=== PATIENT | male | born 1960 | race Caucasian/White ===

== ENCOUNTER → 2016-10-18 | Outpatient (CLI) | payer MEDICARE ==
--- NOTE | 2016-10-18 16:59 | PN ---
DATE OF SERVICE: 10/18/2016 This patient is a 56-year-old gentleman who has been followed in the sleep center for treatment of severe obstructive sleep apnea/hypopnea syndrome. The last time I saw the patient was about 3 years ago. Patient lost weight; his weight is down from 291 pounds to 264 pounds. He continues to use his BiPAP equipment every night for the whole night. I reviewed his previous results of titration and recommendation. I recommended BiPAP 22/18, which is in quite a high range, but the patient feels comfortable with the machine, and according to his there is no snoring with the machine. Walford Sleepiness Scale today is 8, which is within acceptable range. MEDICATIONS: 1. Glucophage. 2. Lopressor. 3. Venlafaxine. 4. Pepcid. 5. Xarelto. 6. Catapres. 7. Vasotec. 8. Reglan. 9. Glucotrol. 10. Lipitor. 11. Januvia. 12. Claritin ( ) PHYSICAL EXAMINATION: Patient in no distress. VITAL SIGNS: BP 141/72, HR 94, RR 16. Height 5 feet 8 inches. Weight 264. BMI 40.0. Neck 18-3/4 inches in circumference. Temperature 98.8. Oxygen saturation at room air 90%. HEENT: PERRLA, EOMI. LUNGS: Clear. HEART: S1, S2 regular. ABDOMEN: Obese, soft, nontender. EXTREMITIES: No edema. Patient walks with a cane. IMPRESSION: 1. Severe obstructive sleep apnea/hypopnea syndrome, clinically controlled with BiPAP at the pressure 22/18 cm of water. 2. Obesity. Patient has lost weight of about 27 pounds, but continues to use his BiPAP equipment without problems. 3. Diabetes mellitus. 4. Status post stroke. 5. Hypertension. 6. Hyperlipidemia. 7. Allergies. 8. History of smoking for about 40 pack-years. 9. Occasional cough, but rarely. PLAN: 1. Continue treatment with BiPAP every night for the whole night. 2. Continue losing weight. 3. Sleep hygiene with regular time in bed for at least 8 hours. 4. No driving if feeling any sleepiness. 5. Prescription for all necessary BiPAP supplies, including mask, tube, filters. Thank you very much for allowing me to participate in the management of your patient. Sincerely, Robb Frederick MD, PhD, FAASM. Diplomat of [place] [employer], Sleep Medicine Board by [employer], [place] [employer]
== END | disposition home or self-care (01) ==

== ENCOUNTER → 2017-11-14 | Outpatient (CLI) | payer MEDICARE ==
--- NOTE | 2017-11-14 15:18 | PN ---
PROGRESS NOTE DATE OF SERVICE: 11/14/2017 57-year-old gentleman has been followed in Sleep Center for treatment of obstructive sleep apnea-hypopnea syndrome. The patient continued to use his BiPAP equipment , but recently started to complain that the pressure is too high. Before pressure was 22/18, but then it was changed to 19/15. Counselor Sleepiness Scale today is 17. I checked the patient's BiPAP unit. The patient basically did not use it for the last month. BiPAP pressure in the machine 19/15 cm of water. Apnea-hypopnea index reading 11.6. The patient changed his weight from 264 pounds down to 249 pounds, which is 15 pounds less than before. MEDICATIONS: Glucophage, Lopressor, venlafaxine, Pepcid, Xarelto, Catapres, Vasotec, Reglan, Glucotrol, Lipitor, Januvia, Claritin. PHYSICAL EXAM: GENERAL Patient in no distress VITAL SIGNS BP 142/72, HR 84, RR 16, height 5 feet 8 inches, weight 249, body mass index 37.8, temperature 97.9, oxygen saturation at room air 94%. HELYNETTE PERYANY, EOMI, evaluation of oropharynx showed low position of soft palate. NECK Supple, no JVD. Thyroid is not palpable. LUNGS Clear to percussion and to auscultation. Good air exchange. No wheezing or rhonchi. HEART S1, S2 regular. No murmurs, gallops, or rubs. ABDOMEN Obese. Soft and nontender. Bowel sounds are present. No organomegaly appreciated. EXTREMITIES No clubbing or cyanosis. RAZOR SHARPENER Awake, alert, and oriented X3. Cranial nerves 2 to 7 intact. There is no fasciculation or atrophy. noted. No focal deficits observed. IMPRESSION: 1. Obstructive sleep apnea-hypopnea syndrome. Recently patient had some problem with BiPAP secondary to difficulties to use equipment because of the pressure. He feels that the pressure is too high and he lost about 15 pounds of weight. With losing weight pressure may need to be decreased. At the same time with the present pressure 19/15, apnea-hypopnea index is 11.6. 3. Obesity. 4. Diabetes mellitus. 5. Status post stroke. 6. Hypertension. 7. Hyperlipidemia. 8. Allergy. 9. History of smoking for more than 40 pack years. PLAN: 1. I changed regimen over the machine to auto regimen with the inspiratory maximal pressure of 20 and end-expiratory minimal pressure 9. 2. Patient will continue to use his BiPAP equipment every night. 3. Losing weight. 4. Sleep hygiene with regular time in bed for at least 8 hours. 5. Patient does not drive since stroke. 6. Followup visit in 3 months. If patient still has problems, we may consider to repeat BiPAP titration. Thank you very much for allowing me to participate in management of your patient. Sincerely, Robb Frederick MD, PhD, FAASM Diplomat of [place] [employer] [place] [employer] Tax Examiner of [facility] [place] MMODL / PIERREN: [id number] / [email or web address]
== END | disposition home or self-care (01) ==
LOC: SLEEP 13:41
PROVIDERS: ATTEND Internal Medicine
DX: G47.33 Obstructive sleep apnea (adult) (pediatric) (principal); E66.9 Obesity, unspecified; I10 Essential (primary) hypertension; E78.5 Hyperlipidemia, unspecified; E11.9 Type 2 diabetes mellitus without complications; T78.40XA Allergy, unspecified, initial encounter; Z99.89 Dependence on other enabling machines and devices; Z86.73 Personal history of transient ischemic attack (TIA), and cerebral infarction without residual deficits; Z87.891 Personal history of nicotine dependence; Z79.84 Long term (current) use of oral hypoglycemic drugs; Z79.899 Other long term (current) drug therapy; Z79.01 Long term (current) use of anticoagulants

== ENCOUNTER → 2020-05-02 | Outpatient (CLI) | payer MEDICARE ==
--- NOTE | 2020-05-02 13:37 | US ---
EXAMINATION TYPE: US kidneys/renal and bladder DATE OF EXAM: 05/02/2020 COMPARISON: NONE CLINICAL HISTORY: N18.3 CKD. EXAM MEASUREMENTS: Right Kidney: 11.1 x 4.9 x 5.1 cm Left Kidney: 11.0 x 6.2 x 6.5 cm Right Kidney: No hydronephrosis or masses seen Left Kidney: Severe hydronephrosis visualized Bladder: Not fully distended, wnl as visualized Bilateral Jets seen: Right jet visualized There is hydronephrosis in the left kidney. No nephrolithiasis is seen. No masses are identified. The urinary bladder is anechoic. Right ureteral jet seen. IMPRESSION: 1. Marked left hydronephrosis.
== END | disposition home or self-care (01) ==
LOC: RADUSWWP 12:28
PROVIDERS: ATTEND Family Medicine
DX: N13.30 Unspecified hydronephrosis (principal); N18.3 Chronic kidney disease, stage 3 (moderate)
CPT/HCPCS: 76770

== ENCOUNTER → 2020-05-12 | Outpatient (CLI) | payer MEDICARE, OTHER ==
--- NOTE | 2020-05-12 13:35 | CT ---
EXAMINATION TYPE: CT abdomen pelvis wo con DATE OF EXAM: 05/12/2020 COMPARISON: Ultrasound kidneys 05/02/2020. CT abdomen pelvis 10/29/2012. HISTORY: Hydronephrosis TECHNIQUE: Helical acquisition of images was performed from the lung bases through the pelvis. FINDINGS: LUNG BASES: No focal consolidation or pleural effusion. Cardiac size normal. Calcified coronary arter y disease. No pericardial effusion. LIVER: Mildly fatty liver. Hepatomegaly measuring 21 cm in cranial caudal dimension. BILIARY SYSTEM: Cholelithiasis. No intrahepatic or extrahepatic biliary ductal dilatation. PANCREAS: No peripancreatic stranding. SPLEEN: Motion artifact. Not enlarged. ADRENALS: Normal. KIDNEYS: Severe left hydronephrosis and proximal hydroureter. Mild perinephric inflammatory stranding on the left. There is an obstructing 12 mm calculus within the left proximal ureter. No right hydron ephrosis. BOWEL: No evidence of bowel obstruction. PERITONEUM: No free air is visualized. No free fluid. Fat-containing supraumbilical midline ventral hernia. Herniorrhaphy changes of the left abdominal wall. ADENOPATHY: No lymphadenopathy. PELVIS: Urinary bladder incompletely distended. No calculi within the bladder. VASCULATURE: No abdominal aortic aneurysm. Marked calcified atherosclerotic disease. MUSCULOSKELETAL: Intramuscular lipoma of the right buttocks redemonstrated. Degenerative changes of the spine. Osteopenia. IMPRESSION: 1. Obstructing 12 mm left proximal ureteral calculus. Severe left hydronephrosis redemonstrated from 05/02/2020 ultrasound comparison. 2. Cholelithiasis. 3. Mild fatty liver and hepatomegaly. Dr. Vandana Scott discussed findings with Brianne Mazariegos MA at Dr. Zakia Gonzalez's office via the ph one on 05/12/2020 at 1:30 PM, and results were acknowledged.
== END | disposition home or self-care (01) ==
LOC: RADCTMAIN 12:35
PROVIDERS: ATTEND Urology
DX: N13.2 Hydronephrosis with renal and ureteral calculous obstruction (principal); K80.20 Calculus of gallbladder without cholecystitis without obstruction; K76.0 Fatty (change of) liver, not elsewhere classified; R16.0 Hepatomegaly, not elsewhere classified
CPT/HCPCS: 74176

== ENCOUNTER → 2020-05-26 | Outpatient (CLI) | payer MEDICARE ==
[2020-05-26 13:58] LABS: Anisocytosis Slight; Basophils % (A) 0 %; Eosinophils # (A) 0.2 k/uL (0-0.7); Eosinophils % (A) 2 %; HCT 37.7 % (39.0-53.0); HGB 11.7 gm/dL (13.0-17.5); Hypochromasia Slight; Lymphocytes # (A) 1.7 k/uL (1.0-4.8); Lymphocytes % (A) 20 %; MCH 32.1 pg (25.0-35.0); MCHC 31.1 g/dL (31.0-37.0); MCV 103.4 fL (80.0-100.0); Macrocytosis Moderate; Mean Platelet Volume 7.1; Monocytes # (A) 0.4 k/uL (0-1.0); Monocytes % (A) 5 %; Neutrophils # (A) 6.1 k/uL (1.3-7.7); Neutrophils % (A) 70 %; Platelet Count 351 k/uL (150-450); RBC 3.65 m/uL (4.30-5.90); WBC 8.6 k/uL (3.8-10.6)
[2020-05-26 14:02] LABS: Appearance,Urine Clear (Clear); Bilirubin,Urine Negative (Negative); Blood,Urine Trace (Negative); Color,Urine Light Yellow; Glucose,Urine (UA) Negative (Negative); Ketones,Urine Negative (Negative); Leukocyte Esterase,Urine Negative (Negative); Nitrite,Urine Negative (Negative); PH, Urine 6.5 (5.0-8.0); Protein,Urine Negative (Negative); RBC,Urine 2 /hpf (0-5); Urobilinogen,Urine <2.0 mg/dL (<2.0); WBC,Urine <1 /hpf (0-5)
[2020-05-26 14:14] LABS: Calcium 8.5 mg/dL (8.4-10.2)
[2020-05-26 14:44] LABS: Potassium 6.4 mmol/L (3.5-5.1)
== END | disposition home or self-care (01) ==
LOC: LABPAT 11:52
PROVIDERS: ATTEND Urology
DX: Z01.818 Encounter for other preprocedural examination (principal); N20.1 Calculus of ureter; E11.9 Type 2 diabetes mellitus without complications; R58 Hemorrhage, not elsewhere classified; R31.29 Other microscopic hematuria
CPT/HCPCS: 36415; 80048; 81001; 85025; 87086

== ENCOUNTER 2020-06-02 10:09 | Day surgery (SDC) | payer MEDICARE ==
[2020-05-26 15:29] VITALS: BMI 35.9
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
[~2020-06-02 10:09] MED LIST: DEXAMETHASONE SOD PHOSPHATE 10 MG/ML 1 ML VIAL IV ONE; HYDROmorphone 0.5 MG/0.5 ML SYRINGE IVP PRN; LACTATED RINGERS 1,000 ML IV SCH; ONDANSETRON 4 MG/2 ML VIAL IVP ONE
[2020-06-02] MEDS ORDERED: ONDANSETRON 4 MG/2 ML VIAL ONE (11:06)
--- NOTE | 2020-06-02 11:19 | XR ---
EXAMINATION TYPE: XR KUB DATE OF EXAM: 06/02/2020 11:05 AM CLINICAL HISTORY: Kidney stones. Prelithotripsy. TECHNIQUE: Single supine KUB image of the abdomen is obtained. COMPARISON: Most recent CT May 12, 2020. FINDINGS: Stable position of obstructing 16 mm calculus left L3-L4 level in the proximal left ureter. Redemonstration of calcified gallstones right upper quadrant. Overall nonobstructive bowel gas pattern. Some vascular calcification throughout the pelvis is redemo nstrated. IMPRESSION: As above.
[2020-06-02 11:27] LABS: Glucose,Whole Blood 133 mg/dL (75-99)
[2020-06-02] MEDS ORDERED: LIDOCAINE 1% (10MG/ML) FOR IV START INTRADERMA ONE (11:30)
[2020-06-02] MEDS ORDERED: INSULIN REGULAR 100 UNIT/ML VIAL IV ONE (12:10)
[2020-06-02] MEDS ORDERED: DEXTROSE 50% SYRINGE 50 ML IVP ONE (12:10)
[2020-06-02] MEDS ORDERED: ALBUTEROL NEB (CONC) 2.5 MG/0.5 ML INHALATION ONE (12:10)
[2020-06-02 12:23] LABS: Prothrombin Time 10.3 sec (9.0-12.0)
[2020-06-02] MEDS ORDERED: CALCIUM GLUCONATE 1 GM in SODIUM CHLORIDE 0.9% 100 ML IVPB ONE (12:30)
[2020-06-02 12:51] LABS: Glucose,Whole Blood 245 mg/dL (75-99)
[2020-06-02 16:23] LABS: Glucose,Whole Blood 177 mg/dL (75-99)
[2020-06-02] MEDS ORDERED: LABETALOL 5 MG/ML VIAL MDV ONE (17:47)
[2020-06-02] MEDS ORDERED: LIDOCAINE 1% INJ 10MG/ML (20 ML MDV) ONE (17:47)
[2020-06-02] MEDS ORDERED: ROCURONIUM BROMIDE 10 MG/ML 5 ML VIAL IV ONE (17:47)
[2020-06-02] MEDS ORDERED: PROPOFOL 10 MG/ML 20 ML VIAL IV ONE (17:47)
[2020-06-02] MEDS ORDERED: HYDROmorphone (PF) 1 MG/ML ONE (17:47)
[2020-06-02] MEDS ORDERED: SUCCINYLCHOLINE CHLORIDE VIAL 200 MG/10 ML VIAL IV ONE (17:47)
[2020-06-02] MEDS ORDERED: fentaNYL (PF) 50 MCG/ML 2 ML AMP ONE (17:47)
[2020-06-02] MEDS ORDERED: MIDAZOLAM 2 MG/2 ML VIAL ONE (17:47)
[2020-06-02] MEDS ORDERED: IOPAMIDOL-300 50ML BTL MISCELLANE ONE ×2 (18:09)
[2020-06-02 19:00] LABS: Glucose,Whole Blood 204 mg/dL (75-99)
--- NOTE | 2020-06-02 19:16 | P.OP ---
Date of Procedure: 06/02/20 Preoperative Diagnosis: Left ureteral calculi Postoperative Diagnosis: Same Procedure(s) Performed: Cystoscopy, left ureteroscopy, retrograde pyelogram, stent placement Implants: 6-Algerian by 26 cm stent Anesthesia: ANA Surgeon: Armando Benítez Estimated Blood Loss (ml): 5 Pathology: none sent Condition: stable Disposition: PACU Indications for Procedure: Mr Juárez is 60 yo male with hx of 1.2 cm left sided ureteral stone, I disussed with him surgical option including ureteroscopy, ESWL and PCNL. He agreed to proceed with left sided ureteroscopy. . risk and benefit of the surgery were discussed with her. I discussed the risk of bleeding, infection and injury to the ureter. I also discussed risk from anesthesia. He understood all risks and agreed to proceed Operative Findings: Stone and the mid ureter completely impacted, very little contrast seen past the stone, pinpoint ureteral opening at the site of stone impaction Description of Procedure: Patient was brought to the operating room, general anesthesia was induced. He was prepped and draped in sterile fashion a placemed in dorsal lithotomy position. Cystoscopy fitted with 21 sheath was inserted per urethra, cystoscopy was performed showed no abnormality within the bladder. Attention was then carried to the left ureteral orifice which was intubated with a open- ended catheter, retrograde pyelogram was performed which showed a filling defect at the level of the stone and no contrast was seen past the stone. At this time the catheter was removed and a semirigid ureteroscope was inserted, and was advanced up the left ureteral orifice, and into the site of stone impaction. Of note that area was only a pinpoint ureteral opening. I attempted to pass a sensor wire but resistance was met at the stone. Reterograde pyelogram was performed through the scope and some contrast was seen past the stone. At this time I switched to a glide wire and I was able to advance the glide wire past the stone and into the renal pelvis. The ureteroscope was withdrawn with the wire in place. The 6-Algerian open-ended catheter was advanced over the wire and passed the stone. Next the sensor wire was exchanged for the Glidewire. At t his time a 6-Algerian by 26 cm stent which was passed over the wire, the proximal curl was visualized on fluoroscopy and distal curl was visualized using the cystoscope. there was return of cloudy urine that was noticed from the stent. a this time the patient was awakened from anesthesia and taken recovery in stable condition
[2020-06-02] MEDS ORDERED: HYDROcodone/APAP 5-325MG 1 EACH TAB PO PRN (19:45)
[2020-06-02 20:45] VITALS: RESP 18
[2020-06-02 21:09] LABS: Glucose,Whole Blood 237 mg/dL (75-99)
[2020-06-02 22:32] VITALS: BP 145/74; PULSE 76; TEMP 97.8
--- NOTE | 2020-06-03 08:44 | FL ---
Fluoroscopy INDICATION: Pain FINDINGS: Fluoroscopy time: 1 minute 22 seconds. Images obtained: 1. IMPRESSIONS: 1. Documentation of fluoroscopy.
== END 2020-06-02 22:20 | disposition home or self-care (01) ==
LOC: OR 10:09 → 1SOBS 18:53 → OR 22:20
PROVIDERS: ATTEND Urology
DX: N20.1 Calculus of ureter (principal); I48.91 Unspecified atrial fibrillation; J44.9 Chronic obstructive pulmonary disease, unspecified; E11.9 Type 2 diabetes mellitus without complications; K21.9 Gastro-esophageal reflux disease without esophagitis; E78.5 Hyperlipidemia, unspecified; I10 Essential (primary) hypertension; R41.3 Other amnesia; G47.30 Sleep apnea, unspecified; Z99.89 Dependence on other enabling machines and devices; I69.398 Other sequelae of cerebral infarction; H54.61 Unqualified visual loss, right eye, normal vision left eye; R26.81 Unsteadiness on feet; K44.9 Diaphragmatic hernia without obstruction or gangrene; Z87.442 Personal history of urinary calculi; N28.9 Disorder of kidney and ureter, unspecified; Z86.14 Personal history of Methicillin resistant Staphylococcus aureus infection; Z98.42 Cataract extraction status, left eye; Z98.41 Cataract extraction status, right eye; F17.200 Nicotine dependence, unspecified, uncomplicated; Z79.84 Long term (current) use of oral hypoglycemic drugs; Z79.02 Long term (current) use of antithrombotics/antiplatelets; Z79.899 Other long term (current) drug therapy; E78.49 Other hyperlipidemia; Z98.890 Other specified postprocedural states
CPT/HCPCS: 52332; 94640; 84132; 85610; 74420; 74018; C2625; C1758; C1769; J2250; J0330; J1100; J0690; J2405; J2001; J3010; J1170; J0610; J2704; Q9967; 93005

== ENCOUNTER 2020-06-30 12:25 | Observation (INO) | payer MEDICARE ==
[2020-06-29 11:42] VITALS: BMI 35.9
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
[~2020-06-30 12:25] MED LIST changes: -LACTATED RINGERS 1,000 ML IV SCH; +LIDOCAINE 1% (10MG/ML) FOR IV START INTRADERMA PRN; -ONDANSETRON 4 MG/2 ML VIAL IVP ONE; +ONDANSETRON 4 MG/2 ML VIAL IVP PRN
--- NOTE | 2020-06-30 13:02 | XR ---
EXAMINATION TYPE: XR KUB DATE OF EXAM: 06/30/2020 12:41 PM CLINICAL HISTORY: Hydronephrosis and left ureter stent. TECHNIQUE: Two supine KUB images of the abdomen are obtained. COMPARISON: Abdominal x-ray June 02, 2020. CT abdomen and pelvis May 12, 2020. FINDINGS: New double-J left ureter stent. There is persistent 17 mm calculus proximal left ureter pro jecting near superior L4 margin perhaps slight inferior migration from prior studies. No new renal ca lculi. Stable large gallbladder calculi. Vascular calcification left pelvis. Overall nonobstructive bowel gas pattern. Visualized lung bases a re clear. IMPRESSION: As above..
[2020-06-30 13:46] LABS: Glucose,Whole Blood 115 mg/dL (75-99)
[2020-06-30] MEDS: LACTATED RINGERS 1,000 ML IV SCH (13:48)
[2020-06-30] MEDS ORDERED: DEXTROSE 50% SYRINGE 50 ML IVP ONE (14:50)
[2020-06-30] MEDS ORDERED: INSULIN REGULAR 100 UNIT/ML VIAL IV ONE (15:02)
[2020-06-30 15:23] LABS: Glucose,Whole Blood 190 mg/dL (75-99)
[2020-06-30] MEDS ORDERED: SODIUM CHLORIDE 0.9% 1,000 ML IV ONE ×2 (16:13)
[2020-06-30] MEDS ORDERED: NEOSTIGMINE 1 MG/ML 10 ML VIAL ONE (16:17)
[2020-06-30] MEDS ORDERED: MIDAZOLAM 2 MG/2 ML VIAL ONE (16:17)
[2020-06-30] MEDS ORDERED: GLYCOPYRROLATE 0.2 MG/ML 2 ML VIAL ONE (16:17)
[2020-06-30] MEDS ORDERED: LABETALOL 5 MG/ML VIAL MDV ONE (16:17)
[2020-06-30] MEDS ORDERED: LIDOCAINE 1% INJ 10MG/ML (20 ML MDV) ONE (16:17)
[2020-06-30] MEDS ORDERED: PROPOFOL 10 MG/ML 20 ML VIAL IV ONE (16:17)
[2020-06-30] MEDS ORDERED: ROCURONIUM 10 MG/ML (5 ML VIAL) IV ONE (16:17)
[2020-06-30] MEDS ORDERED: fentaNYL (PF) 50 MCG/ML 2 ML AMP ONE (16:17)
[2020-06-30] MEDS ORDERED: IOPAMIDOL-370 50ML BTL MISCELLANE ONE ×2 (17:19)
[2020-06-30] MEDS ORDERED: HYDROcodone/APAP 5-325MG 1 EACH TAB PO PRN (18:34)
--- NOTE | 2020-06-30 18:34 | P.OP ---
Date of Procedure: 06/30/20 Preoperative Diagnosis: Left ureteral calculi Postoperative Diagnosis: Left ureteral calculi/Left ureteral stricture Procedure(s) Performed: Cystoscopy, left ureteroscopy, holmium laser lithotripsy , stent exchange Implants: 6-Polish by 26 cm stent Anesthesia: ANA Surgeon: Armando Benítez Estimated Blood Loss (ml): 5 Pathology: none sent Condition: stable Disposition: PACU Indications for Procedure: Mr Juárez is 60 yo male with hx of 1.6 cm left sided proximal ureteral stone, He is S/P sent placement secondary to impacted stone. He presents today with left sided ureteroscopy. Discussed risk of bleeding, infection, injury to the ureter. Also discussed risk from anesthesia. She understood all risks and agreed to proceed with left sided ureteroscopy with holmium laser, stone basketting and stent placement Operative Findings: Large left-sided proximal stone, impacted within the ureter, significant tissues edema and scarring surrounding the stone Description of Procedure: Patient was brought to the operating room, general anesthesia was induced. He was prepped and draped in sterile fashion and placed in dorsal lithotomy position. Cystoscope fitted with a 21 sheath was inserted per urethra. Cystoscopy was performed showed no abnormality. Attention was then carried to the left ureteral orifice, the stent was grasped using the stent grasper and pulled to the meatus. Next a sensor wire was advanced through the stent the stent was removed with the wire in place. Next a semirigid ureteroscope was inserted per urethra and advanced up the left ureteral orifice, significant scar ring and edema was noticed multiple attempts were used to try to advance the ureteroscope but was unable to secondary to the impacted stone. At this time a second sensor wire was advanced through the ureteroscope, I attempted to pass a second wire up into the renal pelvis but resistance was met at the impaction site. At this time the wire was advanced to the stone impaction site and the ureteroscope was withdrawn with the wire in place. Next the 11-13 Fr access sheath was passed over the wire and distally to the stone under fluoroscopy. Next a flexible ureteroscope was inserted through the access sheath. Ureteroscopy was performed which showed similar findings which was significant ureteral edema and thick scar in the ureter. At this time using the holmium laser I attempted to gently laser some of the edematous tissue to see if the stone could be identified, the stone could be felt with the laser fiber but there was significant edema which made visualization limited, additionally the lumen could not be clearly defined given the impaction and the edema. Given this finding decision was made to abort the case and proceed with stent placement. Retrograde pyelogram was performed which showed some contrast going past the stone and into the renal pelvis, which confirm that the wire was indeed in the kidney. There was evidence of contrast extravasation at the site of impaction. A pullback ureteroscopy was performed which showed no injury to the ureter or any ureteral stones. Next a 6-Polish by 26 cm stent was passed over the wire, the proximal curl was visualized on fluoroscopy and distal curl was visualized using the cystoscope. The patient tolerated the procedure well and was taken to PACU in stable condition . Given the impacted stone, he will need a PCNL to address his stone
[2020-06-30] MEDS ORDERED: SODIUM CHLORIDE 0.9% 1,000 ML IV SCH (18:45)
[2020-06-30] MEDS ORDERED: LEVOFLOXACIN 500MG-D5W PMX 500 MG in DEXTROSE/WATER 1 100ML.BAG IVPB ONE (19:00)
[2020-06-30 20:04] LABS: Glucose,Whole Blood 250 mg/dL (75-99)
[2020-06-30] MEDS: cloNIDine HCL 0.1 MG TAB PO SCH (20:27)
[2020-06-30] MEDS: FAMOTIDINE 20 MG TAB PO SCH (20:27)
[2020-06-30] MEDS: METOPROLOL TARTRATE 12.5 MG TAB PO SCH (20:27)
[2020-06-30] MEDS: cilostazoL 100 MG TAB PO SCH (20:28)
[2020-06-30] MEDS: VENLAFAXINE HCL 75 MG TAB PO SCH (20:28)
[2020-06-30 20:43] LABS: Calcium 8.1 mg/dL (8.4-10.2)
[2020-06-30 20:58] LABS: Potassium 6.3 mmol/L (3.5-5.1)
[2020-06-30] MEDS ORDERED: glipiZIDE 10 MG TAB PO SCH (21:00)
[2020-06-30] MEDS ORDERED: ATORVASTATIN 80 MG TAB PO SCH (21:00)
[2020-06-30] MEDS ORDERED: SODIUM POLYSTYRENE SULFONATE 15 GM/60 ML BOTTLE PO STA (21:54)
[2020-06-30] MEDS ORDERED: CALCIUM GLUCONATE 1 GM in SODIUM CHLORIDE 0.9% 100 ML IVPB ONE (21:54)
[2020-07-01] MEDS ORDERED: INSULIN DETEMIR (LEVEMIR) 100 UNIT/ML SYR SQ SCH (00:29)
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
[2020-07-01 01:26] LABS: Glucose,Whole Blood 195 mg/dL (75-99)
[2020-07-01 03:22] LABS: Calcium 8.2 mg/dL (8.4-10.2)
[2020-07-01 03:24] LABS: Potassium 6.1 mmol/L (3.5-5.1)
[2020-07-01] MEDS: LACTATED RINGERS 1,000 ML IV SCH (05:22)
[2020-07-01 06:35] LABS: Glucose,Whole Blood 137 mg/dL (75-99)
[2020-07-01] MEDS ORDERED: INSULIN ASPART (NovoLOG) 100 UNIT/ML VIAL SQ SCH (07:30)
[2020-07-01 08:18] VITALS: BP 156/88; PULSE 87; RESP 20; TEMP 98.9
--- NOTE | 2020-07-01 08:26 | FL ---
Fluoroscopy HISTORY: Left renal stone 2 minute 16 seconds fluoroscopy time supplied to the referring clinician. 2 intraoperative C-arm coby ges document the procedure. See dictated report from urology.
[2020-07-01] MEDS ORDERED: lisinopriL 10 MG TAB PO SCH (09:00)
[2020-07-01] MEDS ORDERED: TAMSULOSIN 0.4 MG CAP.ER.24H PO SCH (09:00)
[2020-07-01] MEDS: cilostazoL 100 MG TAB PO SCH (09:00)
[2020-07-01] MEDS: cloNIDine HCL 0.1 MG TAB PO SCH (09:01)
[2020-07-01] MEDS: FAMOTIDINE 20 MG TAB PO SCH (09:02)
[2020-07-01] MEDS: METOPROLOL TARTRATE 12.5 MG TAB PO SCH (09:02)
[2020-07-01] MEDS: VENLAFAXINE HCL 75 MG TAB PO SCH (09:04)
[2020-07-01 09:18] LABS: Calcium 8.3 mg/dL (8.4-10.2); Potassium 5.3 mmol/L (3.5-5.1)
--- NOTE | 2020-07-01 09:48 | P.PN ---
Subjective Progress Note Date: 07/01/20 Patient is doing well this morning. No acute events noted by nursing staff overnight. Objective - Vital Signs Vital signs: Vital Signs Temp 98.9 F 07/01/20 08:17 Pulse 87 07/01/20 08:17 Resp 20 07/01/20 08:17 BP 156/88 07/01/20 08:17 Pulse Ox 92 L 07/01/20 08:17 Intake & Output 06/30/20 07/01/20 07/01/20 18:59 06:59 18:59 Intake Total 1750 1210 Output Total 10 900 200 Balance 1740 310 -200 Weight 112.7 kg Intake: IV 950 150 Intake, IV Titration 800 800 Amount Sodium Chloride 0.9% 1, 800 800 000 ml @ 50 mls/hr IV . Q20H [facility] Rx#:[id number] Oral 260 Output: Urine 900 200 Estimated Blood Loss 10 Other: Voiding Method Urinal Urinal # Voids 175 2 - Exam General: The patient is awake and alert, in no distress Eye: there is normal conjunctiva bilaterally. Neck: The neck is supple, there is no JVD. Cardiovascular: Normal S1-S2, no S3-S4, no murmurs. Respiratory: Lungs clear to auscultation bilaterally Gastrointestinal: Abdomen is soft, nontender Musculoskeletal: There is no pedal edema. Neurological:. Speech is normal. Skin: Skin is warm and dry - Labs CBC & Chem 7: 07/01/20 08:46 Labs: Abnormal Lab Results - Last 24 Hours (Table) 06/30/20 06/30/20 06/30/20 Range/Units 13:45 13:47 15:21 Sodium (137-145) mmol/L Potassium 5.9 H (3.5-5.1) mmol/L Creatinine (0.66-1.25) mg/dL Glucose (74-99) mg/dL POC Glucose (mg/dL) 115 H 190 H (75-99) mg/dL Calcium (8.4-10.2) mg/dL 06/30/20 06/30/20 06/30/20 Range/Units 15:28 20:03 20:12 Sodium 136 L (137-145) mmol/L Potassium 5.4 H 6.3 H* (3.5-5.1) mmol/L Creatinine 2.20 H (0.66-1.25) mg/dL Glucose 265 H (74-99) mg/dL POC Glucose (mg/dL) 250 H (75-99) mg/dL Calcium 8.1 L (8.4-10.2) mg/dL 07/01/20 07/01/20 07/01/20 Range/Units 01:23 02:38 06:34 Sodium 133 L (137-145) mmol/L Potassium 6.1 H* (3.5-5.1) mmol/L Creatinine 2.13 H (0.66-1.25) mg/dL Glucose 193 H (74-99) mg/dL POC Glucose (mg/dL) 195 H 137 H (75-99) mg/dL Calcium 8.2 L (8.4-10.2) mg/dL 07/01/20 Range/Units 08:46 Sodium 135 L (137-145) mmol/L Potassium 5.3 H (3.5-5.1) mmol/L Creatinine 2.04 H (0.66-1.25) mg/dL Glucose (74-99) mg/dL POC Glucose (mg/dL) (75-99) mg/dL Calcium 8.3 L (8.4-10.2) mg/dL Assessment and Plan Assessment: The patient is a 60-year-old male with a PMH of chronic kidney disease, type II DM, hypertension, hyperlipidemia, COPD, mild cognitive impairment, and history of CVA (on Coumadin) who was admitted for scheduled left sided ureteroscopy. The patient has a history of left-sided ureteral calculus and stricture with stent placement who underwent a stent exchange and a laser lithotripsy. Assessment and Plan Plan: Hyperkalemia, chronic, likely secondary to chronic kidney disease -Discontinue ANTONIO inhibitor -Administered Kayexalate -Repeat potassium level 5.3 Type II DM -Resume home medications and follow-up with PCP as directed HTN -C/w Clonidine home dose -Add Norvasc 5 mg daily to his regimen. Patient has enalapril and lisinopril listed on his home medication and both were discontinued secondary to severe hyperkalemia HLD -C/w home lipitor History of stroke on anticoagulation with Coumadin Chronic kidney disease, at baseline -Advised to follow up with nephrology Ureteral stone status post stenting and lithotripsy -As per urology service Patient is medically cleared for discharge home. Discharge planning per primary team
[2020-07-01 11:38] LABS: Glucose,Whole Blood 68 mg/dL (75-99)
[2020-07-01 11:53] LABS: Glucose,Whole Blood 73 mg/dL (75-99)
--- NOTE | 2020-07-01 12:33 | P.DS ---
Providers Attending physician: Armando Benítez MD Consults: 06/30/20 21:16 Consult Physician Stat Consulting Provider: Ketty Colindres Consult Reason/Comments: Hyperkalemia Do you want consulting provider notified?: Yes Primary care physician: Giovanna [facility] Course: Mr Juárez is 60 yo male with hx of right sided ureteral stone, he underwent right sided ureteroscopy, please see op note dated 06/30/20 for surgery details. He was admitted to the hospital post operatively due to hyperkalemia and pain control. Medicine was consulted for hyperkalemia. His repeat K was WNL, he was cleared for discharge. He was discharged home on POD #1. At time of discharge he was tolerating a diet, and pain was controlled Plan - Discharge Summary Discharge Rx Participant: No New Discharge Prescriptions: New amLODIPine [Norvasc] 5 mg PO DAILY #30 tab Cephalexin [Keflex] 500 mg PO Q8HR #15 cap Continue RX: glipiZIDE [Glucotrol] 10 mg PO BID RX: cloNIDine HCL [Catapres] 0.1 mg PO BID RX: Venlafaxine HCl [Effexor] 150 mg PO BID RX: Metoprolol Tartrate [Lopressor] 37.5 mg PO BID RX: Famotidine [Pepcid] 40 mg PO BID RX: Atorvastatin [Lipitor] 80 mg PO HS RX: Furosemide [Lasix] 20 mg PO Q48H RX: Warfarin [Coumadin] 5 mg PO SUMOWETHFRSA RX: cilostazoL [Pletal] 50 mg PO BID RX: Cholecalciferol [Vitamin D3 (25 Mcg = 1000 Iu)] 2,000 unit PO DAILY RX: Magnesium 500 mg PO QAM RX: Tamsulosin [Flomax] 0.4 mg PO DAILY #7 cap Discontinued Enalapril [Vasotec] 5 mg PO QAM lisinopriL [Zestril] 2.5 mg PO DAILY Discharge Medication List RX: Atorvastatin [Lipitor] 80 mg PO HS 04/06/14 [History] RX: Famotidine [Pepcid] 40 mg PO BID 04/06/14 [History] RX: Metoprolol Tartrate [Lopressor] 37.5 mg PO BID 04/06/14 [History] RX: Venlafaxine HCl [Effexor] 150 mg PO BID 04/06/14 [History] RX: cloNIDine HCL [Catapres] 0.1 mg PO BID 04/06/14 [History] RX: glipiZIDE [Glucotrol] 10 mg PO BID 04/06/14 [History] RX: Cholecalciferol [Vitamin D3 (25 Mcg = 1000 Iu)] 2,000 unit PO DAILY 05/27/20 [History] RX: Furosemide [Lasix] 20 mg PO Q48H 05/27/20 [History] RX: Magnesium 500 mg PO QAM 05/27/20 [History] RX: Warfarin [Coumadin] 5 mg PO SUMOWETHFRSA 05/27/20 [History] RX: cilostazoL [Pletal] 50 mg PO BID 05/27/20 [History] RX: Tamsulosin [Flomax] 0.4 mg PO DAILY #7 cap 06/02/20 [Rx] Cephalexin [Keflex] 500 mg PO Q8HR #15 cap 07/01/20 [Rx] amLODIPine [Norvasc] 5 mg PO DAILY #30 tab 07/01/20 [Rx]
[2020-07-01 14:08] LABS: Hemoglobin A1C 9.3 % (4.0-6.0)
== END 2020-07-01 12:55 | disposition home or self-care (01) ==
LOC: OR 12:25 → 1SOBS 17:43 → OR 07-01 09:31 → INTOOBSV 07-01 09:31 → OBSVTOIN 07-01 09:31 → 1SOBS 07-01 10:50 → OR 07-01 10:50 → 1SOBS 07-01 12:55 → UNDODISOB 07-01 12:55 → UNDODISIN 07-01 12:55 → 1SOBS 07-05 00:25 → OR 07-05 00:25
PROVIDERS: ADMIT Urology; ATTEND Urology
DX: N20.1 Calculus of ureter (principal); E11.22 Type 2 diabetes mellitus with diabetic chronic kidney disease; E78.5 Hyperlipidemia, unspecified; E87.5 Hyperkalemia; F17.210 Nicotine dependence, cigarettes, uncomplicated; I69.312 Visuospatial deficit and spatial neglect following cerebral infarction; I12.9 Hypertensive chronic kidney disease with stage 1 through stage 4 chronic kidney disease, or unspecified chronic kidney disease; J44.9 Chronic obstructive pulmonary disease, unspecified; N18.2 Chronic kidney disease, stage 2 (mild); G47.30 Sleep apnea, unspecified; Z99.89 Dependence on other enabling machines and devices; K44.9 Diaphragmatic hernia without obstruction or gangrene; Z79.01 Long term (current) use of anticoagulants; Z79.02 Long term (current) use of antithrombotics/antiplatelets; Z86.14 Personal history of Methicillin resistant Staphylococcus aureus infection
CPT/HCPCS: 80048 ×2; 84132; 83036; 74420; 74018; G0378 ×3; C2625; C1769; J2250; J1100; J2710; J0690; J2405; J1956; J2001; J3010; J0610; J2704; Q9967

== ENCOUNTER → 2020-08-15 | Outpatient (CLI) | payer MEDICARE ==
[2020-08-15 19:12] LABS: INR 1.98 (0.90-1.11); Prothrombin Time 20.7 sec (9.9-11.9)
[2020-08-15 20:04] LABS: African American GFR (CKD) 38.5 (60.0-200.0); Albumin/Globulin Ratio 1.48 (1.60-3.17); Anion Gap 6.8 mmol/L (4.00-12.00); BUN/Creat Ratio 8.1 Ratio (12.00-20.00); Calcium 8.8 mg/dL (8.7-10.3); Carbon Dioxide 27.2 mmol/L (21.6-31.8); Chol/HDL Ratio 5.2; Globulin 2.7 g/dL (1.6-3.3); LDL Cholesterol,Calculated 66.6 mg/dL (0.0-131.0); Non-African American GFR(CKD) 33.2 (60.0-200.0); Potassium 5.6 mmol/L (3.5-5.5); Total Bilirubin 0.2 mg/dL (0.2-1.2); Total Protein 6.7 g/dL (6.2-8.2); VLDL Calculation 38.4 mg/dL (5.00-40.00)
[2020-08-15 21:07] LABS: Hemoglobin A1C 9.4 % (4.0-6.0)
== END | disposition home or self-care (01) ==
LOC: LABWHC1 10:10
PROVIDERS: ATTEND Family Medicine
DX: E78.00 Pure hypercholesterolemia, unspecified (principal); E78.5 Hyperlipidemia, unspecified; E11.42 Type 2 diabetes mellitus with diabetic polyneuropathy; N20.1 Calculus of ureter; I48.91 Unspecified atrial fibrillation; E16.2 Hypoglycemia, unspecified; R58 Hemorrhage, not elsewhere classified
CPT/HCPCS: 36415; 80053; 80061; 83036; 84443; 85610

== ENCOUNTER → 2020-08-15 | Outpatient (CLI) | payer MEDICARE ==
[2020-08-15 13:15] LABS: Anisocytosis Slight; Basophils # (A) 0.1 k/uL (0-0.2); Basophils % (A) 1 %; Eosinophils # (A) 0.2 k/uL (0-0.7); Eosinophils % (A) 2 %; HCT 41.1 % (39.0-53.0); HGB 13.1 gm/dL (13.0-17.5); Lymphocytes # (A) 2.1 k/uL (1.0-4.8); Lymphocytes % (A) 21 %; MCH 33.7 pg (25.0-35.0); MCHC 31.9 g/dL (31.0-37.0); MCV 105.5 fL (80.0-100.0); Macrocytosis Moderate; Monocytes # (A) 0.6 k/uL (0-1.0); Monocytes % (A) 6 %; Neutrophils # (A) 6.7 k/uL (1.3-7.7); Neutrophils % (A) 68 %; Platelet Count 399 k/uL (150-450); RDW 16.8 % (11.5-15.5); WBC 9.9 k/uL (3.8-10.6)
== END | disposition home or self-care (01) ==
LOC: LABPAT 10:07
PROVIDERS: ATTEND Urology
DX: Z01.818 Encounter for other preprocedural examination (principal); N20.1 Calculus of ureter; R58 Hemorrhage, not elsewhere classified
CPT/HCPCS: 85025

== ENCOUNTER 2020-08-22 10:12 | Inpatient (IN) | payer MEDICARE ==
[2020-08-18 12:43] VITALS: BMI 35.6
--- NOTE | 2020-08-21 23:45 | P.HPIHPCON ---
History of Present Illness H&P Date: 08/22/20 Chief Complaint: left ureteral calculi Mr Juárez is 60 yo male with hx of 1.6 cm left sided proximal ureteral stone, He is S/P sent placement secondary to impacted stone. He underwent left sided ureteroscopy in 06/2020, at that time the stone was still impacted with ureteral tissue growing around the stone. Attempted holmium laser lithotripsy were unsuccessful secondary to that. Given this finding decision was made to proceed with left Sided PCNL. Discussed risk of bleeding, infection, injury to the ureter, injury to nearby organs which includes but not limited to lung, spleen, bowel and kidney. Also discussed risk from anesthesia. He understood all risks and agreed to proceed with left sided PCNL Consent for Procedure: I have explained the operation/procedure to the patient, including the risks, benefits, side effects, alternative therapies (including not receiving the proposed treatment or service), the likelihood of the patient achieving his/her goals, and potential recuperation problems for the procedure/sedation/analgesia, as well as any blood products, if indicated. I also explained to the patient the risks, benefits and side effects of the alternatives, as well as the risks related to not receiving the proposed procedure, care, treatment, or services. 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 Uses cpap. Poor circulation BLE, neuropathy History of Any Multi-Drug Resistant Organisms: MRSA Date of last positivie culture/infection: 2013 MDRO Source:: abd Past Surgical History: Orthopedic Surgery Additional Past Surgical History / Comment(s): ORIF lt upper arm. Feeding tube, stomach surgery w/ exc 1/2 stomach, Bilat cataracts. Cysto, Lt ureteroscopy, lithotripsy, stent exchange 06/30/20 Past Anesthesia/Blood Transfusion Reactions: No Reported Reaction Smoking Status: Current every day smoker - Past Family History Mother Family Medical History: No Reported History Medications and Allergies Home Medications Medication Instructions Recorded Confirmed Type Atorvastatin [Lipitor] 80 mg PO HS 04/06/14 08/18/20 History Famotidine [Pepcid] 40 mg PO BID 04/06/14 08/18/20 History Metoprolol Tartrate [Lopressor] 37.5 mg PO BID 04/06/14 08/18/20 History Venlafaxine HCl [Effexor] 150 mg PO BID 04/06/14 08/18/20 History cloNIDine HCL [Catapres] 0.1 mg PO BID 04/06/14 08/18/20 History glipiZIDE [Glucotrol] 10 mg PO BID 04/06/14 08/18/20 History Cholecalciferol [Vitamin D3 (25 2,000 unit PO DAILY 05/27/20 08/18/20 History Mcg = 1000 Iu)] Magnesium 500 mg PO QAM 05/27/20 08/18/20 History Warfarin [Coumadin] 5 mg PO SUMOWETHFRSA 05/27/20 08/18/20 History cilostazoL [Pletal] 50 mg PO BID 05/27/20 08/18/20 History amLODIPine [Norvasc] 5 mg PO DAILY #30 tab 07/01/20 08/18/20 Rx Allergies Allergy/AdvReac Type Severity Reaction Status Date / Time No Known Allergies Allergy Verified 08/18/20 12:19 Surgical - Exam - General well developed, well nourished, no distress, no pain - Eyes PERRL, normal ocular movement - Respiratory normal expansion, normal respiratory effort - Abdomen Abdomen: soft, non tender - Psychiatric oriented to time, oriented to person, oriented to place Assessment and Plan Assessment: 60 yo male with hx of left sided ureteral stone -OR for Left PCNL
[~2020-08-22 10:12] MED LIST changes: -DEXAMETHASONE SOD PHOSPHATE 10 MG/ML 1 ML VIAL IV ONE; +DEXAMETHASONE SOD PHOSPHATE 4 MG/ML 1 ML VIAL IV ONE; +MIDAZOLAM 2 MG/2 ML VIAL IV PRN; +ONDANSETRON 4 MG/2 ML VIAL IVP ONE; -ONDANSETRON 4 MG/2 ML VIAL IVP PRN
[2020-08-22] MEDS: LACTATED RINGERS 1,000 ML IV SCH (10:52)
[2020-08-22 10:55] LABS: Glucose,Whole Blood 168 mg/dL (75-99)
--- NOTE | 2020-08-22 11:04 | XR ---
KUB HISTORY: Left ureteral calculus Frontal KUB and 2 images correlated prior exam 06/30/2020 Left double-J stent is in place. There is an oval calcification superimposed over the proximal to mid left ureter measuring approximately 15 mm. Multiple probable vascular calcifications are present wit hin the pelvis. Calcifications in the right upper quadrant may be due to cholelithiasis. impression: Stable findings. Left ureteral calculus is present. Cholelithiasis.
[2020-08-22 11:10] LABS: Prothrombin Time 10.4 sec (9.0-12.0)
[2020-08-22] MEDS ORDERED: LIDOCAINE 1% INJ 10MG/ML (20 ML MDV) ONE (11:39)
[2020-08-22] MEDS ORDERED: MIDAZOLAM 2 MG/2 ML VIAL ONE (11:39)
[2020-08-22] MEDS ORDERED: fentaNYL (PF) 50 MCG/ML 2 ML AMP ONE (11:39)
[2020-08-22] MEDS ORDERED: PROPOFOL 10 MG/ML 20 ML VIAL IV ONE (11:39)
[2020-08-22] MEDS ORDERED: ROCURONIUM 10 MG/ML (10 ML VIAL) IV ONE (11:39)
[2020-08-22] MEDS ORDERED: GLYCOPYRROLATE 0.2 MG/ML 2 ML VIAL ONE (11:39)
[2020-08-22] MEDS ORDERED: NEOSTIGMINE 1 MG/ML 10 ML VIAL ONE (11:39)
[2020-08-22] MEDS ORDERED: HYDROmorphone (PF) 1 MG/ML ONE (11:39)
[2020-08-22] MEDS ORDERED: METOPROLOL TARTRATE 5 MG/5 ML VIAL IVP ONE (11:39)
[2020-08-22] MEDS ORDERED: IOPAMIDOL-370 50ML BTL IRRIGATION ONE (12:07)
[2020-08-22] MEDS ORDERED: LACTATED RINGERS 1,000 ML IV ONE ×2 (12:55→16:50)
[2020-08-22] MEDS ORDERED: BUPIVACAINE (PF) 0.5% 30 ML VIAL SQ ONE ×2 (16:38→16:42)
--- NOTE | 2020-08-22 17:03 | P.OP ---
Date of Procedure: 08/22/20 Preoperative Diagnosis: Left ureteral calculi Postoperative Diagnosis: same Procedure(s) Performed: Cystoscopy, left ureteral catheterization, percutaneous nephrolithotomy, antegrade stent placement, and nephrostomy tube placement Implants: 6-Bahamian by 26 cm stent Anesthesia: ANA Surgeon: Armando Benítez Estimated Blood Loss (ml): 5 Pathology: other (Left ureteral calculi) Condition: stable Disposition: PACU Indications for Procedure: Mr Juárez is 60 yo male with hx of 1.6 cm left sided proximal ureteral stone, He is S/P sent placement secondary to impacted stone. He underwent left sided ureteroscopy in 06/2020, at that time the stone was still impacted with ureteral tissue growing around the stone. Attempted holmium laser lithotripsy were unsuccessful secondary to that. Given this finding decision was made to proceed with left Sided PCNL. Discussed risk of bleeding, infection, injury to the ureter, injury to nearby organs which includes but not limited to lung, spleen, bowel and kidney. Also discussed risk from anesthesia. He understood all risks and agreed to proceed with left sided PCNL Operative Findings: Impacted stone in the proximal ureter, with significant ureteral edema and a very friable ureter at that site of impaction, ureteral tissue was overgrowing the kidney stone Description of Procedure: The patient was brought to the operating room, general anesthesia was induced. He was initially placed in a dorsal lithotomy position. Cystoscopy fitted with 21 sheath was inserted per urethra. The ureteral stent was grasped and pulled to the meatus. Next a sensor wire was advanced into the renal pelvis. Next the balloon occluding catheter was advanced over the wire and into the renal pelvis, position was confirmed on fluoroscopy. He was then placed in a prone position and was prepped and draped in sterile fashion. 16-Bahamian Lara catheter was placed. All pressure points were padded. Left percutaneous access was obtained by interventional radiology. Please see Dr. Hannon dictation, for that part of the operation. After access was obtained and a wire was passed up to the bladder. Next a 10-Bahamian dilators were used. A second 0.035 Amplatz stiff wire was passed into the midureter. Next the balloon dilator was passed over the wire and nephrostomy next sheath was passed over the balloon dilator. Next a flexible cystoscope was inserted through the access sheath renoscopy was performed which showed no stones or abnormality within the kidney.. Next the flexibile ureteroscope was advanced to the mid ureter. It it appeared that there was an impacted stone at that site, of note urothelium was covering that stone and pinpoint lumen could be identified. The tissue surrounding the stone impaction was extremely friable. . Next the holmium laser was used to fragment the stone into smaller pieces. caution was taken not to fragment the lumen. Of note the stone was completely impacted and there was urothelium covering the stone and lumen could not be clearly visualized past the stone. After fragmenting the majority of the stone, The stone basket was used to retrieve some of the fragments, which were sent for analysis. After stone was fragmented, clear lumen could not be identified, I was able to advance the ureteroscope past site of an impaction into the distal ureter. There is no additional stones or abnormality within there. Pullback ureteroscopy demonstrated extremely friable tissue at the site of impaction, there was a small false passage close to the site of impaction. Next a second wire was advanced through the area of impaction into the bladder. Next a 6 Fr x 26 cm stent was passed over the wire and into the bladder, the stent curled in the bladder, and proximal curl was seen in the renal pelvis. . Next 16 Bahamian nephrostomy tube was passed over the wire into the renal pelvis. The nephrostomy tube was secured to the skin using 2-0 silk. The Patient tolerated the procedure well, was extubated and taken to PACU in stable condition
[2020-08-22] MEDS ORDERED: ACETAMINOPHEN TAB 325 MG TAB PO PRN (17:11)
[2020-08-22] MEDS ORDERED: ONDANSETRON 4 MG/2 ML VIAL IVP PRN (17:11)
[2020-08-22] MEDS ORDERED: MAG HYDROX/AL HYDROX/SIMETH 30 ML CUP PO PRN (17:11)
[2020-08-22] MEDS ORDERED: HYDROmorphone 0.5 MG/0.5 ML SYRINGE IVP PRN (17:13)
[2020-08-22] MEDS ORDERED: HYDROcodone/APAP 5-325MG 1 EACH TAB PO PRN (17:13)
[2020-08-22 17:31] LABS: Glucose,Whole Blood 208 mg/dL (75-99)
[2020-08-22] MEDS ORDERED: INSULIN ASPART (NovoLOG) 100 UNIT/ML VIAL SQ ONE (17:50)
[2020-08-22 20:46] LABS: Glucose,Whole Blood 215 mg/dL (75-99)
[2020-08-22] MEDS: cloNIDine HCL 0.1 MG TAB PO SCH (20:57)
[2020-08-22] MEDS: glipiZIDE 10 MG TAB PO SCH (20:57)
[2020-08-22] MEDS: FAMOTIDINE 20 MG TAB PO SCH (20:57)
[2020-08-22] MEDS: ATORVASTATIN 80 MG TAB PO SCH (20:57)
[2020-08-22] MEDS: METOPROLOL TARTRATE 12.5 MG TAB PO SCH (20:59)
[2020-08-23] MEDS ORDERED: ceFAZolin 1 GM in SODIUM CHLORIDE 0.9% 100 ML IVPB SCH ×2
[2020-08-23] MEDS: HEPARIN SODIUM,PORCINE 5,000 UNIT/ML 1 ML VIAL SQ SCH ×4 (00:13→23:18)
[2020-08-23] MEDS: LACTATED RINGERS 1,000 ML IV SCH (05:39)
[2020-08-23 07:10] LABS: Glucose,Whole Blood 109 mg/dL (75-99)
[2020-08-23 08:16] LABS: Anisocytosis Slight; HCT 38.2 % (39.0-53.0); HGB 12.5 gm/dL (13.0-17.5); MCH 34.5 pg (25.0-35.0); MCHC 32.6 g/dL (31.0-37.0); MCV 105.9 fL (80.0-100.0); Macrocytosis Moderate; Mean Platelet Volume 6.7; Platelet Count 320 k/uL (150-450); RBC 3.61 m/uL (4.30-5.90); RDW 16.5 % (11.5-15.5); WBC 15.3 k/uL (3.8-10.6)
[2020-08-23] MEDS: METOPROLOL TARTRATE 12.5 MG TAB PO SCH ×2 (08:27→20:28)
[2020-08-23] MEDS: cloNIDine HCL 0.1 MG TAB PO SCH ×2 (08:27→20:28)
[2020-08-23] MEDS: glipiZIDE 10 MG TAB PO SCH ×2 (08:27→20:28)
[2020-08-23] MEDS: FAMOTIDINE 20 MG TAB PO SCH ×2 (08:27→20:28)
[2020-08-23] MEDS: amLODIPine 5 MG TAB PO SCH (08:27)
--- NOTE | 2020-08-23 08:47 | FL ---
EXAMINATION TYPE: FL Perc Nephrostomy New Access DATE OF EXAM: 08/22/2020 COMPARISON: NONE HISTORY: Left ureteral calculus. PROCEDURE: Maximal barrier technique was utilized, hand hygiene obtained with soap and water and alcohol-based h and rub. The skin overlying the left kidney was localized using fluoroscopy and the overlying skin p repped and draped. Skin denia was made with a scalpel. Access was gained under fluoroscopy, following placement of a ureteral occlusion balloon by the referring clinician and instillation of air in the renal collecting system with a 21-gauge needle to left kidney. A suitable posterior calyx was chosen . A 0.018 inch wire was advanced. The access site was dilated, the ureter was selected with a 5 Fr ench Kumpe catheter and 0.035 inch angled Glidewire, access site was upsized, safety wire deployed an d subsequently a sheath was advanced into the renal pelvis following dilation with balloon along the tract. The patient underwent nephrolithotomy by the referring clinician. The patient remained in st able condition without complication. The patient was discharged to observation in the care of anesth esia. 11 minutes 26 seconds fluoroscopy time, 2 intraoperative images document the procedure area IMPRESSION: STATUS POST NEPHROSTOMY PLACEMENT FOR NEPHROLITHOTOMY WITH FLUOROSCOPIC GUIDANCE. THIS PROCEDURE PER FORMED BY THE UNDERSIGNED.
[2020-08-23 11:24] LABS: Glucose,Whole Blood 76 mg/dL (75-99)
[2020-08-23 11:34] LABS: African American GFR (CKD) 46.4 (60.0-200.0); Anion Gap 7.2 mmol/L (4.00-12.00); BUN/Creat Ratio 8.33 Ratio (12.00-20.00); Calcium 8.1 mg/dL (8.7-10.3); Carbon Dioxide 28.8 mmol/L (21.6-31.8); Potassium 4.7 mmol/L (3.5-5.5)
[2020-08-23 18:42] LABS: Glucose,Whole Blood 121 mg/dL (75-99)
[2020-08-23] MEDS: ATORVASTATIN 80 MG TAB PO SCH (20:28)
[2020-08-23] MEDS: VENLAFAXINE HCL 75 MG TAB PO SCH (20:29)
[2020-08-23 20:49] LABS: Glucose,Whole Blood 127 mg/dL (75-99)
--- NOTE | 2020-08-23 21:17 | P.PN ---
Subjective Progress Note Date: 08/23/20 No acute overnight, pain controlled. Tolerating a diet. still requiring oxygen this am Objective - Vital Signs Vital signs: Vital Signs Temp 98.5 F 08/23/20 18:40 Pulse 77 08/23/20 18:40 Resp 19 08/23/20 18:40 BP 175/89 08/23/20 18:40 Pulse Ox 91 L 08/23/20 18:40 Intake & Output 08/23/20 08/23/20 08/24/20 06:59 18:59 06:59 Intake Total 200 Output Total 1550 750 650 Balance -1550 -550 -650 Intake: Oral 200 Output: Drainage 100 100 150 Left Back 100 100 150 Urine 1450 650 250 Uretheral (Espinosa) 500 Other 250 Other: Voiding Method Indwelling Catheter Indwelling Catheter # Voids 3 - Constitutional General appearance: Present: no acute distress - Genitourinary Genitourinary Comment(s): PCN draining blood tinged urine espinosa draining clear yellow urine - Psychiatric Psychiatric: Present: A&O x's 3 - Labs CBC & Chem 7: 08/23/20 07:13 08/23/20 07:13 Labs: Abnormal Lab Results - Last 24 Hours (Table) 08/23/20 08/23/20 08/23/20 Range/Units 07:09 07:13 07:13 WBC 15.3 H (3.8-10.6) k/uL RBC 3.61 L (4.30-5.90) m/uL Hgb 12.5 L (13.0-17.5) gm/dL Hct 38.2 L (39.0-53.0) % MCV 105.9 H (80.0-100.0) fL RDW 16.5 H (11.5-15.5) % Creatinine 1.8 H (0.6-1.5) mg/dL Est GFR (CKD-EPI)AfAm 46.4 L (60.0-200.0) Est GFR (CKD-EPI)NonAf 40.0 L (60.0-200.0) BUN/Creatinine Ratio 8.33 L (12.00-20.00) Ratio POC Glucose (mg/dL) 109 H (75-99) mg/dL Calcium 8.1 L (8.7-10.3) mg/dL 08/23/20 08/23/20 Range/Units 18:40 20:47 WBC (3.8-10.6) k/uL RBC (4.30-5.90) m/uL Hgb (13.0-17.5) gm/dL Hct (39.0-53.0) % MCV (80.0-100.0) fL RDW (11.5-15.5) % Creatinine (0.6-1.5) mg/dL Est GFR (CKD-EPI)AfAm (60.0-200.0) Est GFR (CKD-EPI)NonAf (60.0-200.0) BUN/Creatinine Ratio (12.00-20.00) Ratio POC Glucose (mg/dL) 121 H 127 H (75-99) mg/dL Calcium (8.7-10.3) mg/dL Assessment and Plan Assessment: S/P Left PCNL -D/C espinosa -Wean off oxygen -Plan on discharge home tomorrow
[2020-08-23] MEDS: lisinopriL 10 MG TAB PO SCH (22:07)
[2020-08-24] MEDS: LACTATED RINGERS 1,000 ML IV SCH (04:58)
[2020-08-24 07:01] LABS: Glucose,Whole Blood 73 mg/dL (75-99)
[2020-08-24] MEDS: HEPARIN SODIUM,PORCINE 5,000 UNIT/ML 1 ML VIAL SQ SCH ×3 (07:50→23:27)
[2020-08-24 09:07] LABS: Glucose,Whole Blood 123 mg/dL (75-99)
[2020-08-24] MEDS: FAMOTIDINE 20 MG TAB PO SCH ×2 (09:23→20:38)
[2020-08-24] MEDS: lisinopriL 10 MG TAB PO SCH (09:23)
[2020-08-24] MEDS: METOPROLOL TARTRATE 12.5 MG TAB PO SCH ×2 (09:23→20:38)
[2020-08-24] MEDS: cloNIDine HCL 0.1 MG TAB PO SCH ×2 (09:24→20:38)
[2020-08-24] MEDS: CHOLECALCIFEROL 1,000 UNIT TAB PO SCH (09:25)
[2020-08-24] MEDS: amLODIPine 5 MG TAB PO SCH (09:25)
[2020-08-24] MEDS: glipiZIDE 10 MG TAB PO SCH ×2 (09:25→20:38)
[2020-08-24] MEDS: VENLAFAXINE HCL 75 MG TAB PO SCH ×2 (09:26→20:39)
[2020-08-24 11:34] LABS: Glucose,Whole Blood 102 mg/dL (75-99)
[2020-08-24 14:13] LABS: Anisocytosis Slight; Basophils % (A) 0 %; Eosinophils # (A) 0.1 k/uL (0-0.7); Eosinophils % (A) 1 %; HCT 40.5 % (39.0-53.0); HGB 13.3 gm/dL (13.0-17.5); Lymphocytes # (A) 1.3 k/uL (1.0-4.8); Lymphocytes % (A) 12 %; MCHC 32.8 g/dL (31.0-37.0); MCV 103.7 fL (80.0-100.0); Macrocytosis Moderate; Mean Platelet Volume 6.7; Monocytes # (A) 0.5 k/uL (0-1.0); Monocytes % (A) 5 %; Neutrophils # (A) 8.7 k/uL (1.3-7.7); Neutrophils % (A) 81 %; Platelet Count 330 k/uL (150-450); RDW 16.5 % (11.5-15.5); WBC 10.8 k/uL (3.8-10.6)
[2020-08-24 14:34] LABS: Appearance,Urine Clear (Clear); Bacteria,Urine Rare /hpf; Bilirubin,Urine Negative (Negative); Blood,Urine Moderate (Negative); Color,Urine Yellow; Glucose,Urine (UA) Negative (Negative); Ketones,Urine Negative (Negative); Leukocyte Esterase,Urine Small (Negative); Mucus,Urine Rare /hpf; Nitrite,Urine Negative (Negative); Protein,Urine 1+ (Negative); RBC,Urine 31 /hpf (0-5); Specific Gravity,Urine 1.015 (1.001-1.035); Urobilinogen,Urine <2.0 mg/dL (<2.0); WBC,Urine 7 /hpf (0-5)
[2020-08-24 14:35] LABS: ALT 12 U/L (4-49); AST 22 U/L (17-59); African American GFR (CKD) 54 (>60 ml/min/1.73 sqM); Albumin 3.6 g/dL (3.5-5.0); Albumin/Globulin Ratio 1.1; Alkaline Phosphatase 97 U/L (38-126); Anion Gap 9 mmol/L; Blood Urea Nitrogen 17 mg/dL (9-20); Calcium 8.5 mg/dL (8.4-10.2); Carbon Dioxide 26 mmol/L (22-30); Chloride 98 mmol/L (98-107); Globulin 3.3 g/dL; Glucose 115 mg/dL (74-99); Non-African American GFR(CKD) 46 (>60 ml/min/1.73 sqM); Potassium 3.9 mmol/L (3.5-5.1); Sodium 133 mmol/L (137-145); Total Bilirubin 0.6 mg/dL (0.2-1.3); Total Protein 6.9 g/dL (6.3-8.2)
[2020-08-24 16:39] LABS: Glucose,Whole Blood 94 mg/dL (75-99)
[2020-08-24 20:20] LABS: Glucose,Whole Blood 119 mg/dL (75-99)
[2020-08-24] MEDS: ATORVASTATIN 80 MG TAB PO SCH (20:38)
[2020-08-25] MEDS: LACTATED RINGERS 1,000 ML IV SCH (05:15)
[2020-08-25 06:56] LABS: Glucose,Whole Blood 134 mg/dL (75-99)
[2020-08-25 07:04] VITALS: BP 135/79; PULSE 68; RESP 16; TEMP 98.1
[2020-08-25] MEDS: HEPARIN SODIUM,PORCINE 5,000 UNIT/ML 1 ML VIAL SQ SCH (08:07)
[2020-08-25] MEDS: CHOLECALCIFEROL 1,000 UNIT TAB PO SCH (08:08)
[2020-08-25] MEDS: cloNIDine HCL 0.1 MG TAB PO SCH (08:08)
[2020-08-25] MEDS: METOPROLOL TARTRATE 12.5 MG TAB PO SCH (08:08)
[2020-08-25] MEDS: lisinopriL 10 MG TAB PO SCH (08:08)
[2020-08-25] MEDS: glipiZIDE 10 MG TAB PO SCH (08:08)
[2020-08-25] MEDS: VENLAFAXINE HCL 75 MG TAB PO SCH (08:09)
[2020-08-25] MEDS: amLODIPine 5 MG TAB PO SCH (08:09)
[2020-08-25] MEDS: FAMOTIDINE 20 MG TAB PO SCH (08:09)
--- NOTE | 2020-08-25 09:46 | P.DS ---
Providers Date of admission: 08/24/20 12:02 Attending physician: Armando Benítez MD Consults: 08/23/20 15:49 Consult Physician Routine Consulting Provider: Artur Schilling Consult Reason/Comments: medical management Do you want consulting provider notified?: Yes Primary care physician: Giovanna Jama [facility] Course: Mr Juárez is 60 yo male with hx of left ureteral stone, He underwent left sided PCNL on 08/22, please see op note dated 08/22 for surgery details. Patient admitted to the floor post operatively. His espinosa was removed on POD #1. Patient required oxygen post operatively, he was weaned off of the oxygen on POD #3. He was discharged home with PCN on POD #3. At time of discharge he was tolerating a diet, ambulating and pain was well controlled. He urine was clear from the PCN. He will f/u in one week for PCN removal Plan - Discharge Summary Discharge Rx Participant: No New Discharge Prescriptions: No Action glipiZIDE [Glucotrol] 10 mg PO BID cloNIDine HCL [Catapres] 0.1 mg PO BID Venlafaxine HCl [Effexor] 150 mg PO BID Metoprolol Tartrate [Lopressor] 37.5 mg PO BID Famotidine [Pepcid] 40 mg PO BID Atorvastatin [Lipitor] 80 mg PO HS Warfarin [Coumadin] 5 mg PO SUMOWETHFRSA cilostazoL [Pletal] 50 mg PO BID Cholecalciferol [Vitamin D3 (25 Mcg = 1000 Iu)] 2,000 unit PO DAILY Magnesium 500 mg PO QAM amLODIPine [Norvasc] 5 mg PO DAILY #30 tab Discharge Medication List Atorvastatin [Lipitor] 80 mg PO HS 04/06/14 [History] Famotidine [Pepcid] 40 mg PO BID 04/06/14 [History] Metoprolol Tartrate [Lopressor] 37.5 mg PO BID 04/06/14 [History] Venlafaxine HCl [Effexor] 150 mg PO BID 04/06/14 [History] cloNIDine HCL [Catapres] 0.1 mg PO BID 04/06/14 [History] glipiZIDE [Glucotrol] 10 mg PO BID 04/06/14 [History] Cholecalciferol [Vitamin D3 (25 Mcg = 1000 Iu)] 2,000 unit PO DAILY 05/27/20 [History] Magnesium 500 mg PO QAM 05/27/20 [History] Warfarin [Coumadin] 5 mg PO SUMOWETHFRSA 05/27/20 [History] cilostazoL [Pletal] 50 mg PO BID 05/27/20 [History] amLODIPine [Norvasc] 5 mg PO DAILY #30 tab 07/01/20 [Rx]
--- NOTE | 2020-08-25 09:47 | P.PN ---
Progress Note - Text Progress Note Date: 08/24/20 POD #2 S/P L PCNL, doing well since surgery, pain controlled, urine clear from PCN Still requiring oxygen this am A/P S/P L PCNL -Wean off oxygen -Ambulate
[2020-08-25 11:26] LABS: Glucose,Whole Blood 125 mg/dL (75-99)
--- NOTE | 2020-08-25 13:43 | P.CONS ---
History of Present Illness - Reason for Consult Consult date: 08/24/20 - History of Present Illness Everett Juárez, is a 60-year-old male, patient of Dr Jama, who was admitted to [facility] by Dr Jeyson Koehler, for intervention for impacted stone in the proximal left ureter, patient underwent cystoscopy, left ureteral catheterization, percutaneous nephrolithotomy, antegrade stent placement, and nephrostomy tube placement, he was admitted to the medical floor postprocedure consultation was requested for management while hospitalized. On review of system patient is feeling well he denies any symptoms there is no fever or chills no headache or dizziness no chest pain no shortness of breath no cough no nausea or vomiting no abdominal pain no diarrhea and no urinary sy mptoms. His past medical history is significant for hypertension, hyperlipidemia, etk-[id number]-[id number] diabetes mellitus, and depression. 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 Uses cpap. Poor circulation BLE, neuropathy History of Any Multi-Drug Resistant Organisms: MRSA Year Discovered:: 2013 MDRO Source:: abd Past Surgical History: Orthopedic Surgery Additional Past Surgical History / Comment(s): ORIF lt upper arm. Feeding tube, stomach surgery w/ exc 1/2 stomach, Bilat cataracts. Cysto, Lt ureteroscopy, lithotripsy, stent exchange 06/30/20 Past Anesthesia/Blood Transfusion Reactions: No Reported Reaction Past Psychological History: Depression Additional Psychological History / Comment(s): loss of memory from stroke Smoking Status: Current every day smoker Past Alcohol Use History: None Reported Additional Past Alcohol Use History / Comment(s): has smoked for 30+ yrs, < 1 PPD Past Drug Use History: None Reported Additional Drug Use History / Comment(s): occ use - Past Family History Mother Family Medical History: No Reported History Medications and Allergies Home Medications Medication Instructions Recorded Confirmed Type Atorvastatin [Lipitor] 80 mg PO HS 04/06/14 08/22/20 History Famotidine [Pepcid] 40 mg PO BID 04/06/14 08/22/20 History Metoprolol Tartrate [Lopressor] 37.5 mg PO BID 04/06/14 08/22/20 History Venlafaxine HCl [Effexor] 150 mg PO BID 04/06/14 08/22/20 History cloNIDine HCL [Catapres] 0.1 mg PO BID 04/06/14 08/22/20 History glipiZIDE [Glucotrol] 10 mg PO BID 04/06/14 08/22/20 History Cholecalciferol [Vitamin D3 (25 2,000 unit PO DAILY 05/27/20 08/22/20 History Mcg = 1000 Iu)] Magnesium 500 mg PO QAM 05/27/20 08/22/20 History Warfarin [Coumadin] 5 mg PO SUMOWETHFRSA 05/27/20 08/22/20 History cilostazoL [Pletal] 50 mg PO BID 05/27/20 08/22/20 History amLODIPine [Norvasc] 5 mg PO DAILY #30 tab 07/01/20 08/22/20 Rx Cephalexin [Keflex] 500 mg PO Q8HR #15 cap 08/25/20 Rx traMADol HCL [Ultram] 50 mg PO Q6HR PRN 3 Days #8 tab 08/25/20 Rx Allergies Allergy/AdvReac Type Severity Reaction Status Date / Time No Known Allergies Allergy Verified 08/22/20 11:08 Physical Exam Vitals: Vital Signs Temp Pulse Resp BP Pulse Ox 08/24/20 13:28 93 L 08/24/20 07:56 97.9 F 64 14 166/92 08/24/20 02:55 98.0 F 64 17 155/91 92 L 08/23/20 21:55 81 172/82 94 L 08/23/20 18:40 98.5 F 77 19 175/89 91 L 08/23/20 15:00 98.7 F 95 16 145/77 95 08/23/20 13:54 92 L Intake and Output 08/23/20 08/24/20 08/24/20 22:59 06:59 14:59 Output Total 650 2100 380 Balance -650 -2100 -380 Output: Drainage 150 650 180 Left Back 150 650 180 Urine 250 1250 200 Other 250 200 Other: Voiding Method Urinal Urinal Urinal # Voids 2 In general patient is alert and oriented 3 in no distress HEENT head normocephalic and atraumatic Neck is supple no JVD no goiter no lymphadenopathy Chest exam reveals a few scattered crackles no wheezing Cardiac exam reveals regular heart sounds S1 and S2 no gallops no murmurs Abdomen is soft nontender no organomegaly with normal bowel sounds Extremity exam reveals no edema no cyanosis or clubbing Neurological examination reveals no gross focal deficit Results CBC & Chem 7: 08/24/20 13:59 08/24/20 13:59 Labs: Abnormal Lab Results - Last 24 Hours (Table) 08/23/20 08/23/20 08/24/20 Range/Units 18:40 20:47 06:59 POC Glucose (mg/dL) 121 H 127 H 73 L (75-99) mg/dL 08/24/20 08/24/20 Range/Units 09:06 11:33 POC Glucose (mg/dL) 123 H 102 H (75-99) mg/dL Assessment and Plan Plan: 1. Left ureteral stone status post intervention as above 2. Underlying history of diabetes Thang to his home medication resume monitor glucose level and cover with insulin sliding scale if needed 3. Underlying history of hypertension 4. Underlying history of hyperlipidemia 5. Leukocytosis white blood count 15.4 yesterday will recheck labs today continue with cefazolin 1 g IV every 8 hours 6. Underlying history of depression maintained on Effexor continue Medication and labs reviewed and reordered continue current management will follow during this hospitalization
== END 2020-08-25 13:55 | disposition home or self-care (01) | DRG 661 ==
LOC: OR 10:12 → 4SSUR 15:24 → OR 08-24 12:02 → 4SSUR 08-24 12:02
PROVIDERS: ADMIT Urology; ATTEND Urology
PROC: 0T9430Z Drainage of Left Kidney Pelvis with Drainage Device, Percutaneous Approach (ICD-10-PCS; 2020-08-22)
PROC: 0T778DZ Dilation of Left Ureter with Intraluminal Device, Via Natural or Artificial Opening Endoscopic (ICD-10-PCS; principal; 2020-08-22 12:00)
PROC: 0TC78ZZ Extirpation of Matter from Left Ureter, Via Natural or Artificial Opening Endoscopic (ICD-10-PCS; 2020-08-22 12:00)
DX: N20.1 Calculus of ureter (principal); I48.91 Unspecified atrial fibrillation; E11.42 Type 2 diabetes mellitus with diabetic polyneuropathy; J44.9 Chronic obstructive pulmonary disease, unspecified; I69.311 Memory deficit following cerebral infarction; I10 Essential (primary) hypertension; E78.5 Hyperlipidemia, unspecified; F32.9 Major depressive disorder, single episode, unspecified; D72.829 Elevated white blood cell count, unspecified; K21.9 Gastro-esophageal reflux disease without esophagitis; M19.90 Unspecified osteoarthritis, unspecified site; G47.30 Sleep apnea, unspecified; H54.61 Unqualified visual loss, right eye, normal vision left eye; K44.9 Diaphragmatic hernia without obstruction or gangrene; F17.210 Nicotine dependence, cigarettes, uncomplicated; Z79.01 Long term (current) use of anticoagulants; Z79.84 Long term (current) use of oral hypoglycemic drugs; Z79.899 Other long term (current) drug therapy; Z79.02 Long term (current) use of antithrombotics/antiplatelets; Z87.442 Personal history of urinary calculi; Z86.14 Personal history of Methicillin resistant Staphylococcus aureus infection; Z98.890 Other specified postprocedural states; Z98.42 Cataract extraction status, left eye; Z98.41 Cataract extraction status, right eye; Z90.3 Acquired absence of stomach [part of]
CPT/HCPCS: 50432; 74018; 80048; 80053; 81001; 82365; 84132; 85025; 85027; 85610; 86850; 86900; 86901

== ENCOUNTER → 2020-10-12 | Outpatient (CLI) | payer MEDICARE ==
--- NOTE | 2020-10-12 10:02 | US ---
EXAMINATION TYPE: US kidneys/renal and bladder DATE OF EXAM: 10/12/2020 COMPARISON: US & CT May 12, 2020 CLINICAL HISTORY: N20.1 Calculus of ureter. EXAM MEASUREMENTS: Right Kidney: 11.6 x 4.8 x 6.0 cm Left Kidney: 10.6 x 5.1 x 6.8 cm Right Kidney: No hydronephrosis or masses seen Left Kidney: moderate to severe hydronephrosis noted Bladder: wnl Bilateral Jets seen: only right jet seen There is no evidence for hydronephrosis at this point in time. No nephrolithiasis is seen. No fernando s are identified on images saved. The urinary bladder is greatly distended. Bilateral ureteral jets are not seen. IMPRESSION: Persistent moderate to severe left-sided hydronephrosis, correlate clinically for retaine d ureter stone or stone fragments.
== END | disposition home or self-care (01) ==
LOC: RADUSWWP 09:21
PROVIDERS: ATTEND Urology
DX: N13.30 Unspecified hydronephrosis (principal)
CPT/HCPCS: 76770

== ENCOUNTER → 2020-11-14 | Outpatient (CLI) | payer MEDICARE ==
--- NOTE | 2020-11-14 13:02 | CT ---
EXAMINATION TYPE: CT abdomen pelvis wo con DATE OF EXAM: 11/14/2020 COMPARISON: May 12, 2020 HISTORY: Left sided pain post renal stone removal CT DLP: 1126 mGycm Examination of the solid and hollow viscera is limited given the lack of contrast. FINDINGS: LUNG BASES: No evidence for nodule. No evidence for infiltrate. LIVER/GB: There is evidence of cholelithiasis. No space-occupying hepatic lesion. PANCREAS: No pancreatic mass identified. No inflammatory process seen. SPLEEN: No evidence for splenomegaly. No intrasplenic lesions seen. ADRENALS: No adrenal nodules identified. No evidence for thickening. KIDNEYS: Persistent severe left-sided hydronephrosis with residual calculi proximal left ureter urete r entering 4 mm and 2 mm. No additional calculi identified. No evidence for right-sided hydronephrosi s or nephrolithiasis. BOWEL: Appendix has a normal appearance. No evidence of bowel obstruction. No inflammatory process. Lymph nodes: No evidence for adenopathy greater than 1 cm. Abdominal aorta: Atheromatous changes seen. No evidence for aneurysm. Genital organs: No significant abnormality. Other: No significant abnormality. IMPRESSION: Persistent severe left-sided hydronephrosis with residual calculi proximal left ureter ureter enterin g 4 mm and 2 mm.
== END | disposition home or self-care (01) ==
LOC: RADCTMAIN 12:31
PROVIDERS: ATTEND Urology
DX: N13.2 Hydronephrosis with renal and ureteral calculous obstruction (principal)
CPT/HCPCS: 74176

== ENCOUNTER → 2020-12-02 | Outpatient (CLI) | payer MEDICARE ==
[2020-12-02 12:30] LABS: Calcium 8.8 mg/dL (8.4-10.2)
[2020-12-02 12:37] LABS: Anisocytosis Slight; Basophils % (A) 0 %; Eosinophils # (A) 0.2 k/uL (0-0.7); Eosinophils % (A) 2 %; HGB 12.6 gm/dL (13.0-17.5); Lymphocytes # (A) 1.8 k/uL (1.0-4.8); Lymphocytes % (A) 21 %; MCH 33.9 pg (25.0-35.0); MCHC 31.4 g/dL (31.0-37.0); MCV 107.9 fL (80.0-100.0); Macrocytosis Marked; Mean Platelet Volume 6.6; Monocytes # (A) 0.5 k/uL (0-1.0); Monocytes % (A) 6 %; Neutrophils % (A) 69 %; Platelet Count 411 k/uL (150-450); RBC 3.71 m/uL (4.30-5.90); RDW 16.7 % (11.5-15.5); WBC 8.7 k/uL (3.8-10.6)
[2020-12-02 12:39] LABS: Potassium 6.2 mmol/L (3.5-5.1)
[2020-12-02 12:59] LABS: Poikilocytosis (M) Present
== END | disposition home or self-care (01) ==
LOC: LABPAT 11:19
PROVIDERS: ATTEND Urology
DX: Z01.818 Encounter for other preprocedural examination (principal); N13.30 Unspecified hydronephrosis; N20.1 Calculus of ureter; E11.9 Type 2 diabetes mellitus without complications; R31.21 Asymptomatic microscopic hematuria
CPT/HCPCS: 36415; 80048; 85025

== ENCOUNTER 2020-12-09 12:40 | Day surgery (SDC) | payer MEDICARE ==
[2020-12-05 11:13] VITALS: BMI 35.9
[~2020-12-09 12:40] MED LIST changes: +LACTATED RINGERS 1,000 ML IV SCH; -LIDOCAINE 1% (10MG/ML) FOR IV START INTRADERMA PRN; +SCOPOLAMINE 1.5MG/72HR PATCH TRANSDERM ONE
--- NOTE | 2020-12-09 13:03 | XR ---
KUB HISTORY: Kidney stones Correlation to CT scan 11/14/2020 2 images submitted for the frontal KUB Calcified gallstones are noted in the right upper quadrant. There is some punctate calcifications ove rlying the left kidney. The previously identified left ureteral calcification shows a somewhat linear form on CT and corresponding density may be present at the level of the distal left ureter however t here are some scattered calcifications present within the pelvis which are likely vascular. Retained fecal debris is present throughout the distribution of the colon. Degenerative disc changes are prese nt in the visualized spine. IMPRESSION: Left-sided nephrolithiasis, cholelithiasis. Indeterminate pelvic calcifications.
[2020-12-09 13:08] VITALS: RESP 16
--- NOTE | 2020-12-09 13:22 | P.HPIHPCON ---
History of Present Illness H&P Date: 12/09/20 Chief Complaint: left ureteral stone 60-year-old male with history of 1.6 cm left-sided proximal stone. Status post PCNL on August 2020. Of note the stone was completely impacted at that time and there was significant scarring of the ureter. He had a postoperative CT s can that demonstrated persistent hydronephrosis, with possible multiple small stones fragment at the site of previous stone impaction versus stones outside the ureter. Discussed with him given the finding of hydronephrosis I recommend we proceed with ureteroscopy, and if the stone is present, we will proceed with holmium laser lithotripsy. I discussed with him if the stricture has recurred then we can proceed with ureteral incision of the ureteral stricture. Discussed with him the risk which includes bleeding, infection, injury to the ureter, potential recurrence. He understood all the risk and agreed to proceed with cystoscopy, left ureteroscopy, holmium laser lithotripsy, possible laser incision of ureteral stricture, and stent placement Consent for Procedure: I have explained the operation/procedure to the patient, including the risks, benefits, side effects, alternative therapies (including not receiving the proposed treatment or service), the likelihood of the patient achieving his/her goals, and potential recuperation problems for the procedure/sedation/analgesia, as well as any blood products, if indicated. I also explained to the patient the risks, benefits and side effects of the alternatives, as well as the risks related to not receiving the proposed procedure, care, treatment, or services. Past Medical History Past Medical History: CVA/TIA, Diabetes Mellitus, GERD/Reflux, Hyperlipidemia, Hypertension Additional Past Medical History / Comment(s): stroke 7 yrs ago-vision loss rt eye and unstable gait-uses walker or cane, hiatal hernia, kidney stones, "swelling of left kdiney" History of Any Multi-Drug Resistant Organisms: MRSA Date of last positivie culture/infection: 2013 MDRO Source:: abd Past Surgical History: Orthopedic Surgery Additional Past Surgical History / Comment(s): defibrillator Past Anesthesia/Blood Transfusion Reactions: No Reported Reaction Additional Drug Use History / Comment(s): occ use - Past Family History Mother Family Medical History: No Reported History Medications and Allergies Home Medications Medication Instructions Recorded Confirmed Type Atorvastatin [Lipitor] 80 mg PO HS 04/06/14 12/05/20 History Famotidine [Pepcid] 40 mg PO BID 04/06/14 12/05/20 History Metoprolol Tartrate [Lopressor] 37.5 mg PO BID 04/06/14 12/05/20 History Venlafaxine HCl [Effexor] 150 mg PO BID 04/06/14 12/05/20 History glipiZIDE [Glucotrol] 10 mg PO BID 04/06/14 12/05/20 History Cholecalciferol [Vitamin D3 (25 2,000 unit PO DAILY 05/27/20 12/05/20 History Mcg = 1000 Iu)] Magnesium 500 mg PO QAM 05/27/20 12/05/20 History Warfarin [Coumadin] 5 mg PO SUWEFRSA 05/27/20 12/05/20 History cilostazoL [Pletal] 50 mg PO BID 05/27/20 12/05/20 History Enalapril [Vasotec] 10 mg PO BID 12/05/20 12/05/20 History Sodium Polystyrene Sulfonate 60 gm PO DIRECTED 12/05/20 12/05/20 History [Kayexalate] Warfarin [Coumadin] 2.5 mg PO MOTH 12/05/20 12/05/20 History cloNIDine HCL [Catapres] 0.2 mg PO BID 12/05/20 12/05/20 History Allergies Allergy/AdvReac Type Severity Reaction Status Date / Time No Known Allergies Allergy Verified 12/05/20 10:55 Surgical - Exam Vital Signs Temp Pulse Resp BP Pulse Ox 97.5 F L 65 16 149/75 94 L 12/09/20 13:05 12/09/20 13:05 12/09/20 13:05 12/09/20 13:05 12/09/20 13:05 - General well developed, well nourished, no distress, no pain - ENT normal nares, normal mucosa - Respiratory normal expansion, normal respiratory effort - Abdomen Abdomen: soft, non tender - Psychiatric oriented to time, oriented to person, oriented to place Assessment and Plan Assessment: OR for cystoscopy, left ureteroscopy, holmium laser lithotripsy, possible laser incision of ureteral stricture, and stent placement
[2020-12-09] MEDS ORDERED: LACTATED RINGERS 1,000 ML IV ONE (13:23)
[2020-12-09] MEDS ORDERED: SODIUM CHLORIDE 0.9% 1,000 ML IV ONE (13:23)
[2020-12-09 13:24] LABS: Glucose,Whole Blood 121 mg/dL (75-99)
[2020-12-09] MEDS ORDERED: ONDANSETRON 4 MG/2 ML VIAL IVP ONE (13:35)
[2020-12-09] MEDS ORDERED: LIDOCAINE 1% (10MG/ML) FOR IV START INTRADERMA ONE (13:35)
[2020-12-09 14:27] LABS: INR 0.9 (<1.2)
[2020-12-09] MEDS ORDERED: SUCCINYLCHOLINE CHLORIDE 100 MG/5 ML SYR IV ONE (15:20)
[2020-12-09] MEDS ORDERED: HYDROmorphone (PF) 1 MG/ML ONE (15:20)
[2020-12-09] MEDS ORDERED: ESMOLOL 100 MG/10 ML VIAL ONE (15:20)
[2020-12-09] MEDS ORDERED: PROPOFOL 10 MG/ML 20 ML VIAL IV ONE (15:20)
[2020-12-09] MEDS ORDERED: LIDOCAINE 1% INJ 10MG/ML (20 ML MDV) ONE (15:20)
[2020-12-09] MEDS ORDERED: MIDAZOLAM 2 MG/2 ML VIAL ONE (15:20)
[2020-12-09] MEDS ORDERED: NEOSTIGMINE 1 MG/ML 10 ML VIAL ONE (15:20)
[2020-12-09] MEDS ORDERED: GLYCOPYRROLATE 0.2 MG/ML 2 ML VIAL ONE (15:20)
[2020-12-09] MEDS ORDERED: fentaNYL (PF) 50 MCG/ML 2 ML AMP ONE (15:20)
[2020-12-09] MEDS ORDERED: ROCURONIUM 10 MG/ML (5 ML VIAL) IV ONE (15:20)
[2020-12-09] MEDS ORDERED: IOPAMIDOL-370 50ML BTL MISCELLANE ONE ×2 (15:51)
--- NOTE | 2020-12-09 16:30 | P.OP ---
Date of Procedure: 12/09/20 Preoperative Diagnosis: Left ureteral stone/Left hydronephrosis Postoperative Diagnosis: Left hydronephrosis Procedure(s) Performed: Cystoscopy, left retrograde pyelogram, ureteroscopy Implants: None Anesthesia: RAFAELA Surgeon: Armando Benítez Estimated Blood Loss (ml): 5 Pathology: none sent Condition: stable Disposition: PACU Indications for Procedure: 60-year-old male with history of 1.6 cm left-sided impacted proximal stone, unable to remove stone through urteteroscopy secondary to impaction. He is Status post PCNL on August 2020. Of note the stone was completely impacted at that time and there was significant scarring of the ureter. He had a postoperative CT scan that demonstrated persistent hydronephrosis, with possible multiple small stones fragment at the site of previous stone impaction versus stones outside the ureter. Discussed with him given the finding of hydronephrosis I recommend we proceed with ureteroscopy, and if the stone is present, we will proceed with holmium laser lithotripsy. I discussed with him if the stricture has recurred then we can proceed with ureteral incision of the ureteral stricture. Discussed with him the risk which includes bleeding, infection, injury to the ureter, potential recurrence. He understood all the risk and agreed to proceed with cystoscopy, left ureteroscopy, holmium laser lithotripsy, possible laser incision of ureteral stricture, and stent placement Operative Findings: Complete obstruction of the proximal ureter at the previous site of stone impaction, no contrast seen going up to the kidney Description of Procedure: Patient was brought to the operating room, general anesthesia was induced. She was prepped and draped in sterile fashion a placement dorsal lithotomy position. Cystoscopy fitted with a 21-Upper Sorbian sheath was inserted per urethra, cystoscopy was performed which showed no abnormality within the bladder. Attention was then carried to the left ureteral orifice which was intubated with a 5-Upper Sorbian open-ended catheter. Retrograde pyelogram was performed which showed no filling defect along the course of the distal and mid ureter, but there was complete obstruction of the proximal ureter, no contrast was seen going up into the collecting system. At this time the catheter was removed and a semirigid ureteroscope was inserted per urethra and advanced up the left ureteral orifice, the ureteroscope was advanced to the proximal ureter near the area of impaction, there was a pinpoint opening in the ureter. I then injected contrast through the ureteroscope and again no contrast was seen going up. I then attempted to pass the wire through the ureteral opening but the wire appeared to be outside the ureter and in the retroperitoneum. repeat retrograde pyelogram was performed showed some contrast extravasation and no contrast seen up into the collecting system. At this time the case was terminated . The bladder was emptied and the case. Patient tolerated procedure well was taken to PACU in stable condition
[2020-12-09 16:34] VITALS: TEMP 96.8
[2020-12-09 16:39] LABS: Glucose,Whole Blood 112 mg/dL (75-99)
[2020-12-09 17:27] VITALS: BP 147/83; PULSE 82
--- NOTE | 2020-12-09 21:00 | FL ---
Fluoroscopy HISTORY: Pain 61 seconds fluoroscopy time supplied to the referring clinician. 1 intraoperative C-arm images docum ent the procedure. See dictated report from urology.
== END 2020-12-09 18:06 | disposition home or self-care (01) ==
LOC: OR 12:40
PROVIDERS: ATTEND Urology
DX: N13.2 Hydronephrosis with renal and ureteral calculous obstruction (principal); E11.9 Type 2 diabetes mellitus without complications; K21.9 Gastro-esophageal reflux disease without esophagitis; E78.5 Hyperlipidemia, unspecified; I10 Essential (primary) hypertension; I69.312 Visuospatial deficit and spatial neglect following cerebral infarction; I69.398 Other sequelae of cerebral infarction; Z87.442 Personal history of urinary calculi; K44.9 Diaphragmatic hernia without obstruction or gangrene; Z86.14 Personal history of Methicillin resistant Staphylococcus aureus infection; Z98.890 Other specified postprocedural states; Z79.01 Long term (current) use of anticoagulants; Z79.84 Long term (current) use of oral hypoglycemic drugs; Z79.02 Long term (current) use of antithrombotics/antiplatelets; Z79.899 Other long term (current) drug therapy
CPT/HCPCS: 84132; 85610; 74420; 74018; 52351; C1769 ×2; C1758; J2250; J1100; J2710; J0690; J2405; J2001; J3010; J1170; J0330; J2704; Q9967

== ENCOUNTER 2020-12-13 10:49 | Day surgery (SDC) | payer MEDICARE ==
[2020-12-12 12:54] VITALS: BMI 34.7
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
[~2020-12-13 10:49] MED LIST changes: -DEXAMETHASONE SOD PHOSPHATE 4 MG/ML 1 ML VIAL IV ONE; -HYDROmorphone 0.5 MG/0.5 ML SYRINGE IVP PRN; -LACTATED RINGERS 1,000 ML IV SCH; -MIDAZOLAM 2 MG/2 ML VIAL IV PRN; -ONDANSETRON 4 MG/2 ML VIAL IVP ONE; -SCOPOLAMINE 1.5MG/72HR PATCH TRANSDERM ONE; +SODIUM CHLORIDE 0.9% 500 ML 500 ML IV SCH; +ceFAZolin 2 GM in SODIUM CHLORIDE 0.9% 100 ML IVPB ONE
[2020-12-13] MEDS ORDERED: SODIUM CHLORIDE 0.9% 500 ML 500 ML IV ONE (10:59)
[2020-12-13 11:23] LABS: Glucose,Whole Blood 129 mg/dL (75-99)
[2020-12-13 11:26] VITALS: TEMP 98
[2020-12-13 11:41] LABS: Prothrombin Time 10.7 sec (9.0-12.0)
[2020-12-13] MEDS ORDERED: fentaNYL (PF) 50 MCG/ML 2 ML AMP IV ONE (11:55)
[2020-12-13] MEDS ORDERED: IOPAMIDOL-370 50ML BTL INJ ONE ×2 (12:08)
[2020-12-13] MEDS ORDERED: LIDOCAINE 1% INJ 10MG/ML (20 ML MDV) SQ ONE (12:11)
--- NOTE | 2020-12-13 13:22 | CT ---
EXAMINATION TYPE: CT Guided Neph New Access DATE OF EXAM: 12/13/2020 COMPARISON: NONE HISTORY: Left hydronephrosis Procedure had been discussed with the patient risks, benefits, alternatives, were discussed and any q uestions were answered. Informed consent was obtained. The patient was in a semiprone position prep ped and draped on the table in the usual sterile fashion. Utilizing a 15 cm length Chiba needle a si ngle pass was made into a lower pole posterior calyx under fluoroscopic guidance. An 0.018 guidewire is passed through the needle and repeat imaging demonstrated the wire to be within the proximal uret er. The needle was removed. Remaining portion of the exam was performed CVL lab. IMPRESSION: 1. Successful CT guided wire placement nephrostomy tube insertion.
--- NOTE | 2020-12-13 13:25 | IR ---
EXAMINATION TYPE: IR nephrostomy DATE OF EXAM: 12/13/2020 COMPARISON: NONE HISTORY: Left hydronephrosis Procedure had been discussed with the patient risks, benefits, alternatives, were discussed and any q uestions were answered. Informed consent was obtained. The patient was in a semiprone position prep ped and draped on the OR table in the usual sterile fashion. There was placement of a 6-Yemeni cathet er sheath system over the pre-existing guidewire. There is free spillage of urine. Small amount contr ast was injected in the collecting system. There was conversion to a 0.035 system and placement of a 8 Yemeni nephrostomy tube. Approximately 1.3 minutes of fluoroscopy was provided. IMPRESSION: 1. Successful left nephrostomy tube insertion.. 2. Antegrade nephrostogram demonstrated marked irregularity of the proximal right ureter with a filli ng defect which likely corresponds to the proximal right ureteral calculus. Small amount contrast was seen to extend distally to this level.
[2020-12-13 15:15] VITALS: RESP 16
[2020-12-13 16:25] VITALS: BP 159/67; PULSE 49
== END 2020-12-13 14:20 | disposition home or self-care (01) ==
LOC: OR 10:49
PROVIDERS: ATTEND Radiology Diagnostic Radiology
DX: N13.30 Unspecified hydronephrosis (principal); E11.9 Type 2 diabetes mellitus without complications; K21.9 Gastro-esophageal reflux disease without esophagitis; E78.5 Hyperlipidemia, unspecified; I10 Essential (primary) hypertension; I69.398 Other sequelae of cerebral infarction; R26.81 Unsteadiness on feet; K44.9 Diaphragmatic hernia without obstruction or gangrene; Z87.442 Personal history of urinary calculi; Z86.14 Personal history of Methicillin resistant Staphylococcus aureus infection; Z79.01 Long term (current) use of anticoagulants; Z79.84 Long term (current) use of oral hypoglycemic drugs; Z79.02 Long term (current) use of antithrombotics/antiplatelets; Z79.899 Other long term (current) drug therapy
CPT/HCPCS: 50432 ×2; 85610; C1729; C1769 ×2; J0690; J2001; J3010; Q9967

== ENCOUNTER → 2021-01-04 | Day surgery (SDC) | payer MEDICARE ==
[2021-01-02 11:47] VITALS: BMI 35.9
[~2021-01-04] MED LIST changes: +IOPAMIDOL-250 50ML BTL IV ONE; +SODIUM CHLORIDE 0.9% 500 ML 500 ML IV ONE; -ceFAZolin 2 GM in SODIUM CHLORIDE 0.9% 100 ML IVPB ONE
[2021-01-04 11:32] LABS: Glucose,Whole Blood 126 mg/dL (75-99)
[2021-01-04 11:35] LABS: Anisocytosis Slight; Basophils # (A) 0.1 k/uL (0-0.2); Basophils % (A) 1 %; Eosinophils # (A) 0.3 k/uL (0-0.7); Eosinophils % (A) 3 %; HCT 40.8 % (39.0-53.0); HGB 13.1 gm/dL (13.0-17.5); Lymphocytes % (A) 17 %; MCH 34.7 pg (25.0-35.0); MCHC 32.1 g/dL (31.0-37.0); Macrocytosis Marked; Mean Platelet Volume 6.6; Monocytes # (A) 0.7 k/uL (0-1.0); Monocytes % (A) 6 %; Neutrophils # (A) 8.3 k/uL (1.3-7.7); Neutrophils % (A) 72 %; Platelet Count 395 k/uL (150-450); RBC 3.78 m/uL (4.30-5.90); RDW 16.7 % (11.5-15.5); WBC 11.6 k/uL (3.8-10.6)
[2021-01-04 11:42] VITALS: RESP 16; TEMP 96.3
[2021-01-04 11:44] LABS: INR 1.9 (<1.2); Prothrombin Time 18.6 sec (9.0-12.0)
[2021-01-04 12:13] LABS: Poikilocytosis (M) Present
[2021-01-04 12:18] LABS: Calcium 8.5 mg/dL (8.4-10.2); Potassium 5.3 mmol/L (3.5-5.1)
[2021-01-04 12:48] VITALS: BP 140/71; PULSE 77
--- NOTE | 2021-01-16 08:29 | IR ---
EXAMINATION TYPE: IR nephrostogram DATE OF EXAM: 01/11/2021 COMPARISON: CT 11/14/2020 HISTORY: Hydronephrosis, ureteral obstruction PROCEDURE: 0.2 minutes fluoroscopy time, 265 images document the procedure Under real-time fluoroscopy the patient's indwelling left nephrostomy tube was injected. Ureteral obs truction noted to the level of the mid left ureter. Prominence of the left collecting system is noted . IMPRESSION: Left hydronephrosis, ureteral obstruction.
== END ==
LOC: CATHCVL 10:41
PROVIDERS: ATTEND Radiology Diagnostic Radiology
DX: N13.1 Hydronephrosis with ureteral stricture, not elsewhere classified (principal); E11.9 Type 2 diabetes mellitus without complications; K21.9 Gastro-esophageal reflux disease without esophagitis; E78.5 Hyperlipidemia, unspecified; I10 Essential (primary) hypertension; I69.398 Other sequelae of cerebral infarction; H54.61 Unqualified visual loss, right eye, normal vision left eye; R26.89 Other abnormalities of gait and mobility; K44.9 Diaphragmatic hernia without obstruction or gangrene; Z98.890 Other specified postprocedural states; Z87.442 Personal history of urinary calculi; Z87.448 Personal history of other diseases of urinary system; Z86.14 Personal history of Methicillin resistant Staphylococcus aureus infection; Z95.810 Presence of automatic (implantable) cardiac defibrillator; Z79.899 Other long term (current) drug therapy; Z79.84 Long term (current) use of oral hypoglycemic drugs; Z79.01 Long term (current) use of anticoagulants
CPT/HCPCS: 50431; 80048; 85025; 85610; C1769 ×2; Q9966; 74425

== ENCOUNTER → 2021-01-12 | Outpatient (CLI) | payer MEDICARE ==
[~2021-01-12] MED LIST changes: +FUROSEMIDE 10 MG/ML 2 ML VIAL IV ONE; -IOPAMIDOL-250 50ML BTL IV ONE; -SODIUM CHLORIDE 0.9% 500 ML 500 ML IV ONE; -SODIUM CHLORIDE 0.9% 500 ML 500 ML IV SCH
--- NOTE | 2021-01-12 14:54 | NM ---
EXAMINATION TYPE: NM Lasix renogram DATE OF EXAM: 01/12/2021 COMPARISON: CT 11/14/2020 HISTORY: 60-year-old male N13.30, unspecified hydronephrosis. TECHNIQUE: Following administration of 9.9 mCi Tc 99m MAG3 with 20mg Lasix. Immediate images post inj ection. Subsequent imaging carried out to 30 minutes. FINDINGS: Left: 14.6 %. Right: 85.4 %. Max renal flow left: 1 minutes. Max renal flow right: 85.4 minutes. Satisfactory accumulation of radiotracer within the right renal collecting system. After the administ ration of Lasix, there is prompt excretion from the right renal collecting system. Delayed accumulati on of tracer in the left kidney. T 1/2 left: Too prolonged to calculate. T 1/2 right: 16 minutes. IMPRESSION: Significantly decreased split function of the left kidney (15%). Significantly increased time to max renal flow for the left kidney (85 minutes). T 1/2 on the left is too prolonged to calculate. Finding s compatible with high-grade left-sided obstruction.
== END | disposition home or self-care (01) ==
LOC: RADNMMAIN 12:14
PROVIDERS: ATTEND Urology
DX: R94.4 Abnormal results of kidney function studies (principal); N13.30 Unspecified hydronephrosis
CPT/HCPCS: 78708; A9562

== ENCOUNTER 2021-02-27 09:32 | Day surgery (SDC) | payer MEDICARE ==
[2021-02-23 11:11] VITALS: BMI 34.0
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
[~2021-02-27 09:32] MED LIST changes: -FUROSEMIDE 10 MG/ML 2 ML VIAL IV ONE; +GENTAMICIN 440 MG in SODIUM CHLORIDE 0.9% 100 ML IVPB PRN
[2021-02-27 10:06] LABS: Glucose,Whole Blood 81 mg/dL (75-99)
[2021-02-27] MEDS ORDERED: SODIUM CHLORIDE 0.9% 500 ML 500 ML IV ONE (10:09)
[2021-02-27 10:23] LABS: Prothrombin Time 10.9 sec (9.0-12.0)
[2021-02-27] MEDS ORDERED: LIDOCAINE 1% INJ 10MG/ML (20 ML MDV) ONE (10:29)
[2021-02-27] MEDS ORDERED: fentaNYL (PF) 50 MCG/ML 2 ML AMP ONE (10:53)
[2021-02-27 13:44] LABS: Appearance,Urine Turbid (Clear); Bacteria,Urine Rare /hpf; Bilirubin,Urine Negative (Negative); Blood,Urine Moderate (Negative); Color,Urine Dark Red; Glucose,Urine (UA) Negative (Negative); Ketones,Urine Negative (Negative); Leukocyte Esterase,Urine Large (Negative); Nitrite,Urine Negative (Negative); PH, Urine 6.5 (5.0-8.0); Protein,Urine 2+ (Negative); RBC,Urine >182 /hpf (0-5); Urobilinogen,Urine <2.0 mg/dL (<2.0); WBC,Urine >182 /hpf (0-5)
[2021-02-27 16:16] LABS: Glucose,Whole Blood 78 mg/dL (75-99)
--- NOTE | 2021-02-27 16:33 | IR ---
Nephrostogram, nephrostomy tube change HISTORY: Nonfunctioning nephrostomy tube, urinary tract infection After informed consent the skin around the indwelling left nephrostomy tube and tube which is indwell ing prepped and draped. Gentle hand-injection of contrast not be performed due to occlusion. Under fl uoroscopy the catheter is noted to be kinked and pulled back. The catheter was subsequently cut and cannulated with a 0.035 inch angled Glidewire. The wire was use d to exchange the catheter and a 5 Welsh hockey-stick catheter was advanced over the wire, gentle ma nipulation was performed during the injection of contrast and subsequently the wire was advanced and the nephrostomy tract was recovered. A 8.5 Welsh nephrostomy tube was advanced over the wire and fix ed in place. Catheter was fixed to the skin with 2-0 silk suture. Hemostasis achieved. No immediate c omplication. Purulent material returned in the hub of the needle was sent for laboratory analysis. St erile dressing was placed. Patient remained stable. 108 intraoperative C-arm images document the procedure, 8.1 minutes fluoroscopy time. IMPRESSION: Status post nephrostomy tube exchange as described, this procedure performed by the under signed. Referring clinician was informed of the findings of the purulent drainage.
[2021-02-28 07:34] VITALS: BP 154/81; PULSE 92; RESP 18; TEMP 97.9
--- NOTE | 2021-02-28 07:39 | P.PN ---
Subjective Progress Note Date: 02/28/21 The patient has an obstructed proximal ureter left due to scar from a stone. He had his left N tube changed yesterday. His urine was purlent so he was kept in the hospital overnite. His urine has cleared appropriately. He can go hoe from a urological standpoint. He will fu with Dr Benítez. Objective - Vital Signs Vital signs: Vital Signs Temp 97.9 F 02/28/21 07:00 Pulse 92 02/28/21 07:00 Resp 18 02/28/21 07:00 BP 154/81 02/28/21 07:00 Pulse Ox 92 L 02/28/21 07:00 Intake & Output 02/27/21 02/28/21 02/28/21 18:59 06:59 18:59 Intake Total 90 Output Total 60 200 Balance 30 -200 Weight 107.501 kg Intake: IV 90 Output: Drainage 60 200 Left Lower Back 60 200 Other: # Voids 1 - Labs Labs: Abnormal Lab Results - Last 24 Hours (Table) 02/27/21 Range/Units 13:04 Urine Protein 2+ H (Negative) Urine Blood Moderate H (Negative) Ur Leukocyte Esterase Large H (Negative) Urine RBC >182 H (0-5) /hpf Urine WBC >182 H (0-5) /hpf Urine WBC Clumps Many H (None) /hpf Urine Bacteria Rare H (None) /hpf Microbiology - Last 24 Hours (Table) 02/27/21 11:31 Urine Culture - Preliminary Urine,Ureter
[2021-02-28] MEDS ORDERED: lisinopriL 10 MG TAB PO SCH (09:00)
[2021-02-28] MEDS ORDERED: glipiZIDE 10 MG TAB PO SCH (09:00)
[2021-02-28] MEDS ORDERED: METOPROLOL TARTRATE 25 MG TAB PO SCH (09:00)
[2021-02-28] MEDS ORDERED: VENLAFAXINE HCL 75 MG TAB PO SCH (09:00)
[2021-02-28] MEDS ORDERED: cloNIDine HCL 0.2 MG TAB PO SCH (09:00)
[2021-02-28] MEDS ORDERED: ATORVASTATIN 80 MG TAB PO SCH (21:00)
== END 2021-02-28 09:55 | disposition home or self-care (01) ==
LOC: OR 09:32 → 6NMEDSUR 11:20 → OR 02-28 09:55
PROVIDERS: ATTEND Radiology Diagnostic Radiology
DX: N13.1 Hydronephrosis with ureteral stricture, not elsewhere classified (principal); Z20.822 Contact with and (suspected) exposure to COVID-19
CPT/HCPCS: 50435; 75984; 85610; 81001; 87086; 87635; C1729; C1769 ×2; J0696 ×2; J1580

== ENCOUNTER 2021-03-22 | Inpatient (IN) | payer MEDICARE | END 2021-03-25 14:00 | disposition home or self-care (01) | DRG 637 | PROVIDERS: ADMIT Internal Medicine | DX: E11.649 Type 2 diabetes mellitus with hypoglycemia without coma (principal); J18.9 Pneumonia, unspecified organism; J96.01 Acute respiratory failure with hypoxia; G93.41 Metabolic encephalopathy; I69.351 Hemiplegia and hemiparesis following cerebral infarction affecting right dominant side; Z16.24 Resistance to multiple antibiotics; J44.0 Chronic obstructive pulmonary disease with (acute) lower respiratory infection; J44.1 Chronic obstructive pulmonary disease with (acute) exacerbation; N13.30 Unspecified hydronephrosis; E87.1 Hypo-osmolality and hyponatremia; Z20.822 Contact with and (suspected) exposure to COVID-19; E78.5 Hyperlipidemia, unspecified; I10 Essential (primary) hypertension; H54.61 Unqualified visual loss, right eye, normal vision left eye; R26.89 Other abnormalities of gait and mobility; R13.10 Dysphagia, unspecified; F32.9 Major depressive disorder, single episode, unspecified; E87.5 Hyperkalemia; K44.9 Diaphragmatic hernia without obstruction or gangrene; F17.200 Nicotine dependence, unspecified, uncomplicated; I48.0 Paroxysmal atrial fibrillation; Z93.1 Gastrostomy status; Z90.5 Acquired absence of kidney; Z87.442 Personal history of urinary calculi; Z86.73 Personal history of transient ischemic attack (TIA), and cerebral infarction without residual deficits; I69.398 Other sequelae of cerebral infarction; I69.391 Dysphagia following cerebral infarction; Z79.899 Other long term (current) drug therapy; Z79.84 Long term (current) use of oral hypoglycemic drugs; Z79.02 Long term (current) use of antithrombotics/antiplatelets; Z79.01 Long term (current) use of anticoagulants; Z93.6 Other artificial openings of urinary tract status | CPT/HCPCS: 36415; 71045; 71046; 80053; 81001; 83036; 83605; 84145; 85025; 85610; 87040; 87070; 87205; 87635; 94640; 94760; 99285 ==

== ENCOUNTER 2021-06-15 00:48 | Inpatient (IN) | payer MEDICARE ==
[2021-06-15] MEDS ORDERED: SODIUM CHLORIDE 0.9% 500 ML 500 ML IV STA (01:03)
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
[2021-06-15 01:46] LABS: Anisocytosis Slight; Basophils % (A) 0 %; Eosinophils # (A) 0.1 k/uL (0-0.7); Eosinophils % (A) 1 %; HCT 36.9 % (39.0-53.0); Lymphocytes # (A) 0.9 k/uL (1.0-4.8); Lymphocytes % (A) 11 %; MCH 37.3 pg (25.0-35.0); MCHC 32.5 g/dL (31.0-37.0); MCV 114.8 fL (80.0-100.0); Macrocytosis Marked; Mean Platelet Volume 6.9; Monocytes # (A) 0.4 k/uL (0-1.0); Monocytes % (A) 5 %; Neutrophils # (A) 6.9 k/uL (1.3-7.7); Neutrophils % (A) 80 %; Platelet Count 338 k/uL (150-450); RBC 3.22 m/uL (4.30-5.90); RDW 16.1 % (11.5-15.5); WBC 8.6 k/uL (3.8-10.6)
--- NOTE | 2021-06-15 01:46 | CT ---
EXAMINATION TYPE: CT brain guilherme daniel DATE OF EXAM: 06/15/2021 COMPARISON: None HISTORY: fall/injury. history of previous CVA CT DLP: 1481.8 mGycm Automated exposure control for dose reduction was used. There is cerebral cortical atrophy. There is large area of hypodensity involving the right cerebellar hemisphere. There is no mass effect nor midline shift. There is no sign of intracranial hemorrhage. There is minimal hypodensity in the periventricular white matter. Calvarium is intact. Skull base is intact. There is normal aeration of the mastoid sinuses. Cervical vertebra have normal alignment. Posterior elements are intact there is narrowing at C5-6 and C6-7 disc spaces with spur formation. Facet joints are intact. There is minor hypertrophic facet art hropathy. Prevertebral soft tissues are intact IMPRESSION: Old large right cerebellar hemisphere infarct. Cerebral atrophy. No acute intracranial abnormality. Mild spondylotic changes in the lower cervical spine. No fracture seen.
--- NOTE | 2021-06-15 01:48 | XR ---
EXAMINATION TYPE: XR chest 1V portable DATE OF EXAM: 06/15/2021 COMPARISON: 03/24/2021 HISTORY: Fall. Injury. TECHNIQUE: Single view FINDINGS: There is no heart failure nor confluent pneumonic infiltrate. Costophrenic angles are clear . Pulmonary leon are somewhat bulky.. There are chest leads. IMPRESSION: No acute lung disease. Prominent pulmonary leon also present on old exam and could relate to some mild adenopathy or sarcoidosis. There is clearing of the infiltrate right lung base compared to old exam..
[2021-06-15 01:54] LABS: INR 1.2 (<1.2); Partial Thromboplastin Time 26.1 sec (22.0-30.0); Prothrombin Time 12.4 sec (9.0-12.0)
[2021-06-15 01:58] LABS: Albumin 3.5 g/dL (3.5-5.0); Calcium 9.1 mg/dL (8.4-10.2); Magnesium 1.8 mg/dL (1.6-2.3); Total Bilirubin 0.3 mg/dL (0.2-1.3); Total Protein 6.7 g/dL (6.3-8.2)
[2021-06-15 06:16] LABS: Amorphous Sediment,Urine Few /hpf; Appearance,Urine Cloudy (Clear); Bilirubin,Urine Negative (Negative); Blood,Urine Negative (Negative); Color,Urine Yellow; Glucose,Urine (UA) Negative (Negative); Hyaline Casts,Urine 3 /lpf (0-2); Ketones,Urine Negative (Negative); Leukocyte Esterase,Urine Negative (Negative); Nitrite,Urine Negative (Negative); PH, Urine 5.5 (5.0-8.0); Protein,Urine Trace (Negative); RBC,Urine <1 /hpf (0-5); Specific Gravity,Urine 1.021 (1.001-1.035); Squamous Epithelial Cell,Urine <1 /hpf (0-4); WBC,Urine 1 /hpf (0-5)
[2021-06-15] MEDS ORDERED: NALOXONE 0.4 MG/ML 1 ML VIAL IV PRN (06:28)
[2021-06-15] MEDS: SODIUM CHLORIDE 0.9% 1,000 ML IV SCH ×2 (07:02→22:44)
[2021-06-15 08:48] LABS: ALT 20 U/L (4-49); AST 26 U/L (17-59); African American GFR (CKD) 40 (>60 ml/min/1.73 sqM); Albumin 3.3 g/dL (3.5-5.0); Albumin/Globulin Ratio 1.1; Alkaline Phosphatase 99 U/L (38-126); Anion Gap 7 mmol/L; Blood Urea Nitrogen 17 mg/dL (9-20); Calcium 8.8 mg/dL (8.4-10.2); Carbon Dioxide 22 mmol/L (22-30); Chloride 99 mmol/L (98-107); Globulin 3.1 g/dL; Glucose 131 mg/dL (74-99); Non-African American GFR(CKD) 35 (>60 ml/min/1.73 sqM); Sodium 128 mmol/L (137-145); Total Bilirubin 0.4 mg/dL (0.2-1.3); Total Protein 6.4 g/dL (6.3-8.2)
[2021-06-15 09:02] LABS: Potassium 6.2 mmol/L (3.5-5.1)
[2021-06-15] MEDS ORDERED: SODIUM POLYSTYRENE SULFONATE 15 GM/60 ML BOTTLE PO STA (09:43)
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
--- NOTE | 2021-06-15 16:18 | US ---
EXAMINATION TYPE: US carotid duplex BILAT DATE OF EXAM: 06/15/2021 COMPARISON: NONE CLINICAL HISTORY: fall, dizziness. Dizziness EXAM MEASUREMENTS: RIGHT: Peak Systolic Velocity (PSV) cm/sec ----- Right CCA: 63.0 ----- Right ICA: 58.0 ----- Right ECA: 149 ICA/CCA ratio: 0.9 RIGHT: End Diastole cm/sec ----- Right CCA: 14.3 ----- Right ICA: 17.8 ----- Right ECA: 14.5 LEFT: Peak Systolic Velocity (PSV) cm/sec ----- Left CCA: 66.6 ----- Left ICA: 125 ----- Left ECA: 289 ICA/CCA ratio: 1.9 LEFT: End Diastole cm/sec ----- Left CCA: 12.1 ----- Left ICA: 24.7 ----- Left ECA: 24.6 VERTEBRALS (direction of flow): Right Vertebral: Unable to visualize Left Vertebral: Antegrade Rhythm: Normal Mild to moderate peripheral plaque centered at carotid bulb level bilaterally. Increased peak systo lic velocity in the left internal/external carotid arteries but no increased end diastolic velocity o n the left or abnormal ratio. Nonvisualized right vertebral artery noted. IMPRESSION: Mild to moderate atherosclerotic change bilaterally, no hemodynamic significant stenosi s is identified in either internal carotid artery. NASCET criteria was used in interpretation of this exam? Criteria for Assigning % of Stenosis / Diameter reduction (Estimation based on the indirect measurements of the internal carotid artery velocities (ICA PSV). 1. Normal (no stenosis)=ICA PSV < 125 cm/s: ratio < 2.0: ICA EDV<40 cm/s. 2. Less than 50% stenosis=ICA PSV < 125 cm/s: ratio < 2.0: ICA EDV<40 cm/s. 3. 50 to 69% stenosis=ICA PSV of 125 to 230 cm/s: ration 2.0 ? 4.0: ICA EDV 40-100 cm/s. 4. Greater than 70% stenosis to near occlusion= ICA PSV > 230 cm/s: ratio > 4.0: ICA EDV > 100 cm/s. 5. Near occlusion= ICA PSV velocities may be low or undetectable: variable ratio and ICA EDV. 6. Total occlusion=unable to detect flow.
[2021-06-15] MEDS: METOPROLOL TARTRATE 25 MG TAB PO SCH ×2 (18:00→22:43)
[2021-06-15] MEDS ORDERED: WARFARIN 7.5 MG TAB PO ONE (18:00)
[2021-06-15] MEDS ORDERED: FAMOTIDINE 20 MG TAB PO SCH (21:00)
[2021-06-15] MEDS: cloNIDine HCL 0.2 MG TAB PO SCH (22:43)
[2021-06-15] MEDS: cilostazoL 100 MG TAB PO SCH (22:43)
[2021-06-15] MEDS: VENLAFAXINE HCL 75 MG TAB PO SCH (22:44)
[2021-06-16] MEDS: IPRATROPIUM-ALBUTEROL 3 ML NEB INHALATION SCH ×5 (01:21→20:23)
[2021-06-16] MEDS: SYMBICORT 160-4.5 MCG INHALER INHALATION SCH ×3 (01:22→20:23)
[2021-06-16 06:03] LABS: Basophils % (A) 0 %; Eosinophils % (A) 0 %; HCT 34.3 % (39.0-53.0); HGB 11.8 gm/dL (13.0-17.5); Lymphocytes # (A) 0.4 k/uL (1.0-4.8); Lymphocytes % (A) 5 %; MCHC 34.5 g/dL (31.0-37.0); Macrocytosis Marked; Mean Platelet Volume 6.9; Monocytes # (A) 0.4 k/uL (0-1.0); Monocytes % (A) 5 %; Neutrophils # (A) 7.1 k/uL (1.3-7.7); Neutrophils % (A) 86 %; Platelet Count 271 k/uL (150-450); RBC 3.11 m/uL (4.30-5.90); RDW 14.7 % (11.5-15.5); WBC 8.2 k/uL (3.8-10.6)
[2021-06-16 06:38] LABS: INR 1.9 (<1.2)
[2021-06-16] MEDS: cloNIDine HCL 0.2 MG TAB PO SCH ×2 (09:15→22:07)
[2021-06-16] MEDS: FAMOTIDINE 20 MG TAB PO SCH (09:16)
[2021-06-16] MEDS: METOPROLOL TARTRATE 25 MG TAB PO SCH ×3 (09:16→22:07)
[2021-06-16] MEDS: TAMSULOSIN 0.4 MG CAP.ER.24H PO SCH (09:16)
[2021-06-16] MEDS: cilostazoL 100 MG TAB PO SCH ×2 (09:17→22:06)
[2021-06-16] MEDS: PIOGLITAZONE 30 MG TAB PO SCH (09:17)
[2021-06-16] MEDS: VENLAFAXINE HCL 75 MG TAB PO SCH ×2 (09:17→22:07)
[2021-06-16 10:31] LABS: African American GFR (CKD) 49.3 (60.0-200.0); Albumin 3.4 g/dL (3.80-4.90); Albumin/Globulin Ratio 1.42 (1.60-3.17); Anion Gap 5.4 mmol/L (4.00-12.00); BUN/Creat Ratio 9.41 Ratio (12.00-20.00); Carbon Dioxide 22.6 mmol/L (21.6-31.8); Globulin 2.4 g/dL (1.6-3.3); Non-African American GFR(CKD) 42.6 (60.0-200.0); Total Bilirubin 0.6 mg/dL (0.2-1.2); Total Protein 5.8 g/dL (6.2-8.2)
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
--- NOTE | 2021-06-16 11:01 | ECHOF ---
Referral Reason:chest pain MEASUREMENTS -------- HEIGHT: 180.3 cm WEIGHT: 106.6 kg BP: 128/87 RVIDd: 3.4 cm (< 3.3) IVSd: 1.3 cm (0.6 - 1.1) LVIDd: 4.3 cm (3.9 - 5.3) LVPWd: 1.2 cm (0.6 - 1.1) IVSs: 2.0 cm LVIDs: 3.3 cm LVPWs: 1.9 cm LA Diam: 3.6 cm (2.7 - 3.8) Ao Diam: 3.5 cm (2.0 - 3.7) AV Cusp: 2.2 cm (1.5 - 2.6) MV EXCURSION: 12.104 mm (> 18.000) MV EF SLOPE: 45 mm/s (70 - 150) EPSS: 0.7 cm MV E Collin: 0.64 m/s MV DecT: 303 ms MV A Collin: 1.17 m/s MV E/A Ratio: 0.55 RAP: 5.00 mmHg RVSP: 63.10 mmHg FINDINGS -------- Resting tachycardia (HR>100bpm). This was a technically difficult study with suboptimal views. The left ventricular size is normal. There is mild concentric left ventricular hypertrophy. Overa ll left ventricular systolic function is normal with, an EF between 55 - 60 %. The right ventricle is mildly enlarged. The left atrium is normal in size. The right atrium was not well visualized. 5 ml Lumason used The aortic valve is trileaflet, and appears structurally normal. No aortic stenosis or regurgitation. The mitral valve is normal. Mild tricuspid regurgitation present. There is severe pulmonary hypertension. The right ventricul ar systolic pressure, as measured by Doppler, is 63.10mmHg. The pulmonic valve was not well visualized. The aortic root size is normal. IVC Not well visulized. There is no pericardial effusion. CONCLUSIONS -------- 1. The left ventricular size is normal. 2. There is mild concentric left ventricular hypertrophy. 3. Overall left ventricular systolic function is normal with, an EF between 55 - 60 %. 4. The right ventricle is mildly enlarged. 5. 5 ml Lumason used 6. The aortic valve is trileaflet, and appears structurally normal. No aortic stenosis or regurgitati on. 7. Mild tricuspid regurgitation present. 8. There is severe pulmonary hypertension. 9. The right ventricular systolic pressure, as measured by Doppler, is 63.10mmHg. 10. There is no pericardial effusion. RESIDENT CARE PROVIDER: Carissa Kumari RDCS
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
[2021-06-16] MEDS: SODIUM CHLORIDE 0.9% 1,000 ML IV SCH (13:21)
--- NOTE | 2021-06-16 15:21 | P.PN ---
Subjective Progress Note Date: 06/16/21 Everett Juárez, is a 61-year-old male patient of Dr. Jama, who presented to [facility] emergency room after sustaining a fall, and complaining of generalized weakness and dizziness, patient is not clear whether he passed out or had any loss of consciousness. Patient was also complaining of chest pain in the EMS, EKG was within normal limits and troponin level was less than 0.01 He was evaluated in the emergency room vital examination on presentation revealed a temperature of 97.4 pulse 71 respirations 16 blood pressure 87/50 pulse ox 94% on room air Laboratory data revealed a white blood count of 8.6 hemoglobin 12.0 platelet count 338 INR 1.2 sodium 128 potassium 6.2 chloride 99 CO2 22 BUN 17 creatinine 2.01 lactic acid on presentation 2.1 urine analysis did not reveal evidence of significant infection. Testing in the emergency room revealed EKG revealed normal sinus rhythm normal EKG chest x-ray done in the emergency room revealed no acute lung disease there was prominent pulmonary leon that could be related to adenopathy. 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 Patient was admitted to medical floor for further evaluation and treatment. Past medical history is significant for history of hypertension, history of hyperlipidemia, history of chronic kidney disease, history of ale-yfkscae-memvksuxa diabetes mellitus, history of previous stroke, history of paroxysmal atrial fibrillation maintained on Coumadin, history of COPD, patient still smoke a few cigarettes per day, he denies alcohol use. On review of systems Patient is alert and responsive in no distress, he denies any complaints there is no fever or chills no headache or dizziness no chest pain no shortness of breath no palpitation no cough no nausea or vomiting no abdominal pain no diarrhea no blood in the stools no burning with urination no frequency or urgency and no hematuria, there is no weakness or numbness in any of the extremities no change in vision speech, gait was not tested. On 06/16/2021 patient was seen and examined on the medical floor he is alert and oriented 3 in no apparent distress he is complaining of generalized weakness otherwise he denies any complaints there is no fever or chills no headache or dizziness no chest pain no shortness of breath no cough no nausea or vomiting no abdominal pain no diarrhea no blood in the stools no burning with urination no frequency or urgency and no hematuria is no weakness or numbness in any of the extremities there is no change in his vision or speech and gait was not tested Objective - Vital Signs Vital signs: Vital Signs Temp 98.1 F 06/16/21 14:00 Pulse 106 H 06/16/21 14:00 Resp 18 06/16/21 14:00 BP 138/88 06/16/21 14:00 Pulse Ox 93 L 06/16/21 14:00 Intake & Output 06/15/21 06/16/21 06/16/21 18:59 06:59 18:59 Intake Total 240 Output Total 500 Balance -260 Weight 106.594 kg Intake: Oral 240 Output: Urine 500 Other: Voiding Method Urinal - Exam In general patient is alert and responsive in no distress HEENT head normocephalic and atraumatic Neck is supple no JVD no goiter no lymphadenopathy no carotid bruit Chest examination is clear to auscultation no crackles no wheezing Cardiac exam reveals regular heart sounds S1 and S2 no gallops no murmurs Abdomen is soft nontender no organomegaly with normal bowel sounds Extremity exam reveals no edema no cyanosis or clubbing Neurological examination reveals no gross focal deficits - Labs CBC & Chem 7: 06/16/21 05:39 06/16/21 05:39 Labs: Abnormal Lab Results - Last 24 Hours (Table) 06/15/21 06/16/21 06/16/21 Range/Units 07:58 05:39 05:39 RBC 3.11 L (4.30-5.90) m/uL Hgb 11.8 L (13.0-17.5) gm/dL Hct 34.3 L (39.0-53.0) % MCV 110.0 H (80.0-100.0) fL MCH 38.0 H (25.0-35.0) pg Lymphocytes # 0.4 L (1.0-4.8) k/uL Macrocytosis Marked A PT 19.0 H (9.0-12.0) sec INR 1.9 H (<1.2) Sodium (135-145) mmol/L Creatinine (0.6-1.5) mg/dL Est GFR (CKD-EPI)AfAm (60.0-200.0) Est GFR (CKD-EPI)NonAf (60.0-200.0) BUN/Creatinine Ratio (12.00-20.00) Ratio Hemoglobin A1c 6.4 H (4.0-6.0) % Calcium (8.7-10.3) mg/dL Total Protein (6.2-8.2) g/dL Albumin (3.80-4.90) g/dL Albumin/Globulin Ratio (1.60-3.17) g/dL 06/16/21 Range/Units 05:39 RBC (4.30-5.90) m/uL Hgb (13.0-17.5) gm/dL Hct (39.0-53.0) % MCV (80.0-100.0) fL MCH (25.0-35.0) pg Lymphocytes # (1.0-4.8) k/uL Macrocytosis PT (9.0-12.0) sec INR (<1.2) Sodium 129 L (135-145) mmol/L Creatinine 1.7 H (0.6-1.5) mg/dL Est GFR (CKD-EPI)AfAm 49.3 L (60.0-200.0) Est GFR (CKD-EPI)NonAf 42.6 L (60.0-200.0) BUN/Creatinine Ratio 9.41 L (12.00-20.00) Ratio Hemoglobin A1c (4.0-6.0) % Calcium 8.0 L (8.7-10.3) mg/dL Total Protein 5.8 L (6.2-8.2) g/dL Albumin 3.40 L (3.80-4.90) g/dL Albumin/Globulin Ratio 1.42 L (1.60-3.17) g/dL Microbiology - Last 24 Hours (Table) 06/15/21 01:22 Blood Culture - Preliminary Blood No Growth after 24 hours Assessment and Plan Plan: Fall at home with unclear history whether patient had a syncopal episode or loss of consciousness Episode of chest pain while in the ambulance Underlying history of paroxysmal atrial fibrillation, maintained on Coumadin however her INR was subtherapeutic at 1.2 on presentation Evidence of dehydration with electrolyte imbalance with hyponatremia and hyperkalemia Underlying history of chronic kidney disease Underlying history of jxj-vbghavn-vrmwfukgi diabetes mellitus, no evidence of h ypoglycemia Underlying history of hypertension Previous history of cerebellar stroke At this time patient is admitted to telemetry floor Will check echocardiogram and carotid Doppler Corrected electrolytes was normal saline and Kayexalate Recheck labs in a.m. Consult cardiology regarding episode of chest pain, dizziness with fall, questionable loss of consciousness Also for review of Coumadin, patient is subtherapeutic, and assess if he qualifies for a different anticoagulation agent Consult neurology regarding dizziness fall and history of cerebellar stroke Consult nephrology in regard to chronic kidney disease and electrolyte imbalance Will recheck labs and follow closely
--- NOTE | 2021-06-16 16:09 | US ---
EXAMINATION TYPE: US kidneys/renal and bladder DATE OF EXAM: 06/16/2021 COMPARISON: 10/12/2020 CLINICAL HISTORY: 61-year-old male renal failure, left hyro s/p Perc Neph removed rec. TECHNIQUE: Multiple sonographic images of the kidneys and bladder are obtained. FINDINGS: EXAM MEASUREMENTS: Right Kidney: 10.9 x 5.2 x 6.4 cm Left Kidney: Surgically absent Right Kidney: No hydronephrosis. Left Kidney: Surgically absent Bladder: wnl Bilateral Jets seen: right jet seen IMPRESSION: 1. Left kidney surgically absent. 2. No hydronephrosis on the right.
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
[2021-06-16] MEDS ORDERED: WARFARIN 5 MG TAB PO ONE (18:00)
[2021-06-16] MEDS: ATORVASTATIN 80 MG TAB PO SCH (22:07)
[2021-06-16 22:22] LABS: Glucose,Whole Blood 124 mg/dL (75-99)
[2021-06-17] MEDS: SODIUM CHLORIDE 0.9% 1,000 ML IV SCH (00:12)
[2021-06-17 06:15] LABS: INR 3.8 (<1.2); Prothrombin Time 36.3 sec (9.0-12.0)
[2021-06-17 06:37] LABS: African American GFR (CKD) 54 (>60 ml/min/1.73 sqM); Anion Gap 6 mmol/L; Blood Urea Nitrogen 20 mg/dL (9-20); Calcium 8.3 mg/dL (8.4-10.2); Carbon Dioxide 22 mmol/L (22-30); Chloride 99 mmol/L (98-107); Glucose 69 mg/dL (74-99); Magnesium 1.4 mg/dL (1.6-2.3); Non-African American GFR(CKD) 46 (>60 ml/min/1.73 sqM); Sodium 127 mmol/L (137-145)
[2021-06-17] MEDS: SYMBICORT 160-4.5 MCG INHALER INHALATION SCH ×2 (07:09→18:39)
[2021-06-17] MEDS: IPRATROPIUM-ALBUTEROL 3 ML NEB INHALATION SCH ×4 (07:09→18:38)
[2021-06-17 07:33] LABS: Folate, Serum 2.8 ng/mL
--- NOTE | 2021-06-17 08:25 | P.PN ---
Subjective Patient is seen in follow-up for acute kidney injury on chronic kidney disease. Renal function improving. Potassium level normal. No chest pain or shortness of breath. Has been voiding. No hematuria. No vomiting or diarrhea. Vital signs are stable. General: The patient appeared well nourished and normally developed. HEENT: Head exam is unremarkable. LUNGS: Breath sounds decreased. HEART: Rate and Rhythm are regular. ABDOMEN: No distention. EXTREMITITES: No edema. Objective - Vital Signs Vital signs: Vital Signs Temp 98.5 F 06/17/21 05:00 Pulse 94 06/17/21 07:18 Resp 20 06/17/21 05:00 BP 102/63 06/17/21 05:00 Pulse Ox 93 L 06/17/21 05:00 Intake & Output 06/16/21 06/17/21 06/17/21 18:59 06:59 18:59 Intake Total 900 Output Total 200 Balance -200 900 Weight 106.594 kg Intake: Intake, IV Titration 900 Amount Sodium Chloride 0.9% 1, 900 000 ml @ 75 mls/hr IV . [id number] [facility] Rx#:[id number] Output: Urine 200 Other: Voiding Method Urinal Urinal - Labs CBC & Chem 7: 06/16/21 05:39 06/17/21 04:58 Labs: Abnormal Lab Results - Last 24 Hours (Table) 06/16/21 06/16/21 06/17/21 Range/Units 05:39 22:15 04:58 PT 36.3 H (9.0-12.0) sec INR 3.8 H (<1.2) Sodium 129 L (135-145) mmol/L Creatinine 1.7 H (0.6-1.5) mg/dL Est GFR (CKD-EPI)AfAm 49.3 L (60.0-200.0) Est GFR (CKD-EPI)NonAf 42.6 L (60.0-200.0) BUN/Creatinine Ratio 9.41 L (12.00-20.00) Ratio Glucose (74-99) mg/dL POC Glucose (mg/dL) 124 H (75-99) mg/dL Calcium 8.0 L (8.7-10.3) mg/dL Magnesium (1.6-2.3) mg/dL Total Protein 5.8 L (6.2-8.2) g/dL Albumin 3.40 L (3.80-4.90) g/dL Albumin/Globulin Ratio 1.42 L (1.60-3.17) g/dL 06/17/21 Range/Units 04:58 PT (9.0-12.0) sec INR (<1.2) Sodium 127 L (135-145) mmol/L Creatinine 1.59 H (0.6-1.5) mg/dL Est GFR (CKD-EPI)AfAm (60.0-200.0) Est GFR (CKD-EPI)NonAf (60.0-200.0) BUN/Creatinine Ratio (12.00-20.00) Ratio Glucose 69 L (74-99) mg/dL POC Glucose (mg/dL) (75-99) mg/dL Calcium 8.3 L (8.7-10.3) mg/dL Magnesium 1.4 L (1.6-2.3) mg/dL Total Protein (6.2-8.2) g/dL Albumin (3.80-4.90) g/dL Albumin/Globulin Ratio (1.60-3.17) g/dL Microbiology - Last 24 Hours (Table) 06/15/21 01:22 Blood Culture - Preliminary Blood No Growth after 48 hours Assessment and Plan Plan: Assessment: 1. Acute kidney injury mostly prerenal improving with IV hydration. Creatinine was 2.2 on admission and is down to 1.59 today. No hydronephrosis noted on kidney ultrasound. UA fairly benign. 2. Chronic kidney disease 3a with baseline creatinine near 1.6-2 secondary to solitary right kidney and obstructive uropathy. 3. Status post left nephrectomy. 4. Status post removal of left nephrostomy tube on 06/11/2021. 5. Hyperkalemia secondary to acute kidney injury and enalapril. Resolved. 6. Diabetes mellitus. 7. Hyponatremia from acute kidney injury and poor solute intake. 8. Hypomagnesemia from poor intake. Plan: Hep-Lock IV fluids. 1500 mL fluid restriction. Encouraged oral intake. Replace magnesium. Avoid nephrotoxins. Hold clonidine for systolic blood pressure less than 120.
[2021-06-17] MEDS: cloNIDine HCL 0.2 MG TAB PO SCH (08:48)
[2021-06-17] MEDS: FAMOTIDINE 20 MG TAB PO SCH (08:50)
[2021-06-17] MEDS: cilostazoL 100 MG TAB PO SCH ×2 (08:50→21:31)
[2021-06-17] MEDS: VENLAFAXINE HCL 75 MG TAB PO SCH ×2 (08:50→21:32)
[2021-06-17] MEDS: TAMSULOSIN 0.4 MG CAP.ER.24H PO SCH (08:50)
[2021-06-17] MEDS: METOPROLOL TARTRATE 25 MG TAB PO SCH ×3 (08:51→21:32)
[2021-06-17] MEDS: PIOGLITAZONE 30 MG TAB PO SCH (08:51)
[2021-06-17] MEDS: MAGNESIUM SULFATE-D5W PMX 1 GM in DEXTROSE/WATER 1 100ML.BAG IVPB SCH ×2 (08:52→11:10)
--- NOTE | 2021-06-17 16:23 | P.PN ---
Subjective Progress Note Date: 06/17/21 Everett Juárez, is a 61-year-old male patient of Dr. Jama, who presented to [facility] emergency room after sustaining a fall, and complaining of generalized weakness and dizziness, patient is not clear whether he passed out or had any loss of consciousness. Patient was also complaining of chest pain in the EMS, EKG was within normal limits and troponin level was less than 0.01 He was evaluated in the emergency room vital examination on presentation revealed a temperature of 97.4 pulse 71 respirations 16 blood pressure 87/50 pulse ox 94% on room air Laboratory data revealed a white blood count of 8.6 hemoglobin 12.0 platelet count 338 INR 1.2 sodium 128 potassium 6.2 chloride 99 CO2 22 BUN 17 creatinine 2.01 lactic acid on presentation 2.1 urine analysis did not reveal evidence of significant infection. Testing in the emergency room revealed EKG revealed normal sinus rhythm normal EKG chest x-ray done in the emergency room revealed no acute lung disease there was prominent pulmonary leon that could be related to adenopathy. 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 Patient was admitted to medical floor for further evaluation and treatment. Past medical history is significant for history of hypertension, history of hyperlipidemia, history of chronic kidney disease, history of gav-wvabeei-vngiucvgv diabetes mellitus, history of previous stroke, history of paroxysmal atrial fibrillation maintained on Coumadin, history of COPD, patient still smoke a few cigarettes per day, he denies alcohol use. On review of systems Patient is alert and responsive in no distress, he denies any complaints there is no fever or chills no headache or dizziness no chest pain no shortness of breath no palpitation no cough no nausea or vomiting no abdominal pain no diarrhea no blood in the stools no burning with urination no frequency or urgency and no hematuria, there is no weakness or numbness in any of the extremities no change in vision speech, gait was not tested. On 06/16/2021 patient was seen and examined on the medical floor he is alert and oriented 3 in no apparent distress he is complaining of generalized weakness otherwise he denies any complaints there is no fever or chills no headache or dizziness no chest pain no shortness of breath no cough no nausea or vomiting no abdominal pain no diarrhea no blood in the stools no burning with urination no frequency or urgency and no hematuria is no weakness or numbness in any of the extremities there is no change in his vision or speech and gait was not tested On 06/17/2021 Patient was seen and examined on the medical floor, he is alert and oriented x 3 in no distress, he denies any complaints there is no fever or chills no headache or dizziness no chest pain no shortness of breath no palpitation no cough no nausea or vomiting no abdominal pain no diarrhea no blood in the stools no burning with urination no frequency or urgency and no hematuria, there is no weakness or numbness in any of the extremities no change in vision or speech, gait was not tested at this time, patient had significant orthostatic hypotension, this was discussed with cardiology, and dose of Catapres was adjusted down to 0.1 mg by mouth twice a day, patient will be reevaluated by cardiology in a.m. Objective - Vital Signs Vital signs: Vital Signs Temp 98.5 F 06/17/21 05:00 Pulse 94 06/17/21 07:18 Resp 20 06/17/21 05:00 BP 102/63 06/17/21 05:00 Pulse Ox 93 L 06/17/21 05:00 Intake & Output 06/16/21 06/17/21 06/17/21 18:59 06:59 18:59 Intake Total 900 200 Output Total 200 Balance -200 900 200 Weight 106.594 kg Intake: Intake, IV Titration 900 Amount Sodium Chloride 0.9% 1, 900 000 ml @ 75 mls/hr IV . [id number] [facility] Rx#:[id number] Oral 200 Output: Urine 200 Other: Voiding Method Urinal Urinal - Exam In general patient is alert and responsive in no distress HEENT head normocephalic and atraumatic Neck is supple no JVD no goiter no lymphadenopathy no carotid bruit Chest examination is clear to auscultation no crackles no wheezing Cardiac exam reveals regular heart sounds S1 and S2 no gallops no murmurs Abdomen is soft nontender no organomegaly with normal bowel sounds Extremity exam reveals no edema no cyanosis or clubbing Neurological examination reveals no gross focal deficits - Labs CBC & Chem 7: 06/16/21 05:39 06/17/21 04:58 Labs: Abnormal Lab Results - Last 24 Hours (Table) 06/16/21 06/16/21 06/17/21 Range/Units 05:39 22:15 04:58 PT 36.3 H (9.0-12.0) sec INR 3.8 H (<1.2) Sodium 129 L (135-145) mmol/L Creatinine 1.7 H (0.6-1.5) mg/dL Est GFR (CKD-EPI)AfAm 49.3 L (60.0-200.0) Est GFR (CKD-EPI)NonAf 42.6 L (60.0-200.0) BUN/Creatinine Ratio 9.41 L (12.00-20.00) Ratio Glucose (74-99) mg/dL POC Glucose (mg/dL) 124 H (75-99) mg/dL Calcium 8.0 L (8.7-10.3) mg/dL Magnesium (1.6-2.3) mg/dL Total Protein 5.8 L (6.2-8.2) g/dL Albumin 3.40 L (3.80-4.90) g/dL Albumin/Globulin Ratio 1.42 L (1.60-3.17) g/dL 06/17/21 Range/Units 04:58 PT (9.0-12.0) sec INR (<1.2) Sodium 127 L (135-145) mmol/L Creatinine 1.59 H (0.6-1.5) mg/dL Est GFR (CKD-EPI)AfAm (60.0-200.0) Est GFR (CKD-EPI)NonAf (60.0-200.0) BUN/Creatinine Ratio (12.00-20.00) Ratio Glucose 69 L (74-99) mg/dL POC Glucose (mg/dL) (75-99) mg/dL Calcium 8.3 L (8.7-10.3) mg/dL Magnesium 1.4 L (1.6-2.3) mg/dL Total Protein (6.2-8.2) g/dL Albumin (3.80-4.90) g/dL Albumin/Globulin Ratio (1.60-3.17) g/dL Microbiology - Last 24 Hours (Table) 06/15/21 01:22 Blood Culture - Preliminary Blood No Growth after 48 hours Assessment and Plan Plan: Fall at home with unclear history whether patient had a syncopal episode or loss of consciousness Episode of chest pain while in the ambulance Underlying history of paroxysmal atrial fibrillation, maintained on Coumadin however her INR was subtherapeutic at 1.2 on presentation Evidence of dehydration with electrolyte imbalance with hyponatremia and hyperkalemia Underlying history of chronic kidney disease Underlying history of vkh-tpukfzn-ppyrapyiy diabetes mellitus, no evidence of hypoglycemia Underlying history of hypertension Previous history of cerebellar stroke At this time patient is admitted to telemetry floor Will check echocardiogram and carotid Doppler Corrected electrolytes was normal saline and Kayexalate Recheck labs in a.m. Consult cardiology regarding episode of chest pain, dizziness with fall, questionable loss of consciousness Also for review of Coumadin, patient is subtherapeutic, and assess if he qualifies for a different anticoagulation agent Consult neurology regarding dizziness fall and history of cerebellar stroke Consult nephrology in regard to chronic kidney disease and electrolyte imbalance Will recheck labs and follow closely
[2021-06-17] MEDS ORDERED: WARFARIN 0.5 MG TAB PO ONE (18:00)
[2021-06-17] MEDS: ATORVASTATIN 80 MG TAB PO SCH (21:31)
[2021-06-17] MEDS: cloNIDine HCL 0.1 MG TAB PO SCH (21:31)
[2021-06-18 06:38] LABS: Basophils % (A) 0 %; Eosinophils % (A) 1 %; HCT 28.8 % (39.0-53.0); Lymphocytes # (A) 0.4 k/uL (1.0-4.8); Lymphocytes % (A) 9 %; MCH 38.4 pg (25.0-35.0); MCHC 34.7 g/dL (31.0-37.0); MCV 110.5 fL (80.0-100.0); Macrocytosis Marked; Mean Platelet Volume 7.1; Monocytes # (A) 0.2 k/uL (0-1.0); Monocytes % (A) 4 %; Neutrophils # (A) 4.1 k/uL (1.3-7.7); Neutrophils % (A) 85 %; Platelet Count 220 k/uL (150-450); RBC 2.61 m/uL (4.30-5.90); WBC 4.9 k/uL (3.8-10.6)
[2021-06-18 06:57] LABS: Prothrombin Time 38.5 sec (9.0-12.0)
[2021-06-18] MEDS: SYMBICORT 160-4.5 MCG INHALER INHALATION SCH ×2 (08:07→19:59)
[2021-06-18] MEDS: IPRATROPIUM-ALBUTEROL 3 ML NEB INHALATION SCH ×4 (08:07→19:58)
[2021-06-18] MEDS: FAMOTIDINE 20 MG TAB PO SCH (08:36)
[2021-06-18] MEDS: PIOGLITAZONE 30 MG TAB PO SCH (08:36)
[2021-06-18] MEDS: VENLAFAXINE HCL 75 MG TAB PO SCH ×2 (08:36→21:14)
[2021-06-18] MEDS: METOPROLOL TARTRATE 25 MG TAB PO SCH ×3 (08:36→21:14)
[2021-06-18] MEDS: cilostazoL 100 MG TAB PO SCH ×2 (08:36→21:14)
[2021-06-18] MEDS: TAMSULOSIN 0.4 MG CAP.ER.24H PO SCH (08:37)
[2021-06-18] MEDS: cloNIDine HCL 0.1 MG TAB PO SCH ×2 (08:37→21:14)
--- NOTE | 2021-06-18 09:12 | P.PN ---
Subjective Patient is seen in follow-up for acute kidney injury on chronic kidney disease. Renal function improving. Potassium level normal. No chest pain or shortness of breath. Has been voiding. No hematuria. No vomiting or diarrhea. No changes overnight. Vital signs are stable. General: The patient appeared well nourished and normally developed. HEENT: Head exam is unremarkable. LUNGS: Breath sounds decreased. HEART: Rate and Rhythm are regular. ABDOMEN: No distention. EXTREMITITES: No edema. Objective - Vital Signs Vital signs: Vital Signs Temp 98.8 F 06/18/21 04:44 Pulse 97 06/18/21 04:44 Resp 20 06/18/21 04:44 BP 161/66 06/18/21 04:44 Pulse Ox 90 L 06/18/21 04:44 Intake & Output 06/17/21 06/18/21 06/18/21 18:59 06:59 18:59 Intake Total 1270 1000 Balance 1270 1000 Weight 106.594 kg Intake: Intake, IV Titration 650 1000 Amount Magnesium Sulfate-D5w Pmx 100 1 gm In Dextrose/Water 1 100ml.bag @ 100 mls/hr IVPB Q1H [facility] Rx#: [id number] Sodium Chloride 0.9% 1, 650 900 000 ml @ 75 mls/hr IV . [id number] [facility] Rx#:[id number] Oral 620 0 Other: Voiding Method Urinal # Voids 2 - Labs CBC & Chem 7: 06/18/21 06:12 06/17/21 04:58 Labs: Abnormal Lab Results - Last 24 Hours (Table) 06/18/21 06/18/21 Range/Units 06:12 06:12 RBC 2.61 L (4.30-5.90) m/uL Hgb 10.0 L D (13.0-17.5) gm/dL Hct 28.8 L (39.0-53.0) % MCV 110.5 H (80.0-100.0) fL MCH 38.4 H (25.0-35.0) pg Lymphocytes # 0.4 L (1.0-4.8) k/uL Macrocytosis Marked A PT 38.5 H (9.0-12.0) sec INR 4.0 H (<1.2) Microbiology - Last 24 Hours (Table) 09/09/21 01:22 Blood Culture - Preliminary Blood No Growth after 72 hours Assessment and Plan Plan: Assessment: 1. Acute kidney injury mostly prerenal improving with IV hydration. Creatinine was 2.2 on admission and is down to 1.59 yesterday. No hydronephrosis noted on kidney ultrasound. UA fairly benign. 2. Chronic kidney disease 3a with baseline creatinine near 1.6-2 secondary to solitary right kidney and obstructive uropathy. 3. Status post left nephrectomy. 4. Status post removal of left nephrostomy tube on 06/11/2021. 5. Hyperkalemia secondary to acute kidney injury and enalapril. Resolved. 6. Diabetes mellitus. 7. Hyponatremia from acute kidney injury and poor solute intake. 8. Hypomagnesemia from poor intake. Replaced. Plan: 1500 mL fluid restriction. Encouraged oral intake. Avoid nephrotoxins. Hold clonidine for systolic blood pressure less than 120. Morning labs pending.
[2021-06-18 10:26] LABS: African American GFR (CKD) 53.1 (60.0-200.0); Albumin/Globulin Ratio 1.36 (1.60-3.17); Anion Gap 6.5 mmol/L (4.00-12.00); Calcium 7.8 mg/dL (8.7-10.3); Carbon Dioxide 22.5 mmol/L (21.6-31.8); Globulin 2.2 g/dL (1.6-3.3); Magnesium 1.5 mg/dL (1.5-2.4); Non-African American GFR(CKD) 45.8 (60.0-200.0); Total Bilirubin 0.6 mg/dL (0.2-1.2); Total Protein 5.2 g/dL (6.2-8.2)
--- NOTE | 2021-06-18 13:10 | P.PN ---
Subjective Progress Note Date: 06/18/21 Everett Juárez, is a 61-year-old male patient of Dr. Jama, who presented to [facility] emergency room after sustaining a fall, and complaining of generalized weakness and dizziness, patient is not clear whether he passed out or had any loss of consciousness. Patient was also complaining of chest pain in the EMS, EKG was within normal limits and troponin level was less than 0.01 He was evaluated in the emergency room vital examination on presentation revealed a temperature of 97.4 pulse 71 respirations 16 blood pressure 87/50 pulse ox 94% on room air Laboratory data revealed a white blood count of 8.6 hemoglobin 12.0 platelet count 338 INR 1.2 sodium 128 potassium 6.2 chloride 99 CO2 22 BUN 17 creatinine 2.01 lactic acid on presentation 2.1 urine analysis did not reveal evidence of significant infection. Testing in the emergency room revealed EKG revealed normal sinus rhythm normal EKG chest x-ray done in the emergency room revealed no acute lung disease there was prominent pulmonary leon that could be related to adenopathy. 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 Patient was admitted to medical floor for further evaluation and treatment. Past medical history is significant for history of hypertension, history of hyperlipidemia, history of chronic kidney disease, history of bik-mbjdixl-taoyjdmcw diabetes mellitus, history of previous stroke, history of paroxysmal atrial fibrillation maintained on Coumadin, history of COPD, patient still smoke a few cigarettes per day, he denies alcohol use. On review of systems Patient is alert and responsive in no distress, he denies any complaints there is no fever or chills no headache or dizziness no chest pain no shortness of breath no palpitation no cough no nausea or vomiting no abdominal pain no diarrhea no blood in the stools no burning with urination no frequency or urgency and no hematuria, there is no weakness or numbness in any of the extremities no change in vision speech, gait was not tested. On 06/16/2021 patient was seen and examined on the medical floor he is alert and oriented 3 in no apparent distress he is complaining of generalized weakness otherwise he denies any complaints there is no fever or chills no headache or dizziness no chest pain no shortness of breath no cough no nausea or vomiting no abdominal pain no diarrhea no blood in the stools no burning with urination no frequency or urgency and no hematuria is no weakness or numbness in any of the extremities there is no change in his vision or speech and gait was not tested On 06/17/2021 Patient was seen and examined on the medical floor, he is alert and oriented x 3 in no distress, he denies any complaints there is no fever or chills no headache or dizziness no chest pain no shortness of breath no palpitation no cough no nausea or vomiting no abdominal pain no diarrhea no blood in the stools no burning with urination no frequency or urgency and no hematuria, there is no weakness or numbness in any of the extremities no change in vision or speech, gait was not tested at this time, patient had significant orthostatic hypotension, this was discussed with cardiology, and dose of Catapres was adjusted down to 0.1 mg by mouth twice a day, patient will be reevaluated by cardiology in a.m. On 06/18/2021 patient was seen and examined on the medical floor, he is alert and oriented 3 in no distress, he is complaining of weakness otherwise he denies any specific complaints, there is no fever or chills no headache or dizziness no chest pain no shortness of breath no cough no nausea or vomiting no abdominal pain no diarrhea no blood in the stools no burning with urination no frequency or urgency no hematuria, there is no weakness or numbness in any of the extremities there is no change in vision speech or gait. Repeat orthostatic hypotension reveals significant drop while standing, cardiology are following, yesterday dose of Catapres was decreased to 0.1 by mouth twice daily, awaiting further recommendation from cardiology Objective - Vital Signs Vital signs: Vital Signs Temp 98.8 F 06/18/21 04:44 Pulse 100 06/18/21 11:09 Resp 20 06/18/21 04:44 BP 161/66 06/18/21 04:44 Pulse Ox 90 L 06/18/21 04:44 Intake & Output 06/17/21 06/18/21 06/18/21 18:59 06:59 18:59 Intake Total 1270 1000 Balance 1270 1000 Weight 106.594 kg Intake: Intake, IV Titration 650 1000 Amount Magnesium Sulfate-D5w Pmx 100 1 gm In Dextrose/Water 1 100ml.bag @ 100 mls/hr IVPB Q1H [facility] Rx#: [id number] Sodium Chloride 0.9% 1, 650 900 000 ml @ 75 mls/hr IV . [id number] [facility] Rx#:[id number] Oral 620 0 Other: Voiding Method Urinal # Voids 2 - Exam In general patient is alert and responsive in no distress HEENT head normocephalic and atraumatic Neck is supple no JVD no goiter no lymphadenopathy no carotid bruit Chest examination is clear to auscultation no crackles no wheezing Cardiac exam reveals regular heart sounds S1 and S2 no gallops no murmurs Abdomen is soft nontender no organomegaly with normal bowel sounds Extremity exam reveals no edema no cyanosis or clubbing Neurological examination reveals no gross focal deficits - Labs CBC & Chem 7: 06/18/21 06:12 06/18/21 06:12 Labs: Abnormal Lab Results - Last 24 Hours (Table) 06/18/21 06/18/21 06/18/21 Range/Units 06:12 06:12 06:12 RBC 2.61 L (4.30-5.90) m/uL Hgb 10.0 L D (13.0-17.5) gm/dL Hct 28.8 L (39.0-53.0) % MCV 110.5 H (80.0-100.0) fL MCH 38.4 H (25.0-35.0) pg Lymphocytes # 0.4 L (1.0-4.8) k/uL Macrocytosis Marked A PT 38.5 H (9.0-12.0) sec INR 4.0 H (<1.2) Sodium 128 L (135-145) mmol/L Creatinine 1.6 H (0.6-1.5) mg/dL Est GFR (CKD-EPI)AfAm 53.1 L (60.0-200.0) Est GFR (CKD-EPI)NonAf 45.8 L (60.0-200.0) Glucose 61 L (70-110) mg/dL Calcium 7.8 L (8.7-10.3) mg/dL Total Protein 5.2 L (6.2-8.2) g/dL Albumin 3.00 L (3.80-4.90) g/dL Albumin/Globulin Ratio 1.36 L (1.60-3.17) g/dL Microbiology - Last 24 Hours (Table) 06/15/21 01:22 Blood Culture - Preliminary Blood No Growth after 72 hours Assessment and Plan Plan: Fall at home with unclear history whether patient had a syncopal episode or loss of consciousness Episode of chest pain while in the ambulance Underlying history of paroxysmal atrial fibrillation, maintained on Coumadin how ever her INR was subtherapeutic at 1.2 on presentation Evidence of dehydration with electrolyte imbalance with hyponatremia and hyperkalemia Underlying history of chronic kidney disease Underlying history of ptk-zpuurax-rflbuhzrc diabetes mellitus, no evidence of hypoglycemia Underlying history of hypertension Previous history of cerebellar stroke At this time patient is admitted to telemetry floor Will check echocardiogram and carotid Doppler Corrected electrolytes was normal saline and Kayexalate Recheck labs in a.m. Consult cardiology regarding episode of chest pain, dizziness with fall, questionable loss of consciousness Also for review of Coumadin, patient is subtherapeutic, and assess if he qualifies for a different anticoagulation agent Consult neurology regarding dizziness fall and history of cerebellar stroke Consult nephrology in regard to chronic kidney disease and electrolyte imbalance Will recheck labs and follow closely
--- NOTE | 2021-06-18 14:05 | P.PN ---
Subjective Progress Note Date: 06/18/21 This is a 61-year-old male with a past medical history significant for diabetes, hypertension, hyperlipidemia, paroxysmal atrial fibrillation, and peripheral arterial disease. Patient follows in the office with Dr. Gonzalez. We were asked to see the patient in consultation for possible syncope, atrial fibrillation. Patient is A poor historian. Patient is admitted to the hospital secondary to a fall. The patient is unsure if he lost consciousness. He had significant orthostatic blood pressure changes. Medications were adjusted. The patient otherwise is having symptoms of dizziness upon standing at times but not always. There are no recent orthostatic blood pressures documented on the patient. Objective - Vital Signs Vital signs: Vital Signs Temp 97.3 F L 06/18/21 12:02 Pulse 95 06/18/21 12:02 Resp 20 06/18/21 12:02 BP 116/64 06/18/21 12:02 Pulse Ox 96 06/18/21 12:02 Intake & Output 06/17/21 06/18/21 06/18/21 18:59 06:59 18:59 Intake Total 1270 1000 Balance 1270 1000 Weight 106.594 kg Intake: Intake, IV Titration 650 1000 Amount Magnesium Sulfate-D5w Pmx 100 1 gm In Dextrose/Water 1 100ml.bag @ 100 mls/hr IVPB Q1H [facility] Rx#: [id number] Sodium Chloride 0.9% 1, 650 900 000 ml @ 75 mls/hr IV . [id number] [facility] Rx#:[id number] Oral 620 0 Other: Voiding Method Urinal # Voids 2 - Exam PHYSICAL EXAMINATION: HEENT: Head is atraumatic, normocephalic. Pupils equal, round. Neck is supple. There is no elevated jugular venous pressure. HEART EXAMINATION: Heart sounds regular, S1 and S2 normal. No murmur or gallop heard. CHEST EXAMINATION: Lungs reveal coarse wheezing throughout with scattered rhonchi. Patient has productive cough with greenish addison and colored sputum No chest wall tenderness is noted on palpation or with deep breathing. ABDOMEN: Soft, nontender. Bowel sounds are heard. No organomegaly noted. EXTREMITIES: 2+ peripheral pulses with no evidence of peripheral edema and no calf tenderness noted. NEUROLOGIC patient is drowsy, oriented to person and place. . - Labs CBC & Chem 7: 06/18/21 06:12 06/18/21 06:12 Labs: Abnormal Lab Results - Last 24 Hours (Table) 06/18/21 06/18/21 06/18/21 Range/Units 06:12 06:12 06:12 RBC 2.61 L (4.30-5.90) m/uL Hgb 10.0 L D (13.0-17.5) gm/dL Hct 28.8 L (39.0-53.0) % MCV 110.5 H (80.0-100.0) fL MCH 38.4 H (25.0-35.0) pg Lymphocytes # 0.4 L (1.0-4.8) k/uL Macrocytosis Marked A PT 38.5 H (9.0-12.0) sec INR 4.0 H (<1.2) Sodium 128 L (135-145) mmol/L Creatinine 1.6 H (0.6-1.5) mg/dL Est GFR (CKD-EPI)AfAm 53.1 L (60.0-200.0) Est GFR (CKD-EPI)NonAf 45.8 L (60.0-200.0) Glucose 61 L (70-110) mg/dL Calcium 7.8 L (8.7-10.3) mg/dL Total Protein 5.2 L (6.2-8.2) g/dL Albumin 3.00 L (3.80-4.90) g/dL Albumin/Globulin Ratio 1.36 L (1.60-3.17) g/dL Microbiology - Last 24 Hours (Table) 06/15/21 01:22 Blood Culture - Preliminary Blood No Growth after 72 hours Assessment and Plan Assessment: Status post fall likely secondary to orthostatic drop in blood pressure Hyperkalemia Paroxysmal atrial fibrillation on anticoagulation with Coumadin Obstructive sleep apnea History of CVA Peripheral arterial disease Hypertension Hyperlipidemia Diabetes mellitus Plan: From smasher perspective we will have orthostatic vital signs checked again on this patient. Depending on the findings further recommendations will be made in regards to her pressure medications. We will continue to follow the patient and provide further recommendations accordingly. AGENCY TRAINER note has been reviewed, I agree with a documented findings and plan of care. Patient was seen and examined.
[2021-06-18] MEDS ORDERED: WARFARIN 0.5 MG TAB PO ONE (18:00)
[2021-06-18] MEDS: ATORVASTATIN 80 MG TAB PO SCH (21:14)
[2021-06-19 07:17] LABS: Basophils % (A) 0 %; Eosinophils # (A) 0.1 k/uL (0-0.7); Eosinophils % (A) 1 %; HCT 29.5 % (39.0-53.0); HGB 10.1 gm/dL (13.0-17.5); Lymphocytes # (A) 0.5 k/uL (1.0-4.8); Lymphocytes % (A) 15 %; MCHC 34.4 g/dL (31.0-37.0); MCV 110.6 fL (80.0-100.0); Macrocytosis Marked; Mean Platelet Volume 7.1; Monocytes # (A) 0.2 k/uL (0-1.0); Monocytes % (A) 6 %; Neutrophils # (A) 2.6 k/uL (1.3-7.7); Neutrophils % (A) 75 %; Platelet Count 248 k/uL (150-450); RBC 2.67 m/uL (4.30-5.90); RDW 14.9 % (11.5-15.5); WBC 3.4 k/uL (3.8-10.6)
[2021-06-19 07:24] LABS: INR 3.7 (<1.2)
[2021-06-19] MEDS: IPRATROPIUM-ALBUTEROL 3 ML NEB INHALATION SCH ×4 (07:28→21:06)
[2021-06-19] MEDS: SYMBICORT 160-4.5 MCG INHALER INHALATION SCH ×2 (07:28→21:06)
[2021-06-19] MEDS: TAMSULOSIN 0.4 MG CAP.ER.24H PO SCH (08:12)
[2021-06-19] MEDS: PIOGLITAZONE 30 MG TAB PO SCH (08:12)
[2021-06-19] MEDS: METOPROLOL TARTRATE 25 MG TAB PO SCH ×3 (08:12→21:15)
[2021-06-19] MEDS: cilostazoL 100 MG TAB PO SCH ×2 (08:12→21:15)
[2021-06-19] MEDS: FAMOTIDINE 20 MG TAB PO SCH (08:12)
[2021-06-19] MEDS: FOLIC ACID 1 MG TAB PO SCH (08:12)
[2021-06-19] MEDS: VENLAFAXINE HCL 75 MG TAB PO SCH ×2 (08:13→21:15)
[2021-06-19] MEDS ORDERED: cloNIDine HCL 0.1 MG TAB PO SCH (09:00)
[2021-06-19 09:09] LABS: Poikilocytosis (M) Present
--- NOTE | 2021-06-19 09:57 | P.PN ---
Subjective Patient is seen in follow-up for acute kidney injury on chronic kidney disease. Renal function improved from admission. Potassium level normal. No chest pain or shortness of breath. Has been voiding. No hematuria. No vomiting or diarrhea. No changes overnight. Noted to have orthostatic hypotension. Vital signs are stable. General: The patient appeared well nourished and normally developed. HEENT: Head exam is unremarkable. LUNGS: Breath sounds decreased. HEART: Rate and Rhythm are regular. ABDOMEN: No distention. EXTREMITITES: No edema. Objective - Vital Signs Vital signs: Vital Signs Temp 97.6 F 06/19/21 08:54 Pulse 100 06/19/21 07:39 Resp 18 06/19/21 08:54 BP 117/62 06/19/21 08:54 Pulse Ox 95 06/19/21 08:54 Intake & Output 06/18/21 06/19/21 06/19/21 18:59 06:59 18:59 Intake Total 1180 Output Total 350 400 Balance 830 -400 Intake: Oral 1180 Output: Urine 350 400 Other: Voiding Method Urinal - Labs CBC & Chem 7: 06/19/21 06:46 06/18/21 06:12 Labs: Abnormal Lab Results - Last 24 Hours (Table) 06/18/21 06/19/21 06/19/21 Range/Units 06:12 06:46 06:46 WBC 3.4 L (3.8-10.6) k/uL RBC 2.67 L (4.30-5.90) m/uL Hgb 10.1 L (13.0-17.5) gm/dL Hct 29.5 L (39.0-53.0) % MCV 110.6 H (80.0-100.0) fL MCH 38.0 H (25.0-35.0) pg Lymphocytes # 0.5 L (1.0-4.8) k/uL Macrocytosis Marked A PT 36.0 H (9.0-12.0) sec INR 3.7 H (<1.2) Sodium 128 L (135-145) mmol/L Creatinine 1.6 H (0.6-1.5) mg/dL Est GFR (CKD-EPI)AfAm 53.1 L (60.0-200.0) Est GFR (CKD-EPI)NonAf 45.8 L (60.0-200.0) Glucose 61 L (70-110) mg/dL Calcium 7.8 L (8.7-10.3) mg/dL Total Protein 5.2 L (6.2-8.2) g/dL Albumin 3.00 L (3.80-4.90) g/dL Albumin/Globulin Ratio 1.36 L (1.60-3.17) g/dL Microbiology - Last 24 Hours (Table) 06/15/21 01:22 Blood Culture - Preliminary Blood No Growth after 96 hours Assessment and Plan Plan: Assessment: 1. Acute kidney injury mostly prerenal improving with IV hydration. Creatinine was 2.2 on admission and is down to 1.6 yesterday. No hydronephrosis noted on kidney ultrasound. UA fairly benign. 2. Chronic kidney disease 3a with baseline creatinine near 1.6-2 secondary to solitary right kidney and obstructive uropathy. 3. Status post left nephrectomy. 4. Status post removal of left nephrostomy tube on 06/11/2021. 5. Hyperkalemia secondary to acute kidney injury and enalapril. Resolved. 6. Diabetes mellitus. 7. Hyponatremia from acute kidney injury and poor solute intake. 8. Hypomagnesemia from poor intake. Replaced. 9. Orthostatic hypotension. Cardiology following. Plan: 1500 mL fluid restriction. Encouraged oral intake. Avoid nephrotoxins. Morning labs pending. ANTONIO inhibitor and clonidine stopped. Check a.m. cortisol level. Add midodrine.
[2021-06-19] MEDS: MIDODRINE 5 MG TAB PO SCH ×2 (10:22→17:19)
--- NOTE | 2021-06-19 11:40 | P.PN ---
Subjective Progress Note Date: 06/19/21 HISTORY OF PRESENT ILLNESS: This is a 61-year-old male with a past medical history significant for diabetes, hypertension, hyperlipidemia, paroxysmal atrial fibrillation, and peripheral arterial disease. Patient follows in the office with Dr. Gonzalez. We have been asked to see the patient in consultation for possible syncope, atrial fibrillation. Patient examined at the bedside in the emergency room. A poor historian. Patient is admitted to the hospital secondary to a fall. The patient is unsure if he lost consciousness. He currently denies chest pain or pressure. He denies shortness of breath. EKG on arrival reveals sinus mechanism. Chest xray no acute lung disease. Laboratory data: WBC 8.2. Hemoglobin 11.8. Platelet count 271. Sodium 129. Potassium 6.2. Repeat 5.0. BUN 16. Creatinine 1.7. Troponin negative 3. TSH 2.570. Current home cardiac medications include warfarin 5 mg daily, Catapres 0.2 mg twice a day, Pletal 50 mg twice a day, metoprolol tartrate 25 mg 3 times a day, Vasotec 10 mg twice a day, Lipitor 80 mg daily Patient underwent dobutamine stress echo in December 2019 revealing no evidence for reversible ischemia Echocardiogram completed in December 2019 revealed normal ejection fraction, mild MR and mild TR 06/19/2021 Patient was found to have orthostatic blood pressures over the weekend. His Vasotec was discontinued and his Catapres was decreased. Patient denies dizziness or lightheadedness. He states he has been walking around in his room. He denies shortness of breath or chest pain. Patient's orthostatic blood pressures this morning remained positive. Supine blood pressure 117/62. Sitting blood pressure 91/53. Standing blood pressure 70/53. PHYSICAL EXAM: VITAL SIGNS: Reviewed. GENERAL: Well-developed in no acute distress. HEENT: Head is normocephalic. Pupils are equal, round. Sclerae anicteric. Mucous membranes of the mouth are moist. Neck supple. No JVD or thyromegaly LUNGS: Respirations even and unlabored. Lungs diminished to auscultation bilaterally. HEART: Regular rate and rhythm. S1 and S2 heard. ABDOMEN: Soft. Nondistended. Nontender. EXTREMITIES: Normal range of motion. No clubbing or cyanosis. Peripheral pulses intact. No lower extremity edema NEUROLOGIC: Awake and alert. Oriented x 3. ASSESSMENT: Status post fall likely secondary to orthostatic hypotension Hyperkalemia Paroxysmal atrial fibrillation on anticoagulation with Coumadin Obstructive sleep apnea History of CVA Peripheral arterial disease Hypertension Hyperlipidemia Diabetes mellitus PLAN: Continue to hold Vasotec Discontinue Catapres Continue metoprolol secondary to history of atrial fibrillation Midodrine added per nephrology Recheck orthostatic blood pressures in the morning Further recommendations pending patient course Nurse practitioner note has been reviewed by physician. Signing provider agrees with the documented findings, assessment, and plan of care. Objective - Vital Signs Vital signs: Vital Signs Temp 97.6 F 06/19/21 08:54 Pulse 92 06/19/21 11:01 Resp 18 06/19/21 08:54 BP 117/62 06/19/21 08:54 Pulse Ox 95 06/19/21 08:54 Intake & Output 06/18/21 06/19/21 06/19/21 18:59 06:59 18:59 Intake Total 1180 Output Total 350 400 Balance 830 -400 Intake: Oral 1180 Output: Urine 350 400 Other: Voiding Method Urinal - Labs CBC & Chem 7: 06/19/21 06:46 06/18/21 06:12 Labs: Abnormal Lab Results - Last 24 Hours (Table) 06/19/21 06/19/21 Range/Units 06:46 06:46 WBC 3.4 L (3.8-10.6) k/uL RBC 2.67 L (4.30-5.90) m/uL Hgb 10.1 L (13.0-17.5) gm/dL Hct 29.5 L (39.0-53.0) % MCV 110.6 H (80.0-100.0) fL MCH 38.0 H (25.0-35.0) pg Lymphocytes # 0.5 L (1.0-4.8) k/uL Macrocytosis Marked A PT 36.0 H (9.0-12.0) sec INR 3.7 H (<1.2) Microbiology - Last 24 Hours (Table) 06/15/21 01:22 Blood Culture - Preliminary Blood No Growth after 96 hours
[2021-06-19 12:57] LABS: African American GFR (CKD) 53.1 (60.0-200.0); Albumin/Globulin Ratio 1.36 (1.60-3.17); Anion Gap 1.8 mmol/L (4.00-12.00); Calcium 7.8 mg/dL (8.7-10.3); Carbon Dioxide 28.2 mmol/L (21.6-31.8); Globulin 2.2 g/dL (1.6-3.3); Magnesium 1.5 mg/dL (1.5-2.4); Non-African American GFR(CKD) 45.8 (60.0-200.0); Potassium 3.9 mmol/L (3.5-5.5); Total Bilirubin 0.7 mg/dL (0.2-1.2); Total Protein 5.2 g/dL (6.2-8.2)
--- NOTE | 2021-06-19 15:43 | P.PN ---
Subjective Progress Note Date: 06/19/21 Everett Juárez, is a 61-year-old male patient of Dr. Jama, who presented to [facility] emergency room after sustaining a fall, and complaining of generalized weakness and dizziness, patient is not clear whether he passed out or had any loss of consciousness. Patient was also complaining of chest pain in the EMS, EKG was within normal limits and troponin level was less than 0.01 He was evaluated in the emergency room vital examination on presentation revealed a temperature of 97.4 pulse 71 respirations 16 blood pressure 87/50 pulse ox 94% on room air Laboratory data revealed a white blood count of 8.6 hemoglobin 12.0 platelet count 338 INR 1.2 sodium 128 potassium 6.2 chloride 99 CO2 22 BUN 17 creatinine 2.01 lactic acid on presentation 2.1 urine analysis did not reveal evidence of significant infection. Testing in the emergency room revealed EKG revealed normal sinus rhythm normal EKG chest x-ray done in the emergency room revealed no acute lung disease there was prominent pulmonary leon that could be related to adenopathy. 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 Patient was admitted to medical floor for further evaluation and treatment. Past medical history is significant for history of hypertension, history of hyperlipidemia, history of chronic kidney disease, history of ust-cnhqgsu-atyddfvyy diabetes mellitus, history of previous stroke, history of paroxysmal atrial fibrillation maintained on Coumadin, history of COPD, patient still smoke a few cigarettes per day, he denies alcohol use. On review of systems Patient is alert and responsive in no distress, he denies any complaints there is no fever or chills no headache or dizziness no chest pain no shortness of breath no palpitation no cough no nausea or vomiting no abdominal pain no diarrhea no blood in the stools no burning with urination no frequency or urgency and no hematuria, there is no weakness or numbness in any of the extremities no change in vision speech, gait was not tested. On 06/16/2021 patient was seen and examined on the medical floor he is alert and oriented 3 in no apparent distress he is complaining of generalized weakness otherwise he denies any complaints there is no fever or chills no headache or dizziness no chest pain no shortness of breath no cough no nausea or vomiting no abdominal pain no diarrhea no blood in the stools no burning with urination no frequency or urgency and no hematuria is no weakness or numbness in any of the extremities there is no change in his vision or speech and gait was not tested On 06/17/2021 Patient was seen and examined on the medical floor, he is alert and oriented x 3 in no distress, he denies any complaints there is no fever or chills no headache or dizziness no chest pain no shortness of breath no palpitation no cough no nausea or vomiting no abdominal pain no diarrhea no blood in the stools no burning with urination no frequency or urgency and no hematuria, there is no weakness or numbness in any of the extremities no change in vision or speech, gait was not tested at this time, patient had significant orthostatic hypotension, this was discussed with cardiology, and dose of Catapres was adjusted down to 0.1 mg by mouth twice a day, patient will be reevaluated by cardiology in a.m. On 06/18/2021 patient was seen and examined on the medical floor, he is alert and oriented 3 in no distress, he is complaining of weakness otherwise he denies any specific complaints, there is no fever or chills no headache or dizziness no chest pain no shortness of breath no cough no nausea or vomiting no abdominal pain no diarrhea no blood in the stools no burning with urination no frequency or urgency no hematuria, there is no weakness or numbness in any of the extremities there is no change in vision speech or gait. Repeat orthostatic hypotension reveals significant drop while standing, cardiology are following, yesterday dose of Catapres was decreased to 0.1 by mouth twice daily, awaiting further recommendation from cardiology On 06/19/2021 patient was seen and examined on the medical floor, he is alert and oriented 3 in no distress, he is complaining of weakness otherwise he denies any specific complaints, he is still having significant orthostatic hypotension was significant drop in blood pressure when patient stands up. there is no fever or chills no headache or dizziness no chest pain no shortness of breath no cough no nausea or vomiting no abdominal pain no diarrhea no blood in the stools no burning with urination no frequency or urgency no hematuria, there is no weakness or numbness in any of the extremities there is no change in vision speech or gait. Cardiology are following at this time Catapres is being discontinued and midodrine was added to medication regimen will continue to monitor closely Objective - Vital Signs Vital signs: Vital Signs Temp 98.6 F 06/19/21 11:15 Pulse 106 H 06/19/21 11:15 Resp 20 06/19/21 11:15 BP 112/67 06/19/21 11:15 Pulse Ox 95 06/19/21 08:54 Intake & Output 06/18/21 06/19/21 06/19/21 18:59 06:59 18:59 Intake Total 1180 240 Output Total 350 400 Balance 830 -400 240 Intake: Oral 1180 240 Output: Urine 350 400 Other: Voiding Method Urinal - Exam In general patient is alert and responsive in no distress HEENT head normocephalic and atraumatic Neck is supple no JVD no goiter no lymphadenopathy no carotid bruit Chest examination is clear to auscultation no crackles no wheezing Cardiac exam reveals regular heart sounds S1 and S2 no gallops no murmurs Abdomen is soft nontender no organomegaly with normal bowel sounds Extremity exam reveals no edema no cyanosis or clubbing Neurological examination reveals no gross focal deficits - Labs CBC & Chem 7: 06/19/21 06:46 06/19/21 06:46 Labs: Abnormal Lab Results - Last 24 Hours (Table) 06/19/21 06/19/21 06/19/21 Range/Units 06:46 06:46 06:46 WBC 3.4 L (3.8-10.6) k/uL RBC 2.67 L (4.30-5.90) m/uL Hgb 10.1 L (13.0-17.5) gm/dL Hct 29.5 L (39.0-53.0) % MCV 110.6 H (80.0-100.0) fL MCH 38.0 H (25.0-35.0) pg Lymphocytes # 0.5 L (1.0-4.8) k/uL Macrocytosis Marked A PT 36.0 H (9.0-12.0) sec INR 3.7 H (<1.2) Sodium 129 L (135-145) mmol/L Anion Gap 1.80 L (4.00-12.00) mmol/L Creatinine 1.6 H (0.6-1.5) mg/dL Est GFR (CKD-EPI)AfAm 53.1 L (60.0-200.0) Est GFR (CKD-EPI)NonAf 45.8 L (60.0-200.0) Glucose 68 L (70-110) mg/dL Calcium 7.8 L (8.7-10.3) mg/dL Total Protein 5.2 L (6.2-8.2) g/dL Albumin 3.00 L (3.80-4.90) g/dL Albumin/Globulin Ratio 1.36 L (1.60-3.17) g/dL Microbiology - Last 24 Hours (Table) 06/15/21 01:22 Blood Culture - Preliminary Blood No Growth after 96 hours Assessment and Plan Plan: Fall at home with unclear history whether patient had a syncopal episode or loss of consciousness Episode of chest pain while in the ambulance Underlying history of paroxysmal atrial fibrillation, maintained on Coumadin however her INR was subtherapeutic at 1.2 on presentation Evidence of dehydration with electrolyte imbalance with hyponatremia and hyperkalemia Underlying history of chronic kidney disease Underlying history of lal-ysrytnw-eijbpuews diabetes mellitus, no evidence of hypoglycemia Underlying history of hypertension Previous history of cerebellar stroke At this time patient is admitted to telemetry floor Will check echocardiogram and carotid Doppler Corrected electrolytes was normal saline and Kayexalate Recheck labs in a.m. Consult cardiology regarding episode of chest pain, dizziness with fall, questionable loss of consciousness Also for review of Coumadin, patient is subtherapeutic, and assess if he qualifies for a different anticoagulation agent Consult neurology regarding dizziness fall and history of cerebellar stroke Consult nephrology in regard to chronic kidney disease and electrolyte imbalance Will recheck labs and follow closely
--- NOTE | 2021-06-19 15:45 | P.PN ---
Subjective Progress Note Date: 06/16/21 Everett Juárez, is a 61-year-old male patient of Dr. Jama, who presented to [facility] emergency room after sustaining a fall, and complaining of generalized weakness and dizziness, patient is not clear whether he passed out or had any loss of consciousness. Patient was also complaining of chest pain in the EMS, EKG was within normal limits and troponin level was less than 0.01 He was evaluated in the emergency room vital examination on presentation revealed a temperature of 97.4 pulse 71 respirations 16 blood pressure 87/50 pulse ox 94% on room air Laboratory data revealed a white blood count of 8.6 hemoglobin 12.0 platelet count 338 INR 1.2 sodium 128 potassium 6.2 chloride 99 CO2 22 BUN 17 creatinine 2.01 lactic acid on presentation 2.1 urine analysis did not reveal evidence of significant infection. Testing in the emergency room revealed EKG revealed normal sinus rhythm normal EKG chest x-ray done in the emergency room revealed no acute lung disease there was prominent pulmonary leon that could be related to adenopathy. 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 Patient was admitted to medical floor for further evaluation and treatment. Past medical history is significant for history of hypertension, history of hyperlipidemia, history of chronic kidney disease, history of cor-fudcctc-faetrkyas diabetes mellitus, history of previous stroke, history of paroxysmal atrial fibrillation maintained on Coumadin, history of COPD, patient still smoke a few cigarettes per day, he denies alcohol use. On review of systems Patient is alert and responsive in no distress, he denies any complaints there is no fever or chills no headache or dizziness no chest pain no shortness of breath no palpitation no cough no nausea or vomiting no abdominal pain no diarrhea no blood in the stools no burning with urination no frequency or urgency and no hematuria, there is no weakness or numbness in any of the extremities no change in vision speech, gait was not tested. On 06/16/2021 patient was seen and examined on the telemetry floor he is alert and oriented 3 in no apparent distress he is still complaining of dizziness and weakness otherwise he denies any complaints there is no fever or chills no headache no chest pain no shortness of breath no cough no palpitation no nausea or vomiting no abdominal pain no diarrhea no blood in the stools no burning with urination no frequency or urgency and no hematuria there is no weakness or numbness in any of the extremities no change in vision or in speech Objective - Vital Signs Vital signs: Vital Signs Temp 98.9 F 06/15/21 19:59 Pulse 96 06/16/21 07:39 Resp 20 06/16/21 07:39 BP 131/74 06/16/21 07:39 Pulse Ox 93 L 06/16/21 07:39 Intake & Output 06/15/21 06/16/21 06/16/21 18:59 06:59 18:59 Intake Total 240 Output Total 500 Balance -260 Intake: Oral 240 Output: Urine 500 Other: Voiding Method Urinal - Exam In general patient is alert and responsive in no distress HEENT head normocephalic and atraumatic Neck is supple no JVD no goiter no lymphadenopathy no carotid bruit Chest examination is clear to auscultation no crackles no wheezing Cardiac exam reveals regular heart sounds S1 and S2 no gallops no murmurs Abdomen is soft nontender no organomegaly with normal bowel sounds Extremity exam reveals no edema no cyanosis or clubbing Neurological examination reveals no gross focal deficits - Labs CBC & Chem 7: 06/19/21 06:46 06/19/21 06:46 Labs: Abnormal Lab Results - Last 24 Hours (Table) 06/15/21 06/16/21 06/16/21 Range/Units 07:58 05:39 05:39 RBC 3.11 L (4.30-5.90) m/uL Hgb 11.8 L (13.0-17.5) gm/dL Hct 34.3 L (39.0-53.0) % MCV 110.0 H (80.0-100.0) fL MCH 38.0 H (25.0-35.0) pg Lymphocytes # 0.4 L (1.0-4.8) k/uL Macrocytosis Marked A PT 19.0 H (9.0-12.0) sec INR 1.9 H (<1.2) Hemoglobin A1c 6.4 H (4.0-6.0) % Microbiology - Last 24 Hours (Table) 06/15/21 01:22 Blood Culture - Preliminary Blood No Growth after 24 hours Assessment and Plan Plan: Fall at home with unclear history whether patient had a syncopal episode or loss of consciousness Episode of chest pain while in the ambulance Underlying history of paroxysmal atrial fibrillation, maintained on Coumadin however her INR was subtherapeutic at 1.2 on presentation Evidence of dehydration with electrolyte imbalance with hyponatremia and hyperk alemia Underlying history of chronic kidney disease Underlying history of wzr-xrdskqh-oyzcxgrux diabetes mellitus, no evidence of hypoglycemia Underlying history of hypertension Previous history of cerebellar stroke At this time patient is admitted to telemetry floor Will check echocardiogram and carotid Doppler Corrected electrolytes was normal saline and Kayexalate Recheck labs in a.m. Consult cardiology regarding episode of chest pain, dizziness with fall, questionable loss of consciousness Also for review of Coumadin, patient is subtherapeutic, and assess if he qualifies for a different anticoagulation agent Consult neurology regarding dizziness fall and history of cerebellar stroke Consult nephrology in regard to chronic kidney disease and electrolyte imbalance Will recheck labs and follow closely
[2021-06-19] MEDS ORDERED: WARFARIN 0.5 MG TAB PO ONE (18:00)
[2021-06-19] MEDS: CYANOCOBALAMIN 500 MCG TAB PO SCH (21:15)
[2021-06-19] MEDS: ATORVASTATIN 80 MG TAB PO SCH (21:15)
[2021-06-20] MEDS: IPRATROPIUM-ALBUTEROL 3 ML NEB INHALATION SCH ×4 (06:53→19:52)
[2021-06-20] MEDS: SYMBICORT 160-4.5 MCG INHALER INHALATION SCH ×2 (06:54→19:52)
[2021-06-20 06:58] LABS: Basophils % (A) 0 %; Eosinophils % (A) 1 %; HCT 31.3 % (39.0-53.0); HGB 10.7 gm/dL (13.0-17.5); Lymphocytes # (A) 0.4 k/uL (1.0-4.8); Lymphocytes % (A) 11 %; MCH 38.3 pg (25.0-35.0); MCHC 34.4 g/dL (31.0-37.0); MCV 111.4 fL (80.0-100.0); Macrocytosis Marked; Mean Platelet Volume 7.2; Monocytes # (A) 0.2 k/uL (0-1.0); Monocytes % (A) 6 %; Neutrophils # (A) 2.5 k/uL (1.3-7.7); Neutrophils % (A) 78 %; Platelet Count 270 k/uL (150-450); RBC 2.81 m/uL (4.30-5.90); RDW 14.9 % (11.5-15.5); WBC 3.1 k/uL (3.8-10.6)
[2021-06-20 07:08] LABS: Prothrombin Time 28.8 sec (9.0-12.0)
[2021-06-20] MEDS ORDERED: FUROSEMIDE 10 MG/ML 2 ML VIAL IV STA (07:10)
[2021-06-20] MEDS: METOPROLOL TARTRATE 25 MG TAB PO SCH ×3 (07:29→22:29)
[2021-06-20] MEDS: MIDODRINE 5 MG TAB PO SCH ×2 (07:30→17:55)
[2021-06-20 07:31] LABS: Anion Gap 11 mmol/L; Blood Urea Nitrogen 24 mg/dL (9-20); Carbon Dioxide 20 mmol/L (22-30); Chloride 98 mmol/L (98-107); Glucose 100 mg/dL (74-99); Sodium 129 mmol/L (137-145)
[2021-06-20 07:32] LABS: ALT 25 U/L (4-49); AST 48 U/L (17-59); African American GFR (CKD) 54 (>60 ml/min/1.73 sqM); Albumin 2.6 g/dL (3.5-5.0); Alkaline Phosphatase 97 U/L (38-126); Calcium 8.3 mg/dL (8.4-10.2); Globulin 2.7 g/dL; Magnesium 1.7 mg/dL (1.6-2.3); Non-African American GFR(CKD) 46 (>60 ml/min/1.73 sqM); Total Bilirubin 1.1 mg/dL (0.2-1.3); Total Protein 5.3 g/dL (6.3-8.2)
[2021-06-20] MEDS: VENLAFAXINE HCL 75 MG TAB PO SCH ×2 (07:39→22:02)
[2021-06-20] MEDS: cilostazoL 100 MG TAB PO SCH ×2 (07:40→22:01)
[2021-06-20 07:48] LABS: Glucose,Whole Blood 106 mg/dL (75-99)
[2021-06-20] MEDS: PIOGLITAZONE 30 MG TAB PO SCH (07:48)
[2021-06-20] MEDS: CYANOCOBALAMIN 500 MCG TAB PO SCH (07:48)
[2021-06-20] MEDS: TAMSULOSIN 0.4 MG CAP.ER.24H PO SCH (07:48)
[2021-06-20] MEDS: FAMOTIDINE 20 MG TAB PO SCH (07:48)
[2021-06-20] MEDS: FOLIC ACID 1 MG TAB PO SCH (07:48)
--- NOTE | 2021-06-20 08:06 | XR ---
EXAMINATION TYPE: XR chest 1V portable DATE OF EXAM: 06/20/2021 COMPARISON: Chest x-ray 06/15/2021 HISTORY: Congestion TECHNIQUE: Single frontal view of the chest is obtained. FINDINGS: Airspace disease is present within the right lung, there is associated volume loss, elevat ion of right hemidiaphragm. Patient is rotated and the overlying artifacts. There is no evident pneum othorax or pleural effusion. Prominence of the pulmonary arteries persists. Heart size is likely stab le accounting for differences in technique. IMPRESSION: Correlate for right-sided pneumonia, possibly associated atelectasis. Possible underlyin g pulmonary artery hypertension. Follow-up is recommended.
[2021-06-20] MEDS ORDERED: DEXTROSE 5% IN WATER 100 ML with AMIODARONE 150 MG IV ONE ×2 (08:50→13:00)
[2021-06-20] MEDS ORDERED: AMIODARONE 360 MG in DEXTROSE 5% IN WATER 200 ML IV ONE ×4 (09:00→13:10)
--- NOTE | 2021-06-20 10:15 | P.PN ---
Subjective Patient is seen in follow-up for acute kidney injury on chronic kidney disease. Renal function improved from admission. Potassium level normal. No chest pain or shortness of breath. No vomiting or diarrhea. Noted to be in SVT and A. fib this morning and is being started on amiodarone drip. He also received dose of IV Lasix with no urine output. Bladder scan revealed evidence of urinary retention. Lara catheter will be placed. Vital signs are stable. General: The patient appeared well nourished and normally developed. HEENT: Head exam is unremarkable. LUNGS: Breath sounds decreased. HEART: Tachycardic. ABDOMEN: No distention. EXTREMITITES: No edema. Objective - Vital Signs Vital signs: Vital Signs Temp 98.6 F 06/20/21 06:46 Pulse 122 H 06/20/21 09:28 Resp 19 06/20/21 06:46 BP 119/72 06/20/21 09:28 Pulse Ox 94 L 06/20/21 09:28 Intake & Output 06/19/21 06/20/21 06/20/21 18:59 06:59 18:59 Intake Total 480 Output Total 200 Balance 480 -200 Intake: Oral 480 Output: Urine 200 Other: Voiding Method Urinal # Voids 2 - Labs CBC & Chem 7: 06/20/21 06:34 06/20/21 06:34 Labs: Abnormal Lab Results - Last 24 Hours (Table) 06/19/21 06/19/21 06/20/21 Range/Units 06:46 06:46 06:34 WBC (3.8-10.6) k/uL RBC (4.30-5.90) m/uL Hgb (13.0-17.5) gm/dL Hct (39.0-53.0) % MCV (80.0-100.0) fL MCH (25.0-35.0) pg Lymphocytes # (1.0-4.8) k/uL Macrocytosis PT 28.8 H (9.0-12.0) sec INR 3.0 H (<1.2) Sodium 129 L (135-145) mmol/L Carbon Dioxide (22-30) mmol/L Anion Gap 1.80 L (4.00-12.00) mmol/L BUN (9-20) mg/dL Creatinine 1.6 H (0.6-1.5) mg/dL Est GFR (CKD-EPI)AfAm 53.1 L (60.0-200.0) Est GFR (CKD-EPI)NonAf 45.8 L (60.0-200.0) Glucose 68 L (70-110) mg/dL POC Glucose (mg/dL) (75-99) mg/dL Calcium 7.8 L (8.7-10.3) mg/dL Iron 38 L (65-175) ug/dL TIBC 190 L (228-460) ug/dL Total Protein 5.2 L (6.2-8.2) g/dL Albumin 3.00 L (3.80-4.90) g/dL Albumin/Globulin Ratio 1.36 L (1.60-3.17) g/dL 06/20/21 06/20/21 06/20/21 Range/Units 06:34 06:34 07:43 WBC 3.1 L (3.8-10.6) k/uL RBC 2.81 L (4.30-5.90) m/uL Hgb 10.7 L (13.0-17.5) gm/dL Hct 31.3 L (39.0-53.0) % MCV 111.4 H (80.0-100.0) fL MCH 38.3 H (25.0-35.0) pg Lymphocytes # 0.4 L (1.0-4.8) k/uL Macrocytosis Marked A PT (9.0-12.0) sec INR (<1.2) Sodium 129 L (135-145) mmol/L Carbon Dioxide 20 L (22-30) mmol/L Anion Gap (4.00-12.00) mmol/L BUN 24 H (9-20) mg/dL Creatinine 1.59 H (0.6-1.5) mg/dL Est GFR (CKD-EPI)AfAm (60.0-200.0) Est GFR (CKD-EPI)NonAf (60.0-200.0) Glucose 100 H (70-110) mg/dL POC Glucose (mg/dL) 106 H (75-99) mg/dL Calcium 8.3 L (8.7-10.3) mg/dL Iron (65-175) ug/dL TIBC (228-460) ug/dL Total Protein 5.3 L (6.2-8.2) g/dL Albumin 2.6 L (3.80-4.90) g/dL Albumin/Globulin Ratio (1.60-3.17) g/dL Microbiology - Last 24 Hours (Table) 06/15/21 01:22 Blood Culture - Preliminary Blood No Growth after 120 hours Assessment and Plan Plan: Assessment: 1. Acute kidney injury mostly prerenal improving with IV hydration. Creatinine was 2.2 on admission and is down to 1.59 today. No hydronephrosis noted on kidney ultrasound. UA fairly benign. 2. Chronic kidney disease 3a with baseline creatinine near 1.6-2 secondary to solitary right kidney and obstructive uropathy. 3. Status post left nephrectomy. 4. Status post removal of left nephrostomy tube on 06/11/2021. 5. Hyperkalemia secondary to acute kidney injury and enalapril. Resolved. 6. Diabetes mellitus. 7. Hyponatremia from acute kidney injury and poor solute intake. 8. Hypomagnesemia from poor intake. Replaced. 9. Orthostatic hypotension. Cardiology following. On midodrine. 10. Urinary retention. Lara catheter to be placed. 11. A. fib with RVR on amiodarone drip. Plan: Encouraged oral intake. Avoid nephrotoxins. ANTONIO inhibitor and clonidine stopped. Follow-up a.m. cortisol level. Maintain midodrine. He will be transferred to a cardiac floor.
--- NOTE | 2021-06-20 13:35 | P.PN ---
Subjective Progress Note Date: 06/20/21 HISTORY OF PRESENT ILLNESS: This is a 61-year-old male with a past medical history significant for diabetes, hypertension, hyperlipidemia, paroxysmal atrial fibrillation, and peripheral arterial disease. Patient follows in the office with Dr. Gonzalez. We have been asked to see the patient in consultation for possible syncope, atrial fibrillation. Patient examined at the bedside in the emergency room. A poor historian. Patient is admitted to the hospital secondary to a fall. The patient is unsure if he lost consciousness. He currently denies chest pain or pressure. He denies shortness of breath. EKG on arrival reveals sinus mechanism. Chest xray no acute lung disease. Laboratory data: WBC 8.2. Hemoglobin 11.8. Platelet count 271. Sodium 129. Potassium 6.2. Repeat 5.0. BUN 16. Creatinine 1.7. Troponin negative 3. TSH 2.570. Current home cardiac medications include warfarin 5 mg daily, Catapres 0.2 mg twice a day, Pletal 50 mg twice a day, metoprolol tartrate 25 mg 3 times a day, Vasotec 10 mg twice a day, Lipitor 80 mg daily Patient underwent dobutamine stress echo in December 2019 revealing no evidence for reversible ischemia Echocardiogram completed in December 2019 revealed normal ejection fraction, mild MR and mild TR 06/19/2021 Patient was found to have orthostatic blood pressures over the weekend. His Vasotec was discontinued and his Catapres was decreased. Patient denies dizziness or lightheadedness. He states he has been walking around in his room. He denies shortness of breath or chest pain. Patient's orthostatic blood pressures this morning remained positive. Supine blood pressure 117/62. Sitting blood pressure 91/53. Standing blood pressure 70/53. 06/20/2021 Patient was found to be tachycardic this morning with a heart rate in the 180s. EKG completed reveals SVT versus atrial fibrillation with RVR. Patient denied chest pain or pressure. Denies palpitations. He did report shortness of breath and IVP x 1 dose was ordered by internal medicine. Patient received his morning metoprolol with improvement of his heart rate into the 130-140s. Repeat EKG performed and reviewed with Dr. Gonzalez revealing sinus tachycardia versus multifocal atrial tachycardia. PHYSICAL EXAM: VITAL SIGNS: Reviewed. GENERAL: Well-developed in no acute distress. HEENT: Head is normocephalic. Pupils are equal, round. Sclerae anicteric. Mucous membranes of the mouth are moist. Neck supple. No JVD or thyromegaly LUNGS: Respirations even and unlabored. Lungs diminished with rhonchi noted bilaterally. HEART: Tachycardic. Regular rate and rhythm. S1 and S2 heard. ABDOMEN: Soft. Nondistended. Nontender. EXTREMITIES: Normal range of motion. No clubbing or cyanosis. Peripheral pulses intact. No lower extremity edema NEUROLOGIC: Awake and alert. Oriented x 3. ASSESSMENT: Status post fall likely secondary to orthostatic hypotension Hyperkalemia Paroxysmal atrial fibrillation on anticoagulation with Coumadin Obstructive sleep apnea History of CVA Peripheral arterial disease Hypertension Hyperlipidemia Diabetes mellitus PLAN: Continue to hold antihypertensive medications Continue metoprolol secondary to history of atrial fibrillation Continue Midodrine per nephrology Begin amiodarone bolus and IV infusion per protocol Patient to be transferred to Further recommendations pending patient course Nurse practitioner note has been reviewed by physician. Signing provider agrees with the documented findings, assessment, and plan of care. Objective - Vital Signs Vital signs: Vital Signs Temp 97.8 F 06/20/21 12:22 Pulse 124 H 06/20/21 12:22 Resp 25 H 06/20/21 10:26 BP 78/52 06/20/21 12:22 Pulse Ox 94 L 06/20/21 10:45 Intake & Output 06/19/21 06/20/21 06/20/21 18:59 06:59 18:59 Intake Total 480 Output Total 200 900 Balance 480 -200 -900 Intake: Oral 480 Output: Urine 200 900 Coude 900 Other: Voiding Method Urinal Indwelling Catheter # Voids 2 - Labs CBC & Chem 7: 06/20/21 06:34 06/20/21 06:34 Labs: Abnormal Lab Results - Last 24 Hours (Table) 06/19/21 06/19/21 06/20/21 Range/Units 06:46 06:46 06:34 WBC (3.8-10.6) k/uL RBC (4.30-5.90) m/uL Hgb (13.0-17.5) gm/dL Hct (39.0-53.0) % MCV (80.0-100.0) fL MCH (25.0-35.0) pg Lymphocytes # (1.0-4.8) k/uL Macrocytosis PT 28.8 H (9.0-12.0) sec INR 3.0 H (<1.2) Sodium 129 L (135-145) mmol/L Carbon Dioxide (22-30) mmol/L Anion Gap 1.80 L (4.00-12.00) mmol/L BUN (9-20) mg/dL Creatinine 1.6 H (0.6-1.5) mg/dL Est GFR (CKD-EPI)AfAm 53.1 L (60.0-200.0) Est GFR (CKD-EPI)NonAf 45.8 L (60.0-200.0) Glucose 68 L (70-110) mg/dL POC Glucose (mg/dL) (75-99) mg/dL Calcium 7.8 L (8.7-10.3) mg/dL Iron 38 L (65-175) ug/dL TIBC 190 L (228-460) ug/dL Total Protein 5.2 L (6.2-8.2) g/dL Albumin 3.00 L (3.80-4.90) g/dL Albumin/Globulin Ratio 1.36 L (1.60-3.17) g/dL 06/20/21 06/20/21 06/20/21 Range/Units 06:34 06:34 07:43 WBC 3.1 L (3.8-10.6) k/uL RBC 2.81 L (4.30-5.90) m/uL Hgb 10.7 L (13.0-17.5) gm/dL Hct 31.3 L (39.0-53.0) % MCV 111.4 H (80.0-100.0) fL MCH 38.3 H (25.0-35.0) pg Lymphocytes # 0.4 L (1.0-4.8) k/uL Macrocytosis Marked A PT (9.0-12.0) sec INR (<1.2) Sodium 129 L (135-145) mmol/L Carbon Dioxide 20 L (22-30) mmol/L Anion Gap (4.00-12.00) mmol/L BUN 24 H (9-20) mg/dL Creatinine 1.59 H (0.6-1.5) mg/dL Est GFR (CKD-EPI)AfAm (60.0-200.0) Est GFR (CKD-EPI)NonAf (60.0-200.0) Glucose 100 H (70-110) mg/dL POC Glucose (mg/dL) 106 H (75-99) mg/dL Calcium 8.3 L (8.7-10.3) mg/dL Iron (65-175) ug/dL TIBC (228-460) ug/dL Total Protein 5.3 L (6.2-8.2) g/dL Albumin 2.6 L (3.80-4.90) g/dL Albumin/Globulin Ratio (1.60-3.17) g/dL Microbiology - Last 24 Hours (Table) 06/15/21 01:22 Blood Culture - Preliminary Blood No Growth after 120 hours
[2021-06-20] MEDS ORDERED: AMIODARONE 450 MG in DEXTROSE 5% IN WATER 250 ML IV SCH ×2 (15:00)
[2021-06-20 16:42] LABS: Glucose,Whole Blood 140 mg/dL (75-99)
--- NOTE | 2021-06-20 17:48 | P.PN ---
Subjective Progress Note Date: 06/20/21 Everett Juárez, is a 61-year-old male patient of Dr. Jama, who presented to [facility] emergency room after sustaining a fall, and complaining of generalized weakness and dizziness, patient is not clear whether he passed out or had any loss of consciousness. Patient was also complaining of chest pain in the EMS, EKG was within normal limits and troponin level was less than 0.01 He was evaluated in the emergency room vital examination on presentation revealed a temperature of 97.4 pulse 71 respirations 16 blood pressure 87/50 pulse ox 94% on room air Laboratory data revealed a white blood count of 8.6 hemoglobin 12.0 platelet count 338 INR 1.2 sodium 128 potassium 6.2 chloride 99 CO2 22 BUN 17 creatinine 2.01 lactic acid on presentation 2.1 urine analysis did not reveal evidence of significant infection. Testing in the emergency room revealed EKG revealed normal sinus rhythm normal EKG chest x-ray done in the emergency room revealed no acute lung disease there was prominent pulmonary leon that could be related to adenopathy. 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 Patient was admitted to medical floor for further evaluation and treatment. Past medical history is significant for history of hypertension, history of hyperlipidemia, history of chronic kidney disease, history of [id number] diabetes mellitus, history of previous stroke, history of paroxysmal atrial fibrillation maintained on Coumadin, history of COPD, patient still smoke a few cigarettes per day, he denies alcohol use. On review of systems Patient is alert and responsive in no distress, he denies any complaints there is no fever or chills no headache or dizziness no chest pain no shortness of breath no palpitation no cough no nausea or vomiting no abdominal pain no diarrhea no blood in the stools no burning with urination no frequency or urgency and no hematuria, there is no weakness or numbness in any of the extremities no change in vision speech, gait was not tested. On 06/16/2021 patient was seen and examined on the telemetry floor he is alert and oriented 3 in no apparent distress he is still complaining of dizziness and weakness otherwise he denies any complaints there is no fever or chills no headache no chest pain no shortness of breath no cough no palpitation no nausea or vomiting no abdominal pain no diarrhea no blood in the stools no burning with urination no frequency or urgency and no hematuria there is no weakness or numbness in any of the extremities no change in vision or in speech On 06/17/2021 Patient was seen and examined on the medical floor, he is alert and oriented x 3 in no distress, he denies any complaints there is no fever or chills no headache or dizziness no chest pain no shortness of breath no palpitation no cough no nausea or vomiting no abdominal pain no diarrhea no blood in the stools no burning with urination no frequency or urgency and no hematuria, there is no weakness or numbness in any of the extremities no change in vision or speech, gait was not tested at this time, patient had significant orthostatic hypotension, this was discussed with cardiology, and dose of Catapres was adjusted down to 0.1 mg by mouth twice a day, patient will be reevaluated by cardiology in a.m. On 06/18/2021 patient was seen and examined on the medical floor, he is alert and oriented 3 in no distress, he is complaining of weakness otherwise he denies any specific complaints, there is no fever or chills no headache or dizziness no chest pain no shortness of breath no cough no nausea or vomiting no abdominal pain no diarrhea no blood in the stools no burning with urination no frequency or urgency no hematuria, there is no weakness or numbness in any of the extremities there is no change in vision speech or gait. Repeat orthostatic hypotension reveals significant drop while standing, cardiology are following, yesterday dose of Catapres was decreased to 0.1 by mouth twice daily, awaiting further recommendation from cardiology On 06/19/2021 patient was seen and examined on the medical floor, he is alert and oriented 3 in no distress, he is complaining of weakness otherwise he denies any specific complaints, he is still having significant orthostatic hypotension was significant drop in blood pressure when patient stands up. the re is no fever or chills no headache or dizziness no chest pain no shortness of breath no cough no nausea or vomiting no abdominal pain no diarrhea no blood in the stools no burning with urination no frequency or urgency no hematuria, there is no weakness or numbness in any of the extremities there is no change in vision speech or gait. Cardiology are following at this time Catapres is being discontinued and midodrine was added to medication regimen will continue to monitor closely. On 06/20/2021 patient was seen and examined on the medical floor he is alert and oriented 3 in no apparent distress, this morning he had an episode of palpitation and severe shortness of breath, EKG revealed SVT versus A. fib with RVR with a heart rate of 186 patient was transferred to [facility]. he was seen by [facility] rdiology and was started on IV amiodarone, chest x-ray was done today and was suspicious for right sided infiltrate suggestive of pneumonia patient is stating that he is having some cough with yellow sputum production WBC is low, patient was started on IV antibiotic Zosyn, and pulmonary consultation was requested. Patient denies any fever or chills no headache or dizziness no chest pain no nausea or vomiting no abdominal pain no diarrhea and no urinary symptoms Objective - Vital Signs Vital signs: Vital Signs Temp 97.8 F 06/20/21 12:22 Pulse 124 H 06/20/21 12:22 Resp 25 H 06/20/21 10:26 BP 78/52 06/20/21 12:22 Pulse Ox 94 L 06/20/21 10:45 Intake & Output 06/19/21 06/20/21 06/20/21 18:59 06:59 18:59 Intake Total 480 Output Total 200 900 Balance 480 -200 -900 Intake: Oral 480 Output: Urine 200 900 Coude 900 Other: Voiding Method Urinal Indwelling Catheter # Voids 2 - Exam In general patient is alert and responsive in no distress HEENT head normocephalic and atraumatic Neck is supple no JVD no goiter no lymphadenopathy no carotid bruit Chest examination is clear to auscultation no crackles no wheezing Cardiac exam reveals regular heart sounds S1 and S2 no gallops no murmurs Abdomen is soft nontender no organomegaly with normal bowel sounds Extremity exam reveals no edema no cyanosis or clubbing Neurological examination reveals no gross focal deficits - Labs CBC & Chem 7: 06/20/21 06:34 06/20/21 06:34 Labs: Abnormal Lab Results - Last 24 Hours (Table) 06/19/21 06/20/21 06/20/21 Range/Units 06:46 06:34 06:34 WBC (3.8-10.6) k/uL RBC (4.30-5.90) m/uL Hgb (13.0-17.5) gm/dL Hct (39.0-53.0) % MCV (80.0-100.0) fL MCH (25.0-35.0) pg Lymphocytes # (1.0-4.8) k/uL Macrocytosis PT 28.8 H (9.0-12.0) sec INR 3.0 H (<1.2) Sodium 129 L (137-145) mmol/L Carbon Dioxide 20 L (22-30) mmol/L BUN 24 H (9-20) mg/dL Creatinine 1.59 H (0.66-1.25) mg/dL Glucose 100 H (74-99) mg/dL POC Glucose (mg/dL) (75-99) mg/dL Calcium 8.3 L (8.4-10.2) mg/dL Iron 38 L (65-175) ug/dL TIBC 190 L (228-460) ug/dL Total Protein 5.3 L (6.3-8.2) g/dL Albumin 2.6 L (3.5-5.0) g/dL 06/20/21 06/20/21 Range/Units 06:34 07:43 WBC 3.1 L (3.8-10.6) k/uL RBC 2.81 L (4.30-5.90) m/uL Hgb 10.7 L (13.0-17.5) gm/dL Hct 31.3 L (39.0-53.0) % MCV 111.4 H (80.0-100.0) fL MCH 38.3 H (25.0-35.0) pg Lymphocytes # 0.4 L (1.0-4.8) k/uL Macrocytosis Marked A PT (9.0-12.0) sec INR (<1.2) Sodium (137-145) mmol/L Carbon Dioxide (22-30) mmol/L BUN (9-20) mg/dL Creatinine (0.66-1.25) mg/dL Glucose (74-99) mg/dL POC Glucose (mg/dL) 106 H (75-99) mg/dL Calcium (8.4-10.2) mg/dL Iron (65-175) ug/dL TIBC (228-460) ug/dL Total Protein (6.3-8.2) g/dL Albumin (3.5-5.0) g/dL Microbiology - Last 24 Hours (Table) 06/15/21 01:22 Blood Culture - Preliminary Blood No Growth after 120 hours Assessment and Plan Plan: Fall at home with unclear history whether patient had a syncopal episode or loss of consciousness Episode of chest pain while in the ambulance Underlying history of paroxysmal atrial fibrillation, maintained on Coumadin however her INR was subtherapeutic at 1.2 on presentation Evidence of dehydration with electrolyte imbalance with hyponatremia and hyperkalemia Underlying history of chronic kidney disease Underlying history of [id number] diabetes mellitus, no evidence of hypoglycemia Underlying history of hypertension Previous history of cerebellar stroke At this time patient is admitted to telemetry floor Will check echocardiogram and carotid Doppler Corrected electrolytes was normal saline and Kayexalate Recheck labs in a.m. Consult cardiology regarding episode of chest pain, dizziness with fall, questionable loss of consciousness Also for review of Coumadin, patient is subtherapeutic, and assess if he qualifies for a different anticoagulation agent Consult neurology regarding dizziness fall and history of cerebellar stroke Consult nephrology in regard to chronic kidney disease and electrolyte imbalance Will recheck labs and follow closely
[2021-06-20] MEDS ORDERED: WARFARIN 2.5 MG TAB PO ONE (18:00)
[2021-06-20] MEDS: PIPERACILLIN-TAZOBACTAM 3.375 GM in SODIUM CHLORIDE 0.9% 100 ML IVPB SCH (19:25)
[2021-06-20 19:40] LABS: Glucose,Whole Blood 109 mg/dL (75-99)
[2021-06-20] MEDS: ATORVASTATIN 80 MG TAB PO SCH (22:02)
[2021-06-20] MEDS: AMIODARONE 450 MG in DEXTROSE 5% IN WATER 250 ML IV SCH ×2 (22:15)
[2021-06-21] MEDS: PIPERACILLIN-TAZOBACTAM 3.375 GM in SODIUM CHLORIDE 0.9% 100 ML IVPB SCH ×4 (02:10→23:23)
[2021-06-21 05:58] LABS: Glucose,Whole Blood 136 mg/dL (75-99)
[2021-06-21] MEDS: MIDODRINE 5 MG TAB PO SCH ×2 (06:12→17:41)
[2021-06-21] MEDS: IPRATROPIUM-ALBUTEROL 3 ML NEB INHALATION SCH ×4 (07:38→19:34)
[2021-06-21] MEDS: SYMBICORT 160-4.5 MCG INHALER INHALATION SCH ×2 (07:38→19:34)
[2021-06-21 07:55] LABS: INR 2.7 (<1.2)
[2021-06-21 08:02] LABS: Calcium 8.3 mg/dL (8.4-10.2); Magnesium 1.7 mg/dL (1.6-2.3); Potassium 3.9 mmol/L (3.5-5.1)
--- NOTE | 2021-06-21 08:26 | P.PN ---
Subjective Progress Note Date: 06/21/21 Everett Juárez, is a 61-year-old male patient of Dr. Jama, who presented to [facility] emergency room after sustaining a fall, and complaining of generalized weakness and dizziness, patient is not clear whether he passed out or had any loss of consciousness. Patient was also complaining of chest pain in the EMS, EKG was within normal limits and troponin level was less than 0.01 He was evaluated in the emergency room vital examination on presentation revealed a temperature of 97.4 pulse 71 respirations 16 blood pressure 87/50 pulse ox 94% on room air Laboratory data revealed a white blood count of 8.6 hemoglobin 12.0 platelet count 338 INR 1.2 sodium 128 potassium 6.2 chloride 99 CO2 22 BUN 17 creatinine 2.01 lactic acid on presentation 2.1 urine analysis did not reveal evidence of significant infection. Testing in the emergency room revealed EKG revealed normal sinus rhythm normal EKG chest x-ray done in the emergency room revealed no acute lung disease there was prominent pulmonary leon that could be related to adenopathy. 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 Patient was admitted to medical floor for further evaluation and treatment. Past medical history is significant for history of hypertension, history of hyperlipidemia, history of chronic kidney disease, history of [id number] diabetes mellitus, history of previous stroke, history of paroxysmal atrial fibrillation maintained on Coumadin, history of COPD, patient still smoke a few cigarettes per day, he denies alcohol use. On review of systems Patient is alert and responsive in no distress, he denies any complaints there is no fever or chills no headache or dizziness no chest pain no shortness of breath no palpitation no cough no nausea or vomiting no abdominal pain no diarrhea no blood in the stools no burning with urination no frequency or urgency and no hematuria, there is no weakness or numbness in any of the extremities no change in vision speech, gait was not tested. On 06/16/2021 patient was seen and examined on the telemetry floor he is alert and oriented 3 in no apparent distress he is still complaining of dizziness and weakness otherwise he denies any complaints there is no fever or chills no headache no chest pain no shortness of breath no cough no palpitation no nausea or vomiting no abdominal pain no diarrhea no blood in the stools no burning with urination no frequency or urgency and no hematuria there is no weakness or numbness in any of the extremities no change in vision or in speech On 06/17/2021 Patient was seen and examined on the medical floor, he is alert and oriented x 3 in no distress, he denies any complaints there is no fever or chills no headache or dizziness no chest pain no shortness of breath no palpitation no cough no nausea or vomiting no abdominal pain no diarrhea no blood in the stools no burning with urination no frequency or urgency and no hematuria, there is no weakness or numbness in any of the extremities no change in vision or speech, gait was not tested at this time, patient had significant orthostatic hypotension, this was discussed with cardiology, and dose of Catapres was adjusted down to 0.1 mg by mouth twice a day, patient will be reevaluated by cardiology in a.m. On 06/18/2021 patient was seen and examined on the medical floor, he is alert and oriented 3 in no distress, he is complaining of weakness otherwise he denies any specific complaints, there is no fever or chills no headache or dizziness no chest pain no shortness of breath no cough no nausea or vomiting no abdominal pain no diarrhea no blood in the stools no burning with urination no frequency or urgency no hematuria, there is no weakness or numbness in any of the extremities there is no change in vision speech or gait. Repeat orthostatic hypotension reveals significant drop while standing, cardiology are following, yesterday dose of Catapres was decreased to 0.1 by mouth twice daily, awaiting further recommendation from cardiology On 06/19/2021 patient was seen and examined on the medical floor, he is alert and oriented 3 in no distress, he is complaining of weakness otherwise he denies any specific complaints, he is still having significant orthostatic hypotension was significant drop in blood pressure when patient stands up. the re is no fever or chills no headache or dizziness no chest pain no shortness of breath no cough no nausea or vomiting no abdominal pain no diarrhea no blood in the stools no burning with urination no frequency or urgency no hematuria, there is no weakness or numbness in any of the extremities there is no change in vision speech or gait. Cardiology are following at this time Catapres is being discontinued and midodrine was added to medication regimen will continue to monitor closely. On 06/20/2021 patient was seen and examined on the medical floor he is alert and oriented 3 in no apparent distress, this morning he had an episode of palpitation and severe shortness of breath, EKG revealed SVT versus A. fib with RVR with a heart rate of 186 patient was transferred to [facility]. he was seen by [facility] rdiology and was started on IV amiodarone, chest x-ray was done today and was suspicious for right sided infiltrate suggestive of pneumonia patient is stating that he is having some cough with yellow sputum production WBC is low, patient was started on IV antibiotic Zosyn, and pulmonary consultation was requested. Patient denies any fever or chills no headache or dizziness no chest pain no nausea or vomiting no abdominal pain no diarrhea and no urinary symptoms. On 06/21/2021 patient was seen and examined on the medical floor he is complaining of cough otherwise he denies any complaints at this time there is no fever or chills no headache or dizziness no chest pain no shortness of breath no nausea or vomiting no abdominal pain no diarrhea no blood in the stools no burning with urination no frequency or urgency and no hematuria, yesterday patient had an episode of A. fib with RVR, he was started on IV amiodarone by cardiology and was transferred to telemetry floor, also chest x-ray revealed evidence of right basilar infiltrate, he was started on IV Zosyn pulmonary consultation was requested, sputum culture was ordered Objective - Vital Signs Vital signs: Vital Signs Temp 98.2 F 06/21/21 04:26 Pulse 99 06/21/21 07:52 Resp 18 06/21/21 04:26 BP 117/72 06/21/21 04:26 Pulse Ox 92 L 06/21/21 07:38 Intake & Output 06/20/21 06/21/21 06/21/21 18:59 06:59 18:59 Intake Total 0 300 Output Total 900 250 Balance -900 50 Weight 106.594 kg 68.5 kg Intake: Oral 0 300 Output: Urine 900 250 Coude 900 Other: Voiding Method Indwelling Catheter Indwelling Catheter # Voids 0 - Exam In general patient is alert and responsive in no distress HEENT head normocephalic and atraumatic Neck is supple no JVD no goiter no lymphadenopathy no carotid bruit Chest examination is clear to auscultation no crackles no wheezing Cardiac exam reveals regular heart sounds S1 and S2 no gallops no murmurs Abdomen is soft nontender no organomegaly with normal bowel sounds Extremity exam reveals no edema no cyanosis or clubbing Neurological examination reveals no gross focal deficits - Labs CBC & Chem 7: 06/20/21 06:34 06/21/21 07:18 Labs: Abnormal Lab Results - Last 24 Hours (Table) 06/20/21 06/20/21 06/21/21 Range/Units 16:41 19:38 05:55 PT (9.0-12.0) sec INR (<1.2) POC Glucose (mg/dL) 140 H 109 H 136 H (75-99) mg/dL 06/21/21 Range/Units 07:18 PT 26.0 H (9.0-12.0) sec INR 2.7 H (<1.2) POC Glucose (mg/dL) (75-99) mg/dL Microbiology - Last 24 Hours (Table) 06/15/21 01:22 Blood Culture - Final Blood No Growth after 144 hours 06/20/21 22:11 Sputum Culture - Preliminary Sputum Assessment and Plan Plan: Fall at home with unclear history whether patient had a syncopal episode or loss of consciousness Episode of chest pain while in the ambulance Underlying history of paroxysmal atrial fibrillation, maintained on Coumadin however her INR was subtherapeutic at 1.2 on presentation, today INR is th erapeutic at 2.7 Evidence of dehydration with electrolyte imbalance with hyponatremia and hyperkalemia Underlying history of chronic kidney disease Underlying history of oip-lcogxbw-orurzaqha diabetes mellitus, no evidence of hypoglycemia Underlying history of hypertension Previous history of cerebellar stroke. Right basilar infiltrate suggestive of pneumonia, patient started on IV Zosyn, pulmonary consultation requested At this time patient is admitted to telemetry floor Will check echocardiogram and carotid Doppler Corrected electrolytes was normal saline and Kayexalate Recheck labs in a.m. Consult cardiology regarding episode of chest pain, dizziness with fall, questionable loss of consciousness Also for review of Coumadin, patient is subtherapeutic, and assess if he qualifies for a different anticoagulation agent Consult neurology regarding dizziness fall and history of cerebellar stroke Consult nephrology in regard to chronic kidney disease and electrolyte imbalance Will recheck labs and follow closely
[2021-06-21] MEDS: cilostazoL 100 MG TAB PO SCH ×2 (09:33→10:05)
[2021-06-21] MEDS: CYANOCOBALAMIN 500 MCG TAB PO SCH (09:33)
[2021-06-21] MEDS: FAMOTIDINE 20 MG TAB PO SCH (09:34)
[2021-06-21] MEDS: METOPROLOL TARTRATE 25 MG TAB PO SCH ×3 (09:35→21:10)
[2021-06-21] MEDS: TAMSULOSIN 0.4 MG CAP.ER.24H PO SCH (09:35)
[2021-06-21] MEDS: VENLAFAXINE HCL 75 MG TAB PO SCH ×2 (09:35→21:10)
[2021-06-21] MEDS: FOLIC ACID 1 MG TAB PO SCH (09:35)
[2021-06-21] MEDS: PIOGLITAZONE 30 MG TAB PO SCH (09:35)
[2021-06-21 11:54] LABS: Glucose,Whole Blood 158 mg/dL (75-99)
--- NOTE | 2021-06-21 12:21 | P.PN ---
Subjective This is a pleasant 61 male past medical history significant for hypertension, dyslipidemia, diabetes mellitus, paroxysmal atrial fibrillation and peripheral arterial disease. He follows my office with Dr. Gonzalez. He is seen and examined resting comfortably lying flat in bed in no acute distress. He has converted to sinus rhythm. He continues to be on amiodarone infusion at this time. Blood pressure supine 126/78 and standing 78/49 heart rate 94 afebrile maintaining oxygen saturation on room air. He denies symptoms of shortness of breath, d izziness or palpitations. He continues to feel weak and he is somewhat confused. Laboratory data reviewed, INR 2.7, sodium 126, potassium 3.9, creatinine 1.57 and magnesium 1.7. GENERAL: Well-appearing, well-nourished and in no acute distress. NECK: Supple without JVD or thyromegaly. LUNGS: Breath sounds clear to auscultation bilaterally. Respiration equal and unlabored. No wheezes, rales or rhonchi. HEART: Regular rate and rhythm without murmurs, rubs or gallops. S1 and S2 heard. EXTREMITIES: Normal range of motion, no edema. No clubbing or cyanosis. Peripheral pulses intact. ASSESSMENT Paroxysmal atrial fibrillation with rapid ventricular rate Orthostatic hypotension Fall secondary to orthostatic hypotension History of CVA Hypertension Dyslipidemia Diabetes mellitus Peripheral vascular disease PLAN Transition to oral amiodarone 400 mg BID for 7 days; then 200 mg BID for 7 days; then 200 mg daily thereafter. Continue warfarin for thromboembolic protection. Discontinue pletal. Advised him to rise slowly from a seated position. Discharge planning ongoing for transfer to [facility] when medically stable. Follow up with Dr. Gonzalez upon discharge. Nurse Practitioner note has been reviewed, I agree with a documented findings and plan of care. Patient was seen and examined. Objective - Vital Signs Vital signs: Vital Signs Temp 98.5 F 06/21/21 11:52 Pulse 110 H 06/21/21 11:52 Resp 18 06/21/21 11:52 BP 154/89 06/21/21 11:52 Pulse Ox 90 L 06/21/21 11:52 Intake & Output 06/20/21 06/21/21 06/21/21 18:59 06:59 18:59 Intake Total 0 300 118 Output Total 900 250 Balance -900 50 118 Weight 106.594 kg 68.5 kg Intake: Oral 0 300 118 Output: Urine 900 250 Coude 900 Other: Voiding Method Indwelling Catheter Indwelling Catheter Indwelling Catheter # Voids 0 - Labs CBC & Chem 7: 06/20/21 06:34 06/21/21 07:18 Labs: Abnormal Lab Results - Last 24 Hours (Table) 06/20/21 06/20/21 06/21/21 Range/Units 16:41 19:38 05:55 PT (9.0-12.0) sec INR (<1.2) Sodium (137-145) mmol/L Chloride (98-107) mmol/L BUN (9-20) mg/dL Creatinine (0.66-1.25) mg/dL Glucose (74-99) mg/dL POC Glucose (mg/dL) 140 H 109 H 136 H (75-99) mg/dL Calcium (8.4-10.2) mg/dL 06/21/21 06/21/21 06/21/21 Range/Units 07:18 07:18 11:42 PT 26.0 H (9.0-12.0) sec INR 2.7 H (<1.2) Sodium 126 L (137-145) mmol/L Chloride 95 L (98-107) mmol/L BUN 27 H (9-20) mg/dL Creatinine 1.57 H (0.66-1.25) mg/dL Glucose 142 H (74-99) mg/dL POC Glucose (mg/dL) 158 H (75-99) mg/dL Calcium 8.3 L (8.4-10.2) mg/dL Microbiology - Last 24 Hours (Table) 06/20/21 22:11 Gram Stain - Preliminary Sputum Sputum Culture - Preliminary 06/15/21 01:22 Blood Culture - Final Blood No Growth after 144 hours
[2021-06-21] MEDS: AMIODARONE 450 MG in DEXTROSE 5% IN WATER 250 ML IV SCH ×2 (13:09)
[2021-06-21] MEDS ORDERED: SODIUM FERRIC GLUCONAT-SUCROSE 125 MG in SODIUM CHLORIDE 0.9% 100 ML IVPB ONE (13:17)
--- NOTE | 2021-06-21 13:19 | P.PN ---
Subjective Patient is seen in follow-up for acute kidney injury on chronic kidney disease. Renal function improved from admission - creatinine stable at 1.57 today. Potassium level normal. No chest pain or shortness of breath. No vomiting or diarrhea. Patient is on amiodarone drip and will be changed to oral amiodarone later today. Sodium level low at 126. Vital signs are stable. General: The patient appeared well nourished and normally developed. HEENT: Head exam is unremarkable. LUNGS: Breath sounds decreased. HEART: Irregular rate and rhythm. ABDOMEN: No distention. EXTREMITITES: No edema. Objective - Vital Signs Vital signs: Vital Signs Temp 98.5 F 06/21/21 11:52 Pulse 110 H 06/21/21 11:52 Resp 18 06/21/21 11:52 BP 154/89 06/21/21 11:52 Pulse Ox 90 L 06/21/21 11:52 Intake & Output 06/20/21 06/21/21 06/21/21 18:59 06:59 18:59 Intake Total 0 300 366.338 Output Total 900 250 Balance -900 50 366.338 Weight 106.594 kg 68.5 kg Intake: Intake, IV Titration 248.338 Amount Amiodarone 450 mg In 248.338 Dextrose 5% in Water 250 ml @ 0.5 MG/MIN 16.667 mls/hr IV .Q15H [facility] Rx#: [id number] Oral 0 300 118 Output: Urine 900 250 Coude 900 Other: Voiding Method Indwelling Catheter Indwelling Catheter Indwelling Catheter # Voids 0 - Labs CBC & Chem 7: 06/20/21 06:34 06/21/21 07:18 Labs: Abnormal Lab Results - Last 24 Hours (Table) 06/20/21 06/20/21 06/21/21 Range/Units 16:41 19:38 05:55 PT (9.0-12.0) sec INR (<1.2) Sodium (137-145) mmol/L Chloride (98-107) mmol/L BUN (9-20) mg/dL Creatinine (0.66-1.25) mg/dL Glucose (74-99) mg/dL POC Glucose (mg/dL) 140 H 109 H 136 H (75-99) mg/dL Calcium (8.4-10.2) mg/dL 0906/21/21 06/21/21 Range/Units 07:18 07:18 11:42 PT 26.0 H (9.0-12.0) sec INR 2.7 H (<1.2) Sodium 126 L (137-145) mmol/L Chloride 95 L (98-107) mmol/L BUN 27 H (9-20) mg/dL Creatinine 1.57 H (0.66-1.25) mg/dL Glucose 142 H (74-99) mg/dL POC Glucose (mg/dL) 158 H (75-99) mg/dL Calcium 8.3 L (8.4-10.2) mg/dL Microbiology - Last 24 Hours (Table) 06/20/21 22:11 Gram Stain - Preliminary Sputum Sputum Culture - Preliminary 06/15/21 01:22 Blood Culture - Final Blood No Growth after 144 hours Assessment and Plan Plan: Assessment: 1. Acute kidney injury mostly prerenal improving with IV hydration. Creatinine was 2.2 on admission and is stable at 1.57 today. No hydronephrosis noted on kidney ultrasound. UA fairly benign. 2. Chronic kidney disease 3a with baseline creatinine near 1.6-2 secondary to solitary right kidney and obstructive uropathy. 3. Status post left nephrectomy. 4. Status post removal of left nephrostomy tube on 06/11/2021. 5. Hyperkalemia secondary to acute kidney injury and enalapril. Resolved. 6. Diabetes mellitus. 7. Hyponatremia from acute kidney injury and poor solute intake. 8. Hypomagnesemia from poor intake. Replaced. Stable. 9. Orthostatic hypotension. Cardiology following. On midodrine. 10. Urinary retention. Lara catheter to be placed. 11. A. fib with RVR on amiodarone drip. On anticoagulation. Cardiology following. 12. Anemia of chronic kidney disease. Iron deficiency noted. 13. Chronic chronic diastolic CHF with severe pulmonary hypertension. Plan: Encouraged oral intake. Maintain fluid restriction. Avoid nephrotoxins. ANTONIO inhibitor and clonidine stopped. Cortisol level not low. Increase dose of midodrine. Continue to monitor orthostatic vitals. Repeat chest x-ray. Check urine sodium and urine osmolality. IV iron today. Patient received a dose of IV Lasix yesterday. Hold off on diuretics today.
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
[2021-06-21] MEDS: AMIODARONE 200 MG TAB PO SCH ×2 (15:57→21:09)
[2021-06-21 16:50] LABS: Glucose,Whole Blood 132 mg/dL (75-99)
[2021-06-21] MEDS ORDERED: WARFARIN 2 MG TAB PO ONE (18:00)
[2021-06-21 20:13] LABS: Glucose,Whole Blood 121 mg/dL (75-99)
[2021-06-21] MEDS: ATORVASTATIN 80 MG TAB PO SCH (21:09)
[2021-06-21] MEDS ORDERED: METOPROLOL TARTRATE 5 MG/5 ML VIAL IVP ONE (21:43)
[2021-06-22] MEDS ORDERED: DEXTROSE 5% IN WATER 100 ML with AMIODARONE 150 MG IV ONE ×2 (05:43→05:45)
[2021-06-22] MEDS ORDERED: AMIODARONE 360 MG in DEXTROSE 5% IN WATER 200 ML IV ONE ×2 (06:00)
[2021-06-22] MEDS: DEXTROSE 5% IN WATER 100 ML with AMIODARONE 150 MG IV ONE (06:06)
[2021-06-22 06:11] LABS: Glucose,Whole Blood 107 mg/dL (75-99)
[2021-06-22] MEDS: MIDODRINE 5 MG TAB PO SCH ×3 (06:14→16:26)
[2021-06-22 06:45] LABS: Basophils % (A) 0 %; Eosinophils # (A) 0.1 k/uL (0-0.7); Eosinophils % (A) 1 %; HCT 29.7 % (39.0-53.0); HGB 10.4 gm/dL (13.0-17.5); Lymphocytes # (A) 0.7 k/uL (1.0-4.8); Lymphocytes % (A) 18 %; MCH 38.2 pg (25.0-35.0); MCV 109.1 fL (80.0-100.0); Macrocytosis Marked; Mean Platelet Volume 7.3; Monocytes # (A) 0.2 k/uL (0-1.0); Monocytes % (A) 6 %; Neutrophils # (A) 2.8 k/uL (1.3-7.7); Neutrophils % (A) 70 %; Platelet Count 289 k/uL (150-450); RBC 2.72 m/uL (4.30-5.90); RDW 15.9 % (11.5-15.5)
[2021-06-22 06:46] LABS: INR 3.7 (<1.2); Prothrombin Time 35.6 sec (9.0-12.0)
[2021-06-22] MEDS: IPRATROPIUM-ALBUTEROL 3 ML NEB INHALATION SCH ×4 (07:41→19:43)
[2021-06-22] MEDS: SYMBICORT 160-4.5 MCG INHALER INHALATION SCH ×2 (07:41→19:53)
--- NOTE | 2021-06-22 07:48 | XR ---
EXAMINATION TYPE: XR chest 1V DATE OF EXAM: 06/22/2021 CLINICAL HISTORY: Difficulty breathing progress study. TECHNIQUE: Single AP portable upright view of the chest is obtained. COMPARISON: Chest x-ray from 2 days earlier and older studies. FINDINGS: Background chronic parenchymal changes with increased interstitial markings and persistent right basilar opacity. Cardiac silhouette size stable and upper limits of normal with atheroscleroti c change aortic knob. Osseous structures remain demineralized. Elevated right hemidiaphragm redemonst rated. Slight right-sided volume loss and tracheal shift again seen. IMPRESSION: Correlate for CHF exacerbation or fluid overload state as there is suspected mild interst itial edema on background chronic parenchymal changes. Stable right-sided volume loss with persistent right basilar acute infiltrate and/or atelectasis. No significant change from most recent x-ray.
[2021-06-22 08:18] LABS: Albumin 2.5 g/dL (3.5-5.0); Calcium 8.5 mg/dL (8.4-10.2); Magnesium 1.7 mg/dL (1.6-2.3); Potassium 3.6 mmol/L (3.5-5.1); Total Bilirubin 1.1 mg/dL (0.2-1.3); Total Protein 5.3 g/dL (6.3-8.2)
[2021-06-22] MEDS ORDERED: FUROSEMIDE 10 MG/ML 4 ML VIAL IV STA (08:35)
[2021-06-22] MEDS ORDERED: POTASSIUM CHLORIDE 20 MEQ in WATER FOR INJECTION 1 100ML.BAG IVPB STA (08:36)
--- NOTE | 2021-06-22 08:37 | P.PN ---
Subjective Patient is seen in follow-up for acute kidney injury on chronic kidney disease. Renal function improved from admission - creatinine stable at 1.54 today. No chest pain or shortness of breath. No vomiting or diarrhea. Patient is again on amiodarone drip for A. fib. He is now nothing by mouth due to concern for aspiration. Vital signs are stable. General: The patient appeared well nourished and normally developed. HEENT: Head exam is unremarkable. LUNGS: Breath sounds decreased. HEART: Irregular rate and rhythm. ABDOMEN: No distention. EXTREMITITES: No edema. Objective - Vital Signs Vital signs: Vital Signs Temp 97.6 F 06/22/21 04:00 Pulse 120 H 06/22/21 07:55 Resp 18 06/22/21 04:00 BP 101/61 06/22/21 06:23 Pulse Ox 90 L 06/22/21 04:00 Intake & Output 06/21/21 06/22/21 06/22/21 18:59 06:59 18:59 Intake Total 586.338 Output Total 450 500 Balance 136.338 -500 Weight 68.5 kg 71.5 kg Intake: Intake, IV Titration 248.338 Amount Amiodarone 450 mg In 248.338 Dextrose 5% in Water 250 ml @ 0.5 MG/MIN 16.667 mls/hr IV .Q15H [facility] Rx#: [id number] Oral 338 Output: Urine 450 500 Other: Voiding Method Indwelling Catheter Indwelling Catheter - Labs CBC & Chem 7: 06/22/21 06:01 06/22/21 06:01 Labs: Abnormal Lab Results - Last 24 Hours (Table) 06/21/21 06/21/21 06/21/21 Range/Units 11:42 16:39 20:10 RBC (4.30-5.90) m/uL Hgb (13.0-17.5) gm/dL Hct (39.0-53.0) % MCV (80.0-100.0) fL MCH (25.0-35.0) pg RDW (11.5-15.5) % Lymphocytes # (1.0-4.8) k/uL Macrocytosis PT (9.0-12.0) sec INR (<1.2) Sodium (137-145) mmol/L Chloride (98-107) mmol/L Carbon Dioxide (22-30) mmol/L BUN (9-20) mg/dL Creatinine (0.66-1.25) mg/dL Glucose (74-99) mg/dL POC Glucose (mg/dL) 158 H 132 H 121 H (75-99) mg/dL Total Protein (6.3-8.2) g/dL Albumin (3.5-5.0) g/dL 06/22/21 06/22/21 06/22/21 Range/Units 06:01 06:01 06:01 RBC 2.72 L (4.30-5.90) m/uL Hgb 10.4 L (13.0-17.5) gm/dL Hct 29.7 L (39.0-53.0) % MCV 109.1 H (80.0-100.0) fL MCH 38.2 H (25.0-35.0) pg RDW 15.9 H (11.5-15.5) % Lymphocytes # 0.7 L (1.0-4.8) k/uL Macrocytosis Marked A PT 35.6 H (9.0-12.0) sec INR 3.7 H (<1.2) Sodium 128 L (137-145) mmol/L Chloride 96 L (98-107) mmol/L Carbon Dioxide 21 L (22-30) mmol/L BUN 25 H (9-20) mg/dL Creatinine 1.54 H (0.66-1.25) mg/dL Glucose 101 H (74-99) mg/dL POC Glucose (mg/dL) (75-99) mg/dL Total Protein 5.3 L (6.3-8.2) g/dL Albumin 2.5 L (3.5-5.0) g/dL 06/22/21 Range/Units 06:10 RBC (4.30-5.90) m/uL Hgb (13.0-17.5) gm/dL Hct (39.0-53.0) % MCV (80.0-100.0) fL MCH (25.0-35.0) pg RDW (11.5-15.5) % Lymphocytes # (1.0-4.8) k/uL Macrocytosis PT (9.0-12.0) sec INR (<1.2) Sodium (137-145) mmol/L Chloride (98-107) mmol/L Carbon Dioxide (22-30) mmol/L BUN (9-20) mg/dL Creatinine (0.66-1.25) mg/dL Glucose (74-99) mg/dL POC Glucose (mg/dL) 107 H (75-99) mg/dL Total Protein (6.3-8.2) g/dL Albumin (3.5-5.0) g/dL Microbiology - Last 24 Hours (Table) 06/21/21 17:49 Sputum Culture - Preliminary Sputum 06/20/21 22:11 Gram Stain - Preliminary Sputum Sputum Culture - Preliminary Assessment and Plan Plan: Assessment: 1. Acute kidney injury mostly prerenal improving with IV hydration. Creatinine was 2.2 on admission and is stable at 1.54 today. No hydronephrosis noted on kidney ultrasound. UA fairly benign. 2. Chronic kidney disease 3a with baseline creatinine near 1.6-2 secondary to solitary right kidney and obstructive uropathy. 3. Status post left nephrectomy. 4. Status post removal of left nephrostomy tube on 06/11/2021. 5. Hyperkalemia secondary to acute kidney injury and enalapril. Resolved. Now slightly hypokalemic. 6. Diabetes mellitus. 7. Hyponatremia from acute kidney injury and poor solute intake. Urine sodium 55 and urine osmolality 620. 8. Hypomagnesemia from poor intake. Replaced. Stable. 9. Orthostatic hypotension. Cardiology following. On midodrine. 10. Urinary retention. Lara catheter placed. 11. A. fib with RVR on amiodarone drip. On anticoagulation. Cardiology following. 12. Anemia of chronic kidney disease. Iron deficiency noted - status post IV iron. 13. Chronic chronic diastolic CHF with severe pulmonary hypertension. 14. Concern for aspiration. Speech therapy to see today. Plan: Encouraged oral intake. Maintain fluid restriction. Avoid nephrotoxins. ANTONIO inhibitor and clonidine stopped. Cortisol level not low. Maintain midodrine. Continue to monitor orthostatic vitals. Lasix 40 mg IV once today. Replace potassium.
[2021-06-22] MEDS: PIPERACILLIN-TAZOBACTAM 3.375 GM in SODIUM CHLORIDE 0.9% 100 ML IVPB SCH ×3 (09:34→23:23)
[2021-06-22] MEDS: CYANOCOBALAMIN 500 MCG TAB PO SCH (10:43)
[2021-06-22] MEDS: METOPROLOL TARTRATE 25 MG TAB PO SCH ×3 (10:44→20:39)
[2021-06-22] MEDS: PIOGLITAZONE 30 MG TAB PO SCH (10:44)
[2021-06-22] MEDS: FAMOTIDINE 20 MG TAB PO SCH (10:44)
[2021-06-22] MEDS: FOLIC ACID 1 MG TAB PO SCH (10:44)
[2021-06-22] MEDS: VENLAFAXINE HCL 75 MG TAB PO SCH ×2 (10:44→20:39)
[2021-06-22] MEDS: TAMSULOSIN 0.4 MG CAP.ER.24H PO SCH (10:56)
[2021-06-22 11:40] LABS: Glucose,Whole Blood 151 mg/dL (75-99)
[2021-06-22] MEDS: AMIODARONE 450 MG in DEXTROSE 5% IN WATER 250 ML IV SCH ×2 (12:11)
--- NOTE | 2021-06-22 12:18 | P.PN ---
Subjective This is a pleasant 61 male past medical history significant for hypertension, dyslipidemia, diabetes mellitus, paroxysmal atrial fibrillation, CVA 2012 and peripheral arterial disease. He follows my office with Dr. Gonzalez. He is seen and examined resting comfortably lying flat in bed in no acute distress. He has converted to sinus rhythm. He continues to be on amiodarone infusion at this time. Blood pressure supine 126/78 and standing 78/49 heart rate 94 afebrile maintaining oxygen saturation on room air. He denies symptoms of shortness of breath, dizziness or palpitations. He continues to feel weak and he is somewhat confused. Laboratory data reviewed, INR 2.7, sodium 126, potassium 3.9, creatinine 1.57 and magnesium 1.7. 06/22/2021 Pt seen and examined laying flat resting comfortably in bed in no acute distress. He continues to feel weak. He has no complaints of chest pain or shortness of breath. He is coughing and bringing up some sputum. Last night he went back into afib with RVR and amiodaroine infusion was resumed. Currently he is back in SR. He is maintained on antibiotics for suspected aspiration pneumonia. Blood pressure supine 116/71, sitting 95/55 and standing 81/55 heart rate 107. He did feel like he was going to pass out when he went from sitting to standing and per nursing staff he briefly became unresponsive. Telemetry tracings at that time were unremarkable for an arrhythmia. He was ST at the time at 110-115. GENERAL: Well-appearing, well-nourished and in no acute distress. NECK: Supple without JVD or thyromegaly. LUNGS: Breath sounds clear to auscultation bilaterally. Respiration equal and unlabored. No wheezes, rales or rhonchi. HEART: Regular rate and rhythm without murmurs, rubs or gallops. S1 and S2 heard. EXTREMITIES: Normal range of motion, no edema. No clubbing or cyanosis. Peripheral pulses intact. ASSESSMENT Paroxysmal atrial fibrillation with rapid ventricular rate Orthostatic hypotension Fall secondary to orthostatic hypotension Pneumonia, likely aspiration History of CVA Hypertension Dyslipidemia Diabetes mellitus Peripheral vascular disease PLAN Continue to check for orthostatic changes. Continue midodrine when he is able to swallow. Check d-dimer and subsequent VQ scan if abnormal. His INR was sub-therapeutic on admission. Apply bilateral DEION hose. Advised pt and nursing staff to sit on the edge of the bed for a few minutes prior to attempting to stand with assistance. Hold IV lasix. Discontinue flomax, this could potentially exacerbate orthostatic hypotension. Continue amiodarone infusion due to NPO status. Further recommendations to follow based on clinical course. Nurse Practitioner note has been reviewed, I agree with a documented findings and plan of care. Patient was seen and examined. Objective - Vital Signs Vital signs: Vital Signs Temp 97.6 F 06/22/21 04:00 Pulse 120 H 06/22/21 07:55 Resp 18 06/22/21 04:00 BP 101/61 06/22/21 06:23 Pulse Ox 90 L 06/22/21 04:00 Intake & Output 06/21/21 06/22/21 06/22/21 18:59 06:59 18:59 Intake Total 586.338 Output Total 450 500 Balance 136.338 -500 Weight 68.5 kg 71.5 kg Intake: Intake, IV Titration 248.338 Amount Amiodarone 450 mg In 248.338 Dextrose 5% in Water 250 ml @ 0.5 MG/MIN 16.667 mls/hr IV .Q15H [facility] Rx#: [id number] Oral 338 Output: Urine 450 500 Other: Voiding Method Indwelling Catheter Indwelling Catheter - Labs CBC & Chem 7: 06/22/21 06:01 06/22/21 06:01 Labs: Abnormal Lab Results - Last 24 Hours (Table) 06/21/21 06/21/21 06/21/21 Range/Units 11:42 16:39 20:10 RBC (4.30-5.90) m/uL Hgb (13.0-17.5) gm/dL Hct (39.0-53.0) % MCV (80.0-100.0) fL MCH (25.0-35.0) pg RDW (11.5-15.5) % Lymphocytes # (1.0-4.8) k/uL Macrocytosis PT (9.0-12.0) sec INR (<1.2) Sodium (137-145) mmol/L Chloride (98-107) mmol/L Carbon Dioxide (22-30) mmol/L BUN (9-20) mg/dL Creatinine (0.66-1.25) mg/dL Glucose (74-99) mg/dL POC Glucose (mg/dL) 158 H 132 H 121 H (75-99) mg/dL Total Protein (6.3-8.2) g/dL Albumin (3.5-5.0) g/dL 06/22/21 06/22/21 06/22/21 Range/Units 06:01 06:01 06:01 RBC 2.72 L (4.30-5.90) m/uL Hgb 10.4 L (13.0-17.5) gm/dL Hct 29.7 L (39.0-53.0) % MCV 109.1 H (80.0-100.0) fL MCH 38.2 H (25.0-35.0) pg RDW 15.9 H (11.5-15.5) % Lymphocytes # 0.7 L (1.0-4.8) k/uL Macrocytosis Marked A PT 35.6 H (9.0-12.0) sec INR 3.7 H (<1.2) Sodium 128 L (137-145) mmol/L Chloride 96 L (98-107) mmol/L Carbon Dioxide 21 L (22-30) mmol/L BUN 25 H (9-20) mg/dL Creatinine 1.54 H (0.66-1.25) mg/dL Glucose 101 H (74-99) mg/dL POC Glucose (mg/dL) (75-99) mg/dL Total Protein 5.3 L (6.3-8.2) g/dL Albumin 2.5 L (3.5-5.0) g/dL 06/22/21 Range/Units 06:10 RBC (4.30-5.90) m/uL Hgb (13.0-17.5) gm/dL Hct (39.0-53.0) % MCV (80.0-100.0) fL MCH (25.0-35.0) pg RDW (11.5-15.5) % Lymphocytes # (1.0-4.8) k/uL Macrocytosis PT (9.0-12.0) sec INR (<1.2) Sodium (137-145) mmol/L Chloride (98-107) mmol/L Carbon Dioxide (22-30) mmol/L BUN (9-20) mg/dL Creatinine (0.66-1.25) mg/dL Glucose (74-99) mg/dL POC Glucose (mg/dL) 107 H (75-99) mg/dL Total Protein (6.3-8.2) g/dL Albumin (3.5-5.0) g/dL Microbiology - Last 24 Hours (Table) 06/21/21 17:49 Sputum Culture - Preliminary Sputum 06/20/21 22:11 Gram Stain - Preliminary Sputum Sputum Culture - Preliminary
--- NOTE | 2021-06-22 13:30 | P.PN ---
Subjective Progress Note Date: 06/22/21 Principal diagnosis: Syncope and orthostatic hypotension This is a 61-year-old white male with history of multiple medical problems including previous cerebellar CVA, type 2 diabetes, dyslipidemia, hypertension, right vision loss 7 years ago related to his CVA. History of chronic unsteady gait, and difficulty ambulating. Patient also had previous history of hydronephrosis and nephrolithiasis. History of nephrostomy tube placement. Patient presented to the ER back on 06/15/2021, mostly complaining of generalized weakness, and he may have sustained a fall. It is not clear whether the patient passed out or had just near syncopal episode. When EMS arrived, patient was co mplaining of chest pain, EKG was normal and troponin was normal. Workup in the ER showed that the patient had low sodium, elevated potassium, slightly elevated lactic acid, and initial chest x-ray on admission showed no evidence of active disease, prominent hilar area, CT of the brain done in the emergency room showed old large right cerebellar hemisphere infarct. And cerebral atrophy. Patient is also known to have history of paroxysmal atrial fibrillation maintained on anticoagulation therapy. This admission, the patient has been seen by many consultants including cardiology, nephrology, neurology, follow-up chest x-ray done on 06/20/2021, is suggestive of right lower lobe pneumonia associated with atelectasis. There is also evident aeration of the right hemidiaphragm. Considering the findings, this consult was initiated. Patient is already on proper antibiotics/Zosyn for presumptive aspiration pneumonia. Patient is receiving amiodarone for atrial fibrillation with RVR, and he is being followed by cardiology. It was felt that the patient may have had orthostatic hypotension associated with paroxysmal atrial fibrillation and RVR. Leading to fall and initial presentation. Nephrology saw the patient for acute on chronic kidney injury and for his low sodium. His initial sodium on presentation was 128, and has been ranging between 126 and 129. Patient did receive Lasix since admission but presently Lasix on hold. Patient is been pain on Coumadin for his atrial fibrillation, and presently on amiodarone drip. Patient is also on midodrine for his low blood pressure. Pulmonary-ceja, the patient is not a great historian, denies any cough, denies any wheezing, he does have chronic shortness of breath, no fever, no chills, no hemoptysis. Patient was reevaluated today on 06/22/2021, patient remains laying in bed, comfortable, asymptomatic, basically about the same as he was yesterday, he looks chronically ill, weak, continues to have intermittent episodes of paro xysmal atrial fibrillation with RVR. Patient denies any shortness of breath, no cough, no chest pain, he is coughing up some yellow sputum, last night had to be placed back on amiodarone infusion because of his atrial fibrillation and RVR. Remains on antibiotics for presumptive aspiration right lower lobe pneumonia. CBC is relatively unremarkable, d-dimer is 1.31. Sodium is 128 electrolytes ot herwise are normal BUN is 25 creatinine 1.54, relatively unchanged over the last few days, being closely monitored by nephrology. Objective - Vital Signs Vital signs: Vital Signs Temp 97.7 F 06/22/21 12:00 Pulse 107 H 06/22/21 12:00 Resp 20 06/22/21 12:00 BP 116/71 06/22/21 12:00 Pulse Ox 95 06/22/21 12:00 Intake & Output 06/21/21 06/22/21 06/22/21 18:59 06:59 18:59 Intake Total 586.338 Output Total 450 500 700 Balance 136.338 -500 -700 Weight 68.5 kg 71.5 kg Intake: Intake, IV Titration 248.338 Amount Amiodarone 450 mg In 248.338 Dextrose 5% in Water 250 ml @ 0.5 MG/MIN 16.667 mls/hr IV .Q15H [facility] Rx#: [id number] Oral 338 Output: Urine 450 500 700 Coude 700 Other: Voiding Method Indwelling Catheter Indwelling Catheter Indwelling Catheter - Exam GENERAL EXAM: Revealed a 61-year-old white male in no distress. HEAD: Normocephalic. EYES: Normal reaction of pupils, equal size. NOSE: Clear with pink turbinates. THROAT: No erythema or exudates. NECK: No masses, no JVD. CHEST: No chest wall deformity. LUNGS: Diminished breath sounds at the bases minimal crackles at the right base. CVS: S1 and S2 normal with no audible murmur, regular rhythm. ABDOMEN: No hepatosplenomegaly, normal bowel sounds, no guarding or rigidity. SKIN: No rashes CENTRAL NERVOUS SYSTEM: Generally weak, No focal deficits, tone is normal in all 4 extremities. Alert and oriented 3. EXTREMITIES: Negative clubbing edema or cyanosis - Labs CBC & Chem 7: 06/22/21 06:01 06/22/21 06:01 Labs: Abnormal Lab Results - Last 24 Hours (Table) 06/21/21 06/21/21 06/22/21 Range/Units 16:39 20:10 06:01 RBC (4.30-5.90) m/uL Hgb (13.0-17.5) gm/dL Hct (39.0-53.0) % MCV (80.0-100.0) fL MCH (25.0-35.0) pg RDW (11.5-15.5) % Lymphocytes # (1.0-4.8) k/uL Macrocytosis PT (9.0-12.0) sec INR (<1.2) D-Dimer (<0.60) mg/L FEU Sodium 128 L (137-145) mmol/L Chloride 96 L (98-107) mmol/L Carbon Dioxide 21 L (22-30) mmol/L BUN 25 H (9-20) mg/dL Creatinine 1.54 H (0.66-1.25) mg/dL Glucose 101 H (74-99) mg/dL POC Glucose (mg/dL) 132 H 121 H (75-99) mg/dL Total Protein 5.3 L (6.3-8.2) g/dL Albumin 2.5 L (3.5-5.0) g/dL 06/22/21 06/22/21 06/22/21 Range/Units 06:01 06:01 06:10 RBC 2.72 L (4.30-5.90) m/uL Hgb 10.4 L (13.0-17.5) gm/dL Hct 29.7 L (39.0-53.0) % MCV 109.1 H (80.0-100.0) fL MCH 38.2 H (25.0-35.0) pg RDW 15.9 H (11.5-15.5) % Lymphocytes # 0.7 L (1.0-4.8) k/uL Macrocytosis Marked A PT 35.6 H (9.0-12.0) sec INR 3.7 H (<1.2) D-Dimer (<0.60) mg/L FEU Sodium (137-145) mmol/L Chloride (98-107) mmol/L Carbon Dioxide (22-30) mmol/L BUN (9-20) mg/dL Creatinine (0.66-1.25) mg/dL Glucose (74-99) mg/dL POC Glucose (mg/dL) 107 H (75-99) mg/dL Total Protein (6.3-8.2) g/dL Albumin (3.5-5.0) g/dL 06/22/21 06/22/21 Range/Units 09:29 11:35 RBC (4.30-5.90) m/uL Hgb (13.0-17.5) gm/dL Hct (39.0-53.0) % MCV (80.0-100.0) fL MCH (25.0-35.0) pg RDW (11.5-15.5) % Lymphocytes # (1.0-4.8) k/uL Macrocytosis PT (9.0-12.0) sec INR (<1.2) D-Dimer 1.31 H (<0.60) mg/L FEU Sodium (137-145) mmol/L Chloride (98-107) mmol/L Carbon Dioxide (22-30) mmol/L BUN (9-20) mg/dL Creatinine (0.66-1.25) mg/dL Glucose (74-99) mg/dL POC Glucose (mg/dL) 151 H (75-99) mg/dL Total Protein (6.3-8.2) g/dL Albumin (3.5-5.0) g/dL Microbiology - Last 24 Hours (Table) 06/21/21 17:49 Gram Stain - Preliminary Sputum Sputum Culture - Preliminary Assessment and Plan Assessment: Impression: Status post fall at home could be related to orthostatic hypoten diana, possible syncope, could also be related to cardiac arrhythmia considering the patient is having intermittent episodes of atrial fibrillation with RVR. Acute right lower lobe pneumonia, suspect aspiration unless for otherwise. Tobacco dependence syndrome, [id number] smoking history. Paroxysmal atrial fibrillation. With RVR. Hypovolemic hyponatremia on presentation. However considering the patient had hyponatremia and hyperkalemia would consider ordering a baseline cortisol level. Acute on chronic kidney disease. Type 2 diabetes History of underlying hypertension History of cerebellar stroke Recommendation: Continue Zosyn Continue bronchodilators. Continue to monitor electrolytes including sodium and potassium as well as renal profile. Continue amiodarone as per cardiology. Continue Coumadin and adjust accordingly. Continue DuoNeb updrafts 4 times a day and when necessary. Continue Pepcid. Continue close monitoring of sugars. We will continue to follow. Consider switching Zosyn to Augmentin when the patient is cleared for discharge by other consultants. Time with Patient: Less than 30
--- NOTE | 2021-06-22 15:02 | FL ---
EXAMINATION TYPE: FL barium swallow w video DATE OF EXAM: 06/22/2021 CLINICAL HISTORY: 61-year-old male with history of cerebellar stroke, gurgling after eating/swallowin g. TECHNIQUE: Deglutition study is performed utilizing thin liquid barium, honey and nectar thick liqui d barium, barium thick applesauce, and barium coated cracker. Total fluoroscopy time: 2 minutes 19 seconds. Total images: None. Real-time fluoroscopy support was provided to speech pathology. COMPARISON: None. FINDINGS: Swallow initiation was mildly delayed with bolus free spilling to the level of the vallecula. There i s absent pharyngeal peristalsis along the posterior wall. There is large malik aspiration with thin liquids. Moderate aspiration is noted with honey thickened liquids. Pureed and solid consistency shows no penetration or aspiration. However, there are severe piriform sinus residuals noted. IMPRESSION: 1. Large amount of malik aspiration with thin liquids and moderate aspiration with honey thickened li quids. 2. While there is no penetration or aspiration seen with pureed or solid, there is severe piriform si nus residuals which places the patient at risk. Please refer to speech therapist notes for further details if necessary.
--- NOTE | 2021-06-22 16:08 | NM ---
EXAMINATION TYPE: NM pul vent and perfuse DATE OF EXAM: 06/22/2021 COMPARISON: Chest x-ray from earlier today. HISTORY: Shortness of breath, wheeze, and cough. Elevated d-dimer TECHNIQUE: Utilizing inhalation of 58.9 mCi Tc 99m DTPA aerosol and intravenous injection of 5.2 mCi of Tc 99m MAA, ventilation and perfusion images are acquired post injection in multiple projections. FINDINGS: Normal radiotracer distribution is noted in the lungs. Mild central clumping on the ventilation image s right hilar level. Some matching defect right lung base corresponds to the area of consolidation. T here is no evidence of mismatched defects. IMPRESSION: Low scintigraphic evidence for acute pulmonary embolism.
--- NOTE | 2021-06-22 16:23 | P.PN ---
Subjective Progress Note Date: 06/22/21 Everett Juárez, is a 61-year-old male patient of Dr. Jama, who presented to [facility] emergency room after sustaining a fall, and complaining of generalized weakness and dizziness, patient is not clear whether he passed out or had any loss of consciousness. Patient was also complaining of chest pain in the EMS, EKG was within normal limits and troponin level was less than 0.01 He was evaluated in the emergency room vital examination on presentation revealed a temperature of 97.4 pulse 71 respirations 16 blood pressure 87/50 pulse ox 94% on room air Laboratory data revealed a white blood count of 8.6 hemoglobin 12.0 platelet count 338 INR 1.2 sodium 128 potassium 6.2 chloride 99 CO2 22 BUN 17 creatinine 2.01 lactic acid on presentation 2.1 urine analysis did not reveal evidence of significant infection. Testing in the emergency room revealed EKG revealed normal sinus rhythm normal EKG chest x-ray done in the emergency room revealed no acute lung disease there was prominent pulmonary leon that could be related to adenopathy. 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 Patient was admitted to medical floor for further evaluation and treatment. Past medical history is significant for history of hypertension, history of hyperlipidemia, history of chronic kidney disease, history of [id number]-qaesvmryd diabetes mellitus, history of previous stroke, history of paroxysmal atrial fibrillation maintained on Coumadin, history of COPD, patient still smoke a few cigarettes per day, he denies alcohol use. On review of systems Patient is alert and responsive in no distress, he denies any complaints there is no fever or chills no headache or dizziness no chest pain no shortness of breath no palpitation no cough no nausea or vomiting no abdominal pain no diarrhea no blood in the stools no burning with urination no frequency or urgency and no hematuria, there is no weakness or numbness in any of the extremities no change in vision speech, gait was not tested. On 06/16/2021 patient was seen and examined on the telemetry floor he is alert and oriented 3 in no apparent distress he is still complaining of dizziness and weakness otherwise he denies any complaints there is no fever or chills no headache no chest pain no shortness of breath no cough no palpitation no nausea or vomiting no abdominal pain no diarrhea no blood in the stools no burning with urination no frequency or urgency and no hematuria there is no weakness or numbness in any of the extremities no change in vision or in speech On 06/17/2021 Patient was seen and examined on the medical floor, he is alert and oriented x 3 in no distress, he denies any complaints there is no fever or chills no headache or dizziness no chest pain no shortness of breath no palpitation no cough no nausea or vomiting no abdominal pain no diarrhea no blood in the stools no burning with urination no frequency or urgency and no hematuria, there is no weakness or numbness in any of the extremities no change in vision or speech, gait was not tested at this time, patient had significant orthostatic hypotension, this was discussed with cardiology, and dose of Catapres was adjusted down to 0.1 mg by mouth twice a day, patient will be reevaluated by cardiology in a.m. On 06/18/2021 patient was seen and examined on the medical floor, he is alert and oriented 3 in no distress, he is complaining of weakness otherwise he denies any specific complaints, there is no fever or chills no headache or dizziness no chest pain no shortness of breath no cough no nausea or vomiting no abdominal pain no diarrhea no blood in the stools no burning with urination no frequency or urgency no hematuria, there is no weakness or numbness in any of the extremities there is no change in vision speech or gait. Repeat orthostatic hypotension reveals significant drop while standing, cardiology are following, yesterday dose of Catapres was decreased to 0.1 by mouth twice daily, awaiting further recommendation from cardiology On 06/19/2021 patient was seen and examined on the medical floor, he is alert and oriented 3 in no distress, he is complaining of weakness otherwise he denies any specific complaints, he is still having significant orthostatic hypotension was significant drop in blood pressure when patient stands up. the re is no fever or chills no headache or dizziness no chest pain no shortness of breath no cough no nausea or vomiting no abdominal pain no diarrhea no blood in the stools no burning with urination no frequency or urgency no hematuria, there is no weakness or numbness in any of the extremities there is no change in vision speech or gait. Cardiology are following at this time Catapres is being discontinued and midodrine was added to medication regimen will continue to monitor closely. On 06/20/2021 patient was seen and examined on the medical floor he is alert and oriented 3 in no apparent distress, this morning he had an episode of palpitation and severe shortness of breath, EKG revealed SVT versus A. fib with RVR with a heart rate of 186 patient was transferred to [facility]. he was seen by ca rdiology and was started on IV amiodarone, chest x-ray was done today and was suspicious for right sided infiltrate suggestive of pneumonia patient is stating that he is having some cough with yellow sputum production WBC is low, patient was started on IV antibiotic Zosyn, and pulmonary consultation was requested. Patient denies any fever or chills no headache or dizziness no chest pain no nausea or vomiting no abdominal pain no diarrhea and no urinary symptoms. On 06/21/2021 patient was seen and examined on the medical floor he is complaining of cough otherwise he denies any complaints at this time there is no fever or chills no headache or dizziness no chest pain no shortness of breath no nausea or vomiting no abdominal pain no diarrhea no blood in the stools no burning with urination no frequency or urgency and no hematuria, yesterday patient had an episode of A. fib with RVR, he was started on IV amiodarone by cardiology and was transferred to telemetry floor, also chest x-ray revealed evidence of right basilar infiltrate, he was started on IV Zosyn pulmonary consultation was requested, sputum culture was ordered On 06/22/2021 Patient was seen and examined on the medical floor, he is alert and oriented x 3 in no distress, he is complaining of cough otherwise he denies any complaints there is no fever or chills no headache or dizziness no chest pain no shortness of breath no palpitation no cough no nausea or vomiting no abdominal pain no diarrhea no blood in the stools no burning with urination no frequency or urgency and no hematuria, there is no weakness or numbness in any of the extremities no change in vision speech or gait. Patient failed swallow evaluation with all food consistency today, he is kept nothing by mouth consultation for Dr. Zacarias for PEG tube placement was initiated Objective - Vital Signs Vital signs: Vital Signs Temp 97.7 F 06/22/21 08:00 Pulse 126 H 06/22/21 08:00 Resp 20 06/22/21 08:00 BP 121/74 06/22/21 08:00 Pulse Ox 92 L 06/22/21 08:00 Intake & Output 06/21/21 06/22/21 06/22/21 18:59 06:59 18:59 Intake Total 586.338 Output Total 450 500 700 Balance 136.338 -500 -700 Weight 68.5 kg 71.5 kg Intake: Intake, IV Titration 248.338 Amount Amiodarone 450 mg In 248.338 Dextrose 5% in Water 250 ml @ 0.5 MG/MIN 16.667 mls/hr IV .Q15H [facility] Rx#: [id number] Oral 338 Output: Urine 450 500 700 Coude 700 Other: Voiding Method Indwelling Catheter Indwelling Catheter Indwelling Catheter - Exam In general patient is alert and responsive in no distress HEENT head normocephalic and atraumatic Neck is supple no JVD no goiter no lymphadenopathy no carotid bruit Chest examination is clear to auscultation no crackles no wheezing Cardiac exam reveals regular heart sounds S1 and S2 no gallops no murmurs Abdomen is soft nontender no organomegaly with normal bowel sounds Extremity exam reveals no edema no cyanosis or clubbing Neurological examination reveals no gross focal deficits - Labs CBC & Chem 7: 06/22/21 06:01 06/22/21 06:01 Labs: Abnormal Lab Results - Last 24 Hours (Table) 06/21/21 06/21/21 06/21/21 Range/Units 11:42 16:39 20:10 RBC (4.30-5.90) m/uL Hgb (13.0-17.5) gm/dL Hct (39.0-53.0) % MCV (80.0-100.0) fL MCH (25.0-35.0) pg RDW (11.5-15.5) % Lymphocytes # (1.0-4.8) k/uL Macrocytosis PT (9.0-12.0) sec INR (<1.2) D-Dimer (<0.60) mg/L FEU Sodium (137-145) mmol/L Chloride (98-107) mmol/L Carbon Dioxide (22-30) mmol/L BUN (9-20) mg/dL Creatinine (0.66-1.25) mg/dL Glucose (74-99) mg/dL POC Glucose (mg/dL) 158 H 132 H 121 H (75-99) mg/dL Total Protein (6.3-8.2) g/dL Albumin (3.5-5.0) g/dL 06/22/21 06/22/21 06/22/21 Range/Units 06:01 06:01 06:01 RBC 2.72 L (4.30-5.90) m/uL Hgb 10.4 L (13.0-17.5) gm/dL Hct 29.7 L (39.0-53.0) % MCV 109.1 H (80.0-100.0) fL MCH 38.2 H (25.0-35.0) pg RDW 15.9 H (11.5-15.5) % Lymphocytes # 0.7 L (1.0-4.8) k/uL Macrocytosis Marked A PT 35.6 H (9.0-12.0) sec INR 3.7 H (<1.2) D-Dimer (<0.60) mg/L FEU Sodium 128 L (137-145) mmol/L Chloride 96 L (98-107) mmol/L Carbon Dioxide 21 L (22-30) mmol/L BUN 25 H (9-20) mg/dL Creatinine 1.54 H (0.66-1.25) mg/dL Glucose 101 H (74-99) mg/dL POC Glucose (mg/dL) (75-99) mg/dL Total Protein 5.3 L (6.3-8.2) g/dL Albumin 2.5 L (3.5-5.0) g/dL 06/22/21 06/22/21 Range/Units 06:10 09:29 RBC (4.30-5.90) m/uL Hgb (13.0-17.5) gm/dL Hct (39.0-53.0) % MCV (80.0-100.0) fL MCH (25.0-35.0) pg RDW (11.5-15.5) % Lymphocytes # (1.0-4.8) k/uL Macrocytosis PT (9.0-12.0) sec INR (<1.2) D-Dimer 1.31 H (<0.60) mg/L FEU Sodium (137-145) mmol/L Chloride (98-107) mmol/L Carbon Dioxide (22-30) mmol/L BUN (9-20) mg/dL Creatinine (0.66-1.25) mg/dL Glucose (74-99) mg/dL POC Glucose (mg/dL) 107 H (75-99) mg/dL Total Protein (6.3-8.2) g/dL Albumin (3.5-5.0) g/dL Microbiology - Last 24 Hours (Table) 06/21/21 17:49 Sputum Culture - Preliminary Sputum 06/20/21 22:11 Gram Stain - Preliminary Sputum Sputum Culture - Preliminary Assessment and Plan Plan: Fall at home with unclear history whether patient had a syncopal episode or loss of consciousness Episode of chest pain while in the ambulance Underlying history of paroxysmal atrial fibrillation, maintained on Coumadin however her INR was subtherapeutic at 1.2 on presentation, today INR is therapeutic at 2.7 Evidence of dehydration with electrolyte imbalance with hyponatremia and hyperkalemia Underlying history of chronic kidney disease Underlying history of zoo-uymvqzf-quibzvdhd diabetes mellitus, no evidence of hypoglycemia Underlying history of hypertension Previous history of cerebellar stroke. Right basilar infiltrate suggestive of pneumonia, patient started on IV Zosyn, pulmonary consultation requested At this time patient is admitted to telemetry floor Will check echocardiogram and carotid Doppler Corrected electrolytes was normal saline and Kayexalate Recheck labs in a.m. Consult cardiology regarding episode of chest pain, dizziness with fall, questionable loss of consciousness Also for review of Coumadin, patient is subtherapeutic, and assess if he qualifies for a different anticoagulation agent Consult neurology regarding dizziness fall and history of cerebellar stroke Consult nephrology in regard to chronic kidney disease and electrolyte imbalance Will recheck labs and follow closely
[2021-06-22 16:37] LABS: Glucose,Whole Blood 182 mg/dL (75-99)
[2021-06-22] MEDS ORDERED: WARFARIN 0.5 MG TAB PO ONE (18:00)
[2021-06-22 20:18] LABS: Glucose,Whole Blood 130 mg/dL (75-99)
[2021-06-22] MEDS: ATORVASTATIN 80 MG TAB PO SCH (20:39)
[2021-06-23] MEDS: AMIODARONE 450 MG in DEXTROSE 5% IN WATER 250 ML IV SCH ×4 (03:15→10:21)
[2021-06-23 06:12] LABS: Glucose,Whole Blood 128 mg/dL (75-99)
[2021-06-23] MEDS: MIDODRINE 5 MG TAB PO SCH ×3 (06:14→10:22)
[2021-06-23] MEDS: CYANOCOBALAMIN 500 MCG TAB PO SCH (08:13)
[2021-06-23] MEDS: VENLAFAXINE HCL 75 MG TAB PO SCH ×2 (08:13→19:57)
[2021-06-23] MEDS: FAMOTIDINE 20 MG TAB PO SCH (08:13)
[2021-06-23] MEDS: PIOGLITAZONE 30 MG TAB PO SCH (08:13)
[2021-06-23] MEDS: METOPROLOL TARTRATE 25 MG TAB PO SCH ×3 (08:13→19:57)
[2021-06-23] MEDS: FOLIC ACID 1 MG TAB PO SCH (08:13)
[2021-06-23] MEDS: SYMBICORT 160-4.5 MCG INHALER INHALATION SCH ×2 (08:44→19:55)
[2021-06-23] MEDS: IPRATROPIUM-ALBUTEROL 3 ML NEB INHALATION SCH ×4 (08:44→19:55)
--- NOTE | 2021-06-23 09:11 | P.PN ---
Subjective Patient is seen in follow-up for acute kidney injury on chronic kidney disease. Renal function improved from admission - creatinine stable at 1.54 yesterday. Nonoliguric. No chest pain or shortness of breath. No vomiting or diarrhea. Patient is on amiodarone drip for A. fib. Vital signs are stable. General: The patient appeared well nourished and normally developed. HEENT: Head exam is unremarkable. LUNGS: Breath sounds decreased. HEART: Irregular rate and rhythm. ABDOMEN: No distention. EXTREMITITES: No edema. Objective - Vital Signs Vital signs: Vital Signs Temp 97.5 F L 06/23/21 07:41 Pulse 106 H 06/23/21 08:59 Resp 18 06/23/21 07:41 BP 135/76 06/23/21 07:41 Pulse Ox 98 06/23/21 08:47 Intake & Output 06/22/21 06/23/21 06/23/21 18:59 06:59 18:59 Intake Total 350 0 Output Total 1400 1080 Balance -1400 -730 0 Weight 80 kg Intake: Intake, IV Titration 350 Amount Amiodarone 450 mg In 250 Dextrose 5% in Water 250 ml @ 0.5 MG/MIN 16.667 mls/hr IV .Q15H [facility] Rx#: [id number] Piperacillin-Tazobactam 3 100 .375 gm In Sodium Chloride 0.9% 100 ml @ 25 mls/hr IVPB Q8HR [facility] Rx# :[id number] Oral 0 Output: Urine 1400 1080 Coude 700 Other: Voiding Method Indwelling Catheter Indwelling Catheter Indwelling Catheter # Voids 1 - Labs CBC & Chem 7: 06/22/21 06:01 06/22/21 06:01 Labs: Abnormal Lab Results - Last 24 Hours (Table) 06/22/21 06/22/21 06/22/21 Range/Units 09:29 09:29 11:35 D-Dimer 1.31 H (<0.60) mg/L FEU POC Glucose (mg/dL) 151 H (75-99) mg/dL Procalcitonin 0.74 H (0.02-0.09) ng/mL 06/22/21 06/22/21 06/23/21 Range/Units 16:35 20:17 06:11 D-Dimer (<0.60) mg/L FEU POC Glucose (mg/dL) 182 H 130 H 128 H (75-99) mg/dL Procalcitonin (0.02-0.09) ng/mL Microbiology - Last 24 Hours (Table) 06/21/21 17:49 Gram Stain - Preliminary Sputum Sputum Culture - Preliminary Assessment and Plan Plan: Assessment: 1. Acute kidney injury mostly prerenal improving with IV hydration. Creatinine was 2.2 on admission and stable at 1.54 yesterday. No hydronephrosis noted on kidney ultrasound. UA fairly benign. 2. Chronic kidney disease 3a with baseline creatinine near 1.6-2 secondary to solitary right kidney and obstructive uropathy. 3. Status post left nephrectomy. 4. Status post removal of left nephrostomy tube on 06/11/2021. 5. Hyperkalemia secondary to acute kidney injury and enalapril. Resolved. Now slightly hypokalemic. 6. Diabetes mellitus. 7. Hyponatremia from acute kidney injury and poor solute intake. Urine sodium 55 and urine osmolality 620. 8. Hypomagnesemia from poor intake. Replaced. Stable. 9. Orthostatic hypotension. Cardiology following. On midodrine. 10. Urinary retention. Lara catheter placed. 11. A. fib with RVR on amiodarone drip. On anticoagulation. Cardiology following. 12. Anemia of chronic kidney disease. Iron deficiency noted - status post IV iron. 13. Chronic chronic diastolic CHF with severe pulmonary hypertension. Plan: Encouraged oral intake. Maintain fluid restriction. Avoid nephrotoxins. ANTONIO inhibitor and clonidine stopped. Cortisol level not low. Maintain midodrine. Continue to monitor orthostatic vitals. Lasix 40 mg IV given 06/22/21. AM labs pending. Follow-up TSH as well.
[2021-06-23 09:41] LABS: Basophils % (A) 0 %; Eosinophils # (A) 0.1 k/uL (0-0.7); Eosinophils % (A) 1 %; HCT 30.3 % (39.0-53.0); Lymphocytes # (A) 0.7 k/uL (1.0-4.8); Lymphocytes % (A) 11 %; MCH 37.4 pg (25.0-35.0); MCHC 33.1 g/dL (31.0-37.0); MCV 112.9 fL (80.0-100.0); Macrocytosis Marked; Mean Platelet Volume 7.5; Monocytes # (A) 0.4 k/uL (0-1.0); Monocytes % (A) 7 %; Neutrophils # (A) 4.8 k/uL (1.3-7.7); Neutrophils % (A) 78 %; Platelet Count 322 k/uL (150-450); RBC 2.68 m/uL (4.30-5.90); RDW 15.4 % (11.5-15.5); WBC 6.1 k/uL (3.8-10.6)
[2021-06-23 10:02] LABS: INR 4.3 (<1.2); Prothrombin Time 41.1 sec (9.0-12.0)
[2021-06-23 10:07] LABS: Albumin 2.7 g/dL (3.5-5.0); Calcium 8.6 mg/dL (8.4-10.2); Magnesium 1.8 mg/dL (1.6-2.3); Potassium 3.8 mmol/L (3.5-5.1); Total Bilirubin 0.9 mg/dL (0.2-1.3); Total Protein 5.5 g/dL (6.3-8.2)
--- NOTE | 2021-06-23 10:09 | P.PN ---
Subjective Progress Note Date: 06/23/21 Everett Juárez, is a 61-year-old male patient of Dr. Jama, who presented to [facility] emergency room after sustaining a fall, and complaining of generalized weakness and dizziness, patient is not clear whether he passed out or had any loss of consciousness. Patient was also complaining of chest pain in the EMS, EKG was within normal limits and troponin level was less than 0.01 He was evaluated in the emergency room vital examination on presentation revealed a temperature of 97.4 pulse 71 respirations 16 blood pressure 87/50 pulse ox 94% on room air Laboratory data revealed a white blood count of 8.6 hemoglobin 12.0 platelet count 338 INR 1.2 sodium 128 potassium 6.2 chloride 99 CO2 22 BUN 17 creatinine 2.01 lactic acid on presentation 2.1 urine analysis did not reveal evidence of significant infection. Testing in the emergency room revealed EKG revealed normal sinus rhythm normal EKG chest x-ray done in the emergency room revealed no acute lung disease there was prominent pulmonary leon that could be related to adenopathy. 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 Patient was admitted to medical floor for further evaluation and treatment. Past medical history is significant for history of hypertension, history of hyperlipidemia, history of chronic kidney disease, history of [id number]-hvnredihv diabetes mellitus, history of previous stroke, history of paroxysmal atrial fibrillation maintained on Coumadin, history of COPD, patient still smoke a few cigarettes per day, he denies alcohol use. On review of systems Patient is alert and responsive in no distress, he denies any complaints there is no fever or chills no headache or dizziness no chest pain no shortness of breath no palpitation no cough no nausea or vomiting no abdominal pain no diarrhea no blood in the stools no burning with urination no frequency or urgency and no hematuria, there is no weakness or numbness in any of the extremities no change in vision speech, gait was not tested. On 06/16/2021 patient was seen and examined on the telemetry floor he is alert and oriented 3 in no apparent distress he is still complaining of dizziness and weakness otherwise he denies any complaints there is no fever or chills no headache no chest pain no shortness of breath no cough no palpitation no nausea or vomiting no abdominal pain no diarrhea no blood in the stools no burning with urination no frequency or urgency and no hematuria there is no weakness or numbness in any of the extremities no change in vision or in speech On 06/17/2021 Patient was seen and examined on the medical floor, he is alert and oriented x 3 in no distress, he denies any complaints there is no fever or chills no headache or dizziness no chest pain no shortness of breath no palpitation no cough no nausea or vomiting no abdominal pain no diarrhea no blood in the stools no burning with urination no frequency or urgency and no hematuria, there is no weakness or numbness in any of the extremities no change in vision or speech, gait was not tested at this time, patient had significant orthostatic hypotension, this was discussed with cardiology, and dose of Catapres was adjusted down to 0.1 mg by mouth twice a day, patient will be reevaluated by cardiology in a.m. On 06/18/2021 patient was seen and examined on the medical floor, he is alert and oriented 3 in no distress, he is complaining of weakness otherwise he denies any specific complaints, there is no fever or chills no headache or dizziness no chest pain no shortness of breath no cough no nausea or vomiting no abdominal pain no diarrhea no blood in the stools no burning with urination no frequency or urgency no hematuria, there is no weakness or numbness in any of the extremities there is no change in vision speech or gait. Repeat orthostatic hypotension reveals significant drop while standing, cardiology are following, yesterday dose of Catapres was decreased to 0.1 by mouth twice daily, awaiting further recommendation from cardiology On 06/19/2021 patient was seen and examined on the medical floor, he is alert and oriented 3 in no distress, he is complaining of weakness otherwise he denies any specific complaints, he is still having significant orthostatic hypotension was significant drop in blood pressure when patient stands up. the re is no fever or chills no headache or dizziness no chest pain no shortness of breath no cough no nausea or vomiting no abdominal pain no diarrhea no blood in the stools no burning with urination no frequency or urgency no hematuria, there is no weakness or numbness in any of the extremities there is no change in vision speech or gait. Cardiology are following at this time Catapres is being discontinued and midodrine was added to medication regimen will continue to monitor closely. On 06/20/2021 patient was seen and examined on the medical floor he is alert and oriented 3 in no apparent distress, this morning he had an episode of palpitation and severe shortness of breath, EKG revealed SVT versus A. fib with RVR with a heart rate of 186 patient was transferred to [facility]. he was seen by ca rdiology and was started on IV amiodarone, chest x-ray was done today and was suspicious for right sided infiltrate suggestive of pneumonia patient is stating that he is having some cough with yellow sputum production WBC is low, patient was started on IV antibiotic Zosyn, and pulmonary consultation was requested. Patient denies any fever or chills no headache or dizziness no chest pain no nausea or vomiting no abdominal pain no diarrhea and no urinary symptoms. On 06/21/2021 patient was seen and examined on the medical floor he is complaining of cough otherwise he denies any complaints at this time there is no fever or chills no headache or dizziness no chest pain no shortness of breath no nausea or vomiting no abdominal pain no diarrhea no blood in the stools no burning with urination no frequency or urgency and no hematuria, yesterday patient had an episode of A. fib with RVR, he was started on IV amiodarone by cardiology and was transferred to telemetry floor, also chest x-ray revealed evidence of right basilar infiltrate, he was started on IV Zosyn pulmonary consultation was requested, sputum culture was ordered On 06/22/2021 Patient was seen and examined on the medical floor, he is alert and oriented x 3 in no distress, he is complaining of cough otherwise he denies any complaints there is no fever or chills no headache or dizziness no chest pain no shortness of breath no palpitation no cough no nausea or vomiting no abdominal pain no diarrhea no blood in the stools no burning with urination no frequency or urgency and no hematuria, there is no weakness or numbness in any of the extremities no change in vision speech or gait. Patient failed swallow evaluation with all food consistency today, he is kept nothing by mouth consultation for Dr. Zacarias for PEG tube placement was initiated. On 06/23/2021 patient is alert and oriented 3. Patient is resting comfortably in bed. Patient currently maintained on amiodarone drip per cardiology. Patient also maintained on IV Zosyn for aspiration pneumonia. Surgical services have been consulted for PEG tube placement. At this time pulmonary, cardiology, nephrology and surgical services following. Repeat labs have been ordered. Patient is still complaining of chest congestion and cough. Patient denies chest pain. Patient denies nausea vomiting or diarrhea. Patient denies any urinary burning or frequency Objective - Vital Signs Vital signs: Vital Signs Temp 97.5 F L 06/23/21 07:41 Pulse 106 H 06/23/21 08:59 Resp 18 06/23/21 07:41 BP 135/76 06/23/21 07:41 Pulse Ox 98 06/23/21 08:47 Intake & Output 06/22/21 06/23/21 06/23/21 18:59 06:59 18:59 Intake Total 350 0 Output Total 1400 1080 Balance -1400 -730 0 Weight 80 kg Intake: Intake, IV Titration 350 Amount Amiodarone 450 mg In 250 Dextrose 5% in Water 250 ml @ 0.5 MG/MIN 16.667 mls/hr IV .Q15H MARY ANN Rx#: [id number] Piperacillin-Tazobactam 3 100 .375 gm In Sodium Chloride 0.9% 100 ml @ 25 mls/hr IVPB Q8HR MARY ANN Rx# :[id number] Oral 0 Output: Urine 1400 1080 Coude 700 Other: Voiding Method Indwelling Catheter Indwelling Catheter Indwelling Catheter # Voids 1 - Exam In general patient is alert and responsive in no distress HEENT head normocephalic and atraumatic Neck is supple no JVD no goiter no lymphadenopathy no carotid bruit Chest examination is clear to auscultation no crackles no wheezing Cardiac exam reveals regular heart sounds S1 and S2 no gallops no murmurs Abdomen is soft nontender no organomegaly with normal bowel sounds Extremity exam reveals no edema no cyanosis or clubbing Neurological examination reveals no gross focal deficits - Labs CBC & Chem 7: 06/23/21 09:04 06/22/21 06:01 Labs: Abnormal Lab Results - Last 24 Hours (Table) 06/22/21 06/22/21 06/22/21 Range/Units 09:29 11:35 16:35 RBC (4.30-5.90) m/uL Hgb (13.0-17.5) gm/dL Hct (39.0-53.0) % MCV (80.0-100.0) fL MCH (25.0-35.0) pg Lymphocytes # (1.0-4.8) k/uL Macrocytosis PT (9.0-12.0) sec INR (<1.2) POC Glucose (mg/dL) 151 H 182 H (75-99) mg/dL Procalcitonin 0.74 H (0.02-0.09) ng/mL 06/22/21 06/23/21 06/23/21 Range/Units 20:17 06:11 09:04 RBC 2.68 L (4.30-5.90) m/uL Hgb 10.0 L (13.0-17.5) gm/dL Hct 30.3 L (39.0-53.0) % MCV 112.9 H (80.0-100.0) fL MCH 37.4 H (25.0-35.0) pg Lymphocytes # 0.7 L (1.0-4.8) k/uL Macrocytosis Marked A PT (9.0-12.0) sec INR (<1.2) POC Glucose (mg/dL) 130 H 128 H (75-99) mg/dL Procalcitonin (0.02-0.09) ng/mL 06/23/21 Range/Units 09:04 RBC (4.30-5.90) m/uL Hgb (13.0-17.5) gm/dL Hct (39.0-53.0) % MCV (80.0-100.0) fL MCH (25.0-35.0) pg Lymphocytes # (1.0-4.8) k/uL Macrocytosis PT 41.1 H (9.0-12.0) sec INR 4.3 H (<1.2) POC Glucose (mg/dL) (75-99) mg/dL Procalcitonin (0.02-0.09) ng/mL Microbiology - Last 24 Hours (Table) 06/21/21 17:49 Gram Stain - Preliminary Sputum Sputum Culture - Preliminary Assessment and Plan Plan: Fall at home with unclear history whether patient had a syncopal episode or loss of consciousness Episode of chest pain while in the ambulance Atrial fibrillation with rapid ventricular response. Patient started on amiodarone drip per cardiology Underlying history of paroxysmal atrial fibrillation, maintained on Coumadin however her INR was subtherapeutic at 1.2 on presentation, today INR is therapeutic at 2.7 Evidence of dehydration with electrolyte imbalance with hyponatremia and hyperkalemia Underlying history of chronic kidney disease Underlying history of [id number]-[id number] diabetes mellitus, no evidence of hypoglycemia Underlying history of hypertension Previous history of cerebellar stroke. Right basilar infiltrate suggestive of pneumonia, patient started on IV Zosyn, pulmonary consultation requested Dysphagia. Patient was evaluated by speech pathology modified barium swallow completed surgical service is consulted for possible PEG tube placement DVT prophylaxis Coumadin. GI prophylaxis Pepcid Pulmonary, cardiology, nephrology and surgical services following Patient maintained on IV Zosyn Patient maintained on IV amiodarone Repeat labs ordered PT OT services consulted Social work consulted for possible ECF placement
[2021-06-23] MEDS: PIPERACILLIN-TAZOBACTAM 3.375 GM in SODIUM CHLORIDE 0.9% 100 ML IVPB SCH ×3 (10:31→23:17)
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
[2021-06-23] MEDS: HYDROmorphone 0.5 MG/0.5 ML SYRINGE IVP PRN (12:42)
[2021-06-23 12:54] LABS: Glucose,Whole Blood 149 mg/dL (75-99)
--- NOTE | 2021-06-23 14:39 | P.PN ---
Subjective Progress Note Date: 06/23/21 Principal diagnosis: Shortness of breath, aspiration pneumonia On 06/23/2021 patient seen in follow-up on selective care unit, he is awake and alert, in no acute distress, he is currently sitting up in the recliner, breathing comfortably, he is currently on 4 L of oxygen, with a pulse ox of 93- 98%, he sounds a little better although she still has a bit of a congested cough. Patient had malik aspiration during his modified barium swallow evaluation, and there was a large amount of malik aspiration with thin liquids and moderate aspiration with honey thickened liquids. While there was no penetration or aspiration seen with pured solids there was severe. Form sinus residuals which placed the patient at rest, and the recommendation at this time is for strict nothing by mouth, nor consultation has been placed to Gen. surgery for placement of PEG tube. Patient continues on amiodarone infusion at 0.5 mg. A bit tachycardic, but blood pressures were stable, afebrile. Sputum cultures have been negative. Blood cultures have been negative, today's labs have been reviewed, showing white blood cell, 6.1, hemoglobin of 10, INR is 4.3, sodium is 1:30, potassium is 3.8, chloride is 97, B1 is 22, creatinine is 1.44 Objective - Vital Signs Vital signs: Vital Signs Temp 98 F 06/23/21 13:38 Pulse 109 H 06/23/21 13:38 Resp 17 06/23/21 13:38 BP 134/76 06/23/21 13:38 Pulse Ox 98 06/23/21 13:38 Intake & Output 06/22/21 06/23/21 06/23/21 18:59 06:59 18:59 Intake Total 350 0 Output Total 1400 1080 Balance -1400 730 0 Weight 80 kg Intake: Intake, IV Titration 350 Amount Amiodarone 450 mg In 250 Dextrose 5% in Water 250 ml @ 0.5 MG/MIN 16.667 mls/hr IV .Q15H [facility] Rx#: [id number] Piperacillin-Tazobactam 3 100 .375 gm In Sodium Chloride 0.9% 100 ml @ 25 mls/hr IVPB Q8HR [facility] Rx# :[id number] Oral 0 Output: Urine 1400 1080 Coude 700 Other: Voiding Method Indwelling Catheter Indwelling Catheter Indwelling Catheter # Voids 1 - Exam GENERAL EXAM: Alert, pleasant, chronically ill looking 61-year-old male, sitting up in the recliner, on 4 L of oxygen, with pulse ox of 89% comfortable in no apparent distress. HEAD: Normocephalic/atraumatic. EYES: Normal reaction of pupils, equal size. Conjunctiva pink, sclera white. NOSE: Clear with pink turbinates. THROAT: No erythema or exudates. NECK: No masses, no JVD, no thyroid enlargement, no adenopathy. CHEST: No chest wall deformity. Symmetrical expansion. LUNGS: Equal air entry with diminished breath sounds and some crackles at the bases CVS: Regular rate and rhythm, normal S1 and S2, no gallops, no murmurs, no rubs ABDOMEN: Soft, nontender. No hepatosplenomegaly, normal bowel sounds, no guarding or rigidity. EXTREMITIES: No clubbing, no edema, no cyanosis, 2+ pulses and upper and lower extremities. MUSCULOSKELETAL: Muscle strength and tone normal. SPINE: No scoliosis or deformity SKIN: No rashes CENTRAL NERVOUS SYSTEM: Alert and oriented -3. No focal deficits, tone is normal in all 4 extremities. PSYCHIATRIC: Alert and oriented -3. Appropriate affect. Intact judgment and insight. - Labs CBC & Chem 7: 06/23/21 09:04 06/23/21 09:04 Labs: Abnormal Lab Results - Last 24 Hours (Table) 06/22/21 06/22/21 06/22/21 Range/Units 09:29 16:35 20:17 RBC (4.30-5.90) m/uL Hgb (13.0-17.5) gm/dL Hct (39.0-53.0) % MCV (80.0-100.0) fL MCH (25.0-35.0) pg Lymphocytes # (1.0-4.8) k/uL Macrocytosis PT (9.0-12.0) sec INR (<1.2) Sodium (137-145) mmol/L Chloride (98-107) mmol/L BUN (9-20) mg/dL Creatinine (0.66-1.25) mg/dL Glucose (74-99) mg/dL POC Glucose (mg/dL) 182 H 130 H (75-99) mg/dL Total Protein (6.3-8.2) g/dL Albumin (3.5-5.0) g/dL Procalcitonin 0.74 H (0.02-0.09) ng/mL 06/23/21 06/23/21 06/23/21 Range/Units 06:11 09:04 09:04 RBC 2.68 L (4.30-5.90) m/uL Hgb 10.0 L (13.0-17.5) gm/dL Hct 30.3 L (39.0-53.0) % MCV 112.9 H (80.0-100.0) fL MCH 37.4 H (25.0-35.0) pg Lymphocytes # 0.7 L (1.0-4.8) k/uL Macrocytosis Marked A PT (9.0-12.0) sec INR (<1.2) Sodium 130 L (137-145) mmol/L Chloride 97 L (98-107) mmol/L BUN 22 H (9-20) mg/dL Creatinine 1.44 H (0.66-1.25) mg/dL Glucose 129 H (74-99) mg/dL POC Glucose (mg/dL) 128 H (75-99) mg/dL Total Protein 5.5 L (6.3-8.2) g/dL Albumin 2.7 L (3.5-5.0) g/dL Procalcitonin (0.02-0.09) ng/mL 06/23/21 06/23/21 Range/Units 09:04 12:51 RBC (4.30-5.90) m/uL Hgb (13.0-17.5) gm/dL Hct (39.0-53.0) % MCV (80.0-100.0) fL MCH (25.0-35.0) pg Lymphocytes # (1.0-4.8) k/uL Macrocytosis PT 41.1 H (9.0-12.0) sec INR 4.3 H (<1.2) Sodium (137-145) mmol/L Chloride (98-107) mmol/L BUN (9-20) mg/dL Creatinine (0.66-1.25) mg/dL Glucose (74-99) mg/dL POC Glucose (mg/dL) 149 H (75-99) mg/dL Total Protein (6.3-8.2) g/dL Albumin (3.5-5.0) g/dL Procalcitonin (0.02-0.09) ng/mL Microbiology - Last 24 Hours (Table) 06/20/21 22:11 Gram Stain - Final Sputum Sputum Culture - Final 06/21/21 17:49 Gram Stain - Final Sputum Sputum Culture - Final Assessment and Plan Plan: Assessment: #1. Status post fall at home or could be related to orthostatic hypotension, possible syncope or possibility of cardiac arrhythmia, considering the patient is having intermittent episodes of A. fib with RVR #2. Acute right lower lobe pneumonia, suspect aspiration related #3. Dysphagia, patient had malik aspiration during modified barium swallow evaluation and at this time is complete nothing by mouth awaiting PEG tube placement #4. Paroxysmal atrial fibrillation, intermittent episodes of RVR, remains on amiodarone infusion at 0.5 mg per hour #5. Hypovolemic hyponatremia #6. Type 2 diabetes mellitus #7. History of hypertension #8. History of cerebellar stroke #9. History of [id number] smoking Plan: Continue with Zosyn Patient had malik aspiration during modified barium swallow, and at this time awaiting PEG tube placement Maintain aspiration precautions Continue [facility] Monitor blood sugars Once the patient is able to get the PEG tube his IV medications can be switched to oral became administered per the PEG tube The patient can be considered for discharge to the [facility], after he receives a PEG tube I performed a history & physical examination of the patient and discussed their management with my nurse practitioner, Shanti Pearson. I reviewed the nurse practitioner's note and agree with the documented findings and plan of care. Lung sounds are positive for diminished breath throughout the lung layton. The findings and the impression was discussed with the patient. I attest to the documentation by the nurse practitioner. Time with Patient: Less than 30
--- NOTE | 2021-06-23 14:50 | P.PN ---
Subjective This is a pleasant 61 male past medical history significant for hypertension, dyslipidemia, diabetes mellitus, paroxysmal atrial fibrillation (on coumadin), chronic kidney disease, CVA 2013 and peripheral arterial disease. He follows my office with Dr. Gonzalez. We've her on consult for positive orthostatic blood pressures, possible syncope and atrial fibrillation. Patient presents emergency department after sustaining a fall, complaining of generalized weakness and dizziness, it was unclear if patient did lose consciousness. On admission manny ent was found to be hyponatremic, hypokalemic, his INRs have been therapeutic, patient appeared to be dehydrated. Also suspect the patient had aspiration pneumonia currently being treated with IV zosyn. Patient was started on amiodarone infusion and converted to sinus mechanism. On admission, Patient's initial EKG revealed sinus rhythm, heart rate 77, no significant ST or T-wave abnormalities. Patient then converted to atrial fibrillation with RVR HR 180s. He had 3 negative troponins. Echocardiogram revealed an EF of 5560 percent, mild tricuspid regurgitation, severe pulmonary hypertension with an RVSP of 63 mmHg. 06/23/21 Patient's d-dimer was elevated 1.3. He underwent a VQ scan which was low probability for pulmonary embolism. He underwent a barium swallow yesterday which revealed large amount of malik aspiration with thin liquids a moderate aspiration with honey thick liquids, there is severe piriform sinus residuals which places the patient at risk. Pt seen and examined laying flat resting comfortably in bed in no acute distress. He continues to feel weak. He has no complaints of chest pain or shortness of breath. He is coughing and bringing up some sputum. He does complain of buttocks pain, requesting something for pain. He has had episodes of afib with RVR IV amiodarone was resumed and then converted back to sinus rhythm. He is currently maintaining sinus mechanism heart rate 90s-115. He is sometimes tachycardic, but maintaining sinus mechanims. He is maintained on antibiotics for suspected aspiration pneumonia. Blood pressure 134/76, heart rate 109, afebrile, maintaining oxygen saturations 98% on 4 L nasal cannula. He's currently maintained on IV amiodarone 0.5 mg/min, atorvastatin 80 mg nightly, Wellbutrin 10 mg 3 times a day, metoprolol titrate 25 mg 3 times a day. Laboratory data reviewed, WBC 6.1, hemoglobin 10, platelets 322, sodium 1:30, potassium 3.8, BUN 22, serum creatinine 1.4, magnesium 1.8, INR 4.3. Patient continues to be orthostatic. GENERAL: Well-appearing, well-nourished and in no acute distress. NECK: Supple without JVD or thyromegaly. LUNGS: Breath sounds clear to auscultation bilaterally. Respiration equal and unlabored. No wheezes, rales or rhonchi. HEART: Regular rate and rhythm without murmurs, rubs or gallops. S1 and S2 heard. EXTREMITIES: Normal range of motion, no edema. No clubbing or cyanosis. Peripheral pulses intact. ASSESSMENT Paroxysmal atrial fibrillation with rapid ventricular rate Orthostatic hypotension Fall secondary to orthostatic hypotension Pneumonia, likely aspiration History of CVA Hypertension Dyslipidemia Diabetes mellitus Peripheral vascular disease PLAN Surgery has been consulted for possible PEG tube placement. From a cardiology perspective patient is at moderate risk for surgery, however, at this time benefit outweighs the risks. Patient may proceed with surgery with no additional cardiac testing or procedures. Coumadin is currently being held for INR 4.3 Continue to check for orthostatic changes. Continue bilateral DEION hose. Continue to advise patient and nursing staff to sit on the edge of the bed for a few minutes prior to attempting to stand with assistance. Continue amiodarone infusion due to NPO status. Further recommendations to follow based on clinical course. Nurse Practitioner note has been reviewed, I agree with a documented findings and plan of care. Patient was seen and examined. Objective - Vital Signs Vital signs: Vital Signs Temp 98 F 06/23/21 13:38 Pulse 109 H 06/23/21 13:38 Resp 17 06/23/21 13:38 BP 134/76 06/23/21 13:38 Pulse Ox 98 06/23/21 13:38 Intake & Output 06/22/21 06/23/21 06/23/21 18:59 06:59 18:59 Intake Total 350 0 Output Total 1400 1080 Balance -1400 -730 0 Weight 80 kg Intake: Intake, IV Titration 350 Amount Amiodarone 450 mg In 250 Dextrose 5% in Water 250 ml @ 0.5 MG/MIN 16.667 mls/hr IV .Q15H [facility] Rx#: [id number] Piperacillin-Tazobactam 3 100 .375 gm In Sodium Chloride 0.9% 100 ml @ 25 mls/hr IVPB Q8HR [facility] Rx# :[id number] Oral 0 Output: Urine 1400 1080 Coude 700 Other: Voiding Method Indwelling Catheter Indwelling Catheter Indwelling Catheter # Voids 1 - Labs CBC & Chem 7: 06/23/21 09:04 06/23/21 09:04 Labs: Abnormal Lab Results - Last 24 Hours (Table) 06/22/21 06/22/21 06/22/21 Range/Units 09:29 16:35 20:17 RBC (4.30-5.90) m/uL Hgb (13.0-17.5) gm/dL Hct (39.0-53.0) % MCV (80.0-100.0) fL MCH (25.0-35.0) pg Lymphocytes # (1.0-4.8) k/uL Macrocytosis PT (9.0-12.0) sec INR (<1.2) Sodium (137-145) mmol/L Chloride (98-107) mmol/L BUN (9-20) mg/dL Creatinine (0.66-1.25) mg/dL Glucose (74-99) mg/dL POC Glucose (mg/dL) 182 H 130 H (75-99) mg/dL Total Protein (6.3-8.2) g/dL Albumin (3.5-5.0) g/dL Procalcitonin 0.74 H (0.02-0.09) ng/mL 06/23/21 06/23/21 06/23/21 Range/Units 06:11 09:04 09:04 RBC 2.68 L (4.30-5.90) m/uL Hgb 10.0 L (13.0-17.5) gm/dL Hct 30.3 L (39.0-53.0) % MCV 112.9 H (80.0-100.0) fL MCH 37.4 H (25.0-35.0) pg Lymphocytes # 0.7 L (1.0-4.8) k/uL Macrocytosis Marked A PT (9.0-12.0) sec INR (<1.2) Sodium 130 L (137-145) mmol/L Chloride 97 L (98-107) mmol/L BUN 22 H (9-20) mg/dL Creatinine 1.44 H (0.66-1.25) mg/dL Glucose 129 H (74-99) mg/dL POC Glucose (mg/dL) 128 H (75-99) mg/dL Total Protein 5.5 L (6.3-8.2) g/dL Albumin 2.7 L (3.5-5.0) g/dL Procalcitonin (0.02-0.09) ng/mL 06/23/21 06/23/21 Range/Units 09:04 12:51 RBC (4.30-5.90) m/uL Hgb (13.0-17.5) gm/dL Hct (39.0-53.0) % MCV (80.0-100.0) fL MCH (25.0-35.0) pg Lymphocytes # (1.0-4.8) k/uL Macrocytosis PT 41.1 H (9.0-12.0) sec INR 4.3 H (<1.2) Sodium (137-145) mmol/L Chloride (98-107) mmol/L BUN (9-20) mg/dL Creatinine (0.66-1.25) mg/dL Glucose (74-99) mg/dL POC Glucose (mg/dL) 149 H (75-99) mg/dL Total Protein (6.3-8.2) g/dL Albumin (3.5-5.0) g/dL Procalcitonin (0.02-0.09) ng/mL Microbiology - Last 24 Hours (Table) 06/20/21 22:11 Gram Stain - Final Sputum Sputum Culture - Final 06/21/21 17:49 Gram Stain - Final Sputum Sputum Culture - Final
[2021-06-23 16:56] LABS: Glucose,Whole Blood 128 mg/dL (75-99)
[2021-06-23] MEDS ORDERED: WARFARIN 0.5 MG TAB PO ONE (18:00)
[2021-06-23] MEDS: ATORVASTATIN 80 MG TAB PO SCH (19:57)
[2021-06-23 20:37] LABS: Glucose,Whole Blood 99 mg/dL (75-99)
[2021-06-24 06:22] LABS: Glucose,Whole Blood 130 mg/dL (75-99)
[2021-06-24] MEDS: MIDODRINE 5 MG TAB PO SCH ×3 (06:29→14:07)
[2021-06-24] MEDS: VENLAFAXINE HCL 75 MG TAB PO SCH ×2 (08:07→19:54)
[2021-06-24] MEDS: METOPROLOL TARTRATE 25 MG TAB PO SCH ×3 (08:07→19:54)
[2021-06-24] MEDS: PIOGLITAZONE 30 MG TAB PO SCH (08:07)
[2021-06-24] MEDS: FOLIC ACID 1 MG TAB PO SCH (08:07)
[2021-06-24] MEDS: CYANOCOBALAMIN 500 MCG TAB PO SCH (08:07)
[2021-06-24] MEDS: FAMOTIDINE 20 MG TAB PO SCH (08:07)
[2021-06-24] MEDS: IPRATROPIUM-ALBUTEROL 3 ML NEB INHALATION SCH ×4 (08:20→19:26)
[2021-06-24] MEDS: SYMBICORT 160-4.5 MCG INHALER INHALATION SCH ×2 (08:20→19:26)
[2021-06-24] MEDS: PIPERACILLIN-TAZOBACTAM 3.375 GM in SODIUM CHLORIDE 0.9% 100 ML IVPB SCH ×3 (08:25→23:51)
[2021-06-24] MEDS: AMIODARONE 450 MG in DEXTROSE 5% IN WATER 250 ML IV SCH ×6 (09:32→23:15)
--- NOTE | 2021-06-24 10:04 | PN ---
PROGRESS NOTE Patient is seen for followup for acute kidney injury. His renal function has improved, creatinine down to about 1.4 as of yesterday. The patient is currently a maintained on midodrine. He is not on any IV fluids or diuretics. PHYSICAL EXAMINATION: Blood pressure is 121/76, heart rate 109 per minute. Patient is afebrile. Examination of the heart S1, S2. Examination of the lungs, bilateral breath sounds are heard. Abdomen is soft, nontender. Examination of lower extremity no significant edema. [employer] exam grossly intact. LABS: From June 23 show sodium 130, potassium 3.8, chloride 97, BUN 22, creatinine 1.4, hemoglobin 10.0. ASSESSMENT: 1. Acute kidney injury, mostly prerenal status post IV fluids. Renal functions slowly improved as of yesterday. Labs are pending from today. 2. Chronic kidney disease stage 3A, with baseline creatinine 1.6-2 associated with solitary kidney, which is the right kidney and also history of obstructive uropathy. 3. Status post left nephrectomy. 4. Status post removal of left nephrostomy tube on 06/11/2021. 5. Hyperkalemia associated with acute kidney injury, use of ANTONIO inhibitors, now improved. 6. Hyponatremia associated with acute kidney injury, currently stable, maintained on fluid restriction. 7. Atrial fibrillation with RVR maintained on amiodarone. 8. Anemia of chronic disease with iron deficiency, currently status post IV iron. 9. Chronic diastolic congestive heart failure with severe pulmonary hypertension. PLAN: Continue off IV fluids. Maintain fluid restriction. Repeat labs today. Continue off ANTONIO inhibitors as well. Avoid nephrotoxic agents. MMODL / IJN: [id number] /
[2021-06-24 10:34] LABS: Calcium 8.7 mg/dL (8.4-10.2); Potassium 3.9 mmol/L (3.5-5.1)
[2021-06-24 10:37] LABS: Prothrombin Time 51.2 sec (9.0-12.0)
[2021-06-24 10:39] LABS: INR 5.3 (<1.2)
--- NOTE | 2021-06-24 11:32 | P.PN ---
Progress Note - Text Progress Note Date: 06/24/21 Patient remains stable. He will be scheduled for PEG tube placement on Saturday
[2021-06-24 12:16] LABS: Glucose,Whole Blood 143 mg/dL (75-99)
[2021-06-24] MEDS ORDERED: WARFARIN 0.5 MG TAB PO ONE ×2 (12:30→18:00)
--- NOTE | 2021-06-24 14:04 | P.PN ---
Subjective This is a pleasant 61 male past medical history significant for hypertension, dyslipidemia, diabetes mellitus, paroxysmal atrial fibrillation (on coumadin), chronic kidney disease, CVA 2013 and peripheral arterial disease. He follows my office with Dr. Gonzalez. We've her on consult for positive orthostatic blood pressures, possible syncope and atrial fibrillation. Patient presents emergency department after sustaining a fall, complaining of generalized weakness and dizziness, it was unclear if patient did lose consciousness. On admission pat ient was found to be hyponatremic, hypokalemic, his INRs have been therapeutic, patient appeared to be dehydrated. Also suspect the patient had aspiration pneumonia currently being treated with IV zosyn. Patient was started on amiodarone infusion and converted to sinus mechanism. On admission, Patient's initial EKG revealed sinus rhythm, heart rate 77, no significant ST or T-wave abnormalities. Patient then converted to atrial fibrillation with RVR HR 180s. He had 3 negative troponins. Echocardiogram revealed an EF of 5560 percent, mild tricuspid regurgitation, severe pulmonary hypertension with an RVSP of 63 mmHg. 06/23/21 Patient's d-dimer was elevated 1.3. He underwent a VQ scan which was low probability for pulmonary embolism. He underwent a barium swallow yesterday which revealed large amount of malik aspiration with thin liquids a moderate aspiration with honey thick liquids, there is severe piriform sinus residuals which places the patient at risk. Pt seen and examined laying flat resting comfortably in bed in no acute distress. He continues to feel weak. He has no complaints of chest pain or shortness of breath. He is coughing and bringing up some sputum. He does complain of buttocks pain, requesting something for pain. He has had episodes of afib with RVR IV amiodarone was resumed and then converted back to sinus rhythm. He is currently maintaining sinus mechanism heart rate 90s-115. He is sometimes tachycardic, but maintaining sinus mechanims. He is maintained on antibiotics for suspected aspiration pneumonia. Blood pressure 134/76, heart rate 109, afebrile, maintaining oxygen saturations 98% on 4 L nasal cannula. He's currently maintained on IV amiodarone 0.5 mg/min, atorvastatin 80 mg nightly, Wellbutrin 10 mg 3 times a day, metoprolol titrate 25 mg 3 times a day. Laboratory data reviewed, WBC 6.1, hemoglobin 10, platelets 322, sodium 1:30, potassium 3.8, BUN 22, serum creatinine 1.4, magnesium 1.8, INR 4.3. Patient continues to be orthostatic. 06/24 Patient seen and examined. Patient remains nothing by mouth. He denies any chest pain or pressure. No shortness breath. He admits to still feeling fatigued. He is scheduled for PEG tube placement on Saturday. Remains in sinus rhythm however sinus tachycardia with heart rates low 100s. GENERAL: Chronically ill, well-nourished and in no acute distress. NECK: Supple without JVD or thyromegaly. LUNGS: Breath sounds clear to auscultation bilaterally. Respiration equal and unlabored. No wheezes, rales or rhonchi. HEART: Regular rate and rhythm without murmurs, rubs or gallops. S1 and S2 heard. EXTREMITIES: Normal range of motion, no edema. No clubbing or cyanosis. Peripheral pulses intact. ASSESSMENT Paroxysmal atrial fibrillation with rapid ventricular rate Orthostatic hypotension Fall secondary to orthostatic hypotension Pneumonia, likely aspiration History of CVA Hypertension Dyslipidemia Diabetes mellitus Peripheral vascular disease PLAN From a cardiology perspective patient is at moderate risk for surgery, however, at this time benefit outweighs the risks. Patient may proceed with surgery with no additional cardiac testing or procedures. Coumadin is currently being held for INR 4.3 Continue amiodarone infusion due to NPO status. Sinus tachycardia likely reactive, we will give gentle IV fluids as he is nothing by mouth. Further recommendations to follow based on clinical course. Objective - Vital Signs Vital signs: Vital Signs Temp 98 F 06/24/21 10:03 Pulse 106 H 06/24/21 12:36 Resp 16 06/24/21 10:07 BP 129/71 06/24/21 10:03 Pulse Ox 93 L 06/24/21 10:03 Intake & Output 06/23/21 06/24/21 06/24/21 18:59 06:59 18:59 Intake Total 0 Output Total 400 350 Balance 0 -400 -350 Weight 68 kg Intake: Oral 0 Output: Urine 400 350 Other: Voiding Method Indwelling Catheter Indwelling Catheter Indwelling Catheter - Labs CBC & Chem 7: 06/23/21 09:04 06/24/21 09:32 Labs: Abnormal Lab Results - Last 24 Hours (Table) 06/23/21 06/24/21 06/24/21 Range/Units 16:55 06:21 09:32 PT 51.2 H (9.0-12.0) sec INR 5.3 H* (<1.2) Sodium (137-145) mmol/L BUN (9-20) mg/dL Creatinine (0.66-1.25) mg/dL Glucose (74-99) mg/dL POC Glucose (mg/dL) 128 H 130 H (75-99) mg/dL 06/24/21 06/24/21 Range/Units 09:32 12:05 PT (9.0-12.0) sec INR (<1.2) Sodium 133 L (137-145) mmol/L BUN 21 H (9-20) mg/dL Creatinine 1.58 H (0.66-1.25) mg/dL Glucose 139 H (74-99) mg/dL POC Glucose (mg/dL) 143 H (75-99) mg/dL Microbiology - Last 24 Hours (Table) 06/20/21 22:11 Gram Stain - Final Sputum Sputum Culture - Final 06/21/21 17:49 Gram Stain - Final Sputum Sputum Culture - Final
[2021-06-24] MEDS ORDERED: PHYTONADIONE ORAL 5 MG/5 ML ORAL.SYRG PO STA (15:09)
[2021-06-24] MEDS: SODIUM CHLORIDE 0.9% 1,000 ML IV SCH (15:22)
[2021-06-24] MEDS ORDERED: PHYTONADIONE 2.5 MG in SODIUM CHLORIDE 0.9% 50 ML IVPB ONE (15:30)
--- NOTE | 2021-06-24 15:38 | P.PN ---
Subjective Progress Note Date: 06/24/21 Everett Juárez, is a 61-year-old male patient of Dr. Jama, who presented to [facility] emergency room after sustaining a fall, and complaining of generalized weakness and dizziness, patient is not clear whether he passed out or had any loss of consciousness. Patient was also complaining of chest pain in the EMS, EKG was within normal limits and troponin level was less than 0.01 He was evaluated in the emergency room vital examination on presentation revealed a temperature of 97.4 pulse 71 respirations 16 blood pressure 87/50 pulse ox 94% on room air Laboratory data revealed a white blood count of 8.6 hemoglobin 12.0 platelet count 338 INR 1.2 sodium 128 potassium 6.2 chloride 99 CO2 22 BUN 17 creatinine 2.01 lactic acid on presentation 2.1 urine analysis did not reveal evidence of significant infection. Testing in the emergency room revealed EKG revealed normal sinus rhythm normal EKG chest x-ray done in the emergency room revealed no acute lung disease there was prominent pulmonary leon that could be related to adenopathy. 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 Patient was admitted to medical floor for further evaluation and treatment. Past medical history is significant for history of hypertension, history of hyperlipidemia, history of chronic kidney disease, history of [id number] diabetes mellitus, history of previous stroke, history of paroxysmal atrial fibrillation maintained on Coumadin, history of COPD, patient still smoke a few cigarettes per day, he denies alcohol use. On review of systems Patient is alert and responsive in no distress, he denies any complaints there is no fever or chills no headache or dizziness no chest pain no shortness of breath no palpitation no cough no nausea or vomiting no abdominal pain no diarrhea no blood in the stools no burning with urination no frequency or urgency and no hematuria, there is no weakness or numbness in any of the extremities no change in vision speech, gait was not tested. On 06/16/2021 patient was seen and examined on the telemetry floor he is alert and oriented 3 in no apparent distress he is still complaining of dizziness and weakness otherwise he denies any complaints there is no fever or chills no headache no chest pain no shortness of breath no cough no palpitation no nausea or vomiting no abdominal pain no diarrhea no blood in the stools no burning with urination no frequency or urgency and no hematuria there is no weakness or numbness in any of the extremities no change in vision or in speech On 06/17/2021 Patient was seen and examined on the medical floor, he is alert and oriented x 3 in no distress, he denies any complaints there is no fever or chills no headache or dizziness no chest pain no shortness of breath no palpitation no cough no nausea or vomiting no abdominal pain no diarrhea no blood in the stools no burning with urination no frequency or urgency and no hematuria, there is no weakness or numbness in any of the extremities no change in vision or speech, gait was not tested at this time, patient had significant orthostatic hypotension, this was discussed with cardiology, and dose of Catapres was adjusted down to 0.1 mg by mouth twice a day, patient will be reevaluated by cardiology in a.m. On 06/18/2021 patient was seen and examined on the medical floor, he is alert and oriented 3 in no distress, he is complaining of weakness otherwise he denies any specific complaints, there is no fever or chills no headache or dizziness no chest pain no shortness of breath no cough no nausea or vomiting no abdominal pain no diarrhea no blood in the stools no burning with urination no frequency or urgency no hematuria, there is no weakness or numbness in any of the extremities there is no change in vision speech or gait. Repeat orthostatic hypotension reveals significant drop while standing, cardiology are following, yesterday dose of Catapres was decreased to 0.1 by mouth twice daily, awaiting further recommendation from cardiology On 06/19/2021 patient was seen and examined on the medical floor, he is alert and oriented 3 in no distress, he is complaining of weakness otherwise he denies any specific complaints, he is still having significant orthostatic hypotension was significant drop in blood pressure when patient stands up. the re is no fever or chills no headache or dizziness no chest pain no shortness of breath no cough no nausea or vomiting no abdominal pain no diarrhea no blood in the stools no burning with urination no frequency or urgency no hematuria, there is no weakness or numbness in any of the extremities there is no change in vision speech or gait. Cardiology are following at this time Catapres is being discontinued and midodrine was added to medication regimen will continue to monitor closely. On 06/20/2021 patient was seen and examined on the medical floor he is alert and oriented 3 in no apparent distress, this morning he had an episode of palpitation and severe shortness of breath, EKG revealed SVT versus A. fib with RVR with a heart rate of 186 patient was transferred to [facility]. he was seen by [facility] rdiology and was started on IV amiodarone, chest x-ray was done today and was suspicious for right sided infiltrate suggestive of pneumonia patient is stating that he is having some cough with yellow sputum production WBC is low, patient was started on IV antibiotic Zosyn, and pulmonary consultation was requested. Patient denies any fever or chills no headache or dizziness no chest pain no nausea or vomiting no abdominal pain no diarrhea and no urinary symptoms. On 06/21/2021 patient was seen and examined on the medical floor he is complaining of cough otherwise he denies any complaints at this time there is no fever or chills no headache or dizziness no chest pain no shortness of breath no nausea or vomiting no abdominal pain no diarrhea no blood in the stools no burning with urination no frequency or urgency and no hematuria, yesterday patient had an episode of A. fib with RVR, he was started on IV amiodarone by cardiology and was transferred to telemetry floor, also chest x-ray revealed evidence of right basilar infiltrate, he was started on IV Zosyn pulmonary consultation was requested, sputum culture was ordered On 06/22/2021 Patient was seen and examined on the medical floor, he is alert and oriented x 3 in no distress, he is complaining of cough otherwise he denies any complaints there is no fever or chills no headache or dizziness no chest pain no shortness of breath no palpitation no cough no nausea or vomiting no abdominal pain no diarrhea no blood in the stools no burning with urination no frequency or urgency and no hematuria, there is no weakness or numbness in any of the extremities no change in vision speech or gait. Patient failed swallow evaluation with all food consistency today, he is kept nothing by mouth consultation for Dr. Zacarias for PEG tube placement was initiated. On 06/23/2021 patient is alert and oriented 3. Patient is resting comfortably in bed. Patient currently maintained on amiodarone drip per cardiology. Patient also maintained on IV Zosyn for aspiration pneumonia. Surgical services have been consulted for PEG tube placement. At this time pulmonary, cardiology, nephrology and surgical services following. Repeat labs have been ordered. Patient is still complaining of chest congestion and cough. Patient denies chest pain. Patient denies nausea vomiting or diarrhea. Patient denies any urinary burning or frequency. On 06/24/2021 Patient was seen and examined on the medical floor, he is alert and oriented x 3 in no distress, he denies any complaints there is no fever or chills no headache or dizziness no chest pain no shortness of breath no palpitation no cough no nausea or vomiting no abdominal pain no diarrhea no blood in the stools no burning with urination no frequency or urgency and no hematuria, there is no weakness or numbness in any of the extremities no change in vision speech, today INR is 5.3 Coumadin is on hold Will give 1 dose of vitamin K 2 mg IV patient is nothing by mouth , he is awaiting PEG tube placement Objective - Vital Signs Vital signs: Vital Signs Temp 98 F 06/24/21 10:03 Pulse 104 H 06/24/21 10:07 Resp 16 06/24/21 10:07 BP 129/71 06/24/21 10:03 Pulse Ox 93 L 06/24/21 10:03 Intake & Output 06/23/21 06/24/21 06/24/21 18:59 06:59 18:59 Intake Total 0 Output Total 400 Balance 0 -400 Weight 68 kg Intake: Oral 0 Output: Urine 400 Other: Voiding Method Indwelling Catheter Indwelling Catheter Indwelling Catheter - Exam In general patient is alert and responsive in no distress HEENT head normocephalic and atraumatic Neck is supple no JVD no goiter no lymphadenopathy no carotid bruit Chest examination is clear to auscultation no crackles no wheezing Cardiac exam reveals regular heart sounds S1 and S2 no gallops no murmurs Abdomen is soft nontender no organomegaly with normal bowel sounds Extremity exam reveals no edema no cyanosis or clubbing Neurological examination reveals no gross focal deficits - Labs CBC & Chem 7: 06/23/21 09:04 06/24/21 09:32 Labs: Abnormal Lab Results - Last 24 Hours (Table) 06/23/21 06/23/21 06/24/21 Range/Units 12:51 16:55 06:21 POC Glucose (mg/dL) 149 H 128 H 130 H (75-99) mg/dL Microbiology - Last 24 Hours (Table) 06/20/21 22:11 Gram Stain - Final Sputum Sputum Culture - Final 06/21/21 17:49 Gram Stain - Final Sputum Sputum Culture - Final Assessment and Plan Plan: Fall at home with unclear history whether patient had a syncopal episode or loss of consciousness Episode of chest pain while in the ambulance Atrial fibrillation with rapid ventricular response. Patient started on ami odarone drip per cardiology Underlying history of paroxysmal atrial fibrillation, maintained on Coumadin however her INR was subtherapeutic at 1.2 on presentation, today INR is therapeutic at 2.7 Evidence of dehydration with electrolyte imbalance with hyponatremia and hyperkalemia Underlying history of chronic kidney disease Underlying history of [id number] diabetes mellitus, no evidence of hypoglycemia Underlying history of hypertension Previous history of cerebellar stroke. Right basilar infiltrate suggestive of pneumonia, patient started on IV Zosyn, pulmonary consultation requested Dysphagia. Patient was evaluated by speech pathology modified barium swallow completed surgical service is consulted for possible PEG tube placement DVT prophylaxis Coumadin. GI prophylaxis Pepcid Pulmonary, cardiology, nephrology and surgical services following Patient maintained on IV Zosyn Patient maintained on IV amiodarone Repeat labs ordered PT OT services consulted Social work consulted for possible ECF placement
[2021-06-24] MEDS ORDERED: PHYTONADIONE 2 MG in SODIUM CHLORIDE 0.9% 50 ML IVPB ONE (16:00)
[2021-06-24 17:07] LABS: Glucose,Whole Blood 122 mg/dL (75-99)
[2021-06-24] MEDS: ATORVASTATIN 80 MG TAB PO SCH (19:54)
[2021-06-24 20:31] LABS: Glucose,Whole Blood 113 mg/dL (75-99)
[2021-06-25] MEDS ORDERED: DIGOXIN 250 MCG/ML 2 ML AMP IVP ONE ×2 (00:01→18:30)
[2021-06-25] MEDS ORDERED: SODIUM CHLORIDE 0.9% 500 ML 500 ML IV ONE (00:01)
[2021-06-25 06:09] LABS: Glucose,Whole Blood 144 mg/dL (75-99)
[2021-06-25] MEDS: MIDODRINE 5 MG TAB PO SCH ×3 (06:24→14:42)
[2021-06-25] MEDS: SODIUM CHLORIDE 0.9% 1,000 ML IV SCH ×3 (06:29→14:42)
[2021-06-25 06:31] LABS: Basophils % (A) 0 %; Eosinophils % (A) 0 %; HCT 32.5 % (39.0-53.0); HGB 10.1 gm/dL (13.0-17.5); Lymphocytes # (A) 0.8 k/uL (1.0-4.8); Lymphocytes % (A) 9 %; MCHC 31.2 g/dL (31.0-37.0); MCV 115.3 fL (80.0-100.0); Mean Platelet Volume 7.7; Monocytes # (A) 0.6 k/uL (0-1.0); Monocytes % (A) 7 %; Neutrophils # (A) 6.8 k/uL (1.3-7.7); Neutrophils % (A) 81 %; Platelet Count 360 k/uL (150-450); RBC 2.82 m/uL (4.30-5.90); RDW 15.6 % (11.5-15.5); WBC 8.4 k/uL (3.8-10.6)
[2021-06-25 06:58] LABS: Macrocytosis Marked
[2021-06-25 07:01] LABS: Albumin 2.7 g/dL (3.5-5.0); Calcium 8.9 mg/dL (8.4-10.2); Potassium 4.3 mmol/L (3.5-5.1); Total Bilirubin 1.1 mg/dL (0.2-1.3); Total Protein 5.7 g/dL (6.3-8.2)
[2021-06-25 07:13] LABS: INR 1.2 (<1.2); Prothrombin Time 12.8 sec (9.0-12.0)
[2021-06-25] MEDS: IPRATROPIUM-ALBUTEROL 3 ML NEB INHALATION SCH ×4 (07:41→19:32)
[2021-06-25] MEDS: SYMBICORT 160-4.5 MCG INHALER INHALATION SCH ×2 (07:42→19:32)
[2021-06-25] MEDS: CYANOCOBALAMIN 500 MCG TAB PO SCH (08:23)
[2021-06-25] MEDS: FOLIC ACID 1 MG TAB PO SCH (08:23)
[2021-06-25] MEDS: METOPROLOL TARTRATE 25 MG TAB PO SCH ×3 (08:23→19:47)
[2021-06-25] MEDS: FAMOTIDINE 20 MG TAB PO SCH (08:23)
[2021-06-25] MEDS: AMIODARONE 450 MG in DEXTROSE 5% IN WATER 250 ML IV SCH ×6 (08:24→18:33)
[2021-06-25] MEDS: VENLAFAXINE HCL 75 MG TAB PO SCH ×2 (08:24→19:46)
[2021-06-25] MEDS: PIPERACILLIN-TAZOBACTAM 3.375 GM in SODIUM CHLORIDE 0.9% 100 ML IVPB SCH ×2 (08:25→14:42)
--- NOTE | 2021-06-25 10:44 | PN ---
PROGRESS NOTE Patient is seen for followup for acute kidney injury on top of chronic kidney disease. Renal function has been at baseline and fairly stable. The patient is currently maintained on amiodarone drip. He is also maintained on midodrine for hypotension along with IV fluids with saline at 75 mL an hour. He has had good urine output. He has an indwelling Lara catheter, 24 hour output documented at about 950 mL. PHYSICAL EXAMINATION: Patient is comfortable, awake, alert, oriented x3, not in any acute distress. Blood pressure 128/76, heart rate elevated at 132 per minute, patient is afebrile. Examination of the heart S1, S2. Examination of the lungs, bilateral breath sounds are heard. Abdomen is soft, nontender. Examination of lower extremities shows no significant edema. 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 LAB: Show sodium 134, potassium 4.3, chloride 103, BUN 24, creatinine 1.54, hemoglobin 10.1 g/dL. ASSESSMENT: 1. Acute kidney injury, prerenal, status post IV fluids. Renal function currently stable, creatinine staying at 1.5. 2. Chronic kidney disease 3A with baseline creatinine 1.6-2 associated with solitary kidney, which is his right kidney and also a history of obstructive uropathy previously. 3. Status post left nephrectomy. 4. Status post removal of left nephrostomy tube on 06/11/2021. 5. Hyperkalemia associated with acute kidney injury, use of ANTONIO inhibitors, now improved. 6. Hyponatremia currently stable. Currently patient is maintained on saline which I will discontinue. 7. Atrial fibrillation with RVR maintained on amiodarone. 8. Anemia of chronic disease and iron deficiency status post IV iron. PLAN: If the patient good oral intake I will decrease the saline and repeat labs in a.m. Monitor serum sodium levels. MMODL / IJN: [id number] /
--- NOTE | 2021-06-25 10:55 | P.PN ---
Subjective Progress Note Date: 06/25/21 Everett Juárez, is a 61-year-old male patient of Dr. Jama, who presented to [facility] emergency room after sustaining a fall, and complaining of generalized weakness and dizziness, patient is not clear whether he passed out or had any loss of consciousness. Patient was also complaining of chest pain in the EMS, EKG was within normal limits and troponin level was less than 0.01 He was evaluated in the emergency room vital examination on presentation revealed a temperature of 97.4 pulse 71 respirations 16 blood pressure 87/50 pulse ox 94% on room air Laboratory data revealed a white blood count of 8.6 hemoglobin 12.0 platelet count 338 INR 1.2 sodium 128 potassium 6.2 chloride 99 CO2 22 BUN 17 creatinine 2.01 lactic acid on presentation 2.1 urine analysis did not reveal evidence of significant infection. Testing in the emergency room revealed EKG revealed normal sinus rhythm normal EKG chest x-ray done in the emergency room revealed no acute lung disease there was prominent pulmonary leon that could be related to adenopathy. 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 Patient was admitted to medical floor for further evaluation and treatment. Past medical history is significant for history of hypertension, history of hyperlipidemia, history of chronic kidney disease, history of ejh-ksllgir-qqepowszm diabetes mellitus, history of previous stroke, history of paroxysmal atrial fibrillation maintained on Coumadin, history of COPD, patient still smoke a few cigarettes per day, he denies alcohol use. On review of systems Patient is alert and responsive in no distress, he denies any complaints there is no fever or chills no headache or dizziness no chest pain no shortness of breath no palpitation no cough no nausea or vomiting no abdominal pain no diarrhea no blood in the stools no burning with urination no frequency or urgency and no hematuria, there is no weakness or numbness in any of the extremities no change in vision speech, gait was not tested. On 06/16/2021 patient was seen and examined on the telemetry floor he is alert and oriented 3 in no apparent distress he is still complaining of dizziness and weakness otherwise he denies any complaints there is no fever or chills no headache no chest pain no shortness of breath no cough no palpitation no nausea or vomiting no abdominal pain no diarrhea no blood in the stools no burning with urination no frequency or urgency and no hematuria there is no weakness or numbness in any of the extremities no change in vision or in speech On 06/17/2021 Patient was seen and examined on the medical floor, he is alert and oriented x 3 in no distress, he denies any complaints there is no fever or chills no headache or dizziness no chest pain no shortness of breath no palpitation no cough no nausea or vomiting no abdominal pain no diarrhea no blood in the stools no burning with urination no frequency or urgency and no hematuria, there is no weakness or numbness in any of the extremities no change in vision or speech, gait was not tested at this time, patient had significant orthostatic hypotension, this was discussed with cardiology, and dose of Catapres was adjusted down to 0.1 mg by mouth twice a day, patient will be reevaluated by cardiology in a.m. On 06/18/2021 patient was seen and examined on the medical floor, he is alert and oriented 3 in no distress, he is complaining of weakness otherwise he denies any specific complaints, there is no fever or chills no headache or dizziness no chest pain no shortness of breath no cough no nausea or vomiting no abdominal pain no diarrhea no blood in the stools no burning with urination no frequency or urgency no hematuria, there is no weakness or numbness in any of the extremities there is no change in vision speech or gait. Repeat orthostatic hypotension reveals significant drop while standing, cardiology are following, yesterday dose of Catapres was decreased to 0.1 by mouth twice daily, awaiting further recommendation from cardiology On 06/19/2021 patient was seen and examined on the medical floor, he is alert and oriented 3 in no distress, he is complaining of weakness otherwise he denies any specific complaints, he is still having significant orthostatic hypotension was significant drop in blood pressure when patient stands up. the re is no fever or chills no headache or dizziness no chest pain no shortness of breath no cough no nausea or vomiting no abdominal pain no diarrhea no blood in the stools no burning with urination no frequency or urgency no hematuria, there is no weakness or numbness in any of the extremities there is no change in vision speech or gait. Cardiology are following at this time Catapres is being discontinued and midodrine was added to medication regimen will continue to monitor closely. On 06/20/2021 patient was seen and examined on the medical floor he is alert and oriented 3 in no apparent distress, this morning he had an episode of palpitation and severe shortness of breath, EKG revealed SVT versus A. fib with RVR with a heart rate of 186 patient was transferred to [facility]. he was seen by ca rdiology and was started on IV amiodarone, chest x-ray was done today and was suspicious for right sided infiltrate suggestive of pneumonia patient is stating that he is having some cough with yellow sputum production WBC is low, patient was started on IV antibiotic Zosyn, and pulmonary consultation was requested. Patient denies any fever or chills no headache or dizziness no chest pain no nausea or vomiting no abdominal pain no diarrhea and no urinary symptoms. On 06/21/2021 patient was seen and examined on the medical floor he is complaining of cough otherwise he denies any complaints at this time there is no fever or chills no headache or dizziness no chest pain no shortness of breath no nausea or vomiting no abdominal pain no diarrhea no blood in the stools no burning with urination no frequency or urgency and no hematuria, yesterday patient had an episode of A. fib with RVR, he was started on IV amiodarone by cardiology and was transferred to telemetry floor, also chest x-ray revealed evidence of right basilar infiltrate, he was started on IV Zosyn pulmonary consultation was requested, sputum culture was ordered On 06/22/2021 Patient was seen and examined on the medical floor, he is alert and oriented x 3 in no distress, he is complaining of cough otherwise he denies any complaints there is no fever or chills no headache or dizziness no chest pain no shortness of breath no palpitation no cough no nausea or vomiting no abdominal pain no diarrhea no blood in the stools no burning with urination no frequency or urgency and no hematuria, there is no weakness or numbness in any of the extremities no change in vision speech or gait. Patient failed swallow evaluation with all food consistency today, he is kept nothing by mouth consultation for Dr. Zacarias for PEG tube placement was initiated. On 06/23/2021 patient is alert and oriented 3. Patient is resting comfortably in bed. Patient currently maintained on amiodarone drip per cardiology. Patient also maintained on IV Zosyn for aspiration pneumonia. Surgical services have been consulted for PEG tube placement. At this time pulmonary, cardiology, nephrology and surgical services following. Repeat labs have been ordered. Patient is still complaining of chest congestion and cough. Patient denies chest pain. Patient denies nausea vomiting or diarrhea. Patient denies any urinary burning or frequency. On 06/24/2021 Patient was seen and examined on the medical floor, he is alert and oriented x 3 in no distress, he denies any complaints there is no fever or chills no headache or dizziness no chest pain no shortness of breath no palpitation no cough no nausea or vomiting no abdominal pain no diarrhea no blood in the stools no burning with urination no frequency or urgency and no hematuria, there is no weakness or numbness in any of the extremities no change in vision speech, today INR is 5.3 Coumadin is on hold Will give 1 dose of vitamin K 2 mg IV patient is nothing by mouth , he is awaiting PEG tube placement On 06/24/2021 patient is alert and oriented 3 INR 1.2. Patient maintained on IV amiodarone. Tentative plans for PEG tube placement tomorrow per surgical services. . At this time patient remains with productive cough. Patient denies chest pain. Patient denies nausea vomiting or diarrhea. Patient denies any urinary burning or frequency Objective - Vital Signs Vital signs: Vital Signs Temp 98 F 06/25/21 07:41 Pulse 132 H 06/25/21 07:57 Resp 16 06/25/21 07:41 BP 128/76 06/25/21 07:41 Pulse Ox 95 06/25/21 07:45 Intake & Output 06/24/21 06/25/21 06/25/21 18:59 06:59 18:59 Output Total 350 600 Balance -350 -600 Weight 67 kg Output: Urine 350 600 Other: Voiding Method Indwelling Catheter Indwelling Catheter Indwelling Catheter - Exam In general patient is alert and responsive in no distress HEENT head normocephalic and atraumatic Neck is supple no JVD no goiter no lymphadenopathy no carotid bruit Chest examination is clear to auscultation no crackles no wheezing Cardiac exam reveals regular heart sounds S1 and S2 no gallops no murmurs Abdomen is soft nontender no organomegaly with normal bowel sounds Extremity exam reveals no edema no cyanosis or clubbing Neurological examination reveals no gross focal deficits - Labs CBC & Chem 7: 06/25/21 06:04 06/25/21 06:04 Labs: Abnormal Lab Results - Last 24 Hours (Table) 06/24/21 06/24/21 06/24/21 Range/Units 12:05 16:55 20:29 RBC (4.30-5.90) m/uL Hgb (13.0-17.5) gm/dL Hct (39.0-53.0) % MCV (80.0-100.0) fL MCH (25.0-35.0) pg RDW (11.5-15.5) % Lymphocytes # (1.0-4.8) k/uL Macrocytosis PT (9.0-12.0) sec INR (<1.2) Sodium (137-145) mmol/L BUN (9-20) mg/dL Creatinine (0.66-1.25) mg/dL Glucose (74-99) mg/dL POC Glucose (mg/dL) 143 H 122 H 113 H (75-99) mg/dL Total Protein (6.3-8.2) g/dL Albumin (3.5-5.0) g/dL 06/25/21 06/25/21 06/25/21 Range/Units 06:04 06:04 06:04 RBC 2.82 L (4.30-5.90) m/uL Hgb 10.1 L (13.0-17.5) gm/dL Hct 32.5 L (39.0-53.0) % MCV 115.3 H (80.0-100.0) fL MCH 36.0 H (25.0-35.0) pg RDW 15.6 H (11.5-15.5) % Lymphocytes # 0.8 L (1.0-4.8) k/uL Macrocytosis Marked A PT 12.8 H (9.0-12.0) sec INR 1.2 H (<1.2) Sodium 134 L (137-145) mmol/L BUN 24 H (9-20) mg/dL Creatinine 1.54 H (0.66-1.25) mg/dL Glucose 141 H (74-99) mg/dL POC Glucose (mg/dL) (75-99) mg/dL Total Protein 5.7 L (6.3-8.2) g/dL Albumin 2.7 L (3.5-5.0) g/dL 06/25/21 Range/Units 06:07 RBC (4.30-5.90) m/uL Hgb (13.0-17.5) gm/dL Hct (39.0-53.0) % MCV (80.0-100.0) fL MCH (25.0-35.0) pg RDW (11.5-15.5) % Lymphocytes # (1.0-4.8) k/uL Macrocytosis PT (9.0-12.0) sec INR (<1.2) Sodium (137-145) mmol/L BUN (9-20) mg/dL Creatinine (0.66-1.25) mg/dL Glucose (74-99) mg/dL POC Glucose (mg/dL) 144 H (75-99) mg/dL Total Protein (6.3-8.2) g/dL Albumin (3.5-5.0) g/dL Assessment and Plan Plan: Fall at home with unclear history whether patient had a syncopal episode or loss of consciousness Episode of chest pain while in the ambulance Atrial fibrillation with rapid ventricular response. Patient started on amiodarone drip per cardiology Underlying history of paroxysmal atrial fibrillation, maintained on Coumadin however her INR was subtherapeutic at 1.2 on presentation, today INR is therapeutic at 2.7 Evidence of dehydration with electrolyte imbalance with hyponatremia and hyperkalemia Underlying history of chronic kidney disease Underlying history of feh-[id number] diabetes mellitus, no evidence of hypoglycemia Underlying history of hypertension Previous history of cerebellar stroke. Right basilar infiltrate suggestive of pneumonia, patient started on IV Zosyn, pulmonary consultation requested Dysphagia. Patient was evaluated by speech pathology modified barium swallow completed surgical service is consulted for possible PEG tube placement Supatherapeutic INR. Vitamin K given repeat INR 1.2. Coumadin on hold for possible PEG tube placement DVT prophylaxis Coumadin. GI prophylaxis Pepcid Pulmonary, cardiology, nephrology and surgical services following Patient maintained on IV Zosyn Patient maintained on IV amiodarone Repeat labs ordered PT OT services consulted Social work consulted for possible ECF placement
[2021-06-25 11:52] LABS: Glucose,Whole Blood 141 mg/dL (75-99)
--- NOTE | 2021-06-25 11:52 | P.PN ---
Progress Note - Text Progress Note Date: 06/25/21 Patient been stable. Scheduled for PEG tube tomorrow.
[2021-06-25 13:18] LABS: Glucose,Whole Blood 167 mg/dL (75-99)
[2021-06-25] MEDS ORDERED: SODIUM CHLORIDE 0.9% 1,000 ML IV ONE (13:45)
[2021-06-25 17:07] LABS: Glucose,Whole Blood 154 mg/dL (75-99)
--- NOTE | 2021-06-25 18:14 | P.PN ---
Subjective This is a pleasant 61 male past medical history significant for hypertension, dyslipidemia, diabetes mellitus, paroxysmal atrial fibrillation (on coumadin), chronic kidney disease, CVA 2013 and peripheral arterial disease. He follows my office with Dr. Gonzalez. We've her on consult for positive orthostatic blood pressures, possible syncope and atrial fibrillation. Patient presents emergency department after sustaining a fall, complaining of generalized weakness and dizziness, it was unclear if patient did lose consciousness. On admission pat ient was found to be hyponatremic, hypokalemic, his INRs have been therapeutic, patient appeared to be dehydrated. Also suspect the patient had aspiration pneumonia currently being treated with IV zosyn. Patient was started on amiodarone infusion and converted to sinus mechanism. On admission, Patient's initial EKG revealed sinus rhythm, heart rate 77, no significant ST or T-wave abnormalities. Patient then converted to atrial fibrillation with RVR HR 180s. He had 3 negative troponins. Echocardiogram revealed an EF of 5560 percent, mild tricuspid regurgitation, severe pulmonary hypertension with an RVSP of 63 mmHg. 06/23/21 Patient's d-dimer was elevated 1.3. He underwent a VQ scan which was low probability for pulmonary embolism. He underwent a barium swallow yesterday which revealed large amount of malik aspiration with thin liquids a moderate aspiration with honey thick liquids, there is severe piriform sinus residuals which places the patient at risk. Pt seen and examined laying flat resting comfortably in bed in no acute distress. He continues to feel weak. He has no complaints of chest pain or shortness of breath. He is coughing and bringing up some sputum. He does complain of buttocks pain, requesting something for pain. He has had episodes of afib with RVR IV amiodarone was resumed and then converted back to sinus rhythm. He is currently maintaining sinus mechanism heart rate 90s-115. He is sometimes tachycardic, but maintaining sinus mechanims. He is maintained on antibiotics for suspected aspiration pneumonia. Blood pressure 134/76, heart rate 109, afebrile, maintaining oxygen saturations 98% on 4 L nasal cannula. He's currently maintained on IV amiodarone 0.5 mg/min, atorvastatin 80 mg nightly, Wellbutrin 10 mg 3 times a day, metoprolol titrate 25 mg 3 times a day. Laboratory data reviewed, WBC 6.1, hemoglobin 10, platelets 322, sodium 1:30, potassium 3.8, BUN 22, serum creatinine 1.4, magnesium 1.8, INR 4.3. Patient continues to be orthostatic. 06/24 Patient seen and examined. Patient remains nothing by mouth. He denies any chest pain or pressure. No shortness breath. He admits to still feeling fatigued. He is scheduled for PEG tube placement on Saturday. Remains in sinus rhythm however sinus tachycardia with heart rates low 100s. 06/25 Patient seen and examined. Patient denies any chest pain or pressure. Denies any shortness breath. He has been receiving IV fluids as he has been nothing by mouth. He was continued be tachycardic and therefore IV digoxin 250 mg was given yesterday 1. He was also given vitamin K with improvement in INR. She is scheduled for PEG tube placement tomorrow. GENERAL: Chronically ill, well-nourished and in no acute distress. NECK: Supple without JVD or thyromegaly. LUNGS: Breath sounds clear to auscultation bilaterally. Respiration equal and unlabored. No wheezes, rales or rhonchi. HEART: Regular rate and rhythm without murmurs, rubs or gallops. S1 and S2 heard. EXTREMITIES: Normal range of motion, no edema. No clubbing or cyanosis. Peripheral pulses intact. ASSESSMENT Paroxysmal atrial fibrillation with rapid ventricular rate Orthostatic hypotension Fall secondary to orthostatic hypotension Pneumonia, likely aspiration History of CVA Hypertension Dyslipidemia Diabetes mellitus Peripheral vascular disease PLAN From a cardiology perspective patient is at moderate risk for surgery, however, at this time benefit outweighs the risks. Patient may proceed with surgery with no additional cardiac testing or procedures. Status post vitamin K with a improvement in INR Continue amiodarone infusion due to NPO status. We will increase fluids somewhat as his urine appears dark and appears dry and exam. We will also add a second dose of digoxin as he is still nothing by sweetie th. Monitor digoxin given CKD. Objective - Vital Signs Vital signs: Vital Signs Temp 97.8 F 06/25/21 13:18 Pulse 110 H 06/25/21 15:31 Resp 15 06/25/21 13:18 BP 105/68 06/25/21 13:26 Pulse Ox 96 06/25/21 13:18 Intake & Output 06/24/21 06/25/21 06/25/21 18:59 06:59 18:59 Intake Total 0 Output Total 350 600 Balance -350 -600 0 Weight 67 kg Intake: Oral 0 Output: Urine 350 600 Other: Voiding Method Indwelling Catheter Indwelling Catheter Indwelling Catheter - Labs CBC & Chem 7: 06/25/21 06:04 06/25/21 06:04 Labs: Abnormal Lab Results - Last 24 Hours (Table) 06/24/21 06/25/21 06/25/21 Range/Units 20:29 06:04 06:04 RBC 2.82 L (4.30-5.90) m/uL Hgb 10.1 L (13.0-17.5) gm/dL Hct 32.5 L (39.0-53.0) % MCV 115.3 H (80.0-100.0) fL MCH 36.0 H (25.0-35.0) pg RDW 15.6 H (11.5-15.5) % Lymphocytes # 0.8 L (1.0-4.8) k/uL Macrocytosis Marked A PT 12.8 H (9.0-12.0) sec INR 1.2 H (<1.2) Sodium (137-145) mmol/L BUN (9-20) mg/dL Creatinine (0.66-1.25) mg/dL Glucose (74-99) mg/dL POC Glucose (mg/dL) 113 H (75-99) mg/dL Total Protein (6.3-8.2) g/dL Albumin (3.5-5.0) g/dL 06/25/21 06/25/21 06/25/21 Range/Units 06:04 06:07 11:48 RBC (4.30-5.90) m/uL Hgb (13.0-17.5) gm/dL Hct (39.0-53.0) % MCV (80.0-100.0) fL MCH (25.0-35.0) pg RDW (11.5-15.5) % Lymphocytes # (1.0-4.8) k/uL Macrocytosis PT (9.0-12.0) sec INR (<1.2) Sodium 134 L (137-145) mmol/L BUN 24 H (9-20) mg/dL Creatinine 1.54 H (0.66-1.25) mg/dL Glucose 141 H (74-99) mg/dL POC Glucose (mg/dL) 144 H 141 H (75-99) mg/dL Total Protein 5.7 L (6.3-8.2) g/dL Albumin 2.7 L (3.5-5.0) g/dL 06/25/21 06/25/21 Range/Units 13:00 16:50 RBC (4.30-5.90) m/uL Hgb (13.0-17.5) gm/dL Hct (39.0-53.0) % MCV (80.0-100.0) fL MCH (25.0-35.0) pg RDW (11.5-15.5) % Lymphocytes # (1.0-4.8) k/uL Macrocytosis PT (9.0-12.0) sec INR (<1.2) Sodium (137-145) mmol/L BUN (9-20) mg/dL Creatinine (0.66-1.25) mg/dL Glucose (74-99) mg/dL POC Glucose (mg/dL) 167 H 154 H (75-99) mg/dL Total Protein (6.3-8.2) g/dL Albumin (3.5-5.0) g/dL
[2021-06-25] MEDS: ATORVASTATIN 80 MG TAB PO SCH (19:46)
[2021-06-25 20:27] LABS: Glucose,Whole Blood 128 mg/dL (75-99)
[2021-06-25] MEDS: HYDROmorphone 0.5 MG/0.5 ML SYRINGE IVP PRN (21:58)
[2021-06-26] MEDS: MIDODRINE 5 MG TAB PO SCH ×3 (00:57→15:03)
[2021-06-26] MEDS: PIPERACILLIN-TAZOBACTAM 3.375 GM in SODIUM CHLORIDE 0.9% 100 ML IVPB SCH ×3 (01:17→15:11)
[2021-06-26 05:36] LABS: Glucose,Whole Blood 105 mg/dL (75-99)
[2021-06-26] MEDS: HYDROmorphone 0.5 MG/0.5 ML SYRINGE IVP PRN (06:24)
[2021-06-26] MEDS: VENLAFAXINE HCL 75 MG TAB PO SCH ×2 (07:28→22:33)
[2021-06-26] MEDS: METOPROLOL TARTRATE 25 MG TAB PO SCH ×3 (07:28→22:32)
[2021-06-26] MEDS: FOLIC ACID 1 MG TAB PO SCH (07:28)
[2021-06-26] MEDS: FAMOTIDINE 20 MG TAB PO SCH (07:28)
[2021-06-26] MEDS: CYANOCOBALAMIN 500 MCG TAB PO SCH (07:28)
[2021-06-26] MEDS: SODIUM CHLORIDE 0.9% 1,000 ML IV SCH ×3 (07:31→14:51)
[2021-06-26 08:16] LABS: Anisocytosis Slight; Basophils % (A) 0 %; Eosinophils # (A) 0.1 k/uL (0-0.7); Eosinophils % (A) 1 %; HCT 29.4 % (39.0-53.0); HGB 9.7 gm/dL (13.0-17.5); Lymphocytes # (A) 0.7 k/uL (1.0-4.8); Lymphocytes % (A) 8 %; MCH 37.4 pg (25.0-35.0); MCHC 33.1 g/dL (31.0-37.0); Macrocytosis Marked; Mean Platelet Volume 7.8; Monocytes # (A) 0.5 k/uL (0-1.0); Monocytes % (A) 5 %; Neutrophils # (A) 8.3 k/uL (1.3-7.7); Neutrophils % (A) 84 %; Platelet Count 368 k/uL (150-450); RDW 16.1 % (11.5-15.5); WBC 9.8 k/uL (3.8-10.6)
[2021-06-26 08:23] LABS: INR 1.1 (<1.2); Prothrombin Time 11.9 sec (9.0-12.0)
[2021-06-26 08:27] LABS: Albumin 2.7 g/dL (3.5-5.0); Calcium 8.4 mg/dL (8.4-10.2); Potassium 4.2 mmol/L (3.5-5.1); Total Bilirubin 0.8 mg/dL (0.2-1.3); Total Protein 5.5 g/dL (6.3-8.2)
[2021-06-26] MEDS: SYMBICORT 160-4.5 MCG INHALER INHALATION SCH ×2 (08:33→19:45)
[2021-06-26] MEDS: IPRATROPIUM-ALBUTEROL 3 ML NEB INHALATION SCH ×4 (08:33→19:45)
[2021-06-26] MEDS: AMIODARONE 450 MG in DEXTROSE 5% IN WATER 250 ML IV SCH ×4 (09:26→14:51)
--- NOTE | 2021-06-26 11:41 | P.PN ---
Subjective Progress Note Date: 06/26/21 Principal diagnosis: Cardiac follow-up This is a 61-year-old gentleman with a past medical history significant for hypertension and dyslipidemia and diabetes and paroxysmal atrial fibrillation as well as chronic kidney disease and history of CVA. The patient was seen this morning. He remains asymptomatic from a cardiovascular standpoint of view. He is currently on amiodarone IV because he is nothing by mouth because he is going to undergo a PEG tube placement later on today. He denies any symptoms of chest pain or chest discomfort. Objective - Vital Signs Vital signs: Vital Signs Temp 98.2 F 06/26/21 07:50 Pulse 110 H 06/26/21 08:51 Resp 18 06/26/21 07:50 BP 103/64 06/26/21 07:50 Pulse Ox 95 06/26/21 08:41 Intake & Output 06/25/21 06/26/21 06/26/21 18:59 06:59 18:59 Intake Total 250 0 Output Total 300 Balance 250 -300 0 Weight 68.3 kg Intake: Intake, IV Titration 250 Amount Amiodarone 450 mg In 250 Dextrose 5% in Water 250 ml @ 0.5 MG/MIN 16.667 mls/hr IV .Q15H [facility] Rx#: [id number] Oral 0 0 Output: Urine 300 Other: Voiding Method Indwelling Catheter Indwelling Catheter Indwelling Catheter - Constitutional General appearance: Present: no acute distress - Respiratory Respiratory: bilateral: diminished - Cardiovascular Heart sounds: normal: S1, S2 - Labs CBC & Chem 7: 06/26/21 07:41 06/26/21 07:41 Labs: Abnormal Lab Results - Last 24 Hours (Table) 06/25/21 06/25/21 06/25/21 Range/Units 11:48 13:00 16:50 RBC (4.30-5.90) m/uL Hgb (13.0-17.5) gm/dL Hct (39.0-53.0) % MCV (80.0-100.0) fL MCH (25.0-35.0) pg RDW (11.5-15.5) % Neutrophils # (1.3-7.7) k/uL Lymphocytes # (1.0-4.8) k/uL Macrocytosis Sodium (137-145) mmol/L Carbon Dioxide (22-30) mmol/L BUN (9-20) mg/dL Creatinine (0.66-1.25) mg/dL Glucose (74-99) mg/dL POC Glucose (mg/dL) 141 H 167 H 154 H (75-99) mg/dL Total Protein (6.3-8.2) g/dL Albumin (3.5-5.0) g/dL 06/25/21 06/26/21 06/26/21 Range/Units 20:26 05:35 07:41 RBC 2.60 L (4.30-5.90) m/uL Hgb 9.7 L (13.0-17.5) gm/dL Hct 29.4 L (39.0-53.0) % MCV 113.0 H (80.0-100.0) fL MCH 37.4 H (25.0-35.0) pg RDW 16.1 H (11.5-15.5) % Neutrophils # 8.3 H (1.3-7.7) k/uL Lymphocytes # 0.7 L (1.0-4.8) k/uL Macrocytosis Marked A Sodium (137-145) mmol/L Carbon Dioxide (22-30) mmol/L BUN (9-20) mg/dL Creatinine (0.66-1.25) mg/dL Glucose (74-99) mg/dL POC Glucose (mg/dL) 128 H 105 H (75-99) mg/dL Total Protein (6.3-8.2) g/dL Albumin (3.5-5.0) g/dL 06/26/21 Range/Units 07:41 RBC (4.30-5.90) m/uL Hgb (13.0-17.5) gm/dL Hct (39.0-53.0) % MCV (80.0-100.0) fL MCH (25.0-35.0) pg RDW (11.5-15.5) % Neutrophils # (1.3-7.7) k/uL Lymphocytes # (1.0-4.8) k/uL Macrocytosis Sodium 135 L (137-145) mmol/L Carbon Dioxide 21 L (22-30) mmol/L BUN 22 H (9-20) mg/dL Creatinine 1.50 H (0.66-1.25) mg/dL Glucose 114 H (74-99) mg/dL POC Glucose (mg/dL) (75-99) mg/dL Total Protein 5.5 L (6.3-8.2) g/dL Albumin 2.7 L (3.5-5.0) g/dL Assessment and Plan Assessment: Assessment #1 paroxysmal atrial fibrillation #2 orthostatic hypotension on presentation #3 history of CVA #4 planned PIC tube placement Plan #1 from the cardiac standpoint overview the patient is a stable #2 continue the current medical regimen #3 the patient can proceed with the surgery
[2021-06-26 12:00] LABS: Glucose,Whole Blood 113 mg/dL (75-99)
[2021-06-26] MEDS ORDERED: IV FLUID CONTINUATION 1,000 ML IV ONE (15:27)
[2021-06-26] MEDS ORDERED: PROPOFOL 10 MG/ML 20 ML VIAL IV ONE (15:40)
[2021-06-26] MEDS ORDERED: LIDOCAINE 1% INJ 10MG/ML (20 ML MDV) ONE (15:40)
--- NOTE | 2021-06-26 16:10 | P.PCN ---
Date of Procedure: 06/26/21 Procedure(s) Performed: PREOPERATIVE DIAGNOSIS: Malnutrition POSTOPERATIVE DIAGNOSIS: Same PROCEDURE: EGD with PEG tube placement SURGEON: Rell EBL: Minimal ANESTHESIA: Sedation COMPLICATIONS: None OPERATIVE PROCEDURE: The patient was placed in the supine position on the endoscopy table. The patient was sedated per anesthesia that time. The Olympus gastroscope was inserted into the oropharynx and passed under direct visualization to the region of the duodenum. No obstruction was seen. The pylorus was widely patent. The stomach was carefully inspected. The stomach was fully insufflated with air. The abdominal wall was inspected. The light was seen shining through the abdominal wall in the left upper quadrant. This appeared to be at the site of previous scarring from the previous open gastrostomy tube site This site was chosen for PEG tube placement. The area was prepped in the usual sterile fashion. This area was then localized with lidocaine. No air was evident when aspirating while advancing the localizing needle into the stomach until the stomach was reached. A small vertical incision was made using the scalpel. The Seldinger needle was advanced into the lumen of the stomach the wire was advanced. The wire was grasped with an endoscopic snare. The wire was pulled through the oropharynx. The catheter was then threaded over the guidewire and the guidewire and catheter were pulled anteriorly until the hub of the PEG tube catheter was seated against the anterior wall the stomach. The circular bolster was applied and tightened down. The endoscope was then readvanced into the stomach. There was no evidence of any bleeding and there was appropriate tightness on the bolster. The catheter was cut appropriately. The dual port feeding adapter was applied. DISPOSITION: Stable to recovery room
[2021-06-26 16:30] LABS: Glucose,Whole Blood 104 mg/dL (75-99)
--- NOTE | 2021-06-26 19:43 | P.PN ---
Subjective Progress Note Date: 06/26/21 Everett Juárez, is a 61-year-old male patient of Dr. Jama, who presented to [facility] emergency room after sustaining a fall, and complaining of generalized weakness and dizziness, patient is not clear whether he passed out or had any loss of consciousness. Patient was also complaining of chest pain in the EMS, EKG was within normal limits and troponin level was less than 0.01 He was evaluated in the emergency room vital examination on presentation revealed a temperature of 97.4 pulse 71 respirations 16 blood pressure 87/50 pulse ox 94% on room air Laboratory data revealed a white blood count of 8.6 hemoglobin 12.0 platelet count 338 INR 1.2 sodium 128 potassium 6.2 chloride 99 CO2 22 BUN 17 creatinine 2.01 lactic acid on presentation 2.1 urine analysis did not reveal evidence of significant infection. Testing in the emergency room revealed EKG revealed normal sinus rhythm normal EKG chest x-ray done in the emergency room revealed no acute lung disease there was prominent pulmonary leon that could be related to adenopathy. 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 Patient was admitted to medical floor for further evaluation and treatment. Past medical history is significant for history of hypertension, history of hyperlipidemia, history of chronic kidney disease, history of spl-jlvvhvd-wxstpraqx diabetes mellitus, history of previous stroke, history of paroxysmal atrial fibrillation maintained on Coumadin, history of COPD, patient still smoke a few cigarettes per day, he denies alcohol use. On review of systems Patient is alert and responsive in no distress, he denies any complaints there is no fever or chills no headache or dizziness no chest pain no shortness of breath no palpitation no cough no nausea or vomiting no abdominal pain no diarrhea no blood in the stools no burning with urination no frequency or urgency and no hematuria, there is no weakness or numbness in any of the extremities no change in vision speech, gait was not tested. On 06/16/2021 patient was seen and examined on the telemetry floor he is alert and oriented 3 in no apparent distress he is still complaining of dizziness and weakness otherwise he denies any complaints there is no fever or chills no headache no chest pain no shortness of breath no cough no palpitation no nausea or vomiting no abdominal pain no diarrhea no blood in the stools no burning with urination no frequency or urgency and no hematuria there is no weakness or numbness in any of the extremities no change in vision or in speech On 06/17/2021 Patient was seen and examined on the medical floor, he is alert and oriented x 3 in no distress, he denies any complaints there is no fever or chills no headache or dizziness no chest pain no shortness of breath no palpitation no cough no nausea or vomiting no abdominal pain no diarrhea no blood in the stools no burning with urination no frequency or urgency and no hematuria, there is no weakness or numbness in any of the extremities no change in vision or speech, gait was not tested at this time, patient had significant orthostatic hypotension, this was discussed with cardiology, and dose of Catapres was adjusted down to 0.1 mg by mouth twice a day, patient will be reevaluated by cardiology in a.m. On 06/18/2021 patient was seen and examined on the medical floor, he is alert and oriented 3 in no distress, he is complaining of weakness otherwise he denies any specific complaints, there is no fever or chills no headache or dizziness no chest pain no shortness of breath no cough no nausea or vomiting no abdominal pain no diarrhea no blood in the stools no burning with urination no frequency or urgency no hematuria, there is no weakness or numbness in any of the extremities there is no change in vision speech or gait. Repeat orthostatic hypotension reveals significant drop while standing, cardiology are following, yesterday dose of Catapres was decreased to 0.1 by mouth twice daily, awaiting further recommendation from cardiology On 06/19/2021 patient was seen and examined on the medical floor, he is alert and oriented 3 in no distress, he is complaining of weakness otherwise he denies any specific complaints, he is still having significant orthostatic hypotension was significant drop in blood pressure when patient stands up. the re is no fever or chills no headache or dizziness no chest pain no shortness of breath no cough no nausea or vomiting no abdominal pain no diarrhea no blood in the stools no burning with urination no frequency or urgency no hematuria, there is no weakness or numbness in any of the extremities there is no change in vision speech or gait. Cardiology are following at this time Catapres is being discontinued and midodrine was added to medication regimen will continue to monitor closely. On 06/20/2021 patient was seen and examined on the medical floor he is alert and oriented 3 in no apparent distress, this morning he had an episode of palpitation and severe shortness of breath, EKG revealed SVT versus A. fib with RVR with a heart rate of 186 patient was transferred to [facility]. he was seen by ca rdiology and was started on IV amiodarone, chest x-ray was done today and was suspicious for right sided infiltrate suggestive of pneumonia patient is stating that he is having some cough with yellow sputum production WBC is low, patient was started on IV antibiotic Zosyn, and pulmonary consultation was requested. Patient denies any fever or chills no headache or dizziness no chest pain no nausea or vomiting no abdominal pain no diarrhea and no urinary symptoms. On 06/21/2021 patient was seen and examined on the medical floor he is complaining of cough otherwise he denies any complaints at this time there is no fever or chills no headache or dizziness no chest pain no shortness of breath no nausea or vomiting no abdominal pain no diarrhea no blood in the stools no burning with urination no frequency or urgency and no hematuria, yesterday patient had an episode of A. fib with RVR, he was started on IV amiodarone by cardiology and was transferred to telemetry floor, also chest x-ray revealed evidence of right basilar infiltrate, he was started on IV Zosyn pulmonary consultation was requested, sputum culture was ordered On 06/22/2021 Patient was seen and examined on the medical floor, he is alert and oriented x 3 in no distress, he is complaining of cough otherwise he denies any complaints there is no fever or chills no headache or dizziness no chest pain no shortness of breath no palpitation no cough no nausea or vomiting no abdominal pain no diarrhea no blood in the stools no burning with urination no frequency or urgency and no hematuria, there is no weakness or numbness in any of the extremities no change in vision speech or gait. Patient failed swallow evaluation with all food consistency today, he is kept nothing by mouth consultation for Dr. Zacarias for PEG tube placement was initiated. On 06/23/2021 patient is alert and oriented 3. Patient is resting comfortably in bed. Patient currently maintained on amiodarone drip per cardiology. Patient also maintained on IV Zosyn for aspiration pneumonia. Surgical services have been consulted for PEG tube placement. At this time pulmonary, cardiology, nephrology and surgical services following. Repeat labs have been ordered. Patient is still complaining of chest congestion and cough. Patient denies chest pain. Patient denies nausea vomiting or diarrhea. Patient denies any urinary burning or frequency. On 06/24/2021 Patient was seen and examined on the medical floor, he is alert and oriented x 3 in no distress, he denies any complaints there is no fever or chills no headache or dizziness no chest pain no shortness of breath no palpitation no cough no nausea or vomiting no abdominal pain no diarrhea no blood in the stools no burning with urination no frequency or urgency and no hematuria, there is no weakness or numbness in any of the extremities no change in vision speech, today INR is 5.3 Coumadin is on hold Will give 1 dose of vitamin K 2 mg IV patient is nothing by mouth , he is awaiting PEG tube placement On 06/24/2021 patient is alert and oriented 3 INR 1.2. Patient maintained on IV amiodarone. Tentative plans for PEG tube placement tomorrow per surgical services. . At this time patient remains with productive cough. Patient denies chest pain. Patient denies nausea vomiting or diarrhea. Patient denies any urinary burning or frequency On 06/26/2021 Patient was seen and examined on the medical floor, he is alert and oriented x 3 in no distress, he denies any complaints there is no fever or chills no headache or dizziness no chest pain no shortness of breath no palp itation no cough no nausea or vomiting no abdominal pain no diarrhea no blood in the stools no burning with urination no frequency or urgency and no hematuria, there is no weakness or numbness in any of the extremities no change in vision speech, patient received vitamin K his INR is low we are awaiting PEG tube placement Objective - Vital Signs Vital signs: Vital Signs Temp 98.2 F 06/26/21 07:50 Pulse 110 H 06/26/21 08:51 Resp 18 06/26/21 07:50 BP 103/64 06/26/21 07:50 Pulse Ox 95 06/26/21 08:41 Intake & Output 06/25/21 06/26/21 06/26/21 18:59 06:59 18:59 Intake Total 250 0 Output Total 300 Balance 250 -300 0 Weight 68.3 kg Intake: Intake, IV Titration 250 Amount Amiodarone 450 mg In 250 Dextrose 5% in Water 250 ml @ 0.5 MG/MIN 16.667 mls/hr IV .Q15H [facility] Rx#: [id number] Oral 0 0 Output: Urine 300 Other: Voiding Method Indwelling Catheter Indwelling Catheter Indwelling Catheter - Exam In general patient is alert and responsive in no distress HEENT head normocephalic and atraumatic Neck is supple no JVD no goiter no lymphadenopathy no carotid bruit Chest examination is clear to auscultation no crackles no wheezing Cardiac exam reveals regular heart sounds S1 and S2 no gallops no murmurs Abdomen is soft nontender no organomegaly with normal bowel sounds Extremity exam reveals no edema no cyanosis or clubbing Neurological examination reveals no gross focal deficits - Labs CBC & Chem 7: 06/26/21 07:41 06/26/21 07:41 Labs: Abnormal Lab Results - Last 24 Hours (Table) 06/25/21 06/25/21 06/25/21 Range/Units 11:48 13:00 16:50 RBC (4.30-5.90) m/uL Hgb (13.0-17.5) gm/dL Hct (39.0-53.0) % MCV (80.0-100.0) fL MCH (25.0-35.0) pg RDW (11.5-15.5) % Neutrophils # (1.3-7.7) k/uL Lymphocytes # (1.0-4.8) k/uL Macrocytosis Sodium (137-145) mmol/L Carbon Dioxide (22-30) mmol/L BUN (9-20) mg/dL Creatinine (0.66-1.25) mg/dL Glucose (74-99) mg/dL POC Glucose (mg/dL) 141 H 167 H 154 H (75-99) mg/dL Total Protein (6.3-8.2) g/dL Albumin (3.5-5.0) g/dL 06/25/21 06/26/21 06/26/21 Range/Units 20:26 05:35 07:41 RBC 2.60 L (4.30-5.90) m/uL Hgb 9.7 L (13.0-17.5) gm/dL Hct 29.4 L (39.0-53.0) % MCV 113.0 H (80.0-100.0) fL MCH 37.4 H (25.0-35.0) pg RDW 16.1 H (11.5-15.5) % Neutrophils # 8.3 H (1.3-7.7) k/uL Lymphocytes # 0.7 L (1.0-4.8) k/uL Macrocytosis Marked A Sodium (137-145) mmol/L Carbon Dioxide (22-30) mmol/L BUN (9-20) mg/dL Creatinine (0.66-1.25) mg/dL Glucose (74-99) mg/dL POC Glucose (mg/dL) 128 H 105 H (75-99) mg/dL Total Protein (6.3-8.2) g/dL Albumin (3.5-5.0) g/dL 06/26/21 Range/Units 07:41 RBC (4.30-5.90) m/uL Hgb (13.0-17.5) gm/dL Hct (39.0-53.0) % MCV (80.0-100.0) fL MCH (25.0-35.0) pg RDW (11.5-15.5) % Neutrophils # (1.3-7.7) k/uL Lymphocytes # (1.0-4.8) k/uL Macrocytosis Sodium 135 L (137-145) mmol/L Carbon Dioxide 21 L (22-30) mmol/L BUN 22 H (9-20) mg/dL Creatinine 1.50 H (0.66-1.25) mg/dL Glucose 114 H (74-99) mg/dL POC Glucose (mg/dL) (75-99) mg/dL Total Protein 5.5 L (6.3-8.2) g/dL Albumin 2.7 L (3.5-5.0) g/dL Assessment and Plan Plan: Fall at home with unclear history whether patient had a syncopal episode or loss of consciousness Episode of chest pain while in the ambulance Atrial fibrillation with rapid ventricular response. Patient started on amiodarone drip per cardiology Underlying history of paroxysmal atrial fibrillation, maintained on Coumadin however her INR was subtherapeutic at 1.2 on presentation, today INR is therapeutic at 2.7 Evidence of dehydration with electrolyte imbalance with hyponatremia and hyperkalemia Underlying history of chronic kidney disease Underlying history of vvv-eptkenm-ebjzirjzn diabetes mellitus, no evidence of hypoglycemia Underlying history of hypertension Previous history of cerebellar stroke. Right basilar infiltrate suggestive of pneumonia, patient started on IV Zosyn, pulmonary consultation requested Dysphagia. Patient was evaluated by speech pathology modified barium swallow completed surgical service is consulted for possible PEG tube placement Supatherapeutic INR. Vitamin K given repeat INR 1.2. Coumadin on hold for possible PEG tube placement DVT prophylaxis Coumadin. GI prophylaxis Pepcid Pulmonary, cardiology, nephrology and surgical services following Patient maintained on IV Zosyn Patient maintained on IV amiodarone Repeat labs ordered PT OT services consulted Social work consulted for possible ECF placement
[2021-06-26 20:43] LABS: Glucose,Whole Blood 105 mg/dL (75-99)
[2021-06-26] MEDS: ATORVASTATIN 80 MG TAB PO SCH (22:32)
[2021-06-27] MEDS: AMIODARONE 450 MG in DEXTROSE 5% IN WATER 250 ML IV SCH ×4 (01:42→06:51)
[2021-06-27] MEDS: SODIUM CHLORIDE 0.9% 1,000 ML IV SCH ×3 (01:44→14:18)
[2021-06-27] MEDS: PIPERACILLIN-TAZOBACTAM 3.375 GM in SODIUM CHLORIDE 0.9% 100 ML IVPB SCH ×3 (01:44→17:01)
[2021-06-27 06:06] LABS: Glucose,Whole Blood 134 mg/dL (75-99)
[2021-06-27] MEDS: MIDODRINE 5 MG TAB PO SCH ×3 (07:04→17:01)
[2021-06-27] MEDS: SYMBICORT 160-4.5 MCG INHALER INHALATION SCH ×2 (08:34→20:04)
[2021-06-27] MEDS: IPRATROPIUM-ALBUTEROL 3 ML NEB INHALATION SCH ×4 (08:34→20:04)
--- NOTE | 2021-06-27 08:42 | XR ---
EXAMINATION TYPE: XR chest 1V DATE OF EXAM: 06/27/2021 CLINICAL HISTORY: Difficulty breathing possible aspiration. TECHNIQUE: Single AP portable upright view of the chest is obtained. COMPARISON: Chest x-ray from 5 days earlier and older studies. FINDINGS: Persistent but improving right greater than left bibasilar opacities on background chronic parenchymal changes. Cardiac silhouette size is upper limits of normal with atherosclerotic change a ortic knob. Osseous structures are intact. IMPRESSION: Improving but persistent right greater than left bibasilar acute infiltrate and/or atelec tasis.
[2021-06-27] MEDS: METOPROLOL TARTRATE 25 MG TAB PO SCH ×3 (09:00→20:54)
[2021-06-27] MEDS: AMIODARONE 200 MG TAB PO SCH ×2 (09:00→20:54)
[2021-06-27] MEDS: CYANOCOBALAMIN 500 MCG TAB PO SCH (09:00)
[2021-06-27] MEDS: FAMOTIDINE 20 MG TAB PO SCH (09:01)
[2021-06-27] MEDS: FOLIC ACID 1 MG TAB PO SCH (09:01)
[2021-06-27] MEDS: VENLAFAXINE HCL 75 MG TAB PO SCH ×2 (09:02→20:56)
--- NOTE | 2021-06-27 09:09 | P.PN ---
Subjective Progress Note Date: 06/27/21 Principal diagnosis: Cardiac follow-up This is a 61-year-old gentleman with a past medical history significant for hypertension and dyslipidemia and diabetes and paroxysmal atrial fibrillation as well as chronic kidney disease and history of CVA. The patient was seen this morning. He underwent a PEG tube placement yesterday. He has been maintaining normal sinus mechanism. He continues to be on amiodarone IV which we are going to stop and switching to amiodarone by mouth and also start giving his by mouth medications since he is not nothing by mouth any more. Beside that I would consider restart Bactrim oral anticoagulation if it's okay from the surgical standpoint overview. Objective - Vital Signs Vital signs: Vital Signs Temp 98.1 F 06/27/21 07:42 Pulse 96 06/27/21 08:45 Resp 20 06/27/21 07:42 BP 94/50 06/27/21 07:42 Pulse Ox 94 L 06/27/21 08:34 Intake & Output 06/26/21 06/27/21 06/27/21 18:59 06:59 18:59 Intake Total 200 250 121.947 Output Total 825 200 Balance -625 50 121.947 Weight 68.3 kg 94 kg Intake: IV 200 Intake, IV Titration 250 121.947 Amount Amiodarone 450 mg In 250 121.947 Dextrose 5% in Water 250 ml @ 0.5 MG/MIN 16.667 mls/hr IV .Q15H [facility] [place] Rx#: [id number] Oral 0 Output: Urine 825 200 Other: Voiding Method Indwelling Catheter Indwelling Catheter # Bowel Movements 1 - Constitutional General appearance: Present: no acute distress - Respiratory Respiratory: bilateral: diminished - Cardiovascular Heart sounds: normal: S1, S2 - Labs CBC & Chem 7: 06/26/21 07:41 06/26/21 07:41 Labs: Abnormal Lab Results - Last 24 Hours (Table) 06/26/21 06/26/21 06/26/21 Range/Units 11:56 16:28 20:36 POC Glucose (mg/dL) 113 H 104 H 105 H (75-99) mg/dL 06/27/21 Range/Units 06:03 POC Glucose (mg/dL) 134 H (75-99) mg/dL Assessment and Plan Assessment: Assessment #1 paroxysmal atrial fibrillation #2 orthostatic hypotension on presentation #3 history of CVA #4 planned PIC tube placement Plan #1 from the cardiac standpoint overview the patient is a stable #2 restart the patient on oral anticoagulation if it's okay from the surgical standpoint of view #3 restart the patient back on oral medication
[2021-06-27] MEDS: HYDROmorphone 0.5 MG/0.5 ML SYRINGE IVP PRN ×2 (09:55→20:54)
[2021-06-27 10:12] LABS: HCT 29.2 % (39.0-53.0); HGB 9.2 gm/dL (13.0-17.5); Hypochromasia Slight; MCH 36.7 pg (25.0-35.0); MCHC 31.6 g/dL (31.0-37.0); MCV 116.1 fL (80.0-100.0); Macrocytosis Marked; Mean Platelet Volume 7.6; Platelet Count 317 k/uL (150-450); RBC 2.51 m/uL (4.30-5.90); RDW 15.4 % (11.5-15.5); WBC 11.6 k/uL (3.8-10.6)
[2021-06-27 10:22] LABS: Calcium 8.4 mg/dL (8.4-10.2)
[2021-06-27 10:24] LABS: Potassium 4.1 mmol/L (3.5-5.1)
[2021-06-27 10:32] LABS: INR 1.4 (<1.2); Prothrombin Time 13.9 sec (9.0-12.0)
[2021-06-27 11:51] LABS: Glucose,Whole Blood 111 mg/dL (75-99)
--- NOTE | 2021-06-27 12:47 | PN ---
PROGRESS NOTE Patient is seen for followup for acute kidney injury. Renal function is staying stable with creatinine at 1.5 mg/dL. Patient is maintained on IV fluids. He is also maintained on midodrine. Blood pressure remains on the lower side, systolic ranging from 113 to 94 mmHg. The patient has an indwelling Lara catheter, urine output at about a liter for 24 hours. On examination today, patient is awake. Blood pressure was 94/50, heart rate 97 per minute. He is afebrile. EXAMINATION OF THE HEART: S1 and S2. EXAMINATION OF LUNGS: Bilateral breath sounds are heard. ABDOMEN: Soft, nontender. LOWER EXTREMITIES: Examination of lower extremities shows edema 1+ bilaterally. 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 Labs show sodium 133, potassium 4.1, chloride 106, CO2 is 19, BUN 23, creatinine 1.5, hemoglobin 9.2 g/dL. ASSESSMENT: 1. Acute kidney injury, status post IV fluids. Renal function staying stable. Patient will be started on tube feedings, and a PEG tube was placed for malnutrition. We will maintain him on free water as well through the tube feedings. No evidence of obstruction. Patient has an indwelling Lara catheter. 2. Chronic kidney disease, stage 3A, baseline creatinine 1.6 to 2 mg/dL with solitary kidney, which is his right kidney, and previous history of obstructive uropathy. 3. Status post left nephrectomy. 4. Hyperkalemia. 5. Hyponatremia, currently stable, status post normal saline. 6. Atrial fibrillation with rapid ventricular response, currently with improved ventricular response. The patient had been on amiodarone, now changed to p.o. PLAN: Decrease IV fluids. Once the patient's tube feedings are at goal, we can discontinue the saline. Renal function is at baseline. MMODL / IJN: [id number] /
--- NOTE | 2021-06-27 16:17 | P.PN ---
Subjective Progress Note Date: 06/27/21 Principal diagnosis: Malnutrition Patient doing well today. Mild discomfort at the PEG tube site. Tolerating tube feeds at 20 mL per hour. White blood cell count 11.6. Objective - Vital Signs Vital signs: Vital Signs Temp 98.2 F 06/27/21 15:45 Pulse 97 06/27/21 16:07 Resp 16 06/27/21 15:45 BP 104/58 06/27/21 15:45 Pulse Ox 98 06/27/21 16:09 Intake & Output 06/26/21 06/27/21 06/27/21 18:59 06:59 18:59 Intake Total 200 250 121.947 Output Total 825 200 200 Balance -625 50 -78.053 Weight 68.3 kg 94 kg Intake: IV 200 Intake, IV Titration 250 121.947 Amount Amiodarone 450 mg In 250 121.947 Dextrose 5% in Water 250 ml @ 0.5 MG/MIN 16.667 mls/hr IV .Q15H [facility] Rx#: [id number] Oral 0 Output: Urine 825 200 200 Other: Voiding Method Indwelling Catheter Indwelling Catheter Indwelling Catheter # Bowel Movements 1 - Exam Abdomen: Soft, nondistended, PEG tube site without evidence of infection, minimal tenderness - Labs CBC & Chem 7: 06/27/21 09:45 06/27/21 09:45 Labs: Abnormal Lab Results - Last 24 Hours (Table) 06/26/21 06/26/21 06/27/21 Range/Units 16:28 20:36 06:03 WBC (3.8-10.6) k/uL RBC (4.30-5.90) m/uL Hgb (13.0-17.5) gm/dL Hct (39.0-53.0) % MCV (80.0-100.0) fL MCH (25.0-35.0) pg Macrocytosis PT (9.0-12.0) sec INR (<1.2) Sodium (137-145) mmol/L Carbon Dioxide (22-30) mmol/L BUN (9-20) mg/dL Creatinine (0.66-1.25) mg/dL Glucose (74-99) mg/dL POC Glucose (mg/dL) 104 H 105 H 134 H (75-99) mg/dL 06/27/21 06/27/21 06/27/21 Range/Units 09:45 09:45 09:45 WBC 11.6 H (3.8-10.6) k/uL RBC 2.51 L (4.30-5.90) m/uL Hgb 9.2 L (13.0-17.5) gm/dL Hct 29.2 L (39.0-53.0) % MCV 116.1 H (80.0-100.0) fL MCH 36.7 H (25.0-35.0) pg Macrocytosis Marked A PT 13.9 H (9.0-12.0) sec INR 1.4 H (<1.2) Sodium 133 L (137-145) mmol/L Carbon Dioxide 19 L (22-30) mmol/L BUN 23 H (9-20) mg/dL Creatinine 1.54 H (0.66-1.25) mg/dL Glucose 123 H (74-99) mg/dL POC Glucose (mg/dL) (75-99) mg/dL 06/27/21 Range/Units 11:49 WBC (3.8-10.6) k/uL RBC (4.30-5.90) m/uL Hgb (13.0-17.5) gm/dL Hct (39.0-53.0) % MCV (80.0-100.0) fL MCH (25.0-35.0) pg Macrocytosis PT (9.0-12.0) sec INR (<1.2) Sodium (137-145) mmol/L Carbon Dioxide (22-30) mmol/L BUN (9-20) mg/dL Creatinine (0.66-1.25) mg/dL Glucose (74-99) mg/dL POC Glucose (mg/dL) 111 H (75-99) mg/dL Assessment and Plan (1) Malnutrition of moderate degree Narrative/Plan: Continue advancing tube feeds as tolerated. Will follow with you. Current Visit: Yes Status: Acute Code(s): E44.0 - MODERATE PROTEIN-CALORIE MALNUTRITION SNOMED Code(s): 711115274
[2021-06-27 17:55] LABS: Glucose,Whole Blood 109 mg/dL (75-99)
[2021-06-27] MEDS ORDERED: WARFARIN 2 MG TAB PO ONE (18:00)
--- NOTE | 2021-06-27 19:54 | P.PN ---
Subjective Progress Note Date: 06/27/21 Everett Juárez, is a 61-year-old male patient of Dr. Jama, who presented to [facility] emergency room after sustaining a fall, and complaining of generalized weakness and dizziness, patient is not clear whether he passed out or had any loss of consciousness. Patient was also complaining of chest pain in the EMS, EKG was within normal limits and troponin level was less than 0.01 He was evaluated in the emergency room vital examination on presentation revealed a temperature of 97.4 pulse 71 respirations 16 blood pressure 87/50 pulse ox 94% on room air Laboratory data revealed a white blood count of 8.6 hemoglobin 12.0 platelet count 338 INR 1.2 sodium 128 potassium 6.2 chloride 99 CO2 22 BUN 17 creatinine 2.01 lactic acid on presentation 2.1 urine analysis did not reveal evidence of significant infection. Testing in the emergency room revealed EKG revealed normal sinus rhythm normal EKG chest x-ray done in the emergency room revealed no acute lung disease there was prominent pulmonary leon that could be related to adenopathy. 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 Patient was admitted to medical floor for further evaluation and treatment. Past medical history is significant for history of hypertension, history of hyperlipidemia, history of chronic kidney disease, history of kwh-ghznmeb-voxpthnpt diabetes mellitus, history of previous stroke, history of paroxysmal atrial fibrillation maintained on Coumadin, history of COPD, patient still smoke a few cigarettes per day, he denies alcohol use. On review of systems Patient is alert and responsive in no distress, he denies any complaints there is no fever or chills no headache or dizziness no chest pain no shortness of breath no palpitation no cough no nausea or vomiting no abdominal pain no diarrhea no blood in the stools no burning with urination no frequency or urgency and no hematuria, there is no weakness or numbness in any of the extremities no change in vision speech, gait was not tested. On 06/16/2021 patient was seen and examined on the telemetry floor he is alert and oriented 3 in no apparent distress he is still complaining of dizziness and weakness otherwise he denies any complaints there is no fever or chills no headache no chest pain no shortness of breath no cough no palpitation no nausea or vomiting no abdominal pain no diarrhea no blood in the stools no burning with urination no frequency or urgency and no hematuria there is no weakness or numbness in any of the extremities no change in vision or in speech On 06/17/2021 Patient was seen and examined on the medical floor, he is alert and oriented x 3 in no distress, he denies any complaints there is no fever or chills no headache or dizziness no chest pain no shortness of breath no palpitation no cough no nausea or vomiting no abdominal pain no diarrhea no blood in the stools no burning with urination no frequency or urgency and no hematuria, there is no weakness or numbness in any of the extremities no change in vision or speech, gait was not tested at this time, patient had significant orthostatic hypotension, this was discussed with cardiology, and dose of Catapres was adjusted down to 0.1 mg by mouth twice a day, patient will be reevaluated by cardiology in a.m. On 06/18/2021 patient was seen and examined on the medical floor, he is alert and oriented 3 in no distress, he is complaining of weakness otherwise he denies any specific complaints, there is no fever or chills no headache or dizziness no chest pain no shortness of breath no cough no nausea or vomiting no abdominal pain no diarrhea no blood in the stools no burning with urination no frequency or urgency no hematuria, there is no weakness or numbness in any of the extremities there is no change in vision speech or gait. Repeat orthostatic hypotension reveals significant drop while standing, cardiology are following, yesterday dose of Catapres was decreased to 0.1 by mouth twice daily, awaiting further recommendation from cardiology On 06/19/2021 patient was seen and examined on the medical floor, he is alert and oriented 3 in no distress, he is complaining of weakness otherwise he denies any specific complaints, he is still having significant orthostatic hypotension was significant drop in blood pressure when patient stands up. the re is no fever or chills no headache or dizziness no chest pain no shortness of breath no cough no nausea or vomiting no abdominal pain no diarrhea no blood in the stools no burning with urination no frequency or urgency no hematuria, there is no weakness or numbness in any of the extremities there is no change in vision speech or gait. Cardiology are following at this time Catapres is being discontinued and midodrine was added to medication regimen will continue to monitor closely. On 06/20/2021 patient was seen and examined on the medical floor he is alert and oriented 3 in no apparent distress, this morning he had an episode of palpitation and severe shortness of breath, EKG revealed SVT versus A. fib with RVR with a heart rate of 186 patient was transferred to [facility]. he was seen by ca rdiology and was started on IV amiodarone, chest x-ray was done today and was suspicious for right sided infiltrate suggestive of pneumonia patient is stating that he is having some cough with yellow sputum production WBC is low, patient was started on IV antibiotic Zosyn, and pulmonary consultation was requested. Patient denies any fever or chills no headache or dizziness no chest pain no nausea or vomiting no abdominal pain no diarrhea and no urinary symptoms. On 06/21/2021 patient was seen and examined on the medical floor he is complaining of cough otherwise he denies any complaints at this time there is no fever or chills no headache or dizziness no chest pain no shortness of breath no nausea or vomiting no abdominal pain no diarrhea no blood in the stools no burning with urination no frequency or urgency and no hematuria, yesterday patient had an episode of A. fib with RVR, he was started on IV amiodarone by cardiology and was transferred to telemetry floor, also chest x-ray revealed evidence of right basilar infiltrate, he was started on IV Zosyn pulmonary consultation was requested, sputum culture was ordered On 06/22/2021 Patient was seen and examined on the medical floor, he is alert and oriented x 3 in no distress, he is complaining of cough otherwise he denies any complaints there is no fever or chills no headache or dizziness no chest pain no shortness of breath no palpitation no cough no nausea or vomiting no abdominal pain no diarrhea no blood in the stools no burning with urination no frequency or urgency and no hematuria, there is no weakness or numbness in any of the extremities no change in vision speech or gait. Patient failed swallow evaluation with all food consistency today, he is kept nothing by mouth consultation for Dr. Zacarias for PEG tube placement was initiated. On 06/23/2021 patient is alert and oriented 3. Patient is resting comfortably in bed. Patient currently maintained on amiodarone drip per cardiology. Patient also maintained on IV Zosyn for aspiration pneumonia. Surgical services have been consulted for PEG tube placement. At this time pulmonary, cardiology, nephrology and surgical services following. Repeat labs have been ordered. Patient is still complaining of chest congestion and cough. Patient denies chest pain. Patient denies nausea vomiting or diarrhea. Patient denies any urinary burning or frequency. On 06/24/2021 Patient was seen and examined on the medical floor, he is alert and oriented x 3 in no distress, he denies any complaints there is no fever or chills no headache or dizziness no chest pain no shortness of breath no palpitation no cough no nausea or vomiting no abdominal pain no diarrhea no blood in the stools no burning with urination no frequency or urgency and no hematuria, there is no weakness or numbness in any of the extremities no change in vision speech, today INR is 5.3 Coumadin is on hold Will give 1 dose of vitamin K 2 mg IV patient is nothing by mouth , he is awaiting PEG tube placement On 06/24/2021 patient is alert and oriented 3 INR 1.2. Patient maintained on IV amiodarone. Tentative plans for PEG tube placement tomorrow per surgical services. . At this time patient remains with productive cough. Patient denies chest pain. Patient denies nausea vomiting or diarrhea. Patient denies any urinary burning or frequency On 06/26/2021 Patient was seen and examined on the medical floor, he is alert and oriented x 3 in no distress, he denies any complaints there is no fever or chills no headache or dizziness no chest pain no shortness of breath no palp itation no cough no nausea or vomiting no abdominal pain no diarrhea no blood in the stools no burning with urination no frequency or urgency and no hematuria, there is no weakness or numbness in any of the extremities no change in vision speech, patient received vitamin K his INR is low we are awaiting PEG tube placement On 06/26/2021 Patient was seen and examined on the medical floor, he is alert and oriented x 3 in no distress, he denies any complaints there is no fever or chills no headache or dizziness no chest pain no shortness of breath no palpitation no cough no nausea or vomiting no abdominal pain no diarrhea no blood in the stools no burning with urination no frequency or urgency and no hematuria, there is no weakness or numbness in any of the extremities no change in vision speech, Patient underwent PEG tube placement and was started on PEG tube feeding, will continue to follow closely will recheck chest x-ray in a.m. Objective - Vital Signs Vital signs: Vital Signs Temp 98.1 F 06/27/21 07:42 Pulse 96 06/27/21 08:45 Resp 20 06/27/21 07:42 BP 94/50 06/27/21 07:42 Pulse Ox 94 L 06/27/21 08:34 Intake & Output 06/26/21 06/27/21 06/27/21 18:59 06:59 18:59 Intake Total 200 250 121.947 Output Total 825 200 Balance -625 50 121.947 Weight 68.3 kg 94 kg Intake: IV 200 Intake, IV Titration 250 121.947 Amount Amiodarone 450 mg In 250 121.947 Dextrose 5% in Water 250 ml @ 0.5 MG/MIN 16.667 mls/hr IV .Q15H [facility] Rx#: [id number] Oral 0 Output: Urine 825 200 Other: Voiding Method Indwelling Catheter Indwelling Catheter # Bowel Movements 1 - Exam In general patient is alert and responsive in no distress HEENT head normocephalic and atraumatic Neck is supple no JVD no goiter no lymphadenopathy no carotid bruit Chest examination is clear to auscultation no crackles no wheezing Cardiac exam reveals regular heart sounds S1 and S2 no gallops no murmurs Abdomen is soft nontender no organomegaly with normal bowel sounds Extremity exam reveals no edema no cyanosis or clubbing Neurological examination reveals no gross focal deficits - Labs CBC & Chem 7: 06/27/21 09:45 06/27/21 09:45 Labs: Abnormal Lab Results - Last 24 Hours (Table) 06/26/21 06/26/21 06/26/21 Range/Units 11:56 16:28 20:36 POC Glucose (mg/dL) 113 H 104 H 105 H (75-99) mg/dL 06/27/21 Range/Units 06:03 POC Glucose (mg/dL) 134 H (75-99) mg/dL Assessment and Plan Plan: Fall at home with unclear history whether patient had a syncopal episode or loss of consciousness Episode of chest pain while in the ambulance Atrial fibrillation with rapid ventricular response. Patient started on amiodarone drip per cardiology Underlying history of paroxysmal atrial fibrillation, maintained on Coumadin however her INR was subtherapeutic at 1.2 on presentation, today INR is therapeutic at 2.7 Evidence of dehydration with electrolyte imbalance with hyponatremia and hyperkalemia Underlying history of chronic kidney disease Underlying history of [id number] diabetes mellitus, no evidence of hypoglycemia Underlying history of hypertension Previous history of cerebellar stroke. Right basilar infiltrate suggestive of pneumonia, patient started on IV Zosyn, pulmonary consultation requested Dysphagia. Patient was evaluated by speech pathology modified barium swallow completed surgical service is consulted for possible PEG tube placement Supatherapeutic INR. Vitamin K given repeat INR 1.2. Coumadin on hold for possible PEG tube placement DVT prophylaxis Coumadin. GI prophylaxis Pepcid Pulmonary, cardiology, nephrology and surgical services following Patient maintained on IV Zosyn Patient maintained on IV amiodarone Repeat labs ordered PT OT services consulted Social work consulted for possible ECF placement
[2021-06-27] MEDS: ATORVASTATIN 80 MG TAB PO SCH (20:54)
--- NOTE | 2021-06-27 22:13 | XR ---
EXAMINATION TYPE: XR chest 2V DATE OF EXAM: 06/27/2021 COMPARISON: Same-day HISTORY: Shortness of breath. TECHNIQUE: Frontal and lateral views of the chest are obtained. FINDINGS: There is increased moderate interstitial edema with bibasilar opacities and small pleural effusions. No pneumothorax seen. The cardiac silhouette size is borderline enlarged. The osseous s tructures are intact. IMPRESSION: Worsening interstitial edema with superimposed infiltrates versus atelectasis. Small pleural effusions.
[2021-06-27 23:43] LABS: Glucose,Whole Blood 106 mg/dL (75-99)
[2021-06-28] MEDS: PIPERACILLIN-TAZOBACTAM 3.375 GM in SODIUM CHLORIDE 0.9% 100 ML IVPB SCH ×3 (01:15→16:59)
[2021-06-28 06:01] LABS: Glucose,Whole Blood 126 mg/dL (75-99)
[2021-06-28] MEDS: MIDODRINE 5 MG TAB PO SCH ×4 (06:18→17:06)
[2021-06-28] MEDS: HYDROmorphone 0.5 MG/0.5 ML SYRINGE IVP PRN (06:18)
[2021-06-28 07:26] LABS: Basophils # (A) 0.1 k/uL (0-0.2); Basophils % (A) 1 %; Eosinophils # (A) 0.1 k/uL (0-0.7); Eosinophils % (A) 1 %; HGB 9.2 gm/dL (13.0-17.5); Hypochromasia Slight; Lymphocytes # (A) 0.8 k/uL (1.0-4.8); Lymphocytes % (A) 10 %; MCH 37.2 pg (25.0-35.0); MCHC 31.8 g/dL (31.0-37.0); Macrocytosis Marked; Mean Platelet Volume 8.3; Monocytes # (A) 0.4 k/uL (0-1.0); Monocytes % (A) 5 %; Neutrophils # (A) 7.2 k/uL (1.3-7.7); Neutrophils % (A) 82 %; Platelet Count 301 k/uL (150-450); RBC 2.48 m/uL (4.30-5.90); RDW 15.3 % (11.5-15.5); WBC 8.8 k/uL (3.8-10.6)
[2021-06-28 07:33] LABS: Albumin 2.6 g/dL (3.5-5.0); Calcium 8.9 mg/dL (8.4-10.2); Potassium 4.4 mmol/L (3.5-5.1); Total Bilirubin 0.7 mg/dL (0.2-1.3); Total Protein 5.4 g/dL (6.3-8.2)
[2021-06-28 07:38] LABS: INR 1.6 (<1.2)
[2021-06-28 07:39] LABS: Prothrombin Time 15.6 sec (9.0-12.0)
[2021-06-28] MEDS: IPRATROPIUM-ALBUTEROL 3 ML NEB INHALATION SCH ×4 (07:56→19:09)
[2021-06-28] MEDS: SYMBICORT 160-4.5 MCG INHALER INHALATION SCH ×2 (08:05→19:09)
[2021-06-28] MEDS: AMIODARONE 200 MG TAB PO SCH ×2 (08:43→21:59)
[2021-06-28] MEDS: FAMOTIDINE 20 MG TAB PO SCH (08:43)
[2021-06-28] MEDS: VENLAFAXINE HCL 75 MG TAB PO SCH ×2 (08:44→21:59)
[2021-06-28] MEDS: FOLIC ACID 1 MG TAB PO SCH (08:44)
[2021-06-28] MEDS: CYANOCOBALAMIN 500 MCG TAB PO SCH (08:44)
[2021-06-28] MEDS: METOPROLOL TARTRATE 25 MG TAB PO SCH ×3 (08:44→21:59)
--- NOTE | 2021-06-28 10:03 | P.PN ---
Subjective Progress Note Date: 06/28/21 HISTORY OF PRESENT ILLNESS: This is a 61-year-old male with a past medical history significant for diabetes, hypertension, hyperlipidemia, paroxysmal atrial fibrillation, and peripheral arterial disease. Patient follows in the office with Dr. Gonzalez. We have been asked to see the patient in consultation for possible syncope, atrial fibrillation. Patient examined at the bedside in the emergency room. A poor historian. Patient is admitted to the hospital secondary to a fall. The patient is unsure if he lost consciousness. He currently denies chest pain or pressure. He denies shortness of breath. EKG on arrival reveals sinus mechanism. Chest xray no acute lung disease. Laboratory data: WBC 8.2. Hemoglobin 11.8. Platelet count 271. Sodium 129. Potassium 6.2. Repeat 5.0. BUN 16. Creatinine 1.7. Troponin negative 3. TSH 2.570. Current home cardiac medications include warfarin 5 mg daily, Catapres 0.2 mg twice a day, Pletal 50 mg twice a day, metoprolol tartrate 25 mg 3 times a day, Vasotec 10 mg twice a day, Lipitor 80 mg daily Patient underwent dobutamine stress echo in December 2019 revealing no evidence for reversible ischemia Echocardiogram completed in December 2019 revealed normal ejection fraction, mild MR and mild TR 06/19/2021 Patient was found to have orthostatic blood pressures over the weekend. His Vasotec was discontinued and his Catapres was decreased. Patient denies dizziness or lightheadedness. He states he has been walking around in his room. He denies shortness of breath or chest pain. Patient's orthostatic blood pressures this morning remained positive. Supine blood pressure 117/62. Sitting blood pressure 91/53. Standing blood pressure 70/53. 06/20/2021 Patient was found to be tachycardic this morning with a heart rate in the 180s. EKG completed reveals SVT versus atrial fibrillation with RVR. Patient denied chest pain or pressure. Denies palpitations. He did report shortness of breath and IVP x 1 dose was ordered by internal medicine. Patient received his morning metoprolol with improvement of his heart rate into the 130-140s. Repeat EKG performed and reviewed with Dr. Gonzalez revealing sinus tachycardia versus multifocal atrial tachycardia. 06/23/21 Patient's d-dimer was elevated 1.3. He underwent a VQ scan which was low probability for pulmonary embolism. He underwent a barium swallow yesterday which revealed large amount of malik aspiration with thin liquids a moderate as piration with honey thick liquids, there is severe piriform sinus residuals which places the patient at risk. Pt seen and examined laying flat resting comfortably in bed in no acute distress. He continues to feel weak. He has no complaints of chest pain or shortness of breath. He is coughing and bringing up some sputum. He does complain of buttocks pain, requesting something for pain. He has had episodes of afib with RVR IV amiodarone was resumed and then converted back to sinus rhythm. He is currently maintaining sinus mechanism heart rate 90s-115. He is sometimes tachycardic, but maintaining sinus mechanims. He is maintained on antibiotics for suspected aspiration pneumonia. Blood pressure 134/76, heart rate 109, afebrile, maintaining oxygen saturations 98% on 4 L nasal cannula. He 's currently maintained on IV amiodarone 0.5 mg/min, atorvastatin 80 mg nightly, Wellbutrin 10 mg 3 times a day, metoprolol titrate 25 mg 3 times a day. Laboratory data reviewed, WBC 6.1, hemoglobin 10, platelets 322, sodium 1:30, potassium 3.8, BUN 22, serum creatinine 1.4, magnesium 1.8, INR 4.3. Patient continues to be orthostatic. 06/24 Patient seen and examined. Patient remains nothing by mouth. He denies any chest pain or pressure. No shortness breath. He admits to still feeling fati gued. He is scheduled for PEG tube placement on Saturday. Remains in sinus rhythm however sinus tachycardia with heart rates low 100s. 06/25 Patient seen and examined. Patient denies any chest pain or pressure. Denies any shortness breath. He has been receiving IV fluids as he has been nothing by mouth. He was continued be tachycardic and therefore IV digoxin 250 mg was given yesterday 1. He was also given vitamin K with improvement in INR. She is scheduled for PEG tube placement tomorrow. 06/27/2021 The patient was seen this morning. He underwent a PEG tube placement yesterday. He has been maintaining normal sinus mechanism. He continues to be on amiodarone IV which we are going to stop and switching to amiodarone by mouth and also start giving his by mouth medications since he is not nothing by mouth any more. Beside that I would consider restart Bactrim oral anticoagulation if it's okay from the surgical standpoint overview. 06/28/2021 Patient examined this morning at the bedside. Patient denies chest pain or pressure. Denies shortness of breath. He reports lightheadedness this morning when he tried to stand up. Patient has PEG tube placed and has been started back on his Coumadin. INR 1.6 PHYSICAL EXAM: VITAL SIGNS: Reviewed. GENERAL: Well-developed in no acute distress. HEENT: Head is normocephalic. Pupils are equal, round. Sclerae anicteric. Mucous membranes of the mouth are moist. Neck supple. No JVD or thyromegaly LUNGS: Respirations even and unlabored. Lungs diminished with rhonchi noted bilaterally. HEART: Tachycardic. Regular rate and rhythm. S1 and S2 heard. ABDOMEN: Soft. Nondistended. Nontender. EXTREMITIES: Normal range of motion. No clubbing or cyanosis. Peripheral pulses intact. No lower extremity edema NEUROLOGIC: Awake and alert. Oriented x 3. ASSESSMENT: Status post fall likely secondary to orthostatic hypotension Hyperkalemia, resolved S/P PEG tube insertion Paroxysmal atrial fibrillation on anticoagulation with Coumadin Obstructive sleep apnea History of CVA Peripheral arterial disease Hypertension Hyperlipidemia Diabetes mellitus Chronic kidney disease PLAN: Continue current cardiac medications Continue Coumadin. Monitor INR. No further inpatient recommendations from a cardiac standpoint We will sign off. Please reconsult if needed. Nurse practitioner note has been reviewed by physician. Signing provider agrees with the documented findings, assessment, and plan of care. Objective - Vital Signs Vital signs: Vital Signs Temp 98.2 F 06/28/21 07:57 Pulse 86 06/28/21 08:06 Resp 19 06/28/21 07:57 BP 98/66 06/28/21 07:57 Pulse Ox 96 06/28/21 08:06 Intake & Output 06/27/21 06/28/21 06/28/21 18:59 06:59 18:59 Intake Total 121.947 Output Total 200 200 Balance -78.053 -200 Weight 77 kg Intake: Intake, IV Titration 121.947 Amount Amiodarone 450 mg In 121.947 Dextrose 5% in Water 250 ml @ 0.5 MG/MIN 16.667 mls/hr IV .Q15H [facility] Rx#: [id number] Output: Urine 200 200 Other: Voiding Method Indwelling Catheter Indwelling Catheter Indwelling Catheter # Bowel Movements 1 - Labs CBC & Chem 7: 06/28/21 06:57 06/28/21 06:57 Labs: Abnormal Lab Results - Last 24 Hours (Table) 06/27/21 06/27/21 06/27/21 Range/Units 09:45 09:45 09:45 WBC 11.6 H (3.8-10.6) k/uL RBC 2.51 L (4.30-5.90) m/uL Hgb 9.2 L (13.0-17.5) gm/dL Hct 29.2 L (39.0-53.0) % MCV 116.1 H (80.0-100.0) fL MCH 36.7 H (25.0-35.0) pg Lymphocytes # (1.0-4.8) k/uL Macrocytosis Marked A PT 13.9 H (9.0-12.0) sec INR 1.4 H (<1.2) Sodium 133 L (137-145) mmol/L Carbon Dioxide 19 L (22-30) mmol/L BUN 23 H (9-20) mg/dL Creatinine 1.54 H (0.66-1.25) mg/dL Glucose 123 H (74-99) mg/dL POC Glucose (mg/dL) (75-99) mg/dL Total Protein (6.3-8.2) g/dL Albumin (3.5-5.0) g/dL 06/27/21 06/27/21 06/27/21 Range/Units 11:49 17:54 23:40 WBC (3.8-10.6) k/uL RBC (4.30-5.90) m/uL Hgb (13.0-17.5) gm/dL Hct (39.0-53.0) % MCV (80.0-100.0) fL MCH (25.0-35.0) pg Lymphocytes # (1.0-4.8) k/uL Macrocytosis PT (9.0-12.0) sec INR (<1.2) Sodium (137-145) mmol/L Carbon Dioxide (22-30) mmol/L BUN (9-20) mg/dL Creatinine (0.66-1.25) mg/dL Glucose (74-99) mg/dL POC Glucose (mg/dL) 111 H 109 H 106 H (75-99) mg/dL Total Protein (6.3-8.2) g/dL Albumin (3.5-5.0) g/dL 06/28/21 06/28/21 06/28/21 Range/Units 05:53 06:57 06:57 WBC (3.8-10.6) k/uL RBC 2.48 L (4.30-5.90) m/uL Hgb 9.2 L (13.0-17.5) gm/dL Hct 29.0 L (39.0-53.0) % MCV 117.0 H (80.0-100.0) fL MCH 37.2 H (25.0-35.0) pg Lymphocytes # 0.8 L (1.0-4.8) k/uL Macrocytosis Marked A PT 15.6 H (9.0-12.0) sec INR 1.6 H (<1.2) Sodium (137-145) mmol/L Carbon Dioxide (22-30) mmol/L BUN (9-20) mg/dL Creatinine (0.66-1.25) mg/dL Glucose (74-99) mg/dL POC Glucose (mg/dL) 126 H (75-99) mg/dL Total Protein (6.3-8.2) g/dL Albumin (3.5-5.0) g/dL 06/28/21 Range/Units 06:57 WBC (3.8-10.6) k/uL RBC (4.30-5.90) m/uL Hgb (13.0-17.5) gm/dL Hct (39.0-53.0) % MCV (80.0-100.0) fL MCH (25.0-35.0) pg Lymphocytes # (1.0-4.8) k/uL Macrocytosis PT (9.0-12.0) sec INR (<1.2) Sodium 136 L (137-145) mmol/L Carbon Dioxide 21 L (22-30) mmol/L BUN 25 H (9-20) mg/dL Creatinine 1.73 H (0.66-1.25) mg/dL Glucose 117 H (74-99) mg/dL POC Glucose (mg/dL) (75-99) mg/dL Total Protein 5.4 L (6.3-8.2) g/dL Albumin 2.6 L (3.5-5.0) g/dL
[2021-06-28] MEDS: SODIUM CHLORIDE 0.9% 1,000 ML IV SCH (11:09)
--- NOTE | 2021-06-28 11:24 | P.PN ---
<Jewels Sanders - Last Filed: 06/28/21 11:22> Subjective Progress Note Date: 06/28/21 CHIEF COMPLAINT: Malnutrition HISTORY OF PRESENT ILLNESS: Patient is status post PEG tube placement. He denies any abdominal pain. Denies any nausea or vomiting. He is tolerating tube feedings. His rate is currently at 40 mL per hour with a goal of 60 mL per hour. There was minimal residual of 5 mL. Afebrile WBC is down from 11.6-4.4 PHYSICAL EXAM: VITAL SIGNS: Reviewed. GENERAL: Well-developed in no acute distress. HEENT: No sclera icterus. Extraocular movements grossly intact. Moist buccal mucosa. Head is atraumatic, normocephalic. ABDOMEN: Soft. Nondistended. Nontender. PEG tube site clean dry and intact NEUROLOGIC: Alert and oriented. Cranial nerves II through XII grossly intact. ASSESSMENT: 1. Moderate protein Malnutrition Status Post PEG Tube Placement PLAN: -Continue to titrate tube feedings -Continue supportive care Physician Ladle Builder note has been reviewed by physician. Signing provider agrees with the documented findings, assessment, and plan of care. Objective - Vital Signs Vital signs: Vital Signs Temp 98.6 F 06/28/21 11:19 Pulse 99 06/28/21 11:19 Resp 16 06/28/21 11:19 BP 109/74 06/28/21 11:19 Pulse Ox 96 06/28/21 11:19 Intake & Output 06/27/21 06/28/21 06/28/21 18:59 06:59 18:59 Intake Total 121.947 Output Total 200 200 Balance -78.053 -200 Weight 77 kg Intake: Intake, IV Titration 121.947 Amount Amiodarone 450 mg In 121.947 Dextrose 5% in Water 250 ml @ 0.5 MG/MIN 16.667 mls/hr IV .Q15H [facility] Rx#: [id number] Output: Urine 200 200 Other: Voiding Method Indwelling Catheter Indwelling Catheter Indwelling Catheter # Bowel Movements 1 - Labs CBC & Chem 7: 06/28/21 06:57 06/28/21 06:57 Labs: Abnormal Lab Results - Last 24 Hours (Table) 06/27/21 06/27/21 06/27/21 Range/Units 11:49 17:54 23:40 RBC (4.30-5.90) m/uL Hgb (13.0-17.5) gm/dL Hct (39.0-53.0) % MCV (80.0-100.0) fL MCH (25.0-35.0) pg Lymphocytes # (1.0-4.8) k/uL Macrocytosis PT (9.0-12.0) sec INR (<1.2) Sodium (137-145) mmol/L Carbon Dioxide (22-30) mmol/L BUN (9-20) mg/dL Creatinine (0.66-1.25) mg/dL Glucose (74-99) mg/dL POC Glucose (mg/dL) 111 H 109 H 106 H (75-99) mg/dL Total Protein (6.3-8.2) g/dL Albumin (3.5-5.0) g/dL 06/28/21 06/28/21 06/28/21 Range/Units 05:53 06:57 06:57 RBC 2.48 L (4.30-5.90) m/uL Hgb 9.2 L (13.0-17.5) gm/dL Hct 29.0 L (39.0-53.0) % MCV 117.0 H (80.0-100.0) fL MCH 37.2 H (25.0-35.0) pg Lymphocytes # 0.8 L (1.0-4.8) k/uL Macrocytosis Marked A PT 15.6 H (9.0-12.0) sec INR 1.6 H (<1.2) Sodium (137-145) mmol/L Carbon Dioxide (22-30) mmol/L BUN (9-20) mg/dL Creatinine (0.66-1.25) mg/dL Glucose (74-99) mg/dL POC Glucose (mg/dL) 126 H (75-99) mg/dL Total Protein (6.3-8.2) g/dL Albumin (3.5-5.0) g/dL 06/28/21 Range/Units 06:57 RBC (4.30-5.90) m/uL Hgb (13.0-17.5) gm/dL Hct (39.0-53.0) % MCV (80.0-100.0) fL MCH (25.0-35.0) pg Lymphocytes # (1.0-4.8) k/uL Macrocytosis PT (9.0-12.0) sec INR (<1.2) Sodium 136 L (137-145) mmol/L Carbon Dioxide 21 L (22-30) mmol/L BUN 25 H (9-20) mg/dL Creatinine 1.73 H (0.66-1.25) mg/dL Glucose 117 H (74-99) mg/dL POC Glucose (mg/dL) (75-99) mg/dL Total Protein 5.4 L (6.3-8.2) g/dL Albumin 2.6 L (3.5-5.0) g/dL <Yousuf Zacarias - Last Filed: 06/28/21 12:15> Subjective As above. Patient doing well today. Tolerating tube feeds. Bolster was loosened. We'll sign off. Please call if needed. Objective - Vital Signs Vital signs: Vital Signs Temp 98.6 F 06/28/21 11:19 Pulse 89 06/28/21 11:46 Resp 16 06/28/21 11:19 BP 109/74 06/28/21 11:19 Pulse Ox 96 06/28/21 11:19 Intake & Output 06/27/21 06/28/21 06/28/21 18:59 06:59 18:59 Intake Total 121.947 Output Total 200 200 Balance -78.053 -200 Weight 77 kg 77 kg Intake: Intake, IV Titration 121.947 Amount Amiodarone 450 mg In 121.947 Dextrose 5% in Water 250 ml @ 0.5 MG/MIN 16.667 mls/hr IV .Q15H [facility] Rx#: [id number] Output: Urine 200 200 Other: Voiding Method Indwelling Catheter Indwelling Catheter Indwelling Catheter # Bowel Movements 1 - Labs CBC & Chem 7: 06/28/21 06:57 06/28/21 06:57 Labs: Abnormal Lab Results - Last 24 Hours (Table) 06/27/21 06/27/21 06/28/21 Range/Units 17:54 23:40 05:53 RBC (4.30-5.90) m/uL Hgb (13.0-17.5) gm/dL Hct (39.0-53.0) % MCV (80.0-100.0) fL MCH (25.0-35.0) pg Lymphocytes # (1.0-4.8) k/uL Macrocytosis PT (9.0-12.0) sec INR (<1.2) Sodium (137-145) mmol/L Carbon Dioxide (22-30) mmol/L BUN (9-20) mg/dL Creatinine (0.66-1.25) mg/dL Glucose (74-99) mg/dL POC Glucose (mg/dL) 109 H 106 H 126 H (75-99) mg/dL Total Protein (6.3-8.2) g/dL Albumin (3.5-5.0) g/dL 06/28/21 06/28/21 06/28/21 Range/Units 06:57 06:57 06:57 RBC 2.48 L (4.30-5.90) m/uL Hgb 9.2 L (13.0-17.5) gm/dL Hct 29.0 L (39.0-53.0) % MCV 117.0 H (80.0-100.0) fL MCH 37.2 H (25.0-35.0) pg Lymphocytes # 0.8 L (1.0-4.8) k/uL Macrocytosis Marked A PT 15.6 H (9.0-12.0) sec INR 1.6 H (<1.2) Sodium 136 L (137-145) mmol/L Carbon Dioxide 21 L (22-30) mmol/L BUN 25 H (9-20) mg/dL Creatinine 1.73 H (0.66-1.25) mg/dL Glucose 117 H (74-99) mg/dL POC Glucose (mg/dL) (75-99) mg/dL Total Protein 5.4 L (6.3-8.2) g/dL Albumin 2.6 L (3.5-5.0) g/dL 06/28/21 Range/Units 12:01 RBC (4.30-5.90) m/uL Hgb (13.0-17.5) gm/dL Hct (39.0-53.0) % MCV (80.0-100.0) fL MCH (25.0-35.0) pg Lymphocytes # (1.0-4.8) k/uL Macrocytosis PT (9.0-12.0) sec INR (<1.2) Sodium (137-145) mmol/L Carbon Dioxide (22-30) mmol/L BUN (9-20) mg/dL Creatinine (0.66-1.25) mg/dL Glucose (74-99) mg/dL POC Glucose (mg/dL) 119 H (75-99) mg/dL Total Protein (6.3-8.2) g/dL Albumin (3.5-5.0) g/dL Assessment and Plan (1) Malnutrition of moderate degree Current Visit: Yes Status: Acute Code(s): E44.0 - MODERATE PROTEIN-CALORIE MALNUTRITION SNOMED Code(s): 733858811
[2021-06-28] MEDS ORDERED: METOPROLOL TARTRATE 25 MG TAB PO STA (11:35)
[2021-06-28 12:03] LABS: Glucose,Whole Blood 119 mg/dL (75-99)
--- NOTE | 2021-06-28 12:45 | P.PN ---
Subjective Progress Note Date: 06/28/21 Everett Juárez, is a 61-year-old male patient of Dr. Jama, who presented to [facility] emergency room after sustaining a fall, and complaining of generalized weakness and dizziness, patient is not clear whether he passed out or had any loss of consciousness. Patient was also complaining of chest pain in the EMS, EKG was within normal limits and troponin level was less than 0.01 He was evaluated in the emergency room vital examination on presentation revealed a temperature of 97.4 pulse 71 respirations 16 blood pressure 87/50 pulse ox 94% on room air Laboratory data revealed a white blood count of 8.6 hemoglobin 12.0 platelet count 338 INR 1.2 sodium 128 potassium 6.2 chloride 99 CO2 22 BUN 17 creatinine 2.01 lactic acid on presentation 2.1 urine analysis did not reveal evidence of significant infection. Testing in the emergency room revealed EKG revealed normal sinus rhythm normal EKG chest x-ray done in the emergency room revealed no acute lung disease there was prominent pulmonary leon that could be related to adenopathy. 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 Patient was admitted to medical floor for further evaluation and treatment. Past medical history is significant for history of hypertension, history of hyperlipidemia, history of chronic kidney disease, history of hsv-ywlijlb-zlmewtmhj diabetes mellitus, history of previous stroke, history of paroxysmal atrial fibrillation maintained on Coumadin, history of COPD, patient still smoke a few cigarettes per day, he denies alcohol use. On review of systems Patient is alert and responsive in no distress, he denies any complaints there is no fever or chills no headache or dizziness no chest pain no shortness of breath no palpitation no cough no nausea or vomiting no abdominal pain no diarrhea no blood in the stools no burning with urination no frequency or urgency and no hematuria, there is no weakness or numbness in any of the extremities no change in vision speech, gait was not tested. On 06/16/2021 patient was seen and examined on the telemetry floor he is alert and oriented 3 in no apparent distress he is still complaining of dizziness and weakness otherwise he denies any complaints there is no fever or chills no headache no chest pain no shortness of breath no cough no palpitation no nausea or vomiting no abdominal pain no diarrhea no blood in the stools no burning with urination no frequency or urgency and no hematuria there is no weakness or numbness in any of the extremities no change in vision or in speech On 06/17/2021 Patient was seen and examined on the medical floor, he is alert and oriented x 3 in no distress, he denies any complaints there is no fever or chills no headache or dizziness no chest pain no shortness of breath no palpitation no cough no nausea or vomiting no abdominal pain no diarrhea no blood in the stools no burning with urination no frequency or urgency and no hematuria, there is no weakness or numbness in any of the extremities no change in vision or speech, gait was not tested at this time, patient had significant orthostatic hypotension, this was discussed with cardiology, and dose of Catapres was adjusted down to 0.1 mg by mouth twice a day, patient will be reevaluated by cardiology in a.m. On 06/18/2021 patient was seen and examined on the medical floor, he is alert and oriented 3 in no distress, he is complaining of weakness otherwise he denies any specific complaints, there is no fever or chills no headache or dizziness no chest pain no shortness of breath no cough no nausea or vomiting no abdominal pain no diarrhea no blood in the stools no burning with urination no frequency or urgency no hematuria, there is no weakness or numbness in any of the extremities there is no change in vision speech or gait. Repeat orthostatic hypotension reveals significant drop while standing, cardiology are following, yesterday dose of Catapres was decreased to 0.1 by mouth twice daily, awaiting further recommendation from cardiology On 06/19/2021 patient was seen and examined on the medical floor, he is alert and oriented 3 in no distress, he is complaining of weakness otherwise he denies any specific complaints, he is still having significant orthostatic hypotension was significant drop in blood pressure when patient stands up. the re is no fever or chills no headache or dizziness no chest pain no shortness of breath no cough no nausea or vomiting no abdominal pain no diarrhea no blood in the stools no burning with urination no frequency or urgency no hematuria, there is no weakness or numbness in any of the extremities there is no change in vision speech or gait. Cardiology are following at this time Catapres is being discontinued and midodrine was added to medication regimen will continue to monitor closely. On 06/20/2021 patient was seen and examined on the medical floor he is alert and oriented 3 in no apparent distress, this morning he had an episode of palpitation and severe shortness of breath, EKG revealed SVT versus A. fib with RVR with a heart rate of 186 patient was transferred to [facility]. he was seen by [facility] rdiology and was started on IV amiodarone, chest x-ray was done today and was suspicious for right sided infiltrate suggestive of pneumonia patient is stating that he is having some cough with yellow sputum production WBC is low, patient was started on IV antibiotic Zosyn, and pulmonary consultation was requested. Patient denies any fever or chills no headache or dizziness no chest pain no nausea or vomiting no abdominal pain no diarrhea and no urinary symptoms. On 06/21/2021 patient was seen and examined on the medical floor he is complaining of cough otherwise he denies any complaints at this time there is no fever or chills no headache or dizziness no chest pain no shortness of breath no nausea or vomiting no abdominal pain no diarrhea no blood in the stools no burning with urination no frequency or urgency and no hematuria, yesterday patient had an episode of A. fib with RVR, he was started on IV amiodarone by cardiology and was transferred to telemetry floor, also chest x-ray revealed evidence of right basilar infiltrate, he was started on IV Zosyn pulmonary consultation was requested, sputum culture was ordered On 06/22/2021 Patient was seen and examined on the medical floor, he is alert and oriented x 3 in no distress, he is complaining of cough otherwise he denies any complaints there is no fever or chills no headache or dizziness no chest pain no shortness of breath no palpitation no cough no nausea or vomiting no abdominal pain no diarrhea no blood in the stools no burning with urination no frequency or urgency and no hematuria, there is no weakness or numbness in any of the extremities no change in vision speech or gait. Patient failed swallow evaluation with all food consistency today, he is kept nothing by mouth consultation for Dr. Zacarias for PEG tube placement was initiated. On 06/23/2021 patient is alert and oriented 3. Patient is resting comfortably in bed. Patient currently maintained on amiodarone drip per cardiology. Patient also maintained on IV Zosyn for aspiration pneumonia. Surgical services have been consulted for PEG tube placement. At this time pulmonary, cardiology, nephrology and surgical services following. Repeat labs have been ordered. Patient is still complaining of chest congestion and cough. Patient denies chest pain. Patient denies nausea vomiting or diarrhea. Patient denies any urinary burning or frequency. On 06/24/2021 Patient was seen and examined on the medical floor, he is alert and oriented x 3 in no distress, he denies any complaints there is no fever or chills no headache or dizziness no chest pain no shortness of breath no palpitation no cough no nausea or vomiting no abdominal pain no diarrhea no blood in the stools no burning with urination no frequency or urgency and no hematuria, there is no weakness or numbness in any of the extremities no change in vision speech, today INR is 5.3 Coumadin is on hold Will give 1 dose of vitamin K 2 mg IV patient is nothing by mouth , he is awaiting PEG tube placement On 06/24/2021 patient is alert and oriented 3 INR 1.2. Patient maintained on IV amiodarone. Tentative plans for PEG tube placement tomorrow per surgical services. . At this time patient remains with productive cough. Patient denies chest pain. Patient denies nausea vomiting or diarrhea. Patient denies any urinary burning or frequency On 06/26/2021 Patient was seen and examined on the medical floor, he is alert and oriented x 3 in no distress, he denies any complaints there is no fever or chills no headache or dizziness no chest pain no shortness of breath no palp itation no cough no nausea or vomiting no abdominal pain no diarrhea no blood in the stools no burning with urination no frequency or urgency and no hematuria, there is no weakness or numbness in any of the extremities no change in vision speech, patient received vitamin K his INR is low we are awaiting PEG tube placement On 06/26/2021 Patient was seen and examined on the medical floor, he is alert and oriented x 3 in no distress, he denies any complaints there is no fever or chills no headache or dizziness no chest pain no shortness of breath no palpitation no cough no nausea or vomiting no abdominal pain no diarrhea no blood in the stools no burning with urination no frequency or urgency and no hematuria, there is no weakness or numbness in any of the extremities no change in vision speech, Patient underwent PEG tube placement and was started on PEG tube feeding, will continue to follow closely will recheck chest x-ray in a.m. On 06/28/2021 patient alert and oriented 3. Repeat chest x-ray showing worsening interstitial edema with superimposed infiltrates versus atelectasis. Small pleural effusion. We'll reconsult pulmonary services. Patient remains on IV Zosyn. Patient does have PEG tube in place tube feeds running. At this time patient denies chest pain. Patient does report occasional cough with sputum production. Patient denies nausea vomiting or diarrhea. Patient denies any urinary burning or frequency Objective - Vital Signs Vital signs: Vital Signs Temp 98.6 F 06/28/21 11:19 Pulse 89 06/28/21 11:46 Resp 16 06/28/21 11:19 BP 109/74 06/28/21 11:19 Pulse Ox 96 06/28/21 11:19 Intake & Output 06/27/21 06/28/21 06/28/21 18:59 06:59 18:59 Intake Total 121.947 Output Total 200 200 Balance -78.053 -200 Weight 77 kg 77 kg Intake: Intake, IV Titration 121.947 Amount Amiodarone 450 mg In 121.947 Dextrose 5% in Water 250 ml @ 0.5 MG/MIN 16.667 mls/hr IV .Q15H [facility] Rx#: [id number] Output: Urine 200 200 Other: Voiding Method Indwelling Catheter Indwelling Catheter Indwelling Catheter # Bowel Movements 1 - Exam In general patient is alert and responsive in no distress HEENT head normocephalic and atraumatic Neck is supple no JVD no goiter no lymphadenopathy no carotid bruit Chest examination is clear to auscultation no crackles no wheezing Cardiac exam reveals regular heart sounds S1 and S2 no gallops no murmurs Abdomen is soft nontender no organomegaly with normal bowel sounds Extremity exam reveals no edema no cyanosis or clubbing Neurological examination reveals no gross focal deficits - Labs CBC & Chem 7: 06/28/21 06:57 06/28/21 06:57 Labs: Abnormal Lab Results - Last 24 Hours (Table) 06/27/21 06/27/21 06/28/21 Range/Units 17:54 23:40 05:53 RBC (4.30-5.90) m/uL Hgb (13.0-17.5) gm/dL Hct (39.0-53.0) % MCV (80.0-100.0) fL MCH (25.0-35.0) pg Lymphocytes # (1.0-4.8) k/uL Macrocytosis PT (9.0-12.0) sec INR (<1.2) Sodium (137-145) mmol/L Carbon Dioxide (22-30) mmol/L BUN (9-20) mg/dL Creatinine (0.66-1.25) mg/dL Glucose (74-99) mg/dL POC Glucose (mg/dL) 109 H 106 H 126 H (75-99) mg/dL Total Protein (6.3-8.2) g/dL Albumin (3.5-5.0) g/dL 06/28/21 06/28/21 06/28/21 Range/Units 06:57 06:57 06:57 RBC 2.48 L (4.30-5.90) m/uL Hgb 9.2 L (13.0-17.5) gm/dL Hct 29.0 L (39.0-53.0) % MCV 117.0 H (80.0-100.0) fL MCH 37.2 H (25.0-35.0) pg Lymphocytes # 0.8 L (1.0-4.8) k/uL Macrocytosis Marked A PT 15.6 H (9.0-12.0) sec INR 1.6 H (<1.2) Sodium 136 L (137-145) mmol/L Carbon Dioxide 21 L (22-30) mmol/L BUN 25 H (9-20) mg/dL Creatinine 1.73 H (0.66-1.25) mg/dL Glucose 117 H (74-99) mg/dL POC Glucose (mg/dL) (75-99) mg/dL Total Protein 5.4 L (6.3-8.2) g/dL Albumin 2.6 L (3.5-5.0) g/dL 06/28/21 Range/Units 12:01 RBC (4.30-5.90) m/uL Hgb (13.0-17.5) gm/dL Hct (39.0-53.0) % MCV (80.0-100.0) fL MCH (25.0-35.0) pg Lymphocytes # (1.0-4.8) k/uL Macrocytosis PT (9.0-12.0) sec INR (<1.2) Sodium (137-145) mmol/L Carbon Dioxide (22-30) mmol/L BUN (9-20) mg/dL Creatinine (0.66-1.25) mg/dL Glucose (74-99) mg/dL POC Glucose (mg/dL) 119 H (75-99) mg/dL Total Protein (6.3-8.2) g/dL Albumin (3.5-5.0) g/dL Assessment and Plan Plan: Fall at home with unclear history whether patient had a syncopal episode or loss of consciousness Episode of chest pain while in the ambulance Atrial fibrillation with rapid ventricular response. Patient started on amiodarone drip per cardiology Underlying history of paroxysmal atrial fibrillation, maintained on Coumadin h owever her INR was subtherapeutic at 1.2 on presentation, today INR is therapeutic at 2.7 Evidence of dehydration with electrolyte imbalance with hyponatremia and hyperkalemia Underlying history of chronic kidney disease Underlying history of [id number]-kqjzpnxzt diabetes mellitus, no evidence of hypoglycemia Underlying history of hypertension Previous history of cerebellar stroke. Right basilar infiltrate suggestive of pneumonia, patient started on IV Zosyn, pulmonary consultation requested Dysphagia. PEG tube placement per Dr. ordonez Supatherapeutic INR. Vitamin K given repeat INR 1.2. Coumadin on hold for possible PEG tube placement DVT prophylaxis Coumadin. GI prophylaxis Pepcid Pulmonary, cardiology, nephrology and surgical services following Patient maintained on IV Zosyn s/p peg tube placement Repeat labs ordered PT OT services consulted Social work consulted for possible ECF placement Pulmonary services reconsulted for worsening chest x-ray
[2021-06-28 17:53] LABS: Glucose,Whole Blood 146 mg/dL (75-99)
[2021-06-28] MEDS ORDERED: WARFARIN 1 MG TAB PO ONE (18:00)
--- NOTE | 2021-06-28 19:51 | PN ---
PROGRESS NOTE Patient is seen for followup for acute kidney injury. His renal function has been fairly stable. Serum creatinine this morning is slightly higher at 1.7, although his baseline creatinine about 1.5-1.6 mg/dL. Currently, patient is maintained on tube feedings. He denies any significant complaints. PHYSICAL EXAMINATION: Blood pressure this morning was about 109/74, heart rate of 90 per minute. He is afebrile. Examination of the heart S1, S2. Examination of the lungs, bilateral breath sounds are heard. Abdomen is soft, nontender. Examination lower extremities shows no significant edema. SHOP FIRER/FIREMAN exam shows patient is moving all 4 extremities. LAB: Show sodium 136, potassium 4.4, chloride 106, CO2 is 21, BUN 25, creatinine 1.73. ASSESSMENT: 1. Acute kidney injury on initial admission improved however serum creatinine today is slightly higher. Patient is maintained on tube feedings, which we will continue once the patient is receiving his goal tube feedings along with free water. His renal function should improve. He does not have any significant losses at this time. He has a Lara catheter with good urine output. 2. Chronic kidney disease stage 3. A baseline creatinine 1.5-1.8 mg/dL with solitary kidney, which is right kidney and previous history of obstructive uropathy. 3. Status post left nephrectomy. 4. Hyperkalemia. 5. Atrial fibrillation with RVR now with improved ventricular response. 6. Hyponatremia currently improved. PLAN: Continue with the tube feedings along with free water. Avoid hypotension. No nephrotoxic agents on board at this time. Repeat labs and continue with the midodrine. MMODL / IJN: [id number] /
[2021-06-28] MEDS: ATORVASTATIN 80 MG TAB PO SCH (21:59)
[2021-06-29] MEDS: PIPERACILLIN-TAZOBACTAM 3.375 GM in SODIUM CHLORIDE 0.9% 100 ML IVPB SCH ×4 (00:02→23:53)
[2021-06-29] MEDS: ACETAMINOPHEN TAB 325 MG TAB PO PRN ×3 (00:07→21:03)
[2021-06-29 00:34] LABS: Glucose,Whole Blood 114 mg/dL (75-99)
[2021-06-29 06:02] LABS: Glucose,Whole Blood 139 mg/dL (75-99)
[2021-06-29] MEDS: MIDODRINE 5 MG TAB PO SCH ×3 (06:32→16:34)
[2021-06-29] MEDS: SODIUM CHLORIDE 0.9% 1,000 ML IV SCH (06:34)
[2021-06-29] MEDS: SYMBICORT 160-4.5 MCG INHALER INHALATION SCH ×2 (07:26→19:02)
[2021-06-29] MEDS: IPRATROPIUM-ALBUTEROL 3 ML NEB INHALATION SCH ×4 (07:26→19:02)
[2021-06-29] MEDS: VENLAFAXINE HCL 75 MG TAB PO SCH ×2 (08:14→21:02)
[2021-06-29] MEDS: FOLIC ACID 1 MG TAB PO SCH (08:14)
[2021-06-29] MEDS: FAMOTIDINE 20 MG TAB PO SCH (08:15)
[2021-06-29] MEDS: AMIODARONE 200 MG TAB PO SCH ×2 (08:15→21:02)
[2021-06-29] MEDS: CYANOCOBALAMIN 500 MCG TAB PO SCH (08:15)
[2021-06-29] MEDS: METOPROLOL TARTRATE 25 MG TAB PO SCH ×3 (08:15→21:02)
[2021-06-29 09:29] LABS: INR 2.6 (<1.2); Prothrombin Time 24.7 sec (9.0-12.0)
[2021-06-29 09:50] LABS: Anisocytosis Slight; Basophils # (A) 0.1 k/uL (0-0.2); Basophils % (A) 1 %; Eosinophils % (A) 0 %; HCT 28.3 % (39.0-53.0); HGB 9.2 gm/dL (13.0-17.5); Lymphocytes # (A) 1.1 k/uL (1.0-4.8); Lymphocytes % (A) 11 %; MCH 36.8 pg (25.0-35.0); MCHC 32.5 g/dL (31.0-37.0); MCV 113.4 fL (80.0-100.0); Macrocytosis Marked; Mean Platelet Volume 8.6; Monocytes # (A) 0.4 k/uL (0-1.0); Monocytes % (A) 4 %; Neutrophils # (A) 8.1 k/uL (1.3-7.7); Neutrophils % (A) 82 %; Platelet Count 377 k/uL (150-450); RBC 2.49 m/uL (4.30-5.90); RDW 16.4 % (11.5-15.5); WBC 9.9 k/uL (3.8-10.6)
[2021-06-29] MEDS ORDERED: FUROSEMIDE 10 MG/ML 4 ML VIAL IV STA (10:05)
[2021-06-29 10:25] LABS: Albumin 2.6 g/dL (3.5-5.0); Calcium 9.2 mg/dL (8.4-10.2); Potassium 4.4 mmol/L (3.5-5.1); Total Protein 5.4 g/dL (6.3-8.2)
[2021-06-29 11:16] LABS: Glucose,Whole Blood 128 mg/dL (75-99)
--- NOTE | 2021-06-29 12:10 | PN ---
PROGRESS NOTE Patient is seen for followup for acute kidney injury. Currently maintained on PEG tube feeding. Patient was maintained on IV fluids. However, he has become more short of breath. Chest x-ray shows evidence of pulmonary vascular congestion and interstitial infiltrates. Serum creatinine has also been slowly increasing, and it is up to 2.2 today. The patient has an indwelling Lara catheter and 24-hour urine output documented only at about 400 mL. No complaints of chest pains PHYSICAL EXAMINATION: On examination today, blood pressure 119/67, heart rate 78 per minute. He is afebrile. EXAMINATION OF THE HEART: S1 and S2. EXAMINATION OF LUNGS: Bilateral breath sounds are heard with basal crackles. ABDOMEN: Soft, nontender. LOWER EXTREMITIES: Examination of lower extremities shows no significant edema. CATERING ASSISTANT EXAM: Grossly intact. LABS: Sodium 134, potassium 4.4, chloride 104, BUN 35, creatinine 2.25, hemoglobin 9.2 g/dL. ASSESSMENT: 1. Acute kidney injury with worsening renal function. Blood pressure remains borderline, although not significantly lower than before. Patient had initially been on IV fluids and then they were decreased and then restarted. I do not see any nephrotoxic medications at this time. I will have the nurse flush the Lara catheter, and if there is no obstruction in the catheter, this is most likely ongoing ATN. Currently patient is volume-overloaded. The fluids will be held and patient will be given a dose of Lasix. 2. Chronic kidney disease. Baseline creatinine about 1.5 to 1.8 mg/dL, NKF stage IIIB. 3. Hyponatremia, currently improved with saline. 4. Hypotension, maintained on midodrine. 5. Volume overload. Will decrease IV fluids and I will give the patient a dose of Lasix. We will also flush the Lara catheter. 6. Aspiration, status post PEG tube placement. 7. Atrial fibrillation with rapid ventricular response, now with controlled ventricular response. PLAN: Hold IV fluids. IV Lasix x1. Flush catheter. Repeat labs in a.m. MMODL / IJN: [id number] /
--- NOTE | 2021-06-29 13:48 | P.PN ---
Subjective Progress Note Date: 06/29/21 Everett Juárez, is a 61-year-old male patient of Dr. Jama, who presented to [facility] emergency room after sustaining a fall, and complaining of generalized weakness and dizziness, patient is not clear whether he passed out or had any loss of consciousness. Patient was also complaining of chest pain in the EMS, EKG was within normal limits and troponin level was less than 0.01 He was evaluated in the emergency room vital examination on presentation revealed a temperature of 97.4 pulse 71 respirations 16 blood pressure 87/50 pulse ox 94% on room air Laboratory data revealed a white blood count of 8.6 hemoglobin 12.0 platelet count 338 INR 1.2 sodium 128 potassium 6.2 chloride 99 CO2 22 BUN 17 creatinine 2.01 lactic acid on presentation 2.1 urine analysis did not reveal evidence of significant infection. Testing in the emergency room revealed EKG revealed normal sinus rhythm normal EKG chest x-ray done in the emergency room revealed no acute lung disease there was prominent pulmonary leon that could be related to adenopathy. 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 Patient was admitted to medical floor for further evaluation and treatment. Past medical history is significant for history of hypertension, history of hyperlipidemia, history of chronic kidney disease, history of tbz-nfzwaeo-rdnpesmnd diabetes mellitus, history of previous stroke, history of paroxysmal atrial fibrillation maintained on Coumadin, history of COPD, patient still smoke a few cigarettes per day, he denies alcohol use. On review of systems Patient is alert and responsive in no distress, he denies any complaints there is no fever or chills no headache or dizziness no chest pain no shortness of breath no palpitation no cough no nausea or vomiting no abdominal pain no diarrhea no blood in the stools no burning with urination no frequency or urgency and no hematuria, there is no weakness or numbness in any of the extremities no change in vision speech, gait was not tested. On 06/16/2021 patient was seen and examined on the telemetry floor he is alert and oriented 3 in no apparent distress he is still complaining of dizziness and weakness otherwise he denies any complaints there is no fever or chills no headache no chest pain no shortness of breath no cough no palpitation no nausea or vomiting no abdominal pain no diarrhea no blood in the stools no burning with urination no frequency or urgency and no hematuria there is no weakness or numbness in any of the extremities no change in vision or in speech On 06/17/2021 Patient was seen and examined on the medical floor, he is alert and oriented x 3 in no distress, he denies any complaints there is no fever or chills no headache or dizziness no chest pain no shortness of breath no palpitation no cough no nausea or vomiting no abdominal pain no diarrhea no blood in the stools no burning with urination no frequency or urgency and no hematuria, there is no weakness or numbness in any of the extremities no change in vision or speech, gait was not tested at this time, patient had significant orthostatic hypotension, this was discussed with cardiology, and dose of Catapres was adjusted down to 0.1 mg by mouth twice a day, patient will be reevaluated by cardiology in a.m. On 06/18/2021 patient was seen and examined on the medical floor, he is alert and oriented 3 in no distress, he is complaining of weakness otherwise he denies any specific complaints, there is no fever or chills no headache or dizziness no chest pain no shortness of breath no cough no nausea or vomiting no abdominal pain no diarrhea no blood in the stools no burning with urination no frequency or urgency no hematuria, there is no weakness or numbness in any of the extremities there is no change in vision speech or gait. Repeat orthostatic hypotension reveals significant drop while standing, cardiology are following, yesterday dose of Catapres was decreased to 0.1 by mouth twice daily, awaiting further recommendation from cardiology On 06/19/2021 patient was seen and examined on the medical floor, he is alert and oriented 3 in no distress, he is complaining of weakness otherwise he denies any specific complaints, he is still having significant orthostatic hypotension was significant drop in blood pressure when patient stands up. the re is no fever or chills no headache or dizziness no chest pain no shortness of breath no cough no nausea or vomiting no abdominal pain no diarrhea no blood in the stools no burning with urination no frequency or urgency no hematuria, there is no weakness or numbness in any of the extremities there is no change in vision speech or gait. Cardiology are following at this time Catapres is being discontinued and midodrine was added to medication regimen will continue to monitor closely. On 06/20/2021 patient was seen and examined on the medical floor he is alert and oriented 3 in no apparent distress, this morning he had an episode of palpitation and severe shortness of breath, EKG revealed SVT versus A. fib with RVR with a heart rate of 186 patient was transferred to [facility]. he was seen by [facility] rdiology and was started on IV amiodarone, chest x-ray was done today and was suspicious for right sided infiltrate suggestive of pneumonia patient is stating that he is having some cough with yellow sputum production WBC is low, patient was started on IV antibiotic Zosyn, and pulmonary consultation was requested. Patient denies any fever or chills no headache or dizziness no chest pain no nausea or vomiting no abdominal pain no diarrhea and no urinary symptoms. On 06/21/2021 patient was seen and examined on the medical floor he is complaining of cough otherwise he denies any complaints at this time there is no fever or chills no headache or dizziness no chest pain no shortness of breath no nausea or vomiting no abdominal pain no diarrhea no blood in the stools no burning with urination no frequency or urgency and no hematuria, yesterday patient had an episode of A. fib with RVR, he was started on IV amiodarone by cardiology and was transferred to telemetry floor, also chest x-ray revealed evidence of right basilar infiltrate, he was started on IV Zosyn pulmonary consultation was requested, sputum culture was ordered On 06/22/2021 Patient was seen and examined on the medical floor, he is alert and oriented x 3 in no distress, he is complaining of cough otherwise he denies any complaints there is no fever or chills no headache or dizziness no chest pain no shortness of breath no palpitation no cough no nausea or vomiting no abdominal pain no diarrhea no blood in the stools no burning with urination no frequency or urgency and no hematuria, there is no weakness or numbness in any of the extremities no change in vision speech or gait. Patient failed swallow evaluation with all food consistency today, he is kept nothing by mouth consultation for Dr. Zacarias for PEG tube placement was initiated. On 06/23/2021 patient is alert and oriented 3. Patient is resting comfortably in bed. Patient currently maintained on amiodarone drip per cardiology. Patient also maintained on IV Zosyn for aspiration pneumonia. Surgical services have been consulted for PEG tube placement. At this time pulmonary, cardiology, nephrology and surgical services following. Repeat labs have been ordered. Patient is still complaining of chest congestion and cough. Patient denies chest pain. Patient denies nausea vomiting or diarrhea. Patient denies any urinary burning or frequency. On 06/24/2021 Patient was seen and examined on the medical floor, he is alert and oriented x 3 in no distress, he denies any complaints there is no fever or chills no headache or dizziness no chest pain no shortness of breath no palpitation no cough no nausea or vomiting no abdominal pain no diarrhea no blood in the stools no burning with urination no frequency or urgency and no hematuria, there is no weakness or numbness in any of the extremities no change in vision speech, today INR is 5.3 Coumadin is on hold Will give 1 dose of vitamin K 2 mg IV patient is nothing by mouth , he is awaiting PEG tube placement On 06/24/2021 patient is alert and oriented 3 INR 1.2. Patient maintained on IV amiodarone. Tentative plans for PEG tube placement tomorrow per surgical services. . At this time patient remains with productive cough. Patient denies chest pain. Patient denies nausea vomiting or diarrhea. Patient denies any urinary burning or frequency On 06/26/2021 Patient was seen and examined on the medical floor, he is alert and oriented x 3 in no distress, he denies any complaints there is no fever or chills no headache or dizziness no chest pain no shortness of breath no palp itation no cough no nausea or vomiting no abdominal pain no diarrhea no blood in the stools no burning with urination no frequency or urgency and no hematuria, there is no weakness or numbness in any of the extremities no change in vision speech, patient received vitamin K his INR is low we are awaiting PEG tube placement On 06/27/2021 Patient was seen and examined on the medical floor, he is alert and oriented x 3 in no distress, he denies any complaints there is no fever or chills no headache or dizziness no chest pain no shortness of breath no palpitation no cough no nausea or vomiting no abdominal pain no diarrhea no blood in the stools no burning with urination no frequency or urgency and no hematuria, there is no weakness or numbness in any of the extremities no change in vision speech, Patient underwent PEG tube placement and was started on PEG tube feeding, will continue to follow closely will recheck chest x-ray in a.m. On 06/28/2021 patient alert and oriented 3. Repeat chest x-ray showing worsening interstitial edema with superimposed infiltrates versus atelectasis. Small pleural effusion. We'll reconsult pulmonary services. Patient remains on IV Zosyn. Patient does have PEG tube in place tube feeds running. At this time patient denies chest pain. Patient does report occasional cough with sputum production. Patient denies nausea vomiting or diarrhea. Patient denies any urinary burning or frequency. On 06/29/2021 patient was seen and examined on the telemetry floor, he is alert and oriented 3 in no distress, he is still complaining of shortness of breath and occasional cough, his chest x-ray done yesterday reveals worsening of the pulmonary infiltrate, he is still maintained on IV Zosyn, and is maintained on oxygen at 5 L via nasal cannula, pulmonary consultation was resubmitted yesterday for reevaluation and further advice regarding antibiotic treatment and further management of his pulmonary consultation, at this time patient is not ready yet for discharge to a rehab center, otherwise he denies any complaints there is no fever or chills no chest pain no nausea or vomiting no abdominal pain no diarrhea no blood in the stools and no urinary symptoms PEG tube site is clear Objective - Vital Signs Vital signs: Vital Signs Temp 97.7 F 06/29/21 10:26 Pulse 68 06/29/21 10:26 Resp 16 06/29/21 10:26 BP 119/67 06/29/21 10:26 Pulse Ox 92 L 06/29/21 10:26 Intake & Output 06/28/21 06/29/21 06/29/21 18:59 06:59 18:59 Intake Total 0 0 Output Total 475 Balance 0 -475 0 Weight 77 kg 76 kg Intake: Oral 0 0 Output: Urine 475 Other: Voiding Method Indwelling Catheter Indwelling Catheter Indwelling Catheter # Bowel Movements 1 - Exam In general patient is alert and responsive in no distress HEENT head normocephalic and atraumatic Neck is supple no JVD no goiter no lymphadenopathy no carotid bruit Chest examination is clear to auscultation no crackles no wheezing Cardiac exam reveals regular heart sounds S1 and S2 no gallops no murmurs Abdomen is soft nontender no organomegaly with normal bowel sounds Extremity exam reveals no edema no cyanosis or clubbing Neurological examination reveals no gross focal deficits - Labs CBC & Chem 7: 06/29/21 08:55 06/29/21 08:55 Labs: Abnormal Lab Results - Last 24 Hours (Table) 06/28/21 06/29/21 06/29/21 Range/Units 17:52 00:32 06:00 RBC (4.30-5.90) m/uL Hgb (13.0-17.5) gm/dL Hct (39.0-53.0) % MCV (80.0-100.0) fL MCH (25.0-35.0) pg RDW (11.5-15.5) % Neutrophils # (1.3-7.7) k/uL Macrocytosis PT (9.0-12.0) sec INR (<1.2) Sodium (137-145) mmol/L BUN (9-20) mg/dL Creatinine (0.66-1.25) mg/dL Glucose (74-99) mg/dL POC Glucose (mg/dL) 146 H 114 H 139 H (75-99) mg/dL AST (17-59) U/L ALT (4-49) U/L Total Protein (6.3-8.2) g/dL Albumin (3.5-5.0) g/dL 06/29/21 06/29/21 06/29/21 Range/Units 08:55 08:55 08:55 RBC 2.49 L (4.30-5.90) m/uL Hgb 9.2 L (13.0-17.5) gm/dL Hct 28.3 L (39.0-53.0) % MCV 113.4 H (80.0-100.0) fL MCH 36.8 H (25.0-35.0) pg RDW 16.4 H (11.5-15.5) % Neutrophils # 8.1 H (1.3-7.7) k/uL Macrocytosis Marked A PT 24.7 H (9.0-12.0) sec INR 2.6 H (<1.2) Sodium 134 L (137-145) mmol/L BUN 35 H (9-20) mg/dL Creatinine 2.25 H (0.66-1.25) mg/dL Glucose 136 H (74-99) mg/dL POC Glucose (mg/dL) (75-99) mg/dL AST 2627 H (17-59) U/L ALT 727 H (4-49) U/L Total Protein 5.4 L (6.3-8.2) g/dL Albumin 2.6 L (3.5-5.0) g/dL 06/29/21 Range/Units 11:15 RBC (4.30-5.90) m/uL Hgb (13.0-17.5) gm/dL Hct (39.0-53.0) % MCV (80.0-100.0) fL MCH (25.0-35.0) pg RDW (11.5-15.5) % Neutrophils # (1.3-7.7) k/uL Macrocytosis PT (9.0-12.0) sec INR (<1.2) Sodium (137-145) mmol/L BUN (9-20) mg/dL Creatinine (0.66-1.25) mg/dL Glucose (74-99) mg/dL POC Glucose (mg/dL) 128 H (75-99) mg/dL AST (17-59) U/L ALT (4-49) U/L Total Protein (6.3-8.2) g/dL Albumin (3.5-5.0) g/dL Assessment and Plan Plan: Fall at home with unclear history whether patient had a syncopal episode or loss of consciousness Episode of chest pain while in the ambulance Atrial fibrillation with rapid ventricular response. Patient started on amiodarone drip per cardiology Underlying history of paroxysmal atrial fibrillation, maintained on Coumadin h owever her INR was subtherapeutic at 1.2 on presentation, today INR is therapeutic at 2.7 Evidence of dehydration with electrolyte imbalance with hyponatremia and hyperkalemia Underlying history of chronic kidney disease Underlying history of vri-mzssxhb-dtirzsmxa diabetes mellitus, no evidence of hypoglycemia Underlying history of hypertension Previous history of cerebellar stroke. Right basilar infiltrate suggestive of pneumonia, patient started on IV Zosyn, pulmonary consultation requested Dysphagia. PEG tube placement per Dr. ordonez Supatherapeutic INR. Vitamin K given repeat INR 1.2. Coumadin on hold for possible PEG tube placement DVT prophylaxis Coumadin. GI prophylaxis Pepcid Pulmonary, cardiology, nephrology and surgical services following Patient maintained on IV Zosyn s/p peg tube placement Repeat labs ordered PT OT services consulted Social work consulted for possible ECF placement Pulmonary services reconsulted for worsening chest x-ray
[2021-06-29 17:54] LABS: Glucose,Whole Blood 136 mg/dL (75-99)
[2021-06-29] MEDS ORDERED: WARFARIN 0.5 MG TAB PO ONE (18:00)
[2021-06-29] MEDS: ATORVASTATIN 80 MG TAB PO SCH (21:03)
[2021-06-30 00:11] LABS: Glucose,Whole Blood 132 mg/dL (75-99)
[2021-06-30 06:15] LABS: Glucose,Whole Blood 133 mg/dL (75-99)
[2021-06-30] MEDS: MIDODRINE 5 MG TAB PO SCH ×3 (06:42→16:33)
[2021-06-30] MEDS: ACETAMINOPHEN TAB 325 MG TAB PO PRN (06:43)
[2021-06-30] MEDS: SYMBICORT 160-4.5 MCG INHALER INHALATION SCH ×2 (07:57→19:04)
[2021-06-30] MEDS: IPRATROPIUM-ALBUTEROL 3 ML NEB INHALATION SCH ×4 (07:57→19:04)
[2021-06-30 08:05] LABS: INR 2.2 (<1.2); Prothrombin Time 21.3 sec (9.0-12.0)
[2021-06-30] MEDS: PIPERACILLIN-TAZOBACTAM 3.375 GM in SODIUM CHLORIDE 0.9% 100 ML IVPB SCH ×3 (08:30→23:11)
[2021-06-30] MEDS: AMIODARONE 200 MG TAB PO SCH ×2 (08:30→21:04)
[2021-06-30] MEDS: METOPROLOL TARTRATE 25 MG TAB PO SCH ×3 (08:31→21:04)
[2021-06-30] MEDS: CYANOCOBALAMIN 500 MCG TAB PO SCH (08:31)
[2021-06-30] MEDS: FAMOTIDINE 20 MG TAB PO SCH (08:31)
[2021-06-30] MEDS: FOLIC ACID 1 MG TAB PO SCH (08:31)
[2021-06-30] MEDS: VENLAFAXINE HCL 75 MG TAB PO SCH ×2 (08:31→21:04)
[2021-06-30 08:38] LABS: Basophils # (A) 0.1 k/uL (0-0.2); Basophils % (A) 1 %; Eosinophils # (A) 0.1 k/uL (0-0.7); Eosinophils % (A) 2 %; HCT 30.3 % (39.0-53.0); HGB 9.5 gm/dL (13.0-17.5); Hypochromasia Slight; Lymphocytes % (A) 10 %; MCH 36.2 pg (25.0-35.0); MCHC 31.3 g/dL (31.0-37.0); MCV 115.6 fL (80.0-100.0); Macrocytosis Marked; Mean Platelet Volume 8.3; Monocytes # (A) 0.5 k/uL (0-1.0); Monocytes % (A) 5 %; Neutrophils % (A) 81 %; Platelet Count 353 k/uL (150-450); RBC 2.62 m/uL (4.30-5.90); RDW 15.6 % (11.5-15.5); WBC 9.9 k/uL (3.8-10.6)
[2021-06-30 08:42] LABS: Albumin 2.6 g/dL (3.5-5.0); Calcium 9.4 mg/dL (8.4-10.2); Potassium 4.2 mmol/L (3.5-5.1); Total Protein 5.5 g/dL (6.3-8.2)
--- NOTE | 2021-06-30 09:35 | P.PN ---
Subjective Progress Note Date: 06/30/21 Everett Juárez, is a 61-year-old male patient of Dr. Jama, who presented to [facility] emergency room after sustaining a fall, and complaining of generalized weakness and dizziness, patient is not clear whether he passed out or had any loss of consciousness. Patient was also complaining of chest pain in the EMS, EKG was within normal limits and troponin level was less than 0.01 He was evaluated in the emergency room vital examination on presentation revealed a temperature of 97.4 pulse 71 respirations 16 blood pressure 87/50 pulse ox 94% on room air Laboratory data revealed a white blood count of 8.6 hemoglobin 12.0 platelet count 338 INR 1.2 sodium 128 potassium 6.2 chloride 99 CO2 22 BUN 17 creatinine 2.01 lactic acid on presentation 2.1 urine analysis did not reveal evidence of significant infection. Testing in the emergency room revealed EKG revealed normal sinus rhythm normal EKG chest x-ray done in the emergency room revealed no acute lung disease there was prominent pulmonary leon that could be related to adenopathy. 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 Patient was admitted to medical floor for further evaluation and treatment. Past medical history is significant for history of hypertension, history of hyperlipidemia, history of chronic kidney disease, history of [id number] diabetes mellitus, history of previous stroke, history of paroxysmal atrial fibrillation maintained on Coumadin, history of COPD, patient still smoke a few cigarettes per day, he denies alcohol use. On review of systems Patient is alert and responsive in no distress, he denies any complaints there is no fever or chills no headache or dizziness no chest pain no shortness of breath no palpitation no cough no nausea or vomiting no abdominal pain no diarrhea no blood in the stools no burning with urination no frequency or urgency and no hematuria, there is no weakness or numbness in any of the extremities no change in vision speech, gait was not tested. On 06/16/2021 patient was seen and examined on the telemetry floor he is alert and oriented 3 in no apparent distress he is still complaining of dizziness and weakness otherwise he denies any complaints there is no fever or chills no headache no chest pain no shortness of breath no cough no palpitation no nausea or vomiting no abdominal pain no diarrhea no blood in the stools no burning with urination no frequency or urgency and no hematuria there is no weakness or numbness in any of the extremities no change in vision or in speech On 06/17/2021 Patient was seen and examined on the medical floor, he is alert and oriented x 3 in no distress, he denies any complaints there is no fever or chills no headache or dizziness no chest pain no shortness of breath no palpitation no cough no nausea or vomiting no abdominal pain no diarrhea no blood in the stools no burning with urination no frequency or urgency and no hematuria, there is no weakness or numbness in any of the extremities no change in vision or speech, gait was not tested at this time, patient had significant orthostatic hypotension, this was discussed with cardiology, and dose of Catapres was adjusted down to 0.1 mg by mouth twice a day, patient will be reevaluated by cardiology in a.m. On 06/18/2021 patient was seen and examined on the medical floor, he is alert and oriented 3 in no distress, he is complaining of weakness otherwise he denies any specific complaints, there is no fever or chills no headache or dizziness no chest pain no shortness of breath no cough no nausea or vomiting no abdominal pain no diarrhea no blood in the stools no burning with urination no frequency or urgency no hematuria, there is no weakness or numbness in any of the extremities there is no change in vision speech or gait. Repeat orthostatic hypotension reveals significant drop while standing, cardiology are following, yesterday dose of Catapres was decreased to 0.1 by mouth twice daily, awaiting further recommendation from cardiology On 06/19/2021 patient was seen and examined on the medical floor, he is alert and oriented 3 in no distress, he is complaining of weakness otherwise he denies any specific complaints, he is still having significant orthostatic hypotension was significant drop in blood pressure when patient stands up. the re is no fever or chills no headache or dizziness no chest pain no shortness of breath no cough no nausea or vomiting no abdominal pain no diarrhea no blood in the stools no burning with urination no frequency or urgency no hematuria, there is no weakness or numbness in any of the extremities there is no change in vision speech or gait. Cardiology are following at this time Catapres is being discontinued and midodrine was added to medication regimen will continue to monitor closely. On 06/20/2021 patient was seen and examined on the medical floor he is alert and oriented 3 in no apparent distress, this morning he had an episode of palpitation and severe shortness of breath, EKG revealed SVT versus A. fib with RVR with a heart rate of 186 patient was transferred to [facility]. he was seen by ca rdiology and was started on IV amiodarone, chest x-ray was done today and was suspicious for right sided infiltrate suggestive of pneumonia patient is stating that he is having some cough with yellow sputum production WBC is low, patient was started on IV antibiotic Zosyn, and pulmonary consultation was requested. Patient denies any fever or chills no headache or dizziness no chest pain no nausea or vomiting no abdominal pain no diarrhea and no urinary symptoms. On 06/21/2021 patient was seen and examined on the medical floor he is complaining of cough otherwise he denies any complaints at this time there is no fever or chills no headache or dizziness no chest pain no shortness of breath no nausea or vomiting no abdominal pain no diarrhea no blood in the stools no burning with urination no frequency or urgency and no hematuria, yesterday patient had an episode of A. fib with RVR, he was started on IV amiodarone by cardiology and was transferred to telemetry floor, also chest x-ray revealed evidence of right basilar infiltrate, he was started on IV Zosyn pulmonary consultation was requested, sputum culture was ordered On 06/22/2021 Patient was seen and examined on the medical floor, he is alert and oriented x 3 in no distress, he is complaining of cough otherwise he denies any complaints there is no fever or chills no headache or dizziness no chest pain no shortness of breath no palpitation no cough no nausea or vomiting no abdominal pain no diarrhea no blood in the stools no burning with urination no frequency or urgency and no hematuria, there is no weakness or numbness in any of the extremities no change in vision speech or gait. Patient failed swallow evaluation with all food consistency today, he is kept nothing by mouth consultation for Dr. Zacarias for PEG tube placement was initiated. On 06/23/2021 patient is alert and oriented 3. Patient is resting comfortably in bed. Patient currently maintained on amiodarone drip per cardiology. Patient also maintained on IV Zosyn for aspiration pneumonia. Surgical services have been consulted for PEG tube placement. At this time pulmonary, cardiology, nephrology and surgical services following. Repeat labs have been ordered. Patient is still complaining of chest congestion and cough. Patient denies chest pain. Patient denies nausea vomiting or diarrhea. Patient denies any urinary burning or frequency. On 06/24/2021 Patient was seen and examined on the medical floor, he is alert and oriented x 3 in no distress, he denies any complaints there is no fever or chills no headache or dizziness no chest pain no shortness of breath no palpitation no cough no nausea or vomiting no abdominal pain no diarrhea no blood in the stools no burning with urination no frequency or urgency and no hematuria, there is no weakness or numbness in any of the extremities no change in vision speech, today INR is 5.3 Coumadin is on hold Will give 1 dose of vitamin K 2 mg IV patient is nothing by mouth , he is awaiting PEG tube placement On 06/24/2021 patient is alert and oriented 3 INR 1.2. Patient maintained on IV amiodarone. Tentative plans for PEG tube placement tomorrow per surgical services. . At this time patient remains with productive cough. Patient denies chest pain. Patient denies nausea vomiting or diarrhea. Patient denies any urinary burning or frequency On 06/26/2021 Patient was seen and examined on the medical floor, he is alert and oriented x 3 in no distress, he denies any complaints there is no fever or chills no headache or dizziness no chest pain no shortness of breath no palp itation no cough no nausea or vomiting no abdominal pain no diarrhea no blood in the stools no burning with urination no frequency or urgency and no hematuria, there is no weakness or numbness in any of the extremities no change in vision speech, patient received vitamin K his INR is low we are awaiting PEG tube placement On 06/27/2021 Patient was seen and examined on the medical floor, he is alert and oriented x 3 in no distress, he denies any complaints there is no fever or chills no headache or dizziness no chest pain no shortness of breath no palpitation no cough no nausea or vomiting no abdominal pain no diarrhea no blood in the stools no burning with urination no frequency or urgency and no hematuria, there is no weakness or numbness in any of the extremities no change in vision speech, Patient underwent PEG tube placement and was started on PEG tube feeding, will continue to follow closely will recheck chest x-ray in a.m. On 06/28/2021 patient alert and oriented 3. Repeat chest x-ray showing worsening interstitial edema with superimposed infiltrates versus atelectasis. Small pleural effusion. We'll reconsult pulmonary services. Patient remains on IV Zosyn. Patient does have PEG tube in place tube feeds running. At this time patient denies chest pain. Patient does report occasional cough with sputum production. Patient denies nausea vomiting or diarrhea. Patient denies any urinary burning or frequency. On 06/29/2021 patient was seen and examined on the telemetry floor, he is alert and oriented 3 in no distress, he is still complaining of shortness of breath and occasional cough, his chest x-ray done yesterday reveals worsening of the pulmonary infiltrate, he is still maintained on IV Zosyn, and is maintained on oxygen at 5 L via nasal cannula, pulmonary consultation was resubmitted yesterday for reevaluation and further advice regarding antibiotic treatment and further management of his pulmonary consultation, at this time patient is not ready yet for discharge to a rehab center, otherwise he denies any complaints there is no fever or chills no chest pain no nausea or vomiting no abdominal pain no diarrhea no blood in the stools and no urinary symptoms PEG tube site is clear. 06/30/2021 patient alert and oriented 3. Patient still having significant sputum production. Will order repeat sputum sample consults infectious disease services. Patient's liver enzymes also significantly elevated. Malu HAYWOOD'christine. Liver ultrasound will be ordered. Patient denies chest pain. Patient denies nausea vomiting or diarrhea. Patient denies any urinary burning or frequency Objective - Vital Signs Vital signs: Vital Signs Temp 97.8 F 06/30/21 07:48 Pulse 88 06/30/21 08:09 Resp 18 06/30/21 07:48 BP 125/72 06/30/21 07:48 Pulse Ox 95 06/30/21 07:48 Intake & Output 06/29/21 06/30/21 06/30/21 18:59 06:59 18:59 Intake Total 0 Output Total 725 600 Balance -725 -600 Weight 78 kg Intake: Oral 0 Output: Urine 725 600 Other: Voiding Method Indwelling Catheter Indwelling Catheter Indwelling Catheter # Bowel Movements 1 1 - Exam In general patient is alert and responsive in no distress HEENT head normocephalic and atraumatic Neck is supple no JVD no goiter no lymphadenopathy no carotid bruit Chest examination is clear to auscultation no crackles no wheezing Cardiac exam reveals regular heart sounds S1 and S2 no gallops no murmurs Abdomen is soft nontender no organomegaly with normal bowel sounds Extremity exam reveals no edema no cyanosis or clubbing Neurological examination reveals no gross focal deficits - Labs CBC & Chem 7: 06/30/21 07:11 06/30/21 07:11 Labs: Abnormal Lab Results - Last 24 Hours (Table) 06/29/21 06/29/21 06/29/21 Range/Units 08:55 08:55 08:55 RBC 2.49 L (4.30-5.90) m/uL Hgb 9.2 L (13.0-17.5) gm/dL Hct 28.3 L (39.0-53.0) % MCV 113.4 H (80.0-100.0) fL MCH 36.8 H (25.0-35.0) pg RDW 16.4 H (11.5-15.5) % Neutrophils # 8.1 H (1.3-7.7) k/uL Macrocytosis Marked A PT 24.7 H (9.0-12.0) sec INR 2.6 H (<1.2) Sodium 134 L (137-145) mmol/L BUN 35 H (9-20) mg/dL Creatinine 2.25 H (0.66-1.25) mg/dL Glucose 136 H (74-99) mg/dL POC Glucose (mg/dL) (75-99) mg/dL AST 2627 H (17-59) U/L ALT 727 H (4-49) U/L Total Protein 5.4 L (6.3-8.2) g/dL Albumin 2.6 L (3.5-5.0) g/dL 06/29/21 06/29/21 06/30/21 Range/Units 11:15 17:52 00:10 RBC (4.30-5.90) m/uL Hgb (13.0-17.5) gm/dL Hct (39.0-53.0) % MCV (80.0-100.0) fL MCH (25.0-35.0) pg RDW (11.5-15.5) % Neutrophils # (1.3-7.7) k/uL Macrocytosis PT (9.0-12.0) sec INR (<1.2) Sodium (137-145) mmol/L BUN (9-20) mg/dL Creatinine (0.66-1.25) mg/dL Glucose (74-99) mg/dL POC Glucose (mg/dL) 128 H 136 H 132 H (75-99) mg/dL AST (17-59) U/L ALT (4-49) U/L Total Protein (6.3-8.2) g/dL Albumin (3.5-5.0) g/dL 06/30/21 06/30/21 06/30/21 Range/Units 06:14 07:11 07:11 RBC 2.62 L (4.30-5.90) m/uL Hgb 9.5 L (13.0-17.5) gm/dL Hct 30.3 L (39.0-53.0) % MCV 115.6 H (80.0-100.0) fL MCH 36.2 H (25.0-35.0) pg RDW 15.6 H (11.5-15.5) % Neutrophils # 8.0 H (1.3-7.7) k/uL Macrocytosis Marked A PT 21.3 H (9.0-12.0) sec INR 2.2 H (<1.2) Sodium (137-145) mmol/L BUN (9-20) mg/dL Creatinine (0.66-1.25) mg/dL Glucose (74-99) mg/dL POC Glucose (mg/dL) 133 H (75-99) mg/dL AST (17-59) U/L ALT (4-49) U/L Total Protein (6.3-8.2) g/dL Albumin (3.5-5.0) g/dL 06/30/21 Range/Units 07:11 RBC (4.30-5.90) m/uL Hgb (13.0-17.5) gm/dL Hct (39.0-53.0) % MCV (80.0-100.0) fL MCH (25.0-35.0) pg RDW (11.5-15.5) % Neutrophils # (1.3-7.7) k/uL Macrocytosis PT (9.0-12.0) sec INR (<1.2) Sodium 136 L (137-145) mmol/L BUN 39 H (9-20) mg/dL Creatinine 2.27 H (0.66-1.25) mg/dL Glucose 132 H (74-99) mg/dL POC Glucose (mg/dL) (75-99) mg/dL AST (17-59) U/L ALT 697 H (4-49) U/L Total Protein 5.5 L (6.3-8.2) g/dL Albumin 2.6 L (3.5-5.0) g/dL Assessment and Plan Plan: Fall at home with unclear history whether patient had a syncopal episode or loss of consciousness Episode of chest pain while in the ambulance Atrial fibrillation with rapid ventricular response. Patient started on amio darone drip per cardiology Underlying history of paroxysmal atrial fibrillation, maintained on Coumadin however her INR was subtherapeutic at 1.2 on presentation, today INR is therapeutic at 2.7 Evidence of dehydration with electrolyte imbalance with hyponatremia and hyperkalemia Underlying history of chronic kidney disease Underlying history of [id number] diabetes mellitus, no evidence of hypoglycemia Underlying history of hypertension Previous history of cerebellar stroke. Right basilar infiltrate suggestive of pneumonia, patient started on IV Zosyn, pulmonary consultation requested Dysphagia. PEG tube placement per Dr. ordonez Elevated liver enzymes. Lipitor DC'd. Liver ultrasound ordered DVT prophylaxis Coumadin. GI prophylaxis Pepcid Pulmonary, cardiology, nephrology and surgical services following Patient maintained on IV Zosyn s/p peg tube placement Repeat labs ordered PT OT services consulted Social work consulted for possible ECF placement Pulmonary services reconsulted for worsening chest x-ray Infectious disease consulted for worsening pneumonia
--- NOTE | 2021-06-30 10:54 | US ---
EXAMINATION TYPE: US liver DATE OF EXAM: 06/30/2021 COMPARISON: CT abdomen and pelvis November 14, 2020 CLINICAL HISTORY: elevate liver enzymes. Patient has feeding tube. Previous CT showed gallstones. EXAM MEASUREMENTS: Liver Length: 19.0 cm Gallbladder Wall: 0.2 cm CBD: 0.7 cm Right Kidney: 11.8 x 5.1 x 5.6 cm Pancreas: head and tail obscured by bowel gas Liver: Enlarged in size Gallbladder: Echogenic foci Evidence for sonographic Mariano's sign: neg CBD: wnl Right Kidney: No hydronephrosis or masses seen, inferior pole obscured by overlying bowel gas Visualized pancreas heterogeneous in appearance without ductal dilatation. Portions of head and tail are scattered by overlying bowel gas. Visualized liver is heterogeneously hyperechoic with prominent right hepatic lobe. No surrounding ascites. No new intrahepatic biliary dilatation. Evaluation for f ocal masses suboptimal due to the heterogeneity. Common bile duct minimally enlarged but more promine nt from November CT. Shadowing mobile gallstones noted. No surrounding fluid or wall thickening. No r ight-sided hydronephrosis. IMPRESSION: More prominent and new minimal extrahepatic biliary dilatation in patient with known gall stones, advise ERCP or MRCP to assess for possible CBD stone.
[2021-06-30 11:31] LABS: Glucose,Whole Blood 124 mg/dL (75-99)
--- NOTE | 2021-06-30 16:50 | PN ---
PROGRESS NOTE Patient is seen for followup for acute kidney injury and hyponatremia. The patient also has underlying chronic kidney disease. His baseline creatinine is about 1.5 to 1.7 mg/dL. Lately patient's serum creatinine had started to increase. This was mostly associated with low blood pressures. Patient is maintained on midodrine. He was maintained on IV fluids, but developed fluid overload, and the fluids were discontinued yesterday. He also received a dose of IV Lasix. The patient has an indwelling Lara catheter with 24-hour output documented at 1.3 L. Patient is status post PEG tube placement due to aspiration. PHYSICAL EXAMINATION: On examination today, blood pressure was 119/76, heart rate 88 per minute. The patient is afebrile. EXAMINATION OF THE HEART: S1 and S2. EXAMINATION OF LUNGS: Bilateral breath sounds are heard. ABDOMEN: Soft, nontender. LOWER EXTREMITIES: Examination of lower extremities shows no significant edema. 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 LABS: Sodium 136, potassium of 4.2, chloride 102, BUN 39, creatinine 2.27, hemoglobin 9.5 g/dL. ASSESSMENT: 1. Acute kidney injury, prerenal, initially improved with IV fluids. Serum creatinine started to increase again in the last couple of days when patient was not maintained on IV fluids and blood pressure had been low. Subsequently he developed volume overload and the IV fluids were discontinued. The patient received a dose of IV Lasix yesterday. He has an indwelling Lara catheter with good urine output. Renal function is stable, with creatinine staying at about 2.2 mg/dL. 2. Volume overload, currently improved. Continue off of IV fluids. 3. Chronic kidney disease, stage 3B, with baseline creatinine 1.5 to 1.8, secondary to nephrosclerosis. UA has been benign. Patient has a solitary kidney, which is his right kidney. He has had left nephrectomy with previous history of left hydronephrosis and nephrostomy tube. 4. Hyponatremia, hypovolemic, currently improved and now stable. 5. Atrial fibrillation with rapid ventricular response, currently with controlled ventricular response. 6. Possible pneumonia, started on IV antibiotics. PLAN: Continue off of IV fluids. Repeat labs in a.m. Continue with indwelling Lara catheter, as patient has had urine retention. Continue tube feedings with current free water. MMODL / IJN: [id number] /
[2021-06-30] MEDS ORDERED: WARFARIN 1.5 MG TAB PO ONE (18:00)
[2021-06-30 18:16] LABS: Glucose,Whole Blood 122 mg/dL (75-99)
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
[2021-07-01 00:37] LABS: Glucose,Whole Blood 141 mg/dL (75-99)
[2021-07-01 06:16] LABS: Glucose,Whole Blood 142 mg/dL (75-99)
[2021-07-01] MEDS: MIDODRINE 5 MG TAB PO SCH ×3 (06:30→17:22)
[2021-07-01] MEDS: INSULIN ASPART (NovoLOG) 100 UNIT/ML VIAL SQ SCH ×3 (06:31→17:30)
[2021-07-01] MEDS: IPRATROPIUM-ALBUTEROL 3 ML NEB INHALATION SCH ×4 (08:15→20:09)
[2021-07-01] MEDS: SYMBICORT 160-4.5 MCG INHALER INHALATION SCH ×2 (08:16→20:09)
[2021-07-01 09:01] LABS: Anisocytosis Slight; Basophils # (A) 0.1 k/uL (0-0.2); Basophils % (A) 1 %; Eosinophils # (A) 0.2 k/uL (0-0.7); Eosinophils % (A) 2 %; HCT 29.8 % (39.0-53.0); HGB 9.7 gm/dL (13.0-17.5); Lymphocytes % (A) 9 %; MCH 36.9 pg (25.0-35.0); MCHC 32.5 g/dL (31.0-37.0); MCV 113.2 fL (80.0-100.0); Macrocytosis Marked; Mean Platelet Volume 8.2; Monocytes # (A) 0.6 k/uL (0-1.0); Monocytes % (A) 5 %; Neutrophils # (A) 9.1 k/uL (1.3-7.7); Neutrophils % (A) 81 %; Platelet Count 428 k/uL (150-450); RBC 2.64 m/uL (4.30-5.90); RDW 16.4 % (11.5-15.5); WBC 11.2 k/uL (3.8-10.6)
[2021-07-01 09:12] LABS: INR 1.7 (<1.2); Prothrombin Time 16.7 sec (9.0-12.0)
[2021-07-01 09:29] LABS: Albumin 2.8 g/dL (3.5-5.0); Calcium 9.7 mg/dL (8.4-10.2); Potassium 4.7 mmol/L (3.5-5.1); Total Bilirubin 0.8 mg/dL (0.2-1.3); Total Protein 5.8 g/dL (6.3-8.2)
[2021-07-01] MEDS: PIPERACILLIN-TAZOBACTAM 3.375 GM in SODIUM CHLORIDE 0.9% 100 ML IVPB SCH ×3 (09:41→23:17)
[2021-07-01] MEDS: FOLIC ACID 1 MG TAB PO SCH (09:42)
[2021-07-01] MEDS: FAMOTIDINE 20 MG TAB PO SCH (09:42)
[2021-07-01] MEDS: CYANOCOBALAMIN 500 MCG TAB PO SCH (09:42)
[2021-07-01] MEDS: AMIODARONE 200 MG TAB PO SCH ×2 (09:42→21:06)
[2021-07-01] MEDS: VENLAFAXINE HCL 75 MG TAB PO SCH ×2 (09:43→21:06)
[2021-07-01] MEDS: METOPROLOL TARTRATE 25 MG TAB PO SCH ×3 (09:44→21:05)
--- NOTE | 2021-07-01 10:55 | P.PN ---
Subjective Progress Note Date: 07/01/21 Principal diagnosis: This is a 61-year-old male known with chronic kidney disease Baseline creatinine about 2. Came in because of chest pain and shortness of breath on 06/25/2021. He has been on IV fluids and Lasix on and off times to manage his volume status. Currently he is volume overloaded and Lasix. Also he had urinary retention and had an Lara catheter placed. Is slightly short of breath. He has a PEG tube feeding. No nausea vomiting diarrhea no abdominal pain. 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 Carlton infarct. Objective - Vital Signs Vital signs: Vital Signs Temp 97.6 F 07/01/21 03:58 Pulse 78 07/01/21 08:30 Resp 18 07/01/21 08:30 BP 117/69 07/01/21 03:58 Pulse Ox 99 07/01/21 08:16 Intake & Output 06/30/21 07/01/21 07/01/21 18:59 06:59 18:59 Intake Total 120 140 0 Output Total 520 Balance 120 -380 0 Weight 78 kg 94 kg Intake: IV 40 Invasive Line 6 20 Invasive Line 7 20 Intake, IV Titration 100 Amount Piperacillin-Tazobactam 3 100 .375 gm In Sodium Chloride 0.9% 100 ml @ 25 mls/hr IVPB Q8HR [facility] Rx# :[id number] Oral 120 0 Output: Urine 520 Other: Voiding Method Indwelling Catheter Indwelling Catheter # Voids 1 # Bowel Movements 1 1 Currently on examination is awake alert. HEENT exam no JVP neck is supple no facial asymmetry He is on nasal cannula oxygen Lungs are somewhat difficult to auscultate because of poor air entry. No wheezing or crackles were heard Heart sounds unremarkable for any murmur rub gallop Abdomen soft nontender PEG tube. Extremities exam was trace edema Neurologically awake alert oriented - Labs CBC & Chem 7: 07/01/21 08:04 07/01/21 08:04 Labs: Abnormal Lab Results - Last 24 Hours (Table) 06/30/21 06/30/21 07/01/21 Range/Units 11:30 18:15 00:35 WBC (3.8-10.6) k/uL RBC (4.30-5.90) m/uL Hgb (13.0-17.5) gm/dL Hct (39.0-53.0) % MCV (80.0-100.0) fL MCH (25.0-35.0) pg RDW (11.5-15.5) % Neutrophils # (1.3-7.7) k/uL Macrocytosis PT (9.0-12.0) sec INR (<1.2) Sodium (137-145) mmol/L BUN (9-20) mg/dL Creatinine (0.66-1.25) mg/dL Glucose (74-99) mg/dL POC Glucose (mg/dL) 124 H 122 H 141 H (75-99) mg/dL AST (17-59) U/L ALT (4-49) U/L C-Reactive Protein (<1.0) mg/dL Total Protein (6.3-8.2) g/dL Albumin (3.5-5.0) g/dL 07/01/21 07/01/21 07/01/21 Range/Units 06:14 08:04 08:04 WBC 11.2 H (3.8-10.6) k/uL RBC 2.64 L (4.30-5.90) m/uL Hgb 9.7 L (13.0-17.5) gm/dL Hct 29.8 L (39.0-53.0) % MCV 113.2 H (80.0-100.0) fL MCH 36.9 H (25.0-35.0) pg RDW 16.4 H (11.5-15.5) % Neutrophils # 9.1 H (1.3-7.7) k/uL Macrocytosis Marked A PT 16.7 H (9.0-12.0) sec INR 1.7 H (<1.2) Sodium (137-145) mmol/L BUN (9-20) mg/dL Creatinine (0.66-1.25) mg/dL Glucose (74-99) mg/dL POC Glucose (mg/dL) 142 H (75-99) mg/dL AST (17-59) U/L ALT (4-49) U/L C-Reactive Protein (<1.0) mg/dL Total Protein (6.3-8.2) g/dL Albumin (3.5-5.0) g/dL 07/01/21 Range/Units 08:04 WBC (3.8-10.6) k/uL RBC (4.30-5.90) m/uL Hgb (13.0-17.5) gm/dL Hct (39.0-53.0) % MCV (80.0-100.0) fL MCH (25.0-35.0) pg RDW (11.5-15.5) % Neutrophils # (1.3-7.7) k/uL Macrocytosis PT (9.0-12.0) sec INR (<1.2) Sodium 136 L (137-145) mmol/L BUN 40 H (9-20) mg/dL Creatinine 2.01 H (0.66-1.25) mg/dL Glucose 118 H (74-99) mg/dL POC Glucose (mg/dL) (75-99) mg/dL AST 1025 H (17-59) U/L ALT 667 H (4-49) U/L C-Reactive Protein 8.0 H (<1.0) mg/dL Total Protein 5.8 L (6.3-8.2) g/dL Albumin 2.8 L (3.5-5.0) g/dL Microbiology - Last 24 Hours (Table) 06/30/21 11:30 Gram Stain - Preliminary Sputum Sputum Culture - Preliminary Assessment and Plan Assessment: Impression 1. Chronic kidney disease secondary to nephrosclerosis. Additionally there was an element of obstructive nephropathy with a left hydronephrosis, ureteral obstruction. His cystoscopy on 12/09/2020 showed complete obstruction of the proximal ureter at the previous site of stone impaction, attempted insertion off a guidewire was unsuccessful and he had a per cutaneous nephrostomy.. This was changed on 01/11/2021 and 02/23/1941. Subsequently removed on 06/11/2021 are [facility]. Most recent ultrasound dated 06/30/2021 yesterday no hydronephrosis 2. Acute kidney injury from secondary to volume overload and on Lasix. Creati nine stable. 3. Acidosis resolved. Bicarb is 26 4. Computed tomography scan shows old large right cerebellar hemisphere infarct. 5. History of diabetes. 6. Nephrolithiasis with left ureteral obstruction, status post recent removal of percnephrostomy recently. 7. Occasionally has Low blood pressure. 8. Ultrasound shows new extrahepatic biliary dilatation and gallstones Recommendation 1. Monitor vital signs intake and output. 2. Start Lasix 20 mg by mouth daily and watch labs Thank you for this consultation and will continue to follow
--- NOTE | 2021-07-01 11:31 | P.PN ---
Subjective Progress Note Date: 07/01/21 Everett Juárez, is a 61-year-old male patient of Dr. Jama, who presented to [facility] emergency room after sustaining a fall, and complaining of generalized weakness and dizziness, patient is not clear whether he passed out or had any loss of consciousness. Patient was also complaining of chest pain in the EMS, EKG was within normal limits and troponin level was less than 0.01 He was evaluated in the emergency room vital examination on presentation revealed a temperature of 97.4 pulse 71 respirations 16 blood pressure 87/50 pulse ox 94% on room air Laboratory data revealed a white blood count of 8.6 hemoglobin 12.0 platelet count 338 INR 1.2 sodium 128 potassium 6.2 chloride 99 CO2 22 BUN 17 creatinine 2.01 lactic acid on presentation 2.1 urine analysis did not reveal evidence of significant infection. Testing in the emergency room revealed EKG revealed normal sinus rhythm normal EKG chest x-ray done in the emergency room revealed no acute lung disease there was prominent pulmonary leon that could be related to adenopathy. 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 Patient was admitted to medical floor for further evaluation and treatment. Past medical history is significant for history of hypertension, history of hyperlipidemia, history of chronic kidney disease, history of [id number] diabetes mellitus, history of previous stroke, history of paroxysmal atrial fibrillation maintained on Coumadin, history of COPD, patient still smoke a few cigarettes per day, he denies alcohol use. On review of systems Patient is alert and responsive in no distress, he denies any complaints there is no fever or chills no headache or dizziness no chest pain no shortness of breath no palpitation no cough no nausea or vomiting no abdominal pain no diarrhea no blood in the stools no burning with urination no frequency or urgency and no hematuria, there is no weakness or numbness in any of the extremities no change in vision speech, gait was not tested. On 06/16/2021 patient was seen and examined on the telemetry floor he is alert and oriented 3 in no apparent distress he is still complaining of dizziness and weakness otherwise he denies any complaints there is no fever or chills no headache no chest pain no shortness of breath no cough no palpitation no nausea or vomiting no abdominal pain no diarrhea no blood in the stools no burning with urination no frequency or urgency and no hematuria there is no weakness or numbness in any of the extremities no change in vision or in speech On 06/17/2021 Patient was seen and examined on the medical floor, he is alert and oriented x 3 in no distress, he denies any complaints there is no fever or chills no headache or dizziness no chest pain no shortness of breath no palpitation no cough no nausea or vomiting no abdominal pain no diarrhea no blood in the stools no burning with urination no frequency or urgency and no hematuria, there is no weakness or numbness in any of the extremities no change in vision or speech, gait was not tested at this time, patient had significant orthostatic hypotension, this was discussed with cardiology, and dose of Catapres was adjusted down to 0.1 mg by mouth twice a day, patient will be reevaluated by cardiology in a.m. On 06/18/2021 patient was seen and examined on the medical floor, he is alert and oriented 3 in no distress, he is complaining of weakness otherwise he denies any specific complaints, there is no fever or chills no headache or dizziness no chest pain no shortness of breath no cough no nausea or vomiting no abdominal pain no diarrhea no blood in the stools no burning with urination no frequency or urgency no hematuria, there is no weakness or numbness in any of the extremities there is no change in vision speech or gait. Repeat orthostatic hypotension reveals significant drop while standing, cardiology are following, yesterday dose of Catapres was decreased to 0.1 by mouth twice daily, awaiting further recommendation from cardiology On 06/19/2021 patient was seen and examined on the medical floor, he is alert and oriented 3 in no distress, he is complaining of weakness otherwise he denies any specific complaints, he is still having significant orthostatic hypotension was significant drop in blood pressure when patient stands up. the re is no fever or chills no headache or dizziness no chest pain no shortness of breath no cough no nausea or vomiting no abdominal pain no diarrhea no blood in the stools no burning with urination no frequency or urgency no hematuria, there is no weakness or numbness in any of the extremities there is no change in vision speech or gait. Cardiology are following at this time Catapres is being discontinued and midodrine was added to medication regimen will continue to monitor closely. On 06/20/2021 patient was seen and examined on the medical floor he is alert and oriented 3 in no apparent distress, this morning he had an episode of palpitation and severe shortness of breath, EKG revealed SVT versus A. fib with RVR with a heart rate of 186 [address] transferred to [facility]. he was seen by ca rdiology and was started on IV amiodarone, chest x-ray was done today and was suspicious for right sided infiltrate suggestive of pneumonia patient is stating that he is having some cough with yellow sputum production WBC is low, patient was started on IV antibiotic Zosyn, and pulmonary consultation was requested. Patient denies any fever or chills no headache or dizziness no chest pain no nausea or vomiting no abdominal pain no diarrhea and no urinary symptoms. On 06/21/2021 patient was seen and examined on the medical floor he is complaining of cough otherwise he denies any complaints at this time there is no fever or chills no headache or dizziness no chest pain no shortness of breath no nausea or vomiting no abdominal pain no diarrhea no blood in the stools no burning with urination no frequency or urgency and no hematuria, yesterday patient had an episode of A. fib with RVR, he was started on IV amiodarone by cardiology and was transferred to telemetry floor, also chest x-ray revealed evidence of right basilar infiltrate, he was started on IV Zosyn pulmonary consultation was requested, sputum culture was ordered On 06/22/2021 Patient was seen and examined on the medical floor, he is alert and oriented x 3 in no distress, he is complaining of cough otherwise he denies any complaints there is no fever or chills no headache or dizziness no chest pain no shortness of breath no palpitation no cough no nausea or vomiting no abdominal pain no diarrhea no blood in the stools no burning with urination no frequency or urgency and no hematuria, there is no weakness or numbness in any of the extremities no change in vision speech or gait. Patient failed swallow evaluation with all food consistency today, he is kept nothing by mouth consultation for Dr. Zacarias for PEG tube placement was initiated. On 06/23/2021 patient is alert and oriented 3. Patient is resting comfortably in bed. Patient currently maintained on amiodarone drip per cardiology. Patient also maintained on IV Zosyn for aspiration pneumonia. Surgical services have been consulted for PEG tube placement. At this time pulmonary, cardiology, nephrology and surgical services following. Repeat labs have been ordered. Patient is still complaining of chest congestion and cough. Patient denies chest pain. Patient denies nausea vomiting or diarrhea. Patient denies any urinary burning or frequency. On 06/24/2021 Patient was seen and examined on the medical floor, he is alert and oriented x 3 in no distress, he denies any complaints there is no fever or chills no headache or dizziness no chest pain no shortness of breath no palpitation no cough no nausea or vomiting no abdominal pain no diarrhea no blood in the stools no burning with urination no frequency or urgency and no hematuria, there is no weakness or numbness in any of the extremities no change in vision speech, today INR is 5.3 Coumadin is on hold Will give 1 dose of vitamin K 2 mg IV patient is nothing by mouth , he is awaiting PEG tube placement On 06/24/2021 patient is alert and oriented 3 INR 1.2. Patient maintained on IV amiodarone. Tentative plans for PEG tube placement tomorrow per surgical services. . At this time patient remains with productive cough. Patient denies chest pain. Patient denies nausea vomiting or diarrhea. Patient denies any urinary burning or frequency On 06/26/2021 Patient was seen and examined on the medical floor, he is alert and oriented x 3 in no distress, he denies any complaints there is no fever or chills no headache or dizziness no chest pain no shortness of breath no palp itation no cough no nausea or vomiting no abdominal pain no diarrhea no blood in the stools no burning with urination no frequency or urgency and no hematuria, there is no weakness or numbness in any of the extremities no change in vision speech, patient received vitamin K his INR is low we are awaiting PEG tube placement On 06/27/2021 Patient was seen and examined on the medical floor, he is alert and oriented x 3 in no distress, he denies any complaints there is no fever or chills no headache or dizziness no chest pain no shortness of breath no palpitation no cough no nausea or vomiting no abdominal pain no diarrhea no blood in the stools no burning with urination no frequency or urgency and no hematuria, there is no weakness or numbness in any of the extremities no change in vision speech, Patient underwent PEG tube placement and was started on PEG tube feeding, will continue to follow closely will recheck chest x-ray in a.m. On 06/28/2021 patient alert and oriented 3. Repeat chest x-ray showing worsening interstitial edema with superimposed infiltrates versus atelectasis. Small pleural effusion. We'll reconsult pulmonary services. Patient remains on IV Zosyn. Patient does have PEG tube in place tube feeds running. At this time patient denies chest pain. Patient does report occasional cough with sputum production. Patient denies nausea vomiting or diarrhea. Patient denies any urinary burning or frequency. On 06/29/2021 patient was seen and examined on the telemetry floor, he is alert and oriented 3 in no distress, he is still complaining of shortness of breath and occasional cough, his chest x-ray done yesterday reveals worsening of the pulmonary infiltrate, he is still maintained on IV Zosyn, and is maintained on oxygen at 5 L via nasal cannula, pulmonary consultation was resubmitted yesterday for reevaluation and further advice regarding antibiotic treatment and further management of his pulmonary consultation, at this time patient is not ready yet for discharge to a rehab center, otherwise he denies any complaints there is no fever or chills no chest pain no nausea or vomiting no abdominal pain no diarrhea no blood in the stools and no urinary symptoms PEG tube site is clear. 06/30/2021 patient alert and oriented 3. Patient still having significant sputum production. Will order repeat sputum sample consults infectious disease services. Patient's liver enzymes also significantly elevated. Malu HAYWOOD'christine. Liver ultrasound will be ordered. Patient denies chest pain. Patient denies nausea vomiting or diarrhea. Patient denies any urinary burning or frequency On 07/01/2021 patient alert and oriented 3. Liver ultrasound completed showing more prominent in view minimum extra hepatic biliary dilation patient with known gallstones and advised ERCP or MRCP to assess for possible CBD stone. GI services will be consulted. AST 1025, ALT 665 and up on phosphatase. Patient also started on Lasix per neurology services fluid on hold. Infectious disease services also following. Patient maintained on IV Zosyn. At this time patient denies chest pain or shortness breath. Patient denies nausea vomiting or diarrhea. Patient denies any urinary burning or frequency Objective - Vital Signs Vital signs: Vital Signs Temp 97.6 F 07/01/21 03:58 Pulse 78 07/01/21 08:30 Resp 18 07/01/21 08:30 BP 117/69 07/01/21 03:58 Pulse Ox 99 07/01/21 08:16 Intake & Output 06/30/21 07/01/21 07/01/21 18:59 06:59 18:59 Intake Total 120 140 0 Output Total 520 Balance 120 -380 0 Weight 78 kg 94 kg Intake: IV 40 Invasive Line 6 20 Invasive Line 7 20 Intake, IV Titration 100 Amount Piperacillin-Tazobactam 3 100 .375 gm In Sodium Chloride 0.9% 100 ml @ 25 mls/hr IVPB Q8HR [facility] Rx# :[id number] Oral 120 0 Output: Urine 520 Other: Voiding Method Indwelling Catheter Indwelling Catheter # Voids 1 # Bowel Movements 1 1 - Exam In general patient is alert and responsive in no distress HEENT head normocephalic and atraumatic Neck is supple no JVD no goiter no lymphadenopathy no carotid bruit Chest examination is clear to auscultation no crackles no wheezing Cardiac exam reveals regular heart sounds S1 and S2 no gallops no murmurs Abdomen is soft nontender no organomegaly with normal bowel sounds Extremity exam reveals no edema no cyanosis or clubbing Neurological examination reveals no gross focal deficits - Labs CBC & Chem 7: 07/01/21 08:04 07/01/21 08:04 Labs: Abnormal Lab Results - Last 24 Hours (Table) 06/30/21 06/30/21 07/01/21 Range/Units 11:30 18:15 00:35 WBC (3.8-10.6) k/uL RBC (4.30-5.90) m/uL Hgb (13.0-17.5) gm/dL Hct (39.0-53.0) % MCV (80.0-100.0) fL MCH (25.0-35.0) pg RDW (11.5-15.5) % Neutrophils # (1.3-7.7) k/uL Macrocytosis PT (9.0-12.0) sec INR (<1.2) Sodium (137-145) mmol/L BUN (9-20) mg/dL Creatinine (0.66-1.25) mg/dL Glucose (74-99) mg/dL POC Glucose (mg/dL) 124 H 122 H 141 H (75-99) mg/dL AST (17-59) U/L ALT (4-49) U/L C-Reactive Protein (<1.0) mg/dL Total Protein (6.3-8.2) g/dL Albumin (3.5-5.0) g/dL 07/01/21 07/01/21 07/01/21 Range/Units 06:14 08:04 08:04 WBC 11.2 H (3.8-10.6) k/uL RBC 2.64 L (4.30-5.90) m/uL Hgb 9.7 L (13.0-17.5) gm/dL Hct 29.8 L (39.0-53.0) % MCV 113.2 H (80.0-100.0) fL MCH 36.9 H (25.0-35.0) pg RDW 16.4 H (11.5-15.5) % Neutrophils # 9.1 H (1.3-7.7) k/uL Macrocytosis Marked A PT 16.7 H (9.0-12.0) sec INR 1.7 H (<1.2) Sodium (137-145) mmol/L BUN (9-20) mg/dL Creatinine (0.66-1.25) mg/dL Glucose (74-99) mg/dL POC Glucose (mg/dL) 142 H (75-99) mg/dL AST (17-59) U/L ALT (4-49) U/L C-Reactive Protein (<1.0) mg/dL Total Protein (6.3-8.2) g/dL Albumin (3.5-5.0) g/dL 07/01/21 Range/Units 08:04 WBC (3.8-10.6) k/uL RBC (4.30-5.90) m/uL Hgb (13.0-17.5) gm/dL Hct (39.0-53.0) % MCV (80.0-100.0) fL MCH (25.0-35.0) pg RDW (11.5-15.5) % Neutrophils # (1.3-7.7) k/uL Macrocytosis PT (9.0-12.0) sec INR (<1.2) Sodium 136 L (137-145) mmol/L BUN 40 H (9-20) mg/dL Creatinine 2.01 H (0.66-1.25) mg/dL Glucose 118 H (74-99) mg/dL POC Glucose (mg/dL) (75-99) mg/dL AST 1025 H (17-59) U/L ALT 667 H (4-49) U/L C-Reactive Protein 8.0 H (<1.0) mg/dL Total Protein 5.8 L (6.3-8.2) g/dL Albumin 2.8 L (3.5-5.0) g/dL Microbiology - Last 24 Hours (Table) 06/30/21 11:30 Gram Stain - Preliminary Sputum Sputum Culture - Preliminary Assessment and Plan Plan: Fall at home with unclear history whether patient had a syncopal episode or loss of consciousness Episode of chest pain while in the ambulance Atrial fibrillation with rapid ventricular response. Patient started on amiodarone drip per cardiology Underlying history of paroxysmal atrial fibrillation, maintained on Coumadin however her INR was subtherapeutic at 1.2 on presentation, today INR is therap eutic at 2.7 Evidence of dehydration with electrolyte imbalance with hyponatremia and hyperkalemia Underlying history of chronic kidney disease Underlying history of [id number]-emsbjsabk diabetes mellitus, no evidence of hypoglycemia Underlying history of hypertension Previous history of cerebellar stroke. Right basilar infiltrate suggestive of pneumonia, patient started on IV Zosyn, pulmonary consultation requested Dysphagia. PEG tube placement per Dr. ordonez Extrahepatic biliary dilation with elevated liver enzymes. GI service is consulted Lipitor CHASTITY'christine DVT prophylaxis Coumadin. GI prophylaxis Pepcid Pulmonary, cardiology, nephrology, infectious disease, GI services and surgical services following Patient maintained on IV Zosyn s/p peg tube placement Repeat labs ordered PT OT services consulted Social work consulted for possible ECF placement
[2021-07-01 11:58] LABS: Glucose,Whole Blood 142 mg/dL (75-99)
[2021-07-01] MEDS: FUROSEMIDE 20 MG TAB PO SCH (12:40)
[2021-07-01 17:29] LABS: Glucose,Whole Blood 131 mg/dL (75-99)
[2021-07-01] MEDS ORDERED: WARFARIN 2 MG TAB PO ONE (18:00)
--- NOTE | 2021-07-01 19:13 | PN ---
PROGRESS NOTE DATE OF SERVICE: 07/01/2021 REASON FOR FOLLOWUP: Possible pneumonia. INTERVAL HISTORY: The patient is afebrile. The patient is breathing comfortably. The patient denies having any chest pain or any worsening cough. No abdominal pain or diarrhea. PHYSICAL EXAMINATION: Blood pressure is 132/75, pulse of 95, temperature 98. He is 94% on 3 L nasal cannula. GENERAL DESCRIPTION: General description is a middle-aged male lying in bed in no distress. RESPIRATORY SYSTEM: Unlabored breathing. Decreased intensity of breath sounds. No wheeze. HEART: S1, S2. Regular rate and rhythm. ABDOMEN: Soft. No tenderness. LABS: Hemoglobin is 9.7, white count 11.2, BUN of 40, creatinine is 2.01. DIAGNOSTIC IMPRESSION AND PLAN: Patient with shortness of breath, abnormal x-rays, more likely fluid overload. Clinical suspicion of pneumonia not entirely excluded. more likely colonizer. Procalcitonin was not significantly elevated. On Zosyn. May finish therapy with a course of oral antibiotic on discharge. Continue supportive care. MMODL / IJN: [id number] /
[2021-07-01] MEDS: HYDROmorphone 0.5 MG/0.5 ML SYRINGE IVP PRN (19:20)
[2021-07-02 00:01] LABS: Glucose,Whole Blood 136 mg/dL (75-99)
[2021-07-02] MEDS: INSULIN ASPART (NovoLOG) 100 UNIT/ML VIAL SQ SCH ×4 (00:08→18:31)
[2021-07-02] MEDS: HYDROmorphone 0.5 MG/0.5 ML SYRINGE IVP PRN ×3 (03:10→23:50)
[2021-07-02 06:18] LABS: Glucose,Whole Blood 154 mg/dL (75-99)
[2021-07-02] MEDS: MIDODRINE 5 MG TAB PO SCH ×3 (06:21→17:11)
[2021-07-02] MEDS: IPRATROPIUM-ALBUTEROL 3 ML NEB INHALATION SCH ×4 (08:04→19:25)
[2021-07-02] MEDS: SYMBICORT 160-4.5 MCG INHALER INHALATION SCH ×2 (08:04→19:25)
[2021-07-02 08:59] LABS: INR 1.6 (<1.2); Prothrombin Time 15.8 sec (9.0-12.0)
[2021-07-02 09:07] LABS: Albumin 2.7 g/dL (3.5-5.0); Calcium 9.8 mg/dL (8.4-10.2); Potassium 4.6 mmol/L (3.5-5.1); Total Bilirubin 0.7 mg/dL (0.2-1.3); Total Protein 5.7 g/dL (6.3-8.2)
[2021-07-02 09:09] LABS: Anisocytosis Slight; Basophils # (A) 0.1 k/uL (0-0.2); Basophils % (A) 1 %; Eosinophils # (A) 0.2 k/uL (0-0.7); Eosinophils % (A) 2 %; HCT 29.4 % (39.0-53.0); HGB 9.3 gm/dL (13.0-17.5); Lymphocytes # (A) 0.9 k/uL (1.0-4.8); Lymphocytes % (A) 10 %; MCH 35.7 pg (25.0-35.0); MCHC 31.6 g/dL (31.0-37.0); MCV 112.8 fL (80.0-100.0); Macrocytosis Marked; Mean Platelet Volume 8.3; Monocytes # (A) 0.6 k/uL (0-1.0); Monocytes % (A) 6 %; Neutrophils # (A) 7.6 k/uL (1.3-7.7); Neutrophils % (A) 79 %; Platelet Count 400 k/uL (150-450); RBC 2.61 m/uL (4.30-5.90); RDW 16.9 % (11.5-15.5); WBC 9.6 k/uL (3.8-10.6)
[2021-07-02] MEDS: PIPERACILLIN-TAZOBACTAM 3.375 GM in SODIUM CHLORIDE 0.9% 100 ML IVPB SCH ×3 (09:26→23:09)
--- NOTE | 2021-07-02 09:26 | P.PN ---
Subjective Progress Note Date: 07/02/21 Principal diagnosis: This is a 61-year-old male known with chronic kidney disease Baseline creatinine about 2. Came in because of chest pain and shortness of breath on 06/25/2021. He has been on IV fluids and Lasix on and off times to manage his volume status. Currently he is volume overloaded and Lasix. Also he had urinary retention and had an Lara catheter placed. Is slightly short of breath. He has a PEG tube feeding. No nausea vomiting diarrhea no abdominal pain. This morning he seems to be worse with more short of breath. And exam also shows more lung findings Is also known with remote nephrolithiasis with left ureteral obstruction and has had percutaneous nephrostomy recently He has computed tomography scan evidence of old large right cerebellar Objective - Vital Signs Vital signs: Vital Signs Temp 97.9 F 07/02/21 03:05 Pulse 88 07/02/21 08:18 Resp 18 07/02/21 03:05 BP 126/75 07/02/21 06:24 Pulse Ox 95 07/02/21 03:05 Intake & Output 07/01/21 07/02/21 07/02/21 18:59 06:59 18:59 Intake Total 0 580 Output Total 1380 Balance 0 -800 Weight 93.5 kg Intake: Intake, IV Titration 100 Amount Piperacillin-Tazobactam 3 100 .375 gm In Sodium Chloride 0.9% 100 ml @ 25 mls/hr IVPB Q8HR [facility] Rx# :[id number] Oral 0 Tube Feeding 480 Output: Urine 1380 Other: Voiding Method Indwelling Catheter # Voids 1 # Bowel Movements 1 On examination is awake alert short of breath on nasal cannula oxygen. HEENT exam no JVP neck is supple no facial asymmetry Lungs are significant for bilateral coarse and fine crackles all over both sides. Heart sounds unremarkable for any murmur rub gallop Abdomen soft nontender Extremity exam was trace edema Neurologically awake alert oriented. Generalized weakness - Labs CBC & Chem 7: 07/01/21 08:04 07/02/21 07:52 Labs: Abnormal Lab Results - Last 24 Hours (Table) 07/01/21 07/01/21 07/01/21 Range/Units 08:04 08:04 11:56 PT (9.0-12.0) sec INR (<1.2) Sodium 136 L (137-145) mmol/L BUN 40 H (9-20) mg/dL Creatinine 2.01 H (0.66-1.25) mg/dL Glucose 118 H (74-99) mg/dL POC Glucose (mg/dL) 142 H (75-99) mg/dL AST 1025 H (17-59) U/L ALT 667 H (4-49) U/L C-Reactive Protein 8.0 H (<1.0) mg/dL Total Protein 5.8 L (6.3-8.2) g/dL Albumin 2.8 L (3.5-5.0) g/dL Procalcitonin 0.32 H (0.02-0.09) ng/mL 07/01/21 07/02/21 07/02/21 Range/Units 17:28 00:00 06:17 PT (9.0-12.0) sec INR (<1.2) Sodium (137-145) mmol/L BUN (9-20) mg/dL Creatinine (0.66-1.25) mg/dL Glucose (74-99) mg/dL POC Glucose (mg/dL) 131 H 136 H 154 H (75-99) mg/dL AST (17-59) U/L ALT (4-49) U/L C-Reactive Protein (<1.0) mg/dL Total Protein (6.3-8.2) g/dL Albumin (3.5-5.0) g/dL Procalcitonin (0.02-0.09) ng/mL 07/02/21 07/02/21 Range/Units 07:52 07:52 PT 15.8 H (9.0-12.0) sec INR 1.6 H (<1.2) Sodium (137-145) mmol/L BUN 37 H (9-20) mg/dL Creatinine 1.90 H (0.66-1.25) mg/dL Glucose 149 H (74-99) mg/dL POC Glucose (mg/dL) (75-99) mg/dL AST 600 H (17-59) U/L ALT 560 H (4-49) U/L C-Reactive Protein (<1.0) mg/dL Total Protein 5.7 L (6.3-8.2) g/dL Albumin 2.7 L (3.5-5.0) g/dL Procalcitonin (0.02-0.09) ng/mL Microbiology - Last 24 Hours (Table) 06/30/21 11:30 Gram Stain - Preliminary Sputum Sputum Culture - Preliminary Jenae albicans Assessment and Plan Assessment: Impression 1. Acute kidney injury, possibly cardiorenal syndrome. Worse today with more short of breath from congestive heart failure. Coughing up brownish sputum. Urine output is 13 80 mL. Last chest x-ray shows congestive heart failure dated 06/27/2021 2. Chronic kidney disease secondary to nephrosclerosis. Additionally there was an element of obstructive nephropathy with a left hydronephrosis, ureteral obstruction. His cystoscopy on 12/09/2020 showed complete obstruction of the proximal ureter at the previous site of stone impaction, attempted insertion off a guidewire was unsuccessful and he had a per cutaneous nephrostomy.. This was changed on 01/11/2021 and 02/23/1941. Subsequently removed on 06/11/2021 are [facility]. Most recent ultrasound dated 06/30/2021 yesterday no hydronephrosis 3. Acidosis resolved. Bicarb is 26 4. Computed tomography scan shows old large right cerebellar hemisphere infarct. 5. History of diabetes. 6. Nephrolithiasis with left ureteral obstruction, status post recent removal of percnephrostomy recently. 7. Occasionally has Low blood pressure. 8. Ultrasound shows new extrahepatic biliary dilatation and gallstones Recommendation 1. Will switch from by mouth Lasix to IV Lasix 20 every 12. 2. We'll obtain repeat chest x-ray
[2021-07-02] MEDS: METOPROLOL TARTRATE 25 MG TAB PO SCH ×3 (09:28→20:53)
[2021-07-02] MEDS: FAMOTIDINE 20 MG TAB PO SCH (09:28)
[2021-07-02] MEDS: AMIODARONE 200 MG TAB PO SCH ×2 (09:28→20:53)
[2021-07-02] MEDS: CYANOCOBALAMIN 500 MCG TAB PO SCH (09:28)
[2021-07-02] MEDS: FOLIC ACID 1 MG TAB PO SCH (09:28)
[2021-07-02] MEDS: VENLAFAXINE HCL 75 MG TAB PO SCH ×2 (09:28→20:53)
--- NOTE | 2021-07-02 09:47 | XR ---
EXAMINATION TYPE: XR chest 1V DATE OF EXAM: 07/02/2021 COMPARISON: 06/27/2021 HISTORY: CHF TECHNIQUE: Single frontal view of the chest is obtained. FINDINGS: There is diffuse fine interstitial opacity most likely reflecting pulmonary vascular conge stion and mild mild interstitial edema. There is a small right pleural effusion and the heart size is mildly prominent. There is no pneumothorax. There is no dense lung consolidation. The osseous structures are intact. IMPRESSION: Findings consistent with the provided history of CHF. The degree of pulmonary vascular c ongestion and interstitial edema and effusion appears less than that seen on the prior study dated
[2021-07-02] MEDS: FUROSEMIDE 10 MG/ML 2 ML VIAL IV SCH ×2 (09:48→20:53)
[2021-07-02 11:53] LABS: Glucose,Whole Blood 137 mg/dL (75-99)
--- NOTE | 2021-07-02 12:47 | P.PN ---
Subjective Progress Note Date: 07/01/21 Everett Juárez, is a 61-year-old male patient of Dr. Jama, who presented to [facility] emergency room after sustaining a fall, and complaining of generalized weakness and dizziness, patient is not clear whether he passed out or had any loss of consciousness. Patient was also complaining of chest pain in the EMS, EKG was within normal limits and troponin level was less than 0.01 He was evaluated in the emergency room vital examination on presentation revealed a temperature of 97.4 pulse 71 respirations 16 blood pressure 87/50 pulse ox 94% on room air Laboratory data revealed a white blood count of 8.6 hemoglobin 12.0 platelet count 338 INR 1.2 sodium 128 potassium 6.2 chloride 99 CO2 22 BUN 17 creatinine 2.01 lactic acid on presentation 2.1 urine analysis did not reveal evidence of significant infection. Testing in the emergency room revealed EKG revealed normal sinus rhythm normal EKG chest x-ray done in the emergency room revealed no acute lung disease there was prominent pulmonary leon that could be related to adenopathy. 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 Patient was admitted to medical floor for further evaluation and treatment. Past medical history is significant for history of hypertension, history of hyperlipidemia, history of chronic kidney disease, history of vea-vfunsto-oxlehsofx diabetes mellitus, history of previous stroke, history of paroxysmal atrial fibrillation maintained on Coumadin, history of COPD, patient still smoke a few cigarettes per day, he denies alcohol use. On review of systems Patient is alert and responsive in no distress, he denies any complaints there is no fever or chills no headache or dizziness no chest pain no shortness of breath no palpitation no cough no nausea or vomiting no abdominal pain no diarrhea no blood in the stools no burning with urination no frequency or urgency and no hematuria, there is no weakness or numbness in any of the extremities no change in vision speech, gait was not tested. On 06/16/2021 patient was seen and examined on the telemetry floor he is alert and oriented 3 in no apparent distress he is still complaining of dizziness and weakness otherwise he denies any complaints there is no fever or chills no headache no chest pain no shortness of breath no cough no palpitation no nausea or vomiting no abdominal pain no diarrhea no blood in the stools no burning with urination no frequency or urgency and no hematuria there is no weakness or numbness in any of the extremities no change in vision or in speech On 06/17/2021 Patient was seen and examined on the medical floor, he is alert and oriented x 3 in no distress, he denies any complaints there is no fever or chills no headache or dizziness no chest pain no shortness of breath no palpitation no cough no nausea or vomiting no abdominal pain no diarrhea no blood in the stools no burning with urination no frequency or urgency and no hematuria, there is no weakness or numbness in any of the extremities no change in vision or speech, gait was not tested at this time, patient had significant orthostatic hypotension, this was discussed with cardiology, and dose of Catapres was adjusted down to 0.1 mg by mouth twice a day, patient will be reevaluated by cardiology in a.m. On 06/18/2021 patient was seen and examined on the medical floor, he is alert and oriented 3 in no distress, he is complaining of weakness otherwise he denies any specific complaints, there is no fever or chills no headache or dizziness no chest pain no shortness of breath no cough no nausea or vomiting no abdominal pain no diarrhea no blood in the stools no burning with urination no frequency or urgency no hematuria, there is no weakness or numbness in any of the extremities there is no change in vision speech or gait. Repeat orthostatic hypotension reveals significant drop while standing, cardiology are following, yesterday dose of Catapres was decreased to 0.1 by mouth twice daily, awaiting further recommendation from cardiology On 06/19/2021 patient was seen and examined on the medical floor, he is alert and oriented 3 in no distress, he is complaining of weakness otherwise he denies any specific complaints, he is still having significant orthostatic hypotension was significant drop in blood pressure when patient stands up. the re is no fever or chills no headache or dizziness no chest pain no shortness of breath no cough no nausea or vomiting no abdominal pain no diarrhea no blood in the stools no burning with urination no frequency or urgency no hematuria, there is no weakness or numbness in any of the extremities there is no change in vision speech or gait. Cardiology are following at this time Catapres is being discontinued and midodrine was added to medication regimen will continue to monitor closely. On 06/20/2021 patient was seen and examined on the medical floor he is alert and oriented 3 in no apparent distress, this morning he had an episode of palpitation and severe shortness of breath, EKG revealed SVT versus A. fib with RVR with a heart rate of 186 patient was transferred to [facility]. he was seen by [facility] rdiology and was started on IV amiodarone, chest x-ray was done today and was suspicious for right sided infiltrate suggestive of pneumonia patient is stating that he is having some cough with yellow sputum production WBC is low, patient was started on IV antibiotic Zosyn, and pulmonary consultation was requested. Patient denies any fever or chills no headache or dizziness no chest pain no nausea or vomiting no abdominal pain no diarrhea and no urinary symptoms. On 06/21/2021 patient was seen and examined on the medical floor he is complaining of cough otherwise he denies any complaints at this time there is no fever or chills no headache or dizziness no chest pain no shortness of breath no nausea or vomiting no abdominal pain no diarrhea no blood in the stools no burning with urination no frequency or urgency and no hematuria, yesterday patient had an episode of A. fib with RVR, he was started on IV amiodarone by cardiology and was transferred to telemetry floor, also chest x-ray revealed evidence of right basilar infiltrate, he was started on IV Zosyn pulmonary consultation was requested, sputum culture was ordered On 06/22/2021 Patient was seen and examined on the medical floor, he is alert and oriented x 3 in no distress, he is complaining of cough otherwise he denies any complaints there is no fever or chills no headache or dizziness no chest pain no shortness of breath no palpitation no cough no nausea or vomiting no abdominal pain no diarrhea no blood in the stools no burning with urination no frequency or urgency and no hematuria, there is no weakness or numbness in any of the extremities no change in vision speech or gait. Patient failed swallow evaluation with all food consistency today, he is kept nothing by mouth consultation for Dr. Zacarias for PEG tube placement was initiated. On 06/23/2021 patient is alert and oriented 3. Patient is resting comfortably in bed. Patient currently maintained on amiodarone drip per cardiology. Patient also maintained on IV Zosyn for aspiration pneumonia. Surgical services have been consulted for PEG tube placement. At this time pulmonary, cardiology, nephrology and surgical services following. Repeat labs have been ordered. Patient is still complaining of chest congestion and cough. Patient denies chest pain. Patient denies nausea vomiting or diarrhea. Patient denies any urinary burning or frequency. On 06/24/2021 Patient was seen and examined on the medical floor, he is alert and oriented x 3 in no distress, he denies any complaints there is no fever or chills no headache or dizziness no chest pain no shortness of breath no palpitation no cough no nausea or vomiting no abdominal pain no diarrhea no blood in the stools no burning with urination no frequency or urgency and no hematuria, there is no weakness or numbness in any of the extremities no change in vision speech, today INR is 5.3 Coumadin is on hold Will give 1 dose of vitamin K 2 mg IV patient is nothing by mouth , he is awaiting PEG tube placement On 06/24/2021 patient is alert and oriented 3 INR 1.2. Patient maintained on IV amiodarone. Tentative plans for PEG tube placement tomorrow per surgical services. . At this time patient remains with productive cough. Patient denies chest pain. Patient denies nausea vomiting or diarrhea. Patient denies any urinary burning or frequency On 06/26/2021 Patient was seen and examined on the medical floor, he is alert and oriented x 3 in no distress, he denies any complaints there is no fever or chills no headache or dizziness no chest pain no shortness of breath no palp itation no cough no nausea or vomiting no abdominal pain no diarrhea no blood in the stools no burning with urination no frequency or urgency and no hematuria, there is no weakness or numbness in any of the extremities no change in vision speech, patient received vitamin K his INR is low we are awaiting PEG tube placement On 06/27/2021 Patient was seen and examined on the medical floor, he is alert and oriented x 3 in no distress, he denies any complaints there is no fever or chills no headache or dizziness no chest pain no shortness of breath no palpitation no cough no nausea or vomiting no abdominal pain no diarrhea no blood in the stools no burning with urination no frequency or urgency and no hematuria, there is no weakness or numbness in any of the extremities no change in vision speech, Patient underwent PEG tube placement and was started on PEG tube feeding, will continue to follow closely will recheck chest x-ray in a.m. On 06/28/2021 patient alert and oriented 3. Repeat chest x-ray showing worsening interstitial edema with superimposed infiltrates versus atelectasis. Small pleural effusion. We'll reconsult pulmonary services. Patient remains on IV Zosyn. Patient does have PEG tube in place tube feeds running. At this time patient denies chest pain. Patient does report occasional cough with sputum production. Patient denies nausea vomiting or diarrhea. Patient denies any urinary burning or frequency. On 06/29/2021 patient was seen and examined on the telemetry floor, he is alert and oriented 3 in no distress, he is still complaining of shortness of breath and occasional cough, his chest x-ray done yesterday reveals worsening of the pulmonary infiltrate, he is still maintained on IV Zosyn, and is maintained on oxygen at 5 L via nasal cannula, pulmonary consultation was resubmitted yesterday for reevaluation and further advice regarding antibiotic treatment and further management of his pulmonary consultation, at this time patient is not ready yet for discharge to a rehab center, otherwise he denies any complaints there is no fever or chills no chest pain no nausea or vomiting no abdominal pain no diarrhea no blood in the stools and no urinary symptoms PEG tube site is clear. 06/30/2021 patient alert and oriented 3. Patient still having significant sputum production. Will order repeat sputum sample consults infectious disease services. Patient's liver enzymes also significantly elevated. Lipitor DC'd. Liver ultrasound will be ordered. Patient denies chest pain. Patient denies nausea vomiting or diarrhea. Patient denies any urinary burning or frequency On 07/01/2021 Patient was seen and examined on the medical floor, he is alert and oriented x 3 in no distress, he denies any complaints there is no fever or chills no headache or dizziness no chest pain no shortness of breath no palpitation no cough no nausea or vomiting no abdominal pain no diarrhea no blood in the stools no burning with urination no frequency or urgency and no hematuria, there is no weakness or numbness in any of the extremities no change in vision speech. Liver enzymes are quite elevated but are improving gradually, Lipitor was discontinued and Tylenol was discontinued, will continue to monitor Objective - Vital Signs Vital signs: Vital Signs Temp 97.6 F 07/01/21 03:58 Pulse 78 07/01/21 08:30 Resp 18 07/01/21 08:30 BP 117/69 07/01/21 03:58 Pulse Ox 99 07/01/21 08:16 Intake & Output 06/30/21 07/01/21 07/01/21 18:59 06:59 18:59 Intake Total 120 140 0 Output Total 520 Balance 120 -380 0 Weight 78 kg 94 kg Intake: IV 40 Invasive Line 6 20 Invasive Line 7 20 Intake, IV Titration 100 Amount Piperacillin-Tazobactam 3 100 .375 gm In Sodium Chloride 0.9% 100 ml @ 25 mls/hr IVPB Q8HR [facility] Rx# :[id number] Oral 120 0 Output: Urine 520 Other: Voiding Method Indwelling Catheter Indwelling Catheter # Voids 1 # Bowel Movements 1 1 - Exam In general patient is alert and responsive in no distress HEENT head normocephalic and atraumatic Neck is supple no JVD no goiter no lymphadenopathy no carotid bruit Chest examination is clear to auscultation no crackles no wheezing Cardiac exam reveals regular heart sounds S1 and S2 no gallops no murmurs Abdomen is soft nontender no organomegaly with normal bowel sounds Extremity exam reveals no edema no cyanosis or clubbing Neurological examination reveals no gross focal deficits - Labs CBC & Chem 7: 07/02/21 07:52 07/02/21 07:52 Labs: Abnormal Lab Results - Last 24 Hours (Table) 06/30/21 06/30/21 06/30/21 Range/Units 07:11 11:30 18:15 POC Glucose (mg/dL) 124 H 122 H (75-99) mg/dL AST 1477 H (17-59) U/L 07/01/21 07/01/21 Range/Units 00:35 06:14 POC Glucose (mg/dL) 141 H 142 H (75-99) mg/dL AST (17-59) U/L Microbiology - Last 24 Hours (Table) 06/30/21 11:30 Gram Stain - Preliminary Sputum Sputum Culture - Preliminary Assessment and Plan Plan: Fall at home with unclear history whether patient had a syncopal episode or loss of consciousness Episode of chest pain while in the ambulance Atrial fibrillation with rapid ventricular response. Patient started on amiodarone drip per cardiology Underlying history of paroxysmal atrial fibrillation, maintained on Coumadin however her INR was subtherapeutic at 1.2 on presentation, today INR is therapeutic at 2.7 Evidence of dehydration with electrolyte imbalance with hyponatremia and hy perkalemia Underlying history of chronic kidney disease Underlying history of ips-qgqzqzh-inbueedph diabetes mellitus, no evidence of hypoglycemia Underlying history of hypertension Previous history of cerebellar stroke. Right basilar infiltrate suggestive of pneumonia, patient started on IV Zosyn, pulmonary consultation requested Dysphagia. PEG tube placement per Dr. ordonez Elevated liver enzymes. Lipitor DC'd. Liver ultrasound ordered DVT prophylaxis Coumadin. GI prophylaxis Pepcid Pulmonary, cardiology, nephrology and surgical services following Patient maintained on IV Zosyn s/p peg tube placement Repeat labs ordered PT OT services consulted Social work consulted for possible ECF placement Pulmonary services reconsulted for worsening chest x-ray Infectious disease consulted for worsening pneumonia
[2021-07-02 17:43] LABS: Glucose,Whole Blood 145 mg/dL (75-99)
[2021-07-02] MEDS ORDERED: WARFARIN 2 MG TAB PO ONE (18:00)
[2021-07-02] MEDS: FUROSEMIDE 20 MG TAB PO SCH (19:30)
--- NOTE | 2021-07-02 19:34 | PN ---
PROGRESS NOTE DATE OF SERVICE: 07/02/2021 REASON FOR FOLLOWUP: Pneumonia. INTERVAL HISTORY: The patient is afebrile. The patient is breathing comfortably. Denies having any chest pain or shortness of breath. No worsening cough. Does have occasional sputum production. No abdominal pain or diarrhea. PHYSICAL EXAMINATION: Blood pressure 130/77, pulse of 104, temperature 98. He is 96% on 3 L nasal cannula. GENERAL DESCRIPTION: General description is a middle-aged male lying in bed in no distress. RESPIRATORY SYSTEM: Unlabored breathing. Decreased breath sounds at the bases. No wheeze. HEART: S1, S2. Regular rate and rhythm. ABDOMEN: Soft. No tenderness. LABS: Hemoglobin is 9.3, white count 9.6, BUN of 27, creatinine 1.90. Sputum is showing Jenae albicans. Chest x-ray finding consistent with CHF. DIAGNOSTIC IMPRESSION AND PLAN: Patient with shortness of breath and cough, more likely related to congestive heart failure. Clinical suspicion for pneumonia is low. Sputum has shown Jenae albicans which is more likely colonizer. The patient is covered with Rocephin. May get a short course of oral antibiotic on discharge and continue supportive care. MMODL / IJN: [id number] /
[2021-07-03 00:30] LABS: Glucose,Whole Blood 126 mg/dL (75-99)
[2021-07-03] MEDS: INSULIN ASPART (NovoLOG) 100 UNIT/ML VIAL SQ SCH ×5 (00:31→21:55)
[2021-07-03 06:12] LABS: Glucose,Whole Blood 158 mg/dL (75-99)
[2021-07-03] MEDS: MIDODRINE 5 MG TAB PO SCH ×3 (06:21→17:29)
[2021-07-03 07:49] LABS: Anisocytosis Slight; Basophils # (A) 0.1 k/uL (0-0.2); Basophils % (A) 1 %; Eosinophils # (A) 0.2 k/uL (0-0.7); Eosinophils % (A) 2 %; HCT 28.8 % (39.0-53.0); HGB 9.5 gm/dL (13.0-17.5); Lymphocytes # (A) 0.9 k/uL (1.0-4.8); Lymphocytes % (A) 9 %; MCH 37.3 pg (25.0-35.0); MCHC 33.1 g/dL (31.0-37.0); MCV 112.8 fL (80.0-100.0); Macrocytosis Marked; Mean Platelet Volume 8.2; Monocytes # (A) 0.5 k/uL (0-1.0); Monocytes % (A) 5 %; Neutrophils # (A) 7.7 k/uL (1.3-7.7); Neutrophils % (A) 79 %; Platelet Count 366 k/uL (150-450); RBC 2.55 m/uL (4.30-5.90); WBC 9.7 k/uL (3.8-10.6)
[2021-07-03 08:03] LABS: INR 1.7 (<1.2); Prothrombin Time 16.7 sec (9.0-12.0)
[2021-07-03 08:05] LABS: Albumin 2.7 g/dL (3.5-5.0); Calcium 10.1 mg/dL (8.4-10.2); Potassium 4.6 mmol/L (3.5-5.1); Total Bilirubin 0.7 mg/dL (0.2-1.3); Total Protein 5.7 g/dL (6.3-8.2)
[2021-07-03] MEDS: IPRATROPIUM-ALBUTEROL 3 ML NEB INHALATION SCH ×4 (08:09→19:33)
[2021-07-03] MEDS: SYMBICORT 160-4.5 MCG INHALER INHALATION SCH ×2 (08:09→19:33)
--- NOTE | 2021-07-03 09:28 | P.PN ---
Subjective Patient is seen in follow-up for acute kidney injury on chronic kidney disease. Renal function stable. On IV Lasix. Nonoliguric. No chest pain or shortness of breath. Receiving tube feeds due to aspiration. Vital signs are stable. General: The patient appeared well nourished and normally developed. HEENT: Head exam is unremarkable. LUNGS: Breath sounds decreased. HEART: Regular rate and rhythm. ABDOMEN: No distention. PEG tube noted. EXTREMITITES: No edema. Objective - Vital Signs Vital signs: Vital Signs Temp 97.6 F 07/03/21 03:16 Pulse 92 07/03/21 08:22 Resp 18 07/03/21 03:16 BP 112/70 07/03/21 06:00 Pulse Ox 96 07/03/21 03:16 Intake & Output 07/02/21 07/03/21 07/03/21 18:59 06:59 18:59 Intake Total 0 920 Output Total 1500 2024 Balance -1500 -1105 Weight 95 kg Intake: IV 10 Invasive Line 7 10 Intake, IV Titration 100 Amount Piperacillin-Tazobactam 3 100 .375 gm In Sodium Chloride 0.9% 100 ml @ 25 mls/hr IVPB Q8HR [facility] Rx# :[id number] Oral 0 Tube Feeding 810 Output: Urine 1500 2024 Other: Voiding Method Indwelling Catheter - Labs CBC & Chem 7: 07/03/21 07:19 07/03/21 07:19 Labs: Abnormal Lab Results - Last 24 Hours (Table) 07/02/21 07/02/21 07/02/21 Range/Units 07:52 11:51 17:41 RBC 2.61 L (4.30-5.90) m/uL Hgb 9.3 L (13.0-17.5) gm/dL Hct 29.4 L (39.0-53.0) % MCV 112.8 H (80.0-100.0) fL MCH 35.7 H (25.0-35.0) pg RDW 16.9 H (11.5-15.5) % Lymphocytes # 0.9 L (1.0-4.8) k/uL Macrocytosis Marked A PT (9.0-12.0) sec INR (<1.2) Chloride (98-107) mmol/L Carbon Dioxide (22-30) mmol/L BUN (9-20) mg/dL Creatinine (0.66-1.25) mg/dL Glucose (74-99) mg/dL POC Glucose (mg/dL) 137 H 145 H (75-99) mg/dL AST (17-59) U/L ALT (4-49) U/L Total Protein (6.3-8.2) g/dL Albumin (3.5-5.0) g/dL 07/03/21 07/03/21 07/03/21 Range/Units 00:28 06:10 07:19 RBC 2.55 L (4.30-5.90) m/uL Hgb 9.5 L (13.0-17.5) gm/dL Hct 28.8 L (39.0-53.0) % MCV 112.8 H (80.0-100.0) fL MCH 37.3 H (25.0-35.0) pg RDW 17.0 H (11.5-15.5) % Lymphocytes # (1.0-4.8) k/uL Macrocytosis Marked A PT (9.0-12.0) sec INR (<1.2) Chloride (98-107) mmol/L Carbon Dioxide (22-30) mmol/L BUN (9-20) mg/dL Creatinine (0.66-1.25) mg/dL Glucose (74-99) mg/dL POC Glucose (mg/dL) 126 H 158 H (75-99) mg/dL AST (17-59) U/L ALT (4-49) U/L Total Protein (6.3-8.2) g/dL Albumin (3.5-5.0) g/dL 07/03/21 07/03/21 Range/Units 07:19 07:19 RBC (4.30-5.90) m/uL Hgb (13.0-17.5) gm/dL Hct (39.0-53.0) % MCV (80.0-100.0) fL MCH (25.0-35.0) pg RDW (11.5-15.5) % Lymphocytes # (1.0-4.8) k/uL Macrocytosis PT 16.7 H (9.0-12.0) sec INR 1.7 H (<1.2) Chloride 97 L (98-107) mmol/L Carbon Dioxide 33 H (22-30) mmol/L BUN 39 H (9-20) mg/dL Creatinine 1.84 H (0.66-1.25) mg/dL Glucose 130 H (74-99) mg/dL POC Glucose (mg/dL) (75-99) mg/dL AST 247 H (17-59) U/L ALT 423 H (4-49) U/L Total Protein 5.7 L (6.3-8.2) g/dL Albumin 2.7 L (3.5-5.0) g/dL Microbiology - Last 24 Hours (Table) 06/30/21 11:30 Gram Stain - Final Sputum Sputum Culture - Final Jenae albicans Assessment and Plan Plan: Assessment: 1. Acute kidney injury secondary to ATN secondary to hemodynamic instability and component of cardiorenal syndrome. Creatinine stable at 1.84 today. No hydronephrosis noted on kidney ultrasound. UA fairly benign. 2. Chronic kidney disease 3a with baseline creatinine near 1.6-2 secondary to solitary right kidney and obstructive uropathy. 3. Status post left nephrectomy. 4. Status post removal of left nephrostomy tube on 06/11/2021. 5. Hyperkalemia secondary to acute kidney injury and enalapril. Resolved. 6. Diabetes mellitus. 7. Volume overload. Improving with diuresis. 8. Hypomagnesemia from poor intake. Replaced. Stable. 9. Orthostatic hypotension. Cardiology following. On midodrine. Cortisol level not low. TSH normal. 10. Urinary retention. Has a Lara catheter. 11. A. fib with RVR on amiodarone and Lopressor. 12. Anemia of chronic kidney disease. Iron deficiency noted - status post IV iron. 13. Chronic chronic diastolic CHF with severe pulmonary hypertension. 14. Status post PEG tube placement due to aspiration. Plan: Maintain Lasix. Avoid nephrotoxins. Continue to monitor renal function and urine output.
[2021-07-03] MEDS: METOPROLOL TARTRATE 25 MG TAB PO SCH ×3 (09:39→21:56)
[2021-07-03] MEDS: FAMOTIDINE 20 MG TAB PO SCH (09:39)
[2021-07-03] MEDS: FUROSEMIDE 10 MG/ML 2 ML VIAL IV SCH ×2 (09:39→21:55)
[2021-07-03] MEDS: AMIODARONE 200 MG TAB PO SCH ×2 (09:39→21:55)
[2021-07-03] MEDS: CYANOCOBALAMIN 500 MCG TAB PO SCH (09:39)
[2021-07-03] MEDS: FOLIC ACID 1 MG TAB PO SCH (09:39)
[2021-07-03] MEDS: PIPERACILLIN-TAZOBACTAM 3.375 GM in SODIUM CHLORIDE 0.9% 100 ML IVPB SCH (09:40)
[2021-07-03] MEDS: VENLAFAXINE HCL 75 MG TAB PO SCH ×2 (09:40→22:12)
[2021-07-03] MEDS: HYDROmorphone 0.5 MG/0.5 ML SYRINGE IVP PRN (09:42)
[2021-07-03 10:42] LABS: Poikilocytosis (M) Present; Polychromasia Present
--- NOTE | 2021-07-03 10:56 | P.PN ---
Subjective Progress Note Date: 07/03/21 On today's evaluation of 07/03/2021, the patient is still on oxygen at is of oxygen by nasal cannula. His cough and THICK purulent brownish material consistent with pneumonia. He is receiving enteral feeding for nutritional support. He is currently receiving feeding in the form of Glucerna at the rate of 60 mL an hour. He is stooling. No abdominal distention. Abnormal liver function tests are also improving. Active site is dry clean and intact. In terms of antibiotic coverage the patient is currently receiving IV Zosyn and sputum cultures will be sent today. He is awake and alert and is allowing commands and answering questions. Infectious disease on the case. His kidney function is stable. In acute on top of chronic kidney failure and his kidney functions been gradually improving. No fever. No altered mentation. 7. Hemoglobin is at 9.5 which is stable. Creatinine is down to 1.8. AST is down to 247, ALT of 423 and the total bilirubin is at 0.7. Alkaline phosphatase is at 109. Objective - Vital Signs Vital signs: Vital Signs Temp 97.6 F 07/03/21 03:16 Pulse 92 07/03/21 08:22 Resp 18 07/03/21 03:16 BP 112/70 07/03/21 06:00 Pulse Ox 96 07/03/21 03:16 Intake & Output 07/02/21 07/03/21 07/03/21 18:59 06:59 18:59 Intake Total 0 920 Output Total 1500 2024 Balance -1500 -1105 Weight 95 kg Intake: IV 10 Invasive Line 7 10 Intake, IV Titration 100 Amount Piperacillin-Tazobactam 3 100 .375 gm In Sodium Chloride 0.9% 100 ml @ 25 mls/hr IVPB Q8HR [facility] Rx# :[id number] Oral 0 Tube Feeding 810 Output: Urine 1500 2024 Other: Voiding Method Indwelling Catheter - Exam GENERAL EXAM: Alert, pleasant, chronically ill looking 61-year-old male, sitting up in the recliner, on 3 L of oxygen, with pulse ox of 94 % comfortable in no apparent distress. HEAD: Normocephalic/atraumatic. EYES: Normal reaction of pupils, equal size. Conjunctiva pink, sclera white. NOSE: Clear with pink turbinates. THROAT: No erythema or exudates. NECK: No masses, no JVD, no thyroid enlargement, no adenopathy. CHEST: No chest wall deformity. Symmetrical expansion. LUNGS: Equal air entry with diminished breath sounds and some crackles at the bases CVS: Regular rate and rhythm, normal S1 and S2, no gallops, no murmurs, no rubs ABDOMEN: Soft, nontender. No hepatosplenomegaly, normal bowel sounds, no guarding or rigidity. The PEG tube and the exit site is dry clean and intact. EXTREMITIES: No clubbing, no edema, no cyanosis, 2+ pulses and upper and lower extremities. MUSCULOSKELETAL: Muscle strength and tone normal. SPINE: No scoliosis or deformity SKIN: No rashes CENTRAL NERVOUS SYSTEM: Alert and oriented -3. No focal deficits, tone is normal in all 4 extremities. PSYCHIATRIC: Alert and oriented -3. Appropriate affect. Intact judgment and insight. - Labs CBC & Chem 7: 07/03/21 07:19 07/03/21 07:19 Labs: Abnormal Lab Results - Last 24 Hours (Table) 07/02/21 07/02/21 07/03/21 Range/Units 11:51 17:41 00:28 RBC (4.30-5.90) m/uL Hgb (13.0-17.5) gm/dL Hct (39.0-53.0) % MCV (80.0-100.0) fL MCH (25.0-35.0) pg RDW (11.5-15.5) % Lymphocytes # (1.0-4.8) k/uL Macrocytosis PT (9.0-12.0) sec INR (<1.2) Chloride (98-107) mmol/L Carbon Dioxide (22-30) mmol/L BUN (9-20) mg/dL Creatinine (0.66-1.25) mg/dL Glucose (74-99) mg/dL POC Glucose (mg/dL) 137 H 145 H 126 H (75-99) mg/dL AST (17-59) U/L ALT (4-49) U/L Total Protein (6.3-8.2) g/dL Albumin (3.5-5.0) g/dL 07/03/21 07/03/21 07/03/21 Range/Units 06:10 07:19 07:19 RBC 2.55 L (4.30-5.90) m/uL Hgb 9.5 L (13.0-17.5) gm/dL Hct 28.8 L (39.0-53.0) % MCV 112.8 H (80.0-100.0) fL MCH 37.3 H (25.0-35.0) pg RDW 17.0 H (11.5-15.5) % Lymphocytes # 0.9 L (1.0-4.8) k/uL Macrocytosis Marked A PT (9.0-12.0) sec INR (<1.2) Chloride 97 L (98-107) mmol/L Carbon Dioxide 33 H (22-30) mmol/L BUN 39 H (9-20) mg/dL Creatinine 1.84 H (0.66-1.25) mg/dL Glucose 130 H (74-99) mg/dL POC Glucose (mg/dL) 158 H (75-99) mg/dL AST 247 H (17-59) U/L ALT 423 H (4-49) U/L Total Protein 5.7 L (6.3-8.2) g/dL Albumin 2.7 L (3.5-5.0) g/dL 07/03/21 Range/Units 07:19 RBC (4.30-5.90) m/uL Hgb (13.0-17.5) gm/dL Hct (39.0-53.0) % MCV (80.0-100.0) fL MCH (25.0-35.0) pg RDW (11.5-15.5) % Lymphocytes # (1.0-4.8) k/uL Macrocytosis PT 16.7 H (9.0-12.0) sec INR 1.7 H (<1.2) Chloride (98-107) mmol/L Carbon Dioxide (22-30) mmol/L BUN (9-20) mg/dL Creatinine (0.66-1.25) mg/dL Glucose (74-99) mg/dL POC Glucose (mg/dL) (75-99) mg/dL AST (17-59) U/L ALT (4-49) U/L Total Protein (6.3-8.2) g/dL Albumin (3.5-5.0) g/dL Microbiology - Last 24 Hours (Table) 06/30/21 11:30 Gram Stain - Final Sputum Sputum Culture - Final Jenae albicans Assessment and Plan Plan: 1 Status post fall at home or could be related to orthostatic hypotension, possible syncope or possibility of cardiac arrhythmia, considering the patient is having intermittent episodes of A. fib with RVR 2 bilateral pneumonia with extensive sputum production, sputum is positive for jenae. Nevertheless the patient is bringing up purulent amount of copious brownish thick material. Consider hospital-acquired pneumonia. We'll obtain a repeat sputum Gram stain and culture. We'll also order a noncontrast CAT scan of the chest. 3 Dysphagia, patient had malik aspiration during modified barium swallow evaluation and at this time is complete nothing by mouth , post PEG tube placement 4 Chronic atrial fibrillation , currently on long-term and to coagulation with warfarin and the patient's rate is controlled. 5. Hypovolemic hyponatremia, recovered 6. Type 2 diabetes mellitus, currently on Glucerna. 7. History of hypertension 8. History of cerebellar stroke 9. History of 08-ibpp-vffd smoking 10 chronic kidney failure, creatinine is improving and the creatinine is down to 1.8. 11 history of nephrectomy, Nephrolithiasis with left ureteral obstruction, status post recent removal of nephrostomy recently 12 Abnormal LFTs, improving, asymptomatic Plan: Continue IV Zosyn Gram stain and culture of the sputum Noncontrast CAT scan of the chest Maintain aspiration precautions Continue DuoNeb updrafts Monitor blood sugars monitor LFTs Monitor renal function We'll continue to follow
[2021-07-03 11:58] LABS: Glucose,Whole Blood 150 mg/dL (75-99)
[2021-07-03 16:26] LABS: Glucose,Whole Blood 135 mg/dL (75-99)
[2021-07-03] MEDS: AMOXIC-POT CLAV 200-28.5MG/5ML 100 ML BOTTLE PEG/G-TUBE SCH ×2 (17:29→23:30)
[2021-07-03] MEDS ORDERED: WARFARIN 2 MG TAB PO ONE (18:00)
--- NOTE | 2021-07-03 18:43 | P.PN ---
Subjective Progress Note Date: 07/02/21 Everett Juárez, is a 61-year-old male patient of Dr. Jama, who presented to [facility] emergency room after sustaining a fall, and complaining of generalized weakness and dizziness, patient is not clear whether he passed out or had any loss of consciousness. Patient was also complaining of chest pain in the EMS, EKG was within normal limits and troponin level was less than 0.01 He was evaluated in the emergency room vital examination on presentation revealed a temperature of 97.4 pulse 71 respirations 16 blood pressure 87/50 pulse ox 94% on room air Laboratory data revealed a white blood count of 8.6 hemoglobin 12.0 platelet count 338 INR 1.2 sodium 128 potassium 6.2 chloride 99 CO2 22 BUN 17 creatinine 2.01 lactic acid on presentation 2.1 urine analysis did not reveal evidence of significant infection. Testing in the emergency room revealed EKG revealed normal sinus rhythm normal EKG chest x-ray done in the emergency room revealed no acute lung disease there was prominent pulmonary leon that could be related to adenopathy. 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 Patient was admitted to medical floor for further evaluation and treatment. Past medical history is significant for history of hypertension, history of hyperlipidemia, history of chronic kidney disease, history of [id number] diabetes mellitus, history of previous stroke, history of paroxysmal atrial fibrillation maintained on Coumadin, history of COPD, patient still smoke a few cigarettes per day, he denies alcohol use. On review of systems Patient is alert and responsive in no distress, he denies any complaints there is no fever or chills no headache or dizziness no chest pain no shortness of breath no palpitation no cough no nausea or vomiting no abdominal pain no diarrhea no blood in the stools no burning with urination no frequency or urgency and no hematuria, there is no weakness or numbness in any of the extremities no change in vision speech, gait was not tested. On 06/16/2021 patient was seen and examined on the telemetry floor he is alert and oriented 3 in no apparent distress he is still complaining of dizziness and weakness otherwise he denies any complaints there is no fever or chills no headache no chest pain no shortness of breath no cough no palpitation no nausea or vomiting no abdominal pain no diarrhea no blood in the stools no burning with urination no frequency or urgency and no hematuria there is no weakness or numbness in any of the extremities no change in vision or in speech On 06/17/2021 Patient was seen and examined on the medical floor, he is alert and oriented x 3 in no distress, he denies any complaints there is no fever or chills no headache or dizziness no chest pain no shortness of breath no palpitation no cough no nausea or vomiting no abdominal pain no diarrhea no blood in the stools no burning with urination no frequency or urgency and no hematuria, there is no weakness or numbness in any of the extremities no change in vision or speech, gait was not tested at this time, patient had significant orthostatic hypotension, this was discussed with cardiology, and dose of Catapres was adjusted down to 0.1 mg by mouth twice a day, patient will be reevaluated by cardiology in a.m. On 06/18/2021 patient was seen and examined on the medical floor, he is alert and oriented 3 in no distress, he is complaining of weakness otherwise he denies any specific complaints, there is no fever or chills no headache or dizziness no chest pain no shortness of breath no cough no nausea or vomiting no abdominal pain no diarrhea no blood in the stools no burning with urination no frequency or urgency no hematuria, there is no weakness or numbness in any of the extremities there is no change in vision speech or gait. Repeat orthostatic hypotension reveals significant drop while standing, cardiology are following, yesterday dose of Catapres was decreased to 0.1 by mouth twice daily, awaiting further recommendation from cardiology On 06/19/2021 patient was seen and examined on the medical floor, he is alert and oriented 3 in no distress, he is complaining of weakness otherwise he denies any specific complaints, he is still having significant orthostatic hypotension was significant drop in blood pressure when patient stands up. the re is no fever or chills no headache or dizziness no chest pain no shortness of breath no cough no nausea or vomiting no abdominal pain no diarrhea no blood in the stools no burning with urination no frequency or urgency no hematuria, there is no weakness or numbness in any of the extremities there is no change in vision speech or gait. Cardiology are following at this time Catapres is being discontinued and midodrine was added to medication regimen will continue to monitor closely. On 06/20/2021 patient was seen and examined on the medical floor he is alert and oriented 3 in no apparent distress, this morning he had an episode of palpitation and severe shortness of breath, EKG revealed SVT versus A. fib with RVR with a heart rate of 186 patient was transferred to [facility]. he was seen by ca rdiology and was started on IV amiodarone, chest x-ray was done today and was suspicious for right sided infiltrate suggestive of pneumonia patient is stating that he is having some cough with yellow sputum production WBC is low, patient was started on IV antibiotic Zosyn, and pulmonary consultation was requested. Patient denies any fever or chills no headache or dizziness no chest pain no nausea or vomiting no abdominal pain no diarrhea and no urinary symptoms. On 06/21/2021 patient was seen and examined on the medical floor he is complaining of cough otherwise he denies any complaints at this time there is no fever or chills no headache or dizziness no chest pain no shortness of breath no nausea or vomiting no abdominal pain no diarrhea no blood in the stools no burning with urination no frequency or urgency and no hematuria, yesterday patient had an episode of A. fib with RVR, he was started on IV amiodarone by cardiology and was transferred to telemetry floor, also chest x-ray revealed evidence of right basilar infiltrate, he was started on IV Zosyn pulmonary consultation was requested, sputum culture was ordered On 06/22/2021 Patient was seen and examined on the medical floor, he is alert and oriented x 3 in no distress, he is complaining of cough otherwise he denies any complaints there is no fever or chills no headache or dizziness no chest pain no shortness of breath no palpitation no cough no nausea or vomiting no abdominal pain no diarrhea no blood in the stools no burning with urination no frequency or urgency and no hematuria, there is no weakness or numbness in any of the extremities no change in vision speech or gait. Patient failed swallow evaluation with all food consistency today, he is kept nothing by mouth consultation for Dr. Zacarias for PEG tube placement was initiated. On 06/23/2021 patient is alert and oriented 3. Patient is resting comfortably in bed. Patient currently maintained on amiodarone drip per cardiology. Patient also maintained on IV Zosyn for aspiration pneumonia. Surgical services have been consulted for PEG tube placement. At this time pulmonary, cardiology, nephrology and surgical services following. Repeat labs have been ordered. Patient is still complaining of chest congestion and cough. Patient denies chest pain. Patient denies nausea vomiting or diarrhea. Patient denies any urinary burning or frequency. On 06/24/2021 Patient was seen and examined on the medical floor, he is alert and oriented x 3 in no distress, he denies any complaints there is no fever or chills no headache or dizziness no chest pain no shortness of breath no palpitation no cough no nausea or vomiting no abdominal pain no diarrhea no blood in the stools no burning with urination no frequency or urgency and no hematuria, there is no weakness or numbness in any of the extremities no change in vision speech, today INR is 5.3 Coumadin is on hold Will give 1 dose of vitamin K 2 mg IV patient is nothing by mouth , he is awaiting PEG tube placement On 06/24/2021 patient is alert and oriented 3 INR 1.2. Patient maintained on IV amiodarone. Tentative plans for PEG tube placement tomorrow per surgical services. . At this time patient remains with productive cough. Patient denies chest pain. Patient denies nausea vomiting or diarrhea. Patient denies any urinary burning or frequency On 06/26/2021 Patient was seen and examined on the medical floor, he is alert and oriented x 3 in no distress, he denies any complaints there is no fever or chills no headache or dizziness no chest pain no shortness of breath no palp itation no cough no nausea or vomiting no abdominal pain no diarrhea no blood in the stools no burning with urination no frequency or urgency and no hematuria, there is no weakness or numbness in any of the extremities no change in vision speech, patient received vitamin K his INR is low we are awaiting PEG tube placement On 06/27/2021 Patient was seen and examined on the medical floor, he is alert and oriented x 3 in no distress, he denies any complaints there is no fever or chills no headache or dizziness no chest pain no shortness of breath no palpitation no cough no nausea or vomiting no abdominal pain no diarrhea no blood in the stools no burning with urination no frequency or urgency and no hematuria, there is no weakness or numbness in any of the extremities no change in vision speech, Patient underwent PEG tube placement and was started on PEG tube feeding, will continue to follow closely will recheck chest x-ray in a.m. On 06/28/2021 patient alert and oriented 3. Repeat chest x-ray showing worsening interstitial edema with superimposed infiltrates versus atelectasis. Small pleural effusion. We'll reconsult pulmonary services. Patient remains on IV Zosyn. Patient does have PEG tube in place tube feeds running. At this time patient denies chest pain. Patient does report occasional cough with sputum production. Patient denies nausea vomiting or diarrhea. Patient denies any urinary burning or frequency. On 06/29/2021 patient was seen and examined on the telemetry floor, he is alert and oriented 3 in no distress, he is still complaining of shortness of breath and occasional cough, his chest x-ray done yesterday reveals worsening of the pulmonary infiltrate, he is still maintained on IV Zosyn, and is maintained on oxygen at 5 L via nasal cannula, pulmonary consultation was resubmitted yesterday for reevaluation and further advice regarding antibiotic treatment and further management of his pulmonary consultation, at this time patient is not ready yet for discharge to a rehab center, otherwise he denies any complaints there is no fever or chills no chest pain no nausea or vomiting no abdominal pain no diarrhea no blood in the stools and no urinary symptoms PEG tube site is clear. 06/30/2021 patient alert and oriented 3. Patient still having significant sputum production. Will order repeat sputum sample consults infectious disease services. Patient's liver enzymes also significantly elevated. Lipitor DC'd. Liver ultrasound will be ordered. Patient denies chest pain. Patient denies nausea vomiting or diarrhea. Patient denies any urinary burning or frequency On 07/01/2021 Patient was seen and examined on the medical floor, he is alert and oriented x 3 in no distress, he denies any complaints there is no fever or chills no headache or dizziness no chest pain no shortness of breath no palpitation no cough no nausea or vomiting no abdominal pain no diarrhea no blood in the stools no burning with urination no frequency or urgency and no hematuria, there is no weakness or numbness in any of the extremities no change in vision speech. Liver enzymes are quite elevated but are improving gradually, Lipitor was discontinued and Tylenol was discontinued, will continue to monitor On 07/02/2021 Patient is alert and oriented x 3 in no distress, he denies any complaints there is no fever or chills no headache or dizziness no chest pain no shortness of breath no palpitation no cough no nausea or vomiting no abdominal pain no diarrhea no blood in the stools no burning with urination no frequency or urgency and no hematuria, there is no weakness or numbness in any of the extremities no change in vision speech. Liver enzymes are quite elevated but are improving gradually, Lipitor was discontinued and Tylenol was discontinued, will continue to monitor, kidney function remains slightly elevated Objective - Vital Signs Vital signs: Vital Signs Temp 97.9 F 07/02/21 03:05 Pulse 80 07/02/21 11:50 Resp 18 07/02/21 03:05 BP 126/75 07/02/21 06:24 Pulse Ox 95 07/02/21 03:05 Intake & Output 07/01/21 07/02/21 07/02/21 18:59 06:59 18:59 Intake Total 0 580 0 Output Total 1380 Balance 0 -800 0 Weight 93.5 kg Intake: Intake, IV Titration 100 Amount Piperacillin-Tazobactam 3 100 .375 gm In Sodium Chloride 0.9% 100 ml @ 25 mls/hr IVPB Q8HR [facility] Rx# :[id number] Oral 0 0 Tube Feeding 480 Output: Urine 1380 Other: Voiding Method Indwelling Catheter # Voids 1 # Bowel Movements 1 - Exam In general patient is alert and responsive in no distress HEENT head normocephalic and atraumatic Neck is supple no JVD no goiter no lymphadenopathy no carotid bruit Chest examination is clear to auscultation no crackles no wheezing Cardiac exam reveals regular heart sounds S1 and S2 no gallops no murmurs Abdomen is soft nontender no organomegaly with normal bowel sounds Extremity exam reveals no edema no cyanosis or clubbing Neurological examination reveals no gross focal deficits - Labs CBC & Chem 7: 07/03/21 07:19 07/03/21 07:19 Labs: Abnormal Lab Results - Last 24 Hours (Table) 07/01/21 07/01/21 07/02/21 Range/Units 08:04 17:28 00:00 RBC (4.30-5.90) m/uL Hgb (13.0-17.5) gm/dL Hct (39.0-53.0) % MCV (80.0-100.0) fL MCH (25.0-35.0) pg RDW (11.5-15.5) % Lymphocytes # (1.0-4.8) k/uL Macrocytosis PT (9.0-12.0) sec INR (<1.2) BUN (9-20) mg/dL Creatinine (0.66-1.25) mg/dL Glucose (74-99) mg/dL POC Glucose (mg/dL) 131 H 136 H (75-99) mg/dL AST (17-59) U/L ALT (4-49) U/L Total Protein (6.3-8.2) g/dL Albumin (3.5-5.0) g/dL Procalcitonin 0.32 H (0.02-0.09) ng/mL 07/02/21 07/02/21 07/02/21 Range/Units 06:17 07:52 07:52 RBC 2.61 L (4.30-5.90) m/uL Hgb 9.3 L (13.0-17.5) gm/dL Hct 29.4 L (39.0-53.0) % MCV 112.8 H (80.0-100.0) fL MCH 35.7 H (25.0-35.0) pg RDW 16.9 H (11.5-15.5) % Lymphocytes # 0.9 L (1.0-4.8) k/uL Macrocytosis Marked A PT (9.0-12.0) sec INR (<1.2) BUN 37 H (9-20) mg/dL Creatinine 1.90 H (0.66-1.25) mg/dL Glucose 149 H (74-99) mg/dL POC Glucose (mg/dL) 154 H (75-99) mg/dL AST 600 H (17-59) U/L ALT 560 H (4-49) U/L Total Protein 5.7 L (6.3-8.2) g/dL Albumin 2.7 L (3.5-5.0) g/dL Procalcitonin (0.02-0.09) ng/mL 07/02/21 07/02/21 Range/Units 07:52 11:51 RBC (4.30-5.90) m/uL Hgb (13.0-17.5) gm/dL Hct (39.0-53.0) % MCV (80.0-100.0) fL MCH (25.0-35.0) pg RDW (11.5-15.5) % Lymphocytes # (1.0-4.8) k/uL Macrocytosis PT 15.8 H (9.0-12.0) sec INR 1.6 H (<1.2) BUN (9-20) mg/dL Creatinine (0.66-1.25) mg/dL Glucose (74-99) mg/dL POC Glucose (mg/dL) 137 H (75-99) mg/dL AST (17-59) U/L ALT (4-49) U/L Total Protein (6.3-8.2) g/dL Albumin (3.5-5.0) g/dL Procalcitonin (0.02-0.09) ng/mL Microbiology - Last 24 Hours (Table) 06/30/21 11:30 Gram Stain - Final Sputum Sputum Culture - Final Jenae albicans Assessment and Plan Plan: Fall at home with unclear history whether patient had a syncopal episode or loss of consciousness Episode of chest pain while in the ambulance Atrial fibrillation with rapid ventricular response. Patient started on amiodarone drip per cardiology Underlying history of paroxysmal atrial fibrillation, maintained on Coumadin however her INR was subtherapeutic at 1.2 on presentation, today INR is therapeutic at 2.7 Evidence of dehydration with electrolyte imbalance with hyponatremia and hyperkalemia Underlying history of chronic kidney disease Underlying history of [id number] diabetes mellitus, no evidence of hypoglycemia Underlying history of hypertension Previous history of cerebellar stroke. Right basilar infiltrate suggestive of pneumonia, patient started on IV Zosyn, pulmonary consultation requested Dysphagia. PEG tube placement per Dr. ordonez Elevated liver enzymes. Lipitor DC'd. Liver ultrasound ordered DVT prophylaxis Coumadin. GI prophylaxis Pepcid Pulmonary, cardiology, nephrology and surgical services following Patient maintained on IV Zosyn s/p peg tube placement Repeat labs ordered PT OT services consulted Social work consulted for possible ECF placement Pulmonary services reconsulted for worsening chest x-ray Infectious disease consulted for worsening pneumonia
--- NOTE | 2021-07-03 19:32 | P.PN ---
Subjective Progress Note Date: 07/03/21 Everett Juárez, is a 61-year-old male patient of Dr. Jama, who presented to [facility] emergency room after sustaining a fall, and complaining of generalized weakness and dizziness, patient is not clear whether he passed out or had any loss of consciousness. Patient was also complaining of chest pain in the EMS, EKG was within normal limits and troponin level was less than 0.01 He was evaluated in the emergency room vital examination on presentation revealed a temperature of 97.4 pulse 71 respirations 16 blood pressure 87/50 pulse ox 94% on room air Laboratory data revealed a white blood count of 8.6 hemoglobin 12.0 platelet count 338 INR 1.2 sodium 128 potassium 6.2 chloride 99 CO2 22 BUN 17 creatinine 2.01 lactic acid on presentation 2.1 urine analysis did not reveal evidence of significant infection. Testing in the emergency room revealed EKG revealed normal sinus rhythm normal EKG chest x-ray done in the emergency room revealed no acute lung disease there was prominent pulmonary leon that could be related to adenopathy. 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 Patient was admitted to medical floor for further evaluation and treatment. Past medical history is significant for history of hypertension, history of hyperlipidemia, history of chronic kidney disease, history of ouo-tfqfxsb-fapogjhyy diabetes mellitus, history of previous stroke, history of paroxysmal atrial fibrillation maintained on Coumadin, history of COPD, patient still smoke a few cigarettes per day, he denies alcohol use. On review of systems Patient is alert and responsive in no distress, he denies any complaints there is no fever or chills no headache or dizziness no chest pain no shortness of breath no palpitation no cough no nausea or vomiting no abdominal pain no diarrhea no blood in the stools no burning with urination no frequency or urgency and no hematuria, there is no weakness or numbness in any of the extremities no change in vision speech, gait was not tested. On 06/16/2021 patient was seen and examined on the telemetry floor he is alert and oriented 3 in no apparent distress he is still complaining of dizziness and weakness otherwise he denies any complaints there is no fever or chills no headache no chest pain no shortness of breath no cough no palpitation no nausea or vomiting no abdominal pain no diarrhea no blood in the stools no burning with urination no frequency or urgency and no hematuria there is no weakness or numbness in any of the extremities no change in vision or in speech On 06/17/2021 Patient was seen and examined on the medical floor, he is alert and oriented x 3 in no distress, he denies any complaints there is no fever or chills no headache or dizziness no chest pain no shortness of breath no palpitation no cough no nausea or vomiting no abdominal pain no diarrhea no blood in the stools no burning with urination no frequency or urgency and no hematuria, there is no weakness or numbness in any of the extremities no change in vision or speech, gait was not tested at this time, patient had significant orthostatic hypotension, this was discussed with cardiology, and dose of Catapres was adjusted down to 0.1 mg by mouth twice a day, patient will be reevaluated by cardiology in a.m. On 06/18/2021 patient was seen and examined on the medical floor, he is alert and oriented 3 in no distress, he is complaining of weakness otherwise he denies any specific complaints, there is no fever or chills no headache or dizziness no chest pain no shortness of breath no cough no nausea or vomiting no abdominal pain no diarrhea no blood in the stools no burning with urination no frequency or urgency no hematuria, there is no weakness or numbness in any of the extremities there is no change in vision speech or gait. Repeat orthostatic hypotension reveals significant drop while standing, cardiology are following, yesterday dose of Catapres was decreased to 0.1 by mouth twice daily, awaiting further recommendation from cardiology On 06/19/2021 patient was seen and examined on the medical floor, he is alert and oriented 3 in no distress, he is complaining of weakness otherwise he denies any specific complaints, he is still having significant orthostatic hypotension was significant drop in blood pressure when patient stands up. the re is no fever or chills no headache or dizziness no chest pain no shortness of breath no cough no nausea or vomiting no abdominal pain no diarrhea no blood in the stools no burning with urination no frequency or urgency no hematuria, there is no weakness or numbness in any of the extremities there is no change in vision speech or gait. Cardiology are following at this time Catapres is being discontinued and midodrine was added to medication regimen will continue to monitor closely. On 06/20/2021 patient was seen and examined on the medical floor he is alert and oriented 3 in no apparent distress, this morning he had an episode of palpitation and severe shortness of breath, EKG revealed SVT versus A. fib with RVR with a heart rate of 186 patient was transferred to [facility]. he was seen by [facility] rdiology and was started on IV amiodarone, chest x-ray was done today and was suspicious for right sided infiltrate suggestive of pneumonia patient is stating that he is having some cough with yellow sputum production WBC is low, patient was started on IV antibiotic Zosyn, and pulmonary consultation was requested. Patient denies any fever or chills no headache or dizziness no chest pain no nausea or vomiting no abdominal pain no diarrhea and no urinary symptoms. On 06/21/2021 patient was seen and examined on the medical floor he is complaining of cough otherwise he denies any complaints at this time there is no fever or chills no headache or dizziness no chest pain no shortness of breath no nausea or vomiting no abdominal pain no diarrhea no blood in the stools no burning with urination no frequency or urgency and no hematuria, yesterday patient had an episode of A. fib with RVR, he was started on IV amiodarone by cardiology and was transferred to telemetry floor, also chest x-ray revealed evidence of right basilar infiltrate, he was started on IV Zosyn pulmonary consultation was requested, sputum culture was ordered On 06/22/2021 Patient was seen and examined on the medical floor, he is alert and oriented x 3 in no distress, he is complaining of cough otherwise he denies any complaints there is no fever or chills no headache or dizziness no chest pain no shortness of breath no palpitation no cough no nausea or vomiting no abdominal pain no diarrhea no blood in the stools no burning with urination no frequency or urgency and no hematuria, there is no weakness or numbness in any of the extremities no change in vision speech or gait. Patient failed swallow evaluation with all food consistency today, he is kept nothing by mouth consultation for Dr. Zacarias for PEG tube placement was initiated. On 06/23/2021 patient is alert and oriented 3. Patient is resting comfortably in bed. Patient currently maintained on amiodarone drip per cardiology. Patient also maintained on IV Zosyn for aspiration pneumonia. Surgical services have been consulted for PEG tube placement. At this time pulmonary, cardiology, nephrology and surgical services following. Repeat labs have been ordered. Patient is still complaining of chest congestion and cough. Patient denies chest pain. Patient denies nausea vomiting or diarrhea. Patient denies any urinary burning or frequency. On 06/24/2021 Patient was seen and examined on the medical floor, he is alert and oriented x 3 in no distress, he denies any complaints there is no fever or chills no headache or dizziness no chest pain no shortness of breath no palpitation no cough no nausea or vomiting no abdominal pain no diarrhea no blood in the stools no burning with urination no frequency or urgency and no hematuria, there is no weakness or numbness in any of the extremities no change in vision speech, today INR is 5.3 Coumadin is on hold Will give 1 dose of vitamin K 2 mg IV patient is nothing by mouth , he is awaiting PEG tube placement On 06/24/2021 patient is alert and oriented 3 INR 1.2. Patient maintained on IV amiodarone. Tentative plans for PEG tube placement tomorrow per surgical services. . At this time patient remains with productive cough. Patient denies chest pain. Patient denies nausea vomiting or diarrhea. Patient denies any urinary burning or frequency On 06/26/2021 Patient was seen and examined on the medical floor, he is alert and oriented x 3 in no distress, he denies any complaints there is no fever or chills no headache or dizziness no chest pain no shortness of breath no palp itation no cough no nausea or vomiting no abdominal pain no diarrhea no blood in the stools no burning with urination no frequency or urgency and no hematuria, there is no weakness or numbness in any of the extremities no change in vision speech, patient received vitamin K his INR is low we are awaiting PEG tube placement On 06/27/2021 Patient was seen and examined on the medical floor, he is alert and oriented x 3 in no distress, he denies any complaints there is no fever or chills no headache or dizziness no chest pain no shortness of breath no palpitation no cough no nausea or vomiting no abdominal pain no diarrhea no blood in the stools no burning with urination no frequency or urgency and no hematuria, there is no weakness or numbness in any of the extremities no change in vision speech, Patient underwent PEG tube placement and was started on PEG tube feeding, will continue to follow closely will recheck chest x-ray in a.m. On 06/28/2021 patient alert and oriented 3. Repeat chest x-ray showing worsening interstitial edema with superimposed infiltrates versus atelectasis. Small pleural effusion. We'll reconsult pulmonary services. Patient remains on IV Zosyn. Patient does have PEG tube in place tube feeds running. At this time patient denies chest pain. Patient does report occasional cough with sputum production. Patient denies nausea vomiting or diarrhea. Patient denies any urinary burning or frequency. On 06/29/2021 patient was seen and examined on the telemetry floor, he is alert and oriented 3 in no distress, he is still complaining of shortness of breath and occasional cough, his chest x-ray done yesterday reveals worsening of the pulmonary infiltrate, he is still maintained on IV Zosyn, and is maintained on oxygen at 5 L via nasal cannula, pulmonary consultation was resubmitted yesterday for reevaluation and further advice regarding antibiotic treatment and further management of his pulmonary consultation, at this time patient is not ready yet for discharge to a rehab center, otherwise he denies any complaints there is no fever or chills no chest pain no nausea or vomiting no abdominal pain no diarrhea no blood in the stools and no urinary symptoms PEG tube site is clear. 06/30/2021 patient alert and oriented 3. Patient still having significant sputum production. Will order repeat sputum sample consults infectious disease services. Patient's liver enzymes also significantly elevated. Lipitor DC'd. Liver ultrasound will be ordered. Patient denies chest pain. Patient denies nausea vomiting or diarrhea. Patient denies any urinary burning or frequency On 07/01/2021 Patient was seen and examined on the medical floor, he is alert and oriented x 3 in no distress, he denies any complaints there is no fever or chills no headache or dizziness no chest pain no shortness of breath no palpitation no cough no nausea or vomiting no abdominal pain no diarrhea no blood in the stools no burning with urination no frequency or urgency and no hematuria, there is no weakness or numbness in any of the extremities no change in vision speech. Liver enzymes are quite elevated but are improving gradually, Lipitor was discontinued and Tylenol was discontinued, will continue to monitor On 07/02/2021 Patient is alert and oriented x 3 in no distress, he denies any complaints there is no fever or chills no headache or dizziness no chest pain no shortness of breath no palpitation no cough no nausea or vomiting no abdominal pain no diarrhea no blood in the stools no burning with urination no frequency or urgency and no hematuria, there is no weakness or numbness in any of the extremities no change in vision speech. Liver enzymes are quite elevated but are improving gradually, Lipitor was discontinued and Tylenol was discontinued, will continue to monitor, kidney function remains slightly elevated. On 07/03/2021 Patient was seen and examined on the medical floor, he is alert and oriented x 3 in no distress, he denies any complaints there is no fever or chills no headache or dizziness no chest pain no shortness of breath no palpitation no cough no nausea or vomiting no abdominal pain no diarrhea no blood in the stools no burning with urination no frequency or urgency and no hematuria, there is no weakness or numbness in any of the extremities no change in vision speech or gait. At this time liver enzymes are improving gradually will continue to monitor closely patient lost his IV access, will proceed with midline placement in a.m. Objective - Vital Signs Vital signs: Vital Signs Temp 97.6 F 07/03/21 08:00 Pulse 96 07/03/21 16:16 Resp 18 07/03/21 03:16 BP 124/71 07/03/21 16:00 Pulse Ox 97 07/03/21 16:00 Intake & Output 07/02/21 07/03/21 07/03/21 18:59 06:59 18:59 Intake Total 0 920 540 Output Total 1500 2024 Balance -1500 -1105 540 Weight 95 kg 95 kg Intake: IV 10 Invasive Line 7 10 Intake, IV Titration 100 Amount Piperacillin-Tazobactam 3 100 .375 gm In Sodium Chloride 0.9% 100 ml @ 25 mls/hr IVPB Q8HR [facility] Rx# :[id number] Oral 0 Tube Feeding 810 540 Output: Urine 1500 2024 Other: Voiding Method Indwelling Catheter Indwelling Catheter - Exam In general patient is alert and responsive in no distress HEENT head normocephalic and atraumatic Neck is supple no JVD no goiter no lymphadenopathy no carotid bruit Chest examination is clear to auscultation no crackles no wheezing Cardiac exam reveals regular heart sounds S1 and S2 no gallops no murmurs Abdomen is soft nontender no organomegaly with normal bowel sounds Extremity exam reveals no edema no cyanosis or clubbing Neurological examination reveals no gross focal deficits - Labs CBC & Chem 7: 07/03/21 07:19 07/03/21 07:19 Labs: Abnormal Lab Results - Last 24 Hours (Table) 07/03/21 07/03/21 07/03/21 Range/Units 00:28 06:10 07:19 RBC 2.55 L (4.30-5.90) m/uL Hgb 9.5 L (13.0-17.5) gm/dL Hct 28.8 L (39.0-53.0) % MCV 112.8 H (80.0-100.0) fL MCH 37.3 H (25.0-35.0) pg RDW 17.0 H (11.5-15.5) % Lymphocytes # 0.9 L (1.0-4.8) k/uL Macrocytosis Marked A PT (9.0-12.0) sec INR (<1.2) Chloride (98-107) mmol/L Carbon Dioxide (22-30) mmol/L BUN (9-20) mg/dL Creatinine (0.66-1.25) mg/dL Glucose (74-99) mg/dL POC Glucose (mg/dL) 126 H 158 H (75-99) mg/dL AST (17-59) U/L ALT (4-49) U/L Total Protein (6.3-8.2) g/dL Albumin (3.5-5.0) g/dL 07/03/21 07/03/21 07/03/21 Range/Units 07:19 07:19 11:57 RBC (4.30-5.90) m/uL Hgb (13.0-17.5) gm/dL Hct (39.0-53.0) % MCV (80.0-100.0) fL MCH (25.0-35.0) pg RDW (11.5-15.5) % Lymphocytes # (1.0-4.8) k/uL Macrocytosis PT 16.7 H (9.0-12.0) sec INR 1.7 H (<1.2) Chloride 97 L (98-107) mmol/L Carbon Dioxide 33 H (22-30) mmol/L BUN 39 H (9-20) mg/dL Creatinine 1.84 H (0.66-1.25) mg/dL Glucose 130 H (74-99) mg/dL POC Glucose (mg/dL) 150 H (75-99) mg/dL AST 247 H (17-59) U/L ALT 423 H (4-49) U/L Total Protein 5.7 L (6.3-8.2) g/dL Albumin 2.7 L (3.5-5.0) g/dL 07/03/21 Range/Units 16:25 RBC (4.30-5.90) m/uL Hgb (13.0-17.5) gm/dL Hct (39.0-53.0) % MCV (80.0-100.0) fL MCH (25.0-35.0) pg RDW (11.5-15.5) % Lymphocytes # (1.0-4.8) k/uL Macrocytosis PT (9.0-12.0) sec INR (<1.2) Chloride (98-107) mmol/L Carbon Dioxide (22-30) mmol/L BUN (9-20) mg/dL Creatinine (0.66-1.25) mg/dL Glucose (74-99) mg/dL POC Glucose (mg/dL) 135 H (75-99) mg/dL AST (17-59) U/L ALT (4-49) U/L Total Protein (6.3-8.2) g/dL Albumin (3.5-5.0) g/dL Assessment and Plan Plan: Fall at home with unclear history whether patient had a syncopal episode or loss of consciousness Episode of chest pain while in the ambulance Atrial fibrillation with rapid ventricular response. Patient started on amiodarone drip per cardiology Underlying history of paroxysmal atrial fibrillation, maintained on Coumadin however her INR was subtherapeutic at 1.2 on presentation, today INR is therapeutic at 2.7 Evidence of dehydration with electrolyte imbalance with hyponatremia and hyp erkalemia Underlying history of chronic kidney disease Underlying history of fis-xvmpqjd-srigzzfil diabetes mellitus, no evidence of hypoglycemia Underlying history of hypertension Previous history of cerebellar stroke. Right basilar infiltrate suggestive of pneumonia, patient started on IV Zosyn, pulmonary consultation requested Dysphagia. PEG tube placement per Dr. ordonez Elevated liver enzymes. Lipitor CHASTITY'christine. Liver ultrasound ordered DVT prophylaxis Coumadin. GI prophylaxis Pepcid Pulmonary, cardiology, nephrology and surgical services following Patient maintained on IV Zosyn s/p peg tube placement Repeat labs ordered PT OT services consulted Social work consulted for possible ECF placement Pulmonary services reconsulted for worsening chest x-ray Infectious disease consulted for worsening pneumonia
[2021-07-03 20:10] LABS: Glucose,Whole Blood 137 mg/dL (75-99)
--- NOTE | 2021-07-03 21:15 | PN ---
PROGRESS NOTE DATE OF SERVICE: 07/03/2021. REASON FOR FOLLOW UP: Pneumonia. INTERVAL HISTORY: The patient is afebrile. The patient is breathing comfortably. Denies any chest pain or shortness of breath. No worsening cough. No abdominal pain. No diarrhea. The patient is bringing up some brownish sputum. No hemoptysis and no diarrhea. PHYSICAL EXAMINATION: Blood pressure is 106/59. Pulse in 79, temperature 98, he is 97% on 3 L nasal cannula. General description is a middle-aged male up in the chair in no distress. Respiratory system: Unlabored breathing, decreased intensity of breath sounds. No wheeze. Heart S1, S2. Regular rate and rhythm. Abdomen: Soft. No tenderness. LABS: Hemoglobin 7.5, white count 9.7 BUN of 29 and creatinine 1.84. DIAGNOSTIC IMPRESSION AND PLAN: Patient with shortness of breath which is multifactorial. The patient did have a cough. Sputum initially has been Jenae albicans. Patient IV, antibiotic will be switched to oral Augmentin and continue with supportive care. MMODL / IJN: [id number] /
[2021-07-04 06:14] LABS: Glucose,Whole Blood 121 mg/dL (75-99)
[2021-07-04] MEDS: INSULIN ASPART (NovoLOG) 100 UNIT/ML VIAL SQ SCH ×4 (06:50→22:42)
[2021-07-04 06:55] LABS: INR 1.8 (<1.2); Prothrombin Time 17.4 sec (9.0-12.0)
[2021-07-04] MEDS: MIDODRINE 5 MG TAB PO SCH ×3 (06:56→18:38)
[2021-07-04 07:13] LABS: Calcium 9.6 mg/dL (8.4-10.2); Magnesium 1.9 mg/dL (1.6-2.3); Potassium 4.8 mmol/L (3.5-5.1)
[2021-07-04] MEDS: IPRATROPIUM-ALBUTEROL 3 ML NEB INHALATION SCH ×4 (07:28→20:26)
[2021-07-04] MEDS: SYMBICORT 160-4.5 MCG INHALER INHALATION SCH ×2 (07:28→20:26)
[2021-07-04] MEDS: FUROSEMIDE 10 MG/ML 2 ML VIAL IV SCH ×2 (09:29→22:14)
[2021-07-04] MEDS: CYANOCOBALAMIN 500 MCG TAB PO SCH (09:29)
[2021-07-04] MEDS: AMIODARONE 200 MG TAB PO SCH ×2 (09:30→22:13)
[2021-07-04] MEDS: FAMOTIDINE 20 MG TAB PO SCH (09:30)
[2021-07-04] MEDS: METOPROLOL TARTRATE 25 MG TAB PO SCH ×3 (09:30→22:13)
[2021-07-04] MEDS: FOLIC ACID 1 MG TAB PO SCH (09:30)
[2021-07-04] MEDS: VENLAFAXINE HCL 75 MG TAB PO SCH ×2 (09:30→22:13)
--- NOTE | 2021-07-04 09:33 | P.PN ---
Subjective Patient is seen in follow-up for acute kidney injury on chronic kidney disease. Renal function stable. On IV Lasix. Nonoliguric. No chest pain or shortness of breath. Receiving tube feeds due to aspiration. No changes overnight. Vital signs are stable. General: The patient appeared well nourished and normally developed. HEENT: Head exam is unremarkable. LUNGS: Breath sounds decreased. HEART: Regular rate and rhythm. ABDOMEN: No distention. PEG tube noted. EXTREMITITES: No edema. Objective - Vital Signs Vital signs: Vital Signs Temp 97.4 F L 07/04/21 04:00 Pulse 74 07/04/21 07:28 Resp 18 07/04/21 04:00 BP 110/66 07/04/21 04:00 Pulse Ox 95 07/04/21 07:05 Intake & Output 07/03/21 07/04/21 07/04/21 18:59 06:59 18:59 Intake Total 540 270 Output Total 1600 Balance 540 -1330 Weight 95 kg 94 kg Intake: Tube Feeding 540 270 Output: Urine 1600 Other: Voiding Method Indwelling Catheter Indwelling Catheter # Bowel Movements 2 - Labs CBC & Chem 7: 07/03/21 07:19 07/04/21 06:30 Labs: Abnormal Lab Results - Last 24 Hours (Table) 07/03/21 07/03/21 07/03/21 Range/Units 07:19 11:57 16:25 Lymphocytes # 0.9 L (1.0-4.8) k/uL PT (9.0-12.0) sec INR (<1.2) Sodium (137-145) mmol/L Chloride (98-107) mmol/L Carbon Dioxide (22-30) mmol/L BUN (9-20) mg/dL Creatinine (0.66-1.25) mg/dL Glucose (74-99) mg/dL POC Glucose (mg/dL) 150 H 135 H (75-99) mg/dL 07/03/21 07/04/21 07/04/21 Range/Units 20:08 06:13 06:30 Lymphocytes # (1.0-4.8) k/uL PT (9.0-12.0) sec INR (<1.2) Sodium 136 L (137-145) mmol/L Chloride 96 L (98-107) mmol/L Carbon Dioxide 33 H (22-30) mmol/L BUN 43 H (9-20) mg/dL Creatinine 1.80 H (0.66-1.25) mg/dL Glucose 114 H (74-99) mg/dL POC Glucose (mg/dL) 137 H 121 H (75-99) mg/dL 07/04/21 Range/Units 06:30 Lymphocytes # (1.0-4.8) k/uL PT 17.4 H (9.0-12.0) sec INR 1.8 H (<1.2) Sodium (137-145) mmol/L Chloride (98-107) mmol/L Carbon Dioxide (22-30) mmol/L BUN (9-20) mg/dL Creatinine (0.66-1.25) mg/dL Glucose (74-99) mg/dL POC Glucose (mg/dL) (75-99) mg/dL Microbiology - Last 24 Hours (Table) 07/03/21 17:48 Gram Stain - Preliminary Sputum Sputum Culture - Preliminary Assessment and Plan Plan: Assessment: 1. Acute kidney injury secondary to ATN secondary to hemodynamic instability and component of cardiorenal syndrome. Creatinine stable at 1.8 today. No hydronephrosis noted on kidney ultrasound. UA fairly benign. 2. Chronic kidney disease 3a with baseline creatinine near 1.6-2 secondary to solitary right kidney and obstructive uropathy. 3. Status post left nephrectomy. 4. Status post removal of left nephrostomy tube on 06/11/2021. 5. Hyperkalemia secondary to acute kidney injury and enalapril. Resolved. 6. Diabetes mellitus. 7. Volume overload. Improving with diuresis. 8. Hypomagnesemia from poor intake. Replaced. Stable. 9. Orthostatic hypotension. Cardiology following. On midodrine. Cortisol level not low. TSH normal. 10. Urinary retention. Has a Lara catheter. 11. A. fib with RVR on amiodarone and Lopressor. 12. Anemia of chronic kidney disease. Iron deficiency noted - status post IV iron. 13. Chronic chronic diastolic CHF with severe pulmonary hypertension. 14. Status post PEG tube placement due to aspiration. Plan: Maintain Lasix. Avoid nephrotoxins. Continue to monitor renal function and urine output. Add Aranesp.
[2021-07-04] MEDS: AMOXIC-POT CLAV 200-28.5MG/5ML 100 ML BOTTLE PEG/G-TUBE SCH ×2 (09:39→16:43)
[2021-07-04] MEDS ORDERED: DARBEPOETIN ALFA 40 MCG/0.4 ML SYRINGE SQ SCH (10:00)
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
--- NOTE | 2021-07-04 12:06 | P.PN ---
Subjective Progress Note Date: 07/04/21 On today's evaluation of 07/04/2021, patient is being seen for a follow-up. The patient was being treated for an aspiration pneumonia. He was having production of copious amount of thick purulent brownish yesterday material which she was able to cough it out. For that reason, the patient was kept on IV Zosyn. Awaiting the results of the follow-up cultures. Meanwhile, he remains in oxygen at 1 L and his pulse ox is around 94%. Note that the preliminary cultures from the sputum is still pending. The Gram stain is polymicrobial and the patient is gram-negative bacteria in addition to gram-positive bacillus and moderate amount of yeast. He is still on IV Zosyn. He is receiving enteral feeding for nutritional support. He is on Glucerna at the rate of 60 mL an hour. His blood work today is showing a BMI of 43 with a creatinine of 1.8. INR is at 1.8. Electrolytes show a sodium of 136 with a potassium level of 4.8 and a BUN of a chloride of 96 with a serum bicarb of 33. The white cell count currently is at 9.7 from yesterday. Objective - Vital Signs Vital signs: Vital Signs Temp 97.4 F L 07/04/21 08:00 Pulse 67 07/04/21 11:17 Resp 92 H 07/04/21 08:00 BP 127/69 07/04/21 08:00 Pulse Ox 94 L 07/04/21 11:17 Intake & Output 07/03/21 07/04/21 07/04/21 18:59 06:59 18:59 Intake Total 540 270 Output Total 1600 Balance 540 -1330 Weight 95 kg 94 kg Intake: Tube Feeding 540 270 Output: Urine 1600 Other: Voiding Method Indwelling Catheter Indwelling Catheter # Bowel Movements 2 - Exam GENERAL EXAM: Alert, pleasant, chronically ill looking 61-year-old male, sitting up in the recliner, on 1 L of oxygen, with pulse ox of 94 % comfortable in no apparent distress. HEAD: Normocephalic/atraumatic. EYES: Normal reaction of pupils, equal size. Conjunctiva pink, sclera white. NOSE: Clear with pink turbinates. THROAT: No erythema or exudates. NECK: No masses, no JVD, no thyroid enlargement, no adenopathy. CHEST: No chest wall deformity. Symmetrical expansion. LUNGS: Equal air entry with diminished breath sounds and some crackles at the bases CVS: Regular rate and rhythm, normal S1 and S2, no gallops, no murmurs, no rubs ABDOMEN: Soft, nontender. No hepatosplenomegaly, normal bowel sounds, no guarding or rigidity. The PEG tube and the exit site is dry clean and intact. EXTREMITIES: No clubbing, no edema, no cyanosis, 2+ pulses and upper and lower extremities. MUSCULOSKELETAL: Muscle strength and tone normal. SPINE: No scoliosis or deformity SKIN: No rashes CENTRAL NERVOUS SYSTEM: Alert and oriented -3. No focal deficits, tone is normal in all 4 extremities. PSYCHIATRIC: Alert and oriented -3. Appropriate affect. Intact judgment and insight. - Labs CBC & Chem 7: 07/03/21 07:19 07/04/21 06:30 Labs: Abnormal Lab Results - Last 24 Hours (Table) 07/03/21 07/03/21 07/04/21 Range/Units 16:25 20:08 06:13 PT (9.0-12.0) sec INR (<1.2) Sodium (137-145) mmol/L Chloride (98-107) mmol/L Carbon Dioxide (22-30) mmol/L BUN (9-20) mg/dL Creatinine (0.66-1.25) mg/dL Glucose (74-99) mg/dL POC Glucose (mg/dL) 135 H 137 H 121 H (75-99) mg/dL 07/04/21 07/04/21 Range/Units 06:30 06:30 PT 17.4 H (9.0-12.0) sec INR 1.8 H (<1.2) Sodium 136 L (137-145) mmol/L Chloride 96 L (98-107) mmol/L Carbon Dioxide 33 H (22-30) mmol/L BUN 43 H (9-20) mg/dL Creatinine 1.80 H (0.66-1.25) mg/dL Glucose 114 H (74-99) mg/dL POC Glucose (mg/dL) (75-99) mg/dL Microbiology - Last 24 Hours (Table) 07/03/21 17:48 Gram Stain - Preliminary Sputum Sputum Culture - Preliminary Assessment and Plan Plan: 1 Status post fall at home or could be related to orthostatic hypotension, possible syncope or possibility of cardiac arrhythmia, considering the patient is having intermittent episodes of A. fib with RVR 2 bilateral pneumonia with extensive sputum production, sputum is positive for jenae. Nevertheless the patient is bringing up purulent amount of copious brownish thick material. Consider hospital-acquired pneumonia. We'll obtain a repeat sputum Gram stain and culture. We'll also order a noncontrast CAT scan of the chest. 3 Dysphagia, patient had malik aspiration during modified barium swallow evaluation and at this time is complete nothing by mouth , post PEG tube placement 4 Chronic atrial fibrillation , currently on long-term and to coagulation with warfarin and the patient's rate is controlled. 5. Hypovolemic hyponatremia, recovered 6. Type 2 diabetes mellitus, currently on Glucerna. 7. History of hypertension 8. History of cerebellar stroke 9. History of 67-bhay-oyfe smoking 10 chronic kidney failure, creatinine is improving and the creatinine is down to 1.8. 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 I will suggest also covering this patient for jenae knowing that the patient has grown Jenae on 2 separate occasions sputum when he may be extensively infected/paralyzed in his upper airway with jenae. We'll put him on Diflucan 100 mg IV every 24 hours. Meanwhile, we are still awaiting the results of the follow-up sputum samples. Gram stain and culture of the sputum Proceed with ordering a Noncontrast CAT scan of the chest Maintain aspiration precautions Continue DuoNeb updrafts Monitor blood sugars monitor LFTs Monitor renal function We'll continue to follow
[2021-07-04 12:21] LABS: Glucose,Whole Blood 119 mg/dL (75-99)
--- NOTE | 2021-07-04 14:04 | CT ---
EXAMINATION TYPE: CT chest wo con DATE OF EXAM: 07/04/2021 COMPARISON: 11/10/2012 HISTORY: Generalized weakness, Pneumonia CT DLP: 660.[address] of the chest was performed with lung and mediastinal window settings submitted. The la ck of contrast limits evaluation of the vascular, mediastinal and parenchymal structures including th e upper abdomen. LUNGS: There are moderate bilateral pleural effusions which extend from the lung bases and layering t o the lung apices with maximal AP dimension on the left of 4.5 cm and on the right 2.4 cm. There is r ight lower lobe infiltrate and/or atelectasis as well as additional patchy density within the right u pper lobe. No distinct pulmonary nodule. Left basilar atelectasis or infiltrate noted as well as. MEDIASTINUM/LISA: Thoracic aorta is of normal caliber with limited evaluation given lack of contrast . The heart is mildly enlarged. Coronary artery calcifications noted. No evidence for mediastinal mas s. No lymph nodes greater than 1cm. UPPER ABDOMEN: No significant abnormality is seen. OTHER: No significant other abnormality. IMPRESSION: 1. Bilateral pleural effusions with right lower lobe infiltrate as well as patchy areas of infiltrat e right upper lobe.
[2021-07-04] MEDS: FLUCONAZOLE ORAL SUSP 1,400 MG/35 ML BOTTLE PO SCH (14:22)
[2021-07-04] MEDS: HYDROmorphone 0.5 MG/0.5 ML SYRINGE IVP PRN (14:31)
[2021-07-04 16:48] LABS: Glucose,Whole Blood 129 mg/dL (75-99)
[2021-07-04] MEDS ORDERED: WARFARIN 2 MG TAB PO ONE (18:00)
--- NOTE | 2021-07-04 18:27 | PN ---
PROGRESS NOTE DATE OF SERVICE: 07/04/2021 REASON FOR FOLLOWUP: Pneumonia. INTERVAL HISTORY: The patient is afebrile. The patient is breathing comfortably. The patient denies having any chest pain or worsening cough or sputum production. No abdominal pain or diarrhea. PHYSICAL EXAMINATION: Blood pressure 114/60 with a pulse of 71, temperature 97.6. He is 94% on 1 L nasal cannula. GENERAL DESCRIPTION: General description is a middle-aged male up in the chair in no distress. RESPIRATORY SYSTEM: Unlabored breathing. Decreased intensity of breath sounds. No wheeze. HEART: S1, S2. Regular rate and rhythm. ABDOMEN: Soft. No tenderness. LABS: BUN of 43, creatinine 1.80. Repeat sputum test pending. DIAGNOSTIC IMPRESSION AND PLAN: Patient with increasing shortness of breath and cough with evidence of right lower lobe pneumonia. Sputum has been Jenae, more likely colonizer. Patient is covered with Augmentin; to continue and monitor his clinical course closely. MMODL / IJN: [id number] /
[2021-07-05] MEDS: AMOXIC-POT CLAV 200-28.5MG/5ML 100 ML BOTTLE PEG/G-TUBE SCH ×4 (01:18→23:56)
[2021-07-05 05:52] LABS: Glucose,Whole Blood 133 mg/dL (75-99)
[2021-07-05] MEDS: MIDODRINE 5 MG TAB PO SCH ×3 (05:53→17:51)
[2021-07-05] MEDS: INSULIN ASPART (NovoLOG) 100 UNIT/ML VIAL SQ SCH ×4 (05:53→21:09)
[2021-07-05] MEDS: HYDROmorphone 0.5 MG/0.5 ML SYRINGE IVP PRN ×2 (06:37→20:19)
[2021-07-05] MEDS: IPRATROPIUM-ALBUTEROL 3 ML NEB INHALATION SCH ×4 (07:48→19:45)
[2021-07-05] MEDS: SYMBICORT 160-4.5 MCG INHALER INHALATION SCH ×2 (07:48→19:45)
[2021-07-05 08:09] LABS: INR 1.7 (<1.2); Prothrombin Time 16.6 sec (9.0-12.0)
[2021-07-05 08:24] LABS: Calcium 9.4 mg/dL (8.4-10.2); Potassium 4.5 mmol/L (3.5-5.1)
[2021-07-05] MEDS: AMIODARONE 200 MG TAB PO SCH ×2 (09:15→21:08)
[2021-07-05] MEDS: FAMOTIDINE 20 MG TAB PO SCH (09:16)
[2021-07-05] MEDS: METOPROLOL TARTRATE 25 MG TAB PO SCH ×3 (09:16→21:08)
[2021-07-05] MEDS: FUROSEMIDE 10 MG/ML 2 ML VIAL IV SCH ×2 (09:16→21:08)
[2021-07-05] MEDS: FOLIC ACID 1 MG TAB PO SCH (09:16)
[2021-07-05] MEDS: CYANOCOBALAMIN 500 MCG TAB PO SCH (09:16)
[2021-07-05] MEDS: VENLAFAXINE HCL 75 MG TAB PO SCH ×2 (09:18→21:08)
[2021-07-05] MEDS: FLUCONAZOLE ORAL SUSP 1,400 MG/35 ML BOTTLE PO SCH (09:18)
--- NOTE | 2021-07-05 10:17 | P.PN ---
Subjective Progress Note Date: 07/05/21 Everett Juárez, is a 61-year-old male patient of Dr. Jama, who presented to [facility] emergency room after sustaining a fall, and complaining of generalized weakness and dizziness, patient is not clear whether he passed out or had any loss of consciousness. Patient was also complaining of chest pain in the EMS, EKG was within normal limits and troponin level was less than 0.01 He was evaluated in the emergency room vital examination on presentation revealed a temperature of 97.4 pulse 71 respirations 16 blood pressure 87/50 pulse ox 94% on room air Laboratory data revealed a white blood count of 8.6 hemoglobin 12.0 platelet count 338 INR 1.2 sodium 128 potassium 6.2 chloride 99 CO2 22 BUN 17 creatinine 2.01 lactic acid on presentation 2.1 urine analysis did not reveal evidence of significant infection. Testing in the emergency room revealed EKG revealed normal sinus rhythm normal EKG chest x-ray done in the emergency room revealed no acute lung disease there was prominent pulmonary leon that could be related to adenopathy. 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 Patient was admitted to medical floor for further evaluation and treatment. Past medical history is significant for history of hypertension, history of hyperlipidemia, history of chronic kidney disease, history of fgd-[id number]-tzskaswpn diabetes mellitus, history of previous stroke, history of paroxysmal atrial fibrillation maintained on Coumadin, history of COPD, patient still smoke a few cigarettes per day, he denies alcohol use. On review of systems Patient is alert and responsive in no distress, he denies any complaints there is no fever or chills no headache or dizziness no chest pain no shortness of breath no palpitation no cough no nausea or vomiting no abdominal pain no diarrhea no blood in the stools no burning with urination no frequency or urgency and no hematuria, there is no weakness or numbness in any of the extremities no change in vision speech, gait was not tested. On 06/16/2021 patient was seen and examined on the telemetry floor he is alert and oriented 3 in no apparent distress he is still complaining of dizziness and weakness otherwise he denies any complaints there is no fever or chills no headache no chest pain no shortness of breath no cough no palpitation no nausea or vomiting no abdominal pain no diarrhea no blood in the stools no burning with urination no frequency or urgency and no hematuria there is no weakness or numbness in any of the extremities no change in vision or in speech On 06/17/2021 Patient was seen and examined on the medical floor, he is alert and oriented x 3 in no distress, he denies any complaints there is no fever or chills no headache or dizziness no chest pain no shortness of breath no palpitation no cough no nausea or vomiting no abdominal pain no diarrhea no blood in the stools no burning with urination no frequency or urgency and no hematuria, there is no weakness or numbness in any of the extremities no change in vision or speech, gait was not tested at this time, patient had significant orthostatic hypotension, this was discussed with cardiology, and dose of Catapres was adjusted down to 0.1 mg by mouth twice a day, patient will be reevaluated by cardiology in a.m. On 06/18/2021 patient was seen and examined on the medical floor, he is alert and oriented 3 in no distress, he is complaining of weakness otherwise he denies any specific complaints, there is no fever or chills no headache or dizziness no chest pain no shortness of breath no cough no nausea or vomiting no abdominal pain no diarrhea no blood in the stools no burning with urination no frequency or urgency no hematuria, there is no weakness or numbness in any of the extremities there is no change in vision speech or gait. Repeat orthostatic hypotension reveals significant drop while standing, cardiology are following, yesterday dose of Catapres was decreased to 0.1 by mouth twice daily, awaiting further recommendation from cardiology On 06/19/2021 patient was seen and examined on the medical floor, he is alert and oriented 3 in no distress, he is complaining of weakness otherwise he denies any specific complaints, he is still having significant orthostatic hypotension was significant drop in blood pressure when patient stands up. the re is no fever or chills no headache or dizziness no chest pain no shortness of breath no cough no nausea or vomiting no abdominal pain no diarrhea no blood in the stools no burning with urination no frequency or urgency no hematuria, there is no weakness or numbness in any of the extremities there is no change in vision speech or gait. Cardiology are following at this time Catapres is being discontinued and midodrine was added to medication regimen will continue to monitor closely. On 06/20/2021 patient was seen and examined on the medical floor he is alert and oriented 3 in no apparent distress, this morning he had an episode of palpitation and severe shortness of breath, EKG revealed SVT versus A. fib with RVR with a heart rate of 186 patient was transferred to [facility]. he was seen by [facility] rdiology and was started on IV amiodarone, chest x-ray was done today and was suspicious for right sided infiltrate suggestive of pneumonia patient is stating that he is having some cough with yellow sputum production WBC is low, patient was started on IV antibiotic Zosyn, and pulmonary consultation was requested. Patient denies any fever or chills no headache or dizziness no chest pain no nausea or vomiting no abdominal pain no diarrhea and no urinary symptoms. On 06/21/2021 patient was seen and examined on the medical floor he is complaining of cough otherwise he denies any complaints at this time there is no fever or chills no headache or dizziness no chest pain no shortness of breath no nausea or vomiting no abdominal pain no diarrhea no blood in the stools no burning with urination no frequency or urgency and no hematuria, yesterday patient had an episode of A. fib with RVR, he was started on IV amiodarone by cardiology and was transferred to telemetry floor, also chest x-ray revealed evidence of right basilar infiltrate, he was started on IV Zosyn pulmonary consultation was requested, sputum culture was ordered On 06/22/2021 Patient was seen and examined on the medical floor, he is alert and oriented x 3 in no distress, he is complaining of cough otherwise he denies any complaints there is no fever or chills no headache or dizziness no chest pain no shortness of breath no palpitation no cough no nausea or vomiting no abdominal pain no diarrhea no blood in the stools no burning with urination no frequency or urgency and no hematuria, there is no weakness or numbness in any of the extremities no change in vision speech or gait. Patient failed swallow evaluation with all food consistency today, he is kept nothing by mouth consultation for Dr. Zacarias for PEG tube placement was initiated. On 06/23/2021 patient is alert and oriented 3. Patient is resting comfortably in bed. Patient currently maintained on amiodarone drip per cardiology. Patient also maintained on IV Zosyn for aspiration pneumonia. Surgical services have been consulted for PEG tube placement. At this time pulmonary, cardiology, nephrology and surgical services following. Repeat labs have been ordered. Patient is still complaining of chest congestion and cough. Patient denies chest pain. Patient denies nausea vomiting or diarrhea. Patient denies any urinary burning or frequency. On 06/24/2021 Patient was seen and examined on the medical floor, he is alert and oriented x 3 in no distress, he denies any complaints there is no fever or chills no headache or dizziness no chest pain no shortness of breath no palpitation no cough no nausea or vomiting no abdominal pain no diarrhea no blood in the stools no burning with urination no frequency or urgency and no hematuria, there is no weakness or numbness in any of the extremities no change in vision speech, today INR is 5.3 Coumadin is on hold Will give 1 dose of vitamin K 2 mg IV patient is nothing by mouth , he is awaiting PEG tube placement On 06/24/2021 patient is alert and oriented 3 INR 1.2. Patient maintained on IV amiodarone. Tentative plans for PEG tube placement tomorrow per surgical services. . At this time patient remains with productive cough. Patient denies chest pain. Patient denies nausea vomiting or diarrhea. Patient denies any urinary burning or frequency On 06/26/2021 Patient was seen and examined on the medical floor, he is alert and oriented x 3 in no distress, he denies any complaints there is no fever or chills no headache or dizziness no chest pain no shortness of breath no palp itation no cough no nausea or vomiting no abdominal pain no diarrhea no blood in the stools no burning with urination no frequency or urgency and no hematuria, there is no weakness or numbness in any of the extremities no change in vision speech, patient received vitamin K his INR is low we are awaiting PEG tube placement On 06/27/2021 Patient was seen and examined on the medical floor, he is alert and oriented x 3 in no distress, he denies any complaints there is no fever or chills no headache or dizziness no chest pain no shortness of breath no palpitation no cough no nausea or vomiting no abdominal pain no diarrhea no blood in the stools no burning with urination no frequency or urgency and no hematuria, there is no weakness or numbness in any of the extremities no change in vision speech, Patient underwent PEG tube placement and was started on PEG tube feeding, will continue to follow closely will recheck chest x-ray in a.m. On 06/28/2021 patient alert and oriented 3. Repeat chest x-ray showing worsening interstitial edema with superimposed infiltrates versus atelectasis. Small pleural effusion. We'll reconsult pulmonary services. Patient remains on IV Zosyn. Patient does have PEG tube in place tube feeds running. At this time patient denies chest pain. Patient does report occasional cough with sputum production. Patient denies nausea vomiting or diarrhea. Patient denies any urinary burning or frequency. On 06/29/2021 patient was seen and examined on the telemetry floor, he is alert and oriented 3 in no distress, he is still complaining of shortness of breath and occasional cough, his chest x-ray done yesterday reveals worsening of the pulmonary infiltrate, he is still maintained on IV Zosyn, and is maintained on oxygen at 5 L via nasal cannula, pulmonary consultation was resubmitted yesterday for reevaluation and further advice regarding antibiotic treatment and further management of his pulmonary consultation, at this time patient is not ready yet for discharge to a rehab center, otherwise he denies any complaints there is no fever or chills no chest pain no nausea or vomiting no abdominal pain no diarrhea no blood in the stools and no urinary symptoms PEG tube site is clear. 06/30/2021 patient alert and oriented 3. Patient still having significant sputum production. Will order repeat sputum sample consults infectious disease services. Patient's liver enzymes also significantly elevated. Lipitor DC'd. Liver ultrasound will be ordered. Patient denies chest pain. Patient denies nausea vomiting or diarrhea. Patient denies any urinary burning or frequency On 07/01/2021 Patient was seen and examined on the medical floor, he is alert and oriented x 3 in no distress, he denies any complaints there is no fever or chills no headache or dizziness no chest pain no shortness of breath no palpitation no cough no nausea or vomiting no abdominal pain no diarrhea no blood in the stools no burning with urination no frequency or urgency and no hematuria, there is no weakness or numbness in any of the extremities no change in vision speech. Liver enzymes are quite elevated but are improving gradually, Lipitor was discontinued and Tylenol was discontinued, will continue to monitor On 07/02/2021 Patient is alert and oriented x 3 in no distress, he denies any complaints there is no fever or chills no headache or dizziness no chest pain no shortness of breath no palpitation no cough no nausea or vomiting no abdominal pain no diarrhea no blood in the stools no burning with urination no frequency or urgency and no hematuria, there is no weakness or numbness in any of the extremities no change in vision speech. Liver enzymes are quite elevated but are improving gradually, Lipitor was discontinued and Tylenol was discontinued, will continue to monitor, kidney function remains slightly elevated. On 07/03/2021 Patient was seen and examined on the medical floor, he is alert and oriented x 3 in no distress, he denies any complaints there is no fever or chills no headache or dizziness no chest pain no shortness of breath no palpitation no cough no nausea or vomiting no abdominal pain no diarrhea no blood in the stools no burning with urination no frequency or urgency and no hematuria, there is no weakness or numbness in any of the extremities no change in vision speech or gait. At this time liver enzymes are improving gradually will continue to monitor closely patient lost his IV access, will proceed with midline placement in a.m. on 07/05/2021 patient is alert and oriented 3. Chest CT completed showing bi lateral pleural effusions with right lower lobe infiltrate as well as patchy areas of infiltrate in the right upper lobe. Pulmonary and infectious disease services are following. Patient remains on Augmentin and Diflucan. Patient also maintained on IV Lasix. At this time patient denies chest pain. Patient denies nausea vomiting or diarrhea. Patient denies any urinary burning or frequency Objective - Vital Signs Vital signs: Vital Signs Temp 97.7 F 07/04/21 23:43 Pulse 70 07/05/21 08:01 Resp 18 07/05/21 03:20 BP 122/67 07/05/21 03:20 Pulse Ox 96 07/05/21 03:20 Intake & Output 07/04/21 07/05/21 07/05/21 18:59 06:59 18:59 Intake Total 540 Output Total 1025 1350 Balance -1025 -810 Weight 92.5 kg Intake: Tube Feeding 540 Output: Urine 1025 1350 Other: Voiding Method Indwelling Catheter - Exam In general patient is alert and responsive in no distress HEENT head normocephalic and atraumatic Neck is supple no JVD no goiter no lymphadenopathy no carotid bruit Chest examination is clear to auscultation no crackles no wheezing Cardiac exam reveals regular heart sounds S1 and S2 no gallops no murmurs Abdomen is soft nontender no organomegaly with normal bowel sounds Extremity exam reveals no edema no cyanosis or clubbing Neurological examination reveals no gross focal deficits - Labs CBC & Chem 7: 07/03/21 07:19 07/05/21 07:22 Labs: Abnormal Lab Results - Last 24 Hours (Table) 07/04/21 07/04/21 07/05/21 Range/Units 12:20 16:47 05:50 PT (9.0-12.0) sec INR (<1.2) Sodium (137-145) mmol/L Chloride (98-107) mmol/L Carbon Dioxide (22-30) mmol/L BUN (9-20) mg/dL Creatinine (0.66-1.25) mg/dL Glucose (74-99) mg/dL POC Glucose (mg/dL) 119 H 129 H 133 H (75-99) mg/dL 07/05/21 07/05/21 Range/Units 07:22 07:22 PT 16.6 H (9.0-12.0) sec INR 1.7 H (<1.2) Sodium 132 L (137-145) mmol/L Chloride 92 L (98-107) mmol/L Carbon Dioxide 34 H (22-30) mmol/L BUN 40 H (9-20) mg/dL Creatinine 1.84 H (0.66-1.25) mg/dL Glucose 112 H (74-99) mg/dL POC Glucose (mg/dL) (75-99) mg/dL Microbiology - Last 24 Hours (Table) 07/03/21 17:48 Gram Stain - Preliminary Sputum Sputum Culture - Preliminary Diphtheroid species Jenae albicans Assessment and Plan Plan: Fall at home with unclear history whether patient had a syncopal episode or loss of consciousness Episode of chest pain while in the ambulance Atrial fibrillation with rapid ventricular response. Patient started on amiodarone drip per cardiology. Patient transitioned to by mouth amiodarone Underlying history of paroxysmal atrial fibrillation, maintained on Coumadin. Evidence of dehydration with electrolyte imbalance with hyponatremia and hyperkalemia. resolved Underlying history of chronic kidney disease Underlying history of [id number] diabetes mellitus, no evidence of hypoglycemia Underlying history of hypertension Previous history of cerebellar stroke. Right basilar infiltrate suggestive of pneumonia, patient started on IV Zosyn. infectious disease and pulmonary service is followingpatient transitioned to Diflucan and oral Augmentin Dysphagia. PEG tube placement per Dr. ordonez Elevated liver enzymes. Lipitor DC'd. numbers improving DVT prophylaxis Coumadin. GI prophylaxis Pepcid Pulmonary, cardiology, nephrology and surgical services following maintaine on Augmentin and Diflucan s/p peg tube placement Repeat labs ordered PT OT services consulted Social work consulted for possible ECF placement Pulmonary services reconsulted for worsening chest x-ray Infectious disease consulted for worsening pneumonia
--- NOTE | 2021-07-05 10:52 | P.PN ---
Subjective Progress Note Date: 07/05/21 On 07/05/2021, patient is being seen for a follow-up regarding his pneumonia. Doing well. His cough is still there and he has a congested cough. The mucous is more clear to yellow [place] than being brown. Add Diflucan knowing that the patient had sputum Jenae. A follow-up culture was sent that showed diphtheroid species in addition to Jenae. The throat is most likely a colonizer. He may have extensive oropharyngeal candidiasis. A noncontrast CAT scan of the chest was also done yesterday that showed bilateral pleural effusions with the right lower lobe infiltrate as well as as patchy infiltration of the right upper lobe. He remains afebrile. He remains with an active stable. He remains on po augmentin, liq. He is receiving Glucerna via PEG tube for enteral feeding and nutritional support. This was inserted for episodic aspiration. Otherwise, is on oxygenon 3 L for now. His blood work from today is still pending. Creatinine from yesterday was 1.8 and today's 1.84 with a BUN of 40. Rest of the electrolytes are all stable. The patient remains on Lasix IV, 20 mg IV every 12 hours and he remains in a negative fluid balance. Fluid balance for yesterday was -790 mL. Objective - Vital Signs Vital signs: Vital Signs Temp 97.7 F 07/04/21 23:43 Pulse 70 07/05/21 08:01 Resp 18 07/05/21 03:20 BP 122/67 07/05/21 03:20 Pulse Ox 96 07/05/21 03:20 Intake & Output 07/04/21 07/05/21 07/05/21 18:59 06:59 18:59 Intake Total 540 Output Total 1025 1350 Balance -1025 -810 Weight 92.5 kg Intake: Tube Feeding 540 Output: Urine 1025 1350 Other: Voiding Method Indwelling Catheter - Exam GENERAL EXAM: Alert, pleasant, chronically ill looking 61-year-old male, sitting up in the recliner, on 3 L of oxygen, with pulse ox of 94 % comfortable in no apparent distress. HEAD: Normocephalic/atraumatic. EYES: Normal reaction of pupils, equal size. Conjunctiva pink, sclera white. NOSE: Clear with pink turbinates. THROAT: No erythema or exudates. NECK: No masses, no JVD, no thyroid enlargement, no adenopathy. CHEST: No chest wall deformity. Symmetrical expansion. LUNGS: Equal air entry with diminished breath sounds and some crackles at the bases CVS: Regular rate and rhythm, normal S1 and S2, no gallops, no murmurs, no rubs ABDOMEN: Soft, nontender. No hepatosplenomegaly, normal bowel sounds, no guarding or rigidity. The PEG tube and the exit site is dry clean and intact. EXTREMITIES: No clubbing, no edema, no cyanosis, 2+ pulses and upper and lower extremities. MUSCULOSKELETAL: Muscle strength and tone normal. SPINE: No scoliosis or deformity SKIN: No rashes CENTRAL NERVOUS SYSTEM: Alert and oriented -3. No focal deficits, tone is normal in all 4 extremities. PSYCHIATRIC: Alert and oriented -3. Appropriate affect. Intact judgment and insight. - Labs CBC & Chem 7: 07/03/21 07:19 07/05/21 07:22 Labs: Abnormal Lab Results - Last 24 Hours (Table) 07/04/21 07/04/21 07/05/21 Range/Units 12:20 16:47 05:50 PT (9.0-12.0) sec INR (<1.2) Sodium (137-145) mmol/L Chloride (98-107) mmol/L Carbon Dioxide (22-30) mmol/L BUN (9-20) mg/dL Creatinine (0.66-1.25) mg/dL Glucose (74-99) mg/dL POC Glucose (mg/dL) 119 H 129 H 133 H (75-99) mg/dL 07/05/21 07/05/21 Range/Units 07:22 07:22 PT 16.6 H (9.0-12.0) sec INR 1.7 H (<1.2) Sodium 132 L (137-145) mmol/L Chloride 92 L (98-107) mmol/L Carbon Dioxide 34 H (22-30) mmol/L BUN 40 H (9-20) mg/dL Creatinine 1.84 H (0.66-1.25) mg/dL Glucose 112 H (74-99) mg/dL POC Glucose (mg/dL) (75-99) mg/dL Microbiology - Last 24 Hours (Table) 07/03/21 17:48 Gram Stain - Preliminary Sputum Sputum Culture - Preliminary Diphtheroid species Jenae albicans Assessment and Plan Plan: 1 Status post fall at home or could be related to orthostatic hypotension, possible syncope or possibility of cardiac arrhythmia, considering the patient is having intermittent episodes of A. fib with RVR, current rhythm is sinus and the patient is currently on oral amiodarone at a dose of 400 mg by mouth twice a day and long-term and to coagulation with warfarin. 2 right lower lobe pneumonia with bilateral pleural effusion, consistent with aspiration. Please refer to the noncontrast CAT scan of the chest. The patient is currently on Augmentin and the patient is also on Diflucan for jenae and his sputum grown on multiple occasions. 3 Dysphagia, patient had malik aspiration during modified barium swallow evaluation and at this time is complete nothing by mouth , post PEG tube placement 4 Chronic atrial fibrillation , currently on long-term and to coagulation with warfarin and the patient's rate is controlled. INR today is subtherapeutic at 1.7 5. Hypovolemic hyponatremia, recovered 6. Type 2 diabetes mellitus, currently on Glucerna. 7. History of hypertension 8. History of cerebellar stroke 9. History of [id number] smoking 10 chronic kidney failure, creatinine is improving and the creatinine is down to 1.84 11 history of nephrectomy, Nephrolithiasis with left ureteral obstruction, status post recent removal of nephrostomy recently 12 Abnormal LFTs, improving, asymptomatic Plan: Continue antibiotic coverage with Augmentin and Diflucan. Gram stain and culture of the sputum was noted and that shows jenae and diphtheroid species which is probably contaminant CAT scan of chest was noted Maintain aspiration precautions Continue DuoNeb updrafts Monitor blood sugars monitor LFTs Continue IV Lasix Patient has bilateral pleural effusions. No need for thoracentesis at this point in time. Objective INR the level of between 2 and 3 Monitor renal function We'll continue to follow
--- NOTE | 2021-07-05 11:11 | P.PN ---
Subjective Patient is seen in follow-up for acute kidney injury on chronic kidney disease. Renal function stable. On IV Lasix. Nonoliguric. No chest pain or shortness of breath. Receiving tube feeds due to aspiration. No changes overnight. Blood pressure stable. Vital signs are stable. General: The patient appeared well nourished and normally developed. HEENT: Head exam is unremarkable. LUNGS: Breath sounds decreased. HEART: Regular rate and rhythm. ABDOMEN: No distention. PEG tube noted. EXTREMITITES: No edema. Objective - Vital Signs Vital signs: Vital Signs Temp 97.7 F 07/04/21 23:43 Pulse 68 07/05/21 11:03 Resp 18 07/05/21 03:20 BP 122/67 07/05/21 03:20 Pulse Ox 96 07/05/21 03:20 Intake & Output 07/04/21 07/05/21 07/05/21 18:59 06:59 18:59 Intake Total 540 Output Total 1025 1350 Balance -1025 -810 Weight 92.5 kg Intake: Tube Feeding 540 Output: Urine 1025 1350 Other: Voiding Method Indwelling Catheter - Labs CBC & Chem 7: 07/03/21 07:19 07/05/21 07:22 Labs: Abnormal Lab Results - Last 24 Hours (Table) 07/04/21 07/04/21 07/05/21 Range/Units 12:20 16:47 05:50 PT (9.0-12.0) sec INR (<1.2) Sodium (137-145) mmol/L Chloride (98-107) mmol/L Carbon Dioxide (22-30) mmol/L BUN (9-20) mg/dL Creatinine (0.66-1.25) mg/dL Glucose (74-99) mg/dL POC Glucose (mg/dL) 119 H 129 H 133 H (75-99) mg/dL 07/05/21 07/05/21 Range/Units 07:22 07:22 PT 16.6 H (9.0-12.0) sec INR 1.7 H (<1.2) Sodium 132 L (137-145) mmol/L Chloride 92 L (98-107) mmol/L Carbon Dioxide 34 H (22-30) mmol/L BUN 40 H (9-20) mg/dL Creatinine 1.84 H (0.66-1.25) mg/dL Glucose 112 H (74-99) mg/dL POC Glucose (mg/dL) (75-99) mg/dL Microbiology - Last 24 Hours (Table) 07/03/21 17:48 Gram Stain - Preliminary Sputum Sputum Culture - Preliminary Diphtheroid species Jenae albicans Assessment and Plan Plan: Assessment: 1. Acute kidney injury secondary to ATN secondary to hemodynamic instability and component of cardiorenal syndrome. Creatinine stable at 1.84 today. No hydronephrosis noted on kidney ultrasound. UA fairly benign. 2. Chronic kidney disease 3a with baseline creatinine near 1.6-2 secondary to solitary right kidney and obstructive uropathy. 3. Status post left nephrectomy. 4. Status post removal of left nephrostomy tube on 06/11/2021. 5. Hyperkalemia secondary to acute kidney injury and enalapril. Resolved. 6. Diabetes mellitus. 7. Volume overload. Improving with diuresis. 8. Hypomagnesemia from poor intake. Replaced. Stable. 9. Orthostatic hypotension. Cardiology following. On midodrine. Cortisol level not low. TSH normal. 10. Urinary retention. Has a Lara catheter. 11. A. fib with RVR on amiodarone and Lopressor. 12. Anemia of chronic kidney disease. Iron deficiency noted - status post IV iron. On aranesp. 13. Chronic chronic diastolic CHF with severe pulmonary hypertension. 14. Status post PEG tube placement due to aspiration. Plan: Maintain Lasix. Avoid nephrotoxins. Continue to monitor renal function and urine output.
[2021-07-05 12:02] LABS: Glucose,Whole Blood 142 mg/dL (75-99)
[2021-07-05 17:44] LABS: Glucose,Whole Blood 129 mg/dL (75-99)
[2021-07-05] MEDS ORDERED: WARFARIN 3 MG TAB PO ONE (18:00)
[2021-07-05 20:16] LABS: Glucose,Whole Blood 123 mg/dL (75-99)
--- NOTE | 2021-07-05 21:09 | P.PN ---
Progress Note - Text Progress Note Date: 07/05/21 REASON FOR FOLLOWUP: Pneumonia. INTERVAL HISTORY: The patient remains to afebrile. The patient is breathing comfortably on nasal canula oxygen, The patient denies any chest pain or worsening cough or sputum production. No abdominal pain or diarrhea. PHYSICAL EXAMINATION: Blood pressure 115/65 with a pulse of 70, temperature 97.6. He is 94% on 1 L nasal cannula. GENERAL DESCRIPTION: General description is a middle-aged male up in the chair in no distress. RESPIRATORY SYSTEM: Unlabored breathing. Decreased intensity of breath sounds. No wheeze. HEART: S1, S2. Regular rate and rhythm. ABDOMEN: Soft. No tenderness. LABS: Repeat sputum with diptheroid and jenae DIAGNOSTIC IMPRESSION AND PLAN: Patient with increasing shortness of breath and cough with evidence of right lower lobe pneumonia. Sputum with diptherid and Jenae, more likely colonizer. Patient to continue with Augmentin; to continue and monitor his clinical course closely.
[2021-07-06] MEDS: MIDODRINE 5 MG TAB PO SCH ×3 (05:49→16:50)
[2021-07-06 06:08] LABS: Glucose,Whole Blood 117 mg/dL (75-99)
[2021-07-06] MEDS: INSULIN ASPART (NovoLOG) 100 UNIT/ML VIAL SQ SCH ×3 (06:12→17:01)
--- NOTE | 2021-07-06 07:04 | P.PN ---
Progress Note - Text Patient approved for rehab but apparently prefered plan closer to home.
[2021-07-06] MEDS: SYMBICORT 160-4.5 MCG INHALER INHALATION SCH ×2 (07:56→19:26)
[2021-07-06] MEDS: IPRATROPIUM-ALBUTEROL 3 ML NEB INHALATION SCH ×4 (07:56→19:26)
[2021-07-06 08:05] LABS: Anisocytosis Slight; HCT 31.3 % (39.0-53.0); HGB 9.8 gm/dL (13.0-17.5); Hypochromasia Slight; MCH 35.9 pg (25.0-35.0); MCHC 31.3 g/dL (31.0-37.0); MCV 114.6 fL (80.0-100.0); Macrocytosis Marked; Mean Platelet Volume 8.2; Platelet Count 341 k/uL (150-450); Poikilocytosis Slight; RBC 2.73 m/uL (4.30-5.90); RDW 17.3 % (11.5-15.5); WBC 7.5 k/uL (3.8-10.6)
[2021-07-06 08:31] LABS: INR 1.6 (<1.2); Prothrombin Time 16.4 sec (9.0-12.0)
[2021-07-06] MEDS: AMIODARONE 200 MG TAB PO SCH ×2 (08:35→20:02)
[2021-07-06] MEDS: FOLIC ACID 1 MG TAB PO SCH (08:35)
[2021-07-06] MEDS: FAMOTIDINE 20 MG TAB PO SCH (08:35)
[2021-07-06] MEDS: METOPROLOL TARTRATE 25 MG TAB PO SCH ×3 (08:35→20:02)
[2021-07-06] MEDS: FUROSEMIDE 10 MG/ML 2 ML VIAL IV SCH (08:36)
[2021-07-06] MEDS: CYANOCOBALAMIN 500 MCG TAB PO SCH (08:36)
[2021-07-06] MEDS: VENLAFAXINE HCL 75 MG TAB PO SCH ×2 (08:36→20:02)
[2021-07-06] MEDS: FLUCONAZOLE ORAL SUSP 1,400 MG/35 ML BOTTLE PO SCH (08:36)
[2021-07-06] MEDS: AMOXIC-POT CLAV 200-28.5MG/5ML 100 ML BOTTLE PEG/G-TUBE SCH ×2 (08:56→16:50)
[2021-07-06 09:38] LABS: Albumin 2.8 g/dL (3.5-5.0); Calcium 9.5 mg/dL (8.4-10.2); Potassium 4.8 mmol/L (3.5-5.1); Total Bilirubin 0.7 mg/dL (0.2-1.3); Total Protein 6.3 g/dL (6.3-8.2)
--- NOTE | 2021-07-06 10:47 | P.PN ---
Subjective Patient is seen in follow-up for acute kidney injury on chronic kidney disease. Renal function a little worse today. On IV Lasix. Nonoliguric. No chest pain or shortness of breath. Receiving tube feeds due to aspiration. No changes overnight. Blood pressure stable. Vital signs are stable. General: The patient appeared well nourished and normally developed. HEENT: Head exam is unremarkable. LUNGS: Breath sounds decreased. HEART: Regular rate and rhythm. ABDOMEN: No distention. PEG tube noted. EXTREMITITES: No edema. Objective - Vital Signs Vital signs: Vital Signs Temp 97.7 F 07/06/21 08:30 Pulse 65 07/06/21 08:30 Resp 16 07/06/21 08:30 BP 142/77 07/06/21 08:30 Pulse Ox 96 07/06/21 08:30 Intake & Output 07/05/21 07/06/21 07/06/21 18:59 06:59 18:59 Intake Total 270 Output Total 1329 1140 Balance -1329 -1140 270 Weight 92.5 kg 70.5 kg Intake: Tube Feeding 270 Output: Urine 1329 1140 Other: Voiding Method Indwelling Catheter Indwelling Catheter - Labs CBC & Chem 7: 07/06/21 07:43 07/06/21 07:43 Labs: Abnormal Lab Results - Last 24 Hours (Table) 07/05/21 07/05/21 07/05/21 Range/Units 12:00 17:40 20:15 RBC (4.30-5.90) m/uL Hgb (13.0-17.5) gm/dL Hct (39.0-53.0) % MCV (80.0-100.0) fL MCH (25.0-35.0) pg RDW (11.5-15.5) % Macrocytosis PT (9.0-12.0) sec INR (<1.2) Sodium (137-145) mmol/L Chloride (98-107) mmol/L Carbon Dioxide (22-30) mmol/L BUN (9-20) mg/dL Creatinine (0.66-1.25) mg/dL Glucose (74-99) mg/dL POC Glucose (mg/dL) 142 H 129 H 123 H (75-99) mg/dL ALT (4-49) U/L Albumin (3.5-5.0) g/dL 07/06/21 07/06/21 07/06/21 Range/Units 06:06 07:43 07:43 RBC 2.73 L (4.30-5.90) m/uL Hgb 9.8 L (13.0-17.5) gm/dL Hct 31.3 L (39.0-53.0) % MCV 114.6 H (80.0-100.0) fL MCH 35.9 H (25.0-35.0) pg RDW 17.3 H (11.5-15.5) % Macrocytosis Marked A PT 16.4 H (9.0-12.0) sec INR 1.6 H (<1.2) Sodium (137-145) mmol/L Chloride (98-107) mmol/L Carbon Dioxide (22-30) mmol/L BUN (9-20) mg/dL Creatinine (0.66-1.25) mg/dL Glucose (74-99) mg/dL POC Glucose (mg/dL) 117 H (75-99) mg/dL ALT (4-49) U/L Albumin (3.5-5.0) g/dL 07/06/21 Range/Units 07:43 RBC (4.30-5.90) m/uL Hgb (13.0-17.5) gm/dL Hct (39.0-53.0) % MCV (80.0-100.0) fL MCH (25.0-35.0) pg RDW (11.5-15.5) % Macrocytosis PT (9.0-12.0) sec INR (<1.2) Sodium 134 L (137-145) mmol/L Chloride 89 L (98-107) mmol/L Carbon Dioxide 36 H (22-30) mmol/L BUN 38 H (9-20) mg/dL Creatinine 1.98 H (0.66-1.25) mg/dL Glucose 117 H (74-99) mg/dL POC Glucose (mg/dL) (75-99) mg/dL ALT 164 H (4-49) U/L Albumin 2.8 L (3.5-5.0) g/dL Microbiology - Last 24 Hours (Table) 07/03/21 17:48 Gram Stain - Preliminary Sputum Sputum Culture - Preliminary Diphtheroid species Jenae albicans Assessment and Plan Plan: Assessment: 1. Acute kidney injury secondary to ATN secondary to hemodynamic instability and component of cardiorenal syndrome. Creatinine slightly worse at 1.98 today. No hydronephrosis noted on kidney ultrasound. UA fairly benign. 2. Chronic kidney disease 3a with baseline creatinine near 1.6-2 secondary to solitary right kidney and obstructive uropathy. 3. Status post left nephrectomy. 4. Status post removal of left nephrostomy tube on 06/11/2021. 5. Hyperkalemia secondary to acute kidney injury and enalapril. Resolved. 6. Diabetes mellitus. 7. Volume overload. Improving with diuresis. 8. Hypomagnesemia from poor intake. Replaced. Stable. 9. Orthostatic hypotension. Cardiology following. On midodrine. Cortisol level not low. TSH normal. 10. Urinary retention. Has a Lara catheter. 11. A. fib with RVR on amiodarone and Lopressor. 12. Anemia of chronic kidney disease. Iron deficiency noted - status post IV iron. On aranesp. 13. Chronic chronic diastolic CHF with severe pulmonary hypertension. 14. Status post PEG tube placement due to aspiration. Plan: Maintain Lasix - change to oral. Avoid nephrotoxins. Continue to monitor renal function and urine output.
--- NOTE | 2021-07-06 11:44 | P.PN ---
Subjective Progress Note Date: 07/06/21 Today's evaluation of 07/06/2021, the patient has being seen for a follow-up in the sputum production is improved. He is producing less of the sputum. significant of the chest was noted and the patient has bilateral pleural effusion and some infiltrates in lung bases bilaterally. doing well. nick erating his enteral feeding and the patient is currently on glucerna through a peg tube. getting stronger. he still on oxygen at 3 l per minute nasal cannula. hemodynamically stable and his saturations around 96%. otherwise, the rest of the blood work shows a white cell, 7.5 with hemoglobin of 9.8. The INR is at 1.6 with a PT of 16. The patient is awake and alert. He is still weak and quite debilitated. Diflucan was also added regarding Jenae in his sputum. He remains on Augmentin liquid which is able to tolerate without any major difficulties. He remains on oral Lasix 20 mg by mouth twice a day. Fluid balance has been -2.4 L over the past 24 hours and the patient is diuresing a dequately on oral Lasix. Objective - Vital Signs Vital signs: Vital Signs Temp 97.7 F 07/06/21 08:30 Pulse 65 07/06/21 08:30 Resp 16 07/06/21 08:30 BP 142/77 07/06/21 08:30 Pulse Ox 96 07/06/21 08:30 Intake & Output 07/05/21 07/06/21 07/06/21 18:59 06:59 18:59 Intake Total 270 Output Total 1329 1140 250 Balance -1329 -1140 20 Weight 92.5 kg 70.5 kg Intake: Tube Feeding 270 Output: Urine 1329 1140 250 Other: Voiding Method Indwelling Catheter Indwelling Catheter # Bowel Movements 1 - Exam GENERAL EXAM: Alert, pleasant, chronically ill looking 61-year-old male, sitting up in the recliner, on 3 L of oxygen, with pulse ox of 94 % comfortable in no apparent distress. HEAD: Normocephalic/atraumatic. EYES: Normal reaction of pupils, equal size. Conjunctiva pink, sclera white. NOSE: Clear with pink turbinates. THROAT: No erythema or exudates. NECK: No masses, no JVD, no thyroid enlargement, no adenopathy. CHEST: No chest wall deformity. Symmetrical expansion. LUNGS: Equal air entry with diminished breath sounds and some crackles at the bases CVS: Regular rate and rhythm, normal S1 and S2, no gallops, no murmurs, no rubs ABDOMEN: Soft, nontender. No hepatosplenomegaly, normal bowel sounds, no guarding or rigidity. The PEG tube and the exit site is dry clean and intact. EXTREMITIES: No clubbing, no edema, no cyanosis, 2+ pulses and upper and lower extremities. MUSCULOSKELETAL: Muscle strength and tone normal. SPINE: No scoliosis or deformity SKIN: No rashes CENTRAL NERVOUS SYSTEM: Alert and oriented -3. No focal deficits, tone is normal in all 4 extremities. PSYCHIATRIC: Alert and oriented -3. Appropriate affect. Intact judgment and insight. - Labs CBC & Chem 7: 07/06/21 07:43 07/06/21 07:43 Labs: Abnormal Lab Results - Last 24 Hours (Table) 07/05/21 07/05/21 07/05/21 Range/Units 12:00 17:40 20:15 RBC (4.30-5.90) m/uL Hgb (13.0-17.5) gm/dL Hct (39.0-53.0) % MCV (80.0-100.0) fL MCH (25.0-35.0) pg RDW (11.5-15.5) % Macrocytosis PT (9.0-12.0) sec INR (<1.2) Sodium (137-145) mmol/L Chloride (98-107) mmol/L Carbon Dioxide (22-30) mmol/L BUN (9-20) mg/dL Creatinine (0.66-1.25) mg/dL Glucose (74-99) mg/dL POC Glucose (mg/dL) 142 H 129 H 123 H (75-99) mg/dL ALT (4-49) U/L Albumin (3.5-5.0) g/dL 07/06/21 07/06/21 07/06/21 Range/Units 06:06 07:43 07:43 RBC 2.73 L (4.30-5.90) m/uL Hgb 9.8 L (13.0-17.5) gm/dL Hct 31.3 L (39.0-53.0) % MCV 114.6 H (80.0-100.0) fL MCH 35.9 H (25.0-35.0) pg RDW 17.3 H (11.5-15.5) % Macrocytosis Marked A PT 16.4 H (9.0-12.0) sec INR 1.6 H (<1.2) Sodium (137-145) mmol/L Chloride (98-107) mmol/L Carbon Dioxide (22-30) mmol/L BUN (9-20) mg/dL Creatinine (0.66-1.25) mg/dL Glucose (74-99) mg/dL POC Glucose (mg/dL) 117 H (75-99) mg/dL ALT (4-49) U/L Albumin (3.5-5.0) g/dL 07/06/21 Range/Units 07:43 RBC (4.30-5.90) m/uL Hgb (13.0-17.5) gm/dL Hct (39.0-53.0) % MCV (80.0-100.0) fL MCH (25.0-35.0) pg RDW (11.5-15.5) % Macrocytosis PT (9.0-12.0) sec INR (<1.2) Sodium 134 L (137-145) mmol/L Chloride 89 L (98-107) mmol/L Carbon Dioxide 36 H (22-30) mmol/L BUN 38 H (9-20) mg/dL Creatinine 1.98 H (0.66-1.25) mg/dL Glucose 117 H (74-99) mg/dL POC Glucose (mg/dL) (75-99) mg/dL ALT 164 H (4-49) U/L Albumin 2.8 L (3.5-5.0) g/dL Microbiology - Last 24 Hours (Table) 07/03/21 17:48 Gram Stain - Preliminary Sputum Sputum Culture - Preliminary Diphtheroid species Jenae albicans Assessment and Plan Plan: 1 Status post fall at home or could be related to orthostatic hypotension, possible syncope or possibility of cardiac arrhythmia, considering the patient is having intermittent episodes of A. fib with RVR, current rhythm is sinus and the patient is currently on oral amiodarone at a dose of 400 mg by mouth twice a day and long-term and to coagulation with warfarin. 2 right lower lobe pneumonia with bilateral pleural effusion, consistent with aspiration. Please refer to the noncontrast CAT scan of the chest. The patient is currently on Augmentin and the patient is also on Diflucan for jenae and his sputum grown on multiple occasions. The patient is responding nicely to the treatment. Sputum production is improved and the patient remains on 3 L of oxygen by nasal cannula. For now he is receiving enteral feeding for nutritional support. 3 Dysphagia, patient had malik aspiration during modified barium swallow evaluation and at this time is complete nothing by mouth , post PEG tube placement 4 Chronic atrial fibrillation , currently on long-term and to coagulation with warfarin and the patient's rate is controlled. INR today is subtherapeutic and the patient remains on warfarin and the PT/INR is being adjusted accordingly. 5. Hypovolemic hyponatremia, recovered 6. Type 2 diabetes mellitus, currently on Glucerna. 7. History of hypertension 8. History of cerebellar stroke 9. History of [id number] smoking 10 chronic kidney failure, creatinine is improving and the creatinine is stable at 1.9 11 history of nephrectomy, Nephrolithiasis with left ureteral obstruction, status post recent removal of nephrostomy recently 12 Abnormal LFTs, improving, asymptomatic Plan: Continue antibiotic coverage with Augmentin and Diflucan. Gram stain and culture of the sputum was noted and that shows jenae and diphtheroid species which is probably contaminant CAT scan of chest was noted, consistent with bilateral pleural effusion and right lower lobe pneumonia. The patient is antibiotics and diuretics. Maintain aspiration precautions Continue [facility] Monitor blood sugars monitor LFTs Continue oral Lasix and the patient remains on a negative fluid balance Patient has bilateral pleural effusions. No need for thoracentesis at this point in time. Objective INR the level of between 2 and 3 Monitor renal function Repeat chest x-ray in the morning We'll continue to follow
[2021-07-06 12:11] LABS: Glucose,Whole Blood 118 mg/dL (75-99)
--- NOTE | 2021-07-06 12:26 | CDI ---
Documentation Clarification Form Date: 07/05/2021 01:59:00 PM From: Ban Morales RN Phone: Admit Date: 06/15/2021 06:28:00 AM Patient Name: Everett Juárez Visit Number: [id number] Discharge Date: ATTENTION: The Clinical Documentation Specialists (CDI) and [facility] Coding Staff appreciate your assistance in clarifying documentation. Please respond to the clarification below the line at the bottom and electronically sign. The CDI & [facility] Coding staff will review the response and follow-up if needed. Please note: Queries are made part of the Legal Health Record. If you have any questions, please contact the author of this message via ITS. Dr. Artur Schilling The patients principal diagnosis the diagnosis that was chiefly responsible for the admission - has not been clearly identified and clarification is requested. 06/16 Neurology consult: Syncopal spell, probably vasovagal. Arrhythmia also in the differential. Doubt seizure. 06/16 Nephrology consult: hyponatremia secondary to chronic kidney disease. Hyperkalemia secondary acute kidney injury as well as from enalapril 06/25 Cardiology progress note: On admission found to be hyponatremic, hypokalemic, patient appeared to be dehydrated. Also suspect the patent had aspiration pneumonia. On admission, patients initial EKG revealed sinus rhythm, heart rate 77 then converted to atrial fibrillation with RVR HR 180s Fall secondary to orthostatic hypotension The patient presented on 06/15 with generalized weakness, fall at home, not sure if he had loss of consciousness. History/Risk factors: CVA, TIA, DM, HTN, Current smoker Clinical Indicators: 61-year-old male present to ED on 06/15/21 after a fall. He has history of stroke 7 years ago -vision loss right eye and unstable gait and right leg weakness, 06/15 Vital signs: 87/50 71 16 97.4, 132/72 76 16 97.3 96 % RA 06/15 Lab findings: WBC 11.2, HGB 9.7, HCT 29.8 NA+ 136, BUN 40, CR 2.01, Lactic acid 2.1, Potassium 6.0, 6.2; COVID-19 negative 06/15 CXR: No acute lung disease. There is clearing of the infiltrate right lung base compared to old exam 06/15 Carotid Ultrasound: Mild to moderate atherosclerotic change bilaterally, no hemodynamic significant stenosis is identified in either internal carotid artery. Treatment: Telemetry monitoring Monitor Labs, corrected electrolytes with normal saline and Kayexalate 15 GM PO ONCE Amiodarone drop transition to Amiodarone 400 MG PO BID .9NS IV 1/L bolus Avoid nephrotoxins Continue to monitor renal function and urinary output. In your professional opinion, can you please clarify which diagnosis, after study, was the reason chiefly responsible for the admission? [ ] Acute kidney injury with ATN [ ] Paroxysmal atrial fibrillation [ ] Dehydration [ ] Other, please specify [ ] Unable to determine (Template Last Revised: December 2020) Acute kidney injury with ATN Aspiration pneumonia requiring PEG tube placement during this admission ASHAD
[2021-07-06] MEDS: HYDROmorphone 0.5 MG/0.5 ML SYRINGE IVP PRN (13:55)
[2021-07-06 15:17] LABS: Basophils # (M) 0.08 k/uL (0-0.2); Eosinophils # (M) 0.08 k/uL (0-0.7); Monocytes # (M) 0.53 k/uL (0-1.0); Neutrophils # (M) 5.93 k/uL (1.3-7.7); Neutrophils % (M) 79 %; Nucleated Red Blood Cells 0 /100 WBC (0-0); Polychromasia Present; Tear Drop Cells Present; Total Cells Counted 100
--- NOTE | 2021-07-06 15:18 | PN ---
PROGRESS NOTE DATE OF SERVICE: 07/06/2021 REASON FOR FOLLOWUP: Possible pneumonia. INTERVAL HISTORY: The patient is afebrile. The patient is breathing comfortably. The patient denies having any chest pain, shortness of breath or any worsening cough. No abdominal pain or diarrhea. PHYSICAL EXAMINATION: On examination, blood pressure 135/77 with a pulse of 53, temperature 97.5. He is 97% on 3 L nasal cannula. GENERAL DESCRIPTION: General description is a middle-aged male lying in bed in no distress. RESPIRATORY SYSTEM: Unlabored breathing. Decreased breath sounds at the bases. No wheeze. HEART: S1, S2. Regular rate and rhythm. ABDOMEN: Soft. No tenderness. LABS: Hemoglobin is 9.3, white count 7.5. BUN of 38, creatinine 1.98. DIAGNOSTIC IMPRESSION AND PLAN: Patient with shortness of breath and cough. Pulmonary infiltrate is multifactorial, possible underlying pneumonia not excluded. Sputum has been Jenae likely colonization the patient is covered with oral Augmentin; to continue for monitor clinical course closely. MMODL / IJN: [id number] /
[2021-07-06] MEDS: FUROSEMIDE 20 MG TAB PO SCH (16:50)
[2021-07-06 17:10] LABS: Glucose,Whole Blood 116 mg/dL (75-99)
[2021-07-06] MEDS ORDERED: WARFARIN 3 MG TAB PO ONE (18:00)
[2021-07-07 00:16] LABS: Glucose,Whole Blood 140 mg/dL (75-99)
[2021-07-07] MEDS: AMOXIC-POT CLAV 200-28.5MG/5ML 100 ML BOTTLE PEG/G-TUBE SCH ×4 (00:44→23:22)
[2021-07-07] MEDS: INSULIN ASPART (NovoLOG) 100 UNIT/ML VIAL SQ SCH ×5 (00:45→23:28)
[2021-07-07 05:58] LABS: Glucose,Whole Blood 126 mg/dL (75-99)
[2021-07-07] MEDS: MIDODRINE 5 MG TAB PO SCH ×3 (06:03→17:21)
--- NOTE | 2021-07-07 07:40 | XR ---
EXAMINATION TYPE: XR chest 1V portable DATE OF EXAM: 07/07/2021 CLINICAL HISTORY: Difficulty breathing and pneumonia progress study. TECHNIQUE: Single AP portable upright view of the chest is obtained. COMPARISON: Chest x-ray from July 02, 2021. CT chest July 04, 2021 FINDINGS: Heart size stable and upper limits of normal. Persistent bibasilar opacities. Background c hronic emphysematous change. Patient remains rotated to the right. Osseous structures remain deminera lized. IMPRESSION: Chronic emphysematous change with persistent but improved small to tiny bilateral pleural effusions. There is persistent bibasilar acute infiltrate and/or atelectasis.
[2021-07-07] MEDS: IPRATROPIUM-ALBUTEROL 3 ML NEB INHALATION SCH ×4 (08:05→20:29)
[2021-07-07] MEDS: SYMBICORT 160-4.5 MCG INHALER INHALATION SCH ×2 (08:05→20:29)
[2021-07-07 08:13] LABS: Calcium 9.6 mg/dL (8.4-10.2); Magnesium 2.5 mg/dL (1.6-2.3); Potassium 4.8 mmol/L (3.5-5.1)
[2021-07-07 08:16] LABS: INR 1.8 (<1.2); Prothrombin Time 18.1 sec (9.0-12.0)
[2021-07-07] MEDS: AMIODARONE 200 MG TAB PO SCH ×2 (09:25→21:57)
[2021-07-07] MEDS: VENLAFAXINE HCL 75 MG TAB PO SCH ×2 (09:26→21:58)
[2021-07-07] MEDS: CYANOCOBALAMIN 500 MCG TAB PO SCH (09:26)
[2021-07-07] MEDS: METOPROLOL TARTRATE 25 MG TAB PO SCH ×3 (09:26→21:57)
[2021-07-07] MEDS: FOLIC ACID 1 MG TAB PO SCH (09:26)
[2021-07-07] MEDS: FUROSEMIDE 20 MG TAB PO SCH ×2 (09:26→17:21)
[2021-07-07] MEDS: FAMOTIDINE 20 MG TAB PO SCH (09:26)
[2021-07-07] MEDS: FLUCONAZOLE ORAL SUSP 1,400 MG/35 ML BOTTLE PO SCH (09:29)
--- NOTE | 2021-07-07 10:25 | P.PN ---
Subjective Progress Note Date: 07/07/21 Everett Juárez, is a 61-year-old male patient of Dr. Jama, who presented to [facility] emergency room after sustaining a fall, and complaining of generalized weakness and dizziness, patient is not clear whether he passed out or had any loss of consciousness. Patient was also complaining of chest pain in the EMS, EKG was within normal limits and troponin level was less than 0.01 He was evaluated in the emergency room vital examination on presentation revealed a temperature of 97.4 pulse 71 respirations 16 blood pressure 87/50 pulse ox 94% on room air Laboratory data revealed a white blood count of 8.6 hemoglobin 12.0 platelet count 338 INR 1.2 sodium 128 potassium 6.2 chloride 99 CO2 22 BUN 17 creatinine 2.01 lactic acid on presentation 2.1 urine analysis did not reveal evidence of significant infection. Testing in the emergency room revealed EKG revealed normal sinus rhythm normal EKG chest x-ray done in the emergency room revealed no acute lung disease there was prominent pulmonary leon that could be related to adenopathy. 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 Patient was admitted to medical floor for further evaluation and treatment. Past medical history is significant for history of hypertension, history of hyperlipidemia, history of chronic kidney disease, history of [id number] diabetes mellitus, history of previous stroke, history of paroxysmal atrial fibrillation maintained on Coumadin, history of COPD, patient still smoke a few cigarettes per day, he denies alcohol use. On review of systems Patient is alert and responsive in no distress, he denies any complaints there is no fever or chills no headache or dizziness no chest pain no shortness of breath no palpitation no cough no nausea or vomiting no abdominal pain no diarrhea no blood in the stools no burning with urination no frequency or urgency and no hematuria, there is no weakness or numbness in any of the extremities no change in vision speech, gait was not tested. On 06/16/2021 patient was seen and examined on the telemetry floor he is alert and oriented 3 in no apparent distress he is still complaining of dizziness and weakness otherwise he denies any complaints there is no fever or chills no headache no chest pain no shortness of breath no cough no palpitation no nausea or vomiting no abdominal pain no diarrhea no blood in the stools no burning with urination no frequency or urgency and no hematuria there is no weakness or numbness in any of the extremities no change in vision or in speech On 06/17/2021 Patient was seen and examined on the medical floor, he is alert and oriented x 3 in no distress, he denies any complaints there is no fever or chills no headache or dizziness no chest pain no shortness of breath no palpitation no cough no nausea or vomiting no abdominal pain no diarrhea no blood in the stools no burning with urination no frequency or urgency and no hematuria, there is no weakness or numbness in any of the extremities no change in vision or speech, gait was not tested at this time, patient had significant orthostatic hypotension, this was discussed with cardiology, and dose of Catapres was adjusted down to 0.1 mg by mouth twice a day, patient will be reevaluated by cardiology in a.m. On 06/18/2021 patient was seen and examined on the medical floor, he is alert and oriented 3 in no distress, he is complaining of weakness otherwise he denies any specific complaints, there is no fever or chills no headache or dizziness no chest pain no shortness of breath no cough no nausea or vomiting no abdominal pain no diarrhea no blood in the stools no burning with urination no frequency or urgency no hematuria, there is no weakness or numbness in any of the extremities there is no change in vision speech or gait. Repeat orthostatic hypotension reveals significant drop while standing, cardiology are following, yesterday dose of Catapres was decreased to 0.1 by mouth twice daily, awaiting further recommendation from cardiology On 06/19/2021 patient was seen and examined on the medical floor, he is alert and oriented 3 in no distress, he is complaining of weakness otherwise he denies any specific complaints, he is still having significant orthostatic hypotension was significant drop in blood pressure when patient stands up. the re is no fever or chills no headache or dizziness no chest pain no shortness of breath no cough no nausea or vomiting no abdominal pain no diarrhea no blood in the stools no burning with urination no frequency or urgency no hematuria, there is no weakness or numbness in any of the extremities there is no change in vision speech or gait. Cardiology are following at this time Catapres is being discontinued and midodrine was added to medication regimen will continue to monitor closely. On 06/20/2021 patient was seen and examined on the medical floor he is alert and oriented 3 in no apparent distress, this morning he had an episode of palpitation and severe shortness of breath, EKG revealed SVT versus A. fib with RVR with a heart rate of 186 patient was transferred to [facility]. he was seen by [facility] rdiology and was started on IV amiodarone, chest x-ray was done today and was suspicious for right sided infiltrate suggestive of pneumonia patient is stating that he is having some cough with yellow sputum production WBC is low, patient was started on IV antibiotic Zosyn, and pulmonary consultation was requested. Patient denies any fever or chills no headache or dizziness no chest pain no nausea or vomiting no abdominal pain no diarrhea and no urinary symptoms. On 06/21/2021 patient was seen and examined on the medical floor he is complaining of cough otherwise he denies any complaints at this time there is no fever or chills no headache or dizziness no chest pain no shortness of breath no nausea or vomiting no abdominal pain no diarrhea no blood in the stools no burning with urination no frequency or urgency and no hematuria, yesterday patient had an episode of A. fib with RVR, he was started on IV amiodarone by cardiology and was transferred to telemetry floor, also chest x-ray revealed evidence of right basilar infiltrate, he was started on IV Zosyn pulmonary consultation was requested, sputum culture was ordered On 06/22/2021 Patient was seen and examined on the medical floor, he is alert and oriented x 3 in no distress, he is complaining of cough otherwise he denies any complaints there is no fever or chills no headache or dizziness no chest pain no shortness of breath no palpitation no cough no nausea or vomiting no abdominal pain no diarrhea no blood in the stools no burning with urination no frequency or urgency and no hematuria, there is no weakness or numbness in any of the extremities no change in vision speech or gait. Patient failed swallow evaluation with all food consistency today, he is kept nothing by mouth consultation for Dr. Zacarias for PEG tube placement was initiated. On 06/23/2021 patient is alert and oriented 3. Patient is resting comfortably in bed. Patient currently maintained on amiodarone drip per cardiology. Patient also maintained on IV Zosyn for aspiration pneumonia. Surgical services have been consulted for PEG tube placement. At this time pulmonary, cardiology, nephrology and surgical services following. Repeat labs have been ordered. Patient is still complaining of chest congestion and cough. Patient denies chest pain. Patient denies nausea vomiting or diarrhea. Patient denies any urinary burning or frequency. On 06/24/2021 Patient was seen and examined on the medical floor, he is alert and oriented x 3 in no distress, he denies any complaints there is no fever or chills no headache or dizziness no chest pain no shortness of breath no palpitation no cough no nausea or vomiting no abdominal pain no diarrhea no blood in the stools no burning with urination no frequency or urgency and no hematuria, there is no weakness or numbness in any of the extremities no change in vision speech, today INR is 5.3 Coumadin is on hold Will give 1 dose of vitamin K 2 mg IV patient is nothing by mouth , he is awaiting PEG tube placement On 06/24/2021 patient is alert and oriented 3 INR 1.2. Patient maintained on IV amiodarone. Tentative plans for PEG tube placement tomorrow per surgical services. . At this time patient remains with productive cough. Patient denies chest pain. Patient denies nausea vomiting or diarrhea. Patient denies any urinary burning or frequency On 06/26/2021 Patient was seen and examined on the medical floor, he is alert and oriented x 3 in no distress, he denies any complaints there is no fever or chills no headache or dizziness no chest pain no shortness of breath no palp itation no cough no nausea or vomiting no abdominal pain no diarrhea no blood in the stools no burning with urination no frequency or urgency and no hematuria, there is no weakness or numbness in any of the extremities no change in vision speech, patient received vitamin K his INR is low we are awaiting PEG tube placement On 06/27/2021 Patient was seen and examined on the medical floor, he is alert and oriented x 3 in no distress, he denies any complaints there is no fever or chills no headache or dizziness no chest pain no shortness of breath no palpitation no cough no nausea or vomiting no abdominal pain no diarrhea no blood in the stools no burning with urination no frequency or urgency and no hematuria, there is no weakness or numbness in any of the extremities no change in vision speech, Patient underwent PEG tube placement and was started on PEG tube feeding, will continue to follow closely will recheck chest x-ray in a.m. On 06/28/2021 patient alert and oriented 3. Repeat chest x-ray showing worsening interstitial edema with superimposed infiltrates versus atelectasis. Small pleural effusion. We'll reconsult pulmonary services. Patient remains on IV Zosyn. Patient does have PEG tube in place tube feeds running. At this time patient denies chest pain. Patient does report occasional cough with sputum production. Patient denies nausea vomiting or diarrhea. Patient denies any urinary burning or frequency. On 06/29/2021 patient was seen and examined on the telemetry floor, he is alert and oriented 3 in no distress, he is still complaining of shortness of breath and occasional cough, his chest x-ray done yesterday reveals worsening of the pulmonary infiltrate, he is still maintained on IV Zosyn, and is maintained on oxygen at 5 L via nasal cannula, pulmonary consultation was resubmitted yesterday for reevaluation and further advice regarding antibiotic treatment and further management of his pulmonary consultation, at this time patient is not ready yet for discharge to a rehab center, otherwise he denies any complaints there is no fever or chills no chest pain no nausea or vomiting no abdominal pain no diarrhea no blood in the stools and no urinary symptoms PEG tube site is clear. 06/30/2021 patient alert and oriented 3. Patient still having significant sputum production. Will order repeat sputum sample consults infectious disease services. Patient's liver enzymes also significantly elevated. Lipitor DC'd. Liver ultrasound will be ordered. Patient denies chest pain. Patient denies nausea vomiting or diarrhea. Patient denies any urinary burning or frequency On 07/01/2021 Patient was seen and examined on the medical floor, he is alert and oriented x 3 in no distress, he denies any complaints there is no fever or chills no headache or dizziness no chest pain no shortness of breath no palpitation no cough no nausea or vomiting no abdominal pain no diarrhea no blood in the stools no burning with urination no frequency or urgency and no hematuria, there is no weakness or numbness in any of the extremities no change in vision speech. Liver enzymes are quite elevated but are improving gradually, Lipitor was discontinued and Tylenol was discontinued, will continue to monitor On 07/02/2021 Patient is alert and oriented x 3 in no distress, he denies any complaints there is no fever or chills no headache or dizziness no chest pain no shortness of breath no palpitation no cough no nausea or vomiting no abdominal pain no diarrhea no blood in the stools no burning with urination no frequency or urgency and no hematuria, there is no weakness or numbness in any of the extremities no change in vision speech. Liver enzymes are quite elevated but are improving gradually, Lipitor was discontinued and Tylenol was discontinued, will continue to monitor, kidney function remains slightly elevated. On 07/03/2021 Patient was seen and examined on the medical floor, he is alert and oriented x 3 in no distress, he denies any complaints there is no fever or chills no headache or dizziness no chest pain no shortness of breath no palpitation no cough no nausea or vomiting no abdominal pain no diarrhea no blood in the stools no burning with urination no frequency or urgency and no hematuria, there is no weakness or numbness in any of the extremities no change in vision speech or gait. At this time liver enzymes are improving gradually will continue to monitor closely patient lost his IV access, will proceed with midline placement in a.m. on 07/05/2021 patient is alert and oriented 3. Chest CT completed showing bi lateral pleural effusions with right lower lobe infiltrate as well as patchy areas of infiltrate in the right upper lobe. Pulmonary and infectious disease services are following. Patient remains on Augmentin and Diflucan. Patient also maintained on IV Lasix. At this time patient denies chest pain. Patient denies nausea vomiting or diarrhea. Patient denies any urinary burning or frequency On 07/07/2021 patient is alert and oriented 3. Creatinine increasing to 2.16 and bun 39. Will add 250 mL of free water every 6 hours. Repeat chest x-ray ordered per pulmonary. Patient remains on Lasix. Pulmonary nephrology infectious disease service is following. At this time patient denies chest pain or shortness breath. Patient denies nausea vomiting or diarrhea. Patient denies any urinary burning or frequency Objective - Vital Signs Vital signs: Vital Signs Temp 97.6 F 07/07/21 09:20 Pulse 68 07/07/21 09:20 Resp 18 07/07/21 09:20 BP 121/72 07/07/21 09:20 Pulse Ox 92 L 07/07/21 09:20 Intake & Output 07/06/21 07/07/21 07/07/21 18:59 06:59 18:59 Intake Total 810 810 270 Output Total 1450 200 Balance -640 610 270 Weight 82.5 kg Intake: Tube Feeding 810 810 270 Output: Urine 1450 200 Other: Voiding Method Indwelling Catheter Indwelling Catheter # Voids 1 # Bowel Movements 1 - Exam In general patient is alert and responsive in no distress HEENT head normocephalic and atraumatic Neck is supple no JVD no goiter no lymphadenopathy no carotid bruit Chest examination is clear to auscultation no crackles no wheezing Cardiac exam reveals regular heart sounds S1 and S2 no gallops no murmurs Abdomen is soft nontender no organomegaly with normal bowel sounds Extremity exam reveals no edema no cyanosis or clubbing Neurological examination reveals no gross focal deficits - Labs CBC & Chem 7: 07/06/21 07:43 07/07/21 07:34 Labs: Abnormal Lab Results - Last 24 Hours (Table) 07/06/21 07/06/21 07/06/21 Range/Units 07:43 11:58 16:58 Lymphocytes # (Manual) 0.90 L (1.0-4.8) k/uL PT (9.0-12.0) sec INR (<1.2) Sodium (137-145) mmol/L Chloride (98-107) mmol/L Carbon Dioxide (22-30) mmol/L BUN (9-20) mg/dL Creatinine (0.66-1.25) mg/dL Glucose (74-99) mg/dL POC Glucose (mg/dL) 118 H 116 H (75-99) mg/dL Magnesium (1.6-2.3) mg/dL 07/07/21 07/07/21 07/07/21 Range/Units 00:15 05:56 07:34 Lymphocytes # (Manual) (1.0-4.8) k/uL PT (9.0-12.0) sec INR (<1.2) Sodium 131 L (137-145) mmol/L Chloride 91 L (98-107) mmol/L Carbon Dioxide 34 H (22-30) mmol/L BUN 39 H (9-20) mg/dL Creatinine 2.16 H (0.66-1.25) mg/dL Glucose 120 H (74-99) mg/dL POC Glucose (mg/dL) 140 H 126 H (75-99) mg/dL Magnesium 2.5 H (1.6-2.3) mg/dL 07/07/21 Range/Units 07:34 Lymphocytes # (Manual) (1.0-4.8) k/uL PT 18.1 H (9.0-12.0) sec INR 1.8 H (<1.2) Sodium (137-145) mmol/L Chloride (98-107) mmol/L Carbon Dioxide (22-30) mmol/L BUN (9-20) mg/dL Creatinine (0.66-1.25) mg/dL Glucose (74-99) mg/dL POC Glucose (mg/dL) (75-99) mg/dL Magnesium (1.6-2.3) mg/dL Assessment and Plan Plan: Fall at home with unclear history whether patient had a syncopal episode or loss of consciousness Episode of chest pain while in the ambulance Atrial fibrillation with rapid ventricular response. Patient started on amiodarone drip per cardiology. Patient transitioned to by mouth amiodarone Underlying history of paroxysmal atrial fibrillation, maintained on Coumadin. Evidence of dehydration with electrolyte imbalance with hyponatremia and hyperkalemia. resolved Underlying history of chronic kidney disease Underlying history of [id number] diabetes mellitus, no evidence of hypoglycemia Underlying history of hypertension Previous history of cerebellar stroke. Right basilar infiltrate suggestive of pneumonia, patient started on IV Zosyn. infectious disease and pulmonary service is followingpatient transitioned to Diflucan and oral Augmentin Dysphagia. PEG tube placement per Dr. ordonez Elevated liver enzymes. Lipitor DC'd. numbers improving DVT prophylaxis Coumadin. GI prophylaxis Pepcid Pulmonary, cardiology, nephrology and surgical services following maintaine on Augmentin and Diflucan s/p peg tube placement Repeat labs ordered PT OT services consulted Social work consulted for possible ECF placement Pulmonary services reconsulted for worsening chest x-ray Infectious disease consulted for worsening pneumonia
--- NOTE | 2021-07-07 11:23 | P.PN ---
Subjective Patient is seen in follow-up for acute kidney injury on chronic kidney disease. Renal function a little worse today. On oral diuretics. Nonoliguric. No chest pain or shortness of breath. Receiving tube feeds due to aspiration. No changes overnight. Blood pressure stable. Vital signs are stable. General: The patient appeared well nourished and normally developed. HEENT: Head exam is unremarkable. LUNGS: Breath sounds decreased. HEART: Regular rate and rhythm. ABDOMEN: No distention. PEG tube noted. EXTREMITITES: No edema. Objective - Vital Signs Vital signs: Vital Signs Temp 97.6 F 07/07/21 09:20 Pulse 68 07/07/21 09:20 Resp 18 07/07/21 09:20 BP 121/72 07/07/21 09:20 Pulse Ox 92 L 07/07/21 09:20 Intake & Output 07/06/21 07/07/21 07/07/21 18:59 06:59 18:59 Intake Total 810 810 270 Output Total 1450 200 Balance -640 610 270 Weight 82.5 kg Intake: Tube Feeding 810 810 270 Output: Urine 1450 200 Other: Voiding Method Indwelling Catheter Indwelling Catheter # Voids 1 # Bowel Movements 1 - Labs CBC & Chem 7: 07/06/21 07:43 07/07/21 07:34 Labs: Abnormal Lab Results - Last 24 Hours (Table) 07/06/21 07/06/21 07/06/21 Range/Units 07:43 11:58 16:58 Lymphocytes # (Manual) 0.90 L (1.0-4.8) k/uL PT (9.0-12.0) sec INR (<1.2) Sodium (137-145) mmol/L Chloride (98-107) mmol/L Carbon Dioxide (22-30) mmol/L BUN (9-20) mg/dL Creatinine (0.66-1.25) mg/dL Glucose (74-99) mg/dL POC Glucose (mg/dL) 118 H 116 H (75-99) mg/dL Magnesium (1.6-2.3) mg/dL 07/07/21 07/07/21 07/07/21 Range/Units 00:15 05:56 07:34 Lymphocytes # (Manual) (1.0-4.8) k/uL PT (9.0-12.0) sec INR (<1.2) Sodium 131 L (137-145) mmol/L Chloride 91 L (98-107) mmol/L Carbon Dioxide 34 H (22-30) mmol/L BUN 39 H (9-20) mg/dL Creatinine 2.16 H (0.66-1.25) mg/dL Glucose 120 H (74-99) mg/dL POC Glucose (mg/dL) 140 H 126 H (75-99) mg/dL Magnesium 2.5 H (1.6-2.3) mg/dL 07/07/21 Range/Units 07:34 Lymphocytes # (Manual) (1.0-4.8) k/uL PT 18.1 H (9.0-12.0) sec INR 1.8 H (<1.2) Sodium (137-145) mmol/L Chloride (98-107) mmol/L Carbon Dioxide (22-30) mmol/L BUN (9-20) mg/dL Creatinine (0.66-1.25) mg/dL Glucose (74-99) mg/dL POC Glucose (mg/dL) (75-99) mg/dL Magnesium (1.6-2.3) mg/dL Assessment and Plan Plan: Assessment: 1. Acute kidney injury secondary to ATN secondary to hemodynamic instability and component of cardiorenal syndrome. Renal function worsening the last couple of days. Creatinine 2.16 today. No hydronephrosis noted on kidney ultrasound. UA fairly benign. 2. Chronic kidney disease 3a with baseline creatinine near 1.6-2 secondary to solitary right kidney and obstructive uropathy. 3. Status post left nephrectomy. 4. Status post removal of left nephrostomy tube on 06/11/2021. 5. Hyperkalemia secondary to acute kidney injury and enalapril. Resolved. 6. Diabetes mellitus. 7. Volume overload. Improving with diuresis. 8. Hypomagnesemia from poor intake. Replaced. Stable. 9. Orthostatic hypotension. Cardiology following. On midodrine. Cortisol level not low. TSH normal. 10. Urinary retention. Has a Lara catheter. 11. A. fib with RVR on amiodarone and Lopressor. 12. Anemia of chronic kidney disease. Iron deficiency noted - status post IV iron. On aranesp. 13. Chronic chronic diastolic CHF with severe pulmonary hypertension. 14. Status post PEG tube placement due to aspiration. Plan: Maintain oral Lasix - will stop tomorrow if renal function worse. Avoid nephrotoxins. Continue to monitor renal function and urine output.
[2021-07-07 12:09] LABS: Glucose,Whole Blood 122 mg/dL (75-99)
[2021-07-07] MEDS: HYDROmorphone 0.5 MG/0.5 ML SYRINGE IVP PRN (12:17)
--- NOTE | 2021-07-07 13:16 | P.PN ---
Subjective Progress Note Date: 07/07/21 07/07/2021, the patient is on oxygen at 3 L per minute. A repeat chest x-ray was done and essentially showing some persistent bilateral pulmonary infiltrates although there is some improvement in the findings in the right lung base. The patient has some background emphysema. Atelectatic changes are also present lung bases most on the rise. He is afebrile. He is on Augmentin and Diflucan. His bringing up mucus. Is saying most of the time and bed and he doesn't like to sit up as this activity will make his bottoms hurts. As such, he prefers to sleep all the time. Consider the patient mass. Again while receiving enteral feeding. Would suggest switching him from the continuous feeding to a bolus feeding. This will discuss with dietitian. Meanwhile, he remains on Lasix 20 mg twice a day. Fluid balance is still negative and the patient is aching adequate amount of urine output. Overall fluid balance is -2.4 L over the past 24 hours. He is currently on Glucerna as enteral feeding for nutritional support. is at the bedside. Ultimately plan is to discharge this patient [facility]INR today is 1.8 Objective - Vital Signs Vital signs: Vital Signs Temp 97.4 F L 07/07/21 12:15 Pulse 65 07/07/21 12:15 Resp 16 07/07/21 12:15 BP 117/66 07/07/21 12:15 Pulse Ox 92 L 07/07/21 12:15 Intake & Output 07/06/21 07/07/21 07/07/21 18:59 06:59 18:59 Intake Total 810 810 540 Output Total 1450 200 500 Balance -640 610 40 Weight 82.5 kg Intake: Tube Feeding 810 810 540 Output: Urine 1450 200 500 Other: Voiding Method Indwelling Catheter Indwelling Catheter # Voids 1 # Bowel Movements 1 - Exam GENERAL EXAM: Alert, pleasant, chronically ill looking 61-year-old male, sitting up in the recliner, on 3 L of oxygen, with pulse ox of 94 % comfortable in no apparent distress. HEAD: Normocephalic/atraumatic. EYES: Normal reaction of pupils, equal size. Conjunctiva pink, sclera white. NOSE: Clear with pink turbinates. THROAT: No erythema or exudates. NECK: No masses, no JVD, no thyroid enlargement, no adenopathy. CHEST: No chest wall deformity. Symmetrical expansion. LUNGS: Equal air entry with diminished breath sounds and some crackles at the bases CVS: Regular rate and rhythm, normal S1 and S2, no gallops, no murmurs, no rubs ABDOMEN: Soft, nontender. No hepatosplenomegaly, normal bowel sounds, no guarding or rigidity. The PEG tube and the exit site is dry clean and intact. EXTREMITIES: No clubbing, no edema, no cyanosis, 2+ pulses and upper and lower extremities. MUSCULOSKELETAL: Muscle strength and tone normal. SPINE: No scoliosis or deformity SKIN: No rashes CENTRAL NERVOUS SYSTEM: Alert and oriented -3. No focal deficits, tone is normal in all 4 extremities. PSYCHIATRIC: Alert and oriented -3. Appropriate affect. Intact judgment and insight. - Labs CBC & Chem 7: 07/06/21 07:43 07/07/21 07:34 Labs: Abnormal Lab Results - Last 24 Hours (Table) 07/06/21 07/06/21 07/07/21 Range/Units 07:43 16:58 00:15 Lymphocytes # (Manual) 0.90 L (1.0-4.8) k/uL PT (9.0-12.0) sec INR (<1.2) Sodium (137-145) mmol/L Chloride (98-107) mmol/L Carbon Dioxide (22-30) mmol/L BUN (9-20) mg/dL Creatinine (0.66-1.25) mg/dL Glucose (74-99) mg/dL POC Glucose (mg/dL) 116 H 140 H (75-99) mg/dL Magnesium (1.6-2.3) mg/dL 07/07/21 07/07/21 07/07/21 Range/Units 05:56 07:34 07:34 Lymphocytes # (Manual) (1.0-4.8) k/uL PT 18.1 H (9.0-12.0) sec INR 1.8 H (<1.2) Sodium 131 L (137-145) mmol/L Chloride 91 L (98-107) mmol/L Carbon Dioxide 34 H (22-30) mmol/L BUN 39 H (9-20) mg/dL Creatinine 2.16 H (0.66-1.25) mg/dL Glucose 120 H (74-99) mg/dL POC Glucose (mg/dL) 126 H (75-99) mg/dL Magnesium 2.5 H (1.6-2.3) mg/dL 07/07/21 Range/Units 12:08 Lymphocytes # (Manual) (1.0-4.8) k/uL PT (9.0-12.0) sec INR (<1.2) Sodium (137-145) mmol/L Chloride (98-107) mmol/L Carbon Dioxide (22-30) mmol/L BUN (9-20) mg/dL Creatinine (0.66-1.25) mg/dL Glucose (74-99) mg/dL POC Glucose (mg/dL) 122 H (75-99) mg/dL Magnesium (1.6-2.3) mg/dL Assessment and Plan Plan: 1 Status post fall at home or could be related to orthostatic hypotension, possible syncope or possibility of cardiac arrhythmia, considering the patient is having intermittent episodes of A. fib with RVR, current rhythm is sinus and the patient is currently on oral amiodarone at a dose of 400 mg by mouth twice a day and long-term and to coagulation with warfarin. 2 right lower lobe pneumonia with bilateral pleural effusion, consistent with aspiration. Please refer to the noncontrast CAT scan of the chest. The patient is currently on Augmentin and the patient is also on Diflucan for nathan and his sputum grown on multiple occasions. The patient is responding nicely to the treatment. Sputum production is improved and the patient remains on 3 L of oxygen by nasal cannula. For now he is receiving enteral feeding for nutritional support. 3 Dysphagia, patient had malik aspiration during modified barium swallow evaluation and at this time is complete nothing by mouth , post PEG tube placement 4 Chronic atrial fibrillation , currently on long-term and to coagulation with warfarin and the patient's rate is controlled. INR today is subtherapeutic and the patient remains on warfarin and the PT/INR is being adjusted accordingly.the INR from today is at 1.8 5. Hypovolemic hyponatremia, recovered 6. Type 2 diabetes mellitus, currently on Glucerna. 7. History of hypertension 8. History of cerebellar stroke 9. History of 15-[id number]-[id number] smoking 10 chronic kidney failure, creatinine is improving and the creatinine is stable at 2.1, relatively stable 11 history of nephrectomy, Nephrolithiasis with left ureteral obstruction, status post recent removal of nephrostomy recently 12 Abnormal LFTs, improving, asymptomatic Plan: Continue antibiotic coverage with Augmentin and Diflucan. We'll try to set him up as much as possible Aggressive pulmonary toileting and deep coughing and breathing and provide the patient incentive spirometer We'll switch him from continuous tube feeds to bolus feeding and suggest giving the head of the bed elevated at all times at 25-30 Gram stain and culture of the sputum was noted and that shows nathan and diphtheroid species which is probably contaminant CAT scan of chest was noted, consistent with bilateral pleural effusion and right lower lobe pneumonia. The patient is antibiotics and diuretics. Maintain aspiration precautions Continue DuoNeb updrafts Monitor blood sugars monitor LFTs Continue oral Lasix and the patient remains on a negative fluid balance Patient has bilateral pleural effusions. No need for thoracentesis at this point in time. Objective INR the level of between 2 and 3, INR subtherapeutic Monitor renal function, creatinine is at 2.1 Repeat chest x-ray in the morning was noted and the patient has some residual atelectatic changes and infiltration of the lung bases although there is improvement We'll continue to follow, ultimately plan is to discharge this patient to [facility].
--- NOTE | 2021-07-07 13:30 | P.HPADDEND ---
H&P Addendum On 07/07/2021 I had a prolonged meeting with patient Everett Juárez and his in regard to destination after discharge from the hospital and necessary care after discharge Patient is currently receiving physical therapy and occupational therapy, he is receiving feedings via PEG tube Care at home discussed with his in details Initially patient was insisting on going home after discharge from the hospital, however after prolonged discussion he is now agreeable to go to a rehab unit Patient wants to go to rehab in [facility]. mill manager and social work assistant will work on placement for patient Possible discharge the week
--- NOTE | 2021-07-07 16:39 | PN ---
PROGRESS NOTE DATE OF SERVICE: 07/07/2021 REASON FOR FOLLOWUP: Pneumonia. INTERVAL HISTORY: The patient is afebrile. The patient is breathing comfortably. No chest pain. No shortness of breath. No worsening cough. No abdominal pain or diarrhea. PHYSICAL EXAMINATION: Blood pressure 113/66, pulse 65. Temperature of 97.4. He is 92% on 3 L nasal canula. General description is a middle-aged male up in the bed in no distress. Respiratory system: Unlabored breathing, decreased intensity of breath sounds. No wheeze. Heart S1, S2. Regular rate and rhythm. Abdomen soft, no tenderness. LABS: BUN of 59, creatinine is 2.16. DIAGNOSTIC IMPRESSION AND PLAN: Patient with concern for pneumonia, possible aspiration etiology. Tube feeds can be switched over to feeding. Keep the head of the bed elevated. Patient is covered with Augmentin as culture negative for resistant pathogen. Continue supportive care. MMODL / IJN: [id number] /
[2021-07-07] MEDS ORDERED: WARFARIN 2 MG TAB PO ONE (18:00)
[2021-07-07 18:12] LABS: Glucose,Whole Blood 109 mg/dL (75-99)
[2021-07-07 23:28] LABS: Glucose,Whole Blood 107 mg/dL (75-99)
[2021-07-08 06:12] LABS: Glucose,Whole Blood 126 mg/dL (75-99)
[2021-07-08] MEDS: INSULIN ASPART (NovoLOG) 100 UNIT/ML VIAL SQ SCH ×4 (06:16→23:30)
[2021-07-08] MEDS: MIDODRINE 5 MG TAB PO SCH ×3 (06:48→17:15)
[2021-07-08] MEDS: SYMBICORT 160-4.5 MCG INHALER INHALATION SCH ×2 (07:52→19:28)
[2021-07-08] MEDS: IPRATROPIUM-ALBUTEROL 3 ML NEB INHALATION SCH ×4 (07:52→19:32)
--- NOTE | 2021-07-08 09:10 | P.PN ---
Subjective Patient is seen in follow-up for acute kidney injury on chronic kidney disease. Morning labs pending. On oral diuretics. Nonoliguric. No chest pain or shortness of breath. Receiving tube feeds due to aspiration. No changes overnight. Blood pressure stable. Vital signs are stable. General: The patient appeared well nourished and normally developed. HEENT: Head exam is unremarkable. LUNGS: Breath sounds decreased. HEART: Regular rate and rhythm. ABDOMEN: No distention. PEG tube noted. EXTREMITITES: No edema. Objective - Vital Signs Vital signs: Vital Signs Temp 97.8 F 07/08/21 03:00 Pulse 74 07/08/21 03:00 Resp 18 07/08/21 03:00 BP 146/78 07/08/21 06:51 Pulse Ox 95 07/08/21 03:00 Intake & Output 07/07/21 07/08/21 07/08/21 18:59 06:59 18:59 Intake Total 810 810 Output Total 1200 1200 Balance -390 -390 Weight 87.6 kg 68.5 kg Intake: Tube Feeding 810 810 Output: Urine 1200 1200 Other: Voiding Method Indwelling Catheter Indwelling Catheter - Labs CBC & Chem 7: 07/06/21 07:43 07/07/21 07:34 Labs: Abnormal Lab Results - Last 24 Hours (Table) 07/07/21 07/07/21 07/07/21 Range/Units 12:08 18:11 23:27 POC Glucose (mg/dL) 122 H 109 H 107 H (75-99) mg/dL 07/08/21 Range/Units 06:08 POC Glucose (mg/dL) 126 H (75-99) mg/dL Microbiology - Last 24 Hours (Table) 07/03/21 17:48 Gram Stain - Final Sputum Sputum Culture - Final Diphtheroid species Jenae albicans Assessment and Plan Plan: Assessment: 1. Acute kidney injury secondary to ATN secondary to hemodynamic instability and component of cardiorenal syndrome. Renal function worsening the last couple of days. Creatinine 2.16 . yesterday No hydronephrosis noted on kidney ultrasound. UA fairly benign. 2. Chronic kidney disease 3a with baseline creatinine near 1.6-2 secondary to solitary right kidney and obstructive uropathy. 3. Status post left nephrectomy. 4. Status post removal of left nephrostomy tube on 06/11/2021. 5. Hyperkalemia secondary to acute kidney injury and enalapril. Resolved. 6. Diabetes mellitus. 7. Volume overload. Improving with diuresis. 8. Hypomagnesemia from poor intake. Replaced. Stable. 9. Orthostatic hypotension. Cardiology following. On midodrine. Cortisol level not low. TSH normal. 10. Urinary retention. Has a Lara catheter. 11. A. fib with RVR on amiodarone and Lopressor. 12. Anemia of chronic kidney disease. Iron deficiency noted - status post IV iron. On aranesp. 13. Chronic chronic diastolic CHF with severe pulmonary hypertension. 14. Status post PEG tube placement due to aspiration. Plan: Maintain oral Lasix - will stop if renal function worse today. Avoid nephrotoxins. Continue to monitor renal function and urine output.
[2021-07-08 09:17] LABS: INR 2.2 (<1.2); Prothrombin Time 21.3 sec (9.0-12.0)
[2021-07-08 09:31] LABS: Anisocytosis Slight; HCT 33.6 % (39.0-53.0); Hypochromasia Slight; MCH 36.8 pg (25.0-35.0); MCHC 32.8 g/dL (31.0-37.0); MCV 112.2 fL (80.0-100.0); Macrocytosis Marked; Mean Platelet Volume 7.8; Platelet Count 363 k/uL (150-450); Poikilocytosis Slight; RBC 2.99 m/uL (4.30-5.90); RDW 17.5 % (11.5-15.5); WBC 7.8 k/uL (3.8-10.6)
[2021-07-08 09:48] LABS: Albumin 3.2 g/dL (3.5-5.0); Calcium 9.6 mg/dL (8.4-10.2); Magnesium 2.7 mg/dL (1.6-2.3); Total Bilirubin 0.7 mg/dL (0.2-1.3); Total Protein 6.8 g/dL (6.3-8.2)
[2021-07-08] MEDS: HYDROmorphone 0.5 MG/0.5 ML SYRINGE IVP PRN (10:08)
[2021-07-08] MEDS: CYANOCOBALAMIN 500 MCG TAB PO SCH (10:12)
[2021-07-08] MEDS: AMIODARONE 200 MG TAB PO SCH ×2 (10:12→20:38)
[2021-07-08] MEDS: AMOXIC-POT CLAV 200-28.5MG/5ML 100 ML BOTTLE PEG/G-TUBE SCH ×2 (10:12→17:14)
[2021-07-08] MEDS: METOPROLOL TARTRATE 25 MG TAB PO SCH ×3 (10:13→20:38)
[2021-07-08] MEDS: FAMOTIDINE 20 MG TAB PO SCH (10:13)
[2021-07-08] MEDS: FOLIC ACID 1 MG TAB PO SCH (10:13)
[2021-07-08] MEDS: FUROSEMIDE 20 MG TAB PO SCH (10:13)
--- NOTE | 2021-07-08 11:44 | P.PN ---
Subjective Progress Note Date: 07/08/21 07/07/2021, the patient is on oxygen at 3 L per minute. A repeat chest x-ray was done and essentially showing some persistent bilateral pulmonary infiltrates although there is some improvement in the findings in the right lung base. The patient has some background emphysema. Atelectatic changes are also present lung bases most on the rise. He is afebrile. He is on Augmentin and Diflucan. His bringing up mucus. Is saying most of the time and bed and he doesn't like to sit up as this activity will make his bottoms hurts. As such, he prefers to sleep all the time. Consider the patient mass. Again while receiving enteral feeding. Would suggest switching him from the continuous feeding to a bolus feeding. This will discuss with dietitian. Meanwhile, he remains on Lasix 20 mg twice a day. Fluid balance is still negative and the patient is aching adequate amount of urine output. Overall fluid balance is -2.4 L over the past 24 hours. He is currently on Glucerna as enteral feeding for nutritional support. is at the bedside. Ultimately plan is to discharge this patient to [facility] he remains weak. He has a good cough..INR today is 1.8keep it with his platelet 07/08/2021, the patient remains on 3 L of oxygen by nasal cannula. INR therapeutic at 2.2. He is on warfarin. His BUN is at 41 with a creatinine of 2.2 and is essentially stable compared to yesterday. No other electrodes abnormalities. Potassium level is at 5.0 with a sodium level of 134. He yasemin nues to make excellent urine output and he has been in negative fluid balance over the past 24 hours. He is receiving enteral feeding for nutritional support. He is not having any aspiration. He remains on Augmentin. He is on a Lasix 20 mg by mouth twice a day. He is also receiving DuoNeb nebulized treatments around the clock. Cough and congestion is improved significantly. The plan is to discharge this patient ultimately to [facility] - Vital Signs Vital signs: Vital Signs Temp 97.8 F 07/08/21 07:50 Pulse 64 07/08/21 07:50 Resp 18 07/08/21 07:50 BP 133/72 07/08/21 07:50 Pulse Ox 93 L 07/08/21 07:50 Intake & Output 07/07/21 07/08/21 07/08/21 18:59 06:59 18:59 Intake Total 810 810 Output Total 1200 1200 Balance -390 -390 Weight 87.6 kg 68.5 kg 68.5 kg Intake: Tube Feeding 810 810 Output: Urine 1200 1200 Other: Voiding Method Indwelling Catheter Indwelling Catheter - Exam GENERAL EXAM: Alert, pleasant, chronically ill looking 61-year-old male, sitting up in the recliner, on 3 L of oxygen, with pulse ox of 94 % comfortable in no apparent distress. HEAD: Normocephalic/atraumatic. EYES: Normal reaction of pupils, equal size. Conjunctiva pink, sclera white. NOSE: Clear with pink turbinates. THROAT: No erythema or exudates. NECK: No masses, no JVD, no thyroid enlargement, no adenopathy. CHEST: No chest wall deformity. Symmetrical expansion. LUNGS: Equal air entry with diminished breath sounds and some crackles at the bases CVS: Regular rate and rhythm, normal S1 and S2, no gallops, no murmurs, no rubs ABDOMEN: Soft, nontender. No hepatosplenomegaly, normal bowel sounds, no guarding or rigidity. The PEG tube and the exit site is dry clean and intact. EXTREMITIES: No clubbing, no edema, no cyanosis, 2+ pulses and upper and lower extremities. MUSCULOSKELETAL: Muscle strength and tone normal. SPINE: No scoliosis or deformity SKIN: No rashes CENTRAL NERVOUS SYSTEM: Alert and oriented -3. No focal deficits, tone is normal in all 4 extremities. PSYCHIATRIC: Alert and oriented -3. Appropriate affect. Intact judgment and insight. - Labs CBC & Chem 7: 07/08/21 08:29 07/08/21 08:29 Labs: Abnormal Lab Results - Last 24 Hours (Table) 07/07/21 07/07/21 07/07/21 Range/Units 12:08 18:11 23:27 RBC (4.30-5.90) m/uL Hgb (13.0-17.5) gm/dL Hct (39.0-53.0) % MCV (80.0-100.0) fL MCH (25.0-35.0) pg RDW (11.5-15.5) % Macrocytosis PT (9.0-12.0) sec INR (<1.2) Sodium (137-145) mmol/L Chloride (98-107) mmol/L Carbon Dioxide (22-30) mmol/L BUN (9-20) mg/dL Creatinine (0.66-1.25) mg/dL Glucose (74-99) mg/dL POC Glucose (mg/dL) 122 H 109 H 107 H (75-99) mg/dL Magnesium (1.6-2.3) mg/dL ALT (4-49) U/L Alkaline Phosphatase (38-126) U/L Albumin (3.5-5.0) g/dL 07/08/21 07/08/21 07/08/21 Range/Units 06:08 08:29 08:29 RBC 2.99 L (4.30-5.90) m/uL Hgb 11.0 L (13.0-17.5) gm/dL Hct 33.6 L (39.0-53.0) % MCV 112.2 H (80.0-100.0) fL MCH 36.8 H (25.0-35.0) pg RDW 17.5 H (11.5-15.5) % Macrocytosis Marked A PT (9.0-12.0) sec INR (<1.2) Sodium 134 L (137-145) mmol/L Chloride 91 L (98-107) mmol/L Carbon Dioxide 33 H (22-30) mmol/L BUN 41 H (9-20) mg/dL Creatinine 2.29 H (0.66-1.25) mg/dL Glucose 112 H (74-99) mg/dL POC Glucose (mg/dL) 126 H (75-99) mg/dL Magnesium 2.7 H (1.6-2.3) mg/dL ALT 103 H (4-49) U/L Alkaline Phosphatase 129 H (38-126) U/L Albumin 3.2 L (3.5-5.0) g/dL 07/08/21 Range/Units 08:29 RBC (4.30-5.90) m/uL Hgb (13.0-17.5) gm/dL Hct (39.0-53.0) % MCV (80.0-100.0) fL MCH (25.0-35.0) pg RDW (11.5-15.5) % Macrocytosis PT 21.3 H (9.0-12.0) sec INR 2.2 H (<1.2) Sodium (137-145) mmol/L Chloride (98-107) mmol/L Carbon Dioxide (22-30) mmol/L BUN (9-20) mg/dL Creatinine (0.66-1.25) mg/dL Glucose (74-99) mg/dL POC Glucose (mg/dL) (75-99) mg/dL Magnesium (1.6-2.3) mg/dL ALT (4-49) U/L Alkaline Phosphatase (38-126) U/L Albumin (3.5-5.0) g/dL Microbiology - Last 24 Hours (Table) 07/03/21 17:48 Gram Stain - Final Sputum Sputum Culture - Final Diphtheroid species Jenae albicans Assessment and Plan Plan: 1 Status post fall at home or could be related to orthostatic hypotension, possible syncope or possibility of cardiac arrhythmia, considering the patient is having intermittent episodes of A. fib with RVR, current rhythm is sinus and the patient is currently on oral amiodarone at a dose of 400 mg by mouth twice a day and long-term and to coagulation with warfarin. 2 right lower lobe pneumonia with bilateral pleural effusion, consistent with aspiration. Please refer to the noncontrast CAT scan of the chest. The patient is currently on Augmentin and the patient is also on Diflucan for jenae and his sputum grown on multiple occasions. The patient is responding nicely to the treatment. Sputum production is improved and the patient remains on 3 L of oxygen by nasal cannula. For now he is receiving enteral feeding for nutritional support. 3 Dysphagia, patient had malik aspiration during modified barium swallow evaluation and at this time is complete nothing by mouth , post PEG tube placement 4 Chronic atrial fibrillation , currently on long-term and to coagulation with warfarin and the patient's rate is controlled. INR today is subtherapeutic and the patient remains on warfarin and the PT/INR is being adjusted accordingly.the INR from today is at therapeutic 5. Hypovolemic hyponatremia, recovered 6. Type 2 diabetes mellitus, currently on Glucerna. 7. History of hypertension 8. History of cerebellar stroke 9. History of [id number] smoking 10 chronic kidney failure, creatinine is improving and the creatinine is stable at 2.2, relatively stable, still on oral Lasix 11 history of nephrectomy, Nephrolithiasis with left ureteral obstruction, status post recent removal of nephrostomy recently 12 Abnormal LFTs, improving, asymptomatic Plan: Continue antibiotic coverage with Augmentin and Diflucan. Clinically improved Aggressive pulmonary toileting and the cough and use of incentive spirometer INR therapeutic Continue Lasix and the patient is medically diuresed Renal function is stable Chest x-ray findings are showing improvement in the lung bases with some residual atelectatic changes Discharge planning is in progress and the patient is being considered for [facility] for further rehabilitation
[2021-07-08 12:02] LABS: Glucose,Whole Blood 133 mg/dL (75-99)
[2021-07-08] MEDS: FLUCONAZOLE ORAL SUSP 1,400 MG/35 ML BOTTLE PO SCH (12:25)
[2021-07-08] MEDS: VENLAFAXINE HCL 75 MG TAB PO SCH ×2 (12:26→20:38)
[2021-07-08 12:57] LABS: Band Neutrophils % 1 %; Eosinophils # (M) 0.16 k/uL (0-0.7); Lymphocytes # (M) 0.86 k/uL (1.0-4.8); Monocytes # (M) 0.94 k/uL (0-1.0); Myelocytes # (M) 0.08 k/uL (0); Myelocytes % 1 %; Neutrophils % (M) 74 %; Nucleated Red Blood Cells 0 /100 WBC (0-0); Total Cells Counted 200
--- NOTE | 2021-07-08 13:23 | P.PN ---
Subjective Progress Note Date: 07/08/21 Everett Juárez, is a 61-year-old male patient of Dr. Jama, who presented to [facility] emergency room after sustaining a fall, and complaining of generalized weakness and dizziness, patient is not clear whether he passed out or had any loss of consciousness. Patient was also complaining of chest pain in the EMS, EKG was within normal limits and troponin level was less than 0.01 He was evaluated in the emergency room vital examination on presentation revealed a temperature of 97.4 pulse 71 respirations 16 blood pressure 87/50 pulse ox 94% on room air Laboratory data revealed a white blood count of 8.6 hemoglobin 12.0 platelet count 338 INR 1.2 sodium 128 potassium 6.2 chloride 99 CO2 22 BUN 17 creatinine 2.01 lactic acid on presentation 2.1 urine analysis did not reveal evidence of significant infection. Testing in the emergency room revealed EKG revealed normal sinus rhythm normal EKG chest x-ray done in the emergency room revealed no acute lung disease there was prominent pulmonary leon that could be related to adenopathy. 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 Patient was admitted to medical floor for further evaluation and treatment. Past medical history is significant for history of hypertension, history of hyperlipidemia, history of chronic kidney disease, history of [id number] diabetes mellitus, history of previous stroke, history of paroxysmal atrial fibrillation maintained on Coumadin, history of COPD, patient still smoke a few cigarettes per day, he denies alcohol use. On review of systems Patient is alert and responsive in no distress, he denies any complaints there is no fever or chills no headache or dizziness no chest pain no shortness of breath no palpitation no cough no nausea or vomiting no abdominal pain no diarrhea no blood in the stools no burning with urination no frequency or urgency and no hematuria, there is no weakness or numbness in any of the extremities no change in vision speech, gait was not tested. On 06/16/2021 patient was seen and examined on the telemetry floor he is alert and oriented 3 in no apparent distress he is still complaining of dizziness and weakness otherwise he denies any complaints there is no fever or chills no headache no chest pain no shortness of breath no cough no palpitation no nausea or vomiting no abdominal pain no diarrhea no blood in the stools no burning with urination no frequency or urgency and no hematuria there is no weakness or numbness in any of the extremities no change in vision or in speech On 06/17/2021 Patient was seen and examined on the medical floor, he is alert and oriented x 3 in no distress, he denies any complaints there is no fever or chills no headache or dizziness no chest pain no shortness of breath no palpitation no cough no nausea or vomiting no abdominal pain no diarrhea no blood in the stools no burning with urination no frequency or urgency and no hematuria, there is no weakness or numbness in any of the extremities no change in vision or speech, gait was not tested at this time, patient had significant orthostatic hypotension, this was discussed with cardiology, and dose of Catapres was adjusted down to 0.1 mg by mouth twice a day, patient will be reevaluated by cardiology in a.m. On 06/18/2021 patient was seen and examined on the medical floor, he is alert and oriented 3 in no distress, he is complaining of weakness otherwise he denies any specific complaints, there is no fever or chills no headache or dizziness no chest pain no shortness of breath no cough no nausea or vomiting no abdominal pain no diarrhea no blood in the stools no burning with urination no frequency or urgency no hematuria, there is no weakness or numbness in any of the extremities there is no change in vision speech or gait. Repeat orthostatic hypotension reveals significant drop while standing, cardiology are following, yesterday dose of Catapres was decreased to 0.1 by mouth twice daily, awaiting further recommendation from cardiology On 06/19/2021 patient was seen and examined on the medical floor, he is alert and oriented 3 in no distress, he is complaining of weakness otherwise he denies any specific complaints, he is still having significant orthostatic hypotension was significant drop in blood pressure when patient stands up. the re is no fever or chills no headache or dizziness no chest pain no shortness of breath no cough no nausea or vomiting no abdominal pain no diarrhea no blood in the stools no burning with urination no frequency or urgency no hematuria, there is no weakness or numbness in any of the extremities there is no change in vision speech or gait. Cardiology are following at this time Catapres is being discontinued and midodrine was added to medication regimen will continue to monitor closely. On 06/20/2021 patient was seen and examined on the medical floor he is alert and oriented 3 in no apparent distress, this morning he had an episode of palpitation and severe shortness of breath, EKG revealed SVT versus A. fib with RVR with a heart rate of 186 patient was transferred to [facility]. he was seen by [facility] rdiology and was started on IV amiodarone, chest x-ray was done today and was suspicious for right sided infiltrate suggestive of pneumonia patient is stating that he is having some cough with yellow sputum production WBC is low, patient was started on IV antibiotic Zosyn, and pulmonary consultation was requested. Patient denies any fever or chills no headache or dizziness no chest pain no nausea or vomiting no abdominal pain no diarrhea and no urinary symptoms. On 06/21/2021 patient was seen and examined on the medical floor he is complaining of cough otherwise he denies any complaints at this time there is no fever or chills no headache or dizziness no chest pain no shortness of breath no nausea or vomiting no abdominal pain no diarrhea no blood in the stools no burning with urination no frequency or urgency and no hematuria, yesterday patient had an episode of A. fib with RVR, he was started on IV amiodarone by cardiology and was transferred to telemetry floor, also chest x-ray revealed evidence of right basilar infiltrate, he was started on IV Zosyn pulmonary consultation was requested, sputum culture was ordered On 06/22/2021 Patient was seen and examined on the medical floor, he is alert and oriented x 3 in no distress, he is complaining of cough otherwise he denies any complaints there is no fever or chills no headache or dizziness no chest pain no shortness of breath no palpitation no cough no nausea or vomiting no abdominal pain no diarrhea no blood in the stools no burning with urination no frequency or urgency and no hematuria, there is no weakness or numbness in any of the extremities no change in vision speech or gait. Patient failed swallow evaluation with all food consistency today, he is kept nothing by mouth consultation for Dr. Zacarias for PEG tube placement was initiated. On 06/23/2021 patient is alert and oriented 3. Patient is resting comfortably in bed. Patient currently maintained on amiodarone drip per cardiology. Patient also maintained on IV Zosyn for aspiration pneumonia. Surgical services have been consulted for PEG tube placement. At this time pulmonary, cardiology, nephrology and surgical services following. Repeat labs have been ordered. Patient is still complaining of chest congestion and cough. Patient denies chest pain. Patient denies nausea vomiting or diarrhea. Patient denies any urinary burning or frequency. On 06/24/2021 Patient was seen and examined on the medical floor, he is alert and oriented x 3 in no distress, he denies any complaints there is no fever or chills no headache or dizziness no chest pain no shortness of breath no palpitation no cough no nausea or vomiting no abdominal pain no diarrhea no blood in the stools no burning with urination no frequency or urgency and no hematuria, there is no weakness or numbness in any of the extremities no change in vision speech, today INR is 5.3 Coumadin is on hold Will give 1 dose of vitamin K 2 mg IV patient is nothing by mouth , he is awaiting PEG tube placement On 06/24/2021 patient is alert and oriented 3 INR 1.2. Patient maintained on IV amiodarone. Tentative plans for PEG tube placement tomorrow per surgical services. . At this time patient remains with productive cough. Patient denies chest pain. Patient denies nausea vomiting or diarrhea. Patient denies any urinary burning or frequency On 06/26/2021 Patient was seen and examined on the medical floor, he is alert and oriented x 3 in no distress, he denies any complaints there is no fever or chills no headache or dizziness no chest pain no shortness of breath no palp itation no cough no nausea or vomiting no abdominal pain no diarrhea no blood in the stools no burning with urination no frequency or urgency and no hematuria, there is no weakness or numbness in any of the extremities no change in vision speech, patient received vitamin K his INR is low we are awaiting PEG tube placement On 06/27/2021 Patient was seen and examined on the medical floor, he is alert and oriented x 3 in no distress, he denies any complaints there is no fever or chills no headache or dizziness no chest pain no shortness of breath no palpitation no cough no nausea or vomiting no abdominal pain no diarrhea no blood in the stools no burning with urination no frequency or urgency and no hematuria, there is no weakness or numbness in any of the extremities no change in vision speech, Patient underwent PEG tube placement and was started on PEG tube feeding, will continue to follow closely will recheck chest x-ray in a.m. On 06/28/2021 patient alert and oriented 3. Repeat chest x-ray showing worsening interstitial edema with superimposed infiltrates versus atelectasis. Small pleural effusion. We'll reconsult pulmonary services. Patient remains on IV Zosyn. Patient does have PEG tube in place tube feeds running. At this time patient denies chest pain. Patient does report occasional cough with sputum production. Patient denies nausea vomiting or diarrhea. Patient denies any urinary burning or frequency. On 06/29/2021 patient was seen and examined on the telemetry floor, he is alert and oriented 3 in no distress, he is still complaining of shortness of breath and occasional cough, his chest x-ray done yesterday reveals worsening of the pulmonary infiltrate, he is still maintained on IV Zosyn, and is maintained on oxygen at 5 L via nasal cannula, pulmonary consultation was resubmitted yesterday for reevaluation and further advice regarding antibiotic treatment and further management of his pulmonary consultation, at this time patient is not ready yet for discharge to a rehab center, otherwise he denies any complaints there is no fever or chills no chest pain no nausea or vomiting no abdominal pain no diarrhea no blood in the stools and no urinary symptoms PEG tube site is clear. 06/30/2021 patient alert and oriented 3. Patient still having significant sputum production. Will order repeat sputum sample consults infectious disease services. Patient's liver enzymes also significantly elevated. Lipitor DC'd. Liver ultrasound will be ordered. Patient denies chest pain. Patient denies nausea vomiting or diarrhea. Patient denies any urinary burning or frequency On 07/01/2021 Patient was seen and examined on the medical floor, he is alert and oriented x 3 in no distress, he denies any complaints there is no fever or chills no headache or dizziness no chest pain no shortness of breath no palpitation no cough no nausea or vomiting no abdominal pain no diarrhea no blood in the stools no burning with urination no frequency or urgency and no hematuria, there is no weakness or numbness in any of the extremities no change in vision speech. Liver enzymes are quite elevated but are improving gradually, Lipitor was discontinued and Tylenol was discontinued, will continue to monitor On 07/02/2021 Patient is alert and oriented x 3 in no distress, he denies any complaints there is no fever or chills no headache or dizziness no chest pain no shortness of breath no palpitation no cough no nausea or vomiting no abdominal pain no diarrhea no blood in the stools no burning with urination no frequency or urgency and no hematuria, there is no weakness or numbness in any of the extremities no change in vision speech. Liver enzymes are quite elevated but are improving gradually, Lipitor was discontinued and Tylenol was discontinued, will continue to monitor, kidney function remains slightly elevated. On 07/03/2021 Patient was seen and examined on the medical floor, he is alert and oriented x 3 in no distress, he denies any complaints there is no fever or chills no headache or dizziness no chest pain no shortness of breath no palpitation no cough no nausea or vomiting no abdominal pain no diarrhea no blood in the stools no burning with urination no frequency or urgency and no hematuria, there is no weakness or numbness in any of the extremities no change in vision speech or gait. At this time liver enzymes are improving gradually will continue to monitor closely patient lost his IV access, will proceed with midline placement in a.m. on 07/05/2021 patient is alert and oriented 3. Chest CT completed showing bi lateral pleural effusions with right lower lobe infiltrate as well as patchy areas of infiltrate in the right upper lobe. Pulmonary and infectious disease services are following. Patient remains on Augmentin and Diflucan. Patient also maintained on IV Lasix. At this time patient denies chest pain. Patient denies nausea vomiting or diarrhea. Patient denies any urinary burning or frequency On 07/07/2021 patient is alert and oriented 3. Creatinine increasing to 2.16 and bun 39. Will add 250 mL of free water every 6 hours. Repeat chest x-ray ordered per pulmonary. Patient remains on Lasix. Pulmonary nephrology infectious disease service is following. At this time patient denies chest pain or shortness breath. Patient denies nausea vomiting or diarrhea. Patient denies any urinary burning or frequency On 07/08/2021 patient was seen and examined on the medical floor he is alert and oriented 3 in no apparent distress there is no fever or chills no headache or dizziness no chest pain no shortness of breath no cough no nausea or vomiting no abdominal pain no diarrhea no blood in the stools no burning with urination no frequency or urgency and no hematuria. He is receiving tube feeding via PEG tube, he is receiving physical therapy, possible transfer to a rehab unit early next week. Objective - Vital Signs Vital signs: Vital Signs Temp 97.8 F 07/08/21 03:00 Pulse 74 07/08/21 03:00 Resp 18 07/08/21 03:00 BP 146/78 07/08/21 06:51 Pulse Ox 95 07/08/21 03:00 Intake & Output 07/07/21 07/08/21 07/08/21 18:59 06:59 18:59 Intake Total 810 810 Output Total 1200 1200 Balance -390 -390 Weight 87.6 kg 68.5 kg Intake: Tube Feeding 810 810 Output: Urine 1200 1200 Other: Voiding Method Indwelling Catheter Indwelling Catheter - Exam In general patient is alert and responsive in no distress HEENT head normocephalic and atraumatic Neck is supple no JVD no goiter no lymphadenopathy no carotid bruit Chest examination is clear to auscultation no crackles no wheezing Cardiac exam reveals regular heart sounds S1 and S2 no gallops no murmurs Abdomen is soft nontender no organomegaly with normal bowel sounds Extremity exam reveals no edema no cyanosis or clubbing Neurological examination reveals no gross focal deficits - Labs CBC & Chem 7: 07/08/21 08:29 07/08/21 08:29 Labs: Abnormal Lab Results - Last 24 Hours (Table) 07/07/21 07/07/21 07/07/21 Range/Units 12:08 18:11 23:27 PT (9.0-12.0) sec INR (<1.2) POC Glucose (mg/dL) 122 H 109 H 107 H (75-99) mg/dL 07/08/21 07/08/21 Range/Units 06:08 08:29 PT 21.3 H (9.0-12.0) sec INR 2.2 H (<1.2) POC Glucose (mg/dL) 126 H (75-99) mg/dL Microbiology - Last 24 Hours (Table) 07/03/21 17:48 Gram Stain - Final Sputum Sputum Culture - Final Diphtheroid species Jenae albicans Assessment and Plan Plan: Fall at home with unclear history whether patient had a syncopal episode or loss of consciousness Episode of chest pain while in the ambulance Atrial fibrillation with rapid ventricular response. Patient started on amiodarone drip per cardiology. Patient transitioned to by mouth amiodarone Underlying history of paroxysmal atrial fibrillation, maintained on Coumadin. Evidence of dehydration with electrolyte imbalance with hyponatremia and hyperkalemia. resolved Underlying history of chronic kidney disease Underlying history of phw-[id number] diabetes mellitus, no evidence of hypoglycemia Underlying history of hypertension Previous history of cerebellar stroke. Right basilar infiltrate suggestive of pneumonia, patient started on IV Zosyn. infectious disease and pulmonary service is followingpatient transitioned to Diflucan and oral Augmentin Dysphagia. PEG tube placement per Dr. ordonez Elevated liver enzymes. Lipitor DC'd. numbers improving DVT prophylaxis Coumadin. GI prophylaxis Pepcid Pulmonary, cardiology, nephrology and surgical services following maintaine on Augmentin and Diflucan s/p peg tube placement Repeat labs ordered PT OT services consulted Social work consulted for possible ECF placement Pulmonary services reconsulted for worsening chest x-ray Infectious disease consulted for worsening pneumonia
[2021-07-08] MEDS ORDERED: WARFARIN 3 MG TAB PO ONE (18:00)
[2021-07-08 18:02] LABS: Glucose,Whole Blood 118 mg/dL (75-99)
--- NOTE | 2021-07-08 18:21 | PN ---
PROGRESS NOTE DATE OF SERVICE: 07/08/2021 REASON FOR FOLLOWUP: Pneumonia. INTERVAL HISTORY: The patient is afebrile. The patient is currently breathing comfortably. The patient is hemodynamically stable, currently on 2 L nasal cannula. Denies any chest pain, shortness of breath or any worsening cough and no diarrhea. PHYSICAL EXAMINATION: Blood pressure 146/75, pulse of 66, temperature 98. He is 97% on 2 L nasal cannula. GENERAL DESCRIPTION: General description is a middle-aged male up in the bed in no distress. RESPIRATORY SYSTEM: Unlabored breathing. Decreased breath sounds at the bases. No wheeze. HEART: S1, S2. Regular rate and rhythm. ABDOMEN: Soft. No tenderness. LABS: Hemoglobin is 11, white count 7.3, BUN of 41, creatinine is 2.29. DIAGNOSTIC IMPRESSION AND PLAN: Patient with pneumonia, possible aspiration etiology. Sputum has been Jenae patient is covered with Augmentin. Continue for another few days to finish course of therapy. Continue supportive care. MMODL / IJN: [id number] /
[2021-07-08 23:27] LABS: Glucose,Whole Blood 123 mg/dL (75-99)
[2021-07-09] MEDS: INSULIN ASPART (NovoLOG) 100 UNIT/ML VIAL SQ SCH ×3 (00:01→17:34)
[2021-07-09] MEDS: AMOXIC-POT CLAV 200-28.5MG/5ML 100 ML BOTTLE PEG/G-TUBE SCH ×3 (00:08→16:53)
[2021-07-09 05:52] LABS: Glucose,Whole Blood 137 mg/dL (75-99)
[2021-07-09] MEDS: AMIODARONE 200 MG TAB PO SCH ×2 (07:01→21:17)
[2021-07-09] MEDS: CYANOCOBALAMIN 500 MCG TAB PO SCH (07:01)
[2021-07-09] MEDS: MIDODRINE 5 MG TAB PO SCH ×3 (07:01→16:53)
[2021-07-09] MEDS: FOLIC ACID 1 MG TAB PO SCH (07:01)
[2021-07-09] MEDS: METOPROLOL TARTRATE 25 MG TAB PO SCH ×3 (07:01→21:17)
[2021-07-09] MEDS: FAMOTIDINE 20 MG TAB PO SCH (07:01)
[2021-07-09] MEDS: FLUCONAZOLE ORAL SUSP 1,400 MG/35 ML BOTTLE PO SCH (07:02)
[2021-07-09 07:10] LABS: INR 2.5 (<1.2); Prothrombin Time 24.4 sec (9.0-12.0)
[2021-07-09 07:58] LABS: Calcium 9.9 mg/dL (8.4-10.2); Magnesium 2.9 mg/dL (1.6-2.3); Potassium 5.5 mmol/L (3.5-5.1)
[2021-07-09] MEDS: VENLAFAXINE HCL 75 MG TAB PO SCH ×2 (08:25→21:20)
[2021-07-09] MEDS: SYMBICORT 160-4.5 MCG INHALER INHALATION SCH ×2 (09:11→19:11)
[2021-07-09] MEDS: IPRATROPIUM-ALBUTEROL 3 ML NEB INHALATION SCH ×4 (09:11→19:11)
--- NOTE | 2021-07-09 10:04 | P.PN ---
Subjective Progress Note Date: 07/09/21 Everett Juárez, is a 61-year-old male patient of Dr. Jama, who presented to [facility] emergency room after sustaining a fall, and complaining of generalized weakness and dizziness, patient is not clear whether he passed out or had any loss of consciousness. Patient was also complaining of chest pain in the EMS, EKG was within normal limits and troponin level was less than 0.01 He was evaluated in the emergency room vital examination on presentation revealed a temperature of 97.4 pulse 71 respirations 16 blood pressure 87/50 pulse ox 94% on room air Laboratory data revealed a white blood count of 8.6 hemoglobin 12.0 platelet count 338 INR 1.2 sodium 128 potassium 6.2 chloride 99 CO2 22 BUN 17 creatinine 2.01 lactic acid on presentation 2.1 urine analysis did not reveal evidence of significant infection. Testing in the emergency room revealed EKG revealed normal sinus rhythm normal EKG chest x-ray done in the emergency room revealed no acute lung disease there was prominent pulmonary leon that could be related to adenopathy. 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 Patient was admitted to medical floor for further evaluation and treatment. Past medical history is significant for history of hypertension, history of hyperlipidemia, history of chronic kidney disease, history of [id number] diabetes mellitus, history of previous stroke, history of paroxysmal atrial fibrillation maintained on Coumadin, history of COPD, patient still smoke a few cigarettes per day, he denies alcohol use. On review of systems Patient is alert and responsive in no distress, he denies any complaints there is no fever or chills no headache or dizziness no chest pain no shortness of breath no palpitation no cough no nausea or vomiting no abdominal pain no diarrhea no blood in the stools no burning with urination no frequency or urgency and no hematuria, there is no weakness or numbness in any of the extremities no change in vision speech, gait was not tested. On 06/16/2021 patient was seen and examined on the telemetry floor he is alert and oriented 3 in no apparent distress he is still complaining of dizziness and weakness otherwise he denies any complaints there is no fever or chills no headache no chest pain no shortness of breath no cough no palpitation no nausea or vomiting no abdominal pain no diarrhea no blood in the stools no burning with urination no frequency or urgency and no hematuria there is no weakness or numbness in any of the extremities no change in vision or in speech On 06/17/2021 Patient was seen and examined on the medical floor, he is alert and oriented x 3 in no distress, he denies any complaints there is no fever or chills no headache or dizziness no chest pain no shortness of breath no palpitation no cough no nausea or vomiting no abdominal pain no diarrhea no blood in the stools no burning with urination no frequency or urgency and no hematuria, there is no weakness or numbness in any of the extremities no change in vision or speech, gait was not tested at this time, patient had significant orthostatic hypotension, this was discussed with cardiology, and dose of Catapres was adjusted down to 0.1 mg by mouth twice a day, patient will be reevaluated by cardiology in a.m. On 06/18/2021 patient was seen and examined on the medical floor, he is alert and oriented 3 in no distress, he is complaining of weakness otherwise he denies any specific complaints, there is no fever or chills no headache or dizziness no chest pain no shortness of breath no cough no nausea or vomiting no abdominal pain no diarrhea no blood in the stools no burning with urination no frequency or urgency no hematuria, there is no weakness or numbness in any of the extremities there is no change in vision speech or gait. Repeat orthostatic hypotension reveals significant drop while standing, cardiology are following, yesterday dose of Catapres was decreased to 0.1 by mouth twice daily, awaiting further recommendation from cardiology On 06/19/2021 patient was seen and examined on the medical floor, he is alert and oriented 3 in no distress, he is complaining of weakness otherwise he denies any specific complaints, he is still having significant orthostatic hypotension was significant drop in blood pressure when patient stands up. the re is no fever or chills no headache or dizziness no chest pain no shortness of breath no cough no nausea or vomiting no abdominal pain no diarrhea no blood in the stools no burning with urination no frequency or urgency no hematuria, there is no weakness or numbness in any of the extremities there is no change in vision speech or gait. Cardiology are following at this time Catapres is being discontinued and midodrine was added to medication regimen will continue to monitor closely. On 06/20/2021 patient was seen and examined on the medical floor he is alert and oriented 3 in no apparent distress, this morning he had an episode of palpitation and severe shortness of breath, EKG revealed SVT versus A. fib with RVR with a heart rate of 186 patient was transferred to [facility]. he was seen by ca rdiology and was started on IV amiodarone, chest x-ray was done today and was suspicious for right sided infiltrate suggestive of pneumonia patient is stating that he is having some cough with yellow sputum production WBC is low, patient was started on IV antibiotic Zosyn, and pulmonary consultation was requested. Patient denies any fever or chills no headache or dizziness no chest pain no nausea or vomiting no abdominal pain no diarrhea and no urinary symptoms. On 06/21/2021 patient was seen and examined on the medical floor he is complaining of cough otherwise he denies any complaints at this time there is no fever or chills no headache or dizziness no chest pain no shortness of breath no nausea or vomiting no abdominal pain no diarrhea no blood in the stools no burning with urination no frequency or urgency and no hematuria, yesterday patient had an episode of A. fib with RVR, he was started on IV amiodarone by cardiology and was transferred to telemetry floor, also chest x-ray revealed evidence of right basilar infiltrate, he was started on IV Zosyn pulmonary consultation was requested, sputum culture was ordered On 06/22/2021 Patient was seen and examined on the medical floor, he is alert and oriented x 3 in no distress, he is complaining of cough otherwise he denies any complaints there is no fever or chills no headache or dizziness no chest pain no shortness of breath no palpitation no cough no nausea or vomiting no abdominal pain no diarrhea no blood in the stools no burning with urination no frequency or urgency and no hematuria, there is no weakness or numbness in any of the extremities no change in vision speech or gait. Patient failed swallow evaluation with all food consistency today, he is kept nothing by mouth consultation for Dr. Zacarias for PEG tube placement was initiated. On 06/23/2021 patient is alert and oriented 3. Patient is resting comfortably in bed. Patient currently maintained on amiodarone drip per cardiology. Patient also maintained on IV Zosyn for aspiration pneumonia. Surgical services have been consulted for PEG tube placement. At this time pulmonary, cardiology, nephrology and surgical services following. Repeat labs have been ordered. Patient is still complaining of chest congestion and cough. Patient denies chest pain. Patient denies nausea vomiting or diarrhea. Patient denies any urinary burning or frequency. On 06/24/2021 Patient was seen and examined on the medical floor, he is alert and oriented x 3 in no distress, he denies any complaints there is no fever or chills no headache or dizziness no chest pain no shortness of breath no palpitation no cough no nausea or vomiting no abdominal pain no diarrhea no blood in the stools no burning with urination no frequency or urgency and no hematuria, there is no weakness or numbness in any of the extremities no change in vision speech, today INR is 5.3 Coumadin is on hold Will give 1 dose of vitamin K 2 mg IV patient is nothing by mouth , he is awaiting PEG tube placement On 06/24/2021 patient is alert and oriented 3 INR 1.2. Patient maintained on IV amiodarone. Tentative plans for PEG tube placement tomorrow per surgical services. . At this time patient remains with productive cough. Patient denies chest pain. Patient denies nausea vomiting or diarrhea. Patient denies any urinary burning or frequency On 06/26/2021 Patient was seen and examined on the medical floor, he is alert and oriented x 3 in no distress, he denies any complaints there is no fever or chills no headache or dizziness no chest pain no shortness of breath no palp itation no cough no nausea or vomiting no abdominal pain no diarrhea no blood in the stools no burning with urination no frequency or urgency and no hematuria, there is no weakness or numbness in any of the extremities no change in vision speech, patient received vitamin K his INR is low we are awaiting PEG tube placement On 06/27/2021 Patient was seen and examined on the medical floor, he is alert and oriented x 3 in no distress, he denies any complaints there is no fever or chills no headache or dizziness no chest pain no shortness of breath no palpitation no cough no nausea or vomiting no abdominal pain no diarrhea no blood in the stools no burning with urination no frequency or urgency and no hematuria, there is no weakness or numbness in any of the extremities no change in vision speech, Patient underwent PEG tube placement and was started on PEG tube feeding, will continue to follow closely will recheck chest x-ray in a.m. On 06/28/2021 patient alert and oriented 3. Repeat chest x-ray showing worsening interstitial edema with superimposed infiltrates versus atelectasis. Small pleural effusion. We'll reconsult pulmonary services. Patient remains on IV Zosyn. Patient does have PEG tube in place tube feeds running. At this time patient denies chest pain. Patient does report occasional cough with sputum production. Patient denies nausea vomiting or diarrhea. Patient denies any urinary burning or frequency. On 06/29/2021 patient was seen and examined on the telemetry floor, he is alert and oriented 3 in no distress, he is still complaining of shortness of breath and occasional cough, his chest x-ray done yesterday reveals worsening of the pulmonary infiltrate, he is still maintained on IV Zosyn, and is maintained on oxygen at 5 L via nasal cannula, pulmonary consultation was resubmitted yesterday for reevaluation and further advice regarding antibiotic treatment and further management of his pulmonary consultation, at this time patient is not ready yet for discharge to a rehab center, otherwise he denies any complaints there is no fever or chills no chest pain no nausea or vomiting no abdominal pain no diarrhea no blood in the stools and no urinary symptoms PEG tube site is clear. 06/30/2021 patient alert and oriented 3. Patient still having significant sputum production. Will order repeat sputum sample consults infectious disease services. Patient's liver enzymes also significantly elevated. Lipitor DC'd. Liver ultrasound will be ordered. Patient denies chest pain. Patient denies nausea vomiting or diarrhea. Patient denies any urinary burning or frequency On 07/01/2021 Patient was seen and examined on the medical floor, he is alert and oriented x 3 in no distress, he denies any complaints there is no fever or chills no headache or dizziness no chest pain no shortness of breath no palpitation no cough no nausea or vomiting no abdominal pain no diarrhea no blood in the stools no burning with urination no frequency or urgency and no hematuria, there is no weakness or numbness in any of the extremities no change in vision speech. Liver enzymes are quite elevated but are improving gradually, Lipitor was discontinued and Tylenol was discontinued, will continue to monitor On 07/02/2021 Patient is alert and oriented x 3 in no distress, he denies any complaints there is no fever or chills no headache or dizziness no chest pain no shortness of breath no palpitation no cough no nausea or vomiting no abdominal pain no diarrhea no blood in the stools no burning with urination no frequency or urgency and no hematuria, there is no weakness or numbness in any of the extremities no change in vision speech. Liver enzymes are quite elevated but are improving gradually, Lipitor was discontinued and Tylenol was discontinued, will continue to monitor, kidney function remains slightly elevated. On 07/03/2021 Patient was seen and examined on the medical floor, he is alert and oriented x 3 in no distress, he denies any complaints there is no fever or chills no headache or dizziness no chest pain no shortness of breath no palpitation no cough no nausea or vomiting no abdominal pain no diarrhea no blood in the stools no burning with urination no frequency or urgency and no hematuria, there is no weakness or numbness in any of the extremities no change in vision speech or gait. At this time liver enzymes are improving gradually will continue to monitor closely patient lost his IV access, will proceed with midline placement in a.m. on 07/05/2021 patient is alert and oriented 3. Chest CT completed showing bi lateral pleural effusions with right lower lobe infiltrate as well as patchy areas of infiltrate in the right upper lobe. Pulmonary and infectious disease services are following. Patient remains on Augmentin and Diflucan. Patient also maintained on IV Lasix. At this time patient denies chest pain. Patient denies nausea vomiting or diarrhea. Patient denies any urinary burning or frequency On 07/07/2021 patient is alert and oriented 3. Creatinine increasing to 2.16 and bun 39. Will add 250 mL of free water every 6 hours. Repeat chest x-ray ordered per pulmonary. Patient remains on Lasix. Pulmonary nephrology infectious disease service is following. At this time patient denies chest pain or shortness breath. Patient denies nausea vomiting or diarrhea. Patient denies any urinary burning or frequency On 07/08/2021 patient was seen and examined on the medical floor he is alert and oriented 3 in no apparent distress there is no fever or chills no headache or dizziness no chest pain no shortness of breath no cough no nausea or vomiting no abdominal pain no diarrhea no blood in the stools no burning with urination no frequency or urgency and no hematuria. He is receiving tube feeding via PEG tube, he is receiving physical therapy, possible transfer to a rehab unit early next week. On 07/09/2021 1 patient is alert and oriented 3. Creatinine increasing to 2.31 and bun 42. Potassium 5.5 nephrology services are following. Nam has been DC'd per nephrology. Repeat labs will be ordered. Patient remains on tube feedings. Antibiotic Augmentin per ID patient being worked up for DC to ECF facility. At this time patient denies chest pain or shortness breath. Patient denies nausea vomiting or diarrhea. Patient denies any urinary burning or frequency Objective - Vital Signs Vital signs: Vital Signs Temp 97.5 F L 07/09/21 07:37 Pulse 60 07/09/21 09:21 Resp 18 07/09/21 08:00 BP 137/74 07/09/21 07:37 Pulse Ox 99 07/09/21 09:15 Intake & Output 07/08/21 07/09/21 07/09/21 18:59 06:59 18:59 Intake Total 810 270 240 Output Total 1100 500 Balance -290 -230 240 Weight 68.5 kg 85 kg Intake: Tube Feeding 810 270 240 Output: Urine 1100 500 Other: Voiding Method Indwelling Catheter Indwelling Catheter Indwelling Catheter - Exam In general patient is alert and responsive in no distress HEENT head normocephalic and atraumatic Neck is supple no JVD no goiter no lymphadenopathy no carotid bruit Chest examination is clear to auscultation no crackles no wheezing Cardiac exam reveals regular heart sounds S1 and S2 no gallops no murmurs Abdomen is soft nontender no organomegaly with normal bowel sounds Extremity exam reveals no edema no cyanosis or clubbing Neurological examination reveals no gross focal deficits - Labs CBC & Chem 7: 07/08/21 08:29 07/09/21 06:28 Labs: Abnormal Lab Results - Last 24 Hours (Table) 07/08/21 07/08/21 07/08/21 Range/Units 08:29 12:00 18:01 Lymphocytes # (Manual) 0.86 L (1.0-4.8) k/uL Myelocytes # (Manual) 0.08 H (0) k/uL PT (9.0-12.0) sec INR (<1.2) Sodium (137-145) mmol/L Potassium (3.5-5.1) mmol/L Chloride (98-107) mmol/L Carbon Dioxide (22-30) mmol/L BUN (9-20) mg/dL Creatinine (0.66-1.25) mg/dL Glucose (74-99) mg/dL POC Glucose (mg/dL) 133 H 118 H (75-99) mg/dL Magnesium (1.6-2.3) mg/dL 07/08/21 07/09/21 07/09/21 Range/Units 23:26 05:50 06:28 Lymphocytes # (Manual) (1.0-4.8) k/uL Myelocytes # (Manual) (0) k/uL PT (9.0-12.0) sec INR (<1.2) Sodium 136 L (137-145) mmol/L Potassium 5.5 H (3.5-5.1) mmol/L Chloride 94 L (98-107) mmol/L Carbon Dioxide 33 H (22-30) mmol/L BUN 42 H (9-20) mg/dL Creatinine 2.31 H (0.66-1.25) mg/dL Glucose 126 H (74-99) mg/dL POC Glucose (mg/dL) 123 H 137 H (75-99) mg/dL Magnesium 2.9 H (1.6-2.3) mg/dL 07/09/21 Range/Units 06:28 Lymphocytes # (Manual) (1.0-4.8) k/uL Myelocytes # (Manual) (0) k/uL PT 24.4 H (9.0-12.0) sec INR 2.5 H (<1.2) Sodium (137-145) mmol/L Potassium (3.5-5.1) mmol/L Chloride (98-107) mmol/L Carbon Dioxide (22-30) mmol/L BUN (9-20) mg/dL Creatinine (0.66-1.25) mg/dL Glucose (74-99) mg/dL POC Glucose (mg/dL) (75-99) mg/dL Magnesium (1.6-2.3) mg/dL Assessment and Plan Plan: Fall at home with unclear history whether patient had a syncopal episode or loss of consciousness Episode of chest pain while in the ambulance Atrial fibrillation with rapid ventricular response. Patient started on amiod arone drip per cardiology. Patient transitioned to by mouth amiodarone Underlying history of paroxysmal atrial fibrillation, maintained on Coumadin. Evidence of dehydration with electrolyte imbalance with hyponatremia and hyperkalemia. resolved Underlying history of chronic kidney disease Underlying history of chc-[id number]-lybcgrzzc diabetes mellitus, no evidence of hypoglycemia Underlying history of hypertension Previous history of cerebellar stroke. Right basilar infiltrate suggestive of pneumonia, patient started on IV Zosyn. infectious disease and pulmonary service is followingpatient transitioned to Diflucan and oral Augmentin Dysphagia. PEG tube placement per Dr. ordonez Elevated liver enzymes. Lipitor DC'd. numbers improving DVT prophylaxis Coumadin. GI prophylaxis Pepcid Pulmonary, cardiology, nephrology and surgical services following maintaine on Augmentin and Diflucan s/p peg tube placement Repeat labs ordered PT OT services consulted Social work consulted for possible ECF placement
[2021-07-09] MEDS ORDERED: FUROSEMIDE 10 MG/ML 2 ML VIAL IV ONE (10:14)
--- NOTE | 2021-07-09 10:14 | P.PN ---
Subjective Patient is seen in follow-up for acute kidney injury on chronic kidney disease. Renal function stable. Diuretics held yesterday. Nonoliguric. No chest pain or shortness of breath. Receiving tube feeds due to aspiration. No changes overnight. Blood pressure stable. Vital signs are stable. General: The patient appeared well nourished and normally developed. HEENT: Head exam is unremarkable. LUNGS: Breath sounds decreased. HEART: Regular rate and rhythm. ABDOMEN: No distention. PEG tube noted. EXTREMITITES: No edema. Objective - Vital Signs Vital signs: Vital Signs Temp 97.5 F L 07/09/21 07:37 Pulse 60 07/09/21 09:21 Resp 18 07/09/21 08:00 BP 137/74 07/09/21 07:37 Pulse Ox 99 07/09/21 09:15 Intake & Output 07/08/21 07/09/21 07/09/21 18:59 06:59 18:59 Intake Total 810 270 240 Output Total 1100 500 Balance -290 -230 240 Weight 68.5 kg 85 kg Intake: Tube Feeding 810 270 240 Output: Urine 1100 500 Other: Voiding Method Indwelling Catheter Indwelling Catheter Indwelling Catheter - Labs CBC & Chem 7: 07/08/21 08:29 07/09/21 06:28 Labs: Abnormal Lab Results - Last 24 Hours (Table) 07/08/21 07/08/21 07/08/21 Range/Units 08:29 12:00 18:01 Lymphocytes # (Manual) 0.86 L (1.0-4.8) k/uL Myelocytes # (Manual) 0.08 H (0) k/uL PT (9.0-12.0) sec INR (<1.2) Sodium (137-145) mmol/L Potassium (3.5-5.1) mmol/L Chloride (98-107) mmol/L Carbon Dioxide (22-30) mmol/L BUN (9-20) mg/dL Creatinine (0.66-1.25) mg/dL Glucose (74-99) mg/dL POC Glucose (mg/dL) 133 H 118 H (75-99) mg/dL Magnesium (1.6-2.3) mg/dL 07/08/21 07/09/21 07/09/21 Range/Units 23:26 05:50 06:28 Lymphocytes # (Manual) (1.0-4.8) k/uL Myelocytes # (Manual) (0) k/uL PT (9.0-12.0) sec INR (<1.2) Sodium 136 L (137-145) mmol/L Potassium 5.5 H (3.5-5.1) mmol/L Chloride 94 L (98-107) mmol/L Carbon Dioxide 33 H (22-30) mmol/L BUN 42 H (9-20) mg/dL Creatinine 2.31 H (0.66-1.25) mg/dL Glucose 126 H (74-99) mg/dL POC Glucose (mg/dL) 123 H 137 H (75-99) mg/dL Magnesium 2.9 H (1.6-2.3) mg/dL 07/09/21 Range/Units 06:28 Lymphocytes # (Manual) (1.0-4.8) k/uL Myelocytes # (Manual) (0) k/uL PT 24.4 H (9.0-12.0) sec INR 2.5 H (<1.2) Sodium (137-145) mmol/L Potassium (3.5-5.1) mmol/L Chloride (98-107) mmol/L Carbon Dioxide (22-30) mmol/L BUN (9-20) mg/dL Creatinine (0.66-1.25) mg/dL Glucose (74-99) mg/dL POC Glucose (mg/dL) (75-99) mg/dL Magnesium (1.6-2.3) mg/dL Assessment and Plan Plan: Assessment: 1. Acute kidney injury secondary to ATN secondary to hemodynamic instability and component of cardiorenal syndrome. Renal function worsening the last few days. Diuretic stopped yesterday. Creatinine stable at 2.31 today. No hydronephrosis noted on kidney ultrasound. UA fairly benign. 2. Chronic kidney disease 3a with baseline creatinine near 1.6-2 secondary to solitary right kidney and obstructive uropathy. 3. Status post left nephrectomy. 4. Status post removal of left nephrostomy tube on 06/11/2021. 5. Hyperkalemia secondary to acute kidney injury and enalapril. 6. Diabetes mellitus. 7. Volume overload. Improved with diuresis. 8. Hypomagnesemia from poor intake. Replaced. Stable. 9. Orthostatic hypotension. Cardiology following. On midodrine. Cortisol level not low. TSH normal. 10. Urinary retention. Has a Lara catheter. 11. A. fib with RVR on amiodarone and Lopressor. 12. Anemia of chronic kidney disease. Iron deficiency noted - status post IV iron. On aranesp. 13. Chronic chronic diastolic CHF with severe pulmonary hypertension. 14. Status post PEG tube placement due to aspiration. Plan: Lasix 20 mg IV once today due to hyperkalemia. Avoid nephrotoxins. Continue to monitor renal function and urine output.
[2021-07-09 11:59] LABS: Glucose,Whole Blood 147 mg/dL (75-99)
--- NOTE | 2021-07-09 14:00 | P.PN ---
Subjective Progress Note Date: 07/09/21 07/09/2021, clinically the patient is essentially the same. He remains on simvastatin antibiotic coverage with Augmentin. Producing some limited amount of mucus. Receiving his enteral feeding for nutritional support. No worsening his oxygenation. PT/INR is therapeutic for now. He is quite debilitated and bedridden. Remains on DuoNeb nebulized treatments around the clock. Remains on Lasix. Discharge planning is in progress. INR is at 2.5. Creatinine is at 2.3. Objective - Vital Signs Vital signs: Vital Signs Temp 97.5 F L 07/09/21 07:37 Pulse 63 07/09/21 13:12 Resp 18 07/09/21 13:12 BP 137/74 07/09/21 07:37 Pulse Ox 99 07/09/21 09:15 Intake & Output 07/08/21 07/09/21 07/09/21 18:59 06:59 18:59 Intake Total 810 270 480 Output Total 1100 500 Balance -290 -230 480 Weight 68.5 kg 85 kg Intake: Tube Feeding 810 270 480 Output: Urine 1100 500 Other: Voiding Method Indwelling Catheter Indwelling Catheter Indwelling Catheter - Exam GENERAL EXAM: Alert, pleasant, chronically ill looking 61-year-old male, sitting up in the recliner, on 3 L of oxygen, with pulse ox of 94 % comfortable in no apparent distress. HEAD: Normocephalic/atraumatic. EYES: Normal reaction of pupils, equal size. Conjunctiva pink, sclera white. NOSE: Clear with pink turbinates. THROAT: No erythema or exudates. NECK: No masses, no JVD, no thyroid enlargement, no adenopathy. CHEST: No chest wall deformity. Symmetrical expansion. LUNGS: Equal air entry with diminished breath sounds and some crackles at the bases CVS: Regular rate and rhythm, normal S1 and S2, no gallops, no murmurs, no rubs ABDOMEN: Soft, nontender. No hepatosplenomegaly, normal bowel sounds, no guarding or rigidity. The PEG tube and the exit site is dry clean and intact. EXTREMITIES: No clubbing, no edema, no cyanosis, 2+ pulses and upper and lower extremities. MUSCULOSKELETAL: Muscle strength and tone normal. SPINE: No scoliosis or deformity SKIN: No rashes CENTRAL NERVOUS SYSTEM: Alert and oriented -3. No focal deficits, tone is normal in all 4 extremities. PSYCHIATRIC: Alert and oriented -3. Appropriate affect. Intact judgment and insight. - Labs CBC & Chem 7: 07/08/21 08:29 07/09/21 06:28 Labs: Abnormal Lab Results - Last 24 Hours (Table) 07/08/21 07/08/21 07/09/21 Range/Units 18:01 23:26 05:50 PT (9.0-12.0) sec INR (<1.2) Sodium (137-145) mmol/L Potassium (3.5-5.1) mmol/L Chloride (98-107) mmol/L Carbon Dioxide (22-30) mmol/L BUN (9-20) mg/dL Creatinine (0.66-1.25) mg/dL Glucose (74-99) mg/dL POC Glucose (mg/dL) 118 H 123 H 137 H (75-99) mg/dL Magnesium (1.6-2.3) mg/dL 07/09/21 07/09/21 07/09/21 Range/Units 06:28 06:28 11:58 PT 24.4 H (9.0-12.0) sec INR 2.5 H (<1.2) Sodium 136 L (137-145) mmol/L Potassium 5.5 H (3.5-5.1) mmol/L Chloride 94 L (98-107) mmol/L Carbon Dioxide 33 H (22-30) mmol/L BUN 42 H (9-20) mg/dL Creatinine 2.31 H (0.66-1.25) mg/dL Glucose 126 H (74-99) mg/dL POC Glucose (mg/dL) 147 H (75-99) mg/dL Magnesium 2.9 H (1.6-2.3) mg/dL Assessment and Plan Plan: 1 Status post fall at home or could be related to orthostatic hypotension, possible syncope or possibility of cardiac arrhythmia, considering the patient is having intermittent episodes of A. fib with RVR, current rhythm is sinus and the patient is currently on oral amiodarone at a dose of 400 mg by mouth twice a day and long-term and to coagulation with warfarin. 2 right lower lobe pneumonia with bilateral pleural effusion, consistent with aspiration. Please refer to the noncontrast CAT scan of the chest. The patient is currently on Augmentin and the patient is also on Diflucan for nathan and his sputum grown on multiple occasions. The patient is responding nicely to the treatment. Sputum production is improved and the patient remains on 3 L of oxygen by nasal cannula. For now he is receiving enteral feeding for nutritional support. 3 Dysphagia, patient had malik aspiration during modified barium swallow evaluation and at this time is complete nothing by mouth , post PEG tube placement 4 Chronic atrial fibrillation , currently on long-term and to coagulation with warfarin and the patient's rate is controlled. INR today is subtherapeutic and the patient remains on warfarin and the PT/INR is being adjusted accordingly.the INR from today is at therapeutic 5. Hypovolemic hyponatremia, recovered 6. Type 2 diabetes mellitus, currently on Glucerna. 7. History of hypertension 8. History of cerebellar stroke 9. History of [id number] smoking 10 chronic kidney failure, creatinine is improving and the creatinine is stable at 2.2, relatively stable, still on oral Lasix 11 history of nephrectomy, Nephrolithiasis with left ureteral obstruction, status post recent removal of nephrostomy recently 12 Abnormal LFTs, improving, asymptomatic Plan: Continue antibiotic coverage with Augmentin and Diflucan. Clinically improved and the patient is stable for now Aggressive pulmonary toileting and the cough and use of incentive spirometer INR therapeutic at 2.5 Continue Lasix oral Renal function is stable Chest x-ray findings are showing improvement in the lung bases with some re sidual atelectatic changes Discharge planning is in progress and the patient is being considered for [facility] for further rehabilitation Pulmonary critical care services will sign off the case.
[2021-07-09 17:35] LABS: Glucose,Whole Blood 128 mg/dL (75-99)
[2021-07-09] MEDS ORDERED: WARFARIN 3 MG TAB PO ONE (18:00)
[2021-07-09] MEDS ORDERED: INSULIN REGULAR 100 UNIT/ML VIAL (IV) IV ONE (18:09)
[2021-07-09] MEDS ORDERED: SODIUM BICARB 8.4% 50 ML SYR (1 MEQ/ML) IV ONE (18:09)
[2021-07-09] MEDS ORDERED: DEXTROSE 50% SYRINGE 50 ML IVP ONE (18:23)
--- NOTE | 2021-07-09 18:34 | PN ---
PROGRESS NOTE DATE OF SERVICE: 07/09/2021 REASON FOR FOLLOWUP: Pneumonia. INTERVAL HISTORY: The patient is afebrile. The patient is breathing comfortably. The patient denies having any chest pain, shortness of breath or cough. No abdominal pain or diarrhea. PHYSICAL EXAMINATION: Blood pressure 159/82 with a pulse of 65, temperature 97.9. He is 94% on 3 L nasal cannula. General description is a middle-aged male lying in bed in no distress. Respiratory system: Unlabored breathing, decreased breath sounds on the base, no wheeze. Heart S1, S2. Regular rate and rhythm. Abdomen soft, no tenderness. LABS: Creatinine is 2.31. DIAGNOSTIC IMPRESSION AND PLAN: Patient with pneumonia, possible aspiration. Sputum has been negative for resistant pathogen. Patient on oral Augmentin, to continue to finish short course of therapy and continue supportive care. MMODL / IJN: [id number] /
[2021-07-10 00:02] LABS: Glucose,Whole Blood 81 mg/dL (75-99)
[2021-07-10] MEDS: AMOXIC-POT CLAV 200-28.5MG/5ML 100 ML BOTTLE PEG/G-TUBE SCH ×3 (00:12→17:24)
[2021-07-10] MEDS: INSULIN ASPART (NovoLOG) 100 UNIT/ML VIAL SQ SCH ×4 (00:31→18:27)
[2021-07-10 06:19] LABS: Glucose,Whole Blood 116 mg/dL (75-99)
[2021-07-10 07:50] LABS: INR 2.8 (<1.2); Prothrombin Time 27.1 sec (9.0-12.0)
[2021-07-10] MEDS: MIDODRINE 5 MG TAB PO SCH ×3 (07:53→17:24)
[2021-07-10] MEDS: AMIODARONE 200 MG TAB PO SCH ×2 (07:53→21:25)
[2021-07-10] MEDS: CYANOCOBALAMIN 500 MCG TAB PO SCH (07:53)
[2021-07-10] MEDS: FOLIC ACID 1 MG TAB PO SCH (07:54)
[2021-07-10] MEDS: FAMOTIDINE 20 MG TAB PO SCH (07:54)
[2021-07-10] MEDS: METOPROLOL TARTRATE 25 MG TAB PO SCH ×3 (07:54→21:25)
[2021-07-10] MEDS: VENLAFAXINE HCL 75 MG TAB PO SCH ×2 (07:54→21:25)
[2021-07-10] MEDS: FLUCONAZOLE ORAL SUSP 1,400 MG/35 ML BOTTLE PO SCH (07:54)
[2021-07-10] MEDS: SYMBICORT 160-4.5 MCG INHALER INHALATION SCH ×2 (09:04→20:25)
[2021-07-10] MEDS: IPRATROPIUM-ALBUTEROL 3 ML NEB INHALATION SCH ×4 (09:04→20:25)
--- NOTE | 2021-07-10 09:20 | P.PN ---
Subjective Progress Note Date: 07/10/21 Everett Juárez, is a 61-year-old male patient of Dr. Jama, who presented to [facility] emergency room after sustaining a fall, and complaining of generalized weakness and dizziness, patient is not clear whether he passed out or had any loss of consciousness. Patient was also complaining of chest pain in the EMS, EKG was within normal limits and troponin level was less than 0.01 He was evaluated in the emergency room vital examination on presentation revealed a temperature of 97.4 pulse 71 respirations 16 blood pressure 87/50 pulse ox 94% on room air Laboratory data revealed a white blood count of 8.6 hemoglobin 12.0 platelet count 338 INR 1.2 sodium 128 potassium 6.2 chloride 99 CO2 22 BUN 17 creatinine 2.01 lactic acid on presentation 2.1 urine analysis did not reveal evidence of significant infection. Testing in the emergency room revealed EKG revealed normal sinus rhythm normal EKG chest x-ray done in the emergency room revealed no acute lung disease there was prominent pulmonary leon that could be related to adenopathy. 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 Patient was admitted to medical floor for further evaluation and treatment. Past medical history is significant for history of hypertension, history of hyperlipidemia, history of chronic kidney disease, history of ido-ednarqs-vrlpdadqw diabetes mellitus, history of previous stroke, history of paroxysmal atrial fibrillation maintained on Coumadin, history of COPD, patient still smoke a few cigarettes per day, he denies alcohol use. On review of systems Patient is alert and responsive in no distress, he denies any complaints there is no fever or chills no headache or dizziness no chest pain no shortness of breath no palpitation no cough no nausea or vomiting no abdominal pain no diarrhea no blood in the stools no burning with urination no frequency or urgency and no hematuria, there is no weakness or numbness in any of the extremities no change in vision speech, gait was not tested. On 06/16/2021 patient was seen and examined on the telemetry floor he is alert and oriented 3 in no apparent distress he is still complaining of dizziness and weakness otherwise he denies any complaints there is no fever or chills no headache no chest pain no shortness of breath no cough no palpitation no nausea or vomiting no abdominal pain no diarrhea no blood in the stools no burning with urination no frequency or urgency and no hematuria there is no weakness or numbness in any of the extremities no change in vision or in speech On 06/17/2021 Patient was seen and examined on the medical floor, he is alert and oriented x 3 in no distress, he denies any complaints there is no fever or chills no headache or dizziness no chest pain no shortness of breath no palpitation no cough no nausea or vomiting no abdominal pain no diarrhea no blood in the stools no burning with urination no frequency or urgency and no hematuria, there is no weakness or numbness in any of the extremities no change in vision or speech, gait was not tested at this time, patient had significant orthostatic hypotension, this was discussed with cardiology, and dose of Catapres was adjusted down to 0.1 mg by mouth twice a day, patient will be reevaluated by cardiology in a.m. On 06/18/2021 patient was seen and examined on the medical floor, he is alert and oriented 3 in no distress, he is complaining of weakness otherwise he denies any specific complaints, there is no fever or chills no headache or dizziness no chest pain no shortness of breath no cough no nausea or vomiting no abdominal pain no diarrhea no blood in the stools no burning with urination no frequency or urgency no hematuria, there is no weakness or numbness in any of the extremities there is no change in vision speech or gait. Repeat orthostatic hypotension reveals significant drop while standing, cardiology are following, yesterday dose of Catapres was decreased to 0.1 by mouth twice daily, awaiting further recommendation from cardiology On 06/19/2021 patient was seen and examined on the medical floor, he is alert and oriented 3 in no distress, he is complaining of weakness otherwise he denies any specific complaints, he is still having significant orthostatic hypotension was significant drop in blood pressure when patient stands up. the re is no fever or chills no headache or dizziness no chest pain no shortness of breath no cough no nausea or vomiting no abdominal pain no diarrhea no blood in the stools no burning with urination no frequency or urgency no hematuria, there is no weakness or numbness in any of the extremities there is no change in vision speech or gait. Cardiology are following at this time Catapres is being discontinued and midodrine was added to medication regimen will continue to monitor closely. On 06/20/2021 patient was seen and examined on the medical floor he is alert and oriented 3 in no apparent distress, this morning he had an episode of palpitation and severe shortness of breath, EKG revealed SVT versus A. fib with RVR with a heart rate of 186 patient was transferred to [facility]. he was seen by [facility] rdiology and was started on IV amiodarone, chest x-ray was done today and was suspicious for right sided infiltrate suggestive of pneumonia patient is stating that he is having some cough with yellow sputum production WBC is low, patient was started on IV antibiotic Zosyn, and pulmonary consultation was requested. Patient denies any fever or chills no headache or dizziness no chest pain no nausea or vomiting no abdominal pain no diarrhea and no urinary symptoms. On 06/21/2021 patient was seen and examined on the medical floor he is complaining of cough otherwise he denies any complaints at this time there is no fever or chills no headache or dizziness no chest pain no shortness of breath no nausea or vomiting no abdominal pain no diarrhea no blood in the stools no burning with urination no frequency or urgency and no hematuria, yesterday patient had an episode of A. fib with RVR, he was started on IV amiodarone by cardiology and was transferred to telemetry floor, also chest x-ray revealed evidence of right basilar infiltrate, he was started on IV Zosyn pulmonary consultation was requested, sputum culture was ordered On 06/22/2021 Patient was seen and examined on the medical floor, he is alert and oriented x 3 in no distress, he is complaining of cough otherwise he denies any complaints there is no fever or chills no headache or dizziness no chest pain no shortness of breath no palpitation no cough no nausea or vomiting no abdominal pain no diarrhea no blood in the stools no burning with urination no frequency or urgency and no hematuria, there is no weakness or numbness in any of the extremities no change in vision speech or gait. Patient failed swallow evaluation with all food consistency today, he is kept nothing by mouth consultation for Dr. Zacarias for PEG tube placement was initiated. On 06/23/2021 patient is alert and oriented 3. Patient is resting comfortably in bed. Patient currently maintained on amiodarone drip per cardiology. Patient also maintained on IV Zosyn for aspiration pneumonia. Surgical services have been consulted for PEG tube placement. At this time pulmonary, cardiology, nephrology and surgical services following. Repeat labs have been ordered. Patient is still complaining of chest congestion and cough. Patient denies chest pain. Patient denies nausea vomiting or diarrhea. Patient denies any urinary burning or frequency. On 06/24/2021 Patient was seen and examined on the medical floor, he is alert and oriented x 3 in no distress, he denies any complaints there is no fever or chills no headache or dizziness no chest pain no shortness of breath no palpitation no cough no nausea or vomiting no abdominal pain no diarrhea no blood in the stools no burning with urination no frequency or urgency and no hematuria, there is no weakness or numbness in any of the extremities no change in vision speech, today INR is 5.3 Coumadin is on hold Will give 1 dose of vitamin K 2 mg IV patient is nothing by mouth , he is awaiting PEG tube placement On 06/24/2021 patient is alert and oriented 3 INR 1.2. Patient maintained on IV amiodarone. Tentative plans for PEG tube placement tomorrow per surgical services. . At this time patient remains with productive cough. Patient denies chest pain. Patient denies nausea vomiting or diarrhea. Patient denies any urinary burning or frequency On 06/26/2021 Patient was seen and examined on the medical floor, he is alert and oriented x 3 in no distress, he denies any complaints there is no fever or chills no headache or dizziness no chest pain no shortness of breath no palp itation no cough no nausea or vomiting no abdominal pain no diarrhea no blood in the stools no burning with urination no frequency or urgency and no hematuria, there is no weakness or numbness in any of the extremities no change in vision speech, patient received vitamin K his INR is low we are awaiting PEG tube placement On 06/27/2021 Patient was seen and examined on the medical floor, he is alert and oriented x 3 in no distress, he denies any complaints there is no fever or chills no headache or dizziness no chest pain no shortness of breath no palpitation no cough no nausea or vomiting no abdominal pain no diarrhea no blood in the stools no burning with urination no frequency or urgency and no hematuria, there is no weakness or numbness in any of the extremities no change in vision speech, Patient underwent PEG tube placement and was started on PEG tube feeding, will continue to follow closely will recheck chest x-ray in a.m. On 06/28/2021 patient alert and oriented 3. Repeat chest x-ray showing worsening interstitial edema with superimposed infiltrates versus atelectasis. Small pleural effusion. We'll reconsult pulmonary services. Patient remains on IV Zosyn. Patient does have PEG tube in place tube feeds running. At this time patient denies chest pain. Patient does report occasional cough with sputum production. Patient denies nausea vomiting or diarrhea. Patient denies any urinary burning or frequency. On 06/29/2021 patient was seen and examined on the telemetry floor, he is alert and oriented 3 in no distress, he is still complaining of shortness of breath and occasional cough, his chest x-ray done yesterday reveals worsening of the pulmonary infiltrate, he is still maintained on IV Zosyn, and is maintained on oxygen at 5 L via nasal cannula, pulmonary consultation was resubmitted yesterday for reevaluation and further advice regarding antibiotic treatment and further management of his pulmonary consultation, at this time patient is not ready yet for discharge to a rehab center, otherwise he denies any complaints there is no fever or chills no chest pain no nausea or vomiting no abdominal pain no diarrhea no blood in the stools and no urinary symptoms PEG tube site is clear. 06/30/2021 patient alert and oriented 3. Patient still having significant sputum production. Will order repeat sputum sample consults infectious disease services. Patient's liver enzymes also significantly elevated. Lipitor DC'd. Liver ultrasound will be ordered. Patient denies chest pain. Patient denies nausea vomiting or diarrhea. Patient denies any urinary burning or frequency On 07/01/2021 Patient was seen and examined on the medical floor, he is alert and oriented x 3 in no distress, he denies any complaints there is no fever or chills no headache or dizziness no chest pain no shortness of breath no palpitation no cough no nausea or vomiting no abdominal pain no diarrhea no blood in the stools no burning with urination no frequency or urgency and no hematuria, there is no weakness or numbness in any of the extremities no change in vision speech. Liver enzymes are quite elevated but are improving gradually, Lipitor was discontinued and Tylenol was discontinued, will continue to monitor On 07/02/2021 Patient is alert and oriented x 3 in no distress, he denies any complaints there is no fever or chills no headache or dizziness no chest pain no shortness of breath no palpitation no cough no nausea or vomiting no abdominal pain no diarrhea no blood in the stools no burning with urination no frequency or urgency and no hematuria, there is no weakness or numbness in any of the extremities no change in vision speech. Liver enzymes are quite elevated but are improving gradually, Lipitor was discontinued and Tylenol was discontinued, will continue to monitor, kidney function remains slightly elevated. On 07/03/2021 Patient was seen and examined on the medical floor, he is alert and oriented x 3 in no distress, he denies any complaints there is no fever or chills no headache or dizziness no chest pain no shortness of breath no palpitation no cough no nausea or vomiting no abdominal pain no diarrhea no blood in the stools no burning with urination no frequency or urgency and no hematuria, there is no weakness or numbness in any of the extremities no change in vision speech or gait. At this time liver enzymes are improving gradually will continue to monitor closely patient lost his IV access, will proceed with midline placement in a.m. on 07/05/2021 patient is alert and oriented 3. Chest CT completed showing bi lateral pleural effusions with right lower lobe infiltrate as well as patchy areas of infiltrate in the right upper lobe. Pulmonary and infectious disease services are following. Patient remains on Augmentin and Diflucan. Patient also maintained on IV Lasix. At this time patient denies chest pain. Patient denies nausea vomiting or diarrhea. Patient denies any urinary burning or frequency On 07/07/2021 patient is alert and oriented 3. Creatinine increasing to 2.16 and bun 39. Will add 250 mL of free water every 6 hours. Repeat chest x-ray ordered per pulmonary. Patient remains on Lasix. Pulmonary nephrology infectious disease service is following. At this time patient denies chest pain or shortness breath. Patient denies nausea vomiting or diarrhea. Patient denies any urinary burning or frequency On 07/08/2021 patient was seen and examined on the medical floor he is alert and oriented 3 in no apparent distress there is no fever or chills no headache or dizziness no chest pain no shortness of breath no cough no nausea or vomiting no abdominal pain no diarrhea no blood in the stools no burning with urination no frequency or urgency and no hematuria. He is receiving tube feeding via PEG tube, he is receiving physical therapy, possible transfer to a rehab unit early next week. On 07/09/2021 1 patient is alert and oriented 3. Creatinine increasing to 2.31 and bun 42. Potassium 5.5 nephrology services are following. Lasix has been DC'd per nephrology. Repeat labs will be ordered. Patient remains on tube feedings. Antibiotic Augmentin per ID patient being worked up for DC to ECF facility. At this time patient denies chest pain or shortness breath. Patient denies nausea vomiting or diarrhea. Patient denies any urinary burning or frequency On 07/10/2021 patient is alert and oriented 3. Patient was given IV Lasix history for elevated potassium per nephrology awaiting lab work to assess kidney function today. Patient has been cleared by pulmonary services but will likely stay due to worsening kidney function. This time patient denies chest pain or shortness of breath. Patient denies nausea vomiting or diarrhea. Patient denies any urinary burning or frequency Objective - Vital Signs Vital signs: Vital Signs Temp 97.6 F 07/10/21 08:00 Pulse 70 07/10/21 09:11 Resp 16 07/10/21 08:00 BP 133/74 07/10/21 08:00 Pulse Ox 99 07/10/21 08:00 Intake & Output 07/09/21 07/10/21 07/10/21 18:59 06:59 18:59 Intake Total 720 960 Output Total 1200 1850 Balance -480 -890 Weight 86 kg Intake: Oral 0 Tube Feeding 720 960 Output: Urine 1200 1850 Other: Voiding Method Indwelling Catheter Indwelling Catheter # Voids 1 - Exam In general patient is alert and responsive in no distress HEENT head normocephalic and atraumatic Neck is supple no JVD no goiter no lymphadenopathy no carotid bruit Chest examination is clear to auscultation no crackles no wheezing Cardiac exam reveals regular heart sounds S1 and S2 no gallops no murmurs Abdomen is soft nontender no organomegaly with normal bowel sounds Extremity exam reveals no edema no cyanosis or clubbing Neurological examination reveals no gross focal deficits - Labs CBC & Chem 7: 07/08/21 08:29 07/09/21 21:31 Labs: Abnormal Lab Results - Last 24 Hours (Table) 07/09/21 07/09/21 07/09/21 Range/Units 11:58 17:25 17:33 PT (9.0-12.0) sec INR (<1.2) Potassium 5.6 H (3.5-5.1) mmol/L POC Glucose (mg/dL) 147 H 128 H (75-99) mg/dL 07/09/21 07/10/21 07/10/21 Range/Units 21:31 06:17 07:15 PT 27.1 H (9.0-12.0) sec INR 2.8 H (<1.2) Potassium 5.4 H (3.5-5.1) mmol/L POC Glucose (mg/dL) 116 H (75-99) mg/dL Assessment and Plan Plan: Fall at home with unclear history whether patient had a syncopal episode or loss of consciousness Episode of chest pain while in the ambulance Atrial fibrillation with rapid ventricular response. Patient started on amiodarone drip per cardiology. Patient transitioned to by mouth amiodarone Underlying history of paroxysmal atrial fibrillation, maintained on Coumadin. Evidence of dehydration with electrolyte imbalance with hyponatremia and hyperkalemia. resolved Underlying history of chronic kidney disease Underlying history of haz-lkgntez-vylintazm diabetes mellitus, no evidence of hypoglycemia Underlying history of hypertension Previous history of cerebellar stroke. Right basilar infiltrate suggestive of pneumonia, patient started on IV Zosyn. infectious disease and pulmonary service is followingpatient transitioned to Diflucan and oral Augmentin Dysphagia. PEG tube placement per Dr. ordonez Elevated liver enzymes. Lipitor DC'd. numbers improving Hyperkalemia and acute kidney injury. Nephrology services are following. Lasix has been DC'd repeat labs ordered DVT prophylaxis Coumadin. GI prophylaxis Pepcid Pulmonary, cardiology, nephrology and surgical services following maintaine on Augmentin and Diflucan s/p peg tube placement Repeat labs ordered PT OT services consulted Social work consulted for possible ECF placement
[2021-07-10 11:08] LABS: HCT 38.3 % (39.6-50.0); HGB 11.8 g/dL (13.0-17.0); MCH 34.9 pg (27.0-32.0); MCHC 30.8 g/dL (32.0-37.0); MCV 113.3 fL (80.0-97.0); Mean Platelet Volume 9.8 fL (9.5-12.2); Platelet Count 390 X 10*3/uL (140-440); RBC 3.38 X 10*6/uL (4.40-5.60); RDW 17.9 % (11.5-14.5); WBC 7.41 X 10*3/uL (4.50-10.00)
[2021-07-10 11:09] LABS: Glucose,Whole Blood 134 mg/dL (75-99)
[2021-07-10 11:48] LABS: Basophils # (A) 0.11 X 10*3/uL (0.00-0.10); Basophils % (A) 1.5 %; Eosinophils # (A) 0.24 X 10*3/uL (0.04-0.35); Eosinophils % (A) 3.2 %; Lymphocytes # (A) 1.18 X 10*3/uL (0.90-5.00); Lymphocytes % (A) 15.9 %; Monocytes # (A) 0.96 X 10*3/uL (0.20-1.00); Neutrophils # (A) 4.89 X 10*3/uL (1.80-7.70)
[2021-07-10 11:49] LABS: Macrocytosis (M) 3+
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
[2021-07-10] MEDS ORDERED: WARFARIN 2 MG TAB PO ONE (18:00)
[2021-07-10 18:09] LABS: Glucose,Whole Blood 108 mg/dL (75-99)
[2021-07-11 00:40] LABS: Glucose,Whole Blood 107 mg/dL (75-99)
[2021-07-11 02:46] LABS: African American GFR (CKD) 29.9 (60.0-200.0); Albumin 3.6 g/dL (3.8-4.9); Albumin/Globulin Ratio 0.93 (1.60-3.17); Anion Gap 17.3 mmol/L (4.00-12.00); BUN/Creat Ratio 17.04 Ratio (12.00-20.00); Blood Urea Nitrogen 43.8 mg/dL (9.0-27.0); Calcium 9.3 mg/dL (8.7-10.3); Carbon Dioxide 29.5 mmol/L (21.6-31.8); Globulin 3.9 g/dL (1.6-3.3); Non-African American GFR(CKD) 25.8 (60.0-200.0); Potassium 5.8 mmol/L (3.5-5.5); Total Bilirubin 0.5 mg/dL (0.30-1.20); Total Protein 7.4 g/dL (6.2-8.2)
[2021-07-11] MEDS: INSULIN ASPART (NovoLOG) 100 UNIT/ML VIAL SQ SCH ×5 (06:00→23:58)
[2021-07-11 06:11] LABS: Glucose,Whole Blood 113 mg/dL (75-99)
[2021-07-11 07:06] LABS: Glucose,Whole Blood 117 mg/dL (75-99)
[2021-07-11] MEDS: AMIODARONE 200 MG TAB PO SCH ×2 (08:54→20:09)
[2021-07-11] MEDS: CYANOCOBALAMIN 500 MCG TAB PO SCH (08:54)
[2021-07-11] MEDS: MIDODRINE 5 MG TAB PO SCH ×3 (08:54→16:43)
[2021-07-11] MEDS: FOLIC ACID 1 MG TAB PO SCH (08:55)
[2021-07-11] MEDS: METOPROLOL TARTRATE 25 MG TAB PO SCH ×3 (08:55→21:40)
[2021-07-11] MEDS: VENLAFAXINE HCL 75 MG TAB PO SCH ×2 (08:55→20:09)
[2021-07-11] MEDS: FLUCONAZOLE ORAL SUSP 1,400 MG/35 ML BOTTLE PO SCH (08:55)
[2021-07-11] MEDS: FAMOTIDINE 20 MG TAB PO SCH (08:55)
[2021-07-11] MEDS: IPRATROPIUM-ALBUTEROL 3 ML NEB INHALATION SCH ×4 (09:13→20:15)
[2021-07-11] MEDS: SYMBICORT 160-4.5 MCG INHALER INHALATION SCH ×2 (09:13→20:16)
[2021-07-11 09:21] LABS: Anisocytosis Slight; HCT 37.5 % (39.0-53.0); HGB 11.8 gm/dL (13.0-17.5); Hypochromasia Slight; MCH 35.6 pg (25.0-35.0); MCHC 31.4 g/dL (31.0-37.0); MCV 113.6 fL (80.0-100.0); Macrocytosis Marked; Mean Platelet Volume 7.8; Platelet Count 382 k/uL (150-450); Poikilocytosis Slight; RBC 3.31 m/uL (4.30-5.90); RDW 16.6 % (11.5-15.5); WBC 9.1 k/uL (3.8-10.6)
[2021-07-11 10:26] LABS: African American GFR (CKD) 33 (>60 ml/min/1.73 sqM); Anion Gap 9 mmol/L; Blood Urea Nitrogen 48 mg/dL (9-20); Calcium 9.7 mg/dL (8.4-10.2); Carbon Dioxide 31 mmol/L (22-30); Chloride 95 mmol/L (98-107); Glucose 101 mg/dL (74-99); Non-African American GFR(CKD) 29 (>60 ml/min/1.73 sqM); Potassium 5.8 mmol/L (3.5-5.1); Sodium 135 mmol/L (137-145)
--- NOTE | 2021-07-11 11:33 | PN ---
PROGRESS NOTE The patient is seen for followup for acute kidney injury on top of chronic kidney disease. He is fairly stable. Denies any significant complaints. He has an indwelling Lara catheter. Diuretics are currently on hold. PHYSICAL EXAMINATION: On examination today, blood pressure 133/73, heart rate 71 per minute. He is afebrile. Examination of the heart S1, S2. Examination lungs good air entry bilaterally. Abdomen is soft, nontender. Examination of lower extremities shows no evidence of edema. GLAZE HANDLER exam grossly intact. LAB: Show hemoglobin 11.8 today. Potassium was 5.4 yesterday. Sodium 136, serum creatinine 2.3 yesterday. No labs available from today. ASSESSMENT: 1. Acute kidney injury associated with ATN, hemodynamic instability and component of cardiorenal syndrome. Check labs today. Diuretics are on hold as serum creatinine had been worsening. The UA is fairly benign. 2. Chronic kidney disease stage 3, baseline creatinine 1.6-2 with solitary right kidney and obstructive uropathy with history of previous left nephrectomy and removal of left nephrostomy tube. 3. Volume overload now improved with diuresis. 4. Hyperkalemia associated with acute kidney injury, use of ANTONIO inhibitors, now resolved. 5. Atrial fibrillation with RVR maintained on amiodarone and Lopressor. 6. Chronic diastolic congestive heart failure with severe pulmonary hypertension. 7. Status post PEG tube placement for aspiration. 8. Urine retention, currently with Lara catheter. PLAN: Repeat labs in a.m. MMODL / IJN: [id number] /
--- NOTE | 2021-07-11 11:35 | PN ---
PROGRESS NOTE DATE OF SERVICE: 07/10/2021 REASON FOR FOLLOWUP: Pneumonia. INTERVAL HISTORY: The patient is afebrile. The patient is currently breathing comfortably on nasal cannula oxygen. The patient denies having any chest pain. Did have a cough; no worsening, though. No nausea, no vomiting. No abdominal pain or diarrhea. PHYSICAL EXAMINATION: Blood pressure 144/78 with a pulse of 66, temperature 98. He is 98% on 4 L nasal cannula. General description is a middle-aged male lying in bed in no distress. RESPIRATORY SYSTEM: Unlabored breathing. Decreased breath sounds at the bases. No wheeze. HEART: S1, S2. Regular rate and rhythm. ABDOMEN: Soft. No tenderness. LABS: Hemoglobin is 11.9, white count 7.4, creatinine is 2. INR is 2.8. DIAGNOSTIC IMPRESSION AND PLAN: Patient with pneumonia, for which the patient has received adequate antibiotic therapy. The patient's white count is normal. He is afebrile. He will be monitored closely off antibiotics. Continue supportive care. MMODL / IJN: [id number] /
[2021-07-11 11:37] LABS: Glucose,Whole Blood 102 mg/dL (75-99)
--- NOTE | 2021-07-11 12:30 | P.PN ---
Subjective Progress Note Date: 07/04/21 Everett Juárez, is a 61-year-old male patient of Dr. Jama, who presented to [facility] emergency room after sustaining a fall, and complaining of generalized weakness and dizziness, patient is not clear whether he passed out or had any loss of consciousness. Patient was also complaining of chest pain in the EMS, EKG was within normal limits and troponin level was less than 0.01 He was evaluated in the emergency room vital examination on presentation revealed a temperature of 97.4 pulse 71 respirations 16 blood pressure 87/50 pulse ox 94% on room air Laboratory data revealed a white blood count of 8.6 hemoglobin 12.0 platelet count 338 INR 1.2 sodium 128 potassium 6.2 chloride 99 CO2 22 BUN 17 creatinine 2.01 lactic acid on presentation 2.1 urine analysis did not reveal evidence of significant infection. Testing in the emergency room revealed EKG revealed normal sinus rhythm normal EKG chest x-ray done in the emergency room revealed no acute lung disease there was prominent pulmonary leon that could be related to adenopathy. 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 Patient was admitted to medical floor for further evaluation and treatment. Past medical history is significant for history of hypertension, history of hyperlipidemia, history of chronic kidney disease, history of yae-kstezko-xwkrpmfnw diabetes mellitus, history of previous stroke, history of paroxysmal atrial fibrillation maintained on Coumadin, history of COPD, patient still smoke a few cigarettes per day, he denies alcohol use. On review of systems Patient is alert and responsive in no distress, he denies any complaints there is no fever or chills no headache or dizziness no chest pain no shortness of breath no palpitation no cough no nausea or vomiting no abdominal pain no diarrhea no blood in the stools no burning with urination no frequency or urgency and no hematuria, there is no weakness or numbness in any of the extremities no change in vision speech, gait was not tested. On 06/16/2021 patient was seen and examined on the telemetry floor he is alert and oriented 3 in no apparent distress he is still complaining of dizziness and weakness otherwise he denies any complaints there is no fever or chills no headache no chest pain no shortness of breath no cough no palpitation no nausea or vomiting no abdominal pain no diarrhea no blood in the stools no burning with urination no frequency or urgency and no hematuria there is no weakness or numbness in any of the extremities no change in vision or in speech On 06/17/2021 Patient was seen and examined on the medical floor, he is alert and oriented x 3 in no distress, he denies any complaints there is no fever or chills no headache or dizziness no chest pain no shortness of breath no palpitation no cough no nausea or vomiting no abdominal pain no diarrhea no blood in the stools no burning with urination no frequency or urgency and no hematuria, there is no weakness or numbness in any of the extremities no change in vision or speech, gait was not tested at this time, patient had significant orthostatic hypotension, this was discussed with cardiology, and dose of Catapres was adjusted down to 0.1 mg by mouth twice a day, patient will be reevaluated by cardiology in a.m. On 06/18/2021 patient was seen and examined on the medical floor, he is alert and oriented 3 in no distress, he is complaining of weakness otherwise he denies any specific complaints, there is no fever or chills no headache or dizziness no chest pain no shortness of breath no cough no nausea or vomiting no abdominal pain no diarrhea no blood in the stools no burning with urination no frequency or urgency no hematuria, there is no weakness or numbness in any of the extremities there is no change in vision speech or gait. Repeat orthostatic hypotension reveals significant drop while standing, cardiology are following, yesterday dose of Catapres was decreased to 0.1 by mouth twice daily, awaiting further recommendation from cardiology On 06/19/2021 patient was seen and examined on the medical floor, he is alert and oriented 3 in no distress, he is complaining of weakness otherwise he denies any specific complaints, he is still having significant orthostatic hypotension was significant drop in blood pressure when patient stands up. the re is no fever or chills no headache or dizziness no chest pain no shortness of breath no cough no nausea or vomiting no abdominal pain no diarrhea no blood in the stools no burning with urination no frequency or urgency no hematuria, there is no weakness or numbness in any of the extremities there is no change in vision speech or gait. Cardiology are following at this time Catapres is being discontinued and midodrine was added to medication regimen will continue to monitor closely. On 06/20/2021 patient was seen and examined on the medical floor he is alert and oriented 3 in no apparent distress, this morning he had an episode of palpitation and severe shortness of breath, EKG revealed SVT versus A. fib with RVR with a heart rate of 186 patient was transferred to [facility]. he was seen by ca rdiology and was started on IV amiodarone, chest x-ray was done today and was suspicious for right sided infiltrate suggestive of pneumonia patient is stating that he is having some cough with yellow sputum production WBC is low, patient was started on IV antibiotic Zosyn, and pulmonary consultation was requested. Patient denies any fever or chills no headache or dizziness no chest pain no nausea or vomiting no abdominal pain no diarrhea and no urinary symptoms. On 06/21/2021 patient was seen and examined on the medical floor he is complaining of cough otherwise he denies any complaints at this time there is no fever or chills no headache or dizziness no chest pain no shortness of breath no nausea or vomiting no abdominal pain no diarrhea no blood in the stools no burning with urination no frequency or urgency and no hematuria, yesterday patient had an episode of A. fib with RVR, he was started on IV amiodarone by cardiology and was transferred to telemetry floor, also chest x-ray revealed evidence of right basilar infiltrate, he was started on IV Zosyn pulmonary consultation was requested, sputum culture was ordered On 06/22/2021 Patient was seen and examined on the medical floor, he is alert and oriented x 3 in no distress, he is complaining of cough otherwise he denies any complaints there is no fever or chills no headache or dizziness no chest pain no shortness of breath no palpitation no cough no nausea or vomiting no abdominal pain no diarrhea no blood in the stools no burning with urination no frequency or urgency and no hematuria, there is no weakness or numbness in any of the extremities no change in vision speech or gait. Patient failed swallow evaluation with all food consistency today, he is kept nothing by mouth consultation for Dr. Zacarias for PEG tube placement was initiated. On 06/23/2021 patient is alert and oriented 3. Patient is resting comfortably in bed. Patient currently maintained on amiodarone drip per cardiology. Patient also maintained on IV Zosyn for aspiration pneumonia. Surgical services have been consulted for PEG tube placement. At this time pulmonary, cardiology, nephrology and surgical services following. Repeat labs have been ordered. Patient is still complaining of chest congestion and cough. Patient denies chest pain. Patient denies nausea vomiting or diarrhea. Patient denies any urinary burning or frequency. On 06/24/2021 Patient was seen and examined on the medical floor, he is alert and oriented x 3 in no distress, he denies any complaints there is no fever or chills no headache or dizziness no chest pain no shortness of breath no palpitation no cough no nausea or vomiting no abdominal pain no diarrhea no blood in the stools no burning with urination no frequency or urgency and no hematuria, there is no weakness or numbness in any of the extremities no change in vision speech, today INR is 5.3 Coumadin is on hold Will give 1 dose of vitamin K 2 mg IV patient is nothing by mouth , he is awaiting PEG tube placement On 06/24/2021 patient is alert and oriented 3 INR 1.2. Patient maintained on IV amiodarone. Tentative plans for PEG tube placement tomorrow per surgical services. . At this time patient remains with productive cough. Patient denies chest pain. Patient denies nausea vomiting or diarrhea. Patient denies any urinary burning or frequency On 06/26/2021 Patient was seen and examined on the medical floor, he is alert and oriented x 3 in no distress, he denies any complaints there is no fever or chills no headache or dizziness no chest pain no shortness of breath no palp itation no cough no nausea or vomiting no abdominal pain no diarrhea no blood in the stools no burning with urination no frequency or urgency and no hematuria, there is no weakness or numbness in any of the extremities no change in vision speech, patient received vitamin K his INR is low we are awaiting PEG tube placement On 06/27/2021 Patient was seen and examined on the medical floor, he is alert and oriented x 3 in no distress, he denies any complaints there is no fever or chills no headache or dizziness no chest pain no shortness of breath no palpitation no cough no nausea or vomiting no abdominal pain no diarrhea no blood in the stools no burning with urination no frequency or urgency and no hematuria, there is no weakness or numbness in any of the extremities no change in vision speech, Patient underwent PEG tube placement and was started on PEG tube feeding, will continue to follow closely will recheck chest x-ray in a.m. On 06/28/2021 patient alert and oriented 3. Repeat chest x-ray showing worsening interstitial edema with superimposed infiltrates versus atelectasis. Small pleural effusion. We'll reconsult pulmonary services. Patient remains on IV Zosyn. Patient does have PEG tube in place tube feeds running. At this time patient denies chest pain. Patient does report occasional cough with sputum production. Patient denies nausea vomiting or diarrhea. Patient denies any urinary burning or frequency. On 06/29/2021 patient was seen and examined on the telemetry floor, he is alert and oriented 3 in no distress, he is still complaining of shortness of breath and occasional cough, his chest x-ray done yesterday reveals worsening of the pulmonary infiltrate, he is still maintained on IV Zosyn, and is maintained on oxygen at 5 L via nasal cannula, pulmonary consultation was resubmitted yesterday for reevaluation and further advice regarding antibiotic treatment and further management of his pulmonary consultation, at this time patient is not ready yet for discharge to a rehab center, otherwise he denies any complaints there is no fever or chills no chest pain no nausea or vomiting no abdominal pain no diarrhea no blood in the stools and no urinary symptoms PEG tube site is clear. 06/30/2021 patient alert and oriented 3. Patient still having significant sputum production. Will order repeat sputum sample consults infectious disease services. Patient's liver enzymes also significantly elevated. Lipitor DC'd. Liver ultrasound will be ordered. Patient denies chest pain. Patient denies nausea vomiting or diarrhea. Patient denies any urinary burning or frequency On 07/01/2021 Patient was seen and examined on the medical floor, he is alert and oriented x 3 in no distress, he denies any complaints there is no fever or chills no headache or dizziness no chest pain no shortness of breath no palpitation no cough no nausea or vomiting no abdominal pain no diarrhea no blood in the stools no burning with urination no frequency or urgency and no hematuria, there is no weakness or numbness in any of the extremities no change in vision speech. Liver enzymes are quite elevated but are improving gradually, Lipitor was discontinued and Tylenol was discontinued, will continue to monitor On 07/02/2021 Patient is alert and oriented x 3 in no distress, he denies any complaints there is no fever or chills no headache or dizziness no chest pain no shortness of breath no palpitation no cough no nausea or vomiting no abdominal pain no diarrhea no blood in the stools no burning with urination no frequency or urgency and no hematuria, there is no weakness or numbness in any of the extremities no change in vision speech. Liver enzymes are quite elevated but are improving gradually, Lipitor was discontinued and Tylenol was discontinued, will continue to monitor, kidney function remains slightly elevated. On 07/03/2021 Patient was seen and examined on the medical floor, he is alert and oriented x 3 in no distress, he denies any complaints there is no fever or chills no headache or dizziness no chest pain no shortness of breath no palpitation no cough no nausea or vomiting no abdominal pain no diarrhea no blood in the stools no burning with urination no frequency or urgency and no hematuria, there is no weakness or numbness in any of the extremities no change in vision speech or gait. At this time liver enzymes are improving gradually will continue to monitor closely patient lost his IV access, will proceed with midline placement in a.m. On 07/04/2021 Patient is alert and oriented x 3 in no distress, he denies any complaints there is no fever or chills no headache or dizziness no chest pain no shortness of breath no palpitation no cough no nausea or vomiting no abdominal pain no diarrhea no blood in the stools no burning with urination no frequency or urgency and no hematuria, there is no weakness or numbness in any of the extremities no change in vision speech or gait. At this time liver enzymes are improving gradually will continue to monitor closely patient lost his IV access, will proceed with midline placement in a.m. Objective - Vital Signs Vital signs: Vital Signs Temp 97.4 F L 07/04/21 04:00 Pulse 74 07/04/21 07:28 Resp 18 07/04/21 04:00 BP 110/66 07/04/21 04:00 Pulse Ox 95 07/04/21 07:05 Intake & Output 07/03/21 07/04/21 07/04/21 18:59 06:59 18:59 Intake Total 540 270 Output Total 1600 Balance 540 -1330 Weight 95 kg 94 kg Intake: Tube Feeding 540 270 Output: Urine 1600 Other: Voiding Method Indwelling Catheter Indwelling Catheter # Bowel Movements 2 - Exam In general patient is alert and responsive in no distress HEENT head normocephalic and atraumatic Neck is supple no JVD no goiter no lymphadenopathy no carotid bruit Chest examination is clear to auscultation no crackles no wheezing Cardiac exam reveals regular heart sounds S1 and S2 no gallops no murmurs Abdomen is soft nontender no organomegaly with normal bowel sounds Extremity exam reveals no edema no cyanosis or clubbing Neurological examination reveals no gross focal deficits - Labs CBC & Chem 7: 07/11/21 09:00 07/11/21 09:00 Labs: Abnormal Lab Results - Last 24 Hours (Table) 07/03/21 07/03/21 07/03/21 Range/Units 07:19 11:57 16:25 Lymphocytes # 0.9 L (1.0-4.8) k/uL PT (9.0-12.0) sec INR (<1.2) Sodium (137-145) mmol/L Chloride (98-107) mmol/L Carbon Dioxide (22-30) mmol/L BUN (9-20) mg/dL Creatinine (0.66-1.25) mg/dL Glucose (74-99) mg/dL POC Glucose (mg/dL) 150 H 135 H (75-99) mg/dL 07/03/21 07/04/21 07/04/21 Range/Units 20:08 06:13 06:30 Lymphocytes # (1.0-4.8) k/uL PT (9.0-12.0) sec INR (<1.2) Sodium 136 L (137-145) mmol/L Chloride 96 L (98-107) mmol/L Carbon Dioxide 33 H (22-30) mmol/L BUN 43 H (9-20) mg/dL Creatinine 1.80 H (0.66-1.25) mg/dL Glucose 114 H (74-99) mg/dL POC Glucose (mg/dL) 137 H 121 H (75-99) mg/dL 07/04/21 Range/Units 06:30 Lymphocytes # (1.0-4.8) k/uL PT 17.4 H (9.0-12.0) sec INR 1.8 H (<1.2) Sodium (137-145) mmol/L Chloride (98-107) mmol/L Carbon Dioxide (22-30) mmol/L BUN (9-20) mg/dL Creatinine (0.66-1.25) mg/dL Glucose (74-99) mg/dL POC Glucose (mg/dL) (75-99) mg/dL Microbiology - Last 24 Hours (Table) 07/03/21 17:48 Gram Stain - Preliminary Sputum Sputum Culture - Preliminary Assessment and Plan Plan: Fall at home with unclear history whether patient had a syncopal episode or loss of consciousness Episode of chest pain while in the ambulance Atrial fibrillation with rapid ventricular response. Patient started on amiodarone drip per cardiology Underlying history of paroxysmal atrial fibrillation, maintained on Coumadin however her INR was subtherapeutic at 1.2 on presentation, today INR is therapeutic at 2.7 Evidence of dehydration with electrolyte imbalance with hyponatremia and hyperkalemia Underlying history of chronic kidney disease Underlying history of onq-saxajfd-jgiwinmsz diabetes mellitus, no evidence of hypoglycemia Underlying history of hypertension Previous history of cerebellar stroke. Right basilar infiltrate suggestive of pneumonia, patient started on IV Zosyn, pulmonary consultation requested Dysphagia. PEG tube placement per Dr. ordonez Elevated liver enzymes. Lipitor DC'd. Liver ultrasound ordered DVT prophylaxis Coumadin. GI prophylaxis Pepcid Pulmonary, cardiology, nephrology and surgical services following Patient maintained on IV Zosyn s/p peg tube placement Repeat labs ordered PT OT services consulted Social work consulted for possible ECF placement Pulmonary services reconsulted for worsening chest x-ray Infectious disease consulted for worsening pneumonia
[2021-07-11 12:56] LABS: Band Neutrophils % 3 %; Eosinophils # (M) 0.73 k/uL (0-0.7); Lymphocytes # (M) 0.73 k/uL (1.0-4.8); Monocytes # (M) 0.82 k/uL (0-1.0); Neutrophils % (M) 72 %; Nucleated Red Blood Cells 0 /100 WBC (0-0); Total Cells Counted 100
[2021-07-11 13:37] LABS: INR 2.5 (<1.2); Prothrombin Time 24.7 sec (9.0-12.0)
--- NOTE | 2021-07-11 14:00 | P.PN ---
Subjective Progress Note Date: 07/11/21 Principal diagnosis: Elevated LFTs, biliary dilation 61-year-old male who is admitted after sustaining a fall for weakness. During his admission he was noted to have an acute spike in his LFTs. Since that time his LFTs have been trending down. They are almost to normal now. Likely related to acute ischemic hepatitis related to hypoperfusion or medication induced. Nonetheless the patient is doing well, he denies any abdominal pain, nausea, or vomiting. He is awaiting discharge to rehab. Acute hepatitis panel pending. Objective - Vital Signs Vital signs: Vital Signs Temp 97.8 F 07/11/21 07:44 Pulse 76 07/11/21 09:28 Resp 18 07/11/21 07:44 BP 129/80 07/11/21 07:44 Pulse Ox 99 07/11/21 07:44 Intake & Output 07/10/21 07/11/21 07/11/21 18:59 06:59 18:59 Intake Total 780 Output Total 1300 Balance -520 Weight 84 kg Intake: Tube Feeding 780 Output: Urine 1300 Coude 300 Other: Voiding Method Indwelling Catheter - Exam General appearance: The patient is alert, oriented, appears in no acute distress. HET: Head is normocephalic and atraumatic. Conjunctiva pink. Sclera anicteric. Neck: Supple without lymphadenopathy. Abdomen: Soft, nontender, nondistended with bowel sounds. PEG tube in place. No guarding or rigidity. Extremities: Normal skin color and turgor. No pedal edema Skin: No rashes, no jaundice Neurological: No focal deficits. Alert and oriented 3. - Labs CBC & Chem 7: 07/11/21 09:00 07/11/21 09:00 Labs: Abnormal Lab Results - Last 24 Hours (Table) 07/10/21 07/10/21 07/10/21 Range/Units 07:15 07:15 11:08 RBC 3.38 L (4.40-5.60) X 10*6/uL Hgb 11.8 L (13.0-17.0) g/dL Hct 38.3 L (39.6-50.0) % MCV 113.3 H (80.0-97.0) fL MCH 34.9 H (27.0-32.0) pg MCHC 30.8 L (32.0-37.0) g/dL RDW 17.9 H (11.5-14.5) % Basophils # 0.11 H (0.00-0.10) X 10*3/uL Macrocytosis Potassium 5.8 H (3.5-5.5) mmol/L Chloride 95 L (96-109) mmol/L Anion Gap 17.30 H (4.00-12.00) mmol/L BUN 43.8 H (9.0-27.0) mg/dL Creatinine 2.6 H (0.6-1.5) mg/dL Est GFR (CKD-EPI)AfAm 29.9 L (60.0-200.0) Est GFR (CKD-EPI)NonAf 25.8 L (60.0-200.0) POC Glucose (mg/dL) 134 H (75-99) mg/dL AST 44 H (14-35) U/L ALT 78 H (10-49) U/L Alkaline Phosphatase 132 H (41-126) U/L Albumin 3.6 L (3.8-4.9) g/dL Globulin 3.9 H (1.6-3.3) g/dL Albumin/Globulin Ratio 0.93 L (1.60-3.17) g/dL 07/10/21 07/11/21 07/11/21 Range/Units 18:05 00:34 05:58 RBC (4.40-5.60) X 10*6/uL Hgb (13.0-17.0) g/dL Hct (39.6-50.0) % MCV (80.0-97.0) fL MCH (27.0-32.0) pg MCHC (32.0-37.0) g/dL RDW (11.5-14.5) % Basophils # (0.00-0.10) X 10*3/uL Macrocytosis Potassium (3.5-5.5) mmol/L Chloride (96-109) mmol/L Anion Gap (4.00-12.00) mmol/L BUN (9.0-27.0) mg/dL Creatinine (0.6-1.5) mg/dL Est GFR (CKD-EPI)AfAm (60.0-200.0) Est GFR (CKD-EPI)NonAf (60.0-200.0) POC Glucose (mg/dL) 108 H 107 H 113 H (75-99) mg/dL AST (14-35) U/L ALT (10-49) U/L Alkaline Phosphatase (41-126) U/L Albumin (3.8-4.9) g/dL Globulin (1.6-3.3) g/dL Albumin/Globulin Ratio (1.60-3.17) g/dL 07/11/21 07/11/21 Range/Units 07:05 09:00 RBC 3.31 L (4.40-5.60) X 10*6/uL Hgb 11.8 L (13.0-17.0) g/dL Hct 37.5 L (39.6-50.0) % MCV 113.6 H (80.0-97.0) fL MCH 35.6 H (27.0-32.0) pg MCHC (32.0-37.0) g/dL RDW 16.6 H (11.5-14.5) % Basophils # (0.00-0.10) X 10*3/uL Macrocytosis Marked A Potassium (3.5-5.5) mmol/L Chloride (96-109) mmol/L Anion Gap (4.00-12.00) mmol/L BUN (9.0-27.0) mg/dL Creatinine (0.6-1.5) mg/dL Est GFR (CKD-EPI)AfAm (60.0-200.0) Est GFR (CKD-EPI)NonAf (60.0-200.0) POC Glucose (mg/dL) 117 H (75-99) mg/dL AST (14-35) U/L ALT (10-49) U/L Alkaline Phosphatase (41-126) U/L Albumin (3.8-4.9) g/dL Globulin (1.6-3.3) g/dL Albumin/Globulin Ratio (1.60-3.17) g/dL Assessment and Plan (1) Transaminitis Narrative/Plan: This is a 61-year-old male who presented to the emergency department several weeks ago after sustaining a fall. He has multiple comorbidities including previous CVA with dysphasia and recently had a PEG tube placed. He also was found to have atrial fibrillation with RVR and started on amiodarone drip. He had a spike in his AST and ALT and underwent a liver ultrasound that showed some minimal extrahepatic biliary dilationwith a normal CBD. Ultrasound did show enlarged liver, heterogeneously hyperechoic with prominent right hepatic lobe. There was shadowing mobile gallstones noted.he denies any previous history of liver disease, no history of hepatitis, or alcohol abuse. LFTs have continued to trend down and are almost in the normal range. Patients presentation is m sococonsisrubyt with acute ischemic hepatitis. He's never had any elevation in his bilirubin, no abdominal pain, making biliary obstruction less likely. Likely medication induced or hypoperfusion, patient was noted to have episode of hypotension which has resolved. LFTs continue to trend down, and are almost normal. Current Visit: Yes Status: Acute Code(s): R74.01 - ELEVATION OF LEVELS OF LIVER TRANSAMINASE LEVELS SNOMED Code(s): 929981599 (2) Dilation of biliary tract Narrative/Plan: This is a 61-year-old male who presented to the emergency department several weeks ago after sustaining a fall. He has multiple comorbidities including previous CVA with dysphasia and recently had a PEG tube placed. He also was found to have atrial fibrillation with RVR and started on amiodarone drip. He had a spike in his AST and ALT and underwent a liver ultrasound that showed some minimal extrahepatic biliary dilationwith a normal CBD. Ultrasound did show enlarged liver, heterogeneously hyperechoic with prominent right hepatic lobe. There was shadowing mobile gallstones noted.he denies any previous history of liver disease, no history of hepatitis, or alcohol abuse. LFTs have continued to trend down and are almost in the normal range. He's never had any elevation in his bilirubin, no abdominal pain, making biliary obstruction less likely. Current Visit: Yes Status: Acute Code(s): K83.8 - OTHER SPECIFIED DISEASES OF BILIARY TRACT SNOMED Code(s): 469368397 Plan: 1. Continue symptomatic and supportive care 2. Repeat CMP in the morning 3. Acute hepatitis panel ordered, pending 4. No plan on ERCP or MRCP 5. Avoid hepatotoxic medications 6. The patient is cleared by gastroenterology for discharge Thank you for this consultation, we will continue to follow. Dr. Nandini Villa I agree with the dictator's note, documented as a scribe by Fariba Carlson.
[2021-07-11] MEDS ORDERED: FUROSEMIDE 10 MG/ML 2 ML VIAL IV ONE (15:58)
[2021-07-11 16:48] LABS: Glucose,Whole Blood 100 mg/dL (75-99)
--- NOTE | 2021-07-11 17:11 | P.PN ---
Subjective Progress Note Date: 07/11/21 Everett Juárez, is a 61-year-old male patient of Dr. Jama, who presented to [facility] emergency room after sustaining a fall, and complaining of generalized weakness and dizziness, patient is not clear whether he passed out or had any loss of consciousness. Patient was also complaining of chest pain in the EMS, EKG was within normal limits and troponin level was less than 0.01 He was evaluated in the emergency room vital examination on presentation revealed a temperature of 97.4 pulse 71 respirations 16 blood pressure 87/50 pulse ox 94% on room air Laboratory data revealed a white blood count of 8.6 hemoglobin 12.0 platelet count 338 INR 1.2 sodium 128 potassium 6.2 chloride 99 CO2 22 BUN 17 creatinine 2.01 lactic acid on presentation 2.1 urine analysis did not reveal evidence of significant infection. Testing in the emergency room revealed EKG revealed normal sinus rhythm normal EKG chest x-ray done in the emergency room revealed no acute lung disease there was prominent pulmonary leon that could be related to adenopathy. 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 Patient was admitted to medical floor for further evaluation and treatment. Past medical history is significant for history of hypertension, history of hyperlipidemia, history of chronic kidney disease, history of asy-aqnaxhu-ihmbzxmnz diabetes mellitus, history of previous stroke, history of paroxysmal atrial fibrillation maintained on Coumadin, history of COPD, patient still smoke a few cigarettes per day, he denies alcohol use. On review of systems Patient is alert and responsive in no distress, he denies any complaints there is no fever or chills no headache or dizziness no chest pain no shortness of breath no palpitation no cough no nausea or vomiting no abdominal pain no diarrhea no blood in the stools no burning with urination no frequency or urgency and no hematuria, there is no weakness or numbness in any of the extremities no change in vision speech, gait was not tested. On 06/16/2021 patient was seen and examined on the telemetry floor he is alert and oriented 3 in no apparent distress he is still complaining of dizziness and weakness otherwise he denies any complaints there is no fever or chills no headache no chest pain no shortness of breath no cough no palpitation no nausea or vomiting no abdominal pain no diarrhea no blood in the stools no burning with urination no frequency or urgency and no hematuria there is no weakness or numbness in any of the extremities no change in vision or in speech On 06/17/2021 Patient was seen and examined on the medical floor, he is alert and oriented x 3 in no distress, he denies any complaints there is no fever or chills no headache or dizziness no chest pain no shortness of breath no palpitation no cough no nausea or vomiting no abdominal pain no diarrhea no blood in the stools no burning with urination no frequency or urgency and no hematuria, there is no weakness or numbness in any of the extremities no change in vision or speech, gait was not tested at this time, patient had significant orthostatic hypotension, this was discussed with cardiology, and dose of Catapres was adjusted down to 0.1 mg by mouth twice a day, patient will be reevaluated by cardiology in a.m. On 06/18/2021 patient was seen and examined on the medical floor, he is alert and oriented 3 in no distress, he is complaining of weakness otherwise he denies any specific complaints, there is no fever or chills no headache or dizziness no chest pain no shortness of breath no cough no nausea or vomiting no abdominal pain no diarrhea no blood in the stools no burning with urination no frequency or urgency no hematuria, there is no weakness or numbness in any of the extremities there is no change in vision speech or gait. Repeat orthostatic hypotension reveals significant drop while standing, cardiology are following, yesterday dose of Catapres was decreased to 0.1 by mouth twice daily, awaiting further recommendation from cardiology On 06/19/2021 patient was seen and examined on the medical floor, he is alert and oriented 3 in no distress, he is complaining of weakness otherwise he denies any specific complaints, he is still having significant orthostatic hypotension was significant drop in blood pressure when patient stands up. the re is no fever or chills no headache or dizziness no chest pain no shortness of breath no cough no nausea or vomiting no abdominal pain no diarrhea no blood in the stools no burning with urination no frequency or urgency no hematuria, there is no weakness or numbness in any of the extremities there is no change in vision speech or gait. Cardiology are following at this time Catapres is being discontinued and midodrine was added to medication regimen will continue to monitor closely. On 06/20/2021 patient was seen and examined on the medical floor he is alert and oriented 3 in no apparent distress, this morning he had an episode of palpitation and severe shortness of breath, EKG revealed SVT versus A. fib with RVR with a heart rate of 186 patient was transferred to [facility]. he was seen by [facility] rdiology and was started on IV amiodarone, chest x-ray was done today and was suspicious for right sided infiltrate suggestive of pneumonia patient is stating that he is having some cough with yellow sputum production WBC is low, patient was started on IV antibiotic Zosyn, and pulmonary consultation was requested. Patient denies any fever or chills no headache or dizziness no chest pain no nausea or vomiting no abdominal pain no diarrhea and no urinary symptoms. On 06/21/2021 patient was seen and examined on the medical floor he is complaining of cough otherwise he denies any complaints at this time there is no fever or chills no headache or dizziness no chest pain no shortness of breath no nausea or vomiting no abdominal pain no diarrhea no blood in the stools no burning with urination no frequency or urgency and no hematuria, yesterday patient had an episode of A. fib with RVR, he was started on IV amiodarone by cardiology and was transferred to telemetry floor, also chest x-ray revealed evidence of right basilar infiltrate, he was started on IV Zosyn pulmonary consultation was requested, sputum culture was ordered On 06/22/2021 Patient was seen and examined on the medical floor, he is alert and oriented x 3 in no distress, he is complaining of cough otherwise he denies any complaints there is no fever or chills no headache or dizziness no chest pain no shortness of breath no palpitation no cough no nausea or vomiting no abdominal pain no diarrhea no blood in the stools no burning with urination no frequency or urgency and no hematuria, there is no weakness or numbness in any of the extremities no change in vision speech or gait. Patient failed swallow evaluation with all food consistency today, he is kept nothing by mouth consultation for Dr. Zacarias for PEG tube placement was initiated. On 06/23/2021 patient is alert and oriented 3. Patient is resting comfortably in bed. Patient currently maintained on amiodarone drip per cardiology. Patient also maintained on IV Zosyn for aspiration pneumonia. Surgical services have been consulted for PEG tube placement. At this time pulmonary, cardiology, nephrology and surgical services following. Repeat labs have been ordered. Patient is still complaining of chest congestion and cough. Patient denies chest pain. Patient denies nausea vomiting or diarrhea. Patient denies any urinary burning or frequency. On 06/24/2021 Patient was seen and examined on the medical floor, he is alert and oriented x 3 in no distress, he denies any complaints there is no fever or chills no headache or dizziness no chest pain no shortness of breath no palpitation no cough no nausea or vomiting no abdominal pain no diarrhea no blood in the stools no burning with urination no frequency or urgency and no hematuria, there is no weakness or numbness in any of the extremities no change in vision speech, today INR is 5.3 Coumadin is on hold Will give 1 dose of vitamin K 2 mg IV patient is nothing by mouth , he is awaiting PEG tube placement On 06/24/2021 patient is alert and oriented 3 INR 1.2. Patient maintained on IV amiodarone. Tentative plans for PEG tube placement tomorrow per surgical services. . At this time patient remains with productive cough. Patient denies chest pain. Patient denies nausea vomiting or diarrhea. Patient denies any urinary burning or frequency On 06/26/2021 Patient was seen and examined on the medical floor, he is alert and oriented x 3 in no distress, he denies any complaints there is no fever or chills no headache or dizziness no chest pain no shortness of breath no palp itation no cough no nausea or vomiting no abdominal pain no diarrhea no blood in the stools no burning with urination no frequency or urgency and no hematuria, there is no weakness or numbness in any of the extremities no change in vision speech, patient received vitamin K his INR is low we are awaiting PEG tube placement On 06/27/2021 Patient was seen and examined on the medical floor, he is alert and oriented x 3 in no distress, he denies any complaints there is no fever or chills no headache or dizziness no chest pain no shortness of breath no palpitation no cough no nausea or vomiting no abdominal pain no diarrhea no blood in the stools no burning with urination no frequency or urgency and no hematuria, there is no weakness or numbness in any of the extremities no change in vision speech, Patient underwent PEG tube placement and was started on PEG tube feeding, will continue to follow closely will recheck chest x-ray in a.m. On 06/28/2021 patient alert and oriented 3. Repeat chest x-ray showing worsening interstitial edema with superimposed infiltrates versus atelectasis. Small pleural effusion. We'll reconsult pulmonary services. Patient remains on IV Zosyn. Patient does have PEG tube in place tube feeds running. At this time patient denies chest pain. Patient does report occasional cough with sputum production. Patient denies nausea vomiting or diarrhea. Patient denies any urinary burning or frequency. On 06/29/2021 patient was seen and examined on the telemetry floor, he is alert and oriented 3 in no distress, he is still complaining of shortness of breath and occasional cough, his chest x-ray done yesterday reveals worsening of the pulmonary infiltrate, he is still maintained on IV Zosyn, and is maintained on oxygen at 5 L via nasal cannula, pulmonary consultation was resubmitted yesterday for reevaluation and further advice regarding antibiotic treatment and further management of his pulmonary consultation, at this time patient is not ready yet for discharge to a rehab center, otherwise he denies any complaints there is no fever or chills no chest pain no nausea or vomiting no abdominal pain no diarrhea no blood in the stools and no urinary symptoms PEG tube site is clear. 06/30/2021 patient alert and oriented 3. Patient still having significant sputum production. Will order repeat sputum sample consults infectious disease services. Patient's liver enzymes also significantly elevated. Lipitor DC'd. Liver ultrasound will be ordered. Patient denies chest pain. Patient denies nausea vomiting or diarrhea. Patient denies any urinary burning or frequency On 07/01/2021 Patient was seen and examined on the medical floor, he is alert and oriented x 3 in no distress, he denies any complaints there is no fever or chills no headache or dizziness no chest pain no shortness of breath no palpitation no cough no nausea or vomiting no abdominal pain no diarrhea no blood in the stools no burning with urination no frequency or urgency and no hematuria, there is no weakness or numbness in any of the extremities no change in vision speech. Liver enzymes are quite elevated but are improving gradually, Lipitor was discontinued and Tylenol was discontinued, will continue to monitor On 07/02/2021 Patient is alert and oriented x 3 in no distress, he denies any complaints there is no fever or chills no headache or dizziness no chest pain no shortness of breath no palpitation no cough no nausea or vomiting no abdominal pain no diarrhea no blood in the stools no burning with urination no frequency or urgency and no hematuria, there is no weakness or numbness in any of the extremities no change in vision speech. Liver enzymes are quite elevated but are improving gradually, Lipitor was discontinued and Tylenol was discontinued, will continue to monitor, kidney function remains slightly elevated. On 07/03/2021 Patient was seen and examined on the medical floor, he is alert and oriented x 3 in no distress, he denies any complaints there is no fever or chills no headache or dizziness no chest pain no shortness of breath no palpitation no cough no nausea or vomiting no abdominal pain no diarrhea no blood in the stools no burning with urination no frequency or urgency and no hematuria, there is no weakness or numbness in any of the extremities no change in vision speech or gait. At this time liver enzymes are improving gradually will continue to monitor closely patient lost his IV access, will proceed with midline placement in a.m. On 07/04/2021 Patient is alert and oriented x 3 in no distress, he denies any complaints there is no fever or chills no headache or dizziness no chest pain no shortness of breath no palpitation no cough no nausea or vomiting no abdominal pain no diarrhea no blood in the stools no burning with urination no frequency or urgency and no hematuria, there is no weakness or numbness in any of the extremities no change in vision speech or gait. At this time liver enzymes are improving gradually will continue to monitor closely patient lost his IV access, will proceed with midline placement in a.m. on 07/05/2021 patient is alert and oriented 3. Chest CT completed showing b ilateral pleural effusions with right lower lobe infiltrate as well as patchy areas of infiltrate in the right upper lobe. Pulmonary and infectious disease services are following. Patient remains on Augmentin and Diflucan. Patient also maintained on IV Lasix. At this time patient denies chest pain. Patient denies nausea vomiting or diarrhea. Patient denies any urinary burning or frequency On 07/07/2021 patient is alert and oriented 3. Creatinine increasing to 2.16 and bun 39. Will add 250 mL of free water every 6 hours. Repeat chest x-ray ordered per pulmonary. Patient remains on Lasix. Pulmonary nephrology infectious disease service is following. At this time patient denies chest pain or shortness breath. Patient denies nausea vomiting or diarrhea. Patient denies any urinary burning or frequency On 07/08/2021 patient was seen and examined on the medical floor he is alert and oriented 3 in no apparent distress there is no fever or chills no headache or dizziness no chest pain no shortness of breath no cough no nausea or vomiting no abdominal pain no diarrhea no blood in the stools no burning with urination no frequency or urgency and no hematuria. He is receiving tube feeding via PEG tube, he is receiving physical therapy, possible transfer to a rehab unit early next week. On 07/09/2021 1 patient is alert and oriented 3. Creatinine increasing to 2.31 and bun 42. Potassium 5.5 nephrology services are following. Lasix has been DC'd per nephrology. Repeat labs will be ordered. Patient remains on tube feedings. Antibiotic Augmentin per ID patient being worked up for DC to ECF facility. At this time patient denies chest pain or shortness breath. Patient denies nausea vomiting or diarrhea. Patient denies any urinary burning or frequency On 07/10/2021 patient is alert and oriented 3. Patient was given IV Lasix history for elevated potassium per nephrology awaiting lab work to assess kidney function today. Patient has been cleared by pulmonary services but will likely stay due to worsening kidney function. This time patient denies chest pain or shortness of breath. Patient denies nausea vomiting or diarrhea. Patient denies any urinary burning or frequency On 07/11/2021 Patient was seen and examined on the medical floor, he is alert and oriented x 3 in no distress, he denies any complaints there is no fever or chills no headache or dizziness no chest pain no shortness of breath no palpitation no cough no nausea or vomiting no abdominal pain no diarrhea no blood in the stools no burning with urination no frequency or urgency and no hematuria, there is no weakness or numbness in any of the extremities no change in vision speech or gait. Patient is improving gradually will discuss with infectious disease. Possibility of discharge to rehab soon and antibiotic at the time of discharge Objective - Vital Signs Vital signs: Vital Signs Temp 97.9 F 07/11/21 13:50 Pulse 65 07/11/21 13:50 Resp 16 07/11/21 13:50 BP 143/76 07/11/21 13:50 Pulse Ox 98 07/11/21 13:50 Intake & Output 07/10/21 07/11/21 07/11/21 18:59 06:59 18:59 Intake Total 780 390 Output Total 1300 Balance -520 390 Weight 84 kg 87.6 kg Intake: Tube Feeding 780 390 Output: Urine 1300 Coude 300 Other: Voiding Method Indwelling Catheter Indwelling Catheter - Exam In general patient is alert and responsive in no distress HEENT head normocephalic and atraumatic Neck is supple no JVD no goiter no lymphadenopathy no carotid bruit Chest examination is clear to auscultation no crackles no wheezing Cardiac exam reveals regular heart sounds S1 and S2 no gallops no murmurs Abdomen is soft nontender no organomegaly with normal bowel sounds Extremity exam reveals no edema no cyanosis or clubbing Neurological examination reveals no gross focal deficits - Labs CBC & Chem 7: 07/11/21 09:00 07/11/21 09:00 Labs: Abnormal Lab Results - Last 24 Hours (Table) 07/10/21 07/10/21 07/11/21 Range/Units 07:15 18:05 00:34 RBC (4.30-5.90) m/uL Hgb (13.0-17.5) gm/dL Hct (39.0-53.0) % MCV (80.0-100.0) fL MCH (25.0-35.0) pg RDW (11.5-15.5) % Lymphocytes # (Manual) (1.0-4.8) k/uL Eosinophils # (Manual) (0-0.7) k/uL Macrocytosis PT (9.0-12.0) sec INR (<1.2) Sodium (137-145) mmol/L Potassium 5.8 H (3.5-5.5) mmol/L Chloride 95 L (96-109) mmol/L Carbon Dioxide (22-30) mmol/L Anion Gap 17.30 H (4.00-12.00) mmol/L BUN 43.8 H (9.0-27.0) mg/dL Creatinine 2.6 H (0.6-1.5) mg/dL Est GFR (CKD-EPI)AfAm 29.9 L (60.0-200.0) Est GFR (CKD-EPI)NonAf 25.8 L (60.0-200.0) Glucose (74-99) mg/dL POC Glucose (mg/dL) 108 H 107 H (75-99) mg/dL AST 44 H (14-35) U/L ALT 78 H (10-49) U/L Alkaline Phosphatase 132 H (41-126) U/L Albumin 3.6 L (3.8-4.9) g/dL Globulin 3.9 H (1.6-3.3) g/dL Albumin/Globulin Ratio 0.93 L (1.60-3.17) g/dL 07/11/21 07/11/21 07/11/21 Range/Units 05:58 07:05 09:00 RBC 3.31 L (4.30-5.90) m/uL Hgb 11.8 L (13.0-17.5) gm/dL Hct 37.5 L (39.0-53.0) % MCV 113.6 H (80.0-100.0) fL MCH 35.6 H (25.0-35.0) pg RDW 16.6 H (11.5-15.5) % Lymphocytes # (Manual) 0.73 L (1.0-4.8) k/uL Eosinophils # (Manual) 0.73 H (0-0.7) k/uL Macrocytosis Marked A PT (9.0-12.0) sec INR (<1.2) Sodium (137-145) mmol/L Potassium (3.5-5.5) mmol/L Chloride (96-109) mmol/L Carbon Dioxide (22-30) mmol/L Anion Gap (4.00-12.00) mmol/L BUN (9.0-27.0) mg/dL Creatinine (0.6-1.5) mg/dL Est GFR (CKD-EPI)AfAm (60.0-200.0) Est GFR (CKD-EPI)NonAf (60.0-200.0) Glucose (74-99) mg/dL POC Glucose (mg/dL) 113 H 117 H (75-99) mg/dL AST (14-35) U/L ALT (10-49) U/L Alkaline Phosphatase (41-126) U/L Albumin (3.8-4.9) g/dL Globulin (1.6-3.3) g/dL Albumin/Globulin Ratio (1.60-3.17) g/dL 07/11/21 07/11/21 07/11/21 Range/Units 09:00 11:35 12:49 RBC (4.30-5.90) m/uL Hgb (13.0-17.5) gm/dL Hct (39.0-53.0) % MCV (80.0-100.0) fL MCH (25.0-35.0) pg RDW (11.5-15.5) % Lymphocytes # (Manual) (1.0-4.8) k/uL Eosinophils # (Manual) (0-0.7) k/uL Macrocytosis PT 24.7 H (9.0-12.0) sec INR 2.5 H (<1.2) Sodium 135 L (137-145) mmol/L Potassium 5.8 H (3.5-5.5) mmol/L Chloride 95 L (96-109) mmol/L Carbon Dioxide 31 H (22-30) mmol/L Anion Gap (4.00-12.00) mmol/L BUN 48 H (9.0-27.0) mg/dL Creatinine 2.37 H (0.6-1.5) mg/dL Est GFR (CKD-EPI)AfAm (60.0-200.0) Est GFR (CKD-EPI)NonAf (60.0-200.0) Glucose 101 H (74-99) mg/dL POC Glucose (mg/dL) 102 H (75-99) mg/dL AST (14-35) U/L ALT (10-49) U/L Alkaline Phosphatase (41-126) U/L Albumin (3.8-4.9) g/dL Globulin (1.6-3.3) g/dL Albumin/Globulin Ratio (1.60-3.17) g/dL Assessment and Plan Plan: Fall at home with unclear history whether patient had a syncopal episode or loss of consciousness Episode of chest pain while in the ambulance Atrial fibrillation with rapid ventricular response. Patient started on amiodarone ip per cardiology Underlying history of paroxysmal atrial fibrillation, maintained on Coumadin however her INR was subtherapeutic at 1.2 on presentation, today INR is therapeutic at 2.7 Evidence of dehydration with electrolyte imbalance with hyponatremia and hyperkalemia Underlying history of chronic kidney disease Underlying history of aye-ilvtwtk-ksjepsawc diabetes mellitus, no evidence of hypoglycemia Underlying history of hypertension Previous history of cerebellar stroke. Right basilar infiltrate suggestive of pneumonia, patient started on IV Zosyn, pulmonary consultation requested Dysphagia. PEG tube placement per Dr. ordonez Elevated liver enzymes. Lipitor DC'd. Liver ultrasound ordered DVT prophylaxis Coumadin. GI prophylaxis Pepcid Pulmonary, cardiology, nephrology and surgical services following Patient maintained on IV Zosyn s/p peg tube placement Repeat labs ordered PT OT services consulted Social work consulted for possible ECF placement Pulmonary services reconsulted for worsening chest x-ray Infectious disease consulted for worsening pneumonia
--- NOTE | 2021-07-11 17:38 | PN ---
PROGRESS NOTE Patient is seen for followup for acute kidney injury. His creatinine had jumped up to 2.6 yesterday. Today it is back down to 2.37. Patient has an indwelling Lara catheter. Potassium is staying elevated at 5.8 mEq/L. Patient denies any significant complaints. As mentioned, he has a Lara catheter and is currently not on any IV fluids. Lasix was held a few days ago. On examination today, blood pressure 143/76, heart rate 65 per minute. He is afebrile. EXAMINATION OF THE HEART: S1 and S2. EXAMINATION OF LUNGS: Decreased breath sounds at the bases. Abdomen is soft, non-tender. Examination of lower extremities shows no significant edema. MANAGER MSW EXAM: Grossly intact. Labs show hemoglobin 11.8, sodium 135, potassium 5.8, chloride 95, CO2 31, BUN 48, serum creatinine 2.37. ASSESSMENT: 1. Acute kidney injury, acute tubular necrosis, currently nonoliguric. Patient also had urine retention. He has an indwelling Lara catheter, which I will continue. Serum creatinine slightly improved from yesterday. UA has been benign. 2. Chronic kidney disease, stage 3. Baseline creatinine 1.6 to 2 with solitary kidney and obstructive uropathy with history of previous left nephrectomy and left nephrostomy tube which was eventually removed. 3. Volume overload, improved with diuresis. 4. Hyperkalemia associated with acute kidney injury. This had improved. Potassium is elevated again. He will need low-dose loop diuretics. There is no evidence of metabolic acidosis. I will make sure the tube feeding is Nepro. Continue with the Lara catheter due to urine retention. Avoid use of Kayexalate if possible. 5. Chronic diastolic congestive heart failure with severe pulmonary hypertension. 6. Atrial fibrillation with rapid ventricular response, maintained on amiodarone and Lopressor. Heart rate is better controlled. PLAN: Lasix IV x1. Repeat potassium in a.m. We will also make sure the tube feeding is Nepro. MMODL / IJN: [id number] /
[2021-07-11] MEDS ORDERED: WARFARIN 3 MG TAB PO ONE (18:00)
[2021-07-11 23:59] LABS: Glucose,Whole Blood 110 mg/dL (75-99)
--- NOTE | 2021-07-12 05:55 | PN ---
PROGRESS NOTE DATE OF SERVICE: 07/11/2021 REASON FOR FOLLOWUP: Pneumonia. INTERVAL HISTORY: The patient is afebrile. The patient is currently breathing comfortably. Denies having any chest pain or shortness of breath. Occasional cough. No abdominal pain. No diarrhea. PHYSICAL EXAMINATION: Blood pressure 153/79, pulse of 66, temperature 98.2. He is 100% on 2 L nasal cannula. General description is a middle-aged male lying in bed in no distress. Respiratory system: Unlabored breathing, decreased intensity of breath sounds. No wheeze. Heart S1, S2. Regular rate and rhythm. Abdomen soft, no tenderness. LABS: Hemoglobin is 11.1, white count 9.1. BUN of 48, creatinine is 2.37. DIAGNOSTIC IMPRESSION AND PLAN: Patient with aspiration pneumonia that has been adequately treated, has completed antibiotic therapy, currently being monitored closely off antibiotic. Did have slight worsening of his kidney function for which the patient being monitored by Nephrology. Continue supportive care. MMODL / IJN: [id number] /
[2021-07-12] MEDS: INSULIN ASPART (NovoLOG) 100 UNIT/ML VIAL SQ SCH ×3 (06:10→17:10)
[2021-07-12 06:11] LABS: Glucose,Whole Blood 113 mg/dL (75-99)
[2021-07-12 07:53] LABS: ALT 58 U/L (4-49); AST 47 U/L (17-59); African American GFR (CKD) 31 (>60 ml/min/1.73 sqM); Albumin 3.6 g/dL (3.5-5.0); Albumin/Globulin Ratio 0.9; Alkaline Phosphatase 133 U/L (38-126); Anion Gap 9 mmol/L; Blood Urea Nitrogen 47 mg/dL (9-20); Calcium 9.9 mg/dL (8.4-10.2); Carbon Dioxide 30 mmol/L (22-30); Chloride 95 mmol/L (98-107); Glucose 105 mg/dL (74-99); Non-African American GFR(CKD) 27 (>60 ml/min/1.73 sqM); Potassium 5.8 mmol/L (3.5-5.1); Sodium 134 mmol/L (137-145); Total Bilirubin 0.6 mg/dL (0.2-1.3); Total Protein 7.6 g/dL (6.3-8.2)
[2021-07-12] MEDS: FLUCONAZOLE ORAL SUSP 1,400 MG/35 ML BOTTLE PO SCH (07:58)
[2021-07-12] MEDS: AMIODARONE 200 MG TAB PO SCH ×2 (07:58→20:47)
[2021-07-12] MEDS: CYANOCOBALAMIN 500 MCG TAB PO SCH (07:58)
[2021-07-12] MEDS: VENLAFAXINE HCL 75 MG TAB PO SCH ×2 (07:58→20:48)
[2021-07-12] MEDS: FOLIC ACID 1 MG TAB PO SCH (07:58)
[2021-07-12] MEDS: FAMOTIDINE 20 MG TAB PO SCH (07:58)
[2021-07-12] MEDS: METOPROLOL TARTRATE 25 MG TAB PO SCH ×3 (07:58→20:47)
[2021-07-12] MEDS: MIDODRINE 5 MG TAB PO SCH ×3 (07:58→17:10)
[2021-07-12 08:05] LABS: INR 2.3 (<1.2); Prothrombin Time 22.4 sec (9.0-12.0)
[2021-07-12] MEDS: SYMBICORT 160-4.5 MCG INHALER INHALATION SCH ×2 (08:12→18:46)
[2021-07-12] MEDS: IPRATROPIUM-ALBUTEROL 3 ML NEB INHALATION SCH ×4 (08:12→18:47)
[2021-07-12 08:31] LABS: Hepatitis A Antibody IgM Nonreactive (Nonreactive); Hepatitis B Core IgM Nonreactive (Nonreactive); Hepatitis C IgG Antibody Nonreactive (Nonreactive)
--- NOTE | 2021-07-12 09:54 | P.PN ---
Subjective Progress Note Date: 07/12/21 Everett Juárez, is a 61-year-old male patient of Dr. Jama, who presented to [facility] emergency room after sustaining a fall, and complaining of generalized weakness and dizziness, patient is not clear whether he passed out or had any loss of consciousness. Patient was also complaining of chest pain in the EMS, EKG was within normal limits and troponin level was less than 0.01 He was evaluated in the emergency room vital examination on presentation revealed a temperature of 97.4 pulse 71 respirations 16 blood pressure 87/50 pulse ox 94% on room air Laboratory data revealed a white blood count of 8.6 hemoglobin 12.0 platelet count 338 INR 1.2 sodium 128 potassium 6.2 chloride 99 CO2 22 BUN 17 creatinine 2.01 lactic acid on presentation 2.1 urine analysis did not reveal evidence of significant infection. Testing in the emergency room revealed EKG revealed normal sinus rhythm normal EKG chest x-ray done in the emergency room revealed no acute lung disease there was prominent pulmonary leon that could be related to adenopathy. 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 Patient was admitted to medical floor for further evaluation and treatment. Past medical history is significant for history of hypertension, history of hyperlipidemia, history of chronic kidney disease, history of [id number] diabetes mellitus, history of previous stroke, history of paroxysmal atrial fibrillation maintained on Coumadin, history of COPD, patient still smoke a few cigarettes per day, he denies alcohol use. On review of systems Patient is alert and responsive in no distress, he denies any complaints there is no fever or chills no headache or dizziness no chest pain no shortness of breath no palpitation no cough no nausea or vomiting no abdominal pain no diarrhea no blood in the stools no burning with urination no frequency or urgency and no hematuria, there is no weakness or numbness in any of the extremities no change in vision speech, gait was not tested. On 06/16/2021 patient was seen and examined on the telemetry floor he is alert and oriented 3 in no apparent distress he is still complaining of dizziness and weakness otherwise he denies any complaints there is no fever or chills no headache no chest pain no shortness of breath no cough no palpitation no nausea or vomiting no abdominal pain no diarrhea no blood in the stools no burning with urination no frequency or urgency and no hematuria there is no weakness or numbness in any of the extremities no change in vision or in speech On 06/17/2021 Patient was seen and examined on the medical floor, he is alert and oriented x 3 in no distress, he denies any complaints there is no fever or chills no headache or dizziness no chest pain no shortness of breath no palpitation no cough no nausea or vomiting no abdominal pain no diarrhea no blood in the stools no burning with urination no frequency or urgency and no hematuria, there is no weakness or numbness in any of the extremities no change in vision or speech, gait was not tested at this time, patient had significant orthostatic hypotension, this was discussed with cardiology, and dose of Catapres was adjusted down to 0.1 mg by mouth twice a day, patient will be reevaluated by cardiology in a.m. On 06/18/2021 patient was seen and examined on the medical floor, he is alert and oriented 3 in no distress, he is complaining of weakness otherwise he denies any specific complaints, there is no fever or chills no headache or dizziness no chest pain no shortness of breath no cough no nausea or vomiting no abdominal pain no diarrhea no blood in the stools no burning with urination no frequency or urgency no hematuria, there is no weakness or numbness in any of the extremities there is no change in vision speech or gait. Repeat orthostatic hypotension reveals significant drop while standing, cardiology are following, yesterday dose of Catapres was decreased to 0.1 by mouth twice daily, awaiting further recommendation from cardiology On 06/19/2021 patient was seen and examined on the medical floor, he is alert and oriented 3 in no distress, he is complaining of weakness otherwise he denies any specific complaints, he is still having significant orthostatic hypotension was significant drop in blood pressure when patient stands up. the re is no fever or chills no headache or dizziness no chest pain no shortness of breath no cough no nausea or vomiting no abdominal pain no diarrhea no blood in the stools no burning with urination no frequency or urgency no hematuria, there is no weakness or numbness in any of the extremities there is no change in vision speech or gait. Cardiology are following at this time Catapres is being discontinued and midodrine was added to medication regimen will continue to monitor closely. On 06/20/2021 patient was seen and examined on the medical floor he is alert and oriented 3 in no apparent distress, this morning he had an episode of palpitation and severe shortness of breath, EKG revealed SVT versus A. fib with RVR with a heart rate of 186 patient was transferred to [facility]. he was seen by [facility] rdiology and was started on IV amiodarone, chest x-ray was done today and was suspicious for right sided infiltrate suggestive of pneumonia patient is stating that he is having some cough with yellow sputum production WBC is low, patient was started on IV antibiotic Zosyn, and pulmonary consultation was requested. Patient denies any fever or chills no headache or dizziness no chest pain no nausea or vomiting no abdominal pain no diarrhea and no urinary symptoms. On 06/21/2021 patient was seen and examined on the medical floor he is complaining of cough otherwise he denies any complaints at this time there is no fever or chills no headache or dizziness no chest pain no shortness of breath no nausea or vomiting no abdominal pain no diarrhea no blood in the stools no burning with urination no frequency or urgency and no hematuria, yesterday patient had an episode of A. fib with RVR, he was started on IV amiodarone by cardiology and was transferred to telemetry floor, also chest x-ray revealed evidence of right basilar infiltrate, he was started on IV Zosyn pulmonary consultation was requested, sputum culture was ordered On 06/22/2021 Patient was seen and examined on the medical floor, he is alert and oriented x 3 in no distress, he is complaining of cough otherwise he denies any complaints there is no fever or chills no headache or dizziness no chest pain no shortness of breath no palpitation no cough no nausea or vomiting no abdominal pain no diarrhea no blood in the stools no burning with urination no frequency or urgency and no hematuria, there is no weakness or numbness in any of the extremities no change in vision speech or gait. Patient failed swallow evaluation with all food consistency today, he is kept nothing by mouth consultation for Dr. Zacarias for PEG tube placement was initiated. On 06/23/2021 patient is alert and oriented 3. Patient is resting comfortably in bed. Patient currently maintained on amiodarone drip per cardiology. Patient also maintained on IV Zosyn for aspiration pneumonia. Surgical services have been consulted for PEG tube placement. At this time pulmonary, cardiology, nephrology and surgical services following. Repeat labs have been ordered. Patient is still complaining of chest congestion and cough. Patient denies chest pain. Patient denies nausea vomiting or diarrhea. Patient denies any urinary burning or frequency. On 06/24/2021 Patient was seen and examined on the medical floor, he is alert and oriented x 3 in no distress, he denies any complaints there is no fever or chills no headache or dizziness no chest pain no shortness of breath no palpitation no cough no nausea or vomiting no abdominal pain no diarrhea no blood in the stools no burning with urination no frequency or urgency and no hematuria, there is no weakness or numbness in any of the extremities no change in vision speech, today INR is 5.3 Coumadin is on hold Will give 1 dose of vitamin K 2 mg IV patient is nothing by mouth , he is awaiting PEG tube placement On 06/24/2021 patient is alert and oriented 3 INR 1.2. Patient maintained on IV amiodarone. Tentative plans for PEG tube placement tomorrow per surgical services. . At this time patient remains with productive cough. Patient denies chest pain. Patient denies nausea vomiting or diarrhea. Patient denies any urinary burning or frequency On 06/26/2021 Patient was seen and examined on the medical floor, he is alert and oriented x 3 in no distress, he denies any complaints there is no fever or chills no headache or dizziness no chest pain no shortness of breath no palp itation no cough no nausea or vomiting no abdominal pain no diarrhea no blood in the stools no burning with urination no frequency or urgency and no hematuria, there is no weakness or numbness in any of the extremities no change in vision speech, patient received vitamin K his INR is low we are awaiting PEG tube placement On 06/27/2021 Patient was seen and examined on the medical floor, he is alert and oriented x 3 in no distress, he denies any complaints there is no fever or chills no headache or dizziness no chest pain no shortness of breath no palpitation no cough no nausea or vomiting no abdominal pain no diarrhea no blood in the stools no burning with urination no frequency or urgency and no hematuria, there is no weakness or numbness in any of the extremities no change in vision speech, Patient underwent PEG tube placement and was started on PEG tube feeding, will continue to follow closely will recheck chest x-ray in a.m. On 06/28/2021 patient alert and oriented 3. Repeat chest x-ray showing worsening interstitial edema with superimposed infiltrates versus atelectasis. Small pleural effusion. We'll reconsult pulmonary services. Patient remains on IV Zosyn. Patient does have PEG tube in place tube feeds running. At this time patient denies chest pain. Patient does report occasional cough with sputum production. Patient denies nausea vomiting or diarrhea. Patient denies any urinary burning or frequency. On 06/29/2021 patient was seen and examined on the telemetry floor, he is alert and oriented 3 in no distress, he is still complaining of shortness of breath and occasional cough, his chest x-ray done yesterday reveals worsening of the pulmonary infiltrate, he is still maintained on IV Zosyn, and is maintained on oxygen at 5 L via nasal cannula, pulmonary consultation was resubmitted yesterday for reevaluation and further advice regarding antibiotic treatment and further management of his pulmonary consultation, at this time patient is not ready yet for discharge to a rehab center, otherwise he denies any complaints there is no fever or chills no chest pain no nausea or vomiting no abdominal pain no diarrhea no blood in the stools and no urinary symptoms PEG tube site is clear. 06/30/2021 patient alert and oriented 3. Patient still having significant sputum production. Will order repeat sputum sample consults infectious disease services. Patient's liver enzymes also significantly elevated. Lipitor DC'd. Liver ultrasound will be ordered. Patient denies chest pain. Patient denies nausea vomiting or diarrhea. Patient denies any urinary burning or frequency On 07/01/2021 Patient was seen and examined on the medical floor, he is alert and oriented x 3 in no distress, he denies any complaints there is no fever or chills no headache or dizziness no chest pain no shortness of breath no palpitation no cough no nausea or vomiting no abdominal pain no diarrhea no blood in the stools no burning with urination no frequency or urgency and no hematuria, there is no weakness or numbness in any of the extremities no change in vision speech. Liver enzymes are quite elevated but are improving gradually, Lipitor was discontinued and Tylenol was discontinued, will continue to monitor On 07/02/2021 Patient is alert and oriented x 3 in no distress, he denies any complaints there is no fever or chills no headache or dizziness no chest pain no shortness of breath no palpitation no cough no nausea or vomiting no abdominal pain no diarrhea no blood in the stools no burning with urination no frequency or urgency and no hematuria, there is no weakness or numbness in any of the extremities no change in vision speech. Liver enzymes are quite elevated but are improving gradually, Lipitor was discontinued and Tylenol was discontinued, will continue to monitor, kidney function remains slightly elevated. On 07/03/2021 Patient was seen and examined on the medical floor, he is alert and oriented x 3 in no distress, he denies any complaints there is no fever or chills no headache or dizziness no chest pain no shortness of breath no palpitation no cough no nausea or vomiting no abdominal pain no diarrhea no blood in the stools no burning with urination no frequency or urgency and no hematuria, there is no weakness or numbness in any of the extremities no change in vision speech or gait. At this time liver enzymes are improving gradually will continue to monitor closely patient lost his IV access, will proceed with midline placement in a.m. On 07/04/2021 Patient is alert and oriented x 3 in no distress, he denies any complaints there is no fever or chills no headache or dizziness no chest pain no shortness of breath no palpitation no cough no nausea or vomiting no abdominal pain no diarrhea no blood in the stools no burning with urination no frequency or urgency and no hematuria, there is no weakness or numbness in any of the extremities no change in vision speech or gait. At this time liver enzymes are improving gradually will continue to monitor closely patient lost his IV access, will proceed with midline placement in a.m. on 07/05/2021 patient is alert and oriented 3. Chest CT completed showing b ilateral pleural effusions with right lower lobe infiltrate as well as patchy areas of infiltrate in the right upper lobe. Pulmonary and infectious disease services are following. Patient remains on Augmentin and Diflucan. Patient also maintained on IV Lasix. At this time patient denies chest pain. Patient denies nausea vomiting or diarrhea. Patient denies any urinary burning or frequency On 07/07/2021 patient is alert and oriented 3. Creatinine increasing to 2.16 and bun 39. Will add 250 mL of free water every 6 hours. Repeat chest x-ray ordered per pulmonary. Patient remains on Lasix. Pulmonary nephrology infectious disease service is following. At this time patient denies chest pain or shortness breath. Patient denies nausea vomiting or diarrhea. Patient denies any urinary burning or frequency On 07/08/2021 patient was seen and examined on the medical floor he is alert and oriented 3 in no apparent distress there is no fever or chills no headache or dizziness no chest pain no shortness of breath no cough no nausea or vomiting no abdominal pain no diarrhea no blood in the stools no burning with urination no frequency or urgency and no hematuria. He is receiving tube feeding via PEG tube, he is receiving physical therapy, possible transfer to a rehab unit early next week. On 07/09/2021 1 patient is alert and oriented 3. Creatinine increasing to 2.31 and bun 42. Potassium 5.5 nephrology services are following. Lasix has been DC'd per nephrology. Repeat labs will be ordered. Patient remains on tube feedings. Antibiotic Augmentin per ID patient being worked up for DC to ECF facility. At this time patient denies chest pain or shortness breath. Patient denies nausea vomiting or diarrhea. Patient denies any urinary burning or frequency On 07/10/2021 patient is alert and oriented 3. Patient was given IV Lasix history for elevated potassium per nephrology awaiting lab work to assess kidney function today. Patient has been cleared by pulmonary services but will likely stay due to worsening kidney function. This time patient denies chest pain or shortness of breath. Patient denies nausea vomiting or diarrhea. Patient denies any urinary burning or frequency On 07/11/2021 Patient was seen and examined on the medical floor, he is alert and oriented x 3 in no distress, he denies any complaints there is no fever or chills no headache or dizziness no chest pain no shortness of breath no palpitation no cough no nausea or vomiting no abdominal pain no diarrhea no blood in the stools no burning with urination no frequency or urgency and no hematuria, there is no weakness or numbness in any of the extremities no change in vision speech or gait. Patient is improving gradually will discuss with infectious disease. Possibility of discharge to rehab soon and antibiotic at the time of discharge On 07/12/2021 patient alert and oriented 3. Creatinine 2.51, bun 47 and potassium 5.8. Patient did receive 1 dose of IV Lasix yesterday. Awaiting nephrology recommendation. Patient has completed antibiotic course. No need for antibiotics per infectious disease this time patient denies chest pain. Patient denies nausea vomiting or diarrhea. Patient denies any urinary burning or frequency Objective - Vital Signs Vital signs: Vital Signs Temp 98.3 F 07/12/21 08:06 Pulse 70 07/12/21 08:21 Resp 17 07/12/21 08:06 BP 133/68 07/12/21 08:06 Pulse Ox 94 L 07/12/21 08:06 Intake & Output 07/11/21 07/12/21 07/12/21 18:59 06:59 18:59 Intake Total 390 240 240 Output Total 975 900 Balance -585 -660 240 Weight 87.6 kg 82 kg Intake: Tube Feeding 390 240 240 Output: Urine 975 900 Other: Voiding Method Indwelling Catheter Indwelling Catheter Indwelling Catheter - Exam In general patient is alert and responsive in no distress HEENT head normocephalic and atraumatic Neck is supple no JVD no goiter no lymphadenopathy no carotid bruit Chest examination is clear to auscultation no crackles no wheezing Cardiac exam reveals regular heart sounds S1 and S2 no gallops no murmurs Abdomen is soft nontender no organomegaly with normal bowel sounds Extremity exam reveals no edema no cyanosis or clubbing Neurological examination reveals no gross focal deficits - Labs CBC & Chem 7: 07/11/21 09:00 07/12/21 06:42 Labs: Abnormal Lab Results - Last 24 Hours (Table) 07/11/21 07/11/21 07/11/21 Range/Units 09:00 09:00 11:35 RBC 3.31 L (4.30-5.90) m/uL Hgb 11.8 L (13.0-17.5) gm/dL Hct 37.5 L (39.0-53.0) % MCV 113.6 H (80.0-100.0) fL MCH 35.6 H (25.0-35.0) pg RDW 16.6 H (11.5-15.5) % Lymphocytes # (Manual) 0.73 L (1.0-4.8) k/uL Eosinophils # (Manual) 0.73 H (0-0.7) k/uL Macrocytosis Marked A PT (9.0-12.0) sec INR (<1.2) Sodium 135 L (137-145) mmol/L Potassium 5.8 H (3.5-5.1) mmol/L Chloride 95 L (98-107) mmol/L Carbon Dioxide 31 H (22-30) mmol/L BUN 48 H (9-20) mg/dL Creatinine 2.37 H (0.66-1.25) mg/dL Glucose 101 H (74-99) mg/dL POC Glucose (mg/dL) 102 H (75-99) mg/dL ALT (4-49) U/L Alkaline Phosphatase (38-126) U/L 07/11/21 07/11/21 07/11/21 Range/Units 12:49 16:46 23:57 RBC (4.30-5.90) m/uL Hgb (13.0-17.5) gm/dL Hct (39.0-53.0) % MCV (80.0-100.0) fL MCH (25.0-35.0) pg RDW (11.5-15.5) % Lymphocytes # (Manual) (1.0-4.8) k/uL Eosinophils # (Manual) (0-0.7) k/uL Macrocytosis PT 24.7 H (9.0-12.0) sec INR 2.5 H (<1.2) Sodium (137-145) mmol/L Potassium (3.5-5.1) mmol/L Chloride (98-107) mmol/L Carbon Dioxide (22-30) mmol/L BUN (9-20) mg/dL Creatinine (0.66-1.25) mg/dL Glucose (74-99) mg/dL POC Glucose (mg/dL) 100 H 110 H (75-99) mg/dL ALT (4-49) U/L Alkaline Phosphatase (38-126) U/L 07/12/21 07/12/21 07/12/21 Range/Units 06:09 06:42 06:42 RBC (4.30-5.90) m/uL Hgb (13.0-17.5) gm/dL Hct (39.0-53.0) % MCV (80.0-100.0) fL MCH (25.0-35.0) pg RDW (11.5-15.5) % Lymphocytes # (Manual) (1.0-4.8) k/uL Eosinophils # (Manual) (0-0.7) k/uL Macrocytosis PT 22.4 H (9.0-12.0) sec INR 2.3 H (<1.2) Sodium 134 L (137-145) mmol/L Potassium 5.8 H (3.5-5.1) mmol/L Chloride 95 L (98-107) mmol/L Carbon Dioxide (22-30) mmol/L BUN 47 H (9-20) mg/dL Creatinine 2.51 H (0.66-1.25) mg/dL Glucose 105 H (74-99) mg/dL POC Glucose (mg/dL) 113 H (75-99) mg/dL ALT 58 H (4-49) U/L Alkaline Phosphatase 133 H (38-126) U/L Assessment and Plan Plan: Fall at home with unclear history whether patient had a syncopal episode or loss of consciousness Episode of chest pain while in the ambulance Atrial fibrillation with rapid ventricular response. Underlying history of paroxysmal atrial fibrillation, maintained on Coumadin Evidence of dehydration with electrolyte imbalance with hyponatremia and hyperkalemia Underlying history of chronic kidney disease Underlying history of [id number] diabetes mellitus, no evidence of hypoglycemia Underlying history of hypertension Previous history of cerebellar stroke. Right basilar infiltrate suggestive of pneumonia completed course of antibiotic Dysphagia. PEG tube placement per Dr. ordonez Elevated liver enzymes. Lipitor DC'd. Liver numbers improved Acute kidney injury with hyperkalemia. Nephrology services are following. IV Lasix given. Repeat labs ordered DVT prophylaxis Coumadin. GI prophylaxis Pepcid Pulmonary, cardiology, nephrology and surgical services following s/p peg tube placement Repeat labs ordered PT OT services consulted Social work consulted for possible ECF placement Per ID no need for antibiotics upon discharge completed course of antibiotics
--- NOTE | 2021-07-12 11:20 | US ---
EXAMINATION TYPE: US kidneys/renal and bladder DATE OF EXAM: 07/12/2021 COMPARISON: US renal June 16, 2021. CT abdomen and pelvis November 14, 2020 CLINICAL HISTORY: hydronephrosis. EXAM MEASUREMENTS: Right Kidney: 11.4 x 4.8 x 6.4 cm Left Kidney: Surgically absent cm Right Kidney: No hydronephrosis or masses seen Left Kidney: Surgically absent Bladder: not seen, patient has catheter Bilateral Jets seen: No Left kidney not seen and may be surgically absent. IMPRESSION: No hydronephrosis in the right kidney.
[2021-07-12 11:41] LABS: Glucose,Whole Blood 123 mg/dL (75-99)
[2021-07-12] MEDS ORDERED: SODIUM POLYSTYRENE SULFONATE 15 GM/60 ML BOTTLE PO ONE (12:15)
--- NOTE | 2021-07-12 12:32 | P.PN ---
Subjective Progress Note Date: 07/12/21 Principal diagnosis: Elevated LFTs, biliary dilation 61-year-old male who is admitted after sustaining a fall for weakness. During his admission he was noted to have an acute spike in his LFTs. Since that time his LFTs have been trending down. Likely related to acute ischemic hepatitis related to hypoperfusion or medication induced. Nonetheless the patient is doing well, he denies any abdominal pain, nausea, or vomiting. He is awaiting discharge to rehab. Acute hepatitis panel non-reactive. LFTS continue to trend down, total bilirubin 0.6, AST 47, ALT 133 Alk Phos 133 Objective - Vital Signs Vital signs: Vital Signs Temp 98.3 F 07/12/21 08:06 Pulse 70 07/12/21 08:21 Resp 17 07/12/21 08:06 BP 133/68 07/12/21 08:06 Pulse Ox 94 L 07/12/21 08:06 Intake & Output 07/11/21 07/12/21 07/12/21 18:59 06:59 18:59 Intake Total 390 240 240 Output Total 975 900 Balance -585 -660 240 Weight 87.6 kg 82 kg Intake: Tube Feeding 390 240 240 Output: Urine 975 900 Other: Voiding Method Indwelling Catheter Indwelling Catheter Indwelling Catheter - Exam General appearance: The patient is alert, oriented, appears in no acute distress. HET: Head is normocephalic and atraumatic. Conjunctiva pink. Sclera anicteric. Neck: Supple without lymphadenopathy. Abdomen: Soft, nontender, nondistended with bowel sounds. PEG tube in place. No guarding or rigidity. Extremities: Normal skin color and turgor. No pedal edema Skin: No rashes, no jaundice Neurological: No focal deficits. Alert and oriented 3. - Labs CBC & Chem 7: 07/11/21 09:00 07/12/21 06:42 Labs: Abnormal Lab Results - Last 24 Hours (Table) 07/11/21 07/11/21 07/11/21 Range/Units 09:00 09:00 11:35 RBC 3.31 L (4.30-5.90) m/uL Hgb 11.8 L (13.0-17.5) gm/dL Hct 37.5 L (39.0-53.0) % MCV 113.6 H (80.0-100.0) fL MCH 35.6 H (25.0-35.0) pg RDW 16.6 H (11.5-15.5) % Lymphocytes # (Manual) 0.73 L (1.0-4.8) k/uL Eosinophils # (Manual) 0.73 H (0-0.7) k/uL Macrocytosis Marked A PT (9.0-12.0) sec INR (<1.2) Sodium 135 L (137-145) mmol/L Potassium 5.8 H (3.5-5.1) mmol/L Chloride 95 L (98-107) mmol/L Carbon Dioxide 31 H (22-30) mmol/L BUN 48 H (9-20) mg/dL Creatinine 2.37 H (0.66-1.25) mg/dL Glucose 101 H (74-99) mg/dL POC Glucose (mg/dL) 102 H (75-99) mg/dL ALT (4-49) U/L Alkaline Phosphatase (38-126) U/L 07/11/21 07/11/21 07/11/21 Range/Units 12:49 16:46 23:57 RBC (4.30-5.90) m/uL Hgb (13.0-17.5) gm/dL Hct (39.0-53.0) % MCV (80.0-100.0) fL MCH (25.0-35.0) pg RDW (11.5-15.5) % Lymphocytes # (Manual) (1.0-4.8) k/uL Eosinophils # (Manual) (0-0.7) k/uL Macrocytosis PT 24.7 H (9.0-12.0) sec INR 2.5 H (<1.2) Sodium (137-145) mmol/L Potassium (3.5-5.1) mmol/L Chloride (98-107) mmol/L Carbon Dioxide (22-30) mmol/L BUN (9-20) mg/dL Creatinine (0.66-1.25) mg/dL Glucose (74-99) mg/dL POC Glucose (mg/dL) 100 H 110 H (75-99) mg/dL ALT (4-49) U/L Alkaline Phosphatase (38-126) U/L 07/12/21 07/12/21 07/12/21 Range/Units 06:09 06:42 06:42 RBC (4.30-5.90) m/uL Hgb (13.0-17.5) gm/dL Hct (39.0-53.0) % MCV (80.0-100.0) fL MCH (25.0-35.0) pg RDW (11.5-15.5) % Lymphocytes # (Manual) (1.0-4.8) k/uL Eosinophils # (Manual) (0-0.7) k/uL Macrocytosis PT 22.4 H (9.0-12.0) sec INR 2.3 H (<1.2) Sodium 134 L (137-145) mmol/L Potassium 5.8 H (3.5-5.1) mmol/L Chloride 95 L (98-107) mmol/L Carbon Dioxide (22-30) mmol/L BUN 47 H (9-20) mg/dL Creatinine 2.51 H (0.66-1.25) mg/dL Glucose 105 H (74-99) mg/dL POC Glucose (mg/dL) 113 H (75-99) mg/dL ALT 58 H (4-49) U/L Alkaline Phosphatase 133 H (38-126) U/L Assessment and Plan (1) Transaminitis Narrative/Plan: This is a 61-year-old male who presented to the emergency department several weeks ago after sustaining a fall. He has multiple comorbidities including previous CVA with dysphasia and recently had a PEG tube placed. He also was found to have atrial fibrillation with RVR and started on amiodarone drip. He had a spike in his AST and ALT and underwent a liver ultrasound that showed some minimal extrahepatic biliary dilationwith a normal CBD. Ultrasound did show e nlarged liver, heterogeneously hyperechoic with prominent right hepatic lobe. There was shadowing mobile gallstones noted.he denies any previous history of liver disease, no history of hepatitis, or alcohol abuse. LFTs have continued to trend down and are almost in the normal range. Patients presentation is moreconsistent with acute ischemic hepatitis. He's never had any elevation in his bilirubin, no abdominal pain, making biliary obstruction less likely. Likely medication induced or hypoperfusion, patient was noted to have episode of hypotension which has resolved. LFTs continue to trend down, and are almost normal. Current Visit: Yes Status: Acute Code(s): R74.01 - ELEVATION OF LEVELS OF LIVER TRANSAMINASE LEVELS SNOMED Code(s): 163195952 (2) Dilation of biliary tract Narrative/Plan: This is a 61-year-old male who presented to the emergency department several weeks ago after sustaining a fall. He has multiple comorbidities including previous CVA with dysphasia and recently had a PEG tube placed. He also was found to have atrial fibrillation with RVR and started on amiodarone drip. He had a spike in his AST and ALT and underwent a liver ultrasound that showed some minimal extrahepatic biliary dilationwith a normal CBD. Ultrasound did show enlarged liver, heterogeneously hyperechoic with prominent right hepatic lobe. There was shadowing mobile gallstones noted.he denies any previous history of liver disease, no history of hepatitis, or alcohol abuse. LFTs have continued to trend down and are almost in the normal range. He's never had any elevation in his bilirubin, no abdominal pain, making biliary obstruction less likely. Current Visit: Yes Status: Acute Code(s): K83.8 - OTHER SPECIFIED DISEASES OF BILIARY TRACT SNOMED Code(s): 100538933 Plan: 1. Continue symptomatic and supportive care 2. Acute hepatitis panel non-reactive 4. No plan on ERCP or MRCP 5. Avoid hepatotoxic medications 6. The patient is cleared by gastroenterology for discharge Thank you for this consultation, we will sign off Dr. Nandini Villa I agree with the dictator's note, documented as a scribe by Fariba Carlson.
--- NOTE | 2021-07-12 14:25 | PN ---
PROGRESS NOTE Patient is seen for followup for acute kidney injury on top of chronic kidney disease. Most recently, patient's potassium has been running high with some increase in the creatinine as well. He has a history of obstructive uropathy currently with indwelling Lara catheter. Previous ultrasound on July 04 did not show any hydronephrosis. Currently off Lasix. Blood pressure has not been significantly low. Overall, patient states he is feeling better. Tube feeds are Nepro. PHYSICAL EXAMINATION: On examination today, blood pressure 133/68, heart rate 65 per minute. He is afebrile. Examination of the heart S1, S2. Examination of the lungs, bilateral breath sounds are heard. Abdomen is soft, nontender. Examination of lower extremities shows no evidence of edema. 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 LAB: Show sodium 134, potassium 5.8, chloride 95, BUN 47, creatinine 2.5. ASSESSMENT: 1. Acute kidney injury on top of chronic kidney disease. Rule out obstructive uropathy. Currently patient has a Lara catheter which I will maintain but this will be flushed and repeat ultrasound of the kidneys will be ordered. No nephrotoxic agents on board and blood pressure is not low. Patient is maintained on midodrine. 2. Chronic kidney disease with stage 3A. Baseline creatinine 1.6-2 with solitary kidney, which is his right kidney and previous history of obstructive uropathy. 3. History of left nephrectomy and left nephrostomy tube. 4. Hyperkalemia associated with acute kidney injury and possible underlying obstructive uropathy. We will repeat ultrasound and flush the Lara catheter. 5. Type 2 diabetes. 6. Volume overload, now improved. 7. Hypotension maintained on midodrine. PLAN: Flush Lara catheter. Repeat ultrasound of the kidneys. Continue with Nepro. Blood sugars are controlled. The patient will need Kayexalate/Lokelma 1-2 times a week as outpatient if there is no evidence of obstruction noted. Continue to avoid use of NSAIDs. MMODL / IJN: [id number] /
[2021-07-12 14:40] LABS: Hepatitis B Surface Antigen Nonreactive (Nonreactive)
--- NOTE | 2021-07-12 15:02 | PN ---
PROGRESS NOTE DATE OF SERVICE: 07/12/2021 REASON FOR FOLLOWUP: Pneumonia. INTERVAL HISTORY: The patient is afebrile. The patient is currently breathing comfortably on nasal cannula oxygen. Denies having any chest pain or any worsening cough. No abdominal pain. No diarrhea. PHYSICAL EXAMINATION: Blood pressure 161/77, pulse of 65. Temperature of 98. He is 93% on 2 L nasal cannula. General description is a middle-aged male lying in bed in no distress. Respiratory system: Unlabored breathing, decreased breath sounds on the base. No wheeze. Heart S1, S2. Regular rate and rhythm. Abdomen soft, no tenderness. Extremities are no edema of the feet. LABS: Creatinine is 2.51. INR is 2.3. DIAGNOSTIC IMPRESSION AND PLAN: Patient with pneumonia that has been adequately treated. The patient has completed antibiotic therapy, currently being monitored closely off antibiotics with no fever or elevated white count and continue supportive care. MMODL / IJN: [id number] /
[2021-07-12 17:01] LABS: Glucose,Whole Blood 130 mg/dL (75-99)
[2021-07-12] MEDS ORDERED: WARFARIN 3 MG TAB PO ONE (18:00)
[2021-07-13 00:21] LABS: Glucose,Whole Blood 115 mg/dL (75-99)
[2021-07-13] MEDS: INSULIN ASPART (NovoLOG) 100 UNIT/ML VIAL SQ SCH ×4 (00:54→16:53)
[2021-07-13 05:36] LABS: Glucose,Whole Blood 129 mg/dL (75-99)
[2021-07-13 06:59] LABS: Glucose,Whole Blood 127 mg/dL (75-99)
[2021-07-13 07:01] LABS: INR 2.5 (<1.2); Prothrombin Time 24.3 sec (9.0-12.0)
[2021-07-13] MEDS: SYMBICORT 160-4.5 MCG INHALER INHALATION SCH ×2 (07:42→21:11)
[2021-07-13] MEDS: IPRATROPIUM-ALBUTEROL 3 ML NEB INHALATION SCH ×4 (07:42→21:11)
[2021-07-13] MEDS: MIDODRINE 5 MG TAB PO SCH ×3 (10:06→16:36)
[2021-07-13] MEDS: FAMOTIDINE 20 MG TAB PO SCH (10:09)
[2021-07-13] MEDS: AMIODARONE 200 MG TAB PO SCH ×2 (10:10→20:30)
[2021-07-13] MEDS: CYANOCOBALAMIN 500 MCG TAB PO SCH (10:10)
[2021-07-13] MEDS: VENLAFAXINE HCL 75 MG TAB PO SCH ×2 (10:10→20:30)
[2021-07-13] MEDS: FOLIC ACID 1 MG TAB PO SCH (10:10)
[2021-07-13] MEDS: METOPROLOL TARTRATE 25 MG TAB PO SCH ×3 (10:11→20:30)
[2021-07-13] MEDS: FLUCONAZOLE ORAL SUSP 1,400 MG/35 ML BOTTLE PO SCH (10:11)
[2021-07-13 10:46] LABS: African American GFR (CKD) 36 (>60 ml/min/1.73 sqM); Anion Gap 10 mmol/L; Blood Urea Nitrogen 47 mg/dL (9-20); Calcium 9.5 mg/dL (8.4-10.2); Carbon Dioxide 26 mmol/L (22-30); Chloride 97 mmol/L (98-107); Glucose 125 mg/dL (74-99); Non-African American GFR(CKD) 31 (>60 ml/min/1.73 sqM); Potassium 5.6 mmol/L (3.5-5.1); Sodium 133 mmol/L (137-145)
[2021-07-13 11:28] LABS: Glucose,Whole Blood 163 mg/dL (75-99)
--- NOTE | 2021-07-13 12:36 | PN ---
PROGRESS NOTE Patient is seen for followup for chronic kidney disease, chronic hyperkalemia. He received a dose of Kayexalate yesterday. Patient's serum potassium has been staying at 5.5 to 5.8. He has underlying obstructive uropathy, although repeat ultrasound did not show any obvious hydronephrosis. Patient has an indwelling Lara catheter as well. He is maintained on Nepro tube feeding and has not had any increased potassium intake. On examination today, blood pressure 135/69, heart rate 71 per minute. He is afebrile. EXAMINATION OF THE HEART: S1 and S2. EXAMINATION OF LUNGS: Bilateral breath sounds are heard. Abdomen is soft, non-tender. Examination of lower extremities shows no evidence of edema. 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 Labs show sodium 133, potassium 5. , chloride 97, BUN 47, creatinine 2.19. ASSESSMENT: 1. Chronic kidney disease with solitary kidney, history of obstructive uropathy, urine retention, currently with indwelling Lara catheter. Repeat ultrasound did not show any evidence of hydronephrosis. Renal function fairly stable. 2. Chronic kidney disease, stage 3A, baseline creatinine 1.6 to 2 with solitary kidney. 3. History of left nephrectomy with previous left nephrostomy tube. 4. Chronic hyperkalemia associated with underlying kidney disease and obstructive uropathy, although repeat ultrasound did not show any evidence of hydronephrosis. There may still be a component of some degree of obstruction not clearly picked up on ultrasound. At this time patient will be maintained on Kayexalate or Lokelma 1-2 times a week. Lokelma is not yet formulary here. Hopefully this can be obtained as outpatient. Patient will need about 5 grams orally twice a week. Continue with the Nepro tube feedings and avoid constipation. MMODL / IJN: [id number] /
[2021-07-13 16:45] LABS: Glucose,Whole Blood 124 mg/dL (75-99)
--- NOTE | 2021-07-13 16:54 | PN ---
PROGRESS NOTE DATE OF SERVICE: 07/13/2021 REASON FOR FOLLOWUP: Pneumonia. INTERVAL HISTORY: The patient is currently afebrile. The patient still bringing up significant amount of sputum. No chest pain. No vomiting. No abdominal pain or diarrhea. PHYSICAL EXAMINATION: Blood pressure 146/77 with a pulse of temperature 97.8. He is 96% on 2 L nasal cannula. General description is a middle-aged male up in the bed in no distress. RESPIRATORY SYSTEM: Unlabored breathing. Decreased intensity of breath sounds. No wheeze. HEART: S1, S2. Regular rate and rhythm. ABDOMEN: Soft. No tenderness. LABS: INR is 2.5, creatinine is 2.19. DIAGNOSTIC IMPRESSION AND PLAN: Patient admitted to hospital with multiple symptoms. Did have a congested cough concerning for pneumonia, for which the patient has completed more than 2 weeks no more antibiotic therapy. Currently being monitored closely off antibiotics. There is no fever or elevated white count. We will monitor the patient closely off antibiotics. Continue supportive care. MMODL / IJN: [id number] /
[2021-07-13] MEDS ORDERED: WARFARIN 3 MG TAB PO SCH (18:00)
--- NOTE | 2021-07-13 18:05 | P.PN ---
Subjective Progress Note Date: 07/13/21 Everett Juárez, is a 61-year-old male patient of Dr. Jama, who presented to [facility] emergency room after sustaining a fall, and complaining of generalized weakness and dizziness, patient is not clear whether he passed out or had any loss of consciousness. Patient was also complaining of chest pain in the EMS, EKG was within normal limits and troponin level was less than 0.01 He was evaluated in the emergency room vital examination on presentation revealed a temperature of 97.4 pulse 71 respirations 16 blood pressure 87/50 pulse ox 94% on room air Laboratory data revealed a white blood count of 8.6 hemoglobin 12.0 platelet count 338 INR 1.2 sodium 128 potassium 6.2 chloride 99 CO2 22 BUN 17 creatinine 2.01 lactic acid on presentation 2.1 urine analysis did not reveal evidence of significant infection. Testing in the emergency room revealed EKG revealed normal sinus rhythm normal EKG chest x-ray done in the emergency room revealed no acute lung disease there was prominent pulmonary leon that could be related to adenopathy. 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 Patient was admitted to medical floor for further evaluation and treatment. Past medical history is significant for history of hypertension, history of hyperlipidemia, history of chronic kidney disease, history of [id number] diabetes mellitus, history of previous stroke, history of paroxysmal atrial fibrillation maintained on Coumadin, history of COPD, patient still smoke a few cigarettes per day, he denies alcohol use. On review of systems Patient is alert and responsive in no distress, he denies any complaints there is no fever or chills no headache or dizziness no chest pain no shortness of breath no palpitation no cough no nausea or vomiting no abdominal pain no diarrhea no blood in the stools no burning with urination no frequency or urgency and no hematuria, there is no weakness or numbness in any of the extremities no change in vision speech, gait was not tested. On 06/16/2021 patient was seen and examined on the telemetry floor he is alert and oriented 3 in no apparent distress he is still complaining of dizziness and weakness otherwise he denies any complaints there is no fever or chills no headache no chest pain no shortness of breath no cough no palpitation no nausea or vomiting no abdominal pain no diarrhea no blood in the stools no burning with urination no frequency or urgency and no hematuria there is no weakness or numbness in any of the extremities no change in vision or in speech On 06/17/2021 Patient was seen and examined on the medical floor, he is alert and oriented x 3 in no distress, he denies any complaints there is no fever or chills no headache or dizziness no chest pain no shortness of breath no palpitation no cough no nausea or vomiting no abdominal pain no diarrhea no blood in the stools no burning with urination no frequency or urgency and no hematuria, there is no weakness or numbness in any of the extremities no change in vision or speech, gait was not tested at this time, patient had significant orthostatic hypotension, this was discussed with cardiology, and dose of Catapres was adjusted down to 0.1 mg by mouth twice a day, patient will be reevaluated by cardiology in a.m. On 06/18/2021 patient was seen and examined on the medical floor, he is alert and oriented 3 in no distress, he is complaining of weakness otherwise he denies any specific complaints, there is no fever or chills no headache or dizziness no chest pain no shortness of breath no cough no nausea or vomiting no abdominal pain no diarrhea no blood in the stools no burning with urination no frequency or urgency no hematuria, there is no weakness or numbness in any of the extremities there is no change in vision speech or gait. Repeat orthostatic hypotension reveals significant drop while standing, cardiology are following, yesterday dose of Catapres was decreased to 0.1 by mouth twice daily, awaiting further recommendation from cardiology On 06/19/2021 patient was seen and examined on the medical floor, he is alert and oriented 3 in no distress, he is complaining of weakness otherwise he denies any specific complaints, he is still having significant orthostatic hypotension was significant drop in blood pressure when patient stands up. the re is no fever or chills no headache or dizziness no chest pain no shortness of breath no cough no nausea or vomiting no abdominal pain no diarrhea no blood in the stools no burning with urination no frequency or urgency no hematuria, there is no weakness or numbness in any of the extremities there is no change in vision speech or gait. Cardiology are following at this time Catapres is being discontinued and midodrine was added to medication regimen will continue to monitor closely. On 06/20/2021 patient was seen and examined on the medical floor he is alert and oriented 3 in no apparent distress, this morning he had an episode of palpitation and severe shortness of breath, EKG revealed SVT versus A. fib with RVR with a heart rate of 186 patient was transferred to [facility]. he was seen by [facility] rdiology and was started on IV amiodarone, chest x-ray was done today and was suspicious for right sided infiltrate suggestive of pneumonia patient is stating that he is having some cough with yellow sputum production WBC is low, patient was started on IV antibiotic Zosyn, and pulmonary consultation was requested. Patient denies any fever or chills no headache or dizziness no chest pain no nausea or vomiting no abdominal pain no diarrhea and no urinary symptoms. On 06/21/2021 patient was seen and examined on the medical floor he is complaining of cough otherwise he denies any complaints at this time there is no fever or chills no headache or dizziness no chest pain no shortness of breath no nausea or vomiting no abdominal pain no diarrhea no blood in the stools no burning with urination no frequency or urgency and no hematuria, yesterday patient had an episode of A. fib with RVR, he was started on IV amiodarone by cardiology and was transferred to telemetry floor, also chest x-ray revealed evidence of right basilar infiltrate, he was started on IV Zosyn pulmonary consultation was requested, sputum culture was ordered On 06/22/2021 Patient was seen and examined on the medical floor, he is alert and oriented x 3 in no distress, he is complaining of cough otherwise he denies any complaints there is no fever or chills no headache or dizziness no chest pain no shortness of breath no palpitation no cough no nausea or vomiting no abdominal pain no diarrhea no blood in the stools no burning with urination no frequency or urgency and no hematuria, there is no weakness or numbness in any of the extremities no change in vision speech or gait. Patient failed swallow evaluation with all food consistency today, he is kept nothing by mouth consultation for Dr. Zacarias for PEG tube placement was initiated. On 06/23/2021 patient is alert and oriented 3. Patient is resting comfortably in bed. Patient currently maintained on amiodarone drip per cardiology. Patient also maintained on IV Zosyn for aspiration pneumonia. Surgical services have been consulted for PEG tube placement. At this time pulmonary, cardiology, nephrology and surgical services following. Repeat labs have been ordered. Patient is still complaining of chest congestion and cough. Patient denies chest pain. Patient denies nausea vomiting or diarrhea. Patient denies any urinary burning or frequency. On 06/24/2021 Patient was seen and examined on the medical floor, he is alert and oriented x 3 in no distress, he denies any complaints there is no fever or chills no headache or dizziness no chest pain no shortness of breath no palpitation no cough no nausea or vomiting no abdominal pain no diarrhea no blood in the stools no burning with urination no frequency or urgency and no hematuria, there is no weakness or numbness in any of the extremities no change in vision speech, today INR is 5.3 Coumadin is on hold Will give 1 dose of vitamin K 2 mg IV patient is nothing by mouth , he is awaiting PEG tube placement On 06/24/2021 patient is alert and oriented 3 INR 1.2. Patient maintained on IV amiodarone. Tentative plans for PEG tube placement tomorrow per surgical services. . At this time patient remains with productive cough. Patient denies chest pain. Patient denies nausea vomiting or diarrhea. Patient denies any urinary burning or frequency On 06/26/2021 Patient was seen and examined on the medical floor, he is alert and oriented x 3 in no distress, he denies any complaints there is no fever or chills no headache or dizziness no chest pain no shortness of breath no palp itation no cough no nausea or vomiting no abdominal pain no diarrhea no blood in the stools no burning with urination no frequency or urgency and no hematuria, there is no weakness or numbness in any of the extremities no change in vision speech, patient received vitamin K his INR is low we are awaiting PEG tube placement On 06/27/2021 Patient was seen and examined on the medical floor, he is alert and oriented x 3 in no distress, he denies any complaints there is no fever or chills no headache or dizziness no chest pain no shortness of breath no palpitation no cough no nausea or vomiting no abdominal pain no diarrhea no blood in the stools no burning with urination no frequency or urgency and no hematuria, there is no weakness or numbness in any of the extremities no change in vision speech, Patient underwent PEG tube placement and was started on PEG tube feeding, will continue to follow closely will recheck chest x-ray in a.m. On 06/28/2021 patient alert and oriented 3. Repeat chest x-ray showing worsening interstitial edema with superimposed infiltrates versus atelectasis. Small pleural effusion. We'll reconsult pulmonary services. Patient remains on IV Zosyn. Patient does have PEG tube in place tube feeds running. At this time patient denies chest pain. Patient does report occasional cough with sputum production. Patient denies nausea vomiting or diarrhea. Patient denies any urinary burning or frequency. On 06/29/2021 patient was seen and examined on the telemetry floor, he is alert and oriented 3 in no distress, he is still complaining of shortness of breath and occasional cough, his chest x-ray done yesterday reveals worsening of the pulmonary infiltrate, he is still maintained on IV Zosyn, and is maintained on oxygen at 5 L via nasal cannula, pulmonary consultation was resubmitted yesterday for reevaluation and further advice regarding antibiotic treatment and further management of his pulmonary consultation, at this time patient is not ready yet for discharge to a rehab center, otherwise he denies any complaints there is no fever or chills no chest pain no nausea or vomiting no abdominal pain no diarrhea no blood in the stools and no urinary symptoms PEG tube site is clear. 06/30/2021 patient alert and oriented 3. Patient still having significant sputum production. Will order repeat sputum sample consults infectious disease services. Patient's liver enzymes also significantly elevated. Lipitor DC'd. Liver ultrasound will be ordered. Patient denies chest pain. Patient denies nausea vomiting or diarrhea. Patient denies any urinary burning or frequency On 07/01/2021 Patient was seen and examined on the medical floor, he is alert and oriented x 3 in no distress, he denies any complaints there is no fever or chills no headache or dizziness no chest pain no shortness of breath no palpitation no cough no nausea or vomiting no abdominal pain no diarrhea no blood in the stools no burning with urination no frequency or urgency and no hematuria, there is no weakness or numbness in any of the extremities no change in vision speech. Liver enzymes are quite elevated but are improving gradually, Lipitor was discontinued and Tylenol was discontinued, will continue to monitor On 07/02/2021 Patient is alert and oriented x 3 in no distress, he denies any complaints there is no fever or chills no headache or dizziness no chest pain no shortness of breath no palpitation no cough no nausea or vomiting no abdominal pain no diarrhea no blood in the stools no burning with urination no frequency or urgency and no hematuria, there is no weakness or numbness in any of the extremities no change in vision speech. Liver enzymes are quite elevated but are improving gradually, Lipitor was discontinued and Tylenol was discontinued, will continue to monitor, kidney function remains slightly elevated. On 07/03/2021 Patient was seen and examined on the medical floor, he is alert and oriented x 3 in no distress, he denies any complaints there is no fever or chills no headache or dizziness no chest pain no shortness of breath no palpitation no cough no nausea or vomiting no abdominal pain no diarrhea no blood in the stools no burning with urination no frequency or urgency and no hematuria, there is no weakness or numbness in any of the extremities no change in vision speech or gait. At this time liver enzymes are improving gradually will continue to monitor closely patient lost his IV access, will proceed with midline placement in a.m. On 07/04/2021 Patient is alert and oriented x 3 in no distress, he denies any complaints there is no fever or chills no headache or dizziness no chest pain no shortness of breath no palpitation no cough no nausea or vomiting no abdominal pain no diarrhea no blood in the stools no burning with urination no frequency or urgency and no hematuria, there is no weakness or numbness in any of the extremities no change in vision speech or gait. At this time liver enzymes are improving gradually will continue to monitor closely patient lost his IV access, will proceed with midline placement in a.m. on 07/05/2021 patient is alert and oriented 3. Chest CT completed showing b ilateral pleural effusions with right lower lobe infiltrate as well as patchy areas of infiltrate in the right upper lobe. Pulmonary and infectious disease services are following. Patient remains on Augmentin and Diflucan. Patient also maintained on IV Lasix. At this time patient denies chest pain. Patient denies nausea vomiting or diarrhea. Patient denies any urinary burning or frequency On 07/07/2021 patient is alert and oriented 3. Creatinine increasing to 2.16 and bun 39. Will add 250 mL of free water every 6 hours. Repeat chest x-ray ordered per pulmonary. Patient remains on Lasix. Pulmonary nephrology infectious disease service is following. At this time patient denies chest pain or shortness breath. Patient denies nausea vomiting or diarrhea. Patient denies any urinary burning or frequency On 07/08/2021 patient was seen and examined on the medical floor he is alert and oriented 3 in no apparent distress there is no fever or chills no headache or dizziness no chest pain no shortness of breath no cough no nausea or vomiting no abdominal pain no diarrhea no blood in the stools no burning with urination no frequency or urgency and no hematuria. He is receiving tube feeding via PEG tube, he is receiving physical therapy, possible transfer to a rehab unit early next week. On 07/09/2021 1 patient is alert and oriented 3. Creatinine increasing to 2.31 and bun 42. Potassium 5.5 nephrology services are following. Lasix has been DC'd per nephrology. Repeat labs will be ordered. Patient remains on tube feedings. Antibiotic Augmentin per ID patient being worked up for DC to ECF facility. At this time patient denies chest pain or shortness breath. Patient denies nausea vomiting or diarrhea. Patient denies any urinary burning or frequency On 07/10/2021 patient is alert and oriented 3. Patient was given IV Lasix history for elevated potassium per nephrology awaiting lab work to assess kidney function today. Patient has been cleared by pulmonary services but will likely stay due to worsening kidney function. This time patient denies chest pain or shortness of breath. Patient denies nausea vomiting or diarrhea. Patient denies any urinary burning or frequency On 07/11/2021 Patient was seen and examined on the medical floor, he is alert and oriented x 3 in no distress, he denies any complaints there is no fever or chills no headache or dizziness no chest pain no shortness of breath no palpitation no cough no nausea or vomiting no abdominal pain no diarrhea no blood in the stools no burning with urination no frequency or urgency and no hematuria, there is no weakness or numbness in any of the extremities no change in vision speech or gait. Patient is improving gradually will discuss with infectious disease. Possibility of discharge to rehab soon and antibiotic at the time of discharge On 07/12/2021 patient alert and oriented 3. Creatinine 2.51, bun 47 and potassium 5.8. Patient did receive 1 dose of IV Lasix yesterday. Awaiting nephrology recommendation. Patient has completed antibiotic course. No need for antibiotics per infectious disease this time patient denies chest pain. Patient denies nausea vomiting or diarrhea. Patient denies any urinary burning or frequency On 07/13/2021 patient was seen and examined on the medical floor he is alert and oriented 3 in no distress there is no fever or chills no headache or dizziness no chest pain no shortness of breath no cough no nausea or vomiting no abdominal pain no diarrhea and no urinary symptoms. Time we are awaiting adjustment of medications and clearance by nephrology for transfer to rehab Objective - Vital Signs Vital signs: Vital Signs Temp 97.8 F 07/13/21 14:00 Pulse 72 07/13/21 16:46 Resp 17 07/13/21 14:00 BP 146/77 07/13/21 14:00 Pulse Ox 96 07/13/21 14:00 Intake & Output 07/12/21 07/13/21 07/13/21 18:59 06:59 18:59 Intake Total 720 720 Output Total 610 650 Balance 110 70 Weight 81.5 kg Intake: Tube Feeding 720 720 Output: Urine 610 650 Coude 650 Other: Voiding Method Indwelling Catheter Indwelling Catheter Indwelling Catheter - Exam In general patient is alert and responsive in no distress HEENT head normocephalic and atraumatic Neck is supple no JVD no goiter no lymphadenopathy no carotid bruit Chest examination is clear to auscultation no crackles no wheezing Cardiac exam reveals regular heart sounds S1 and S2 no gallops no murmurs Abdomen is soft nontender no organomegaly with normal bowel sounds Extremity exam reveals no edema no cyanosis or clubbing Neurological examination reveals no gross focal deficits - Labs CBC & Chem 7: 07/11/21 09:00 07/13/21 06:06 Labs: Abnormal Lab Results - Last 24 Hours (Table) 07/13/21 07/13/21 07/13/21 Range/Units 00:19 05:34 06:06 PT 24.3 H (9.0-12.0) sec INR 2.5 H (<1.2) Sodium (137-145) mmol/L Potassium (3.5-5.1) mmol/L Chloride (98-107) mmol/L BUN (9-20) mg/dL Creatinine (0.66-1.25) mg/dL Glucose (74-99) mg/dL POC Glucose (mg/dL) 115 H 129 H (75-99) mg/dL 07/13/21 07/13/21 07/13/21 Range/Units 06:06 06:58 11:26 PT (9.0-12.0) sec INR (<1.2) Sodium 133 L (137-145) mmol/L Potassium 5.6 H (3.5-5.1) mmol/L Chloride 97 L (98-107) mmol/L BUN 47 H (9-20) mg/dL Creatinine 2.19 H (0.66-1.25) mg/dL Glucose 125 H (74-99) mg/dL POC Glucose (mg/dL) 127 H 163 H (75-99) mg/dL 07/13/21 Range/Units 16:44 PT (9.0-12.0) sec INR (<1.2) Sodium (137-145) mmol/L Potassium (3.5-5.1) mmol/L Chloride (98-107) mmol/L BUN (9-20) mg/dL Creatinine (0.66-1.25) mg/dL Glucose (74-99) mg/dL POC Glucose (mg/dL) 124 H (75-99) mg/dL Assessment and Plan Plan: Fall at home with unclear history whether patient had a syncopal episode or loss of consciousness Episode of chest pain while in the ambulance Atrial fibrillation with rapid ventricular response. Underlying history of paroxysmal atrial fibrillation, maintained on Coumadin Evidence of dehydration with electrolyte imbalance with hyponatremia and hyperkalemia Underlying history of chronic kidney disease Underlying history of [id number] diabetes mellitus, no evidence of hypoglycemia Underlying history of hypertension Previous history of cerebellar stroke. Right basilar infiltrate suggestive of pneumonia completed course of antibiotic Dysphagia. PEG tube placement per Dr. ordonez Elevated liver enzymes. Lipitor DC'd. Liver numbers improved Acute kidney injury with hyperkalemia. Nephrology services are following. IV Lasix given. Repeat labs ordered DVT prophylaxis Coumadin. GI prophylaxis Pepcid Pulmonary, cardiology, nephrology and surgical services following s/p peg tube placement Repeat labs ordered PT OT services consulted Social work consulted for possible ECF placement Per ID no need for antibiotics upon discharge completed course of antibiotics
[2021-07-14] MEDS: INSULIN ASPART (NovoLOG) 100 UNIT/ML VIAL SQ SCH ×3 (01:07→13:33)
[2021-07-14 01:26] LABS: Glucose,Whole Blood 118 mg/dL (75-99)
[2021-07-14 05:39] LABS: Glucose,Whole Blood 104 mg/dL (75-99)
[2021-07-14 06:51] LABS: INR 2.3 (<1.2); Prothrombin Time 22.5 sec (9.0-12.0)
[2021-07-14 07:43] VITALS: RESP 17
[2021-07-14] MEDS: IPRATROPIUM-ALBUTEROL 3 ML NEB INHALATION SCH ×3 (08:44→16:35)
[2021-07-14] MEDS: SYMBICORT 160-4.5 MCG INHALER INHALATION SCH (08:44)
[2021-07-14 09:09] LABS: ALT 43 U/L (4-49); AST 43 U/L (17-59); African American GFR (CKD) 37 (>60 ml/min/1.73 sqM); Albumin 3.6 g/dL (3.5-5.0); Alkaline Phosphatase 123 U/L (38-126); Anion Gap 12 mmol/L; Blood Urea Nitrogen 47 mg/dL (9-20); Calcium 9.2 mg/dL (8.4-10.2); Carbon Dioxide 25 mmol/L (22-30); Chloride 97 mmol/L (98-107); Globulin 3.7 g/dL; Glucose 94 mg/dL (74-99); Non-African American GFR(CKD) 32 (>60 ml/min/1.73 sqM); Potassium 5.4 mmol/L (3.5-5.1); Sodium 134 mmol/L (137-145); Total Bilirubin 0.6 mg/dL (0.2-1.3); Total Protein 7.3 g/dL (6.3-8.2)
[2021-07-14 09:15] LABS: Basophils # (A) 0.09 X 10*3/uL (0.00-0.10); Basophils % (A) 1.1 %; Eosinophils # (A) 0.34 X 10*3/uL (0.04-0.35); Eosinophils % (A) 4.1 %; HCT 36.3 % (39.6-50.0); HGB 11.1 g/dL (13.0-17.0); Lymphocytes # (A) 1.19 X 10*3/uL (0.90-5.00); Lymphocytes % (A) 14.4 %; MCH 34.2 pg (27.0-32.0); MCHC 30.6 g/dL (32.0-37.0); MCV 111.7 fL (80.0-97.0); Mean Platelet Volume 9.9 fL (9.5-12.2); Monocytes # (A) 1.05 X 10*3/uL (0.20-1.00); Monocytes % (A) 12.7 %; Neutrophils # (A) 5.59 X 10*3/uL (1.80-7.70); Neutrophils % (A) 67.3 %; Platelet Count 341 X 10*3/uL (140-440); RBC 3.25 X 10*6/uL (4.40-5.60); RDW 16.4 % (11.5-14.5); WBC 8.29 X 10*3/uL (4.50-10.00)
--- NOTE | 2021-07-14 09:40 | P.PN ---
Subjective Progress Note Date: 07/14/21 Everett Juárez, is a 61-year-old male patient of Dr. Jama, who presented to [facility] emergency room after sustaining a fall, and complaining of generalized weakness and dizziness, patient is not clear whether he passed out or had any loss of consciousness. Patient was also complaining of chest pain in the EMS, EKG was within normal limits and troponin level was less than 0.01 He was evaluated in the emergency room vital examination on presentation revealed a temperature of 97.4 pulse 71 respirations 16 blood pressure 87/50 pulse ox 94% on room air Laboratory data revealed a white blood count of 8.6 hemoglobin 12.0 platelet count 338 INR 1.2 sodium 128 potassium 6.2 chloride 99 CO2 22 BUN 17 creatinine 2.01 lactic acid on presentation 2.1 urine analysis did not reveal evidence of significant infection. Testing in the emergency room revealed EKG revealed normal sinus rhythm normal EKG chest x-ray done in the emergency room revealed no acute lung disease there was prominent pulmonary leon that could be related to adenopathy. 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 Patient was admitted to medical floor for further evaluation and treatment. Past medical history is significant for history of hypertension, history of hyperlipidemia, history of chronic kidney disease, history of iom-mafzdkh-nfhtfodes diabetes mellitus, history of previous stroke, history of paroxysmal atrial fibrillation maintained on Coumadin, history of COPD, patient still smoke a few cigarettes per day, he denies alcohol use. On review of systems Patient is alert and responsive in no distress, he denies any complaints there is no fever or chills no headache or dizziness no chest pain no shortness of breath no palpitation no cough no nausea or vomiting no abdominal pain no diarrhea no blood in the stools no burning with urination no frequency or urgency and no hematuria, there is no weakness or numbness in any of the extremities no change in vision speech, gait was not tested. On 06/16/2021 patient was seen and examined on the telemetry floor he is alert and oriented 3 in no apparent distress he is still complaining of dizziness and weakness otherwise he denies any complaints there is no fever or chills no headache no chest pain no shortness of breath no cough no palpitation no nausea or vomiting no abdominal pain no diarrhea no blood in the stools no burning with urination no frequency or urgency and no hematuria there is no weakness or numbness in any of the extremities no change in vision or in speech On 06/17/2021 Patient was seen and examined on the medical floor, he is alert and oriented x 3 in no distress, he denies any complaints there is no fever or chills no headache or dizziness no chest pain no shortness of breath no palpitation no cough no nausea or vomiting no abdominal pain no diarrhea no blood in the stools no burning with urination no frequency or urgency and no hematuria, there is no weakness or numbness in any of the extremities no change in vision or speech, gait was not tested at this time, patient had significant orthostatic hypotension, this was discussed with cardiology, and dose of Catapres was adjusted down to 0.1 mg by mouth twice a day, patient will be reevaluated by cardiology in a.m. On 06/18/2021 patient was seen and examined on the medical floor, he is alert and oriented 3 in no distress, he is complaining of weakness otherwise he denies any specific complaints, there is no fever or chills no headache or dizziness no chest pain no shortness of breath no cough no nausea or vomiting no abdominal pain no diarrhea no blood in the stools no burning with urination no frequency or urgency no hematuria, there is no weakness or numbness in any of the extremities there is no change in vision speech or gait. Repeat orthostatic hypotension reveals significant drop while standing, cardiology are following, yesterday dose of Catapres was decreased to 0.1 by mouth twice daily, awaiting further recommendation from cardiology On 06/19/2021 patient was seen and examined on the medical floor, he is alert and oriented 3 in no distress, he is complaining of weakness otherwise he denies any specific complaints, he is still having significant orthostatic hypotension was significant drop in blood pressure when patient stands up. the re is no fever or chills no headache or dizziness no chest pain no shortness of breath no cough no nausea or vomiting no abdominal pain no diarrhea no blood in the stools no burning with urination no frequency or urgency no hematuria, there is no weakness or numbness in any of the extremities there is no change in vision speech or gait. Cardiology are following at this time Catapres is being discontinued and midodrine was added to medication regimen will continue to monitor closely. On 06/20/2021 patient was seen and examined on the medical floor he is alert and oriented 3 in no apparent distress, this morning he had an episode of palpitation and severe shortness of breath, EKG revealed SVT versus A. fib with RVR with a heart rate of 186 patient was transferred to [facility]. he was seen by [facility] rdiology and was started on IV amiodarone, chest x-ray was done today and was suspicious for right sided infiltrate suggestive of pneumonia patient is stating that he is having some cough with yellow sputum production WBC is low, patient was started on IV antibiotic Zosyn, and pulmonary consultation was requested. Patient denies any fever or chills no headache or dizziness no chest pain no nausea or vomiting no abdominal pain no diarrhea and no urinary symptoms. On 06/21/2021 patient was seen and examined on the medical floor he is complaining of cough otherwise he denies any complaints at this time there is no fever or chills no headache or dizziness no chest pain no shortness of breath no nausea or vomiting no abdominal pain no diarrhea no blood in the stools no burning with urination no frequency or urgency and no hematuria, yesterday patient had an episode of A. fib with RVR, he was started on IV amiodarone by cardiology and was transferred to telemetry floor, also chest x-ray revealed evidence of right basilar infiltrate, he was started on IV Zosyn pulmonary consultation was requested, sputum culture was ordered On 06/22/2021 Patient was seen and examined on the medical floor, he is alert and oriented x 3 in no distress, he is complaining of cough otherwise he denies any complaints there is no fever or chills no headache or dizziness no chest pain no shortness of breath no palpitation no cough no nausea or vomiting no abdominal pain no diarrhea no blood in the stools no burning with urination no frequency or urgency and no hematuria, there is no weakness or numbness in any of the extremities no change in vision speech or gait. Patient failed swallow evaluation with all food consistency today, he is kept nothing by mouth consultation for Dr. Zacarias for PEG tube placement was initiated. On 06/23/2021 patient is alert and oriented 3. Patient is resting comfortably in bed. Patient currently maintained on amiodarone drip per cardiology. Patient also maintained on IV Zosyn for aspiration pneumonia. Surgical services have been consulted for PEG tube placement. At this time pulmonary, cardiology, nephrology and surgical services following. Repeat labs have been ordered. Patient is still complaining of chest congestion and cough. Patient denies chest pain. Patient denies nausea vomiting or diarrhea. Patient denies any urinary burning or frequency. On 06/24/2021 Patient was seen and examined on the medical floor, he is alert and oriented x 3 in no distress, he denies any complaints there is no fever or chills no headache or dizziness no chest pain no shortness of breath no palpitation no cough no nausea or vomiting no abdominal pain no diarrhea no blood in the stools no burning with urination no frequency or urgency and no hematuria, there is no weakness or numbness in any of the extremities no change in vision speech, today INR is 5.3 Coumadin is on hold Will give 1 dose of vitamin K 2 mg IV patient is nothing by mouth , he is awaiting PEG tube placement On 06/24/2021 patient is alert and oriented 3 INR 1.2. Patient maintained on IV amiodarone. Tentative plans for PEG tube placement tomorrow per surgical services. . At this time patient remains with productive cough. Patient denies chest pain. Patient denies nausea vomiting or diarrhea. Patient denies any urinary burning or frequency On 06/26/2021 Patient was seen and examined on the medical floor, he is alert and oriented x 3 in no distress, he denies any complaints there is no fever or chills no headache or dizziness no chest pain no shortness of breath no palp itation no cough no nausea or vomiting no abdominal pain no diarrhea no blood in the stools no burning with urination no frequency or urgency and no hematuria, there is no weakness or numbness in any of the extremities no change in vision speech, patient received vitamin K his INR is low we are awaiting PEG tube placement On 06/27/2021 Patient was seen and examined on the medical floor, he is alert and oriented x 3 in no distress, he denies any complaints there is no fever or chills no headache or dizziness no chest pain no shortness of breath no palpitation no cough no nausea or vomiting no abdominal pain no diarrhea no blood in the stools no burning with urination no frequency or urgency and no hematuria, there is no weakness or numbness in any of the extremities no change in vision speech, Patient underwent PEG tube placement and was started on PEG tube feeding, will continue to follow closely will recheck chest x-ray in a.m. On 06/28/2021 patient alert and oriented 3. Repeat chest x-ray showing worsening interstitial edema with superimposed infiltrates versus atelectasis. Small pleural effusion. We'll reconsult pulmonary services. Patient remains on IV Zosyn. Patient does have PEG tube in place tube feeds running. At this time patient denies chest pain. Patient does report occasional cough with sputum production. Patient denies nausea vomiting or diarrhea. Patient denies any urinary burning or frequency. On 06/29/2021 patient was seen and examined on the telemetry floor, he is alert and oriented 3 in no distress, he is still complaining of shortness of breath and occasional cough, his chest x-ray done yesterday reveals worsening of the pulmonary infiltrate, he is still maintained on IV Zosyn, and is maintained on oxygen at 5 L via nasal cannula, pulmonary consultation was resubmitted yesterday for reevaluation and further advice regarding antibiotic treatment and further management of his pulmonary consultation, at this time patient is not ready yet for discharge to a rehab center, otherwise he denies any complaints there is no fever or chills no chest pain no nausea or vomiting no abdominal pain no diarrhea no blood in the stools and no urinary symptoms PEG tube site is clear. 06/30/2021 patient alert and oriented 3. Patient still having significant sputum production. Will order repeat sputum sample consults infectious disease services. Patient's liver enzymes also significantly elevated. Lipitor DC'd. Liver ultrasound will be ordered. Patient denies chest pain. Patient denies nausea vomiting or diarrhea. Patient denies any urinary burning or frequency On 07/01/2021 Patient was seen and examined on the medical floor, he is alert and oriented x 3 in no distress, he denies any complaints there is no fever or chills no headache or dizziness no chest pain no shortness of breath no palpitation no cough no nausea or vomiting no abdominal pain no diarrhea no blood in the stools no burning with urination no frequency or urgency and no hematuria, there is no weakness or numbness in any of the extremities no change in vision speech. Liver enzymes are quite elevated but are improving gradually, Lipitor was discontinued and Tylenol was discontinued, will continue to monitor On 07/02/2021 Patient is alert and oriented x 3 in no distress, he denies any complaints there is no fever or chills no headache or dizziness no chest pain no shortness of breath no palpitation no cough no nausea or vomiting no abdominal pain no diarrhea no blood in the stools no burning with urination no frequency or urgency and no hematuria, there is no weakness or numbness in any of the extremities no change in vision speech. Liver enzymes are quite elevated but are improving gradually, Lipitor was discontinued and Tylenol was discontinued, will continue to monitor, kidney function remains slightly elevated. On 07/03/2021 Patient was seen and examined on the medical floor, he is alert and oriented x 3 in no distress, he denies any complaints there is no fever or chills no headache or dizziness no chest pain no shortness of breath no palpitation no cough no nausea or vomiting no abdominal pain no diarrhea no blood in the stools no burning with urination no frequency or urgency and no hematuria, there is no weakness or numbness in any of the extremities no change in vision speech or gait. At this time liver enzymes are improving gradually will continue to monitor closely patient lost his IV access, will proceed with midline placement in a.m. On 07/04/2021 Patient is alert and oriented x 3 in no distress, he denies any complaints there is no fever or chills no headache or dizziness no chest pain no shortness of breath no palpitation no cough no nausea or vomiting no abdominal pain no diarrhea no blood in the stools no burning with urination no frequency or urgency and no hematuria, there is no weakness or numbness in any of the extremities no change in vision speech or gait. At this time liver enzymes are improving gradually will continue to monitor closely patient lost his IV access, will proceed with midline placement in a.m. on 07/05/2021 patient is alert and oriented 3. Chest CT completed showing b ilateral pleural effusions with right lower lobe infiltrate as well as patchy areas of infiltrate in the right upper lobe. Pulmonary and infectious disease services are following. Patient remains on Augmentin and Diflucan. Patient also maintained on IV Lasix. At this time patient denies chest pain. Patient denies nausea vomiting or diarrhea. Patient denies any urinary burning or frequency On 07/07/2021 patient is alert and oriented 3. Creatinine increasing to 2.16 and bun 39. Will add 250 mL of free water every 6 hours. Repeat chest x-ray ordered per pulmonary. Patient remains on Lasix. Pulmonary nephrology infectious disease service is following. At this time patient denies chest pain or shortness breath. Patient denies nausea vomiting or diarrhea. Patient denies any urinary burning or frequency On 07/08/2021 patient was seen and examined on the medical floor he is alert and oriented 3 in no apparent distress there is no fever or chills no headache or dizziness no chest pain no shortness of breath no cough no nausea or vomiting no abdominal pain no diarrhea no blood in the stools no burning with urination no frequency or urgency and no hematuria. He is receiving tube feeding via PEG tube, he is receiving physical therapy, possible transfer to a rehab unit early next week. On 07/09/2021 1 patient is alert and oriented 3. Creatinine increasing to 2.31 and bun 42. Potassium 5.5 nephrology services are following. Lasix has been DC'd per nephrology. Repeat labs will be ordered. Patient remains on tube feedings. Antibiotic Augmentin per ID patient being worked up for DC to ECF facility. At this time patient denies chest pain or shortness breath. Patient denies nausea vomiting or diarrhea. Patient denies any urinary burning or frequency On 07/10/2021 patient is alert and oriented 3. Patient was given IV Lasix history for elevated potassium per nephrology awaiting lab work to assess kidney function today. Patient has been cleared by pulmonary services but will likely stay due to worsening kidney function. This time patient denies chest pain or shortness of breath. Patient denies nausea vomiting or diarrhea. Patient denies any urinary burning or frequency On 07/11/2021 Patient was seen and examined on the medical floor, he is alert and oriented x 3 in no distress, he denies any complaints there is no fever or chills no headache or dizziness no chest pain no shortness of breath no palpitation no cough no nausea or vomiting no abdominal pain no diarrhea no blood in the stools no burning with urination no frequency or urgency and no hematuria, there is no weakness or numbness in any of the extremities no change in vision speech or gait. Patient is improving gradually will discuss with infectious disease. Possibility of discharge to rehab soon and antibiotic at the time of discharge On 07/12/2021 patient alert and oriented 3. Creatinine 2.51, bun 47 and potassium 5.8. Patient did receive 1 dose of IV Lasix yesterday. Awaiting nephrology recommendation. Patient has completed antibiotic course. No need for antibiotics per infectious disease this time patient denies chest pain. Patient denies nausea vomiting or diarrhea. Patient denies any urinary burning or frequency On 07/13/2021 patient was seen and examined on the medical floor he is alert and oriented 3 in no distress there is no fever or chills no headache or dizziness no chest pain no shortness of breath no cough no nausea or vomiting no abdominal pain no diarrhea and no urinary symptoms. Time we are awaiting adjustment of medications and clearance by nephrology for transfer to rehab On 07/14/2023 1 patient is alert and oriented 3. Potassium remains elevated at 5.4. Bun and creatinine are trending down. Neurology services continuing to workup patient. Patient denies any chest pain or shortness breath. Patient denies nausea vomiting or diarrhea. Patient denies any urinary burning or frequency Objective - Vital Signs Vital signs: Vital Signs Temp 97.7 F 07/14/21 07:42 Pulse 76 07/14/21 09:01 Resp 17 07/14/21 07:42 BP 132/72 07/14/21 07:42 Pulse Ox 91 L 07/14/21 07:42 Intake & Output 07/13/21 07/14/21 07/14/21 18:59 06:59 18:59 Intake Total 840 720 Output Total 450 Balance 840 270 Weight 82 kg Intake: Oral 0 Tube Feeding 720 720 Other 120 Output: Urine 450 Coude 450 Other: Voiding Method Indwelling Catheter - Exam In general patient is alert and responsive in no distress HEENT head normocephalic and atraumatic Neck is supple no JVD no goiter no lymphadenopathy no carotid bruit Chest examination is clear to auscultation no crackles no wheezing Cardiac exam reveals regular heart sounds S1 and S2 no gallops no murmurs Abdomen is soft nontender no organomegaly with normal bowel sounds Extremity exam reveals no edema no cyanosis or clubbing Neurological examination reveals no gross focal deficits - Labs CBC & Chem 7: 07/14/21 05:24 07/14/21 05:24 Labs: Abnormal Lab Results - Last 24 Hours (Table) 10/07/21 10/07/21 10/07/21 Range/Units 06:06 11:26 16:44 RBC (4.40-5.60) X 10*6/uL Hgb (13.0-17.0) g/dL Hct (39.6-50.0) % MCV (80.0-97.0) fL MCH (27.0-32.0) pg MCHC (32.0-37.0) g/dL RDW (11.5-14.5) % Monocytes # (0.20-1.00) X 10*3/uL PT (9.0-12.0) sec INR (<1.2) Sodium 133 L (137-145) mmol/L Potassium 5.6 H (3.5-5.1) mmol/L Chloride 97 L (98-107) mmol/L BUN 47 H (9-20) mg/dL Creatinine 2.19 H (0.66-1.25) mg/dL Glucose 125 H (74-99) mg/dL POC Glucose (mg/dL) 163 H 124 H (75-99) mg/dL 07/14/21 07/14/21 07/14/21 Range/Units 01:05 05:24 05:24 RBC 3.25 L (4.40-5.60) X 10*6/uL Hgb 11.1 L (13.0-17.0) g/dL Hct 36.3 L (39.6-50.0) % MCV 111.7 H (80.0-97.0) fL MCH 34.2 H (27.0-32.0) pg MCHC 30.6 L (32.0-37.0) g/dL RDW 16.4 H (11.5-14.5) % Monocytes # 1.05 H (0.20-1.00) X 10*3/uL PT 22.5 H (9.0-12.0) sec INR 2.3 H (<1.2) Sodium (137-145) mmol/L Potassium (3.5-5.1) mmol/L Chloride (98-107) mmol/L BUN (9-20) mg/dL Creatinine (0.66-1.25) mg/dL Glucose (74-99) mg/dL POC Glucose (mg/dL) 118 H (75-99) mg/dL 07/14/21 07/14/21 Range/Units 05:24 05:26 RBC (4.40-5.60) X 10*6/uL Hgb (13.0-17.0) g/dL Hct (39.6-50.0) % MCV (80.0-97.0) fL MCH (27.0-32.0) pg MCHC (32.0-37.0) g/dL RDW (11.5-14.5) % Monocytes # (0.20-1.00) X 10*3/uL PT (9.0-12.0) sec INR (<1.2) Sodium 134 L (137-145) mmol/L Potassium 5.4 H (3.5-5.1) mmol/L Chloride 97 L (98-107) mmol/L BUN 47 H (9-20) mg/dL Creatinine 2.15 H (0.66-1.25) mg/dL Glucose (74-99) mg/dL POC Glucose (mg/dL) 104 H (75-99) mg/dL Assessment and Plan Plan: Fall at home with unclear history whether patient had a syncopal episode or loss of consciousness Episode of chest pain while in the ambulance Atrial fibrillation with rapid ventricular response. Underlying history of paroxysmal atrial fibrillation, maintained on Coumadin Evidence of dehydration with electrolyte imbalance with hyponatremia and hyperkalemia Underlying history of chronic kidney disease Underlying history of jkw-pekpizp-tckmiouig diabetes mellitus, no evidence of hypoglycemia Underlying history of hypertension Previous history of cerebellar stroke. Right basilar infiltrate suggestive of pneumonia completed course of antibiotic Dysphagia. PEG tube placement per Dr. ordonez Elevated liver enzymes. Lipitor DC'd. Liver numbers improved Acute kidney injury with hyperkalemia. Nephrology services are following. IV Lasix given. Repeat labs ordered DVT prophylaxis Coumadin. GI prophylaxis Pepcid Pulmonary, cardiology, nephrology and surgical services following s/p peg tube placement Repeat labs ordered PT OT services consulted Social work consulted for possible ECF placement Per ID no need for antibiotics upon discharge completed course of antibiotics
[2021-07-14] MEDS: CYANOCOBALAMIN 500 MCG TAB PO SCH (10:07)
[2021-07-14] MEDS: FAMOTIDINE 20 MG TAB PO SCH (10:07)
[2021-07-14] MEDS: METOPROLOL TARTRATE 25 MG TAB PO SCH ×2 (10:07→16:16)
[2021-07-14] MEDS: AMIODARONE 200 MG TAB PO SCH ×2 (10:07→10:08)
[2021-07-14] MEDS: FOLIC ACID 1 MG TAB PO SCH (10:07)
[2021-07-14] MEDS: VENLAFAXINE HCL 75 MG TAB PO SCH (10:09)
--- NOTE | 2021-07-14 10:16 | P.DS ---
Providers Date of admission: 06/15/21 06:28 Expected date of discharge: 07/14/21 Attending physician: Artur Schilling Consults: 06/15/21 15:40 Consult Physician Routine Consulting Provider: Kong Iqbal Consult Reason/Comments: Fall, history of cerebellar stroke, weakness Do you want consulting provider notified?: Yes 06/15/21 15:43 Consult Physician Routine Consulting Provider: Mojgan Underwood Consult Reason/Comments: CKD, hyperkalemia Do you want consulting provider notified?: Yes 06/20/21 13:29 Consult Physician Routine Consulting Provider: Kim Barreto Consult Reason/Comments: possible pneumonia Do you want consulting provider notified?: Yes 06/22/21 16:20 Consult Physician Routine Consulting Provider: Yousuf Zacarias Consult Reason/Comments: peg tube placement Do you want consulting provider notified?: Yes 06/28/21 09:06 Consult Physician Routine Consulting Provider: Kim Barreto Consult Reason/Comments: worsening lung function Do you want consulting provider notified?: Yes 06/30/21 09:29 Consult Physician Routine Consulting Provider: Layton Cerna Consult Reason/Comments: worsening pneumonia Do you want consulting provider notified?: Yes 07/04/21 10:20 Consult Physician Routine Consulting Provider: Rahul Jarrett Consult Reason/Comments: possible rehab admission Do you want consulting provider notified?: Yes Primary care physician: Giovanna Jama Hospital Course: Discharge diagnosis Fall at home with unclear history whether patient had a syncopal episode or loss of consciousness Episode of chest pain while in the ambulance Atrial fibrillation with rapid ventricular response. Underlying history of paroxysmal atrial fibrillation, maintained on Coumadin Evidence of dehydration with electrolyte imbalance with hyponatremia and hyperkalemia Underlying history of chronic kidney disease Underlying history of hdu-vcxhwby-bqliuwwjg diabetes mellitus, no evidence of hypoglycemia Underlying history of hypertension Previous history of cerebellar stroke. Right basilar infiltrate suggestive of pneumonia completed course of antibiotic Dysphagia. PEG tube placement per Dr. ordonez Elevated liver enzymes. Lipitor DC'd. Liver numbers improved Acute kidney injury with hyperkalemia. Nephrology services are following. IV Lasix given. Repeat labs ordered. Patient started on Kayexalate 15 g weekly Hospital course Everett Juárez, is a 61-year-old male patient of Dr. Jama, who presented to [facility] emergency room after sustaining a fall, and complaining of generalized weakness and dizziness, patient is not clear whether he passed out or had any loss of consciousness. Patient was also complaining of chest pain in the EMS, EKG was within normal limits and troponin level was less than 0.01 He was evaluated in the emergency room vital examination on presentation revealed a temperature of 97.4 pulse 71 respirations 16 blood pressure 87/50 pulse ox 94% on room air Laboratory data revealed a white blood count of 8.6 hemoglobin 12.0 platelet count 338 INR 1.2 sodium 128 potassium 6.2 chloride 99 CO2 22 BUN 17 creatinine 2.01 lactic acid on presentation 2.1 urine analysis did not reveal evidence of significant infection. Testing in the emergency room revealed EKG revealed normal sinus rhythm normal EKG chest x-ray done in the emergency room revealed no acute lung disease there was prominent pulmonary leon that could be related to adenopathy. Computed tomography scan of the brain was done in the emergency room and revealed e vidence of old large right cerebellar hemisphere infarct, cerebral atrophy, with no acute intracranial abnormality, and no cervical spine fracture. Patient was admitted to medical floor for further evaluation and treatment. Past medical history is significant for history of hypertension, history of hyperlipidemia, history of chronic kidney disease, history of cny-ueauuhy-egseffyfd diabetes mellitus, history of previous stroke, history of paroxysmal atrial fibrillation maintained on Coumadin, history of COPD, patient still smoke a few cigarettes per day, he denies alcohol use. On review of systems Patient is alert and responsive in no distress, he denies any complaints there is no fever or chills no headache or dizziness no chest pain no shortness of breath no palpitation no cough no nausea or vomiting no abdominal pain no diarrhea no blood in the stools no burning with urination no frequency or urgency and no hematuria, there is no weakness or numbness in any of the extremities no change in vision speech, gait was not tested. On 06/16/2021 patient was seen and examined on the telemetry floor he is alert and oriented 3 in no apparent distress he is still complaining of dizziness and weakness otherwise he denies any complaints there is no fever or chills no headache no chest pain no shortness of breath no cough no palpitation no nausea or vomiting no abdominal pain no diarrhea no blood in the stools no burning with urination no frequency or urgency and no hematuria there is no weakness or numbness in any of the extremities no change in vision or in speech On 06/17/2021 Patient was seen and examined on the medical floor, he is alert and oriented x 3 in no distress, he denies any complaints there is no fever or chills no headache or dizziness no chest pain no shortness of breath no palpitation no cough no nausea or vomiting no abdominal pain no diarrhea no blood in the stools no burning with urination no frequency or urgency and no hematuria, there is no weakness or numbness in any of the extremities no change in vision or speech, gait was not tested at this time, patient had significant orthostatic hypotension, this was discussed with cardiology, and dose of Ca tapres was adjusted down to 0.1 mg by mouth twice a day, patient will be reevaluated by cardiology in a.m. On 06/18/2021 patient was seen and examined on the medical floor, he is alert and oriented 3 in no distress, he is complaining of weakness otherwise he denies any specific complaints, there is no fever or chills no headache or dizziness no chest pain no shortness of breath no cough no nausea or vomiting no abdominal pain no diarrhea no blood in the stools no burning with urination no frequency or urgency no hematuria, there is no weakness or numbness in any of the extremities there is no change in vision speech or gait. Repeat orthostatic hypotension reveals significant drop while standing, cardiology are following, yesterday dose of Catapres was decreased to 0.1 by mouth twice daily, awaiting further recommendation from cardiology On 06/19/2021 patient was seen and examined on the medical floor, he is alert and oriented 3 in no distress, he is complaining of weakness otherwise he denies any specific complaints, he is still having significant orthostatic hypotension was significant drop in blood pressure when patient stands up. there is no fever or chills no headache or dizziness no chest pain no shortness of breath no cough no nausea or vomiting no abdominal pain no diarrhea no blood in the stools no burning with urination no frequency or urgency no hematuria, there is no weakness or numbness in any of the extremities there is no change in vision speech or gait. Cardiology are following at this time Catapres is being discontinued and midodrine was added to medication regimen will continue to monitor closely. On 06/20/2021 patient was seen and examined on the medical floor he is alert and oriented 3 in no apparent distress, this morning he had an episode of palpitation and severe shortness of breath, EKG revealed SVT versus A. fib with RVR with a heart rate of 186 patient was transferred to [facility]. he was seen by cardiology and was started on IV amiodarone, chest x-ray was done today and was suspicious for right sided infiltrate suggestive of pneumonia patient is stating that he is having some cough with yellow sputum production WBC is low, patient was started on IV antibiotic Zosyn, and pulmonary consultation was requested. Patient denies any fever or chills no headache or dizziness no chest pain no nausea or vomiting no abdominal pain no diarrhea and no urinary symptoms. On 06/21/2021 patient was seen and examined on the medical floor he is complaining of cough otherwise he denies any complaints at this time there is no fever or chills no headache or dizziness no chest pain no shortness of breath no nausea or vomiting no abdominal pain no diarrhea no blood in the stools no burning with urination no frequency or urgency and no hematuria, yesterday patient had an episode of A. fib with RVR, he was started on IV amiodarone by cardiology and was transferred to telemetry floor, also chest x-ray revealed evidence of right basilar infiltrate, he was started on IV Zosyn pulmonary consultation was requested, sputum culture was ordered On 06/22/2021 Patient was seen and examined on the medical floor, he is alert and oriented x 3 in no distress, he is complaining of cough otherwise he denies any complaints there is no fever or chills no headache or dizziness no chest pain no shortness of breath no palpitation no cough no nausea or vomiting no abdominal pain no diarrhea no blood in the stools no burning with urination no frequency or urgency and no hematuria, there is no weakness or numbness in any of the extremities no change in vision speech or gait. Patient failed swallow evaluation with all food consistency today, he is kept nothing by mouth consultation for Dr. Zacarias for PEG tube placement was initiated. On 06/23/2021 patient is alert and oriented 3. Patient is resting comfortably in bed. Patient currently maintained on amiodarone drip per cardiology. Patient also maintained on IV Zosyn for aspiration pneumonia. Surgical services have been consulted for PEG tube placement. At this time pulmonary, cardiology, nephrology and surgical services following. Repeat labs have been ordered. Patient is still complaining of chest congestion and cough. Patient denies chest pain. Patient denies nausea vomiting or diarrhea. Patient denies any urinary burning or frequency. On 06/24/2021 Patient was seen and examined on the medical floor, he is alert and oriented x 3 in no distress, he denies any complaints there is no fever or chills no headache or dizziness no chest pain no shortness of breath no palpitation no cough no nausea or vomiting no abdominal pain no diarrhea no blood in the stools no burning with urination no frequency or urgency and no hematuria, there is no weakness or numbness in any of the extremities no change in vision speech, today INR is 5.3 Coumadin is on hold Will give 1 dose of vitamin K 2 mg IV patient is nothing by mouth , he is awaiting PEG tube placement On 06/24/2021 patient is alert and oriented 3 INR 1.2. Patient maintained on IV amiodarone. Tentative plans for PEG tube placement tomorrow per surgical services. . At this time patient remains with productive cough. Patient denies chest pain. Patient denies nausea vomiting or diarrhea. Patient denies any urinary burning or frequency On 06/26/2021 Patient was seen and examined on the medical floor, he is alert and oriented x 3 in no distress, he denies any complaints there is no fever or chills no headache or dizziness no chest pain no shortness of breath no palpitation no cough no nausea or vomiting no abdominal pain no diarrhea no blood in the stools no burning with urination no frequency or urgency and no hematuria, there is no weakness or numbness in any of the extremities no change in vision speech, patient received vitamin K his INR is low we are awaiting PEG tube placement On 06/27/2021 Patient was seen and examined on the medical floor, he is alert and oriented x 3 in no distress, he denies any complaints there is no fever or chills no headache or dizziness no chest pain no shortness of breath no palpitation no cough no nausea or vomiting no abdominal pain no diarrhea no blood in the stools no burning with urination no frequency or urgency and no hematuria, there is no weakness or numbness in any of the extremities no change in vision speech, Patient underwent PEG tube placement and was started on PEG tube feeding, will continue to follow closely will recheck chest x-ray in a.m. On 06/28/2021 patient alert and oriented 3. Repeat chest x-ray showing worsening interstitial edema with superimposed infiltrates versus atelectasis. Small pleural effusion. We'll reconsult pulmonary services. Patient remains on IV Zosyn. Patient does have PEG tube in place tube feeds running. At this time patient denies chest pain. Patient does report occasional cough with sputum production. Patient denies nausea vomiting or diarrhea. Patient denies any urinary burning or frequency. On 06/29/2021 patient was seen and examined on the telemetry floor, he is alert and oriented 3 in no distress, he is still complaining of shortness of breath and occasional cough, his chest x-ray done yesterday reveals worsening of the pulmonary infiltrate, he is still maintained on IV Zosyn, and is maintained on oxygen at 5 L via nasal cannula, pulmonary consultation was resubmitted yes terday for reevaluation and further advice regarding antibiotic treatment and further management of his pulmonary consultation, at this time patient is not ready yet for discharge to a rehab center, otherwise he denies any complaints there is no fever or chills no chest pain no nausea or vomiting no abdominal pain no diarrhea no blood in the stools and no urinary symptoms PEG tube site is clear. 06/30/2021 patient alert and oriented 3. Patient still having significant sputum production. Will order repeat sputum sample consults infectious disease services. Patient's liver enzymes also significantly elevated. Lipitor DC'd. Liver ultrasound will be ordered. Patient denies chest pain. Patient denies nausea vomiting or diarrhea. Patient denies any urinary burning or frequency On 07/01/2021 Patient was seen and examined on the medical floor, he is alert and oriented x 3 in no distress, he denies any complaints there is no fever or chills no headache or dizziness no chest pain no shortness of breath no palpitation no cough no nausea or vomiting no abdominal pain no diarrhea no blood in the stools no burning with urination no frequency or urgency and no hematuria, there is no weakness or numbness in any of the extremities no change in vision speech. Liver enzymes are quite elevated but are improving gradually, Lipitor was discontinued and Tylenol was discontinued, will continue to monitor On 07/02/2021 Patient is alert and oriented x 3 in no distress, he denies any complaints there is no fever or chills no headache or dizziness no chest pain no shortness of breath no palpitation no cough no nausea or vomiting no abdominal pain no diarrhea no blood in the stools no burning with urination no frequency or urgency and no hematuria, there is no weakness or numbness in any of the extremities no change in vision speech. Liver enzymes are quite elevated but are improving gradually, Lipitor was discontinued and Tylenol was discontinued, will continue to monitor, kidney function remains slightly elevated. On 07/03/2021 Patient was seen and examined on the medical floor, he is alert and oriented x 3 in no distress, he denies any complaints there is no fever or chills no headache or dizziness no chest pain no shortness of breath no palpitation no cough no nausea or vomiting no abdominal pain no diarrhea no blood in the stools no burning with urination no frequency or urgency and no hematuria, there is no weakness or numbness in any of the extremities no change in vision speech or gait. At this time liver enzymes are improving gradually will continue to monitor closely patient lost his IV access, will proceed with midline placement in a.m. On 07/04/2021 Patient is alert and oriented x 3 in no distress, he denies any complaints there is no fever or chills no headache or dizziness no chest pain no shortness of breath no palpitation no cough no nausea or vomiting no abdominal pain no diarrhea no blood in the stools no burning with urination no frequency or urgency and no hematuria, there is no weakness or numbness in any of the extremities no change in vision speech or gait. At this time liver enzymes are improving gradually will continue to monitor closely patient lost his IV access, will proceed with midline placement in a.m. on 07/05/2021 patient is alert and oriented 3. Chest CT completed showing bilateral pleural effusions with right lower lobe infiltrate as well as patchy areas of infiltrate in the right upper lobe. Pulmonary and infectious disease services are following. Patient remains on Augmentin and Diflucan. Patient also maintained on IV Lasix. At this time patient denies chest pain. Patient denies nausea vomiting or diarrhea. Patient denies any urinary burning or frequency On 07/07/2021 patient is alert and oriented 3. Creatinine increasing to 2.16 and bun 39. Will add 250 mL of free water every 6 hours. Repeat chest x-ray ordered per pulmonary. Patient remains on Lasix. Pulmonary nephrology infectious disease service is following. At this time patient denies chest pain or shortness breath. Patient denies nausea vomiting or diarrhea. Patient denies any urinary burning or frequency On 07/08/2021 patient was seen and examined on the medical floor he is alert and oriented 3 in no apparent distress there is no fever or chills no headache or dizziness no chest pain no shortness of breath no cough no nausea or vomiting no abdominal pain no diarrhea no blood in the stools no burning with urination no frequency or urgency and no hematuria. He is receiving tube feeding via PEG tube, he is receiving physical therapy, possible transfer to a rehab unit early next week. On 07/09/2021 1 patient is alert and oriented 3. Creatinine increasing to 2.31 and bun 42. Potassium 5.5 nephrology services are following. Lasix has been DC'd per nephrology. Repeat labs will be ordered. Patient remains on tube feedings. Antibiotic Augmentin per ID patient being worked up for DC to ECF facility. At this time patient denies chest pain or shortness breath. Patient denies nausea vomiting or diarrhea. Patient denies any urinary burning or frequency On 07/10/2021 patient is alert and oriented 3. Patient was given IV Lasix history for elevated potassium per nephrology awaiting lab work to assess kidney function today. Patient has been cleared by pulmonary services but will likely stay due to worsening kidney function. This time patient denies chest pain or shortness of breath. Patient denies nausea vomiting or diarrhea. Patient denies any urinary burning or frequency On 07/11/2021 Patient was seen and examined on the medical floor, he is alert and oriented x 3 in no distress, he denies any complaints there is no fever or chills no headache or dizziness no chest pain no shortness of breath no palpitation no cough no nausea or vomiting no abdominal pain no diarrhea no blood in the stools no burning with urination no frequency or urgency and no hematuria, there is no weakness or numbness in any of the extremities no change in vision speech or gait. Patient is improving gradually will discuss with infectious disease. Possibility of discharge to rehab soon and antibiotic at the time of discharge On 07/12/2021 patient alert and oriented 3. Creatinine 2.51, bun 47 and potassium 5.8. Patient did receive 1 dose of IV Lasix yesterday. Awaiting nephrology recommendation. Patient has completed antibiotic course. No need for antibiotics per infectious disease this time patient denies chest pain. Patient denies nausea vomiting or diarrhea. Patient denies any urinary burning or frequency On 07/13/2021 patient was seen and examined on the medical floor he is alert and oriented 3 in no distress there is no fever or chills no headache or dizziness no chest pain no shortness of breath no cough no nausea or vomiting no abdominal pain no diarrhea and no urinary symptoms. Time we are awaiting adjustment of medications and clearance by nephrology for transfer to rehab On 07/14/2023 1 patient is alert and oriented 3. Potassium remains elevated at 5.4. Bun and creatinine are trending down. Did discuss case with nephrology services. Patient will be discharged with Kayexalate 15 g weekly. Patient will be DC'd to [facility] facility. Recommend repeat CBC and CMP within 3 days. Patient to follow up with cardiology and nephrology services for further management. Patient Condition at Discharge: Stable Plan - Discharge Summary Discharge Rx Participant: No New Discharge Prescriptions: New Amiodarone [Cordarone] 400 mg PO BID tab Warfarin [Coumadin] 3 mg PO DAILY@1800 tab INSULIN ASPART (NovoLOG) [NovoLOG (formulary)] 0 unit SQ 0000,0600,1200,1800 ml Cyanocobalamin [Vitamin B-12] 1,000 mcg PO DAILY tab Sodium Polystyrene Sulfonate [Kayexalate] 15 gm PO WEEKLY #60 ml Darbepoetin Soren [Aranesp] 40 mcg SQ Q7D each Folic Acid 1 mg PO DAILY tab Midodrine [ProAmatine] 10 mg PO AC-TID tab Continue Venlafaxine HCl [Effexor] 150 mg PO BID Metoprolol Tartrate [Lopressor] 25 mg PO TID Famotidine [Pepcid] 40 mg PO BID Ipratropium-Albuterol Nebulize [Duoneb 0.5 mg-3 mg/3 ml Soln] 3 ml INHALATION RT-QID ml Budesonide-Formot 160-4.5 Mcg [Symbicort 160-4.5 Mcg Inhaler] 2 puff INHALATION RT-BID puff Discontinued Atorvastatin [Lipitor] 80 mg PO HS Warfarin [Coumadin] 5 mg PO DAILY cilostazoL [Pletal] 50 mg PO BID cloNIDine HCL [Catapres] 0.2 mg PO BID Enalapril [Vasotec] 10 mg PO BID Tamsulosin [Flomax] 0.4 mg PO DAILY Pioglitazone [Actos] 30 mg PO DAILY tab Discharge Medication List Famotidine [Pepcid] 40 mg PO BID 04/06/14 [History] Metoprolol Tartrate [Lopressor] 25 mg PO TID 04/06/14 [History] Venlafaxine HCl [Effexor] 150 mg PO BID 04/06/14 [History] Budesonide-Formot 160-4.5 Mcg [Symbicort 160-4.5 Mcg Inhaler] 2 puff INHALATION RT-BID puff 03/25/21 [Rx] Ipratropium-Albuterol Nebulize [Duoneb 0.5 mg-3 mg/3 ml Soln] 3 ml INHALATION RT-QID ml 03/25/21 [Rx] Amiodarone [Cordarone] 400 mg PO BID tab 07/14/21 [Rx] Cyanocobalamin [Vitamin B-12] 1,000 mcg PO DAILY tab 07/14/21 [Rx] Darbepoetin Soren [Aranesp] 40 mcg SQ Q7D each 07/14/21 [Rx] Folic Acid 1 mg PO DAILY tab 07/14/21 [Rx] INSULIN ASPART (NovoLOG) [NovoLOG (formulary)] 0 unit SQ 0000,0600,1200,1800 ml 07/14/21 [Rx] Midodrine [ProAmatine] 10 mg PO AC-TID tab 07/14/21 [Rx] Sodium Polystyrene Sulfonate [Kayexalate] 15 gm PO WEEKLY #60 ml 07/14/21 [Rx] Warfarin [Coumadin] 3 mg PO DAILY@1800 tab 07/14/21 [Rx] Follow up Appointment(s)/Referral(s): Mojgan Underwood MD [STAFF PHYSICIAN] - 1 Week Giovanna Jama MD [Primary Care Provider] - 1-2 days Bright Gonzalez MD [STAFF PHYSICIAN] - 2 Weeks Activity/Diet/Wound Care/Special Instructions: CBC and CMP within 3 days of admission to ECF facility tube feedings Nepro at goal of 60ml
[2021-07-14] MEDS: MIDODRINE 5 MG TAB PO SCH ×2 (10:28→13:33)
[2021-07-14] MEDS: FLUCONAZOLE ORAL SUSP 1,400 MG/35 ML BOTTLE PO SCH (11:56)
--- NOTE | 2021-07-14 12:23 | PN ---
PROGRESS NOTE HISTORY: Patient is seen for followup for chronic kidney disease and chronic hyperkalemia. He is currently stable. The potassium has been staying at about 5.5-5.8. He received a dose of Kayexalate. Patient has an indwelling Lara catheter. PHYSICAL EXAMINATION: On examination today, blood pressure 132/72, heart rate 72 per minute. He is afebrile. The patient appears euvolemic with no evidence of edema bilateral lower extremities. APRON MAN exam has been grossly intact. LABS: Sodium 134, potassium 5.4, chloride 97, BUN 47, creatinine 2.1, hemoglobin 11.1 g/dL. ASSESSMENT: 1. Chronic kidney disease with solitary kidney and history of obstructive uropathy with urine retention currently with indwelling Lara catheter. Renal function has been stable. 2. Chronic kidney disease stage 3, baseline creatinine 1.6-2 with solitary kidney and history of obstructive uropathy. 3. History of left nephrectomy with left nephrostomy tube. 4. Chronic hyperkalemia with underlying history of obstructive uropathy currently with indwelling Lara catheter. No other obvious etiologies noted. Patient will need to continue with Kayexalate 1-2 times per week as outpatient with monitoring of labs as outpatient. He is maintained on tube feedings and these should be Nepro to avoid high potassium load. MMODL / IJN: [id number] /
[2021-07-14 12:33] LABS: Glucose,Whole Blood 123 mg/dL (75-99)
[2021-07-14 13:33] VITALS: BMI 25.2
[2021-07-14 14:47] VITALS: BP 129/88; TEMP 97.9
[2021-07-14 16:46] VITALS: PULSE 76
--- NOTE | 2021-07-17 10:21 | CDI ---
Documentation Clarification Form Date: 07/17/21 From: Araceli Iraheta Admit Date: 06/15/2021 06:28:00 AM Patient Name: Everett Juárez Visit Number: [id number] Discharge Date: 07/14/2021 04:57:00 PM ATTENTION: The Clinical Documentation Specialists (CDI) and [facility] Coding Staff appreciate your assistance in clarifying documentation. Please respond to the clarification below the line at the bottom and electronically sign. The CDI & [facility] Coding staff will review the response and follow-up if needed. Please note: Queries are made part of the Legal Health Record. If you have any questions, please contact the author of this message via ITS. Dr. Artur Schilling, Syncope is documented in ED Note, H&P, 5 out of 8 consults, several PNs and DS. Additional clarification regarding the etiology of the syncope is requested. History/risk factors: T2 DM w CKD, hypoglycemia, PVD, Hx of infarction w dysphagia, R sided weakness, HTN w chronic systolic CHF & CKD 3b Clinical Indicators: Presents following sitting on toilet and passed out with subsequent fall. On arrival BP 87/50, P 71, T 97.4. Labs: Carotid US: Mild to moderate atherosclerotic change bilaterally, no hemodynamic significant stenosis is identified in either internal carotid artery. 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 Echocardiogram: Overall left ventricular systolic function is normal with, an EF between 55 - 60 %. 06/15 EKG: Normal sinus rhythm Neuro consult: Syncopal spell, probably vasovagal. Patient became dizzy before syncope and was out for only a few seconds. Arrhythmia also in the differential. Doubt seizure, as there was no postictal state. Treatment: Echo, carotid doppler, neuro & nephrology consult on home coumadin and Pletal Please clarify the etiology of syncope, if known: [ ] Orthostatic Hypotension due to/type [ ] Paroxysmal atrial fibrillation [ ] Carotid Sinus Syncope [ ] Vasovagal [ ] Psychogenic Syncope [ ] ATN [ ] Other, please specify [ ] Unable to determine Unable to determine MTDD
== END 2021-07-14 16:57 | DRG 682 ==
LOC: EC 00:48 → 5NMEDONC 06:28 → 3SCARD 06-20 12:57 → 4SSUR 07-08 22:08 → UNDODISIN 07-10 16:07
PROVIDERS: ADMIT Internal Medicine; ATTEND Internal Medicine
PROC: 3E0G76Z Introduction of Nutritional Substance into Upper GI, Via Natural or Artificial Opening (ICD-10-PCS; 2021-06-26)
PROC: 0DH63UZ Insertion of Feeding Device into Stomach, Percutaneous Approach (ICD-10-PCS; principal; 2021-06-26 15:25)
DX: N17.0 Acute kidney failure with tubular necrosis (principal); J69.0 Pneumonitis due to inhalation of food and vomit; K72.00 Acute and subacute hepatic failure without coma; B37.0 Candidal stomatitis; E44.0 Moderate protein-calorie malnutrition; I69.351 Hemiplegia and hemiparesis following cerebral infarction affecting right dominant side; I47.1 Supraventricular tachycardia; I13.0 Hypertensive heart and chronic kidney disease with heart failure and stage 1 through stage 4 chronic kidney disease, or unspecified chronic kidney disease; I50.32 Chronic diastolic (congestive) heart failure; N13.8 Other obstructive and reflux uropathy; E87.2 Acidosis; E87.1 Hypo-osmolality and hyponatremia; I95.1 Orthostatic hypotension; E86.0 Dehydration; D63.1 Anemia in chronic kidney disease; I48.0 Paroxysmal atrial fibrillation; R55 Syncope and collapse; E11.649 Type 2 diabetes mellitus with hypoglycemia without coma; I27.22 Pulmonary hypertension due to left heart disease; E11.22 Type 2 diabetes mellitus with diabetic chronic kidney disease; E11.51 Type 2 diabetes mellitus with diabetic peripheral angiopathy without gangrene; J43.9 Emphysema, unspecified; N18.32 Chronic kidney disease, stage 3b; D86.0 Sarcoidosis of lung; Z20.822 Contact with and (suspected) exposure to COVID-19; I67.2 Cerebral atherosclerosis; R13.10 Dysphagia, unspecified; R16.0 Hepatomegaly, not elsewhere classified; D50.9 Iron deficiency anemia, unspecified; E86.1 Hypovolemia; E87.5 Hyperkalemia; R26.9 Unspecified abnormalities of gait and mobility; K80.20 Calculus of gallbladder without cholecystitis without obstruction; K82.8 Other specified diseases of gallbladder; E83.42 Hypomagnesemia; G47.33 Obstructive sleep apnea (adult) (pediatric); E78.5 Hyperlipidemia, unspecified; I69.391 Dysphagia following cerebral infarction; I69.398 Other sequelae of cerebral infarction; H54.61 Unqualified visual loss, right eye, normal vision left eye; E78.1 Pure hyperglyceridemia; I07.1 Rheumatic tricuspid insufficiency; K44.9 Diaphragmatic hernia without obstruction or gangrene; F32.9 Major depressive disorder, single episode, unspecified; R26.2 Difficulty in walking, not elsewhere classified; Z68.20 Body mass index [BMI] 20.0-20.9, adult; F17.210 Nicotine dependence, cigarettes, uncomplicated; Z71.6 Tobacco abuse counseling; R74.8 Abnormal levels of other serum enzymes; Z79.51 Long term (current) use of inhaled steroids; Z79.01 Long term (current) use of anticoagulants; Z79.02 Long term (current) use of antithrombotics/antiplatelets; Z79.84 Long term (current) use of oral hypoglycemic drugs; Z79.899 Other long term (current) drug therapy; Z87.442 Personal history of urinary calculi; Z86.14 Personal history of Methicillin resistant Staphylococcus aureus infection; Z90.5 Acquired absence of kidney; Z98.42 Cataract extraction status, left eye; Z98.41 Cataract extraction status, right eye; Z74.01 Bed confinement status; Z90.3 Acquired absence of stomach [part of]; Z87.440 Personal history of urinary (tract) infections; Z98.890 Other specified postprocedural states; Z71.3 Dietary counseling and surveillance; W18.12XA Fall from or off toilet with subsequent striking against object, initial encounter; Y92.002 Bathroom of unspecified non-institutional (private) residence as the place of occurrence of the external cause
CPT/HCPCS: 36415; 43246; 70450; 71045; 71046; 71250; 72125; 74230; 76705; 76770; 78582; 80048; 80053; 80074; 81001; 82533; 82607; 82746; 83036; 83540; 83550; 83605; 83735; 83880; 83935; 84132; 84145; 84300; 84443; 84484; 85025; 85027; 85379; 85610; 85730; 86140; 87040; 87070; 87205; 87635; 93005; 93306; 93880; 94640; 94760; 96360; 99285

== ENCOUNTER 2021-08-15 19:06 | Emergency (ER) | payer MEDICARE ==
[2021-08-15 19:22] VITALS: BP 130/74; PULSE 86; RESP 18; TEMP 98.7
--- NOTE | 2021-08-15 20:31 | XR ---
EXAMINATION TYPE: XR KUB DATE OF EXAM: 08/15/2021 COMPARISON: 12/09/2020 HISTORY: Check gastrostomy tube Single view FINDINGS: Single view of the abdomen was obtained with injection of contrast 30 mL of Isovue through the gastro stomy tube. There is contrast opacification of the stomach. I see no evidence for contrast extravasat ion. There is some contrast puddling in the greater curvature of the stomach and also the gastric fun dus and gastric antral region. IMPRESSION: Gastrostomy tube is in good position. Multiple right upper quadrant calcifications consistent with gallstones and not changed.
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
== END 2021-08-15 23:10 | disposition home or self-care (01) ==
LOC: EC 19:06
DX: K94.23 Gastrostomy malfunction (principal); E11.36 Type 2 diabetes mellitus with diabetic cataract; F17.200 Nicotine dependence, unspecified, uncomplicated; I10 Essential (primary) hypertension; Z86.73 Personal history of transient ischemic attack (TIA), and cerebral infarction without residual deficits
CPT/HCPCS: 43762; 74018; 99283

== ENCOUNTER 2021-08-16 02:04 | Observation (INO) | payer MEDICARE ==
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
[2021-08-16] MEDS ORDERED: NALOXONE 0.4 MG/ML 1 ML VIAL IV PRN (03:09)
--- NOTE | 2021-08-16 03:15 | XR ---
EXAMINATION TYPE: XR KUB DATE OF EXAM: 08/16/2021 COMPARISON: NONE HISTORY: Check tube placement TECHNIQUE: Single view 20 mL of Isovue was injected. FINDINGS: Contrast was injected into the gastrostomy tube. There is contrast opacification of the sto mach .. Unfortunately there is suboptimal distention of the stomach . There appears to be good position of the gastrostomy tube. IMPRESSION: Gastrostomy tube in same position as exam yesterday. No definite sign of extravasation.
[2021-08-16 04:37] LABS: Albumin 3.6 g/dL (3.5-5.0); Calcium 9.1 mg/dL (8.4-10.2); Potassium 5.5 mmol/L (3.5-5.1); Total Bilirubin 0.4 mg/dL (0.2-1.3); Total Protein 7.3 g/dL (6.3-8.2)
[2021-08-16 04:53] LABS: Amorphous Sediment,Urine Occasional /hpf; Appearance,Urine Turbid (Clear); Bacteria,Urine Occasional /hpf; Bilirubin,Urine Negative (Negative); Blood,Urine Moderate (Negative); Calcium Oxalate Crystals,Urine Few /hpf; Color,Urine Yellow; Glucose,Urine (UA) Negative (Negative); Ketones,Urine Negative (Negative); Leukocyte Esterase,Urine Large (Negative); Mucus,Urine Occasional /hpf; Nitrite,Urine Negative (Negative); PH, Urine 7.5 (5.0-8.0); Protein,Urine 1+ (Negative); RBC,Urine 63 /hpf (0-5); Specific Gravity,Urine 1.031 (1.001-1.035); Triple Phosphate Crystal,Urine Rare /hpf; WBC,Urine 112 /hpf (0-5)
[2021-08-16 05:43] LABS: Basophils # (A) 0.1 k/uL (0-0.2); Basophils % (A) 0 %; Eosinophils # (A) 0.1 k/uL (0-0.7); Eosinophils % (A) 1 %; HGB 13.2 gm/dL (13.0-17.5); Lymphocytes # (A) 0.8 k/uL (1.0-4.8); Lymphocytes % (A) 7 %; MCH 34.3 pg (25.0-35.0); Macrocytosis Moderate; Mean Platelet Volume 7.5; Monocytes # (A) 0.7 k/uL (0-1.0); Monocytes % (A) 6 %; Neutrophils # (A) 9.7 k/uL (1.3-7.7); Neutrophils % (A) 83 %; Platelet Count 372 k/uL (150-450); RBC 3.86 m/uL (4.30-5.90); RDW 15.3 % (11.5-15.5); WBC 11.7 k/uL (3.8-10.6)
[2021-08-16 05:56] LABS: MCV 103.7 fL (80.0-100.0)
[2021-08-16] MEDS: SODIUM CHLORIDE 0.9% 1,000 ML IV SCH ×3 (08:24→20:50)
[2021-08-16] MEDS ORDERED: bisacodyL 10 MG SUPP RECTAL PRN (08:49)
[2021-08-16] MEDS ORDERED: MAGNESIUM HYDROXIDE 2,400 MG/10 ML CUP PEG/G-TUBE PRN (08:49)
[2021-08-16] MEDS ORDERED: MUPIROCIN 2% OINT 22 GM TUBE TOPICAL PRN (08:49)
[2021-08-16] MEDS ORDERED: DARBEPOETIN ALFA 40 MCG/0.4 ML SYRINGE SQ PRN (09:00)
[2021-08-16] MEDS: SYMBICORT 160-4.5 MCG INHALER INHALATION SCH ×2 (09:29→17:03)
[2021-08-16] MEDS: IPRATROPIUM-ALBUTEROL 3 ML NEB INHALATION SCH ×3 (10:44→20:12)
[2021-08-16 10:54] LABS: INR 1.5 (<1.2); Prothrombin Time 15.3 sec (9.0-12.0)
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
[2021-08-16] MEDS ORDERED: FUROSEMIDE 10 MG/ML 2 ML VIAL IV ONE (12:26)
[2021-08-16] MEDS: AMIODARONE 200 MG TAB PEG/G-TUBE SCH ×2 (15:38→18:13)
[2021-08-16] MEDS: CYANOCOBALAMIN 500 MCG TAB PEG/G-TUBE SCH (15:38)
[2021-08-16] MEDS: SODIUM BICARBONATE TAB 650 MG TAB PEG/G-TUBE SCH ×2 (15:39→18:14)
[2021-08-16] MEDS: VENLAFAXINE HCL 75 MG TAB PEG/G-TUBE SCH ×2 (15:39→18:14)
[2021-08-16] MEDS: FOLIC ACID 1 MG TAB PEG/G-TUBE SCH (15:39)
[2021-08-16] MEDS: FAMOTIDINE 20 MG TAB PEG/G-TUBE SCH ×2 (15:39→18:13)
[2021-08-16 17:15] LABS: Glucose,Whole Blood 100 mg/dL (75-99)
[2021-08-16] MEDS: ENOXAPARIN 40 MG/0.4 ML SYRINGE SQ SCH (18:41)
[2021-08-16] MEDS: METOPROLOL TARTRATE 25 MG TAB PEG/G-TUBE SCH (20:50)
[2021-08-17] MEDS: SODIUM CHLORIDE 0.9% 1,000 ML IV SCH ×3 (05:06→19:24)
[2021-08-17 06:39] LABS: Basophils % (A) 0 %; Eosinophils # (A) 0.1 k/uL (0-0.7); Eosinophils % (A) 1 %; HCT 37.8 % (39.0-53.0); HGB 12.1 gm/dL (13.0-17.5); Lymphocytes # (A) 0.8 k/uL (1.0-4.8); Lymphocytes % (A) 7 %; MCH 33.7 pg (25.0-35.0); MCHC 31.9 g/dL (31.0-37.0); MCV 105.5 fL (80.0-100.0); Macrocytosis Moderate; Mean Platelet Volume 7.1; Monocytes # (A) 0.6 k/uL (0-1.0); Monocytes % (A) 5 %; Neutrophils # (A) 9.4 k/uL (1.3-7.7); Neutrophils % (A) 84 %; Platelet Count 321 k/uL (150-450); RBC 3.58 m/uL (4.30-5.90); RDW 14.4 % (11.5-15.5); WBC 11.2 k/uL (3.8-10.6)
[2021-08-17 07:08] LABS: African American GFR (CKD) 51 (>60 ml/min/1.73 sqM); Anion Gap 10 mmol/L; Blood Urea Nitrogen 32 mg/dL (9-20); Carbon Dioxide 22 mmol/L (22-30); Chloride 101 mmol/L (98-107); Glucose 59 mg/dL (74-99); Potassium 4.8 mmol/L (3.5-5.1); Sodium 133 mmol/L (137-145)
[2021-08-17 07:09] LABS: Calcium 8.8 mg/dL (8.4-10.2); Non-African American GFR(CKD) 44 (>60 ml/min/1.73 sqM)
[2021-08-17 07:17] LABS: INR 1.6 (<1.2); Prothrombin Time 16.2 sec (9.0-12.0)
[2021-08-17] MEDS: IPRATROPIUM-ALBUTEROL 3 ML NEB INHALATION SCH ×4 (07:20→19:39)
[2021-08-17] MEDS: SYMBICORT 160-4.5 MCG INHALER INHALATION SCH ×2 (07:20→19:39)
[2021-08-17 07:28] LABS: Glucose,Whole Blood 65 mg/dL (75-99)
[2021-08-17] MEDS ORDERED: DEXTROSE 50% SYRINGE 50 ML IVP STA (07:30)
[2021-08-17] MEDS ORDERED: DEXTROSE 50% SYRINGE 50 ML IVP ONE (07:32)
[2021-08-17 08:00] LABS: Glucose,Whole Blood 195 mg/dL (75-99)
[2021-08-17] MEDS: SODIUM BICARBONATE TAB 650 MG TAB PEG/G-TUBE SCH ×2 (09:16→18:15)
[2021-08-17] MEDS: VENLAFAXINE HCL 75 MG TAB PEG/G-TUBE SCH ×2 (09:16→18:14)
[2021-08-17] MEDS: FOLIC ACID 1 MG TAB PEG/G-TUBE SCH (09:17)
[2021-08-17] MEDS: FAMOTIDINE 20 MG TAB PEG/G-TUBE SCH ×2 (09:17→18:15)
[2021-08-17] MEDS: AMIODARONE 200 MG TAB PEG/G-TUBE SCH ×2 (09:18→18:15)
[2021-08-17] MEDS: CYANOCOBALAMIN 500 MCG TAB PEG/G-TUBE SCH (09:18)
[2021-08-17] MEDS: METOPROLOL TARTRATE 25 MG TAB PEG/G-TUBE SCH ×2 (09:18→20:46)
[2021-08-17 12:09] LABS: Glucose,Whole Blood 96 mg/dL (75-99)
[2021-08-17] MEDS ORDERED: IV FLUID CONTINUATION 1,000 ML IV ONE (14:52)
[2021-08-17] MEDS ORDERED: SODIUM CHLORIDE 0.9% 500 ML 500 ML IV ONE (15:20)
--- NOTE | 2021-08-17 15:20 | P.PCN ---
Date of Procedure: 08/17/21 Procedure(s) Performed: PREOPERATIVE DIAGNOSIS: Malnutrition, PEG tube malfunction POSTOPERATIVE DIAGNOSIS: Same PROCEDURE: EGD with PEG tube placement SURGEON: Rell EBL: Minimal ANESTHESIA: Sedation COMPLICATIONS: None OPERATIVE PROCEDURE: The patient was placed in the supine position on the endoscopy table. The patient was sedated per anesthesia that time. The Olympus gastroscope was inserted into the oropharynx and passed under direct visualization to the region of the duodenum. No obstruction was seen. The pylorus was widely patent. The stomach was carefully inspected. The site where the PEG tube was previously present was noted. Initially I inspected the tract between the skin and the stomach with a Ponsky replacement tube probe. With this probe I was unable to enter the stomach. I decided to convert to a standard kit at that point. We utilized this site for replacing the PEG tube. The area was prepped sterilely. The Seldinger needle was advanced into the lumen of the stomach the wire was advanced. The wire was grasped with an endoscopic snare. The wire was pulled through the oropharynx. The catheter was then connected to the guidewire and the guidewire and catheter were pulled anteriorly until the hub of the PEG tube catheter was seated against the anterior wall the stomach. The circular bolster was applied and tightened down. The endoscope was then readvanced into the stomach. There was no evidence of any bleeding and there was appropriate tightness on the bolster. The catheter was cut appropriately. The dual port feeding adapter was applied. DISPOSITION: Stable to recovery room
[2021-08-17 17:21] LABS: Glucose,Whole Blood 75 mg/dL (75-99)
--- NOTE | 2021-08-17 18:08 | P.PN ---
Subjective Progress Note Date: 08/17/21 This is a 61-year-old male patient of Dr. Jama who presented to the ER with concerns of malfunction of his PEG tube. Patient has a past medical history of prolonged hospitalization following aspiration. Patient has past medical history of CVA with dysphasia, diabetes mellitus, hyperlipidemia and hype rtension. Per ER report was attempted to replace PEG tube per ER physician the PEG tube was still having issues after placement it was recommended patient be admitted with surgical consult. At this time patient is resting comfortably in bed. Patient denies any recent illness. Patient denies nausea vomiting or diarrhea. Patient denies any urinary burning or frequency. UA is positive for urinary tract infection. Patient will be started on Rocephin and urine culture will be ordered. Patient's potassium level also elevated at 5.5 this does appear to be a chronic issue for patient. Will repeat lab in a.m. Patient's Coumadin will be held for possible surgical intervention current INR 1.5 patient will be starting Lovenox subcu On 08/17/2021 Patient was seen and examined on the medical floor, he is alert and oriented x 3 in no distress, he denies any complaints there is no fever or chills no headache or dizziness no chest pain no shortness of breath no palpitation no cough no nausea or vomiting no abdominal pain no diarrhea no blood in the stools no burning with urination no frequency or urgency and no hematuria, there is no weakness or numbness in any of the extremities no change in vision speech, patient underwent replacement of his PEG tube today. Objective - Vital Signs Vital signs: Vital Signs Temp 97.6 F 08/17/21 15:55 Pulse 90 08/17/21 17:10 Resp 19 08/17/21 13:00 BP 165/80 08/17/21 17:10 Pulse Ox 97 08/17/21 13:00 Intake & Output 08/16/21 08/17/21 08/17/21 18:59 06:59 18:59 Intake Total 1000 1660 350 Output Total 1500 1000 300 Balance -500 660 50 Intake: IV 350 Intake, IV Titration 1000 1660 Amount Sodium Chloride 0.9% 1, 1000 1560 000 ml @ 130 mls/hr IV . Q7H42M [facility] Rx#:[id number] cefTRIAXone 1 gm In 100 Sodium Chloride 0.9% 50 ml @ 100 mls/hr IVPB Q12HR [facility] Rx#:[id number] Output: Urine 1500 1000 300 Coude 600 1000 Other: Voiding Method Indwelling Catheter Indwelling Catheter Indwelling Catheter - Exam Head normocephalic Neck supple Lungs clear to auscultation bilaterally no wheezing or crackles Heart regular rate and rhythm S1-S2, no rub or gallop Abdomen is soft nontender nondistended positive bowel sounds no hepatosplenomegaly. Tenderness over left previous PEG tube site current PEG tube site is clean dry and intact Extremities no edema Neuro alert and orientated to 3 - Labs CBC & Chem 7: 08/17/21 05:52 08/17/21 05:52 Labs: Abnormal Lab Results - Last 24 Hours (Table) 08/17/21 08/17/21 08/17/21 Range/Units 05:52 05:52 05:52 WBC 11.2 H (3.8-10.6) k/uL RBC 3.58 L (4.30-5.90) m/uL Hgb 12.1 L (13.0-17.5) gm/dL Hct 37.8 L (39.0-53.0) % MCV 105.5 H (80.0-100.0) fL Neutrophils # 9.4 H (1.3-7.7) k/uL Lymphocytes # 0.8 L (1.0-4.8) k/uL PT 16.2 H (9.0-12.0) sec INR 1.6 H (<1.2) Sodium 133 L (137-145) mmol/L BUN 32 H (9-20) mg/dL Creatinine 1.66 H (0.66-1.25) mg/dL Glucose 59 L (74-99) mg/dL POC Glucose (mg/dL) (75-99) mg/dL 08/17/21 08/17/21 Range/Units 07:27 07:59 WBC (3.8-10.6) k/uL RBC (4.30-5.90) m/uL Hgb (13.0-17.5) gm/dL Hct (39.0-53.0) % MCV (80.0-100.0) fL Neutrophils # (1.3-7.7) k/uL Lymphocytes # (1.0-4.8) k/uL PT (9.0-12.0) sec INR (<1.2) Sodium (137-145) mmol/L BUN (9-20) mg/dL Creatinine (0.66-1.25) mg/dL Glucose (74-99) mg/dL POC Glucose (mg/dL) 65 L 195 H (75-99) mg/dL Microbiology - Last 24 Hours (Table) 08/16/21 03:50 Urine Culture - Final Urine,Voided Assessment and Plan Assessment: 1. Malfunctioning PEG tube. Per surgical services patient is scheduled for EGD and PEG tube placement tomorrow 08/17/[address] sanford 2. History of dysphagia secondary to CVA with PEG tube placement 3. Chronic hyperkalemia. Patient maintained on Kayexalate 4. Chronic kidney disease 5. History of cerebral stroke 6. History of essential hypertension 7. History of paroxysmal atrial fibrillation. Patient is maintained on Coumadin. Coumadin currently on hold for possible surgical intervention Lovenox subcu added DVT prophylaxis Lovenox. GI prophylaxis Pepcid Surgical service is consulted Repeat labs ordered for a.m.
[2021-08-17] MEDS ORDERED: LIDOCAINE 1% INJ 10MG/ML (20 ML MDV) ONE (19:52)
[2021-08-17] MEDS ORDERED: PROPOFOL 10 MG/ML 20 ML VIAL IV ONE (19:52)
[2021-08-17 20:45] LABS: Glucose,Whole Blood 83 mg/dL (75-99)
[2021-08-18] MEDS: SODIUM CHLORIDE 0.9% 1,000 ML IV SCH ×3 (03:53→19:13)
[2021-08-18] MEDS: IPRATROPIUM-ALBUTEROL 3 ML NEB INHALATION SCH ×4 (07:07→20:08)
[2021-08-18] MEDS: SYMBICORT 160-4.5 MCG INHALER INHALATION SCH ×2 (07:07→20:09)
[2021-08-18 07:26] LABS: Basophils % (A) 1 %; Eosinophils # (A) 0.2 k/uL (0-0.7); Eosinophils % (A) 2 %; HGB 10.9 gm/dL (13.0-17.5); Lymphocytes # (A) 0.6 k/uL (1.0-4.8); Lymphocytes % (A) 8 %; MCH 34.1 pg (25.0-35.0); MCHC 31.9 g/dL (31.0-37.0); MCV 106.8 fL (80.0-100.0); Macrocytosis Moderate; Mean Platelet Volume 7.1; Monocytes # (A) 0.5 k/uL (0-1.0); Monocytes % (A) 7 %; Neutrophils # (A) 6.3 k/uL (1.3-7.7); Neutrophils % (A) 79 %; Platelet Count 291 k/uL (150-450); RBC 3.18 m/uL (4.30-5.90); RDW 14.5 % (11.5-15.5); WBC 7.9 k/uL (3.8-10.6)
[2021-08-18 07:36] LABS: Glucose,Whole Blood 82 mg/dL (75-99)
[2021-08-18] MEDS: METOPROLOL TARTRATE 25 MG TAB PEG/G-TUBE SCH ×2 (09:51→20:00)
[2021-08-18] MEDS: FAMOTIDINE 20 MG TAB PEG/G-TUBE SCH ×2 (09:52→17:09)
[2021-08-18] MEDS: SODIUM BICARBONATE TAB 650 MG TAB PEG/G-TUBE SCH ×2 (09:52→17:09)
[2021-08-18] MEDS: AMIODARONE 200 MG TAB PEG/G-TUBE SCH ×2 (09:53→17:09)
[2021-08-18] MEDS: CYANOCOBALAMIN 500 MCG TAB PEG/G-TUBE SCH (09:53)
[2021-08-18] MEDS: VENLAFAXINE HCL 75 MG TAB PEG/G-TUBE SCH ×2 (09:55→17:09)
[2021-08-18] MEDS: FOLIC ACID 1 MG TAB PEG/G-TUBE SCH (09:56)
[2021-08-18 10:20] VITALS: BMI 25.4
[2021-08-18] MEDS: ENOXAPARIN 40 MG/0.4 ML SYRINGE SQ SCH (10:47)
[2021-08-18 11:16] LABS: ALT 23 U/L (10-49); AST 21 U/L (14-35); African American GFR (CKD) 59.8 (60.0-200.0); Albumin 2.8 g/dL (3.8-4.9); Albumin/Globulin Ratio 0.96 (1.60-3.17); Alkaline Phosphatase 95 U/L (41-126); BUN/Creat Ratio 16.14 Ratio (12.00-20.00); Blood Urea Nitrogen 23.4 mg/dL (9.0-27.0); Calcium 8.3 mg/dL (8.7-10.3); Carbon Dioxide 21.1 mmol/L (21.6-31.8); Chloride 103 mmol/L (96-109); Glucose 71 mg/dL (70-110); Non-African American GFR(CKD) 51.6 (60.0-200.0); Potassium 4.5 mmol/L (3.5-5.5); Sodium 137 mmol/L (135-145); Total Bilirubin <0.20 mg/dL (0.30-1.20); Total Protein 5.8 g/dL (6.2-8.2)
[2021-08-18 11:38] LABS: INR 1.9 (<1.2); Prothrombin Time 18.3 sec (9.0-12.0)
[2021-08-18] MEDS ORDERED: WARFARIN 5 MG TAB PO SCH (12:00)
[2021-08-18 12:27] LABS: Glucose,Whole Blood 101 mg/dL (75-99)
--- NOTE | 2021-08-18 13:07 | P.PN ---
<ReinaFariba - Last Filed: 08/18/21 13:00> Subjective Progress Note Date: 08/18/21 CHIEF COMPLAINT: Malfunctioning PEG tube HISTORY OF PRESENT ILLNESS: This is 61-year-old male patient who recently had a PEG tube replaced in June of this year due to recurrent aspiration. Patient had a prior PEG tube that eroded into the abdominal wall requiring a laparotomy and partial gastrectomy. He has a history of CVA and dysphagia which was the initial reason for PEG tube placement. The patient had initially come to the emergency room due to malfunctioning PEG tube that could not be replaced at outside facility and attempted in the emergency room unfortunately was dislodged. Yesterday patient underwent a EGD with PEG tube placement. Today he is seen and examined at the bedside. He denies any abdominal pain, nausea, or vomiting. He's been afebrile. PEG tube is in place and currently to feeding was initiated this morning at 10 M falls per hour per dietitian. Patient is tolerating well. PHYSICAL EXAM: VITAL SIGNS: Reviewed. GENERAL: Well-developed in no acute distress. HEENT: No sclera icterus. Extraocular movements grossly intact. Moist buccal mucosa. Head is atraumatic, normocephalic. ABDOMEN: Soft. Nondistended. Nontender. PEG tube intact. NEUROLOGIC: Alert and oriented. Cranial nerves II through XII grossly intact. ASSESSMENT: 1. PEG tube malfunction status post EGD and PEG tube replacement 2. Malnutrition 3. History of CVA with dysphagia PLAN: -PEG tube feedings initiated per recommendations from dietitian -Keep nothing by mouth -Patient is cleared from general surgery for discharge. May follow-up as needed. The impression and plan of care has been dictated as directed. Dr.A Zacarias I performed a history and examination of this patient, discussed the same with the dictator. I agree with the dictator's note ,documented as a scribe. Any additional findings or plans will be noted. Objective - Vital Signs Vital signs: Vital Signs Temp 98.1 F 08/18/21 07:05 Pulse 90 08/18/21 07:20 Resp 16 08/18/21 07:05 BP 146/69 08/18/21 07:05 Pulse Ox 94 L 08/18/21 07:09 Intake & Output 08/17/21 08/18/21 08/18/21 18:59 06:59 18:59 Intake Total 350 530 Output Total 300 600 Balance 50 -70 Intake: IV 350 Intake, IV Titration 500 Amount Sodium Chloride 0.9% 1, 500 000 ml @ 130 mls/hr IV . Q7H42M [facility] Rx#:[id number] Tube Feeding 30 Output: Urine 300 600 Other: Voiding Method Indwelling Catheter Indwelling Catheter - Labs CBC & Chem 7: 08/18/21 06:17 08/18/21 06:17 Labs: Abnormal Lab Results - Last 24 Hours (Table) 08/18/21 Range/Units 06:17 RBC 3.18 L (4.30-5.90) m/uL Hgb 10.9 L (13.0-17.5) gm/dL Hct 34.0 L (39.0-53.0) % MCV 106.8 H (80.0-100.0) fL Lymphocytes # 0.6 L (1.0-4.8) k/uL Microbiology - Last 24 Hours (Table) 08/16/21 03:50 Urine Culture - Final Urine,Voided <Yousuf Zacarias - Last Filed: 08/18/21 16:59> Subjective As above. Patient doing better today. Continue advancing tube feeds as tolerated. Possible discharge per primary service. Objective - Vital Signs Vital signs: Vital Signs Temp 98.1 F 08/18/21 07:05 Pulse 84 08/18/21 15:30 Resp 16 08/18/21 07:05 BP 146/69 08/18/21 07:05 Pulse Ox 94 L 08/18/21 07:09 Intake & Output 08/17/21 08/18/21 08/18/21 18:59 06:59 18:59 Intake Total 350 530 Output Total 300 600 600 Balance 50 -70 -600 Weight 82.554 kg Intake: IV 350 Intake, IV Titration 500 Amount Sodium Chloride 0.9% 1, 500 000 ml @ 130 mls/hr IV . Q7H42M [facility] Rx#:[id number] Tube Feeding 30 Output: Urine 300 600 600 Other: Voiding Method Indwelling Catheter Indwelling Catheter Indwelling Catheter - Labs CBC & Chem 7: 08/18/21 06:17 08/18/21 06:17 Labs: Abnormal Lab Results - Last 24 Hours (Table) 08/18/21 08/18/21 08/18/21 Range/Units 06:17 06:17 11:11 RBC 3.18 L (4.30-5.90) m/uL Hgb 10.9 L (13.0-17.5) gm/dL Hct 34.0 L (39.0-53.0) % MCV 106.8 H (80.0-100.0) fL Lymphocytes # 0.6 L (1.0-4.8) k/uL PT 18.3 H (9.0-12.0) sec INR 1.9 H (<1.2) Carbon Dioxide 21.1 L (21.6-31.8) mmol/L Anion Gap 12.30 H (4.00-12.00) mmol/L Est GFR (CKD-EPI)AfAm 59.8 L (60.0-200.0) Est GFR (CKD-EPI)NonAf 51.6 L (60.0-200.0) POC Glucose (mg/dL) (75-99) mg/dL Calcium 8.3 L (8.7-10.3) mg/dL Total Bilirubin <0.20 L (0.30-1.20) mg/dL Total Protein 5.8 L (6.2-8.2) g/dL Albumin 2.8 L (3.8-4.9) g/dL Albumin/Globulin Ratio 0.96 L (1.60-3.17) g/dL 08/18/21 Range/Units 12:26 RBC (4.30-5.90) m/uL Hgb (13.0-17.5) gm/dL Hct (39.0-53.0) % MCV (80.0-100.0) fL Lymphocytes # (1.0-4.8) k/uL PT (9.0-12.0) sec INR (<1.2) Carbon Dioxide (21.6-31.8) mmol/L Anion Gap (4.00-12.00) mmol/L Est GFR (CKD-EPI)AfAm (60.0-200.0) Est GFR (CKD-EPI)NonAf (60.0-200.0) POC Glucose (mg/dL) 101 H (75-99) mg/dL Calcium (8.7-10.3) mg/dL Total Bilirubin (0.30-1.20) mg/dL Total Protein (6.2-8.2) g/dL Albumin (3.8-4.9) g/dL Albumin/Globulin Ratio (1.60-3.17) g/dL Microbiology - Last 24 Hours (Table) 08/16/21 03:50 Urine Culture - Final Urine,Voided
[2021-08-18 17:47] LABS: Glucose,Whole Blood 95 mg/dL (75-99)
[2021-08-19] MEDS: SODIUM CHLORIDE 0.9% 1,000 ML IV SCH ×3 (01:14→15:20)
[2021-08-19 07:17] LABS: Glucose,Whole Blood 113 mg/dL (75-99)
[2021-08-19] MEDS: IPRATROPIUM-ALBUTEROL 3 ML NEB INHALATION SCH ×4 (07:30→19:31)
[2021-08-19] MEDS: SYMBICORT 160-4.5 MCG INHALER INHALATION SCH ×2 (07:30→19:31)
[2021-08-19 08:25] LABS: INR 1.9 (<1.2)
[2021-08-19] MEDS ORDERED: SODIUM POLYSTYRENE SULFONATE 15 GM/60 ML BOTTLE PEG/G-TUBE SCH (09:00)
[2021-08-19] MEDS: METOPROLOL TARTRATE 25 MG TAB PEG/G-TUBE SCH ×2 (10:16→20:03)
[2021-08-19] MEDS: FAMOTIDINE 20 MG TAB PEG/G-TUBE SCH ×2 (10:16→17:58)
[2021-08-19] MEDS: FOLIC ACID 1 MG TAB PEG/G-TUBE SCH (10:17)
[2021-08-19] MEDS: ENOXAPARIN 40 MG/0.4 ML SYRINGE SQ SCH (10:17)
[2021-08-19] MEDS: CYANOCOBALAMIN 500 MCG TAB PEG/G-TUBE SCH (10:17)
[2021-08-19] MEDS: VENLAFAXINE HCL 75 MG TAB PEG/G-TUBE SCH ×2 (10:17→17:59)
[2021-08-19] MEDS: AMIODARONE 200 MG TAB PEG/G-TUBE SCH ×2 (10:17→17:59)
[2021-08-19] MEDS: SODIUM BICARBONATE TAB 650 MG TAB PEG/G-TUBE SCH ×2 (10:17→17:59)
--- NOTE | 2021-08-19 11:02 | P.PN ---
Subjective Progress Note Date: 08/19/21 Principal diagnosis: Malfunctioning PEG tube Patient has no new complaints. Per nursing staff he had an elevated residual once today. Previously he had been tolerating the tube feeds well. Denies nausea or vomiting. Objective - Vital Signs Vital signs: Vital Signs Temp 98 F 08/19/21 10:44 Pulse 89 08/19/21 10:18 Resp 20 08/19/21 04:06 BP 158/78 08/19/21 10:18 Pulse Ox 93 L 08/19/21 10:21 Intake & Output 08/18/21 08/19/21 08/19/21 18:59 06:59 18:59 Intake Total 120 90 Output Total 600 1250 Balance -480 -1160 Weight 82.554 kg 85 kg Intake: Intake, IV Titration 50 Amount cefTRIAXone 1 gm In 50 Sodium Chloride 0.9% 50 ml @ 100 mls/hr IVPB Q12HR [facility] Rx#:[id number] Tube Feeding 120 40 Output: Urine 600 1250 Coude 250 Other: Voiding Method Indwelling Catheter Indwelling Catheter - Exam Abdomen: Soft, nondistended, nontender, PEG tube in place - Labs CBC & Chem 7: 08/18/21 06:17 08/18/21 06:17 Labs: Abnormal Lab Results - Last 24 Hours (Table) 08/18/21 08/18/21 08/18/21 Range/Units 06:17 11:11 12:26 PT 18.3 H (9.0-12.0) sec INR 1.9 H (<1.2) Carbon Dioxide 21.1 L (21.6-31.8) mmol/L Anion Gap 12.30 H (4.00-12.00) mmol/L Est GFR (CKD-EPI)AfAm 59.8 L (60.0-200.0) Est GFR (CKD-EPI)NonAf 51.6 L (60.0-200.0) POC Glucose (mg/dL) 101 H (75-99) mg/dL Calcium 8.3 L (8.7-10.3) mg/dL Total Bilirubin <0.20 L (0.30-1.20) mg/dL Total Protein 5.8 L (6.2-8.2) g/dL Albumin 2.8 L (3.8-4.9) g/dL Albumin/Globulin Ratio 0.96 L (1.60-3.17) g/dL 08/19/21 08/19/21 Range/Units 07:05 07:15 PT 19.0 H (9.0-12.0) sec INR 1.9 H (<1.2) Carbon Dioxide (21.6-31.8) mmol/L Anion Gap (4.00-12.00) mmol/L Est GFR (CKD-EPI)AfAm (60.0-200.0) Est GFR (CKD-EPI)NonAf (60.0-200.0) POC Glucose (mg/dL) 113 H (75-99) mg/dL Calcium (8.7-10.3) mg/dL Total Bilirubin (0.30-1.20) mg/dL Total Protein (6.2-8.2) g/dL Albumin (3.8-4.9) g/dL Albumin/Globulin Ratio (1.60-3.17) g/dL Assessment and Plan (1) PEG tube malfunction Narrative/Plan: Decreased tube feed rate for a few hours. Recheck residuals. If tube feed residuals are lower may resume at previous rate. Possible transfer of tolerating tube feeds. Current Visit: Yes Status: Acute Code(s): K94.23 - GASTROSTOMY MALFUNCTION SNOMED Code(s): 642826366
--- NOTE | 2021-08-19 13:31 | P.DS ---
Providers Date of admission: 08/16/21 03:29 Expected date of discharge: 08/18/21 Attending physician: Artur Schilling Consults: 08/16/21 10:01 Consult Physician Routine Consulting Provider: Yousuf Zacarias Reason/Comments: peg tube malfunction, unable to replace Do you want consulting provider notified?: Already Contacted Primary care physician: Giovanna Jama Hospital Course: Discharge diagnosis 1. Malfunctioning PEG tube. Status post EGD for placement of PEG tube. 2. History of dysphagia secondary to CVA with PEG tube placement 3. Chronic hyperkalemia. Patient maintained on Kayexalate 4. Chronic kidney disease 5. History of cerebral stroke 6. History of essential hypertension 7. History of paroxysmal atrial fibrillation. Patient is maintained on Coumadin. Coumadin currently on hold for possible surgical intervention Lovenox subcu added Hospital course This is a 61-year-old male patient of Dr. Jama who presented to the ER with concerns of malfunction of his PEG tube. Patient has a past medical history of prolonged hospitalization following aspiration. Patient has past medical histo ry of CVA with dysphasia, diabetes mellitus, hyperlipidemia and hypertension. Per ER report was attempted to replace PEG tube per ER physician the PEG tube was still having issues after placement it was recommended patient be admitted with surgical consult. At this time patient is resting comfortably in bed. Patient denies any recent illness. Patient denies nausea vomiting or diarrhea. Patient denies any urinary burning or frequency. UA is positive for urinary tract infection. Patient will be started on Rocephin and urine culture will be ordered. Patient's potassium level also elevated at 5.5 this does appear to be a chronic issue for patient. Will repeat lab in a.m. Patient's Coumadin will be held for possible surgical intervention current INR 1.5 patient will be starting Lovenox subcu On 08/17/2021 Patient was seen and examined on the medical floor, he is alert and oriented x 3 in no distress, he denies any complaints there is no fever or chills no headache or dizziness no chest pain no shortness of breath no palpitation no cough no nausea or vomiting no abdominal pain no diarrhea no blood in the stools no burning with urination no frequency or urgency and no hematuria, there is no weakness or numbness in any of the extremities no change in vision speech, patient underwent replacement of his PEG tube today. On 08/18/2021 patient alert and oriented 3. Awaiting final surgical clearance for discharge back to . Patient has been tolerating tube feedings. Patient will be DC'd on Ceftin and will be given Coumadin dose prior to discharge him to resume home Coumadin dose upon discharge. At this time patient denies chest pain or shortness breath. Patient denies nausea vomiting or diarrhea. Patient denies any urinary burning or frequency Patient Condition at Discharge: Stable Plan - Discharge Summary New Discharge Prescriptions: New Cefuroxime Axetil [Ceftin] 500 mg PO BID 5 Days #10 tab Continue Venlafaxine HCl [Effexor] 150 mg PEG/G-TUBE BID@0900,1700 Metoprolol Tartrate [Lopressor] 25 mg PEG/G-TUBE BID@0800,1999 Ipratropium-Albuterol Nebulize [Duoneb 0.5 mg-3 mg/3 ml Soln] 3 ml INHALATION RT-QID ml Magnesium Hydroxide [Milk of Magnesia] 2,400 mg PEG/G-TUBE Q48H PRN PRN Reason: Constipation bisacodyL [Dulcolax] 10 mg RECTAL Q72H PRN PRN Reason: Constipation Budesonide-Formot 160-4.5 Mcg [Symbicort 160-4.5 Mcg Inhaler] 2 puff INHALATION RT-BID@0900,1700 Amiodarone [Cordarone] 400 mg PEG/G-TUBE BID@0900,1700 Folic Acid 1 mg PEG/G-TUBE DAILY Mupirocin 2% Oint [Bactroban 2% Oint] 1 applic TOPICAL Q12H PRN PRN Reason: head of penis irritation Sodium Bicarbonate Tab 650 mg PEG/G-TUBE BID@0900,1700 Famotidine [Pepcid] 40 mg PEG/G-TUBE BID@0900,1700 Sodium Polystyrene Sulfonate [Kayexalate] 15 gm PEG/G-TUBE SA Cyanocobalamin [Vitamin B-12] 1,000 mcg PEG/G-TUBE DAILY Warfarin [Coumadin] 3 mg PEG/G-TUBE DAILY@2000 Darbepoetin Soren [Aranesp] 40 mcg SQ WE PRN PRN Reason: HGB <10 Discharge Medication List Metoprolol Tartrate [Lopressor] 25 mg PEG/G-TUBE BID@0800,199904/06/14 [History] Venlafaxine HCl [Effexor] 150 mg PEG/G-TUBE BID@09,169904/06/14 [History] Ipratropium-Albuterol Nebulize [Duoneb 0.5 mg-3 mg/3 ml Soln] 3 ml INHALATION RT-QID ml 03/25/21 [Rx] Amiodarone [Cordarone] 400 mg PEG/G-TUBE BID@899,169908/16/21 [History] Budesonide-Formot 160-4.5 Mcg [Symbicort 160-4.5 Mcg Inhaler] 2 puff INHALATION RT-BID@899,169908/16/21 [History] Cyanocobalamin [Vitamin B-12] 1,000 mcg PEG/G-TUBE DAILY 08/16/21 [History] Darbepoetin Soren [Aranesp] 40 mcg SQ WE PRN 08/16/21 [History] Famotidine [Pepcid] 40 mg PEG/G-TUBE BID@899,169908/16/21 [History] Folic Acid 1 mg PEG/G-TUBE DAILY 08/16/21 [History] Magnesium Hydroxide [Milk of Magnesia] 2,400 mg PEG/G-TUBE Q48H PRN 08/16/21 [History] Mupirocin 2% Oint [Bactroban 2% Oint] 1 applic TOPICAL Q12H PRN 08/16/21 [History] Sodium Bicarbonate Tab 650 mg PEG/G-TUBE BID@899,169908/16/21 [History] Sodium Polystyrene Sulfonate [Kayexalate] 15 gm PEG/G-TUBE SA 08/16/21 [History] Warfarin [Coumadin] 3 mg PEG/G-TUBE DAILY@199908/16/21 [History] bisacodyL [Dulcolax] 10 mg RECTAL Q72H PRN 08/16/21 [History] Cefuroxime Axetil [Ceftin] 500 mg PO BID 5 Days #10 tab 08/18/21 [Rx] Follow up Appointment(s)/Referral(s): Joan oRss, [NON-STAFF] - 1 Week Giovanna Jama MD [Primary Care Provider] - 1-2 days Discharge Disposition: HOME WITH HOME HEALTH SERVICES
--- NOTE | 2021-08-19 13:34 | P.PN ---
Subjective Progress Note Date: 08/19/21 This is a 61-year-old male patient of Dr. Jama who presented to the ER with concerns of malfunction of his PEG tube. Patient has a past medical history of prolonged hospitalization following aspiration. Patient has past medical history of CVA with dysphasia, diabetes mellitus, hyperlipidemia and hype rtension. Per ER report was attempted to replace PEG tube per ER physician the PEG tube was still having issues after placement it was recommended patient be admitted with surgical consult. At this time patient is resting comfortably in bed. Patient denies any recent illness. Patient denies nausea vomiting or diarrhea. Patient denies any urinary burning or frequency. UA is positive for urinary tract infection. Patient will be started on Rocephin and urine culture will be ordered. Patient's potassium level also elevated at 5.5 this does appear to be a chronic issue for patient. Will repeat lab in a.m. Patient's Coumadin will be held for possible surgical intervention current INR 1.5 patient will be starting Lovenox subcu On 08/17/2021 Patient was seen and examined on the medical floor, he is alert and oriented x 3 in no distress, he denies any complaints there is no fever or chills no headache or dizziness no chest pain no shortness of breath no palpitation no cough no nausea or vomiting no abdominal pain no diarrhea no blood in the stools no burning with urination no frequency or urgency and no hematuria, there is no weakness or numbness in any of the extremities no change in vision speech, patient underwent replacement of his PEG tube today. On 08/19/2021 patient was seen and examined on the medical floor, he is alert and oriented 3 in no apparent distress, he was having a residual of 1 65 mL in the stomach, surgery ordered to hold tube feeding for 2 hours and then restart at 25 mL/h, Dr. Ratliff states that if he does not have large residual again then he can be discharged today, discharge orders and discharge medication and summary are available in the chart patient can return to [facility] today if cleared by surgery Objective - Vital Signs Vital signs: Vital Signs Temp 98 F 08/19/21 10:44 Pulse 85 08/19/21 12:05 Resp 20 08/19/21 04:06 BP 158/78 08/19/21 10:18 Pulse Ox 93 L 08/19/21 10:21 Intake & Output 08/18/21 08/19/21 08/19/21 18:59 06:59 18:59 Intake Total 120 90 40 Output Total 600 1250 Balance -480 -1160 40 Weight 82.554 kg 85 kg Intake: Intake, IV Titration 50 Amount cefTRIAXone 1 gm In 50 Sodium Chloride 0.9% 50 ml @ 100 mls/hr IVPB Q12HR [facility] Rx#:[id number] Tube Feeding 120 40 40 Output: Urine 600 1250 Coude 250 Other: Voiding Method Indwelling Catheter Indwelling Catheter Indwelling Catheter - Exam Head normocephalic Neck supple Lungs clear to auscultation bilaterally no wheezing or crackles Heart regular rate and rhythm S1-S2, no rub or gallop Abdomen is soft nontender nondistended positive bowel sounds no he patosplenomegaly. Tenderness over left previous PEG tube site current PEG tube site is clean dry and intact Extremities no edema Neuro alert and orientated to 3 - Labs CBC & Chem 7: 08/18/21 06:17 08/18/21 06:17 Labs: Abnormal Lab Results - Last 24 Hours (Table) 08/19/21 08/19/21 Range/Units 07:05 07:15 PT 19.0 H (9.0-12.0) sec INR 1.9 H (<1.2) POC Glucose (mg/dL) 113 H (75-99) mg/dL Assessment and Plan Assessment: 1. Malfunctioning PEG tube. Per surgical services patient is scheduled for EGD and PEG tube placement tomorrow 08/17/[address] sanford 2. History of dysphagia secondary to CVA with PEG tube placement 3. Chronic hyperkalemia. Patient maintained on Kayexalate 4. Chronic kidney disease 5. History of cerebral stroke 6. History of essential hypertension 7. History of paroxysmal atrial fibrillation. Patient is maintained on Coumadin. Coumadin currently on hold for possible surgical intervention Lovenox subcu added DVT prophylaxis Lovenox. GI prophylaxis Pepcid Surgical service is consulted Repeat labs ordered for a.m.
[2021-08-19 17:33] LABS: Glucose,Whole Blood 73 mg/dL (75-99)
[2021-08-19] MEDS ORDERED: WARFARIN 5 MG TAB PO ONE (18:00)
[2021-08-20 00:23] LABS: Glucose,Whole Blood 101 mg/dL (75-99)
[2021-08-20] MEDS: SODIUM CHLORIDE 0.9% 1,000 ML IV SCH ×3 (01:07→17:40)
[2021-08-20 05:57] LABS: Glucose,Whole Blood 104 mg/dL (75-99)
[2021-08-20] MEDS: IPRATROPIUM-ALBUTEROL 3 ML NEB INHALATION SCH ×4 (07:02→20:12)
[2021-08-20] MEDS: SYMBICORT 160-4.5 MCG INHALER INHALATION SCH ×2 (07:03→20:12)
[2021-08-20 07:50] LABS: Appearance,Urine Clear (Clear); Bacteria,Urine Rare /hpf; Bilirubin,Urine Negative (Negative); Blood,Urine Trace (Negative); Color,Urine Light Yellow; Glucose,Urine (UA) Negative (Negative); Ketones,Urine Negative (Negative); Leukocyte Esterase,Urine Negative (Negative); Mucus,Urine Rare /hpf; Nitrite,Urine Negative (Negative); PH, Urine 7.5 (5.0-8.0); Protein,Urine Trace (Negative); RBC,Urine 7 /hpf (0-5); Specific Gravity,Urine 1.011 (1.001-1.035); Urobilinogen,Urine <2.0 mg/dL (<2.0); WBC,Urine 7 /hpf (0-5)
--- NOTE | 2021-08-20 10:00 | P.PN ---
Subjective Progress Note Date: 08/20/21 This is a 61-year-old male patient of Dr. Jama who presented to the ER with concerns of malfunction of his PEG tube. Patient has a past medical history of prolonged hospitalization following aspiration. Patient has past medical history of CVA with dysphasia, diabetes mellitus, hyperlipidemia and hype rtension. Per ER report was attempted to replace PEG tube per ER physician the PEG tube was still having issues after placement it was recommended patient be admitted with surgical consult. At this time patient is resting comfortably in bed. Patient denies any recent illness. Patient denies nausea vomiting or diarrhea. Patient denies any urinary burning or frequency. UA is positive for urinary tract infection. Patient will be started on Rocephin and urine culture will be ordered. Patient's potassium level also elevated at 5.5 this does appear to be a chronic issue for patient. Will repeat lab in a.m. Patient's Coumadin will be held for possible surgical intervention current INR 1.5 patient will be starting Lovenox subcu On 08/17/2021 Patient was seen and examined on the medical floor, he is alert and oriented x 3 in no distress, he denies any complaints there is no fever or chills no headache or dizziness no chest pain no shortness of breath no palpitation no cough no nausea or vomiting no abdominal pain no diarrhea no blood in the stools no burning with urination no frequency or urgency and no hematuria, there is no weakness or numbness in any of the extremities no change in vision speech, patient underwent replacement of his PEG tube today. On 08/19/2021 patient was seen and examined on the medical floor, he is alert and oriented 3 in no apparent distress, he was having a residual of 1 65 mL in the stomach, surgery ordered to hold tube feeding for 2 hours and then restart at 25 mL/h, Dr. Ratliff states that if he does not have large residual again then he can be discharged today, discharge orders and discharge medication and summary are available in the chart patient can return to [facility] today if cleared by surgery On 08/20/2021 patient is alert and oriented 3. Per nursing staff patient had low residuals during the night. 2 feedings have been advanced to 35 ml and patient appears to be tolerating. Awaiting prior authorization for return to [facility]. At this time patient denies chest pain or shortness of breath. Patient denies nausea vomiting or diarrhea. Patient denies any urinary burning or frequency Objective - Vital Signs Vital signs: Vital Signs Temp 97.9 F 08/20/21 04:24 Pulse 92 08/20/21 07:12 Resp 18 08/20/21 04:24 BP 146/73 08/20/21 04:24 Pulse Ox 94 L 08/20/21 04:24 Intake & Output 08/19/21 08/20/21 08/20/21 18:59 06:59 18:59 Intake Total 1690 1270 Output Total 1200 1100 830 Balance 490 170 -830 Weight 85.5 kg Intake: Intake, IV Titration 1610 1150 Amount Sodium Chloride 0.9% 1, 1560 1100 000 ml @ 130 mls/hr IV . Q7H42M [facility] Rx#:[id number] cefTRIAXone 1 gm In 50 50 Sodium Chloride 0.9% 50 ml @ 100 mls/hr IVPB Q12HR [facility] Rx#:[id number] Tube Feeding 80 120 Output: Urine 1200 1100 830 Coude 200 30 Other: Voiding Method Indwelling Catheter Indwelling Catheter # Bowel Movements 0 - Exam Head normocephalic Neck supple Lungs clear to auscultation bilaterally no wheezing or crackles Heart regular rate and rhythm S1-S2, no rub or gallop Abdomen is soft nontender nondistended positive bowel sounds no hepatosplenomegaly. Tenderness over left previous PEG tube site current PEG tube site is clean dry and intact Extremities no edema Neuro alert and orientated to 3 - Labs CBC & Chem 7: 08/18/21 06:17 08/18/21 06:17 Labs: Abnormal Lab Results - Last 24 Hours (Table) 08/19/21 08/20/21 08/20/21 Range/Units 17:29 00:22 05:14 PT 20.0 H (9.0-12.0) sec INR 2.0 H (<1.2) POC Glucose (mg/dL) 73 L 101 H (75-99) mg/dL Urine Protein (Negative) Urine Blood (Negative) Urine RBC (0-5) /hpf Urine WBC (0-5) /hpf Urine Bacteria (None) /hpf Urine Mucus (None) /hpf 08/20/21 08/20/21 Range/Units 05:54 06:57 PT (9.0-12.0) sec INR (<1.2) POC Glucose (mg/dL) 104 H (75-99) mg/dL Urine Protein Trace H (Negative) Urine Blood Trace H (Negative) Urine RBC 7 H (0-5) /hpf Urine WBC 7 H (0-5) /hpf Urine Bacteria Rare H (None) /hpf Urine Mucus Rare H (None) /hpf Assessment and Plan Assessment: 1. Malfunctioning PEG tube. Status post EGD and PEG tube placement 08/17/[address] sanford. tube feeding residuals improved. tube feedings advanced 2. History of dysphagia secondary to CVA with PEG tube placement 3. Chronic hyperkalemia. Patient maintained on Kayexalate 4. Chronic kidney disease 5. History of cerebral stroke 6. History of essential hypertension 7. History of paroxysmal atrial fibrillation. Patient is maintained on Coumadin. Coumadin currently on hold for possible surgical intervention Lovenox subcu added DVT prophylaxis Lovenox. GI prophylaxis Pepcid Surgical service is consulted Repeat labs ordered for a.m.
[2021-08-20] MEDS: SODIUM BICARBONATE TAB 650 MG TAB PEG/G-TUBE SCH ×2 (10:22→17:40)
[2021-08-20] MEDS: ENOXAPARIN 40 MG/0.4 ML SYRINGE SQ SCH (10:22)
[2021-08-20] MEDS: AMIODARONE 200 MG TAB PEG/G-TUBE SCH ×2 (10:22→17:39)
[2021-08-20] MEDS: VENLAFAXINE HCL 75 MG TAB PEG/G-TUBE SCH ×2 (10:22→17:40)
[2021-08-20] MEDS: CYANOCOBALAMIN 500 MCG TAB PEG/G-TUBE SCH (10:22)
[2021-08-20] MEDS: FAMOTIDINE 20 MG TAB PEG/G-TUBE SCH ×2 (10:22→17:39)
[2021-08-20] MEDS: METOPROLOL TARTRATE 25 MG TAB PEG/G-TUBE SCH ×2 (10:23→19:58)
[2021-08-20] MEDS: FOLIC ACID 1 MG TAB PEG/G-TUBE SCH (10:23)
--- NOTE | 2021-08-20 11:58 | P.PN ---
Subjective Progress Note Date: 08/20/21 Principal diagnosis: Malfunctioning PEG tube Patient has no new complaints. Tolerating tube feeds at 35 mL per hour. No abdominal pain. No nausea or vomiting. Objective - Vital Signs Vital signs: Vital Signs Temp 97.9 F 08/20/21 04:24 Pulse 88 08/20/21 11:19 Resp 18 08/20/21 04:24 BP 128/75 08/20/21 10:25 Pulse Ox 94 L 08/20/21 10:25 Intake & Output 08/19/21 08/20/21 08/20/21 18:59 06:59 18:59 Intake Total 1690 1270 40 Output Total 1200 1100 830 Balance 490 170 -790 Weight 85.5 kg Intake: Intake, IV Titration 1610 1150 Amount Sodium Chloride 0.9% 1, 1560 1100 000 ml @ 130 mls/hr IV . Q7H42M [facility] Rx#:[id number] cefTRIAXone 1 gm In 50 50 Sodium Chloride 0.9% 50 ml @ 100 mls/hr IVPB Q12HR [facility] Rx#:[id number] Tube Feeding 80 120 40 Output: Urine 1200 1100 830 Coude 200 30 Other: Voiding Method Indwelling Catheter Indwelling Catheter Indwelling Catheter # Bowel Movements 0 - Exam Abdomen: Soft, nontender, nondistended, PEG tube in place - Labs CBC & Chem 7: 08/18/21 06:17 08/18/21 06:17 Labs: Abnormal Lab Results - Last 24 Hours (Table) 08/19/21 08/20/21 08/20/21 Range/Units 17:29 00:22 05:14 PT 20.0 H (9.0-12.0) sec INR 2.0 H (<1.2) POC Glucose (mg/dL) 73 L 101 H (75-99) mg/dL Urine Protein (Negative) Urine Blood (Negative) Urine RBC (0-5) /hpf Urine WBC (0-5) /hpf Urine Bacteria (None) /hpf Urine Mucus (None) /hpf 08/20/21 08/20/21 Range/Units 05:54 06:57 PT (9.0-12.0) sec INR (<1.2) POC Glucose (mg/dL) 104 H (75-99) mg/dL Urine Protein Trace H (Negative) Urine Blood Trace H (Negative) Urine RBC 7 H (0-5) /hpf Urine WBC 7 H (0-5) /hpf Urine Bacteria Rare H (None) /hpf Urine Mucus Rare H (None) /hpf Assessment and Plan (1) PEG tube malfunction Narrative/Plan: Patient doing well at this time. Continue increasing tube feeds as tolerated. Current Visit: Yes Status: Acute Code(s): K94.23 - GASTROSTOMY MALFUNCTION SNOMED Code(s): 735290553
[2021-08-20 13:11] LABS: Glucose,Whole Blood 123 mg/dL (75-99)
[2021-08-20 17:08] LABS: Glucose,Whole Blood 114 mg/dL (75-99)
[2021-08-20] MEDS ORDERED: WARFARIN 2 MG TAB PEG/G-TUBE ONE (18:00)
[2021-08-20 20:16] VITALS: TEMP 98
[2021-08-21 00:59] LABS: Glucose,Whole Blood 98 mg/dL (75-99)
[2021-08-21 06:22] LABS: Glucose,Whole Blood 95 mg/dL (75-99)
[2021-08-21 07:03] LABS: Basophils % (A) 1 %; Eosinophils # (A) 0.2 k/uL (0-0.7); Eosinophils % (A) 3 %; HCT 37.5 % (39.0-53.0); HGB 12.4 gm/dL (13.0-17.5); Lymphocytes # (A) 0.9 k/uL (1.0-4.8); Lymphocytes % (A) 11 %; MCV 102.9 fL (80.0-100.0); Macrocytosis Slight; Mean Platelet Volume 6.8; Monocytes # (A) 0.5 k/uL (0-1.0); Monocytes % (A) 6 %; Neutrophils # (A) 6.1 k/uL (1.3-7.7); Neutrophils % (A) 76 %; Platelet Count 386 k/uL (150-450); RBC 3.64 m/uL (4.30-5.90); RDW 15.1 % (11.5-15.5); WBC 7.9 k/uL (3.8-10.6)
[2021-08-21 07:14] LABS: INR 2.7 (<1.2); Prothrombin Time 25.7 sec (9.0-12.0)
[2021-08-21 07:20] LABS: ALT 27 U/L (4-49); AST 28 U/L (17-59); African American GFR (CKD) 77 (>60 ml/min/1.73 sqM); Albumin/Globulin Ratio 0.8; Alkaline Phosphatase 113 U/L (38-126); Anion Gap 9 mmol/L; Blood Urea Nitrogen 17 mg/dL (9-20); Calcium 8.9 mg/dL (8.4-10.2); Carbon Dioxide 26 mmol/L (22-30); Chloride 102 mmol/L (98-107); Globulin 3.6 g/dL; Glucose 93 mg/dL (74-99); Non-African American GFR(CKD) 66 (>60 ml/min/1.73 sqM); Potassium 4.5 mmol/L (3.5-5.1); Sodium 137 mmol/L (137-145); Total Bilirubin 0.3 mg/dL (0.2-1.3); Total Protein 6.6 g/dL (6.3-8.2)
[2021-08-21 07:28] VITALS: BP 141/76
[2021-08-21] MEDS: ENOXAPARIN 40 MG/0.4 ML SYRINGE SQ SCH (07:29)
[2021-08-21] MEDS: SYMBICORT 160-4.5 MCG INHALER INHALATION SCH (07:29)
[2021-08-21] MEDS: AMIODARONE 200 MG TAB PEG/G-TUBE SCH (07:29)
[2021-08-21] MEDS: IPRATROPIUM-ALBUTEROL 3 ML NEB INHALATION SCH ×2 (07:29→10:53)
[2021-08-21] MEDS: CYANOCOBALAMIN 500 MCG TAB PEG/G-TUBE SCH (07:30)
[2021-08-21] MEDS: FAMOTIDINE 20 MG TAB PEG/G-TUBE SCH (07:30)
[2021-08-21] MEDS: METOPROLOL TARTRATE 25 MG TAB PEG/G-TUBE SCH (07:30)
[2021-08-21] MEDS: FOLIC ACID 1 MG TAB PEG/G-TUBE SCH (07:30)
[2021-08-21] MEDS: SODIUM BICARBONATE TAB 650 MG TAB PEG/G-TUBE SCH (07:30)
[2021-08-21] MEDS: VENLAFAXINE HCL 75 MG TAB PEG/G-TUBE SCH (07:31)
[2021-08-21 10:13] VITALS: RESP 18
--- NOTE | 2021-08-21 10:22 | P.DS ---
Providers Date of admission: 08/16/21 03:29 Expected date of discharge: 08/21/21 Attending physician: Artur Schilling Consults: 08/16/21 10:01 Consult Physician Routine Consulting Provider: Yousuf Zacarias Reason/Comments: peg tube malfunction, unable to replace Do you want consulting provider notified?: Already Contacted Primary care physician: Giovanna Jama Hospital Course: Discharge diagnosis 1. Malfunctioning PEG tube. Status post EGD for placement of PEG tube. 2. History of dysphagia secondary to CVA with PEG tube placement 3. Chronic hyperkalemia. Patient maintained on Kayexalate 4. Chronic kidney disease 5. History of cerebral stroke 6. History of essential hypertension 7. History of paroxysmal atrial fibrillation. Patient is maintained on Coumadin. Coumadin currently on hold for possible surgical intervention Lovenox subcu added This is a 61-year-old male patient of Dr. Jama who presented to the ER with concerns of malfunction of his PEG tube. Patient has a past medical history of prolonged hospitalization following aspiration. Patient has past medical history of CVA with dysphasia, diabetes mellitus, hyperlipidemia and hypertension. Per ER report was attempted to replace PEG tube per ER physician the PEG tube was still having issues after placement it was recommended patient be admitted with surgical consult. At this time patient is resting comfortably in bed. Patient denies any recent illness. Patient denies nausea vomiting or diarrhea. Patient denies any urinary burning or frequency. UA is positive for urinary tract infection. Patient will be started on Rocephin and urine culture will be ordered. Patient's potassium level also elevated at 5.5 this does appear to be a chronic issue for patient. Will repeat lab in a.m. Patient's Coumadin will be held for possible surgical intervention current INR 1.5 patient will be starting Lovenox subcu On 08/17/2021 Patient was seen and examined on the medical floor, he is alert and oriented x 3 in no distress, he denies any complaints there is no fever or chills no headache or dizziness no chest pain no shortness of breath no p alpitation no cough no nausea or vomiting no abdominal pain no diarrhea no blood in the stools no burning with urination no frequency or urgency and no hematuria, there is no weakness or numbness in any of the extremities no change in vision speech, patient underwent replacement of his PEG tube today. On 08/18/2021 patient alert and oriented 3. Awaiting final surgical clearance for discharge back to [facility]. Patient has been tolerating tube feedings. Patient will be DC'd on Ceftin and will be given Coumadin dose prior to discharge him to resume home Coumadin dose upon discharge. At this time patient denies chest pain or shortness breath. Patient denies nausea vomiting or diarrhea. Patient denies any urinary burning or frequency On 08/19/2021 patient was seen and examined on the medical floor, he is alert and oriented 3 in no apparent distress, he was having a residual of 1 65 mL in the stomach, surgery ordered to hold tube feeding for 2 hours and then restart at 25 mL/h, Dr. Ratliff states that if he does not have large residual again then he can be discharged today, discharge orders and discharge medication and summary are available in the chart patient can return to [facility] today if cleared by surgery On 08/20/2021 patient is alert and oriented 3. Per nursing staff patient had low residuals during the night. 2 feedings have been advanced to 35 ml and patient appears to be tolerating. Awaiting prior authorization for return to [facility]. At this time patient denies chest pain or shortness of breath. Patient denies nausea vomiting or diarrhea. Patient denies any urinary burning or frequency Patient Condition at Discharge: Stable Plan - Discharge Summary New Discharge Prescriptions: New Cefuroxime Axetil [Ceftin] 500 mg PO BID 5 Days #10 tab Continue Venlafaxine HCl [Effexor] 150 mg PEG/G-TUBE BID@0900,1700 Metoprolol Tartrate [Lopressor] 25 mg PEG/G-TUBE BID@08,1999 Ipratropium-Albuterol Nebulize [Duoneb 0.5 mg-3 mg/3 ml Soln] 3 ml INHALATION RT-QID ml Magnesium Hydroxide [Milk of Magnesia] 2,400 mg PEG/G-TUBE Q48H PRN PRN Reason: Constipation bisacodyL [Dulcolax] 10 mg RECTAL Q72H PRN PRN Reason: Constipation Budesonide-Formot 160-4.5 Mcg [Symbicort 160-4.5 Mcg Inhaler] 2 puff INHALATION RT-BID@0900,1700 Amiodarone [Cordarone] 400 mg PEG/G-TUBE BID@0900,1700 Folic Acid 1 mg PEG/G-TUBE DAILY Mupirocin 2% Oint [Bactroban 2% Oint] 1 applic TOPICAL Q12H PRN PRN Reason: head of penis irritation Sodium Bicarbonate Tab 650 mg PEG/G-TUBE BID@0900,170 Famotidine [Pepcid] 40 mg PEG/G-TUBE BID@09,170 Sodium Polystyrene Sulfonate [Kayexalate] 15 gm PEG/G-TUBE SA Cyanocobalamin [Vitamin B-12] 1,000 mcg PEG/G-TUBE DAILY Warfarin [Coumadin] 3 mg PEG/G-TUBE DAILY@1999 Darbepoetin Soren [Aranesp] 40 mcg SQ WE PRN PRN Reason: HGB <10 Discharge Medication List Metoprolol Tartrate [Lopressor] 25 mg PEG/G-TUBE BID@0800,199904/06/14 [History] Venlafaxine HCl [Effexor] 150 mg PEG/G-TUBE BID@09,169904/06/14 [History] Ipratropium-Albuterol Nebulize [Duoneb 0.5 mg-3 mg/3 ml Soln] 3 ml INHALATION RT-QID ml 03/25/21 [Rx] Amiodarone [Cordarone] 400 mg PEG/G-TUBE BID@09,169908/16/21 [History] Budesonide-Formot 160-4.5 Mcg [Symbicort 160-4.5 Mcg Inhaler] 2 puff INHALATION RT-BID@899,169908/16/21 [History] Cyanocobalamin [Vitamin B-12] 1,000 mcg PEG/G-TUBE DAILY 08/16/21 [History] Darbepoetin Soren [Aranesp] 40 mcg SQ WE PRN 08/16/21 [History] Famotidine [Pepcid] 40 mg PEG/G-TUBE BID@09,169908/16/21 [History] Folic Acid 1 mg PEG/G-TUBE DAILY 08/16/21 [History] Magnesium Hydroxide [Milk of Magnesia] 2,400 mg PEG/G-TUBE Q48H PRN 08/16/21 [H istory] Mupirocin 2% Oint [Bactroban 2% Oint] 1 applic TOPICAL Q12H PRN 08/16/21 [History] Sodium Bicarbonate Tab 650 mg PEG/G-TUBE BID@0900,1700 08/16/21 [History] Sodium Polystyrene Sulfonate [Kayexalate] 15 gm PEG/G-TUBE SA 08/16/21 [History] Warfarin [Coumadin] 3 mg PEG/G-TUBE DAILY@199908/16/21 [History] bisacodyL [Dulcolax] 10 mg RECTAL Q72H PRN 08/16/21 [History] Cefuroxime Axetil [Ceftin] 500 mg PO BID 5 Days #10 tab 08/18/21 [Rx] Follow up Appointment(s)/Referral(s): Joan Ross, [NON-STAFF] - 1 Week Giovanna Jama MD [Primary Care Provider] - 1-2 days Discharge Disposition: HOME WITH HOME HEALTH SERVICES
[2021-08-21 11:01] VITALS: PULSE 92
--- NOTE | 2021-08-21 12:41 | P.PN ---
Subjective Progress Note Date: 08/21/21 CHIEF COMPLAINT: No functioning PEG tube HISTORY OF PRESENT ILLNESS: Patient is tolerating tube feedings at 55 mL per hour. Goal tube feedings is at 60. No significant residual reported. Denies any abdominal pain. Denies any nausea or vomiting. Patient reports that the tubing on the PEG tube had to be replaced yesterday because it had been leaking. PEG tube is functioning appropriately. Afebrile. PHYSICAL EXAM: VITAL SIGNS: Reviewed. GENERAL: Well-developed in no acute distress. HEENT: No sclera icterus. Extraocular movements grossly intact. Moist buccal mucosa. Head is atraumatic, normocephalic. ABDOMEN: Soft. Nondistended. Nontender. PEG tube site clean dry and intact. To the left of the PEG tube there is some mild erythema noted on the abdominal wall. NEUROLOGIC: Alert and oriented. Cranial nerves II through XII grossly intact. ASSESSMENT: 1. PEG tube malfunction status post replacement PLAN: -Continue to increase tube feeds as tolerated to goal -Patient is scheduled to be discharged to [facility]CF today -Patient can be discharged from surgical standpoint Physician Celery Wrapper note has been reviewed by physician. Signing provider agrees with the documented findings, assessment, and plan of care. Objective - Vital Signs Vital signs: Vital Signs Temp 98 F 08/21/21 05:22 Pulse 88 08/21/21 08:00 Resp 18 08/21/21 10:12 BP 141/76 08/21/21 07:25 Pulse Ox 94 L 08/21/21 10:12 Intake & Output 08/20/21 08/21/21 08/21/21 18:59 06:59 18:59 Intake Total 1070 Output Total 830 800 Balance 240 -800 Weight 82 kg Intake: Intake, IV Titration 290 Amount Sodium Chloride 0.9% 1, 240 000 ml @ 20 mls/hr IV . Q24H [facility] Rx#:[id number] cefTRIAXone 1 gm In 50 Sodium Chloride 0.9% 50 ml @ 100 mls/hr IVPB Q12HR [facility] Rx#:[id number] Tube Feeding 420 Other 360 Output: Urine 830 800 Coude 30 Other: Voiding Method Indwelling Catheter Indwelling Catheter Diaper Indwelling Catheter - Labs CBC & Chem 7: 08/21/21 06:06 08/21/21 06:06 Labs: Abnormal Lab Results - Last 24 Hours (Table) 08/20/21 08/20/21 08/21/21 Range/Units 13:09 17:05 06:06 RBC (4.30-5.90) m/uL Hgb (13.0-17.5) gm/dL Hct (39.0-53.0) % MCV (80.0-100.0) fL Lymphocytes # (1.0-4.8) k/uL PT 25.7 H (9.0-12.0) sec INR 2.7 H (<1.2) POC Glucose (mg/dL) 123 H 114 H (75-99) mg/dL Albumin (3.5-5.0) g/dL 08/21/21 08/21/21 Range/Units 06:06 06:06 RBC 3.64 L (4.30-5.90) m/uL Hgb 12.4 L (13.0-17.5) gm/dL Hct 37.5 L (39.0-53.0) % MCV 102.9 H (80.0-100.0) fL Lymphocytes # 0.9 L (1.0-4.8) k/uL PT (9.0-12.0) sec INR (<1.2) POC Glucose (mg/dL) (75-99) mg/dL Albumin 3.0 L (3.5-5.0) g/dL
== END 2021-08-21 12:25 | disposition home health service (06) ==
LOC: EC 02:04 → 1SOBS 03:29 → 5NMEDONC 13:39
PROVIDERS: ADMIT Internal Medicine; ATTEND Internal Medicine
DX: K94.23 Gastrostomy malfunction (principal); I69.391 Dysphagia following cerebral infarction; E87.5 Hyperkalemia; I12.9 Hypertensive chronic kidney disease with stage 1 through stage 4 chronic kidney disease, or unspecified chronic kidney disease; N18.9 Chronic kidney disease, unspecified; E11.22 Type 2 diabetes mellitus with diabetic chronic kidney disease; I48.0 Paroxysmal atrial fibrillation; E78.5 Hyperlipidemia, unspecified; I69.321 Dysphasia following cerebral infarction; N39.0 Urinary tract infection, site not specified; K44.9 Diaphragmatic hernia without obstruction or gangrene; I69.351 Hemiplegia and hemiparesis following cerebral infarction affecting right dominant side; H54.61 Unqualified visual loss, right eye, normal vision left eye; R26.81 Unsteadiness on feet; F32.A Depression, unspecified; F17.210 Nicotine dependence, cigarettes, uncomplicated; E46 Unspecified protein-calorie malnutrition; Z68.25 Body mass index [BMI] 25.0-25.9, adult; Z87.442 Personal history of urinary calculi; Z86.14 Personal history of Methicillin resistant Staphylococcus aureus infection; Z71.9 Counseling, unspecified; Z79.899 Other long term (current) drug therapy; Z79.01 Long term (current) use of anticoagulants; Z79.51 Long term (current) use of inhaled steroids; Z79.4 Long term (current) use of insulin; Z96.0 Presence of urogenital implants; Z90.3 Acquired absence of stomach [part of]
CPT/HCPCS: 99284; 94640 ×12; 94760 ×3; 97116 ×2; 97162; 97530; 97165; 80053 ×3; 80048; 83735; 85025 ×4; 85610 ×6; 81001 ×2; 87086; 87635; 74018; 43246; G0378 ×7; J1940; J2001; J1650 ×4; J0696 ×6; J2704; Q9967; B4087

== ENCOUNTER 2021-09-17 15:45 | Emergency (ER) | payer MEDICARE ==
[2021-09-17 16:00] VITALS: RESP 18; TEMP 96.5
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
[2021-09-17 17:51] VITALS: BP 150/84; PULSE 74
== END 2021-09-17 17:51 | disposition home or self-care (01) ==
LOC: EC 15:45
DX: S39.94XA Unspecified injury of external genitals, initial encounter (principal); E11.9 Type 2 diabetes mellitus without complications; I10 Essential (primary) hypertension; F17.200 Nicotine dependence, unspecified, uncomplicated; Z86.73 Personal history of transient ischemic attack (TIA), and cerebral infarction without residual deficits; Z79.899 Other long term (current) drug therapy; Z79.4 Long term (current) use of insulin; Z96.0 Presence of urogenital implants; X58.XXXA Exposure to other specified factors, initial encounter
CPT/HCPCS: 99283

== ENCOUNTER → 2021-11-13 | Outpatient (CLI) | payer MEDICARE ==
--- NOTE | 2021-11-14 07:14 | CT ---
EXAMINATION TYPE: CT abdomen wo con DATE OF EXAM: 11/13/2021 HISTORY: abdominal abscess at site of PEG tube, focal pain and swelling CT DLP: 581.8 mGycm. Automated Exposure Control for Dose Reduction was Utilized. TECHNIQUE: CT scan of the abdomen is performed with oral but without IV contrast. COMPARISON: NONE FINDINGS: Within the limitations of a non-contrast study, the following observations are made. LUNG BASES: There is new consolidation and/or atelectasis anterior right lung base at site of prior m inor scarring. Reticular and reticulonodular increased markings in the posterior right lung base. LIVER/GB: Large calcified intraluminal gallstones in contracted gallbladder. No surrounding inflammat ory change. PANCREAS: No significant abnormality is seen. SPLEEN: No significant abnormality is seen. ADRENALS: Left adrenal gland now well-seen and may be surgically absent. KIDNEYS: Interval surgical removal of left kidney. Suspected approximately 3 tiny calculi measuring 2 mm throughout the right kidney. BOWEL: Oral contrast only reaches the mid small bowel level. The PEG Tube position is satisfactory. I rregular fluid with adjacent skin thickening extends inferiorly lateral to the PEG tube measuring 2.7 x 1.9 cm. No suspicious small or large bowel dilatation. LYMPH NODES: No greater than 1cm abdominal lymph nodes are appreciated. OSSEOUS STRUCTURES: Moderate multilevel spurring lower thoracic and upper lumbar spine. Prominent Antoni morl node superior L1 endplate. Osseous structures are demineralized. Bilateral pars defect L5 level without spondylolisthesis. OTHER: Moderate to severe calcified plaque distal abdominal aorta extending into iliac branch vessels . Persistent eventration lateral right lower quadrant wall containing portion of colon and mesenteric fat just above the right iliac crest IMPRESSION: 1. New PEG tube is satisfactory in position. Small adjacent irregular thin-walled fluid collection in the anterior abdominal wall inferior and lateral to PEG tube insertion site is nonspecific. Finding could be related to insertional procedure or seroma. Other etiologies are not excluded. Developing ab scess cannot be excluded. Correlate clinically. 2. Interval left nephrectomy and probable adrenalectomy.
== END | disposition home or self-care (01) ==
LOC: RADCTMAIN 15:06
PROVIDERS: ATTEND Surgery
DX: L02.211 Cutaneous abscess of abdominal wall (principal)
CPT/HCPCS: 36415; 74150; 82565; 84520

== ENCOUNTER → 2022-07-10 | Outpatient (CLI) | payer MEDICARE ==
--- NOTE | 2022-07-10 12:08 | CTL ---
EXAMINATION TYPE: CT Low Dose Lung DATE OF EXAM ORDERED: 07/10/2022 HISTORY: Long-term tobacco use. Lung cancer screening CT DLP: 90.[address] CTDI: 2.4 mGy Automated exposure control for dose reduction was used. SCREENING VISIT: Baseline COMPARISON: Prior chest CT July 04, [address] 2012 TECHNIQUE: Low dose computed tomography scan was performed through the chest at 1 mm thick sections a nd reconstructed images in multiple planes at 1 mm and [address] DIAGNOSTIC QUALITY: Satisfactory FINDINGS: LUNG NODULES: Present, detailed below: Small focus of groundglass opacity with slight nodularity in the inferior lateral right upper lobe me asures 7 x 4 mm axial image 137 with central tiny round lucent area. LUNGS: COPD: Severity: Moderate Fibrosis: Severity: Mild Lymph nodes: None Other findings: Prominent right and left pulmonary arteries raise concern for underlying pulmonary ar denilson hypertension. RIGHT PLEURAL SPACE: Effusion: None Calcification: None Thickening: None Pneumothorax: None LEFT PLEURAL SPACE: Effusion: None Calcification: None Thickening: None Pneumothorax: None HEART: Heart Size: Normal Coronary Calcification: Moderate to severe calcification and/or stents in the LAD and left circumflex distribution, correlate clinically. Pericardial Effusion: None OTHER FINDINGS: Upper abdomen: Percutaneous gastrostomy tube noted. Stone filled contracted gallbladder partially coby ged. Bony thorax: Prominent bridging osteophytes in the midthoracic spine right aspect and anteriorly are noted. Supraclavicular region: None Other: Probable some left-sided gynecomastia is partially imaged near axial image 27 series 5. IMPRESSION: No significant greater than 6 mm true pulmonary nodules. Moderate emphysematous change wi th mild scattered fibrotic changes identified. CT LUNG RAD AND CT CHEST RECOMMENDATION: Lung-Rad 2 Benign Appearance or Behavior: Continue annual sc reening with LDCT in 12 months. S Modifier (other clinically significant findings): None
== END | disposition home or self-care (01) ==
LOC: RADCTMAIN 06:33
PROVIDERS: ATTEND Family Medicine
DX: Z12.2 Encounter for screening for malignant neoplasm of respiratory organs (principal); Z87.891 Personal history of nicotine dependence
CPT/HCPCS: 71271

== ENCOUNTER → 2022-10-17 | Outpatient (CLI) | payer MEDICARE ==
--- NOTE | 2022-10-17 08:57 | US ---
EXAMINATION TYPE: US renals and bladder DATE OF EXAM: 10/17/2022 COMPARISON: US & CT CLINICAL HISTORY: N18.30 CKD STAGE 3. CKD, pre and post void EXAM MEASUREMENTS: Right Kidney: 11.8 x 4.6 x 5.8 cm Left Kidney: Surgically absent Post Void Residual Volume: 164.4 mL Right Kidney: wnl Left Kidney: Surgically absent Bladder: wnl Bilateral Jets seen: Right jet visualized Normal Post Void Residual: No There is no evidence for hydronephrosis at this point in time. No nephrolithiasis is seen. No fernando s are identified. The urinary bladder is anechoic. Right ureteral jet is seen. IMPRESSION: 1. No evidence of right obstructive uropathy. 2. Surgically absent left kidney. 3. No significant post void residual.
== END | disposition home or self-care (01) ==
LOC: RADUSWWP 08:20
PROVIDERS: ATTEND Internal Medicine Nephrology
DX: N18.30 Chronic kidney disease, stage 3 unspecified (principal); Z90.5 Acquired absence of kidney
CPT/HCPCS: 76770

== ENCOUNTER 2023-06-11 11:21 | Day surgery (SDC) | payer MEDICARE, OTHER ==
[2023-06-07 14:17] VITALS: BMI 28.3
[~2023-06-11 11:21] MED LIST changes: -GENTAMICIN 440 MG in SODIUM CHLORIDE 0.9% 100 ML IVPB PRN; +LACTATED RINGERS 1,000 ML IV SCH; +LIDOCAINE 1% (10MG/ML) FOR IV START INTRADERMA PRN
[2023-06-11 12:10] VITALS: RESP 16; TEMP 96.6
[2023-06-11 12:18] LABS: Glucose,Whole Blood 113 mg/dL (70-110)
[2023-06-11] MEDS ORDERED: LIDOCAINE 2% INJ 20 MG/ML (2 ML VIAL) ONE (12:28)
[2023-06-11] MEDS ORDERED: PROPOFOL 10 MG/ML 20 ML VIAL IV ONE (12:28)
--- NOTE | 2023-06-11 12:52 | P.PCN ---
Date of Procedure: 06/11/23 Procedure(s) Performed: PREOPERATIVE DIAGNOSIS: Malnutrition, PEG tube malfunction POSTOPERATIVE DIAGNOSIS: Same PROCEDURE: EGD with PEG tube replacement SURGEON: Rell EBL: Minimal ANESTHESIA: Sedation COMPLICATIONS: None OPERATIVE PROCEDURE: The patient was placed in the supine position on the endoscopy table. The patient was sedated per anesthesia that time. The Olympus gastroscope was inserted into the oropharynx and passed under direct visualization to the region of the duodenum. No obstruction was seen. The pylorus was widely patent. The stomach was carefully inspected. The stomach was fully insufflated with air. The previous PEG tube was noted. This was able to be removed with traction quite easily. A new 20-Moz[place]ican non-balloon replacement was advanced without difficulty through the same stoma. The duodenum and stomach were inspected. Minimal gastritis was seen. The esophagus appear normal. There was no evidence of any bleeding and there was appropriate tightness on the bolster. The dual port feeding adapter was applied. DISPOSITION: Stable to recovery room
[2023-06-11 13:25] VITALS: BP 137/78; PULSE 78
== END 2023-06-11 14:02 | disposition home or self-care (01) ==
LOC: ORWHC2ENDO 11:21
PROVIDERS: ATTEND Surgery
DX: K94.23 Gastrostomy malfunction (principal); E46 Unspecified protein-calorie malnutrition; Z68.26 Body mass index [BMI] 26.0-26.9, adult; K29.70 Gastritis, unspecified, without bleeding; E11.9 Type 2 diabetes mellitus without complications; E78.5 Hyperlipidemia, unspecified; I10 Essential (primary) hypertension; F32.9 Major depressive disorder, single episode, unspecified; I48.91 Unspecified atrial fibrillation; I73.9 Peripheral vascular disease, unspecified; F17.210 Nicotine dependence, cigarettes, uncomplicated; K21.9 Gastro-esophageal reflux disease without esophagitis; K44.9 Diaphragmatic hernia without obstruction or gangrene; Z79.01 Long term (current) use of anticoagulants; Z98.890 Other specified postprocedural states; Z79.02 Long term (current) use of antithrombotics/antiplatelets; Z79.811 Long term (current) use of aromatase inhibitors; Z79.51 Long term (current) use of inhaled steroids; Z79.899 Other long term (current) drug therapy
CPT/HCPCS: 43246; J2704; J2001

== ENCOUNTER → 2023-10-31 | Outpatient (CLI) | payer MEDICARE ==
--- NOTE | 2023-10-31 10:02 | XR ---
EXAMINATION TYPE: XR chest 2V DATE OF EXAM: 10/31/2023 COMPARISON: 07/07/2021 INDICATION: Cough, presurgical evaluation TECHNIQUE: Frontal and lateral views of the chest are obtained. FINDINGS: The heart size is normal. The pulmonary vasculature is normal. The lungs are clear. There is some hyperinflation flattening the diaphragms. Correlate emphysematous change. IMPRESSION: 1. No acute pulmonary process. 2 clinical consideration for
== END | disposition home or self-care (01) ==
LOC: RADXRMAIN 09:49
PROVIDERS: ATTEND Family Medicine
DX: Z01.818 Encounter for other preprocedural examination (principal); R05.1 Acute cough
CPT/HCPCS: 71046

== ENCOUNTER → 2024-01-20 | Outpatient (CLI) | payer MEDICARE ==
[2024-01-20 21:46] LABS: ALT 9 U/L (10-49); AST 14 U/L (14-35); Chol/HDL Ratio 5.97 Ratio; LDL Cholesterol,Calculated 103.1 mg/dL (0.0-131.0); T4, Free (Free Thyroxine) 1.04 ng/dL (0.80-1.80)
== END | disposition home or self-care (01) ==
LOC: LABWHC1 13:11
PROVIDERS: ATTEND Internal Medicine Interventional Cardiology
DX: E78.00 Pure hypercholesterolemia, unspecified (principal)
CPT/HCPCS: 36415; 80061; 84439; 84443; 84450; 84460

== ENCOUNTER 2024-04-05 15:13 | Inpatient (IN) | payer MEDICARE ==
[2024-04-05] MEDS: SODIUM CHLORIDE 0.9% 500 ML 500 ML IV STA (16:20)
[2024-04-05] MEDS: MORPHINE SULFATE 4 MG/ML SYRINGE IVP STA (16:21)
--- NOTE | 2024-04-05 16:41 | XR ---
EXAMINATION TYPE: XR chest 2V DATE OF EXAM: 04/05/2024 4:36 PM CLINICAL INDICATION:Male, 63 years old with history of cough; COMPARISON: Chest radiographs from 10/31/2023 TECHNIQUE: XR chest 2V Frontal and lateral views of the chest. FINDINGS: Lungs/Pleura: There is no evidence of pleural effusion, focal consolidation, or pneumothorax. Pulmonary vascularity: Unremarkable. Heart/mediastinum: Cardiomediastinal silhouette is prominent in size. Musculoskeletal: No acute osseous pathology. IMPRESSION: Low lung volumes with a generalized hazy appearance which could represent atelectasis versus atypical infection versus pulmonary vascular congestion.
[2024-04-05 16:43] LABS: ALT 12 U/L (4-49); AST 22 U/L (17-59); African American GFR (CKD) 43 (>60 ml/min/1.73 sqM); Albumin 3.9 g/dL (3.5-5.0); Alkaline Phosphatase 96 U/L (38-126); Anion Gap 7 mmol/L; Blood Urea Nitrogen 29 mg/dL (9-20); Calcium 8.8 mg/dL (8.4-10.2); Carbon Dioxide 22 mmol/L (22-30); Chloride 109 mmol/L (98-107); Glucose 94 mg/dL (74-99); Non-African American GFR(CKD) 38 (>60 ml/min/1.73 sqM); Potassium 5.8 mmol/L (3.5-5.1); Sodium 138 mmol/L (137-145); Total Bilirubin 0.5 mg/dL (0.2-1.3); Total Protein 7.1 g/dL (6.3-8.2)
--- NOTE | 2024-04-05 16:46 | XR ---
EXAMINATION TYPE: XR foot limited RT DATE OF EXAM: 04/05/2024 4:36 PM CLINICAL INDICATION:Male, 63 years old with history of eval for osteomyelitis; [facility] COMPARISON: 06/21/2023 TECHNIQUE: XR foot limited RT examined in the AP, oblique, and lateral projections. FINDINGS: Postsurgical changes to the right foot first and second digit with amputation of the distal right fir st metatarsal and at the metatarsophalangeal joint of second digit. No definitive osseous erosion at this time. No evidence of fracture. No radiopaque foreign body. Lucency projecting over the surgical site possibly postsurgical change. Arthrosis course of the arterial vasculature. IMPRESSION: Postsurgical changes no evidence of fracture, osseous or radiopaque foreign body. Lucency possibly po stsurgical.
[2024-04-05 16:53] LABS: Prothrombin Time 10.8 sec (10.0-12.5)
[2024-04-05 16:58] LABS: Basophils # (A) 0.1 k/uL (0-0.2); Basophils % (A) 1 %; Eosinophils # (A) 0.3 k/uL (0-0.7); Eosinophils % (A) 4 %; HCT 43.9 % (39.0-53.0); HGB 13.9 gm/dL (13.0-17.5); Hypochromasia Slight; Lymphocytes # (A) 1.2 k/uL (1.0-4.8); Lymphocytes % (A) 16 %; MCH 31.8 pg (25.0-35.0); MCHC 31.6 g/dL (31.0-37.0); MCV 100.6 fL (80.0-100.0); Macrocytosis Slight; Mean Platelet Volume 8.5; Monocytes # (A) 0.7 k/uL (0-1.0); Monocytes % (A) 9 %; Neutrophils % (A) 66 %; Platelet Count 268 k/uL (150-450); RBC 4.36 m/uL (4.30-5.90); RDW 15.5 % (11.5-15.5); WBC 7.5 k/uL (3.8-10.6)
--- NOTE | 2024-04-05 17:57 | US ---
EXAMINATION TYPE: US venous doppler duplex LE RT DATE OF EXAM: 04/05/2024 5:14 PM COMPARISON: NONE CLINICAL INDICATION: Male, 63 years old with history of eval for dvt/occlusive process; rt leg pain SIDE PERFORMED: Right TECHNIQUE: The lower extremity deep venous system is examined utilizing real time linear array sonog sam with graded compression, doppler sonography and color-flow sonography. VESSELS IMAGED: Common Femoral Vein Deep Femoral Vein Greater Saphenous Vein * Femoral Vein Popliteal Vein Small Saphenous Vein * Proximal Calf Veins (* superficial vessels) Right Leg: Negative for DVT exam limited by shadowing from stent and atherosclerotic plaque IMPRESSION: Grayscale, color doppler, spectral doppler imaging performed of the deep veins of the lo wer extremities. There is normal flow, compressibility, vascular waveforms.
--- NOTE | 2024-04-05 18:02 | US ---
EXAMINATION TYPE: US arterial LE single level DATE OF EXAM: 04/05/2024 5:45 PM CLINICAL INDICATION: Male, 63 years old with history of document pulses at ankle (TP/DP); rt leg krishan n History of: Smoker: Current Smoker Hypertension: Yes Diabetic: Yes Hyperlipidemia: Yes TIA/CVA: stroke Previous Vascular Surgery: femoral stent rt side CAD: no RI: no Vascular Ulcers: no Claudication: rt Gangrene: rt (2 toes removed) Doppler Waveforms: Right: unable to locate pulses Left: Monophasic Right Brachial Pressure: deferred due to IV Left Brachial Pressure: 141 Ankle-Brachial Indices: Right: unable to locate pulses Left: 1.0 (Vessel hardening > 1.4; Normal 0.9 - 1.4, Moderate 0.7 - 0.9, Severe 0.5-0.7) normal left CRISTOFER Toe Brachial Indices: Right: unable to assess due to weak pulses and patient movement Left: unable to assess due to weak pulses and patient movement limited exam IMPRESSION: Normal left brachial brachial index. Unable to locate pulse on the right.
[2024-04-05] MEDS ORDERED: VANCOMYCIN IV PER PHARMACY 1 EACH MISC MISCELLANE PRN (18:09)
[2024-04-05] MEDS ORDERED: NALOXONE 0.4 MG/ML 1 ML VIAL IV PRN (18:17)
[2024-04-05] MEDS ORDERED: MORPHINE SULFATE 4 MG/ML SYRINGE IV PRN (18:17)
[2024-04-05] MEDS ORDERED: ONDANSETRON 4 MG/2 ML VIAL IVP PRN (18:17)
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
[2024-04-05] MEDS: SODIUM CHLORIDE 0.9% 1,000 ML IV SCH (18:37)
[2024-04-05] MEDS: INSULIN REGULAR 100 UNIT/ML VIAL (IV) IV ONE (18:41)
[2024-04-05] MEDS: DEXTROSE 50% SYRINGE 50 ML IVP ONE (18:42)
[2024-04-05] MEDS: SODIUM ZIRCONIUM CYCLOSILICATE 10 GM PACKET PO ONE (18:46)
[2024-04-05] MEDS: ALBUTEROL NEB (CONC) 2.5 MG/0.5 ML INHALATION ONE (18:56)
[2024-04-05 19:03] LABS: Glucose,Whole Blood 149 mg/dL (70-110)
[2024-04-05] MEDS ORDERED: ALBUTEROL NEBULIZED 2.5 MG/3 ML INHALATION PRN (19:19)
[2024-04-05] MEDS: VANCOMYCIN 1,500 MG in SODIUM CHLORIDE 0.9% 500 ML 500 ML IVPB STA (20:38)
[2024-04-05] MEDS: ATORVASTATIN 40 MG TAB PEG/G-TUBE SCH (20:39)
[2024-04-05] MEDS: APIXABAN 2.5 MG TABLET PEG/G-TUBE SCH (20:39)
[2024-04-05] MEDS: FAMOTIDINE 20 MG TAB PEG/G-TUBE SCH (20:39)
[2024-04-05] MEDS: SODIUM BICARBONATE TAB 650 MG TAB PEG/G-TUBE SCH (20:39)
[2024-04-05] MEDS: METOPROLOL TARTRATE 50 MG TAB PEG/G-TUBE SCH (20:39)
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
[2024-04-05 23:16] LABS: African American GFR (CKD) 44 (>60 ml/min/1.73 sqM); Anion Gap 6 mmol/L; Blood Urea Nitrogen 27 mg/dL (9-20); Calcium 8.6 mg/dL (8.4-10.2); Carbon Dioxide 20 mmol/L (22-30); Chloride 112 mmol/L (98-107); Glucose 78 mg/dL (74-99); Non-African American GFR(CKD) 38 (>60 ml/min/1.73 sqM); Sodium 138 mmol/L (137-145)
[2024-04-06 08:46] LABS: Basophils # (A) 0.08 X 10*3/uL (0.00-0.10); Basophils % (A) 0.9 %; Eosinophils # (A) 0.27 X 10*3/uL (0.04-0.35); Eosinophils % (A) 3.1 %; HGB 12.7 g/dL (13.0-17.0); Lymphocytes # (A) 1.69 X 10*3/uL (0.90-5.00); Lymphocytes % (A) 19.5 %; MCH 31.3 pg (27.0-32.0); Mean Platelet Volume 10.4 FL (9.5-12.2); Monocytes # (A) 0.74 X 10*3/uL (0.20-1.00); Monocytes % (A) 8.5 %; NRBC Per 100 WBC 0 X 10*3/uL (0.00-0.01); Neutrophils # (A) 5.86 X 10*3/uL (1.80-7.70); Neutrophils % (A) 67.8 %; Platelet Count 273 X 10*3/uL (140-440); RBC 4.06 X 10*6/uL (4.40-5.60); RDW 15.6 % (11.5-14.5); WBC 8.66 X 10*3/uL (4.50-10.00)
[2024-04-06 09:02] LABS: ALT 11 U/L (10-49); AST 19 U/L (14-35); Albumin 3.7 g/dL (3.8-4.9); Albumin/Globulin Ratio 1.37 Ratio (1.60-3.17); Alkaline Phosphatase 96 U/L (41-126); BUN/Creat Ratio 13.79 Ratio (12.00-20.00); Blood Urea Nitrogen 26.2 mg/dL (9.0-27.0); Calcium 8.3 mg/dL (8.7-10.3); Carbon Dioxide 21.1 mmol/L (21.6-31.8); Chloride 108 mmol/L (96-109); Globulin 2.7 g/dL (1.6-3.3); Glucose 109 mg/dL (70-110); Potassium 5.9 mmol/L (3.5-5.5); Sodium 139 mmol/L (135-145); Total Bilirubin 0.2 mg/dL (0.3-1.2); Total Protein 6.4 g/dL (6.2-8.2)
[2024-04-06] MEDS: AMIODARONE 100 MG TAB PEG/G-TUBE SCH (09:31)
[2024-04-06] MEDS: LOSARTAN 25 MG TAB PEG/G-TUBE SCH (09:32)
[2024-04-06] MEDS: CLOPIDOGREL 75 MG TAB PEG/G-TUBE SCH (09:33)
[2024-04-06] MEDS: SODIUM ZIRCONIUM CYCLOSILICATE 10 GM PACKET PO ONE (11:53)
[2024-04-06] MEDS ORDERED: DEXTROSE 50% SYRINGE 50 ML IVP PRN ×2 (12:05)
[2024-04-06] MEDS: INSULIN ASPART (NovoLOG) 100 UNIT/ML VIAL SQ SCH (13:05)
[2024-04-06] MEDS: IPRATROPIUM-ALBUTEROL 3 ML NEB INHALATION PRN (13:08)
--- NOTE | 2024-04-06 14:36 | P.PN ---
Progress Note - Text 63-year-old gentleman who had a right big toe patient done in the past patient to a scab on the incision site but no drainage or redness noted patient had a right SFA stent placed in the past by Dr. Dillard patient complains of pain in the right foot dorsal pedis posterior tibial not palpable patient is scheduled to have a patient scheduled to have a angiogram of the right leg discussed with Dr. Dillard
[2024-04-06] MEDS: IPRATROPIUM-ALBUTEROL 3 ML NEB INHALATION SCH (15:34)
[2024-04-06 17:05] LABS: Glucose,Whole Blood 127 mg/dL (70-110)
[2024-04-06] MEDS: VANCOMYCIN 1,500 MG in SODIUM CHLORIDE 0.9% 500 ML 500 ML IVPB SCH (17:45)
[2024-04-06] MEDS: HYDROcodone/APAP 5-325MG 1 EACH TAB PO PRN (17:47)
[2024-04-06 18:35] LABS: Potassium 5.2 mmol/L (3.5-5.1)
[2024-04-06 19:57] LABS: Glucose,Whole Blood 126 mg/dL (70-110)
--- NOTE | 2024-04-06 22:16 | HP ---
HISTORY AND PHYSICAL I am covering for Dr. Schilling. CHIEF COMPLAINT: Right leg pain and coldness. HISTORY OF PRESENT ILLNESS: This is a 63-year-old gentleman with a past medical history of right foot osteomyelitis, infection, and stenting of the right SFA. He was noted to have right foot ulcer which is not healing, some discharge and pain and coldness also. Dr. Santizo is evaluating the patient. The patient also had a potassium of 5.9 and creatinine is elevated to 1.9 also. The previous cultures showed multifactorial organisms. The patient apparently stopped going to the wound care clinic recently. There is no history of any fever, rigors, or chills at this time. PAST MEDICAL HISTORY: History of right great toe amputation, atrial fibrillation, multiple other medical history, chart and history reviewed. HOME MEDICATIONS: Reviewed include sodium bicarb, dose and rest of medications reviewed. ALLERGIES: None. FAMILY HISTORY: History of atrial fibrillation in the family. SOCIAL HISTORY: Continued smoking. REVIEW OF SYSTEMS: Fourteen-point review of systems negative except as mentioned earlier. PHYSICAL EXAMINATION: VITAL SIGNS: Pulse is 93, blood pressure 140/80, respirations 14. HEENT: Conjunctivae normal. NECK: No jugular venous distention. CARDIOVASCULAR: S1, S2. RESPIRATION: Breath sounds diminished at the bases. Few scattered rhonchi and crackles. ABDOMEN: Soft, nontender. LEGS: Right foot infection, status post right great toe amputation. Pulses diminished bilaterally. Some tenderness and some erythema also present. LABORATORY DATA: WBC is 8.2, hemoglobin 12.7. ASSESSMENT: 1. Right foot diabetic ulcer. 2. Peripheral vascular disease. 3. Hyperkalemia. 4. Acute renal failure. 5. Atrial fibrillation. 6. Chronic obstructive pulmonary disease. 7. Diabetes mellitus, type 2. 8. Multiple complex medical issues. 9. Chronic percutaneous endoscopic gastrostomy tube. RECOMMENDATIONS AND DISCUSSION: This 63-year-old gentleman presented with multiple complex medical issues. We will monitor the patient closely. We will initiate broad-spectrum IV antibiotics, symptomatic treatment of the pain, importance of compliance is stressed. Infectious Disease and Vascular consultations. Resume the home medications. Obtain the cultures. Prognosis guarded because of multiple complex medical issues. Further recommendations to follow. See orders for details. MMODL / IJN: [id number] /
[2024-04-07 06:16] LABS: Glucose,Whole Blood 102 mg/dL (70-110)
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
[2024-04-07 08:11] LABS: African American GFR (CKD) 44 (>60 ml/min/1.73 sqM); Anion Gap 5 mmol/L; Blood Urea Nitrogen 26 mg/dL (9-20); Calcium 8.2 mg/dL (8.4-10.2); Carbon Dioxide 22 mmol/L (22-30); Chloride 113 mmol/L (98-107); Glucose 93 mg/dL (74-99); Non-African American GFR(CKD) 38 (>60 ml/min/1.73 sqM); Potassium 5.1 mmol/L (3.5-5.1); Sodium 140 mmol/L (137-145)
[2024-04-07] MEDS: FOLIC ACID 1 MG TAB PEG/G-TUBE SCH (08:38)
[2024-04-07 11:33] LABS: Glucose,Whole Blood 132 mg/dL (70-110)
[2024-04-07 11:38] LABS: Basophils # (A) 0.08 X 10*3/uL (0.00-0.10); Eosinophils # (A) 0.19 X 10*3/uL (0.04-0.35); Eosinophils % (A) 2.3 %; HCT 38.8 % (39.6-50.0); HGB 11.9 g/dL (13.0-17.0); Lymphocytes # (A) 0.98 X 10*3/uL (0.90-5.00); Lymphocytes % (A) 11.8 %; MCH 31.6 pg (27.0-32.0); MCHC 30.7 g/dL (32.0-37.0); MCV 102.9 FL (80.0-97.0); Mean Platelet Volume 10.2 FL (9.5-12.2); Monocytes # (A) 0.83 X 10*3/uL (0.20-1.00); NRBC Per 100 WBC 0 X 10*3/uL (0.00-0.01); Neutrophils % (A) 74.5 %; Platelet Count 238 X 10*3/uL (140-440); RBC 3.77 X 10*6/uL (4.40-5.60); RDW 15.4 % (11.5-14.5); WBC 8.31 X 10*3/uL (4.50-10.00)
--- NOTE | 2024-04-07 13:37 | PN ---
PROGRESS NOTE DATE OF SERVICE: 04/07/2024 I am covering for Dr. Schilling. SUBJECTIVE: This is a 63-year-old gentleman admitted with right leg pain, and hyperkalemia, is being closely monitored. No chest pain. No palpitation. OBJECTIVE: VITAL SIGNS: Pulse is 88, blood pressure 126/64, respirations 15. CHEST: Clear to auscultation. CARDIOVASCULAR: S1, S2. ABDOMEN: Soft. LEGS: Foot cellulitis present. LABORATORY DATA: Potassium 5.1. Rest of the labs are noted. ASSESSMENT: 1. Right foot diabetic ulcer. 2. Peripheral vascular disease. 3. Hyperkalemia. 4. Acute renal failure. 5. Atrial fibrillation. 6. Chronic obstructive pulmonary disease. 7. Diabetes mellitus, type 2. 8. Multiple medical issues. RECOMMENDATIONS AND DISCUSSION: Recommend to continue current management, continue symptomatic treatment. Repeat labs. Continue with antibiotics. Closely follow with multiple consultants. Further recommendations to follow. MMODL / IJN: [id number] /
[2024-04-07 17:14] LABS: Glucose,Whole Blood 142 mg/dL (70-110)
[2024-04-07 20:12] LABS: Glucose,Whole Blood 112 mg/dL (70-110)
[2024-04-08 05:27] LABS: Glucose,Whole Blood 94 mg/dL (70-110)
[2024-04-08 07:46] LABS: African American GFR (CKD) 41 (>60 ml/min/1.73 sqM); Blood Urea Nitrogen 27 mg/dL (9-20); Calcium 8.2 mg/dL (8.4-10.2); Carbon Dioxide 20 mmol/L (22-30); Glucose 87 mg/dL (74-99); Non-African American GFR(CKD) 35 (>60 ml/min/1.73 sqM); Potassium 5.7 mmol/L (3.5-5.1); Sodium 137 mmol/L (137-145)
[2024-04-08 08:06] LABS: Anion Gap 6 mmol/L; Chloride 111 mmol/L (98-107)
[2024-04-08] MEDS ORDERED: LIDOCAINE 1% INJ 10MG/ML (20 ML MDV) ONE (10:09)
[2024-04-08] MEDS ORDERED: HEPARIN SODIUM 1,000 UN/ML (10ML VL) ONE ×2 (10:13→10:47)
[2024-04-08] MEDS: SODIUM CHLORIDE 0.9% 1,000 ML IV ONE (10:30)
[2024-04-08] MEDS: MIDAZOLAM 2 MG/2 ML VIAL IVP ONE (10:31)
[2024-04-08] MEDS: LIDOCAINE 1% INJ 10MG/ML (20 ML MDV) SQ ONE (10:35)
[2024-04-08] MEDS ORDERED: FLUMAZENIL 0.1 MG/ML 5 ML VIAL IVP ONE (10:41)
[2024-04-08 10:42] LABS: HCT 39.1 % (39.6-50.0); HGB 11.8 g/dL (13.0-17.0); MCH 31.7 pg (27.0-32.0); MCHC 30.2 g/dL (32.0-37.0); MCV 105.1 FL (80.0-97.0); Mean Platelet Volume 10.5 FL (9.5-12.2); NRBC Per 100 WBC 0 X 10*3/uL (0.00-0.01); Platelet Count 225 X 10*3/uL (140-440); RBC 3.72 X 10*6/uL (4.40-5.60); RDW 15.4 % (11.5-14.5); WBC 9.14 X 10*3/uL (4.50-10.00)
[2024-04-08] MEDS: FLUMAZENIL 0.1 MG/ML 5 ML VIAL IVP ONE (10:42)
[2024-04-08] MEDS: HEPARIN SODIUM 1,000 UN/ML (10ML VL) IV ONE (10:50)
[2024-04-08] MEDS: HYDROmorphone 0.5 MG/0.5 ML SYRINGE IVP ONE ×2 (11:15→11:31)
[2024-04-08] MEDS ORDERED: FUROSEMIDE 10 MG/ML 4 ML VIAL ONE (11:22)
[2024-04-08] MEDS: FUROSEMIDE 10 MG/ML 4 ML VIAL IV ONE ×2 (11:23→12:42)
[2024-04-08] MEDS ORDERED: CLOPIDOGREL 75 MG TAB ONE (11:38)
[2024-04-08 11:39] LABS: Basophils # (A) 0.08 X 10*3/uL (0.00-0.10); Basophils % (A) 0.9 %; Eosinophils % (A) 3.3 %; Lymphocytes # (A) 0.93 X 10*3/uL (0.90-5.00); Lymphocytes % (A) 10.2 %; Monocytes # (A) 1.01 X 10*3/uL (0.20-1.00); Monocytes % (A) 11.1 %; Neutrophils # (A) 6.79 X 10*3/uL (1.80-7.70); Neutrophils % (A) 74.2 %
[2024-04-08 11:40] LABS: RBC Morphology Normal (Normal)
[2024-04-08 11:43] LABS: Glucose,Whole Blood 78 mg/dL (70-110)
[2024-04-08] MEDS: NITROGLYCERIN 1000MCG/10ML SYRINGE INTRAARTER ONE (11:45)
[2024-04-08] MEDS: niCARdipine Syringe (1,000 mcg/10 mL) INTRAARTER ONE (11:45)
[2024-04-08] MEDS ORDERED: NALOXONE 0.4 MG/ML 1 ML VIAL IVP PRN (12:39)
[2024-04-08] MEDS: CLOPIDOGREL 75 MG TAB PEG/G-TUBE ONE (12:42)
--- NOTE | 2024-04-08 12:44 | P.PCN ---
Date of Procedure: 04/08/24 Operative Findings: PERCUTANEOUS PERIPHERAL INTERVENTION Performing physician Bright Gonzalez M.D. Procedure performed 1. Successful balloon angioplasty and stenting of the right SFA and right popliteal unsuccessful angioplasty of the right anterior tibial artery 2. Adjunctive use of orbital atherectomy and intravascular ultrasound 3. Right lower extremity angiogram and left common femoral artery angiogram 4. Ultrasound-guided access of the left common femoral artery Indication CLI of the right lower extremity Approach Left common femoral artery Complications None Level of sedation Moderate with a sedation time of 120 minutes Procedure description After obtaining informed consent the patient was brought to the cardiac Auto Body Repair Technician. The left common femoral artery was cannulated using micropuncture technique under ultrasound guidance a micropuncture wire passed easily then I predilated using 6 [place] dilator before I placed a 7 cm 6 [place] sheath over 035 stiff wire. Subsequently I was able to advance the sheath to the right common femoral artery using 5 [place] rim catheter with 035 stiff wire. Right lower extremity angiogram was performed and showed one-vessel runoff below the knee with anterior tibial with occluded right popliteal and occluded right SFA. At that point anticoagulation was initiated using heparin with continuous ACT monitoring. After that I did cross the chronic total occlusion of the right SFA using a 035 stiff Glidewire with the backup support of all 3 5 catheter. After that I did change my wire into 014 wire and I did intravascular ultrasound which showed that I was in the colon all the way. Subsequently I did atherectomy using the orbital atherectomy device and using 1.5 mm luis alfredo. Balloon angioplasty after that was performed using 6 mm balloon and showed dissection appears to be flow-limiting. I decided to cover the dissection using stents. I deployed in the right popliteal at 7.0 x 140 mm Zilver PTX drug-coated stent and in the right SFA 7 mm x 140 mm Zilver PTX drug-coated stent and subsequently 7 mm x 60 mm and irregular PTX drug-eluting stent. After that I did balloon angioplasty of the previous stent using drug-coated balloon which was 6 x 60 mm drug-coated balloon. An angiogram was performed and showed no outflow. Subsequently selective angiogram was performed and showed dissection involving the ostial of the right anterior tibial artery. I was able to cross it and subsequently balloon with final results showing good angiographic results. Subsequently I did selective right iliac angiogram which showed intermediate lesion involving the ostial of the right external iliac artery. I did exchange my long sheath into short sheath using 035 stiff Glidewire before I did selective left common femoral artery angiogram. The procedure was completed with no complication Postprocedure management 1. Dual antiplatelet therapy 2. Aggressive cholesterol control 3. Risk factors modification 4. Follow-up with the patient
[2024-04-08] MEDS: IOPAMIDOL-370 200ML BTL INJ ONE (12:49)
--- NOTE | 2024-04-08 13:02 | IR ---
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 CLINICAL INDICATION:Male, 63 years old with history of right leg pain, 38.3min fluoro, 43.6Gycm2; , P HH Total fluoroscopy time is 38.2 min. DAP: 21.2 Gycm2 uGym2 Please see the operative/procedural note for further details.
[2024-04-08 14:42] LABS: Glucose,Whole Blood 90 mg/dL (70-110)
[2024-04-08] MEDS: SODIUM ZIRCONIUM CYCLOSILICATE 10 GM PACKET PO ONE (14:52)
[2024-04-08] MEDS: ASPIRIN 325 MG TAB PO STA (15:20)
--- NOTE | 2024-04-08 16:06 | P.PN ---
Subjective Progress Note Date: 04/07/24 Principal diagnosis: Reason for follow-up is right diabetic foot wound and cellulitis Patient is a 63-year-old male with a past medical history significant for atrial fibrillation COPD CVA TIA diabetes mellitus hypertension hyperlipidemia previous history of diabetic foot infection with amputation of the toes presenting to the hospital for evaluation of right foot pain as well as coldness sensation to the right foot On today's evaluation that is 04/07/2024, Patient is afebrile this morning and denies any chills, patient mention breathing comfortably and is currently on room air, patient denies any chest pain occasional cough patient denies any abdominal pain no diarrhea no nausea no vomiting patient has not worsening pain to the right foot area. Patient white count is 8.31, creatinine 1.86 Objective - Vital Signs Vital signs: Vital Signs Temp 98.3 F 04/07/24 14:55 Pulse 83 04/07/24 14:55 Resp 18 04/07/24 14:55 BP 120/66 04/07/24 14:55 Pulse Ox 97 04/07/24 14:55 FiO2 Intake & Output 04/06/24 04/07/24 04/07/24 18:59 06:59 18:59 Intake Total 540 709 Output Total 825 200 Balance 540 -825 509 Intake: Oral 540 709 Output: Urine 825 200 Other: Voiding Method Toilet Urinal # Voids 1 3 1 - Exam GENERAL DESCRIPTION: Middle-age male lying in bed in no distress RESPIRATORY SYSTEM: Unlabored breathing , decreased breath sounds at bases HEART: S1 S2 regular rate and rhythm , ABDOMEN: Soft , no tenderness EXTREMITIES: Right foot wound is currently dressed - Labs CBC & Chem 7: 04/08/24 06:31 04/08/24 06:31 Labs: Abnormal Lab Results - Last 24 Hours (Table) 04/06/24 04/06/24 04/06/24 Range/Units 17:00 18:06 19:56 RBC (4.40-5.60) X 10*6/uL Hgb (13.0-17.0) g/dL Hct (39.6-50.0) % MCV (80.0-97.0) FL MCHC (32.0-37.0) g/dL RDW (11.5-14.5) % Potassium 5.2 H (3.5-5.1) mmol/L Chloride 110 H (98-107) mmol/L BUN (9-20) mg/dL Creatinine (0.66-1.25) mg/dL POC Glucose (mg/dL) 127 H 126 H (70-110) mg/dL Hemoglobin A1c (<=6.0) % Calcium (8.4-10.2) mg/dL 04/07/24 04/07/24 04/07/24 Range/Units 07:08 07:08 07:08 RBC 3.77 L (4.40-5.60) X 10*6/uL Hgb 11.9 L (13.0-17.0) g/dL Hct 38.8 L (39.6-50.0) % MCV 102.9 H (80.0-97.0) FL MCHC 30.7 L (32.0-37.0) g/dL RDW 15.4 H (11.5-14.5) % Potassium (3.5-5.1) mmol/L Chloride 113 H (98-107) mmol/L BUN 26 H (9-20) mg/dL Creatinine 1.86 H (0.66-1.25) mg/dL POC Glucose (mg/dL) (70-110) mg/dL Hemoglobin A1c 6.8 H (<=6.0) % Calcium 8.2 L (8.4-10.2) mg/dL 04/07/24 Range/Units 11:31 RBC (4.40-5.60) X 10*6/uL Hgb (13.0-17.0) g/dL Hct (39.6-50.0) % MCV (80.0-97.0) FL MCHC (32.0-37.0) g/dL RDW (11.5-14.5) % Potassium (3.5-5.1) mmol/L Chloride (98-107) mmol/L BUN (9-20) mg/dL Creatinine (0.66-1.25) mg/dL POC Glucose (mg/dL) 132 H (70-110) mg/dL Hemoglobin A1c (<=6.0) % Calcium (8.4-10.2) mg/dL Microbiology - Last 24 Hours (Table) 04/05/24 18:19 Blood Culture - Preliminary Blood 04/05/24 18:34 Blood Culture - Preliminary Blood 04/05/24 18:34 Gram Stain - Preliminary Foot - Right Wound Culture - Preliminary Assessment and Plan (1) Cellulitis of right foot Current Visit: Yes Status: Acute Code(s): L03.115 - CELLULITIS OF RIGHT LOWER LIMB SNOMED Code(s): 99993504685807366 (2) Diabetic foot ulcer Current Visit: No Status: Acute Code(s): E11.621 - TYPE 2 DIABETES MELLITUS WITH FOOT ULCER; L97.509 - NON-PRESSURE CHRONIC ULCER OTH PRT UNSP FOOT W UNSP SEVERITY SNOMED Code(s): 936338991 Plan: 1patient presented to hospital with increasing pain and cold symptoms to the right foot in this patient who did have previous right foot to amputation apparently history of PAD and previous stenting to the right leg now with concern for possible ischemia component of infection not entirely excluded 2-patient has been eval by vascular surgery planning for angiogram scheduled for tomorrow 3-blood and local cultures obtained results currently pending 4-patient to continue with vancomycin pharmacy to dose target trough of 15 while watching kidney function and Vanco trough closely Dictation was produced using [employer] dictation software. please excuse any grammatical, word or spelling errors. Time with Patient: Less than 30
--- NOTE | 2024-04-08 16:28 | P.PN ---
Progress Note - Text 63-year-old gentleman patient came to the emergency room with a history of arterial insufficiency patient had a big toe potation in the past site has some scab formation noted patient had a intervention by her Dr. Gonzalez balloons angioplasty and stent of the SFA and popliteal artery vital signs stable foot is warm patient is on antiplatelet platelet therapy if patient is stable medically patient can go home tomorrow follow-up in my office in 2 weeks
[2024-04-08] MEDS ORDERED: VANCOMYCIN TROUGH DUE 1 EACH MISC MISCELLANE ONE (17:00)
[2024-04-08 17:07] LABS: Glucose,Whole Blood 79 mg/dL (70-110)
[2024-04-08] MEDS: SODIUM CHLORIDE 0.9% 1,000 ML in EMPTY BAG 1 BAG IV SCH (17:24)
[2024-04-08] MEDS: AMPICILLIN-SULBACTAM 3 GM in SODIUM CHLORIDE 0.9% 100 ML IVPB SCH (17:40)
[2024-04-08 19:58] LABS: Glucose,Whole Blood 135 mg/dL (70-110)
[2024-04-09 05:41] LABS: Glucose,Whole Blood 95 mg/dL (70-110)
--- NOTE | 2024-04-09 05:55 | P.PN ---
Subjective Progress Note Date: 04/08/24 This is a pleasant 63-year-old male who was recently admitted with right leg pain with a right foot diabetic ulcer with concerns of cellulitis. Multiple medical consultations following including vascular surgery, cardiology, and infectious disease. Patient is maintained on IV antibiotics and scheduled to undergo balloon angioplasty with angiogram with cardiology Dr. Gonzalez today and currently NPO. Will await surgical report. Potassium noted to be elevated above 6 and will give a dose of Lokelma recommend low potassium diet. Will follow-up on repeat labs. Patient is currently afebrile with no reports of chest pain or shortness of breath at this time. Review of systems: Constitutional: No reports of fatigue, fever, or chills Cardiovascular: No reports of chest pain or palpitations Respiratory: No reports of shortness of breath or cough GI: No reports of nausea, no reports of vomiting, no diarrhea : No reports of dysuria or retention Neurovascular: reports of generalized weakness, All medications have been reviewed PHYSICAL EXAMINATION: GENERAL: The patient is alert and oriented x4, Well developed, well nourished. HEENT: Pupils are round and equally reacting to light. EOMI. no scleral icterus. No conjunctival pallor. Normocephalic, atraumatic. No pharyngeal erythema. No th yromegaly. CARDIOVASCULAR: S1 and S2 muffled PULMONARY: diminished breath sounds bilaterally with no wheezing or rhonchi noted. ABDOMEN: soft. Nontender on exam. obese. non-distended, normoactive bowel sounds. No palpable organomegaly. MUSCULOSKELETAL: No joint swelling or deformity. EXTREMITIES: No cyanosis, clubbing, or pedal edema. NEUROLOGICAL: Gross neurological examination did not reveal any focal deficits. Diffuse weakness SKIN: No rashes. Assessment: Right foot diabetic ulcer Peripheral vascular disease, scheduled to undergo angiogram and balloon angioplasty on 04/08/2024 Hyperkalemia Acute renal failure History of atrial fibrillation Chronic obstructive pulmonary disease, not in exacerbation Diabetes mellitus, type II, uncontrolled with hyperglycemia GI prophylaxis DVT prophylaxis Full code Plan: Recommend to continue with current medications and management with multiple medical consultations following. Patient is status post balloon angioplasty with successful stenting of the right SFA and right popliteal, unsuccessful angioplasty of the right anterior tibial artery per cardiology report Evaluated by vascular surgery and is being followed by infectious disease and will need to discuss further regarding discharge planning Follow-up on repeat labs and continue to monitor closely Due to multiple complex medical issues, overall prognosis is guarded The impression and plan of care has been dictated by Benita Harrison, nurse practitioner as directed. Dr. Hilario MD I have performed a history and examination and MDM of this patient, discussed the same with the dictator, and agree with the dictator's assessment and plan as written ,documented as a scribe. Based on total visit time, I have performed more than 50% of the visit. Any additional findings or plans will be noted. Objective - Vital Signs Vital signs: Vital Signs Temp 98.5 F 04/09/24 00:24 Pulse 88 04/09/24 04:31 Resp 18 04/09/24 01:17 BP 110/67 04/08/24 19:48 Pulse Ox 95 04/09/24 00:24 FiO2 Intake & Output 04/08/24 04/08/24 04/09/24 06:59 18:59 06:59 Intake Total 568 Output Total 1300 2700 2200 Balance -1300 -2132 -2200 Intake: IV 450 Oral 118 Output: Urine 1300 2700 2200 Uretheral (Lara) 2700 1800 Other: Voiding Method Toilet Indwelling Catheter Indwelling Catheter Urinal - Labs CBC & Chem 7: 04/08/24 06:31 04/08/24 06:31 Labs: Abnormal Lab Results - Last 24 Hours (Table) 04/08/24 04/08/24 04/08/24 Range/Units 06:31 06:31 19:57 RBC 3.72 L (4.40-5.60) X 10*6/uL Hgb 11.8 L (13.0-17.0) g/dL Hct 39.1 L (39.6-50.0) % MCV 105.1 H (80.0-97.0) FL MCHC 30.2 L (32.0-37.0) g/dL RDW 15.4 H (11.5-14.5) % Monocytes # 1.01 H (0.20-1.00) X 10*3/uL Potassium 5.7 H (3.5-5.1) mmol/L Chloride 111 H (98-107) mmol/L Carbon Dioxide 20 L (22-30) mmol/L BUN 27 H (9-20) mg/dL Creatinine 1.97 H (0.66-1.25) mg/dL POC Glucose (mg/dL) 135 H (70-110) mg/dL Calcium 8.2 L (8.4-10.2) mg/dL Microbiology - Last 24 Hours (Table) 04/05/24 18:19 Blood Culture - Preliminary Blood 04/05/24 18:34 Blood Culture - Preliminary Blood 04/05/24 18:19 Anaerobic Culture - Final Foot - Right Finegoldia magna
[2024-04-09 10:09] LABS: BUN/Creat Ratio 15.05 Ratio (12.00-20.00); Blood Urea Nitrogen 30.1 mg/dL (9.0-27.0); Calcium 8.4 mg/dL (8.7-10.3); Carbon Dioxide 21.3 mmol/L (21.6-31.8); Chloride 107 mmol/L (96-109); Glucose 87 mg/dL (70-110); Potassium 5.9 mmol/L (3.5-5.5); Sodium 139 mmol/L (135-145)
[2024-04-09 10:54] LABS: Basophils # (A) 0.04 X 10*3/uL (0.00-0.10); Basophils % (A) 0.4 %; Eosinophils # (A) 0.11 X 10*3/uL (0.04-0.35); HCT 38.3 % (39.6-50.0); HGB 11.5 g/dL (13.0-17.0); Lymphocytes # (A) 0.74 X 10*3/uL (0.90-5.00); Lymphocytes % (A) 6.9 %; MCH 30.7 pg (27.0-32.0); MCV 102.1 FL (80.0-97.0); Mean Platelet Volume 10.3 FL (9.5-12.2); Monocytes # (A) 1.07 X 10*3/uL (0.20-1.00); NRBC Per 100 WBC 0 X 10*3/uL (0.00-0.01); Neutrophils # (A) 8.69 X 10*3/uL (1.80-7.70); Neutrophils % (A) 81.4 %; Platelet Count 229 X 10*3/uL (140-440); RBC 3.75 X 10*6/uL (4.40-5.60); RDW 15.4 % (11.5-14.5); WBC 10.68 X 10*3/uL (4.50-10.00)
[2024-04-09 12:13] LABS: Glucose,Whole Blood 89 mg/dL (70-110)
[2024-04-09] MEDS: INSULIN REGULAR 100 UNIT/ML VIAL (IV) IV ONE (13:49)
[2024-04-09] MEDS: DEXTROSE 50% SYRINGE 50 ML IVP STA (13:51)
[2024-04-09] MEDS: CALCIUM GLUCONATE IN NACL 1 GM in SALINE 1 100ML.BAG IVPB ONE (13:52)
[2024-04-09 14:54] LABS: Glucose,Whole Blood 130 mg/dL (70-110)
--- NOTE | 2024-04-09 16:35 | P.PN ---
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 Patient is status post balloon angioplasty and stenting of the right SFA and right popliteal however unsuccessful angioplasty of the right anterior tibial artery. On today's evaluation that is 04/08/2024,the patient denies any fever or any chills, patient is breathing comfortably on room air, the patient denies chest pain shortness of breath and no significant cough, patient denies abdominal pain, no nausea vomiting or diarrhea. Denies any worsening pain to the right lower extremity. Patient white count 9.14. Is 1.97 Objective - Vital Signs Vital signs: Vital Signs Temp 98.7 F 04/08/24 07:05 Pulse 84 04/08/24 08:56 Resp 17 04/08/24 07:05 BP 118/70 04/08/24 07:05 Pulse Ox 96 04/08/24 08:44 FiO2 Intake & Output 04/07/24 04/08/24 04/08/24 18:59 06:59 18:59 Intake Total 827 Output Total 200 1300 Balance 627 -1300 Intake: Oral 827 Output: Urine 200 1300 Other: Voiding Method Toilet Urinal # Voids 1 - Exam GENERAL DESCRIPTION: Middle-age male lying in bed in no distress RESPIRATORY SYSTEM: Unlabored breathing , decreased breath sounds at bases HEART: S1 S2 regular rate and rhythm , ABDOMEN: Soft , no tenderness EXTREMITIES: Right foot wound is currently dressed - Labs CBC & Chem 7: 04/08/24 06:31 04/08/24 06:31 Labs: Abnormal Lab Results - Last 24 Hours (Table) 04/07/24 04/07/24 04/08/24 Range/Units 17:12 20:11 06:31 RBC (4.40-5.60) X 10*6/uL Hgb (13.0-17.0) g/dL Hct (39.6-50.0) % MCV (80.0-97.0) FL MCHC (32.0-37.0) g/dL RDW (11.5-14.5) % Monocytes # (0.20-1.00) X 10*3/uL Potassium 5.7 H (3.5-5.1) mmol/L Chloride 111 H (98-107) mmol/L Carbon Dioxide 20 L (22-30) mmol/L BUN 27 H (9-20) mg/dL Creatinine 1.97 H (0.66-1.25) mg/dL POC Glucose (mg/dL) 142 H 112 H (70-110) mg/dL Calcium 8.2 L (8.4-10.2) mg/dL 04/08/24 Range/Units 06:31 RBC 3.72 L (4.40-5.60) X 10*6/uL Hgb 11.8 L (13.0-17.0) g/dL Hct 39.1 L (39.6-50.0) % MCV 105.1 H (80.0-97.0) FL MCHC 30.2 L (32.0-37.0) g/dL RDW 15.4 H (11.5-14.5) % Monocytes # 1.01 H (0.20-1.00) X 10*3/uL Potassium (3.5-5.1) mmol/L Chloride (98-107) mmol/L Carbon Dioxide (22-30) mmol/L BUN (9-20) mg/dL Creatinine (0.66-1.25) mg/dL POC Glucose (mg/dL) (70-110) mg/dL Calcium (8.4-10.2) mg/dL Microbiology - Last 24 Hours (Table) 04/05/24 18:19 Blood Culture - Preliminary Blood 04/05/24 18:34 Blood Culture - Preliminary Blood 04/05/24 18:19 Anaerobic Culture - Preliminary Foot - Right 04/05/24 18:34 Gram Stain - Final Foot - Right Wound Culture - Final Assessment and Plan (1) Cellulitis of right foot Current Visit: Yes Status: Acute Code(s): L03.115 - CELLULITIS OF RIGHT LOWER LIMB SNOMED Code(s): 56013490575858377 (2) Diabetic foot ulcer Current Visit: No Status: Acute Code(s): E11.621 - TYPE 2 DIABETES MELLITUS WITH FOOT ULCER; L97.509 - NON-PRESSURE CHRONIC ULCER OTH PRT UNSP FOOT W UNSP SEVERITY SNOMED Code(s): 346019436 Plan: 1patient presented to hospital with increasing pain and cold symptoms to the right foot in this patient who did have previous right foot to amputation apparently history of PAD and previous stenting to the right leg now with concern for possible ischemia component of infection not entirely excluded 2-patient has been eval by vascular surgery as well as cardiology the patient is status post balloon angioplasty and stenting of the right SFA, right popliteal but unsuccessful angioplasty of the right anterior tibial artery 3-blood culture has been negative local culture negative and resistant pathogen 4-with local culture negative for any resistant pathogen such as MRSA we will discontinue vancomycin start the patient on Unasyn Dictation was produced using [employer] dictation software. please excuse any grammatical, word or spelling errors.
[2024-04-09 17:18] LABS: Glucose,Whole Blood 98 mg/dL (70-110)
[2024-04-09 20:29] LABS: Glucose,Whole Blood 163 mg/dL (70-110)
--- NOTE | 2024-04-10 05:35 | P.PN ---
Subjective Progress Note Date: 04/09/24 This is a pleasant 63-year-old male who was recently admitted with right leg pain with a right foot diabetic ulcer with concerns of cellulitis. Multiple medical consultations following including vascular surgery, cardiology, and infectious disease. Patient is maintained on IV antibiotics and scheduled to undergo balloon angioplasty with angiogram with cardiology Dr. Gonzalez today and currently NPO. Will await surgical report. Potassium noted to be elevated above 6 and will give a dose of Lokelma recommend low potassium diet. Will follow-up on repeat labs. Patient is currently afebrile with no reports of chest pain or shortness of breath at this time. 04/09/2024 Patient seen in follow-up today no acute overnight issues noted status post balloon angioplasty. Will need to discuss further with infectious disease regarding discharge planning to determine discharge antibiotics. Cultures thus far have been negative. Patient is afebrile and asking when he can go home. Cardiology has cleared the patient for outpatient follow-up and will follow-up with vascular surgery as well. Potassium 5.9 and will give dextrose, calcium, insulin for correction and follow-up with repeat labs. Continue to enforce potassium diet. Review of systems: Constitutional: No reports of fatigue, fever, or chills Cardiovascular: No reports of chest pain or palpitations Respiratory: No reports of shortness of breath or cough GI: No reports of nausea, no reports of vomiting, no diarrhea : No reports of dysuria or retention Neurovascular: reports of generalized weakness All medications have been reviewed PHYSICAL EXAMINATION: GENERAL: The patient is alert and oriented x4, Well developed, well nourished. Elderly appearing HEENT: Pupils are round and equally reacting to light. EOMI. no scleral icterus. No conjunctival pallor. Normocephalic, atraumatic. No pharyngeal erythema. No thyromegaly. CARDIOVASCULAR: S1 and S2 muffled PULMONARY: diminished breath sounds bilaterally with no wheezing or rhonchi noted. ABDOMEN: soft. Nontender on exam. obese. non-distended, normoactive bowel sounds. No palpable organomegaly. MUSCULOSKELETAL: No joint swelling or deformity. EXTREMITIES: No cyanosis, clubbing, or pedal edema. NEUROLOGICAL: Gross neurological examination did not reveal any focal deficits. Diffuse weakness SKIN: No rashes. Assessment: Right foot diabetic ulcer Peripheral vascular disease, status post balloon angioplasty on 04/08/2024 Hyperkalemia Acute renal failure History of atrial fibrillation Chronic obstructive pulmonary disease, not in exacerbation Diabetes mellitus, type II, uncontrolled with hyperglycemia GI prophylaxis DVT prophylaxis Full code Plan: Recommend to continue with current medications and management with multiple medical consultations following. Patient is status post balloon angioplasty with successful stenting of the right SFA and right popliteal, unsuccessful angioplasty of the right anterior tibial artery per cardiology report Evaluated by vascular surgery and is being followed by infectious disease and will need to discuss further regarding discharge planning, hopeful for oral antibiotics on DC Follow-up on repeat labs and continue to monitor closely Due to multiple complex medical issues, overall prognosis is guarded Patient has been cleared by cardiology and vascular surgery for outpatient follow-up and will need to discuss with infectious disease regarding discharge antibiotics. Possible discharge in the next 24 hours The impression and plan of care has been dictated by Benita Harrison, nurse practitioner as directed. Dr. Hilario MD I have performed a history and examination and MDM of this patient, discussed the same with the dictator, and agree with the dictator's assessment and plan as written ,documented as a scribe. Based on total visit time, I have performed more than 50% of the visit. Any additional findings or plans will be noted. Objective - Vital Signs Vital signs: Vital Signs Temp 98.6 F 04/09/24 07:00 Pulse 74 04/09/24 12:12 Resp 18 04/09/24 07:00 BP 135/68 04/09/24 07:00 Pulse Ox 98 04/09/24 09:12 FiO2 Intake & Output 04/08/24 04/09/24 04/09/24 18:59 06:59 18:59 Intake Total 568 222 Output Total 2700 3300 400 Balance -2132 -3300 -178 Intake: IV 450 Oral 118 222 Output: Urine 2700 3300 400 Uretheral (Lara) 2700 1800 Other: Voiding Method Indwelling Catheter Indwelling Catheter Indwelling Catheter - Labs CBC & Chem 7: 04/09/24 05:26 04/09/24 05:26 Labs: Abnormal Lab Results - Last 24 Hours (Table) 04/08/24 04/09/24 04/09/24 Range/Units 19:57 05:26 05:26 WBC 10.68 H (4.50-10.00) X 10*3/uL RBC 3.75 L (4.40-5.60) X 10*6/uL Hgb 11.5 L (13.0-17.0) g/dL Hct 38.3 L (39.6-50.0) % MCV 102.1 H (80.0-97.0) FL MCHC 30.0 L (32.0-37.0) g/dL RDW 15.4 H (11.5-14.5) % Neutrophils # 8.69 H (1.80-7.70) X 10*3/uL Lymphocytes # 0.74 L (0.90-5.00) X 10*3/uL Monocytes # 1.07 H (0.20-1.00) X 10*3/uL Potassium 5.9 H (3.5-5.5) mmol/L Carbon Dioxide 21.3 L (21.6-31.8) mmol/L BUN 30.1 H (9.0-27.0) mg/dL Creatinine 2.0 H (0.6-1.5) mg/dL Est GFR (CKD-EPI) 37 L (>=60) POC Glucose (mg/dL) 135 H (70-110) mg/dL Calcium 8.4 L (8.7-10.3) mg/dL C-Reactive Protein 6.40 H (0.00-0.80) mg/dL Microbiology - Last 24 Hours (Table) 04/05/24 18:19 Blood Culture - Preliminary Blood 04/05/24 18:34 Blood Culture - Preliminary Blood 04/05/24 18:19 Anaerobic Culture - Final Foot - Right Finegoldia magna
[2024-04-10 05:55] LABS: Glucose,Whole Blood 105 mg/dL (70-110)
[2024-04-10 07:53] VITALS: RESP 20
[2024-04-10 07:58] VITALS: BMI 28.7
[2024-04-10 08:42] LABS: Basophils # (A) 0.05 X 10*3/uL (0.00-0.10); Basophils % (A) 0.6 %; Eosinophils # (A) 0.14 X 10*3/uL (0.04-0.35); Eosinophils % (A) 1.6 %; HCT 35.9 % (39.6-50.0); HGB 11.1 g/dL (13.0-17.0); Lymphocytes # (A) 0.79 X 10*3/uL (0.90-5.00); Lymphocytes % (A) 9.2 %; MCH 31.5 pg (27.0-32.0); MCHC 30.9 g/dL (32.0-37.0); Mean Platelet Volume 10.7 FL (9.5-12.2); Monocytes # (A) 1.19 X 10*3/uL (0.20-1.00); Monocytes % (A) 13.8 %; NRBC Per 100 WBC 0 X 10*3/uL (0.00-0.01); Neutrophils # (A) 6.45 X 10*3/uL (1.80-7.70); Neutrophils % (A) 74.7 %; Platelet Count 219 X 10*3/uL (140-440); RBC 3.52 X 10*6/uL (4.40-5.60); RDW 15.1 % (11.5-14.5); WBC 8.63 X 10*3/uL (4.50-10.00)
[2024-04-10 08:53] LABS: Magnesium 1.7 mg/dL (1.5-2.4)
[2024-04-10 08:58] LABS: BUN/Creat Ratio 14.95 Ratio (12.00-20.00); Blood Urea Nitrogen 29.9 mg/dL (9.0-27.0); Carbon Dioxide 20.8 mmol/L (21.6-31.8); Chloride 107 mmol/L (96-109); Glucose 84 mg/dL (70-110); Potassium 4.9 mmol/L (3.5-5.5); Sodium 138 mmol/L (135-145)
--- NOTE | 2024-04-10 10:05 | P.PN ---
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 Patient is status post balloon angioplasty and stenting of the right SFA and right popliteal however unsuccessful angioplasty of the right anterior tibial artery. On today's evaluation that is 04/09/2024,the patient remains to be afebrile, patient is on room air not requiring supplemental oxygen and denies any shortness of breath no chest pain or cough.Patient denies having any nausea or vomiting, no abdominal pain and no diarrhea or any worsening pain to the right foot wound area. Patient white count is 10.68 creatinine is 2.0 cultures currently pending Objective - Vital Signs Vital signs: Vital Signs Temp 98.6 F 04/09/24 15:00 Pulse 71 04/09/24 15:24 Resp 18 04/09/24 15:00 BP 134/66 04/09/24 15:00 Pulse Ox 97 04/09/24 15:00 FiO2 Intake & Output 04/08/24 04/09/24 04/09/24 18:59 06:59 18:59 Intake Total 568 222 Output Total 2700 3300 500 Balance -2132 -3300 -278 Intake: IV 450 Oral 118 222 Output: Urine 2700 3300 500 Uretheral (Lara) 2700 1800 Other: Voiding Method Indwelling Catheter Indwelling Catheter Indwelling Catheter - Exam GENERAL DESCRIPTION: Middle-age male lying in bed in no distress RESPIRATORY SYSTEM: Unlabored breathing , decreased breath sounds at bases HEART: S1 S2 regular rate and rhythm , ABDOMEN: Soft , no tenderness EXTREMITIES: Right foot wound is currently dressed with minimal drainage on the dressing - Labs CBC & Chem 7: 04/10/24 05:47 04/10/24 05:47 Labs: Abnormal Lab Results - Last 24 Hours (Table) 04/08/24 04/09/24 04/09/24 Range/Units 19:57 05:26 05:26 WBC 10.68 H (4.50-10.00) X 10*3/uL RBC 3.75 L (4.40-5.60) X 10*6/uL Hgb 11.5 L (13.0-17.0) g/dL Hct 38.3 L (39.6-50.0) % MCV 102.1 H (80.0-97.0) FL MCHC 30.0 L (32.0-37.0) g/dL RDW 15.4 H (11.5-14.5) % Neutrophils # 8.69 H (1.80-7.70) X 10*3/uL Lymphocytes # 0.74 L (0.90-5.00) X 10*3/uL Monocytes # 1.07 H (0.20-1.00) X 10*3/uL Potassium 5.9 H (3.5-5.5) mmol/L Carbon Dioxide 21.3 L (21.6-31.8) mmol/L BUN 30.1 H (9.0-27.0) mg/dL Creatinine 2.0 H (0.6-1.5) mg/dL Est GFR (CKD-EPI) 37 L (>=60) POC Glucose (mg/dL) 135 H (70-110) mg/dL Calcium 8.4 L (8.7-10.3) mg/dL C-Reactive Protein 6.40 H (0.00-0.80) mg/dL 04/09/24 Range/Units 14:52 WBC (4.50-10.00) X 10*3/uL RBC (4.40-5.60) X 10*6/uL Hgb (13.0-17.0) g/dL Hct (39.6-50.0) % MCV (80.0-97.0) FL MCHC (32.0-37.0) g/dL RDW (11.5-14.5) % Neutrophils # (1.80-7.70) X 10*3/uL Lymphocytes # (0.90-5.00) X 10*3/uL Monocytes # (0.20-1.00) X 10*3/uL Potassium (3.5-5.5) mmol/L Carbon Dioxide (21.6-31.8) mmol/L BUN (9.0-27.0) mg/dL Creatinine (0.6-1.5) mg/dL Est GFR (CKD-EPI) (>=60) POC Glucose (mg/dL) 130 H (70-110) mg/dL Calcium (8.7-10.3) mg/dL C-Reactive Protein (0.00-0.80) mg/dL Microbiology - Last 24 Hours (Table) 04/05/24 18:19 Blood Culture - Preliminary Blood 04/05/24 18:34 Blood Culture - Preliminary Blood 04/05/24 18:19 Anaerobic Culture - Final Foot - Right Dyllan miller Assessment and Plan (1) Cellulitis of right foot Current Visit: Yes Status: Acute Code(s): L03.115 - CELLULITIS OF RIGHT LOWER LIMB SNOMED Code(s): 34775384788177474 (2) Diabetic foot ulcer Current Visit: No Status: Acute Code(s): E11.621 - TYPE 2 DIABETES MELLITUS WITH FOOT ULCER; L97.509 - NON-PRESSURE CHRONIC ULCER OTH PRT UNSP FOOT W UNSP SEVERITY SNOMED Code(s): 704062386 Plan: 1patient presented to hospital with increasing pain and cold symptoms to the right foot in this patient who did have previous right foot to amputation apparently history of PAD and previous stenting to the right leg now with concern for possible ischemia component of infection not entirely excluded 2-patient has been eval by vascular surgery as well as cardiology the patient is status post balloon angioplasty and stenting of the right SFA, right popliteal but unsuccessful angioplasty of the right anterior tibial artery 3-blood culture has been negative local culture negative and resistant pathogen 4-patient to continue with Unasyn while inpatient and monitor clinical course closely Dictation was produced using [employer] dictation software. please excuse any grammatical, word or spelling errors. Time with Patient: Less than 30
[2024-04-10 12:29] LABS: Glucose,Whole Blood 118 mg/dL (70-110)
--- NOTE | 2024-04-10 13:24 | P.PN ---
Subjective Progress Note Date: 04/10/24 Principal diagnosis: Reason for follow-up is right diabetic foot wound and cellulitis Patient is a 63-year-old male with a past medical history significant for atrial fibrillation COPD CVA TIA diabetes mellitus hypertension hyperlipidemia previous history of diabetic foot infection with amputation of the toes presenting to the hospital for evaluation of right foot pain as well as coldness sensation to the right foot. Patient is status post balloon angioplasty and stenting of the right SFA and right popliteal however unsuccessful angioplasty of the right anterior tibial artery. On today's evaluation that is 04/10/2024, the patient continues to be afebrile, the patient is on 3 L current oxygen and breathing comfortably, the Pt denies having any chest pain or cough, the patient denies having any abdominal pain no vomiting or any diarrhea and denies any worsening pain to the right foot wound did have some drainage. Patient white count is 8.63, creatinine is 2.0 cultures with Finegoldia magna Objective - Vital Signs Vital signs: Vital Signs Temp 98.3 F 04/10/24 07:47 Pulse 111 H 04/10/24 09:17 Resp 20 04/10/24 07:47 BP 124/67 04/10/24 07:47 Pulse Ox 85 L 04/10/24 09:09 FiO2 Intake & Output 04/09/24 04/10/24 04/10/24 18:59 06:59 18:59 Intake Total 222 118 Output Total 500 Balance -278 118 Weight 90.718 kg Intake: Oral 222 118 Output: Urine 500 Other: Voiding Method Indwelling Catheter Toilet Urinal # Voids 3 # Bowel Movements 0 - Exam GENERAL DESCRIPTION: Middle-age male lying in bed in no distress RESPIRATORY SYSTEM: Unlabored breathing , decreased breath sounds at bases HEART: S1 S2 regular rate and rhythm , ABDOMEN: Soft , no tenderness EXTREMITIES: Right foot wound minimal slough tissue and some maceration - Labs CBC & Chem 7: 04/10/24 05:47 04/10/24 05:47 Labs: Abnormal Lab Results - Last 24 Hours (Table) 04/09/24 04/09/24 04/09/24 Range/Units 05:26 05:26 14:52 WBC 10.68 H (4.50-10.00) X 10*3/uL RBC 3.75 L (4.40-5.60) X 10*6/uL Hgb 11.5 L (13.0-17.0) g/dL Hct 38.3 L (39.6-50.0) % MCV 102.1 H (80.0-97.0) FL MCHC 30.0 L (32.0-37.0) g/dL RDW 15.4 H (11.5-14.5) % Neutrophils # 8.69 H (1.80-7.70) X 10*3/uL Lymphocytes # 0.74 L (0.90-5.00) X 10*3/uL Monocytes # 1.07 H (0.20-1.00) X 10*3/uL Potassium 5.9 H (3.5-5.5) mmol/L Carbon Dioxide 21.3 L (21.6-31.8) mmol/L BUN 30.1 H (9.0-27.0) mg/dL Creatinine 2.0 H (0.6-1.5) mg/dL Est GFR (CKD-EPI) 37 L (>=60) POC Glucose (mg/dL) 130 H (70-110) mg/dL Calcium 8.4 L (8.7-10.3) mg/dL C-Reactive Protein 6.40 H (0.00-0.80) mg/dL 04/09/24 04/10/24 04/10/24 Range/Units 20:28 05:47 05:47 WBC (4.50-10.00) X 10*3/uL RBC 3.52 L (4.40-5.60) X 10*6/uL Hgb 11.1 L (13.0-17.0) g/dL Hct 35.9 L (39.6-50.0) % MCV 102.0 H (80.0-97.0) FL MCHC 30.9 L (32.0-37.0) g/dL RDW 15.1 H (11.5-14.5) % Neutrophils # (1.80-7.70) X 10*3/uL Lymphocytes # 0.79 L (0.90-5.00) X 10*3/uL Monocytes # 1.19 H (0.20-1.00) X 10*3/uL Potassium (3.5-5.5) mmol/L Carbon Dioxide 20.8 L (21.6-31.8) mmol/L BUN 29.9 H (9.0-27.0) mg/dL Creatinine 2.0 H (0.6-1.5) mg/dL Est GFR (CKD-EPI) 37 L (>=60) POC Glucose (mg/dL) 163 H (70-110) mg/dL Calcium 8.0 L (8.7-10.3) mg/dL C-Reactive Protein (0.00-0.80) mg/dL Assessment and Plan (1) Cellulitis of right foot Current Visit: Yes Status: Acute Code(s): L03.115 - CELLULITIS OF RIGHT LOWER LIMB SNOMED Code(s): 44192050764368674 (2) Diabetic foot ulcer Current Visit: No Status: Acute Code(s): E11.621 - TYPE 2 DIABETES MELLITUS WITH FOOT ULCER; L97.509 - NON-PRESSURE CHRONIC ULCER OTH PRT UNSP FOOT W UNSP SEVERITY SNOMED Code(s): 649871788 Plan: 1patient presented to hospital with increasing pain and cold symptoms to the right foot in this patient who did have previous right foot to amputation apparently history of PAD and previous stenting to the right leg now with concern for possible ischemia component of infection not entirely excluded 2-patient has been eval by vascular surgery as well as cardiology the patient is status post balloon angioplasty and stenting of the right SFA, right popliteal but unsuccessful angioplasty of the right anterior tibial artery 3-blood culture now growing Finegoldia magna 4-patient to continue with Unasyn while inpatient and finishing therapy with oral Augmentin Dictation was produced using [employer] dictation software. please excuse any grammatical, word or spelling errors. Time with Patient: Less than 30
[2024-04-10 15:36] VITALS: BP 119/67; TEMP 98.7
[2024-04-10 16:13] VITALS: PULSE 106
[2024-04-10 17:26] LABS: Glucose,Whole Blood 101 mg/dL (70-110)
== END 2024-04-10 18:06 | disposition home or self-care (01) | DRG 270 ==
LOC: EC 15:13 → OBSVTOIN 18:17 → 6NMEDSUR 18:17
PROVIDERS: ADMIT Internal Medicine; ATTEND Internal Medicine
PROC: 047K34Z Dilation of Right Femoral Artery with Drug-eluting Intraluminal Device, Percutaneous Approach (ICD-10-PCS; principal; 2024-04-08 07:30)
PROC: 047M34Z Dilation of Right Popliteal Artery with Drug-eluting Intraluminal Device, Percutaneous Approach (ICD-10-PCS; principal; 2024-04-08 07:30)
PROC: B44FZZ3 Ultrasonography of Right Lower Extremity Arteries, Intravascular (ICD-10-PCS; principal; 2024-04-08 07:30)
PROC: 04CM3ZZ Extirpation of Matter from Right Popliteal Artery, Percutaneous Approach (ICD-10-PCS; principal; 2024-04-08 07:30)
PROC: B41F1ZZ Fluoroscopy of Right Lower Extremity Arteries using Low Osmolar Contrast (ICD-10-PCS; principal; 2024-04-08 07:30)
DX: E11.51 Type 2 diabetes mellitus with diabetic peripheral angiopathy without gangrene (principal); I77.77 Dissection of artery of lower extremity; N17.9 Acute kidney failure, unspecified; Z43.1 Encounter for attention to gastrostomy; L03.115 Cellulitis of right lower limb; E11.628 Type 2 diabetes mellitus with other skin complications; E11.621 Type 2 diabetes mellitus with foot ulcer; E11.22 Type 2 diabetes mellitus with diabetic chronic kidney disease; E11.65 Type 2 diabetes mellitus with hyperglycemia; I70.238 Atherosclerosis of native arteries of right leg with ulceration of other part of lower leg; I48.91 Unspecified atrial fibrillation; L97.519 Non-pressure chronic ulcer of other part of right foot with unspecified severity; N18.9 Chronic kidney disease, unspecified; J44.9 Chronic obstructive pulmonary disease, unspecified; I12.9 Hypertensive chronic kidney disease with stage 1 through stage 4 chronic kidney disease, or unspecified chronic kidney disease; I69.341 Monoplegia of lower limb following cerebral infarction affecting right dominant side; I69.398 Other sequelae of cerebral infarction; F32.A Depression, unspecified; Z89.411 Acquired absence of right great toe; Z28.310 Unvaccinated for COVID-19; E87.5 Hyperkalemia; E78.5 Hyperlipidemia, unspecified; J00 Acute nasopharyngitis [common cold]; G89.29 Other chronic pain; K21.9 Gastro-esophageal reflux disease without esophagitis; K44.9 Diaphragmatic hernia without obstruction or gangrene; H54.61 Unqualified visual loss, right eye, normal vision left eye; F17.210 Nicotine dependence, cigarettes, uncomplicated; Z79.01 Long term (current) use of anticoagulants; Z79.02 Long term (current) use of antithrombotics/antiplatelets; Z79.899 Other long term (current) drug therapy; Z86.14 Personal history of Methicillin resistant Staphylococcus aureus infection
CPT/HCPCS: 36415; 71046; 80048; 80051; 80053; 83036; 83605; 83735; 84132; 85025; 85610; 85730; 86140; 87040; 87070; 87075; 87205; 93005; 93922; 94640; 94760; 96361; 96374; 96375; 99285

== ENCOUNTER 2024-04-12 15:55 | Inpatient (IN) | payer MEDICARE ==
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
[2024-04-12 17:10] LABS: Basophils # (A) 0.1 k/uL (0-0.2); Basophils % (A) 1 %; Eosinophils # (A) 0.7 k/uL (0-0.7); Eosinophils % (A) 8 %; HCT 37.1 % (39.0-53.0); HGB 11.4 gm/dL (13.0-17.5); Hypochromasia Slight; Lymphocytes # (A) 0.8 k/uL (1.0-4.8); Lymphocytes % (A) 9 %; MCH 31.5 pg (25.0-35.0); MCHC 30.6 g/dL (31.0-37.0); MCV 102.8 fL (80.0-100.0); Macrocytosis Slight; Mean Platelet Volume 8.4; Monocytes # (A) 0.6 k/uL (0-1.0); Monocytes % (A) 7 %; Neutrophils # (A) 6.2 k/uL (1.3-7.7); Neutrophils % (A) 72 %; Platelet Count 283 k/uL (150-450); RBC 3.61 m/uL (4.30-5.90); RDW 15.2 % (11.5-15.5); WBC 8.7 k/uL (3.8-10.6)
[2024-04-12 17:26] LABS: ALT 15 U/L (4-49); AST 21 U/L (17-59); African American GFR (CKD) 40 (>60 ml/min/1.73 sqM); Alkaline Phosphatase 78 U/L (38-126); Anion Gap 6 mmol/L; Blood Urea Nitrogen 41 mg/dL (9-20); Calcium 8.1 mg/dL (8.4-10.2); Carbon Dioxide 23 mmol/L (22-30); Chloride 110 mmol/L (98-107); Glucose 115 mg/dL (74-99); INR 1.1 (<1.2); Non-African American GFR(CKD) 34 (>60 ml/min/1.73 sqM); Potassium 4.9 mmol/L (3.5-5.1); Prothrombin Time 11.7 sec (10.0-12.5); Sodium 139 mmol/L (137-145); Total Bilirubin 0.4 mg/dL (0.2-1.3); Total Protein 5.8 g/dL (6.3-8.2)
[2024-04-12 17:27] LABS: Partial Thromboplastin Time 28.6 sec (22.0-30.0)
[2024-04-12 17:32] LABS: NT-Pro-B-Type Natriuretic Pept 12300 pg/mL
--- NOTE | 2024-04-12 18:07 | XR ---
EXAMINATION TYPE: XR chest 2V DATE OF EXAM: 04/12/2024 5:35 PM CLINICAL INDICATION:Male, 63 years old with history of Weakness; [facility] COMPARISON: Chest radiographs from 04/05/2024 TECHNIQUE: XR chest 2V Frontal view of the chest. FINDINGS: Lungs/Pleura: There is no evidence of pleural effusion, focal consolidation, or pneumothorax. Pulmonary vascularity: Unremarkable. Heart/mediastinum: Cardiomediastinal silhouette is enlarged and stable. Musculoskeletal: No acute osseous pathology. IMPRESSION: Cardiomegaly and mild pulmonary vascular congestion. Correlate with BNP for congestive heart failure.
[2024-04-12] MEDS ORDERED: NALOXONE 0.4 MG/ML 1 ML VIAL IV PRN (18:42)
[2024-04-12] MEDS: FUROSEMIDE 10 MG/ML 4 ML VIAL IV STA (19:28)
[2024-04-12 20:19] LABS: Appearance,Urine Clear (Clear); Bilirubin,Urine Negative (Negative); Blood,Urine Negative (Negative); Color,Urine Colorless; Glucose,Urine (UA) Negative (Negative); Ketones,Urine Negative (Negative); Leukocyte Esterase,Urine Negative (Negative); Nitrite,Urine Negative (Negative); PH, Urine 5.5 (5.0-8.0); Protein,Urine Trace (Negative); Specific Gravity,Urine 1.013 (1.001-1.035); Urobilinogen,Urine <2.0 mg/dL (<2.0)
[2024-04-12 21:31] LABS: Glucose,Whole Blood 92 mg/dL (70-110)
[2024-04-12] MEDS ORDERED: IBUPROFEN 200 MG TAB PEG/G-TUBE PRN (21:36)
[2024-04-12] MEDS: SODIUM BICARBONATE TAB 650 MG TAB PEG/G-TUBE SCH (22:37)
[2024-04-12] MEDS: APIXABAN 2.5 MG TABLET PEG/G-TUBE SCH (22:37)
[2024-04-12] MEDS: FAMOTIDINE 20 MG TAB PEG/G-TUBE SCH (22:38)
[2024-04-12] MEDS: METOPROLOL TARTRATE 50 MG TAB PEG/G-TUBE SCH (22:38)
[2024-04-12] MEDS: AMOXIC-POT CLAV 875-125MG 1 EACH TAB PEG/G-TUBE SCH (22:38)
[2024-04-12] MEDS: ATORVASTATIN 40 MG TAB PEG/G-TUBE SCH (22:38)
[2024-04-13 06:00] LABS: Glucose,Whole Blood 112 mg/dL (70-110)
[2024-04-13] MEDS: INSULIN ASPART (NovoLOG) 100 UNIT/ML VIAL SQ SCH (06:54)
[2024-04-13] MEDS: ASPIRIN 81 MG PO SCH (08:52)
[2024-04-13] MEDS: CLOPIDOGREL 75 MG TAB PO SCH (08:52)
--- NOTE | 2024-04-13 08:54 | NM ---
EXAMINATION TYPE: NM pul vent and perfuse DATE OF EXAM: 04/13/2024 CLINICAL INDICATION: Male, 63 years old with history of Elevated DD; COMPARISON: 04/12/2024 TECHNIQUE: Utilizing inhalation of 68.8 mCi Tc 99m DTPA aerosol and intravenous injection of 5.18 mC i of Tc 99m MAA, ventilation and perfusion images are acquired post injection in multiple projections . FINDINGS: Normal radiotracer distribution is noted in the lungs. There is no evidence of mismatched defects. Pa tchy uptake on ventilation possibly due to radiotracer administration artifact and/or COPD. IMPRESSION: No evidence for pulmonary embolism
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
[2024-04-13] MEDS ORDERED: CLOPIDOGREL 75 MG TAB PEG/G-TUBE SCH (09:45)
--- NOTE | 2024-04-13 10:05 | US ---
EXAMINATION TYPE: US kidneys/renal and bladder DATE OF EXAM: 04/13/2024 COMPARISON: NONE CLINICAL INDICATION: Male, 63 years old with history of Acute on chronic kidney failure; lt renal rem riaz renal failure EXAM MEASUREMENTS: Right Kidney: 10.8 x 5.5 x 5.8 cm Left Kidney: Surgically absent Right Kidney: No hydronephrosis or masses seen Left Kidney: Surgically absent Bladder: anechoic Bilateral Jets seen: left only There is no evidence for hydronephrosis at this point in time. No nephrolithiasis is seen. No fernando s are identified. The urinary bladder is anechoic. Left ureteral jet is present. IMPRESSION: 1. No evidence for obstructive uropathy. 2. Surgically absent left kidney.
[2024-04-13] MEDS: LOSARTAN 25 MG TAB PEG/G-TUBE SCH (10:37)
[2024-04-13] MEDS: FOLIC ACID 1 MG TAB PEG/G-TUBE SCH (10:37)
[2024-04-13] MEDS: AMIODARONE 100 MG TAB PEG/G-TUBE SCH (10:37)
[2024-04-13 11:32] LABS: Glucose,Whole Blood 89 mg/dL (70-110)
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
[2024-04-13 16:25] LABS: Glucose,Whole Blood 82 mg/dL (70-110)
[2024-04-13] MEDS: AMPICILLIN-SULBACTAM 3 GM in SODIUM CHLORIDE 0.9% 100 ML IVPB SCH (16:56)
[2024-04-14 03:03] LABS: Glucose,Whole Blood 136 mg/dL (70-110)
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
[2024-04-14] MEDS: IPRATROPIUM-ALBUTEROL 3 ML NEB INHALATION PRN (07:42)
[2024-04-14] MEDS: CLOPIDOGREL 75 MG TAB PEG/G-TUBE SCH (08:56)
[2024-04-14] MEDS: FUROSEMIDE 10 MG/ML 4 ML VIAL IV SCH (08:57)
--- NOTE | 2024-04-14 09:47 | CA ---
Transthoracic Echo Report Name: Everett Juárez Age: 63 Gender: M : 1960 Exam Date: 04/13/2024 13:32 Exam Location: [facility] Ht (in): 70 Wt (lb): 225 Ordering Physician: Artur Schilling MD Attending/Referring Phys: [employer] Worker Carissa Kumari RDCS Procedure CPT: Indications: SHORTNESS OF BREATH Cardiac Hx: Technical Quality: Technically difficult study Contrast 1: Definity Total Dose (mL): 2 Contrast 2: Total Dose (mL): MEASUREMENTS (Male / Female) Normal Values 2D ECHO LV Diastolic Diameter PLAX 5.1 cm 4.2 - 5.9 / 3.9 - 5.3 cm LV Systolic Diameter PLAX 3.6 cm IVS Diastolic Thickness 1.6 cm 0.6 - 1.0 / 0.6 - 0.9 cm LVPW Diastolic Thickness 1.6 cm 0.6 - 1.0 / 0.6 - 0.9 cm LV Relative Wall Thickness 0.6 RV Internal Dim ED PLAX 3.6 cm LA Systolic Diameter LX 4.7 cm 3.0 - 4.0 / 2.7 - 3.8 cm LV Diastolic Volume MOD BP 101.2 cm??? 67 - 155 / 56 - 104 cm??? LV Systolic Volume MOD BP 58.3 cm??? 22 - 58 / 19 - 49 cm??? LV Ejection Fraction MOD BP 42.3 % >= 55 % LV Cardiac Index MOD BP 1750.0 cm???/min???m??? LV Diastolic Volume MOD 4C 131.4 cm??? LV Systolic Volume MOD 4C 82.1 cm??? LV Ejection Fraction MOD 4C 37.6 % LV Cardiac Index MOD 4C 2017.3 cm???/min???m??? LV Diastolic Length 4C 8.2 cm LV Systolic Length 4C 8.0 cm LV Diastolic Volume MOD 2C 90.1 cm??? LV Systolic Volume MOD 2C 71.7 cm??? LV Ejection Fraction MOD 2C 20.3 % LV Cardiac Index MOD 2C 748.7 cm???/min???m??? LV Diastolic Length 2C 7.6 cm LV Systolic Length 2C 7.8 cm LA Volume 91.1 cm??? 18 - 58 / 22 - 52 cm??? LA Volume Index 40.0 cm???/m??? 16 - 28 cm???/m??? M-MODE Aortic Root Diameter MM 3.5 cm AV Cusp Separation MM 1.9 cm DOPPLER AV Peak Velocity 94.0 cm/s AV Peak Gradient 3.5 mmHg MV Peak Velocity 142.1 cm/s MV Peak Gradient 8.1 mmHg MV Mean Velocity 55.9 cm/s MV Mean Gradient 1.7 mmHg MV Velocity Time Integral 34.1 cm MV Area PHT 4.5 cm??? MV Deceleration Time 159.3 ms TR Peak Velocity 345.9 cm/s TR Peak Gradient 47.8 mmHg Right Ventricular Systolic Press 62.8 mmHg FINDINGS Left Ventricle Left ventricular ejection fraction is estimated at 35-40 %. Moderately increased septal wall thickness. Moderately decreased left ventricular ejection fraction. Left ventricular cavity size normal. Right Ventricle Mild right ventricular dilatation. Severe pulmonary hypertension. Right ventricular systolic pressure estimated at 63 mm hg. Right Atrium Normal right atrial size. No right atrial thrombus or mass seen. Left Atrium Moderately increased left atrial diameter. Severely increased left atrial volume. Mildly increased left atrial area. Mitral Valve Moderate thickening/calcification of the posterior mitral valve leaflet. Mild mitral regurgitation. Aortic Valve Trileaflet aortic valve. No aortic valve stenosis or regurgitation. Tricuspid Valve Structurally normal tricuspid valve. Mild tricuspid regurgitation. Pulmonic Valve Pulmonic valve not well visualized. No pulmonic regurgitation. Pericardium No pericardial effusion. Aorta Normal size aortic root and proximal ascending aorta. CONCLUSIONS Left ventricular ejection fraction 35-40% Moderately increased left ventricular wall thickness RVSP 62 Moderate to severely dilated left atrium Mild mitral regurgitation Mild tricuspid regurgitation Previewed by: Dr. Hai Hays DO (Electronically Signed) Final Date: 14 April 2024 09:46
--- NOTE | 2024-04-14 10:19 | P.PN ---
Subjective Progress Note Date: 04/14/24 Everett Juárez, is a 63-year-old male who presented to [facility] emergency room with a chief complaint of worsening shortness of breath and generalized weakness, patient was recently admitted to [facility] with peripheral vascular disease right foot osteomyelitis and underwent stenting of the right SFA by Dr. Dillard, he has a previous history of right great toe amputation. He was evaluated in the emergency room vital examination on presentation revealed a temperature of 98.9 pulse 110 respiration 18 blood pressure 114/72 pulse ox 96% on room air Laboratory data reveals a white blood count of 8.7 hemoglobin 11.4 platelet count 283 sodium 139 potassium 4.9 chloride 110 CO2 23 BUN 41 creatinine 2.01 D- dimer was elevated at 2.10, troponin level was elevated at 0.043 Testing in the emergency room revealed chest x-ray done in the emergency room revealed cardiomegaly and mild pulmonary vascular congestion suggestive of congestive heart failure, VQ scan showed no evidence for pulmonary embolism, EKG revealed atrial fibrillation with moderate T wave abnormalities suggestive of lateral ischemia. Patient was admitted to medical floor for further evaluation and treatment Past medical history is significant for history of atrial fibrillation, history of peripheral arterial disease with previous history of right great toe amputation, history of COPD, history of diabetes mellitus type 2, history of hyperkalemia, history of chronic kidney disease. On review of systems patient is alert and oriented x 3 in no apparent distress, he is complaining of generalized weakness, complaining of shortness of breath, which is worse with activity, and complaining of right foot pain, otherwise he denies any complaints, there is no fever or chills no headache or dizziness no chest pain, no cough no nausea or vomiting no abdominal pain no diarrhea and no urinary symptoms On 04/14/2024 patient is alert and oriented 3.Patient remains on IV Unasyn and IV Lasix. 2-D echo completed showing an EF of 35-40%. Current vital signs temp 98.3, heart 81, respiratory rate 18, blood pressure 135/67 with a pulse ox of 100% on 3 L. Patient reports improvement with shortness of breath. Patient denies nausea vomiting or diarrhea. Patient denies any urinary burning or frequency Objective - Vital Signs Vital signs: Vital Signs Temp 97.4 F L 04/13/24 20:00 Pulse 101 H 04/14/24 07:54 Resp 18 04/14/24 04:00 BP 118/68 04/14/24 04:00 Pulse Ox 97 04/14/24 07:47 FiO2 Intake & Output 04/13/24 04/14/24 04/14/24 18:59 06:59 18:59 Output Total 500 525 Balance -500 -525 Weight 102.2 kg Output: Urine 500 525 Other: Voiding Method Urinal - Exam In general patient is alert and oriented x 3 in no distress HEENT head normocephalic and atraumatic Neck is supple no JVD no goiter no lymphadenopathy no carotid bruit Chest examination reveals a scattered crackles in both lung [place] no wheezing Cardiac exam reveals irregular heart sounds S1 and S2 no gallops no murmurs Abdomen is soft nontender no organomegaly with normal bowel sounds Extremity exam reveals no edema no cyanosis or clubbing, the right great toe is amputated with a large ulcer at the base of the amputated right great toe with purulent discharge Neurological examination reveals no gross focal deficits - Labs CBC & Chem 7: 04/12/24 17:01 04/12/24 17:01 Labs: Abnormal Lab Results - Last 24 Hours (Table) 04/14/24 Range/Units 03:02 POC Glucose (mg/dL) 136 H (70-110) mg/dL Microbiology - Last 24 Hours (Table) 04/13/24 15:20 Gram Stain - Preliminary Toe - Right First Assessment and Plan Plan: Worsening shortness of breath, multifactorial, possibly related to acute congestive heart failure, and underlying COPD Atrial fibrillation, with rapid ventricular response on presentation, heart rate was 110 Generalized weakness Large ulcer at the base of the right great toe with purulent discharge, patient was maintained on oral Augmentin as outpatient, infectious disease consultation requested Underlying history of peripheral arterial disease, with recent history of angioplasty and stent placement to the right lower extremity Underlying history of diabetes mellitus Underlying history of chronic obstructive pulmonary disease Underlying history of chronic kidney disease Underlying history of hyperkalemia Underlying history of chronic continued tobacco abuse At this time patient is admitted to telemetry floor Home medications reviewed and reordered Consultation for cardiology and pulmonary were requested in the emergency room Patient was started on IV Lasix in the emergency room For DVT prophylaxis, patient is maintained on Eliquis Will add infectious disease consultation in regard to base of right great toe ulcer Will follow closely
[2024-04-14] MEDS: ALBUTEROL NEBULIZED 2.5 MG/3 ML INHALATION PRN (11:34)
[2024-04-14 11:38] LABS: Glucose,Whole Blood 125 mg/dL (70-110)
--- NOTE | 2024-04-14 11:45 | CDI ---
Documentation Clarification Form Date: 04/14/2024 From: Joanie Mtz Phone: [phone] Admit Date: 04/12/2024 06:42:00 PM Patient Name: Everett Juárez Visit Number: [id number] Discharge Date: ATTENTION: The Clinical Documentation Specialists (CDI) and [facility] Coding Staff appreciate your assistance in clarifying documentation. Please respond to the clarification below the line at the bottom and electronically sign. The CDI & [facility] Coding staff will review the response and follow-up if needed. Please note: Queries are made part of the Legal Health Record. If you have any questions, please contact the author of this message via ITS. Dr. Artur Schilling: Cellulitis is documented in the ID consult 04/13. Additional clarification regarding the type of cellulitis is requested. History/risk factors: 63-year-old male with a history of AFIb, DM, HTN, PVD and right great toe amputation who presents with worsening SOB and generalized weakness Clinical Indicators: 04/13 ID consult, Assessment and Plan: "(1) Cellulitis of right foot. (2) Diabetic foot ulcer. Patient also have a 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" 04/12 Glucose: 115 04/12-04/14 Glucose POC: 92, 112, 89, 82, 136 04/13 Wound culture right great toe: Rare polymorphonuclear leukocytes Treatment: Augmentin 875-125mg per PEG BID 04/12-04/13 Unasyn 3grams IV [id number] start 04/13 Please clarify the etiology of the cellulitis, if known: [ x] Cellulitis is a diabetic skin complication [ ] Cellulitis is not a diabetic skin complication [ ] Other, please specify: [ ] Unable to determine MTDD
--- NOTE | 2024-04-14 12:28 | P.PN ---
Subjective Progress Note Date: 04/14/24 Principal diagnosis: Reason for follow-up is right foot wound and cellulitis Patient is a 63-year-old male with a past medical history significant for diabetes mellitus hypertension hyperlipidemia pneumonia CVA TIA COPD patient did have a right big toe amputation done by and was recently admitted to the hospital concerning for pain to the right foot and cold feeling patient has been diagnosed with PAD and is s/p peripheral intervention by interventional cardiology with angioplasty of SFA and right popliteal arteries however unsuccessful angioplasty of the right anterior tibial artery patient presented to hospital with weakness hypoxemia. On today's evaluation that is 04/14/2024,the patient denies any fever or any chills, patient is breathing comfortably on 3 L current oxygen, the patient denies chest pain shortness of breath and no significant cough, patient denies abdominal pain, no nausea vomiting or diarrhea and no worsening pain to the rig ht foot wound. No new lab has been repeated today cultures currently pending. Objective - Vital Signs Vital signs: Vital Signs Temp 98.3 F 04/14/24 08:00 Pulse 87 04/14/24 11:58 Resp 18 04/14/24 11:58 BP 137/73 04/14/24 11:58 Pulse Ox 97 04/14/24 11:58 FiO2 Intake & Output 04/13/24 04/14/24 04/14/24 18:59 06:59 18:59 Output Total 500 525 Balance -500 -525 Weight 102.2 kg Output: Urine 500 525 Other: Voiding Method Urinal - Exam GENERAL DESCRIPTION: Middle-age male lying in bed in no distress RESPIRATORY SYSTEM: Unlabored breathing , decreased breath sounds at bases HEART: S1 S2 regular rate and rhythm , ABDOMEN: Soft , no tenderness EXTREMITIES: Right foot wound is currently dressed - Labs CBC & Chem 7: 04/12/24 17:01 04/12/24 17:01 Labs: Abnormal Lab Results - Last 24 Hours (Table) 04/14/24 04/14/24 Range/Units 03:02 11:37 POC Glucose (mg/dL) 136 H 125 H (70-110) mg/dL Microbiology - Last 24 Hours (Table) 04/13/24 15:20 Gram Stain - Preliminary Toe - Right First Assessment and Plan (1) Cellulitis of right foot Current Visit: No Status: Acute Code(s): L03.115 - CELLULITIS OF RIGHT LOWER LIMB SNOMED Code(s): 09121094536697875 (2) Diabetic foot ulcer Current Visit: No Status: Acute Code(s): E11.621 - TYPE 2 DIABETES MELLITUS WITH FOOT ULCER; L97.509 - NON-PRESSURE CHRONIC ULCER OTH PRT UNSP FOOT W UNSP SEVERITY SNOMED Code(s): 733527789 Plan: 1patient presenting to the hospital mostly with generalized weakness low O2 sats possibly underlying cardiac etiology for the patient being managed by cardiology, patient also have a 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 2patient to continue with Unasyn while waiting for the repeat culture to fin [email or web address] Dictation was produced using [employer] dictation software. please excuse any grammatical, word or spelling errors. Time with Patient: Less than 30
--- NOTE | 2024-04-14 13:46 | P.PN ---
Subjective HISTORY OF PRESENT ILLNESS: This is a 63-year-old male with a past medical history significant for paroxysmal atrial fibrillation, peripheral arterial disease, hypertension, hyperlipidemia, and diabetes. Patient follows in the office with Dr. Gonzalez. We have been asked to see the patient in consultation for elevated troponin. Patient examined at the bedside. The patient presented to the hospital with a chief complaint of shortness of breath. Patient states he has been feeling short of breath for the past couple weeks. He states that he checked his oxygen saturation at home and it was found to be in the high 80s. The patient denies having any chest pain or pressure. Patient was found to have elevated D-dimer of 2.10. He underwent VQ scan which was negative for pulmonary embolism. Vital signs are stable. It is noted that the patient underwent balloon angioplasty and stenting of right SFA and right popliteal. DIAGNOSTICS: - EKG reveals atrial fibrillation with controlled ventricular rate. - Chest xray cardiomegaly and mild pulmonary vascular congestion. - Laboratory data: WBC 8.7. Hemoglobin 11.4. Platelet count 283. D-dimer 2.10. Sodium 139. Potassium 4.9. BUN 41. Creatinine 2.01. Troponin 0.036. 0.038. 0.043. - Current home cardiac medications include amiodarone 100 mg daily, Eliquis 2.5 mg twice a day, Plavix 75 mg daily, losartan 25 mg daily, rosuvastatin 20 mg daily, metoprolol tartrate 50 mg twice a day. - Most recent echocardiogram obtained in June 2021 revealed ejection fraction 55 to 60%, severe pulmonary hypertension 04/14/2024 Patient examined this morning. Patient currently denies chest pain or pressure. He reports improvement in his shortness of breath. Echocardiogram completed re vealing ejection fraction 35 to 40%, mild MR, mild TR. PHYSICAL EXAM: VITAL SIGNS: Reviewed. GENERAL: Well-developed in no acute distress. HEENT: Head is normocephalic. Pupils are equal, round. Sclerae anicteric. Mucous membranes of the mouth are moist. Neck supple. No JVD or thyromegaly LUNGS: Respirations even and unlabored. Lungs essentially clear to auscultation bilaterally. HEART: Irregular rate and rhythm. S1 and S2 heard. ABDOMEN: Soft. Nondistended. Nontender. EXTREMITIES: Normal range of motion. No clubbing or cyanosis. Peripheral pulses intact. No lower extremity edema NEUROLOGIC: Awake and alert. Oriented x 3. ASSESSMENT: Shortness of breath, etiology unclear, VQ scan negative for PE, not volume overloaded on clinical examination Acute hypoxic respiratory failure requiring supplemental oxygen Abnormal troponins, flat, type II [place] secondary to oxygen supply and demand mismatch Recent balloon angioplasty and stenting of right SFA and right popliteal artery, 04/08/2024 Severe pulmonary hypertension Peripheral arterial disease Paroxysmal atrial fibrillation History of CVA Hypertension Hyperlipidemia Diabetes History of PEG tube placement New onset cardiomyopathy, ischemic versus nonischemic PLAN: Continue current cardiac medications Continue anticoagulation with Eliquis Continue dual antiplatelet therapy due to recent stenting with aspirin and Plavix Patient does not appear to be in acute CHF/volume overloaded on examination. Discontinue IV lasix. Patient with new onset cardiomyopathy. Will treat patient medically due to chronic kidney disease and patient w/o complaints of chest pain or pressure. Further recommendations pending patient course Nurse practitioner note has been reviewed by physician. Signing provider agrees with the documented findings, assessment, and plan of care documented by NANOTECHNOLOGY ENGINEERING TECHNOLOGIST as a scribe. Objective - Vital Signs Vital signs: Vital Signs Temp 98.3 F 04/14/24 08:00 Pulse 87 04/14/24 13:26 Resp 18 04/14/24 13:26 BP 137/73 04/14/24 11:58 Pulse Ox 97 04/14/24 11:58 FiO2 Intake & Output 04/13/24 04/14/24 04/14/24 18:59 06:59 18:59 Output Total 500 525 Balance -500 -525 Weight 102.2 kg Output: Urine 500 525 Other: Voiding Method Urinal - Labs CBC & Chem 7: 04/12/24 17:01 04/12/24 17:01 Labs: Abnormal Lab Results - Last 24 Hours (Table) 04/14/24 04/14/24 Range/Units 03:02 11:37 POC Glucose (mg/dL) 136 H 125 H (70-110) mg/dL Microbiology - Last 24 Hours (Table) 04/13/24 15:20 Gram Stain - Preliminary Toe - Right First
--- NOTE | 2024-04-14 15:08 | P.PN ---
Subjective Progress Note Date: 04/14/24 This is a 63-year-old white male with history of multiple medical problems including coronary artery disease, chronic atrial fibrillation, peripheral vessel occlusive disease, severe pulmonary hypertension, chronic obstructive pulmonary disease, patient normally sees Dr. Dillard on outpatient basis. Patient was never seen by a cut press operator. Admitted this time with few days history of increased shortness of breath, and according to the his O2 saturation was down in the 60s. Patient was brought into the ER, chest x-ray showed evidence of pulmonary edema, VQ scan negative for pulmonary embolism, patient was admitted and this consult was initiated. Patient is not a great historian, most of the information was obtained from his , apparently the patient had history of CVA in the past, and he had a previous PEG tube placement Labs on admission showed relatively normal CBC, no leukocytosis, D-dimer was a bit elevated at 2.10 and renal profile was abnormal with BUN of 43 and creatinine 2. 01 however BNP level was 12,300 and troponin was 0.043. Since admission, the patient received 1 dose of Lasix, and he is at least 1.5 L negative fluid balance The patient is seen today April 14, 2024 in follow-up on the selective care unit. He is currently sitting up at the bedside. Awake and alert in no acute distress. Breathing a bit easier today compared to yesterday. Currently maintaining good O2 saturations in the upper 90s on 3 L/min per nasal cannula. He is afebrile. Hemodynamically stable. Echocardiogram reveals impaired left ventricular systolic function with an ejection fraction of 35 to 40%. Severe pulmonary hypertension. Moderate to severely dilated left atrium. Right first toe culture is pending. Currently on Unasyn. Glucose 125. Being nourished with Glucerna at 51 MLS per hour via his PEG tube. Anticoagulated with Eliquis. Remains on diuretics. Making adequate urine. Objective - Vital Signs Vital signs: Vital Signs Temp 98.3 F 04/14/24 08:00 Pulse 87 04/14/24 13:26 Resp 18 04/14/24 13:26 BP 137/73 04/14/24 11:58 Pulse Ox 97 04/14/24 11:58 FiO2 Intake & Output 04/13/24 04/14/24 04/14/24 18:59 06:59 18:59 Output Total 500 525 Balance -500 -525 Weight 102.2 kg Output: Urine 500 525 Other: Voiding Method Urinal - Exam GENERAL EXAM: Alert, 63-year-old male, on 3 L nasal cannula, comfortable in no apparent distress. HEAD: Normocephalic. EYES: Normal reaction of pupils, equal size. NOSE: Clear with pink turbinates. THROAT: No erythema or exudates. NECK: No masses, no JVD. CHEST: No chest wall deformity. LUNGS: Equal air entry with no crackles, wheeze, rhonchi or dullness. CVS: S1 and S2 normal with no audible murmur, regular rhythm. ABDOMEN: No hepatosplenomegaly, normal bowel sounds, no guarding or rigidity. SPINE: No scoliosis or deformity SKIN: Evidence of purulent drainage noted at the site of a previous amputation of the big toe and second toe on the right foot CENTRAL NERVOUS SYSTEM: No focal deficits, tone is normal in all 4 extremities. EXTREMITIES: Right foot drainage from previous amputation site. There is no peripheral edema. Peripheral pulses are intact. - Labs CBC & Chem 7: 04/12/24 17:01 04/12/24 17:01 Labs: Abnormal Lab Results - Last 24 Hours (Table) 04/14/24 04/14/24 Range/Units 03:02 11:37 POC Glucose (mg/dL) 136 H 125 H (70-110) mg/dL Microbiology - Last 24 Hours (Table) 04/13/24 15:20 Gram Stain - Preliminary Toe - Right First Assessment and Plan Assessment: Acute hypoxic respiratory failure secondary to an acute exacerbation of systolic congestive heart failure Acute cellulitis of right foot with previous amputation of big toe and second toe History of peripheral vessel occlusive disease and previous stenting of right SFA and right popliteal artery Severe pulmonary hypertension Paroxysmal atrial fibrillation, anticoagulated with Eliquis History of CVA with residual dysphagia requiring PEG tube placement Type 2 diabetes Chronic kidney disease, baseline creatinine is in the range of 2.0 since 2019 Chronic and ongoing tobacco dependence Plan: The patient was seen and evaluated Echocardiogram, labs and medications reviewed Continued on diuretics Breathing easier today Titrate down the FiO2 as tolerated Being nourished with Glucerna via PEG tube Anticoagulated with Eliquis Remains on antibiotics in the form of Unasyn We will continue to follow I have personally seen and examined the patient, performed the documentation and the assessment and plan as written. Number of minutes spent on the visit: 10.
[2024-04-14 16:42] LABS: Glucose,Whole Blood 132 mg/dL (70-110)
[2024-04-15 00:21] LABS: Glucose,Whole Blood 132 mg/dL (70-110)
[2024-04-15 05:54] LABS: Glucose,Whole Blood 132 mg/dL (70-110)
[2024-04-15 07:09] LABS: Basophils % (A) 0 %; Eosinophils # (A) 0.7 k/uL (0-0.7); Eosinophils % (A) 8 %; HCT 38.1 % (39.0-53.0); HGB 11.2 gm/dL (13.0-17.5); Hypochromasia Moderate; Lymphocytes # (A) 0.9 k/uL (1.0-4.8); Lymphocytes % (A) 11 %; MCH 30.8 pg (25.0-35.0); MCHC 29.6 g/dL (31.0-37.0); MCV 104.3 fL (80.0-100.0); Macrocytosis Moderate; Mean Platelet Volume 7.8; Monocytes # (A) 0.7 k/uL (0-1.0); Monocytes % (A) 8 %; Neutrophils # (A) 5.7 k/uL (1.3-7.7); Neutrophils % (A) 68 %; Platelet Count 321 k/uL (150-450); RBC 3.65 m/uL (4.30-5.90); RDW 14.8 % (11.5-15.5); WBC 8.4 k/uL (3.8-10.6)
[2024-04-15 07:33] LABS: ALT 12 U/L (4-49); AST 19 U/L (17-59); African American GFR (CKD) 40 (>60 ml/min/1.73 sqM); Albumin 3.3 g/dL (3.5-5.0); Alkaline Phosphatase 76 U/L (38-126); Anion Gap 5 mmol/L; Blood Urea Nitrogen 45 mg/dL (9-20); Calcium 8.5 mg/dL (8.4-10.2); Carbon Dioxide 29 mmol/L (22-30); Chloride 109 mmol/L (98-107); Glucose 126 mg/dL (74-99); Non-African American GFR(CKD) 35 (>60 ml/min/1.73 sqM); Potassium 4.9 mmol/L (3.5-5.1); Sodium 143 mmol/L (137-145); Total Bilirubin 0.4 mg/dL (0.2-1.3); Total Protein 6.2 g/dL (6.3-8.2)
--- NOTE | 2024-04-15 08:55 | P.PN ---
Subjective Progress Note Date: 04/15/24 Everett Juárez, is a 63-year-old male who presented to [facility] emergency room with a chief complaint of worsening shortness of breath and generalized weakness, patient was recently admitted to [facility] with peripheral vascular disease right foot osteomyelitis and underwent stenting of the right SFA by Dr. Dillard, he has a previous history of right great toe amputation. He was evaluated in the emergency room vital examination on presentation revealed a temperature of 98.9 pulse 110 respiration 18 blood pressure 114/72 pulse ox 96% on room air Laboratory data reveals a white blood count of 8.7 hemoglobin 11.4 platelet count 283 sodium 139 potassium 4.9 chloride 110 CO2 23 BUN 41 creatinine 2.01 D- dimer was elevated at 2.10, troponin level was elevated at 0.043 Testing in the emergency room revealed chest x-ray done in the emergency room revealed cardiomegaly and mild pulmonary vascular congestion suggestive of congestive heart failure, VQ scan showed no evidence for pulmonary embolism, EKG revealed atrial fibrillation with moderate T wave abnormalities suggestive of lateral ischemia. Patient was admitted to medical floor for further evaluation and treatment Past medical history is significant for history of atrial fibrillation, history of peripheral arterial disease with previous history of right great toe amputation, history of COPD, history of diabetes mellitus type 2, history of hyperkalemia, history of chronic kidney disease. On review of systems patient is alert and oriented x 3 in no apparent distress, he is complaining of generalized weakness, complaining of shortness of breath, which is worse with activity, and complaining of right foot pain, otherwise he denies any complaints, there is no fever or chills no headache or dizziness no chest pain, no cough no nausea or vomiting no abdominal pain no diarrhea and no urinary symptoms On 04/14/2024 patient is alert and oriented 3.Patient remains on IV Unasyn and IV Lasix. 2-D echo completed showing an EF of 35-40%. Current vital signs temp 98.3, heart 81, respiratory rate 18, blood pressure 135/67 with a pulse ox of 100% on 3 L. Patient reports improvement with shortness of breath. Patient denies nausea vomiting or diarrhea. Patient denies any urinary burning or frequency On 04/15/2024 Patient is alert and oriented 3. Patient remains on IV Unasyn. Patient has been transitioned to by mouth Lasix.Current vital signs temp 97.1, heart rate 98, respiratory rate 18, blood pressure 121/79 with pulse ox 96% on 3 L. Patient denies chest pain or shortness breath. Patient denies nausea vomiting or diarrhea. Patient denies any urinary burning or frequency Objective - Vital Signs Vital signs: Vital Signs Temp 97.1 F L 04/14/24 20:00 Pulse 98 04/15/24 08:49 Resp 16 04/15/24 04:00 BP 121/79 04/15/24 04:00 Pulse Ox 96 04/15/24 04:00 FiO2 Intake & Output 04/14/24 04/15/24 04/15/24 18:59 06:59 18:59 Output Total 750 Balance -750 Weight 98.2 kg Output: Urine 750 Other: Voiding Method Urinal # Voids 2 # Bowel Movements 1 - Exam In general patient is alert and oriented x 3 in no distress HEENT head normocephalic and atraumatic Neck is supple no JVD no goiter no lymphadenopathy no carotid bruit Chest examination reveals a scattered crackles in both lung [place] no wheezing Cardiac exam reveals irregular heart sounds S1 and S2 no gallops no murmurs Abdomen is soft nontender no organomegaly with normal bowel sounds Extremity exam reveals no edema no cyanosis or clubbing, the right great toe is amputated with a large ulcer at the base of the amputated right great toe with purulent discharge Neurological examination reveals no gross focal deficits - Labs CBC & Chem 7: 04/15/24 06:42 04/15/24 06:42 Labs: Abnormal Lab Results - Last 24 Hours (Table) 04/14/24 04/14/24 04/15/24 Range/Units 11:37 16:41 00:20 RBC (4.30-5.90) m/uL Hgb (13.0-17.5) gm/dL Hct (39.0-53.0) % MCV (80.0-100.0) fL MCHC (31.0-37.0) g/dL Lymphocytes # (1.0-4.8) k/uL Chloride (98-107) mmol/L BUN (9-20) mg/dL Creatinine (0.66-1.25) mg/dL Glucose (74-99) mg/dL POC Glucose (mg/dL) 125 H 132 H 132 H (70-110) mg/dL Total Protein (6.3-8.2) g/dL Albumin (3.5-5.0) g/dL 04/15/24 04/15/24 04/15/24 Range/Units 05:53 06:42 06:42 RBC 3.65 L (4.30-5.90) m/uL Hgb 11.2 L (13.0-17.5) gm/dL Hct 38.1 L (39.0-53.0) % MCV 104.3 H (80.0-100.0) fL MCHC 29.6 L (31.0-37.0) g/dL Lymphocytes # 0.9 L (1.0-4.8) k/uL Chloride 109 H (98-107) mmol/L BUN 45 H (9-20) mg/dL Creatinine 1.99 H (0.66-1.25) mg/dL Glucose 126 H (74-99) mg/dL POC Glucose (mg/dL) 132 H (70-110) mg/dL Total Protein 6.2 L (6.3-8.2) g/dL Albumin 3.3 L (3.5-5.0) g/dL Microbiology - Last 24 Hours (Table) 04/13/24 15:20 Gram Stain - Preliminary Toe - Right First Wound Culture - Preliminary Assessment and Plan Plan: Worsening shortness of breath, multifactorial, possibly related to acute congestive heart failure, and underlying COPD Atrial fibrillation, with rapid ventricular response on presentation, heart rate was 110 New onset cardiomyopathy. Generalized weakness Large ulcer at the base of the right great toe with purulent discharge, patient was maintained on oral Augmentin as outpatient, infectious disease consultation requested Underlying history of peripheral arterial disease, with recent history of angioplasty and stent placement to the right lower extremity Underlying history of diabetes mellitus Underlying history of chronic obstructive pulmonary disease Underlying history of chronic kidney disease Underlying history of hyperkalemia Underlying history of chronic continued tobacco abuse At this time patient is admitted to telemetry floor Home medications reviewed and reordered Consultation for cardiology and pulmonary were requested in the emergency room For DVT prophylaxis, patient is maintained on Eliquis Will add infectious disease consultation in regard to base of right great toe ulcer Will follow closely
[2024-04-15] MEDS: FUROSEMIDE 20 MG TAB PO SCH (09:02)
[2024-04-15 12:00] LABS: Glucose,Whole Blood 121 mg/dL (70-110)
--- NOTE | 2024-04-15 13:28 | P.PN ---
Subjective HISTORY OF PRESENT ILLNESS: This is a 63-year-old male with a past medical history significant for paroxysmal atrial fibrillation, peripheral arterial disease, hypertension, hyperlipidemia, and diabetes. Patient follows in the office with Dr. Gonzalez. We have been asked to see the patient in consultation for elevated troponin. Patient examined at the bedside. The patient presented to the hospital with a chief complaint of shortness of breath. Patient states he has been feeling short of breath for the past couple weeks. He states that he checked his oxygen saturation at home and it was found to be in the high 80s. The patient denies having any chest pain or pressure. Patient was found to have elevated D-dimer of 2.10. He underwent VQ scan which was negative for pulmonary embolism. Vital signs are stable. It is noted that the patient underwent balloon angioplasty and stenting of right SFA and right popliteal. DIAGNOSTICS: - EKG reveals atrial fibrillation with controlled ventricular rate. - Chest xray cardiomegaly and mild pulmonary vascular congestion. - Laboratory data: WBC 8.7. Hemoglobin 11.4. Platelet count 283. D-dimer 2.10. Sodium 139. Potassium 4.9. BUN 41. Creatinine 2.01. Troponin 0.036. 0.038. 0.043. - Current home cardiac medications include amiodarone 100 mg daily, Eliquis 2.5 mg twice a day, Plavix 75 mg daily, losartan 25 mg daily, rosuvastatin 20 mg daily, metoprolol tartrate 50 mg twice a day. - Most recent echocardiogram obtained in June 2021 revealed ejection fraction 55 to 60%, severe pulmonary hypertension 04/14/2024 Patient examined this morning. Patient currently denies chest pain or pressure. He reports improvement in his shortness of breath. Echocardiogram completed re vealing ejection fraction 35 to 40%, mild MR, mild TR. 04/15/2024 Patient examined this morning at bedside. Patient currently denies chest pain or pressure. He denies shortness of breath. Vital signs are stable. PHYSICAL EXAM: VITAL SIGNS: Reviewed. GENERAL: Well-developed in no acute distress. HEENT: Head is normocephalic. Pupils are equal, round. Sclerae anicteric. Mucous membranes of the mouth are moist. Neck supple. No JVD or thyromegaly LUNGS: Respirations even and unlabored. Lungs essentially clear to auscultation bilaterally. HEART: Irregular rate and rhythm. S1 and S2 heard. ABDOMEN: Soft. Nondistended. Nontender. EXTREMITIES: Normal range of motion. No clubbing or cyanosis. Peripheral pulses intact. No lower extremity edema NEUROLOGIC: Awake and alert. Oriented x 3. ASSESSMENT: Shortness of breath, etiology unclear, VQ scan negative for PE, not volume overloaded on clinical examination Acute hypoxic respiratory failure requiring supplemental oxygen Abnormal troponins, flat, type II [place] secondary to oxygen supply and demand mismatch Recent balloon angioplasty and stenting of right SFA and right popliteal artery, 04/08/2024 Severe pulmonary hypertension Peripheral arterial disease Paroxysmal atrial fibrillation History of CVA Hypertension Hyperlipidemia Diabetes History of PEG tube placement New onset cardiomyopathy, ischemic versus nonischemic PLAN: Continue current cardiac medications Continue anticoagulation with Eliquis Continue dual antiplatelet therapy due to recent stenting with aspirin and Plavix. May discontinue aspirin after 1 month. Patient with new onset cardiomyopathy. Will treat patient medically due to chronic kidney disease and patient w/o complaints of chest pain or pressure. We will follow on an as-needed basis. Please call with questions or concerns. Nurse practitioner note has been reviewed by physician. Signing provider agrees with the documented findings, assessment, and plan of care documented by SLICING MACHINE FEEDER as a scribe. Objective - Vital Signs Vital signs: Vital Signs Temp 97.8 F 04/15/24 08:00 Pulse 95 04/15/24 12:16 Resp 16 04/15/24 08:00 BP 133/73 04/15/24 08:00 Pulse Ox 99 04/15/24 08:00 FiO2 Intake & Output 04/14/24 04/15/24 04/15/24 18:59 06:59 18:59 Output Total 750 Balance -750 Weight 98.2 kg Output: Urine 750 Other: Voiding Method Urinal # Voids 2 600 # Bowel Movements 1 - Labs CBC & Chem 7: 04/15/24 06:42 04/15/24 06:42 Labs: Abnormal Lab Results - Last 24 Hours (Table) 04/14/24 04/15/24 04/15/24 Range/Units 16:41 00:20 05:53 RBC (4.30-5.90) m/uL Hgb (13.0-17.5) gm/dL Hct (39.0-53.0) % MCV (80.0-100.0) fL MCHC (31.0-37.0) g/dL Lymphocytes # (1.0-4.8) k/uL Chloride (98-107) mmol/L BUN (9-20) mg/dL Creatinine (0.66-1.25) mg/dL Glucose (74-99) mg/dL POC Glucose (mg/dL) 132 H 132 H 132 H (70-110) mg/dL Total Protein (6.3-8.2) g/dL Albumin (3.5-5.0) g/dL 04/15/24 04/15/24 04/15/24 Range/Units 06:42 06:42 11:59 RBC 3.65 L (4.30-5.90) m/uL Hgb 11.2 L (13.0-17.5) gm/dL Hct 38.1 L (39.0-53.0) % MCV 104.3 H (80.0-100.0) fL MCHC 29.6 L (31.0-37.0) g/dL Lymphocytes # 0.9 L (1.0-4.8) k/uL Chloride 109 H (98-107) mmol/L BUN 45 H (9-20) mg/dL Creatinine 1.99 H (0.66-1.25) mg/dL Glucose 126 H (74-99) mg/dL POC Glucose (mg/dL) 121 H (70-110) mg/dL Total Protein 6.2 L (6.3-8.2) g/dL Albumin 3.3 L (3.5-5.0) g/dL Microbiology - Last 24 Hours (Table) 04/13/24 15:20 Gram Stain - Preliminary Toe - Right First Wound Culture - Preliminary
--- NOTE | 2024-04-15 15:19 | P.PN ---
Subjective Progress Note Date: 04/15/24 This is a 63-year-old white male with history of multiple medical problems including coronary artery disease, chronic atrial fibrillation, peripheral vessel occlusive disease, severe pulmonary hypertension, chronic obstructive pulmonary disease, patient normally sees Dr. Dillard on outpatient basis. 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 Admitted this time with few days history of increased shortness of breath, and according to the his O2 saturation was down in the 60s. Patient was brought into the ER, chest x-ray showed evidence of pulmonary edema, VQ scan negative for pulmonary embolism, patient was admitted and this consult was initiated. Patient is not a great historian, most of the information was obtained from his , apparently the patient had history of CVA in the past, and he had a previous PEG tube placement Labs on admission showed relatively normal CBC, no leukocytosis, D-dimer was a bit elevated at 2.10 and renal profile was abnormal with BUN of 43 and creatinine 2. 01 however BNP level was 12,300 and troponin was 0.043. Since admission, the patient received 1 dose of Lasix, and he is at least 1.5 L negative fluid balance The patient is seen today April 14, 2024 in follow-up on the selective care unit. He is currently sitting up at the bedside. Awake and alert in no acute distress. Breathing a bit easier today compared to yesterday. Currently maintaining good O2 saturations in the upper 90s on 3 L/min per nasal cannula. He is afebrile. Hemodynamically stable. Echocardiogram reveals impaired left ventricular systolic function with an ejection fraction of 35 to 40%. Severe pulmonary hypertension. Moderate to severely dilated left atrium. Right first toe culture is pending. Currently on Unasyn. Glucose 125. Being nourished with Glucerna at 51 MLS per hour via his PEG tube. Anticoagulated with Eliquis. Remains on diuretics. Making adequate urine. The patient is seen today April 15, 2024 in follow-up on the selective care unit. He is awake and alert in no acute distress. Maintaining O2 saturations in the 90s on 3 L/min per nasal cannula. Hemodynamically stable. White count 8.4. Hemoglobin 11.2. Platelets 321. Sodium 143. Potassium 4.9. Bicarb 29. BUN 45. Creatinine 1.99. Glucose 126. He is continued on Unasyn. Anticoagulated with Eliquis. Remains on bronchodilators. Remains on oral diuretics. Continued on Glucerna via his PEG tube. Barium swallow is pending so the patient can continue on tube feedings in the outpatient setting Objective - Vital Signs Vital signs: Vital Signs Temp 97.8 F 04/15/24 08:00 Pulse 99 04/15/24 13:39 Resp 16 04/15/24 13:39 BP 127/75 04/15/24 12:00 Pulse Ox 92 L 04/15/24 12:00 FiO2 Intake & Output 04/14/24 04/15/24 04/15/24 18:59 06:59 18:59 Output Total 750 Balance -750 Weight 98.2 kg Output: Urine 750 Other: Voiding Method Urinal # Voids 2 600 # Bowel Movements 1 - Exam GENERAL EXAM: Alert, 63-year-old male, resting in bed, on 3 L nasal cannula, in no apparent distress. HEAD: Normocephalic. EYES: Normal reaction of pupils, equal size. NOSE: Clear with pink turbinates. THROAT: No erythema or exudates. NECK: No masses, no JVD. CHEST: No chest wall deformity. LUNGS: Equal air entry with no crackles, wheeze, rhonchi or dullness. CVS: S1 and S2 normal with no audible murmur, regular rhythm. ABDOMEN: PEG tube exit site clean and dry. No hepatosplenomegaly, normal bowel sounds, no guarding or rigidity. SPINE: No scoliosis or deformity SKIN: Evidence of purulent drainage noted at the site of a previous amputation of the big toe and second toe on the right foot CENTRAL NERVOUS SYSTEM: No focal deficits, tone is normal in all 4 extremities. EXTREMITIES: Right foot drainage from previous amputation site. There is no peripheral edema. Peripheral pulses are intact. - Labs CBC & Chem 7: 04/15/24 06:42 04/15/24 06:42 Labs: Abnormal Lab Results - Last 24 Hours (Table) 04/14/24 04/15/24 04/15/24 Range/Units 16:41 00:20 05:53 RBC (4.30-5.90) m/uL Hgb (13.0-17.5) gm/dL Hct (39.0-53.0) % MCV (80.0-100.0) fL MCHC (31.0-37.0) g/dL Lymphocytes # (1.0-4.8) k/uL Chloride (98-107) mmol/L BUN (9-20) mg/dL Creatinine (0.66-1.25) mg/dL Glucose (74-99) mg/dL POC Glucose (mg/dL) 132 H 132 H 132 H (70-110) mg/dL Total Protein (6.3-8.2) g/dL Albumin (3.5-5.0) g/dL 04/15/24 04/15/24 04/15/24 Range/Units 06:42 06:42 11:59 RBC 3.65 L (4.30-5.90) m/uL Hgb 11.2 L (13.0-17.5) gm/dL Hct 38.1 L (39.0-53.0) % MCV 104.3 H (80.0-100.0) fL MCHC 29.6 L (31.0-37.0) g/dL Lymphocytes # 0.9 L (1.0-4.8) k/uL Chloride 109 H (98-107) mmol/L BUN 45 H (9-20) mg/dL Creatinine 1.99 H (0.66-1.25) mg/dL Glucose 126 H (74-99) mg/dL POC Glucose (mg/dL) 121 H (70-110) mg/dL Total Protein 6.2 L (6.3-8.2) g/dL Albumin 3.3 L (3.5-5.0) g/dL Microbiology - Last 24 Hours (Table) 04/13/24 15:20 Gram Stain - Preliminary Toe - Right First Wound Culture - Preliminary Assessment and Plan Assessment: Acute hypoxic respiratory failure secondary to an acute exacerbation of systolic congestive heart failure Acute cellulitis of right foot with previous amputation of big toe and second toe History of peripheral vessel occlusive disease and previous stenting of right SFA and right popliteal artery Severe pulmonary hypertension Paroxysmal atrial fibrillation, anticoagulated with Eliquis History of CVA with residual dysphagia requiring PEG tube placement Type 2 diabetes Chronic kidney disease, baseline creatinine is in the range of 2.0 since 2019 Chronic and ongoing tobacco dependence Plan: The patient was seen and evaluated Labs and medications reviewed Continue the current treatment plan Titrate down the FiO2 as tolerated Being nourished with Glucerna via PEG tube Barium swallow is pending so the patient can receive tube feedings in the outpatient setting Plan will be for home with home care at discharge I have personally seen and examined the patient, performed the documentation and the assessment and plan as written. Number of minutes spent on the visit: 10.
--- NOTE | 2024-04-15 15:55 | FL ---
EXAMINATION TYPE: FL barium swallow w video DATE OF EXAM: 04/15/2024 COMPARISON: NONE HISTORY: TECHNIQUE: Fluoroscopy. FINDINGS: Fluoroscopic guidance was provided for the procedure performed in conjunction with the [facility] pathology department. Please see complete report forthcoming from the Speech Pathology departmen t. Various consistencies from thin liquid to solids were administered. Fluoroscopy time 3 minutes 6 seconds. Number of images: 0. There was some transient penetration through multiple consistencies from thin liquids to solids. Larg e amount of pooling is at the proximal esophageal sphincter. No epiglottic inversion was evident. The re is some pooling in the vallecula. Multiple sequential attempts for swallowing were required for cl earing the oral and hypopharynx. No aspiration was evident. IMPRESSION: 1. Multiple consistency penetration. No epiglottic inversion was evident. There was poor oral transit to the proximal esophagus.
[2024-04-15 17:01] LABS: Glucose,Whole Blood 129 mg/dL (70-110)
[2024-04-15 23:25] LABS: Glucose,Whole Blood 136 mg/dL (70-110)
[2024-04-15] MEDS: INSULIN ASPART (NovoLOG) 100 UNIT/ML VIAL SQ SCH (23:25)
[2024-04-16 05:54] LABS: Glucose,Whole Blood 110 mg/dL (70-110)
[2024-04-16 08:32] LABS: ALT 11 U/L (4-49); AST 18 U/L (17-59); African American GFR (CKD) 42 (>60 ml/min/1.73 sqM); Albumin 3.2 g/dL (3.5-5.0); Alkaline Phosphatase 83 U/L (38-126); Anion Gap 6 mmol/L; Blood Urea Nitrogen 48 mg/dL (9-20); Calcium 8.5 mg/dL (8.4-10.2); Carbon Dioxide 29 mmol/L (22-30); Chloride 110 mmol/L (98-107); Glucose 129 mg/dL (74-99); Non-African American GFR(CKD) 36 (>60 ml/min/1.73 sqM); Potassium 5.2 mmol/L (3.5-5.1); Sodium 145 mmol/L (137-145); Total Bilirubin 0.4 mg/dL (0.2-1.3)
[2024-04-16 08:36] LABS: Basophils # (A) 0.1 k/uL (0-0.2); Basophils % (A) 1 %; Eosinophils # (A) 0.7 k/uL (0-0.7); Eosinophils % (A) 8 %; HGB 10.5 gm/dL (13.0-17.5); Hypochromasia Marked; Lymphocytes # (A) 0.9 k/uL (1.0-4.8); Lymphocytes % (A) 11 %; MCH 31.3 pg (25.0-35.0); MCV 104.3 fL (80.0-100.0); Macrocytosis Moderate; Mean Platelet Volume 8.4; Monocytes # (A) 0.6 k/uL (0-1.0); Monocytes % (A) 7 %; Neutrophils % (A) 70 %; Platelet Count 328 k/uL (150-450); RBC 3.36 m/uL (4.30-5.90); RDW 14.9 % (11.5-15.5); WBC 8.5 k/uL (3.8-10.6)
[2024-04-16 11:40] LABS: Glucose,Whole Blood 154 mg/dL (70-110)
--- NOTE | 2024-04-16 14:59 | P.PN ---
Subjective Progress Note Date: 04/16/24 Principal diagnosis: Acute exacerbation of systolic congestive heart failure and acute cellulitis of right foot This is a 63-year-old white male with history of multiple medical problems including coronary artery disease, chronic atrial fibrillation, peripheral vessel occlusive disease, severe pulmonary hypertension, chronic obstructive pulmonary disease, patient normally sees Dr. Dillard on outpatient basis. 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 Admitted this time with few days history of increased shortness of breath, and according to the his O2 saturation was down in the 60s. Patient was brought into the ER, chest x-ray showed evidence of pulmonary edema, VQ scan negative for pulmonary embolism, patient was admitted and this consult was initiated. Patient is not a great historian, most of the information was obtained from his , apparently the patient had history of CVA in the past, and he had a previous PEG tube placement Labs on admission showed relatively normal CBC, no leukocytosis, D-dimer was a bit elevated at 2.10 and renal profile was abnormal with BUN of 43 and creatinine 2.01 however BNP level was 12,300 and troponin was 0.043. Since admission, the patient received 1 dose of Lasix, and he is at least 1.5 L negative fluid balance The patient is seen today April 14, 2024 in follow-up on the selective care unit. He is currently sitting up at the bedside. Awake and alert in no acute distress. Breathing a bit easier today compared to yesterday. Currently maintaining good O2 saturations in the upper 90s on 3 L/min per nasal cannula. He is afebrile. Hemodynamically stable. Echocardiogram reveals impaired left ventricular systolic function with an ejection fraction of 35 to 40%. Severe pulmonary hypertension. Moderate to severely dilated left atrium. Right first toe culture is pending. Currently on Unasyn. Glucose 125. Being nourished with Glucerna at 51 MLS per hour via his PEG tube. Anticoagulated with Eliquis. Remains on diuretics. Making adequate urine. The patient is seen today April 15, 2024 in follow-up on the selective care unit. He is awake and alert in no acute distress. Maintaining O2 saturations in the 90s on 3 L/min per nasal cannula. Hemodynamically stable. White count 8.4. Hemoglobin 11.2. Platelets 321. Sodium 143. Potassium 4.9. Bicarb 29. BUN 45. Creatinine 1.99. Glucose 126. He is continued on Unasyn. Anticoagulated with Eliquis. Remains on bronchodilators. Remains on oral diuretics. Continued on Glucerna via his PEG tube. Barium swallow is pending so the patient can continue on tube feedings in the outpatient setting Patient was evaluated today on 04/16/2024, patient is doing well, comfortable, not in any distress, on 3 L nasal cannula with O2 sats of 96%. WBC is 8.5 hemoglobin 10.5 electrolytes are relatively normal with potassium of 5.2 BUN is 48 creatinine 1.94, steadily improving since admission patient had a successful swallow evaluation study that came back unremarkable. Objective - Vital Signs Vital signs: Vital Signs Temp 98.2 F 04/16/24 08:00 Pulse 92 04/16/24 14:00 Resp 18 04/16/24 14:00 BP 124/76 04/16/24 12:00 Pulse Ox 96 04/16/24 12:00 FiO2 Intake & Output 04/15/24 04/16/24 04/16/24 18:59 06:59 18:59 Output Total 250 Balance -250 Weight 97.2 kg 97.2 kg Output: Urine 250 Other: Voiding Method Urinal # Voids 600 - Exam GENERAL EXAM: Reveals 63-year-old white male in no distress, on 3 L nasal cannula with O2 saturation 96% HEAD: Normocephalic. EYES: Normal reaction of pupils, equal size. NOSE: Clear with pink turbinates. THROAT: No erythema or exudates. NECK: No masses, no JVD. CHEST: No chest wall deformity. LUNGS: Equal air entry with no crackles, wheeze, rhonchi or dullness. CVS: S1 and S2 normal with no audible murmur, regular rhythm. ABDOMEN: PEG tube exit site clean and dry. No hepatosplenomegaly, normal bowel sounds, no guarding or rigidity. SKIN: Evidence of purulent drainage noted at the site of a previous amputation of the big toe and second toe on the right foot CENTRAL NERVOUS SYSTEM: No focal deficits, tone is normal in all 4 extremities. EXTREMITIES: Right foot drainage from previous amputation site. There is no peripheral edema. Peripheral pulses are intact. - Labs CBC & Chem 7: 04/16/24 07:40 04/16/24 07:40 Labs: Abnormal Lab Results - Last 24 Hours (Table) 04/15/24 04/15/24 04/16/24 Range/Units 17:00 23:24 07:40 RBC 3.36 L (4.30-5.90) m/uL Hgb 10.5 L (13.0-17.5) gm/dL Hct 35.0 L (39.0-53.0) % MCV 104.3 H (80.0-100.0) fL MCHC 30.0 L (31.0-37.0) g/dL Lymphocytes # 0.9 L (1.0-4.8) k/uL Potassium (3.5-5.1) mmol/L Chloride (98-107) mmol/L BUN (9-20) mg/dL Creatinine (0.66-1.25) mg/dL Glucose (74-99) mg/dL POC Glucose (mg/dL) 129 H 136 H (70-110) mg/dL Total Protein (6.3-8.2) g/dL Albumin (3.5-5.0) g/dL 04/16/24 04/16/24 Range/Units 07:40 11:38 RBC (4.30-5.90) m/uL Hgb (13.0-17.5) gm/dL Hct (39.0-53.0) % MCV (80.0-100.0) fL MCHC (31.0-37.0) g/dL Lymphocytes # (1.0-4.8) k/uL Potassium 5.2 H (3.5-5.1) mmol/L Chloride 110 H (98-107) mmol/L BUN 48 H (9-20) mg/dL Creatinine 1.94 H (0.66-1.25) mg/dL Glucose 129 H (74-99) mg/dL POC Glucose (mg/dL) 154 H (70-110) mg/dL Total Protein 6.0 L (6.3-8.2) g/dL Albumin 3.2 L (3.5-5.0) g/dL Microbiology - Last 24 Hours (Table) 04/13/24 15:20 Anaerobic Culture - Preliminary Toe - Right First 04/13/24 15:20 Gram Stain - Final Toe - Right First Wound Culture - Final Assessment and Plan Assessment: Impression: Acute hypoxic respiratory failure Acute pulmonary edema/congestive heart failure, mostly systolic congestive heart failure with LV ejection fraction of 35 to 40% History of peripheral vessel occlusive disease and previous stenting of right SFA and right popliteal artery by Dr. Dillard Severe pulmonary hypertension Paroxysmal atrial fibrillation History of CVA Type 2 diabetes Chronic kidney disease, baseline creatinine is in the range of 2.0 since 2020 Acute cellulitis of right foot with previous amputation of big toe and second toe Recommendation: Continue present supportive care measures Resume his home cardiac meds Continue Lasix Avoid nonsteroidal anti-inflammatory drug Continue antibiotics as per ID on the case picker renal profile Consider placement in rehab Bronchodilators for underlying COPD Will continue to follow. Time with Patient: Less than 30
--- NOTE | 2024-04-16 16:41 | P.PN ---
Subjective Progress Note Date: 04/15/24 Principal diagnosis: Reason for follow-up is right foot wound and cellulitis Patient is a 63-year-old male with a past medical history significant for diabetes mellitus hypertension hyperlipidemia pneumonia CVA TIA COPD patient did have a right big toe amputation done by and was recently admitted to the hospital concerning for pain to the right foot and cold feeling patient has been diagnosed with PAD and is s/p peripheral intervention by interventional cardiology with angioplasty of SFA and right popliteal arteries however unsuccessful angioplasty of the right anterior tibial artery patient presented to hospital with weakness hypoxemia. On today's evaluation that is 04/15/2024,the patient remains to be afebrile, patient is on 3 L nasal cannula supplemental oxygen and denies any shortness of breath no chest pain did have some cough.Patient denies having any nausea or vomiting, no abdominal pain and no diarrhea and denies pain to the right foot wound. Patient white count is 8.4, creatinine is 1.99 Objective - Vital Signs Vital signs: Vital Signs Temp 97.8 F 04/15/24 08:00 Pulse 99 04/15/24 13:39 Resp 16 04/15/24 13:39 BP 127/75 04/15/24 12:00 Pulse Ox 92 L 04/15/24 12:00 FiO2 Intake & Output 04/14/24 04/15/24 04/15/24 18:59 06:59 18:59 Output Total 750 Balance -750 Weight 98.2 kg Output: Urine 750 Other: Voiding Method Urinal # Voids 2 600 # Bowel Movements 1 - Exam GENERAL DESCRIPTION: Middle-age male lying in bed in no distress RESPIRATORY SYSTEM: Unlabored breathing , decreased breath sounds at bases HEART: S1 S2 regular rate and rhythm , ABDOMEN: Soft , no tenderness EXTREMITIES: Right foot wound is currently dressed - Labs CBC & Chem 7: 04/16/24 07:40 04/16/24 07:40 Labs: Abnormal Lab Results - Last 24 Hours (Table) 04/14/24 04/15/24 04/15/24 Range/Units 16:41 00:20 05:53 RBC (4.30-5.90) m/uL Hgb (13.0-17.5) gm/dL Hct (39.0-53.0) % MCV (80.0-100.0) fL MCHC (31.0-37.0) g/dL Lymphocytes # (1.0-4.8) k/uL Chloride (98-107) mmol/L BUN (9-20) mg/dL Creatinine (0.66-1.25) mg/dL Glucose (74-99) mg/dL POC Glucose (mg/dL) 132 H 132 H 132 H (70-110) mg/dL Total Protein (6.3-8.2) g/dL Albumin (3.5-5.0) g/dL 04/15/24 04/15/24 04/15/24 Range/Units 06:42 06:42 11:59 RBC 3.65 L (4.30-5.90) m/uL Hgb 11.2 L (13.0-17.5) gm/dL Hct 38.1 L (39.0-53.0) % MCV 104.3 H (80.0-100.0) fL MCHC 29.6 L (31.0-37.0) g/dL Lymphocytes # 0.9 L (1.0-4.8) k/uL Chloride 109 H (98-107) mmol/L BUN 45 H (9-20) mg/dL Creatinine 1.99 H (0.66-1.25) mg/dL Glucose 126 H (74-99) mg/dL POC Glucose (mg/dL) 121 H (70-110) mg/dL Total Protein 6.2 L (6.3-8.2) g/dL Albumin 3.3 L (3.5-5.0) g/dL Microbiology - Last 24 Hours (Table) 04/13/24 15:20 Gram Stain - Preliminary Toe - Right First Wound Culture - Preliminary Assessment and Plan (1) Cellulitis of right foot Current Visit: No Status: Acute Code(s): L03.115 - CELLULITIS OF RIGHT LOWER LIMB SNOMED Code(s): 80396275560359584 (2) Diabetic foot ulcer Current Visit: No Status: Acute Code(s): E11.621 - TYPE 2 DIABETES MELLITUS WITH FOOT ULCER; L97.509 - NON-PRESSURE CHRONIC ULCER OTH PRT UNSP FOOT W UNSP SEVERITY SNOMED Code(s): 705119901 Plan: 1patient presenting to the hospital mostly with generalized weakness low O2 sats possibly underlying cardiac etiology for the patient being managed by cardiology, patient also have a 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 2patient is afebrile with normal continue with Unasyn while waiting for the culture to finalize Dictation was produced using [employer] dictation software. please excuse any grammatical, word or spelling errors. Time with Patient: Less than 30
--- NOTE | 2024-04-16 16:42 | P.PN ---
Subjective Progress Note Date: 04/16/24 Principal diagnosis: Reason for follow-up is right foot wound and cellulitis Patient is a 63-year-old male with a past medical history significant for diabetes mellitus hypertension hyperlipidemia pneumonia CVA TIA COPD patient did have a right big toe amputation done by and was recently admitted to the hospital concerning for pain to the right foot and cold feeling patient has been diagnosed with PAD and is s/p peripheral intervention by interventional cardiology with angioplasty of SFA and right popliteal arteries however unsuccessful angioplasty of the right anterior tibial artery patient presented to hospital with weakness hypoxemia. On today's evaluation that is 04/16/2024, the patient continues to be afebrile, the patient is on 2 L nasal oxygen and breathing comfortably, the Pt denies having any chest pain however mention did have a cough and bring up some sputum, the patient denies having any abdominal pain no vomiting or any diarrhea, denies pain to the right foot wound. Patient white count is 8.5 creatinine is 1.94, right foot wound cultures so far negative Objective - Vital Signs Vital signs: Vital Signs Temp 98.2 F 04/16/24 08:00 Pulse 92 04/16/24 14:00 Resp 18 04/16/24 14:00 BP 124/76 04/16/24 12:00 Pulse Ox 96 04/16/24 12:00 FiO2 Intake & Output 04/15/24 04/16/24 04/16/24 18:59 06:59 18:59 Output Total 250 500 Balance -250 -500 Weight 97.2 kg 97.2 kg Output: Urine 250 500 Other: Voiding Method Urinal # Voids 600 - Exam GENERAL DESCRIPTION: Middle-age male lying in bed in no distress RESPIRATORY SYSTEM: Unlabored breathing , decreased breath sounds at bases HEART: S1 S2 regular rate and rhythm , ABDOMEN: Soft , no tenderness EXTREMITIES: Right foot wound is currently dressed - Labs CBC & Chem 7: 04/16/24 07:40 04/16/24 07:40 Labs: Abnormal Lab Results - Last 24 Hours (Table) 04/15/24 04/15/24 04/16/24 Range/Units 17:00 23:24 07:40 RBC 3.36 L (4.30-5.90) m/uL Hgb 10.5 L (13.0-17.5) gm/dL Hct 35.0 L (39.0-53.0) % MCV 104.3 H (80.0-100.0) fL MCHC 30.0 L (31.0-37.0) g/dL Lymphocytes # 0.9 L (1.0-4.8) k/uL Potassium (3.5-5.1) mmol/L Chloride (98-107) mmol/L BUN (9-20) mg/dL Creatinine (0.66-1.25) mg/dL Glucose (74-99) mg/dL POC Glucose (mg/dL) 129 H 136 H (70-110) mg/dL Total Protein (6.3-8.2) g/dL Albumin (3.5-5.0) g/dL 04/16/24 04/16/24 Range/Units 07:40 11:38 RBC (4.30-5.90) m/uL Hgb (13.0-17.5) gm/dL Hct (39.0-53.0) % MCV (80.0-100.0) fL MCHC (31.0-37.0) g/dL Lymphocytes # (1.0-4.8) k/uL Potassium 5.2 H (3.5-5.1) mmol/L Chloride 110 H (98-107) mmol/L BUN 48 H (9-20) mg/dL Creatinine 1.94 H (0.66-1.25) mg/dL Glucose 129 H (74-99) mg/dL POC Glucose (mg/dL) 154 H (70-110) mg/dL Total Protein 6.0 L (6.3-8.2) g/dL Albumin 3.2 L (3.5-5.0) g/dL Microbiology - Last 24 Hours (Table) 04/13/24 15:20 Anaerobic Culture - Preliminary Toe - Right First 04/13/24 15:20 Gram Stain - Final Toe - Right First Wound Culture - Final Assessment and Plan (1) Cellulitis of right foot Current Visit: No Status: Acute Code(s): L03.115 - CELLULITIS OF RIGHT LOWER LIMB SNOMED Code(s): 22451281898097055 (2) Diabetic foot ulcer Current Visit: No Status: Acute Code(s): E11.621 - TYPE 2 DIABETES MELLITUS WITH FOOT ULCER; L97.509 - NON-PRESSURE CHRONIC ULCER OTH PRT UNSP FOOT W UNSP SEVERITY SNOMED Code(s): 954027824 Plan: 1patient presenting to the hospital mostly with generalized weakness low O2 sats possibly underlying cardiac etiology for the patient being managed by cardiology, patient also have a 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 2patient is afebrile with white count is normal right foot wound culture negative on Unasyn has been complaining of cough with some purulent sputum we will check a sputum for Gram stain culture Dictation was produced using [employer] dictation software. please excuse any grammatical, word or spelling errors. Time with Patient: Less than 30
--- NOTE | 2024-04-16 17:14 | P.PN ---
Subjective Progress Note Date: 04/16/24 Everett Juárez, is a 63-year-old male who presented to [facility] emergency room with a chief complaint of worsening shortness of breath and generalized weakness, patient was recently admitted to [facility] with peripheral vascular disease right foot osteomyelitis and underwent stenting of the right SFA by Dr. Dillard, he has a previous history of right great toe amputation. He was evaluated in the emergency room vital examination on presentation revealed a temperature of 98.9 pulse 110 respiration 18 blood pressure 114/72 pulse ox 96% on room air Laboratory data reveals a white blood count of 8.7 hemoglobin 11.4 platelet count 283 sodium 139 potassium 4.9 chloride 110 CO2 23 BUN 41 creatinine 2.01 D- dimer was elevated at 2.10, troponin level was elevated at 0.043 Testing in the emergency room revealed chest x-ray done in the emergency room revealed cardiomegaly and mild pulmonary vascular congestion suggestive of congestive heart failure, VQ scan showed no evidence for pulmonary embolism, EKG revealed atrial fibrillation with moderate T wave abnormalities suggestive of lateral ischemia. Patient was admitted to medical floor for further evaluation and treatment Past medical history is significant for history of atrial fibrillation, history of peripheral arterial disease with previous history of right great toe amputation, history of COPD, history of diabetes mellitus type 2, history of hyperkalemia, history of chronic kidney disease. On review of systems patient is alert and oriented x 3 in no apparent distress, he is complaining of generalized weakness, complaining of shortness of breath, which is worse with activity, and complaining of right foot pain, otherwise he denies any complaints, there is no fever or chills no headache or dizziness no chest pain, no cough no nausea or vomiting no abdominal pain no diarrhea and no urinary symptoms On 04/14/2024 patient is alert and oriented 3.Patient remains on IV Unasyn and IV Lasix. 2-D echo completed showing an EF of 35-40%. Current vital signs temp 98.3, heart 81, respiratory rate 18, blood pressure 135/67 with a pulse ox of 100% on 3 L. Patient reports improvement with shortness of breath. Patient denies nausea vomiting or diarrhea. Patient denies any urinary burning or frequency On 04/15/2024 Patient is alert and oriented 3. Patient remains on IV Unasyn. Patient has been transitioned to by mouth Lasix.Current vital signs temp 97.1, heart rate 98, respiratory rate 18, blood pressure 121/79 with pulse ox 96% on 3 L. Patient denies chest pain or shortness breath. Patient denies nausea vomiting or diarrhea. Patient denies any urinary burning or frequency. On 04/16/2024 he is alert and oriented x 3 in no apparent distress he reports improvement in his shortness of breath there is no fever or chills no headache or dizziness no chest pain no cough no nausea or vomiting no abdominal pain no diarrhea and no urinary symptoms. Objective - Vital Signs Vital signs: Vital Signs Temp 98.1 F 04/16/24 04:00 Pulse 100 04/16/24 09:01 Resp 18 04/16/24 04:00 BP 147/76 04/16/24 04:00 Pulse Ox 94 L 04/16/24 09:01 FiO2 Intake & Output 04/15/24 04/16/24 04/16/24 18:59 06:59 18:59 Output Total 250 Balance -250 Weight 97.2 kg Output: Urine 250 Other: Voiding Method Urinal # Voids 600 - Exam In general patient is alert and oriented x 3 in no distress HEENT head normocephalic and atraumatic Neck is supple no JVD no goiter no lymphadenopathy no carotid bruit Chest examination reveals a scattered crackles in both lung [place] no wheezing Cardiac exam reveals irregular heart sounds S1 and S2 no gallops no murmurs Abdomen is soft nontender no organomegaly with normal bowel sounds Extremity exam reveals no edema no cyanosis or clubbing, the right great toe is amputated with a large ulcer at the base of the amputated right great toe with purulent discharge Neurological examination reveals no gross focal deficits - Labs CBC & Chem 7: 04/16/24 07:40 04/16/24 07:40 Labs: Abnormal Lab Results - Last 24 Hours (Table) 04/15/24 04/15/24 04/15/24 Range/Units 11:59 17:00 23:24 RBC (4.30-5.90) m/uL Hgb (13.0-17.5) gm/dL Hct (39.0-53.0) % MCV (80.0-100.0) fL MCHC (31.0-37.0) g/dL Lymphocytes # (1.0-4.8) k/uL Potassium (3.5-5.1) mmol/L Chloride (98-107) mmol/L BUN (9-20) mg/dL Creatinine (0.66-1.25) mg/dL Glucose (74-99) mg/dL POC Glucose (mg/dL) 121 H 129 H 136 H (70-110) mg/dL Total Protein (6.3-8.2) g/dL Albumin (3.5-5.0) g/dL 04/16/24 04/16/24 Range/Units 07:40 07:40 RBC 3.36 L (4.30-5.90) m/uL Hgb 10.5 L (13.0-17.5) gm/dL Hct 35.0 L (39.0-53.0) % MCV 104.3 H (80.0-100.0) fL MCHC 30.0 L (31.0-37.0) g/dL Lymphocytes # 0.9 L (1.0-4.8) k/uL Potassium 5.2 H (3.5-5.1) mmol/L Chloride 110 H (98-107) mmol/L BUN 48 H (9-20) mg/dL Creatinine 1.94 H (0.66-1.25) mg/dL Glucose 129 H (74-99) mg/dL POC Glucose (mg/dL) (70-110) mg/dL Total Protein 6.0 L (6.3-8.2) g/dL Albumin 3.2 L (3.5-5.0) g/dL Microbiology - Last 24 Hours (Table) 04/13/24 15:20 Anaerobic Culture - Preliminary Toe - Right First 04/13/24 15:20 Gram Stain - Final Toe - Right First Wound Culture - Final Assessment and Plan Plan: Worsening shortness of breath, multifactorial, possibly related to acute congestive heart failure, and underlying COPD Atrial fibrillation, with rapid ventricular response on presentation, heart rate was 110 New onset cardiomyopathy. Generalized weakness Large ulcer at the base of the right great toe with purulent discharge, patient was maintained on oral Augmentin as outpatient, infectious disease consultation requested Underlying history of peripheral arterial disease, with recent history of angioplasty and stent placement to the right lower extremity Underlying history of diabetes mellitus Underlying history of chronic obstructive pulmonary disease Underlying history of chronic kidney disease Underlying history of hyperkalemia Underlying history of chronic continued tobacco abuse At this time patient is admitted to telemetry floor Home medications reviewed and reordered Consultation for cardiology and pulmonary were requested in the emergency room For DVT prophylaxis, patient is maintained on Eliquis Will add infectious disease consultation in regard to base of right great toe ulcer Will follow closely
[2024-04-16 17:50] LABS: Glucose,Whole Blood 141 mg/dL (70-110)
[2024-04-16 23:51] LABS: Glucose,Whole Blood 147 mg/dL (70-110)
[2024-04-17 06:21] LABS: Glucose,Whole Blood 159 mg/dL (70-110)
[2024-04-17 08:11] LABS: ALT 11 U/L (4-49); AST 17 U/L (17-59); African American GFR (CKD) 40 (>60 ml/min/1.73 sqM); Albumin 3.3 g/dL (3.5-5.0); Alkaline Phosphatase 79 U/L (38-126); Anion Gap 4 mmol/L; Blood Urea Nitrogen 56 mg/dL (9-20); Calcium 8.6 mg/dL (8.4-10.2); Carbon Dioxide 32 mmol/L (22-30); Chloride 109 mmol/L (98-107); Glucose 133 mg/dL (74-99); Non-African American GFR(CKD) 35 (>60 ml/min/1.73 sqM); Potassium 5.4 mmol/L (3.5-5.1); Sodium 145 mmol/L (137-145); Total Bilirubin 0.5 mg/dL (0.2-1.3); Total Protein 6.2 g/dL (6.3-8.2)
[2024-04-17 08:31] LABS: Basophils % (A) 0 %; Eosinophils # (A) 0.6 k/uL (0-0.7); Eosinophils % (A) 6 %; HCT 36.1 % (39.0-53.0); HGB 10.9 gm/dL (13.0-17.5); Hypochromasia Moderate; Lymphocytes # (A) 1.2 k/uL (1.0-4.8); Lymphocytes % (A) 12 %; MCH 31.2 pg (25.0-35.0); MCHC 30.1 g/dL (31.0-37.0); MCV 103.6 fL (80.0-100.0); Macrocytosis Slight; Monocytes # (A) 0.9 k/uL (0-1.0); Monocytes % (A) 9 %; Neutrophils # (A) 6.6 k/uL (1.3-7.7); Neutrophils % (A) 69 %; Platelet Count 305 k/uL (150-450); RBC 3.49 m/uL (4.30-5.90); RDW 14.7 % (11.5-15.5); WBC 9.6 k/uL (3.8-10.6)
--- NOTE | 2024-04-17 09:59 | P.PN ---
Subjective Progress Note Date: 04/17/24 Everett Juárez, is a 63-year-old male who presented to [facility] emergency room with a chief complaint of worsening shortness of breath and generalized weakness, patient was recently admitted to [facility] with peripheral vascular disease right foot osteomyelitis and underwent stenting of the right SFA by Dr. Dillard, he has a previous history of right great toe amputation. He was evaluated in the emergency room vital examination on presentation revealed a temperature of 98.9 pulse 110 respiration 18 blood pressure 114/72 pulse ox 96% on room air Laboratory data reveals a white blood count of 8.7 hemoglobin 11.4 platelet count 283 sodium 139 potassium 4.9 chloride 110 CO2 23 BUN 41 creatinine 2.01 D- dimer was elevated at 2.10, troponin level was elevated at 0.043 Testing in the emergency room revealed chest x-ray done in the emergency room revealed cardiomegaly and mild pulmonary vascular congestion suggestive of congestive heart failure, VQ scan showed no evidence for pulmonary embolism, EKG revealed atrial fibrillation with moderate T wave abnormalities suggestive of lateral ischemia. Patient was admitted to medical floor for further evaluation and treatment Past medical history is significant for history of atrial fibrillation, history of peripheral arterial disease with previous history of right great toe amputation, history of COPD, history of diabetes mellitus type 2, history of hyperkalemia, history of chronic kidney disease. On review of systems patient is alert and oriented x 3 in no apparent distress, he is complaining of generalized weakness, complaining of shortness of breath, which is worse with activity, and complaining of right foot pain, otherwise he denies any complaints, there is no fever or chills no headache or dizziness no chest pain, no cough no nausea or vomiting no abdominal pain no diarrhea and no urinary symptoms On 04/14/2024 patient is alert and oriented 3.Patient remains on IV Unasyn and IV Lasix. 2-D echo completed showing an EF of 35-40%. Current vital signs temp 98.3, heart 81, respiratory rate 18, blood pressure 135/67 with a pulse ox of 100% on 3 L. Patient reports improvement with shortness of breath. Patient denies nausea vomiting or diarrhea. Patient denies any urinary burning or frequency On 04/15/2024 Patient is alert and oriented 3. Patient remains on IV Unasyn. Patient has been transitioned to by mouth Lasix.Current vital signs temp 97.1, heart rate 98, respiratory rate 18, blood pressure 121/79 with pulse ox 96% on 3 L. Patient denies chest pain or shortness breath. Patient denies nausea vomiting or diarrhea. Patient denies any urinary burning or frequency. On 04/16/2024 he is alert and oriented x 3 in no apparent distress he reports improvement in his shortness of breath there is no fever or chills no headache or dizziness no chest pain no cough no nausea or vomiting no abdominal pain no diarrhea and no urinary symptoms. On 04/17/2024 patient is alert and oriented x 3. Current vital signs Temp 98.1, heart rate 100, respiratory rate 16, blood pressure 153/81 with a pulse ox of 97% on 2 L. Patient remains on IV Unasyn. Awaiting final antibiotic recommenda tions per ID. Patient denies chest pain or shortness of breath. Patient denies nausea vomiting or diarrhea. Patient denies any urinary burning or frequency Objective - Vital Signs Vital signs: Vital Signs Temp 98.1 F 04/17/24 04:14 Pulse 100 04/17/24 04:14 Resp 16 04/17/24 04:14 BP 153/81 04/17/24 04:14 Pulse Ox 87 L 04/17/24 09:00 FiO2 Intake & Output 04/16/24 04/17/24 04/17/24 18:59 06:59 18:59 Intake Total 30 Output Total 500 775 Balance -500 -745 Weight 97.2 kg 96.8 kg Intake: IV 30 Invasive Line 1 20 Invasive Line 2 10 Output: Urine 500 775 Other: Voiding Method Urinal # Voids 1 - Exam In general patient is alert and oriented x 3 in no distress HEENT head normocephalic and atraumatic Neck is supple no JVD no goiter no lymphadenopathy no carotid bruit Chest examination reveals a scattered crackles in both lung [place] no wheezing Cardiac exam reveals irregular heart sounds S1 and S2 no gallops no murmurs Abdomen is soft nontender no organomegaly with normal bowel sounds Extremity exam reveals no edema no cyanosis or clubbing, the right great toe is amputated with a large ulcer at the base of the amputated right great toe with purulent discharge Neurological examination reveals no gross focal deficits - Labs CBC & Chem 7: 04/17/24 06:32 04/17/24 06:32 Labs: Abnormal Lab Results - Last 24 Hours (Table) 04/16/24 04/16/24 04/16/24 Range/Units 11:38 17:48 23:50 RBC (4.30-5.90) m/uL Hgb (13.0-17.5) gm/dL Hct (39.0-53.0) % MCV (80.0-100.0) fL MCHC (31.0-37.0) g/dL Potassium (3.5-5.1) mmol/L Chloride (98-107) mmol/L Carbon Dioxide (22-30) mmol/L BUN (9-20) mg/dL Creatinine (0.66-1.25) mg/dL Glucose (74-99) mg/dL POC Glucose (mg/dL) 154 H 141 H 147 H (70-110) mg/dL Total Protein (6.3-8.2) g/dL Albumin (3.5-5.0) g/dL 04/17/24 04/17/24 04/17/24 Range/Units 06:20 06:32 06:32 RBC 3.49 L (4.30-5.90) m/uL Hgb 10.9 L (13.0-17.5) gm/dL Hct 36.1 L (39.0-53.0) % MCV 103.6 H (80.0-100.0) fL MCHC 30.1 L (31.0-37.0) g/dL Potassium 5.4 H (3.5-5.1) mmol/L Chloride 109 H (98-107) mmol/L Carbon Dioxide 32 H (22-30) mmol/L BUN 56 H (9-20) mg/dL Creatinine 1.99 H (0.66-1.25) mg/dL Glucose 133 H (74-99) mg/dL POC Glucose (mg/dL) 159 H (70-110) mg/dL Total Protein 6.2 L (6.3-8.2) g/dL Albumin 3.3 L (3.5-5.0) g/dL Assessment and Plan Plan: Worsening shortness of breath, multifactorial, possibly related to acute congestive heart failure, and underlying COPD Atrial fibrillation, with rapid ventricular response on presentation, heart rate was 110 New onset cardiomyopathy. Generalized weakness Large ulcer at the base of the right great toe with purulent discharge, patient was maintained on oral Augmentin as outpatient, infectious disease consultation requested Underlying history of peripheral arterial disease, with recent history of angioplasty and stent placement to the right lower extremity Underlying history of diabetes mellitus Underlying history of chronic obstructive pulmonary disease Underlying history of chronic kidney disease Underlying history of hyperkalemia Underlying history of chronic continued tobacco abuse At this time patient is admitted to telemetry floor Home medications reviewed and reordered Consultation for cardiology and pulmonary were requested in the emergency room For DVT prophylaxis, patient is maintained on Eliquis Will add infectious disease consultation in regard to base of right great toe ulcer Will follow closely
[2024-04-17 11:17] LABS: Glucose,Whole Blood 159 mg/dL (70-110)
--- NOTE | 2024-04-17 13:09 | P.PN ---
Subjective Progress Note Date: 04/17/24 Principal diagnosis: Reason for follow-up is right foot wound and cellulitis Patient is a 63-year-old male with a past medical history significant for diabetes mellitus hypertension hyperlipidemia pneumonia CVA TIA COPD patient did have a right big toe amputation done by and was recently admitted to the hospital concerning for pain to the right foot and cold feeling patient has been diagnosed with PAD and is s/p peripheral intervention by interventional cardiology with angioplasty of SFA and right popliteal arteries however unsuccessful angioplasty of the right anterior tibial artery patient presented to hospital with weakness hypoxemia. On today's evaluation that is 04/17/2024, Patient is afebrile patient is currently on 2 L nasal cannula oxygen and denies having any shortness of breath, the patient denies any chest pain or any worsening cough, the patient denies any nausea vomiting did not have any abdominal pain and no diarrhea, denies pain to the right foot. Patient white count normal at 9.6, creatinine is 1.99 no blood culture has been negative Objective - Vital Signs Vital signs: Vital Signs Temp 98.0 F 04/17/24 08:20 Pulse 100 04/17/24 12:27 Resp 18 04/17/24 12:00 BP 137/77 04/17/24 12:00 Pulse Ox 88 L 04/17/24 12:27 FiO2 Intake & Output 04/16/24 04/17/24 04/17/24 18:59 06:59 18:59 Intake Total 30 Output Total 500 775 Balance -500 -745 Weight 97.2 kg 96.8 kg Intake: IV 30 Invasive Line 1 20 Invasive Line 2 10 Output: Urine 500 775 Other: Voiding Method Urinal Urinal # Voids 1 - Exam GENERAL DESCRIPTION: Middle-age male lying in bed in no distress RESPIRATORY SYSTEM: Unlabored breathing , decreased breath sounds at bases HEART: S1 S2 regular rate and rhythm , ABDOMEN: Soft , no tenderness EXTREMITIES: Right foot wound is currently dressed - Labs CBC & Chem 7: 04/17/24 06:32 04/17/24 06:32 Labs: Abnormal Lab Results - Last 24 Hours (Table) 04/16/24 04/16/24 04/17/24 Range/Units 17:48 23:50 06:20 RBC (4.30-5.90) m/uL Hgb (13.0-17.5) gm/dL Hct (39.0-53.0) % MCV (80.0-100.0) fL MCHC (31.0-37.0) g/dL Potassium (3.5-5.1) mmol/L Chloride (98-107) mmol/L Carbon Dioxide (22-30) mmol/L BUN (9-20) mg/dL Creatinine (0.66-1.25) mg/dL Glucose (74-99) mg/dL POC Glucose (mg/dL) 141 H 147 H 159 H (70-110) mg/dL Total Protein (6.3-8.2) g/dL Albumin (3.5-5.0) g/dL 04/17/24 04/17/24 04/17/24 Range/Units 06:32 06:32 11:16 RBC 3.49 L (4.30-5.90) m/uL Hgb 10.9 L (13.0-17.5) gm/dL Hct 36.1 L (39.0-53.0) % MCV 103.6 H (80.0-100.0) fL MCHC 30.1 L (31.0-37.0) g/dL Potassium 5.4 H (3.5-5.1) mmol/L Chloride 109 H (98-107) mmol/L Carbon Dioxide 32 H (22-30) mmol/L BUN 56 H (9-20) mg/dL Creatinine 1.99 H (0.66-1.25) mg/dL Glucose 133 H (74-99) mg/dL POC Glucose (mg/dL) 159 H (70-110) mg/dL Total Protein 6.2 L (6.3-8.2) g/dL Albumin 3.3 L (3.5-5.0) g/dL Assessment and Plan (1) Cellulitis of right foot Current Visit: No Status: Acute Code(s): L03.115 - CELLULITIS OF RIGHT LOWER LIMB SNOMED Code(s): 29624500606001264 (2) Diabetic foot ulcer Current Visit: No Status: Acute Code(s): E11.621 - TYPE 2 DIABETES MELLITUS WITH FOOT ULCER; L97.509 - NON-PRESSURE CHRONIC ULCER OTH PRT UNSP FOOT W UNSP SEVERITY SNOMED Code(s): 224071553 Plan: 1patient presenting to the hospital mostly with generalized weakness low O2 sats possibly underlying cardiac etiology for the patient being managed by cardiology, patient also have a 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 2patient is afebrile with white count is normal right foot wound culture negative patient is currently on Unasyn and finishing therapy with oral Augmentin Dictation was produced using [employer] dictation software. please excuse any gramma tical, word or spelling errors. Time with Patient: Less than 30
--- NOTE | 2024-04-17 13:56 | P.PN ---
Subjective Progress Note Date: 04/17/24 This is a 63-year-old white male with history of multiple medical problems including coronary artery disease, chronic atrial fibrillation, peripheral vessel occlusive disease, severe pulmonary hypertension, chronic obstructive pulmonary disease, patient normally sees Dr. Dillard on outpatient basis. 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 Admitted this time with few days history of increased shortness of breath, and according to the his O2 saturation was down in the 60s. Patient was brought into the ER, chest x-ray showed evidence of pulmonary edema, VQ scan negative for pulmonary embolism, patient was admitted and this consult was initiated. Patient is not a great historian, most of the information was obtained from his , apparently the patient had history of CVA in the past, and he had a previous PEG tube placement Labs on admission showed relatively normal CBC, no leukocytosis, D-dimer was a bit elevated at 2.10 and renal profile was abnormal with BUN of 43 and creatinine 2. 01 however BNP level was 12,300 and troponin was 0.043. Since admission, the patient received 1 dose of Lasix, and he is at least 1.5 L negative fluid balance The patient is seen today April 14, 2024 in follow-up on the selective care unit. He is currently sitting up at the bedside. Awake and alert in no acute distress. Breathing a bit easier today compared to yesterday. Currently maintaining good O2 saturations in the upper 90s on 3 L/min per nasal cannula. He is afebrile. Hemodynamically stable. Echocardiogram reveals impaired left ventricular systolic function with an ejection fraction of 35 to 40%. Severe pulmonary hypertension. Moderate to severely dilated left atrium. Right first toe culture is pending. Currently on Unasyn. Glucose 125. Being nourished with Glucerna at 51 MLS per hour via his PEG tube. Anticoagulated with Eliquis. Remains on diuretics. Making adequate urine. The patient is seen today April 15, 2024 in follow-up on the selective care unit. He is awake and alert in no acute distress. Maintaining O2 saturations in the 90s on 3 L/min per nasal cannula. Hemodynamically stable. White count 8.4. Hemoglobin 11.2. Platelets 321. Sodium 143. Potassium 4.9. Bicarb 29. BUN 45. Creatinine 1.99. Glucose 126. He is continued on Unasyn. Anticoagulated with Eliquis. Remains on bronchodilators. Remains on oral diuretics. Continued on Glucerna via his PEG tube. Barium swallow is pending so the patient can continue on tube feedings in the outpatient setting Patient was evaluated today on 04/16/2024, patient is doing well, comfortable, not in any distress, on 3 L nasal cannula with O2 sats of 96%. WBC is 8.5 hemoglobin 10.5 electrolytes are relatively normal with potassium of 5.2 BUN is 48 creatinine 1.94, steadily improving since admission patient had a successful swallow evaluation study that came back unremarkable. The patient was seen today April 17, 2024 in follow-up on the selective care unit. He is currently resting comfortably in bed. Awake and alert in no acute distress. Maintaining O2 saturations in the 90s on 2 L/min per nasal cannula. Right foot culture results revealing no growth. White count 9.6. Hemoglobin 1 0.9. Platelets 305. Sodium 145. Potassium 5.4. Bicarb 32. BUN 56. Creatinine 1.99. Glucose 133. He remains on bronchodilators. Anticoagulated with Eliquis. Antibiotics in the form of Unasyn. Remains on Glucerna tube feedings. Objective - Vital Signs Vital signs: Vital Signs Temp 98.0 F 04/17/24 08:20 Pulse 100 04/17/24 12:27 Resp 18 04/17/24 12:00 BP 137/77 04/17/24 12:00 Pulse Ox 88 L 04/17/24 12:27 FiO2 Intake & Output 04/16/24 04/17/24 04/17/24 18:59 06:59 18:59 Intake Total 30 Output Total 500 775 Balance -500 -745 Weight 97.2 kg 96.8 kg Intake: IV 30 Invasive Line 1 20 Invasive Line 2 10 Output: Urine 500 775 Other: Voiding Method Urinal Urinal # Voids 1 - Exam GENERAL EXAM: Alert, 63-year-old male, on 2 L nasal cannula, in no apparent distress. HEAD: Normocephalic. EYES: Normal reaction of pupils, equal size. NOSE: Clear with pink turbinates. THROAT: No erythema or exudates. NECK: No masses, no JVD. CHEST: No chest wall deformity. LUNGS: Equal air entry with no crackles, wheeze, rhonchi or dullness. CVS: S1 and S2 normal with no audible murmur, regular rhythm. ABDOMEN: PEG tube exit site clean and dry. No hepatosplenomegaly, normal bowel sounds, no guarding or rigidity. SPINE: No scoliosis or deformity SKIN: Evidence of purulent drainage noted at the site of a previous amputation of the big toe and second toe on the right foot CENTRAL NERVOUS SYSTEM: No focal deficits, tone is normal in all 4 extremities. EXTREMITIES: Right foot drainage from previous amputation site. There is no peripheral edema. Peripheral pulses are intact. - Labs CBC & Chem 7: 04/17/24 06:32 04/17/24 06:32 Labs: Abnormal Lab Results - Last 24 Hours (Table) 04/16/24 04/16/24 04/17/24 Range/Units 17:48 23:50 06:20 RBC (4.30-5.90) m/uL Hgb (13.0-17.5) gm/dL Hct (39.0-53.0) % MCV (80.0-100.0) fL MCHC (31.0-37.0) g/dL Potassium (3.5-5.1) mmol/L Chloride (98-107) mmol/L Carbon Dioxide (22-30) mmol/L BUN (9-20) mg/dL Creatinine (0.66-1.25) mg/dL Glucose (74-99) mg/dL POC Glucose (mg/dL) 141 H 147 H 159 H (70-110) mg/dL Total Protein (6.3-8.2) g/dL Albumin (3.5-5.0) g/dL 04/17/24 04/17/24 04/17/24 Range/Units 06:32 06:32 11:16 RBC 3.49 L (4.30-5.90) m/uL Hgb 10.9 L (13.0-17.5) gm/dL Hct 36.1 L (39.0-53.0) % MCV 103.6 H (80.0-100.0) fL MCHC 30.1 L (31.0-37.0) g/dL Potassium 5.4 H (3.5-5.1) mmol/L Chloride 109 H (98-107) mmol/L Carbon Dioxide 32 H (22-30) mmol/L BUN 56 H (9-20) mg/dL Creatinine 1.99 H (0.66-1.25) mg/dL Glucose 133 H (74-99) mg/dL POC Glucose (mg/dL) 159 H (70-110) mg/dL Total Protein 6.2 L (6.3-8.2) g/dL Albumin 3.3 L (3.5-5.0) g/dL Assessment and Plan Assessment: Acute hypoxic respiratory failure secondary to an acute exacerbation of systolic congestive heart failure Acute cellulitis of right foot with previous amputation of big toe and second toe, culture revealed no growth History of peripheral vessel occlusive disease and previous stenting of right SFA and right popliteal artery Severe pulmonary hypertension Paroxysmal atrial fibrillation, anticoagulated with Eliquis History of CVA with residual dysphagia requiring PEG tube placement Type 2 diabetes Chronic kidney disease, baseline creatinine is in the range of 2.0 since 2019 Chronic and ongoing tobacco dependence Plan: The patient was seen and evaluated Labs and medications reviewed Continue the current treatment plan Evaluate for possible home oxygen Being nourished with Glucerna via PEG tube Plan will be for home with home care at discharge I have personally seen and examined the patient, performed the documentation and the assessment and plan as written. Number of minutes spent on the visit: 10.
[2024-04-17 16:25] LABS: Glucose,Whole Blood 138 mg/dL (70-110)
[2024-04-18 00:12] LABS: Glucose,Whole Blood 147 mg/dL (70-110)
[2024-04-18 06:02] LABS: Glucose,Whole Blood 140 mg/dL (70-110)
--- NOTE | 2024-04-18 11:00 | P.PN ---
Subjective Progress Note Date: 04/18/24 This is a 63-year-old white male with history of multiple medical problems including coronary artery disease, chronic atrial fibrillation, peripheral vessel occlusive disease, severe pulmonary hypertension, chronic obstructive pulmonary disease, patient normally sees Dr. Dillard on outpatient basis. Patient was never seen by a plastic shaper. Admitted this time with few days history of increased shortness of breath, and according to the his O2 saturation was down in the 60s. Patient was brought into the ER, chest x-ray showed evidence of pulmonary edema, VQ scan negative for pulmonary embolism, patient was admitted and this consult was initiated. Patient is not a great historian, most of the information was obtained from his , apparently the patient had history of CVA in the past, and he had a previous PEG tube placement Labs on admission showed relatively normal CBC, no leukocytosis, D-dimer was a bit elevated at 2.10 and renal profile was abnormal with BUN of 43 and creatinine 2. 01 however BNP level was 12,300 and troponin was 0.043. Since admission, the patient received 1 dose of Lasix, and he is at least 1.5 L negative fluid balance The patient is seen today April 14, 2024 in follow-up on the selective care unit. He is currently sitting up at the bedside. Awake and alert in no acute distress. Breathing a bit easier today compared to yesterday. Currently maintaining good O2 saturations in the upper 90s on 3 L/min per nasal cannula. He is afebrile. Hemodynamically stable. Echocardiogram reveals impaired left ventricular systolic function with an ejection fraction of 35 to 40%. Severe pulmonary hypertension. Moderate to severely dilated left atrium. Right first toe culture is pending. Currently on Unasyn. Glucose 125. Being nourished with Glucerna at 51 MLS per hour via his PEG tube. Anticoagulated with Eliquis. Remains on diuretics. Making adequate urine. The patient is seen today April 15, 2024 in follow-up on the selective care unit. He is awake and alert in no acute distress. Maintaining O2 saturations in the 90s on 3 L/min per nasal cannula. Hemodynamically stable. White count 8.4. Hemoglobin 11.2. Platelets 321. Sodium 143. Potassium 4.9. Bicarb 29. BUN 45. Creatinine 1.99. Glucose 126. He is continued on Unasyn. Anticoagulated with Eliquis. Remains on bronchodilators. Remains on oral diuretics. Continued on Glucerna via his PEG tube. Barium swallow is pending so the patient can continue on tube feedings in the outpatient setting Patient was evaluated today on 04/16/2024, patient is doing well, comfortable, not in any distress, on 3 L nasal cannula with O2 sats of 96%. WBC is 8.5 hemoglobin 10.5 electrolytes are relatively normal with potassium of 5.2 BUN is 48 creatinine 1.94, steadily improving since admission patient had a successful swallow evaluation study that came back unremarkable. The patient was seen today April 17, 2024 in follow-up on the selective care unit. He is currently resting comfortably in bed. Awake and alert in no acute distress. Maintaining O2 saturations in the 90s on 2 L/min per nasal cannula. Right foot culture results revealing no growth. White count 9.6. Hemoglobin 1 0.9. Platelets 305. Sodium 145. Potassium 5.4. Bicarb 32. BUN 56. Creatinine 1.99. Glucose 133. He remains on bronchodilators. Anticoagulated with Eliquis. Antibiotics in the form of Unasyn. Remains on Glucerna tube feedings. The patient is seen today April 18, 2024 in follow-up on the regular medical floor. He is currently sitting up at the bedside. Awake and alert in no acute distress. Maintaining O2 saturations in the 90s on 2 L/min per nasal cannula. He has been afebrile. Hemodynamically stable. He remains on Glucerna at 51 mL/h which is goal. He remains on antibiotics in the form of Unasyn. His right foot dressing is dry and intact. Glucose 140. He remains on bronchodilators. Oral diuretics. Anticoagulated with Eliquis. Objective - Vital Signs Vital signs: Vital Signs Temp 98.3 F 04/18/24 07:01 Pulse 96 04/18/24 07:01 Resp 16 04/18/24 07:01 BP 122/81 04/18/24 07:01 Pulse Ox 99 04/18/24 07:01 FiO2 Intake & Output 04/17/24 04/18/24 04/18/24 18:59 06:59 18:59 Output Total 400 Balance -400 Weight 96.5 kg Output: Urine 400 Other: Voiding Method Urinal Urinal - Exam GENERAL EXAM: Alert, 63-year-old male, sitting up at the bedside, on 2 L nasal cannula, in no apparent distress. HEAD: Normocephalic. EYES: Normal reaction of pupils, equal size. NOSE: Clear with pink turbinates. THROAT: No erythema or exudates. NECK: No masses, no JVD. CHEST: No chest wall deformity. LUNGS: Equal air entry with no crackles, wheeze, rhonchi or dullness. CVS: S1 and S2 normal with no audible murmur, regular rhythm. ABDOMEN: PEG tube exit site clean and dry. No hepatosplenomegaly, normal bowel sounds, no guarding or rigidity. SPINE: No scoliosis or deformity SKIN: Evidence of purulent drainage noted at the site of a previous amputation of the big toe and second toe on the right foot CENTRAL NERVOUS SYSTEM: No focal deficits, tone is normal in all 4 extremities. EXTREMITIES: Right foot dressing dry and intact. There is no peripheral edema. Peripheral pulses are intact. - Labs CBC & Chem 7: 04/17/24 06:32 04/17/24 06:32 Labs: Abnormal Lab Results - Last 24 Hours (Table) 04/17/24 04/17/24 04/18/24 Range/Units 11:16 16:23 00:10 POC Glucose (mg/dL) 159 H 138 H 147 H (70-110) mg/dL 04/18/24 Range/Units 06:00 POC Glucose (mg/dL) 140 H (70-110) mg/dL Microbiology - Last 24 Hours (Table) 04/17/24 12:20 Gram Stain - Preliminary Sputum 04/13/24 15:20 Anaerobic Culture - Final Toe - Right First Assessment and Plan Assessment: Acute hypoxic respiratory failure secondary to an acute exacerbation of systolic congestive heart failure Acute cellulitis of right foot with previous amputation of big toe and second toe, culture revealed no growth History of peripheral vessel occlusive disease and previous stenting of right SFA and right popliteal artery Severe pulmonary hypertension Paroxysmal atrial fibrillation, anticoagulated with Eliquis History of CVA with residual dysphagia requiring PEG tube placement Type 2 diabetes Chronic kidney disease, baseline creatinine is in the range of 2.0 since 2019 Chronic and ongoing tobacco dependence Plan: The patient was seen and evaluated Labs and medications reviewed Continue the current treatment plan Plan will be for home with home care at discharge Social work working with [facility] to try and get tube feedings reinstated I have personally seen and examined the patient, performed the documentation and the assessment and plan as written. Number of minutes spent on the visit: 10.
--- NOTE | 2024-04-18 11:28 | P.PN ---
Subjective Progress Note Date: 04/18/24 Everett Juárez, is a 63-year-old male who presented to [facility] emergency room with a chief complaint of worsening shortness of breath and generalized weakness, patient was recently admitted to [facility] with peripheral vascular disease right foot osteomyelitis and underwent stenting of the right SFA by Dr. Dillard, he has a previous history of right great toe amputation. He was evaluated in the emergency room vital examination on presentation revealed a temperature of 98.9 pulse 110 respiration 18 blood pressure 114/72 pulse ox 96% on room air Laboratory data reveals a white blood count of 8.7 hemoglobin 11.4 platelet count 283 sodium 139 potassium 4.9 chloride 110 CO2 23 BUN 41 creatinine 2.01 D- dimer was elevated at 2.10, troponin level was elevated at 0.043 Testing in the emergency room revealed chest x-ray done in the emergency room revealed cardiomegaly and mild pulmonary vascular congestion suggestive of congestive heart failure, VQ scan showed no evidence for pulmonary embolism, EKG revealed atrial fibrillation with moderate T wave abnormalities suggestive of lateral ischemia. Patient was admitted to medical floor for further evaluation and treatment Past medical history is significant for history of atrial fibrillation, history of peripheral arterial disease with previous history of right great toe amputation, history of COPD, history of diabetes mellitus type 2, history of hyperkalemia, history of chronic kidney disease. On review of systems patient is alert and oriented x 3 in no apparent distress, he is complaining of generalized weakness, complaining of shortness of breath, which is worse with activity, and complaining of right foot pain, otherwise he denies any complaints, there is no fever or chills no headache or dizziness no chest pain, no cough no nausea or vomiting no abdominal pain no diarrhea and no urinary symptoms On 04/14/2024 patient is alert and oriented 3.Patient remains on IV Unasyn and IV Lasix. 2-D echo completed showing an EF of 35-40%. Current vital signs temp 98.3, heart 81, respiratory rate 18, blood pressure 135/67 with a pulse ox of 100% on 3 L. Patient reports improvement with shortness of breath. Patient denies nausea vomiting or diarrhea. Patient denies any urinary burning or frequency On 04/15/2024 Patient is alert and oriented 3. Patient remains on IV Unasyn. Patient has been transitioned to by mouth Lasix.Current vital signs temp 97.1, heart rate 98, respiratory rate 18, blood pressure 121/79 with pulse ox 96% on 3 L. Patient denies chest pain or shortness breath. Patient denies nausea vomiting or diarrhea. Patient denies any urinary burning or frequency. On 04/16/2024 he is alert and oriented x 3 in no apparent distress he reports improvement in his shortness of breath there is no fever or chills no headache or dizziness no chest pain no cough no nausea or vomiting no abdominal pain no diarrhea and no urinary symptoms. On 04/17/2024 patient is alert and oriented x 3. Current vital signs Temp 98.1, heart rate 100, respiratory rate 16, blood pressure 153/81 with a pulse ox of 97% on 2 L. Patient remains on IV Unasyn. Awaiting final antibiotic recommenda tions per ID. Patient denies chest pain or shortness of breath. Patient denies nausea vomiting or diarrhea. Patient denies any urinary burning or frequency. On 04/18/2024 patient was seen and examined on the medical floor he is alert and oriented x 3 in no apparent distress there is no fever or chills no headache or dizziness no chest pain no shortness of breath no cough no nausea or vomiting no abdominal pain no diarrhea no urinary symptoms, he is still maintained on oxygen supplements, patient need to be assessed for need for home oxygen, he is also maintained on tube feeding, telephonic nurse case manager is working on arrangement for tube feeding at home. Otherwise continue with current management will recheck in a.m.. Objective - Vital Signs Vital signs: Vital Signs Temp 98.3 F 04/18/24 07:01 Pulse 96 04/18/24 07:01 Resp 16 04/18/24 07:01 BP 122/81 04/18/24 07:01 Pulse Ox 99 04/18/24 07:01 FiO2 Intake & Output 04/17/24 04/18/24 04/18/24 18:59 06:59 18:59 Output Total 400 Balance -400 Weight 96.5 kg Output: Urine 400 Other: Voiding Method Urinal Urinal - Exam In general patient is alert and oriented x 3 in no distress HEENT head normocephalic and atraumatic Neck is supple no JVD no goiter no lymphadenopathy no carotid bruit Chest examination reveals a scattered crackles in both lung [place] no wheezing Cardiac exam reveals irregular heart sounds S1 and S2 no gallops no murmurs Abdomen is soft nontender no organomegaly with normal bowel sounds Extremity exam reveals no edema no cyanosis or clubbing, the right great toe is amputated with a large ulcer at the base of the amputated right great toe with purulent discharge Neurological examination reveals no gross focal deficits - Labs CBC & Chem 7: 04/17/24 06:32 04/17/24 06:32 Labs: Abnormal Lab Results - Last 24 Hours (Table) 04/17/24 04/17/24 04/18/24 Range/Units 11:16 16:23 00:10 POC Glucose (mg/dL) 159 H 138 H 147 H (70-110) mg/dL 04/18/24 Range/Units 06:00 POC Glucose (mg/dL) 140 H (70-110) mg/dL Microbiology - Last 24 Hours (Table) 04/13/24 15:20 Anaerobic Culture - Final Toe - Right First Assessment and Plan Plan: Worsening shortness of breath, multifactorial, possibly related to acute congestive heart failure, and underlying COPD Atrial fibrillation, with rapid ventricular response on presentation, heart rate was 110 New onset cardiomyopathy. Generalized weakness Large ulcer at the base of the right great toe with purulent discharge, patient was maintained on oral Augmentin as outpatient, infectious disease consultation requested Underlying history of peripheral arterial disease, with recent history of angioplasty and stent placement to the right lower extremity Underlying history of diabetes mellitus Underlying history of chronic obstructive pulmonary disease Underlying history of chronic kidney disease Underlying history of hyperkalemia Underlying history of chronic continued tobacco abuse At this time patient is admitted to telemetry floor Home medications reviewed and reordered Consultation for cardiology and pulmonary were requested in the emergency room For DVT prophylaxis, patient is maintained on Eliquis Will add infectious disease consultation in regard to base of right great toe ulcer Will follow closely
[2024-04-18 11:54] LABS: Glucose,Whole Blood 137 mg/dL (70-110)
--- NOTE | 2024-04-18 15:20 | P.PN ---
Subjective Progress Note Date: 04/18/24 Principal diagnosis: Reason for follow-up is right foot wound and cellulitis Patient is a 63-year-old male with a past medical history significant for diabetes mellitus hypertension hyperlipidemia pneumonia CVA TIA COPD patient did have a right big toe amputation done by and was recently admitted to the hospital concerning for pain to the right foot and cold feeling patient has been diagnosed with PAD and is s/p peripheral intervention by interventional cardiology with angioplasty of SFA and right popliteal arteries however unsuccessful angioplasty of the right anterior tibial artery patient presented to hospital with weakness hypoxemia. On today's evaluation that is 04/18/2024, patient has been afebrile, patient is breathing comfortably and is currently on 4 L nasal cannula oxygen, patient denies having any chest pain he could have a cough and bring up some sputum no nausea vomiting abdominal pain or diarrhea or pain to the right foot. No new lab has been repeated today sputum cultures currently pending Objective - Vital Signs Vital signs: Vital Signs Temp 96.6 F L 04/18/24 13:37 Pulse 108 H 04/18/24 13:37 Resp 17 04/18/24 13:37 BP 118/68 04/18/24 13:37 Pulse Ox 97 04/18/24 13:37 FiO2 Intake & Output 04/17/24 04/18/24 04/18/24 18:59 06:59 18:59 Output Total 400 Balance -400 Weight 96.5 kg Output: Urine 400 Other: Voiding Method Urinal Urinal - Exam GENERAL DESCRIPTION: Middle-age male lying in bed in no distress RESPIRATORY SYSTEM: Unlabored breathing , decreased breath sounds at bases HEART: S1 S2 regular rate and rhythm , ABDOMEN: Soft , no tenderness EXTREMITIES: Right foot wound is currently dressed - Labs CBC & Chem 7: 04/17/24 06:32 04/17/24 06:32 Labs: Abnormal Lab Results - Last 24 Hours (Table) 04/17/24 04/18/24 04/18/24 Range/Units 16:23 00:10 06:00 POC Glucose (mg/dL) 138 H 147 H 140 H (70-110) mg/dL 04/18/24 Range/Units 11:52 POC Glucose (mg/dL) 137 H (70-110) mg/dL Microbiology - Last 24 Hours (Table) 04/17/24 12:20 Gram Stain - Preliminary Sputum Sputum Culture - Preliminary 04/13/24 15:20 Anaerobic Culture - Final Toe - Right First Assessment and Plan (1) Cellulitis of right foot Current Visit: No Status: Acute Code(s): L03.115 - CELLULITIS OF RIGHT LOWER LIMB SNOMED Code(s): 32153939554532077 (2) Diabetic foot ulcer Current Visit: No Status: Acute Code(s): E11.621 - TYPE 2 DIABETES MELLITUS WITH FOOT ULCER; L97.509 - NON-PRESSURE CHRONIC ULCER OTH PRT UNSP FOOT W UNSP SEVERITY SNOMED Code(s): 933075865 Plan: 1patient presenting to the hospital mostly with generalized weakness low O2 sat s possibly underlying cardiac etiology for the patient being managed by cardiology, patient also have a 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 2patient is afebrile with white count is normal right foot wound culture negative, sputum culture currently pending 3- patient to continue with the Unasyn while waiting for the sputum culture to finalize Dictation was produced using [employer] dictation software. please excuse any grammatical, word or spelling errors. Time with Patient: Less than 30
[2024-04-18 18:28] LABS: Glucose,Whole Blood 131 mg/dL (70-110)
[2024-04-19 00:20] LABS: Glucose,Whole Blood 129 mg/dL (70-110)
[2024-04-19 06:10] LABS: Glucose,Whole Blood 134 mg/dL (70-110)
[2024-04-19 09:44] LABS: Basophils # (A) 0.15 X 10*3/uL (0.00-0.10); Basophils % (A) 1.4 %; Eosinophils # (A) 0.43 X 10*3/uL (0.04-0.35); HGB 9.2 g/dL (13.0-17.0); Lymphocytes # (A) 1.37 X 10*3/uL (0.90-5.00); Lymphocytes % (A) 12.7 %; MCH 31.1 pg (27.0-32.0); MCHC 29.7 g/dL (32.0-37.0); MCV 104.7 FL (80.0-97.0); Mean Platelet Volume 10.7 FL (9.5-12.2); Monocytes # (A) 0.98 X 10*3/uL (0.20-1.00); NRBC Per 100 WBC 0.02 X 10*3/uL (0.00-0.01); Neutrophils # (A) 7.83 X 10*3/uL (1.80-7.70); Neutrophils % (A) 72.3 %; Platelet Count 307 X 10*3/uL (140-440); RBC 2.96 X 10*6/uL (4.40-5.60); RDW 14.8 % (11.5-14.5); WBC 10.83 X 10*3/uL (4.50-10.00)
--- NOTE | 2024-04-19 10:00 | P.PN ---
Subjective Progress Note Date: 04/19/24 Everett Juárez, is a 63-year-old male who presented to [facility] emergency room with a chief complaint of worsening shortness of breath and generalized weakness, patient was recently admitted to [facility] with peripheral vascular disease right foot osteomyelitis and underwent stenting of the right SFA by Dr. Dillard, he has a previous history of right great toe amputation. He was evaluated in the emergency room vital examination on presentation revealed a temperature of 98.9 pulse 110 respiration 18 blood pressure 114/72 pulse ox 96% on room air Laboratory data reveals a white blood count of 8.7 hemoglobin 11.4 platelet count 283 sodium 139 potassium 4.9 chloride 110 CO2 23 BUN 41 creatinine 2.01 D- dimer was elevated at 2.10, troponin level was elevated at 0.043 Testing in the emergency room revealed chest x-ray done in the emergency room revealed cardiomegaly and mild pulmonary vascular congestion suggestive of congestive heart failure, VQ scan showed no evidence for pulmonary embolism, EKG revealed atrial fibrillation with moderate T wave abnormalities suggestive of lateral ischemia. Patient was admitted to medical floor for further evaluation and treatment Past medical history is significant for history of atrial fibrillation, history of peripheral arterial disease with previous history of right great toe amputation, history of COPD, history of diabetes mellitus type 2, history of hyperkalemia, history of chronic kidney disease. On review of systems patient is alert and oriented x 3 in no apparent distress, he is complaining of generalized weakness, complaining of shortness of breath, which is worse with activity, and complaining of right foot pain, otherwise he denies any complaints, there is no fever or chills no headache or dizziness no chest pain, no cough no nausea or vomiting no abdominal pain no diarrhea and no urinary symptoms On 04/14/2024 patient is alert and oriented 3.Patient remains on IV Unasyn and IV Lasix. 2-D echo completed showing an EF of 35-40%. Current vital signs temp 98.3, heart 81, respiratory rate 18, blood pressure 135/67 with a pulse ox of 100% on 3 L. Patient reports improvement with shortness of breath. Patient denies nausea vomiting or diarrhea. Patient denies any urinary burning or frequency On 04/15/2024 Patient is alert and oriented 3. Patient remains on IV Unasyn. Patient has been transitioned to by mouth Lasix.Current vital signs temp 97.1, heart rate 98, respiratory rate 18, blood pressure 121/79 with pulse ox 96% on 3 L. Patient denies chest pain or shortness breath. Patient denies nausea vomiting or diarrhea. Patient denies any urinary burning or frequency. On 04/16/2024 he is alert and oriented x 3 in no apparent distress he reports improvement in his shortness of breath there is no fever or chills no headache or dizziness no chest pain no cough no nausea or vomiting no abdominal pain no diarrhea and no urinary symptoms. On 04/17/2024 patient is alert and oriented x 3. Current vital signs Temp 98.1, heart rate 100, respiratory rate 16, blood pressure 153/81 with a pulse ox of 97% on 2 L. Patient remains on IV Unasyn. Awaiting final antibiotic recommenda tions per ID. Patient denies chest pain or shortness of breath. Patient denies nausea vomiting or diarrhea. Patient denies any urinary burning or frequency. On 04/18/2024 patient was seen and examined on the medical floor he is alert and oriented x 3 in no apparent distress there is no fever or chills no headache or dizziness no chest pain no shortness of breath no cough no nausea or vomiting no abdominal pain no diarrhea no urinary symptoms, he is still maintained on oxygen supplements, patient need to be assessed for need for home oxygen, he is also maintained on tube feeding, director of casework services is working on arrangement for tube feeding at home. Otherwise continue with current management will recheck in a.m.. On 04/19/2024 patient is alert and oriented x 3. Patient is maintained on 3 L n roberth cannula. Patient also maintained on IV Unasyn. Awaiting final IV recommendations from infectious disease. Current vital signs Temp 98.2, heart rate 82, blood pressure 116/70 with a pulse ox of 97% on 3 L patient denies chest pain or shortness of breath. Patient denies nausea vomiting or diarrhea. Patient denies any urinary burning or frequency Objective - Vital Signs Vital signs: Vital Signs Temp 97.4 F L 04/19/24 07:36 Pulse 61 04/19/24 08:45 Resp 18 04/19/24 07:36 BP 130/74 04/19/24 07:36 Pulse Ox 97 04/19/24 08:29 FiO2 Intake & Output 04/18/24 04/19/24 04/19/24 18:59 06:59 18:59 Output Total 1100 300 Balance -1100 -300 Weight 96.5 kg Output: Urine 1100 300 Other: Voiding Method Urinal - Exam In general patient is alert and oriented x 3 in no distress HEENT head normocephalic and atraumatic Neck is supple no JVD no goiter no lymphadenopathy no carotid bruit Chest examination reveals a scattered crackles in both lung [place] no wheezing Cardiac exam reveals irregular heart sounds S1 and S2 no gallops no murmurs Abdomen is soft nontender no organomegaly with normal bowel sounds Extremity exam reveals no edema no cyanosis or clubbing, the right great toe is amputated with a large ulcer at the base of the amputated right great toe with purulent discharge Neurological examination reveals no gross focal deficits - Labs CBC & Chem 7: 04/19/24 03:07 04/17/24 06:32 Labs: Abnormal Lab Results - Last 24 Hours (Table) 04/18/24 04/18/24 04/19/24 Range/Units 11:52 18:26 00:19 WBC (4.50-10.00) X 10*3/uL RBC (4.40-5.60) X 10*6/uL Hgb (13.0-17.0) g/dL Hct (39.6-50.0) % MCV (80.0-97.0) FL MCHC (32.0-37.0) g/dL RDW (11.5-14.5) % Immature Gran # (0.00-0.04) X 10*3/uL Neutrophils # (1.80-7.70) X 10*3/uL Eosinophils # (0.04-0.35) X 10*3/uL Basophils # (0.00-0.10) X 10*3/uL NRBC/100 WBC Diff (0.00-0.01) X 10*3/uL POC Glucose (mg/dL) 137 H 131 H 129 H (70-110) mg/dL 04/19/24 04/19/24 Range/Units 03:07 06:09 WBC 10.83 H (4.50-10.00) X 10*3/uL RBC 2.96 L (4.40-5.60) X 10*6/uL Hgb 9.2 L (13.0-17.0) g/dL Hct 31.0 L (39.6-50.0) % MCV 104.7 H (80.0-97.0) FL MCHC 29.7 L (32.0-37.0) g/dL RDW 14.8 H (11.5-14.5) % Immature Gran # 0.07 H (0.00-0.04) X 10*3/uL Neutrophils # 7.83 H (1.80-7.70) X 10*3/uL Eosinophils # 0.43 H (0.04-0.35) X 10*3/uL Basophils # 0.15 H (0.00-0.10) X 10*3/uL NRBC/100 WBC Diff 0.02 H (0.00-0.01) X 10*3/uL POC Glucose (mg/dL) 134 H (70-110) mg/dL Microbiology - Last 24 Hours (Table) 04/17/24 12:20 Gram Stain - Final Sputum Sputum Culture - Final Jenae albicans Assessment and Plan Plan: Worsening shortness of breath, multifactorial, possibly related to acute congestive heart failure, and underlying COPD Atrial fibrillation, with rapid ventricular response on presentation, heart rate was 110 New onset cardiomyopathy. Generalized weakness Large ulcer at the base of the right great toe with purulent discharge, patient was maintained on oral Augmentin as outpatient, infectious disease consultation requested Underlying history of peripheral arterial disease, with recent history of angioplasty and stent placement to the right lower extremity Underlying history of diabetes mellitus Underlying history of chronic obstructive pulmonary disease Underlying history of chronic kidney disease Underlying history of hyperkalemia Underlying history of chronic continued tobacco abuse At this time patient is admitted to telemetry floor Home medications reviewed and reordered Consultation for cardiology and pulmonary were requested in the emergency room For DVT prophylaxis, patient is maintained on Eliquis Will add infectious disease consultation in regard to base of right great toe ulcer Will follow closely
[2024-04-19 11:13] LABS: ALT 11 U/L (10-49); AST 14 U/L (14-35); Albumin 3.5 g/dL (3.8-4.9); Alkaline Phosphatase 77 U/L (41-126); BUN/Creat Ratio 36.35 Ratio (12.00-20.00); Blood Urea Nitrogen 83.6 mg/dL (9.0-27.0); Calcium 8.8 mg/dL (8.7-10.3); Carbon Dioxide 30.7 mmol/L (21.6-31.8); Chloride 106 mmol/L (96-109); Globulin 2.7 g/dL (1.6-3.3); Glucose 105 mg/dL (70-110); Potassium 6.3 mmol/L (3.5-5.5); Sodium 147 mmol/L (135-145); Total Bilirubin 0.3 mg/dL (0.3-1.2); Total Protein 6.2 g/dL (6.2-8.2)
--- NOTE | 2024-04-19 12:19 | P.PN ---
Subjective Progress Note Date: 04/19/24 This is a 63-year-old white male with history of multiple medical problems including coronary artery disease, chronic atrial fibrillation, peripheral vessel occlusive disease, severe pulmonary hypertension, chronic obstructive pulmonary disease, patient normally sees Dr. Dillard on outpatient basis. Patient was never seen by a trim mechanic. Admitted this time with few days history of increased shortness of breath, and according to the his O2 saturation was down in the 60s. Patient was brought into the ER, chest x-ray showed evidence of pulmonary edema, VQ scan negative for pulmonary embolism, patient was admitted and this consult was initiated. Patient is not a great historian, most of the information was obtained from his , apparently the patient had history of CVA in the past, and he had a previous PEG tube placement Labs on admission showed relatively normal CBC, no leukocytosis, D-dimer was a bit elevated at 2.10 and renal profile was abnormal with BUN of 43 and creatinine 2. 01 however BNP level was 12,300 and troponin was 0.043. Since admission, the patient received 1 dose of Lasix, and he is at least 1.5 L negative fluid balance The patient is seen today April 14, 2024 in follow-up on the selective care unit. He is currently sitting up at the bedside. Awake and alert in no acute distress. Breathing a bit easier today compared to yesterday. Currently maintaining good O2 saturations in the upper 90s on 3 L/min per nasal cannula. He is afebrile. Hemodynamically stable. Echocardiogram reveals impaired left ventricular systolic function with an ejection fraction of 35 to 40%. Severe pulmonary hypertension. Moderate to severely dilated left atrium. Right first toe culture is pending. Currently on Unasyn. Glucose 125. Being nourished with Glucerna at 51 MLS per hour via his PEG tube. Anticoagulated with Eliquis. Remains on diuretics. Making adequate urine. The patient is seen today April 15, 2024 in follow-up on the selective care unit. He is awake and alert in no acute distress. Maintaining O2 saturations in the 90s on 3 L/min per nasal cannula. Hemodynamically stable. White count 8.4. Hemoglobin 11.2. Platelets 321. Sodium 143. Potassium 4.9. Bicarb 29. BUN 45. Creatinine 1.99. Glucose 126. He is continued on Unasyn. Anticoagulated with Eliquis. Remains on bronchodilators. Remains on oral diuretics. Continued on Glucerna via his PEG tube. Barium swallow is pending so the patient can continue on tube feedings in the outpatient setting Patient was evaluated today on 04/16/2024, patient is doing well, comfortable, not in any distress, on 3 L nasal cannula with O2 sats of 96%. WBC is 8.5 hemoglobin 10.5 electrolytes are relatively normal with potassium of 5.2 BUN is 48 creatinine 1.94, steadily improving since admission patient had a successful swallow evaluation study that came back unremarkable. The patient was seen today April 17, 2024 in follow-up on the selective care unit. He is currently resting comfortably in bed. Awake and alert in no acute distress. Maintaining O2 saturations in the 90s on 2 L/min per nasal cannula. Right foot culture results revealing no growth. White count 9.6. Hemoglobin 1 0.9. Platelets 305. Sodium 145. Potassium 5.4. Bicarb 32. BUN 56. Creatinine 1.99. Glucose 133. He remains on bronchodilators. Anticoagulated with Eliquis. Antibiotics in the form of Unasyn. Remains on Glucerna tube feedings. The patient is seen today April 18, 2024 in follow-up on the regular medical floor. He is currently sitting up at the bedside. Awake and alert in no acute distress. Maintaining O2 saturations in the 90s on 2 L/min per nasal cannula. He has been afebrile. Hemodynamically stable. He remains on Glucerna at 51 mL/h which is goal. He remains on antibiotics in the form of Unasyn. His right foot dressing is dry and intact. Glucose 140. He remains on bronchodilators. Oral diuretics. Anticoagulated with Eliquis. The patient is seen today April 19, 2024 in follow-up on the regular medical floor. He is currently sitting up in bed. Awake and alert in no acute distress. He is maintaining good O2 saturations in the 90s on 3 L/min per nasal cannula. He remains on antibiotics in the form of Unasyn. He is being nourished with Glucerna at 51 mL/h which is his goal. He is continued on bronchodilators. Anticoagulated with Eliquis. Normal saline at 100 MLS per hour. White count 10.8. Hemoglobin 9.2. Platelets 307. Sodium 147. Potassium 6.3. BUN 84. Creatinine 2.3. Glucose 105. Objective - Vital Signs Vital signs: Vital Signs Temp 97.4 F L 04/19/24 07:36 Pulse 61 04/19/24 08:45 Resp 18 04/19/24 07:36 BP 130/74 04/19/24 07:36 Pulse Ox 97 04/19/24 08:29 FiO2 Intake & Output 04/18/24 04/19/24 04/19/24 18:59 06:59 18:59 Output Total 1100 300 Balance -1100 -300 Weight 96.5 kg Output: Urine 1100 300 Other: Voiding Method Urinal - Exam GENERAL EXAM: Alert, 63-year-old male, on 3 L nasal cannula, in no apparent distress. HEAD: Normocephalic. EYES: Normal reaction of pupils, equal size. NOSE: Clear with pink turbinates. THROAT: No erythema or exudates. NECK: No masses, no JVD. CHEST: No chest wall deformity. LUNGS: Equal air entry with no crackles, wheeze, rhonchi or dullness. CVS: S1 and S2 normal with no audible murmur, regular rhythm. ABDOMEN: PEG tube exit site clean and dry. No hepatosplenomegaly, normal bowel sounds, no guarding or rigidity. SPINE: No scoliosis or deformity SKIN: Evidence of purulent drainage noted at the site of a previous amputation of the big toe and second toe on the right foot CENTRAL NERVOUS SYSTEM: No focal deficits, tone is normal in all 4 extremities. EXTREMITIES: Right foot dressing dry and intact. There is no peripheral edema. Peripheral pulses are intact. - Labs CBC & Chem 7: 04/19/24 03:07 04/19/24 03:07 Labs: Abnormal Lab Results - Last 24 Hours (Table) 04/18/24 04/19/24 04/19/24 Range/Units 18:26 00:19 03:07 WBC 10.83 H (4.50-10.00) X 10*3/uL RBC 2.96 L (4.40-5.60) X 10*6/uL Hgb 9.2 L (13.0-17.0) g/dL Hct 31.0 L (39.6-50.0) % MCV 104.7 H (80.0-97.0) FL MCHC 29.7 L (32.0-37.0) g/dL RDW 14.8 H (11.5-14.5) % Immature Gran # 0.07 H (0.00-0.04) X 10*3/uL Neutrophils # 7.83 H (1.80-7.70) X 10*3/uL Eosinophils # 0.43 H (0.04-0.35) X 10*3/uL Basophils # 0.15 H (0.00-0.10) X 10*3/uL NRBC/100 WBC Diff 0.02 H (0.00-0.01) X 10*3/uL Sodium (135-145) mmol/L Potassium (3.5-5.5) mmol/L BUN (9.0-27.0) mg/dL Creatinine (0.6-1.5) mg/dL Est GFR (CKD-EPI) (>=60) BUN/Creatinine Ratio (12.00-20.00) Ratio POC Glucose (mg/dL) 131 H 129 H (70-110) mg/dL Albumin (3.8-4.9) g/dL Albumin/Globulin Ratio (1.60-3.17) Ratio 04/19/24 04/19/24 Range/Units 03:07 06:09 WBC (4.50-10.00) X 10*3/uL RBC (4.40-5.60) X 10*6/uL Hgb (13.0-17.0) g/dL Hct (39.6-50.0) % MCV (80.0-97.0) FL MCHC (32.0-37.0) g/dL RDW (11.5-14.5) % Immature Gran # (0.00-0.04) X 10*3/uL Neutrophils # (1.80-7.70) X 10*3/uL Eosinophils # (0.04-0.35) X 10*3/uL Basophils # (0.00-0.10) X 10*3/uL NRBC/100 WBC Diff (0.00-0.01) X 10*3/uL Sodium 147 H (135-145) mmol/L Potassium 6.3 A* (3.5-5.5) mmol/L BUN 83.6 H (9.0-27.0) mg/dL Creatinine 2.3 H (0.6-1.5) mg/dL Est GFR (CKD-EPI) 31 L (>=60) BUN/Creatinine Ratio 36.35 H (12.00-20.00) Ratio POC Glucose (mg/dL) 134 H (70-110) mg/dL Albumin 3.5 L (3.8-4.9) g/dL Albumin/Globulin Ratio 1.30 L (1.60-3.17) Ratio Microbiology - Last 24 Hours (Table) 04/17/24 12:20 Gram Stain - Final Sputum Sputum Culture - Final Jenae albicans Assessment and Plan Assessment: Acute hypoxic respiratory failure secondary to an acute exacerbation of systolic congestive heart failure Acute cellulitis of right foot with previous amputation of big toe and second toe, culture revealed no growth History of peripheral vessel occlusive disease and previous stenting of right SFA and right popliteal artery Severe pulmonary hypertension Paroxysmal atrial fibrillation, anticoagulated with Eliquis History of CVA with residual dysphagia requiring PEG tube placement Type 2 diabetes Acute on chronic kidney disease, baseline creatinine is in the range of 2.0 since 2019 Hyperkalemia secondary to above Hypernatremia Chronic and ongoing tobacco dependence Plan: The patient was seen and evaluated Labs and medications reviewed Electrolytes being corrected Titrate down the FiO2 as tolerated Plan will be for home with home care at discharge I have personally seen and examined the patient, performed the documentation and the assessment and plan as written. Number of minutes spent on the visit: 10.
[2024-04-19 12:20] LABS: Glucose,Whole Blood 134 mg/dL (70-110)
[2024-04-19] MEDS: INSULIN ASPART (NovoLOG) 100 UNIT/ML VIAL SQ ONE (12:33)
[2024-04-19] MEDS: DEXTROSE 50% SYRINGE 50 ML IVP STA ×3 (12:33→17:27)
[2024-04-19] MEDS: FUROSEMIDE 10 MG/ML 2 ML VIAL IV ONE (12:33)
[2024-04-19] MEDS: SODIUM CHLORIDE 0.9% 1,000 ML IV STA (12:33)
[2024-04-19] MEDS: DEXTROSE 50% SYRINGE 50 ML IVP ONE ×2 (12:41→17:27)
--- NOTE | 2024-04-19 12:46 | P.PN ---
Subjective Progress Note Date: 04/19/24 Principal diagnosis: Reason for follow-up is right foot wound and cellulitis Patient is a 63-year-old male with a past medical history significant for diabetes mellitus hypertension hyperlipidemia pneumonia CVA TIA COPD patient did have a right big toe amputation done by and was recently admitted to the hospital concerning for pain to the right foot and cold feeling patient has been diagnosed with PAD and is s/p peripheral intervention by interventional cardiology with angioplasty of SFA and right popliteal arteries however unsuccessful angioplasty of the right anterior tibial artery patient presented to hospital with weakness hypoxemia. On today's evaluation that is 04/19/2024, Patient is afebrile this morning and the patient is breathing comfortably on 3 L current oxygen repeat denies having any chest pain no worsening cough or sputum production no nausea vomiting no abdominal pain no diarrhea. Patient white count is 10.83, creatinine is 2.3 sputum showing Jenae albicans Objective - Vital Signs Vital signs: Vital Signs Temp 97.4 F L 04/19/24 07:36 Pulse 61 04/19/24 08:45 Resp 18 04/19/24 07:36 BP 130/74 04/19/24 07:36 Pulse Ox 97 04/19/24 08:29 FiO2 Intake & Output 04/18/24 04/19/24 04/19/24 18:59 06:59 18:59 Output Total 1100 300 Balance -1100 -300 Weight 96.5 kg Output: Urine 1100 300 Other: Voiding Method Urinal - Exam GENERAL DESCRIPTION: Middle-age male lying in bed in no distress RESPIRATORY SYSTEM: Unlabored breathing , decreased breath sounds at bases HEART: S1 S2 regular rate and rhythm , ABDOMEN: Soft , no tenderness EXTREMITIES: Right foot wound is currently dressed - Labs CBC & Chem 7: 04/19/24 03:07 04/19/24 03:07 Labs: Abnormal Lab Results - Last 24 Hours (Table) 04/18/24 04/19/24 04/19/24 Range/Units 18:26 00:19 03:07 WBC 10.83 H (4.50-10.00) X 10*3/uL RBC 2.96 L (4.40-5.60) X 10*6/uL Hgb 9.2 L (13.0-17.0) g/dL Hct 31.0 L (39.6-50.0) % MCV 104.7 H (80.0-97.0) FL MCHC 29.7 L (32.0-37.0) g/dL RDW 14.8 H (11.5-14.5) % Immature Gran # 0.07 H (0.00-0.04) X 10*3/uL Neutrophils # 7.83 H (1.80-7.70) X 10*3/uL Eosinophils # 0.43 H (0.04-0.35) X 10*3/uL Basophils # 0.15 H (0.00-0.10) X 10*3/uL NRBC/100 WBC Diff 0.02 H (0.00-0.01) X 10*3/uL Sodium (135-145) mmol/L Potassium (3.5-5.5) mmol/L BUN (9.0-27.0) mg/dL Creatinine (0.6-1.5) mg/dL Est GFR (CKD-EPI) (>=60) BUN/Creatinine Ratio (12.00-20.00) Ratio POC Glucose (mg/dL) 131 H 129 H (70-110) mg/dL Albumin (3.8-4.9) g/dL Albumin/Globulin Ratio (1.60-3.17) Ratio 04/19/24 04/19/24 04/19/24 Range/Units 03:07 06:09 12:19 WBC (4.50-10.00) X 10*3/uL RBC (4.40-5.60) X 10*6/uL Hgb (13.0-17.0) g/dL Hct (39.6-50.0) % MCV (80.0-97.0) FL MCHC (32.0-37.0) g/dL RDW (11.5-14.5) % Immature Gran # (0.00-0.04) X 10*3/uL Neutrophils # (1.80-7.70) X 10*3/uL Eosinophils # (0.04-0.35) X 10*3/uL Basophils # (0.00-0.10) X 10*3/uL NRBC/100 WBC Diff (0.00-0.01) X 10*3/uL Sodium 147 H (135-145) mmol/L Potassium 6.3 A* (3.5-5.5) mmol/L BUN 83.6 H (9.0-27.0) mg/dL Creatinine 2.3 H (0.6-1.5) mg/dL Est GFR (CKD-EPI) 31 L (>=60) BUN/Creatinine Ratio 36.35 H (12.00-20.00) Ratio POC Glucose (mg/dL) 134 H 134 H (70-110) mg/dL Albumin 3.5 L (3.8-4.9) g/dL Albumin/Globulin Ratio 1.30 L (1.60-3.17) Ratio Microbiology - Last 24 Hours (Table) 04/17/24 12:20 Gram Stain - Final Sputum Sputum Culture - Final Jenae albicans Assessment and Plan (1) Cellulitis of right foot Current Visit: No Status: Acute Code(s): L03.115 - CELLULITIS OF RIGHT LOWER LIMB SNOMED Code(s): 57210860888823496 (2) Diabetic foot ulcer Current Visit: No Status: Acute Code(s): E11.621 - TYPE 2 DIABETES MELLITUS WITH FOOT ULCER; L97.509 - NON-PRESSURE CHRONIC ULCER OTH PRT UNSP FOOT W UNSP SEVERITY SNOMED Code(s): 868164728 Plan: 1patient presenting to the hospital mostly with generalized weakness low O2 sa ts possibly underlying cardiac etiology for the patient being managed by cardiology, patient also have a 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 2patient is afebrile with white count is normal right foot wound culture negative, sputum culture currently growing Jenae which is more likely colonizer 3- patient to continue with the Unasyn and may consider short course of oral Augmentin on discharge Dictation was produced using [employer] dictation software. please excuse any grammatical, word or spelling errors. Time with Patient: Less than 30
[2024-04-19] MEDS: SODIUM ZIRCONIUM CYCLOSILICATE 10 GM PACKET PO SCH (15:26)
[2024-04-19] MEDS: INSULIN REGULAR 100 UNIT/ML VIAL (IV) IV ONE (15:26)
[2024-04-19] MEDS: CALCIUM GLUCONATE IN NACL 1 GM in SALINE 1 100ML.BAG IVPB ONE (15:26)
[2024-04-19] MEDS: SODIUM CHLORIDE 0.45% 1,000 ML IV SCH (15:28)
[2024-04-19 17:11] LABS: Glucose,Whole Blood 50 mg/dL (70-110)
[2024-04-19 18:07] LABS: Glucose,Whole Blood 126 mg/dL (70-110)
[2024-04-20 00:14] LABS: Glucose,Whole Blood 108 mg/dL (70-110)
[2024-04-20 06:23] LABS: Glucose,Whole Blood 134 mg/dL (70-110)
[2024-04-20 09:28] LABS: BUN/Creat Ratio 37.38 Ratio (12.00-20.00); Blood Urea Nitrogen 89.7 mg/dL (9.0-27.0); Calcium 8.3 mg/dL (8.7-10.3); Carbon Dioxide 30.1 mmol/L (21.6-31.8); Chloride 102 mmol/L (96-109); Glucose 120 mg/dL (70-110); Magnesium 2.7 mg/dL (1.5-2.4); Potassium 5.6 mmol/L (3.5-5.5); Sodium 143 mmol/L (135-145)
[2024-04-20 11:24] LABS: Glucose,Whole Blood 131 mg/dL (70-110)
--- NOTE | 2024-04-20 12:10 | P.PN ---
Subjective Progress Note Date: 04/20/24 This is a 63-year-old white male with history of multiple medical problems including coronary artery disease, chronic atrial fibrillation, peripheral vessel occlusive disease, severe pulmonary hypertension, chronic obstructive pulmonary disease, patient normally sees Dr. Dillard on outpatient basis. Patient was never seen by a overnight cashier. Admitted this time with few days history of increased shortness of breath, and according to the his O2 saturation was down in the 60s. Patient was brought into the ER, chest x-ray showed evidence of pulmonary edema, VQ scan negative for pulmonary embolism, patient was admitted and this consult was initiated. Patient is not a great historian, most of the information was obtained from his , apparently the patient had history of CVA in the past, and he had a previous PEG tube placement Labs on admission showed relatively normal CBC, no leukocytosis, D-dimer was a bit elevated at 2.10 and renal profile was abnormal with BUN of 43 and creatinine 2. 01 however BNP level was 12,300 and troponin was 0.043. Since admission, the patient received 1 dose of Lasix, and he is at least 1.5 L negative fluid balance The patient is seen today April 14, 2024 in follow-up on the selective care unit. He is currently sitting up at the bedside. Awake and alert in no acute distress. Breathing a bit easier today compared to yesterday. Currently maintaining good O2 saturations in the upper 90s on 3 L/min per nasal cannula. He is afebrile. Hemodynamically stable. Echocardiogram reveals impaired left ventricular systolic function with an ejection fraction of 35 to 40%. Severe pulmonary hypertension. Moderate to severely dilated left atrium. Right first toe culture is pending. Currently on Unasyn. Glucose 125. Being nourished with Glucerna at 51 MLS per hour via his PEG tube. Anticoagulated with Eliquis. Remains on diuretics. Making adequate urine. The patient is seen today April 15, 2024 in follow-up on the selective care unit. He is awake and alert in no acute distress. Maintaining O2 saturations in the 90s on 3 L/min per nasal cannula. Hemodynamically stable. White count 8.4. Hemoglobin 11.2. Platelets 321. Sodium 143. Potassium 4.9. Bicarb 29. BUN 45. Creatinine 1.99. Glucose 126. He is continued on Unasyn. Anticoagulated with Eliquis. Remains on bronchodilators. Remains on oral diuretics. Continued on Glucerna via his PEG tube. Barium swallow is pending so the patient can continue on tube feedings in the outpatient setting Patient was evaluated today on 04/16/2024, patient is doing well, comfortable, not in any distress, on 3 L nasal cannula with O2 sats of 96%. WBC is 8.5 hemoglobin 10.5 electrolytes are relatively normal with potassium of 5.2 BUN is 48 creatinine 1.94, steadily improving since admission patient had a successful swallow evaluation study that came back unremarkable. The patient was seen today April 17, 2024 in follow-up on the selective care unit. He is currently resting comfortably in bed. Awake and alert in no acute distress. Maintaining O2 saturations in the 90s on 2 L/min per nasal cannula. Right foot culture results revealing no growth. White count 9.6. Hemoglobin 1 0.9. Platelets 305. Sodium 145. Potassium 5.4. Bicarb 32. BUN 56. Creatinine 1.99. Glucose 133. He remains on bronchodilators. Anticoagulated with Eliquis. Antibiotics in the form of Unasyn. Remains on Glucerna tube feedings. The patient is seen today April 18, 2024 in follow-up on the regular medical floor. He is currently sitting up at the bedside. Awake and alert in no acute distress. Maintaining O2 saturations in the 90s on 2 L/min per nasal cannula. He has been afebrile. Hemodynamically stable. He remains on Glucerna at 51 mL/h which is goal. He remains on antibiotics in the form of Unasyn. His right foot dressing is dry and intact. Glucose 140. He remains on bronchodilators. Oral diuretics. Anticoagulated with Eliquis. The patient is seen today April 19, 2024 in follow-up on the regular medical floor. He is currently sitting up in bed. Awake and alert in no acute distress. He is maintaining good O2 saturations in the 90s on 3 L/min per nasal cannula. He remains on antibiotics in the form of Unasyn. He is being nourished with Glucerna at 51 mL/h which is his goal. He is continued on bronchodilators. Anticoagulated with Eliquis. Normal saline at 100 MLS per hour. White count 10.8. Hemoglobin 9.2. Platelets 307. Sodium 147. Potassium 6.3. BUN 84. Creatinine 2.3. Glucose 105. The patient is seen today April 20, 2024 in follow-up on the regular medical floor. He is currently sitting up at the bedside. Awake and alert in no acute distress. Maintaining good O2 saturations in the 90s on 4 L/min per nasal cannula. He remains on Glucerna at 51 mL/h which is goal. 0.45% normal saline at 75 MLS per hour. Potassium 5.6. Bicarb 30. BUN 90. Creatinine 2.4. Glucose 120. He received Lokelma yesterday for his hyperkalemia. Right foot cultures revealed no growth. Sputum culture revealed Jenae. He continues on Unasyn per ID service. He remains on bronchodilators. Anticoagulated with Eliquis. Remains on oral diuretics. Objective - Vital Signs Vital signs: Vital Signs Temp 97.8 F 04/20/24 07:25 Pulse 108 H 04/20/24 09:52 Resp 22 04/20/24 07:25 BP 146/72 04/20/24 07:25 Pulse Ox 100 04/20/24 07:25 FiO2 Intake & Output 04/19/24 04/20/24 04/20/24 18:59 06:59 18:59 Output Total 1500 Balance -1500 Weight 97 kg Output: Urine 1500 Other: Voiding Method Urinal - Exam GENERAL EXAM: Alert, pleasant 63-year-old male, sitting up at the bedside, on 4 L nasal cannula, in no apparent distress. HEAD: Normocephalic. EYES: Normal reaction of pupils, equal size. NOSE: Clear with pink turbinates. THROAT: No erythema or exudates. NECK: No masses, no JVD. CHEST: No chest wall deformity. LUNGS: Equal air entry with no crackles, wheeze, rhonchi or dullness. CVS: S1 and S2 normal with no audible murmur, regular rhythm. ABDOMEN: PEG tube exit site clean and dry. No hepatosplenomegaly, normal bowel sounds, no guarding or rigidity. SPINE: No scoliosis or deformity SKIN: Evidence of purulent drainage noted at the site of a previous amputation of the big toe and second toe on the right foot CENTRAL NERVOUS SYSTEM: No focal deficits, tone is normal in all 4 extremities. EXTREMITIES: Right foot dressing dry and intact. There is no peripheral edema. Peripheral pulses are intact. - Labs CBC & Chem 7: 04/19/24 03:07 04/20/24 05:25 Labs: Abnormal Lab Results - Last 24 Hours (Table) 04/19/24 04/19/24 04/19/24 Range/Units 12:19 17:10 18:05 Potassium (3.5-5.5) mmol/L BUN (9.0-27.0) mg/dL Creatinine (0.6-1.5) mg/dL Est GFR (CKD-EPI) (>=60) BUN/Creatinine Ratio (12.00-20.00) Ratio Glucose (70-110) mg/dL POC Glucose (mg/dL) 134 H 50 L 126 H (70-110) mg/dL Calcium (8.7-10.3) mg/dL Magnesium (1.5-2.4) mg/dL 04/20/24 04/20/24 04/20/24 Range/Units 05:25 06:19 11:22 Potassium 5.6 H (3.5-5.5) mmol/L BUN 89.7 H (9.0-27.0) mg/dL Creatinine 2.4 H (0.6-1.5) mg/dL Est GFR (CKD-EPI) 30 L (>=60) BUN/Creatinine Ratio 37.38 H (12.00-20.00) Ratio Glucose 120 H (70-110) mg/dL POC Glucose (mg/dL) 134 H 131 H (70-110) mg/dL Calcium 8.3 L (8.7-10.3) mg/dL Magnesium 2.7 H (1.5-2.4) mg/dL Microbiology - Last 24 Hours (Table) 04/17/24 12:20 Gram Stain - Final Sputum Sputum Culture - Final Jenae albicans Assessment and Plan Assessment: Acute hypoxic respiratory failure secondary to an acute exacerbation of systolic congestive heart failure Acute cellulitis of right foot with previous amputation of big toe and second toe, culture revealed no growth History of peripheral vessel occlusive disease and previous stenting of right SFA and right popliteal artery Severe pulmonary hypertension Paroxysmal atrial fibrillation, anticoagulated with Eliquis History of CVA with residual dysphagia requiring PEG tube placement Type 2 diabetes Acute on chronic kidney disease, baseline creatinine is in the range of 2.0 since 2019 Hyperkalemia secondary to above Hypernatremia Chronic and ongoing tobacco dependence Plan: The patient was seen and evaluated Labs and medications reviewed Electrolytes being corrected Titrate down the FiO2 as tolerated Remains on Glucerna via PEG tube feedings Plan will be for home with home care at discharge I have personally seen and examined the patient, performed the documentation and the assessment and plan as written. Number of minutes spent on the visit: 10.
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
[2024-04-20 16:52] LABS: Glucose,Whole Blood 130 mg/dL (70-110)
--- NOTE | 2024-04-20 17:05 | P.PN ---
Subjective Progress Note Date: 04/20/24 Everett Juárez, is a 63-year-old male who presented to [facility] emergency room with a chief complaint of worsening shortness of breath and generalized weakness, patient was recently admitted to [facility] with peripheral vascular disease right foot osteomyelitis and underwent stenting of the right SFA by Dr. Dillard, he has a previous history of right great toe amputation. He was evaluated in the emergency room vital examination on presentation revealed a temperature of 98.9 pulse 110 respiration 18 blood pressure 114/72 pulse ox 96% on room air Laboratory data reveals a white blood count of 8.7 hemoglobin 11.4 platelet count 283 sodium 139 potassium 4.9 chloride 110 CO2 23 BUN 41 creatinine 2.01 D- dimer was elevated at 2.10, troponin level was elevated at 0.043 Testing in the emergency room revealed chest x-ray done in the emergency room revealed cardiomegaly and mild pulmonary vascular congestion suggestive of congestive heart failure, VQ scan showed no evidence for pulmonary embolism, EKG revealed atrial fibrillation with moderate T wave abnormalities suggestive of lateral ischemia. Patient was admitted to medical floor for further evaluation and treatment Past medical history is significant for history of atrial fibrillation, history of peripheral arterial disease with previous history of right great toe amputation, history of COPD, history of diabetes mellitus type 2, history of hyperkalemia, history of chronic kidney disease. On review of systems patient is alert and oriented x 3 in no apparent distress, he is complaining of generalized weakness, complaining of shortness of breath, which is worse with activity, and complaining of right foot pain, otherwise he denies any complaints, there is no fever or chills no headache or dizziness no chest pain, no cough no nausea or vomiting no abdominal pain no diarrhea and no urinary symptoms On 04/14/2024 patient is alert and oriented 3.Patient remains on IV Unasyn and IV Lasix. 2-D echo completed showing an EF of 35-40%. Current vital signs temp 98.3, heart 81, respiratory rate 18, blood pressure 135/67 with a pulse ox of 100% on 3 L. Patient reports improvement with shortness of breath. Patient denies nausea vomiting or diarrhea. Patient denies any urinary burning or frequency On 04/15/2024 Patient is alert and oriented 3. Patient remains on IV Unasyn. Patient has been transitioned to by mouth Lasix.Current vital signs temp 97.1, heart rate 98, respiratory rate 18, blood pressure 121/79 with pulse ox 96% on 3 L. Patient denies chest pain or shortness breath. Patient denies nausea vomiting or diarrhea. Patient denies any urinary burning or frequency. On 04/16/2024 he is alert and oriented x 3 in no apparent distress he reports improvement in his shortness of breath there is no fever or chills no headache or dizziness no chest pain no cough no nausea or vomiting no abdominal pain no diarrhea and no urinary symptoms. On 04/17/2024 patient is alert and oriented x 3. Current vital signs Temp 98.1, heart rate 100, respiratory rate 16, blood pressure 153/81 with a pulse ox of 97% on 2 L. Patient remains on IV Unasyn. Awaiting final antibiotic recommenda tions per ID. Patient denies chest pain or shortness of breath. Patient denies nausea vomiting or diarrhea. Patient denies any urinary burning or frequency. On 04/18/2024 patient was seen and examined on the medical floor he is alert and oriented x 3 in no apparent distress there is no fever or chills no headache or dizziness no chest pain no shortness of breath no cough no nausea or vomiting no abdominal pain no diarrhea no urinary symptoms, he is still maintained on oxygen supplements, patient need to be assessed for need for home oxygen, he is also maintained on tube feeding, upper caser is working on arrangement for tube feeding at home. Otherwise continue with current management will recheck in a.m.. On 04/19/2024 patient is alert and oriented x 3. Patient is maintained on 3 L n roberth cannula. Patient also maintained on IV Unasyn. Awaiting final IV recommendations from infectious disease. Current vital signs Temp 98.2, heart rate 82, blood pressure 116/70 with a pulse ox of 97% on 3 L patient denies chest pain or shortness of breath. Patient denies nausea vomiting or diarrhea. Patient denies any urinary burning or frequency On 04/20/2024 patient was seen and examined on the medical floor he is alert and oriented x 3 in no apparent distress, there is no fever or chills no headache or dizziness no chest pain no shortness of breath no cough no nausea or vomiting no abdominal pain no diarrhea no urinary symptoms, patient is still having difficulty with hyperkalemia, he is maintained on IV fluids and [facility] are following, will recheck labs in a.m. Objective - Vital Signs Vital signs: Vital Signs Temp 98.1 F 04/20/24 14:00 Pulse 75 04/20/24 14:00 Resp 20 04/20/24 14:00 BP 122/80 04/20/24 14:00 Pulse Ox 100 04/20/24 14:00 FiO2 Intake & Output 04/19/24 04/20/24 04/20/24 18:59 06:59 18:59 Output Total 1500 400 Balance -1500 -400 Weight 97 kg Output: Urine 1500 400 Other: Voiding Method Urinal # Bowel Movements 1 - Exam In general patient is alert and oriented x 3 in no distress HEENT head normocephalic and atraumatic Neck is supple no JVD no goiter no lymphadenopathy no carotid bruit Chest examination reveals a scattered crackles in both lung [place] no wheezing Cardiac exam reveals irregular heart sounds S1 and S2 no gallops no murmurs Abdomen is soft nontender no organomegaly with normal bowel sounds Extremity exam reveals no edema no cyanosis or clubbing, the right great toe is amputated with a large ulcer at the base of the amputated right great toe with p urulent discharge Neurological examination reveals no gross focal deficits - Labs CBC & Chem 7: 04/19/24 03:07 04/20/24 05:25 Labs: Abnormal Lab Results - Last 24 Hours (Table) 04/19/24 04/19/24 04/20/24 Range/Units 17:10 18:05 05:25 Potassium 5.6 H (3.5-5.5) mmol/L BUN 89.7 H (9.0-27.0) mg/dL Creatinine 2.4 H (0.6-1.5) mg/dL Est GFR (CKD-EPI) 30 L (>=60) BUN/Creatinine Ratio 37.38 H (12.00-20.00) Ratio Glucose 120 H (70-110) mg/dL POC Glucose (mg/dL) 50 L 126 H (70-110) mg/dL Calcium 8.3 L (8.7-10.3) mg/dL Magnesium 2.7 H (1.5-2.4) mg/dL 04/20/24 04/20/24 Range/Units 06:19 11:22 Potassium (3.5-5.5) mmol/L BUN (9.0-27.0) mg/dL Creatinine (0.6-1.5) mg/dL Est GFR (CKD-EPI) (>=60) BUN/Creatinine Ratio (12.00-20.00) Ratio Glucose (70-110) mg/dL POC Glucose (mg/dL) 134 H 131 H (70-110) mg/dL Calcium (8.7-10.3) mg/dL Magnesium (1.5-2.4) mg/dL Assessment and Plan Plan: Worsening shortness of breath, multifactorial, possibly related to acute congestive heart failure, and underlying COPD Atrial fibrillation, with rapid ventricular response on presentation, heart rate was 110 New onset cardiomyopathy. Generalized weakness Large ulcer at the base of the right great toe with purulent discharge, patient was maintained on oral Augmentin as outpatient, infectious disease consultation requested Underlying history of peripheral arterial disease, with recent history of angioplasty and stent placement to the right lower extremity Underlying history of diabetes mellitus Underlying history of chronic obstructive pulmonary disease Underlying history of chronic kidney disease Underlying history of hyperkalemia Underlying history of chronic continued tobacco abuse At this time patient is admitted to telemetry floor Home medications reviewed and reordered Consultation for cardiology and pulmonary were requested in the emergency room For DVT prophylaxis, patient is maintained on Eliquis Will add infectious disease consultation in regard to base of right great toe ulcer Will follow closely
--- NOTE | 2024-04-20 18:01 | P.PN ---
Subjective Progress Note Date: 04/20/24 Principal diagnosis: Reason for follow-up is right foot wound and cellulitis Patient is a 63-year-old male with a past medical history significant for diabetes mellitus hypertension hyperlipidemia pneumonia CVA TIA COPD patient did have a right big toe amputation done by and was recently admitted to the hospital concerning for pain to the right foot and cold feeling patient has been diagnosed with PAD and is s/p peripheral intervention by interventional cardiology with angioplasty of SFA and right popliteal arteries however unsuccessful angioplasty of the right anterior tibial artery patient presented to hospital with weakness hypoxemia. On today's evaluation that is 04/20/2024,the patient denies any fever or any chills, patient is breathing comfortably 2 L nasal cannula oxygen, the patient denies chest pain shortness of breath and no worsening cough or sputum production, patient denies abdominal pain, no nausea vomiting or diarrhea. Denies pain to the right foot wound. Patient creatinine 2.4 Objective - Vital Signs Vital signs: Vital Signs Temp 98.1 F 04/20/24 14:00 Pulse 75 04/20/24 14:00 Resp 20 04/20/24 14:00 BP 122/80 04/20/24 14:00 Pulse Ox 100 04/20/24 14:00 FiO2 Intake & Output 04/19/24 04/20/24 04/20/24 18:59 06:59 18:59 Output Total 1500 400 Balance -1500 -400 Weight 97 kg Output: Urine 1500 400 Other: Voiding Method Urinal # Bowel Movements 1 - Exam GENERAL DESCRIPTION: Middle-age male lying in bed in no distress RESPIRATORY SYSTEM: Unlabored breathing , decreased breath sounds at bases HEART: S1 S2 regular rate and rhythm , ABDOMEN: Soft , no tenderness EXTREMITIES: Right foot wound is currently dressed - Labs CBC & Chem 7: 04/19/24 03:07 04/20/24 05:25 Labs: Abnormal Lab Results - Last 24 Hours (Table) 04/19/24 04/20/24 04/20/24 Range/Units 18:05 05:25 06:19 Potassium 5.6 H (3.5-5.5) mmol/L BUN 89.7 H (9.0-27.0) mg/dL Creatinine 2.4 H (0.6-1.5) mg/dL Est GFR (CKD-EPI) 30 L (>=60) BUN/Creatinine Ratio 37.38 H (12.00-20.00) Ratio Glucose 120 H (70-110) mg/dL POC Glucose (mg/dL) 126 H 134 H (70-110) mg/dL Calcium 8.3 L (8.7-10.3) mg/dL Magnesium 2.7 H (1.5-2.4) mg/dL 04/20/24 04/20/24 Range/Units 11:22 16:45 Potassium (3.5-5.5) mmol/L BUN (9.0-27.0) mg/dL Creatinine (0.6-1.5) mg/dL Est GFR (CKD-EPI) (>=60) BUN/Creatinine Ratio (12.00-20.00) Ratio Glucose (70-110) mg/dL POC Glucose (mg/dL) 131 H 130 H (70-110) mg/dL Calcium (8.7-10.3) mg/dL Magnesium (1.5-2.4) mg/dL Assessment and Plan (1) Cellulitis of right foot Current Visit: No Status: Acute Code(s): L03.115 - CELLULITIS OF RIGHT LOWER LIMB SNOMED Code(s): 59679479061578662 (2) Diabetic foot ulcer Current Visit: No Status: Acute Code(s): E11.621 - TYPE 2 DIABETES MELLITUS WITH FOOT ULCER; L97.509 - NON-PRESSURE CHRONIC ULCER OTH PRT UNSP FOOT W UNSP SEVERITY SNOMED Code(s): 490986362 Plan: 1patient presenting to the hospital mostly with generalized weakness low O2 sats possibly underlying cardiac etiology for the patient being managed by cardiology, patient also have a nonhealing wound to the right big toe amputation site with recent peripheral intervention and angioplasty overall wound base with minimal slough tissue no significant surrounding redness or foul-smelling drainage clinic suspicion is low for any worsening cellulitis or wound infection . 2patient is afebrile with white count is normal right foot wound culture negative, sputum culture currently growing Jenae which is more likely colonizer 3- patient remains to be afebrile white count is normal, continue with the Unasyn while inpatient Dictation was produced using [employer] dictation software. please excuse any grammatical, word or spelling errors. Time with Patient: Less than 30
[2024-04-20 23:06] LABS: Glucose,Whole Blood 123 mg/dL (70-110)
[2024-04-21 05:59] LABS: Glucose,Whole Blood 135 mg/dL (70-110)
[2024-04-21 08:56] LABS: ALT 14 U/L (10-49); AST 18 U/L (14-35); Albumin 3.3 g/dL (3.8-4.9); Albumin/Globulin Ratio 1.43 Ratio (1.60-3.17); Alkaline Phosphatase 69 U/L (41-126); BUN/Creat Ratio 40.96 Ratio (12.00-20.00); Blood Urea Nitrogen 98.3 mg/dL (9.0-27.0); Carbon Dioxide 29.2 mmol/L (21.6-31.8); Chloride 103 mmol/L (96-109); Globulin 2.3 g/dL (1.6-3.3); Glucose 127 mg/dL (70-110); Magnesium 2.8 mg/dL (1.5-2.4); Potassium 5.9 mmol/L (3.5-5.5); Sodium 143 mmol/L (135-145); Total Bilirubin 0.2 mg/dL (0.3-1.2); Total Protein 5.6 g/dL (6.2-8.2)
[2024-04-21 09:23] LABS: MCH 31.3 pg (27.0-32.0); MCHC 29.5 g/dL (32.0-37.0); MCV 105.8 FL (80.0-97.0); Mean Platelet Volume 11.5 FL (9.5-12.2); NRBC Per 100 WBC 0.06 X 10*3/uL (0.00-0.01); Platelet Count 304 X 10*3/uL (140-440); RBC 2.08 X 10*6/uL (4.40-5.60); RDW 14.9 % (11.5-14.5); WBC 10.53 X 10*3/uL (4.50-10.00)
--- NOTE | 2024-04-21 10:40 | P.PN ---
Subjective Progress Note Date: 04/21/24 Everett Juárez, is a 63-year-old male who presented to [facility] emergency room with a chief complaint of worsening shortness of breath and generalized weakness, patient was recently admitted to [facility] with peripheral vascular disease right foot osteomyelitis and underwent stenting of the right SFA by Dr. Dillard, he has a previous history of right great toe amputation. He was evaluated in the emergency room vital examination on presentation revealed a temperature of 98.9 pulse 110 respiration 18 blood pressure 114/72 pulse ox 96% on room air Laboratory data reveals a white blood count of 8.7 hemoglobin 11.4 platelet count 283 sodium 139 potassium 4.9 chloride 110 CO2 23 BUN 41 creatinine 2.01 D- dimer was elevated at 2.10, troponin level was elevated at 0.043 Testing in the emergency room revealed chest x-ray done in the emergency room revealed cardiomegaly and mild pulmonary vascular congestion suggestive of congestive heart failure, VQ scan showed no evidence for pulmonary embolism, EKG revealed atrial fibrillation with moderate T wave abnormalities suggestive of lateral ischemia. Patient was admitted to medical floor for further evaluation and treatment Past medical history is significant for history of atrial fibrillation, history of peripheral arterial disease with previous history of right great toe amputation, history of COPD, history of diabetes mellitus type 2, history of hyperkalemia, history of chronic kidney disease. On review of systems patient is alert and oriented x 3 in no apparent distress, he is complaining of generalized weakness, complaining of shortness of breath, which is worse with activity, and complaining of right foot pain, otherwise he denies any complaints, there is no fever or chills no headache or dizziness no chest pain, no cough no nausea or vomiting no abdominal pain no diarrhea and no urinary symptoms On 04/14/2024 patient is alert and oriented 3.Patient remains on IV Unasyn and IV Lasix. 2-D echo completed showing an EF of 35-40%. Current vital signs temp 98.3, heart 81, respiratory rate 18, blood pressure 135/67 with a pulse ox of 100% on 3 L. Patient reports improvement with shortness of breath. Patient denies nausea vomiting or diarrhea. Patient denies any urinary burning or frequency On 04/15/2024 Patient is alert and oriented 3. Patient remains on IV Unasyn. Patient has been transitioned to by mouth Lasix.Current vital signs temp 97.1, heart rate 98, respiratory rate 18, blood pressure 121/79 with pulse ox 96% on 3 L. Patient denies chest pain or shortness breath. Patient denies nausea vomiting or diarrhea. Patient denies any urinary burning or frequency. On 04/16/2024 he is alert and oriented x 3 in no apparent distress he reports improvement in his shortness of breath there is no fever or chills no headache or dizziness no chest pain no cough no nausea or vomiting no abdominal pain no diarrhea and no urinary symptoms. On 04/17/2024 patient is alert and oriented x 3. Current vital signs Temp 98.1, heart rate 100, respiratory rate 16, blood pressure 153/81 with a pulse ox of 97% on 2 L. Patient remains on IV Unasyn. Awaiting final antibiotic recommenda tions per ID. Patient denies chest pain or shortness of breath. Patient denies nausea vomiting or diarrhea. Patient denies any urinary burning or frequency. On 04/18/2024 patient was seen and examined on the medical floor he is alert and oriented x 3 in no apparent distress there is no fever or chills no headache or dizziness no chest pain no shortness of breath no cough no nausea or vomiting no abdominal pain no diarrhea no urinary symptoms, he is still maintained on oxygen supplements, patient need to be assessed for need for home oxygen, he is also maintained on tube feeding, case aide is working on arrangement for tube feeding at home. Otherwise continue with current management will recheck in a.m.. On 04/19/2024 patient is alert and oriented x 3. Patient is maintained on 3 L n roberth cannula. Patient also maintained on IV Unasyn. Awaiting final IV recommendations from infectious disease. Current vital signs Temp 98.2, heart rate 82, blood pressure 116/70 with a pulse ox of 97% on 3 L patient denies chest pain or shortness of breath. Patient denies nausea vomiting or diarrhea. Patient denies any urinary burning or frequency On 04/20/2024 patient was seen and examined on the medical floor he is alert and oriented x 3 in no apparent distress, there is no fever or chills no headache or dizziness no chest pain no shortness of breath no cough no nausea or vomiting no abdominal pain no diarrhea no urinary symptoms, patient is still having difficulty with hyperkalemia, he is maintained on IV fluids and [facility] are following, will recheck labs in a.m. On 04/21/2024 patient is alert and oriented x 3. Potassium remains elevated at 5.9 awaiting further recommendations from nephrology standpoint. Patient denies chest pain or shortness of breath. Patient denies nausea vomiting or diarrhea. Patient denies any urinary burning or frequency Objective - Vital Signs Vital signs: Vital Signs Temp 97.7 F 04/21/24 07:20 Pulse 88 04/21/24 09:27 Resp 20 04/21/24 07:20 BP 114/76 04/21/24 07:20 Pulse Ox 98 04/21/24 07:20 FiO2 Intake & Output 04/20/24 04/21/24 04/21/24 18:59 06:59 18:59 Output Total 550 650 Balance -550 -650 Weight 97 kg Output: Urine 550 650 Other: Voiding Method Toilet # Bowel Movements 1 - Exam In general patient is alert and oriented x 3 in no distress HEENT head normocephalic and atraumatic Neck is supple no JVD no goiter no lymphadenopathy no carotid bruit Chest examination reveals a scattered crackles in both lung [place] no wheezing Cardiac exam reveals irregular heart sounds S1 and S2 no gallops no murmurs Abdomen is soft nontender no organomegaly with normal bowel sounds Extremity exam reveals no edema no cyanosis or clubbing, the right great toe is amputated with a large ulcer at the base of the amputated right great toe with purulent discharge Neurological examination reveals no gross focal deficits - Labs CBC & Chem 7: 04/21/24 05:26 04/21/24 05:26 Labs: Abnormal Lab Results - Last 24 Hours (Table) 04/20/24 04/20/24 04/20/24 Range/Units 11:22 16:45 23:04 WBC (4.50-10.00) X 10*3/uL RBC (4.40-5.60) X 10*6/uL Hgb (13.0-17.0) g/dL Hct (39.6-50.0) % MCV (80.0-97.0) FL MCHC (32.0-37.0) g/dL RDW (11.5-14.5) % NRBC/100 WBC Diff (0.00-0.01) X 10*3/uL Potassium (3.5-5.5) mmol/L BUN (9.0-27.0) mg/dL Creatinine (0.6-1.5) mg/dL Est GFR (CKD-EPI) (>=60) BUN/Creatinine Ratio (12.00-20.00) Ratio Glucose (70-110) mg/dL POC Glucose (mg/dL) 131 H 130 H 123 H (70-110) mg/dL Calcium (8.7-10.3) mg/dL Magnesium (1.5-2.4) mg/dL Total Bilirubin (0.3-1.2) mg/dL Total Protein (6.2-8.2) g/dL Albumin (3.8-4.9) g/dL Albumin/Globulin Ratio (1.60-3.17) Ratio 04/21/24 04/21/24 04/21/24 Range/Units 05:26 05:26 05:56 WBC 10.53 H (4.50-10.00) X 10*3/uL RBC 2.08 L (4.40-5.60) X 10*6/uL Hgb 6.5 A* (13.0-17.0) g/dL Hct 22.0 L (39.6-50.0) % MCV 105.8 H (80.0-97.0) FL MCHC 29.5 L (32.0-37.0) g/dL RDW 14.9 H (11.5-14.5) % NRBC/100 WBC Diff 0.06 H (0.00-0.01) X 10*3/uL Potassium 5.9 H (3.5-5.5) mmol/L BUN 98.3 H (9.0-27.0) mg/dL Creatinine 2.4 H (0.6-1.5) mg/dL Est GFR (CKD-EPI) 30 L (>=60) BUN/Creatinine Ratio 40.96 H (12.00-20.00) Ratio Glucose 127 H (70-110) mg/dL POC Glucose (mg/dL) 135 H (70-110) mg/dL Calcium 8.0 L (8.7-10.3) mg/dL Magnesium 2.8 H (1.5-2.4) mg/dL Total Bilirubin 0.2 L (0.3-1.2) mg/dL Total Protein 5.6 L (6.2-8.2) g/dL Albumin 3.3 L (3.8-4.9) g/dL Albumin/Globulin Ratio 1.43 L (1.60-3.17) Ratio Assessment and Plan Plan: Worsening shortness of breath, multifactorial, possibly related to acute c ongestive heart failure, and underlying COPD Atrial fibrillation, with rapid ventricular response on presentation, heart rate was 110 New onset cardiomyopathy. Generalized weakness Large ulcer at the base of the right great toe with purulent discharge, patient was maintained on oral Augmentin as outpatient, infectious disease consultation requested Underlying history of peripheral arterial disease, with recent history of angioplasty and stent placement to the right lower extremity Underlying history of diabetes mellitus Underlying history of chronic obstructive pulmonary disease Underlying history of chronic kidney disease Underlying history of hyperkalemia Underlying history of chronic continued tobacco abuse At this time patient is admitted to telemetry floor Home medications reviewed and reordered Consultation for cardiology and pulmonary were requested in the emergency room For DVT prophylaxis, patient is maintained on Eliquis Will add infectious disease consultation in regard to base of right great toe ulcer Will follow closely
[2024-04-21 11:40] LABS: Basophils # (A) 0.12 X 10*3/uL (0.00-0.10); Basophils % (A) 1.1 %; Eosinophils # (A) 0.49 X 10*3/uL (0.04-0.35); Eosinophils % (A) 4.7 %; HGB 6.5 g/dL (13.0-17.0); Lymphocytes # (A) 1.48 X 10*3/uL (0.90-5.00); Lymphocytes % (A) 14.1 %; Monocytes # (A) 0.88 X 10*3/uL (0.20-1.00); Monocytes % (A) 8.4 %; Neutrophils # (A) 7.48 X 10*3/uL (1.80-7.70); Neutrophils % (A) 70.9 %; RBC Morphology Normal (Normal)
[2024-04-21 12:04] LABS: Anisocytosis Slight; HCT 22.2 % (39.0-53.0); Hypochromasia Marked; MCH 32.7 pg (25.0-35.0); MCHC 30.9 g/dL (31.0-37.0); MCV 105.9 fL (80.0-100.0); Macrocytosis Moderate; Mean Platelet Volume 9.6; Platelet Count 324 k/uL (150-450); RBC 2.09 m/uL (4.30-5.90); RDW 16.1 % (11.5-15.5)
[2024-04-21 12:07] LABS: HGB 6.8 gm/dL (13.0-17.5)
[2024-04-21] MEDS: DEXTROSE 50% SYRINGE 50 ML IVP STA ×2 (12:09→20:31)
[2024-04-21] MEDS: INSULIN REGULAR 100 UNIT/ML VIAL (IV) IV ONE ×2 (12:10→20:32)
[2024-04-21] MEDS: SODIUM ZIRCONIUM CYCLOSILICATE 10 GM PACKET PO SCH (12:10)
[2024-04-21 12:28] LABS: Glucose,Whole Blood 262 mg/dL (70-110)
[2024-04-21 12:30] LABS: Eosinophils # (M) 0.44 k/uL (0-0.7); Lymphocytes # (M) 1.32 k/uL (1.0-4.8); Monocytes # (M) 0.44 k/uL (0-1.0); Neutrophils % (M) 80 %; Nucleated Red Blood Cells 0 /100 WBC (0-0); Total Cells Counted 100
--- NOTE | 2024-04-21 13:31 | P.PN ---
Subjective Patient is seen in follow-up for acute kidney injury on chronic kidney disease. Renal function stable. Hemoglobin 6.5 and on repeat was 6.8. No active bleeding per nurse. Has been voiding. Denies chest pain or shortness of breath. Vital signs are stable. General: No acute distress. HEENT: Head exam is unremarkable. LUNGS: No audible rhonchi or wheezes. HEART: Rate and Rhythm are regular. ABDOMEN: Obese, nontender. PEG tube noted. EXTREMITITES: No edema. Objective - Vital Signs Vital signs: Vital Signs Temp 97.7 F 04/21/24 07:20 Pulse 88 04/21/24 09:27 Resp 20 04/21/24 07:20 BP 114/76 04/21/24 07:20 Pulse Ox 98 04/21/24 07:20 FiO2 Intake & Output 04/20/24 04/21/24 04/21/24 18:59 06:59 18:59 Output Total 550 650 Balance -550 -650 Weight 97 kg Output: Urine 550 650 Other: Voiding Method Toilet # Bowel Movements 1 - Labs CBC & Chem 7: 04/21/24 11:22 04/21/24 05:26 Labs: Abnormal Lab Results - Last 24 Hours (Table) 04/20/24 04/20/24 04/21/24 Range/Units 16:45 23:04 05:26 WBC 10.53 H (4.50-10.00) X 10*3/uL RBC 2.08 L (4.40-5.60) X 10*6/uL Hgb 6.5 A* (13.0-17.0) g/dL Hct 22.0 L (39.6-50.0) % MCV 105.8 H (80.0-97.0) FL MCHC 29.5 L (32.0-37.0) g/dL RDW 14.9 H (11.5-14.5) % Immature Gran # 0.08 H (0.00-0.04) X 10*3/uL Neutrophils # (Manual) (1.3-7.7) k/uL Eosinophils # 0.49 H (0.04-0.35) X 10*3/uL Basophils # 0.12 H (0.00-0.10) X 10*3/uL NRBC/100 WBC Diff 0.06 H (0.00-0.01) X 10*3/uL Potassium (3.5-5.5) mmol/L BUN (9.0-27.0) mg/dL Creatinine (0.6-1.5) mg/dL Est GFR (CKD-EPI) (>=60) BUN/Creatinine Ratio (12.00-20.00) Ratio Glucose (70-110) mg/dL POC Glucose (mg/dL) 130 H 123 H (70-110) mg/dL Calcium (8.7-10.3) mg/dL Magnesium (1.5-2.4) mg/dL Total Bilirubin (0.3-1.2) mg/dL Total Protein (6.2-8.2) g/dL Albumin (3.8-4.9) g/dL Albumin/Globulin Ratio (1.60-3.17) Ratio 04/21/24 04/21/24 04/21/24 Range/Units 05:26 05:56 11:22 WBC 11.0 H (4.50-10.00) X 10*3/uL RBC 2.09 L (4.40-5.60) X 10*6/uL Hgb 6.8 L* D (13.0-17.0) g/dL Hct 22.2 L (39.6-50.0) % MCV 105.9 H (80.0-97.0) FL MCHC 30.9 L (32.0-37.0) g/dL RDW 16.1 H (11.5-14.5) % Immature Gran # (0.00-0.04) X 10*3/uL Neutrophils # (Manual) 8.80 H (1.3-7.7) k/uL Eosinophils # (0.04-0.35) X 10*3/uL Basophils # (0.00-0.10) X 10*3/uL NRBC/100 WBC Diff (0.00-0.01) X 10*3/uL Potassium 5.9 H (3.5-5.5) mmol/L BUN 98.3 H (9.0-27.0) mg/dL Creatinine 2.4 H (0.6-1.5) mg/dL Est GFR (CKD-EPI) 30 L (>=60) BUN/Creatinine Ratio 40.96 H (12.00-20.00) Ratio Glucose 127 H (70-110) mg/dL POC Glucose (mg/dL) 135 H (70-110) mg/dL Calcium 8.0 L (8.7-10.3) mg/dL Magnesium 2.8 H (1.5-2.4) mg/dL Total Bilirubin 0.2 L (0.3-1.2) mg/dL Total Protein 5.6 L (6.2-8.2) g/dL Albumin 3.3 L (3.8-4.9) g/dL Albumin/Globulin Ratio 1.43 L (1.60-3.17) Ratio // Range/Units 12:26 WBC (4.50-10.00) X 10*3/uL RBC (4.40-5.60) X 10*6/uL Hgb (13.0-17.0) g/dL Hct (39.6-50.0) % MCV (80.0-97.0) FL MCHC (32.0-37.0) g/dL RDW (11.5-14.5) % Immature Gran # (0.00-0.04) X 10*3/uL Neutrophils # (Manual) (1.3-7.7) k/uL Eosinophils # (0.04-0.35) X 10*3/uL Basophils # (0.00-0.10) X 10*3/uL NRBC/100 WBC Diff (0.00-0.01) X 10*3/uL Potassium (3.5-5.5) mmol/L BUN (9.0-27.0) mg/dL Creatinine (0.6-1.5) mg/dL Est GFR (CKD-EPI) (>=60) BUN/Creatinine Ratio (12.00-20.00) Ratio Glucose (70-110) mg/dL POC Glucose (mg/dL) 262 H (70-110) mg/dL Calcium (8.7-10.3) mg/dL Magnesium (1.5-2.4) mg/dL Total Bilirubin (0.3-1.2) mg/dL Total Protein (6.2-8.2) g/dL Albumin (3.8-4.9) g/dL Albumin/Globulin Ratio (1.60-3.17) Ratio Assessment and Plan Plan: Assessment: 1. Acute kidney injury secondary to ATN. Creatinine near 2 this admission and is stable at 2.4 today. No hydronephrosis noted on kidney ultrasound. UA fairly benign. 2. Chronic kidney disease stage IV baseline creatinine 1.8-2 secondary to solitary right kidney. History of left nephrectomy. 3. Chronic systolic CHF ejection fraction of 35 to 40% with severe pulmonary hypertension. 4. Diabetes mellitus. 5. Hypernatremia from lack of oral water intake. Improved. 6. Hyperkalemia secondary to acute kidney injury. Questionable GI bleed as well. 7. Peripheral vascular disease. 8. Acute blood loss anemia with hemoglobin 6.8 today. No active bleeding. Plan: Maintain tube feeds. Use low potassium in tube feeds. Discussed with RN. Hep-Lock IV fluids. Resume Lokelma. 10 units IV regular insulin with an amp of D50 now. Continue to hold Lasix. Avoid nephrotoxins. Repeat potassium level this afternoon. IV DDAVP x 1 dose today. Add Aranesp. Blood transfusion pending.
--- NOTE | 2024-04-21 13:41 | P.PN ---
Subjective Progress Note Date: 04/21/24 This is a 63-year-old white male with history of multiple medical problems including coronary artery disease, chronic atrial fibrillation, peripheral vessel occlusive disease, severe pulmonary hypertension, chronic obstructive pulmonary disease, patient normally sees Dr. Dillard on outpatient basis. 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 Admitted this time with few days history of increased shortness of breath, and according to the his O2 saturation was down in the 60s. Patient was brought into the ER, chest x-ray showed evidence of pulmonary edema, VQ scan negative for pulmonary embolism, patient was admitted and this consult was initiated. Patient is not a great historian, most of the information was obtained from his , apparently the patient had history of CVA in the past, and he had a previous PEG tube placement Labs on admission showed relatively normal CBC, no leukocytosis, D-dimer was a bit elevated at 2.10 and renal profile was abnormal with BUN of 43 and creatinine 2. 01 however BNP level was 12,300 and troponin was 0.043. Since admission, the patient received 1 dose of Lasix, and he is at least 1.5 L negative fluid balance The patient is seen today April 14, 2024 in follow-up on the selective care unit. He is currently sitting up at the bedside. Awake and alert in no acute distress. Breathing a bit easier today compared to yesterday. Currently maintaining good O2 saturations in the upper 90s on 3 L/min per nasal cannula. He is afebrile. Hemodynamically stable. Echocardiogram reveals impaired left ventricular systolic function with an ejection fraction of 35 to 40%. Severe pulmonary hypertension. Moderate to severely dilated left atrium. Right first toe culture is pending. Currently on Unasyn. Glucose 125. Being nourished with Glucerna at 51 MLS per hour via his PEG tube. Anticoagulated with Eliquis. Remains on diuretics. Making adequate urine. The patient is seen today April 15, 2024 in follow-up on the selective care unit. He is awake and alert in no acute distress. Maintaining O2 saturations in the 90s on 3 L/min per nasal cannula. Hemodynamically stable. White count 8.4. Hemoglobin 11.2. Platelets 321. Sodium 143. Potassium 4.9. Bicarb 29. BUN 45. Creatinine 1.99. Glucose 126. He is continued on Unasyn. Anticoagulated with Eliquis. Remains on bronchodilators. Remains on oral diuretics. Continued on Glucerna via his PEG tube. Barium swallow is pending so the patient can continue on tube feedings in the outpatient setting Patient was evaluated today on 04/16/2024, patient is doing well, comfortable, not in any distress, on 3 L nasal cannula with O2 sats of 96%. WBC is 8.5 hemoglobin 10.5 electrolytes are relatively normal with potassium of 5.2 BUN is 48 creatinine 1.94, steadily improving since admission patient had a successful swallow evaluation study that came back unremarkable. The patient was seen today April 17, 2024 in follow-up on the selective care unit. He is currently resting comfortably in bed. Awake and alert in no acute distress. Maintaining O2 saturations in the 90s on 2 L/min per nasal cannula. Right foot culture results revealing no growth. White count 9.6. Hemoglobin 1 0.9. Platelets 305. Sodium 145. Potassium 5.4. Bicarb 32. BUN 56. Creatinine 1.99. Glucose 133. He remains on bronchodilators. Anticoagulated with Eliquis. Antibiotics in the form of Unasyn. Remains on Glucerna tube feedings. The patient is seen today April 18, 2024 in follow-up on the regular medical floor. He is currently sitting up at the bedside. Awake and alert in no acute distress. Maintaining O2 saturations in the 90s on 2 L/min per nasal cannula. He has been afebrile. Hemodynamically stable. He remains on Glucerna at 51 mL/h which is goal. He remains on antibiotics in the form of Unasyn. His right foot dressing is dry and intact. Glucose 140. He remains on bronchodilators. Oral diuretics. Anticoagulated with Eliquis. The patient is seen today April 19, 2024 in follow-up on the regular medical floor. He is currently sitting up in bed. Awake and alert in no acute distress. He is maintaining good O2 saturations in the 90s on 3 L/min per nasal cannula. He remains on antibiotics in the form of Unasyn. He is being nourished with Glucerna at 51 mL/h which is his goal. He is continued on bronchodilators. Anticoagulated with Eliquis. Normal saline at 100 MLS per hour. White count 10.8. Hemoglobin 9.2. Platelets 307. Sodium 147. Potassium 6.3. BUN 84. Creatinine 2.3. Glucose 105. The patient is seen today April 20, 2024 in follow-up on the regular medical floor. He is currently sitting up at the bedside. Awake and alert in no acute distress. Maintaining good O2 saturations in the 90s on 4 L/min per nasal cannula. He remains on Glucerna at 51 mL/h which is goal. 0.45% normal saline at 75 MLS per hour. Potassium 5.6. Bicarb 30. BUN 90. Creatinine 2.4. Glucose 120. He received Lokelma yesterday for his hyperkalemia. Right foot cultures revealed no growth. Sputum culture revealed Jenae. He continues on Unasyn per ID service. He remains on bronchodilators. Anticoagulated with Eliquis. Remains on oral diuretics. The patient is seen today April 21, 2024 in follow-up on the regular medical floor. He is awake and alert in no acute distress. Sitting up at the bedside. Denies any worsening shortness of breath, cough or congestion. Continues to maintain good O2 saturations in the upper 90s on 4 L/min per nasal cannula. He is afebrile. Hemodynamically stable. White count 11.0. Hemoglobin 6.8. Platelets 324. Sodium 143. Potassium 5.9. Bicarb 29. BUN 98. Creatinine 2.4. Glucose 127. Nephrology is following. He remains on bronchodilators and Unasyn. Objective - Vital Signs Vital signs: Vital Signs Temp 97.7 F 04/21/24 07:20 Pulse 88 04/21/24 09:27 Resp 20 04/21/24 07:20 BP 114/76 04/21/24 07:20 Pulse Ox 98 04/21/24 07:20 FiO2 Intake & Output 04/20/24 04/21/24 04/21/24 18:59 06:59 18:59 Output Total 550 650 Balance -550 -650 Weight 97 kg Output: Urine 550 650 Other: Voiding Method Toilet # Bowel Movements 1 - Exam GENERAL EXAM: Alert, 63-year-old male, on 4 L nasal cannula, in no apparent distress. HEAD: Normocephalic. EYES: Normal reaction of pupils, equal size. NOSE: Clear with pink turbinates. THROAT: No erythema or exudates. NECK: No masses, no JVD. CHEST: No chest wall deformity. LUNGS: Equal air entry with no crackles, wheeze, rhonchi or dullness. CVS: S1 and S2 normal with no audible murmur, regular rhythm. ABDOMEN: PEG tube exit site clean and dry. No hepatosplenomegaly, normal bowel sounds, no guarding or rigidity. SPINE: No scoliosis or deformity SKIN: Evidence of purulent drainage noted at the site of a previous amputation of the big toe and second toe on the right foot CENTRAL NERVOUS SYSTEM: No focal deficits, tone is normal in all 4 extremities. EXTREMITIES: Right foot dressing dry and intact. There is no peripheral edema. Peripheral pulses are intact. - Labs CBC & Chem 7: 04/21/24 11:22 04/21/24 05:26 Labs: Abnormal Lab Results - Last 24 Hours (Table) 04/20/24 04/20/24 04/21/24 Range/Units 16:45 23:04 05:26 WBC 10.53 H (4.50-10.00) X 10*3/uL RBC 2.08 L (4.40-5.60) X 10*6/uL Hgb 6.5 A* (13.0-17.0) g/dL Hct 22.0 L (39.6-50.0) % MCV 105.8 H (80.0-97.0) FL MCHC 29.5 L (32.0-37.0) g/dL RDW 14.9 H (11.5-14.5) % Immature Gran # 0.08 H (0.00-0.04) X 10*3/uL Neutrophils # (Manual) (1.3-7.7) k/uL Eosinophils # 0.49 H (0.04-0.35) X 10*3/uL Basophils # 0.12 H (0.00-0.10) X 10*3/uL NRBC/100 WBC Diff 0.06 H (0.00-0.01) X 10*3/uL Potassium (3.5-5.5) mmol/L BUN (9.0-27.0) mg/dL Creatinine (0.6-1.5) mg/dL Est GFR (CKD-EPI) (>=60) BUN/Creatinine Ratio (12.00-20.00) Ratio Glucose (70-110) mg/dL POC Glucose (mg/dL) 130 H 123 H (70-110) mg/dL Calcium (8.7-10.3) mg/dL Magnesium (1.5-2.4) mg/dL Total Bilirubin (0.3-1.2) mg/dL Total Protein (6.2-8.2) g/dL Albumin (3.8-4.9) g/dL Albumin/Globulin Ratio (1.60-3.17) Ratio 04/21/24 04/21/24 04/21/24 Range/Units 05:26 05:56 11:22 WBC 11.0 H (4.50-10.00) X 10*3/uL RBC 2.09 L (4.40-5.60) X 10*6/uL Hgb 6.8 L* D (13.0-17.0) g/dL Hct 22.2 L (39.6-50.0) % MCV 105.9 H (80.0-97.0) FL MCHC 30.9 L (32.0-37.0) g/dL RDW 16.1 H (11.5-14.5) % Immature Gran # (0.00-0.04) X 10*3/uL Neutrophils # (Manual) 8.80 H (1.3-7.7) k/uL Eosinophils # (0.04-0.35) X 10*3/uL Basophils # (0.00-0.10) X 10*3/uL NRBC/100 WBC Diff (0.00-0.01) X 10*3/uL Potassium 5.9 H (3.5-5.5) mmol/L BUN 98.3 H (9.0-27.0) mg/dL Creatinine 2.4 H (0.6-1.5) mg/dL Est GFR (CKD-EPI) 30 L (>=60) BUN/Creatinine Ratio 40.96 H (12.00-20.00) Ratio Glucose 127 H (70-110) mg/dL POC Glucose (mg/dL) 135 H (70-110) mg/dL Calcium 8.0 L (8.7-10.3) mg/dL Magnesium 2.8 H (1.5-2.4) mg/dL Total Bilirubin 0.2 L (0.3-1.2) mg/dL Total Protein 5.6 L (6.2-8.2) g/dL Albumin 3.3 L (3.8-4.9) g/dL Albumin/Globulin Ratio 1.43 L (1.60-3.17) Ratio 04/21/24 Range/Units 12:26 WBC (4.50-10.00) X 10*3/uL RBC (4.40-5.60) X 10*6/uL Hgb (13.0-17.0) g/dL Hct (39.6-50.0) % MCV (80.0-97.0) FL MCHC (32.0-37.0) g/dL RDW (11.5-14.5) % Immature Gran # (0.00-0.04) X 10*3/uL Neutrophils # (Manual) (1.3-7.7) k/uL Eosinophils # (0.04-0.35) X 10*3/uL Basophils # (0.00-0.10) X 10*3/uL NRBC/100 WBC Diff (0.00-0.01) X 10*3/uL Potassium (3.5-5.5) mmol/L BUN (9.0-27.0) mg/dL Creatinine (0.6-1.5) mg/dL Est GFR (CKD-EPI) (>=60) BUN/Creatinine Ratio (12.00-20.00) Ratio Glucose (70-110) mg/dL POC Glucose (mg/dL) 262 H (70-110) mg/dL Calcium (8.7-10.3) mg/dL Magnesium (1.5-2.4) mg/dL Total Bilirubin (0.3-1.2) mg/dL Total Protein (6.2-8.2) g/dL Albumin (3.8-4.9) g/dL Albumin/Globulin Ratio (1.60-3.17) Ratio Assessment and Plan Assessment: Acute hypoxic respiratory failure secondary to an acute exacerbation of systolic congestive heart failure Acute cellulitis of right foot with previous amputation of big toe and second toe, culture revealed no growth History of peripheral vessel occlusive disease and previous stenting of right SFA and right popliteal artery Severe pulmonary hypertension Paroxysmal atrial fibrillation, anticoagulated with Eliquis History of CVA with residual dysphagia requiring PEG tube placement Type 2 diabetes Acute on chronic kidney disease, baseline creatinine is in the range of 2.0 since 2019 Anemia suspect secondary to above, receiving 1 unit of packed red blood cells Hyperkalemia secondary to above Hypernatremia Chronic and ongoing tobacco dependence Plan: The patient was seen and evaluated Labs and medications reviewed Electrolytes being corrected Nephrology is following closely Receiving 1 unit of packed red blood cells today Titrate down the FiO2 as tolerated Remains on Glucerna via PEG tube feedings Plan will be for home with home care at discharge I have personally seen and examined the patient, performed the documentation and the assessment and plan as written. Number of minutes spent on the visit: 10.
--- NOTE | 2024-04-21 15:58 | P.PN ---
Subjective Progress Note Date: 04/21/24 Principal diagnosis: Reason for follow-up is right foot wound and cellulitis Patient is a 63-year-old male with a past medical history significant for diabetes mellitus hypertension hyperlipidemia pneumonia CVA TIA COPD patient did have a right big toe amputation done by and was recently admitted to the hospital concerning for pain to the right foot and cold feeling patient has been diagnosed with PAD and is s/p peripheral intervention by interventional cardiology with angioplasty of SFA and right popliteal arteries however unsuccessful angioplasty of the right anterior tibial artery patient presented to hospital with weakness hypoxemia. On today's evaluation that is 04/21/2024,the patient remains to be afebrile, patient is on 4 L nasal cannula supplemental oxygen and denies any shortness of breath no chest pain or cough.Patient denies having any nausea or vomiting, no abdominal pain and no diarrhea has been reported denies pain to the right foot 1. Patient white count is 11, hemoglobin is 6.8 Objective - Vital Signs Vital signs: Vital Signs Temp 97.8 F 04/21/24 14:55 Pulse 70 04/21/24 14:55 Resp 18 04/21/24 14:55 BP 124/66 04/21/24 14:55 Pulse Ox 93 L 04/21/24 14:55 FiO2 Intake & Output 04/20/24 04/21/24 04/21/24 18:59 06:59 18:59 Intake Total 0 Output Total 550 650 Balance -550 -650 0 Weight 97 kg 97 kg Intake: Blood Product 0 Unit 0 Output: Urine 550 650 Other: Voiding Method Toilet # Bowel Movements 1 - Exam GENERAL DESCRIPTION: Middle-age male lying in bed in no distress RESPIRATORY SYSTEM: Unlabored breathing , decreased breath sounds at bases HEART: S1 S2 regular rate and rhythm , ABDOMEN: Soft , no tenderness EXTREMITIES: Right foot wound is currently dressed - Labs CBC & Chem 7: 04/21/24 11:22 04/21/24 05:26 Labs: Abnormal Lab Results - Last 24 Hours (Table) 04/20/24 04/20/24 04/21/24 Range/Units 16:45 23:04 05:26 WBC 10.53 H (4.50-10.00) X 10*3/uL RBC 2.08 L (4.40-5.60) X 10*6/uL Hgb 6.5 A* (13.0-17.0) g/dL Hct 22.0 L (39.6-50.0) % MCV 105.8 H (80.0-97.0) FL MCHC 29.5 L (32.0-37.0) g/dL RDW 14.9 H (11.5-14.5) % Immature Gran # 0.08 H (0.00-0.04) X 10*3/uL Neutrophils # (Manual) (1.3-7.7) k/uL Eosinophils # 0.49 H (0.04-0.35) X 10*3/uL Basophils # 0.12 H (0.00-0.10) X 10*3/uL NRBC/100 WBC Diff 0.06 H (0.00-0.01) X 10*3/uL Potassium (3.5-5.5) mmol/L BUN (9.0-27.0) mg/dL Creatinine (0.6-1.5) mg/dL Est GFR (CKD-EPI) (>=60) BUN/Creatinine Ratio (12.00-20.00) Ratio Glucose (70-110) mg/dL POC Glucose (mg/dL) 130 H 123 H (70-110) mg/dL Calcium (8.7-10.3) mg/dL Magnesium (1.5-2.4) mg/dL Total Bilirubin (0.3-1.2) mg/dL Total Protein (6.2-8.2) g/dL Albumin (3.8-4.9) g/dL Albumin/Globulin Ratio (1.60-3.17) Ratio Crossmatch 04/21/24 04/21/24 04/21/24 Range/Units 05:26 05:56 11:22 WBC 11.0 H (4.50-10.00) X 10*3/uL RBC 2.09 L (4.40-5.60) X 10*6/uL Hgb 6.8 L* D (13.0-17.0) g/dL Hct 22.2 L (39.6-50.0) % MCV 105.9 H (80.0-97.0) FL MCHC 30.9 L (32.0-37.0) g/dL RDW 16.1 H (11.5-14.5) % Immature Gran # (0.00-0.04) X 10*3/uL Neutrophils # (Manual) 8.80 H (1.3-7.7) k/uL Eosinophils # (0.04-0.35) X 10*3/uL Basophils # (0.00-0.10) X 10*3/uL NRBC/100 WBC Diff (0.00-0.01) X 10*3/uL Potassium 5.9 H (3.5-5.5) mmol/L BUN 98.3 H (9.0-27.0) mg/dL Creatinine 2.4 H (0.6-1.5) mg/dL Est GFR (CKD-EPI) 30 L (>=60) BUN/Creatinine Ratio 40.96 H (12.00-20.00) Ratio Glucose 127 H (70-110) mg/dL POC Glucose (mg/dL) 135 H (70-110) mg/dL Calcium 8.0 L (8.7-10.3) mg/dL Magnesium 2.8 H (1.5-2.4) mg/dL Total Bilirubin 0.2 L (0.3-1.2) mg/dL Total Protein 5.6 L (6.2-8.2) g/dL Albumin 3.3 L (3.8-4.9) g/dL Albumin/Globulin Ratio 1.43 L (1.60-3.17) Ratio Crossmatch 04/21/24 04/21/24 Range/Units 12:26 12:50 WBC (4.50-10.00) X 10*3/uL RBC (4.40-5.60) X 10*6/uL Hgb (13.0-17.0) g/dL Hct (39.6-50.0) % MCV (80.0-97.0) FL MCHC (32.0-37.0) g/dL RDW (11.5-14.5) % Immature Gran # (0.00-0.04) X 10*3/uL Neutrophils # (Manual) (1.3-7.7) k/uL Eosinophils # (0.04-0.35) X 10*3/uL Basophils # (0.00-0.10) X 10*3/uL NRBC/100 WBC Diff (0.00-0.01) X 10*3/uL Potassium (3.5-5.5) mmol/L BUN (9.0-27.0) mg/dL Creatinine (0.6-1.5) mg/dL Est GFR (CKD-EPI) (>=60) BUN/Creatinine Ratio (12.00-20.00) Ratio Glucose (70-110) mg/dL POC Glucose (mg/dL) 262 H (70-110) mg/dL Calcium (8.7-10.3) mg/dL Magnesium (1.5-2.4) mg/dL Total Bilirubin (0.3-1.2) mg/dL Total Protein (6.2-8.2) g/dL Albumin (3.8-4.9) g/dL Albumin/Globulin Ratio (1.60-3.17) Ratio Crossmatch See Detail Assessment and Plan (1) Cellulitis of right foot Current Visit: No Status: Acute Code(s): L03.115 - CELLULITIS OF RIGHT LOWER LIMB SNOMED Code(s): 83830943599607062 (2) Diabetic foot ulcer Current Visit: No Status: Acute Code(s): E11.621 - TYPE 2 DIABETES MELLITUS WITH FOOT ULCER; L97.509 - NON-PRESSURE CHRONIC ULCER OTH PRT UNSP FOOT W UNSP SEVERITY SNOMED Code(s): 873124494 Plan: 1patient presenting to the hospital mostly with generalized weakness low O2 sats possibly underlying cardiac etiology for the patient being managed by cardiology, patient also have a 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 2patient is afebrile with white count is normal right foot wound culture negative, sputum culture currently growing Jenae which is more likely colonizer 3- patient remains to be afebrile patient continue with the Unasyn while inpatient transition to oral antibiotic on discharge Dictation was produced using [employer] dictation software. please excuse any grammatical, word or spelling errors. Time with Patient: Less than 30
[2024-04-21] MEDS: DARBEPOETIN ALFA 40 MCG/0.4 ML SYRINGE SQ SCH (18:04)
[2024-04-21] MEDS: DESMOPRESSIN ACETATE 25 MCG in SODIUM CHLORIDE 0.9% 50 ML IVPB ONE (18:04)
[2024-04-21 18:35] LABS: Glucose,Whole Blood 145 mg/dL (70-110)
[2024-04-21 23:01] LABS: % Iron Saturation 27.71 (15.00-50.00); Ferritin 78.2 ng/mL (22.0-322.0)
[2024-04-21 23:09] LABS: Glucose,Whole Blood 130 mg/dL (70-110)
[2024-04-22 05:41] LABS: Glucose,Whole Blood 195 mg/dL (70-110)
[2024-04-22 09:26] LABS: Magnesium 2.8 mg/dL (1.5-2.4)
[2024-04-22 09:38] LABS: BUN/Creat Ratio 39.63 Ratio (12.00-20.00); Carbon Dioxide 28.4 mmol/L (21.6-31.8); Chloride 103 mmol/L (96-109); Glucose 150 mg/dL (70-110); Potassium 5.8 mmol/L (3.5-5.5); Sodium 141 mmol/L (135-145)
[2024-04-22] MEDS: SODIUM FERRIC GLUCONAT-SUCROSE 125 MG in SODIUM CHLORIDE 0.9% 100 ML IVPB ONE (10:13)
[2024-04-22 10:32] LABS: Anisocytosis Slight; HCT 21.3 % (39.0-53.0); Hypochromasia Marked; MCHC 30.1 g/dL (31.0-37.0); MCV 106.5 fL (80.0-100.0); Macrocytosis Moderate; Mean Platelet Volume 10.3; Platelet Count 308 k/uL (150-450); RDW 17.3 % (11.5-15.5); WBC 10.7 k/uL (3.8-10.6)
[2024-04-22 10:35] LABS: HGB 6.4 gm/dL (13.0-17.5)
--- NOTE | 2024-04-22 11:08 | P.PN ---
Subjective Progress Note Date: 04/22/24 Everett Juárez, is a 63-year-old male who presented to [facility] emergency room with a chief complaint of worsening shortness of breath and generalized weakness, patient was recently admitted to [facility] with peripheral vascular disease right foot osteomyelitis and underwent stenting of the right SFA by Dr. Dillard, he has a previous history of right great toe amputation. He was evaluated in the emergency room vital examination on presentation revealed a temperature of 98.9 pulse 110 respiration 18 blood pressure 114/72 pulse ox 96% on room air Laboratory data reveals a white blood count of 8.7 hemoglobin 11.4 platelet count 283 sodium 139 potassium 4.9 chloride 110 CO2 23 BUN 41 creatinine 2.01 D- dimer was elevated at 2.10, troponin level was elevated at 0.043 Testing in the emergency room revealed chest x-ray done in the emergency room revealed cardiomegaly and mild pulmonary vascular congestion suggestive of congestive heart failure, VQ scan showed no evidence for pulmonary embolism, EKG revealed atrial fibrillation with moderate T wave abnormalities suggestive of lateral ischemia. Patient was admitted to medical floor for further evaluation and treatment Past medical history is significant for history of atrial fibrillation, history of peripheral arterial disease with previous history of right great toe amputation, history of COPD, history of diabetes mellitus type 2, history of hyperkalemia, history of chronic kidney disease. On review of systems patient is alert and oriented x 3 in no apparent distress, he is complaining of generalized weakness, complaining of shortness of breath, which is worse with activity, and complaining of right foot pain, otherwise he denies any complaints, there is no fever or chills no headache or dizziness no chest pain, no cough no nausea or vomiting no abdominal pain no diarrhea and no urinary symptoms On 04/14/2024 patient is alert and oriented 3.Patient remains on IV Unasyn and IV Lasix. 2-D echo completed showing an EF of 35-40%. Current vital signs temp 98.3, heart 81, respiratory rate 18, blood pressure 135/67 with a pulse ox of 100% on 3 L. Patient reports improvement with shortness of breath. Patient denies nausea vomiting or diarrhea. Patient denies any urinary burning or frequency On 04/15/2024 Patient is alert and oriented 3. Patient remains on IV Unasyn. Patient has been transitioned to by mouth Lasix.Current vital signs temp 97.1, heart rate 98, respiratory rate 18, blood pressure 121/79 with pulse ox 96% on 3 L. Patient denies chest pain or shortness breath. Patient denies nausea vomiting or diarrhea. Patient denies any urinary burning or frequency. On 04/16/2024 he is alert and oriented x 3 in no apparent distress he reports improvement in his shortness of breath there is no fever or chills no headache or dizziness no chest pain no cough no nausea or vomiting no abdominal pain no diarrhea and no urinary symptoms. On 04/17/2024 patient is alert and oriented x 3. Current vital signs Temp 98.1, heart rate 100, respiratory rate 16, blood pressure 153/81 with a pulse ox of 97% on 2 L. Patient remains on IV Unasyn. Awaiting final antibiotic recommenda tions per ID. Patient denies chest pain or shortness of breath. Patient denies nausea vomiting or diarrhea. Patient denies any urinary burning or frequency. On 04/18/2024 patient was seen and examined on the medical floor he is alert and oriented x 3 in no apparent distress there is no fever or chills no headache or dizziness no chest pain no shortness of breath no cough no nausea or vomiting no abdominal pain no diarrhea no urinary symptoms, he is still maintained on oxygen supplements, patient need to be assessed for need for home oxygen, he is also maintained on tube feeding, [employer] is working on arrangement for tube feeding at home. Otherwise continue with current management will recheck in a.m.. On 04/19/2024 patient is alert and oriented x 3. Patient is maintained on 3 L n roberth cannula. Patient also maintained on IV Unasyn. Awaiting final IV recommendations from infectious disease. Current vital signs Temp 98.2, heart rate 82, blood pressure 116/70 with a pulse ox of 97% on 3 L patient denies chest pain or shortness of breath. Patient denies nausea vomiting or diarrhea. Patient denies any urinary burning or frequency On 04/20/2024 patient was seen and examined on the medical floor he is alert and oriented x 3 in no apparent distress, there is no fever or chills no headache or dizziness no chest pain no shortness of breath no cough no nausea or vomiting no abdominal pain no diarrhea no urinary symptoms, patient is still having difficulty with hyperkalemia, he is maintained on IV fluids and [facility] are following, will recheck labs in a.m. On 04/21/2024 patient is alert and oriented x 3. Potassium remains elevated at 5.9 awaiting further recommendations from nephrology standpoint. Patient denies chest pain or shortness of breath. Patient denies nausea vomiting or diarrhea. Patient denies any urinary burning or frequency On 04/22/2024 patient is alert and oriented x 3. Patient received 1 unit PRBCs for hemoglobin of 6.8 yesterday. GI services were consulted stool for occult blood ordered. Nephrology service is following for elevated potassium level. At this time patient denies chest pain or shortness of breath. Patient denies nausea vomiting or diarrhea. Patient denies any urinary burning frequency Objective - Vital Signs Vital signs: Vital Signs Temp 98.2 F 04/22/24 07:22 Pulse 102 H 04/22/24 07:22 Resp 19 04/22/24 07:22 BP 122/66 04/22/24 07:22 Pulse Ox 100 04/22/24 07:22 FiO2 Intake & Output 04/21/24 04/22/24 04/22/24 18:59 06:59 18:59 Intake Total 310 190 Output Total 550 200 Balance 310 -360 -200 Weight 97 kg 97 kg Intake: Intake, IV Titration 100 Amount Ampicillin-Sulbactam 3 gm 100 In Sodium Chloride 0.9% 100 ml @ 200 mls/hr IVPB Q8HR [facility] Rx#:[id number] Blood Product 310 Rc As-1 Unit 310 [id number] Other 90 Output: Urine 550 200 Other: Voiding Method Toilet Urinal - Exam In general patient is alert and oriented x 3 in no distress HEENT head normocephalic and atraumatic Neck is supple no JVD no goiter no lymphadenopathy no carotid bruit Chest examination reveals a scattered crackles in both lung [place] no wheezing Cardiac exam reveals irregular heart sounds S1 and S2 no gallops no murmurs Abdomen is soft nontender no organomegaly with normal bowel sounds Extremity exam reveals no edema no cyanosis or clubbing, the right great toe is amputated with a large ulcer at the base of the amputated right great toe with purulent discharge Neurological examination reveals no gross focal deficits - Labs CBC & Chem 7: 04/22/24 04:33 04/22/24 04:33 Labs: Abnormal Lab Results - Last 24 Hours (Table) 04/21/24 04/21/24 04/21/24 Range/Units 05:26 11:22 12:26 WBC 11.0 H (3.8-10.6) k/uL RBC 2.09 L (4.30-5.90) m/uL Hgb 6.5 A* 6.8 L* D (13.0-17.0) g/dL Hct 22.2 L (39.0-53.0) % MCV 105.9 H (80.0-100.0) fL MCHC 30.9 L (31.0-37.0) g/dL RDW 16.1 H (11.5-15.5) % Immature Gran # 0.08 H (0.00-0.04) X 10*3/uL Neutrophils # (Manual) 8.80 H (1.3-7.7) k/uL Eosinophils # 0.49 H (0.04-0.35) X 10*3/uL Basophils # 0.12 H (0.00-0.10) X 10*3/uL Potassium (3.5-5.1) mmol/L BUN (9.0-27.0) mg/dL Creatinine (0.6-1.5) mg/dL Est GFR (CKD-EPI) (>=60) BUN/Creatinine Ratio (12.00-20.00) Ratio Glucose (70-110) mg/dL POC Glucose (mg/dL) 262 H (70-110) mg/dL Calcium (8.7-10.3) mg/dL Magnesium (1.5-2.4) mg/dL Crossmatch 04/21/24 04/21/24 04/21/24 Range/Units 12:50 17:10 18:30 WBC (3.8-10.6) k/uL RBC (4.30-5.90) m/uL Hgb (13.0-17.0) g/dL Hct (39.0-53.0) % MCV (80.0-100.0) fL MCHC (31.0-37.0) g/dL RDW (11.5-15.5) % Immature Gran # (0.00-0.04) X 10*3/uL Neutrophils # (Manual) (1.3-7.7) k/uL Eosinophils # (0.04-0.35) X 10*3/uL Basophils # (0.00-0.10) X 10*3/uL Potassium 5.9 H (3.5-5.1) mmol/L BUN (9.0-27.0) mg/dL Creatinine (0.6-1.5) mg/dL Est GFR (CKD-EPI) (>=60) BUN/Creatinine Ratio (12.00-20.00) Ratio Glucose (70-110) mg/dL POC Glucose (mg/dL) 145 H (70-110) mg/dL Calcium (8.7-10.3) mg/dL Magnesium (1.5-2.4) mg/dL Crossmatch See Detail 04/21/24 04/21/24 04/22/24 Range/Units 22:13 23:07 04:33 WBC (3.8-10.6) k/uL RBC (4.30-5.90) m/uL Hgb (13.0-17.0) g/dL Hct (39.0-53.0) % MCV (80.0-100.0) fL MCHC (31.0-37.0) g/dL RDW (11.5-15.5) % Immature Gran # (0.00-0.04) X 10*3/uL Neutrophils # (Manual) (1.3-7.7) k/uL Eosinophils # (0.04-0.35) X 10*3/uL Basophils # (0.00-0.10) X 10*3/uL Potassium 5.5 H 5.8 H (3.5-5.1) mmol/L BUN 107.0 A* (9.0-27.0) mg/dL Creatinine 2.7 H (0.6-1.5) mg/dL Est GFR (CKD-EPI) 26 L (>=60) BUN/Creatinine Ratio 39.63 H (12.00-20.00) Ratio Glucose 150 H (70-110) mg/dL POC Glucose (mg/dL) 130 H (70-110) mg/dL Calcium 8.0 L (8.7-10.3) mg/dL Magnesium 2.8 H (1.5-2.4) mg/dL Crossmatch 04/22/24 Range/Units 05:39 WBC (3.8-10.6) k/uL RBC (4.30-5.90) m/uL Hgb (13.0-17.0) g/dL Hct (39.0-53.0) % MCV (80.0-100.0) fL MCHC (31.0-37.0) g/dL RDW (11.5-15.5) % Immature Gran # (0.00-0.04) X 10*3/uL Neutrophils # (Manual) (1.3-7.7) k/uL Eosinophils # (0.04-0.35) X 10*3/uL Basophils # (0.00-0.10) X 10*3/uL Potassium (3.5-5.1) mmol/L BUN (9.0-27.0) mg/dL Creatinine (0.6-1.5) mg/dL Est GFR (CKD-EPI) (>=60) BUN/Creatinine Ratio (12.00-20.00) Ratio Glucose (70-110) mg/dL POC Glucose (mg/dL) 195 H (70-110) mg/dL Calcium (8.7-10.3) mg/dL Magnesium (1.5-2.4) mg/dL Crossmatch Assessment and Plan Plan: Worsening shortness of breath, multifactorial, possibly related to acute congestive heart failure, and underlying COPD Atrial fibrillation, with rapid ventricular response on presentation, heart rate was 110 New onset cardiomyopathy. Generalized weakness Large ulcer at the base of the right great toe with purulent discharge, patient was maintained on oral Augmentin as outpatient, infectious disease consultation requested Underlying history of peripheral arterial disease, with recent history of angioplasty and stent placement to the right lower extremity on 04/08/2024 Underlying history of diabetes mellitus Underlying history of chronic obstructive pulmonary disease Underlying history of chronic kidney disease Underlying history of hyperkalemia Underlying history of chronic continued tobacco abuse At this time patient is admitted to telemetry floor Home medications reviewed and reordered Consultation for cardiology and pulmonary were requested in the emergency room For DVT prophylaxis, patient is maintained on scds (eliquis on hold due to anemia) Will add infectious disease consultation in regard to base of right great toe ulcer Will follow closely
[2024-04-22 11:33] LABS: Basophils # (M) 0.11 k/uL (0-0.2); Eosinophils # (M) 0.21 k/uL (0-0.7); Lymphocytes # (M) 0.96 k/uL (1.0-4.8); Monocytes # (M) 0.96 k/uL (0-1.0); Myelocytes # (M) 0.11 k/uL (0); Myelocytes % 1 %; Neutrophils # (M) 8.56 k/uL (1.3-7.7); Neutrophils % (M) 80 %; Nucleated Red Blood Cells 0 /100 WBC (0-0); Total Cells Counted 200
[2024-04-22 11:34] LABS: Polychromasia Present
--- NOTE | 2024-04-22 11:38 | P.PN ---
Subjective Patient is seen in follow-up for acute kidney injury on chronic kidney disease. Renal function worse. Received a unit of blood yesterday and hemoglobin 6.4 today. Denies any active bleeding. Has been voiding. Denies chest pain or shortness of breath. Vital signs are stable. General: No acute distress. HEENT: Head exam is unremarkable. LUNGS: No audible rhonchi or wheezes. HEART: Rate and Rhythm are regular. ABDOMEN: Obese, nontender. PEG tube noted. EXTREMITITES: No edema. Objective - Vital Signs Vital signs: Vital Signs Temp 98.2 F 04/22/24 07:22 Pulse 102 H 04/22/24 07:22 Resp 19 04/22/24 07:22 BP 122/66 04/22/24 07:22 Pulse Ox 100 04/22/24 07:22 FiO2 Intake & Output 04/21/24 04/22/24 04/22/24 18:59 06:59 18:59 Intake Total 310 190 Output Total 550 650 Balance 310 -360 -650 Weight 97 kg 97 kg Intake: Intake, IV Titration 100 Amount Ampicillin-Sulbactam 3 gm 100 In Sodium Chloride 0.9% 100 ml @ 200 mls/hr IVPB Q8HR [facility] Rx#:[id number] Blood Product 310 Rc As-1 Unit 310 [id number] Other 90 Output: Urine 550 650 Other: Voiding Method Toilet Urinal - Labs CBC & Chem 7: 04/22/24 04:33 04/22/24 04:33 Labs: Abnormal Lab Results - Last 24 Hours (Table) 04/21/24 04/21/24 04/21/24 Range/Units 05:26 11:22 12:26 WBC 11.0 H (3.8-10.6) k/uL RBC 2.09 L (4.30-5.90) m/uL Hgb 6.5 A* 6.8 L* D (13.0-17.0) g/dL Hct 22.2 L (39.0-53.0) % MCV 105.9 H (80.0-100.0) fL MCHC 30.9 L (31.0-37.0) g/dL RDW 16.1 H (11.5-15.5) % Immature Gran # 0.08 H (0.00-0.04) X 10*3/uL Neutrophils # (Manual) 8.80 H (1.3-7.7) k/uL Eosinophils # 0.49 H (0.04-0.35) X 10*3/uL Basophils # 0.12 H (0.00-0.10) X 10*3/uL Potassium (3.5-5.1) mmol/L BUN (9.0-27.0) mg/dL Creatinine (0.6-1.5) mg/dL Est GFR (CKD-EPI) (>=60) BUN/Creatinine Ratio (12.00-20.00) Ratio Glucose (70-110) mg/dL POC Glucose (mg/dL) 262 H (70-110) mg/dL Calcium (8.7-10.3) mg/dL Magnesium (1.5-2.4) mg/dL Crossmatch 04/21/24 04/21/24 04/21/24 Range/Units 12:50 17:10 18:30 WBC (3.8-10.6) k/uL RBC (4.30-5.90) m/uL Hgb (13.0-17.0) g/dL Hct (39.0-53.0) % MCV (80.0-100.0) fL MCHC (31.0-37.0) g/dL RDW (11.5-15.5) % Immature Gran # (0.00-0.04) X 10*3/uL Neutrophils # (Manual) (1.3-7.7) k/uL Eosinophils # (0.04-0.35) X 10*3/uL Basophils # (0.00-0.10) X 10*3/uL Potassium 5.9 H (3.5-5.1) mmol/L BUN (9.0-27.0) mg/dL Creatinine (0.6-1.5) mg/dL Est GFR (CKD-EPI) (>=60) BUN/Creatinine Ratio (12.00-20.00) Ratio Glucose (70-110) mg/dL POC Glucose (mg/dL) 145 H (70-110) mg/dL Calcium (8.7-10.3) mg/dL Magnesium (1.5-2.4) mg/dL Crossmatch See Detail 04/21/24 04/21/24 04/22/24 Range/Units 22:13 23:07 04:33 WBC (3.8-10.6) k/uL RBC (4.30-5.90) m/uL Hgb (13.0-17.0) g/dL Hct (39.0-53.0) % MCV (80.0-100.0) fL MCHC (31.0-37.0) g/dL RDW (11.5-15.5) % Immature Gran # (0.00-0.04) X 10*3/uL Neutrophils # (Manual) (1.3-7.7) k/uL Eosinophils # (0.04-0.35) X 10*3/uL Basophils # (0.00-0.10) X 10*3/uL Potassium 5.5 H 5.8 H (3.5-5.1) mmol/L BUN 107.0 A* (9.0-27.0) mg/dL Creatinine 2.7 H (0.6-1.5) mg/dL Est GFR (CKD-EPI) 26 L (>=60) BUN/Creatinine Ratio 39.63 H (12.00-20.00) Ratio Glucose 150 H (70-110) mg/dL POC Glucose (mg/dL) 130 H (70-110) mg/dL Calcium 8.0 L (8.7-10.3) mg/dL Magnesium 2.8 H (1.5-2.4) mg/dL Crossmatch 04/22/24 04/22/24 Range/Units 04:33 05:39 WBC 10.7 H (3.8-10.6) k/uL RBC 2.00 L (4.30-5.90) m/uL Hgb 6.4 L* (13.0-17.0) g/dL Hct 21.3 L (39.0-53.0) % MCV 106.5 H (80.0-100.0) fL MCHC 30.1 L (31.0-37.0) g/dL RDW 17.3 H (11.5-15.5) % Immature Gran # (0.00-0.04) X 10*3/uL Neutrophils # (Manual) (1.3-7.7) k/uL Eosinophils # (0.04-0.35) X 10*3/uL Basophils # (0.00-0.10) X 10*3/uL Potassium (3.5-5.1) mmol/L BUN (9.0-27.0) mg/dL Creatinine (0.6-1.5) mg/dL Est GFR (CKD-EPI) (>=60) BUN/Creatinine Ratio (12.00-20.00) Ratio Glucose (70-110) mg/dL POC Glucose (mg/dL) 195 H (70-110) mg/dL Calcium (8.7-10.3) mg/dL Magnesium (1.5-2.4) mg/dL Crossmatch Assessment and Plan Plan: Assessment: 1. Acute kidney injury secondary to ATN secondary to acute blood loss anemia. Creatinine near 2 this admission and is 2.7 today. Elevated BUN secondary to chronic kidney disease as well as GI bleed. No hydronephrosis noted on kidney ultrasound. UA fairly benign. 2. Chronic kidney disease stage IV baseline creatinine 1.8-2 secondary to solitary right kidney. History of left nephrectomy. 3. Chronic systolic CHF ejection fraction of 35 to 40% with severe pulmonary hypertension. 4. Diabetes mellitus. 5. Hypernatremia from lack of oral water intake. Improved. 6. Hyperkalemia secondary to acute kidney injury and GI bleed. 7. Peripheral vascular disease. 8. Acute blood loss anemia with hemoglobin 6.4 today. No active bleeding. Status post blood transfusion and IV DDAVP. Also on Aranesp. GI consulted. Plan: Maintain tube feeds. Use low potassium in tube feeds. Scheduled to receive a unit of blood today. Repeat IV DDAVP x 1 dose today. Maintain Lokelma. Avoid nephrotoxins. Repeat potassium level this afternoon.
[2024-04-22 11:44] LABS: Glucose,Whole Blood 164 mg/dL (70-110)
[2024-04-22] MEDS: DESMOPRESSIN ACETATE 24 MCG in SODIUM CHLORIDE 0.9% 50 ML IVPB ONE (12:25)
--- NOTE | 2024-04-22 12:28 | P.PN ---
Subjective Progress Note Date: 04/22/24 Principal diagnosis: Reason for follow-up is right foot wound and cellulitis Patient is a 63-year-old male with a past medical history significant for diabetes mellitus hypertension hyperlipidemia pneumonia CVA TIA COPD patient did have a right big toe amputation done by and was recently admitted to the hospital concerning for pain to the right foot and cold feeling patient has been diagnosed with PAD and is s/p peripheral intervention by interventional cardiology with angioplasty of SFA and right popliteal arteries however unsuccessful angioplasty of the right anterior tibial artery patient presented to hospital with weakness hypoxemia. On today's evaluation that is 04/22/2024, the patient continues to be afebrile, the patient is on 4 L nasal cannula and breathing comfortably, the Pt denies having any chest pain or any worsening cough, the patient denies having any abdominal pain no vomiting or any diarrhea and no pain to the right foot wound. Patient did have white count of 10.7 creatinine is 2.7 Objective - Vital Signs Vital signs: Vital Signs Temp 98.2 F 04/22/24 07:22 Pulse 102 H 04/22/24 07:22 Resp 19 04/22/24 07:22 BP 122/66 04/22/24 07:22 Pulse Ox 100 04/22/24 07:22 FiO2 Intake & Output 04/21/24 04/22/24 04/22/24 18:59 06:59 18:59 Intake Total 310 190 Output Total 550 650 Balance 310 360 650 Weight 97 kg 97 kg Intake: Intake, IV Titration 100 Amount Ampicillin-Sulbactam 3 gm 100 In Sodium Chloride 0.9% 100 ml @ 200 mls/hr IVPB Q8HR [facility] Rx#:[id number] Blood Product 310 Rc As-1 Unit 310 [id number] Other 90 Output: Urine 550 650 Other: Voiding Method Toilet Urinal - Exam GENERAL DESCRIPTION: Middle-age male lying in bed in no distress RESPIRATORY SYSTEM: Unlabored breathing , decreased breath sounds at bases HEART: S1 S2 regular rate and rhythm , ABDOMEN: Soft , no tenderness EXTREMITIES: Right foot wound base with no significant slough tissue surrounding redness - Labs CBC & Chem 7: 04/22/24 04:33 04/22/24 04:33 Labs: Abnormal Lab Results - Last 24 Hours (Table) 04/21/24 04/21/24 04/21/24 Range/Units 11:22 12:26 12:50 WBC (3.8-10.6) k/uL RBC (4.30-5.90) m/uL Hgb (13.0-17.5) gm/dL Hct (39.0-53.0) % MCV (80.0-100.0) fL MCHC (31.0-37.0) g/dL RDW (11.5-15.5) % Neutrophils # (Manual) 8.80 H (1.3-7.7) k/uL Lymphocytes # (Manual) (1.0-4.8) k/uL Myelocytes # (Manual) (0) k/uL Potassium (3.5-5.1) mmol/L BUN (9.0-27.0) mg/dL Creatinine (0.6-1.5) mg/dL Est GFR (CKD-EPI) (>=60) BUN/Creatinine Ratio (12.00-20.00) Ratio Glucose (70-110) mg/dL POC Glucose (mg/dL) 262 H (70-110) mg/dL Calcium (8.7-10.3) mg/dL Magnesium (1.5-2.4) mg/dL Crossmatch See Detail 04/21/24 04/21/24 04/21/24 Range/Units 17:10 18:30 22:13 WBC (3.8-10.6) k/uL RBC (4.30-5.90) m/uL Hgb (13.0-17.5) gm/dL Hct (39.0-53.0) % MCV (80.0-100.0) fL MCHC (31.0-37.0) g/dL RDW (11.5-15.5) % Neutrophils # (Manual) (1.3-7.7) k/uL Lymphocytes # (Manual) (1.0-4.8) k/uL Myelocytes # (Manual) (0) k/uL Potassium 5.9 H 5.5 H (3.5-5.1) mmol/L BUN (9.0-27.0) mg/dL Creatinine (0.6-1.5) mg/dL Est GFR (CKD-EPI) (>=60) BUN/Creatinine Ratio (12.00-20.00) Ratio Glucose (70-110) mg/dL POC Glucose (mg/dL) 145 H (70-110) mg/dL Calcium (8.7-10.3) mg/dL Magnesium (1.5-2.4) mg/dL Crossmatch 04/21/24 04/22/24 04/22/24 Range/Units 23:07 04:33 04:33 WBC 10.7 H (3.8-10.6) k/uL RBC 2.00 L (4.30-5.90) m/uL Hgb 6.4 L* (13.0-17.5) gm/dL Hct 21.3 L (39.0-53.0) % MCV 106.5 H (80.0-100.0) fL MCHC 30.1 L (31.0-37.0) g/dL RDW 17.3 H (11.5-15.5) % Neutrophils # (Manual) 8.56 H (1.3-7.7) k/uL Lymphocytes # (Manual) 0.96 L (1.0-4.8) k/uL Myelocytes # (Manual) 0.11 H (0) k/uL Potassium 5.8 H (3.5-5.1) mmol/L BUN 107.0 A* (9.0-27.0) mg/dL Creatinine 2.7 H (0.6-1.5) mg/dL Est GFR (CKD-EPI) 26 L (>=60) BUN/Creatinine Ratio 39.63 H (12.00-20.00) Ratio Glucose 150 H (70-110) mg/dL POC Glucose (mg/dL) 130 H (70-110) mg/dL Calcium 8.0 L (8.7-10.3) mg/dL Magnesium 2.8 H (1.5-2.4) mg/dL Crossmatch 04/22/24 04/22/24 Range/Units 05:39 11:42 WBC (3.8-10.6) k/uL RBC (4.30-5.90) m/uL Hgb (13.0-17.5) gm/dL Hct (39.0-53.0) % MCV (80.0-100.0) fL MCHC (31.0-37.0) g/dL RDW (11.5-15.5) % Neutrophils # (Manual) (1.3-7.7) k/uL Lymphocytes # (Manual) (1.0-4.8) k/uL Myelocytes # (Manual) (0) k/uL Potassium (3.5-5.1) mmol/L BUN (9.0-27.0) mg/dL Creatinine (0.6-1.5) mg/dL Est GFR (CKD-EPI) (>=60) BUN/Creatinine Ratio (12.00-20.00) Ratio Glucose (70-110) mg/dL POC Glucose (mg/dL) 195 H 164 H (70-110) mg/dL Calcium (8.7-10.3) mg/dL Magnesium (1.5-2.4) mg/dL Crossmatch Assessment and Plan (1) Cellulitis of right foot Current Visit: No Status: Acute Code(s): L03.115 - CELLULITIS OF RIGHT LOWER LIMB SNOMED Code(s): 32279973137862675 (2) Diabetic foot ulcer Current Visit: No Status: Acute Code(s): E11.621 - TYPE 2 DIABETES MELLITUS WITH FOOT ULCER; L97.509 - NON-PRESSURE CHRONIC ULCER OTH PRT UNSP FOOT W UNSP SEVERITY SNOMED Code(s): 407467680 Plan: 1patient presenting to the hospital mostly with generalized weakness low O2 sats possibly underlying cardiac etiology for the patient being managed by cardiology, patient also have a 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 2patient is afebrile with white count is normal right foot wound culture negative, sputum culture currently growing Jenae which is more likely colonizer 3- patient remains to be afebrile with a normal white count, patient continue with the Unasyn while inpatient transition to oral Augmentin on discharge Dictation was produced using [employer] dictation software. please excuse any grammatical, word or spelling errors. Time with Patient: Less than 30
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
--- NOTE | 2024-04-22 15:24 | P.PN ---
Subjective Progress Note Date: 04/22/24 This is a 63-year-old white male with history of multiple medical problems including coronary artery disease, chronic atrial fibrillation, peripheral vessel occlusive disease, severe pulmonary hypertension, chronic obstructive pulmonary disease, patient normally sees Dr. Dillard on outpatient basis. Patient was never seen by a contracts representative. Admitted this time with few days history of increased shortness of breath, and according to the his O2 saturation was down in the 60s. Patient was brought into the ER, chest x-ray showed evidence of pulmonary edema, VQ scan negative for pulmonary embolism, patient was admitted and this consult was initiated. Patient is not a great historian, most of the information was obtained from his , apparently the patient had history of CVA in the past, and he had a previous PEG tube placement Labs on admission showed relatively normal CBC, no leukocytosis, D-dimer was a bit elevated at 2.10 and renal profile was abnormal with BUN of 43 and creatinine 2. 01 however BNP level was 12,300 and troponin was 0.043. Since admission, the patient received 1 dose of Lasix, and he is at least 1.5 L negative fluid balance The patient is seen today April 14, 2024 in follow-up on the selective care unit. He is currently sitting up at the bedside. Awake and alert in no acute distress. Breathing a bit easier today compared to yesterday. Currently maintaining good O2 saturations in the upper 90s on 3 L/min per nasal cannula. He is afebrile. Hemodynamically stable. Echocardiogram reveals impaired left ventricular systolic function with an ejection fraction of 35 to 40%. Severe pulmonary hypertension. Moderate to severely dilated left atrium. Right first toe culture is pending. Currently on Unasyn. Glucose 125. Being nourished with Glucerna at 51 MLS per hour via his PEG tube. Anticoagulated with Eliquis. Remains on diuretics. Making adequate urine. The patient is seen today April 15, 2024 in follow-up on the selective care unit. He is awake and alert in no acute distress. Maintaining O2 saturations in the 90s on 3 L/min per nasal cannula. Hemodynamically stable. White count 8.4. Hemoglobin 11.2. Platelets 321. Sodium 143. Potassium 4.9. Bicarb 29. BUN 45. Creatinine 1.99. Glucose 126. He is continued on Unasyn. Anticoagulated with Eliquis. Remains on bronchodilators. Remains on oral diuretics. Continued on Glucerna via his PEG tube. Barium swallow is pending so the patient can continue on tube feedings in the outpatient setting Patient was evaluated today on 04/16/2024, patient is doing well, comfortable, not in any distress, on 3 L nasal cannula with O2 sats of 96%. WBC is 8.5 hemoglobin 10.5 electrolytes are relatively normal with potassium of 5.2 BUN is 48 creatinine 1.94, steadily improving since admission patient had a successful swallow evaluation study that came back unremarkable. The patient was seen today April 17, 2024 in follow-up on the selective care unit. He is currently resting comfortably in bed. Awake and alert in no acute distress. Maintaining O2 saturations in the 90s on 2 L/min per nasal cannula. Right foot culture results revealing no growth. White count 9.6. Hemoglobin 1 0.9. Platelets 305. Sodium 145. Potassium 5.4. Bicarb 32. BUN 56. Creatinine 1.99. Glucose 133. He remains on bronchodilators. Anticoagulated with Eliquis. Antibiotics in the form of Unasyn. Remains on Glucerna tube feedings. The patient is seen today April 18, 2024 in follow-up on the regular medical floor. He is currently sitting up at the bedside. Awake and alert in no acute distress. Maintaining O2 saturations in the 90s on 2 L/min per nasal cannula. He has been afebrile. Hemodynamically stable. He remains on Glucerna at 51 mL/h which is goal. He remains on antibiotics in the form of Unasyn. His right foot dressing is dry and intact. Glucose 140. He remains on bronchodilators. Oral diuretics. Anticoagulated with Eliquis. The patient is seen today April 19, 2024 in follow-up on the regular medical floor. He is currently sitting up in bed. Awake and alert in no acute distress. He is maintaining good O2 saturations in the 90s on 3 L/min per nasal cannula. He remains on antibiotics in the form of Unasyn. He is being nourished with Glucerna at 51 mL/h which is his goal. He is continued on bronchodilators. Anticoagulated with Eliquis. Normal saline at 100 MLS per hour. White count 10.8. Hemoglobin 9.2. Platelets 307. Sodium 147. Potassium 6.3. BUN 84. Creatinine 2.3. Glucose 105. The patient is seen today April 20, 2024 in follow-up on the regular medical floor. He is currently sitting up at the bedside. Awake and alert in no acute distress. Maintaining good O2 saturations in the 90s on 4 L/min per nasal cannula. He remains on Glucerna at 51 mL/h which is goal. 0.45% normal saline at 75 MLS per hour. Potassium 5.6. Bicarb 30. BUN 90. Creatinine 2.4. Glucose 120. He received Lokelma yesterday for his hyperkalemia. Right foot cultures revealed no growth. Sputum culture revealed Jenae. He continues on Unasyn per ID service. He remains on bronchodilators. Anticoagulated with Eliquis. Remains on oral diuretics. The patient is seen today April 21, 2024 in follow-up on the regular medical floor. He is awake and alert in no acute distress. Sitting up at the bedside. Denies any worsening shortness of breath, cough or congestion. Continues to maintain good O2 saturations in the upper 90s on 4 L/min per nasal cannula. He is afebrile. Hemodynamically stable. White count 11.0. Hemoglobin 6.8. Platelets 324. Sodium 143. Potassium 5.9. Bicarb 29. BUN 98. Creatinine 2.4. Glucose 127. Nephrology is following. He remains on bronchodilators and Unasyn. The patient is seen today April 22, 2024 in follow-up on the regular medical floor. He is currently sitting up at the bedside. Awake and alert in no acute distress. He is receiving 2 units of packed red blood cells for hemoglobin of 6.4 today. White count 10.7. Platelets 308. Sodium 141. Potassium 5.8. Bicarb 28. BUN 107. Creatinine 2.7. Glucose 150. He remains on Unasyn. Continued on bronchodilators. Remains on Lokelma for his hyperkalemia. Receiving folate acid. Objective - Vital Signs Vital signs: Vital Signs Temp 97.4 F L 04/22/24 14:37 Pulse 70 04/22/24 14:37 Resp 20 04/22/24 14:37 BP 118/78 04/22/24 14:37 Pulse Ox 98 04/22/24 14:37 FiO2 Intake & Output 04/21/24 04/22/24 04/22/24 18:59 06:59 18:59 Intake Total 310 190 0 Output Total 550 650 Balance 310 -360 -650 Weight 97 kg 97 kg Intake: Intake, IV Titration 100 Amount Ampicillin-Sulbactam 3 gm 100 In Sodium Chloride 0.9% 100 ml @ 200 mls/hr IVPB Q8HR [facility] Rx#:[id number] Blood Product 310 0 Rc As-1 Unit 0 [id number] Rc As-1 Unit 310 [id number] Other 90 Output: Urine 550 650 Other: Voiding Method Toilet Urinal - Exam GENERAL EXAM: Alert, 63-year-old male, sitting up at the bedside, on 4 L nasal cannula, in no apparent distress. HEAD: Normocephalic. EYES: Normal reaction of pupils, equal size. NOSE: Clear with pink turbinates. THROAT: No erythema or exudates. NECK: No masses, no JVD. CHEST: No chest wall deformity. LUNGS: Equal air entry with no crackles, wheeze, rhonchi or dullness. CVS: S1 and S2 normal with no audible murmur, regular rhythm. ABDOMEN: PEG tube exit site clean and dry. No hepatosplenomegaly, normal bowel sounds, no guarding or rigidity. SPINE: No scoliosis or deformity SKIN: Evidence of purulent drainage noted at the site of a previous amputation of the big toe and second toe on the right foot CENTRAL NERVOUS SYSTEM: No focal deficits, tone is normal in all 4 extremities. EXTREMITIES: Right foot dressing dry and intact. There is no peripheral edema. Peripheral pulses are intact. - Labs CBC & Chem 7: 04/22/24 04:33 04/22/24 04:33 Labs: Abnormal Lab Results - Last 24 Hours (Table) 04/21/24 04/21/24 04/21/24 Range/Units 12:50 17:10 18:30 WBC (3.8-10.6) k/uL RBC (4.30-5.90) m/uL Hgb (13.0-17.5) gm/dL Hct (39.0-53.0) % MCV (80.0-100.0) fL MCHC (31.0-37.0) g/dL RDW (11.5-15.5) % Neutrophils # (Manual) (1.3-7.7) k/uL Lymphocytes # (Manual) (1.0-4.8) k/uL Myelocytes # (Manual) (0) k/uL Potassium 5.9 H (3.5-5.1) mmol/L BUN (9.0-27.0) mg/dL Creatinine (0.6-1.5) mg/dL Est GFR (CKD-EPI) (>=60) BUN/Creatinine Ratio (12.00-20.00) Ratio Glucose (70-110) mg/dL POC Glucose (mg/dL) 145 H (70-110) mg/dL Calcium (8.7-10.3) mg/dL Magnesium (1.5-2.4) mg/dL Crossmatch See Detail 04/21/24 04/21/24 04/22/24 Range/Units 22:13 23:07 04:33 WBC (3.8-10.6) k/uL RBC (4.30-5.90) m/uL Hgb (13.0-17.5) gm/dL Hct (39.0-53.0) % MCV (80.0-100.0) fL MCHC (31.0-37.0) g/dL RDW (11.5-15.5) % Neutrophils # (Manual) (1.3-7.7) k/uL Lymphocytes # (Manual) (1.0-4.8) k/uL Myelocytes # (Manual) (0) k/uL Potassium 5.5 H 5.8 H (3.5-5.1) mmol/L BUN 107.0 A* (9.0-27.0) mg/dL Creatinine 2.7 H (0.6-1.5) mg/dL Est GFR (CKD-EPI) 26 L (>=60) BUN/Creatinine Ratio 39.63 H (12.00-20.00) Ratio Glucose 150 H (70-110) mg/dL POC Glucose (mg/dL) 130 H (70-110) mg/dL Calcium 8.0 L (8.7-10.3) mg/dL Magnesium 2.8 H (1.5-2.4) mg/dL Crossmatch 04/22/24 04/22/24 04/22/24 Range/Units 04:33 05:39 11:42 WBC 10.7 H (3.8-10.6) k/uL RBC 2.00 L (4.30-5.90) m/uL Hgb 6.4 L* (13.0-17.5) gm/dL Hct 21.3 L (39.0-53.0) % MCV 106.5 H (80.0-100.0) fL MCHC 30.1 L (31.0-37.0) g/dL RDW 17.3 H (11.5-15.5) % Neutrophils # (Manual) 8.56 H (1.3-7.7) k/uL Lymphocytes # (Manual) 0.96 L (1.0-4.8) k/uL Myelocytes # (Manual) 0.11 H (0) k/uL Potassium (3.5-5.1) mmol/L BUN (9.0-27.0) mg/dL Creatinine (0.6-1.5) mg/dL Est GFR (CKD-EPI) (>=60) BUN/Creatinine Ratio (12.00-20.00) Ratio Glucose (70-110) mg/dL POC Glucose (mg/dL) 195 H 164 H (70-110) mg/dL Calcium (8.7-10.3) mg/dL Magnesium (1.5-2.4) mg/dL Crossmatch Assessment and Plan Assessment: Acute hypoxic respiratory failure secondary to an acute exacerbation of systolic congestive heart failure ejection fraction 35 to 40% Acute cellulitis of right foot with previous amputation of big toe and second toe, culture revealed no growth History of peripheral vessel occlusive disease and previous stenting of right SFA and right popliteal artery Severe pulmonary hypertension Paroxysmal atrial fibrillation, anticoagulated with Eliquis History of CVA with residual dysphagia requiring PEG tube placement Type 2 diabetes Acute on chronic stage IV kidney disease, baseline creatinine is in the range of 2.0 since 2019 Anemia suspect secondary to above, receiving a second unit of packed red blood cells Hyperkalemia secondary to above, remains on Lokelma Hypernatremia Chronic and ongoing tobacco dependence Plan: The patient was seen and evaluated Labs and medications reviewed Receiving a second unit of packed red blood cells today Remains on Nepro via PEG tube feedings Plan will be for home with home care at discharge I have personally seen and examined the patient, performed the documentation and the assessment and plan as written. Number of minutes spent on the visit: 10.
[2024-04-22] MEDS: SODIUM ZIRCONIUM CYCLOSILICATE 10 GM PACKET PO SCH (17:07)
[2024-04-22 18:09] LABS: Glucose,Whole Blood 196 mg/dL (70-110)
[2024-04-23 00:09] LABS: Glucose,Whole Blood 196 mg/dL (70-110)
[2024-04-23 06:06] LABS: Glucose,Whole Blood 171 mg/dL (70-110)
[2024-04-23 08:59] LABS: Magnesium 2.7 mg/dL (1.5-2.4)
[2024-04-23 09:20] LABS: ALT 35 U/L (10-49); AST 49 U/L (14-35); Alkaline Phosphatase 65 U/L (41-126); Calcium 8.2 mg/dL (8.7-10.3); Carbon Dioxide 29.6 mmol/L (21.6-31.8); Chloride 103 mmol/L (96-109); Glucose 146 mg/dL (70-110); Sodium 141 mmol/L (135-145); Total Bilirubin 0.2 mg/dL (0.3-1.2)
[2024-04-23 10:02] LABS: Basophils # (A) 0.12 X 10*3/uL (0.00-0.10); Basophils % (A) 0.9 %; Eosinophils # (A) 0.13 X 10*3/uL (0.04-0.35); Eosinophils % (A) 0.9 %; HCT 19.3 % (39.6-50.0); Lymphocytes # (A) 1.44 X 10*3/uL (0.90-5.00); Lymphocytes % (A) 10.5 %; MCH 31.6 pg (27.0-32.0); MCHC 31.1 g/dL (32.0-37.0); MCV 101.6 FL (80.0-97.0); Mean Platelet Volume 11.4 FL (9.5-12.2); Monocytes # (A) 1.29 X 10*3/uL (0.20-1.00); Monocytes % (A) 9.4 %; NRBC Per 100 WBC 0.34 X 10*3/uL (0.00-0.01); Neutrophils # (A) 10.44 X 10*3/uL (1.80-7.70); Neutrophils % (A) 75.9 %; Platelet Count 300 X 10*3/uL (140-440); RBC Morphology Normal (Normal); RDW 17.6 % (11.5-14.5); WBC 13.75 X 10*3/uL (4.50-10.00)
[2024-04-23 12:01] LABS: Glucose,Whole Blood 190 mg/dL (70-110)
--- NOTE | 2024-04-23 12:05 | P.PN ---
Subjective Patient is seen in follow-up for acute kidney injury on chronic kidney disease. Renal function little better. Hemoglobin remains low despite blood transfusions. Denies any active bleeding. Denies chest pain or shortness of breath. Has been voiding. Vital signs are stable. General: No acute distress. HEENT: Head exam is unremarkable. LUNGS: No audible rhonchi or wheezes. HEART: Rate and Rhythm are regular. ABDOMEN: Obese, nontender. PEG tube noted. EXTREMITITES: No edema. Objective - Vital Signs Vital signs: Vital Signs Temp 97.6 F 04/23/24 07:20 Pulse 94 04/23/24 09:11 Resp 20 04/23/24 11:39 BP 107/69 04/23/24 07:20 Pulse Ox 92 L 04/23/24 09:00 FiO2 Intake & Output 04/22/24 04/23/24 04/23/24 18:59 06:59 18:59 Intake Total 6218 694 272 Output Total 850 690 300 Balance 5368 4 -28 Weight 99.6 kg Intake: Intake, IV Titration 100 Amount Ampicillin-Sulbactam 3 gm 100 In Sodium Chloride 0.9% 100 ml @ 200 mls/hr IVPB Q8HR [facility] Rx#:[id number] Tube Feeding 5908 504 272 Blood Product 310 Rc As-1 Unit 310 [id number] Other 90 Output: Urine 850 690 300 Other: Voiding Method Toilet Toilet Urinal Urinal # Bowel Movements 1 - Labs CBC & Chem 7: 04/23/24 04:55 04/23/24 04:55 Labs: Abnormal Lab Results - Last 24 Hours (Table) 04/21/24 04/22/24 04/22/24 Range/Units 12:50 16:41 18:08 WBC (4.50-10.00) X 10*3/uL RBC (4.40-5.60) X 10*6/uL Hgb (13.0-17.0) g/dL Hct (39.6-50.0) % MCV (80.0-97.0) FL MCHC (32.0-37.0) g/dL RDW (11.5-14.5) % Immature Gran # (0.00-0.04) X 10*3/uL Neutrophils # (1.80-7.70) X 10*3/uL Monocytes # (0.20-1.00) X 10*3/uL Basophils # (0.00-0.10) X 10*3/uL NRBC/100 WBC Diff (0.00-0.01) X 10*3/uL Potassium 5.8 H (3.5-5.5) mmol/L BUN (9.0-27.0) mg/dL Creatinine (0.6-1.5) mg/dL Est GFR (CKD-EPI) (>=60) BUN/Creatinine Ratio (12.00-20.00) Ratio Glucose (70-110) mg/dL POC Glucose (mg/dL) 196 H (70-110) mg/dL Calcium (8.7-10.3) mg/dL Magnesium (1.5-2.4) mg/dL Total Bilirubin (0.3-1.2) mg/dL AST (14-35) U/L Total Protein (6.2-8.2) g/dL Albumin (3.8-4.9) g/dL Albumin/Globulin Ratio (1.60-3.17) Ratio Crossmatch See Detail 04/23/24 04/23/24 04/23/24 Range/Units 00:07 04:55 04:55 WBC 13.75 H (4.50-10.00) X 10*3/uL RBC 1.90 L (4.40-5.60) X 10*6/uL Hgb 6.0 A* (13.0-17.0) g/dL Hct 19.3 A* (39.6-50.0) % MCV 101.6 H (80.0-97.0) FL MCHC 31.1 L (32.0-37.0) g/dL RDW 17.6 H (11.5-14.5) % Immature Gran # 0.33 H (0.00-0.04) X 10*3/uL Neutrophils # 10.44 H (1.80-7.70) X 10*3/uL Monocytes # 1.29 H (0.20-1.00) X 10*3/uL Basophils # 0.12 H (0.00-0.10) X 10*3/uL NRBC/100 WBC Diff 0.34 H (0.00-0.01) X 10*3/uL Potassium (3.5-5.5) mmol/L BUN 109.0 A* (9.0-27.0) mg/dL Creatinine 2.5 H (0.6-1.5) mg/dL Est GFR (CKD-EPI) 28 L (>=60) BUN/Creatinine Ratio 43.60 H (12.00-20.00) Ratio Glucose 146 H (70-110) mg/dL POC Glucose (mg/dL) 196 H (70-110) mg/dL Calcium 8.2 L (8.7-10.3) mg/dL Magnesium 2.7 H (1.5-2.4) mg/dL Total Bilirubin 0.2 L (0.3-1.2) mg/dL AST 49 H (14-35) U/L Total Protein 5.0 L (6.2-8.2) g/dL Albumin 3.0 L (3.8-4.9) g/dL Albumin/Globulin Ratio 1.50 L (1.60-3.17) Ratio Crossmatch 04/23/24 04/23/24 Range/Units 06:04 12:00 WBC (4.50-10.00) X 10*3/uL RBC (4.40-5.60) X 10*6/uL Hgb (13.0-17.0) g/dL Hct (39.6-50.0) % MCV (80.0-97.0) FL MCHC (32.0-37.0) g/dL RDW (11.5-14.5) % Immature Gran # (0.00-0.04) X 10*3/uL Neutrophils # (1.80-7.70) X 10*3/uL Monocytes # (0.20-1.00) X 10*3/uL Basophils # (0.00-0.10) X 10*3/uL NRBC/100 WBC Diff (0.00-0.01) X 10*3/uL Potassium (3.5-5.5) mmol/L BUN (9.0-27.0) mg/dL Creatinine (0.6-1.5) mg/dL Est GFR (CKD-EPI) (>=60) BUN/Creatinine Ratio (12.00-20.00) Ratio Glucose (70-110) mg/dL POC Glucose (mg/dL) 171 H 190 H (70-110) mg/dL Calcium (8.7-10.3) mg/dL Magnesium (1.5-2.4) mg/dL Total Bilirubin (0.3-1.2) mg/dL AST (14-35) U/L Total Protein (6.2-8.2) g/dL Albumin (3.8-4.9) g/dL Albumin/Globulin Ratio (1.60-3.17) Ratio Crossmatch Assessment and Plan Plan: Assessment: 1. Acute kidney injury secondary to ATN secondary to acute blood loss anemia. Creatinine peaked at 2.7 this admission -2.5 today. Elevated BUN secondary to chronic kidney disease as well as GI bleed. No hydronephrosis noted on kidney ultrasound. UA fairly benign. 2. Chronic kidney disease stage IV baseline creatinine 1.8-2 secondary to solitary right kidney. History of left nephrectomy. 3. Chronic systolic CHF ejection fraction of 35 to 40% with severe pulmonary hypertension. 4. Diabetes mellitus. 5. Hypernatremia from lack of oral water intake. Improved. 6. Hyperkalemia secondary to acute kidney injury and GI bleed. Better. 7. Peripheral vascular disease. 8. Acute blood loss anemia with hemoglobin 6.0 today. No active bleeding. Status post blood transfusions and IV DDAVP. Also on Aranesp. GI following. Plan: Maintain tube feeds. Use low potassium in tube feeds. Scheduled to receive a unit of blood today. Maintain Lokelma. Avoid nephrotoxins. Endoscopy pending.
--- NOTE | 2024-04-23 13:16 | P.PN ---
Subjective Progress Note Date: 04/23/24 This is a 63-year-old white male with history of multiple medical problems including coronary artery disease, chronic atrial fibrillation, peripheral vessel occlusive disease, severe pulmonary hypertension, chronic obstructive pulmonary disease, patient normally sees Dr. Dillard on outpatient basis. Patient was never seen by a watermelon inspector. Admitted this time with few days history of increased shortness of breath, and according to the his O2 saturation was down in the 60s. Patient was brought into the ER, chest x-ray showed evidence of pulmonary edema, VQ scan negative for pulmonary embolism, patient was admitted and this consult was initiated. Patient is not a great historian, most of the information was obtained from his , apparently the patient had history of CVA in the past, and he had a previous PEG tube placement Labs on admission showed relatively normal CBC, no leukocytosis, D-dimer was a bit elevated at 2.10 and renal profile was abnormal with BUN of 43 and creatinine 2. 01 however BNP level was 12,300 and troponin was 0.043. Since admission, the patient received 1 dose of Lasix, and he is at least 1.5 L negative fluid balance The patient is seen today April 14, 2024 in follow-up on the selective care unit. He is currently sitting up at the bedside. Awake and alert in no acute distress. Breathing a bit easier today compared to yesterday. Currently maintaining good O2 saturations in the upper 90s on 3 L/min per nasal cannula. He is afebrile. Hemodynamically stable. Echocardiogram reveals impaired left ventricular systolic function with an ejection fraction of 35 to 40%. Severe pulmonary hypertension. Moderate to severely dilated left atrium. Right first toe culture is pending. Currently on Unasyn. Glucose 125. Being nourished with Glucerna at 51 MLS per hour via his PEG tube. Anticoagulated with Eliquis. Remains on diuretics. Making adequate urine. The patient is seen today April 15, 2024 in follow-up on the selective care unit. He is awake and alert in no acute distress. Maintaining O2 saturations in the 90s on 3 L/min per nasal cannula. Hemodynamically stable. White count 8.4. Hemoglobin 11.2. Platelets 321. Sodium 143. Potassium 4.9. Bicarb 29. BUN 45. Creatinine 1.99. Glucose 126. He is continued on Unasyn. Anticoagulated with Eliquis. Remains on bronchodilators. Remains on oral diuretics. Continued on Glucerna via his PEG tube. Barium swallow is pending so the patient can continue on tube feedings in the outpatient setting Patient was evaluated today on 04/16/2024, patient is doing well, comfortable, not in any distress, on 3 L nasal cannula with O2 sats of 96%. WBC is 8.5 hemoglobin 10.5 electrolytes are relatively normal with potassium of 5.2 BUN is 48 creatinine 1.94, steadily improving since admission patient had a successful swallow evaluation study that came back unremarkable. The patient was seen today April 17, 2024 in follow-up on the selective care unit. He is currently resting comfortably in bed. Awake and alert in no acute distress. Maintaining O2 saturations in the 90s on 2 L/min per nasal cannula. Right foot culture results revealing no growth. White count 9.6. Hemoglobin 1 0.9. Platelets 305. Sodium 145. Potassium 5.4. Bicarb 32. BUN 56. Creatinine 1.99. Glucose 133. He remains on bronchodilators. Anticoagulated with Eliquis. Antibiotics in the form of Unasyn. Remains on Glucerna tube feedings. The patient is seen today April 18, 2024 in follow-up on the regular medical floor. He is currently sitting up at the bedside. Awake and alert in no acute distress. Maintaining O2 saturations in the 90s on 2 L/min per nasal cannula. He has been afebrile. Hemodynamically stable. He remains on Glucerna at 51 mL/h which is goal. He remains on antibiotics in the form of Unasyn. His right foot dressing is dry and intact. Glucose 140. He remains on bronchodilators. Oral diuretics. Anticoagulated with Eliquis. The patient is seen today April 19, 2024 in follow-up on the regular medical floor. He is currently sitting up in bed. Awake and alert in no acute distress. He is maintaining good O2 saturations in the 90s on 3 L/min per nasal cannula. He remains on antibiotics in the form of Unasyn. He is being nourished with Glucerna at 51 mL/h which is his goal. He is continued on bronchodilators. Anticoagulated with Eliquis. Normal saline at 100 MLS per hour. White count 10.8. Hemoglobin 9.2. Platelets 307. Sodium 147. Potassium 6.3. BUN 84. Creatinine 2.3. Glucose 105. The patient is seen today April 20, 2024 in follow-up on the regular medical floor. He is currently sitting up at the bedside. Awake and alert in no acute distress. Maintaining good O2 saturations in the 90s on 4 L/min per nasal cannula. He remains on Glucerna at 51 mL/h which is goal. 0.45% normal saline at 75 MLS per hour. Potassium 5.6. Bicarb 30. BUN 90. Creatinine 2.4. Glucose 120. He received Lokelma yesterday for his hyperkalemia. Right foot cultures revealed no growth. Sputum culture revealed Jenae. He continues on Unasyn per ID service. He remains on bronchodilators. Anticoagulated with Eliquis. Remains on oral diuretics. The patient is seen today April 21, 2024 in follow-up on the regular medical floor. He is awake and alert in no acute distress. Sitting up at the bedside. Denies any worsening shortness of breath, cough or congestion. Continues to maintain good O2 saturations in the upper 90s on 4 L/min per nasal cannula. He is afebrile. Hemodynamically stable. White count 11.0. Hemoglobin 6.8. Platelets 324. Sodium 143. Potassium 5.9. Bicarb 29. BUN 98. Creatinine 2.4. Glucose 127. Nephrology is following. He remains on bronchodilators and Unasyn. The patient is seen today April 22, 2024 in follow-up on the regular medical floor. He is currently sitting up at the bedside. Awake and alert in no acute distress. He is receiving 2 units of packed red blood cells for hemoglobin of 6.4 today. White count 10.7. Platelets 308. Sodium 141. Potassium 5.8. Bicarb 28. BUN 107. Creatinine 2.7. Glucose 150. He remains on Unasyn. Continued on bronchodilators. Remains on Lokelma for his hyperkalemia. Receiving folate acid. The patient is seen today April 23, 2024 in follow-up on the regular medical floor. He is awake and alert in no acute distress. Maintaining O2 saturations in the 90s on 2 L/min per nasal cannula. Receiving normal saline at 20 MLS per hour. Continued on Nepro PEG tube feedings at 43 mL/h which is goal. He is status post 2 units of packed red blood cells. Hemoglobin 6.0 today. To receive 1 unit of packed red blood cells today unit. GI service is following. White count 13.7. Platelets 300. Sodium 141. Potassium 5.0. Bicarb 30. BUN 109. Creatinine 2.5. Glucose 146. He remains on Unasyn. Remains on Lokelma. Objective - Vital Signs Vital signs: Vital Signs Temp 97.6 F 04/23/24 07:20 Pulse 94 04/23/24 09:11 Resp 20 04/23/24 11:39 BP 107/69 04/23/24 07:20 Pulse Ox 92 L 04/23/24 09:00 FiO2 Intake & Output 04/22/24 04/23/24 04/23/24 18:59 06:59 18:59 Intake Total 6218 694 272 Output Total 850 690 300 Balance 5368 4 -28 Weight 99.6 kg Intake: Intake, IV Titration 100 Amount Ampicillin-Sulbactam 3 gm 100 In Sodium Chloride 0.9% 100 ml @ 200 mls/hr IVPB Q8HR [facility] Rx#:[id number] Tube Feeding 5908 504 272 Blood Product 310 Rc As-1 Unit 310 [id number] Other 90 Output: Urine 850 690 300 Other: Voiding Method Toilet Toilet Urinal Urinal # Bowel Movements 1 1 - Exam GENERAL EXAM: Alert, pleasant 63-year-old male, sitting up in bedside, on 2 L nasal cannula, in no apparent distress. HEAD: Normocephalic. EYES: Normal reaction of pupils, equal size. NOSE: Clear with pink turbinates. THROAT: No erythema or exudates. NECK: No masses, no JVD. CHEST: No chest wall deformity. LUNGS: Equal air entry with no crackles, wheeze, rhonchi or dullness. CVS: S1 and S2 normal with no audible murmur, regular rhythm. ABDOMEN: PEG tube exit site clean and dry. No hepatosplenomegaly, normal bowel sounds, no guarding or rigidity. SPINE: No scoliosis or deformity SKIN: Evidence of purulent drainage noted at the site of a previous amputation of the big toe and second toe on the right foot CENTRAL NERVOUS SYSTEM: No focal deficits, tone is normal in all 4 extremities. EXTREMITIES: Right foot dressing dry and intact. There is no peripheral edema. Peripheral pulses are intact. - Labs CBC & Chem 7: 04/23/24 04:55 04/23/24 04:55 Labs: Abnormal Lab Results - Last 24 Hours (Table) 04/21/24 04/22/24 04/22/24 Range/Units 12:50 16:41 18:08 WBC (4.50-10.00) X 10*3/uL RBC (4.40-5.60) X 10*6/uL Hgb (13.0-17.0) g/dL Hct (39.6-50.0) % MCV (80.0-97.0) FL MCHC (32.0-37.0) g/dL RDW (11.5-14.5) % Immature Gran # (0.00-0.04) X 10*3/uL Neutrophils # (1.80-7.70) X 10*3/uL Monocytes # (0.20-1.00) X 10*3/uL Basophils # (0.00-0.10) X 10*3/uL NRBC/100 WBC Diff (0.00-0.01) X 10*3/uL Potassium 5.8 H (3.5-5.5) mmol/L BUN (9.0-27.0) mg/dL Creatinine (0.6-1.5) mg/dL Est GFR (CKD-EPI) (>=60) BUN/Creatinine Ratio (12.00-20.00) Ratio Glucose (70-110) mg/dL POC Glucose (mg/dL) 196 H (70-110) mg/dL Calcium (8.7-10.3) mg/dL Magnesium (1.5-2.4) mg/dL Total Bilirubin (0.3-1.2) mg/dL AST (14-35) U/L Total Protein (6.2-8.2) g/dL Albumin (3.8-4.9) g/dL Albumin/Globulin Ratio (1.60-3.17) Ratio Crossmatch See Detail 04/23/24 04/23/24 04/23/24 Range/Units 00:07 04:55 04:55 WBC 13.75 H (4.50-10.00) X 10*3/uL RBC 1.90 L (4.40-5.60) X 10*6/uL Hgb 6.0 A* (13.0-17.0) g/dL Hct 19.3 A* (39.6-50.0) % MCV 101.6 H (80.0-97.0) FL MCHC 31.1 L (32.0-37.0) g/dL RDW 17.6 H (11.5-14.5) % Immature Gran # 0.33 H (0.00-0.04) X 10*3/uL Neutrophils # 10.44 H (1.80-7.70) X 10*3/uL Monocytes # 1.29 H (0.20-1.00) X 10*3/uL Basophils # 0.12 H (0.00-0.10) X 10*3/uL NRBC/100 WBC Diff 0.34 H (0.00-0.01) X 10*3/uL Potassium (3.5-5.5) mmol/L BUN 109.0 A* (9.0-27.0) mg/dL Creatinine 2.5 H (0.6-1.5) mg/dL Est GFR (CKD-EPI) 28 L (>=60) BUN/Creatinine Ratio 43.60 H (12.00-20.00) Ratio Glucose 146 H (70-110) mg/dL POC Glucose (mg/dL) 196 H (70-110) mg/dL Calcium 8.2 L (8.7-10.3) mg/dL Magnesium 2.7 H (1.5-2.4) mg/dL Total Bilirubin 0.2 L (0.3-1.2) mg/dL AST 49 H (14-35) U/L Total Protein 5.0 L (6.2-8.2) g/dL Albumin 3.0 L (3.8-4.9) g/dL Albumin/Globulin Ratio 1.50 L (1.60-3.17) Ratio Crossmatch 04/23/24 04/23/24 Range/Units 06:04 12:00 WBC (4.50-10.00) X 10*3/uL RBC (4.40-5.60) X 10*6/uL Hgb (13.0-17.0) g/dL Hct (39.6-50.0) % MCV (80.0-97.0) FL MCHC (32.0-37.0) g/dL RDW (11.5-14.5) % Immature Gran # (0.00-0.04) X 10*3/uL Neutrophils # (1.80-7.70) X 10*3/uL Monocytes # (0.20-1.00) X 10*3/uL Basophils # (0.00-0.10) X 10*3/uL NRBC/100 WBC Diff (0.00-0.01) X 10*3/uL Potassium (3.5-5.5) mmol/L BUN (9.0-27.0) mg/dL Creatinine (0.6-1.5) mg/dL Est GFR (CKD-EPI) (>=60) BUN/Creatinine Ratio (12.00-20.00) Ratio Glucose (70-110) mg/dL POC Glucose (mg/dL) 171 H 190 H (70-110) mg/dL Calcium (8.7-10.3) mg/dL Magnesium (1.5-2.4) mg/dL Total Bilirubin (0.3-1.2) mg/dL AST (14-35) U/L Total Protein (6.2-8.2) g/dL Albumin (3.8-4.9) g/dL Albumin/Globulin Ratio (1.60-3.17) Ratio Crossmatch Assessment and Plan Assessment: Acute hypoxic respiratory failure secondary to an acute exacerbation of systolic congestive heart failure ejection fraction 35 to 40% Acute cellulitis of right foot with previous amputation of big toe and second toe, culture revealed no growth History of peripheral vessel occlusive disease and previous stenting of right SF A and right popliteal artery Severe pulmonary hypertension Paroxysmal atrial fibrillation, anticoagulated with Eliquis History of CVA with residual dysphagia requiring PEG tube placement Type 2 diabetes Acute on chronic stage IV kidney disease, baseline creatinine is in the range of 2.0 since 2019 Anemia suspect secondary to above, receiving a 3rd unit of packed red blood cells Hyperkalemia secondary to above, remains on Lokelma Hypernatremia Chronic and ongoing tobacco dependence Plan: The patient was seen and evaluated Labs and medications reviewed Hemoglobin today 6.0 Receiving a 3rd unit of packed red blood cells today GI service following, planning endoscopy Remains on Nepro via PEG tube feedings I have personally seen and examined the patient, performed the documentation and the assessment and plan as written. Number of minutes spent on the visit: 10.
--- NOTE | 2024-04-23 13:24 | P.PN ---
Subjective HISTORY OF PRESENT ILLNESS: This is a 63-year-old male with a past medical history significant for paroxysmal atrial fibrillation, peripheral arterial disease, hypertension, hyperlipidemia, and diabetes. Patient follows in the office with Dr. Gonzalez. We have been asked to see the patient in consultation for elevated troponin. Patient examined at the bedside. The patient presented to the hospital with a chief complaint of shortness of breath. Patient states he has been feeling short of breath for the past couple weeks. He states that he checked his oxygen saturation at home and it was found to be in the high 80s. The patient denies having any chest pain or pressure. Patient was found to have elevated D-dimer of 2.10. He underwent VQ scan which was negative for pulmonary embolism. Vital signs are stable. It is noted that the patient underwent balloon angioplasty and stenting of right SFA and right popliteal. DIAGNOSTICS: - EKG reveals atrial fibrillation with controlled ventricular rate. - Chest xray cardiomegaly and mild pulmonary vascular congestion. - Laboratory data: WBC 8.7. Hemoglobin 11.4. Platelet count 283. D-dimer 2.10. Sodium 139. Potassium 4.9. BUN 41. Creatinine 2.01. Troponin 0.036. 0.038. 0.043. - Current home cardiac medications include amiodarone 100 mg daily, Eliquis 2.5 mg twice a day, Plavix 75 mg daily, losartan 25 mg daily, rosuvastatin 20 mg daily, metoprolol tartrate 50 mg twice a day. - Most recent echocardiogram obtained in June 2021 revealed ejection fraction 55 to 60%, severe pulmonary hypertension 04/14/2024 Patient examined this morning. Patient currently denies chest pain or pressure. He reports improvement in his shortness of breath. Echocardiogram completed re vealing ejection fraction 35 to 40%, mild MR, mild TR. 04/15/2024 Patient examined this morning at bedside. Patient currently denies chest pain or pressure. He denies shortness of breath. Vital signs are stable. 04/23 Cardiology was re-counseled that secondary to anemia and recommendations for bl ood thinners. Patient denies any chest pain or pressure. He does feel significantly short of breath. Hemoglobin down to 6.4 and packed red blood cells were reordered. He states he is feeling sick. And tired and is questioning whether he even wants blood transfusions. He denies any hematochezia or melena. PHYSICAL EXAM: VITAL SIGNS: Reviewed. GENERAL: Well-developed in no acute distress. HEENT: Head is normocephalic. Pupils are equal, round. Sclerae anicteric. Mucous membranes of the mouth are moist. Neck supple. No JVD or thyromegaly LUNGS: Respirations even and unlabored. Lungs essentially clear to auscultation bilaterally. HEART: Irregular rate and rhythm. S1 and S2 heard. ABDOMEN: Soft. Nondistended. Nontender. EXTREMITIES: Normal range of motion. No clubbing or cyanosis. Peripheral pulses intact. No lower extremity edema NEUROLOGIC: Awake and alert. Oriented x 3. ASSESSMENT: Shortness of breath, etiology unclear, VQ scan negative for PE, not volume overloaded on clinical examination Acute hypoxic respiratory failure requiring supplemental oxygen Abnormal troponins, flat, type II ME secondary to oxygen supply and demand mismatch Recent balloon angioplasty and stenting of right SFA and right popliteal artery, 04/08/2024 Severe pulmonary hypertension Peripheral arterial disease Paroxysmal atrial fibrillation History of CVA Hypertension Hyperlipidemia Diabetes History of PEG tube placement New onset cardiomyopathy, ischemic versus nonischemic Anemia PLAN: patient with significant anemia which is likely multifactorial. No obvious source of bleeding however. His anticoagulation has been held. Continue aspirin however hold Plavix for now as it has been approximately a month. GI recommendations appreciated with no obvious source of bleeding and no current plan to perform endoscopy. Consider hematology evaluation. Add haptoglobin for completeness sake to evaluate for any hemolysis. Prognosis guarded. Objective - Vital Signs Vital signs: Vital Signs Temp 97.6 F 04/23/24 07:20 Pulse 94 04/23/24 09:11 Resp 20 04/23/24 11:39 BP 107/69 04/23/24 07:20 Pulse Ox 92 L 04/23/24 09:00 FiO2 Intake & Output 04/22/24 04/23/24 04/23/24 18:59 06:59 18:59 Intake Total 4482 693 272 Output Total 850 690 300 Balance 5368 4 -28 Weight 99.6 kg Intake: Intake, IV Titration 100 Amount Ampicillin-Sulbactam 3 gm 100 In Sodium Chloride 0.9% 100 ml @ 200 mls/hr IVPB Q8HR [facility] Rx#:[id number] Tube Feeding 5900 504 272 Blood Product 310 Rc As-1 Unit 310 [id number] Other 90 Output: Urine 850 690 300 Other: Voiding Method Toilet Toilet Urinal Urinal # Bowel Movements 1 1 - Labs CBC & Chem 7: 04/23/24 04:55 04/23/24 04:55 Labs: Abnormal Lab Results - Last 24 Hours (Table) 04/21/24 04/22/24 04/22/24 Range/Units 12:50 16:41 18:08 WBC (4.50-10.00) X 10*3/uL RBC (4.40-5.60) X 10*6/uL Hgb (13.0-17.0) g/dL Hct (39.6-50.0) % MCV (80.0-97.0) FL MCHC (32.0-37.0) g/dL RDW (11.5-14.5) % Immature Gran # (0.00-0.04) X 10*3/uL Neutrophils # (1.80-7.70) X 10*3/uL Monocytes # (0.20-1.00) X 10*3/uL Basophils # (0.00-0.10) X 10*3/uL NRBC/100 WBC Diff (0.00-0.01) X 10*3/uL Potassium 5.8 H (3.5-5.5) mmol/L BUN (9.0-27.0) mg/dL Creatinine (0.6-1.5) mg/dL Est GFR (CKD-EPI) (>=60) BUN/Creatinine Ratio (12.00-20.00) Ratio Glucose (70-110) mg/dL POC Glucose (mg/dL) 196 H (70-110) mg/dL Calcium (8.7-10.3) mg/dL Magnesium (1.5-2.4) mg/dL Total Bilirubin (0.3-1.2) mg/dL AST (14-35) U/L Total Protein (6.2-8.2) g/dL Albumin (3.8-4.9) g/dL Albumin/Globulin Ratio (1.60-3.17) Ratio Crossmatch See Detail 04/23/24 04/23/24 04/23/24 Range/Units 00:07 04:55 04:55 WBC 13.75 H (4.50-10.00) X 10*3/uL RBC 1.90 L (4.40-5.60) X 10*6/uL Hgb 6.0 A* (13.0-17.0) g/dL Hct 19.3 A* (39.6-50.0) % MCV 101.6 H (80.0-97.0) FL MCHC 31.1 L (32.0-37.0) g/dL RDW 17.6 H (11.5-14.5) % Immature Gran # 0.33 H (0.00-0.04) X 10*3/uL Neutrophils # 10.44 H (1.80-7.70) X 10*3/uL Monocytes # 1.29 H (0.20-1.00) X 10*3/uL Basophils # 0.12 H (0.00-0.10) X 10*3/uL NRBC/100 WBC Diff 0.34 H (0.00-0.01) X 10*3/uL Potassium (3.5-5.5) mmol/L BUN 109.0 A* (9.0-27.0) mg/dL Creatinine 2.5 H (0.6-1.5) mg/dL Est GFR (CKD-EPI) 28 L (>=60) BUN/Creatinine Ratio 43.60 H (12.00-20.00) Ratio Glucose 146 H (70-110) mg/dL POC Glucose (mg/dL) 196 H (70-110) mg/dL Calcium 8.2 L (8.7-10.3) mg/dL Magnesium 2.7 H (1.5-2.4) mg/dL Total Bilirubin 0.2 L (0.3-1.2) mg/dL AST 49 H (14-35) U/L Total Protein 5.0 L (6.2-8.2) g/dL Albumin 3.0 L (3.8-4.9) g/dL Albumin/Globulin Ratio 1.50 L (1.60-3.17) Ratio Crossmatch 04/23/24 04/23/24 Range/Units 06:04 12:00 WBC (4.50-10.00) X 10*3/uL RBC (4.40-5.60) X 10*6/uL Hgb (13.0-17.0) g/dL Hct (39.6-50.0) % MCV (80.0-97.0) FL MCHC (32.0-37.0) g/dL RDW (11.5-14.5) % Immature Gran # (0.00-0.04) X 10*3/uL Neutrophils # (1.80-7.70) X 10*3/uL Monocytes # (0.20-1.00) X 10*3/uL Basophils # (0.00-0.10) X 10*3/uL NRBC/100 WBC Diff (0.00-0.01) X 10*3/uL Potassium (3.5-5.5) mmol/L BUN (9.0-27.0) mg/dL Creatinine (0.6-1.5) mg/dL Est GFR (CKD-EPI) (>=60) BUN/Creatinine Ratio (12.00-20.00) Ratio Glucose (70-110) mg/dL POC Glucose (mg/dL) 171 H 190 H (70-110) mg/dL Calcium (8.7-10.3) mg/dL Magnesium (1.5-2.4) mg/dL Total Bilirubin (0.3-1.2) mg/dL AST (14-35) U/L Total Protein (6.2-8.2) g/dL Albumin (3.8-4.9) g/dL Albumin/Globulin Ratio (1.60-3.17) Ratio Crossmatch
--- NOTE | 2024-04-23 13:24 | P.PN ---
Subjective Progress Note Date: 04/23/24 Principal diagnosis: Reason for follow-up is right foot wound and cellulitis Patient is a 63-year-old male with a past medical history significant for diabetes mellitus hypertension hyperlipidemia pneumonia CVA TIA COPD patient did have a right big toe amputation done by and was recently admitted to the hospital concerning for pain to the right foot and cold feeling patient has been diagnosed with PAD and is s/p peripheral intervention by interventional cardiology with angioplasty of SFA and right popliteal arteries however unsuccessful angioplasty of the right anterior tibial artery patient presented to hospital with weakness hypoxemia. On today's evaluation that is 04/23/2024, Patient is afebrile patient is currently on 2 L current oxygen and denies having any shortness of breath, the patient denies any chest pain or cough, the patient denies any nausea vomiting did not have any abdominal pain and no diarrhea or pain to the right foot wound area. Patient did have a hemoglobin of 6.0 white count is 13.75 creatinine is 2.5 Objective - Vital Signs Vital signs: Vital Signs Temp 97.6 F 04/23/24 07:20 Pulse 94 04/23/24 09:11 Resp 20 04/23/24 11:39 BP 107/69 04/23/24 07:20 Pulse Ox 92 L 04/23/24 09:00 FiO2 Intake & Output 04/22/24 04/23/24 04/23/24 18:59 06:59 18:59 Intake Total 6218 694 272 Output Total 850 690 300 Balance 5368 4 -28 Weight 99.6 kg Intake: Intake, IV Titration 100 Amount Ampicillin-Sulbactam 3 gm 100 In Sodium Chloride 0.9% 100 ml @ 200 mls/hr IVPB Q8HR [facility] Rx#:[id number] Tube Feeding 5908 504 272 Blood Product 310 Rc As-1 Unit 310 [id number] Other 90 Output: Urine 850 690 300 Other: Voiding Method Toilet Toilet Urinal Urinal # Bowel Movements 1 1 - Exam GENERAL DESCRIPTION: Middle-age male lying in bed in no distress RESPIRATORY SYSTEM: Unlabored breathing , decreased breath sounds at bases HEART: S1 S2 regular rate and rhythm , ABDOMEN: Soft , no tenderness EXTREMITIES: Right foot wound base with no significant slough tissue surrounding redness - Labs CBC & Chem 7: 04/23/24 04:55 04/23/24 04:55 Labs: Abnormal Lab Results - Last 24 Hours (Table) 04/21/24 04/22/24 04/22/24 Range/Units 12:50 16:41 18:08 WBC (4.50-10.00) X 10*3/uL RBC (4.40-5.60) X 10*6/uL Hgb (13.0-17.0) g/dL Hct (39.6-50.0) % MCV (80.0-97.0) FL MCHC (32.0-37.0) g/dL RDW (11.5-14.5) % Immature Gran # (0.00-0.04) X 10*3/uL Neutrophils # (1.80-7.70) X 10*3/uL Monocytes # (0.20-1.00) X 10*3/uL Basophils # (0.00-0.10) X 10*3/uL NRBC/100 WBC Diff (0.00-0.01) X 10*3/uL Potassium 5.8 H (3.5-5.5) mmol/L BUN (9.0-27.0) mg/dL Creatinine (0.6-1.5) mg/dL Est GFR (CKD-EPI) (>=60) BUN/Creatinine Ratio (12.00-20.00) Ratio Glucose (70-110) mg/dL POC Glucose (mg/dL) 196 H (70-110) mg/dL Calcium (8.7-10.3) mg/dL Magnesium (1.5-2.4) mg/dL Total Bilirubin (0.3-1.2) mg/dL AST (14-35) U/L Total Protein (6.2-8.2) g/dL Albumin (3.8-4.9) g/dL Albumin/Globulin Ratio (1.60-3.17) Ratio Crossmatch See Detail 04/23/24 04/23/24 04/23/24 Range/Units 00:07 04:55 04:55 WBC 13.75 H (4.50-10.00) X 10*3/uL RBC 1.90 L (4.40-5.60) X 10*6/uL Hgb 6.0 A* (13.0-17.0) g/dL Hct 19.3 A* (39.6-50.0) % MCV 101.6 H (80.0-97.0) FL MCHC 31.1 L (32.0-37.0) g/dL RDW 17.6 H (11.5-14.5) % Immature Gran # 0.33 H (0.00-0.04) X 10*3/uL Neutrophils # 10.44 H (1.80-7.70) X 10*3/uL Monocytes # 1.29 H (0.20-1.00) X 10*3/uL Basophils # 0.12 H (0.00-0.10) X 10*3/uL NRBC/100 WBC Diff 0.34 H (0.00-0.01) X 10*3/uL Potassium (3.5-5.5) mmol/L BUN 109.0 A* (9.0-27.0) mg/dL Creatinine 2.5 H (0.6-1.5) mg/dL Est GFR (CKD-EPI) 28 L (>=60) BUN/Creatinine Ratio 43.60 H (12.00-20.00) Ratio Glucose 146 H (70-110) mg/dL POC Glucose (mg/dL) 196 H (70-110) mg/dL Calcium 8.2 L (8.7-10.3) mg/dL Magnesium 2.7 H (1.5-2.4) mg/dL Total Bilirubin 0.2 L (0.3-1.2) mg/dL AST 49 H (14-35) U/L Total Protein 5.0 L (6.2-8.2) g/dL Albumin 3.0 L (3.8-4.9) g/dL Albumin/Globulin Ratio 1.50 L (1.60-3.17) Ratio Crossmatch 04/23/24 04/23/24 Range/Units 06:04 12:00 WBC (4.50-10.00) X 10*3/uL RBC (4.40-5.60) X 10*6/uL Hgb (13.0-17.0) g/dL Hct (39.6-50.0) % MCV (80.0-97.0) FL MCHC (32.0-37.0) g/dL RDW (11.5-14.5) % Immature Gran # (0.00-0.04) X 10*3/uL Neutrophils # (1.80-7.70) X 10*3/uL Monocytes # (0.20-1.00) X 10*3/uL Basophils # (0.00-0.10) X 10*3/uL NRBC/100 WBC Diff (0.00-0.01) X 10*3/uL Potassium (3.5-5.5) mmol/L BUN (9.0-27.0) mg/dL Creatinine (0.6-1.5) mg/dL Est GFR (CKD-EPI) (>=60) BUN/Creatinine Ratio (12.00-20.00) Ratio Glucose (70-110) mg/dL POC Glucose (mg/dL) 171 H 190 H (70-110) mg/dL Calcium (8.7-10.3) mg/dL Magnesium (1.5-2.4) mg/dL Total Bilirubin (0.3-1.2) mg/dL AST (14-35) U/L Total Protein (6.2-8.2) g/dL Albumin (3.8-4.9) g/dL Albumin/Globulin Ratio (1.60-3.17) Ratio Crossmatch Assessment and Plan (1) Cellulitis of right foot Current Visit: No Status: Acute Code(s): L03.115 - CELLULITIS OF RIGHT LOWER LIMB SNOMED Code(s): 58203294474769934 (2) Diabetic foot ulcer Current Visit: No Status: Acute Code(s): E11.621 - TYPE 2 DIABETES MELLITUS WITH FOOT ULCER; L97.509 - NON-PRESSURE CHRONIC ULCER OTH PRT UNSP FOOT W UNSP SEVERITY SNOMED Code(s): 604854615 Plan: 1patient presenting to the hospital mostly with generalized weakness low O2 sats possibly underlying cardiac etiology for the patient being managed by cardiology, patient also have a 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 2patient is afebrile, noticed to have slight worsening of the white count possibly reactive as the patient did have evidence of GI bleed with a hemoglobin drawn currently being monitored by GI services and apparently waiting for endoscopy we will continue patient on Unasyn for his diabetic foot infection and cellulitis Dictation was produced using [employer] dictation software. please excuse any grammatical, word or spelling errors. Time with Patient: Less than 30
--- NOTE | 2024-04-23 14:04 | P.PN ---
Subjective Progress Note Date: 04/23/24 Principal diagnosis: Anemia This is a pleasant 63-year-old male admitted 10 days ago with complaints of dyspnea and weakness. He was admitted prior to that for limb ischemia and cellulitis and has a history of right great toe amputation and wound which was debrided during this hospitalization. During that time he underwent stenting with Dr. Gonzalez on 04/08/2024. He has been on aspirin 81 mg daily, Plavix 75 mg daily and Eliquis 2.5 mg twice daily. Past medical history includes atrial fibrillation on Eliquis, chronic kidney disease, coronary artery disease status post recent stenting, COPD, CVA, diabetes mellitus, hyperlipidemia, hypertension, peripheral vascular disease, and PEG tube due to dysphagia following stroke. During this hospitalization patient had drop in hemoglobin requiring blood transfusion. Gastroenterology consulted for low hemoglobin. Patient states he gets his nutrition through tube feeding which recently was changed he believes due to high blood sugar. He denies any blood in his stool or black stool. Denies any abdominal pain, nausea or vomiting. No history of GI bleed. Last endoscopy was June 2023 where he underwent upper endoscopy with Dr. Zacarias with findings of mild gastritis. Colonoscopy was about 10 years ago. Admitting hemoglobin 12.7 yesterday patient had a drop in his hemoglobin to 6.5 given 1 unit of blood with a repeat hemoglobin 6.8. Today is currently pending. 04/23/2024 Patient seen and examined today as a follow-up. He continues to deny any abdominal pain, nausea or vomiting. When asked if he had a bowel movement he states he is unsure nursing reports he had a bowel movement through the night and was reported as dark. Hemoglobin dropped to 6.0, he is status post 2 units of blood with 1 ordered. Objective - Vital Signs Vital signs: Vital Signs Temp 97.6 F 04/23/24 07:20 Pulse 84 04/23/24 07:20 Resp 17 04/23/24 07:20 BP 107/69 04/23/24 07:20 Pulse Ox 92 L 04/23/24 07:20 FiO2 Intake & Output 04/22/24 04/23/24 04/23/24 18:59 06:59 18:59 Intake Total 6218 694 Output Total 850 690 Balance 5368 4 Weight 99.6 kg Intake: Intake, IV Titration 100 Amount Ampicillin-Sulbactam 3 gm 100 In Sodium Chloride 0.9% 100 ml @ 200 mls/hr IVPB Q8HR [facility] Rx#:[id number] Tube Feeding 5908 504 Blood Product 310 Rc As-1 Unit 310 [id number] Other 90 Output: Urine 850 690 Other: Voiding Method Toilet Urinal # Bowel Movements 1 - Exam General appearance: The patient is alert, oriented, appears in no acute distress. HET: Head is normocephalic and atraumatic. Conjunctiva pink. Sclera anicteric. Neck: Supple without lymphadenopathy. Abdomen: Soft, nontender, nondistended. PEG tube in place. Extremities: Normal skin color and turgor. No pedal edema Skin: No rashes, no jaundice Neurological: No focal deficits. Alert and oriented. - Labs CBC & Chem 7: 04/23/24 04:55 04/23/24 04:55 Labs: Abnormal Lab Results - Last 24 Hours (Table) 04/21/24 04/22/24 04/22/24 Range/Units 12:50 04:33 04:33 WBC 10.7 H (3.8-10.6) k/uL RBC 2.00 L (4.30-5.90) m/uL Hgb 6.4 L* (13.0-17.5) gm/dL Hct 21.3 L (39.0-53.0) % MCV 106.5 H (80.0-100.0) fL MCHC 30.1 L (31.0-37.0) g/dL RDW 17.3 H (11.5-15.5) % Neutrophils # (Manual) 8.56 H (1.3-7.7) k/uL Lymphocytes # (Manual) 0.96 L (1.0-4.8) k/uL Myelocytes # (Manual) 0.11 H (0) k/uL Potassium 5.8 H (3.5-5.5) mmol/L BUN 107.0 A* (9.0-27.0) mg/dL Creatinine 2.7 H (0.6-1.5) mg/dL Est GFR (CKD-EPI) 26 L (>=60) BUN/Creatinine Ratio 39.63 H (12.00-20.00) Ratio Glucose 150 H (70-110) mg/dL POC Glucose (mg/dL) (70-110) mg/dL Calcium 8.0 L (8.7-10.3) mg/dL Magnesium 2.8 H (1.5-2.4) mg/dL Crossmatch See Detail 04/22/24 04/22/24 04/22/24 Range/Units 11:42 16:41 18:08 WBC (3.8-10.6) k/uL RBC (4.30-5.90) m/uL Hgb (13.0-17.5) gm/dL Hct (39.0-53.0) % MCV (80.0-100.0) fL MCHC (31.0-37.0) g/dL RDW (11.5-15.5) % Neutrophils # (Manual) (1.3-7.7) k/uL Lymphocytes # (Manual) (1.0-4.8) k/uL Myelocytes # (Manual) (0) k/uL Potassium 5.8 H (3.5-5.5) mmol/L BUN (9.0-27.0) mg/dL Creatinine (0.6-1.5) mg/dL Est GFR (CKD-EPI) (>=60) BUN/Creatinine Ratio (12.00-20.00) Ratio Glucose (70-110) mg/dL POC Glucose (mg/dL) 164 H 196 H (70-110) mg/dL Calcium (8.7-10.3) mg/dL Magnesium (1.5-2.4) mg/dL Crossmatch 04/23/24 04/23/24 04/23/24 Range/Units 00:07 04:55 06:04 WBC (3.8-10.6) k/uL RBC (4.30-5.90) m/uL Hgb (13.0-17.5) gm/dL Hct (39.0-53.0) % MCV (80.0-100.0) fL MCHC (31.0-37.0) g/dL RDW (11.5-15.5) % Neutrophils # (Manual) (1.3-7.7) k/uL Lymphocytes # (Manual) (1.0-4.8) k/uL Myelocytes # (Manual) (0) k/uL Potassium (3.5-5.5) mmol/L BUN (9.0-27.0) mg/dL Creatinine (0.6-1.5) mg/dL Est GFR (CKD-EPI) (>=60) BUN/Creatinine Ratio (12.00-20.00) Ratio Glucose (70-110) mg/dL POC Glucose (mg/dL) 196 H 171 H (70-110) mg/dL Calcium (8.7-10.3) mg/dL Magnesium 2.7 H (1.5-2.4) mg/dL Crossmatch Assessment and Plan (1) Anemia Narrative/Plan: 63-year-old male admitted for last 10 days duration for generalized weakness and shortness of breath. Patient with multiple comorbidities including recent cardiac stenting on aspirin and Plavix, atrial fibrillation on Eliquis, COPD, chronic kidney disease and diabetes who has presented with a drop in his hemo globin without any signs of GI bleed. Unclear etiology, likely multifactorial including dietary, anemia of chronic disease and possible acute blood loss anemia. At this time recommend medical management transfuse for hemoglobin less than 7 and monitor. Patient has had further drops in his hemoglobin requiring 3 units of blood. Will plan to proceed with upper and lower endoscopy tomorrow. Current Visit: Yes Status: Acute Code(s): D64.9 - ANEMIA, UNSPECIFIED SNOMED Code(s): 049981214 (2) Diabetes Current Visit: Yes Status: Acute Code(s): E11.9 - TYPE 2 DIABETES MELLITUS WITHOUT COMPLICATIONS SNOMED Code(s): 79166018 (3) Coronary artery disease Narrative/Plan: Recent cardiac stent within the last 1 month. Patient continues on aspirin, hold Plavix. Current Visit: Yes Status: Acute Code(s): I25.10 - ATHSCL HEART DISEASE OF [place] CORONARY ARTERY W/O ANG PCTRS SNOMED Code(s): 75012511 (4) Atrial fibrillation Narrative/Plan: On Eliquis, currently on hold Current Visit: Yes Status: Acute Code(s): I48.91 - UNSPECIFIED ATRIAL FIBRILLATION SNOMED Code(s): 11814153 (5) Chronic kidney disease Current Visit: Yes Status: Acute Code(s): N18.9 - CHRONIC KIDNEY DISEASE, UNSPECIFIED SNOMED Code(s): 090824385 (6) Generalized weakness Current Visit: Yes Status: Acute Code(s): R53.1 - WEAKNESS SNOMED Code(s): 67294046 (7) Peripheral vascular disease Current Visit: No Status: Acute Code(s): I73.9 - PERIPHERAL VASCULAR D ISEASE, UNSPECIFIED SNOMED Code(s): 914512076 Plan: 1. Continue symptomatic and supportive care 2. Hold Eliquis 3. Daily CBC, transfuse for hemoglobin less than 7 4. Continue PEG tube feedings, hold them at 1700 5. Give half of GoLytely this evening starting at 1700 then give the rest at 0500 tomorrow morning through PEG tube 6. Plan for upper and lower endoscopy tomorrow 7. Continue with recommendations from nephrology 8. Rest of medical management per primary medical team Thank you for this consultation, we will continue to follow. Dr. Nandini Villa I agree with the dictator's note, documented as a scribe by Fariba BECK.
[2024-04-23 17:25] LABS: Glucose,Whole Blood 194 mg/dL (70-110)
[2024-04-23] MEDS: PEG 3350 (236 GM/BTL) + LYTES 4,000 ML BOTTLE PEG/G-TUBE ONE (17:28)
--- NOTE | 2024-04-23 17:30 | P.PN ---
Subjective Progress Note Date: 04/23/24 Everett Juárez, is a 63-year-old male who presented to [facility] emergency room with a chief complaint of worsening shortness of breath and generalized weakness, patient was recently admitted to [facility] with peripheral vascular disease right foot osteomyelitis and underwent stenting of the right SFA by Dr. Dillard, he has a previous history of right great toe amputation. He was evaluated in the emergency room vital examination on presentation revealed a temperature of 98.9 pulse 110 respiration 18 blood pressure 114/72 pulse ox 96% on room air Laboratory data reveals a white blood count of 8.7 hemoglobin 11.4 platelet count 283 sodium 139 potassium 4.9 chloride 110 CO2 23 BUN 41 creatinine 2.01 D- dimer was elevated at 2.10, troponin level was elevated at 0.043 Testing in the emergency room revealed chest x-ray done in the emergency room revealed cardiomegaly and mild pulmonary vascular congestion suggestive of congestive heart failure, VQ scan showed no evidence for pulmonary embolism, EKG revealed atrial fibrillation with moderate T wave abnormalities suggestive of lateral ischemia. Patient was admitted to medical floor for further evaluation and treatment Past medical history is significant for history of atrial fibrillation, history of peripheral arterial disease with previous history of right great toe amputation, history of COPD, history of diabetes mellitus type 2, history of hyperkalemia, history of chronic kidney disease. On review of systems patient is alert and oriented x 3 in no apparent distress, he is complaining of generalized weakness, complaining of shortness of breath, which is worse with activity, and complaining of right foot pain, otherwise he denies any complaints, there is no fever or chills no headache or dizziness no chest pain, no cough no nausea or vomiting no abdominal pain no diarrhea and no urinary symptoms On 04/14/2024 patient is alert and oriented 3.Patient remains on IV Unasyn and IV Lasix. 2-D echo completed showing an EF of 35-40%. Current vital signs temp 98.3, heart 81, respiratory rate 18, blood pressure 135/67 with a pulse ox of 100% on 3 L. Patient reports improvement with shortness of breath. Patient denies nausea vomiting or diarrhea. Patient denies any urinary burning or frequency On 04/15/2024 Patient is alert and oriented 3. Patient remains on IV Unasyn. Patient has been transitioned to by mouth Lasix.Current vital signs temp 97.1, heart rate 98, respiratory rate 18, blood pressure 121/79 with pulse ox 96% on 3 L. Patient denies chest pain or shortness breath. Patient denies nausea vomiting or diarrhea. Patient denies any urinary burning or frequency. On 04/16/2024 he is alert and oriented x 3 in no apparent distress he reports improvement in his shortness of breath there is no fever or chills no headache or dizziness no chest pain no cough no nausea or vomiting no abdominal pain no diarrhea and no urinary symptoms. On 04/17/2024 patient is alert and oriented x 3. Current vital signs Temp 98.1, heart rate 100, respiratory rate 16, blood pressure 153/81 with a pulse ox of 97% on 2 L. Patient remains on IV Unasyn. Awaiting final antibiotic recommenda tions per ID. Patient denies chest pain or shortness of breath. Patient denies nausea vomiting or diarrhea. Patient denies any urinary burning or frequency. On 04/18/2024 patient was seen and examined on the medical floor he is alert and oriented x 3 in no apparent distress there is no fever or chills no headache or dizziness no chest pain no shortness of breath no cough no nausea or vomiting no abdominal pain no diarrhea no urinary symptoms, he is still maintained on oxygen supplements, patient need to be assessed for need for home oxygen, he is also maintained on tube feeding, case planner is working on arrangement for tube feeding at home. Otherwise continue with current management will recheck in a.m.. On 04/19/2024 patient is alert and oriented x 3. Patient is maintained on 3 L n roberth cannula. Patient also maintained on IV Unasyn. Awaiting final IV recommendations from infectious disease. Current vital signs Temp 98.2, heart rate 82, blood pressure 116/70 with a pulse ox of 97% on 3 L patient denies chest pain or shortness of breath. Patient denies nausea vomiting or diarrhea. Patient denies any urinary burning or frequency On 04/20/2024 patient was seen and examined on the medical floor he is alert and oriented x 3 in no apparent distress, there is no fever or chills no headache or dizziness no chest pain no shortness of breath no cough no nausea or vomiting no abdominal pain no diarrhea no urinary symptoms, patient is still having difficulty with hyperkalemia, he is maintained on IV fluids and [facility] are following, will recheck labs in a.m. On 04/21/2024 patient is alert and oriented x 3. Potassium remains elevated at 5.9 awaiting further recommendations from nephrology standpoint. Patient denies chest pain or shortness of breath. Patient denies nausea vomiting or diarrhea. Patient denies any urinary burning or frequency On 04/22/2024 patient is alert and oriented x 3. Patient received 1 unit PRBCs for hemoglobin of 6.8 yesterday. GI services were consulted stool for occult blood ordered. Nephrology service is following for elevated potassium level. At this time patient denies chest pain or shortness of breath. Patient denies nausea vomiting or diarrhea. Patient denies any urinary burning frequency. On 04/23/2024 patient was seen and examined on the medical floor he is alert and oriented x 3 in no apparent distress, his hemoglobin today is again 6.01 unit of red blood cell transfusion was ordered, he was reevaluated by gastroenterology and plans are for EGD and colonoscopy tomorrow, otherwise he denies any complaints there is no fever or chills no headache or dizziness no chest pain no shortness of breath no cough no nausea or vomiting no abdominal pain no diarrhea no urinary symptoms Objective - Vital Signs Vital signs: Vital Signs Temp 97.6 F 04/23/24 07:20 Pulse 94 04/23/24 09:11 Resp 17 04/23/24 07:20 BP 107/69 04/23/24 07:20 Pulse Ox 92 L 04/23/24 09:00 FiO2 Intake & Output 04/22/24 04/23/24 04/23/24 18:59 06:59 18:59 Intake Total 6218 694 Output Total 850 690 Balance 5368 4 Weight 99.6 kg Intake: Intake, IV Titration 100 Amount Ampicillin-Sulbactam 3 gm 100 In Sodium Chloride 0.9% 100 ml @ 200 mls/hr IVPB Q8HR [facility] Rx#:[id number] Tube Feeding 4587 787 Blood Product 310 Rc As-1 Unit 310 [id number] Other 90 Output: Urine 850 690 Other: Voiding Method Toilet Urinal # Bowel Movements 1 - Exam In general patient is alert and oriented x 3 in no distress HEENT head normocephalic and atraumatic Neck is supple no JVD no goiter no lymphadenopathy no carotid bruit Chest examination reveals a scattered crackles in both lung [place] no wheezing Cardiac exam reveals irregular heart sounds S1 and S2 no gallops no murmurs Abdomen is soft nontender no organomegaly with normal bowel sounds Extremity exam reveals no edema no cyanosis or clubbing, the right great toe is amputated with a large ulcer at the base of the amputated right great toe with purulent discharge Neurological examination reveals no gross focal deficits - Labs CBC & Chem 7: 04/23/24 04:55 04/23/24 04:55 Labs: Abnormal Lab Results - Last 24 Hours (Table) 04/21/24 04/22/24 04/22/24 Range/Units 12:50 04:33 11:42 WBC 10.7 H (3.8-10.6) k/uL RBC 2.00 L (4.30-5.90) m/uL Hgb 6.4 L* (13.0-17.5) gm/dL Hct 21.3 L (39.0-53.0) % MCV 106.5 H (80.0-100.0) fL MCHC 30.1 L (31.0-37.0) g/dL RDW 17.3 H (11.5-15.5) % Neutrophils # (Manual) 8.56 H (1.3-7.7) k/uL Lymphocytes # (Manual) 0.96 L (1.0-4.8) k/uL Myelocytes # (Manual) 0.11 H (0) k/uL Potassium (3.5-5.5) mmol/L BUN (9.0-27.0) mg/dL Creatinine (0.6-1.5) mg/dL Est GFR (CKD-EPI) (>=60) BUN/Creatinine Ratio (12.00-20.00) Ratio Glucose (70-110) mg/dL POC Glucose (mg/dL) 164 H (70-110) mg/dL Calcium (8.7-10.3) mg/dL Magnesium (1.5-2.4) mg/dL Total Bilirubin (0.3-1.2) mg/dL AST (14-35) U/L Total Protein (6.2-8.2) g/dL Albumin (3.8-4.9) g/dL Albumin/Globulin Ratio (1.60-3.17) Ratio Crossmatch See Detail 04/22/24 04/22/24 04/23/24 Range/Units 16:41 18:08 00:07 WBC (3.8-10.6) k/uL RBC (4.30-5.90) m/uL Hgb (13.0-17.5) gm/dL Hct (39.0-53.0) % MCV (80.0-100.0) fL MCHC (31.0-37.0) g/dL RDW (11.5-15.5) % Neutrophils # (Manual) (1.3-7.7) k/uL Lymphocytes # (Manual) (1.0-4.8) k/uL Myelocytes # (Manual) (0) k/uL Potassium 5.8 H (3.5-5.5) mmol/L BUN (9.0-27.0) mg/dL Creatinine (0.6-1.5) mg/dL Est GFR (CKD-EPI) (>=60) BUN/Creatinine Ratio (12.00-20.00) Ratio Glucose (70-110) mg/dL POC Glucose (mg/dL) 196 H 196 H (70-110) mg/dL Calcium (8.7-10.3) mg/dL Magnesium (1.5-2.4) mg/dL Total Bilirubin (0.3-1.2) mg/dL AST (14-35) U/L Total Protein (6.2-8.2) g/dL Albumin (3.8-4.9) g/dL Albumin/Globulin Ratio (1.60-3.17) Ratio Crossmatch 04/23/24 04/23/24 Range/Units 04:55 06:04 WBC (3.8-10.6) k/uL RBC (4.30-5.90) m/uL Hgb (13.0-17.5) gm/dL Hct (39.0-53.0) % MCV (80.0-100.0) fL MCHC (31.0-37.0) g/dL RDW (11.5-15.5) % Neutrophils # (Manual) (1.3-7.7) k/uL Lymphocytes # (Manual) (1.0-4.8) k/uL Myelocytes # (Manual) (0) k/uL Potassium (3.5-5.5) mmol/L BUN 109.0 A* (9.0-27.0) mg/dL Creatinine 2.5 H (0.6-1.5) mg/dL Est GFR (CKD-EPI) 28 L (>=60) BUN/Creatinine Ratio 43.60 H (12.00-20.00) Ratio Glucose 146 H (70-110) mg/dL POC Glucose (mg/dL) 171 H (70-110) mg/dL Calcium 8.2 L (8.7-10.3) mg/dL Magnesium 2.7 H (1.5-2.4) mg/dL Total Bilirubin 0.2 L (0.3-1.2) mg/dL AST 49 H (14-35) U/L Total Protein 5.0 L (6.2-8.2) g/dL Albumin 3.0 L (3.8-4.9) g/dL Albumin/Globulin Ratio 1.50 L (1.60-3.17) Ratio Crossmatch Assessment and Plan Plan: Worsening shortness of breath, multifactorial, possibly related to acute congestive heart failure, and underlying COPD Atrial fibrillation, with rapid ventricular response on presentation, heart rate was 110 New onset cardiomyopathy. Generalized weakness Large ulcer at the base of the right great toe with purulent discharge, patient was maintained on oral Augmentin as outpatient, infectious disease consultation requested Underlying history of peripheral arterial disease, with recent history of angioplasty and stent placement to the right lower extremity on 04/08/2024 Underlying history of diabetes mellitus Underlying history of chronic obstructive pulmonary disease Underlying history of chronic kidney disease Underlying history of hyperkalemia Underlying history of chronic continued tobacco abuse At this time patient is admitted to telemetry floor Home medications reviewed and reordered Consultation for cardiology and pulmonary were requested in the emergency room For DVT prophylaxis, patient is maintained on scds (eliquis on hold due to anemia) Will add infectious disease consultation in regard to base of right great toe ulcer Will follow closely
[2024-04-23 23:42] LABS: Glucose,Whole Blood 110 mg/dL (70-110)
[2024-04-24 06:05] LABS: Glucose,Whole Blood 116 mg/dL (70-110)
[2024-04-24] MEDS: SODIUM CHLORIDE 0.9% 500 ML 500 ML IV ONE ×2 (06:43→07:43)
[2024-04-24 07:27] LABS: Anisocytosis Moderate; Basophils # (A) 0.2 k/uL (0-0.2); Basophils % (A) 1 %; Eosinophils # (A) 0.2 k/uL (0-0.7); Eosinophils % (A) 2 %; Hypochromasia Marked; Lymphocytes # (A) 1.8 k/uL (1.0-4.8); Lymphocytes % (A) 13 %; MCH 31.3 pg (25.0-35.0); MCHC 31.2 g/dL (31.0-37.0); Macrocytosis Slight; Mean Platelet Volume 9.1; Monocytes # (A) 0.9 k/uL (0-1.0); Monocytes % (A) 6 %; Neutrophils # (A) 10.4 k/uL (1.3-7.7); Neutrophils % (A) 75 %; Platelet Count 323 k/uL (150-450); RDW 20.7 % (11.5-15.5); WBC 13.9 k/uL (3.8-10.6)
[2024-04-24 07:43] LABS: HGB 6.3 gm/dL (13.0-17.5)
[2024-04-24 07:44] LABS: MCV 100.3 fL (80.0-100.0)
[2024-04-24 08:36] LABS: ALT 32 U/L (10-49); AST 34 U/L (14-35); Albumin 2.9 g/dL (3.8-4.9); Albumin/Globulin Ratio 1.45 Ratio (1.60-3.17); Alkaline Phosphatase 60 U/L (41-126); BUN/Creat Ratio 38.91 Ratio (12.00-20.00); Blood Urea Nitrogen 89.5 mg/dL (9.0-27.0); Calcium 7.9 mg/dL (8.7-10.3); Carbon Dioxide 26.9 mmol/L (21.6-31.8); Chloride 107 mmol/L (96-109); Glucose 129 mg/dL (70-110); Magnesium 2.3 mg/dL (1.5-2.4); Potassium 5.3 mmol/L (3.5-5.5); Sodium 145 mmol/L (135-145); Total Bilirubin 0.3 mg/dL (0.3-1.2); Total Protein 4.9 g/dL (6.2-8.2)
[2024-04-24] MEDS: ASPIRIN 81 MG PO SCH (08:46)
--- NOTE | 2024-04-24 09:38 | P.PN ---
Subjective Progress Note Date: 04/24/24 Everett Juárez, is a 63-year-old male who presented to [facility] emergency room with a chief complaint of worsening shortness of breath and generalized weakness, patient was recently admitted to [facility] with peripheral vascular disease right foot osteomyelitis and underwent stenting of the right SFA by Dr. Dillard, he has a previous history of right great toe amputation. He was evaluated in the emergency room vital examination on presentation revealed a temperature of 98.9 pulse 110 respiration 18 blood pressure 114/72 pulse ox 96% on room air Laboratory data reveals a white blood count of 8.7 hemoglobin 11.4 platelet count 283 sodium 139 potassium 4.9 chloride 110 CO2 23 BUN 41 creatinine 2.01 D- dimer was elevated at 2.10, troponin level was elevated at 0.043 Testing in the emergency room revealed chest x-ray done in the emergency room revealed cardiomegaly and mild pulmonary vascular congestion suggestive of congestive heart failure, VQ scan showed no evidence for pulmonary embolism, EKG revealed atrial fibrillation with moderate T wave abnormalities suggestive of lateral ischemia. Patient was admitted to medical floor for further evaluation and treatment Past medical history is significant for history of atrial fibrillation, history of peripheral arterial disease with previous history of right great toe amputation, history of COPD, history of diabetes mellitus type 2, history of hyperkalemia, history of chronic kidney disease. On review of systems patient is alert and oriented x 3 in no apparent distress, he is complaining of generalized weakness, complaining of shortness of breath, which is worse with activity, and complaining of right foot pain, otherwise he denies any complaints, there is no fever or chills no headache or dizziness no chest pain, no cough no nausea or vomiting no abdominal pain no diarrhea and no urinary symptoms On 04/14/2024 patient is alert and oriented 3.Patient remains on IV Unasyn and IV Lasix. 2-D echo completed showing an EF of 35-40%. Current vital signs temp 98.3, heart 81, respiratory rate 18, blood pressure 135/67 with a pulse ox of 100% on 3 L. Patient reports improvement with shortness of breath. Patient denies nausea vomiting or diarrhea. Patient denies any urinary burning or frequency On 04/15/2024 Patient is alert and oriented 3. Patient remains on IV Unasyn. Patient has been transitioned to by mouth Lasix.Current vital signs temp 97.1, heart rate 98, respiratory rate 18, blood pressure 121/79 with pulse ox 96% on 3 L. Patient denies chest pain or shortness breath. Patient denies nausea vomiting or diarrhea. Patient denies any urinary burning or frequency. On 04/16/2024 he is alert and oriented x 3 in no apparent distress he reports improvement in his shortness of breath there is no fever or chills no headache or dizziness no chest pain no cough no nausea or vomiting no abdominal pain no diarrhea and no urinary symptoms. On 04/17/2024 patient is alert and oriented x 3. Current vital signs Temp 98.1, heart rate 100, respiratory rate 16, blood pressure 153/81 with a pulse ox of 97% on 2 L. Patient remains on IV Unasyn. Awaiting final antibiotic recommenda tions per ID. Patient denies chest pain or shortness of breath. Patient denies nausea vomiting or diarrhea. Patient denies any urinary burning or frequency. On 04/18/2024 patient was seen and examined on the medical floor he is alert and oriented x 3 in no apparent distress there is no fever or chills no headache or dizziness no chest pain no shortness of breath no cough no nausea or vomiting no abdominal pain no diarrhea no urinary symptoms, he is still maintained on oxygen supplements, patient need to be assessed for need for home oxygen, he is also maintained on tube feeding, watch caser is working on arrangement for tube feeding at home. Otherwise continue with current management will recheck in a.m.. On 04/19/2024 patient is alert and oriented x 3. Patient is maintained on 3 L n roberth cannula. Patient also maintained on IV Unasyn. Awaiting final IV recommendations from infectious disease. Current vital signs Temp 98.2, heart rate 82, blood pressure 116/70 with a pulse ox of 97% on 3 L patient denies chest pain or shortness of breath. Patient denies nausea vomiting or diarrhea. Patient denies any urinary burning or frequency On 04/20/2024 patient was seen and examined on the medical floor he is alert and oriented x 3 in no apparent distress, there is no fever or chills no headache or dizziness no chest pain no shortness of breath no cough no nausea or vomiting no abdominal pain no diarrhea no urinary symptoms, patient is still having difficulty with hyperkalemia, he is maintained on IV fluids and [facility] are following, will recheck labs in a.m. On 04/21/2024 patient is alert and oriented x 3. Potassium remains elevated at 5.9 awaiting further recommendations from nephrology standpoint. Patient denies chest pain or shortness of breath. Patient denies nausea vomiting or diarrhea. Patient denies any urinary burning or frequency On 04/22/2024 patient is alert and oriented x 3. Patient received 1 unit PRBCs for hemoglobin of 6.8 yesterday. GI services were consulted stool for occult blood ordered. Nephrology service is following for elevated potassium level. At this time patient denies chest pain or shortness of breath. Patient denies nausea vomiting or diarrhea. Patient denies any urinary burning frequency. On 04/23/2024 patient was seen and examined on the medical floor he is alert and oriented x 3 in no apparent distress, his hemoglobin today is again 6.01 unit of red blood cell transfusion was ordered, he was reevaluated by gastroenterology and plans are for EGD and colonoscopy tomorrow, otherwise he denies any complaints there is no fever or chills no headache or dizziness no chest pain no shortness of breath no cough no nausea or vomiting no abdominal pain no diarrhea no urinary symptoms On 04/24/2024 patient is alert and oriented 3. Plans for EGD and colonoscopy today with GI services.Patient had episodes of hypotension throughout night received IV bolus. Continue to transfuse patient for hemoglobin less than 7. Patient remains on IV Unasyn. This time patient denies chest pain or shortness breath. Patient denies nausea vomiting or diarrhea. Patient denies any urinary burning or frequency Objective - Vital Signs Vital signs: Vital Signs Temp 98.2 F 04/24/24 00:34 Pulse 62 04/24/24 07:00 Resp 21 04/24/24 07:00 BP 88/55 04/24/24 07:57 Pulse Ox 95 04/24/24 07:00 FiO2 Intake & Output 04/23/24 04/24/24 04/24/24 18:59 06:59 18:59 Intake Total 682 Output Total 300 Balance 382 Weight 99.4 kg Intake: Tube Feeding 372 Blood Product 310 Rc As-1 Unit 310 [id number] Output: Urine 300 Other: Voiding Method Toilet Urinal Urinal # Bowel Movements 1 1 1 - Exam In general patient is alert and oriented x 3 in no distress HEENT head normocephalic and atraumatic Neck is supple no JVD no goiter no lymphadenopathy no carotid bruit Chest examination reveals a scattered crackles in both lung [place] no wheezing Cardiac exam reveals irregular heart sounds S1 and S2 no gallops no murmurs Abdomen is soft nontender no organomegaly with normal bowel sounds Extremity exam reveals no edema no cyanosis or clubbing, the right great toe is amputated with a large ulcer at the base of the amputated right great toe with purulent discharge Neurological examination reveals no gross focal deficits - Labs CBC & Chem 7: 04/24/24 06:24 04/24/24 06:24 Labs: Abnormal Lab Results - Last 24 Hours (Table) 04/21/24 04/21/24 04/23/24 Range/Units 12:50 22:13 04:55 WBC 13.75 H (4.50-10.00) X 10*3/uL RBC 1.90 L (4.40-5.60) X 10*6/uL Hgb 6.0 A* (13.0-17.0) g/dL Hct 19.3 A* (39.6-50.0) % MCV 101.6 H (80.0-97.0) FL MCHC 31.1 L (32.0-37.0) g/dL RDW 17.6 H (11.5-14.5) % Immature Gran # 0.33 H (0.00-0.04) X 10*3/uL Neutrophils # 10.44 H (1.80-7.70) X 10*3/uL Monocytes # 1.29 H (0.20-1.00) X 10*3/uL Basophils # 0.12 H (0.00-0.10) X 10*3/uL NRBC/100 WBC Diff 0.34 H (0.00-0.01) X 10*3/uL Haptoglobin 211.0 H (31.2-198.0) mg/dL BUN (9.0-27.0) mg/dL Creatinine (0.6-1.5) mg/dL Est GFR (CKD-EPI) (>=60) BUN/Creatinine Ratio (12.00-20.00) Ratio Glucose (70-110) mg/dL POC Glucose (mg/dL) (70-110) mg/dL Calcium (8.7-10.3) mg/dL Total Protein (6.2-8.2) g/dL Albumin (3.8-4.9) g/dL Albumin/Globulin Ratio (1.60-3.17) Ratio Crossmatch See Detail 04/23/24 04/23/24 04/24/24 Range/Units 12:00 17:23 06:03 WBC (4.50-10.00) X 10*3/uL RBC (4.40-5.60) X 10*6/uL Hgb (13.0-17.0) g/dL Hct (39.6-50.0) % MCV (80.0-97.0) FL MCHC (32.0-37.0) g/dL RDW (11.5-14.5) % Immature Gran # (0.00-0.04) X 10*3/uL Neutrophils # (1.80-7.70) X 10*3/uL Monocytes # (0.20-1.00) X 10*3/uL Basophils # (0.00-0.10) X 10*3/uL NRBC/100 WBC Diff (0.00-0.01) X 10*3/uL Haptoglobin (31.2-198.0) mg/dL BUN (9.0-27.0) mg/dL Creatinine (0.6-1.5) mg/dL Est GFR (CKD-EPI) (>=60) BUN/Creatinine Ratio (12.00-20.00) Ratio Glucose (70-110) mg/dL POC Glucose (mg/dL) 190 H 194 H 116 H (70-110) mg/dL Calcium (8.7-10.3) mg/dL Total Protein (6.2-8.2) g/dL Albumin (3.8-4.9) g/dL Albumin/Globulin Ratio (1.60-3.17) Ratio Crossmatch 04/24/24 04/24/24 Range/Units 06:24 06:24 WBC 13.9 H (4.50-10.00) X 10*3/uL RBC 2.00 L (4.40-5.60) X 10*6/uL Hgb 6.3 L* (13.0-17.0) g/dL Hct 20.0 L (39.6-50.0) % MCV 100.3 H D (80.0-97.0) FL MCHC (32.0-37.0) g/dL RDW 20.7 H (11.5-14.5) % Immature Gran # (0.00-0.04) X 10*3/uL Neutrophils # 10.4 H (1.80-7.70) X 10*3/uL Monocytes # (0.20-1.00) X 10*3/uL Basophils # (0.00-0.10) X 10*3/uL NRBC/100 WBC Diff (0.00-0.01) X 10*3/uL Haptoglobin (31.2-198.0) mg/dL BUN 89.5 H (9.0-27.0) mg/dL Creatinine 2.3 H (0.6-1.5) mg/dL Est GFR (CKD-EPI) 31 L (>=60) BUN/Creatinine Ratio 38.91 H (12.00-20.00) Ratio Glucose 129 H (70-110) mg/dL POC Glucose (mg/dL) (70-110) mg/dL Calcium 7.9 L (8.7-10.3) mg/dL Total Protein 4.9 L (6.2-8.2) g/dL Albumin 2.9 L (3.8-4.9) g/dL Albumin/Globulin Ratio 1.45 L (1.60-3.17) Ratio Crossmatch Assessment and Plan Plan: Worsening shortness of breath, multifactorial, possibly related to acute congestive heart failure, and underlying COPD Atrial fibrillation, with rapid ventricular response on presentation, heart rate was 110 New onset cardiomyopathy. Anemia plans for EGD and colonoscopy 04/23/2024 Generalized weakness Large ulcer at the base of the right great toe with purulent discharge, patient was maintained on oral Augmentin as outpatient, infectious disease consultation requested Underlying history of peripheral arterial disease, with recent history of angioplasty and stent placement to the right lower extremity on 04/08/2024 Underlying history of diabetes mellitus Underlying history of chronic obstructive pulmonary disease Underlying history of chronic kidney disease Underlying history of hyperkalemia Underlying history of chronic continued tobacco abuse At this time patient is admitted to telemetry floor Home medications reviewed and reordered Consultation for cardiology and pulmonary were requested in the emergency room For DVT prophylaxis, patient is maintained on scds (eliquis on hold due to anemia) Will add infectious disease consultation in regard to base of right great toe ulcer Will follow closely
--- NOTE | 2024-04-24 11:26 | P.PN ---
Subjective Patient is seen in follow-up for acute kidney injury on chronic kidney disease. Renal function little better. Hemoglobin remains low despite blood transfusions.having black colored stools. Scheduled for endoscopy today. Denies chest pain or shortness of breath. Has been voiding. Vital signs are stable. General: No acute distress. HEENT: Head exam is unremarkable. LUNGS: No audible rhonchi or wheezes. HEART: Rate and Rhythm are regular. ABDOMEN: Obese, nontender. PEG tube noted. EXTREMITITES: No edema. Objective - Vital Signs Vital signs: Vital Signs Temp 97.3 F L 04/24/24 11:02 Pulse 72 04/24/24 11:02 Resp 16 04/24/24 11:02 BP 109/56 04/24/24 11:02 Pulse Ox 93 L 04/24/24 11:02 FiO2 Intake & Output 04/23/24 04/24/24 04/24/24 18:59 06:59 18:59 Intake Total 682 0 Output Total 300 Balance 382 0 Weight 99.4 kg Intake: Tube Feeding 372 Blood Product 310 0 Unit 0 Rc As-1 Unit 310 [id number] Output: Urine 300 Other: Voiding Method Toilet Urinal Urinal # Bowel Movements 1 1 1 - Labs CBC & Chem 7: 04/24/24 06:24 04/24/24 06:24 Labs: Abnormal Lab Results - Last 24 Hours (Table) 04/21/24 04/21/24 04/23/24 Range/Units 12:50 22:13 12:00 WBC (3.8-10.6) k/uL RBC (4.30-5.90) m/uL Hgb (13.0-17.5) gm/dL Hct (39.0-53.0) % MCV (80.0-100.0) fL RDW (11.5-15.5) % Neutrophils # (1.3-7.7) k/uL Haptoglobin 211.0 H (31.2-198.0) mg/dL BUN (9.0-27.0) mg/dL Creatinine (0.6-1.5) mg/dL Est GFR (CKD-EPI) (>=60) BUN/Creatinine Ratio (12.00-20.00) Ratio Glucose (70-110) mg/dL POC Glucose (mg/dL) 190 H (70-110) mg/dL Calcium (8.7-10.3) mg/dL Total Protein (6.2-8.2) g/dL Albumin (3.8-4.9) g/dL Albumin/Globulin Ratio (1.60-3.17) Ratio Crossmatch See Detail 04/23/24 04/24/24 04/24/24 Range/Units 17:23 06:03 06:24 WBC (3.8-10.6) k/uL RBC (4.30-5.90) m/uL Hgb (13.0-17.5) gm/dL Hct (39.0-53.0) % MCV (80.0-100.0) fL RDW (11.5-15.5) % Neutrophils # (1.3-7.7) k/uL Haptoglobin (31.2-198.0) mg/dL BUN 89.5 H (9.0-27.0) mg/dL Creatinine 2.3 H (0.6-1.5) mg/dL Est GFR (CKD-EPI) 31 L (>=60) BUN/Creatinine Ratio 38.91 H (12.00-20.00) Ratio Glucose 129 H (70-110) mg/dL POC Glucose (mg/dL) 194 H 116 H (70-110) mg/dL Calcium 7.9 L (8.7-10.3) mg/dL Total Protein 4.9 L (6.2-8.2) g/dL Albumin 2.9 L (3.8-4.9) g/dL Albumin/Globulin Ratio 1.45 L (1.60-3.17) Ratio Crossmatch 04/24/24 Range/Units 06:24 WBC 13.9 H (3.8-10.6) k/uL RBC 2.00 L (4.30-5.90) m/uL Hgb 6.3 L* (13.0-17.5) gm/dL Hct 20.0 L (39.0-53.0) % MCV 100.3 H D (80.0-100.0) fL RDW 20.7 H (11.5-15.5) % Neutrophils # 10.4 H (1.3-7.7) k/uL Haptoglobin (31.2-198.0) mg/dL BUN (9.0-27.0) mg/dL Creatinine (0.6-1.5) mg/dL Est GFR (CKD-EPI) (>=60) BUN/Creatinine Ratio (12.00-20.00) Ratio Glucose (70-110) mg/dL POC Glucose (mg/dL) (70-110) mg/dL Calcium (8.7-10.3) mg/dL Total Protein (6.2-8.2) g/dL Albumin (3.8-4.9) g/dL Albumin/Globulin Ratio (1.60-3.17) Ratio Crossmatch Assessment and Plan Plan: Assessment: 1. Acute kidney injury secondary to ATN secondary to acute blood loss anemia. Creatinine peaked at 2.7 this admission -2.3 today. Elevated BUN secondary to chronic kidney disease as well as GI bleed. No hydronephrosis noted on kidney ultrasound. UA fairly benign. 2. Chronic kidney disease stage IV baseline creatinine 1.8-2 secondary to solitary right kidney. History of left nephrectomy. 3. Chronic systolic CHF ejection fraction of 35 to 40% with severe pulmonary hypertension. 4. Diabetes mellitus. 5. Hypernatremia from lack of oral water intake. Improved. 6. Hyperkalemia secondary to acute kidney injury and GI bleed. stable. 7. Peripheral vascular disease. 8. Acute blood loss anemia with hemoglobin 6.3 today. No active bleeding. Status post blood transfusions and IV DDAVP. Also on Aranesp. GI following. Plan: Tube feeds currently held. Scheduled for EGD and colonoscopy today. Scheduled to receive another unit of blood today. lokelma currently held. Avoid nephrotoxins. repeat IV DDAVP today.
[2024-04-24 12:21] LABS: Glucose,Whole Blood 131 mg/dL (70-110)
--- NOTE | 2024-04-24 12:24 | P.PN ---
Subjective HISTORY OF PRESENT ILLNESS: This is a 63-year-old male with a past medical history significant for paroxysmal atrial fibrillation, peripheral arterial disease, hypertension, hyperlipidemia, and diabetes. Patient follows in the office with Dr. Gonzalez. We have been asked to see the patient in consultation for elevated troponin. Patient examined at the bedside. The patient presented to the hospital with a chief complaint of shortness of breath. Patient states he has been feeling short of breath for the past couple weeks. He states that he checked his oxygen saturation at home and it was found to be in the high 80s. The patient denies having any chest pain or pressure. Patient was found to have elevated D-dimer of 2.10. He underwent VQ scan which was negative for pulmonary embolism. Vital signs are stable. It is noted that the patient underwent balloon angioplasty and stenting of right SFA and right popliteal. DIAGNOSTICS: - EKG reveals atrial fibrillation with controlled ventricular rate. - Chest xray cardiomegaly and mild pulmonary vascular congestion. - Laboratory data: WBC 8.7. Hemoglobin 11.4. Platelet count 283. D-dimer 2.10. Sodium 139. Potassium 4.9. BUN 41. Creatinine 2.01. Troponin 0.036. 0.038. 0.043. - Current home cardiac medications include amiodarone 100 mg daily, Eliquis 2.5 mg twice a day, Plavix 75 mg daily, losartan 25 mg daily, rosuvastatin 20 mg daily, metoprolol tartrate 50 mg twice a day. - Most recent echocardiogram obtained in June 2021 revealed ejection fraction 55 to 60%, severe pulmonary hypertension 04/14/2024 Patient examined this morning. Patient currently denies chest pain or pressure. He reports improvement in his shortness of breath. Echocardiogram completed re vealing ejection fraction 35 to 40%, mild MR, mild TR. 04/15/2024 Patient examined this morning at bedside. Patient currently denies chest pain or pressure. He denies shortness of breath. Vital signs are stable. 04/23 Cardiology was re-counseled that secondary to anemia and recommendations for bl ood thinners. Patient denies any chest pain or pressure. He does feel significantly short of breath. Hemoglobin down to 6.4 and packed red blood cells were reordered. He states he is feeling sick. And tired and is questioning whether he even wants blood transfusions. He denies any hematochezia or melena. 04/24/2024 patient examined this morning to bedside. Patient currently denies chest pain or pressure. He denies shortness of breath. Hemoglobin today 6.3. He is scheduled to undergo endoscopy today. PHYSICAL EXAM: VITAL SIGNS: Reviewed. GENERAL: Well-developed in no acute distress. HEENT: Head is normocephalic. Pupils are equal, round. Sclerae anicteric. Mucous membranes of the mouth are moist. Neck supple. No JVD or thyromegaly LUNGS: Respirations even and unlabored. Lungs essentially clear to auscultation bilaterally. HEART: Irregular rate and rhythm. S1 and S2 heard. ABDOMEN: Soft. Nondistended. Nontender. EXTREMITIES: Normal range of motion. No clubbing or cyanosis. Peripheral pulses intact. No lower extremity edema NEUROLOGIC: Awake and alert. Oriented x 3. ASSESSMENT: Shortness of breath, etiology unclear, VQ scan negative for PE, not volume overloaded on clinical examination Acute hypoxic respiratory failure requiring supplemental oxygen Abnormal troponins, flat, type II VA secondary to oxygen supply and demand mismatch Recent balloon angioplasty and stenting of right SFA and right popliteal artery, 04/08/2024 Severe pulmonary hypertension Peripheral arterial disease Paroxysmal atrial fibrillation History of CVA Hypertension Hyperlipidemia Diabetes History of PEG tube placement New onset cardiomyopathy, ischemic versus nonischemic Anemia PLAN: Continue current cardiac medications patient's Eliquis has been placed on hold Continue aspirin Plavix has also been placed on hold secondary to anemia Patient will undergo endoscopy today. Await results No further inpatient recommendations cardiac standpoint defer resuming anticoagulation to GI service We will follow on an as-needed basis. Please call with questions or concerns. Nurse practitioner note has been reviewed by physician. Signing provider agrees with the documented findings, assessment, and plan of care documented by DIESEL ENGINE MECHANIC as a scribe. Objective - Vital Signs Vital signs: Vital Signs Temp 97.3 F L 04/24/24 11:02 Pulse 74 04/24/24 12:13 Resp 16 04/24/24 11:02 BP 109/56 04/24/24 11:02 Pulse Ox 93 L 04/24/24 11:02 FiO2 Intake & Output 04/23/24 04/24/24 04/24/24 18:59 06:59 18:59 Intake Total 682 0 Output Total 300 Balance 382 0 Weight 99.4 kg Intake: Tube Feeding 372 Blood Product 310 0 Unit 0 Rc As-1 Unit 310 [id number] Output: Urine 300 Other: Voiding Method Toilet Urinal Urinal Urinal # Bowel Movements 1 1 1 - Labs CBC & Chem 7: 04/24/24 06:24 04/24/24 06:24 Labs: Abnormal Lab Results - Last 24 Hours (Table) 04/21/24 04/21/24 04/23/24 Range/Units 12:50 22:13 17:23 WBC (3.8-10.6) k/uL RBC (4.30-5.90) m/uL Hgb (13.0-17.5) gm/dL Hct (39.0-53.0) % MCV (80.0-100.0) fL RDW (11.5-15.5) % Neutrophils # (1.3-7.7) k/uL Haptoglobin 211.0 H (31.2-198.0) mg/dL BUN (9.0-27.0) mg/dL Creatinine (0.6-1.5) mg/dL Est GFR (CKD-EPI) (>=60) BUN/Creatinine Ratio (12.00-20.00) Ratio Glucose (70-110) mg/dL POC Glucose (mg/dL) 194 H (70-110) mg/dL Calcium (8.7-10.3) mg/dL Total Protein (6.2-8.2) g/dL Albumin (3.8-4.9) g/dL Albumin/Globulin Ratio (1.60-3.17) Ratio Crossmatch See Detail 04/24/24 04/24/24 04/24/24 Range/Units 06:03 06:24 06:24 WBC 13.9 H (3.8-10.6) k/uL RBC 2.00 L (4.30-5.90) m/uL Hgb 6.3 L* (13.0-17.5) gm/dL Hct 20.0 L (39.0-53.0) % MCV 100.3 H D (80.0-100.0) fL RDW 20.7 H (11.5-15.5) % Neutrophils # 10.4 H (1.3-7.7) k/uL Haptoglobin (31.2-198.0) mg/dL BUN 89.5 H (9.0-27.0) mg/dL Creatinine 2.3 H (0.6-1.5) mg/dL Est GFR (CKD-EPI) 31 L (>=60) BUN/Creatinine Ratio 38.91 H (12.00-20.00) Ratio Glucose 129 H (70-110) mg/dL POC Glucose (mg/dL) 116 H (70-110) mg/dL Calcium 7.9 L (8.7-10.3) mg/dL Total Protein 4.9 L (6.2-8.2) g/dL Albumin 2.9 L (3.8-4.9) g/dL Albumin/Globulin Ratio 1.45 L (1.60-3.17) Ratio Crossmatch 04/24/24 Range/Units 12:20 WBC (3.8-10.6) k/uL RBC (4.30-5.90) m/uL Hgb (13.0-17.5) gm/dL Hct (39.0-53.0) % MCV (80.0-100.0) fL RDW (11.5-15.5) % Neutrophils # (1.3-7.7) k/uL Haptoglobin (31.2-198.0) mg/dL BUN (9.0-27.0) mg/dL Creatinine (0.6-1.5) mg/dL Est GFR (CKD-EPI) (>=60) BUN/Creatinine Ratio (12.00-20.00) Ratio Glucose (70-110) mg/dL POC Glucose (mg/dL) 131 H (70-110) mg/dL Calcium (8.7-10.3) mg/dL Total Protein (6.2-8.2) g/dL Albumin (3.8-4.9) g/dL Albumin/Globulin Ratio (1.60-3.17) Ratio Crossmatch
[2024-04-24] MEDS: MIDODRINE 5 MG TAB PO SCH (13:09)
--- NOTE | 2024-04-24 13:57 | P.PN ---
Subjective Progress Note Date: 04/24/24 This is a 63-year-old white male with history of multiple medical problems including coronary artery disease, chronic atrial fibrillation, peripheral vessel occlusive disease, severe pulmonary hypertension, chronic obstructive pulmonary disease, patient normally sees Dr. Dillard on outpatient basis. Patient was never seen by a laboratory engineer. Admitted this time with few days history of increased shortness of breath, and according to the his O2 saturation was down in the 60s. Patient was brought into the ER, chest x-ray showed evidence of pulmonary edema, VQ scan negative for pulmonary embolism, patient was admitted and this consult was initiated. Patient is not a great historian, most of the information was obtained from his , apparently the patient had history of CVA in the past, and he had a previous PEG tube placement Labs on admission showed relatively normal CBC, no leukocytosis, D-dimer was a bit elevated at 2.10 and renal profile was abnormal with BUN of 43 and creatinine 2. 01 however BNP level was 12,300 and troponin was 0.043. Since admission, the patient received 1 dose of Lasix, and he is at least 1.5 L negative fluid balance The patient is seen today April 14, 2024 in follow-up on the selective care unit. He is currently sitting up at the bedside. Awake and alert in no acute distress. Breathing a bit easier today compared to yesterday. Currently maintaining good O2 saturations in the upper 90s on 3 L/min per nasal cannula. He is afebrile. Hemodynamically stable. Echocardiogram reveals impaired left ventricular systolic function with an ejection fraction of 35 to 40%. Severe pulmonary hypertension. Moderate to severely dilated left atrium. Right first toe culture is pending. Currently on Unasyn. Glucose 125. Being nourished with Glucerna at 51 MLS per hour via his PEG tube. Anticoagulated with Eliquis. Remains on diuretics. Making adequate urine. The patient is seen today April 15, 2024 in follow-up on the selective care unit. He is awake and alert in no acute distress. Maintaining O2 saturations in the 90s on 3 L/min per nasal cannula. Hemodynamically stable. White count 8.4. Hemoglobin 11.2. Platelets 321. Sodium 143. Potassium 4.9. Bicarb 29. BUN 45. Creatinine 1.99. Glucose 126. He is continued on Unasyn. Anticoagulated with Eliquis. Remains on bronchodilators. Remains on oral diuretics. Continued on Glucerna via his PEG tube. Barium swallow is pending so the patient can continue on tube feedings in the outpatient setting Patient was evaluated today on 04/16/2024, patient is doing well, comfortable, not in any distress, on 3 L nasal cannula with O2 sats of 96%. WBC is 8.5 hemoglobin 10.5 electrolytes are relatively normal with potassium of 5.2 BUN is 48 creatinine 1.94, steadily improving since admission patient had a successful swallow evaluation study that came back unremarkable. The patient was seen today April 17, 2024 in follow-up on the selective care unit. He is currently resting comfortably in bed. Awake and alert in no acute distress. Maintaining O2 saturations in the 90s on 2 L/min per nasal cannula. Right foot culture results revealing no growth. White count 9.6. Hemoglobin 1 0.9. Platelets 305. Sodium 145. Potassium 5.4. Bicarb 32. BUN 56. Creatinine 1.99. Glucose 133. He remains on bronchodilators. Anticoagulated with Eliquis. Antibiotics in the form of Unasyn. Remains on Glucerna tube feedings. The patient is seen today April 18, 2024 in follow-up on the regular medical floor. He is currently sitting up at the bedside. Awake and alert in no acute distress. Maintaining O2 saturations in the 90s on 2 L/min per nasal cannula. He has been afebrile. Hemodynamically stable. He remains on Glucerna at 51 mL/h which is goal. He remains on antibiotics in the form of Unasyn. His right foot dressing is dry and intact. Glucose 140. He remains on bronchodilators. Oral diuretics. Anticoagulated with Eliquis. The patient is seen today April 19, 2024 in follow-up on the regular medical floor. He is currently sitting up in bed. Awake and alert in no acute distress. He is maintaining good O2 saturations in the 90s on 3 L/min per nasal cannula. He remains on antibiotics in the form of Unasyn. He is being nourished with Glucerna at 51 mL/h which is his goal. He is continued on bronchodilators. Anticoagulated with Eliquis. Normal saline at 100 MLS per hour. White count 10.8. Hemoglobin 9.2. Platelets 307. Sodium 147. Potassium 6.3. BUN 84. Creatinine 2.3. Glucose 105. The patient is seen today April 20, 2024 in follow-up on the regular medical floor. He is currently sitting up at the bedside. Awake and alert in no acute distress. Maintaining good O2 saturations in the 90s on 4 L/min per nasal cannula. He remains on Glucerna at 51 mL/h which is goal. 0.45% normal saline at 75 MLS per hour. Potassium 5.6. Bicarb 30. BUN 90. Creatinine 2.4. Glucose 120. He received Lokelma yesterday for his hyperkalemia. Right foot cultures revealed no growth. Sputum culture revealed Jenae. He continues on Unasyn per ID service. He remains on bronchodilators. Anticoagulated with Eliquis. Remains on oral diuretics. The patient is seen today April 21, 2024 in follow-up on the regular medical floor. He is awake and alert in no acute distress. Sitting up at the bedside. Denies any worsening shortness of breath, cough or congestion. Continues to maintain good O2 saturations in the upper 90s on 4 L/min per nasal cannula. He is afebrile. Hemodynamically stable. White count 11.0. Hemoglobin 6.8. Platelets 324. Sodium 143. Potassium 5.9. Bicarb 29. BUN 98. Creatinine 2.4. Glucose 127. Nephrology is following. He remains on bronchodilators and Unasyn. The patient is seen today April 22, 2024 in follow-up on the regular medical floor. He is currently sitting up at the bedside. Awake and alert in no acute distress. He is receiving 2 units of packed red blood cells for hemoglobin of 6.4 today. White count 10.7. Platelets 308. Sodium 141. Potassium 5.8. Bicarb 28. BUN 107. Creatinine 2.7. Glucose 150. He remains on Unasyn. Continued on bronchodilators. Remains on Lokelma for his hyperkalemia. Receiving folate acid. The patient is seen today April 23, 2024 in follow-up on the regular medical floor. He is awake and alert in no acute distress. Maintaining O2 saturations in the 90s on 2 L/min per nasal cannula. Receiving normal saline at 20 MLS per hour. Continued on Nepro PEG tube feedings at 43 mL/h which is goal. He is status post 2 units of packed red blood cells. Hemoglobin 6.0 today. To receive 1 unit of packed red blood cells today unit. GI service is following. White count 13.7. Platelets 300. Sodium 141. Potassium 5.0. Bicarb 30. BUN 109. Creatinine 2.5. Glucose 146. He remains on Unasyn. Remains on Lokelma. The patient is seen today 04/24/2020 for follow-up on the regular medical floor. He is currently resting in bed. He has been having issues with anemia and his hemoglobin was 6.3 again today. He is receiving his fourth unit of packed red blood cells. He has received 2-1/2 L of fluid resuscitation. He is awaiting EGD/colonoscopy today. He remains on Unasyn. Continued on bronchodilators. Remains on Lokelma. white count 13.9. Platelets 323. Sodium 145. Potassium 5.3. Bicarb 27. BUN 89. Creatinine 2.3. Glucose 129. Objective - Vital Signs Vital signs: Vital Signs Temp 97.3 F L 04/24/24 11:02 Pulse 74 04/24/24 12:13 Resp 16 04/24/24 11:02 BP 109/56 04/24/24 11:02 Pulse Ox 93 L 04/24/24 11:02 FiO2 Intake & Output 04/23/24 04/24/24 04/24/24 18:59 06:59 18:59 Intake Total 682 0 Output Total 300 Balance 382 0 Weight 99.4 kg Intake: Tube Feeding 372 Blood Product 310 0 Unit 0 Rc As-1 Unit 310 [id number] Output: Urine 300 Other: Voiding Method Toilet Urinal Urinal Urinal # Bowel Movements 1 1 1 - Exam GENERAL EXAM: Alert, 63-year-old male, resting in bed, on 4 L nasal cannula, in no apparent distress. HEAD: Normocephalic. EYES: Normal reaction of pupils, equal size. NOSE: Clear with pink turbinates. THROAT: No erythema or exudates. NECK: No masses, no JVD. CHEST: No chest wall deformity. LUNGS: Equal air entry with no crackles, wheeze, rhonchi or dullness. CVS: S1 and S2 normal with no audible murmur, regular rhythm. ABDOMEN: PEG tube exit site clean and dry. No hepatosplenomegaly, normal bowel sounds, no guarding or rigidity. SPINE: No scoliosis or deformity SKIN: Evidence of purulent drainage noted at the site of a previous amputation of the big toe and second toe on the right foot CENTRAL NERVOUS SYSTEM: No focal deficits, tone is normal in all 4 extremities. EXTREMITIES: Right foot dressing dry and intact. There is no peripheral edema. Peripheral pulses are intact. - Labs CBC & Chem 7: 04/24/24 06:24 04/24/24 06:24 Labs: Abnormal Lab Results - Last 24 Hours (Table) 04/21/24 04/21/24 04/23/24 Range/Units 12:50 22:13 17:23 WBC (3.8-10.6) k/uL RBC (4.30-5.90) m/uL Hgb (13.0-17.5) gm/dL Hct (39.0-53.0) % MCV (80.0-100.0) fL RDW (11.5-15.5) % Neutrophils # (1.3-7.7) k/uL Haptoglobin 211.0 H (31.2-198.0) mg/dL BUN (9.0-27.0) mg/dL Creatinine (0.6-1.5) mg/dL Est GFR (CKD-EPI) (>=60) BUN/Creatinine Ratio (12.00-20.00) Ratio Glucose (70-110) mg/dL POC Glucose (mg/dL) 194 H (70-110) mg/dL Calcium (8.7-10.3) mg/dL Total Protein (6.2-8.2) g/dL Albumin (3.8-4.9) g/dL Albumin/Globulin Ratio (1.60-3.17) Ratio Crossmatch See Detail 04/24/24 04/24/24 04/24/24 Range/Units 06:03 06:24 06:24 WBC 13.9 H (3.8-10.6) k/uL RBC 2.00 L (4.30-5.90) m/uL Hgb 6.3 L* (13.0-17.5) gm/dL Hct 20.0 L (39.0-53.0) % MCV 100.3 H D (80.0-100.0) fL RDW 20.7 H (11.5-15.5) % Neutrophils # 10.4 H (1.3-7.7) k/uL Haptoglobin (31.2-198.0) mg/dL BUN 89.5 H (9.0-27.0) mg/dL Creatinine 2.3 H (0.6-1.5) mg/dL Est GFR (CKD-EPI) 31 L (>=60) BUN/Creatinine Ratio 38.91 H (12.00-20.00) Ratio Glucose 129 H (70-110) mg/dL POC Glucose (mg/dL) 116 H (70-110) mg/dL Calcium 7.9 L (8.7-10.3) mg/dL Total Protein 4.9 L (6.2-8.2) g/dL Albumin 2.9 L (3.8-4.9) g/dL Albumin/Globulin Ratio 1.45 L (1.60-3.17) Ratio Crossmatch 04/24/24 Range/Units 12:20 WBC (3.8-10.6) k/uL RBC (4.30-5.90) m/uL Hgb (13.0-17.5) gm/dL Hct (39.0-53.0) % MCV (80.0-100.0) fL RDW (11.5-15.5) % Neutrophils # (1.3-7.7) k/uL Haptoglobin (31.2-198.0) mg/dL BUN (9.0-27.0) mg/dL Creatinine (0.6-1.5) mg/dL Est GFR (CKD-EPI) (>=60) BUN/Creatinine Ratio (12.00-20.00) Ratio Glucose (70-110) mg/dL POC Glucose (mg/dL) 131 H (70-110) mg/dL Calcium (8.7-10.3) mg/dL Total Protein (6.2-8.2) g/dL Albumin (3.8-4.9) g/dL Albumin/Globulin Ratio (1.60-3.17) Ratio Crossmatch Assessment and Plan Assessment: Acute hypoxic respiratory failure secondary to an acute exacerbation of systolic congestive heart failure ejection fraction 35 to 40% Acute cellulitis of right foot with previous amputation of big toe and second toe, culture revealed no growth Acute on chronic stage IV kidney disease, baseline creatinine is in the range of 2.0 since 2019 Anemia suspect secondary to above, receiving a 4th unit of packed red blood cells Hypotension secondary to anemia, received 2-1/2 L of fluid resuscitation, midodrine added Hyperkalemia secondary to above, remains on Lokelma Hypernatremia History of peripheral vessel occlusive disease and previous stenting of right SFA and right popliteal artery Severe pulmonary hypertension Paroxysmal atrial fibrillation, anticoagulated with Eliquis History of CVA with residual dysphagia requiring PEG tube placement Type 2 diabetes Chronic and ongoing tobacco dependence Plan: The patient was seen and evaluated Labs and medications reviewed Having issues with hypotension Receive 2-1/2 L of fluid resuscitation Admitted drained 10 mg 3 times a day Hemoglobin today 6.3 Receiving a 4th unit of packed red blood cells today EGD/colonoscopy today I have personally seen and examined the patient, performed the documentation and the assessment and plan as written. Number of minutes spent on the visit: 10.
[2024-04-24] MEDS: DESMOPRESSIN ACETATE 24 MCG in SODIUM CHLORIDE 0.9% 50 ML IVPB ONE (15:19)
--- NOTE | 2024-04-24 16:33 | P.PN ---
Subjective Progress Note Date: 04/24/24 Principal diagnosis: Reason for follow-up is right foot wound and cellulitis Patient is a 63-year-old male with a past medical history significant for diabetes mellitus hypertension hyperlipidemia pneumonia CVA TIA COPD patient did have a right big toe amputation done by and was recently admitted to the hospital concerning for pain to the right foot and cold feeling patient has been diagnosed with PAD and is s/p peripheral intervention by interventional cardiology with angioplasty of SFA and right popliteal arteries however unsuccessful angioplasty of the right anterior tibial artery patient presented to hospital with weakness hypoxemia. On today's evaluation that is 04/24/2024, patient has been afebrile, patient is breathing comfortably and is currently on 3 L nasal cannula oxygen, patient denies having any significant cough no chest pain shortness of breath, patient complaining of nausea with bowel prep for the colonoscopy no vomiting. Patient white count is 13.9 hemoglobin is 6.3 creatinine is 2.3 Objective - Vital Signs Vital signs: Vital Signs Temp 97.3 F L 04/24/24 11:02 Pulse 74 04/24/24 12:13 Resp 16 04/24/24 11:02 BP 109/56 04/24/24 11:02 Pulse Ox 93 L 04/24/24 11:02 FiO2 Intake & Output 04/23/24 04/24/24 04/24/24 18:59 06:59 18:59 Intake Total 682 0 Output Total 300 Balance 382 0 Weight 99.4 kg Intake: Tube Feeding 372 Blood Product 310 0 Unit 0 Rc As-1 Unit 310 [id number] Output: Urine 300 Other: Voiding Method Toilet Urinal Urinal Urinal # Bowel Movements 1 1 1 - Exam GENERAL DESCRIPTION: Middle-age male lying in bed in no distress RESPIRATORY SYSTEM: Unlabored breathing , decreased breath sounds at bases HEART: S1 S2 regular rate and rhythm , ABDOMEN: Soft , no tenderness EXTREMITIES: Right foot wound base with no significant slough tissue surrounding redness - Labs CBC & Chem 7: 04/24/24 06:24 04/24/24 06:24 Labs: Abnormal Lab Results - Last 24 Hours (Table) 04/21/24 04/21/24 04/23/24 Range/Units 12:50 22:13 17:23 WBC (3.8-10.6) k/uL RBC (4.30-5.90) m/uL Hgb (13.0-17.5) gm/dL Hct (39.0-53.0) % MCV (80.0-100.0) fL RDW (11.5-15.5) % Neutrophils # (1.3-7.7) k/uL Haptoglobin 211.0 H (31.2-198.0) mg/dL BUN (9.0-27.0) mg/dL Creatinine (0.6-1.5) mg/dL Est GFR (CKD-EPI) (>=60) BUN/Creatinine Ratio (12.00-20.00) Ratio Glucose (70-110) mg/dL POC Glucose (mg/dL) 194 H (70-110) mg/dL Calcium (8.7-10.3) mg/dL Total Protein (6.2-8.2) g/dL Albumin (3.8-4.9) g/dL Albumin/Globulin Ratio (1.60-3.17) Ratio Crossmatch See Detail 04/24/24 04/24/24 04/24/24 Range/Units 06:03 06:24 06:24 WBC 13.9 H (3.8-10.6) k/uL RBC 2.00 L (4.30-5.90) m/uL Hgb 6.3 L* (13.0-17.5) gm/dL Hct 20.0 L (39.0-53.0) % MCV 100.3 H D (80.0-100.0) fL RDW 20.7 H (11.5-15.5) % Neutrophils # 10.4 H (1.3-7.7) k/uL Haptoglobin (31.2-198.0) mg/dL BUN 89.5 H (9.0-27.0) mg/dL Creatinine 2.3 H (0.6-1.5) mg/dL Est GFR (CKD-EPI) 31 L (>=60) BUN/Creatinine Ratio 38.91 H (12.00-20.00) Ratio Glucose 129 H (70-110) mg/dL POC Glucose (mg/dL) 116 H (70-110) mg/dL Calcium 7.9 L (8.7-10.3) mg/dL Total Protein 4.9 L (6.2-8.2) g/dL Albumin 2.9 L (3.8-4.9) g/dL Albumin/Globulin Ratio 1.45 L (1.60-3.17) Ratio Crossmatch 04/24/24 Range/Units 12:20 WBC (3.8-10.6) k/uL RBC (4.30-5.90) m/uL Hgb (13.0-17.5) gm/dL Hct (39.0-53.0) % MCV (80.0-100.0) fL RDW (11.5-15.5) % Neutrophils # (1.3-7.7) k/uL Haptoglobin (31.2-198.0) mg/dL BUN (9.0-27.0) mg/dL Creatinine (0.6-1.5) mg/dL Est GFR (CKD-EPI) (>=60) BUN/Creatinine Ratio (12.00-20.00) Ratio Glucose (70-110) mg/dL POC Glucose (mg/dL) 131 H (70-110) mg/dL Calcium (8.7-10.3) mg/dL Total Protein (6.2-8.2) g/dL Albumin (3.8-4.9) g/dL Albumin/Globulin Ratio (1.60-3.17) Ratio Crossmatch Assessment and Plan (1) Cellulitis of right foot Current Visit: No Status: Acute Code(s): L03.115 - CELLULITIS OF RIGHT LOWER LIMB SNOMED Code(s): 44849339351450595 (2) Diabetic foot ulcer Current Visit: No Status: Acute Code(s): E11.621 - TYPE 2 DIABETES MELLITUS WITH FOOT ULCER; L97.509 - NON-PRESSURE CHRONIC ULCER OTH PRT UNSP FOOT W UNSP SEVERITY SNOMED Code(s): 355678161 Plan: 1patient presenting to the hospital mostly with generalized weakness low O2 sats possibly underlying cardiac etiology for the patient being managed by ca rdiology, patient also have a 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 2patient is afebrile, noticed to have slight worsening of the white count possibly reactive as the patient did have evidence of GI bleed with a hemoglobin drawn, patient is currently getting prepped for colonoscopy continue Unasyn Dictation was produced using [email or web address] dictation software. please excuse any grammatical, word or spelling errors. Time with Patient: Less than 30
[2024-04-24] MEDS ORDERED: PROPOFOL 10 MG/ML 20 ML VIAL IV ONE (16:37)
[2024-04-24] MEDS: LACTATED RINGERS 1,000 ML IV ONE (16:37)
[2024-04-24] MEDS ORDERED: KETAMINE HCL IN 0.9 % NACL 50 MG/5 ML SYRINGE ONE (16:37)
--- NOTE | 2024-04-24 17:07 | P.PCN ---
Date of Procedure: 04/24/24 Procedure(s) Performed: Brief history: Patient is a pleasant 63-year-old white male scheduled for an upper endoscopy as well as colonoscopy as a part of evaluation of severe symptomatic anemia and occult stool. He had a hemoglobin of 6.3 g/dL and required 4 units of PRBC transfusion the last 2 days.Patient has history of coronary artery disease and prior history of stroke. Presently on aspirin and Plavix. History of PEG tube placement a year ago following a stroke for dysphagia. Procedure performed: Esophagogastroduodenoscopy Colonoscopy Preoperative diagnosis: Severe symptomatic anemia and dark colored stool [place]est[place]: [facility] [place] Procedure: After informed consent was obtained from the patient was brought into the endoscopy unit and IV sedation was administered by anesthesia under continuous monitoring. Initially upper endoscopy was done. The Olympus GF 160 video endoscope was inserted inserted into the mouth and esophagus intubated without any difficulty and was gradually advanced into the stomach and duodenum and carefully examined. The bulb and second part of the duodenum appeared normal. The scope was then withdrawn into the stomach adequately insufflated with air and upon careful examination the antrum and body, cardia and fundus appeared normal. The internal bumper of the PEG tube appeared in good position. The scope was then withdrawn into the esophagus. The GE junction was located at 40 cm to the incisors. It appeared regular with no erythema erosions or ulcerations. Rest of the esophagus appeared normal. Patient tolerated the procedure well. At this time the patient continued to remain sedation. Initial digital rectal examination was normal. Olympus CF 160 video colonoscope was then inserted into the rectum and gradually advanced to the cecum without any difficulty. Careful examination was performed as the scope was gradually being withdrawn. The prep was Fair. There was some sticky still noted in the base of the cecum as well as in the ascending colon that could not thoroughly washed. The visualized portions of the ascending colon, transverse colon, descending colon, sigmoid colon and rectum appeared normal. Retroflexion was performed in the rectum and no lesions were noted. Patient tolerated the procedure well. Impression: 1.Upper endoscopy revealed no evidence of peptic ulcer disease or esophagitis. No evidence of active bleeding. Intact internal bumper of the PEG tube 2.Colonoscopy revealed3 small sigmoid colon polyps measuring between 3-4 mm in size which were not removed. Rest of the colon appeared normal. No active bleeding noted. Recommendations: Findings of this examination were discussed with the patient. Monitor CBC daily. Resume to tube feeds today.
[2024-04-24] MEDS: SODIUM CHLORIDE 0.9% 500 ML BAG IV STA (17:55)
[2024-04-24 18:10] LABS: Glucose,Whole Blood 131 mg/dL (70-110)
[2024-04-25 00:02] LABS: Glucose,Whole Blood 145 mg/dL (70-110)
[2024-04-25 05:50] LABS: Glucose,Whole Blood 160 mg/dL (70-110)
[2024-04-25] MEDS: CLOPIDOGREL 75 MG TAB PO SCH (08:54)
[2024-04-25 09:47] LABS: Basophils % (A) 0.8 %; Eosinophils # (A) 0.14 X 10*3/uL (0.04-0.35); Eosinophils % (A) 1.1 %; HCT 21.4 % (39.6-50.0); HGB 6.7 g/dL (13.0-17.0); Lymphocytes # (A) 1.22 X 10*3/uL (0.90-5.00); Lymphocytes % (A) 9.8 %; MCH 31.5 pg (27.0-32.0); MCHC 31.3 g/dL (32.0-37.0); MCV 100.5 FL (80.0-97.0); Mean Platelet Volume 11.4 FL (9.5-12.2); Monocytes # (A) 1.27 X 10*3/uL (0.20-1.00); Monocytes % (A) 10.2 %; NRBC Per 100 WBC 0.47 X 10*3/uL (0.00-0.01); Neutrophils # (A) 9.58 X 10*3/uL (1.80-7.70); Neutrophils % (A) 76.6 %; Platelet Count 290 X 10*3/uL (140-440); RBC 2.13 X 10*6/uL (4.40-5.60); RDW 21.9 % (11.5-14.5)
[2024-04-25 09:58] LABS: ALT 69 U/L (10-49); AST 77 U/L (14-35); Albumin 2.9 g/dL (3.8-4.9); Albumin/Globulin Ratio 1.45 Ratio (1.60-3.17); Alkaline Phosphatase 73 U/L (41-126); BUN/Creat Ratio 34.26 Ratio (12.00-20.00); Blood Urea Nitrogen 78.8 mg/dL (9.0-27.0); Calcium 7.7 mg/dL (8.7-10.3); Chloride 106 mmol/L (96-109); Glucose 150 mg/dL (70-110); Potassium 4.8 mmol/L (3.5-5.5); Sodium 142 mmol/L (135-145); Total Bilirubin 0.4 mg/dL (0.3-1.2); Total Protein 4.9 g/dL (6.2-8.2)
--- NOTE | 2024-04-25 11:44 | P.PN ---
Subjective Progress Note Date: 04/25/24 Everett Juárez, is a 63-year-old male who presented to [facility] emergency room with a chief complaint of worsening shortness of breath and generalized weakness, patient was recently admitted to [facility] with peripheral vascular disease right foot osteomyelitis and underwent stenting of the right SFA by Dr. Dillard, he has a previous history of right great toe amputation. He was evaluated in the emergency room vital examination on presentation revealed a temperature of 98.9 pulse 110 respiration 18 blood pressure 114/72 pulse ox 96% on room air Laboratory data reveals a white blood count of 8.7 hemoglobin 11.4 platelet count 283 sodium 139 potassium 4.9 chloride 110 CO2 23 BUN 41 creatinine 2.01 D- dimer was elevated at 2.10, troponin level was elevated at 0.043 Testing in the emergency room revealed chest x-ray done in the emergency room revealed cardiomegaly and mild pulmonary vascular congestion suggestive of congestive heart failure, VQ scan showed no evidence for pulmonary embolism, EKG revealed atrial fibrillation with moderate T wave abnormalities suggestive of lateral ischemia. Patient was admitted to medical floor for further evaluation and treatment Past medical history is significant for history of atrial fibrillation, history of peripheral arterial disease with previous history of right great toe amputation, history of COPD, history of diabetes mellitus type 2, history of hyperkalemia, history of chronic kidney disease. On review of systems patient is alert and oriented x 3 in no apparent distress, he is complaining of generalized weakness, complaining of shortness of breath, which is worse with activity, and complaining of right foot pain, otherwise he denies any complaints, there is no fever or chills no headache or dizziness no chest pain, no cough no nausea or vomiting no abdominal pain no diarrhea and no urinary symptoms On 04/14/2024 patient is alert and oriented 3.Patient remains on IV Unasyn and IV Lasix. 2-D echo completed showing an EF of 35-40%. Current vital signs temp 98.3, heart 81, respiratory rate 18, blood pressure 135/67 with a pulse ox of 100% on 3 L. Patient reports improvement with shortness of breath. Patient denies nausea vomiting or diarrhea. Patient denies any urinary burning or frequency On 04/15/2024 Patient is alert and oriented 3. Patient remains on IV Unasyn. Patient has been transitioned to by mouth Lasix.Current vital signs temp 97.1, heart rate 98, respiratory rate 18, blood pressure 121/79 with pulse ox 96% on 3 L. Patient denies chest pain or shortness breath. Patient denies nausea vomiting or diarrhea. Patient denies any urinary burning or frequency. On 04/16/2024 he is alert and oriented x 3 in no apparent distress he reports improvement in his shortness of breath there is no fever or chills no headache or dizziness no chest pain no cough no nausea or vomiting no abdominal pain no diarrhea and no urinary symptoms. On 04/17/2024 patient is alert and oriented x 3. Current vital signs Temp 98.1, heart rate 100, respiratory rate 16, blood pressure 153/81 with a pulse ox of 97% on 2 L. Patient remains on IV Unasyn. Awaiting final antibiotic recommenda tions per ID. Patient denies chest pain or shortness of breath. Patient denies nausea vomiting or diarrhea. Patient denies any urinary burning or frequency. On 04/18/2024 patient was seen and examined on the medical floor he is alert and oriented x 3 in no apparent distress there is no fever or chills no headache or dizziness no chest pain no shortness of breath no cough no nausea or vomiting no abdominal pain no diarrhea no urinary symptoms, he is still maintained on oxygen supplements, patient need to be assessed for need for home oxygen, he is also maintained on tube feeding, nurse case manager is working on arrangement for tube feeding at home. Otherwise continue with current management will recheck in a.m.. On 04/19/2024 patient is alert and oriented x 3. Patient is maintained on 3 L n roberth cannula. Patient also maintained on IV Unasyn. Awaiting final IV recommendations from infectious disease. Current vital signs Temp 98.2, heart rate 82, blood pressure 116/70 with a pulse ox of 97% on 3 L patient denies chest pain or shortness of breath. Patient denies nausea vomiting or diarrhea. Patient denies any urinary burning or frequency On 04/20/2024 patient was seen and examined on the medical floor he is alert and oriented x 3 in no apparent distress, there is no fever or chills no headache or dizziness no chest pain no shortness of breath no cough no nausea or vomiting no abdominal pain no diarrhea no urinary symptoms, patient is still having difficulty with hyperkalemia, he is maintained on IV fluids and [facility] nephrology are following, will recheck labs in a.m. On 04/21/2024 patient is alert and oriented x 3. Potassium remains elevated at 5.9 awaiting further recommendations from nephrology standpoint. Patient denies chest pain or shortness of breath. Patient denies nausea vomiting or diarrhea. Patient denies any urinary burning or frequency On 04/22/2024 patient is alert and oriented x 3. Patient received 1 unit PRBCs for hemoglobin of 6.8 yesterday. GI services were consulted stool for occult blood ordered. Nephrology service is following for elevated potassium level. At this time patient denies chest pain or shortness of breath. Patient denies nausea vomiting or diarrhea. Patient denies any urinary burning frequency. On 04/23/2024 patient was seen and examined on the medical floor he is alert and oriented x 3 in no apparent distress, his hemoglobin today is again 6.01 unit of red blood cell transfusion was ordered, he was reevaluated by gastroenterology and plans are for EGD and colonoscopy tomorrow, otherwise he denies any complaints there is no fever or chills no headache or dizziness no chest pain no shortness of breath no cough no nausea or vomiting no abdominal pain no diarrhea no urinary symptoms On 04/24/2024 patient is alert and oriented 3. Plans for EGD and colonoscopy today with GI services.Patient had episodes of hypotension throughout night received IV bolus. Continue to transfuse patient for hemoglobin less than 7. Patient remains on IV Unasyn. This time patient denies chest pain or shortness breath. Patient denies nausea vomiting or diarrhea. Patient denies any urinary burning or frequency. On 04/25/2024 patient was seen and examined on the medical floor he is alert and oriented x 3 in no apparent distress there is no fever or chills no headache or dizziness no chest pain no shortness of breath no cough no nausea or vomiting no abdominal pain no diarrhea no urinary symptoms, hemoglobin is down again to 6.7 patient will be given 1 unit of red blood cell transfusion, EGD and colonoscopy results done yesterday were reviewed, at this time will consult Dr. Jackson regarding recurrent pneumonia requiring multiple red blood cell transfusion, continue with tube feeding at this time. Objective - Vital Signs Vital signs: Vital Signs Temp 98.2 F 07/20/24 07:51 Pulse 72 04/25/24 08:15 Resp 19 04/25/24 07:51 BP 125/70 04/25/24 07:51 Pulse Ox 96 04/25/24 07:51 FiO2 Intake & Output 04/24/24 04/25/24 04/25/24 18:59 06:59 18:59 Intake Total 510 387 Output Total 450 Balance 510 -63 Weight 97.5 kg Intake: IV 200 Tube Feeding 387 Blood Product 310 Rc Irr As1 Unit 310 [id number] Output: Urine 450 Other: Voiding Method Urinal Bedside Commode # Bowel Movements 1 - Exam In general patient is alert and oriented x 3 in no distress HEENT head normocephalic and atraumatic Neck is supple no JVD no goiter no lymphadenopathy no carotid bruit Chest examination reveals a scattered crackles in both lung [place] no wheezing Cardiac exam reveals irregular heart sounds S1 and S2 no gallops no murmurs Abdomen is soft nontender no organomegaly with normal bowel sounds Extremity exam reveals no edema no cyanosis or clubbing, the right great toe is amputated with a large ulcer at the base of the amputated right great toe with purulent discharge Neurological examination reveals no gross focal deficits - Labs CBC & Chem 7: 04/25/24 06:26 04/25/24 06:26 Labs: Abnormal Lab Results - Last 24 Hours (Table) 04/21/24 04/24/24 04/24/24 Range/Units 12:50 12:20 18:09 WBC (4.50-10.00) X 10*3/uL RBC (4.40-5.60) X 10*6/uL Hgb (13.0-17.0) g/dL Hct (39.6-50.0) % MCV (80.0-97.0) FL MCHC (32.0-37.0) g/dL RDW (11.5-14.5) % Immature Gran # (0.00-0.04) X 10*3/uL Neutrophils # (1.80-7.70) X 10*3/uL Monocytes # (0.20-1.00) X 10*3/uL NRBC/100 WBC Diff (0.00-0.01) X 10*3/uL BUN (9.0-27.0) mg/dL Creatinine (0.6-1.5) mg/dL Est GFR (CKD-EPI) (>=60) BUN/Creatinine Ratio (12.00-20.00) Ratio Glucose (70-110) mg/dL POC Glucose (mg/dL) 131 H 131 H (70-110) mg/dL Calcium (8.7-10.3) mg/dL AST (14-35) U/L ALT (10-49) U/L Total Protein (6.2-8.2) g/dL Albumin (3.8-4.9) g/dL Albumin/Globulin Ratio (1.60-3.17) Ratio Crossmatch See Detail 04/25/24 04/25/24 04/25/24 Range/Units 00:01 05:41 06:26 WBC 12.50 H (4.50-10.00) X 10*3/uL RBC 2.13 L (4.40-5.60) X 10*6/uL Hgb 6.7 A* (13.0-17.0) g/dL Hct 21.4 L (39.6-50.0) % MCV 100.5 H (80.0-97.0) FL MCHC 31.3 L (32.0-37.0) g/dL RDW 21.9 H (11.5-14.5) % Immature Gran # 0.19 H (0.00-0.04) X 10*3/uL Neutrophils # 9.58 H (1.80-7.70) X 10*3/uL Monocytes # 1.27 H (0.20-1.00) X 10*3/uL NRBC/100 WBC Diff 0.47 H (0.00-0.01) X 10*3/uL BUN (9.0-27.0) mg/dL Creatinine (0.6-1.5) mg/dL Est GFR (CKD-EPI) (>=60) BUN/Creatinine Ratio (12.00-20.00) Ratio Glucose (70-110) mg/dL POC Glucose (mg/dL) 145 H 160 H (70-110) mg/dL Calcium (8.7-10.3) mg/dL AST (14-35) U/L ALT (10-49) U/L Total Protein (6.2-8.2) g/dL Albumin (3.8-4.9) g/dL Albumin/Globulin Ratio (1.60-3.17) Ratio Crossmatch 04/25/24 Range/Units 06:26 WBC (4.50-10.00) X 10*3/uL RBC (4.40-5.60) X 10*6/uL Hgb (13.0-17.0) g/dL Hct (39.6-50.0) % MCV (80.0-97.0) FL MCHC (32.0-37.0) g/dL RDW (11.5-14.5) % Immature Gran # (0.00-0.04) X 10*3/uL Neutrophils # (1.80-7.70) X 10*3/uL Monocytes # (0.20-1.00) X 10*3/uL NRBC/100 WBC Diff (0.00-0.01) X 10*3/uL BUN 78.8 H (9.0-27.0) mg/dL Creatinine 2.3 H (0.6-1.5) mg/dL Est GFR (CKD-EPI) 31 L (>=60) BUN/Creatinine Ratio 34.26 H (12.00-20.00) Ratio Glucose 150 H (70-110) mg/dL POC Glucose (mg/dL) (70-110) mg/dL Calcium 7.7 L (8.7-10.3) mg/dL AST 77 H (14-35) U/L ALT 69 H (10-49) U/L Total Protein 4.9 L (6.2-8.2) g/dL Albumin 2.9 L (3.8-4.9) g/dL Albumin/Globulin Ratio 1.45 L (1.60-3.17) Ratio Crossmatch Assessment and Plan Plan: Worsening shortness of breath, multifactorial, possibly related to acute congestive heart failure, and underlying COPD Atrial fibrillation, with rapid ventricular response on presentation, heart rate was 110 New onset cardiomyopathy. Anemia plans for EGD and colonoscopy 04/23/2024 Generalized weakness Large ulcer at the base of the right great toe with purulent discharge, patient was maintained on oral Augmentin as outpatient, infectious disease consultation requested Underlying history of peripheral arterial disease, with recent history of angioplasty and stent placement to the right lower extremity on 04/08/2024 Underlying history of diabetes mellitus Underlying history of chronic obstructive pulmonary disease Underlying history of chronic kidney disease Underlying history of hyperkalemia Underlying history of chronic continued tobacco abuse At this time patient is admitted to telemetry floor Home medications reviewed and reordered Consultation for cardiology and pulmonary were requested in the emergency room For DVT prophylaxis, patient is maintained on scds (eliquis on hold due to anemia) Will add infectious disease consultation in regard to base of right great toe ulcer Will follow closely
[2024-04-25 11:53] LABS: Glucose,Whole Blood 142 mg/dL (70-110)
--- NOTE | 2024-04-25 12:16 | P.PN ---
Subjective Progress Note Date: 04/25/24 Principal diagnosis: Anemia. This is a 63-year-old white male with history of multiple medical problems including coronary artery disease, chronic atrial fibrillation, peripheral vessel occlusive disease, severe pulmonary hypertension, chronic obstructive pulmonary disease, patient normally sees Dr. Dillard on outpatient basis. Patient was never seen by a dry house attendant. Admitted this time with few days history of increased shortness of breath, and according to the his O2 saturation was down in the 60s. Patient was brought into the ER, chest x-ray showed evidence of pulmonary edema, VQ scan negative for pulmonary embolism, patient was admitted and this consult was initiated. Patient is not a great historian, most of the information was obtained from his , apparently the patient had history of CVA in the past, and he had a previous PEG tube placement Labs on admission showed relatively normal CBC, no leukocytosis, D-dimer was a bit elevated at 2.10 and renal profile was abnormal with BUN of 43 and creatinine 2.01 however BNP level was 12,300 and troponin was 0.043. Since admission, the patient received 1 dose of Lasix, and he is at least 1.5 L negative fluid balance The patient is seen today April 14, 2024 in follow-up on the selective care unit. He is currently sitting up at the bedside. Awake and alert in no acute distress. Breathing a bit easier today compared to yesterday. Currently maintaining good O2 saturations in the upper 90s on 3 L/min per nasal cannula. He is afebrile. Hemodynamically stable. Echocardiogram reveals impaired left ventricular systolic function with an ejection fraction of 35 to 40%. Severe pulmonary hypertension. Moderate to severely dilated left atrium. Right first toe culture is pending. Currently on Unasyn. Glucose 125. Being nourished with Glucerna at 51 MLS per hour via his PEG tube. Anticoagulated with Eliquis. Remains on diuretics. Making adequate urine. The patient is seen today April 15, 2024 in follow-up on the selective care unit. He is awake and alert in no acute distress. Maintaining O2 saturations in the 90s on 3 L/min per nasal cannula. Hemodynamically stable. White count 8.4. Hemoglobin 11.2. Platelets 321. Sodium 143. Potassium 4.9. Bicarb 29. BUN 45. Creatinine 1.99. Glucose 126. He is continued on Unasyn. Anticoagulated with Eliquis. Remains on bronchodilators. Remains on oral diuretics. Continued on Glucerna via his PEG tube. Barium swallow is pending so the patient can continue on tube feedings in the outpatient setting Patient was evaluated today on 04/16/2024, patient is doing well, comfortable, not in any distress, on 3 L nasal cannula with O2 sats of 96%. WBC is 8.5 hemoglobin 10.5 electrolytes are relatively normal with potassium of 5.2 BUN is 48 creatinine 1.94, steadily improving since admission patient had a successful swallow evaluation study that came back unremarkable. The patient was seen today April 17, 2024 in follow-up on the selective care unit. He is currently resting comfortably in bed. Awake and alert in no acute distress. Maintaining O2 saturations in the 90s on 2 L/min per nasal cannula. Right foot culture results revealing no growth. White count 9.6. Hemoglobin 10.9. Platelets 305. Sodium 145. Potassium 5.4. Bicarb 32. BUN 56. Creatinine 1.99. Glucose 133. He remains on bronchodilators. Anticoagulated with Eliquis. Antibiotics in the form of Unasyn. Remains on Glucerna tube feedings. The patient is seen today April 18, 2024 in follow-up on the regular medical floor. He is currently sitting up at the bedside. Awake and alert in no acute distress. Maintaining O2 saturations in the 90s on 2 L/min per nasal cannula. He has been afebrile. Hemodynamically stable. He remains on Glucerna at 51 mL/h which is goal. He remains on antibiotics in the form of Unasyn. His right foot dressing is dry and intact. Glucose 140. He remains on bronchodilators. Oral diuretics. Anticoagulated with Eliquis. The patient is seen today April 19, 2024 in follow-up on the regular medical floor. He is currently sitting up in bed. Awake and alert in no acute distress. He is maintaining good O2 saturations in the 90s on 3 L/min per nasal cannula. He remains on antibiotics in the form of Unasyn. He is being nourished with Glucerna at 51 mL/h which is his goal. He is continued on bronchodilators. Anticoagulated with Eliquis. Normal saline at 100 MLS per hour. White count 10.8. Hemoglobin 9.2. Platelets 307. Sodium 147. Potassium 6.3. BUN 84. Creatinine 2.3. Glucose 105. The patient is seen today April 20, 2024 in follow-up on the regular medical floor. He is currently sitting up at the bedside. Awake and alert in no acute distress. Maintaining good O2 saturations in the 90s on 4 L/min per nasal cannula. He remains on Glucerna at 51 mL/h which is goal. 0.45% normal saline at 75 MLS per hour. Potassium 5.6. Bicarb 30. BUN 90. Creatinine 2.4. Glucose 120. He received Lokelma yesterday for his hyperkalemia. Right foot cultures revealed no growth. Sputum culture revealed Jenae. He continues on Unasyn per ID service. He remains on bronchodilators. Anticoagulated with Eliquis. Remains on oral diuretics. The patient is seen today April 21, 2024 in follow-up on the regular medical floor. He is awake and alert in no acute distress. Sitting up at the bedside. Denies any worsening shortness of breath, cough or congestion. Continues to maintain good O2 saturations in the upper 90s on 4 L/min per nasal cannula. He is afebrile. Hemodynamically stable. White count 11.0. Hemoglobin 6.8. Platelets 324. Sodium 143. Potassium 5.9. Bicarb 29. BUN 98. Creatinine 2.4. Glucose 127. Nephrology is following. He remains on bronchodilators and Unasyn. The patient is seen today April 22, 2024 in follow-up on the regular medical floor. He is currently sitting up at the bedside. Awake and alert in no acute distress. He is receiving 2 units of packed red blood cells for hemoglobin of 6.4 today. White count 10.7. Platelets 308. Sodium 141. Potassium 5.8. Bicarb 28. BUN 107. Creatinine 2.7. Glucose 150. He remains on Unasyn. Continued on bronchodilators. Remains on Lokelma for his hyperkalemia. Receiving folate acid. The patient is seen today April 23, 2024 in follow-up on the regular medical floor. He is awake and alert in no acute distress. Maintaining O2 saturations in the 90s on 2 L/min per nasal cannula. Receiving normal saline at 20 MLS per hour. Continued on Nepro PEG tube feedings at 43 mL/h which is goal. He is status post 2 units of packed red blood cells. Hemoglobin 6.0 today. To receive 1 unit of packed red blood cells today unit. GI service is following. White count 13.7. Platelets 300. Sodium 141. Potassium 5.0. Bicarb 30. BUN 109. Creatinine 2.5. Glucose 146. He remains on Unasyn. Remains on Lokelma. The patient is seen today 04/24/2020 for follow-up on the regular medical floor. He is currently resting in bed. He has been having issues with anemia and his hemoglobin was 6.3 again today. He is receiving his fourth unit of packed red blood cells. He has received 2-1/2 L of fluid resuscitation. He is awaiting EGD/colonoscopy today. He remains on Unasyn. Continued on bronchodilators. Remains on Lokelma. white count 13.9. Platelets 323. Sodium 145. Potassium 5.3. Bicarb 27. BUN 89. Creatinine 2.3. Glucose 129. Progress note dated April 25, 2024. 63-year-old male seen on the general medical floor. He is in room 475. The patient is currently resting in bed. He denies any specific complaints, although he appears to be a bit weak. He had blood work today showing a white count of 12.5, hemoglobin 6.7, hematocrit 21.4, and a platelet count of 290,000. Sodium 142, potassium 4.8, chlorides 106, CO2 26, BUN 79, creatinine 2.3. Glucose was 142. AST 77 with an ALT of 69. Sputum samples are essentially negative although there is some Jneae albicans on the most recent sputum. No recent chest x-ray. Objective - Vital Signs Vital signs: Vital Signs Temp 98.2 F 04/25/24 07:51 Pulse 72 04/25/24 08:15 Resp 19 04/25/24 07:51 BP 125/70 04/25/24 07:51 Pulse Ox 96 04/25/24 07:51 FiO2 Intake & Output 04/24/24 04/25/24 04/25/24 18:59 06:59 18:59 Intake Total 510 387 Output Total 450 Balance 510 -63 Weight 97.5 kg Intake: IV 200 Tube Feeding 387 Blood Product 310 Rc Irr As1 Unit 310 [id number] Output: Urine 450 Other: Voiding Method Urinal Bedside Commode # Bowel Movements 1 - Exam No acute distress, oriented 3. 4 L saturation is 96%. HEENT examination is grossly unremarkable. Mucous membranes are moist. No oral lesions. Neck supple. Full range of motion. No adenopathy thyromegaly or neck vein distention. Cardiovascular examination reveals regular rhythm rate. S1-S2 normal. No S3 or S4. No discernible murmur noted. Heart sounds are distant. Heart rate 72 bpm. Lungs reveal mostly clear breath sounds. Scattered rhonchi. No wheezes or crackles. 4 L saturation is 96%. Abdomen soft bowel sounds are heard. No masses or tenderness. Extremities are intact. No cyanosis clubbing or edema. Skin is without rash or lesion. Neurologic examination is brief but nonfocal. - Labs CBC & Chem 7: 04/25/24 06:26 04/25/24 06:26 Labs: Abnormal Lab Results - Last 24 Hours (Table) 04/21/24 04/24/24 04/24/24 Range/Units 12:50 12:20 18:09 WBC (4.50-10.00) X 10*3/uL RBC (4.40-5.60) X 10*6/uL Hgb (13.0-17.0) g/dL Hct (39.6-50.0) % MCV (80.0-97.0) FL MCHC (32.0-37.0) g/dL RDW (11.5-14.5) % Immature Gran # (0.00-0.04) X 10*3/uL Neutrophils # (1.80-7.70) X 10*3/uL Monocytes # (0.20-1.00) X 10*3/uL NRBC/100 WBC Diff (0.00-0.01) X 10*3/uL BUN (9.0-27.0) mg/dL Creatinine (0.6-1.5) mg/dL Est GFR (CKD-EPI) (>=60) BUN/Creatinine Ratio (12.00-20.00) Ratio Glucose (70-110) mg/dL POC Glucose (mg/dL) 131 H 131 H (70-110) mg/dL Calcium (8.7-10.3) mg/dL AST (14-35) U/L ALT (10-49) U/L Total Protein (6.2-8.2) g/dL Albumin (3.8-4.9) g/dL Albumin/Globulin Ratio (1.60-3.17) Ratio Crossmatch See Detail 04/25/24 04/25/24 04/25/24 Range/Units 00:01 05:41 06:26 WBC 12.50 H (4.50-10.00) X 10*3/uL RBC 2.13 L (4.40-5.60) X 10*6/uL Hgb 6.7 A* (13.0-17.0) g/dL Hct 21.4 L (39.6-50.0) % MCV 100.5 H (80.0-97.0) FL MCHC 31.3 L (32.0-37.0) g/dL RDW 21.9 H (11.5-14.5) % Immature Gran # 0.19 H (0.00-0.04) X 10*3/uL Neutrophils # 9.58 H (1.80-7.70) X 10*3/uL Monocytes # 1.27 H (0.20-1.00) X 10*3/uL NRBC/100 WBC Diff 0.47 H (0.00-0.01) X 10*3/uL BUN (9.0-27.0) mg/dL Creatinine (0.6-1.5) mg/dL Est GFR (CKD-EPI) (>=60) BUN/Creatinine Ratio (12.00-20.00) Ratio Glucose (70-110) mg/dL POC Glucose (mg/dL) 145 H 160 H (70-110) mg/dL Calcium (8.7-10.3) mg/dL AST (14-35) U/L ALT (10-49) U/L Total Protein (6.2-8.2) g/dL Albumin (3.8-4.9) g/dL Albumin/Globulin Ratio (1.60-3.17) Ratio Crossmatch 04/25/24 04/25/24 Range/Units 06:26 11:52 WBC (4.50-10.00) X 10*3/uL RBC (4.40-5.60) X 10*6/uL Hgb (13.0-17.0) g/dL Hct (39.6-50.0) % MCV (80.0-97.0) FL MCHC (32.0-37.0) g/dL RDW (11.5-14.5) % Immature Gran # (0.00-0.04) X 10*3/uL Neutrophils # (1.80-7.70) X 10*3/uL Monocytes # (0.20-1.00) X 10*3/uL NRBC/100 WBC Diff (0.00-0.01) X 10*3/uL BUN 78.8 H (9.0-27.0) mg/dL Creatinine 2.3 H (0.6-1.5) mg/dL Est GFR (CKD-EPI) 31 L (>=60) BUN/Creatinine Ratio 34.26 H (12.00-20.00) Ratio Glucose 150 H (70-110) mg/dL POC Glucose (mg/dL) 142 H (70-110) mg/dL Calcium 7.7 L (8.7-10.3) mg/dL AST 77 H (14-35) U/L ALT 69 H (10-49) U/L Total Protein 4.9 L (6.2-8.2) g/dL Albumin 2.9 L (3.8-4.9) g/dL Albumin/Globulin Ratio 1.45 L (1.60-3.17) Ratio Crossmatch Assessment and Plan Assessment: Acute hypoxic respiratory failure secondary to an acute exacerbation of systolic congestive heart failure. 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 Acute on chronic stage IV kidney disease. Anemia suspect secondary to above, S/P 5 units of blood. Hypotension secondary to anemia, received 2-1/2 L of fluid resuscitation, midodrine added. Hyperkalemia. Hypernatremia. History of peripheral vessel occlusive disease and previous stenting of right SFA and right popliteal artery. Severe pulmonary hypertension. Paroxysmal atrial fibrillation, anticoagulated with Eliquis. 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 Type 2 diabetes. Chronic and ongoing tobacco dependence. Plan: Plan dated April 25, 2024. The patient is seen in room 475. The patient is currently on 4 L. Saturations are 96%. The patient will likely get his fifth unit of blood today. His hemoglobin is below 7. Labs, x-rays, medications are reviewed. The patient's overall prognosis remains guarded. We will continue to follow the patient, make recommendations along the way. His blood pressure has been much more stable, with fluid resuscitation, and blood. Time with Patient: Less than 30
--- NOTE | 2024-04-25 13:25 | P.PN ---
Subjective Progress Note Date: 04/25/24 Patient is seen in follow-up for acute kidney injury on chronic kidney disease. Renal function little better. Hemoglobin remains low despite blood transfusions. Denies any more blood in stool. Wants to go home. Vital signs are stable. General: No acute distress. HEENT: Head exam is unremarkable. LUNGS: No audible rhonchi or wheezes. HEART: Rate and Rhythm are regular. ABDOMEN: Obese, nontender. PEG tube noted. EXTREMITITES: No edema. Objective - Vital Signs Vital signs: Vital Signs Temp 98.2 F 04/25/24 07:51 Pulse 72 04/25/24 08:15 Resp 19 04/25/24 07:51 BP 108/68 04/25/24 13:09 Pulse Ox 96 04/25/24 07:51 FiO2 Intake & Output 04/24/24 04/25/24 04/25/24 18:59 06:59 18:59 Intake Total 510 387 Output Total 450 Balance 510 -63 Weight 97.5 kg Intake: IV 200 Tube Feeding 387 Blood Product 310 Rc Irr As1 Unit 310 [id number] Output: Urine 450 Other: Voiding Method Urinal Bedside Commode # Voids 1 # Bowel Movements 1 - Labs CBC & Chem 7: 04/25/24 06:26 04/25/24 06:26 Labs: Abnormal Lab Results - Last 24 Hours (Table) 04/21/24 04/24/24 04/25/24 Range/Units 12:50 18:09 00:01 WBC (4.50-10.00) X 10*3/uL RBC (4.40-5.60) X 10*6/uL Hgb (13.0-17.0) g/dL Hct (39.6-50.0) % MCV (80.0-97.0) FL MCHC (32.0-37.0) g/dL RDW (11.5-14.5) % Immature Gran # (0.00-0.04) X 10*3/uL Neutrophils # (1.80-7.70) X 10*3/uL Monocytes # (0.20-1.00) X 10*3/uL NRBC/100 WBC Diff (0.00-0.01) X 10*3/uL BUN (9.0-27.0) mg/dL Creatinine (0.6-1.5) mg/dL Est GFR (CKD-EPI) (>=60) BUN/Creatinine Ratio (12.00-20.00) Ratio Glucose (70-110) mg/dL POC Glucose (mg/dL) 131 H 145 H (70-110) mg/dL Calcium (8.7-10.3) mg/dL AST (14-35) U/L ALT (10-49) U/L Total Protein (6.2-8.2) g/dL Albumin (3.8-4.9) g/dL Albumin/Globulin Ratio (1.60-3.17) Ratio Crossmatch See Detail 04/25/24 04/25/24 04/25/24 Range/Units 05:41 06:26 06:26 WBC 12.50 H (4.50-10.00) X 10*3/uL RBC 2.13 L (4.40-5.60) X 10*6/uL Hgb 6.7 A* (13.0-17.0) g/dL Hct 21.4 L (39.6-50.0) % MCV 100.5 H (80.0-97.0) FL MCHC 31.3 L (32.0-37.0) g/dL RDW 21.9 H (11.5-14.5) % Immature Gran # 0.19 H (0.00-0.04) X 10*3/uL Neutrophils # 9.58 H (1.80-7.70) X 10*3/uL Monocytes # 1.27 H (0.20-1.00) X 10*3/uL NRBC/100 WBC Diff 0.47 H (0.00-0.01) X 10*3/uL BUN 78.8 H (9.0-27.0) mg/dL Creatinine 2.3 H (0.6-1.5) mg/dL Est GFR (CKD-EPI) 31 L (>=60) BUN/Creatinine Ratio 34.26 H (12.00-20.00) Ratio Glucose 150 H (70-110) mg/dL POC Glucose (mg/dL) 160 H (70-110) mg/dL Calcium 7.7 L (8.7-10.3) mg/dL AST 77 H (14-35) U/L ALT 69 H (10-49) U/L Total Protein 4.9 L (6.2-8.2) g/dL Albumin 2.9 L (3.8-4.9) g/dL Albumin/Globulin Ratio 1.45 L (1.60-3.17) Ratio Crossmatch 04/25/24 04/25/24 Range/Units 10:50 11:52 WBC (4.50-10.00) X 10*3/uL RBC (4.40-5.60) X 10*6/uL Hgb (13.0-17.0) g/dL Hct (39.6-50.0) % MCV (80.0-97.0) FL MCHC (32.0-37.0) g/dL RDW (11.5-14.5) % Immature Gran # (0.00-0.04) X 10*3/uL Neutrophils # (1.80-7.70) X 10*3/uL Monocytes # (0.20-1.00) X 10*3/uL NRBC/100 WBC Diff (0.00-0.01) X 10*3/uL BUN (9.0-27.0) mg/dL Creatinine (0.6-1.5) mg/dL Est GFR (CKD-EPI) (>=60) BUN/Creatinine Ratio (12.00-20.00) Ratio Glucose (70-110) mg/dL POC Glucose (mg/dL) 142 H (70-110) mg/dL Calcium (8.7-10.3) mg/dL AST (14-35) U/L ALT (10-49) U/L Total Protein (6.2-8.2) g/dL Albumin (3.8-4.9) g/dL Albumin/Globulin Ratio (1.60-3.17) Ratio Crossmatch See Detail Assessment and Plan Assessment: 1. Acute kidney injury secondary to ATN secondary to acute blood loss anemia. Creatinine peaked at 2.7 this admission and stable at 2.3 today. Elevated BUN secondary to chronic kidney disease as well as GI bleed. No hydronephrosis noted on kidney ultrasound. UA fairly benign. 2. Chronic kidney disease stage IV baseline creatinine 1.8-2 secondary to solitary right kidney. History of left nephrectomy. 3. Chronic systolic CHF ejection fraction of 35 to 40% with severe pulmonary hypertension. 4. Diabetes mellitus. 5. Hypernatremia from lack of oral water intake. Improved. 6. Hyperkalemia secondary to acute kidney injury and GI bleed. stable. 7. Peripheral vascular disease. 8. Acute blood loss anemia with hemoglobin 6.3 today. No active bleeding. Status post blood transfusions and IV DDAVP. Also on Aranesp. GI following. Plan: Transfuse for Hb<7.0 Off [facility] stable Avoid nephrotoxins. s/p IV DDAVP yesterday.
--- NOTE | 2024-04-25 13:45 | P.PN ---
Subjective Progress Note Date: 04/25/24 Principal diagnosis: Reason for follow-up is right foot wound and cellulitis Patient is a 63-year-old male with a past medical history significant for diabetes mellitus hypertension hyperlipidemia pneumonia CVA TIA COPD patient did have a right big toe amputation done by and was recently admitted to the hospital concerning for pain to the right foot and cold feeling patient has been diagnosed with PAD and is s/p peripheral intervention by interventional cardiology with angioplasty of SFA and right popliteal arteries however unsuccessful angioplasty of the right anterior tibial artery patient presented to hospital with weakness hypoxemia. On today's evaluation that is 04/25/2024, Patient is afebrile this morning patient denies having any chest pain shortness of breath or cough, the patient is breathing comfortably and currently on 4 L current oxygen patient denies any abdominal pain no diarrhea no nausea no vomiting and no pain to the right foot wound. Patient white count is 12.50, hemoglobin is 6.7 creatinine is 2.3 Objective - Vital Signs Vital signs: Vital Signs Temp 98.2 F 04/25/24 07:51 Pulse 72 04/25/24 08:15 Resp 19 04/25/24 07:51 BP 125/70 04/25/24 07:51 Pulse Ox 96 04/25/24 07:51 FiO2 Intake & Output 04/24/24 04/25/24 04/25/24 18:59 06:59 18:59 Intake Total 510 387 Output Total 450 Balance 510 -63 Weight 97.5 kg Intake: IV 200 Tube Feeding 387 Blood Product 310 Rc Irr As1 Unit 310 [id number] Output: Urine 450 Other: Voiding Method Urinal Bedside Commode # Bowel Movements 1 - Exam GENERAL DESCRIPTION: Middle-age male lying in bed in no distress RESPIRATORY SYSTEM: Unlabored breathing , decreased breath sounds at bases HEART: S1 S2 regular rate and rhythm , ABDOMEN: Soft , no tenderness EXTREMITIES: Right foot wound base with no significant slough tissue surrounding redness - Labs CBC & Chem 7: 04/25/24 06:26 04/25/24 06:26 Labs: Abnormal Lab Results - Last 24 Hours (Table) 04/21/24 04/24/24 04/24/24 Range/Units 12:50 12:20 18:09 WBC (4.50-10.00) X 10*3/uL RBC (4.40-5.60) X 10*6/uL Hgb (13.0-17.0) g/dL Hct (39.6-50.0) % MCV (80.0-97.0) FL MCHC (32.0-37.0) g/dL RDW (11.5-14.5) % Immature Gran # (0.00-0.04) X 10*3/uL Neutrophils # (1.80-7.70) X 10*3/uL Monocytes # (0.20-1.00) X 10*3/uL NRBC/100 WBC Diff (0.00-0.01) X 10*3/uL BUN (9.0-27.0) mg/dL Creatinine (0.6-1.5) mg/dL Est GFR (CKD-EPI) (>=60) BUN/Creatinine Ratio (12.00-20.00) Ratio Glucose (70-110) mg/dL POC Glucose (mg/dL) 131 H 131 H (70-110) mg/dL Calcium (8.7-10.3) mg/dL AST (14-35) U/L ALT (10-49) U/L Total Protein (6.2-8.2) g/dL Albumin (3.8-4.9) g/dL Albumin/Globulin Ratio (1.60-3.17) Ratio Crossmatch See Detail 04/25/24 04/25/24 04/25/24 Range/Units 00:01 05:41 06:26 WBC 12.50 H (4.50-10.00) X 10*3/uL RBC 2.13 L (4.40-5.60) X 10*6/uL Hgb 6.7 A* (13.0-17.0) g/dL Hct 21.4 L (39.6-50.0) % MCV 100.5 H (80.0-97.0) FL MCHC 31.3 L (32.0-37.0) g/dL RDW 21.9 H (11.5-14.5) % Immature Gran # 0.19 H (0.00-0.04) X 10*3/uL Neutrophils # 9.58 H (1.80-7.70) X 10*3/uL Monocytes # 1.27 H (0.20-1.00) X 10*3/uL NRBC/100 WBC Diff 0.47 H (0.00-0.01) X 10*3/uL BUN (9.0-27.0) mg/dL Creatinine (0.6-1.5) mg/dL Est GFR (CKD-EPI) (>=60) BUN/Creatinine Ratio (12.00-20.00) Ratio Glucose (70-110) mg/dL POC Glucose (mg/dL) 145 H 160 H (70-110) mg/dL Calcium (8.7-10.3) mg/dL AST (14-35) U/L ALT (10-49) U/L Total Protein (6.2-8.2) g/dL Albumin (3.8-4.9) g/dL Albumin/Globulin Ratio (1.60-3.17) Ratio Crossmatch 04/25/24 04/25/24 Range/Units 06:26 11:52 WBC (4.50-10.00) X 10*3/uL RBC (4.40-5.60) X 10*6/uL Hgb (13.0-17.0) g/dL Hct (39.6-50.0) % MCV (80.0-97.0) FL MCHC (32.0-37.0) g/dL RDW (11.5-14.5) % Immature Gran # (0.00-0.04) X 10*3/uL Neutrophils # (1.80-7.70) X 10*3/uL Monocytes # (0.20-1.00) X 10*3/uL NRBC/100 WBC Diff (0.00-0.01) X 10*3/uL BUN 78.8 H (9.0-27.0) mg/dL Creatinine 2.3 H (0.6-1.5) mg/dL Est GFR (CKD-EPI) 31 L (>=60) BUN/Creatinine Ratio 34.26 H (12.00-20.00) Ratio Glucose 150 H (70-110) mg/dL POC Glucose (mg/dL) 142 H (70-110) mg/dL Calcium 7.7 L (8.7-10.3) mg/dL AST 77 H (14-35) U/L ALT 69 H (10-49) U/L Total Protein 4.9 L (6.2-8.2) g/dL Albumin 2.9 L (3.8-4.9) g/dL Albumin/Globulin Ratio 1.45 L (1.60-3.17) Ratio Crossmatch Assessment and Plan (1) Cellulitis of right foot Current Visit: No Status: Acute Code(s): L03.115 - CELLULITIS OF RIGHT LOWER LIMB SNOMED Code(s): 03648756802713524 (2) Diabetic foot ulcer Current Visit: No Status: Acute Code(s): E11.621 - TYPE 2 DIABETES MELLITUS WITH FOOT ULCER; L97.509 - NON-PRESSURE CHRONIC ULCER OTH PRT UNSP FOOT W UNSP SEVERITY SNOMED Code(s): 038868526 Plan: 1patient presenting to the hospital mostly with generalized weakness low O2 sats possibly underlying cardiac etiology for the patient being managed by cardiology, patient also have a 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 2patient is afebrile, noticed to have slight worsening of the white count possibly reactive as the patient did have evidence of drop in the hemoglobin did have a EGD and colonoscopy with some polyps but no active source of bleeding currently on Unasyn to continue Dictation was produced using [employer] dictation software. please excuse any gram matical, word or spelling errors. Time with Patient: Less than 30
[2024-04-25] MEDS: SODIUM FERRIC GLUCONAT-SUCROSE 125 MG in SODIUM CHLORIDE 0.9% 100 ML IVPB SCH (13:50)
[2024-04-25] MEDS ORDERED: HYDROcodone/APAP 7.5-325MG 1 EACH TAB PEG/G-TUBE PRN (14:03)
[2024-04-25 18:06] LABS: Glucose,Whole Blood 148 mg/dL (70-110)
[2024-04-26 00:10] LABS: Glucose,Whole Blood 134 mg/dL (70-110)
[2024-04-26 04:55] LABS: Anisocytosis Moderate; Basophils # (A) 0.1 k/uL (0-0.2); Basophils % (A) 1 %; Eosinophils # (A) 0.3 k/uL (0-0.7); Eosinophils % (A) 3 %; HCT 24.6 % (39.0-53.0); Hypochromasia Marked; Lymphocytes # (A) 1.3 k/uL (1.0-4.8); Lymphocytes % (A) 12 %; MCH 31.8 pg (25.0-35.0); MCHC 32.7 g/dL (31.0-37.0); MCV 97.3 fL (80.0-100.0); Macrocytosis Slight; Mean Platelet Volume 8.9; Monocytes # (A) 0.9 k/uL (0-1.0); Monocytes % (A) 9 %; Neutrophils # (A) 7.6 k/uL (1.3-7.7); Neutrophils % (A) 73 %; Platelet Count 297 k/uL (150-450); Poikilocytosis Slight; RBC 2.52 m/uL (4.30-5.90); RDW 22.9 % (11.5-15.5); WBC 10.5 k/uL (3.8-10.6)
[2024-04-26 05:34] LABS: African American GFR (CKD) 39 (>60 ml/min/1.73 sqM); Anion Gap 6 mmol/L; Blood Urea Nitrogen 66 mg/dL (9-20); Calcium 8.1 mg/dL (8.4-10.2); Carbon Dioxide 28 mmol/L (22-30); Chloride 106 mmol/L (98-107); Glucose 99 mg/dL (74-99); Non-African American GFR(CKD) 34 (>60 ml/min/1.73 sqM); Potassium 4.2 mmol/L (3.5-5.1); Sodium 140 mmol/L (137-145)
[2024-04-26 05:50] LABS: Glucose,Whole Blood 120 mg/dL (70-110)
--- NOTE | 2024-04-26 07:38 | P.PN ---
Subjective Progress Note Date: 04/26/24 Principal diagnosis: Anemia. This is a 63-year-old white male with history of multiple medical problems including coronary artery disease, chronic atrial fibrillation, peripheral vessel occlusive disease, severe pulmonary hypertension, chronic obstructive pulmonary disease, patient normally sees Dr. Dillard on outpatient basis. Patient was never seen by a master motorcycle technician. Admitted this time with few days history of increased shortness of breath, and according to the his O2 saturation was down in the 60s. Patient was brought into the ER, chest x-ray showed evidence of pulmonary edema, VQ scan negative for pulmonary embolism, patient was admitted and this consult was initiated. Patient is not a great historian, most of the information was obtained from his , apparently the patient had history of CVA in the past, and he had a previous PEG tube placement Labs on admission showed relatively normal CBC, no leukocytosis, D-dimer was a bit elevated at 2.10 and renal profile was abnormal with BUN of 43 and creatinine 2.01 however BNP level was 12,300 and troponin was 0.043. Since admission, the patient received 1 dose of Lasix, and he is at least 1.5 L negative fluid balance The patient is seen today April 14, 2024 in follow-up on the selective care unit. He is currently sitting up at the bedside. Awake and alert in no acute distress. Breathing a bit easier today compared to yesterday. Currently maintaining good O2 saturations in the upper 90s on 3 L/min per nasal cannula. He is afebrile. Hemodynamically stable. Echocardiogram reveals impaired left ventricular systolic function with an ejection fraction of 35 to 40%. Severe pulmonary hypertension. Moderate to severely dilated left atrium. Right first toe culture is pending. Currently on Unasyn. Glucose 125. Being nourished with Glucerna at 51 MLS per hour via his PEG tube. Anticoagulated with Eliquis. Remains on diuretics. Making adequate urine. The patient is seen today April 15, 2024 in follow-up on the selective care unit. He is awake and alert in no acute distress. Maintaining O2 saturations in the 90s on 3 L/min per nasal cannula. Hemodynamically stable. White count 8.4. Hemoglobin 11.2. Platelets 321. Sodium 143. Potassium 4.9. Bicarb 29. BUN 45. Creatinine 1.99. Glucose 126. He is continued on Unasyn. Anticoagulated with Eliquis. Remains on bronchodilators. Remains on oral diuretics. Continued on Glucerna via his PEG tube. Barium swallow is pending so the patient can continue on tube feedings in the outpatient setting Patient was evaluated today on 04/16/2024, patient is doing well, comfortable, not in any distress, on 3 L nasal cannula with O2 sats of 96%. WBC is 8.5 hemoglobin 10.5 electrolytes are relatively normal with potassium of 5.2 BUN is 48 creatinine 1.94, steadily improving since admission patient had a successful swallow evaluation study that came back unremarkable. The patient was seen today April 17, 2024 in follow-up on the selective care unit. He is currently resting comfortably in bed. Awake and alert in no acute distress. Maintaining O2 saturations in the 90s on 2 L/min per nasal cannula. Right foot culture results revealing no growth. White count 9.6. Hemoglobin 10.9. Platelets 305. Sodium 145. Potassium 5.4. Bicarb 32. BUN 56. Creatinine 1.99. Glucose 133. He remains on bronchodilators. Anticoagulated with Eliquis. Antibiotics in the form of Unasyn. Remains on Glucerna tube feedings. The patient is seen today April 18, 2024 in follow-up on the regular medical floor. He is currently sitting up at the bedside. Awake and alert in no acute distress. Maintaining O2 saturations in the 90s on 2 L/min per nasal cannula. He has been afebrile. Hemodynamically stable. He remains on Glucerna at 51 mL/h which is goal. He remains on antibiotics in the form of Unasyn. His right foot dressing is dry and intact. Glucose 140. He remains on bronchodilators. Oral diuretics. Anticoagulated with Eliquis. The patient is seen today April 19, 2024 in follow-up on the regular medical floor. He is currently sitting up in bed. Awake and alert in no acute distress. He is maintaining good O2 saturations in the 90s on 3 L/min per nasal cannula. He remains on antibiotics in the form of Unasyn. He is being nourished with Glucerna at 51 mL/h which is his goal. He is continued on bronchodilators. Anticoagulated with Eliquis. Normal saline at 100 MLS per hour. White count 10.8. Hemoglobin 9.2. Platelets 307. Sodium 147. Potassium 6.3. BUN 84. Creatinine 2.3. Glucose 105. The patient is seen today April 20, 2024 in follow-up on the regular medical floor. He is currently sitting up at the bedside. Awake and alert in no acute distress. Maintaining good O2 saturations in the 90s on 4 L/min per nasal cannula. He remains on Glucerna at 51 mL/h which is goal. 0.45% normal saline at 75 MLS per hour. Potassium 5.6. Bicarb 30. BUN 90. Creatinine 2.4. Glucose 120. He received Lokelma yesterday for his hyperkalemia. Right foot cultures revealed no growth. Sputum culture revealed Jenae. He continues on Unasyn per ID service. He remains on bronchodilators. Anticoagulated with Eliquis. Remains on oral diuretics. The patient is seen today April 21, 2024 in follow-up on the regular medical floor. He is awake and alert in no acute distress. Sitting up at the bedside. Denies any worsening shortness of breath, cough or congestion. Continues to maintain good O2 saturations in the upper 90s on 4 L/min per nasal cannula. He is afebrile. Hemodynamically stable. White count 11.0. Hemoglobin 6.8. Platelets 324. Sodium 143. Potassium 5.9. Bicarb 29. BUN 98. Creatinine 2.4. Glucose 127. Nephrology is following. He remains on bronchodilators and Unasyn. The patient is seen today April 22, 2024 in follow-up on the regular medical floor. He is currently sitting up at the bedside. Awake and alert in no acute distress. He is receiving 2 units of packed red blood cells for hemoglobin of 6.4 today. White count 10.7. Platelets 308. Sodium 141. Potassium 5.8. Bicarb 28. BUN 107. Creatinine 2.7. Glucose 150. He remains on Unasyn. Continued on bronchodilators. Remains on Lokelma for his hyperkalemia. Receiving folate acid. The patient is seen today April 23, 2024 in follow-up on the regular medical floor. He is awake and alert in no acute distress. Maintaining O2 saturations in the 90s on 2 L/min per nasal cannula. Receiving normal saline at 20 MLS per hour. Continued on Nepro PEG tube feedings at 43 mL/h which is goal. He is status post 2 units of packed red blood cells. Hemoglobin 6.0 today. To receive 1 unit of packed red blood cells today unit. GI service is following. White count 13.7. Platelets 300. Sodium 141. Potassium 5.0. Bicarb 30. BUN 109. Creatinine 2.5. Glucose 146. He remains on Unasyn. Remains on Lokelma. The patient is seen today 04/24/2020 for follow-up on the regular medical floor. He is currently resting in bed. He has been having issues with anemia and his hemoglobin was 6.3 again today. He is receiving his fourth unit of packed red blood cells. He has received 2-1/2 L of fluid resuscitation. He is awaiting EGD/colonoscopy today. He remains on Unasyn. Continued on bronchodilators. Remains on Lokelma. white count 13.9. Platelets 323. Sodium 145. Potassium 5.3. Bicarb 27. BUN 89. Creatinine 2.3. Glucose 129. Progress note dated April 25, 2024. 63-year-old male seen on the general medical floor. He is in room 475. The patient is currently resting in bed. He denies any specific complaints, although he appears to be a bit weak. He had blood work today showing a white count of 12.5, hemoglobin 6.7, hematocrit 21.4, and a platelet count of 290,000. Sodium 142, potassium 4.8, chlorides 106, CO2 26, BUN 79, creatinine 2.3. Glucose was 142. AST 77 with an ALT of 69. Sputum samples are essentially negative although there is some Jenae albicans on the most recent sputum. No recent chest x-ray. Progress note dated April 26, 2024. 63-year-old male seen today in room 475. The patient continues on oxygen by nasal cannula at 4 L, saline at 20 cc an hour, and Nepro tube feedings at 43 cc an hour. The patient's hemoglobin this morning was 8. He has received a total of 5 units of packed red blood cells, while here in the hospital. Clinically, he looks better today. Much more awake and alert. Has no complaints. Current white count 10.5, hemoglobin 8, hematocrit 24.6, platelet count 297,000. Sodium 140, potassium 4.2, chlorides 106, CO2 28, BUN 66, and creatinine 2.03. Glucose is 120. Calcium is 8.1. Cultures are negative. No recent chest x-ray. Objective - Vital Signs Vital signs: Vital Signs Temp 98 F 04/26/24 01:10 Pulse 102 H 04/26/24 01:10 Resp 17 04/26/24 01:10 BP 91/53 04/26/24 01:10 Pulse Ox 92 L 04/26/24 01:10 FiO2 Intake & Output 04/25/24 04/26/24 04/26/24 18:59 06:59 18:59 Intake Total 310 Output Total 250 350 Balance 60 -350 Weight 95.5 kg Intake: Blood Product 310 Rc As-1 Unit 310 [id number] Output: Urine 250 350 Stool 0 Other: Voiding Method Bedside Commode # Voids 1 - Exam No acute distress, oriented 3. 4 L saturation is 96%. 3 L saturations at 100%. 2 L saturation is documented at 92%. HEENT examination is grossly unremarkable. Mucous membranes are moist. No oral lesions. Neck supple. Full range of motion. No adenopathy thyromegaly or neck vein distention. Cardiovascular examination reveals regular rhythm rate. S1-S2 normal. No S3 or S4. No discernible murmur noted. Heart sounds are distant. Heart rate 89 bpm. Lungs reveal mostly clear breath sounds. Scattered rhonchi. No wheezes or crackles. 4 L saturation is 96%. Abdomen soft bowel sounds are heard. No masses or tenderness. Extremities are intact. No cyanosis clubbing or edema. Skin is without rash or lesion. Neurologic examination is brief but nonfocal. - Labs CBC & Chem 7: 04/26/24 04:30 04/26/24 04:30 Labs: Abnormal Lab Results - Last 24 Hours (Table) 04/25/24 04/25/24 04/25/24 Range/Units 06:26 06:26 10:50 WBC 12.50 H (4.50-10.00) X 10*3/uL RBC 2.13 L (4.40-5.60) X 10*6/uL Hgb 6.7 A* (13.0-17.0) g/dL Hct 21.4 L (39.6-50.0) % MCV 100.5 H (80.0-97.0) FL MCHC 31.3 L (32.0-37.0) g/dL RDW 21.9 H (11.5-14.5) % Immature Gran # 0.19 H (0.00-0.04) X 10*3/uL Neutrophils # 9.58 H (1.80-7.70) X 10*3/uL Monocytes # 1.27 H (0.20-1.00) X 10*3/uL NRBC/100 WBC Diff 0.47 H (0.00-0.01) X 10*3/uL BUN 78.8 H (9.0-27.0) mg/dL Creatinine 2.3 H (0.6-1.5) mg/dL Est GFR (CKD-EPI) 31 L (>=60) BUN/Creatinine Ratio 34.26 H (12.00-20.00) Ratio Glucose 150 H (70-110) mg/dL POC Glucose (mg/dL) (70-110) mg/dL Calcium 7.7 L (8.7-10.3) mg/dL AST 77 H (14-35) U/L ALT 69 H (10-49) U/L Total Protein 4.9 L (6.2-8.2) g/dL Albumin 2.9 L (3.8-4.9) g/dL Albumin/Globulin Ratio 1.45 L (1.60-3.17) Ratio Crossmatch See Detail 04/25/24 04/25/24 04/26/24 Range/Units 11:52 18:05 00:09 WBC (4.50-10.00) X 10*3/uL RBC (4.40-5.60) X 10*6/uL Hgb (13.0-17.0) g/dL Hct (39.6-50.0) % MCV (80.0-97.0) FL MCHC (32.0-37.0) g/dL RDW (11.5-14.5) % Immature Gran # (0.00-0.04) X 10*3/uL Neutrophils # (1.80-7.70) X 10*3/uL Monocytes # (0.20-1.00) X 10*3/uL NRBC/100 WBC Diff (0.00-0.01) X 10*3/uL BUN (9.0-27.0) mg/dL Creatinine (0.6-1.5) mg/dL Est GFR (CKD-EPI) (>=60) BUN/Creatinine Ratio (12.00-20.00) Ratio Glucose (70-110) mg/dL POC Glucose (mg/dL) 142 H 148 H 134 H (70-110) mg/dL Calcium (8.7-10.3) mg/dL AST (14-35) U/L ALT (10-49) U/L Total Protein (6.2-8.2) g/dL Albumin (3.8-4.9) g/dL Albumin/Globulin Ratio (1.60-3.17) Ratio Crossmatch 04/26/24 04/26/24 04/26/24 Range/Units 04:30 04:30 05:45 WBC (4.50-10.00) X 10*3/uL RBC 2.52 L (4.40-5.60) X 10*6/uL Hgb 8.0 L D (13.0-17.0) g/dL Hct 24.6 L (39.6-50.0) % MCV (80.0-97.0) FL MCHC (32.0-37.0) g/dL RDW 22.9 H (11.5-14.5) % Immature Gran # (0.00-0.04) X 10*3/uL Neutrophils # (1.80-7.70) X 10*3/uL Monocytes # (0.20-1.00) X 10*3/uL NRBC/100 WBC Diff (0.00-0.01) X 10*3/uL BUN 66 H (9.0-27.0) mg/dL Creatinine 2.03 H (0.6-1.5) mg/dL Est GFR (CKD-EPI) (>=60) BUN/Creatinine Ratio (12.00-20.00) Ratio Glucose (70-110) mg/dL POC Glucose (mg/dL) 120 H (70-110) mg/dL Calcium 8.1 L (8.7-10.3) mg/dL AST (14-35) U/L ALT (10-49) U/L Total Protein (6.2-8.2) g/dL Albumin (3.8-4.9) g/dL Albumin/Globulin Ratio (1.60-3.17) Ratio Crossmatch Assessment and Plan Assessment: Acute hypoxic respiratory failure secondary to an acute exacerbation of systolic congestive heart failure. 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 Acute on chronic stage IV kidney disease. Anemia suspect secondary to above, S/P 5 units of blood. Hypotension secondary to anemia, received 2-1/2 L of fluid resuscitation, midodrine added. Hyperkalemia resolved. Hypernatremia, resolved. History of peripheral vessel occlusive disease and previous stenting of right SFA and right popliteal artery. Severe pulmonary hypertension. Paroxysmal atrial fibrillation, anticoagulated with Eliquis. 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 Type 2 diabetes mellitus. Chronic and ongoing tobacco dependence. Plan: Plan dated April 25, 2024. The patient is seen in room 475. The patient is currently on 4 L. Saturations are 96%. The patient will likely get his fifth unit of blood today. His hemoglobin is below 7. Labs, x-rays, medications are reviewed. The patient's overall prognosis remains guarded. We will continue to follow the patient, make recommendations along the way. His blood pressure has been much more stable, with fluid resuscitation, and blood. Plan dated April 26, 2024. Clinically, the patient looks about as good as he is look since I seen him for the last 6 to 7 days. His vital signs are stable. He continues on oxygen at 4 L. Saturations are 96%. He continues on tube feedings with Nepro. Labs, x- rays, medications are reviewed. He has received a total of 5 units of packed red blood cells. The patient's hemoglobin this morning was 8. We will continue to follow make recommendations along the way. Time with Patient: Less than 30
[2024-04-26 09:23] LABS: Reticulocyte % 7.74 % (0.10-1.80)
--- NOTE | 2024-04-26 09:48 | P.PN ---
Subjective Progress Note Date: 04/26/24 Everett Juárez, is a 63-year-old male who presented to [facility] emergency room with a chief complaint of worsening shortness of breath and generalized weakness, patient was recently admitted to [facility] with peripheral vascular disease right foot osteomyelitis and underwent stenting of the right SFA by Dr. Dillard, he has a previous history of right great toe amputation. He was evaluated in the emergency room vital examination on presentation revealed a temperature of 98.9 pulse 110 respiration 18 blood pressure 114/72 pulse ox 96% on room air Laboratory data reveals a white blood count of 8.7 hemoglobin 11.4 platelet count 283 sodium 139 potassium 4.9 chloride 110 CO2 23 BUN 41 creatinine 2.01 D- dimer was elevated at 2.10, troponin level was elevated at 0.043 Testing in the emergency room revealed chest x-ray done in the emergency room revealed cardiomegaly and mild pulmonary vascular congestion suggestive of congestive heart failure, VQ scan showed no evidence for pulmonary embolism, EKG revealed atrial fibrillation with moderate T wave abnormalities suggestive of lateral ischemia. Patient was admitted to medical floor for further evaluation and treatment Past medical history is significant for history of atrial fibrillation, history of peripheral arterial disease with previous history of right great toe amputation, history of COPD, history of diabetes mellitus type 2, history of hyperkalemia, history of chronic kidney disease. On review of systems patient is alert and oriented x 3 in no apparent distress, he is complaining of generalized weakness, complaining of shortness of breath, which is worse with activity, and complaining of right foot pain, otherwise he denies any complaints, there is no fever or chills no headache or dizziness no chest pain, no cough no nausea or vomiting no abdominal pain no diarrhea and no urinary symptoms On 04/14/2024 patient is alert and oriented 3.Patient remains on IV Unasyn and IV Lasix. 2-D echo completed showing an EF of 35-40%. Current vital signs temp 98.3, heart 81, respiratory rate 18, blood pressure 135/67 with a pulse ox of 100% on 3 L. Patient reports improvement with shortness of breath. Patient denies nausea vomiting or diarrhea. Patient denies any urinary burning or frequency On 04/15/2024 Patient is alert and oriented 3. Patient remains on IV Unasyn. Patient has been transitioned to by mouth Lasix.Current vital signs temp 97.1, heart rate 98, respiratory rate 18, blood pressure 121/79 with pulse ox 96% on 3 L. Patient denies chest pain or shortness breath. Patient denies nausea vomiting or diarrhea. Patient denies any urinary burning or frequency. On 04/16/2024 he is alert and oriented x 3 in no apparent distress he reports improvement in his shortness of breath there is no fever or chills no headache or dizziness no chest pain no cough no nausea or vomiting no abdominal pain no diarrhea and no urinary symptoms. On 04/17/2024 patient is alert and oriented x 3. Current vital signs Temp 98.1, heart rate 100, respiratory rate 16, blood pressure 153/81 with a pulse ox of 97% on 2 L. Patient remains on IV Unasyn. Awaiting final antibiotic recommenda tions per ID. Patient denies chest pain or shortness of breath. Patient denies nausea vomiting or diarrhea. Patient denies any urinary burning or frequency. On 04/18/2024 patient was seen and examined on the medical floor he is alert and oriented x 3 in no apparent distress there is no fever or chills no headache or dizziness no chest pain no shortness of breath no cough no nausea or vomiting no abdominal pain no diarrhea no urinary symptoms, he is still maintained on oxygen supplements, patient need to be assessed for need for home oxygen, he is also maintained on tube feeding, community case manager is working on arrangement for tube feeding at home. Otherwise continue with current management will recheck in a.m.. On 04/19/2024 patient is alert and oriented x 3. Patient is maintained on 3 L n roberth cannula. Patient also maintained on IV Unasyn. Awaiting final IV recommendations from infectious disease. Current vital signs Temp 98.2, heart rate 82, blood pressure 116/70 with a pulse ox of 97% on 3 L patient denies chest pain or shortness of breath. Patient denies nausea vomiting or diarrhea. Patient denies any urinary burning or frequency On 04/20/2024 patient was seen and examined on the medical floor he is alert and oriented x 3 in no apparent distress, there is no fever or chills no headache or dizziness no chest pain no shortness of breath no cough no nausea or vomiting no abdominal pain no diarrhea no urinary symptoms, patient is still having difficulty with hyperkalemia, he is maintained on IV fluids and [facility] nephrology are following, will recheck labs in a.m. On 04/21/2024 patient is alert and oriented x 3. Potassium remains elevated at 5.9 awaiting further recommendations from nephrology standpoint. Patient denies chest pain or shortness of breath. Patient denies nausea vomiting or diarrhea. Patient denies any urinary burning or frequency On 04/22/2024 patient is alert and oriented x 3. Patient received 1 unit PRBCs for hemoglobin of 6.8 yesterday. GI services were consulted stool for occult blood ordered. Nephrology service is following for elevated potassium level. At this time patient denies chest pain or shortness of breath. Patient denies nausea vomiting or diarrhea. Patient denies any urinary burning frequency. On 04/23/2024 patient was seen and examined on the medical floor he is alert and oriented x 3 in no apparent distress, his hemoglobin today is again 6.01 unit of red blood cell transfusion was ordered, he was reevaluated by gastroenterology and plans are for EGD and colonoscopy tomorrow, otherwise he denies any complaints there is no fever or chills no headache or dizziness no chest pain no shortness of breath no cough no nausea or vomiting no abdominal pain no diarrhea no urinary symptoms On 04/24/2024 patient is alert and oriented 3. Plans for EGD and colonoscopy today with GI services.Patient had episodes of hypotension throughout night received IV bolus. Continue to transfuse patient for hemoglobin less than 7. Patient remains on IV Unasyn. This time patient denies chest pain or shortness breath. Patient denies nausea vomiting or diarrhea. Patient denies any urinary burning or frequency. On 04/25/2024 patient was seen and examined on the medical floor he is alert and oriented x 3 in no apparent distress there is no fever or chills no headache or dizziness no chest pain no shortness of breath no cough no nausea or vomiting no abdominal pain no diarrhea no urinary symptoms, hemoglobin is down again to 6.7 patient will be given 1 unit of red blood cell transfusion, EGD and colonoscopy results done yesterday were reviewed, at this time will consult Dr. Jackson regarding recurrent pneumonia requiring multiple red blood cell transfusion, continue with tube feeding at this time. On 04/26/2024 patient is alert and oriented x 3. Hemoglobin today 8.0. Awaiting oncology input. Patient denies chest pain or shortness of breath. Patient denies nausea vomiting or diarrhea. Patient denies any urinary burning or frequency. Current vital signs Temp 97.7, heart rate 91, respiratory rate 16, blood pressure 118/60 with pulse ox of 98% on 4 L Objective - Vital Signs Vital signs: Vital Signs Temp 97.7 F 04/26/24 06:46 Pulse 102 H 04/26/24 08:01 Resp 16 04/26/24 06:46 BP 118/60 04/26/24 08:01 Pulse Ox 98 04/26/24 08:01 FiO2 Intake & Output 04/25/24 04/26/24 04/26/24 18:59 06:59 18:59 Intake Total 310 Output Total 250 350 250 Balance 60 -350 -250 Weight 95.5 kg Intake: Blood Product 310 Rc As-1 Unit 310 [id number] Output: Urine 250 350 250 Stool 0 Other: Voiding Method Bedside Commode # Voids 1 - Exam In general patient is alert and oriented x 3 in no distress HEENT head normocephalic and atraumatic Neck is supple no JVD no goiter no lymphadenopathy no carotid bruit Chest examination reveals a scattered crackles in both lung [place] no wheezing Cardiac exam reveals irregular heart sounds S1 and S2 no gallops no murmurs Abdomen is soft nontender no organomegaly with normal bowel sounds Extremity exam reveals no edema no cyanosis or clubbing, the right great toe is amputated with a large ulcer at the base of the amputated right great toe with purulent discharge Neurological examination reveals no gross focal deficits - Labs CBC & Chem 7: 04/26/24 04:30 04/26/24 04:30 Labs: Abnormal Lab Results - Last 24 Hours (Table) 04/25/24 04/25/24 04/25/24 Range/Units 06:26 06:26 10:50 WBC 12.50 H (4.50-10.00) X 10*3/uL RBC 2.13 L (4.40-5.60) X 10*6/uL Hgb 6.7 A* (13.0-17.0) g/dL Hct 21.4 L (39.6-50.0) % MCV 100.5 H (80.0-97.0) FL MCHC 31.3 L (32.0-37.0) g/dL RDW 21.9 H (11.5-14.5) % Immature Gran # 0.19 H (0.00-0.04) X 10*3/uL Neutrophils # 9.58 H (1.80-7.70) X 10*3/uL Monocytes # 1.27 H (0.20-1.00) X 10*3/uL NRBC/100 WBC Diff 0.47 H (0.00-0.01) X 10*3/uL Retic Count (0.10-1.80) % BUN 78.8 H (9.0-27.0) mg/dL Creatinine 2.3 H (0.6-1.5) mg/dL Est GFR (CKD-EPI) 31 L (>=60) BUN/Creatinine Ratio 34.26 H (12.00-20.00) Ratio Glucose 150 H (70-110) mg/dL POC Glucose (mg/dL) (70-110) mg/dL Calcium 7.7 L (8.7-10.3) mg/dL AST 77 H (14-35) U/L ALT 69 H (10-49) U/L Total Protein 4.9 L (6.2-8.2) g/dL Albumin 2.9 L (3.8-4.9) g/dL Albumin/Globulin Ratio 1.45 L (1.60-3.17) Ratio Crossmatch See Detail 04/25/24 04/25/24 04/26/24 Range/Units 11:52 18:05 00:09 WBC (4.50-10.00) X 10*3/uL RBC (4.40-5.60) X 10*6/uL Hgb (13.0-17.0) g/dL Hct (39.6-50.0) % MCV (80.0-97.0) FL MCHC (32.0-37.0) g/dL RDW (11.5-14.5) % Immature Gran # (0.00-0.04) X 10*3/uL Neutrophils # (1.80-7.70) X 10*3/uL Monocytes # (0.20-1.00) X 10*3/uL NRBC/100 WBC Diff (0.00-0.01) X 10*3/uL Retic Count (0.10-1.80) % BUN (9.0-27.0) mg/dL Creatinine (0.6-1.5) mg/dL Est GFR (CKD-EPI) (>=60) BUN/Creatinine Ratio (12.00-20.00) Ratio Glucose (70-110) mg/dL POC Glucose (mg/dL) 142 H 148 H 134 H (70-110) mg/dL Calcium (8.7-10.3) mg/dL AST (14-35) U/L ALT (10-49) U/L Total Protein (6.2-8.2) g/dL Albumin (3.8-4.9) g/dL Albumin/Globulin Ratio (1.60-3.17) Ratio Crossmatch 04/26/24 04/26/24 04/26/24 Range/Units 04:30 04:30 04:30 WBC (4.50-10.00) X 10*3/uL RBC 2.52 L (4.40-5.60) X 10*6/uL Hgb 8.0 L D (13.0-17.0) g/dL Hct 24.6 L (39.6-50.0) % MCV (80.0-97.0) FL MCHC (32.0-37.0) g/dL RDW 22.9 H (11.5-14.5) % Immature Gran # (0.00-0.04) X 10*3/uL Neutrophils # (1.80-7.70) X 10*3/uL Monocytes # (0.20-1.00) X 10*3/uL NRBC/100 WBC Diff (0.00-0.01) X 10*3/uL Retic Count 7.74 H (0.10-1.80) % BUN 66 H (9.0-27.0) mg/dL Creatinine 2.03 H (0.6-1.5) mg/dL Est GFR (CKD-EPI) (>=60) BUN/Creatinine Ratio (12.00-20.00) Ratio Glucose (70-110) mg/dL POC Glucose (mg/dL) (70-110) mg/dL Calcium 8.1 L (8.7-10.3) mg/dL AST (14-35) U/L ALT (10-49) U/L Total Protein (6.2-8.2) g/dL Albumin (3.8-4.9) g/dL Albumin/Globulin Ratio (1.60-3.17) Ratio Crossmatch 04/26/24 Range/Units 05:45 WBC (4.50-10.00) X 10*3/uL RBC (4.40-5.60) X 10*6/uL Hgb (13.0-17.0) g/dL Hct (39.6-50.0) % MCV (80.0-97.0) FL MCHC (32.0-37.0) g/dL RDW (11.5-14.5) % Immature Gran # (0.00-0.04) X 10*3/uL Neutrophils # (1.80-7.70) X 10*3/uL Monocytes # (0.20-1.00) X 10*3/uL NRBC/100 WBC Diff (0.00-0.01) X 10*3/uL Retic Count (0.10-1.80) % BUN (9.0-27.0) mg/dL Creatinine (0.6-1.5) mg/dL Est GFR (CKD-EPI) (>=60) BUN/Creatinine Ratio (12.00-20.00) Ratio Glucose (70-110) mg/dL POC Glucose (mg/dL) 120 H (70-110) mg/dL Calcium (8.7-10.3) mg/dL AST (14-35) U/L ALT (10-49) U/L Total Protein (6.2-8.2) g/dL Albumin (3.8-4.9) g/dL Albumin/Globulin Ratio (1.60-3.17) Ratio Crossmatch Assessment and Plan Plan: Worsening shortness of breath, multifactorial, possibly related to acute congestive heart failure, and underlying COPD Atrial fibrillation, with rapid ventricular response on presentation, heart rate was 110 New onset cardiomyopathy. Anemia status post EGD and colonoscopy on 04/24/2024 Generalized weakness Large ulcer at the base of the right great toe with purulent discharge, patient was maintained on oral Augmentin as outpatient, infectious disease consultation requested Underlying history of peripheral arterial disease, with recent history of angioplasty and stent placement to the right lower extremity on 04/08/2024 Underlying history of diabetes mellitus Underlying history of chronic obstructive pulmonary disease Underlying history of chronic kidney disease Underlying history of hyperkalemia Underlying history of chronic continued tobacco abuse At this time patient is admitted to telemetry floor Home medications reviewed and reordered Consultation for cardiology and pulmonary were requested in the emergency room For DVT prophylaxis, patient is maintained on scds (eliquis on hold due to anemia) Will add infectious disease consultation in regard to base of right great toe ulcer Will follow closely
--- NOTE | 2024-04-26 10:53 | P.PN ---
Subjective Progress Note Date: 04/26/24 Patient is seen in follow-up for acute kidney injury on chronic kidney disease. Renal function little better. Hemoglobin improved today. Renal function back at baseline. No new complaints. Vital signs are stable. General: No acute distress. HEENT: Head exam is unremarkable. LUNGS: No audible rhonchi or wheezes. HEART: Rate and Rhythm are regular. ABDOMEN: Obese, nontender. PEG tube noted. EXTREMITITES: No edema. Objective - Vital Signs Vital signs: Vital Signs Temp 97.7 F 04/26/24 06:46 Pulse 102 H 04/26/24 08:01 Resp 16 04/26/24 06:46 BP 118/60 04/26/24 08:01 Pulse Ox 98 04/26/24 08:01 FiO2 Intake & Output 04/25/24 04/26/24 04/26/24 18:59 06:59 18:59 Intake Total 310 Output Total 250 350 250 Balance 60 -350 -250 Weight 95.5 kg Intake: Blood Product 310 Rc As-1 Unit 310 [id number] Output: Urine 250 350 250 Stool 0 Other: Voiding Method Bedside Commode # Voids 1 - Labs CBC & Chem 7: 04/26/24 04:30 04/26/24 04:30 Labs: Abnormal Lab Results - Last 24 Hours (Table) 04/25/24 04/25/24 04/25/24 Range/Units 10:50 11:52 18:05 RBC (4.30-5.90) m/uL Hgb (13.0-17.5) gm/dL Hct (39.0-53.0) % RDW (11.5-15.5) % Retic Count (0.10-1.80) % BUN (9-20) mg/dL Creatinine (0.66-1.25) mg/dL POC Glucose (mg/dL) 142 H 148 H (70-110) mg/dL Calcium (8.4-10.2) mg/dL Crossmatch See Detail 04/26/24 04/26/24 04/26/24 Range/Units 00:09 04:30 04:30 RBC 2.52 L (4.30-5.90) m/uL Hgb 8.0 L D (13.0-17.5) gm/dL Hct 24.6 L (39.0-53.0) % RDW 22.9 H (11.5-15.5) % Retic Count 7.74 H (0.10-1.80) % BUN (9-20) mg/dL Creatinine (0.66-1.25) mg/dL POC Glucose (mg/dL) 134 H (70-110) mg/dL Calcium (8.4-10.2) mg/dL Crossmatch 04/26/24 04/26/24 Range/Units 04:30 05:45 RBC (4.30-5.90) m/uL Hgb (13.0-17.5) gm/dL Hct (39.0-53.0) % RDW (11.5-15.5) % Retic Count (0.10-1.80) % BUN 66 H (9-20) mg/dL Creatinine 2.03 H (0.66-1.25) mg/dL POC Glucose (mg/dL) 120 H (70-110) mg/dL Calcium 8.1 L (8.4-10.2) mg/dL Crossmatch Assessment and Plan Assessment: 1. Acute kidney injury secondary to ATN secondary to acute blood loss anemia. Creatinine peaked at 2.7 this admission and stable at 2.0 today. Elevated BUN secondary to chronic kidney disease as well as GI bleed. No hydronephrosis noted on kidney ultrasound. UA fairly benign. 2. Chronic kidney disease stage IV baseline creatinine 1.8-2.0 secondary to solitary right kidney. History of left nephrectomy. 3. Chronic systolic CHF ejection fraction of 35 to 40% with severe pulmonary hypertension. 4. Diabetes mellitus. 5. Hypernatremia from lack of oral water intake. Improved. 6. Hyperkalemia secondary to acute kidney injury and GI bleed. Resolved. 7. Peripheral vascular disease. 8. Acute blood loss anemia with hemoglobin. No active bleeding. Status post blood transfusions and IV DDAVP. Also on Aranesp. GI following. Plan: Avoid nephrotoxins. Iron transfusion ordered. Remains on tube feeds
[2024-04-26 11:58] LABS: Glucose,Whole Blood 146 mg/dL (70-110)
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
[2024-04-26 17:40] LABS: Glucose,Whole Blood 127 mg/dL (70-110)
--- NOTE | 2024-04-26 20:47 | P.PN ---
Subjective Progress Note Date: 04/26/24 Principal diagnosis: Reason for follow-up is right foot wound and cellulitis Patient is a 63-year-old male with a past medical history significant for diabetes mellitus hypertension hyperlipidemia pneumonia CVA TIA COPD patient did have a right big toe amputation done by and was recently admitted to the hospital concerning for pain to the right foot and cold feeling patient has been diagnosed with PAD and is s/p peripheral intervention by interventional cardiology with angioplasty of SFA and right popliteal arteries however unsuccessful angioplasty of the right anterior tibial artery patient presented to hospital with weakness hypoxemia. On today's evaluation that is 04/26/2024,the patient denies any fever or any chills, patient is breathing comfortably on 3 L current oxygen the patient denies chest pain shortness of breath and no significant cough, patient denies abdominal pain, no nausea vomiting or diarrhea. No pain to the right foot wound . Patient white count is 10.5, creatinine 2.03 Objective - Vital Signs Vital signs: Vital Signs Temp 97.7 F 04/26/24 06:46 Pulse 102 H 04/26/24 08:01 Resp 16 04/26/24 06:46 BP 118/60 04/26/24 08:01 Pulse Ox 98 04/26/24 08:01 FiO2 Intake & Output 04/25/24 04/26/24 04/26/24 18:59 06:59 18:59 Intake Total 310 Output Total 250 350 250 Balance 60 -350 -250 Weight 95.5 kg Intake: Blood Product 310 Rc As-1 Unit 310 [id number] Output: Urine 250 350 250 Stool 0 Other: Voiding Method Bedside Commode # Voids 1 - Exam GENERAL DESCRIPTION: Middle-age male lying in bed in no distress RESPIRATORY SYSTEM: Unlabored breathing , decreased breath sounds at bases HEART: S1 S2 regular rate and rhythm , ABDOMEN: Soft , no tenderness EXTREMITIES: Right foot wound base with no significant slough tissue surrounding redness - Labs CBC & Chem 7: 04/26/24 04:30 04/26/24 04:30 Labs: Abnormal Lab Results - Last 24 Hours (Table) 04/25/24 04/25/24 04/25/24 Range/Units 06:26 10:50 11:52 RBC (4.30-5.90) m/uL Hgb (13.0-17.5) gm/dL Hct (39.0-53.0) % RDW (11.5-15.5) % Retic Count (0.10-1.80) % BUN 78.8 H (9.0-27.0) mg/dL Creatinine 2.3 H (0.6-1.5) mg/dL Est GFR (CKD-EPI) 31 L (>=60) BUN/Creatinine Ratio 34.26 H (12.00-20.00) Ratio Glucose 150 H (70-110) mg/dL POC Glucose (mg/dL) 142 H (70-110) mg/dL Calcium 7.7 L (8.7-10.3) mg/dL AST 77 H (14-35) U/L ALT 69 H (10-49) U/L Total Protein 4.9 L (6.2-8.2) g/dL Albumin 2.9 L (3.8-4.9) g/dL Albumin/Globulin Ratio 1.45 L (1.60-3.17) Ratio Crossmatch See Detail 04/25/24 04/26/24 04/26/24 Range/Units 18:05 00:09 04:30 RBC (4.30-5.90) m/uL Hgb (13.0-17.5) gm/dL Hct (39.0-53.0) % RDW (11.5-15.5) % Retic Count 7.74 H (0.10-1.80) % BUN (9.0-27.0) mg/dL Creatinine (0.6-1.5) mg/dL Est GFR (CKD-EPI) (>=60) BUN/Creatinine Ratio (12.00-20.00) Ratio Glucose (70-110) mg/dL POC Glucose (mg/dL) 148 H 134 H (70-110) mg/dL Calcium (8.7-10.3) mg/dL AST (14-35) U/L ALT (10-49) U/L Total Protein (6.2-8.2) g/dL Albumin (3.8-4.9) g/dL Albumin/Globulin Ratio (1.60-3.17) Ratio Crossmatch 04/26/24 04/26/24 04/26/24 Range/Units 04:30 04:30 05:45 RBC 2.52 L (4.30-5.90) m/uL Hgb 8.0 L D (13.0-17.5) gm/dL Hct 24.6 L (39.0-53.0) % RDW 22.9 H (11.5-15.5) % Retic Count (0.10-1.80) % BUN 66 H (9.0-27.0) mg/dL Creatinine 2.03 H (0.6-1.5) mg/dL Est GFR (CKD-EPI) (>=60) BUN/Creatinine Ratio (12.00-20.00) Ratio Glucose (70-110) mg/dL POC Glucose (mg/dL) 120 H (70-110) mg/dL Calcium 8.1 L (8.7-10.3) mg/dL AST (14-35) U/L ALT (10-49) U/L Total Protein (6.2-8.2) g/dL Albumin (3.8-4.9) g/dL Albumin/Globulin Ratio (1.60-3.17) Ratio Crossmatch Assessment and Plan (1) Cellulitis of right foot Current Visit: No Status: Acute Code(s): L03.115 - CELLULITIS OF RIGHT LOWER LIMB SNOMED Code(s): 54905271558449269 (2) Diabetic foot ulcer Current Visit: No Status: Acute Code(s): E11.621 - TYPE 2 DIABETES MELLITUS WITH FOOT ULCER; L97.509 - NON-PRESSURE CHRONIC ULCER OTH PRT UNSP FOOT W UNSP SEVERITY SNOMED Code(s): 345798919 Plan: 1patient presenting to the hospital mostly with generalized weakness low O2 sats possibly underlying cardiac etiology for the patient being managed by cardiology, patient also have a nonhealing wound to the right big toe amputation site with recent peripheral intervention and angioplasty overall wound base with minimal slough tissue no significant surrounding redness or foul-smelling drainage clinic suspicion is low for any worsening cellulitis or wound infectio n. 2patient is afebrile, patient to continue with Unasyn and local wound care to the right foot with Aquacel silver dressing Dictation was produced using [employer] dictation software. please excuse any grammatical, word or spelling errors. Time with Patient: Less than 30
[2024-04-27 01:52] LABS: Glucose,Whole Blood 113 mg/dL (70-110)
[2024-04-27 05:54] LABS: Glucose,Whole Blood 105 mg/dL (70-110)
[2024-04-27 09:12] LABS: ALT 58 U/L (10-49); AST 43 U/L (14-35); Albumin 3.1 g/dL (3.8-4.9); Albumin/Globulin Ratio 1.48 Ratio (1.60-3.17); Alkaline Phosphatase 78 U/L (41-126); BUN/Creat Ratio 26.26 Ratio (12.00-20.00); Blood Urea Nitrogen 49.9 mg/dL (9.0-27.0); Calcium 8.3 mg/dL (8.7-10.3); Carbon Dioxide 29.1 mmol/L (21.6-31.8); Chloride 107 mmol/L (96-109); Globulin 2.1 g/dL (1.6-3.3); Glucose 101 mg/dL (70-110); Potassium 4.8 mmol/L (3.5-5.5); Sodium 144 mmol/L (135-145); Total Bilirubin 0.2 mg/dL (0.3-1.2); Total Protein 5.2 g/dL (6.2-8.2)
[2024-04-27 09:17] LABS: HCT 26.2 % (39.6-50.0); HGB 8.1 g/dL (13.0-17.0); MCH 32.3 pg (27.0-32.0); MCHC 30.9 g/dL (32.0-37.0); MCV 104.4 FL (80.0-97.0); Mean Platelet Volume 11.2 FL (9.5-12.2); NRBC Per 100 WBC 0.28 X 10*3/uL (0.00-0.01); Platelet Count 292 X 10*3/uL (140-440); RBC 2.51 X 10*6/uL (4.40-5.60); RDW 22.1 % (11.5-14.5); WBC 9.37 X 10*3/uL (4.50-10.00)
[2024-04-27 09:51] LABS: Anisocytosis (M) 2+; Basophils # (A) 0.11 X 10*3/uL (0.00-0.10); Basophils % (A) 1.2 %; Eosinophils # (A) 0.32 X 10*3/uL (0.04-0.35); Eosinophils % (A) 3.4 %; Lymphocytes # (A) 1.19 X 10*3/uL (0.90-5.00); Lymphocytes % (A) 12.7 %; Macrocytosis (M) 2+; Monocytes # (A) 1.06 X 10*3/uL (0.20-1.00); Monocytes % (A) 11.3 %; Neutrophils # (A) 6.57 X 10*3/uL (1.80-7.70); Neutrophils % (A) 70.1 %
--- NOTE | 2024-04-27 11:03 | P.PN ---
Subjective Progress Note Date: 04/27/24 This is a 63-year-old white male with history of multiple medical problems including coronary artery disease, chronic atrial fibrillation, peripheral vessel occlusive disease, severe pulmonary hypertension, chronic obstructive pulmonary disease, patient normally sees Dr. Dillard on outpatient basis. Patient was never seen by a lead security officer. Admitted this time with few days history of increased shortness of breath, and according to the his O2 saturation was down in the 60s. Patient was brought into the ER, chest x-ray showed evidence of pulmonary edema, VQ scan negative for pulmonary embolism, patient was admitted and this consult was initiated. Patient is not a great historian, most of the information was obtained from his , apparently the patient had history of CVA in the past, and he had a previous PEG tube placement Labs on admission showed relatively normal CBC, no leukocytosis, D-dimer was a bit elevated at 2.10 and renal profile was abnormal with BUN of 43 and creatinine 2. 01 however BNP level was 12,300 and troponin was 0.043. Since admission, the patient received 1 dose of Lasix, and he is at least 1.5 L negative fluid balance The patient is seen today April 14, 2024 in follow-up on the selective care unit. He is currently sitting up at the bedside. Awake and alert in no acute distress. Breathing a bit easier today compared to yesterday. Currently maintaining good O2 saturations in the upper 90s on 3 L/min per nasal cannula. He is afebrile. Hemodynamically stable. Echocardiogram reveals impaired left ventricular systolic function with an ejection fraction of 35 to 40%. Severe pulmonary hypertension. Moderate to severely dilated left atrium. Right first toe culture is pending. Currently on Unasyn. Glucose 125. Being nourished with Glucerna at 51 MLS per hour via his PEG tube. Anticoagulated with Eliquis. Remains on diuretics. Making adequate urine. The patient is seen today April 15, 2024 in follow-up on the selective care unit. He is awake and alert in no acute distress. Maintaining O2 saturations in the 90s on 3 L/min per nasal cannula. Hemodynamically stable. White count 8.4. Hemoglobin 11.2. Platelets 321. Sodium 143. Potassium 4.9. Bicarb 29. BUN 45. Creatinine 1.99. Glucose 126. He is continued on Unasyn. Anticoagulated with Eliquis. Remains on bronchodilators. Remains on oral diuretics. Continued on Glucerna via his PEG tube. Barium swallow is pending so the patient can continue on tube feedings in the outpatient setting Patient was evaluated today on 04/16/2024, patient is doing well, comfortable, not in any distress, on 3 L nasal cannula with O2 sats of 96%. WBC is 8.5 hemoglobin 10.5 electrolytes are relatively normal with potassium of 5.2 BUN is 48 creatinine 1.94, steadily improving since admission patient had a successful swallow evaluation study that came back unremarkable. The patient was seen today April 17, 2024 in follow-up on the selective care unit. He is currently resting comfortably in bed. Awake and alert in no acute distress. Maintaining O2 saturations in the 90s on 2 L/min per nasal cannula. Right foot culture results revealing no growth. White count 9.6. Hemoglobin 1 0.9. Platelets 305. Sodium 145. Potassium 5.4. Bicarb 32. BUN 56. Creatinine 1.99. Glucose 133. He remains on bronchodilators. Anticoagulated with Eliquis. Antibiotics in the form of Unasyn. Remains on Glucerna tube feedings. The patient is seen today April 18, 2024 in follow-up on the regular medical floor. He is currently sitting up at the bedside. Awake and alert in no acute distress. Maintaining O2 saturations in the 90s on 2 L/min per nasal cannula. He has been afebrile. Hemodynamically stable. He remains on Glucerna at 51 mL/h which is goal. He remains on antibiotics in the form of Unasyn. His right foot dressing is dry and intact. Glucose 140. He remains on bronchodilators. Oral diuretics. Anticoagulated with Eliquis. The patient is seen today April 19, 2024 in follow-up on the regular medical floor. He is currently sitting up in bed. Awake and alert in no acute distress. He is maintaining good O2 saturations in the 90s on 3 L/min per nasal cannula. He remains on antibiotics in the form of Unasyn. He is being nourished with Glucerna at 51 mL/h which is his goal. He is continued on bronchodilators. Anticoagulated with Eliquis. Normal saline at 100 MLS per hour. White count 10.8. Hemoglobin 9.2. Platelets 307. Sodium 147. Potassium 6.3. BUN 84. Creatinine 2.3. Glucose 105. The patient is seen today April 20, 2024 in follow-up on the regular medical floor. He is currently sitting up at the bedside. Awake and alert in no acute distress. Maintaining good O2 saturations in the 90s on 4 L/min per nasal cannula. He remains on Glucerna at 51 mL/h which is goal. 0.45% normal saline at 75 MLS per hour. Potassium 5.6. Bicarb 30. BUN 90. Creatinine 2.4. Glucose 120. He received Lokelma yesterday for his hyperkalemia. Right foot cultures revealed no growth. Sputum culture revealed Jenae. He continues on Unasyn per ID service. He remains on bronchodilators. Anticoagulated with Eliquis. Remains on oral diuretics. The patient is seen today April 21, 2024 in follow-up on the regular medical floor. He is awake and alert in no acute distress. Sitting up at the bedside. Denies any worsening shortness of breath, cough or congestion. Continues to maintain good O2 saturations in the upper 90s on 4 L/min per nasal cannula. He is afebrile. Hemodynamically stable. White count 11.0. Hemoglobin 6.8. Platelets 324. Sodium 143. Potassium 5.9. Bicarb 29. BUN 98. Creatinine 2.4. Glucose 127. Nephrology is following. He remains on bronchodilators and Unasyn. The patient is seen today April 22, 2024 in follow-up on the regular medical floor. He is currently sitting up at the bedside. Awake and alert in no acute distress. He is receiving 2 units of packed red blood cells for hemoglobin of 6.4 today. White count 10.7. Platelets 308. Sodium 141. Potassium 5.8. Bicarb 28. BUN 107. Creatinine 2.7. Glucose 150. He remains on Unasyn. Continued on bronchodilators. Remains on Lokelma for his hyperkalemia. Receiving folate acid. The patient is seen today April 23, 2024 in follow-up on the regular medical floor. He is awake and alert in no acute distress. Maintaining O2 saturations in the 90s on 2 L/min per nasal cannula. Receiving normal saline at 20 MLS per hour. Continued on Nepro PEG tube feedings at 43 mL/h which is goal. He is status post 2 units of packed red blood cells. Hemoglobin 6.0 today. To receive 1 unit of packed red blood cells today unit. GI service is following. White count 13.7. Platelets 300. Sodium 141. Potassium 5.0. Bicarb 30. BUN 109. Creatinine 2.5. Glucose 146. He remains on Unasyn. Remains on Lokelma. The patient is seen today 04/24/2020 for follow-up on the regular medical floor. He is currently resting in bed. He has been having issues with anemia and his hemoglobin was 6.3 again today. He is receiving his fourth unit of packed red blood cells. He has received 2-1/2 L of fluid resuscitation. He is awaiting EGD/colonoscopy today. He remains on Unasyn. Continued on bronchodilators. Remains on Lokelma. white count 13.9. Platelets 323. Sodium 145. Potassium 5.3. Bicarb 27. BUN 89. Creatinine 2.3. Glucose 129. The patient is seen today April 27, 2024 in follow-up on the regular medical floor. He is currently awake and alert in no acute distress. He is sitting up in a chair at the bedside. He is maintaining good O2 saturations in the 90s on 3 L/min per nasal cannula. He is being nourished with Nepro at 43 mL/h. He is status post 5 units of packed red blood cells this admission. No further bleeding noted. White count 9.3. Hemoglobin 8.1. Platelets 292. Sodium 144. Potassium 4.8. Bicarb 29. BUN 50. Creatinine 1.9. Glucose 101. He remains on antibiotics in the form of Unasyn. Continued on bronchodilators. Objective - Vital Signs Vital signs: Vital Signs Temp 97.6 F 04/27/24 07:12 Pulse 124 H 04/27/24 07:12 Resp 18 04/27/24 07:12 BP 125/67 04/27/24 07:12 Pulse Ox 96 04/27/24 07:12 FiO2 Intake & Output 04/26/24 04/27/24 04/27/24 18:59 06:59 18:59 Intake Total 387 Output Total 250 Balance -250 387 Weight 95.5 kg Intake: Tube Feeding 387 Output: Urine 250 Other: Voiding Method Incontinent Incontinent Toilet # Voids 3 - Exam GENERAL EXAM: Alert, 63-year-old male, up in a chair, on 3 L nasal cannula, in no apparent distress. HEAD: Normocephalic. EYES: Normal reaction of pupils, equal size. NOSE: Clear with pink turbinates. THROAT: No erythema or exudates. NECK: No masses, no JVD. CHEST: No chest wall deformity. LUNGS: Equal air entry with no crackles, wheeze, rhonchi or dullness. CVS: S1 and S2 normal with no audible murmur, regular rhythm. ABDOMEN: PEG tube exit site clean and dry. No hepatosplenomegaly, normal bowel sounds, no guarding or rigidity. SPINE: No scoliosis or deformity SKIN: Evidence of purulent drainage noted at the site of a previous amputation of the big toe and second toe on the right foot CENTRAL NERVOUS SYSTEM: No focal deficits, tone is normal in all 4 extremities. EXTREMITIES: Right foot dressing dry and intact. There is no peripheral edema. Peripheral pulses are intact. - Labs CBC & Chem 7: 04/27/24 03:48 04/27/24 03:48 Labs: Abnormal Lab Results - Last 24 Hours (Table) 04/26/24 04/26/24 04/27/24 Range/Units 11:56 17:37 01:49 RBC (4.40-5.60) X 10*6/uL Hgb (13.0-17.0) g/dL Hct (39.6-50.0) % MCV (80.0-97.0) FL MCH (27.0-32.0) pg MCHC (32.0-37.0) g/dL RDW (11.5-14.5) % Immature Gran # (0.00-0.04) X 10*3/uL Monocytes # (0.20-1.00) X 10*3/uL Basophils # (0.00-0.10) X 10*3/uL NRBC/100 WBC Diff (0.00-0.01) X 10*3/uL Anisocytosis (manual) Macrocytosis (manual) BUN (9.0-27.0) mg/dL Creatinine (0.6-1.5) mg/dL Est GFR (CKD-EPI) (>=60) BUN/Creatinine Ratio (12.00-20.00) Ratio POC Glucose (mg/dL) 146 H 127 H 113 H (70-110) mg/dL Calcium (8.7-10.3) mg/dL Total Bilirubin (0.3-1.2) mg/dL AST (14-35) U/L ALT (10-49) U/L Total Protein (6.2-8.2) g/dL Albumin (3.8-4.9) g/dL Albumin/Globulin Ratio (1.60-3.17) Ratio 04/27/24 04/27/24 Range/Units 03:48 03:48 RBC 2.51 L (4.40-5.60) X 10*6/uL Hgb 8.1 L (13.0-17.0) g/dL Hct 26.2 L (39.6-50.0) % MCV 104.4 H (80.0-97.0) FL MCH 32.3 H (27.0-32.0) pg MCHC 30.9 L (32.0-37.0) g/dL RDW 22.1 H (11.5-14.5) % Immature Gran # 0.12 H (0.00-0.04) X 10*3/uL Monocytes # 1.06 H (0.20-1.00) X 10*3/uL Basophils # 0.11 H (0.00-0.10) X 10*3/uL NRBC/100 WBC Diff 0.28 H (0.00-0.01) X 10*3/uL Anisocytosis (manual) 2+ A Macrocytosis (manual) 2+ A BUN 49.9 H (9.0-27.0) mg/dL Creatinine 1.9 H (0.6-1.5) mg/dL Est GFR (CKD-EPI) 39 L (>=60) BUN/Creatinine Ratio 26.26 H (12.00-20.00) Ratio POC Glucose (mg/dL) (70-110) mg/dL Calcium 8.3 L (8.7-10.3) mg/dL Total Bilirubin 0.2 L (0.3-1.2) mg/dL AST 43 H (14-35) U/L ALT 58 H (10-49) U/L Total Protein 5.2 L (6.2-8.2) g/dL Albumin 3.1 L (3.8-4.9) g/dL Albumin/Globulin Ratio 1.48 L (1.60-3.17) Ratio Assessment and Plan Assessment: Acute hypoxic respiratory failure secondary to an acute exacerbation of systolic congestive heart failure ejection fraction 35 to 40% Acute cellulitis of right foot with previous amputation of big toe and second toe, culture revealed no growth Acute on chronic stage IV kidney disease, baseline creatinine is in the range of 2.0 since 2019 Anemia suspect secondary to above, receiving a 4th unit of packed red blood cells Hypotension secondary to anemia, received 2-1/2 L of fluid resuscitation, midodrine added, received 5 units of packed red blood cells this admission. Recovered. EGD revealed no evidence of peptic ulcer disease or esophagitis. No evidence of active bleeding. Intact internal bumper of the PEG tube. Colonoscopy revealed 3 small sigmoid colon polyps not removed, colon appeared normal. No active bleeding. Hyperkalemia secondary to above, remains on Lokelma Hypernatremia History of peripheral vessel occlusive disease and previous stenting of right SFA and right popliteal artery Severe pulmonary hypertension Paroxysmal atrial fibrillation, anticoagulated with Eliquis History of CVA with residual dysphagia requiring PEG tube placement Type 2 diabetes Chronic and ongoing tobacco dependence Plan: The patient was seen and evaluated Labs and medications reviewed Stable on 3 L nasal cannula Hemoglobin today 8.1 Being nourished with Nepro tube feedings Plan is for home with home care at discharge This patient was seen independently by the pulmonary nurse practitioner addressing pulmonary issues I have personally seen and examined the patient, performed the documentation and the assessment and plan as written. Number of minutes spent on the visit: 24.
[2024-04-27 11:14] LABS: Glucose,Whole Blood 121 mg/dL (70-110)
[2024-04-27] MEDS: METOPROLOL TARTRATE 50 MG TAB PEG/G-TUBE SCH (12:21)
--- NOTE | 2024-04-27 12:57 | P.PN ---
Subjective Progress Note Date: 04/27/24 HISTORY OF PRESENT ILLNESS: This is a 63-year-old male with a past medical history significant for paro xysmal atrial fibrillation, peripheral arterial disease, hypertension, hyperlipidemia, and diabetes. Patient follows in the office with Dr. Gonzalez. We have been asked to see the patient in consultation for elevated troponin. Patient examined at the bedside. The patient presented to the hospital with a chief complaint of shortness of breath. Patient states he has been feeling short of breath for the past couple weeks. He states that he checked his oxygen saturation at home and it was found to be in the high 80s. The patient denies having any chest pain or pressure. Patient was found to have elevated D-dimer of 2.10. He underwent VQ scan which was negative for pulmonary embolism. Vital signs are stable. It is noted that the patient underwent balloon angioplasty and stenting of right SFA and right popliteal. DIAGNOSTICS: - EKG reveals atrial fibrillation with controlled ventricular rate. - Chest xray cardiomegaly and mild pulmonary vascular congestion. - Laboratory data: WBC 8.7. Hemoglobin 11.4. Platelet count 283. D-dimer 2.10. Sodium 139. Potassium 4.9. BUN 41. Creatinine 2.01. Troponin 0.036. 0.038. 0.043. - Current home cardiac medications include amiodarone 100 mg daily, Eliquis 2.5 mg twice a day, Plavix 75 mg daily, losartan 25 mg daily, rosuvastatin 20 mg daily, metoprolol tartrate 50 mg twice a day. - Most recent echocardiogram obtained in June 2021 revealed ejection fraction 55 to 60%, severe pulmonary hypertension 04/14/2024 Patient examined this morning. Patient currently denies chest pain or pressure. He reports improvement in his shortness of breath. Echocardiogram completed revealing ejection fraction 35 to 40%, mild MR, mild TR. 04/15/2024 Patient examined this morning at bedside. Patient currently denies chest pain or pressure. He denies shortness of breath. Vital signs are stable. 04/23 Cardiology was re-counseled that secondary to anemia and recommendations for blood thinners. Patient denies any chest pain or pressure. He does feel significantly short of breath. Hemoglobin down to 6.4 and packed red blood cells were reordered. He states he is feeling sick. And tired and is questioning whether he even wants blood transfusions. He denies any hematochezia or melena. 04/24/2024 patient examined this morning to bedside. Patient currently denies chest pain or pressure. He denies shortness of breath. Hemoglobin today 6.3. He is scheduled to undergo endoscopy today. 04/27 Patient was previously seen by cardiology and signed off on 04/24. We have been reconsulted for tachycardia and hypotension. EKG is junctional rhythm 122 bpm. Blood pressure 125/67 but previously during the night, patient was 88/56. R epeat blood work reveals hemoglobin 8.1, BUN 49 creatinine 1.9. Patient is currently on Lopressor 50 mg twice daily per PEG tube which will be increased frequency to 3 times daily. Patient has also been on midodrine as ordered by pulmonary medicine. PHYSICAL EXAM: VITAL SIGNS: Reviewed. GENERAL: Well-developed in no acute distress. LUNGS: Respirations even and unlabored. Lungs essentially clear to auscultation bilaterally. HEART: Irregular rate and rhythm. S1 and S2 heard. Tachycardic. ABDOMEN: Soft. Nondistended. Nontender. EXTREMITIES: No clubbing or cyanosis. Peripheral pulses intact. No lower extremity edema NEUROLOGIC: Awake and alert. ASSESSMENT: Shortness of breath, etiology unclear, VQ scan negative for PE, not volume overloaded on clinical examination Acute hypoxic respiratory failure requiring supplemental oxygen Abnormal troponins, flat, type II WA secondary to oxygen supply and demand mismatch Recent balloon angioplasty and stenting of right SFA and right popliteal artery, 04/08/2024 Severe pulmonary hypertension Peripheral arterial disease Paroxysmal atrial fibrillation History of CVA Hypertension Hyperlipidemia Diabetes History of PEG tube placement New onset cardiomyopathy, ischemic versus nonischemic Anemia PLAN: Continue current cardiac medications: Aspirin 81 mg daily, atorvastatin 40 mg daily, Plavix 75 mg daily Increase frequency of metoprolol tartrate 50 mg to 3 times daily patient's Eliquis has been placed on hold due to anemia Further recommendations as patient progresses. Nurse practitioner note has been reviewed by physician. Signing provider agrees with the documented findings, assessment, and plan of care documented by [employer] as a scribe. Objective - Vital Signs Vital signs: Vital Signs Temp 97.6 F 04/27/24 07:12 Pulse 124 H 04/27/24 07:12 Resp 18 04/27/24 07:12 BP 125/67 04/27/24 07:12 Pulse Ox 96 04/27/24 07:12 FiO2 Intake & Output 04/26/24 04/27/24 04/27/24 18:59 06:59 18:59 Intake Total 387 Output Total 250 Balance -250 387 Weight 95.5 kg Intake: Tube Feeding 387 Output: Urine 250 Other: Voiding Method Incontinent Incontinent Toilet # Voids 3 - Labs CBC & Chem 7: 04/27/24 03:48 04/27/24 03:48 Labs: Abnormal Lab Results - Last 24 Hours (Table) 04/26/24 04/26/24 04/27/24 Range/Units 11:56 17:37 01:49 RBC (4.40-5.60) X 10*6/uL Hgb (13.0-17.0) g/dL Hct (39.6-50.0) % MCV (80.0-97.0) FL MCH (27.0-32.0) pg MCHC (32.0-37.0) g/dL RDW (11.5-14.5) % Immature Gran # (0.00-0.04) X 10*3/uL Monocytes # (0.20-1.00) X 10*3/uL Basophils # (0.00-0.10) X 10*3/uL NRBC/100 WBC Diff (0.00-0.01) X 10*3/uL Anisocytosis (manual) Macrocytosis (manual) BUN (9.0-27.0) mg/dL Creatinine (0.6-1.5) mg/dL Est GFR (CKD-EPI) (>=60) BUN/Creatinine Ratio (12.00-20.00) Ratio POC Glucose (mg/dL) 146 H 127 H 113 H (70-110) mg/dL Calcium (8.7-10.3) mg/dL Total Bilirubin (0.3-1.2) mg/dL AST (14-35) U/L ALT (10-49) U/L Total Protein (6.2-8.2) g/dL Albumin (3.8-4.9) g/dL Albumin/Globulin Ratio (1.60-3.17) Ratio 04/27/24 04/27/24 04/27/24 Range/Units 03:48 03:48 11:13 RBC 2.51 L (4.40-5.60) X 10*6/uL Hgb 8.1 L (13.0-17.0) g/dL Hct 26.2 L (39.6-50.0) % MCV 104.4 H (80.0-97.0) FL MCH 32.3 H (27.0-32.0) pg MCHC 30.9 L (32.0-37.0) g/dL RDW 22.1 H (11.5-14.5) % Immature Gran # 0.12 H (0.00-0.04) X 10*3/uL Monocytes # 1.06 H (0.20-1.00) X 10*3/uL Basophils # 0.11 H (0.00-0.10) X 10*3/uL NRBC/100 WBC Diff 0.28 H (0.00-0.01) X 10*3/uL Anisocytosis (manual) 2+ A Macrocytosis (manual) 2+ A BUN 49.9 H (9.0-27.0) mg/dL Creatinine 1.9 H (0.6-1.5) mg/dL Est GFR (CKD-EPI) 39 L (>=60) BUN/Creatinine Ratio 26.26 H (12.00-20.00) Ratio POC Glucose (mg/dL) 121 H (70-110) mg/dL Calcium 8.3 L (8.7-10.3) mg/dL Total Bilirubin 0.2 L (0.3-1.2) mg/dL AST 43 H (14-35) U/L ALT 58 H (10-49) U/L Total Protein 5.2 L (6.2-8.2) g/dL Albumin 3.1 L (3.8-4.9) g/dL Albumin/Globulin Ratio 1.48 L (1.60-3.17) Ratio
--- NOTE | 2024-04-27 13:17 | P.PN ---
Subjective patient is seen for follow-up for acute kidney injury and chronic kidney disease. No significant complaints today. Serum creatinine stable at about 2.0 mg/dL. Objective - Vital Signs Vital signs: Vital Signs Temp 97.6 F 04/27/24 07:12 Pulse 124 H 04/27/24 07:12 Resp 18 04/27/24 07:12 BP 125/67 04/27/24 07:12 Pulse Ox 96 04/27/24 07:12 FiO2 Intake & Output 04/26/24 04/27/24 04/27/24 18:59 06:59 18:59 Intake Total 387 Output Total 250 Balance -250 387 Weight 95.5 kg Intake: Tube Feeding 387 Output: Urine 250 Other: Voiding Method Incontinent Incontinent Toilet # Voids 3 - Exam patient is awake, comfortable, no acute distress. Examination of the heart S1 and S2 Examination lungs bilateral breath sounds are heard Abdomen is soft nontender Examination lower extremities shows no significant edema. - Labs CBC & Chem 7: 04/27/24 03:48 04/27/24 03:48 Labs: Abnormal Lab Results - Last 24 Hours (Table) 04/26/24 04/27/24 04/27/24 Range/Units 17:37 01:49 03:48 RBC 2.51 L (4.40-5.60) X 10*6/uL Hgb 8.1 L (13.0-17.0) g/dL Hct 26.2 L (39.6-50.0) % MCV 104.4 H (80.0-97.0) FL MCH 32.3 H (27.0-32.0) pg MCHC 30.9 L (32.0-37.0) g/dL RDW 22.1 H (11.5-14.5) % Immature Gran # 0.12 H (0.00-0.04) X 10*3/uL Monocytes # 1.06 H (0.20-1.00) X 10*3/uL Basophils # 0.11 H (0.00-0.10) X 10*3/uL NRBC/100 WBC Diff 0.28 H (0.00-0.01) X 10*3/uL Anisocytosis (manual) 2+ A Macrocytosis (manual) 2+ A BUN (9.0-27.0) mg/dL Creatinine (0.6-1.5) mg/dL Est GFR (CKD-EPI) (>=60) BUN/Creatinine Ratio (12.00-20.00) Ratio POC Glucose (mg/dL) 127 H 113 H (70-110) mg/dL Calcium (8.7-10.3) mg/dL Total Bilirubin (0.3-1.2) mg/dL AST (14-35) U/L ALT (10-49) U/L Total Protein (6.2-8.2) g/dL Albumin (3.8-4.9) g/dL Albumin/Globulin Ratio (1.60-3.17) Ratio 04/27/24/ Range/Units 03:48 11:13 RBC (4.40-5.60) X 10*6/uL Hgb (13.0-17.0) g/dL Hct (39.6-50.0) % MCV (80.0-97.0) FL MCH (27.0-32.0) pg MCHC (32.0-37.0) g/dL RDW (11.5-14.5) % Immature Gran # (0.00-0.04) X 10*3/uL Monocytes # (0.20-1.00) X 10*3/uL Basophils # (0.00-0.10) X 10*3/uL NRBC/100 WBC Diff (0.00-0.01) X 10*3/uL Anisocytosis (manual) Macrocytosis (manual) BUN 49.9 H (9.0-27.0) mg/dL Creatinine 1.9 H (0.6-1.5) mg/dL Est GFR (CKD-EPI) 39 L (>=60) BUN/Creatinine Ratio 26.26 H (12.00-20.00) Ratio POC Glucose (mg/dL) 121 H (70-110) mg/dL Calcium 8.3 L (8.7-10.3) mg/dL Total Bilirubin 0.2 L (0.3-1.2) mg/dL AST 43 H (14-35) U/L ALT 58 H (10-49) U/L Total Protein 5.2 L (6.2-8.2) g/dL Albumin 3.1 L (3.8-4.9) g/dL Albumin/Globulin Ratio 1.48 L (1.60-3.17) Ratio Assessment and Plan Assessment: 1. Acute kidney injury secondary to ATN secondary to acute blood loss anemia. Creatinine peaked at 2.7 this admission and stable at 1.9 today. Elevated BUN secondary to chronic kidney disease as well as GI bleed. No hydronephrosis noted on kidney ultrasound. UA fairly benign. 2. Chronic kidney disease stage IV baseline creatinine 1.8-2.0 secondary to solitary right kidney. History of left nephrectomy. 3. Chronic systolic CHF ejection fraction of 35 to 40% with severe pulmonary hypertension. 4. Diabetes mellitus. 5. Hypernatremia from lack of oral water intake. Improved. 6. Hyperkalemia secondary to acute kidney injury and GI bleed. Resolved. 7. Peripheral vascular disease. 8. Acute blood loss anemia with hemoglobin. No active bleeding. Status post blood transfusions and IV DDAVP. Also on Aranesp. GI following. Plan: continue to monitor renal function periodically.
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
--- NOTE | 2024-04-27 17:39 | P.PN ---
Subjective Progress Note Date: 04/27/24 Everett Juárez, is a 63-year-old male who presented to [facility] emergency room with a chief complaint of worsening shortness of breath and generalized weakness, patient was recently admitted to [facility] with peripheral vascular disease right foot osteomyelitis and underwent stenting of the right SFA by Dr. Dillard, he has a previous history of right great toe amputation. He was evaluated in the emergency room vital examination on presentation revealed a temperature of 98.9 pulse 110 respiration 18 blood pressure 114/72 pulse ox 96% on room air Laboratory data reveals a white blood count of 8.7 hemoglobin 11.4 platelet count 283 sodium 139 potassium 4.9 chloride 110 CO2 23 BUN 41 creatinine 2.01 D- dimer was elevated at 2.10, troponin level was elevated at 0.043 Testing in the emergency room revealed chest x-ray done in the emergency room revealed cardiomegaly and mild pulmonary vascular congestion suggestive of congestive heart failure, VQ scan showed no evidence for pulmonary embolism, EKG revealed atrial fibrillation with moderate T wave abnormalities suggestive of lateral ischemia. Patient was admitted to medical floor for further evaluation and treatment Past medical history is significant for history of atrial fibrillation, history of peripheral arterial disease with previous history of right great toe amputation, history of COPD, history of diabetes mellitus type 2, history of hyperkalemia, history of chronic kidney disease. On review of systems patient is alert and oriented x 3 in no apparent distress, he is complaining of generalized weakness, complaining of shortness of breath, which is worse with activity, and complaining of right foot pain, otherwise he denies any complaints, there is no fever or chills no headache or dizziness no chest pain, no cough no nausea or vomiting no abdominal pain no diarrhea and no urinary symptoms On 04/14/2024 patient is alert and oriented 3.Patient remains on IV Unasyn and IV Lasix. 2-D echo completed showing an EF of 35-40%. Current vital signs temp 98.3, heart 81, respiratory rate 18, blood pressure 135/67 with a pulse ox of 100% on 3 L. Patient reports improvement with shortness of breath. Patient denies nausea vomiting or diarrhea. Patient denies any urinary burning or frequency On 04/15/2024 Patient is alert and oriented 3. Patient remains on IV Unasyn. Patient has been transitioned to by mouth Lasix.Current vital signs temp 97.1, heart rate 98, respiratory rate 18, blood pressure 121/79 with pulse ox 96% on 3 L. Patient denies chest pain or shortness breath. Patient denies nausea vomiting or diarrhea. Patient denies any urinary burning or frequency. On 04/16/2024 he is alert and oriented x 3 in no apparent distress he reports improvement in his shortness of breath there is no fever or chills no headache or dizziness no chest pain no cough no nausea or vomiting no abdominal pain no diarrhea and no urinary symptoms. On 04/17/2024 patient is alert and oriented x 3. Current vital signs Temp 98.1, heart rate 100, respiratory rate 16, blood pressure 153/81 with a pulse ox of 97% on 2 L. Patient remains on IV Unasyn. Awaiting final antibiotic recommenda tions per ID. Patient denies chest pain or shortness of breath. Patient denies nausea vomiting or diarrhea. Patient denies any urinary burning or frequency. 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 Otherwise continue with current management will recheck in a.m.. On 04/19/2024 patient is alert and oriented x 3. Patient is maintained on 3 L n roberth cannula. Patient also maintained on IV Unasyn. Awaiting final IV recommendations from infectious disease. Current vital signs Temp 98.2, heart rate 82, blood pressure 116/70 with a pulse ox of 97% on 3 L patient denies chest pain or shortness of breath. Patient denies nausea vomiting or diarrhea. Patient denies any urinary burning or frequency On 04/20/2024 patient was seen and examined on the medical floor he is alert and oriented x 3 in no apparent distress, there is no fever or chills no headache or dizziness no chest pain no shortness of breath no cough no nausea or vomiting no abdominal pain no diarrhea no urinary symptoms, patient is still having difficulty with hyperkalemia, he is maintained on IV fluids and [facility] nephrology are following, will recheck labs in a.m. On 04/21/2024 patient is alert and oriented x 3. Potassium remains elevated at 5.9 awaiting further recommendations from nephrology standpoint. Patient denies chest pain or shortness of breath. Patient denies nausea vomiting or diarrhea. Patient denies any urinary burning or frequency On 04/22/2024 patient is alert and oriented x 3. Patient received 1 unit PRBCs for hemoglobin of 6.8 yesterday. GI services were consulted stool for occult blood ordered. Nephrology service is following for elevated potassium level. At this time patient denies chest pain or shortness of breath. Patient denies nausea vomiting or diarrhea. Patient denies any urinary burning frequency. On 04/23/2024 patient was seen and examined on the medical floor he is alert and oriented x 3 in no apparent distress, his hemoglobin today is again 6.01 unit of red blood cell transfusion was ordered, he was reevaluated by gastroenterology and plans are for EGD and colonoscopy tomorrow, otherwise he denies any complaints there is no fever or chills no headache or dizziness no chest pain no shortness of breath no cough no nausea or vomiting no abdominal pain no diarrhea no urinary symptoms On 04/24/2024 patient is alert and oriented 3. Plans for EGD and colonoscopy today with GI services.Patient had episodes of hypotension throughout night received IV bolus. Continue to transfuse patient for hemoglobin less than 7. Patient remains on IV Unasyn. This time patient denies chest pain or shortness breath. Patient denies nausea vomiting or diarrhea. Patient denies any urinary burning or frequency. On 04/25/2024 patient was seen and examined on the medical floor he is alert and oriented x 3 in no apparent distress there is no fever or chills no headache or dizziness no chest pain no shortness of breath no cough no nausea or vomiting no abdominal pain no diarrhea no urinary symptoms, hemoglobin is down again to 6.7 patient will be given 1 unit of red blood cell transfusion, EGD and colonoscopy results done yesterday were reviewed, at this time will consult Dr. Jackson regarding recurrent pneumonia requiring multiple red blood cell transfusion, continue with tube feeding at this time. On 04/26/2024 patient is alert and oriented x 3. Hemoglobin today 8.0. Awaiting oncology input. Patient denies chest pain or shortness of breath. Patient denies nausea vomiting or diarrhea. Patient denies any urinary burning or frequency. Current vital signs Temp 97.7, heart rate 91, respiratory rate 16, blood pressure 118/60 with pulse ox of 98% on 4 L On 04/27/2024 patient was seen and examined on the medical floor he is alert and oriented x 3 in no apparent distress he is complaining of generalized weakness otherwise he denies any specific complaints there is no fever or chills no headache or dizziness no chest pain no shortness of breath no cough no nausea or vomiting no abdominal pain no diarrhea no urinary symptoms Objective - Vital Signs Vital signs: Vital Signs Temp 97.8 F 04/27/24 13:29 Pulse 120 H 04/27/24 13:29 Resp 18 04/27/24 13:29 BP 115/72 04/27/24 13:29 Pulse Ox 95 04/27/24 13:29 FiO2 Intake & Output 04/26/24 04/27/24 04/27/24 18:59 06:59 18:59 Intake Total 387 Output Total 250 Balance -250 387 Weight 95.5 kg Intake: Tube Feeding 387 Output: Urine 250 Other: Voiding Method Incontinent Incontinent Toilet # Voids 3 - Exam In general patient is alert and oriented x 3 in no distress HEENT head normocephalic and atraumatic Neck is supple no JVD no goiter no lymphadenopathy no carotid bruit Chest examination reveals a scattered crackles in both lung [place] no wheezing Cardiac exam reveals irregular heart sounds S1 and S2 no gallops no murmurs Abdomen is soft nontender no organomegaly with normal bowel sounds Extremity exam reveals no edema no cyanosis or clubbing, the right great toe is amputated with a large ulcer at the base of the amputated right great toe with purulent discharge Neurological examination reveals no gross focal deficits - Labs CBC & Chem 7: 04/27/24 03:48 04/27/24 03:48 Labs: Abnormal Lab Results - Last 24 Hours (Table) 04/26/24 04/27/24 04/27/24 Range/Units 17:37 01:49 03:48 RBC 2.51 L (4.40-5.60) X 10*6/uL Hgb 8.1 L (13.0-17.0) g/dL Hct 26.2 L (39.6-50.0) % MCV 104.4 H (80.0-97.0) FL MCH 32.3 H (27.0-32.0) pg MCHC 30.9 L (32.0-37.0) g/dL RDW 22.1 H (11.5-14.5) % Immature Gran # 0.12 H (0.00-0.04) X 10*3/uL Monocytes # 1.06 H (0.20-1.00) X 10*3/uL Basophils # 0.11 H (0.00-0.10) X 10*3/uL NRBC/100 WBC Diff 0.28 H (0.00-0.01) X 10*3/uL Anisocytosis (manual) 2+ A Macrocytosis (manual) 2+ A BUN (9.0-27.0) mg/dL Creatinine (0.6-1.5) mg/dL Est GFR (CKD-EPI) (>=60) BUN/Creatinine Ratio (12.00-20.00) Ratio POC Glucose (mg/dL) 127 H 113 H (70-110) mg/dL Calcium (8.7-10.3) mg/dL Total Bilirubin (0.3-1.2) mg/dL AST (14-35) U/L ALT (10-49) U/L Total Protein (6.2-8.2) g/dL Albumin (3.8-4.9) g/dL Albumin/Globulin Ratio (1.60-3.17) Ratio 04/27/24 04/27/24 Range/Units 03:48 11:13 RBC (4.40-5.60) X 10*6/uL Hgb (13.0-17.0) g/dL Hct (39.6-50.0) % MCV (80.0-97.0) FL MCH (27.0-32.0) pg MCHC (32.0-37.0) g/dL RDW (11.5-14.5) % Immature Gran # (0.00-0.04) X 10*3/uL Monocytes # (0.20-1.00) X 10*3/uL Basophils # (0.00-0.10) X 10*3/uL NRBC/100 WBC Diff (0.00-0.01) X 10*3/uL Anisocytosis (manual) Macrocytosis (manual) BUN 49.9 H (9.0-27.0) mg/dL Creatinine 1.9 H (0.6-1.5) mg/dL Est GFR (CKD-EPI) 39 L (>=60) BUN/Creatinine Ratio 26.26 H (12.00-20.00) Ratio POC Glucose (mg/dL) 121 H (70-110) mg/dL Calcium 8.3 L (8.7-10.3) mg/dL Total Bilirubin 0.2 L (0.3-1.2) mg/dL AST 43 H (14-35) U/L ALT 58 H (10-49) U/L Total Protein 5.2 L (6.2-8.2) g/dL Albumin 3.1 L (3.8-4.9) g/dL Albumin/Globulin Ratio 1.48 L (1.60-3.17) Ratio Assessment and Plan Plan: Worsening shortness of breath, multifactorial, possibly related to acute congestive heart failure, and underlying COPD Atrial fibrillation, with rapid ventricular response on presentation, heart rate was 110 New onset cardiomyopathy. Anemia status post EGD and colonoscopy on 04/24/2024 Generalized weakness Large ulcer at the base of the right great toe with purulent discharge, patient was maintained on oral Augmentin as outpatient, infectious disease consultation requested Underlying history of peripheral arterial disease, with recent history of angioplasty and stent placement to the right lower extremity on 04/08/2024 Underlying history of diabetes mellitus Underlying history of chronic obstructive pulmonary disease Underlying history of chronic kidney disease Underlying history of hyperkalemia Underlying history of chronic continued tobacco abuse At this time patient is admitted to telemetry floor Home medications reviewed and reordered Consultation for cardiology and pulmonary were requested in the emergency room For DVT prophylaxis, patient is maintained on scds (eliquis on hold due to anemia) Will add infectious disease consultation in regard to base of right great toe ulcer Will follow closely
[2024-04-27 18:05] LABS: Glucose,Whole Blood 118 mg/dL (70-110)
--- NOTE | 2024-04-27 18:14 | P.PN ---
Subjective Progress Note Date: 04/27/24 Patient resting comfortably in bedside chair, denies any episodes of acute bleeding. Hgb stable at 8.1 today. Plts 292,000. Completed 3 doses parenteral iron. Objective - Vital Signs Vital signs: Vital Signs Temp 97.6 F 04/27/24 07:12 Pulse 124 H 04/27/24 07:12 Resp 18 04/27/24 07:12 BP 125/67 04/27/24 07:12 Pulse Ox 96 04/27/24 07:12 FiO2 Intake & Output 04/26/24 04/27/24 04/27/24 18:59 06:59 18:59 Intake Total 387 Output Total 250 Balance -250 387 Weight 95.5 kg Intake: Tube Feeding 387 Output: Urine 250 Other: Voiding Method Incontinent Incontinent Toilet # Voids 3 - Constitutional General appearance: Present: average body habitus, no acute distress - EENT Eyes: Present: EOMI ENT: Present: hearing grossly normal - Respiratory Details: breathing is even and unlabored - Cardiovascular Details: skin warm and dry - Gastrointestinal General gastrointestinal: Absent: tenderness - Integumentary Integumentary: Present: pale. Absent: cyanotic - Musculoskeletal Musculoskeletal: Present: generalized weakness - Psychiatric Psychiatric: Present: A&O x's 3 - Labs CBC & Chem 7: 04/27/24 03:48 04/27/24 03:48 Labs: Abnormal Lab Results - Last 24 Hours (Table) 04/26/24 04/26/24 04/27/24 Range/Units 11:56 17:37 01:49 RBC (4.40-5.60) X 10*6/uL Hgb (13.0-17.0) g/dL Hct (39.6-50.0) % MCV (80.0-97.0) FL MCH (27.0-32.0) pg MCHC (32.0-37.0) g/dL RDW (11.5-14.5) % Immature Gran # (0.00-0.04) X 10*3/uL Monocytes # (0.20-1.00) X 10*3/uL Basophils # (0.00-0.10) X 10*3/uL NRBC/100 WBC Diff (0.00-0.01) X 10*3/uL Anisocytosis (manual) Macrocytosis (manual) BUN (9.0-27.0) mg/dL Creatinine (0.6-1.5) mg/dL Est GFR (CKD-EPI) (>=60) BUN/Creatinine Ratio (12.00-20.00) Ratio POC Glucose (mg/dL) 146 H 127 H 113 H (70-110) mg/dL Calcium (8.7-10.3) mg/dL Total Bilirubin (0.3-1.2) mg/dL AST (14-35) U/L ALT (10-49) U/L Total Protein (6.2-8.2) g/dL Albumin (3.8-4.9) g/dL Albumin/Globulin Ratio (1.60-3.17) Ratio 04/27/24 04/27/24 04/27/24 Range/Units 03:48 03:48 11:13 RBC 2.51 L (4.40-5.60) X 10*6/uL Hgb 8.1 L (13.0-17.0) g/dL Hct 26.2 L (39.6-50.0) % MCV 104.4 H (80.0-97.0) FL MCH 32.3 H (27.0-32.0) pg MCHC 30.9 L (32.0-37.0) g/dL RDW 22.1 H (11.5-14.5) % Immature Gran # 0.12 H (0.00-0.04) X 10*3/uL Monocytes # 1.06 H (0.20-1.00) X 10*3/uL Basophils # 0.11 H (0.00-0.10) X 10*3/uL NRBC/100 WBC Diff 0.28 H (0.00-0.01) X 10*3/uL Anisocytosis (manual) 2+ A Macrocytosis (manual) 2+ A BUN 49.9 H (9.0-27.0) mg/dL Creatinine 1.9 H (0.6-1.5) mg/dL Est GFR (CKD-EPI) 39 L (>=60) BUN/Creatinine Ratio 26.26 H (12.00-20.00) Ratio POC Glucose (mg/dL) 121 H (70-110) mg/dL Calcium 8.3 L (8.7-10.3) mg/dL Total Bilirubin 0.2 L (0.3-1.2) mg/dL AST 43 H (14-35) U/L ALT 58 H (10-49) U/L Total Protein 5.2 L (6.2-8.2) g/dL Albumin 3.1 L (3.8-4.9) g/dL Albumin/Globulin Ratio 1.48 L (1.60-3.17) Ratio Assessment and Plan (1) Anemia Current Visit: Yes Status: Acute Priority: High Code(s): D64.9 - ANEMIA, UNSPECIFIED SNOMED Code(s): 404170051 (2) Atrial fibrillation Current Visit: Yes Status: Acute Priority: High Code(s): I48.91 - UNSPECIFIED ATRIAL FIBRILLATION SNOMED Code(s): 81046868 (3) CHF (congestive heart failure) Current Visit: Yes Status: Acute Priority: High Code(s): I50.9 - HEART FAILURE, UNSPECIFIED SNOMED Code(s): 48267824 Plan: Anemia: The patient developed anemia of acute onset, after admission, which has subsequently been somewhat refractory to multiple blood transfusions. He has not seen any obvious bleeding. Workup for hemolysis an upper and lower endoscopies were negative - The most likely component of the anemia is GI blood loss. 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 His bone marrow response to blood loss is probably significantly blunted by the CAD, and ongoing inflammation, further aggravating the degree and duration of anemia. - The patient's Eliquis, and Plavix have been discontinued. However the effect of Plavix can last for about 4-5 days. In this situation I would expect that he would likely start showing a better response to blood transfusion in the next 1- 2 days. In addition the patient has also been started on ADAN by nephrology although that would not be expected to show any effect in the short-term. - If the patient continues to show refractoriness to transfusions ongoing, then we will consider platelet transfusion and additional DDAVP. - Case was discussed with ID. They confirmed that his wound does not appear to be actively infected and there should not be any contraindication to IV iron. S/ p 3 doses parenteral iron -Hgb stable, slightly improved today at 8.1. No reported episodes of acute bleeding -Will plan for clinic f/u in 4-5 weeks to recheck iron studies, and additional parenteral iron as indicated
[2024-04-28 00:09] LABS: Glucose,Whole Blood 105 mg/dL (70-110)
[2024-04-28 05:57] LABS: Glucose,Whole Blood 154 mg/dL (70-110)
[2024-04-28 08:29] LABS: Basophils # (A) 0.09 X 10*3/uL (0.00-0.10); Basophils % (A) 0.9 %; Eosinophils # (A) 0.29 X 10*3/uL (0.04-0.35); HGB 8.1 g/dL (13.0-17.0); Lymphocytes # (A) 1.29 X 10*3/uL (0.90-5.00); Lymphocytes % (A) 13.2 %; MCH 31.3 pg (27.0-32.0); MCV 104.2 FL (80.0-97.0); Mean Platelet Volume 10.9 FL (9.5-12.2); Monocytes # (A) 1.11 X 10*3/uL (0.20-1.00); Monocytes % (A) 11.3 %; NRBC Per 100 WBC 0.28 X 10*3/uL (0.00-0.01); Neutrophils # (A) 6.92 X 10*3/uL (1.80-7.70); Neutrophils % (A) 70.8 %; Platelet Count 311 X 10*3/uL (140-440); RBC 2.59 X 10*6/uL (4.40-5.60); RDW 23.6 % (11.5-14.5); WBC 9.78 X 10*3/uL (4.50-10.00)
[2024-04-28 08:47] LABS: ALT 63 U/L (10-49); AST 61 U/L (14-35); Albumin 3.2 g/dL (3.8-4.9); Albumin/Globulin Ratio 1.45 Ratio (1.60-3.17); Alkaline Phosphatase 87 U/L (41-126); BUN/Creat Ratio 22.55 Ratio (12.00-20.00); Blood Urea Nitrogen 45.1 mg/dL (9.0-27.0); Calcium 8.5 mg/dL (8.7-10.3); Carbon Dioxide 28.1 mmol/L (21.6-31.8); Chloride 105 mmol/L (96-109); Globulin 2.2 g/dL (1.6-3.3); Glucose 119 mg/dL (70-110); Potassium 4.7 mmol/L (3.5-5.5); Sodium 142 mmol/L (135-145); Total Bilirubin 0.3 mg/dL (0.3-1.2); Total Protein 5.4 g/dL (6.2-8.2)
--- NOTE | 2024-04-28 10:39 | P.PN ---
Subjective Progress Note Date: 04/28/24 This is a 63-year-old white male with history of multiple medical problems including coronary artery disease, chronic atrial fibrillation, peripheral vessel occlusive disease, severe pulmonary hypertension, chronic obstructive pulmonary disease, patient normally sees Dr. Dillard on outpatient basis. Patient was never seen by a credit consultant. Admitted this time with few days history of increased shortness of breath, and according to the his O2 saturation was down in the 60s. Patient was brought into the ER, chest x-ray showed evidence of pulmonary edema, VQ scan negative for pulmonary embolism, patient was admitted and this consult was initiated. Patient is not a great historian, most of the information was obtained from his , apparently the patient had history of CVA in the past, and he had a previous PEG tube placement Labs on admission showed relatively normal CBC, no leukocytosis, D-dimer was a bit elevated at 2.10 and renal profile was abnormal with BUN of 43 and creatinine 2. 01 however BNP level was 12,300 and troponin was 0.043. Since admission, the patient received 1 dose of Lasix, and he is at least 1.5 L negative fluid balance The patient is seen today April 14, 2024 in follow-up on the selective care unit. He is currently sitting up at the bedside. Awake and alert in no acute distress. Breathing a bit easier today compared to yesterday. Currently maintaining good O2 saturations in the upper 90s on 3 L/min per nasal cannula. He is afebrile. Hemodynamically stable. Echocardiogram reveals impaired left ventricular systolic function with an ejection fraction of 35 to 40%. Severe pulmonary hypertension. Moderate to severely dilated left atrium. Right first toe culture is pending. Currently on Unasyn. Glucose 125. Being nourished with Glucerna at 51 MLS per hour via his PEG tube. Anticoagulated with Eliquis. Remains on diuretics. Making adequate urine. The patient is seen today April 15, 2024 in follow-up on the selective care unit. He is awake and alert in no acute distress. Maintaining O2 saturations in the 90s on 3 L/min per nasal cannula. Hemodynamically stable. White count 8.4. Hemoglobin 11.2. Platelets 321. Sodium 143. Potassium 4.9. Bicarb 29. BUN 45. Creatinine 1.99. Glucose 126. He is continued on Unasyn. Anticoagulated with Eliquis. Remains on bronchodilators. Remains on oral diuretics. Continued on Glucerna via his PEG tube. Barium swallow is pending so the patient can continue on tube feedings in the outpatient setting Patient was evaluated today on 04/16/2024, patient is doing well, comfortable, not in any distress, on 3 L nasal cannula with O2 sats of 96%. WBC is 8.5 hemoglobin 10.5 electrolytes are relatively normal with potassium of 5.2 BUN is 48 creatinine 1.94, steadily improving since admission patient had a successful swallow evaluation study that came back unremarkable. The patient was seen today April 17, 2024 in follow-up on the selective care unit. He is currently resting comfortably in bed. Awake and alert in no acute distress. Maintaining O2 saturations in the 90s on 2 L/min per nasal cannula. Right foot culture results revealing no growth. White count 9.6. Hemoglobin 1 0.9. Platelets 305. Sodium 145. Potassium 5.4. Bicarb 32. BUN 56. Creatinine 1.99. Glucose 133. He remains on bronchodilators. Anticoagulated with Eliquis. Antibiotics in the form of Unasyn. Remains on Glucerna tube feedings. The patient is seen today April 18, 2024 in follow-up on the regular medical floor. He is currently sitting up at the bedside. Awake and alert in no acute distress. Maintaining O2 saturations in the 90s on 2 L/min per nasal cannula. He has been afebrile. Hemodynamically stable. He remains on Glucerna at 51 mL/h which is goal. He remains on antibiotics in the form of Unasyn. His right foot dressing is dry and intact. Glucose 140. He remains on bronchodilators. Oral diuretics. Anticoagulated with Eliquis. The patient is seen today April 19, 2024 in follow-up on the regular medical floor. He is currently sitting up in bed. Awake and alert in no acute distress. He is maintaining good O2 saturations in the 90s on 3 L/min per nasal cannula. He remains on antibiotics in the form of Unasyn. He is being nourished with Glucerna at 51 mL/h which is his goal. He is continued on bronchodilators. Anticoagulated with Eliquis. Normal saline at 100 MLS per hour. White count 10.8. Hemoglobin 9.2. Platelets 307. Sodium 147. Potassium 6.3. BUN 84. Creatinine 2.3. Glucose 105. The patient is seen today April 20, 2024 in follow-up on the regular medical floor. He is currently sitting up at the bedside. Awake and alert in no acute distress. Maintaining good O2 saturations in the 90s on 4 L/min per nasal cannula. He remains on Glucerna at 51 mL/h which is goal. 0.45% normal saline at 75 MLS per hour. Potassium 5.6. Bicarb 30. BUN 90. Creatinine 2.4. Glucose 120. He received Lokelma yesterday for his hyperkalemia. Right foot cultures revealed no growth. Sputum culture revealed Jenae. He continues on Unasyn per ID service. He remains on bronchodilators. Anticoagulated with Eliquis. Remains on oral diuretics. The patient is seen today April 21, 2024 in follow-up on the regular medical floor. He is awake and alert in no acute distress. Sitting up at the bedside. Denies any worsening shortness of breath, cough or congestion. Continues to maintain good O2 saturations in the upper 90s on 4 L/min per nasal cannula. He is afebrile. Hemodynamically stable. White count 11.0. Hemoglobin 6.8. Platelets 324. Sodium 143. Potassium 5.9. Bicarb 29. BUN 98. Creatinine 2.4. Glucose 127. Nephrology is following. He remains on bronchodilators and Unasyn. The patient is seen today April 22, 2024 in follow-up on the regular medical floor. He is currently sitting up at the bedside. Awake and alert in no acute distress. He is receiving 2 units of packed red blood cells for hemoglobin of 6.4 today. White count 10.7. Platelets 308. Sodium 141. Potassium 5.8. Bicarb 28. BUN 107. Creatinine 2.7. Glucose 150. He remains on Unasyn. Continued on bronchodilators. Remains on Lokelma for his hyperkalemia. Receiving folate acid. The patient is seen today April 23, 2024 in follow-up on the regular medical floor. He is awake and alert in no acute distress. Maintaining O2 saturations in the 90s on 2 L/min per nasal cannula. Receiving normal saline at 20 MLS per hour. Continued on Nepro PEG tube feedings at 43 mL/h which is goal. He is status post 2 units of packed red blood cells. Hemoglobin 6.0 today. To receive 1 unit of packed red blood cells today unit. GI service is following. White count 13.7. Platelets 300. Sodium 141. Potassium 5.0. Bicarb 30. BUN 109. Creatinine 2.5. Glucose 146. He remains on Unasyn. Remains on Lokelma. The patient is seen today 04/24/2020 for follow-up on the regular medical floor. He is currently resting in bed. He has been having issues with anemia and his hemoglobin was 6.3 again today. He is receiving his fourth unit of packed red blood cells. He has received 2-1/2 L of fluid resuscitation. He is awaiting EGD/colonoscopy today. He remains on Unasyn. Continued on bronchodilators. Remains on Lokelma. white count 13.9. Platelets 323. Sodium 145. Potassium 5.3. Bicarb 27. BUN 89. Creatinine 2.3. Glucose 129. The patient is seen today April 27, 2024 in follow-up on the regular medical floor. He is currently awake and alert in no acute distress. He is sitting up in a chair at the bedside. He is maintaining good O2 saturations in the 90s on 3 L/min per nasal cannula. He is being nourished with Nepro at 43 mL/h. He is status post 5 units of packed red blood cells this admission. No further bleeding noted. White count 9.3. Hemoglobin 8.1. Platelets 292. Sodium 144. Potassium 4.8. Bicarb 29. BUN 50. Creatinine 1.9. Glucose 101. He remains on antibiotics in the form of Unasyn. Continued on bronchodilators. The patient is seen today April 28, 2024 in follow-up on the regular medical floor. He is sitting up in bed. Awake and alert in no acute distress. Asking about going home. He denies any shortness of breath, cough or congestion. He is maintaining good O2 saturations in the 90s on 2 L/min per nasal cannula. He is status post 5 units of packed red blood cells this admission. Current hemoglobin 8.1. Platelets 311. White count 9.7. Sodium 142. Potassium 4.7. Bicarb 28. BUN 45. Creatinine 2.0. Glucose 119. He remains on bronchodilators. Remains on Unasyn per ID service. Objective - Vital Signs Vital signs: Vital Signs Temp 97.6 F 04/28/24 07:02 Pulse 125 H 04/28/24 08:00 Resp 22 04/28/24 08:00 BP 129/83 04/28/24 07:02 Pulse Ox 84 L 04/28/24 07:02 FiO2 Intake & Output 04/27/24 04/28/24 04/28/24 18:59 06:59 18:59 Output Total 425 Balance -425 Weight 104.3 kg Output: Urine 425 Other: Voiding Method Toilet Toilet Toilet # Voids 1 # Bowel Movements 1 - Exam GENERAL EXAM: Alert, 63-year-old male, sitting up in bed, on 2 L nasal cannula, in no apparent distress. HEAD: Normocephalic. EYES: Normal reaction of pupils, equal size. NOSE: Clear with pink turbinates. THROAT: No erythema or exudates. NECK: No masses, no JVD. CHEST: No chest wall deformity. LUNGS: Equal air entry with no crackles, wheeze, rhonchi or dullness. CVS: S1 and S2 normal with no audible murmur, regular rhythm. ABDOMEN: PEG tube exit site clean and dry. No hepatosplenomegaly, normal bowel sounds, no guarding or rigidity. SPINE: No scoliosis or deformity SKIN: Evidence of purulent drainage noted at the site of a previous amputation of the big toe and second toe on the right foot CENTRAL NERVOUS SYSTEM: No focal deficits, tone is normal in all 4 extremities. EXTREMITIES: Right foot dressing dry and intact. There is no peripheral edema. Peripheral pulses are intact. - Labs CBC & Chem 7: 04/28/24 04:31 04/28/24 04:31 Labs: Abnormal Lab Results - Last 24 Hours (Table) 04/27/24 04/27/24 04/28/24 Range/Units 11:13 18:03 04:31 RBC 2.59 L (4.40-5.60) X 10*6/uL Hgb 8.1 L (13.0-17.0) g/dL Hct 27.0 L (39.6-50.0) % MCV 104.2 H (80.0-97.0) FL MCHC 30.0 L (32.0-37.0) g/dL RDW 23.6 H (11.5-14.5) % Immature Gran # 0.08 H (0.00-0.04) X 10*3/uL Monocytes # 1.11 H (0.20-1.00) X 10*3/uL NRBC/100 WBC Diff 0.28 H (0.00-0.01) X 10*3/uL BUN (9.0-27.0) mg/dL Creatinine (0.6-1.5) mg/dL Est GFR (CKD-EPI) (>=60) BUN/Creatinine Ratio (12.00-20.00) Ratio Glucose (70-110) mg/dL POC Glucose (mg/dL) 121 H 118 H (70-110) mg/dL Calcium (8.7-10.3) mg/dL AST (14-35) U/L ALT (10-49) U/L Total Protein (6.2-8.2) g/dL Albumin (3.8-4.9) g/dL Albumin/Globulin Ratio (1.60-3.17) Ratio 04/28/24/ Range/Units 04:31 05:56 RBC (4.40-5.60) X 10*6/uL Hgb (13.0-17.0) g/dL Hct (39.6-50.0) % MCV (80.0-97.0) FL MCHC (32.0-37.0) g/dL RDW (11.5-14.5) % Immature Gran # (0.00-0.04) X 10*3/uL Monocytes # (0.20-1.00) X 10*3/uL NRBC/100 WBC Diff (0.00-0.01) X 10*3/uL BUN 45.1 H (9.0-27.0) mg/dL Creatinine 2.0 H (0.6-1.5) mg/dL Est GFR (CKD-EPI) 37 L (>=60) BUN/Creatinine Ratio 22.55 H (12.00-20.00) Ratio Glucose 119 H (70-110) mg/dL POC Glucose (mg/dL) 154 H (70-110) mg/dL Calcium 8.5 L (8.7-10.3) mg/dL AST 61 H (14-35) U/L ALT 63 H (10-49) U/L Total Protein 5.4 L (6.2-8.2) g/dL Albumin 3.2 L (3.8-4.9) g/dL Albumin/Globulin Ratio 1.45 L (1.60-3.17) Ratio Assessment and Plan Assessment: Acute hypoxic respiratory failure secondary to an acute exacerbation of systolic congestive heart failure ejection fraction 35 to 40% Acute cellulitis of right foot with previous amputation of big toe and second toe, culture revealed no growth Acute on chronic stage IV kidney disease, baseline creatinine is in the range of 2.0 since 2019 Anemia suspect secondary to above, receiving a 4th unit of packed red blood cell s Hypotension secondary to anemia, received 2-1/2 L of fluid resuscitation, midodrine added, received 5 units of packed red blood cells this admission. Recovered. EGD revealed no evidence of peptic ulcer disease or esophagitis. No evidence of active bleeding. Intact internal bumper of the PEG tube. Colonoscopy revealed 3 small sigmoid colon polyps not removed, colon appeared normal. No active bleeding. Hyperkalemia secondary to above, remains on Lokelma Hypernatremia History of peripheral vessel occlusive disease and previous stenting of right SFA and right popliteal artery Severe pulmonary hypertension Paroxysmal atrial fibrillation, anticoagulated with Eliquis History of CVA with residual dysphagia requiring PEG tube placement Type 2 diabetes Chronic and ongoing tobacco dependence Plan: The patient was seen and evaluated Labs and medications reviewed Stable on 2 L nasal cannula Could be evaluated for possible home oxygen Being nourished with Nepro tube feedings Plan is for home with home care at discharge Pulmonary will sign off the case This patient was seen independently by the pulmonary nurse practitioner addressing pulmonary issues I have personally seen and examined the patient, performed the documentation and the assessment and plan as written. Number of minutes spent on the visit: 22.
[2024-04-28] MEDS: AMIODARONE 100 MG TAB PO STA (11:18)
[2024-04-28 11:49] LABS: Glucose,Whole Blood 133 mg/dL (70-110)
--- NOTE | 2024-04-28 11:59 | P.PN ---
Subjective Progress Note Date: 04/28/24 HISTORY OF PRESENT ILLNESS: This is a 63-year-old male with a past medical history significant for paro xysmal atrial fibrillation, peripheral arterial disease, hypertension, hyperlipidemia, and diabetes. Patient follows in the office with Dr. Gonzalez. We have been asked to see the patient in consultation for elevated troponin. Patient examined at the bedside. The patient presented to the hospital with a chief complaint of shortness of breath. Patient states he has been feeling short of breath for the past couple weeks. He states that he checked his oxygen saturation at home and it was found to be in the high 80s. The patient denies having any chest pain or pressure. Patient was found to have elevated D-dimer of 2.10. He underwent VQ scan which was negative for pulmonary embolism. Vital signs are stable. It is noted that the patient underwent balloon angioplasty and stenting of right SFA and right popliteal. DIAGNOSTICS: - EKG reveals atrial fibrillation with controlled ventricular rate. - Chest xray cardiomegaly and mild pulmonary vascular congestion. - Laboratory data: WBC 8.7. Hemoglobin 11.4. Platelet count 283. D-dimer 2.10. Sodium 139. Potassium 4.9. BUN 41. Creatinine 2.01. Troponin 0.036. 0.038. 0.043. - Current home cardiac medications include amiodarone 100 mg daily, Eliquis 2.5 mg twice a day, Plavix 75 mg daily, losartan 25 mg daily, rosuvastatin 20 mg daily, metoprolol tartrate 50 mg twice a day. - Most recent echocardiogram obtained in June 2021 revealed ejection fraction 55 to 60%, severe pulmonary hypertension 04/14/2024 Patient examined this morning. Patient currently denies chest pain or pressure. He reports improvement in his shortness of breath. Echocardiogram completed revealing ejection fraction 35 to 40%, mild MR, mild TR. 04/15/2024 Patient examined this morning at bedside. Patient currently denies chest pain or pressure. He denies shortness of breath. Vital signs are stable. 04/23 Cardiology was re-counseled that secondary to anemia and recommendations for blood thinners. Patient denies any chest pain or pressure. He does feel significantly short of breath. Hemoglobin down to 6.4 and packed red blood cells were reordered. He states he is feeling sick. And tired and is questioning whether he even wants blood transfusions. He denies any hematochezia or melena. 04/24/2024 patient examined this morning to bedside. Patient currently denies chest pain or pressure. He denies shortness of breath. Hemoglobin today 6.3. He is scheduled to undergo endoscopy today. 04/27 Patient was previously seen by cardiology and signed off on 04/24. We have been reconsulted for tachycardia and hypotension. EKG is atrial tachycardia versus junctional rhythm 122 bpm. Blood pressure 125/67 but previously during the ght, patient was 88/56. Repeat blood work reveals hemoglobin 8.1, BUN 49 creatinine 1.9. Patient is currently on Lopressor 50 mg twice daily per PEG tube which will be increased frequency to 3 times daily. Patient has also been on midodrine as ordered by pulmonary medicine. 04/28 Telemetry reviewed appears to be atrial tachycardia in the 120s. Yesterday, Lopressor 50 mg was increased frequency to 3 times daily. Blood pressure 129/83, pulse ox 93% on 2 L nasal cannula. Repeat blood work reveals hemoglobin of 8.1. BUN 45 creatinine 2. PHYSICAL EXAM: VITAL SIGNS: Reviewed. GENERAL: Well-developed in no acute distress. LUNGS: Respirations even and unlabored. Lungs essentially clear to auscultation bilaterally. HEART: Irregular rate and rhythm. S1 and S2 heard. Tachycardic. ABDOMEN: Soft. Nondistended. Nontender. EXTREMITIES: No clubbing or cyanosis. Peripheral pulses intact. No lower extremity edema NEUROLOGIC: Awake and alert. ASSESSMENT: Atrial tachycardia Shortness of breath, etiology unclear, VQ scan negative for PE, not volume overloaded on clinical examination Acute hypoxic respiratory failure requiring supplemental oxygen Abnormal troponins, flat, type II CT secondary to oxygen supply and demand mismatch Recent balloon angioplasty and stenting of right SFA and right popliteal artery, 04/08/2024 Severe pulmonary hypertension Peripheral arterial disease Paroxysmal atrial fibrillation History of CVA Hypertension Hyperlipidemia Diabetes History of PEG tube placement New onset cardiomyopathy, ischemic versus nonischemic Anemia PLAN: Continue current cardiac medications: Aspirin 81 mg daily, atorvastatin 40 mg daily, Plavix 75 mg daily Continue metoprolol tartrate 50 mg 3 times daily Increase amiodarone to 200 mg daily Patient's Eliquis has been placed on hold due to anemia Further recommendations as patient progresses. Nurse practitioner note has been reviewed by physician. Signing provider agrees with the documented findings, assessment, and plan of care documented by CHEMICAL LABORATORY TECHNICIAN as a scribe. Objective - Vital Signs Vital signs: Vital Signs Temp 97.6 F 04/28/24 07:02 Pulse 95 04/28/24 10:00 Resp 18 04/28/24 10:42 BP 129/83 04/28/24 07:02 Pulse Ox 93 L 04/28/24 10:42 FiO2 Intake & Output 04/27/24 04/28/24 04/28/24 18:59 06:59 18:59 Output Total 425 Balance -425 Weight 104.3 kg Output: Urine 425 Other: Voiding Method Toilet Toilet Toilet # Voids 1 # Bowel Movements 1 - Labs CBC & Chem 7: 04/28/24 04:31 04/28/24 04:31 Labs: Abnormal Lab Results - Last 24 Hours (Table) 04/27/24 04/28/24 04/28/24 Range/Units 18:03 04:31 04:31 RBC 2.59 L (4.40-5.60) X 10*6/uL Hgb 8.1 L (13.0-17.0) g/dL Hct 27.0 L (39.6-50.0) % MCV 104.2 H (80.0-97.0) FL MCHC 30.0 L (32.0-37.0) g/dL RDW 23.6 H (11.5-14.5) % Immature Gran # 0.08 H (0.00-0.04) X 10*3/uL Monocytes # 1.11 H (0.20-1.00) X 10*3/uL NRBC/100 WBC Diff 0.28 H (0.00-0.01) X 10*3/uL BUN 45.1 H (9.0-27.0) mg/dL Creatinine 2.0 H (0.6-1.5) mg/dL Est GFR (CKD-EPI) 37 L (>=60) BUN/Creatinine Ratio 22.55 H (12.00-20.00) Ratio Glucose 119 H (70-110) mg/dL POC Glucose (mg/dL) 118 H (70-110) mg/dL Calcium 8.5 L (8.7-10.3) mg/dL AST 61 H (14-35) U/L ALT 63 H (10-49) U/L Total Protein 5.4 L (6.2-8.2) g/dL Albumin 3.2 L (3.8-4.9) g/dL Albumin/Globulin Ratio 1.45 L (1.60-3.17) Ratio 04/28/24 04/28/24 Range/Units 05:56 11:48 RBC (4.40-5.60) X 10*6/uL Hgb (13.0-17.0) g/dL Hct (39.6-50.0) % MCV (80.0-97.0) FL MCHC (32.0-37.0) g/dL RDW (11.5-14.5) % Immature Gran # (0.00-0.04) X 10*3/uL Monocytes # (0.20-1.00) X 10*3/uL NRBC/100 WBC Diff (0.00-0.01) X 10*3/uL BUN (9.0-27.0) mg/dL Creatinine (0.6-1.5) mg/dL Est GFR (CKD-EPI) (>=60) BUN/Creatinine Ratio (12.00-20.00) Ratio Glucose (70-110) mg/dL POC Glucose (mg/dL) 154 H 133 H (70-110) mg/dL Calcium (8.7-10.3) mg/dL AST (14-35) U/L ALT (10-49) U/L Total Protein (6.2-8.2) g/dL Albumin (3.8-4.9) g/dL Albumin/Globulin Ratio (1.60-3.17) Ratio
--- NOTE | 2024-04-28 12:34 | P.PN ---
Subjective patient is seen for follow-up for acute kidney injury and chronic kidney disease. No significant complaints today. Serum creatinine stable at about 2.0 mg/dL. Objective - Vital Signs Vital signs: Vital Signs Temp 97.6 F 04/28/24 07:02 Pulse 95 04/28/24 10:00 Resp 18 04/28/24 10:42 BP 129/83 04/28/24 07:02 Pulse Ox 93 L 04/28/24 10:42 FiO2 Intake & Output 04/27/24 04/28/24 04/28/24 18:59 06:59 18:59 Output Total 425 Balance -425 Weight 104.3 kg Output: Urine 425 Other: Voiding Method Toilet Toilet Toilet # Voids 1 # Bowel Movements 1 - Exam patient is awake, comfortable, no acute distress. Examination of the heart S1 and S2 Examination lungs bilateral breath sounds are heard Abdomen is soft nontender Examination lower extremities shows no significant edema. - Labs CBC & Chem 7: 04/28/24 04:31 04/28/24 04:31 Labs: Abnormal Lab Results - Last 24 Hours (Table) 04/27/24 04/28/24 04/28/24 Range/Units 18:03 04:31 04:31 RBC 2.59 L (4.40-5.60) X 10*6/uL Hgb 8.1 L (13.0-17.0) g/dL Hct 27.0 L (39.6-50.0) % MCV 104.2 H (80.0-97.0) FL MCHC 30.0 L (32.0-37.0) g/dL RDW 23.6 H (11.5-14.5) % Immature Gran # 0.08 H (0.00-0.04) X 10*3/uL Monocytes # 1.11 H (0.20-1.00) X 10*3/uL NRBC/100 WBC Diff 0.28 H (0.00-0.01) X 10*3/uL BUN 45.1 H (9.0-27.0) mg/dL Creatinine 2.0 H (0.6-1.5) mg/dL Est GFR (CKD-EPI) 37 L (>=60) BUN/Creatinine Ratio 22.55 H (12.00-20.00) Ratio Glucose 119 H (70-110) mg/dL POC Glucose (mg/dL) 118 H (70-110) mg/dL Calcium 8.5 L (8.7-10.3) mg/dL AST 61 H (14-35) U/L ALT 63 H (10-49) U/L Total Protein 5.4 L (6.2-8.2) g/dL Albumin 3.2 L (3.8-4.9) g/dL Albumin/Globulin Ratio 1.45 L (1.60-3.17) Ratio 04/28/24 04/28/24 Range/Units 05:56 11:48 RBC (4.40-5.60) X 10*6/uL Hgb (13.0-17.0) g/dL Hct (39.6-50.0) % MCV (80.0-97.0) FL MCHC (32.0-37.0) g/dL RDW (11.5-14.5) % Immature Gran # (0.00-0.04) X 10*3/uL Monocytes # (0.20-1.00) X 10*3/uL NRBC/100 WBC Diff (0.00-0.01) X 10*3/uL BUN (9.0-27.0) mg/dL Creatinine (0.6-1.5) mg/dL Est GFR (CKD-EPI) (>=60) BUN/Creatinine Ratio (12.00-20.00) Ratio Glucose (70-110) mg/dL POC Glucose (mg/dL) 154 H 133 H (70-110) mg/dL Calcium (8.7-10.3) mg/dL AST (14-35) U/L ALT (10-49) U/L Total Protein (6.2-8.2) g/dL Albumin (3.8-4.9) g/dL Albumin/Globulin Ratio (1.60-3.17) Ratio Assessment and Plan Assessment: 1. Acute kidney injury secondary to ATN secondary to acute blood loss anemia. Creatinine peaked at 2.7 this admission and stable at 2.0 today. Elevated BUN secondary to chronic kidney disease as well as GI bleed. No hydronephrosis noted on kidney ultrasound. UA fairly benign. 2. Chronic kidney disease stage IV baseline creatinine 1.8-2.0 secondary to solitary right kidney. History of left nephrectomy. 3. Chronic systolic CHF ejection fraction of 35 to 40% with severe pulmonary hypertension. 4. Diabetes mellitus. 5. Hypernatremia from lack of oral water intake. Improved. 6. Hyperkalemia secondary to acute kidney injury and GI bleed. Resolved. 7. Peripheral vascular disease. 8. Acute blood loss anemia with hemoglobin. No active bleeding. Status post blood transfusions and IV DDAVP. Also on Aranesp. GI following. Plan: continue to monitor renal function periodically.
--- NOTE | 2024-04-28 16:47 | P.PN ---
Subjective Progress Note Date: 04/28/24 Everett Juárez, is a 63-year-old male who presented to [facility] emergency room with a chief complaint of worsening shortness of breath and generalized weakness, patient was recently admitted to [facility] with peripheral vascular disease right foot osteomyelitis and underwent stenting of the right SFA by Dr. Dillard, he has a previous history of right great toe amputation. He was evaluated in the emergency room vital examination on presentation revealed a temperature of 98.9 pulse 110 respiration 18 blood pressure 114/72 pulse ox 96% on room air Laboratory data reveals a white blood count of 8.7 hemoglobin 11.4 platelet count 283 sodium 139 potassium 4.9 chloride 110 CO2 23 BUN 41 creatinine 2.01 D- dimer was elevated at 2.10, troponin level was elevated at 0.043 Testing in the emergency room revealed chest x-ray done in the emergency room revealed cardiomegaly and mild pulmonary vascular congestion suggestive of congestive heart failure, VQ scan showed no evidence for pulmonary embolism, EKG revealed atrial fibrillation with moderate T wave abnormalities suggestive of lateral ischemia. Patient was admitted to medical floor for further evaluation and treatment Past medical history is significant for history of atrial fibrillation, history of peripheral arterial disease with previous history of right great toe amputation, history of COPD, history of diabetes mellitus type 2, history of hyperkalemia, history of chronic kidney disease. On review of systems patient is alert and oriented x 3 in no apparent distress, he is complaining of generalized weakness, complaining of shortness of breath, which is worse with activity, and complaining of right foot pain, otherwise he denies any complaints, there is no fever or chills no headache or dizziness no chest pain, no cough no nausea or vomiting no abdominal pain no diarrhea and no urinary symptoms On 04/14/2024 patient is alert and oriented 3.Patient remains on IV Unasyn and IV Lasix. 2-D echo completed showing an EF of 35-40%. Current vital signs temp 98.3, heart 81, respiratory rate 18, blood pressure 135/67 with a pulse ox of 100% on 3 L. Patient reports improvement with shortness of breath. Patient denies nausea vomiting or diarrhea. Patient denies any urinary burning or frequency On 04/15/2024 Patient is alert and oriented 3. Patient remains on IV Unasyn. Patient has been transitioned to by mouth Lasix.Current vital signs temp 97.1, heart rate 98, respiratory rate 18, blood pressure 121/79 with pulse ox 96% on 3 L. Patient denies chest pain or shortness breath. Patient denies nausea vomiting or diarrhea. Patient denies any urinary burning or frequency. On 04/16/2024 he is alert and oriented x 3 in no apparent distress he reports improvement in his shortness of breath there is no fever or chills no headache or dizziness no chest pain no cough no nausea or vomiting no abdominal pain no diarrhea and no urinary symptoms. On 04/17/2024 patient is alert and oriented x 3. Current vital signs Temp 98.1, heart rate 100, respiratory rate 16, blood pressure 153/81 with a pulse ox of 97% on 2 L. Patient remains on IV Unasyn. Awaiting final antibiotic recommenda tions per ID. Patient denies chest pain or shortness of breath. Patient denies nausea vomiting or diarrhea. Patient denies any urinary burning or frequency. On 04/18/2024 patient was seen and examined on the medical floor he is alert and oriented x 3 in no apparent distress there is no fever or chills no headache or dizziness no chest pain no shortness of breath no cough no nausea or vomiting no abdominal pain no diarrhea no urinary symptoms, he is still maintained on oxygen supplements, patient need to be assessed for need for home oxygen, he is also maintained on tube feeding, case management director is working on arrangement for tube feeding at home. Otherwise continue with current management will recheck in a.m.. On 04/19/2024 patient is alert and oriented x 3. Patient is maintained on 3 L n roberth cannula. Patient also maintained on IV Unasyn. Awaiting final IV recommendations from infectious disease. Current vital signs Temp 98.2, heart rate 82, blood pressure 116/70 with a pulse ox of 97% on 3 L patient denies chest pain or shortness of breath. Patient denies nausea vomiting or diarrhea. Patient denies any urinary burning or frequency On 04/20/2024 patient was seen and examined on the medical floor he is alert and oriented x 3 in no apparent distress, there is no fever or chills no headache or dizziness no chest pain no shortness of breath no cough no nausea or vomiting no abdominal pain no diarrhea no urinary symptoms, patient is still having difficulty with hyperkalemia, he is maintained on IV fluids and [facility] nephrology are following, will recheck labs in a.m. On 04/21/2024 patient is alert and oriented x 3. Potassium remains elevated at 5.9 awaiting further recommendations from nephrology standpoint. Patient denies chest pain or shortness of breath. Patient denies nausea vomiting or diarrhea. Patient denies any urinary burning or frequency On 04/22/2024 patient is alert and oriented x 3. Patient received 1 unit PRBCs for hemoglobin of 6.8 yesterday. GI services were consulted stool for occult blood ordered. Nephrology service is following for elevated potassium level. At this time patient denies chest pain or shortness of breath. Patient denies nausea vomiting or diarrhea. Patient denies any urinary burning frequency. On 04/23/2024 patient was seen and examined on the medical floor he is alert and oriented x 3 in no apparent distress, his hemoglobin today is again 6.01 unit of red blood cell transfusion was ordered, he was reevaluated by gastroenterology and plans are for EGD and colonoscopy tomorrow, otherwise he denies any complaints there is no fever or chills no headache or dizziness no chest pain no shortness of breath no cough no nausea or vomiting no abdominal pain no diarrhea no urinary symptoms On 04/24/2024 patient is alert and oriented 3. Plans for EGD and colonoscopy today with GI services.Patient had episodes of hypotension throughout night received IV bolus. Continue to transfuse patient for hemoglobin less than 7. Patient remains on IV Unasyn. This time patient denies chest pain or shortness breath. Patient denies nausea vomiting or diarrhea. Patient denies any urinary burning or frequency. On 04/25/2024 patient was seen and examined on the medical floor he is alert and oriented x 3 in no apparent distress there is no fever or chills no headache or dizziness no chest pain no shortness of breath no cough no nausea or vomiting no abdominal pain no diarrhea no urinary symptoms, hemoglobin is down again to 6.7 patient will be given 1 unit of red blood cell transfusion, EGD and colonoscopy results done yesterday were reviewed, at this time will consult Dr. Jackson regarding recurrent pneumonia requiring multiple red blood cell transfusion, continue with tube feeding at this time. On 04/26/2024 patient is alert and oriented x 3. Hemoglobin today 8.0. Awaiting oncology input. Patient denies chest pain or shortness of breath. Patient denies nausea vomiting or diarrhea. Patient denies any urinary burning or frequency. Current vital signs Temp 97.7, heart rate 91, respiratory rate 16, blood pressure 118/60 with pulse ox of 98% on 4 L On 04/27/2024 patient was seen and examined on the medical floor he is alert and oriented x 3 in no apparent distress he is complaining of generalized weakness otherwise he denies any specific complaints there is no fever or chills no headache or dizziness no chest pain no shortness of breath no cough no nausea or vomiting no abdominal pain no diarrhea no urinary symptoms. On 04/28/2024 patient was seen and examined on the medical floor he is alert and oriented x 3 in no apparent distress there is no fever or chills no headache or dizziness no chest pain no shortness of breath no cough no nausea or vomiting no abdominal pain no diarrhea and no urinary symptoms, hemoglobin is stabilizing around 8 will continue to monitor Objective - Vital Signs Vital signs: Vital Signs Temp 97.3 F L 04/28/24 14:20 Pulse 122 H 04/28/24 14:20 Resp 19 04/28/24 14:20 BP 114/69 04/28/24 14:20 Pulse Ox 99 04/28/24 14:20 FiO2 Intake & Output 04/27/24 04/28/24 04/28/24 18:59 06:59 18:59 Output Total 425 Balance -425 Weight 104.3 kg 104.3 kg Output: Urine 425 Other: Voiding Method Toilet Toilet Toilet # Voids 1 # Bowel Movements 1 - Exam In general patient is alert and oriented x 3 in no distress HEENT head normocephalic and atraumatic Neck is supple no JVD no goiter no lymphadenopathy no carotid bruit Chest examination reveals a scattered crackles in both lung [place] no wheezing Cardiac exam reveals irregular heart sounds S1 and S2 no gallops no murmurs Abdomen is soft nontender no organomegaly with normal bowel sounds Extremity exam reveals no edema no cyanosis or clubbing, the right great toe is amputated with a large ulcer at the base of the amputated right great toe with purulent discharge Neurological examination reveals no gross focal deficits - Labs CBC & Chem 7: 04/28/24 04:31 04/28/24 04:31 Labs: Abnormal Lab Results - Last 24 Hours (Table) 04/27/24 04/28/24 04/28/24 Range/Units 18:03 04:31 04:31 RBC 2.59 L (4.40-5.60) X 10*6/uL Hgb 8.1 L (13.0-17.0) g/dL Hct 27.0 L (39.6-50.0) % MCV 104.2 H (80.0-97.0) FL MCHC 30.0 L (32.0-37.0) g/dL RDW 23.6 H (11.5-14.5) % Immature Gran # 0.08 H (0.00-0.04) X 10*3/uL Monocytes # 1.11 H (0.20-1.00) X 10*3/uL NRBC/100 WBC Diff 0.28 H (0.00-0.01) X 10*3/uL BUN 45.1 H (9.0-27.0) mg/dL Creatinine 2.0 H (0.6-1.5) mg/dL Est GFR (CKD-EPI) 37 L (>=60) BUN/Creatinine Ratio 22.55 H (12.00-20.00) Ratio Glucose 119 H (70-110) mg/dL POC Glucose (mg/dL) 118 H (70-110) mg/dL Calcium 8.5 L (8.7-10.3) mg/dL AST 61 H (14-35) U/L ALT 63 H (10-49) U/L Total Protein 5.4 L (6.2-8.2) g/dL Albumin 3.2 L (3.8-4.9) g/dL Albumin/Globulin Ratio 1.45 L (1.60-3.17) Ratio 04/28/24 04/28/24 Range/Units 05:56 11:48 RBC (4.40-5.60) X 10*6/uL Hgb (13.0-17.0) g/dL Hct (39.6-50.0) % MCV (80.0-97.0) FL MCHC (32.0-37.0) g/dL RDW (11.5-14.5) % Immature Gran # (0.00-0.04) X 10*3/uL Monocytes # (0.20-1.00) X 10*3/uL NRBC/100 WBC Diff (0.00-0.01) X 10*3/uL BUN (9.0-27.0) mg/dL Creatinine (0.6-1.5) mg/dL Est GFR (CKD-EPI) (>=60) BUN/Creatinine Ratio (12.00-20.00) Ratio Glucose (70-110) mg/dL POC Glucose (mg/dL) 154 H 133 H (70-110) mg/dL Calcium (8.7-10.3) mg/dL AST (14-35) U/L ALT (10-49) U/L Total Protein (6.2-8.2) g/dL Albumin (3.8-4.9) g/dL Albumin/Globulin Ratio (1.60-3.17) Ratio Assessment and Plan Plan: Worsening shortness of breath, multifactorial, possibly related to acute congestive heart failure, and underlying COPD Atrial fibrillation, with rapid ventricular response on presentation, heart rate was 110 New onset cardiomyopathy. Anemia status post EGD and colonoscopy on 04/24/2024 Generalized weakness Large ulcer at the base of the right great toe with purulent discharge, patient was maintained on oral Augmentin as outpatient, infectious disease consultation requested Underlying history of peripheral arterial disease, with recent history of angioplasty and stent placement to the right lower extremity on 04/08/2024 Underlying history of diabetes mellitus Underlying history of chronic obstructive pulmonary disease Underlying history of chronic kidney disease Underlying history of hyperkalemia Underlying history of chronic continued tobacco abuse At this time patient is admitted to telemetry floor Home medications reviewed and reordered Consultation for cardiology and pulmonary were requested in the emergency room For DVT prophylaxis, patient is maintained on scds (eliquis on hold due to anemia) Will add infectious disease consultation in regard to base of right great toe ulcer Will follow closely
[2024-04-28 18:06] LABS: Glucose,Whole Blood 137 mg/dL (70-110)
[2024-04-28 23:54] LABS: Glucose,Whole Blood 125 mg/dL (70-110)
[2024-04-29 05:50] LABS: Glucose,Whole Blood 131 mg/dL (70-110)
[2024-04-29] MEDS: AMIODARONE 200 MG TAB PEG/G-TUBE SCH (09:27)
--- NOTE | 2024-04-29 10:26 | P.PN ---
Subjective Progress Note Date: 04/29/24 Everett Juárez, is a 63-year-old male who presented to [facility] emergency room with a chief complaint of worsening shortness of breath and generalized weakness, patient was recently admitted to [facility] with peripheral vascular disease right foot osteomyelitis and underwent stenting of the right SFA by Dr. Dillard, he has a previous history of right great toe amputation. He was evaluated in the emergency room vital examination on presentation revealed a temperature of 98.9 pulse 110 respiration 18 blood pressure 114/72 pulse ox 96% on room air Laboratory data reveals a white blood count of 8.7 hemoglobin 11.4 platelet count 283 sodium 139 potassium 4.9 chloride 110 CO2 23 BUN 41 creatinine 2.01 D- dimer was elevated at 2.10, troponin level was elevated at 0.043 Testing in the emergency room revealed chest x-ray done in the emergency room revealed cardiomegaly and mild pulmonary vascular congestion suggestive of congestive heart failure, VQ scan showed no evidence for pulmonary embolism, EKG revealed atrial fibrillation with moderate T wave abnormalities suggestive of lateral ischemia. Patient was admitted to medical floor for further evaluation and treatment Past medical history is significant for history of atrial fibrillation, history of peripheral arterial disease with previous history of right great toe amputation, history of COPD, history of diabetes mellitus type 2, history of hyperkalemia, history of chronic kidney disease. On review of systems patient is alert and oriented x 3 in no apparent distress, he is complaining of generalized weakness, complaining of shortness of breath, which is worse with activity, and complaining of right foot pain, otherwise he denies any complaints, there is no fever or chills no headache or dizziness no chest pain, no cough no nausea or vomiting no abdominal pain no diarrhea and no urinary symptoms On 04/14/2024 patient is alert and oriented 3.Patient remains on IV Unasyn and IV Lasix. 2-D echo completed showing an EF of 35-40%. Current vital signs temp 98.3, heart 81, respiratory rate 18, blood pressure 135/67 with a pulse ox of 100% on 3 L. Patient reports improvement with shortness of breath. Patient denies nausea vomiting or diarrhea. Patient denies any urinary burning or frequency On 04/15/2024 Patient is alert and oriented 3. Patient remains on IV Unasyn. Patient has been transitioned to by mouth Lasix.Current vital signs temp 97.1, heart rate 98, respiratory rate 18, blood pressure 121/79 with pulse ox 96% on 3 L. Patient denies chest pain or shortness breath. Patient denies nausea vomiting or diarrhea. Patient denies any urinary burning or frequency. On 04/16/2024 he is alert and oriented x 3 in no apparent distress he reports improvement in his shortness of breath there is no fever or chills no headache or dizziness no chest pain no cough no nausea or vomiting no abdominal pain no diarrhea and no urinary symptoms. On 04/17/2024 patient is alert and oriented x 3. Current vital signs Temp 98.1, heart rate 100, respiratory rate 16, blood pressure 153/81 with a pulse ox of 97% on 2 L. Patient remains on IV Unasyn. Awaiting final antibiotic recommenda tions per ID. Patient denies chest pain or shortness of breath. Patient denies nausea vomiting or diarrhea. Patient denies any urinary burning or frequency. On 04/18/2024 patient was seen and examined on the medical floor he is alert and oriented x 3 in no apparent distress there is no fever or chills no headache or dizziness no chest pain no shortness of breath no cough no nausea or vomiting no abdominal pain no diarrhea no urinary symptoms, he is still maintained on oxygen supplements, patient need to be assessed for need for home oxygen, he is also maintained on tube feeding, case operator is working on arrangement for tube feeding at home. Otherwise continue with current management will recheck in a.m.. On 04/19/2024 patient is alert and oriented x 3. Patient is maintained on 3 L n roberth cannula. Patient also maintained on IV Unasyn. Awaiting final IV recommendations from infectious disease. Current vital signs Temp 98.2, heart rate 82, blood pressure 116/70 with a pulse ox of 97% on 3 L patient denies chest pain or shortness of breath. Patient denies nausea vomiting or diarrhea. Patient denies any urinary burning or frequency On 04/20/2024 patient was seen and examined on the medical floor he is alert and oriented x 3 in no apparent distress, there is no fever or chills no headache or dizziness no chest pain no shortness of breath no cough no nausea or vomiting no abdominal pain no diarrhea no urinary symptoms, patient is still having difficulty with hyperkalemia, he is maintained on IV fluids and [facility] nephrology are following, will recheck labs in a.m. On 04/21/2024 patient is alert and oriented x 3. Potassium remains elevated at 5.9 awaiting further recommendations from nephrology standpoint. Patient denies chest pain or shortness of breath. Patient denies nausea vomiting or diarrhea. Patient denies any urinary burning or frequency On 04/22/2024 patient is alert and oriented x 3. Patient received 1 unit PRBCs for hemoglobin of 6.8 yesterday. GI services were consulted stool for occult blood ordered. Nephrology service is following for elevated potassium level. At this time patient denies chest pain or shortness of breath. Patient denies nausea vomiting or diarrhea. Patient denies any urinary burning frequency. On 04/23/2024 patient was seen and examined on the medical floor he is alert and oriented x 3 in no apparent distress, his hemoglobin today is again 6.01 unit of red blood cell transfusion was ordered, he was reevaluated by gastroenterology and plans are for EGD and colonoscopy tomorrow, otherwise he denies any complaints there is no fever or chills no headache or dizziness no chest pain no shortness of breath no cough no nausea or vomiting no abdominal pain no diarrhea no urinary symptoms On 04/24/2024 patient is alert and oriented 3. Plans for EGD and colonoscopy today with GI services.Patient had episodes of hypotension throughout night received IV bolus. Continue to transfuse patient for hemoglobin less than 7. Patient remains on IV Unasyn. This time patient denies chest pain or shortness breath. Patient denies nausea vomiting or diarrhea. Patient denies any urinary burning or frequency. On 04/25/2024 patient was seen and examined on the medical floor he is alert and oriented x 3 in no apparent distress there is no fever or chills no headache or dizziness no chest pain no shortness of breath no cough no nausea or vomiting no abdominal pain no diarrhea no urinary symptoms, hemoglobin is down again to 6.7 patient will be given 1 unit of red blood cell transfusion, EGD and colonoscopy results done yesterday were reviewed, at this time will consult Dr. Jackson regarding recurrent pneumonia requiring multiple red blood cell transfusion, continue with tube feeding at this time. On 04/26/2024 patient is alert and oriented x 3. Hemoglobin today 8.0. Awaiting oncology input. Patient denies chest pain or shortness of breath. Patient denies nausea vomiting or diarrhea. Patient denies any urinary burning or frequency. Current vital signs Temp 97.7, heart rate 91, respiratory rate 16, blood pressure 118/60 with pulse ox of 98% on 4 L On 04/27/2024 patient was seen and examined on the medical floor he is alert and oriented x 3 in no apparent distress he is complaining of generalized weakness otherwise he denies any specific complaints there is no fever or chills no headache or dizziness no chest pain no shortness of breath no cough no nausea or vomiting no abdominal pain no diarrhea no urinary symptoms. On 04/28/2024 patient was seen and examined on the medical floor he is alert and oriented x 3 in no apparent distress there is no fever or chills no headache or dizziness no chest pain no shortness of breath no cough no nausea or vomiting no abdominal pain no diarrhea and no urinary symptoms, hemoglobin is stabilizing around 8 will continue to monitor On 04/29/2024 patient is alert and oriented 3.heart rate elevated at 121 this AM. Patient being followed by cardiology services was given by mouth amiodarone awaiting further recommendations from cardiology services. Hemoglobin remained stable at 8.1. Patient denies chest pain or shortness of breath. Patient denies nausea vomiting or diarrhea. Patient denies any urinary burning or frequency Objective - Vital Signs Vital signs: Vital Signs Temp 97.5 F L 04/29/24 07:05 Pulse 121 H 04/29/24 07:05 Resp 16 04/29/24 07:05 BP 99/64 04/29/24 07:05 Pulse Ox 97 04/29/24 08:59 FiO2 Intake & Output 04/28/24 04/29/24 04/29/24 18:59 06:59 18:59 Output Total 400 350 Balance -400 -350 Weight 104.3 kg 105.3 kg Output: Urine 400 350 Other: Voiding Method Toilet Toilet # Voids 1 1 1 - Exam In general patient is alert and oriented x 3 in no distress HEENT head normocephalic and atraumatic Neck is supple no JVD no goiter no lymphadenopathy no carotid bruit Chest examination reveals a scattered crackles in both lung [place] no wheezing Cardiac exam reveals irregular heart sounds S1 and S2 no gallops no murmurs Abdomen is soft nontender no organomegaly with normal bowel sounds Extremity exam reveals no edema no cyanosis or clubbing, the right great toe is amputated with a large ulcer at the base of the amputated right great toe with purulent discharge Neurological examination reveals no gross focal deficits - Labs CBC & Chem 7: 04/28/24 04:31 04/28/24 04:31 Labs: Abnormal Lab Results - Last 24 Hours (Table) 04/28/24 04/28/24 04/28/24 Range/Units 11:48 18:05 23:53 POC Glucose (mg/dL) 133 H 137 H 125 H (70-110) mg/dL 04/29/24 Range/Units 05:49 POC Glucose (mg/dL) 131 H (70-110) mg/dL Assessment and Plan Plan: Worsening shortness of breath, multifactorial, possibly related to acute congestive heart failure, and underlying COPD Atrial fibrillation, with rapid ventricular response on presentation, heart rate was 110 New onset cardiomyopathy. Anemia status post EGD and colonoscopy on 04/24/2024 Generalized weakness Large ulcer at the base of the right great toe with purulent discharge, patient was maintained on oral Augmentin as outpatient, infectious disease consultation requested Underlying history of peripheral arterial disease, with recent history of angioplasty and stent placement to the right lower extremity on 04/08/2024 Underlying history of diabetes mellitus Underlying history of chronic obstructive pulmonary disease Underlying history of chronic kidney disease Underlying history of hyperkalemia Underlying history of chronic continued tobacco abuse At this time patient is admitted to telemetry floor Home medications reviewed and reordered Consultation for cardiology and pulmonary were requested in the emergency room For DVT prophylaxis, patient is maintained on scds (eliquis on hold due to anemia) Will add infectious disease consultation in regard to base of right great toe ulcer Will follow closely
--- NOTE | 2024-04-29 10:42 | P.PN ---
Subjective Progress Note Date: 04/29/24 This is a 63-year-old white male with history of multiple medical problems including coronary artery disease, chronic atrial fibrillation, peripheral vessel occlusive disease, severe pulmonary hypertension, chronic obstructive pulmonary disease, patient normally sees Dr. Dillard on outpatient basis. Patient was never seen by a baggageman. Admitted this time with few days history of increased shortness of breath, and according to the his O2 saturation was down in the 60s. Patient was brought into the ER, chest x-ray showed evidence of pulmonary edema, VQ scan negative for pulmonary embolism, patient was admitted and this consult was initiated. Patient is not a great historian, most of the information was obtained from his , apparently the patient had history of CVA in the past, and he had a previous PEG tube placement Labs on admission showed relatively normal CBC, no leukocytosis, D-dimer was a bit elevated at 2.10 and renal profile was abnormal with BUN of 43 and creatinine 2. 01 however BNP level was 12,300 and troponin was 0.043. Since admission, the patient received 1 dose of Lasix, and he is at least 1.5 L negative fluid balance The patient is seen today April 14, 2024 in follow-up on the selective care unit. He is currently sitting up at the bedside. Awake and alert in no acute distress. Breathing a bit easier today compared to yesterday. Currently maintaining good O2 saturations in the upper 90s on 3 L/min per nasal cannula. He is afebrile. Hemodynamically stable. Echocardiogram reveals impaired left ventricular systolic function with an ejection fraction of 35 to 40%. Severe pulmonary hypertension. Moderate to severely dilated left atrium. Right first toe culture is pending. Currently on Unasyn. Glucose 125. Being nourished with Glucerna at 51 MLS per hour via his PEG tube. Anticoagulated with Eliquis. Remains on diuretics. Making adequate urine. The patient is seen today April 15, 2024 in follow-up on the selective care unit. He is awake and alert in no acute distress. Maintaining O2 saturations in the 90s on 3 L/min per nasal cannula. Hemodynamically stable. White count 8.4. Hemoglobin 11.2. Platelets 321. Sodium 143. Potassium 4.9. Bicarb 29. BUN 45. Creatinine 1.99. Glucose 126. He is continued on Unasyn. Anticoagulated with Eliquis. Remains on bronchodilators. Remains on oral diuretics. Continued on Glucerna via his PEG tube. Barium swallow is pending so the patient can continue on tube feedings in the outpatient setting Patient was evaluated today on 04/16/2024, patient is doing well, comfortable, not in any distress, on 3 L nasal cannula with O2 sats of 96%. WBC is 8.5 hemoglobin 10.5 electrolytes are relatively normal with potassium of 5.2 BUN is 48 creatinine 1.94, steadily improving since admission patient had a successful swallow evaluation study that came back unremarkable. The patient was seen today April 17, 2024 in follow-up on the selective care unit. He is currently resting comfortably in bed. Awake and alert in no acute distress. Maintaining O2 saturations in the 90s on 2 L/min per nasal cannula. Right foot culture results revealing no growth. White count 9.6. Hemoglobin 1 0.9. Platelets 305. Sodium 145. Potassium 5.4. Bicarb 32. BUN 56. Creatinine 1.99. Glucose 133. He remains on bronchodilators. Anticoagulated with Eliquis. Antibiotics in the form of Unasyn. Remains on Glucerna tube feedings. The patient is seen today April 18, 2024 in follow-up on the regular medical floor. He is currently sitting up at the bedside. Awake and alert in no acute distress. Maintaining O2 saturations in the 90s on 2 L/min per nasal cannula. He has been afebrile. Hemodynamically stable. He remains on Glucerna at 51 mL/h which is goal. He remains on antibiotics in the form of Unasyn. His right foot dressing is dry and intact. Glucose 140. He remains on bronchodilators. Oral diuretics. Anticoagulated with Eliquis. The patient is seen today April 19, 2024 in follow-up on the regular medical floor. He is currently sitting up in bed. Awake and alert in no acute distress. He is maintaining good O2 saturations in the 90s on 3 L/min per nasal cannula. He remains on antibiotics in the form of Unasyn. He is being nourished with Glucerna at 51 mL/h which is his goal. He is continued on bronchodilators. Anticoagulated with Eliquis. Normal saline at 100 MLS per hour. White count 10.8. Hemoglobin 9.2. Platelets 307. Sodium 147. Potassium 6.3. BUN 84. Creatinine 2.3. Glucose 105. The patient is seen today April 20, 2024 in follow-up on the regular medical floor. He is currently sitting up at the bedside. Awake and alert in no acute distress. Maintaining good O2 saturations in the 90s on 4 L/min per nasal cannula. He remains on Glucerna at 51 mL/h which is goal. 0.45% normal saline at 75 MLS per hour. Potassium 5.6. Bicarb 30. BUN 90. Creatinine 2.4. Glucose 120. He received Lokelma yesterday for his hyperkalemia. Right foot cultures revealed no growth. Sputum culture revealed Jenae. He continues on Unasyn per ID service. He remains on bronchodilators. Anticoagulated with Eliquis. Remains on oral diuretics. The patient is seen today April 21, 2024 in follow-up on the regular medical floor. He is awake and alert in no acute distress. Sitting up at the bedside. Denies any worsening shortness of breath, cough or congestion. Continues to maintain good O2 saturations in the upper 90s on 4 L/min per nasal cannula. He is afebrile. Hemodynamically stable. White count 11.0. Hemoglobin 6.8. Platelets 324. Sodium 143. Potassium 5.9. Bicarb 29. BUN 98. Creatinine 2.4. Glucose 127. Nephrology is following. He remains on bronchodilators and Unasyn. The patient is seen today April 22, 2024 in follow-up on the regular medical floor. He is currently sitting up at the bedside. Awake and alert in no acute distress. He is receiving 2 units of packed red blood cells for hemoglobin of 6.4 today. White count 10.7. Platelets 308. Sodium 141. Potassium 5.8. Bicarb 28. BUN 107. Creatinine 2.7. Glucose 150. He remains on Unasyn. Continued on bronchodilators. Remains on Lokelma for his hyperkalemia. Receiving folate acid. The patient is seen today April 23, 2024 in follow-up on the regular medical floor. He is awake and alert in no acute distress. Maintaining O2 saturations in the 90s on 2 L/min per nasal cannula. Receiving normal saline at 20 MLS per hour. Continued on Nepro PEG tube feedings at 43 mL/h which is goal. He is status post 2 units of packed red blood cells. Hemoglobin 6.0 today. To receive 1 unit of packed red blood cells today unit. GI service is following. White count 13.7. Platelets 300. Sodium 141. Potassium 5.0. Bicarb 30. BUN 109. Creatinine 2.5. Glucose 146. He remains on Unasyn. Remains on Lokelma. The patient is seen today 04/24/2020 for follow-up on the regular medical floor. He is currently resting in bed. He has been having issues with anemia and his hemoglobin was 6.3 again today. He is receiving his fourth unit of packed red blood cells. He has received 2-1/2 L of fluid resuscitation. He is awaiting EGD/colonoscopy today. He remains on Unasyn. Continued on bronchodilators. Remains on Lokelma. white count 13.9. Platelets 323. Sodium 145. Potassium 5.3. Bicarb 27. BUN 89. Creatinine 2.3. Glucose 129. The patient is seen today April 27, 2024 in follow-up on the regular medical floor. He is currently awake and alert in no acute distress. He is sitting up in a chair at the bedside. He is maintaining good O2 saturations in the 90s on 3 L/min per nasal cannula. He is being nourished with Nepro at 43 mL/h. He is status post 5 units of packed red blood cells this admission. No further bleeding noted. White count 9.3. Hemoglobin 8.1. Platelets 292. Sodium 144. Potassium 4.8. Bicarb 29. BUN 50. Creatinine 1.9. Glucose 101. He remains on antibiotics in the form of Unasyn. Continued on bronchodilators. The patient is seen today April 28, 2024 in follow-up on the regular medical floor. He is sitting up in bed. Awake and alert in no acute distress. Asking about going home. He denies any shortness of breath, cough or congestion. He is maintaining good O2 saturations in the 90s on 2 L/min per nasal cannula. He is status post 5 units of packed red blood cells this admission. Current hemoglobin 8.1. Platelets 311. White count 9.7. Sodium 142. Potassium 4.7. Bicarb 28. BUN 45. Creatinine 2.0. Glucose 119. He remains on bronchodilators. Remains on Unasyn per ID service. The patient is seen today April 29, 2024 in follow-up on the regular medical floor. He is awake and alert in no acute distress. He is maintaining good O2 saturations in the 90s on 3 L/min per nasal cannula. He is being nourished with Nepro at 43 mL/h which is goal. He is continued on antibiotics in the form of Unasyn. Sputum is positive for Jenae only. Glucose 131. Recent hemoglobin 8.1 Objective - Vital Signs Vital signs: Vital Signs Temp 97.5 F L 04/29/24 07:05 Pulse 121 H 04/29/24 10:24 Resp 20 04/29/24 10:24 BP 99/64 04/29/24 07:05 Pulse Ox 97 04/29/24 08:59 FiO2 Intake & Output 04/28/24 04/29/24 04/29/24 18:59 06:59 18:59 Output Total 400 350 Balance -400 -350 Weight 104.3 kg 105.3 kg Output: Urine 400 350 Other: Voiding Method Toilet Toilet Toilet # Voids 1 1 1 - Exam GENERAL EXAM: Alert, pleasant 63-year-old male, sitting up in bed, on 2 L nasal cannula, in no apparent distress. HEAD: Normocephalic. EYES: Normal reaction of pupils, equal size. NOSE: Clear with pink turbinates. THROAT: No erythema or exudates. NECK: No masses, no JVD. CHEST: No chest wall deformity. LUNGS: Equal air entry with no crackles, wheeze, rhonchi or dullness. CVS: S1 and S2 normal with no audible murmur, regular rhythm. Tachycardic ABDOMEN: PEG tube exit site clean and dry. No hepatosplenomegaly, normal bowel sounds, no guarding or rigidity. SPINE: No scoliosis or deformity SKIN: Evidence of purulent drainage noted at the site of a previous amputation of the big toe and second toe on the right foot CENTRAL NERVOUS SYSTEM: No focal deficits, tone is normal in all 4 extremities. EXTREMITIES: Right foot dressing dry and intact. There is no peripheral edema. Peripheral pulses are intact. - Labs CBC & Chem 7: 04/28/24 04:31 04/28/24 04:31 Labs: Abnormal Lab Results - Last 24 Hours (Table) 04/28/24 04/28/24 04/28/24 Range/Units 11:48 18:05 23:53 POC Glucose (mg/dL) 133 H 137 H 125 H (70-110) mg/dL 04/29/24 Range/Units 05:49 POC Glucose (mg/dL) 131 H (70-110) mg/dL Assessment and Plan Assessment: Acute hypoxic respiratory failure secondary to an acute exacerbation of systolic congestive heart failure ejection fraction 35 to 40% Acute cellulitis of right foot with previous amputation of big toe and second toe, culture revealed no growth Acute on chronic stage IV kidney disease, baseline creatinine is in the range of 2.0 since 2019 Anemia suspect secondary to above, receiving a 4th unit of packed red blood cells Hypotension secondary to anemia, received 2-1/2 L of fluid resuscitation, midodrine added, received 5 units of packed red blood cells this admission. Recovered. EGD revealed no evidence of peptic ulcer disease or esophagitis. No evidence of active bleeding. Intact internal bumper of the PEG tube. Colonoscopy revealed 3 small sigmoid colon polyps not removed, colon appeared normal. No active bleeding. Hyperkalemia secondary to above, remains on Lokelma, current potassium 4.7 Hypernatremia, recovered History of peripheral vessel occlusive disease and previous stenting of right SFA and right popliteal artery Severe pulmonary hypertension Paroxysmal atrial fibrillation, anticoagulated with Eliquis History of CVA with residual dysphagia requiring PEG tube placement, being nourished with Nepro tube feedings Type 2 diabetes Chronic and ongoing tobacco dependence Plan: The patient was seen and evaluated Medications reviewed Stable on 2 L nasal cannula Evaluate for possible home oxygen Plan is for home with home care at discharge This patient was seen independently by the pulmonary nurse practitioner address ing pulmonary issues I have personally seen and examined the patient, performed the documentation and the assessment and plan as written. Number of minutes spent on the visit: 23.
[2024-04-29 11:36] LABS: Glucose,Whole Blood 131 mg/dL (70-110)
--- NOTE | 2024-04-29 12:00 | P.PN ---
Subjective Progress Note Date: 04/29/24 HISTORY OF PRESENT ILLNESS: This is a 63-year-old male with a past medical history significant for paro xysmal atrial fibrillation, peripheral arterial disease, hypertension, hyperlipidemia, and diabetes. Patient follows in the office with Dr. Gonzalez. We have been asked to see the patient in consultation for elevated troponin. Patient examined at the bedside. The patient presented to the hospital with a chief complaint of shortness of breath. Patient states he has been feeling short of breath for the past couple weeks. He states that he checked his oxygen saturation at home and it was found to be in the high 80s. The patient denies having any chest pain or pressure. Patient was found to have elevated D-dimer of 2.10. He underwent VQ scan which was negative for pulmonary embolism. Vital signs are stable. It is noted that the patient underwent balloon angioplasty and stenting of right SFA and right popliteal. DIAGNOSTICS: - EKG reveals atrial fibrillation with controlled ventricular rate. - Chest xray cardiomegaly and mild pulmonary vascular congestion. - Laboratory data: WBC 8.7. Hemoglobin 11.4. Platelet count 283. D-dimer 2.10. Sodium 139. Potassium 4.9. BUN 41. Creatinine 2.01. Troponin 0.036. 0.038. 0.043. - Current home cardiac medications include amiodarone 100 mg daily, Eliquis 2.5 mg twice a day, Plavix 75 mg daily, losartan 25 mg daily, rosuvastatin 20 mg daily, metoprolol tartrate 50 mg twice a day. - Most recent echocardiogram obtained in June 2021 revealed ejection fraction 55 to 60%, severe pulmonary hypertension 04/14/2024 Patient examined this morning. Patient currently denies chest pain or pressure. He reports improvement in his shortness of breath. Echocardiogram completed revealing ejection fraction 35 to 40%, mild MR, mild TR. 04/15/2024 Patient examined this morning at bedside. Patient currently denies chest pain or pressure. He denies shortness of breath. Vital signs are stable. 04/23 Cardiology was re-counseled that secondary to anemia and recommendations for blood thinners. Patient denies any chest pain or pressure. He does feel significantly short of breath. Hemoglobin down to 6.4 and packed red blood cells were reordered. He states he is feeling sick. And tired and is questioning whether he even wants blood transfusions. He denies any hematochezia or melena. 04/24/2024 patient examined this morning to bedside. Patient currently denies chest pain or pressure. He denies shortness of breath. Hemoglobin today 6.3. He is scheduled to undergo endoscopy today. 04/27 Patient was previously seen by cardiology and signed off on 04/24. We have been reconsulted for tachycardia and hypotension. EKG is atrial tachycardia versus junctional rhythm 122 bpm. Blood pressure 125/67 but previously during the ght, patient was 88/56. Repeat blood work reveals hemoglobin 8.1, BUN 49 creatinine 1.9. Patient is currently on Lopressor 50 mg twice daily per PEG tube which will be increased frequency to 3 times daily. Patient has also been on midodrine as ordered by pulmonary medicine. 04/28 Telemetry reviewed appears to be atrial tachycardia in the 120s. Yesterday, Lopressor 50 mg was increased frequency to 3 times daily. Blood pressure 129/83, pulse ox 93% on 2 L nasal cannula. Repeat blood work reveals hemoglobin of 8.1. BUN 45 creatinine 2. 04/29 Patient remains tachycardic in the 120s. Yesterday we increased amiodarone to 200 mg daily. Blood pressure 99/64, pulse ox 97% on 2 L nasal cannula. PHYSICAL EXAM: VITAL SIGNS: Reviewed. GENERAL: Well-developed in no acute distress. LUNGS: Respirations even and unlabored. Lungs essentially clear to auscultation bilaterally. HEART: Irregular rate and rhythm. S1 and S2 heard. Tachycardic. ABDOMEN: Soft. Nondistended. Nontender. EXTREMITIES: No clubbing or cyanosis. Peripheral pulses intact. No lower extremity edema NEUROLOGIC: Awake and alert. ASSESSMENT: Atrial tachycardia Shortness of breath, etiology unclear, VQ scan negative for PE, not volume overloaded on clinical examination Acute hypoxic respiratory failure requiring supplemental oxygen Abnormal troponins, flat, type II OK secondary to oxygen supply and demand mismatch Recent balloon angioplasty and stenting of right SFA and right popliteal artery, 04/08/2024 Severe pulmonary hypertension Peripheral arterial disease Paroxysmal atrial fibrillation History of CVA Hypertension Hyperlipidemia Diabetes History of PEG tube placement New onset cardiomyopathy, ischemic versus nonischemic Anemia PLAN: Continue current cardiac medications: Aspirin 81 mg daily, atorvastatin 40 mg daily, Plavix 75 mg daily Continue metoprolol tartrate 50 mg 3 times daily I continue amiodarone 200 mg daily Add Cardizem 30 mg 3 times daily Patient's Eliquis has been placed on hold due to anemia Further recommendations as patient progresses. Nurse practitioner note has been reviewed by physician. Signing provider agrees with the documented findings, assessment, and plan of care documented by TEST DESK SUPERVISOR as a scribe. Objective - Vital Signs Vital signs: Vital Signs Temp 97.5 F L 04/29/24 07:05 Pulse 121 H 04/29/24 10:24 Resp 20 04/29/24 10:24 BP 99/64 04/29/24 07:05 Pulse Ox 97 04/29/24 08:59 FiO2 Intake & Output 04/28/24 04/29/24 04/29/24 18:59 06:59 18:59 Output Total 400 350 Balance -400 -350 Weight 104.3 kg 105.3 kg Output: Urine 400 350 Other: Voiding Method Toilet Toilet Toilet # Voids 1 1 1 - Labs CBC & Chem 7: 04/28/24 04:31 04/28/24 04:31 Labs: Abnormal Lab Results - Last 24 Hours (Table) 04/28/24 04/28/24 04/29/24 Range/Units 18:05 23:53 05:49 POC Glucose (mg/dL) 137 H 125 H 131 H (70-110) mg/dL 04/29/24 Range/Units 11:35 POC Glucose (mg/dL) 131 H (70-110) mg/dL
[2024-04-29] MEDS: DILTIAZEM ORAL 30 MG TAB PO SCH (12:38)
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
[2024-04-29 16:49] LABS: Glucose,Whole Blood 113 mg/dL (70-110)
[2024-04-29] MEDS: METOPROLOL TARTRATE 5 MG/5 ML VIAL IVP SCH (17:04)
[2024-04-29 20:03] LABS: Glucose,Whole Blood 91 mg/dL (70-110)
[2024-04-29] MEDS: AMOXIC-POT CLAV 500-125 MG 1 EACH TAB PO SCH (21:24)
[2024-04-30 05:56] LABS: Glucose,Whole Blood 71 mg/dL (70-110)
--- NOTE | 2024-04-30 10:38 | P.PN ---
Subjective Progress Note Date: 04/30/24 Everett Juárez, is a 63-year-old male who presented to [facility] emergency room with a chief complaint of worsening shortness of breath and generalized weakness, patient was recently admitted to [facility] with peripheral vascular disease right foot osteomyelitis and underwent stenting of the right SFA by Dr. Dillard, he has a previous history of right great toe amputation. He was evaluated in the emergency room vital examination on presentation revealed a temperature of 98.9 pulse 110 respiration 18 blood pressure 114/72 pulse ox 96% on room air Laboratory data reveals a white blood count of 8.7 hemoglobin 11.4 platelet count 283 sodium 139 potassium 4.9 chloride 110 CO2 23 BUN 41 creatinine 2.01 D- dimer was elevated at 2.10, troponin level was elevated at 0.043 Testing in the emergency room revealed chest x-ray done in the emergency room revealed cardiomegaly and mild pulmonary vascular congestion suggestive of congestive heart failure, VQ scan showed no evidence for pulmonary embolism, EKG revealed atrial fibrillation with moderate T wave abnormalities suggestive of lateral ischemia. Patient was admitted to medical floor for further evaluation and treatment Past medical history is significant for history of atrial fibrillation, history of peripheral arterial disease with previous history of right great toe amputation, history of COPD, history of diabetes mellitus type 2, history of hyperkalemia, history of chronic kidney disease. On review of systems patient is alert and oriented x 3 in no apparent distress, he is complaining of generalized weakness, complaining of shortness of breath, which is worse with activity, and complaining of right foot pain, otherwise he denies any complaints, there is no fever or chills no headache or dizziness no chest pain, no cough no nausea or vomiting no abdominal pain no diarrhea and no urinary symptoms On 04/14/2024 patient is alert and oriented 3.Patient remains on IV Unasyn and IV Lasix. 2-D echo completed showing an EF of 35-40%. Current vital signs temp 98.3, heart 81, respiratory rate 18, blood pressure 135/67 with a pulse ox of 100% on 3 L. Patient reports improvement with shortness of breath. Patient denies nausea vomiting or diarrhea. Patient denies any urinary burning or frequency On 04/15/2024 Patient is alert and oriented 3. Patient remains on IV Unasyn. Patient has been transitioned to by mouth Lasix.Current vital signs temp 97.1, heart rate 98, respiratory rate 18, blood pressure 121/79 with pulse ox 96% on 3 L. Patient denies chest pain or shortness breath. Patient denies nausea vomiting or diarrhea. Patient denies any urinary burning or frequency. On 04/16/2024 he is alert and oriented x 3 in no apparent distress he reports improvement in his shortness of breath there is no fever or chills no headache or dizziness no chest pain no cough no nausea or vomiting no abdominal pain no diarrhea and no urinary symptoms. On 04/17/2024 patient is alert and oriented x 3. Current vital signs Temp 98.1, heart rate 100, respiratory rate 16, blood pressure 153/81 with a pulse ox of 97% on 2 L. Patient remains on IV Unasyn. Awaiting final antibiotic recommenda tions per ID. Patient denies chest pain or shortness of breath. Patient denies nausea vomiting or diarrhea. Patient denies any urinary burning or frequency. On 04/18/2024 patient was seen and examined on the medical floor he is alert and oriented x 3 in no apparent distress there is no fever or chills no headache or dizziness no chest pain no shortness of breath no cough no nausea or vomiting no abdominal pain no diarrhea no urinary symptoms, he is still maintained on oxygen supplements, patient need to be assessed for need for home oxygen, he is also maintained on tube feeding, rehabilitation caseworker is working on arrangement for tube feeding at home. Otherwise continue with current management will recheck in a.m.. On 04/19/2024 patient is alert and oriented x 3. Patient is maintained on 3 L n roberth cannula. Patient also maintained on IV Unasyn. Awaiting final IV recommendations from infectious disease. Current vital signs Temp 98.2, heart rate 82, blood pressure 116/70 with a pulse ox of 97% on 3 L patient denies chest pain or shortness of breath. Patient denies nausea vomiting or diarrhea. Patient denies any urinary burning or frequency On 04/20/2024 patient was seen and examined on the medical floor he is alert and oriented x 3 in no apparent distress, there is no fever or chills no headache or dizziness no chest pain no shortness of breath no cough no nausea or vomiting no abdominal pain no diarrhea no urinary symptoms, patient is still having difficulty with hyperkalemia, he is maintained on IV fluids and [facility] nephrology are following, will recheck labs in a.m. On 04/21/2024 patient is alert and oriented x 3. Potassium remains elevated at 5.9 awaiting further recommendations from nephrology standpoint. Patient denies chest pain or shortness of breath. Patient denies nausea vomiting or diarrhea. Patient denies any urinary burning or frequency On 04/22/2024 patient is alert and oriented x 3. Patient received 1 unit PRBCs for hemoglobin of 6.8 yesterday. GI services were consulted stool for occult blood ordered. Nephrology service is following for elevated potassium level. At this time patient denies chest pain or shortness of breath. Patient denies nausea vomiting or diarrhea. Patient denies any urinary burning frequency. On 04/23/2024 patient was seen and examined on the medical floor he is alert and oriented x 3 in no apparent distress, his hemoglobin today is again 6.01 unit of red blood cell transfusion was ordered, he was reevaluated by gastroenterology and plans are for EGD and colonoscopy tomorrow, otherwise he denies any complaints there is no fever or chills no headache or dizziness no chest pain no shortness of breath no cough no nausea or vomiting no abdominal pain no diarrhea no urinary symptoms On 04/24/2024 patient is alert and oriented 3. Plans for EGD and colonoscopy today with GI services.Patient had episodes of hypotension throughout night received IV bolus. Continue to transfuse patient for hemoglobin less than 7. Patient remains on IV Unasyn. This time patient denies chest pain or shortness breath. Patient denies nausea vomiting or diarrhea. Patient denies any urinary burning or frequency. On 04/25/2024 patient was seen and examined on the medical floor he is alert and oriented x 3 in no apparent distress there is no fever or chills no headache or dizziness no chest pain no shortness of breath no cough no nausea or vomiting no abdominal pain no diarrhea no urinary symptoms, hemoglobin is down again to 6.7 patient will be given 1 unit of red blood cell transfusion, EGD and colonoscopy results done yesterday were reviewed, at this time will consult Dr. Jackson regarding recurrent pneumonia requiring multiple red blood cell transfusion, continue with tube feeding at this time. On 04/26/2024 patient is alert and oriented x 3. Hemoglobin today 8.0. Awaiting oncology input. Patient denies chest pain or shortness of breath. Patient denies nausea vomiting or diarrhea. Patient denies any urinary burning or frequency. Current vital signs Temp 97.7, heart rate 91, respiratory rate 16, blood pressure 118/60 with pulse ox of 98% on 4 L On 04/27/2024 patient was seen and examined on the medical floor he is alert and oriented x 3 in no apparent distress he is complaining of generalized weakness otherwise he denies any specific complaints there is no fever or chills no headache or dizziness no chest pain no shortness of breath no cough no nausea or vomiting no abdominal pain no diarrhea no urinary symptoms. On 04/28/2024 patient was seen and examined on the medical floor he is alert and oriented x 3 in no apparent distress there is no fever or chills no headache or dizziness no chest pain no shortness of breath no cough no nausea or vomiting no abdominal pain no diarrhea and no urinary symptoms, hemoglobin is stabilizing around 8 will continue to monitor On 04/29/2024 patient is alert and oriented 3.heart rate elevated at 121 this AM. Patient being followed by cardiology services was given by mouth amiodarone awaiting further recommendations from cardiology services. Hemoglobin remained stable at 8.1. Patient denies chest pain or shortness of breath. Patient denies nausea vomiting or diarrhea. Patient denies any urinary burning or frequency On 04/30/2024 patient is alert resting comfortably in bed. Patient pulled out PEG tube yesterday. Patient unable to take pills by mouth. Surgical service is consulted for new PEG tube placement unable to do until Saturday due to patient being on Plavix Plavix currently on hold. Heart rate remains elevated Lopressor IV push has been ordered. Current vital signs temp 97.7, heart rate 127, blood pressure 118/72 with pulse ox 96% on 3 L. Patient denies chest pain or shortness of breath. Patient denies nausea vomiting or diarrhea. Patient denies any urinary burning or frequency Objective - Vital Signs Vital signs: Vital Signs Temp 97.6 F 04/30/24 08:35 Pulse 119 H 04/30/24 08:35 Resp 18 04/30/24 08:35 BP 127/78 04/30/24 08:35 Pulse Ox 95 04/30/24 08:35 FiO2 Intake & Output 04/29/24 04/30/24 04/30/24 18:59 06:59 18:59 Output Total 250 Balance -250 Weight 104.6 kg Output: Urine 250 Stool 0 Other: Voiding Method Toilet Toilet Toilet # Voids 1 - Exam In general patient is alert and oriented x 3 in no distress HEENT head normocephalic and atraumatic Neck is supple no JVD no goiter no lymphadenopathy no carotid bruit Chest examination reveals a scattered crackles in both lung [place] no wheezing Cardiac exam reveals irregular heart sounds S1 and S2 no gallops no murmurs Abdomen is soft nontender no organomegaly with normal bowel sounds Extremity exam reveals no edema no cyanosis or clubbing, the right great toe is amputated with a large ulcer at the base of the amputated right great toe with purulent discharge Neurological examination reveals no gross focal deficits - Labs CBC & Chem 7: 04/28/24 04:31 04/28/24 04:31 Labs: Abnormal Lab Results - Last 24 Hours (Table) 04/29/24 04/29/24 Range/Units 11:35 16:47 POC Glucose (mg/dL) 131 H 113 H (70-110) mg/dL Assessment and Plan Plan: Worsening shortness of breath, multifactorial, possibly related to acute congestive heart failure, and underlying COPD Atrial fibrillation, with rapid ventricular response on presentation, heart rate was 110 New onset cardiomyopathy. Anemia status post EGD and colonoscopy on 04/24/2024 Generalized weakness Large ulcer at the base of the right great toe with purulent discharge, patient was maintained on oral Augmentin as outpatient, infectious disease consultation requested Underlying history of peripheral arterial disease, with recent history of angioplasty and stent placement to the right lower extremity on 04/08/2024 Underlying history of diabetes mellitus Underlying history of chronic obstructive pulmonary disease Underlying history of chronic kidney disease Underlying history of hyperkalemia Underlying history of chronic continued tobacco abuse At this time patient is admitted to telemetry floor Home medications reviewed and reordered Consultation for cardiology and pulmonary were requested in the emergency room For DVT prophylaxis, patient is maintained on scds (eliquis on hold due to anemia) Will add infectious disease consultation in regard to base of right great toe ulcer Will follow closely
--- NOTE | 2024-04-30 11:25 | P.PN ---
Subjective Progress Note Date: 04/30/24 CHIEF COMPLAINT: Pulled out PEG tube HISTORY OF PRESENT ILLNESS: Patient admitted to the hospital with shortness of breath and CHF exacerbation. Patient has a known history of a CVA and dysphagia. Patient pulled out his PEG tube. Due to him being on Plavix PEG tube cannot be replaced until Saturday. PHYSICAL EXAM: VITAL SIGNS: Reviewed. GENERAL: no acute distress. HEENT: No sclera icterus. Extraocular movements grossly intact. Moist buccal mucosa. Head is atraumatic, normocephalic. ABDOMEN: Soft. Nondistended. Nontender. NEUROLOGIC: awake ASSESSMENT: 1. Moderate protein calorie malnutrition 2. Dysphagia 3. Acute CHF 4. A-fib 5. Cardiomyopathy 6. Peripheral arterial disease with angioplasty and stent to the right lower extremity earlier in April 7. Diabetes mellitus 8. Anemia PLAN: -Patient scheduled for EGD with PEG tube placement on 05/04/[address] Looney -Continue to hold Plavix Physician Vice President Risk Management note has been reviewed by physician. Signing provider agrees with the documented findings, assessment, and plan of care. Objective - Vital Signs Vital signs: Vital Signs Temp 97.6 F 04/30/24 08:35 Pulse 119 H 04/30/24 08:35 Resp 18 04/30/24 08:35 BP 127/78 04/30/24 08:35 Pulse Ox 95 04/30/24 08:35 FiO2 Intake & Output 04/29/24 04/30/24 04/30/24 18:59 06:59 18:59 Output Total 250 Balance -250 Weight 104.6 kg Output: Urine 250 Stool 0 Other: Voiding Method Toilet Toilet Toilet # Voids 1 - Labs CBC & Chem 7: 04/28/24 04:31 04/28/24 04:31 Labs: Abnormal Lab Results - Last 24 Hours (Table) 04/29/24 04/29/24 Range/Units 11:35 16:47 POC Glucose (mg/dL) 131 H 113 H (70-110) mg/dL
[2024-04-30 11:41] LABS: Glucose,Whole Blood 77 mg/dL (70-110)
--- NOTE | 2024-04-30 12:39 | P.PN ---
Subjective Progress Note Date: 04/30/24 Principal diagnosis: Anemia. This is a 63-year-old white male with history of multiple medical problems including coronary artery disease, chronic atrial fibrillation, peripheral vessel occlusive disease, severe pulmonary hypertension, chronic obstructive pulmonary disease, patient normally sees Dr. Dillard on outpatient basis. Patient was never seen by a boat tester. Admitted this time with few days history of increased shortness of breath, and according to the his O2 saturation was down in the 60s. Patient was brought into the ER, chest x-ray showed evidence of pulmonary edema, VQ scan negative for pulmonary embolism, patient was admitted and this consult was initiated. Patient is not a great historian, most of the information was obtained from his , apparently the patient had history of CVA in the past, and he had a previous PEG tube placement Labs on admission showed relatively normal CBC, no leukocytosis, D-dimer was a bit elevated at 2.10 and renal profile was abnormal with BUN of 43 and creatinine 2.01 however BNP level was 12,300 and troponin was 0.043. Since admission, the patient received 1 dose of Lasix, and he is at least 1.5 L negative fluid balance The patient is seen today April 14, 2024 in follow-up on the selective care unit. He is currently sitting up at the bedside. Awake and alert in no acute distress. Breathing a bit easier today compared to yesterday. Currently maintaining good O2 saturations in the upper 90s on 3 L/min per nasal cannula. He is afebrile. Hemodynamically stable. Echocardiogram reveals impaired left ventricular systolic function with an ejection fraction of 35 to 40%. Severe pulmonary hypertension. Moderate to severely dilated left atrium. Right first toe culture is pending. Currently on Unasyn. Glucose 125. Being nourished with Glucerna at 51 MLS per hour via his PEG tube. Anticoagulated with Eliquis. Remains on diuretics. Making adequate urine. The patient is seen today April 15, 2024 in follow-up on the selective care unit. He is awake and alert in no acute distress. Maintaining O2 saturations in the 90s on 3 L/min per nasal cannula. Hemodynamically stable. White count 8.4. Hemoglobin 11.2. Platelets 321. Sodium 143. Potassium 4.9. Bicarb 29. BUN 45. Creatinine 1.99. Glucose 126. He is continued on Unasyn. Anticoagulated with Eliquis. Remains on bronchodilators. Remains on oral diuretics. Continued on Glucerna via his PEG tube. Barium swallow is pending so the patient can continue on tube feedings in the outpatient setting Patient was evaluated today on 04/16/2024, patient is doing well, comfortable, not in any distress, on 3 L nasal cannula with O2 sats of 96%. WBC is 8.5 hemoglobin 10.5 electrolytes are relatively normal with potassium of 5.2 BUN is 48 creatinine 1.94, steadily improving since admission patient had a successful swallow evaluation study that came back unremarkable. The patient was seen today April 17, 2024 in follow-up on the selective care unit. He is currently resting comfortably in bed. Awake and alert in no acute distress. Maintaining O2 saturations in the 90s on 2 L/min per nasal cannula. Right foot culture results revealing no growth. White count 9.6. Hemoglobin 10.9. Platelets 305. Sodium 145. Potassium 5.4. Bicarb 32. BUN 56. Creatinine 1.99. Glucose 133. He remains on bronchodilators. Anticoagulated with Eliquis. Antibiotics in the form of Unasyn. Remains on Glucerna tube feedings. The patient is seen today April 18, 2024 in follow-up on the regular medical floor. He is currently sitting up at the bedside. Awake and alert in no acute distress. Maintaining O2 saturations in the 90s on 2 L/min per nasal cannula. He has been afebrile. Hemodynamically stable. He remains on Glucerna at 51 mL/h which is goal. He remains on antibiotics in the form of Unasyn. His right foot dressing is dry and intact. Glucose 140. He remains on bronchodilators. Oral diuretics. Anticoagulated with Eliquis. The patient is seen today April 19, 2024 in follow-up on the regular medical floor. He is currently sitting up in bed. Awake and alert in no acute distress. He is maintaining good O2 saturations in the 90s on 3 L/min per nasal cannula. He remains on antibiotics in the form of Unasyn. He is being nourished with Glucerna at 51 mL/h which is his goal. He is continued on bronchodilators. Anticoagulated with Eliquis. Normal saline at 100 MLS per hour. White count 10.8. Hemoglobin 9.2. Platelets 307. Sodium 147. Potassium 6.3. BUN 84. Creatinine 2.3. Glucose 105. The patient is seen today April 20, 2024 in follow-up on the regular medical floor. He is currently sitting up at the bedside. Awake and alert in no acute distress. Maintaining good O2 saturations in the 90s on 4 L/min per nasal cannula. He remains on Glucerna at 51 mL/h which is goal. 0.45% normal saline at 75 MLS per hour. Potassium 5.6. Bicarb 30. BUN 90. Creatinine 2.4. Glucose 120. He received Lokelma yesterday for his hyperkalemia. Right foot cultures revealed no growth. Sputum culture revealed Jenae. He continues on Unasyn per ID service. He remains on bronchodilators. Anticoagulated with Eliquis. Remains on oral diuretics. The patient is seen today April 21, 2024 in follow-up on the regular medical floor. He is awake and alert in no acute distress. Sitting up at the bedside. Denies any worsening shortness of breath, cough or congestion. Continues to maintain good O2 saturations in the upper 90s on 4 L/min per nasal cannula. He is afebrile. Hemodynamically stable. White count 11.0. Hemoglobin 6.8. Platelets 324. Sodium 143. Potassium 5.9. Bicarb 29. BUN 98. Creatinine 2.4. Glucose 127. Nephrology is following. He remains on bronchodilators and Unasyn. The patient is seen today April 22, 2024 in follow-up on the regular medical floor. He is currently sitting up at the bedside. Awake and alert in no acute distress. He is receiving 2 units of packed red blood cells for hemoglobin of 6.4 today. White count 10.7. Platelets 308. Sodium 141. Potassium 5.8. Bicarb 28. BUN 107. Creatinine 2.7. Glucose 150. He remains on Unasyn. Continued on bronchodilators. Remains on Lokelma for his hyperkalemia. Receiving folate acid. The patient is seen today April 23, 2024 in follow-up on the regular medical floor. He is awake and alert in no acute distress. Maintaining O2 saturations in the 90s on 2 L/min per nasal cannula. Receiving normal saline at 20 MLS per hour. Continued on Nepro PEG tube feedings at 43 mL/h which is goal. He is status post 2 units of packed red blood cells. Hemoglobin 6.0 today. To receive 1 unit of packed red blood cells today unit. GI service is following. White count 13.7. Platelets 300. Sodium 141. Potassium 5.0. Bicarb 30. BUN 109. Creatinine 2.5. Glucose 146. He remains on Unasyn. Remains on Lokelma. The patient is seen today 04/24/2020 for follow-up on the regular medical floor. He is currently resting in bed. He has been having issues with anemia and his hemoglobin was 6.3 again today. He is receiving his fourth unit of packed red blood cells. He has received 2-1/2 L of fluid resuscitation. He is awaiting EGD/colonoscopy today. He remains on Unasyn. Continued on bronchodilators. Remains on Lokelma. white count 13.9. Platelets 323. Sodium 145. Potassium 5.3. Bicarb 27. BUN 89. Creatinine 2.3. Glucose 129. Progress note dated April 25, 2024. 63-year-old male seen on the general medical floor. He is in room 475. The patient is currently resting in bed. He denies any specific complaints, although he appears to be a bit weak. He had blood work today showing a white count of 12.5, hemoglobin 6.7, hematocrit 21.4, and a platelet count of 290,000. Sodium 142, potassium 4.8, chlorides 106, CO2 26, BUN 79, creatinine 2.3. Glucose was 142. AST 77 with an ALT of 69. Sputum samples are essentially negative although there is some Jenae albicans on the most recent sputum. No recent chest x-ray. Progress note dated April 26, 2024. 63-year-old male seen today in room 475. The patient continues on oxygen by nasal cannula at 4 L, saline at 20 cc an hour, and Nepro tube feedings at 43 cc an hour. The patient's hemoglobin this morning was 8. He has received a total of 5 units of packed red blood cells, while here in the hospital. Clinically, he looks better today. Much more awake and alert. Has no complaints. Current white count 10.5, hemoglobin 8, hematocrit 24.6, platelet count 297,000. Sodium 140, potassium 4.2, chlorides 106, CO2 28, BUN 66, and creatinine 2.03. Glucose is 120. Calcium is 8.1. Cultures are negative. No recent chest x-ray. The patient is seen today April 27, 2024 in follow-up on the regular medical floor. He is currently awake and alert in no acute distress. He is sitting up in a chair at the bedside. He is maintaining good O2 saturations in the 90s on 3 L/min per nasal cannula. He is being nourished with Nepro at 43 mL/h. He is status post 5 units of packed red blood cells this admission. No further bleeding noted. White count 9.3. Hemoglobin 8.1. Platelets 292. Sodium 144. Potassium 4.8. Bicarb 29. BUN 50. Creatinine 1.9. Glucose 101. He remains on antibiotics in the form of Unasyn. Continued on bronchodilators. The patient is seen today April 28, 2024 in follow-up on the regular medical floor. He is sitting up in bed. Awake and alert in no acute distress. Asking about going home. He denies any shortness of breath, cough or congestion. He is maintaining good O2 saturations in the 90s on 2 L/min per nasal cannula. He is status post 5 units of packed red blood cells this admission. Current hemoglobin 8.1. Platelets 311. White count 9.7. Sodium 142. Potassium 4.7. Bicarb 28. BUN 45. Creatinine 2.0. Glucose 119. He remains on bronchodilators. Remains on Unasyn per ID service. The patient is seen today April 29, 2024 in follow-up on the regular medical floor. He is awake and alert in no acute distress. He is maintaining good O2 saturations in the 90s on 3 L/min per nasal cannula. He is being nourished with Nepro at 43 mL/h which is goal. He is continued on antibiotics in the form of Unasyn. Sputum is positive for Jenae only. Glucose 131. Recent hemoglobin 8.1 Progress note dated April 30, 2024. The patient was seen in room 353. For some reason he was moved down to the third floor, and apparently he pulled out his PEG tube. Currently, he is receiving IV Lopressor, for blood pressure support periodically. He is on 3 L of oxygen by nasal cannula. He is not receiving any IV fluids. The PEG tube will have to be reinserted, but cannot be placed on till Saturday. No new labs today other than a glucose of 77. Objective - Vital Signs Vital signs: Vital Signs Temp 97.6 F 04/30/24 08:35 Pulse 119 H 04/30/24 08:35 Resp 18 04/30/24 08:35 BP 127/78 04/30/24 08:35 Pulse Ox 95 04/30/24 08:35 FiO2 Intake & Output 04/29/24 04/30/24 04/30/24 18:59 06:59 18:59 Output Total 250 Balance -250 Weight 104.6 kg Output: Urine 250 Stool 0 Other: Voiding Method Toilet Toilet Toilet # Voids 1 - Exam No acute distress, oriented 3. 4 L saturation is 96%. 3 L saturations at 95 %. HEENT examination is grossly unremarkable. Mucous membranes are moist. No oral lesions. Neck supple. Full range of motion. No adenopathy thyromegaly or neck vein distention. Cardiovascular examination reveals regular rhythm rate. S1-S2 normal. No S3 or S4. No discernible murmur noted. Heart sounds are distant. Heart rate 101 bpm. Lungs reveal mostly clear breath sounds. Scattered rhonchi. No wheezes or crackles. 3 L saturation is 95%. Abdomen soft bowel sounds are heard. No masses or tenderness. Extremities are intact. No cyanosis clubbing or edema. Skin is without rash or lesion. Neurologic examination is brief but nonfocal. - Labs CBC & Chem 7: 04/28/24 04:31 04/28/24 04:31 Labs: Abnormal Lab Results - Last 24 Hours (Table) 04/29/24 Range/Units 16:47 POC Glucose (mg/dL) 113 H (70-110) mg/dL Assessment and Plan Assessment: Acute hypoxic respiratory failure secondary to an acute exacerbation of systolic congestive heart failure. 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 Acute on chronic stage IV kidney disease. Anemia suspect secondary to above, S/P 5 units of blood. Hypotension secondary to anemia, received 2-1/2 L of fluid resuscitation, midodrine added. Hyperkalemia resolved. Hypernatremia, resolved. History of peripheral vessel occlusive disease and previous stenting of right SFA and right popliteal artery. Severe pulmonary hypertension. Paroxysmal atrial fibrillation, anticoagulated with Eliquis. 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 Type 2 diabetes mellitus. Chronic and ongoing tobacco dependence. Plan: Plan dated April 25, 2024. The patient is seen in room 475. The patient is currently on 4 L. Saturations are 96%. The patient will likely get his fifth unit of blood today. His hemoglobin is below 7. Labs, x-rays, medications are reviewed. The patient's overall prognosis remains guarded. We will continue to follow the patient, make recommendations along the way. His blood pressure has been much more stable, with fluid resuscitation, and blood. Plan dated April 26, 2024. Clinically, the patient looks about as good as he is look since I seen him for the last 6 to 7 days. His vital signs are stable. He continues on oxygen at 4 L. Saturations are 96%. He continues on tube feedings with Nepro. Labs, x- rays, medications are reviewed. He has received a total of 5 units of packed red blood cells. The patient's hemoglobin this morning was 8. We will continue to follow make recommendations along the way. Plan dated April 30, 2024. The patient is seen today in room 353. The patient was transferred down from the fourth floor. I am not sure why that was. The patient did pull out his PEG tube. That will have to be reinserted. In addition, he is getting Lopressor IV, for blood pressure support. Will start him on oral Lopressor, once the PEG tube is back in place. Labs, x-rays, and all medications are reviewed. Prognosis is guarded. We will continue to follow and make recommendations. Time with Patient: Less than 30
--- NOTE | 2024-04-30 12:44 | P.PN ---
Subjective patient is seen for follow-up for acute kidney injury and chronic kidney disease. patient pulled out his PEG tube and surgery has been consult it for replacement of the PEG tube which is scheduled for 05/04/2024. Serum creatinine stable at about 2.0 mg/dL. no complaints today. Objective - Vital Signs Vital signs: Vital Signs Temp 97.6 F 04/30/24 08:35 Pulse 119 H 04/30/24 08:35 Resp 18 04/30/24 08:35 BP 127/78 04/30/24 08:35 Pulse Ox 95 04/30/24 08:35 FiO2 Intake & Output 04/29/24 04/30/24 04/30/24 18:59 06:59 18:59 Output Total 250 Balance -250 Weight 104.6 kg Output: Urine 250 Stool 0 Other: Voiding Method Toilet Toilet Toilet # Voids 1 - Exam patient is awake, comfortable, no acute distress. Examination of the heart S1 and S2 Examination lungs bilateral breath sounds are heard Abdomen is soft nontender Examination lower extremities shows no significant edema. - Labs CBC & Chem 7: 04/28/24 04:31 04/28/24 04:31 Labs: Abnormal Lab Results - Last 24 Hours (Table) 04/29/24 Range/Units 16:47 POC Glucose (mg/dL) 113 H (70-110) mg/dL Assessment and Plan Assessment: 1. Acute kidney injury secondary to ATN secondary to acute blood loss anemia. Creatinine peaked at 2.7 this admission and stable at 2.0 . Elevated BUN secondary to chronic kidney disease as well as GI bleed. No hydronephrosis noted on kidney ultrasound. UA fairly benign. 2. Chronic kidney disease stage IV baseline creatinine 1.8-2.0 secondary to solitary right kidney. History of left nephrectomy. 3. Chronic systolic CHF ejection fraction of 35 to 40% with severe pulmonary hypertension. 4. Diabetes mellitus. 5. Hypernatremia from lack of oral water intake. Improved. 6. Hyperkalemia secondary to acute kidney injury and GI bleed. Resolved. 7. Peripheral vascular disease. 8. Acute blood loss anemia with hemoglobin. No active bleeding. Status post blood transfusions and IV DDAVP. Also on Aranesp. GI following. Plan: continue to monitor renal function periodically.
--- NOTE | 2024-04-30 13:11 | P.PN ---
Subjective HISTORY OF PRESENT ILLNESS: This is a 63-year-old male with a past medical history significant for paroxysmal atrial fibrillation, peripheral arterial disease, hypertension, hyperlipidemia, and diabetes. Patient follows in the office with Dr. Gonzalez. We have been asked to see the patient in consultation for elevated troponin. Patient examined at the bedside. The patient presented to the hospital with a chief complaint of shortness of breath. Patient states he has been feeling short of breath for the past couple weeks. He states that he checked his oxygen saturation at home and it was found to be in the high 80s. The patient denies having any chest pain or pressure. Patient was found to have elevated D-dimer of 2.10. He underwent VQ scan which was negative for pulmonary embolism. Vital signs are stable. It is noted that the patient underwent balloon angioplasty and stenting of right SFA and right popliteal. DIAGNOSTICS: - EKG reveals atrial fibrillation with controlled ventricular rate. - Chest xray cardiomegaly and mild pulmonary vascular congestion. - Laboratory data: WBC 8.7. Hemoglobin 11.4. Platelet count 283. D-dimer 2.10. Sodium 139. Potassium 4.9. BUN 41. Creatinine 2.01. Troponin 0.036. 0.038. 0.043. - Current home cardiac medications include amiodarone 100 mg daily, Eliquis 2.5 mg twice a day, Plavix 75 mg daily, losartan 25 mg daily, rosuvastatin 20 mg daily, metoprolol tartrate 50 mg twice a day. - Most recent echocardiogram obtained in June 2021 revealed ejection fraction 55 to 60%, severe pulmonary hypertension 04/14/2024 Patient examined this morning. Patient currently denies chest pain or pressure. He reports improvement in his shortness of breath. Echocardiogram completed re vealing ejection fraction 35 to 40%, mild MR, mild TR. 04/15/2024 Patient examined this morning at bedside. Patient currently denies chest pain or pressure. He denies shortness of breath. Vital signs are stable. 04/23 Cardiology was re-counseled that secondary to anemia and recommendations for bl ood thinners. Patient denies any chest pain or pressure. He does feel significantly short of breath. Hemoglobin down to 6.4 and packed red blood cells were reordered. He states he is feeling sick. And tired and is questioning whether he even wants blood transfusions. He denies any hematochezia or melena. 04/24/2024 patient examined this morning to bedside. Patient currently denies chest pain or pressure. He denies shortness of breath. Hemoglobin today 6.3. He is scheduled to undergo endoscopy today. 04/27 Patient was previously seen by cardiology and signed off on 04/24. We have been reconsulted for tachycardia and hypotension. EKG is atrial tachycardia versus junctional rhythm 122 bpm. Blood pressure 125/67 but previously during the night, patient was 88/56. Repeat blood work reveals hemoglobin 8.1, BUN 49 creatinine 1.9. Patient is currently on Lopressor 50 mg twice daily per PEG tube which will be increased frequency to 3 times daily. Patient has also been on midodrine as ordered by pulmonary medicine. 04/28 Telemetry reviewed appears to be atrial tachycardia in the 120s. Yesterday, Lopressor 50 mg was increased frequency to 3 times daily. Blood pressure 129/83, pulse ox 93% on 2 L nasal cannula. Repeat blood work reveals hemoglobin of 8.1. BUN 45 creatinine 2. 04/29 Patient remains tachycardic in the 120s. Yesterday we increased amiodarone to 200 mg daily. Blood pressure 99/64, pulse ox 97% on 2 L nasal cannula. 04/30/2024 Patient examined this morning the bedside. Patient pulled out his PEG tube yesterday and was transferred to [facility] for need for IV medications for heart rate control. Patient currently denies chest pain or pressure. He denies shortness of breath. He remains in atrial fibrillation with heart rate around 120. He is currently receiving IV Lopressor every 6 hours. Patient is scheduled for PEG tube placement on Saturday with Dr. Looney. PHYSICAL EXAM: VITAL SIGNS: Reviewed. GENERAL: Well-developed in no acute distress. HEENT: Head is normocephalic. Pupils are equal, round. Sclerae anicteric. Mucous membranes of the mouth are moist. Neck supple. No JVD or thyromegaly LUNGS: Respirations even and unlabored. Lungs essentially clear to auscultation bilaterally. HEART: Irregular rate and rhythm. S1 and S2 heard. ABDOMEN: Soft. Nondistended. Nontender. EXTREMITIES: Normal range of motion. No clubbing or cyanosis. Peripheral pulses intact. No lower extremity edema NEUROLOGIC: Awake and alert. ASSESSMENT: Shortness of breath, etiology unclear, VQ scan negative for PE, not volume overloaded on clinical examination Acute hypoxic respiratory failure requiring supplemental oxygen Abnormal troponins, flat, type II [place] secondary to oxygen supply and demand mismatch Recent balloon angioplasty and stenting of right SFA and right popliteal artery, 04/08/2024 Severe pulmonary hypertension Peripheral arterial disease Paroxysmal atrial fibrillation with RVR Atrial tachycardia History of CVA Hypertension Hyperlipidemia Diabetes History of PEG tube placement New onset cardiomyopathy, ischemic versus nonischemic Anemia s/p 5 units RBC transfusion PLAN: Continue to hold anticoagulation secondary to anemia Patient unable to take oral medications. Patient pulled out his PEG tube yesterday. Patient is scheduled to have his PEG tube reinserted on Saturday with Dr. Looney In the interim, begin IV Cardizem for rate control. Will discontinue after patient receives new PEG tube on Saturday Continue IV push metoprolol Continue telemetry monitoring Further recommendations pending patient course Nurse practitioner note has been reviewed by physician. Signing provider agrees with the documented findings, assessment, and plan of care documented by [employer] REPA[employer]ER as a scribe. Objective - Vital Signs Vital signs: Vital Signs Temp 97.6 F 04/30/24 08:35 Pulse 119 H 04/30/24 08:35 Resp 18 04/30/24 08:35 BP 127/78 04/30/24 08:35 Pulse Ox 95 04/30/24 08:35 FiO2 Intake & Output 04/29/24 04/30/24 04/30/24 18:59 06:59 18:59 Output Total 250 Balance -250 Weight 104.6 kg Output: Urine 250 Stool 0 Other: Voiding Method Toilet Toilet Toilet # Voids 1 - Labs CBC & Chem 7: 04/28/24 04:31 04/28/24 04:31 Labs: Abnormal Lab Results - Last 24 Hours (Table) 04/29/24 Range/Units 16:47 POC Glucose (mg/dL) 113 H (70-110) mg/dL
[2024-04-30] MEDS: SODIUM CHLORIDE 0.9% 1,000 ML IV SCH (13:35)
[2024-04-30] MEDS: AMPICILLIN-SULBACTAM 3 GM in SODIUM CHLORIDE 0.9% 100 ML IVPB SCH (13:35)
[2024-04-30] MEDS: DILTIAZEM 125 MG in SODIUM CHLORIDE 0.9% 100 ML IV SCH (14:02)
[2024-04-30] MEDS: DILTIAZEM DRIP BOLUS FROM BAG 1 MG SOLN IV ONE (14:03)
--- NOTE | 2024-04-30 15:16 | P.PN ---
Subjective Progress Note Date: 04/27/24 Principal diagnosis: Reason for follow-up is right foot wound and cellulitis Patient is a 63-year-old male with a past medical history significant for diabetes mellitus hypertension hyperlipidemia pneumonia CVA TIA COPD patient did have a right big toe amputation done by and was recently admitted to the hospital concerning for pain to the right foot and cold feeling patient has been diagnosed with PAD and is s/p peripheral intervention by interventional cardiology with angioplasty of SFA and right popliteal arteries however unsuccessful angioplasty of the right anterior tibial artery patient presented to hospital with weakness hypoxemia. On today's evaluation that is 04/27/2024,the patient remains to be afebrile, patient is on 2 L nasal cannula supplemental oxygen and denies any shortness of breath no chest pain or worsening cough.Patient denies having any nausea or vomiting, no abdominal pain and no diarrhea has been reported Patient white count is 9.37 creatinine is 1.9 Objective - Vital Signs Vital signs: Vital Signs Temp 97.6 F 04/27/24 19:17 Pulse 119 H 04/27/24 19:17 Resp 20 04/27/24 19:17 BP 120/75 04/27/24 19:17 Pulse Ox 93 L 04/27/24 19:17 FiO2 Intake & Output 04/27/24 04/27/24 04/28/24 06:59 18:59 06:59 Intake Total 387 Balance 387 Weight 95.5 kg Intake: Tube Feeding 387 Other: Voiding Method Incontinent Toilet # Voids 3 # Bowel Movements 1 - Labs CBC & Chem 7: 04/28/24 04:31 04/28/24 04:31 Labs: Abnormal Lab Results - Last 24 Hours (Table) 04/27/24 04/27/24 04/27/24 Range/Units 01:49 03:48 03:48 RBC 2.51 L (4.40-5.60) X 10*6/uL Hgb 8.1 L (13.0-17.0) g/dL Hct 26.2 L (39.6-50.0) % MCV 104.4 H (80.0-97.0) FL MCH 32.3 H (27.0-32.0) pg MCHC 30.9 L (32.0-37.0) g/dL RDW 22.1 H (11.5-14.5) % Immature Gran # 0.12 H (0.00-0.04) X 10*3/uL Monocytes # 1.06 H (0.20-1.00) X 10*3/uL Basophils # 0.11 H (0.00-0.10) X 10*3/uL NRBC/100 WBC Diff 0.28 H (0.00-0.01) X 10*3/uL Anisocytosis (manual) 2+ A Macrocytosis (manual) 2+ A BUN 49.9 H (9.0-27.0) mg/dL Creatinine 1.9 H (0.6-1.5) mg/dL Est GFR (CKD-EPI) 39 L (>=60) BUN/Creatinine Ratio 26.26 H (12.00-20.00) Ratio POC Glucose (mg/dL) 113 H (70-110) mg/dL Calcium 8.3 L (8.7-10.3) mg/dL Total Bilirubin 0.2 L (0.3-1.2) mg/dL AST 43 H (14-35) U/L ALT 58 H (10-49) U/L Total Protein 5.2 L (6.2-8.2) g/dL Albumin 3.1 L (3.8-4.9) g/dL Albumin/Globulin Ratio 1.48 L (1.60-3.17) Ratio 04/27/24 04/27/24 Range/Units 11:13 18:03 RBC (4.40-5.60) X 10*6/uL Hgb (13.0-17.0) g/dL Hct (39.6-50.0) % MCV (80.0-97.0) FL MCH (27.0-32.0) pg MCHC (32.0-37.0) g/dL RDW (11.5-14.5) % Immature Gran # (0.00-0.04) X 10*3/uL Monocytes # (0.20-1.00) X 10*3/uL Basophils # (0.00-0.10) X 10*3/uL NRBC/100 WBC Diff (0.00-0.01) X 10*3/uL Anisocytosis (manual) Macrocytosis (manual) BUN (9.0-27.0) mg/dL Creatinine (0.6-1.5) mg/dL Est GFR (CKD-EPI) (>=60) BUN/Creatinine Ratio (12.00-20.00) Ratio POC Glucose (mg/dL) 121 H 118 H (70-110) mg/dL Calcium (8.7-10.3) mg/dL Total Bilirubin (0.3-1.2) mg/dL AST (14-35) U/L ALT (10-49) U/L Total Protein (6.2-8.2) g/dL Albumin (3.8-4.9) g/dL Albumin/Globulin Ratio (1.60-3.17) Ratio Assessment and Plan (1) Cellulitis of right foot Current Visit: No Status: Acute Code(s): L03.115 - CELLULITIS OF RIGHT LOWER LIMB SNOMED Code(s): 04225340539359229 (2) Diabetic foot ulcer Current Visit: No Status: Acute Code(s): E11.621 - TYPE 2 DIABETES MELLITUS WITH FOOT ULCER; L97.509 - NON-PRESSURE CHRONIC ULCER OTH PRT UNSP FOOT W UNSP SEVERITY SNOMED Code(s): 766769191 Plan: 1patient presenting to the hospital mostly with generalized weakness low O2 sats possibly underlying cardiac etiology for the patient being managed by cardiology, patient also have a 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 2patient is afebrile, patient local wound care to the right foot has been switched over to Medihoney followed by moist dressing continue with Unasyn Dictation was produced using [employer] dictation software. please excuse any grammatical, word or spelling errors. Time with Patient: Less than 30
--- NOTE | 2024-04-30 15:17 | P.PN ---
Subjective Progress Note Date: 04/29/24 Principal diagnosis: Reason for follow-up is right foot wound and cellulitis Patient is a 63-year-old male with a past medical history significant for diabetes mellitus hypertension hyperlipidemia pneumonia CVA TIA COPD patient did have a right big toe amputation done by and was recently admitted to the hospital concerning for pain to the right foot and cold feeling patient has been diagnosed with PAD and is s/p peripheral intervention by interventional cardiology with angioplasty of SFA and right popliteal arteries however unsuccessful angioplasty of the right anterior tibial artery patient presented to hospital with weakness hypoxemia. On today's evaluation that is 04/29/2024, Patient is afebrile patient is currently on 3 L nasal oxygen and denies having any shortness of breath, the patient denies any chest pain or cough, the patient seemed very upset yelling and wants to go home. No new labs were done today Objective - Vital Signs Vital signs: Vital Signs Temp 97.5 F L 04/29/24 07:05 Pulse 121 H 04/29/24 10:24 Resp 20 04/29/24 10:24 BP 99/64 04/29/24 07:05 Pulse Ox 97 04/29/24 08:59 FiO2 Intake & Output 04/28/24 04/29/24 04/29/24 18:59 06:59 18:59 Output Total 400 350 Balance -400 -350 Weight 104.3 kg 105.3 kg Output: Urine 400 350 Other: Voiding Method Toilet Toilet Toilet # Voids 1 1 1 - Exam GENERAL DESCRIPTION: Middle-age male lying in bed in no distress RESPIRATORY SYSTEM: Unlabored breathing , decreased breath sounds at bases HEART: S1 S2 regular rate and rhythm , ABDOMEN: Soft , no tenderness EXTREMITIES: Right foot wound base with no significant slough tissue surrounding redness - Labs CBC & Chem 7: 04/28/24 04:31 04/28/24 04:31 Labs: Abnormal Lab Results - Last 24 Hours (Table) 04/28/24 04/28/24 04/29/24 Range/Units 18:05 23:53 05:49 POC Glucose (mg/dL) 137 H 125 H 131 H (70-110) mg/dL 04/29/24 Range/Units 11:35 POC Glucose (mg/dL) 131 H (70-110) mg/dL Assessment and Plan (1) Cellulitis of right foot Current Visit: No Status: Acute Code(s): L03.115 - CELLULITIS OF RIGHT LOWER LIMB SNOMED Code(s): 50405647589115148 (2) Diabetic foot ulcer Current Visit: No Status: Acute Code(s): E11.621 - TYPE 2 DIABETES MELLITUS WITH FOOT ULCER; L97.509 - NON-PRESSURE CHRONIC ULCER OTH PRT UNSP FOOT W UNSP SEVERITY SNOMED Code(s): 281195509 Plan: 1patient presenting to the hospital mostly with generalized weakness low O2 sats possibly underlying cardiac etiology for the patient being managed by cardiology, patient also have a 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 2patient is afebrile white count has been normal, 3-patient local wound care to the right foot to continue Medihoney followed by moist dressing, we will discontinue Unasyn and start the patient on Augmentin Dictation was produced using [employer] dictation software. please excuse any grammatical, word or spelling errors. Time with Patient: Less than 30
--- NOTE | 2024-04-30 15:17 | P.PN ---
Subjective Progress Note Date: 04/28/24 Principal diagnosis: Reason for follow-up is right foot wound and cellulitis Patient is a 63-year-old male with a past medical history significant for diabetes mellitus hypertension hyperlipidemia pneumonia CVA TIA COPD patient did have a right big toe amputation done by and was recently admitted to the hospital concerning for pain to the right foot and cold feeling patient has been diagnosed with PAD and is s/p peripheral intervention by interventional cardiology with angioplasty of SFA and right popliteal arteries however unsuccessful angioplasty of the right anterior tibial artery patient presented to hospital with weakness hypoxemia. On today's evaluation that is 04/28/2024, the patient continues to be afebrile, the patient is on 2 L nasal oxygen and breathing comfortably, the Pt denies having any chest pain or any worsening cough, the patient denies having any abdominal pain no vomiting or any diarrhea has been reported by the nursing staf f. Patient white count is 9.78 creatinine is 2.0 Objective - Vital Signs Vital signs: Vital Signs Temp 97.6 F 04/28/24 07:02 Pulse 95 04/28/24 10:00 Resp 18 04/28/24 10:42 BP 129/83 04/28/24 07:02 Pulse Ox 93 L 04/28/24 10:42 FiO2 Intake & Output 04/27/24 04/28/24 04/28/24 18:59 06:59 18:59 Output Total 425 Balance -425 Weight 104.3 kg Output: Urine 425 Other: Voiding Method Toilet Toilet Toilet # Voids 1 # Bowel Movements 1 - Exam GENERAL DESCRIPTION: Middle-age male lying in bed in no distress RESPIRATORY SYSTEM: Unlabored breathing , decreased breath sounds at bases HEART: S1 S2 regular rate and rhythm , ABDOMEN: Soft , no tenderness EXTREMITIES: Right foot wound base with no significant slough tissue surrounding redness - Labs CBC & Chem 7: 04/28/24 04:31 04/28/24 04:31 Labs: Abnormal Lab Results - Last 24 Hours (Table) 04/27/24 04/28/24 04/28/24 Range/Units 18:03 04:31 04:31 RBC 2.59 L (4.40-5.60) X 10*6/uL Hgb 8.1 L (13.0-17.0) g/dL Hct 27.0 L (39.6-50.0) % MCV 104.2 H (80.0-97.0) FL MCHC 30.0 L (32.0-37.0) g/dL RDW 23.6 H (11.5-14.5) % Immature Gran # 0.08 H (0.00-0.04) X 10*3/uL Monocytes # 1.11 H (0.20-1.00) X 10*3/uL NRBC/100 WBC Diff 0.28 H (0.00-0.01) X 10*3/uL BUN 45.1 H (9.0-27.0) mg/dL Creatinine 2.0 H (0.6-1.5) mg/dL Est GFR (CKD-EPI) 37 L (>=60) BUN/Creatinine Ratio 22.55 H (12.00-20.00) Ratio Glucose 119 H (70-110) mg/dL POC Glucose (mg/dL) 118 H (70-110) mg/dL Calcium 8.5 L (8.7-10.3) mg/dL AST 61 H (14-35) U/L ALT 63 H (10-49) U/L Total Protein 5.4 L (6.2-8.2) g/dL Albumin 3.2 L (3.8-4.9) g/dL Albumin/Globulin Ratio 1.45 L (1.60-3.17) Ratio 04/28/29 04/ Range/Units 05:56 11:48 RBC (4.40-5.60) X 10*6/uL Hgb (13.0-17.0) g/dL Hct (39.6-50.0) % MCV (80.0-97.0) FL MCHC (32.0-37.0) g/dL RDW (11.5-14.5) % Immature Gran # (0.00-0.04) X 10*3/uL Monocytes # (0.20-1.00) X 10*3/uL NRBC/100 WBC Diff (0.00-0.01) X 10*3/uL BUN (9.0-27.0) mg/dL Creatinine (0.6-1.5) mg/dL Est GFR (CKD-EPI) (>=60) BUN/Creatinine Ratio (12.00-20.00) Ratio Glucose (70-110) mg/dL POC Glucose (mg/dL) 154 H 133 H (70-110) mg/dL Calcium (8.7-10.3) mg/dL AST (14-35) U/L ALT (10-49) U/L Total Protein (6.2-8.2) g/dL Albumin (3.8-4.9) g/dL Albumin/Globulin Ratio (1.60-3.17) Ratio Assessment and Plan (1) Cellulitis of right foot Current Visit: No Status: Acute Code(s): L03.115 - CELLULITIS OF RIGHT LOWER LIMB SNOMED Code(s): 25948101471826443 (2) Diabetic foot ulcer Current Visit: No Status: Acute Code(s): E11.621 - TYPE 2 DIABETES MELLITUS WITH FOOT ULCER; L97.509 - NON-PRESSURE CHRONIC ULCER OTH PRT UNSP FOOT W UNSP SEVERITY SNOMED Code(s): 614352688 Plan: 1patient presenting to the hospital mostly with generalized weakness low O2 sats possibly underlying cardiac etiology for the patient being managed by cardiology, patient also have a 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 2patient is afebrile white count has been normal, 3-patient local wound care to the right foot to continue Medihoney followed by moist dressing continue with Unasyn Dictation was produced using [employer] dictation software. please excuse any grammatical, word or spelling errors. Time with Patient: Less than 30
--- NOTE | 2024-04-30 15:18 | P.PN ---
Subjective Progress Note Date: 04/30/24 Principal diagnosis: Reason for follow-up is right foot wound and cellulitis Patient is a 63-year-old male with a past medical history significant for diabetes mellitus hypertension hyperlipidemia pneumonia CVA TIA COPD patient did have a right big toe amputation done by and was recently admitted to the hospital concerning for pain to the right foot and cold feeling patient has been diagnosed with PAD and is s/p peripheral intervention by interventional cardiology with angioplasty of SFA and right popliteal arteries however unsuccessful angioplasty of the right anterior tibial artery patient presented to hospital with weakness hypoxemia. Patient apparently has pulled out his PEG tube and also developed A-fib with RVR for the patient was transferred to telemetry floor on 04/30/2024 On today's evaluation that is 04/30/2024, patient has been afebrile, patient is breathing comfortably and is currently on 3 L nasal cannula oxygen, patient denies having any significant cough no chest pain shortness of breath, patient denies nausea vomiting or diarrhea and no abdominal pain and denies pain to the right foot wound. No new labs were done today Objective - Vital Signs Vital signs: Vital Signs Temp 97.6 F 04/30/24 08:35 Pulse 119 H 04/30/24 08:35 Resp 18 04/30/24 08:35 BP 127/78 04/30/24 08:35 Pulse Ox 95 04/30/24 08:35 FiO2 Intake & Output 04/29/24 04/30/24 04/30/24 18:59 06:59 18:59 Output Total 250 Balance -250 Weight 104.6 kg 104.6 kg Output: Urine 250 Stool 0 Other: Voiding Method Toilet Toilet Toilet # Voids 1 - Exam GENERAL DESCRIPTION: Middle-age male lying in bed in no distress RESPIRATORY SYSTEM: Unlabored breathing , decreased breath sounds at bases HEART: S1 S2 regular rate and rhythm , ABDOMEN: Soft , no tenderness EXTREMITIES: Right foot wound wound is currently dressed - Labs CBC & Chem 7: 04/28/24 04:31 04/28/24 04:31 Labs: Abnormal Lab Results - Last 24 Hours (Table) 04/29/24 Range/Units 16:47 POC Glucose (mg/dL) 113 H (70-110) mg/dL Assessment and Plan (1) Cellulitis of right foot Current Visit: No Status: Acute Code(s): L03.115 - CELLULITIS OF RIGHT LOWER LIMB SNOMED Code(s): 05458318178683004 (2) Diabetic foot ulcer Current Visit: No Status: Acute Code(s): E11.621 - TYPE 2 DIABETES MELLITUS WITH FOOT ULCER; L97.509 - NON-PRESSURE CHRONIC ULCER OTH PRT UNSP FOOT W UNSP SEVERITY SNOMED Code(s): 444134523 Plan: 1patient presenting to the hospital mostly with generalized weakness low O2 sats possibly underlying cardiac etiology for the patient being managed by cardiology, patient also have a 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 2patient is afebrile white count has been normal, as the patient pulled out his PEG tube antibiotic has been switched back to Unasyn to continue along with a local wound care and monitor clinical course closely Dictation was produced using [employer] dictation software. please excuse any grammatical, word or spelling errors. Time with Patient: Less than 30
[2024-04-30] MEDS ORDERED: AMPICILLIN-SULBACTAM 3 GM in SODIUM CHLORIDE 0.9% 100 ML IVPB SCH (16:00)
[2024-04-30 16:04] LABS: Glucose,Whole Blood 64 mg/dL (70-110)
[2024-04-30] MEDS: DEXTROSE 50% SYRINGE 50 ML IVP ONE (16:13)
[2024-04-30 16:43] LABS: Glucose,Whole Blood 100 mg/dL (70-110)
[2024-04-30 20:17] LABS: Glucose,Whole Blood 68 mg/dL (70-110)
[2024-04-30 20:35] LABS: Glucose,Whole Blood 80 mg/dL (70-110)
[2024-05-01 01:34] LABS: Glucose,Whole Blood 94 mg/dL (70-110)
[2024-05-01 05:59] LABS: Glucose,Whole Blood 72 mg/dL (70-110)
[2024-05-01 06:22] LABS: Anisocytosis Marked; Basophils % (A) 0 %; Eosinophils # (A) 0.3 k/uL (0-0.7); Eosinophils % (A) 4 %; HCT 28.6 % (39.0-53.0); HGB 8.5 gm/dL (13.0-17.5); Hypochromasia Marked; Lymphocytes # (A) 0.8 k/uL (1.0-4.8); Lymphocytes % (A) 10 %; MCH 32.1 pg (25.0-35.0); MCHC 29.7 g/dL (31.0-37.0); Macrocytosis Marked; Mean Platelet Volume 8.4; Monocytes # (A) 0.5 k/uL (0-1.0); Monocytes % (A) 7 %; Neutrophils # (A) 5.6 k/uL (1.3-7.7); Neutrophils % (A) 75 %; Platelet Count 319 k/uL (150-450); Poikilocytosis Moderate; RBC 2.64 m/uL (4.30-5.90); WBC 7.4 k/uL (3.8-10.6)
[2024-05-01 06:33] LABS: Magnesium 2.1 mg/dL (1.6-2.3); Phosphorus 4.1 mg/dL (2.5-4.5)
[2024-05-01 06:35] LABS: ALT 91 U/L (4-49); AST 67 U/L (17-59); African American GFR (CKD) 40 (>60 ml/min/1.73 sqM); Albumin 2.7 g/dL (3.5-5.0); Alkaline Phosphatase 79 U/L (38-126); Anion Gap 4 mmol/L; Blood Urea Nitrogen 38 mg/dL (9-20); Calcium 7.5 mg/dL (8.4-10.2); Carbon Dioxide 28 mmol/L (22-30); Chloride 110 mmol/L (98-107); Glucose 61 mg/dL (74-99); Non-African American GFR(CKD) 34 (>60 ml/min/1.73 sqM); Potassium 5.1 mmol/L (3.5-5.1); Sodium 142 mmol/L (137-145); Total Bilirubin 0.9 mg/dL (0.2-1.3); Total Protein 5.3 g/dL (6.3-8.2)
[2024-05-01 06:37] LABS: Ionized Calcium 4.3 mg/dL (4.5-5.3)
[2024-05-01 06:42] LABS: MCV 108.2 fL (80.0-100.0); RDW 25.9 % (11.5-15.5)
[2024-05-01] MEDS: DEXTROSE 50% SYRINGE 50 ML IVP ONE (08:16)
[2024-05-01 08:17] LABS: Glucose,Whole Blood 68 mg/dL (70-110)
[2024-05-01 08:39] LABS: Glucose,Whole Blood 107 mg/dL (70-110)
--- NOTE | 2024-05-01 10:32 | P.PN ---
Subjective Progress Note Date: 05/01/24 Everett Juárez, is a 63-year-old male who presented to [facility] emergency room with a chief complaint of worsening shortness of breath and generalized weakness, patient was recently admitted to [facility] with peripheral vascular disease right foot osteomyelitis and underwent stenting of the right SFA by Dr. Dillard, he has a previous history of right great toe amputation. He was evaluated in the emergency room vital examination on presentation revealed a temperature of 98.9 pulse 110 respiration 18 blood pressure 114/72 pulse ox 96% on room air Laboratory data reveals a white blood count of 8.7 hemoglobin 11.4 platelet count 283 sodium 139 potassium 4.9 chloride 110 CO2 23 BUN 41 creatinine 2.01 D- dimer was elevated at 2.10, troponin level was elevated at 0.043 Testing in the emergency room revealed chest x-ray done in the emergency room revealed cardiomegaly and mild pulmonary vascular congestion suggestive of congestive heart failure, VQ scan showed no evidence for pulmonary embolism, EKG revealed atrial fibrillation with moderate T wave abnormalities suggestive of lateral ischemia. Patient was admitted to medical floor for further evaluation and treatment Past medical history is significant for history of atrial fibrillation, history of peripheral arterial disease with previous history of right great toe amputation, history of COPD, history of diabetes mellitus type 2, history of hyperkalemia, history of chronic kidney disease. On review of systems patient is alert and oriented x 3 in no apparent distress, he is complaining of generalized weakness, complaining of shortness of breath, which is worse with activity, and complaining of right foot pain, otherwise he denies any complaints, there is no fever or chills no headache or dizziness no chest pain, no cough no nausea or vomiting no abdominal pain no diarrhea and no urinary symptoms On 04/14/2024 patient is alert and oriented 3.Patient remains on IV Unasyn and IV Lasix. 2-D echo completed showing an EF of 35-40%. Current vital signs temp 98.3, heart 81, respiratory rate 18, blood pressure 135/67 with a pulse ox of 100% on 3 L. Patient reports improvement with shortness of breath. Patient denies nausea vomiting or diarrhea. Patient denies any urinary burning or frequency On 04/15/2024 Patient is alert and oriented 3. Patient remains on IV Unasyn. Patient has been transitioned to by mouth Lasix.Current vital signs temp 97.1, heart rate 98, respiratory rate 18, blood pressure 121/79 with pulse ox 96% on 3 L. Patient denies chest pain or shortness breath. Patient denies nausea vomiting or diarrhea. Patient denies any urinary burning or frequency. On 04/16/2024 he is alert and oriented x 3 in no apparent distress he reports improvement in his shortness of breath there is no fever or chills no headache or dizziness no chest pain no cough no nausea or vomiting no abdominal pain no diarrhea and no urinary symptoms. On 04/17/2024 patient is alert and oriented x 3. Current vital signs Temp 98.1, heart rate 100, respiratory rate 16, blood pressure 153/81 with a pulse ox of 97% on 2 L. Patient remains on IV Unasyn. Awaiting final antibiotic recommenda tions per ID. Patient denies chest pain or shortness of breath. Patient denies nausea vomiting or diarrhea. Patient denies any urinary burning or frequency. On 04/18/2024 patient was seen and examined on the medical floor he is alert and oriented x 3 in no apparent distress there is no fever or chills no headache or dizziness no chest pain no shortness of breath no cough no nausea or vomiting no abdominal pain no diarrhea no urinary symptoms, he is still maintained on oxygen supplements, patient need to be assessed for need for home oxygen, he is also maintained on tube feeding, lead case manager is working on arrangement for tube feeding at home. Otherwise continue with current management will recheck in a.m.. On 04/19/2024 patient is alert and oriented x 3. Patient is maintained on 3 L n roberth cannula. Patient also maintained on IV Unasyn. Awaiting final IV recommendations from infectious disease. Current vital signs Temp 98.2, heart rate 82, blood pressure 116/70 with a pulse ox of 97% on 3 L patient denies chest pain or shortness of breath. Patient denies nausea vomiting or diarrhea. Patient denies any urinary burning or frequency On 04/20/2024 patient was seen and examined on the medical floor he is alert and oriented x 3 in no apparent distress, there is no fever or chills no headache or dizziness no chest pain no shortness of breath no cough no nausea or vomiting no abdominal pain no diarrhea no urinary symptoms, patient is still having difficulty with hyperkalemia, he is maintained on IV fluids and [facility] nephrology are following, will recheck labs in a.m. On 04/21/2024 patient is alert and oriented x 3. Potassium remains elevated at 5.9 awaiting further recommendations from nephrology standpoint. Patient denies chest pain or shortness of breath. Patient denies nausea vomiting or diarrhea. Patient denies any urinary burning or frequency On 04/22/2024 patient is alert and oriented x 3. Patient received 1 unit PRBCs for hemoglobin of 6.8 yesterday. GI services were consulted stool for occult blood ordered. Nephrology service is following for elevated potassium level. At this time patient denies chest pain or shortness of breath. Patient denies nausea vomiting or diarrhea. Patient denies any urinary burning frequency. On 04/23/2024 patient was seen and examined on the medical floor he is alert and oriented x 3 in no apparent distress, his hemoglobin today is again 6.01 unit of red blood cell transfusion was ordered, he was reevaluated by gastroenterology and plans are for EGD and colonoscopy tomorrow, otherwise he denies any complaints there is no fever or chills no headache or dizziness no chest pain no shortness of breath no cough no nausea or vomiting no abdominal pain no diarrhea no urinary symptoms On 04/24/2024 patient is alert and oriented 3. Plans for EGD and colonoscopy today with GI services.Patient had episodes of hypotension throughout night received IV bolus. Continue to transfuse patient for hemoglobin less than 7. Patient remains on IV Unasyn. This time patient denies chest pain or shortness breath. Patient denies nausea vomiting or diarrhea. Patient denies any urinary burning or frequency. On 04/25/2024 patient was seen and examined on the medical floor he is alert and oriented x 3 in no apparent distress there is no fever or chills no headache or dizziness no chest pain no shortness of breath no cough no nausea or vomiting no abdominal pain no diarrhea no urinary symptoms, hemoglobin is down again to 6.7 patient will be given 1 unit of red blood cell transfusion, EGD and colonoscopy results done yesterday were reviewed, at this time will consult Dr. Jackson regarding recurrent pneumonia requiring multiple red blood cell transfusion, continue with tube feeding at this time. On 04/26/2024 patient is alert and oriented x 3. Hemoglobin today 8.0. Awaiting oncology input. Patient denies chest pain or shortness of breath. Patient denies nausea vomiting or diarrhea. Patient denies any urinary burning or frequency. Current vital signs Temp 97.7, heart rate 91, respiratory rate 16, blood pressure 118/60 with pulse ox of 98% on 4 L On 04/27/2024 patient was seen and examined on the medical floor he is alert and oriented x 3 in no apparent distress he is complaining of generalized weakness otherwise he denies any specific complaints there is no fever or chills no headache or dizziness no chest pain no shortness of breath no cough no nausea or vomiting no abdominal pain no diarrhea no urinary symptoms. On 04/28/2024 patient was seen and examined on the medical floor he is alert and oriented x 3 in no apparent distress there is no fever or chills no headache or dizziness no chest pain no shortness of breath no cough no nausea or vomiting no abdominal pain no diarrhea and no urinary symptoms, hemoglobin is stabilizing around 8 will continue to monitor On 04/29/2024 patient is alert and oriented 3.heart rate elevated at 121 this AM. Patient being followed by cardiology services was given by mouth amiodarone awaiting further recommendations from cardiology services. Hemoglobin remained stable at 8.1. Patient denies chest pain or shortness of breath. Patient denies nausea vomiting or diarrhea. Patient denies any urinary burning or frequency On 04/30/2024 patient is alert resting comfortably in bed. Patient pulled out PEG tube yesterday. Patient unable to take pills by mouth. Surgical service is consulted for new PEG tube placement unable to do until Saturday due to patient being on Plavix Plavix currently on hold. Heart rate remains elevated Lopressor IV push has been ordered. Current vital signs temp 97.7, heart rate 127, blood pressure 118/72 with pulse ox 96% on 3 L. Patient denies chest pain or shortness of breath. Patient denies nausea vomiting or diarrhea. Patient denies any urinary burning or frequency on 05/01/2024 patient is resting comfortably in bed. Awaiting PEG tube placement on Saturday.current vital signs temp 98.1, heart rate 107, respiratory rate 18, blood pressure 115/73 with pulse ox 91% on 3 L. Patient denies chest pain or shortness of breath. Patient denies nausea vomiting or diarrhea Objective - Vital Signs Vital signs: Vital Signs Temp 98.1 F 05/01/24 08:55 Pulse 107 H 05/01/24 08:55 Resp 18 05/01/24 08:55 BP 115/73 05/01/24 08:55 Pulse Ox 91 L 05/01/24 08:55 FiO2 Intake & Output 04/30/24 05/01/24 05/01/24 18:59 06:59 18:59 Intake Total 75.333 Output Total 250 0 0 Balance -250 75.333 0 Weight 104.6 kg 104.3 kg Intake: Intake, IV Titration 75.333 Amount Diltiazem 125 mg In 75.333 Sodium Chloride 0.9% 100 ml @ 5 MG/HR 5 mls/hr IV .Q24H [facility] Rx#:[id number] Output: Urine 250 Stool 0 0 0 Other: Voiding Method Toilet Toilet Toilet - Exam In general patient is alert and oriented x 3 in no distress HEENT head normocephalic and atraumatic Neck is supple no JVD no goiter no lymphadenopathy no carotid bruit Chest examination reveals a scattered crackles in both lung [place] no wheezing Cardiac exam reveals irregular heart sounds S1 and S2 no gallops no murmurs Abdomen is soft nontender no organomegaly with normal bowel sounds Extremity exam reveals no edema no cyanosis or clubbing, the right great toe is amputated with a large ulcer at the base of the amputated right great toe with purulent discharge Neurological examination reveals no gross focal deficits - Labs CBC & Chem 7: 05/01/24 05:27 05/01/24 05:27 Labs: Abnormal Lab Results - Last 24 Hours (Table) 04/30/24 04/30/24 05/01/24 Range/Units 16:04 20:16 05:27 RBC 2.64 L (4.30-5.90) m/uL Hgb 8.5 L (13.0-17.5) gm/dL Hct 28.6 L (39.0-53.0) % MCV 108.2 H D (80.0-100.0) fL MCHC 29.7 L (31.0-37.0) g/dL RDW 25.9 H (11.5-15.5) % Lymphocytes # 0.8 L (1.0-4.8) k/uL Macrocytosis Marked A Chloride (98-107) mmol/L BUN (9-20) mg/dL Creatinine (0.66-1.25) mg/dL Glucose (74-99) mg/dL POC Glucose (mg/dL) 64 L 68 L (70-110) mg/dL Calcium (8.4-10.2) mg/dL Ionized Calcium Mary (4.5-5.3) mg/dL AST (17-59) U/L ALT (4-49) U/L Total Protein (6.3-8.2) g/dL Albumin (3.5-5.0) g/dL 05/01/24 05/01/24 05/01/24 Range/Units 05:27 05:27 08:14 RBC (4.30-5.90) m/uL Hgb (13.0-17.5) gm/dL Hct (39.0-53.0) % MCV (80.0-100.0) fL MCHC (31.0-37.0) g/dL RDW (11.5-15.5) % Lymphocytes # (1.0-4.8) k/uL Macrocytosis Chloride 110 H (98-107) mmol/L BUN 38 H (9-20) mg/dL Creatinine 2.01 H (0.66-1.25) mg/dL Glucose 61 L (74-99) mg/dL POC Glucose (mg/dL) 68 L (70-110) mg/dL Calcium 7.5 L (8.4-10.2) mg/dL Ionized Calcium Mary 4.3 L (4.5-5.3) mg/dL AST 67 H (17-59) U/L ALT 91 H (4-49) U/L Total Protein 5.3 L (6.3-8.2) g/dL Albumin 2.7 L (3.5-5.0) g/dL Assessment and Plan Plan: Worsening shortness of breath, multifactorial, possibly related to acute conges tive heart failure, and underlying COPD Atrial fibrillation, with rapid ventricular response on presentation, heart rate was 110 New onset cardiomyopathy. Anemia status post EGD and colonoscopy on 04/24/2024 Generalized weakness Large ulcer at the base of the right great toe with purulent discharge, patient was maintained on oral Augmentin as outpatient, infectious disease consultation requested Underlying history of peripheral arterial disease, with recent history of angioplasty and stent placement to the right lower extremity on 04/08/2024 Underlying history of diabetes mellitus Underlying history of chronic obstructive pulmonary disease Underlying history of chronic kidney disease Underlying history of hyperkalemia Underlying history of chronic continued tobacco abuse Patient pulled out PEG tube. Surgical surfaces consulted. Plans for PEG tube placement on 05/04/2024 At this time patient is admitted to telemetry floor Home medications reviewed and reordered Consultation for cardiology and pulmonary were requested in the emergency room For DVT prophylaxis, patient is maintained on scds (eliquis on hold due to anemia) Will add infectious disease consultation in regard to base of right great toe ulcer Will follow closely
--- NOTE | 2024-05-01 11:04 | P.PN ---
Subjective HISTORY OF PRESENT ILLNESS: This is a 63-year-old male with a past medical history significant for paroxysmal atrial fibrillation, peripheral arterial disease, hypertension, hyperlipidemia, and diabetes. Patient follows in the office with Dr. Gonzalez. We have been asked to see the patient in consultation for elevated troponin. Patient examined at the bedside. The patient presented to the hospital with a chief complaint of shortness of breath. Patient states he has been feeling short of breath for the past couple weeks. He states that he checked his oxygen saturation at home and it was found to be in the high 80s. The patient denies having any chest pain or pressure. Patient was found to have elevated D-dimer of 2.10. He underwent VQ scan which was negative for pulmonary embolism. Vital signs are stable. It is noted that the patient underwent balloon angioplasty and stenting of right SFA and right popliteal. DIAGNOSTICS: - EKG reveals atrial fibrillation with controlled ventricular rate. - Chest xray cardiomegaly and mild pulmonary vascular congestion. - Laboratory data: WBC 8.7. Hemoglobin 11.4. Platelet count 283. D-dimer 2.10. Sodium 139. Potassium 4.9. BUN 41. Creatinine 2.01. Troponin 0.036. 0.038. 0.043. - Current home cardiac medications include amiodarone 100 mg daily, Eliquis 2.5 mg twice a day, Plavix 75 mg daily, losartan 25 mg daily, rosuvastatin 20 mg daily, metoprolol tartrate 50 mg twice a day. - Most recent echocardiogram obtained in June 2021 revealed ejection fraction 55 to 60%, severe pulmonary hypertension 04/14/2024 Patient examined this morning. Patient currently denies chest pain or pressure. He reports improvement in his shortness of breath. Echocardiogram completed re vealing ejection fraction 35 to 40%, mild MR, mild TR. 04/15/2024 Patient examined this morning at bedside. Patient currently denies chest pain or pressure. He denies shortness of breath. Vital signs are stable. 04/23 Cardiology was re-counseled that secondary to anemia and recommendations for bl ood thinners. Patient denies any chest pain or pressure. He does feel significantly short of breath. Hemoglobin down to 6.4 and packed red blood cells were reordered. He states he is feeling sick. And tired and is questioning whether he even wants blood transfusions. He denies any hematochezia or melena. 04/24/2024 patient examined this morning to bedside. Patient currently denies chest pain or pressure. He denies shortness of breath. Hemoglobin today 6.3. He is scheduled to undergo endoscopy today. 04/27 Patient was previously seen by cardiology and signed off on 04/24. We have been reconsulted for tachycardia and hypotension. EKG is atrial tachycardia versus junctional rhythm 122 bpm. Blood pressure 125/67 but previously during the night, patient was 88/56. Repeat blood work reveals hemoglobin 8.1, BUN 49 creatinine 1.9. Patient is currently on Lopressor 50 mg twice daily per PEG tube which will be increased frequency to 3 times daily. Patient has also been on midodrine as ordered by pulmonary medicine. 04/28 Telemetry reviewed appears to be atrial tachycardia in the 120s. Yesterday, Lopressor 50 mg was increased frequency to 3 times daily. Blood pressure 129/83, pulse ox 93% on 2 L nasal cannula. Repeat blood work reveals hemoglobin of 8.1. BUN 45 creatinine 2. 04/29 Patient remains tachycardic in the 120s. Yesterday we increased amiodarone to 200 mg daily. Blood pressure 99/64, pulse ox 97% on 2 L nasal cannula. 04/30/2024 Patient examined this morning the bedside. Patient pulled out his PEG tube yesterday and was transferred to [facility] for need for IV medications for heart rate control. Patient currently denies chest pain or pressure. He denies shortness of breath. He remains in atrial fibrillation with heart rate around 120. He is currently receiving IV Lopressor every 6 hours. Patient is scheduled for PEG tube placement on Saturday with Dr. Looney. 05/01/2024 Patient examined this morning at the bedside. Patient currently denies chest pain or pressure. He denies shortness of breath. He remains in atrial fibrillation with heart rate in the 70s. PHYSICAL EXAM: VITAL SIGNS: Reviewed. GENERAL: Well-developed in no acute distress. HEENT: Head is normocephalic. Pupils are equal, round. Sclerae anicteric. Mucous membranes of the mouth are moist. Neck supple. No JVD or thyromegaly LUNGS: Respirations even and unlabored. Lungs essentially clear to auscultation bilaterally. HEART: Irregular rate and rhythm. S1 and S2 heard. ABDOMEN: Soft. Nondistended. Nontender. EXTREMITIES: Normal range of motion. No clubbing or cyanosis. Peripheral pulses intact. No lower extremity edema NEUROLOGIC: Awake and alert. ASSESSMENT: Shortness of breath, etiology unclear, VQ scan negative for PE, not volume overloaded on clinical examination Acute hypoxic respiratory failure requiring supplemental oxygen Abnormal troponins, flat, type II MN secondary to oxygen supply and demand mismatch Recent balloon angioplasty and stenting of right SFA and right popliteal artery, 04/08/2024 Severe pulmonary hypertension Peripheral arterial disease Paroxysmal atrial fibrillation with RVR Atrial tachycardia History of CVA Hypertension Hyperlipidemia Diabetes History of PEG tube placement New onset cardiomyopathy, ischemic versus nonischemic Anemia s/p 5 units RBC transfusion PLAN: Continue to hold anticoagulation secondary to anemia Patient unable to take oral medications. Patient pulled out his PEG tube.. Patient is scheduled to have his PEG tube reinserted on Saturday with Dr. Looney In the interim, Continue IV Cardizem for rate control. Will discontinue after patient receives new PEG tube on Saturday Continue IV push metoprolol Continue telemetry monitoring Further recommendations pending patient course Nurse practitioner note has been reviewed by physician. Signing provider agrees with the documented findings, assessment, and plan of care documented by CHILD CARE COUNSELOR as a scribe. Objective - Vital Signs Vital signs: Vital Signs Temp 98.1 F 05/01/24 08:55 Pulse 107 H 05/01/24 08:55 Resp 18 05/01/24 08:55 BP 115/73 05/01/24 08:55 Pulse Ox 91 L 05/01/24 08:55 FiO2 Intake & Output 04/30/24 05/01/24 05/01/24 18:59 06:59 18:59 Intake Total 75.333 Output Total 250 0 0 Balance -250 75.333 0 Weight 104.6 kg 104.3 kg Intake: Intake, IV Titration 75.333 Amount Diltiazem 125 mg In 75.333 Sodium Chloride 0.9% 100 ml @ 5 MG/HR 5 mls/hr IV .Q24H [facility] Rx#:[id number] Output: Urine 250 Stool 0 0 0 Other: Voiding Method Toilet Toilet Toilet - Labs CBC & Chem 7: 05/01/24 05:27 05/01/24 05:27 Labs: Abnormal Lab Results - Last 24 Hours (Table) 07/04/30/24 05/01/24 Range/Units 16:04 20:16 05:27 RBC 2.64 L (4.30-5.90) m/uL Hgb 8.5 L (13.0-17.5) gm/dL Hct 28.6 L (39.0-53.0) % MCV 108.2 H D (80.0-100.0) fL MCHC 29.7 L (31.0-37.0) g/dL RDW 25.9 H (11.5-15.5) % Lymphocytes # 0.8 L (1.0-4.8) k/uL Macrocytosis Marked A Chloride (98-107) mmol/L BUN (9-20) mg/dL Creatinine (0.66-1.25) mg/dL Glucose (74-99) mg/dL POC Glucose (mg/dL) 64 L 68 L (70-110) mg/dL Calcium (8.4-10.2) mg/dL Ionized Calcium Mary (4.5-5.3) mg/dL AST (17-59) U/L ALT (4-49) U/L Total Protein (6.3-8.2) g/dL Albumin (3.5-5.0) g/dL 05/01/24 05/01/24 05/01/24 Range/Units 05:27 05:27 08:14 RBC (4.30-5.90) m/uL Hgb (13.0-17.5) gm/dL Hct (39.0-53.0) % MCV (80.0-100.0) fL MCHC (31.0-37.0) g/dL RDW (11.5-15.5) % Lymphocytes # (1.0-4.8) k/uL Macrocytosis Chloride 110 H (98-107) mmol/L BUN 38 H (9-20) mg/dL Creatinine 2.01 H (0.66-1.25) mg/dL Glucose 61 L (74-99) mg/dL POC Glucose (mg/dL) 68 L (70-110) mg/dL Calcium 7.5 L (8.4-10.2) mg/dL Ionized Calcium Mary 4.3 L (4.5-5.3) mg/dL AST 67 H (17-59) U/L ALT 91 H (4-49) U/L Total Protein 5.3 L (6.3-8.2) g/dL Albumin 2.7 L (3.5-5.0) g/dL
--- NOTE | 2024-05-01 11:21 | P.PN ---
Subjective Progress Note Date: 05/01/24 Principal diagnosis: Anemia. This is a 63-year-old white male with history of multiple medical problems including coronary artery disease, chronic atrial fibrillation, peripheral vessel occlusive disease, severe pulmonary hypertension, chronic obstructive pulmonary disease, patient normally sees Dr. Dillard on outpatient basis. 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 Admitted this time with few days history of increased shortness of breath, and according to the his O2 saturation was down in the 60s. Patient was brought into the ER, chest x-ray showed evidence of pulmonary edema, VQ scan negative for pulmonary embolism, patient was admitted and this consult was initiated. Patient is not a great historian, most of the information was obtained from his , apparently the patient had history of CVA in the past, and he had a previous PEG tube placement Labs on admission showed relatively normal CBC, no leukocytosis, D-dimer was a bit elevated at 2.10 and renal profile was abnormal with BUN of 43 and creatinine 2.01 however BNP level was 12,300 and troponin was 0.043. Since admission, the patient received 1 dose of Lasix, and he is at least 1.5 L negative fluid balance The patient is seen today April 14, 2024 in follow-up on the selective care unit. He is currently sitting up at the bedside. Awake and alert in no acute distress. Breathing a bit easier today compared to yesterday. Currently maintaining good O2 saturations in the upper 90s on 3 L/min per nasal cannula. He is afebrile. Hemodynamically stable. Echocardiogram reveals impaired left ventricular systolic function with an ejection fraction of 35 to 40%. Severe pulmonary hypertension. Moderate to severely dilated left atrium. Right first toe culture is pending. Currently on Unasyn. Glucose 125. Being nourished with Glucerna at 51 MLS per hour via his PEG tube. Anticoagulated with Eliquis. Remains on diuretics. Making adequate urine. The patient is seen today April 15, 2024 in follow-up on the selective care unit. He is awake and alert in no acute distress. Maintaining O2 saturations in the 90s on 3 L/min per nasal cannula. Hemodynamically stable. White count 8.4. Hemoglobin 11.2. Platelets 321. Sodium 143. Potassium 4.9. Bicarb 29. BUN 45. Creatinine 1.99. Glucose 126. He is continued on Unasyn. Anticoagulated with Eliquis. Remains on bronchodilators. Remains on oral diuretics. Continued on Glucerna via his PEG tube. Barium swallow is pending so the patient can continue on tube feedings in the outpatient setting Patient was evaluated today on 04/16/2024, patient is doing well, comfortable, not in any distress, on 3 L nasal cannula with O2 sats of 96%. WBC is 8.5 hemoglobin 10.5 electrolytes are relatively normal with potassium of 5.2 BUN is 48 creatinine 1.94, steadily improving since admission patient had a successful swallow evaluation study that came back unremarkable. The patient was seen today April 17, 2024 in follow-up on the selective care unit. He is currently resting comfortably in bed. Awake and alert in no acute distress. Maintaining O2 saturations in the 90s on 2 L/min per nasal cannula. Right foot culture results revealing no growth. White count 9.6. Hemoglobin 10.9. Platelets 305. Sodium 145. Potassium 5.4. Bicarb 32. BUN 56. Creatinine 1.99. Glucose 133. He remains on bronchodilators. Anticoagulated with Eliquis. Antibiotics in the form of Unasyn. Remains on Glucerna tube feedings. The patient is seen today April 18, 2024 in follow-up on the regular medical floor. He is currently sitting up at the bedside. Awake and alert in no acute distress. Maintaining O2 saturations in the 90s on 2 L/min per nasal cannula. He has been afebrile. Hemodynamically stable. He remains on Glucerna at 51 mL/h which is goal. He remains on antibiotics in the form of Unasyn. His right foot dressing is dry and intact. Glucose 140. He remains on bronchodilators. Oral diuretics. Anticoagulated with Eliquis. The patient is seen today April 19, 2024 in follow-up on the regular medical floor. He is currently sitting up in bed. Awake and alert in no acute distress. He is maintaining good O2 saturations in the 90s on 3 L/min per nasal cannula. He remains on antibiotics in the form of Unasyn. He is being nourished with Glucerna at 51 mL/h which is his goal. He is continued on bronchodilators. Anticoagulated with Eliquis. Normal saline at 100 MLS per hour. White count 10.8. Hemoglobin 9.2. Platelets 307. Sodium 147. Potassium 6.3. BUN 84. Creatinine 2.3. Glucose 105. The patient is seen today April 20, 2024 in follow-up on the regular medical floor. He is currently sitting up at the bedside. Awake and alert in no acute distress. Maintaining good O2 saturations in the 90s on 4 L/min per nasal cannula. He remains on Glucerna at 51 mL/h which is goal. 0.45% normal saline at 75 MLS per hour. Potassium 5.6. Bicarb 30. BUN 90. Creatinine 2.4. Glucose 120. He received Lokelma yesterday for his hyperkalemia. Right foot cultures revealed no growth. Sputum culture revealed Jenae. He continues on Unasyn per ID service. He remains on bronchodilators. Anticoagulated with Eliquis. Remains on oral diuretics. The patient is seen today April 21, 2024 in follow-up on the regular medical floor. He is awake and alert in no acute distress. Sitting up at the bedside. Denies any worsening shortness of breath, cough or congestion. Continues to maintain good O2 saturations in the upper 90s on 4 L/min per nasal cannula. He is afebrile. Hemodynamically stable. White count 11.0. Hemoglobin 6.8. Platelets 324. Sodium 143. Potassium 5.9. Bicarb 29. BUN 98. Creatinine 2.4. Glucose 127. Nephrology is following. He remains on bronchodilators and Unasyn. The patient is seen today April 22, 2024 in follow-up on the regular medical floor. He is currently sitting up at the bedside. Awake and alert in no acute distress. He is receiving 2 units of packed red blood cells for hemoglobin of 6.4 today. White count 10.7. Platelets 308. Sodium 141. Potassium 5.8. Bicarb 28. BUN 107. Creatinine 2.7. Glucose 150. He remains on Unasyn. Continued on bronchodilators. Remains on Lokelma for his hyperkalemia. Receiving folate acid. The patient is seen today April 23, 2024 in follow-up on the regular medical floor. He is awake and alert in no acute distress. Maintaining O2 saturations in the 90s on 2 L/min per nasal cannula. Receiving normal saline at 20 MLS per hour. Continued on Nepro PEG tube feedings at 43 mL/h which is goal. He is status post 2 units of packed red blood cells. Hemoglobin 6.0 today. To receive 1 unit of packed red blood cells today unit. GI service is following. White count 13.7. Platelets 300. Sodium 141. Potassium 5.0. Bicarb 30. BUN 109. Creatinine 2.5. Glucose 146. He remains on Unasyn. Remains on Lokelma. The patient is seen today 04/24/2020 for follow-up on the regular medical floor. He is currently resting in bed. He has been having issues with anemia and his hemoglobin was 6.3 again today. He is receiving his fourth unit of packed red blood cells. He has received 2-1/2 L of fluid resuscitation. He is awaiting EGD/colonoscopy today. He remains on Unasyn. Continued on bronchodilators. Remains on Lokelma. white count 13.9. Platelets 323. Sodium 145. Potassium 5.3. Bicarb 27. BUN 89. Creatinine 2.3. Glucose 129. Progress note dated April 25, 2024. 63-year-old male seen on the general medical floor. He is in room 475. The patient is currently resting in bed. He denies any specific complaints, although he appears to be a bit weak. He had blood work today showing a white count of 12.5, hemoglobin 6.7, hematocrit 21.4, and a platelet count of 290,000. Sodium 142, potassium 4.8, chlorides 106, CO2 26, BUN 79, creatinine 2.3. Glucose was 142. AST 77 with an ALT of 69. Sputum samples are essentially negative although there is some Jenae albicans on the most recent sputum. No recent chest x-ray. Progress note dated April 26, 2024. 63-year-old male seen today in room 475. The patient continues on oxygen by nasal cannula at 4 L, saline at 20 cc an hour, and Nepro tube feedings at 43 cc an hour. The patient's hemoglobin this morning was 8. He has received a total of 5 units of packed red blood cells, while here in the hospital. Clinically, he looks better today. Much more awake and alert. Has no complaints. Current white count 10.5, hemoglobin 8, hematocrit 24.6, platelet count 297,000. Sodium 140, potassium 4.2, chlorides 106, CO2 28, BUN 66, and creatinine 2.03. Glucose is 120. Calcium is 8.1. Cultures are negative. No recent chest x-ray. The patient is seen today April 27, 2024 in follow-up on the regular medical floor. He is currently awake and alert in no acute distress. He is sitting up in a chair at the bedside. He is maintaining good O2 saturations in the 90s on 3 L/min per nasal cannula. He is being nourished with Nepro at 43 mL/h. He is status post 5 units of packed red blood cells this admission. No further bleeding noted. White count 9.3. Hemoglobin 8.1. Platelets 292. Sodium 144. Potassium 4.8. Bicarb 29. BUN 50. Creatinine 1.9. Glucose 101. He remains on antibiotics in the form of Unasyn. Continued on bronchodilators. The patient is seen today April 28, 2024 in follow-up on the regular medical floor. He is sitting up in bed. Awake and alert in no acute distress. Asking about going home. He denies any shortness of breath, cough or congestion. He is maintaining good O2 saturations in the 90s on 2 L/min per nasal cannula. He is status post 5 units of packed red blood cells this admission. Current hemoglobin 8.1. Platelets 311. White count 9.7. Sodium 142. Potassium 4.7. Bicarb 28. BUN 45. Creatinine 2.0. Glucose 119. He remains on bronchodilators. Remains on Unasyn per ID service. The patient is seen today April 29, 2024 in follow-up on the regular medical floor. He is awake and alert in no acute distress. He is maintaining good O2 saturations in the 90s on 3 L/min per nasal cannula. He is being nourished with Nepro at 43 mL/h which is goal. He is continued on antibiotics in the form of Unasyn. Sputum is positive for Jenae only. Glucose 131. Recent hemoglobin 8.1 Progress note dated April 30, 2024. The patient was seen in room 353. For some reason he was moved down to the third floor, and apparently he pulled out his PEG tube. Currently, he is receiving IV Lopressor, for blood pressure support periodically. He is on 3 L of oxygen by nasal cannula. He is not receiving any IV fluids. The PEG tube will have to be reinserted, but cannot be placed on till Saturday. No new labs today other than a glucose of 77. Progress note dated May 01, 2024. The patient is again seen in room 353. He is sitting in bed. Currently, the patient is on 3 L of oxygen. The patient is getting saline at 75 cc an hour. The patient is also on Cardizem at 5 mg an hour. The patient apparently accidentally pulled out his PEG tube, and it cannot be replaced until Saturday at the earliest. Current labs include a white count of 7.4, hemoglobin 8.5, hematocrit 28.6, and platelet count 319,000. Sodium 142, potassium 5.1, chlorides 110, CO2 28, BUN 38, and creatinine 2.01. Glucose is 107. Calcium 7.5. Ionized calcium 4.3. Albumin is 2.7. Objective - Vital Signs Vital signs: Vital Signs Temp 98.1 F 05/01/24 08:55 Pulse 107 H 05/01/24 08:55 Resp 18 05/01/24 08:55 BP 115/73 05/01/24 08:55 Pulse Ox 91 L 05/01/24 08:55 FiO2 Intake & Output 04/30/24 05/01/24 05/01/24 18:59 06:59 18:59 Intake Total 75.333 Output Total 250 0 0 Balance -250 75.333 0 Weight 104.6 kg 104.3 kg Intake: Intake, IV Titration 75.333 Amount Diltiazem 125 mg In 75.333 Sodium Chloride 0.9% 100 ml @ 5 MG/HR 5 mls/hr IV .Q24H [facility] Rx#:[id number] Output: Urine 250 Stool 0 0 0 Other: Voiding Method Toilet Toilet Toilet - Exam No acute distress, oriented 3. 4 L saturation is 96%. 3 L saturations at 95 %. HEENT examination is grossly unremarkable. Mucous membranes are moist. No oral lesions. Neck supple. Full range of motion. No adenopathy thyromegaly or neck vein distention. Cardiovascular examination reveals regular rhythm rate. S1-S2 normal. No S3 or S4. No discernible murmur noted. Heart sounds are distant. Heart rate 89 bpm. Lungs reveal mostly clear breath sounds. Scattered rhonchi. No wheezes or crac kles. 3 L saturation is 96 %. Abdomen soft bowel sounds are heard. No masses or tenderness. Extremities are intact. No cyanosis clubbing or edema. Skin is without rash or lesion. Neurologic examination is brief but nonfocal. - Labs CBC & Chem 7: 05/01/24 05:27 05/01/24 05:27 Labs: Abnormal Lab Results - Last 24 Hours (Table) 04/30/24 04/30/24 05/01/24 Range/Units 16:04 20:16 05:27 RBC 2.64 L (4.30-5.90) m/uL Hgb 8.5 L (13.0-17.5) gm/dL Hct 28.6 L (39.0-53.0) % MCV 108.2 H D (80.0-100.0) fL MCHC 29.7 L (31.0-37.0) g/dL RDW 25.9 H (11.5-15.5) % Lymphocytes # 0.8 L (1.0-4.8) k/uL Macrocytosis Marked A Chloride (98-107) mmol/L BUN (9-20) mg/dL Creatinine (0.66-1.25) mg/dL Glucose (74-99) mg/dL POC Glucose (mg/dL) 64 L 68 L (70-110) mg/dL Calcium (8.4-10.2) mg/dL Ionized Calcium Mary (4.5-5.3) mg/dL AST (17-59) U/L ALT (4-49) U/L Total Protein (6.3-8.2) g/dL Albumin (3.5-5.0) g/dL 05/01/24 05/01/24 05/01/24 Range/Units 05:27 05:27 08:14 RBC (4.30-5.90) m/uL Hgb (13.0-17.5) gm/dL Hct (39.0-53.0) % MCV (80.0-100.0) fL MCHC (31.0-37.0) g/dL RDW (11.5-15.5) % Lymphocytes # (1.0-4.8) k/uL Macrocytosis Chloride 110 H (98-107) mmol/L BUN 38 H (9-20) mg/dL Creatinine 2.01 H (0.66-1.25) mg/dL Glucose 61 L (74-99) mg/dL POC Glucose (mg/dL) 68 L (70-110) mg/dL Calcium 7.5 L (8.4-10.2) mg/dL Ionized Calcium Mary 4.3 L (4.5-5.3) mg/dL AST 67 H (17-59) U/L ALT 91 H (4-49) U/L Total Protein 5.3 L (6.3-8.2) g/dL Albumin 2.7 L (3.5-5.0) g/dL Assessment and Plan Assessment: Acute hypoxic respiratory failure secondary to an acute exacerbation of systolic congestive heart failure. 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 Acute on chronic stage IV kidney disease. Anemia suspect secondary to above, S/P 5 units of blood. Hypotension secondary to anemia, received 2-1/2 L of fluid resuscitation, midodrine added. Hyperkalemia resolved. Hypernatremia, resolved. History of peripheral vessel occlusive disease and previous stenting of right SFA and right popliteal artery. Severe pulmonary hypertension. Paroxysmal atrial fibrillation, anticoagulated with Eliquis. 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 Type 2 diabetes mellitus. Chronic and ongoing tobacco dependence. Plan: Plan dated April 25, 2024. The patient is seen in room 475. The patient is currently on 4 L. Saturations are 96%. The patient will likely get his fifth unit of blood today. His hemoglobin is below 7. Labs, x-rays, medications are reviewed. The patient's overall prognosis remains guarded. We will continue to follow the patient, make recommendations along the way. His blood pressure has been much more stable, with fluid resuscitation, and blood. Plan dated April 26, 2024. Clinically, the patient looks about as good as he is look since I seen him for the last 6 to 7 days. His vital signs are stable. He continues on oxygen at 4 L. Saturations are 96%. He continues on tube feedings with Nepro. Labs, x- rays, medications are reviewed. He has received a total of 5 units of packed red blood cells. The patient's hemoglobin this morning was 8. We will continue to follow make recommendations along the way. Plan dated April 30, 2024. The patient is seen today in room 353. The patient was transferred down from the fourth floor. I am not sure why that was. The patient did pull out his PEG tube. That will have to be reinserted. In addition, he is getting Lopressor IV, for blood pressure support. Will start him on oral Lopressor, once the PEG tube is back in place. Labs, x-rays, and all medications are reviewed. Prognosis is guarded. We will continue to follow and make recommendations. Plan dated May 01, 2024. The patient apparently will have his PEG tube replaced on Saturday. Labs, x-rays, medications are reviewed. We will continue to follow. Respiratory status is stable. No additional recommendations are made. The patient has not been in the hospital for 19 days. Time with Patient: Less than 30
[2024-05-01 12:01] LABS: Glucose,Whole Blood 78 mg/dL (70-110)
[2024-05-01] MEDS: CALCIUM GLUCONATE IN NACL 2 GM in SALINE 1 100ML.BAG IVPB ONE (12:48)
--- NOTE | 2024-05-01 15:28 | P.PN ---
Subjective Progress Note Date: 05/01/24 Principal diagnosis: Reason for follow-up is right foot wound and cellulitis Patient is a 63-year-old male with a past medical history significant for diabetes mellitus hypertension hyperlipidemia pneumonia CVA TIA COPD patient did have a right big toe amputation done by and was recently admitted to the hospital concerning for pain to the right foot and cold feeling patient has been diagnosed with PAD and is s/p peripheral intervention by interventional cardiology with angioplasty of SFA and right popliteal arteries however unsuccessful angioplasty of the right anterior tibial artery patient presented to hospital with weakness hypoxemia. Patient apparently has pulled out his PEG tube and also developed A-fib with RVR for the patient was transferred to telemetry floor on 04/30/2024 On today's evaluation that is 05/01/2024, Patient is afebrile this morning patient denies having any chest pain shortness of breath or any worsening cough, the patient is breathing comfortably and currently on 3 L nasal cannula oxygen, patient denies any abdominal pain no diarrhea no nausea no vomiting. Patient white count is 7.4, creatinine is 2.01 Objective - Vital Signs Vital signs: Vital Signs Temp 98.1 F 05/01/24 08:55 Pulse 127 H 05/01/24 11:30 Resp 16 05/01/24 11:30 BP 119/72 05/01/24 11:30 Pulse Ox 97 05/01/24 11:30 FiO2 Intake & Output 04/30/24 05/01/24 05/01/24 18:59 06:59 18:59 Intake Total 75.333 Output Total 250 0 150 Balance -250 75.333 -150 Weight 104.6 kg 104.3 kg 104.3 kg Intake: Intake, IV Titration 75.333 Amount Diltiazem 125 mg In 75.333 Sodium Chloride 0.9% 100 ml @ 5 MG/HR 5 mls/hr IV .Q24H [facility] Rx#:[id number] Output: Urine 250 150 Stool 0 0 0 Other: Voiding Method Toilet Toilet Toilet - Exam GENERAL DESCRIPTION: Middle-age male lying in bed in no distress RESPIRATORY SYSTEM: Unlabored breathing , decreased breath sounds at bases HEART: S1 S2 regular rate and rhythm , ABDOMEN: Soft , no tenderness EXTREMITIES: Right foot wound wound is currently dressed - Labs CBC & Chem 7: 05/01/24 05:27 05/01/24 05:27 Labs: Abnormal Lab Results - Last 24 Hours (Table) 04/30/24 04/30/24 05/01/24 Range/Units 16:04 20:16 05:27 RBC 2.64 L (4.30-5.90) m/uL Hgb 8.5 L (13.0-17.5) gm/dL Hct 28.6 L (39.0-53.0) % MCV 108.2 H D (80.0-100.0) fL MCHC 29.7 L (31.0-37.0) g/dL RDW 25.9 H (11.5-15.5) % Lymphocytes # 0.8 L (1.0-4.8) k/uL Macrocytosis Marked A Chloride (98-107) mmol/L BUN (9-20) mg/dL Creatinine (0.66-1.25) mg/dL Glucose (74-99) mg/dL POC Glucose (mg/dL) 64 L 68 L (70-110) mg/dL Calcium (8.4-10.2) mg/dL Ionized Calcium Mary (4.5-5.3) mg/dL AST (17-59) U/L ALT (4-49) U/L Total Protein (6.3-8.2) g/dL Albumin (3.5-5.0) g/dL 05/01/24 05/01/24 05/01/24 Range/Units 05:27 05:27 08:14 RBC (4.30-5.90) m/uL Hgb (13.0-17.5) gm/dL Hct (39.0-53.0) % MCV (80.0-100.0) fL MCHC (31.0-37.0) g/dL RDW (11.5-15.5) % Lymphocytes # (1.0-4.8) k/uL Macrocytosis Chloride 110 H (98-107) mmol/L BUN 38 H (9-20) mg/dL Creatinine 2.01 H (0.66-1.25) mg/dL Glucose 61 L (74-99) mg/dL POC Glucose (mg/dL) 68 L (70-110) mg/dL Calcium 7.5 L (8.4-10.2) mg/dL Ionized Calcium Mary 4.3 L (4.5-5.3) mg/dL AST 67 H (17-59) U/L ALT 91 H (4-49) U/L Total Protein 5.3 L (6.3-8.2) g/dL Albumin 2.7 L (3.5-5.0) g/dL Assessment and Plan (1) Cellulitis of right foot Current Visit: No Status: Acute Code(s): L03.115 - CELLULITIS OF RIGHT LOWER LIMB SNOMED Code(s): 85707381995552965 (2) Diabetic foot ulcer Current Visit: No Status: Acute Code(s): E11.621 - TYPE 2 DIABETES MELLITUS WITH FOOT ULCER; L97.509 - NON-PRESSURE CHRONIC ULCER OTH PRT UNSP FOOT W UNSP SEVERITY SNOMED Code(s): 540558594 Plan: 1patient presenting to the hospital mostly with generalized weakness low O2 sats possibly underlying cardiac etiology for the patient being managed by cardiology, patient also have a 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 2patient is afebrile white count has been normal, patient to continue with Unasyn along with a local wound care and monitor clinical course closely Dictation was produced using [employer] dictation software. please excuse any gr ammatical, word or spelling errors. Time with Patient: Less than 30
--- NOTE | 2024-05-01 16:06 | XR ---
EXAMINATION TYPE: XR chest 1V DATE OF EXAM: 05/01/2024 COMPARISON: 07/02/2021 HISTORY: PICC line placement TECHNIQUE: Single frontal view of the chest is obtained. FINDINGS: There is a right arm PICC line terminating in the SVC/RA junction. There is moderate cardiomegaly. There is marked pulmonary vascular congestion and interstitial edema. There is a small to moderate right pleural effusion. The osseous structures are intact. IMPRESSION: 1. PICC line tip in the SVC/RA junction. 2. Moderate to marked cardiomegaly disease most consistent with CHF.
[2024-05-01 17:18] LABS: Glucose,Whole Blood 87 mg/dL (70-110)
[2024-05-01] MEDS: FAT EMULSION 20% 250 ML in EMPTY BAG 1 BAG IV SCH (17:52)
[2024-05-01] MEDS: [UNRECOGNIZED DRUG - REMARK] IV SCH (17:53)
[2024-05-01 20:02] LABS: Glucose,Whole Blood 112 mg/dL (70-110)
[2024-05-02 06:04] LABS: Glucose,Whole Blood 149 mg/dL (70-110)
[2024-05-02 06:23] LABS: ALT 71 U/L (4-49); AST 47 U/L (17-59); African American GFR (CKD) 42 (>60 ml/min/1.73 sqM); Albumin 2.6 g/dL (3.5-5.0); Alkaline Phosphatase 78 U/L (38-126); Anion Gap 5 mmol/L; Blood Urea Nitrogen 35 mg/dL (9-20); Calcium 7.6 mg/dL (8.4-10.2); Carbon Dioxide 26 mmol/L (22-30); Chloride 110 mmol/L (98-107); Glucose 129 mg/dL (74-99); Magnesium 2.1 mg/dL (1.6-2.3); Non-African American GFR(CKD) 36 (>60 ml/min/1.73 sqM); Phosphorus 3.9 mg/dL (2.5-4.5); Potassium 4.9 mmol/L (3.5-5.1); Sodium 141 mmol/L (137-145); Total Bilirubin 0.8 mg/dL (0.2-1.3); Total Protein 5.1 g/dL (6.3-8.2)
--- NOTE | 2024-05-02 08:37 | P.PN ---
Subjective Progress Note Date: 05/01/24 CHIEF COMPLAINT: Gastrostomy tube status HISTORY OF PRESENT ILLNESS: The patient is a 63-year-old male who pulled out his feeding tube. Patient has dysphagia due to prior stroke. He is sitting up in bed. Per discussion with his nurse, he has a PICC line. TPN is pending. Patient recently discontinued off Plavix. ROS: No reports of nausea and vomiting. No fevers or chills. No new chest pain. Has peripheral vascular occlusive disease. PHYSICAL EXAM: VITAL SIGNS: Reviewed CONSTITUTIONAL: Well developed and in no acute distress. EYES: Conjuctivae without sclera icterus. Extraocular movements grossly intact. HEAD, EARS, NOSE, THROAT: Moist buccal mucosa. Head is atraumatic, normocephalic . Hears conversational speech. No nasal drainage. RESPIRATORY: Non-labored respirations and equal bilateral excursions. CARDIOVASCULAR: Palpable 2+ radial pulses. ABDOMEN: Obese. PEG tube site without cellulitis. No peritonitis. MUSCULOSKELETAL: Amputation of right toes due to peripheral vascular occlusive disease SKIN: Good skin turgor. Well perfused. NEUROLOGIC: Cranial nerves II through XII grossly intact. No focal or lateralizing signs. PSYCH: Appropriate affect. Alert and oriented to person. CLINICAL LABS: Reviewed. WBC normal. Hemoglobin low 8.5, anemia ASSESSMENT: 1. Traumatic removal of PEG tube 2. Gastrostomy tube status 3. Dysphagia due to stroke 4. Obesity, BMI 33.23 5. Peripheral vascular occlusive disease PLAN: 1. Will need at least 5 to 7 days off Plavix prior to placement of gastrostomy tube. 2. TPN for nutrition. 3. Anticipated placement of feeding tube, May 04 Objective - Vital Signs Vital signs: Vital Signs Temp 98.0 F 05/02/24 08:23 Pulse 108 H 05/02/24 08:23 Resp 18 05/02/24 08:23 BP 116/62 05/02/24 08:23 Pulse Ox 96 05/02/24 08:23 FiO2 Intake & Output 05/01/24 05/02/24 05/02/24 18:59 06:59 18:59 Intake Total 116.333 10 Output Total 150 0 Balance -150 116.333 10 Weight 104.3 kg 105.1 kg Intake: IV 10 Invasive Line 5 10 Intake, IV Titration 116.333 Amount Diltiazem 125 mg In 116.333 Sodium Chloride 0.9% 100 ml @ 5 MG/HR 5 mls/hr IV .Q24H [facility] Rx#:[id number] Output: Urine 150 Stool 0 0 Other: Voiding Method Toilet Toilet - Labs CBC & Chem 7: 05/01/24 05:27 05/02/24 05:36 Labs: Abnormal Lab Results - Last 24 Hours (Table) 05/01/24 05/02/24 05/02/24 Range/Units 19:58 05:36 06:03 Chloride 110 H (98-107) mmol/L BUN 35 H (9-20) mg/dL Creatinine 1.92 H (0.66-1.25) mg/dL Glucose 129 H (74-99) mg/dL POC Glucose (mg/dL) 112 H 149 H (70-110) mg/dL Calcium 7.6 L (8.4-10.2) mg/dL ALT 71 H (4-49) U/L Total Protein 5.1 L (6.3-8.2) g/dL Albumin 2.6 L (3.5-5.0) g/dL
--- NOTE | 2024-05-02 09:21 | P.PN ---
Subjective Progress Note Date: 05/02/24 This is a 63-year-old gentleman with extensive past medical history consistent of peripheral arterial disease as well as atrial fibrillation likely to be permanent as well as multiple comorbid conditions including recent diagnosis of cardiomyopathy and hypertension and dyslipidemia and diabetes and anemia was admitted to the hospital with shortness of breath. The patient recently had a stroke and apparently he cannot swallow. He has not been taking his oral medication and for that reason he went into A-fib with RVR and he was started on Cardizem IV. Eliquis was on hold because of anemia and also possible having PEG tube this coming Thursday May 02, 2024 The patient was seen and evaluated this morning with he is breathing has improved. His hypoxemia has improved as well. No symptoms of chest pain or chest discomfort. He continues to be in atrial fibrillation with controlled heart rate on the current dose of Cardizem IV. He is not on anticoagulation for the above reason. His mentation has improved significantly as well. He seems to be overall euvolemic on examination as well. Examination is remarkable for irregular rhythm with controlled heart rate and clear breathing sounds bila terally and mild bilateral lower extremities edema Assessment Change in mental status which has improved Hypoxemia which has improved Shortness of breath which has improved Atrial fibrillation with controlled heart rate on the current dose of Cardizem IV History of permanent atrial fibrillation Multiple comorbid conditions including anemia Plan Continue the current dose of Cardizem IV The patient to have a PEG tube this coming Saturday Consider maximize medical treatment for cardiomyopathy once the patient is not n.p.o. anymore Follow-up with the patient Objective - Vital Signs Vital signs: Vital Signs Temp 98.0 F 05/02/24 08:23 Pulse 108 H 05/02/24 08:23 Resp 18 05/02/24 08:23 BP 116/62 05/02/24 08:23 Pulse Ox 96 05/02/24 08:23 FiO2 Intake & Output 05/01/24 05/02/24 05/02/24 18:59 06:59 18:59 Intake Total 116.333 10 Output Total 150 0 Balance -150 116.333 10 Weight 104.3 kg 105.1 kg Intake: IV 10 Invasive Line 5 10 Intake, IV Titration 116.333 Amount Diltiazem 125 mg In 116.333 Sodium Chloride 0.9% 100 ml @ 5 MG/HR 5 mls/hr IV .Q24H [facility] Rx#:[id number] Output: Urine 150 Stool 0 0 Other: Voiding Method Toilet Toilet - Labs CBC & Chem 7: 05/01/24 05:27 05/02/24 05:36 Labs: Abnormal Lab Results - Last 24 Hours (Table) 05/01/24 05/02/24 05/02/24 Range/Units 19:58 05:36 06:03 Chloride 110 H (98-107) mmol/L BUN 35 H (9-20) mg/dL Creatinine 1.92 H (0.66-1.25) mg/dL Glucose 129 H (74-99) mg/dL POC Glucose (mg/dL) 112 H 149 H (70-110) mg/dL Calcium 7.6 L (8.4-10.2) mg/dL ALT 71 H (4-49) U/L Total Protein 5.1 L (6.3-8.2) g/dL Albumin 2.6 L (3.5-5.0) g/dL
--- NOTE | 2024-05-02 10:23 | P.PN ---
Subjective Progress Note Date: 05/02/24 Principal diagnosis: Anemia. This is a 63-year-old white male with history of multiple medical problems including coronary artery disease, chronic atrial fibrillation, peripheral vessel occlusive disease, severe pulmonary hypertension, chronic obstructive pulmonary disease, patient normally sees Dr. Dillard on outpatient basis. Patient was never seen by a bank analyst. Admitted this time with few days history of increased shortness of breath, and according to the his O2 saturation was down in the 60s. Patient was brought into the ER, chest x-ray showed evidence of pulmonary edema, VQ scan negative for pulmonary embolism, patient was admitted and this consult was initiated. Patient is not a great historian, most of the information was obtained from his , apparently the patient had history of CVA in the past, and he had a previous PEG tube placement Labs on admission showed relatively normal CBC, no leukocytosis, D-dimer was a bit elevated at 2.10 and renal profile was abnormal with BUN of 43 and creatinine 2.01 however BNP level was 12,300 and troponin was 0.043. Since admission, the patient received 1 dose of Lasix, and he is at least 1.5 L negative fluid balance The patient is seen today April 14, 2024 in follow-up on the selective care unit. He is currently sitting up at the bedside. Awake and alert in no acute distress. Breathing a bit easier today compared to yesterday. Currently maintaining good O2 saturations in the upper 90s on 3 L/min per nasal cannula. He is afebrile. Hemodynamically stable. Echocardiogram reveals impaired left ventricular systolic function with an ejection fraction of 35 to 40%. Severe pulmonary hypertension. Moderate to severely dilated left atrium. Right first toe culture is pending. Currently on Unasyn. Glucose 125. Being nourished with Glucerna at 51 MLS per hour via his PEG tube. Anticoagulated with Eliquis. Remains on diuretics. Making adequate urine. The patient is seen today April 15, 2024 in follow-up on the selective care unit. He is awake and alert in no acute distress. Maintaining O2 saturations in the 90s on 3 L/min per nasal cannula. Hemodynamically stable. White count 8.4. Hemoglobin 11.2. Platelets 321. Sodium 143. Potassium 4.9. Bicarb 29. BUN 45. Creatinine 1.99. Glucose 126. He is continued on Unasyn. Anticoagulated with Eliquis. Remains on bronchodilators. Remains on oral diuretics. Continued on Glucerna via his PEG tube. Barium swallow is pending so the patient can continue on tube feedings in the outpatient setting Patient was evaluated today on 04/16/2024, patient is doing well, comfortable, not in any distress, on 3 L nasal cannula with O2 sats of 96%. WBC is 8.5 hemoglobin 10.5 electrolytes are relatively normal with potassium of 5.2 BUN is 48 creatinine 1.94, steadily improving since admission patient had a successful swallow evaluation study that came back unremarkable. The patient was seen today April 17, 2024 in follow-up on the selective care unit. He is currently resting comfortably in bed. Awake and alert in no acute distress. Maintaining O2 saturations in the 90s on 2 L/min per nasal cannula. Right foot culture results revealing no growth. White count 9.6. Hemoglobin 10.9. Platelets 305. Sodium 145. Potassium 5.4. Bicarb 32. BUN 56. Creatinine 1.99. Glucose 133. He remains on bronchodilators. Anticoagulated with Eliquis. Antibiotics in the form of Unasyn. Remains on Glucerna tube feedings. The patient is seen today April 18, 2024 in follow-up on the regular medical floor. He is currently sitting up at the bedside. Awake and alert in no acute distress. Maintaining O2 saturations in the 90s on 2 L/min per nasal cannula. He has been afebrile. Hemodynamically stable. He remains on Glucerna at 51 mL/h which is goal. He remains on antibiotics in the form of Unasyn. His right foot dressing is dry and intact. Glucose 140. He remains on bronchodilators. Oral diuretics. Anticoagulated with Eliquis. The patient is seen today April 19, 2024 in follow-up on the regular medical floor. He is currently sitting up in bed. Awake and alert in no acute distress. He is maintaining good O2 saturations in the 90s on 3 L/min per nasal cannula. He remains on antibiotics in the form of Unasyn. He is being nourished with Glucerna at 51 mL/h which is his goal. He is continued on bronchodilators. Anticoagulated with Eliquis. Normal saline at 100 MLS per hour. White count 10.8. Hemoglobin 9.2. Platelets 307. Sodium 147. Potassium 6.3. BUN 84. Creatinine 2.3. Glucose 105. The patient is seen today April 20, 2024 in follow-up on the regular medical floor. He is currently sitting up at the bedside. Awake and alert in no acute distress. Maintaining good O2 saturations in the 90s on 4 L/min per nasal cannula. He remains on Glucerna at 51 mL/h which is goal. 0.45% normal saline at 75 MLS per hour. Potassium 5.6. Bicarb 30. BUN 90. Creatinine 2.4. Glucose 120. He received Lokelma yesterday for his hyperkalemia. Right foot cultures revealed no growth. Sputum culture revealed Jenae. He continues on Unasyn per ID service. He remains on bronchodilators. Anticoagulated with Eliquis. Remains on oral diuretics. The patient is seen today April 21, 2024 in follow-up on the regular medical floor. He is awake and alert in no acute distress. Sitting up at the bedside. Denies any worsening shortness of breath, cough or congestion. Continues to maintain good O2 saturations in the upper 90s on 4 L/min per nasal cannula. He is afebrile. Hemodynamically stable. White count 11.0. Hemoglobin 6.8. Platelets 324. Sodium 143. Potassium 5.9. Bicarb 29. BUN 98. Creatinine 2.4. Glucose 127. Nephrology is following. He remains on bronchodilators and Unasyn. The patient is seen today April 22, 2024 in follow-up on the regular medical floor. He is currently sitting up at the bedside. Awake and alert in no acute distress. He is receiving 2 units of packed red blood cells for hemoglobin of 6.4 today. White count 10.7. Platelets 308. Sodium 141. Potassium 5.8. Bicarb 28. BUN 107. Creatinine 2.7. Glucose 150. He remains on Unasyn. Continued on bronchodilators. Remains on Lokelma for his hyperkalemia. Receiving folate acid. The patient is seen today April 23, 2024 in follow-up on the regular medical floor. He is awake and alert in no acute distress. Maintaining O2 saturations in the 90s on 2 L/min per nasal cannula. Receiving normal saline at 20 MLS per hour. Continued on Nepro PEG tube feedings at 43 mL/h which is goal. He is status post 2 units of packed red blood cells. Hemoglobin 6.0 today. To receive 1 unit of packed red blood cells today unit. GI service is following. White count 13.7. Platelets 300. Sodium 141. Potassium 5.0. Bicarb 30. BUN 109. Creatinine 2.5. Glucose 146. He remains on Unasyn. Remains on Lokelma. The patient is seen today 04/24/2020 for follow-up on the regular medical floor. He is currently resting in bed. He has been having issues with anemia and his hemoglobin was 6.3 again today. He is receiving his fourth unit of packed red blood cells. He has received 2-1/2 L of fluid resuscitation. He is awaiting EGD/colonoscopy today. He remains on Unasyn. Continued on bronchodilators. Remains on Lokelma. white count 13.9. Platelets 323. Sodium 145. Potassium 5.3. Bicarb 27. BUN 89. Creatinine 2.3. Glucose 129. Progress note dated April 25, 2024. 63-year-old male seen on the general medical floor. He is in room 475. The patient is currently resting in bed. He denies any specific complaints, although he appears to be a bit weak. He had blood work today showing a white count of 12.5, hemoglobin 6.7, hematocrit 21.4, and a platelet count of 290,000. Sodium 142, potassium 4.8, chlorides 106, CO2 26, BUN 79, creatinine 2.3. Glucose was 142. AST 77 with an ALT of 69. Sputum samples are essentially negative although there is some Jenae albicans on the most recent sputum. No recent chest x-ray. Progress note dated April 26, 2024. 63-year-old male seen today in room 475. The patient continues on oxygen by nasal cannula at 4 L, saline at 20 cc an hour, and Nepro tube feedings at 43 cc an hour. The patient's hemoglobin this morning was 8. He has received a total of 5 units of packed red blood cells, while here in the hospital. Clinically, he looks better today. Much more awake and alert. Has no complaints. Current white count 10.5, hemoglobin 8, hematocrit 24.6, platelet count 297,000. Sodium 140, potassium 4.2, chlorides 106, CO2 28, BUN 66, and creatinine 2.03. Glucose is 120. Calcium is 8.1. Cultures are negative. No recent chest x-ray. The patient is seen today April 27, 2024 in follow-up on the regular medical floor. He is currently awake and alert in no acute distress. He is sitting up in a chair at the bedside. He is maintaining good O2 saturations in the 90s on 3 L/min per nasal cannula. He is being nourished with Nepro at 43 mL/h. He is status post 5 units of packed red blood cells this admission. No further bleeding noted. White count 9.3. Hemoglobin 8.1. Platelets 292. Sodium 144. Potassium 4.8. Bicarb 29. BUN 50. Creatinine 1.9. Glucose 101. He remains on antibiotics in the form of Unasyn. Continued on bronchodilators. The patient is seen today April 28, 2024 in follow-up on the regular medical floor. He is sitting up in bed. Awake and alert in no acute distress. Asking about going home. He denies any shortness of breath, cough or congestion. He is maintaining good O2 saturations in the 90s on 2 L/min per nasal cannula. He is status post 5 units of packed red blood cells this admission. Current hemoglobin 8.1. Platelets 311. White count 9.7. Sodium 142. Potassium 4.7. Bicarb 28. BUN 45. Creatinine 2.0. Glucose 119. He remains on bronchodilators. Remains on Unasyn per ID service. The patient is seen today April 29, 2024 in follow-up on the regular medical floor. He is awake and alert in no acute distress. He is maintaining good O2 saturations in the 90s on 3 L/min per nasal cannula. He is being nourished with Nepro at 43 mL/h which is goal. He is continued on antibiotics in the form of Unasyn. Sputum is positive for Jenae only. Glucose 131. Recent hemoglobin 8.1 Progress note dated April 30, 2024. The patient was seen in room 353. For some reason he was moved down to the third floor, and apparently he pulled out his PEG tube. Currently, he is receiving IV Lopressor, for blood pressure support periodically. He is on 3 L of oxygen by nasal cannula. He is not receiving any IV fluids. The PEG tube will have to be reinserted, but cannot be placed on till Saturday. No new labs today other than a glucose of 77. Progress note dated May 01, 2024. The patient is again seen in room 353. He is sitting in bed. Currently, the patient is on 3 L of oxygen. The patient is getting saline at 75 cc an hour. The patient is also on Cardizem at 5 mg an hour. The patient apparently accidentally pulled out his PEG tube, and it cannot be replaced until Saturday at the earliest. Current labs include a white count of 7.4, hemoglobin 8.5, hematocrit 28.6, and platelet count 319,000. Sodium 142, potassium 5.1, chlorides 110, CO2 28, BUN 38, and creatinine 2.01. Glucose is 107. Calcium 7.5. Ionized calcium 4.3. Albumin is 2.7. Progress note dated May 02, 2024. 63-year-old male who is now been in the hospital for about 3 weeks. Currently, he is on 2 L of oxygen by nasal cannula, getting saline at 75 cc an hour, Cardizem at 5 mg an hour, and TPN at 30 MLS per hour. He is sitting at the side of his bed. No respiratory distress or difficulty. The plan is to replace his PEG tube on Saturday. He apparently accidentally pulled it out. Current labs include sodium 141, potassium 4.9, chlorides 110, CO2 26, anion gap 5, BUN 35, creatinine 1.92. Glucose is 149. Albumin is 2.6. Calcium is 7.6. Chest x-ray from yesterday is consistent with cardiomegaly. Objective - Vital Signs Vital signs: Vital Signs Temp 98.0 F 05/02/24 08:23 Pulse 108 H 05/02/24 08:23 Resp 18 05/02/24 08:23 BP 116/62 05/02/24 08:23 Pulse Ox 97 05/02/24 09:42 FiO2 Intake & Output 05/01/24 05/02/24 05/02/24 18:59 06:59 18:59 Intake Total 116.333 10 Output Total 150 0 Balance -150 116.333 10 Weight 104.3 kg 105.1 kg Intake: IV 10 Invasive Line 5 10 Intake, IV Titration 116.333 Amount Diltiazem 125 mg In 116.333 Sodium Chloride 0.9% 100 ml @ 5 MG/HR 5 mls/hr IV .Q24H [facility] Rx#:[id number] Output: Urine 150 Stool 0 0 Other: Voiding Method Toilet Toilet - Exam No acute distress, oriented 3. 2 L saturation is 97%. HEENT examination is grossly unremarkable. Mucous membranes are moist. No oral lesions. Neck supple. Full range of motion. No adenopathy thyromegaly or neck vein distention. Cardiovascular examination reveals regular rhythm rate. S1-S2 normal. No S3 or S4. No discernible murmur noted. Heart sounds are distant. Heart rate 100 bpm. Lungs reveal mostly clear breath sounds. Scattered rhonchi. No wheezes or crackles. 2 L saturation is 97%. Breath sounds are equal bilaterally. Abdomen soft bowel sounds are heard. No masses or tenderness. Extremities are intact. No cyanosis clubbing or edema. Skin is without rash or lesion. Neurologic examination is brief but nonfocal. - Labs CBC & Chem 7: 05/01/24 05:27 05/02/24 05:36 Labs: Abnormal Lab Results - Last 24 Hours (Table) 05/01/24 05/02/24 05/02/24 Range/Units 19:58 05:36 06:03 Chloride 110 H (98-107) mmol/L BUN 35 H (9-20) mg/dL Creatinine 1.92 H (0.66-1.25) mg/dL Glucose 129 H (74-99) mg/dL POC Glucose (mg/dL) 112 H 149 H (70-110) mg/dL Calcium 7.6 L (8.4-10.2) mg/dL ALT 71 H (4-49) U/L Total Protein 5.1 L (6.3-8.2) g/dL Albumin 2.6 L (3.5-5.0) g/dL Assessment and Plan Assessment: Acute hypoxic respiratory failure secondary to an acute exacerbation of systolic congestive heart failure. 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 Acute on chronic stage IV kidney disease. Anemia suspect secondary to above, S/P 5 units of blood. Hypotension secondary to anemia, received 2-1/2 L of fluid resuscitation, midodrine added. Hyperkalemia resolved. Hypernatremia, resolved. History of peripheral vessel occlusive disease and previous stenting of right SFA and right popliteal artery. Severe pulmonary hypertension. Paroxysmal atrial fibrillation, anticoagulated with Eliquis. 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 Type 2 diabetes mellitus. Chronic and ongoing tobacco dependence. Plan: Plan dated April 25, 2024. The patient is seen in room 475. The patient is currently on 4 L. Saturations are 96%. The patient will likely get his fifth unit of blood today. His hemoglobin is below 7. Labs, x-rays, medications are reviewed. The patient's overall prognosis remains guarded. We will continue to follow the patient, make recommendations along the way. His blood pressure has been much more stable, with fluid resuscitation, and blood. Plan dated April 26, 2024. Clinically, the patient looks about as good as he is look since I seen him for the last 6 to 7 days. His vital signs are stable. He continues on oxygen at 4 L. Saturations are 96%. He continues on tube feedings with Nepro. Labs, x- rays, medications are reviewed. He has received a total of 5 units of packed red blood cells. The patient's hemoglobin this morning was 8. We will continue to follow make recommendations along the way. Plan dated April 30, 2024. The patient is seen today in room 353. The patient was transferred down from the fourth floor. I am not sure why that was. The patient did pull out his PEG tube. That will have to be reinserted. In addition, he is getting Lopressor IV, for blood pressure support. Will start him on oral Lopressor, once the PEG tube is back in place. Labs, x-rays, and all medications are reviewed. Prognosis is guarded. We will continue to follow and make recommendations. Plan dated May 01, 2024. The patient apparently will have his PEG tube replaced on Saturday. Labs, x-rays, medications are reviewed. We will continue to follow. Respiratory status is stable. No additional recommendations are made. The patient has not been in the hospital for 19 days. Plan dated May 02, 2024. The patient was seen in room 353. The patient continues on O2 at 2 L, TPN at 30 cc/h, Cardizem drip at 5 mg an hour, and saline at 75 cc an hour. The plan is to reinsert the patient's PEG tube on Saturday. The patient accidentally removed his PEG tube. Labs, x-rays, medications are reviewed. Hopeful discharge soon, as the patient has now been in the hospital for nearly 3 weeks. The patient's overall prognosis remains guarded. Time with Patient: Less than 30
[2024-05-02 11:32] LABS: Glucose,Whole Blood 158 mg/dL (70-110)
--- NOTE | 2024-05-02 12:16 | P.PN ---
Subjective Progress Note Date: 05/02/24 Everett Juárez, is a 63-year-old male who presented to [facility] emergency room with a chief complaint of worsening shortness of breath and generalized weakness, patient was recently admitted to [facility] with peripheral vascular disease right foot osteomyelitis and underwent stenting of the right SFA by Dr. Dillard, he has a previous history of right great toe amputation. He was evaluated in the emergency room vital examination on presentation revealed a temperature of 98.9 pulse 110 respiration 18 blood pressure 114/72 pulse ox 96% on room air Laboratory data reveals a white blood count of 8.7 hemoglobin 11.4 platelet count 283 sodium 139 potassium 4.9 chloride 110 CO2 23 BUN 41 creatinine 2.01 D- dimer was elevated at 2.10, troponin level was elevated at 0.043 Testing in the emergency room revealed chest x-ray done in the emergency room revealed cardiomegaly and mild pulmonary vascular congestion suggestive of congestive heart failure, VQ scan showed no evidence for pulmonary embolism, EKG revealed atrial fibrillation with moderate T wave abnormalities suggestive of lateral ischemia. Patient was admitted to medical floor for further evaluation and treatment Past medical history is significant for history of atrial fibrillation, history of peripheral arterial disease with previous history of right great toe amputation, history of COPD, history of diabetes mellitus type 2, history of hyperkalemia, history of chronic kidney disease. On review of systems patient is alert and oriented x 3 in no apparent distress, he is complaining of generalized weakness, complaining of shortness of breath, which is worse with activity, and complaining of right foot pain, otherwise he denies any complaints, there is no fever or chills no headache or dizziness no chest pain, no cough no nausea or vomiting no abdominal pain no diarrhea and no urinary symptoms On 04/14/2024 patient is alert and oriented 3.Patient remains on IV Unasyn and IV Lasix. 2-D echo completed showing an EF of 35-40%. Current vital signs temp 98.3, heart 81, respiratory rate 18, blood pressure 135/67 with a pulse ox of 100% on 3 L. Patient reports improvement with shortness of breath. Patient denies nausea vomiting or diarrhea. Patient denies any urinary burning or frequency On 04/15/2024 Patient is alert and oriented 3. Patient remains on IV Unasyn. Patient has been transitioned to by mouth Lasix.Current vital signs temp 97.1, heart rate 98, respiratory rate 18, blood pressure 121/79 with pulse ox 96% on 3 L. Patient denies chest pain or shortness breath. Patient denies nausea vomiting or diarrhea. Patient denies any urinary burning or frequency. On 04/16/2024 he is alert and oriented x 3 in no apparent distress he reports improvement in his shortness of breath there is no fever or chills no headache or dizziness no chest pain no cough no nausea or vomiting no abdominal pain no diarrhea and no urinary symptoms. On 04/17/2024 patient is alert and oriented x 3. Current vital signs Temp 98.1, heart rate 100, respiratory rate 16, blood pressure 153/81 with a pulse ox of 97% on 2 L. Patient remains on IV Unasyn. Awaiting final antibiotic recommenda tions per ID. Patient denies chest pain or shortness of breath. Patient denies nausea vomiting or diarrhea. Patient denies any urinary burning or frequency. On 04/18/2024 patient was seen and examined on the medical floor he is alert and oriented x 3 in no apparent distress there is no fever or chills no headache or dizziness no chest pain no shortness of breath no cough no nausea or vomiting no abdominal pain no diarrhea no urinary symptoms, he is still maintained on oxygen supplements, patient need to be assessed for need for home oxygen, he is also maintained on tube feeding, returned case inspector is working on arrangement for tube feeding at home. Otherwise continue with current management will recheck in a.m.. On 04/19/2024 patient is alert and oriented x 3. Patient is maintained on 3 L n roberth cannula. Patient also maintained on IV Unasyn. Awaiting final IV recommendations from infectious disease. Current vital signs Temp 98.2, heart rate 82, blood pressure 116/70 with a pulse ox of 97% on 3 L patient denies chest pain or shortness of breath. Patient denies nausea vomiting or diarrhea. Patient denies any urinary burning or frequency On 04/20/2024 patient was seen and examined on the medical floor he is alert and oriented x 3 in no apparent distress, there is no fever or chills no headache or dizziness no chest pain no shortness of breath no cough no nausea or vomiting no abdominal pain no diarrhea no urinary symptoms, patient is still having difficulty with hyperkalemia, he is maintained on IV fluids and [facility] nephrology are following, will recheck labs in a.m. On 04/21/2024 patient is alert and oriented x 3. Potassium remains elevated at 5.9 awaiting further recommendations from nephrology standpoint. Patient denies chest pain or shortness of breath. Patient denies nausea vomiting or diarrhea. Patient denies any urinary burning or frequency On 04/22/2024 patient is alert and oriented x 3. Patient received 1 unit PRBCs for hemoglobin of 6.8 yesterday. GI services were consulted stool for occult blood ordered. Nephrology service is following for elevated potassium level. At this time patient denies chest pain or shortness of breath. Patient denies nausea vomiting or diarrhea. Patient denies any urinary burning frequency. On 04/23/2024 patient was seen and examined on the medical floor he is alert and oriented x 3 in no apparent distress, his hemoglobin today is again 6.01 unit of red blood cell transfusion was ordered, he was reevaluated by gastroenterology and plans are for EGD and colonoscopy tomorrow, otherwise he denies any complaints there is no fever or chills no headache or dizziness no chest pain no shortness of breath no cough no nausea or vomiting no abdominal pain no diarrhea no urinary symptoms On 04/24/2024 patient is alert and oriented 3. Plans for EGD and colonoscopy today with GI services.Patient had episodes of hypotension throughout night received IV bolus. Continue to transfuse patient for hemoglobin less than 7. Patient remains on IV Unasyn. This time patient denies chest pain or shortness breath. Patient denies nausea vomiting or diarrhea. Patient denies any urinary burning or frequency. On 04/25/2024 patient was seen and examined on the medical floor he is alert and oriented x 3 in no apparent distress there is no fever or chills no headache or dizziness no chest pain no shortness of breath no cough no nausea or vomiting no abdominal pain no diarrhea no urinary symptoms, hemoglobin is down again to 6.7 patient will be given 1 unit of red blood cell transfusion, EGD and colonoscopy results done yesterday were reviewed, at this time will consult Dr. Jackson regarding recurrent pneumonia requiring multiple red blood cell transfusion, continue with tube feeding at this time. On 04/26/2024 patient is alert and oriented x 3. Hemoglobin today 8.0. Awaiting oncology input. Patient denies chest pain or shortness of breath. Patient denies nausea vomiting or diarrhea. Patient denies any urinary burning or frequency. Current vital signs Temp 97.7, heart rate 91, respiratory rate 16, blood pressure 118/60 with pulse ox of 98% on 4 L On 04/27/2024 patient was seen and examined on the medical floor he is alert and oriented x 3 in no apparent distress he is complaining of generalized weakness otherwise he denies any specific complaints there is no fever or chills no headache or dizziness no chest pain no shortness of breath no cough no nausea or vomiting no abdominal pain no diarrhea no urinary symptoms. On 04/28/2024 patient was seen and examined on the medical floor he is alert and oriented x 3 in no apparent distress there is no fever or chills no headache or dizziness no chest pain no shortness of breath no cough no nausea or vomiting no abdominal pain no diarrhea and no urinary symptoms, hemoglobin is stabilizing around 8 will continue to monitor On 04/29/2024 patient is alert and oriented 3.heart rate elevated at 121 this AM. Patient being followed by cardiology services was given by mouth amiodarone awaiting further recommendations from cardiology services. Hemoglobin remained stable at 8.1. Patient denies chest pain or shortness of breath. Patient denies nausea vomiting or diarrhea. Patient denies any urinary burning or frequency On 04/30/2024 patient is alert resting comfortably in bed. Patient pulled out PEG tube yesterday. Patient unable to take pills by mouth. Surgical service is consulted for new PEG tube placement unable to do until Saturday due to patient being on Plavix Plavix currently on hold. Heart rate remains elevated Lopressor IV push has been ordered. Current vital signs temp 97.7, heart rate 127, blood pressure 118/72 with pulse ox 96% on 3 L. Patient denies chest pain or shortness of breath. Patient denies nausea vomiting or diarrhea. Patient denies any urinary burning or frequency on 05/01/2024 patient is resting comfortably in bed. Awaiting PEG tube placement on Saturday.current vital signs temp 98.1, heart rate 107, respiratory rate 18, blood pressure 115/73 with pulse ox 91% on 3 L. Patient denies chest pain or shortness of breath. Patient denies nausea vomiting or diarrhea On 05/02/2024 patient was seen and examined on the medical floor he is alert responsive in no apparent distress, there is no fever or chills no headache or dizziness no chest pain no shortness of breath no cough no nausea or vomiting no abdominal pain no diarrhea and no urinary symptoms, at this time we are awaiting replacement of his PEG tube, Plavix was held in that regard, PICC line was inserted and patient was started on TPN , continue current medications otherwise Objective - Vital Signs Vital signs: Vital Signs Temp 98.0 F 05/02/24 08:23 Pulse 108 H 05/02/24 08:23 Resp 18 05/02/24 08:23 BP 116/62 05/02/24 08:23 Pulse Ox 97 05/02/24 09:42 FiO2 Intake & Output 05/01/24 05/02/24 05/02/24 18:59 06:59 18:59 Intake Total 116.333 10 Output Total 150 0 250 Balance -150 116.333 -240 Weight 104.3 kg 105.1 kg Intake: IV 10 Invasive Line 5 10 Intake, IV Titration 116.333 Amount Diltiazem 125 mg In 116.333 Sodium Chloride 0.9% 100 ml @ 5 MG/HR 5 mls/hr IV .Q24H [facility] Rx#:[id number] Output: Urine 150 250 Stool 0 0 Other: Voiding Method Toilet Toilet Urinal - Exam In general patient is alert and oriented x 3 in no distress HEENT head normocephalic and atraumatic Neck is supple no JVD no goiter no lymphadenopathy no carotid bruit Chest examination reveals a scattered crackles in both lung [place] no wheezing Cardiac exam reveals irregular heart sounds S1 and S2 no gallops no murmurs Abdomen is soft nontender no organomegaly with normal bowel sounds Extremity exam reveals no edema no cyanosis or clubbing, the right great toe is amputated with a large ulcer at the base of the amputated right great toe with purulent discharge Neurological examination reveals no gross focal deficits - Labs CBC & Chem 7: 05/01/24 05:27 05/02/24 05:36 Labs: Abnormal Lab Results - Last 24 Hours (Table) 05/01/24 05/02/24 05/02/24 Range/Units 19:58 05:36 06:03 Chloride 110 H (98-107) mmol/L BUN 35 H (9-20) mg/dL Creatinine 1.92 H (0.66-1.25) mg/dL Glucose 129 H (74-99) mg/dL POC Glucose (mg/dL) 112 H 149 H (70-110) mg/dL Calcium 7.6 L (8.4-10.2) mg/dL ALT 71 H (4-49) U/L Total Protein 5.1 L (6.3-8.2) g/dL Albumin 2.6 L (3.5-5.0) g/dL Assessment and Plan Plan: Worsening shortness of breath, multifactorial, possibly related to acute congestive heart failure, and underlying COPD Atrial fibrillation, with rapid ventricular response on presentation, heart rate was 110 New onset cardiomyopathy. Anemia status post EGD and colonoscopy on 04/24/2024 Generalized weakness Large ulcer at the base of the right great toe with purulent discharge, patient was maintained on oral Augmentin as outpatient, infectious disease consultation requested Underlying history of peripheral arterial disease, with recent history of angioplasty and stent placement to the right lower extremity on 04/08/2024 Underlying history of diabetes mellitus Underlying history of chronic obstructive pulmonary disease Underlying history of chronic kidney disease Underlying history of hyperkalemia Underlying history of chronic continued tobacco abuse Patient pulled out PEG tube. Surgical surfaces consulted. Plans for PEG tube placement on 05/04/2024 At this time patient is admitted to telemetry floor Home medications reviewed and reordered Consultation for cardiology and pulmonary were requested in the emergency room For DVT prophylaxis, patient is maintained on scds (eliquis on hold due to anemia) Will add infectious disease consultation in regard to base of right great toe ulcer Will follow closely
--- NOTE | 2024-05-02 12:31 | P.PN ---
Subjective patient is seen for follow-up for acute kidney injury and chronic kidney disease. patient pulled out his PEG tube and surgery has been consult it for replacement of the PEG tube which is scheduled for 05/04/2024. Serum creatinine stable at about 2.0 mg/dL. no complaints today. Started on IV fluids, normal saline at 75 mL an hour. TPN at 30 mL an hour Objective - Vital Signs Vital signs: Vital Signs Temp 97.7 F 05/02/24 12:12 Pulse 128 H 05/02/24 12:12 Resp 18 05/02/24 12:12 BP 121/75 05/02/24 12:12 Pulse Ox 94 L 05/02/24 12:12 FiO2 Intake & Output 05/01/24 05/02/24 05/02/24 18:59 06:59 18:59 Intake Total 116.333 10 Output Total 150 0 250 Balance -150 116.333 -240 Weight 104.3 kg 105.1 kg Intake: IV 10 Invasive Line 5 10 Intake, IV Titration 116.333 Amount Diltiazem 125 mg In 116.333 Sodium Chloride 0.9% 100 ml @ 5 MG/HR 5 mls/hr IV .Q24H [facility] Rx#:[id number] Output: Urine 150 250 Stool 0 0 Other: Voiding Method Toilet Toilet Urinal - Exam patient is awake, comfortable, no acute distress. Examination of the heart S1 and S2 Examination lungs bilateral breath sounds are heard Abdomen is soft nontender Examination lower extremities shows no significant edema. EXTERMINATOR exam grossly intact - Labs CBC & Chem 7: 05/01/24 05:27 05/02/24 05:36 Labs: Abnormal Lab Results - Last 24 Hours (Table) 05/01/24 05/02/24 05/02/24 Range/Units 19:58 05:36 06:03 Chloride 110 H (98-107) mmol/L BUN 35 H (9-20) mg/dL Creatinine 1.92 H (0.66-1.25) mg/dL Glucose 129 H (74-99) mg/dL POC Glucose (mg/dL) 112 H 149 H (70-110) mg/dL Calcium 7.6 L (8.4-10.2) mg/dL ALT 71 H (4-49) U/L Total Protein 5.1 L (6.3-8.2) g/dL Albumin 2.6 L (3.5-5.0) g/dL 05/02/24 Range/Units 11:31 Chloride (98-107) mmol/L BUN (9-20) mg/dL Creatinine (0.66-1.25) mg/dL Glucose (74-99) mg/dL POC Glucose (mg/dL) 158 H (70-110) mg/dL Calcium (8.4-10.2) mg/dL ALT (4-49) U/L Total Protein (6.3-8.2) g/dL Albumin (3.5-5.0) g/dL Assessment and Plan Assessment: 1. Acute kidney injury secondary to ATN secondary to acute blood loss anemia. Creatinine peaked at 2.7 this admission and stable at 1.9 - 2.0 . Elevated BUN secondary to chronic kidney disease as well as GI bleed. No hydronephrosis noted on kidney ultrasound. UA fairly benign. 2. Chronic kidney disease stage IV baseline creatinine 1.8-2.0 secondary to solitary right kidney. History of left nephrectomy. 3. Chronic systolic CHF ejection fraction of 35 to 40% with severe pulmonary hypertension. 4. Diabetes mellitus. 5. Hypernatremia from lack of oral water intake. Improved. 6. Hyperkalemia secondary to acute kidney injury and GI bleed. Resolved. 7. Peripheral vascular disease. 8. Acute blood loss anemia with hemoglobin. No active bleeding. Status post blood transfusions and IV DDAVP. Also on Aranesp. GI following. Plan: DC normal saline. Can increase TPN to 75 mL an hour while waiting for PEG tube placement. Repeat labs in a.m.
--- NOTE | 2024-05-02 13:48 | P.PN ---
Subjective Progress Note Date: 05/02/24 Principal diagnosis: Reason for follow-up is right foot wound and cellulitis Patient is a 63-year-old male with a past medical history significant for diabetes mellitus hypertension hyperlipidemia pneumonia CVA TIA COPD patient did have a right big toe amputation done by and was recently admitted to the hospital concerning for pain to the right foot and cold feeling patient has been diagnosed with PAD and is s/p peripheral intervention by interventional cardiology with angioplasty of SFA and right popliteal arteries however unsuccessful angioplasty of the right anterior tibial artery patient presented to hospital with weakness hypoxemia. Patient apparently has pulled out his PEG tube and also developed A-fib with RVR for the patient was transferred to telemetry floor on 04/30/2024 On today's evaluation that is 05/02/2024,the patient denies any fever or any chills, patient is breathing comfortably on 2 L current oxygen, the patient denies chest pain shortness of breath and no significant cough, patient denies abdominal pain, no nausea vomiting or diarrhea. Creatinine 1.92 Objective - Vital Signs Vital signs: Vital Signs Temp 97.7 F 05/02/24 12:12 Pulse 128 H 05/02/24 12:12 Resp 18 05/02/24 12:12 BP 121/75 05/02/24 12:12 Pulse Ox 94 L 05/02/24 12:12 FiO2 Intake & Output 05/01/24 05/02/24 05/02/24 18:59 06:59 18:59 Intake Total 116.333 10 Output Total 150 0 250 Balance -150 116.333 -240 Weight 104.3 kg 105.1 kg Intake: IV 10 Invasive Line 5 10 Intake, IV Titration 116.333 Amount Diltiazem 125 mg In 116.333 Sodium Chloride 0.9% 100 ml @ 5 MG/HR 5 mls/hr IV .Q24H [facility] Rx#:[id number] Output: Urine 150 250 Stool 0 0 Other: Voiding Method Toilet Toilet Urinal - Exam GENERAL DESCRIPTION: Middle-age male lying in bed in no distress RESPIRATORY SYSTEM: Unlabored breathing , decreased breath sounds at bases HEART: S1 S2 regular rate and rhythm , ABDOMEN: Soft , no tenderness EXTREMITIES: Right foot wound wound is currently dressed - Labs CBC & Chem 7: 05/01/24 05:27 05/02/24 05:36 Labs: Abnormal Lab Results - Last 24 Hours (Table) 05/01/24 05/02/24 05/02/24 Range/Units 19:58 05:36 06:03 Chloride 110 H (98-107) mmol/L BUN 35 H (9-20) mg/dL Creatinine 1.92 H (0.66-1.25) mg/dL Glucose 129 H (74-99) mg/dL POC Glucose (mg/dL) 112 H 149 H (70-110) mg/dL Calcium 7.6 L (8.4-10.2) mg/dL ALT 71 H (4-49) U/L Total Protein 5.1 L (6.3-8.2) g/dL Albumin 2.6 L (3.5-5.0) g/dL 05/02/24 Range/Units 11:31 Chloride (98-107) mmol/L BUN (9-20) mg/dL Creatinine (0.66-1.25) mg/dL Glucose (74-99) mg/dL POC Glucose (mg/dL) 158 H (70-110) mg/dL Calcium (8.4-10.2) mg/dL ALT (4-49) U/L Total Protein (6.3-8.2) g/dL Albumin (3.5-5.0) g/dL Assessment and Plan (1) Cellulitis of right foot Current Visit: No Status: Acute Code(s): L03.115 - CELLULITIS OF RIGHT LOWER LIMB SNOMED Code(s): 04885192271967319 (2) Diabetic foot ulcer Current Visit: No Status: Acute Code(s): E11.621 - TYPE 2 DIABETES MELLITUS WITH FOOT ULCER; L97.509 - NON-PRESSURE CHRONIC ULCER OTH PRT UNSP FOOT W UNSP SEVERITY SNOMED Code(s): 645886360 Plan: 1patient presenting to the hospital mostly with generalized weakness low O2 sats possibly underlying cardiac etiology for the patient being managed by cardiology, patient also have a 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 2patient is afebrile white count has been normal, 3-patient to continue with Unasyn along with a local wound care and transition to oral Augmentin on discharge Dictation was produced using [employer] dictation software. please excuse any grammatical, word or spelling errors. Time with Patient: Less than 30
[2024-05-02 16:13] LABS: Glucose,Whole Blood 122 mg/dL (70-110)
[2024-05-02] MEDS: [UNRECOGNIZED DRUG - REMARK] IV SCH (18:20)
--- NOTE | 2024-05-02 22:29 | P.PN ---
Subjective Patient seen and evaluated at bedside. No overnight events, no acute complaints. Resting comfortably. Objective - Vital Signs Vital signs: Vital Signs Temp 98.1 F 05/02/24 20:00 Pulse 91 05/02/24 20:00 Resp 18 05/02/24 20:00 BP 107/65 05/02/24 20:00 Pulse Ox 92 L 05/02/24 20:00 FiO2 Intake & Output 05/02/24 05/02/24 05/03/24 06:59 18:59 06:59 Intake Total 116.333 10 10 Output Total 0 350 Balance 116.333 -340 10 Weight 105.1 kg Intake: IV 10 10 Invasive Line 5 10 10 Intake, IV Titration 116.333 Amount Diltiazem 125 mg In 116.333 Sodium Chloride 0.9% 100 ml @ 5 MG/HR 5 mls/hr IV .Q24H [facility] Rx#:[id number] Output: Urine 350 Stool 0 Other: Voiding Method Toilet Urinal Urinal - Exam gen: nad cv: rrr pul: non labored breathing abd: soft, non tender to palpation, no guarding or rebound tenderness - Labs CBC & Chem 7: 05/01/24 05:27 05/02/24 05:36 Labs: Abnormal Lab Results - Last 24 Hours (Table) 05/02/24 05/02/24 05/02/24 Range/Units 05:36 06:03 11:31 Chloride 110 H (98-107) mmol/L BUN 35 H (9-20) mg/dL Creatinine 1.92 H (0.66-1.25) mg/dL Glucose 129 H (74-99) mg/dL POC Glucose (mg/dL) 149 H 158 H (70-110) mg/dL Calcium 7.6 L (8.4-10.2) mg/dL ALT 71 H (4-49) U/L Total Protein 5.1 L (6.3-8.2) g/dL Albumin 2.6 L (3.5-5.0) g/dL 05/02/24 Range/Units 16:09 Chloride (98-107) mmol/L BUN (9-20) mg/dL Creatinine (0.66-1.25) mg/dL Glucose (74-99) mg/dL POC Glucose (mg/dL) 122 H (70-110) mg/dL Calcium (8.4-10.2) mg/dL ALT (4-49) U/L Total Protein (6.3-8.2) g/dL Albumin (3.5-5.0) g/dL Assessment and Plan Assessment: 1. Traumatic removal of PEG tube 2. Gastrostomy tube status 3. Dysphagia due to stroke 4. Obesity, BMI 33.23 5. Peripheral vascular occlusive disease PLAN: 1. Will need at least 5 to 7 days off Plavix prior to placement of gastrostomy tube. 2. TPN for nutrition. 3. Anticipated placement of feeding tube, May 04 Time with Patient: Less than 30
[2024-05-03 00:04] LABS: Glucose,Whole Blood 179 mg/dL (70-110)
[2024-05-03 05:59] LABS: Anisocytosis Marked; Basophils % (A) 0 %; Eosinophils # (A) 0.2 k/uL (0-0.7); Eosinophils % (A) 3 %; HCT 28.7 % (39.0-53.0); HGB 8.3 gm/dL (13.0-17.5); Hypochromasia Marked; Lymphocytes # (A) 0.8 k/uL (1.0-4.8); Lymphocytes % (A) 12 %; MCH 31.8 pg (25.0-35.0); Macrocytosis Marked; Monocytes # (A) 0.6 k/uL (0-1.0); Monocytes % (A) 9 %; Neutrophils # (A) 4.7 k/uL (1.3-7.7); Neutrophils % (A) 73 %; Platelet Count 274 k/uL (150-450); Poikilocytosis Moderate; RBC 2.61 m/uL (4.30-5.90); WBC 6.4 k/uL (3.8-10.6)
[2024-05-03 06:03] LABS: RDW 25.2 % (11.5-15.5)
[2024-05-03 06:06] LABS: Glucose,Whole Blood 180 mg/dL (70-110)
[2024-05-03 06:13] LABS: ALT 67 U/L (4-49); AST 46 U/L (17-59); African American GFR (CKD) 39 (>60 ml/min/1.73 sqM); Albumin 2.6 g/dL (3.5-5.0); Alkaline Phosphatase 69 U/L (38-126); Anion Gap 3 mmol/L; Blood Urea Nitrogen 37 mg/dL (9-20); Calcium 7.4 mg/dL (8.4-10.2); Carbon Dioxide 28 mmol/L (22-30); Chloride 108 mmol/L (98-107); Glucose 154 mg/dL (74-99); Magnesium 2.2 mg/dL (1.6-2.3); Non-African American GFR(CKD) 34 (>60 ml/min/1.73 sqM); Phosphorus 3.6 mg/dL (2.5-4.5); Potassium 4.6 mmol/L (3.5-5.1); Sodium 139 mmol/L (137-145); Total Bilirubin 0.9 mg/dL (0.2-1.3); Total Protein 5.2 g/dL (6.3-8.2)
--- NOTE | 2024-05-03 07:24 | P.PN ---
Subjective Progress Note Date: 05/03/24 This is a 63-year-old gentleman with extensive past medical history consistent of peripheral arterial disease as well as atrial fibrillation likely to be permanent as well as multiple comorbid conditions including recent diagnosis of cardiomyopathy and hypertension and dyslipidemia and diabetes and anemia was admitted to the hospital with shortness of breath. The patient recently had a stroke and apparently he cannot swallow. He has not been taking his oral medication and for that reason he went into A-fib with RVR and he was started on Cardizem IV. Eliquis was on hold because of anemia and also possible having PEG tube this coming Thursday May 02, 2024 The patient was seen and evaluated this morning with he is breathing has improved. His hypoxemia has improved as well. No symptoms of chest pain or chest discomfort. He continues to be in atrial fibrillation with controlled heart rate on the current dose of Cardizem IV. He is not on anticoagulation for the above reason. His mentation has improved significantly as well. He seems to be overall euvolemic on examination as well. Examination is remarkable for irregular rhythm with controlled heart rate and clear breathing sounds bila terally and mild bilateral lower extremities edema May 03, 2024 The patient was seen and evaluated this morning. His mentation has somewhat improved compared to before. His pressure has been marginally low and his creatinine is slightly increased compared to yesterday. Currently he is on Cardizem IV which I am going to stop and start the patient on amiodarone IV. Beside that he is not on any blood pressure medications. Anticoagulation is on hold at this point in the process of having a break tube placed tomorrow. No symptoms of chest pain or chest discomfort. Examination is remarkable for irregular rhythm with overall controlled heart rate and scattered bilateral rhonchi. Assessment Change in mental status which has improved Hypoxemia which has improved Shortness of breath which has improved Atrial fibrillation with controlled heart rate on the current dose of Cardizem IV History of permanent atrial fibrillation Marginally low blood pressure Acute on chronic renal failure Multiple comorbid conditions including anemia Plan DC Cardizem IV and start the patient on amiodarone IV Continue holding anticoagulation in anticipation of the PEG tube placement tomorrow Restart the patient back on oral anticoagulation once the procedure performed Follow-up with the patient Objective - Vital Signs Vital signs: Vital Signs Temp 98.0 F 05/03/24 02:00 Pulse 82 05/03/24 02:00 Resp 18 05/03/24 02:00 BP 96/58 05/03/24 02:00 Pulse Ox 97 05/03/24 02:00 FiO2 Intake & Output 05/02/24 05/03/24 05/03/24 18:59 06:59 18:59 Intake Total 10 130.75 Output Total 350 Balance -340 130.75 Weight 106.9 kg Intake: IV 10 10 Invasive Line 5 10 10 Intake, IV Titration 120.75 Amount Diltiazem 125 mg In 120.75 Sodium Chloride 0.9% 100 ml @ 5 MG/HR 5 mls/hr IV .Q24H [facility] Rx#:[id number] Output: Urine 350 Other: Voiding Method Urinal Urinal - Labs CBC & Chem 7: 05/03/24 05:21 05/03/24 05:21 Labs: Abnormal Lab Results - Last 24 Hours (Table) 05/02/24 05/02/24 05/03/24 Range/Units 11:31 16:09 00:02 RBC (4.30-5.90) m/uL Hgb (13.0-17.5) gm/dL Hct (39.0-53.0) % MCV (80.0-100.0) fL MCHC (31.0-37.0) g/dL RDW (11.5-15.5) % Lymphocytes # (1.0-4.8) k/uL Macrocytosis Chloride (98-107) mmol/L BUN (9-20) mg/dL Creatinine (0.66-1.25) mg/dL Glucose (74-99) mg/dL POC Glucose (mg/dL) 158 H 122 H 179 H (70-110) mg/dL Calcium (8.4-10.2) mg/dL ALT (4-49) U/L Total Protein (6.3-8.2) g/dL Albumin (3.5-5.0) g/dL 05/03/24 05/03/24 05/03/24 Range/Units 05:21 05:21 06:01 RBC 2.61 L (4.30-5.90) m/uL Hgb 8.3 L (13.0-17.5) gm/dL Hct 28.7 L (39.0-53.0) % MCV 110.0 H (80.0-100.0) fL MCHC 29.0 L (31.0-37.0) g/dL RDW 25.2 H (11.5-15.5) % Lymphocytes # 0.8 L (1.0-4.8) k/uL Macrocytosis Marked A Chloride 108 H (98-107) mmol/L BUN 37 H (9-20) mg/dL Creatinine 2.04 H (0.66-1.25) mg/dL Glucose 154 H (74-99) mg/dL POC Glucose (mg/dL) 180 H (70-110) mg/dL Calcium 7.4 L (8.4-10.2) mg/dL ALT 67 H (4-49) U/L Total Protein 5.2 L (6.3-8.2) g/dL Albumin 2.6 L (3.5-5.0) g/dL
[2024-05-03] MEDS: AMIODARONE 360 MG in DEXTROSE 5% IN WATER 200 ML IV ONE (09:11)
--- NOTE | 2024-05-03 09:25 | P.PN ---
Subjective Progress Note Date: 05/03/24 Everett Juárez, is a 63-year-old male who presented to [facility] emergency room with a chief complaint of worsening shortness of breath and generalized weakness, patient was recently admitted to [facility] with peripheral vascular disease right foot osteomyelitis and underwent stenting of the right SFA by Dr. Dillard, he has a previous history of right great toe amputation. He was evaluated in the emergency room vital examination on presentation revealed a temperature of 98.9 pulse 110 respiration 18 blood pressure 114/72 pulse ox 96% on room air Laboratory data reveals a white blood count of 8.7 hemoglobin 11.4 platelet count 283 sodium 139 potassium 4.9 chloride 110 CO2 23 BUN 41 creatinine 2.01 D- dimer was elevated at 2.10, troponin level was elevated at 0.043 Testing in the emergency room revealed chest x-ray done in the emergency room revealed cardiomegaly and mild pulmonary vascular congestion suggestive of congestive heart failure, VQ scan showed no evidence for pulmonary embolism, EKG revealed atrial fibrillation with moderate T wave abnormalities suggestive of lateral ischemia. Patient was admitted to medical floor for further evaluation and treatment Past medical history is significant for history of atrial fibrillation, history of peripheral arterial disease with previous history of right great toe amputation, history of COPD, history of diabetes mellitus type 2, history of hyperkalemia, history of chronic kidney disease. On review of systems patient is alert and oriented x 3 in no apparent distress, he is complaining of generalized weakness, complaining of shortness of breath, which is worse with activity, and complaining of right foot pain, otherwise he denies any complaints, there is no fever or chills no headache or dizziness no chest pain, no cough no nausea or vomiting no abdominal pain no diarrhea and no urinary symptoms On 04/14/2024 patient is alert and oriented 3.Patient remains on IV Unasyn and IV Lasix. 2-D echo completed showing an EF of 35-40%. Current vital signs temp 98.3, heart 81, respiratory rate 18, blood pressure 135/67 with a pulse ox of 100% on 3 L. Patient reports improvement with shortness of breath. Patient denies nausea vomiting or diarrhea. Patient denies any urinary burning or frequency On 04/15/2024 Patient is alert and oriented 3. Patient remains on IV Unasyn. Patient has been transitioned to by mouth Lasix.Current vital signs temp 97.1, heart rate 98, respiratory rate 18, blood pressure 121/79 with pulse ox 96% on 3 L. Patient denies chest pain or shortness breath. Patient denies nausea vomiting or diarrhea. Patient denies any urinary burning or frequency. On 04/16/2024 he is alert and oriented x 3 in no apparent distress he reports improvement in his shortness of breath there is no fever or chills no headache or dizziness no chest pain no cough no nausea or vomiting no abdominal pain no diarrhea and no urinary symptoms. On 04/17/2024 patient is alert and oriented x 3. Current vital signs Temp 98.1, heart rate 100, respiratory rate 16, blood pressure 153/81 with a pulse ox of 97% on 2 L. Patient remains on IV Unasyn. Awaiting final antibiotic recommenda tions per ID. Patient denies chest pain or shortness of breath. Patient denies nausea vomiting or diarrhea. Patient denies any urinary burning or frequency. On 04/18/2024 patient was seen and examined on the medical floor he is alert and oriented x 3 in no apparent distress there is no fever or chills no headache or dizziness no chest pain no shortness of breath no cough no nausea or vomiting no abdominal pain no diarrhea no urinary symptoms, he is still maintained on oxygen supplements, patient need to be assessed for need for home oxygen, he is also maintained on tube feeding, child support case officer is working on arrangement for tube feeding at home. Otherwise continue with current management will recheck in a.m.. On 04/19/2024 patient is alert and oriented x 3. Patient is maintained on 3 L n roberth cannula. Patient also maintained on IV Unasyn. Awaiting final IV recommendations from infectious disease. Current vital signs Temp 98.2, heart rate 82, blood pressure 116/70 with a pulse ox of 97% on 3 L patient denies chest pain or shortness of breath. Patient denies nausea vomiting or diarrhea. Patient denies any urinary burning or frequency On 04/20/2024 patient was seen and examined on the medical floor he is alert and oriented x 3 in no apparent distress, there is no fever or chills no headache or dizziness no chest pain no shortness of breath no cough no nausea or vomiting no abdominal pain no diarrhea no urinary symptoms, patient is still having difficulty with hyperkalemia, he is maintained on IV fluids and [facility] nephrology are following, will recheck labs in a.m. On 04/21/2024 patient is alert and oriented x 3. Potassium remains elevated at 5.9 awaiting further recommendations from nephrology standpoint. Patient denies chest pain or shortness of breath. Patient denies nausea vomiting or diarrhea. Patient denies any urinary burning or frequency On 04/22/2024 patient is alert and oriented x 3. Patient received 1 unit PRBCs for hemoglobin of 6.8 yesterday. GI services were consulted stool for occult blood ordered. Nephrology service is following for elevated potassium level. At this time patient denies chest pain or shortness of breath. Patient denies nausea vomiting or diarrhea. Patient denies any urinary burning frequency. On 04/23/2024 patient was seen and examined on the medical floor he is alert and oriented x 3 in no apparent distress, his hemoglobin today is again 6.01 unit of red blood cell transfusion was ordered, he was reevaluated by gastroenterology and plans are for EGD and colonoscopy tomorrow, otherwise he denies any complaints there is no fever or chills no headache or dizziness no chest pain no shortness of breath no cough no nausea or vomiting no abdominal pain no diarrhea no urinary symptoms On 04/24/2024 patient is alert and oriented 3. Plans for EGD and colonoscopy today with GI services.Patient had episodes of hypotension throughout night received IV bolus. Continue to transfuse patient for hemoglobin less than 7. Patient remains on IV Unasyn. This time patient denies chest pain or shortness breath. Patient denies nausea vomiting or diarrhea. Patient denies any urinary burning or frequency. On 04/25/2024 patient was seen and examined on the medical floor he is alert and oriented x 3 in no apparent distress there is no fever or chills no headache or dizziness no chest pain no shortness of breath no cough no nausea or vomiting no abdominal pain no diarrhea no urinary symptoms, hemoglobin is down again to 6.7 patient will be given 1 unit of red blood cell transfusion, EGD and colonoscopy results done yesterday were reviewed, at this time will consult Dr. Jackson regarding recurrent pneumonia requiring multiple red blood cell transfusion, continue with tube feeding at this time. On 04/26/2024 patient is alert and oriented x 3. Hemoglobin today 8.0. Awaiting oncology input. Patient denies chest pain or shortness of breath. Patient denies nausea vomiting or diarrhea. Patient denies any urinary burning or frequency. Current vital signs Temp 97.7, heart rate 91, respiratory rate 16, blood pressure 118/60 with pulse ox of 98% on 4 L On 04/27/2024 patient was seen and examined on the medical floor he is alert and oriented x 3 in no apparent distress he is complaining of generalized weakness otherwise he denies any specific complaints there is no fever or chills no headache or dizziness no chest pain no shortness of breath no cough no nausea or vomiting no abdominal pain no diarrhea no urinary symptoms. On 04/28/2024 patient was seen and examined on the medical floor he is alert and oriented x 3 in no apparent distress there is no fever or chills no headache or dizziness no chest pain no shortness of breath no cough no nausea or vomiting no abdominal pain no diarrhea and no urinary symptoms, hemoglobin is stabilizing around 8 will continue to monitor On 04/29/2024 patient is alert and oriented 3.heart rate elevated at 121 this AM. Patient being followed by cardiology services was given by mouth amiodarone awaiting further recommendations from cardiology services. Hemoglobin remained stable at 8.1. Patient denies chest pain or shortness of breath. Patient denies nausea vomiting or diarrhea. Patient denies any urinary burning or frequency On 04/30/2024 patient is alert resting comfortably in bed. Patient pulled out PEG tube yesterday. Patient unable to take pills by mouth. Surgical service is consulted for new PEG tube placement unable to do until Saturday due to patient being on Plavix Plavix currently on hold. Heart rate remains elevated Lopressor IV push has been ordered. Current vital signs temp 97.7, heart rate 127, blood pressure 118/72 with pulse ox 96% on 3 L. Patient denies chest pain or shortness of breath. Patient denies nausea vomiting or diarrhea. Patient denies any urinary burning or frequency on 05/01/2024 patient is resting comfortably in bed. Awaiting PEG tube placement on Saturday.current vital signs temp 98.1, heart rate 107, respiratory rate 18, blood pressure 115/73 with pulse ox 91% on 3 L. Patient denies chest pain or shortness of breath. Patient denies nausea vomiting or diarrhea On 05/02/2024 patient was seen and examined on the medical floor he is alert responsive in no apparent distress, there is no fever or chills no headache or dizziness no chest pain no shortness of breath no cough no nausea or vomiting no abdominal pain no diarrhea and no urinary symptoms, at this time we are awaiting replacement of his PEG tube, Plavix was held in that regard, PICC line was inserted and patient was started on TPN , continue current medications otherwise On 05/03/2024 patient is alert and oriented x 3 currently sitting up in bed. Per nursing staff patient is being switched to IV amiodarone for heart rate control. Patient was also started on TPN through PICC line. Patient to get PEG tube placement tomorrow and hopefully can restart back on p.o. medications for heart rate control. Patient denies chest pain or shortness of breath. Patient denies nausea vomiting or diarrhea. Patient denies any urinary burning or frequency Objective - Vital Signs Vital signs: Vital Signs Temp 98.0 F 05/03/24 02:00 Pulse 82 05/03/24 02:00 Resp 18 05/03/24 02:00 BP 96/58 05/03/24 02:00 Pulse Ox 97 05/03/24 02:00 FiO2 Intake & Output 05/02/24 05/03/24 05/03/24 18:59 06:59 18:59 Intake Total 10 130.75 Output Total 350 Balance -340 130.75 Weight 106.9 kg Intake: IV 10 10 Invasive Line 5 10 10 Intake, IV Titration 120.75 Amount Diltiazem 125 mg In 120.75 Sodium Chloride 0.9% 100 ml @ 5 MG/HR 5 mls/hr IV .Q24H [facility] Rx#:[id number] Output: Urine 350 Other: Voiding Method Urinal Urinal - Exam In general patient is alert and oriented x 3 in no distress HEENT head normocephalic and atraumatic Neck is supple no JVD no goiter no lymphadenopathy no carotid bruit Chest examination reveals a scattered crackles in both lung [place] no wheezing Cardiac exam reveals irregular heart sounds S1 and S2 no gallops no murmurs Abdomen is soft nontender no organomegaly with normal bowel sounds Extremity exam reveals no edema no cyanosis or clubbing, the right great toe is amputated with a large ulcer at the base of the amputated right great toe with purulent discharge Neurological examination reveals no gross focal deficits - Labs CBC & Chem 7: 05/03/24 05:21 05/03/24 05:21 Labs: Abnormal Lab Results - Last 24 Hours (Table) 05/02/24 05/02/24 05/03/24 Range/Units 11:31 16:09 00:02 RBC (4.30-5.90) m/uL Hgb (13.0-17.5) gm/dL Hct (39.0-53.0) % MCV (80.0-100.0) fL MCHC (31.0-37.0) g/dL RDW (11.5-15.5) % Lymphocytes # (1.0-4.8) k/uL Macrocytosis Chloride (98-107) mmol/L BUN (9-20) mg/dL Creatinine (0.66-1.25) mg/dL Glucose (74-99) mg/dL POC Glucose (mg/dL) 158 H 122 H 179 H (70-110) mg/dL Calcium (8.4-10.2) mg/dL ALT (4-49) U/L Total Protein (6.3-8.2) g/dL Albumin (3.5-5.0) g/dL 05/03/24 05/03/24 05/03/24 Range/Units 05:21 05:21 06:01 RBC 2.61 L (4.30-5.90) m/uL Hgb 8.3 L (13.0-17.5) gm/dL Hct 28.7 L (39.0-53.0) % MCV 110.0 H (80.0-100.0) fL MCHC 29.0 L (31.0-37.0) g/dL RDW 25.2 H (11.5-15.5) % Lymphocytes # 0.8 L (1.0-4.8) k/uL Macrocytosis Marked A Chloride 108 H (98-107) mmol/L BUN 37 H (9-20) mg/dL Creatinine 2.04 H (0.66-1.25) mg/dL Glucose 154 H (74-99) mg/dL POC Glucose (mg/dL) 180 H (70-110) mg/dL Calcium 7.4 L (8.4-10.2) mg/dL ALT 67 H (4-49) U/L Total Protein 5.2 L (6.3-8.2) g/dL Albumin 2.6 L (3.5-5.0) g/dL Assessment and Plan Plan: Worsening shortness of breath, multifactorial, possibly related to acute congestive heart failure, and underlying COPD Atrial fibrillation, with rapid ventricular response on presentation, heart rate was 110 New onset cardiomyopathy. Anemia status post EGD and colonoscopy on 04/24/2024 Generalized weakness Large ulcer at the base of the right great toe with purulent discharge, patient was maintained on oral Augmentin as outpatient, infectious disease consultation requested Underlying history of peripheral arterial disease, with recent history of angioplasty and stent placement to the right lower extremity on 04/08/2024 Underlying history of diabetes mellitus Underlying history of chronic obstructive pulmonary disease Underlying history of chronic kidney disease Underlying history of hyperkalemia Underlying history of chronic continued tobacco abuse Patient pulled out PEG tube. Surgical surfaces consulted. Plans for PEG tube placement on 05/04/2024 At this time patient is admitted to telemetry floor Home medications reviewed and reordered Consultation for cardiology and pulmonary were requested in the emergency room For DVT prophylaxis, patient is maintained on scds (eliquis on hold due to anemia) Will add infectious disease consultation in regard to base of right great toe ulcer Will follow closely
--- NOTE | 2024-05-03 11:29 | P.PN ---
Subjective Progress Note Date: 05/03/24 Principal diagnosis: Anemia. This is a 63-year-old white male with history of multiple medical problems including coronary artery disease, chronic atrial fibrillation, peripheral vessel occlusive disease, severe pulmonary hypertension, chronic obstructive pulmonary disease, patient normally sees Dr. Dillard on outpatient basis. Patient was never seen by a menagerie caretaker. Admitted this time with few days history of increased shortness of breath, and according to the his O2 saturation was down in the 60s. Patient was brought into the ER, chest x-ray showed evidence of pulmonary edema, VQ scan negative for pulmonary embolism, patient was admitted and this consult was initiated. Patient is not a great historian, most of the information was obtained from his , apparently the patient had history of CVA in the past, and he had a previous PEG tube placement Labs on admission showed relatively normal CBC, no leukocytosis, D-dimer was a bit elevated at 2.10 and renal profile was abnormal with BUN of 43 and creatinine 2.01 however BNP level was 12,300 and troponin was 0.043. Since admission, the patient received 1 dose of Lasix, and he is at least 1.5 L negative fluid balance The patient is seen today April 14, 2024 in follow-up on the selective care unit. He is currently sitting up at the bedside. Awake and alert in no acute distress. Breathing a bit easier today compared to yesterday. Currently maintaining good O2 saturations in the upper 90s on 3 L/min per nasal cannula. He is afebrile. Hemodynamically stable. Echocardiogram reveals impaired left ventricular systolic function with an ejection fraction of 35 to 40%. Severe pulmonary hypertension. Moderate to severely dilated left atrium. Right first toe culture is pending. Currently on Unasyn. Glucose 125. Being nourished with Glucerna at 51 MLS per hour via his PEG tube. Anticoagulated with Eliquis. Remains on diuretics. Making adequate urine. The patient is seen today April 15, 2024 in follow-up on the selective care unit. He is awake and alert in no acute distress. Maintaining O2 saturations in the 90s on 3 L/min per nasal cannula. Hemodynamically stable. White count 8.4. Hemoglobin 11.2. Platelets 321. Sodium 143. Potassium 4.9. Bicarb 29. BUN 45. Creatinine 1.99. Glucose 126. He is continued on Unasyn. Anticoagulated with Eliquis. Remains on bronchodilators. Remains on oral diuretics. Continued on Glucerna via his PEG tube. Barium swallow is pending so the patient can continue on tube feedings in the outpatient setting Patient was evaluated today on 04/16/2024, patient is doing well, comfortable, not in any distress, on 3 L nasal cannula with O2 sats of 96%. WBC is 8.5 hemoglobin 10.5 electrolytes are relatively normal with potassium of 5.2 BUN is 48 creatinine 1.94, steadily improving since admission patient had a successful swallow evaluation study that came back unremarkable. The patient was seen today April 17, 2024 in follow-up on the selective care unit. He is currently resting comfortably in bed. Awake and alert in no acute distress. Maintaining O2 saturations in the 90s on 2 L/min per nasal cannula. Right foot culture results revealing no growth. White count 9.6. Hemoglobin 10.9. Platelets 305. Sodium 145. Potassium 5.4. Bicarb 32. BUN 56. Creatinine 1.99. Glucose 133. He remains on bronchodilators. Anticoagulated with Eliquis. Antibiotics in the form of Unasyn. Remains on Glucerna tube feedings. The patient is seen today April 18, 2024 in follow-up on the regular medical floor. He is currently sitting up at the bedside. Awake and alert in no acute distress. Maintaining O2 saturations in the 90s on 2 L/min per nasal cannula. He has been afebrile. Hemodynamically stable. He remains on Glucerna at 51 mL/h which is goal. He remains on antibiotics in the form of Unasyn. His right foot dressing is dry and intact. Glucose 140. He remains on bronchodilators. Oral diuretics. Anticoagulated with Eliquis. The patient is seen today April 19, 2024 in follow-up on the regular medical floor. He is currently sitting up in bed. Awake and alert in no acute distress. He is maintaining good O2 saturations in the 90s on 3 L/min per nasal cannula. He remains on antibiotics in the form of Unasyn. He is being nourished with Glucerna at 51 mL/h which is his goal. He is continued on bronchodilators. Anticoagulated with Eliquis. Normal saline at 100 MLS per hour. White count 10.8. Hemoglobin 9.2. Platelets 307. Sodium 147. Potassium 6.3. BUN 84. Creatinine 2.3. Glucose 105. The patient is seen today April 20, 2024 in follow-up on the regular medical floor. He is currently sitting up at the bedside. Awake and alert in no acute distress. Maintaining good O2 saturations in the 90s on 4 L/min per nasal cannula. He remains on Glucerna at 51 mL/h which is goal. 0.45% normal saline at 75 MLS per hour. Potassium 5.6. Bicarb 30. BUN 90. Creatinine 2.4. Glucose 120. He received Lokelma yesterday for his hyperkalemia. Right foot cultures revealed no growth. Sputum culture revealed Jenae. He continues on Unasyn per ID service. He remains on bronchodilators. Anticoagulated with Eliquis. Remains on oral diuretics. The patient is seen today April 21, 2024 in follow-up on the regular medical floor. He is awake and alert in no acute distress. Sitting up at the bedside. Denies any worsening shortness of breath, cough or congestion. Continues to maintain good O2 saturations in the upper 90s on 4 L/min per nasal cannula. He is afebrile. Hemodynamically stable. White count 11.0. Hemoglobin 6.8. Platelets 324. Sodium 143. Potassium 5.9. Bicarb 29. BUN 98. Creatinine 2.4. Glucose 127. Nephrology is following. He remains on bronchodilators and Unasyn. The patient is seen today April 22, 2024 in follow-up on the regular medical floor. He is currently sitting up at the bedside. Awake and alert in no acute distress. He is receiving 2 units of packed red blood cells for hemoglobin of 6.4 today. White count 10.7. Platelets 308. Sodium 141. Potassium 5.8. Bicarb 28. BUN 107. Creatinine 2.7. Glucose 150. He remains on Unasyn. Continued on bronchodilators. Remains on Lokelma for his hyperkalemia. Receiving folate acid. The patient is seen today April 23, 2024 in follow-up on the regular medical floor. He is awake and alert in no acute distress. Maintaining O2 saturations in the 90s on 2 L/min per nasal cannula. Receiving normal saline at 20 MLS per hour. Continued on Nepro PEG tube feedings at 43 mL/h which is goal. He is status post 2 units of packed red blood cells. Hemoglobin 6.0 today. To receive 1 unit of packed red blood cells today unit. GI service is following. White count 13.7. Platelets 300. Sodium 141. Potassium 5.0. Bicarb 30. BUN 109. Creatinine 2.5. Glucose 146. He remains on Unasyn. Remains on Lokelma. The patient is seen today 04/24/2020 for follow-up on the regular medical floor. He is currently resting in bed. He has been having issues with anemia and his hemoglobin was 6.3 again today. He is receiving his fourth unit of packed red blood cells. He has received 2-1/2 L of fluid resuscitation. He is awaiting EGD/colonoscopy today. He remains on Unasyn. Continued on bronchodilators. Remains on Lokelma. white count 13.9. Platelets 323. Sodium 145. Potassium 5.3. Bicarb 27. BUN 89. Creatinine 2.3. Glucose 129. Progress note dated April 25, 2024. 63-year-old male seen on the general medical floor. He is in room 475. The patient is currently resting in bed. He denies any specific complaints, although he appears to be a bit weak. He had blood work today showing a white count of 12.5, hemoglobin 6.7, hematocrit 21.4, and a platelet count of 290,000. Sodium 142, potassium 4.8, chlorides 106, CO2 26, BUN 79, creatinine 2.3. Glucose was 142. AST 77 with an ALT of 69. Sputum samples are essentially negative although there is some Jenae albicans on the most recent sputum. No recent chest x-ray. Progress note dated April 26, 2024. 63-year-old male seen today in room 475. The patient continues on oxygen by nasal cannula at 4 L, saline at 20 cc an hour, and Nepro tube feedings at 43 cc an hour. The patient's hemoglobin this morning was 8. He has received a total of 5 units of packed red blood cells, while here in the hospital. Clinically, he looks better today. Much more awake and alert. Has no complaints. Current white count 10.5, hemoglobin 8, hematocrit 24.6, platelet count 297,000. Sodium 140, potassium 4.2, chlorides 106, CO2 28, BUN 66, and creatinine 2.03. Glucose is 120. Calcium is 8.1. Cultures are negative. No recent chest x-ray. The patient is seen today April 27, 2024 in follow-up on the regular medical floor. He is currently awake and alert in no acute distress. He is sitting up in a chair at the bedside. He is maintaining good O2 saturations in the 90s on 3 L/min per nasal cannula. He is being nourished with Nepro at 43 mL/h. He is status post 5 units of packed red blood cells this admission. No further bleeding noted. White count 9.3. Hemoglobin 8.1. Platelets 292. Sodium 144. Potassium 4.8. Bicarb 29. BUN 50. Creatinine 1.9. Glucose 101. He remains on antibiotics in the form of Unasyn. Continued on bronchodilators. The patient is seen today April 28, 2024 in follow-up on the regular medical floor. He is sitting up in bed. Awake and alert in no acute distress. Asking about going home. He denies any shortness of breath, cough or congestion. He is maintaining good O2 saturations in the 90s on 2 L/min per nasal cannula. He is status post 5 units of packed red blood cells this admission. Current hemoglobin 8.1. Platelets 311. White count 9.7. Sodium 142. Potassium 4.7. Bicarb 28. BUN 45. Creatinine 2.0. Glucose 119. He remains on bronchodilators. Remains on Unasyn per ID service. The patient is seen today April 29, 2024 in follow-up on the regular medical floor. He is awake and alert in no acute distress. He is maintaining good O2 saturations in the 90s on 3 L/min per nasal cannula. He is being nourished with Nepro at 43 mL/h which is goal. He is continued on antibiotics in the form of Unasyn. Sputum is positive for Jenae only. Glucose 131. Recent hemoglobin 8.1 Progress note dated April 30, 2024. The patient was seen in room 353. For some reason he was moved down to the third floor, and apparently he pulled out his PEG tube. Currently, he is receiving IV Lopressor, for blood pressure support periodically. He is on 3 L of oxygen by nasal cannula. He is not receiving any IV fluids. The PEG tube will have to be reinserted, but cannot be placed on till Saturday. No new labs today other than a glucose of 77. Progress note dated May 01, 2024. The patient is again seen in room 353. He is sitting in bed. Currently, the patient is on 3 L of oxygen. The patient is getting saline at 75 cc an hour. The patient is also on Cardizem at 5 mg an hour. The patient apparently accidentally pulled out his PEG tube, and it cannot be replaced until Saturday at the earliest. Current labs include a white count of 7.4, hemoglobin 8.5, hematocrit 28.6, and platelet count 319,000. Sodium 142, potassium 5.1, chlorides 110, CO2 28, BUN 38, and creatinine 2.01. Glucose is 107. Calcium 7.5. Ionized calcium 4.3. Albumin is 2.7. Progress note dated May 02, 2024. 63-year-old male who is now been in the hospital for about 3 weeks. Currently, he is on 2 L of oxygen by nasal cannula, getting saline at 75 cc an hour, Cardizem at 5 mg an hour, and TPN at 30 MLS per hour. He is sitting at the side of his bed. No respiratory distress or difficulty. The plan is to replace his PEG tube on Saturday. He apparently accidentally pulled it out. Current labs include sodium 141, potassium 4.9, chlorides 110, CO2 26, anion gap 5, BUN 35, creatinine 1.92. Glucose is 149. Albumin is 2.6. Calcium is 7.6. Chest x-ray from yesterday is consistent with cardiomegaly. Progress note dated May 03, 2024. 63-year-old male seen today in room 353. Currently, the patient is on nasal O2 at 2 L. He is not receiving any IV fluids. The patient continues on IV Unasyn. The patient is supposed to have a reinsertion of the PEG tube, that he accidentally pulled out, tomorrow, May 05. The patient has no specific complaints today. Current labs include a white count 6.4, hemoglobin 8.3, hematocrit 28.7, platelet count 274,000. Sodium 139, potassium 4.6, chlorides 108, CO2 28, BUN 37, creatinine 2.04. Glucose is 180. Albumin is 2.6. Objective - Vital Signs Vital signs: Vital Signs Temp 97.6 F 05/03/24 09:06 Pulse 117 H 05/03/24 09:06 Resp 20 05/03/24 09:06 BP 142/92 05/03/24 09:06 Pulse Ox 96 05/03/24 09:58 FiO2 Intake & Output 05/02/24 05/03/24 05/03/24 18:59 06:59 18:59 Intake Total 10 130.75 20 Output Total 350 Balance -340 130.75 20 Weight 106.9 kg Intake: IV 10 10 20 Invasive Line 5 10 10 10 Invasive Line 7 10 Intake, IV Titration 120.75 Amount Diltiazem 125 mg In 120.75 Sodium Chloride 0.9% 100 ml @ 5 MG/HR 5 mls/hr IV .Q24H [facility] Rx#:[id number] Output: Urine 350 Other: Voiding Method Urinal Urinal Urinal - Exam No acute distress, oriented 3. 2 L saturation is 98 %. HEENT examination is grossly unremarkable. Mucous membranes are moist. No oral lesions. Neck supple. Full range of motion. No adenopathy thyromegaly or neck vein distention. Cardiovascular examination reveals regular rhythm rate. S1-S2 normal. No S3 or S4. No discernible murmur noted. Heart sounds are distant. Heart rate 87 bpm. Lungs reveal mostly clear breath sounds. Scattered rhonchi. No wheezes or crackles. 2 L saturation is 98 %. Breath sounds are equal bilaterally. Abdomen soft bowel sounds are heard. No masses or tenderness. Extremities are intact. No cyanosis clubbing or edema. Skin is without rash or lesion. Neurologic examination is brief but nonfocal. - Labs CBC & Chem 7: 05/03/24 05:21 05/03/24 05:21 Labs: Abnormal Lab Results - Last 24 Hours (Table) 05/02/24 05/02/24 05/03/24 Range/Units 11:31 16:09 00:02 RBC (4.30-5.90) m/uL Hgb (13.0-17.5) gm/dL Hct (39.0-53.0) % MCV (80.0-100.0) fL MCHC (31.0-37.0) g/dL RDW (11.5-15.5) % Lymphocytes # (1.0-4.8) k/uL Macrocytosis Chloride (98-107) mmol/L BUN (9-20) mg/dL Creatinine (0.66-1.25) mg/dL Glucose (74-99) mg/dL POC Glucose (mg/dL) 158 H 122 H 179 H (70-110) mg/dL Calcium (8.4-10.2) mg/dL ALT (4-49) U/L Total Protein (6.3-8.2) g/dL Albumin (3.5-5.0) g/dL 05/03/24 05/03/24 05/03/24 Range/Units 05:21 05:21 06:01 RBC 2.61 L (4.30-5.90) m/uL Hgb 8.3 L (13.0-17.5) gm/dL Hct 28.7 L (39.0-53.0) % MCV 110.0 H (80.0-100.0) fL MCHC 29.0 L (31.0-37.0) g/dL RDW 25.2 H (11.5-15.5) % Lymphocytes # 0.8 L (1.0-4.8) k/uL Macrocytosis Marked A Chloride 108 H (98-107) mmol/L BUN 37 H (9-20) mg/dL Creatinine 2.04 H (0.66-1.25) mg/dL Glucose 154 H (74-99) mg/dL POC Glucose (mg/dL) 180 H (70-110) mg/dL Calcium 7.4 L (8.4-10.2) mg/dL ALT 67 H (4-49) U/L Total Protein 5.2 L (6.3-8.2) g/dL Albumin 2.6 L (3.5-5.0) g/dL Assessment and Plan Assessment: Acute hypoxic respiratory failure secondary to an acute exacerbation of systolic congestive heart failure. 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 Acute on chronic stage IV kidney disease. Anemia suspect secondary to above, S/P 5 units of blood. Hypotension secondary to anemia, received 2-1/2 L of fluid resuscitation, midodrine added. Hyperkalemia resolved. Hypernatremia, resolved. History of peripheral vessel occlusive disease and previous stenting of right SFA and right popliteal artery. Severe pulmonary hypertension. Paroxysmal atrial fibrillation, anticoagulated with Eliquis. 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 Type 2 diabetes mellitus. Chronic and ongoing tobacco dependence. Plan: Plan dated April 25, 2024. The patient is seen in room 475. The patient is currently on 4 L. Saturations are 96%. The patient will likely get his fifth unit of blood today. His hemoglobin is below 7. Labs, x-rays, medications are reviewed. The patient's overall prognosis remains guarded. We will continue to follow the patient, make recommendations along the way. His blood pressure has been much more stable, with fluid resuscitation, and blood. Plan dated April 26, 2024. Clinically, the patient looks about as good as he is look since I seen him for the last 6 to 7 days. His vital signs are stable. He continues on oxygen at 4 L. Saturations are 96%. He continues on tube feedings with Nepro. Labs, x- rays, medications are reviewed. He has received a total of 5 units of packed red blood cells. The patient's hemoglobin this morning was 8. We will continue to follow make recommendations along the way. Plan dated April 30, 2024. The patient is seen today in room 353. The patient was transferred down from the fourth floor. I am not sure why that was. The patient did pull out his PEG tube. That will have to be reinserted. In addition, he is getting Lopressor IV, for blood pressure support. Will start him on oral Lopressor, once the PEG tube is back in place. Labs, x-rays, and all medications are reviewed. Prognosis is guarded. We will continue to follow and make recommendations. Plan dated May 01, 2024. The patient apparently will have his PEG tube replaced on Saturday. Labs, x-rays, medications are reviewed. We will continue to follow. Respiratory status is stable. No additional recommendations are made. The patient has not been in the hospital for 19 days. Plan dated May 02, 2024. The patient was seen in room 353. The patient continues on O2 at 2 L, TPN at 30 cc/h, Cardizem drip at 5 mg an hour, and saline at 75 cc an hour. The plan is to reinsert the patient's PEG tube on Saturday. The patient accidentally removed his PEG tube. Labs, x-rays, medications are reviewed. Hopeful discharge soon, as the patient has now been in the hospital for nearly 3 weeks. The patient's overall prognosis remains guarded. Plan dated May 03, 2024. The patient is seen today in room 353. The patient is comfortable. No specific complaints. He denies any shortness of breath, cough, wheezing, chest tightness, or phlegm production. He continues on 2 L of oxygen. Saturations are excellent at 98%. The patient will have reinsertion of the PEG tube tomorrow. We will continue to follow. Prognosis is guarded. Respiratory status is stable. Blood pressure is stable. Time with Patient: Less than 30
[2024-05-03 11:45] LABS: Glucose,Whole Blood 200 mg/dL (70-110)
--- NOTE | 2024-05-03 12:22 | P.PN ---
Subjective patient is seen for follow-up for acute kidney injury and chronic kidney disease. Patient pulled out his PEG tube and he is scheduled for reinsertion of PEG tube on 05/04/2024. Serum creatinine stable at about 2.0 mg/dL. no complaints today. maintained on TPN Objective - Vital Signs Vital signs: Vital Signs Temp 97.9 F 05/03/24 11:50 Pulse 124 H 05/03/24 11:50 Resp 18 05/03/24 11:50 BP 131/73 05/03/24 11:50 Pulse Ox 90 L 05/03/24 11:50 FiO2 Intake & Output 05/02/24 05/03/24 05/03/24 18:59 06:59 18:59 Intake Total 10 130.75 20 Output Total 350 Balance -340 130.75 20 Weight 106.9 kg Intake: IV 10 10 20 Invasive Line 5 10 10 10 Invasive Line 7 10 Intake, IV Titration 120.75 Amount Diltiazem 125 mg In 120.75 Sodium Chloride 0.9% 100 ml @ 5 MG/HR 5 mls/hr IV .Q24H [facility] Rx#:[id number] Output: Urine 350 Other: Voiding Method Urinal Urinal Urinal - Exam patient is awake, comfortable, no acute distress. Examination of the heart S1 and S2 Examination lungs bilateral breath sounds are heard Abdomen is soft nontender Examination lower extremities shows no significant edema. SENIOR [employer]ICULT[employer] ASSISTANT exam grossly intact - Labs CBC & Chem 7: 05/03/24 05:21 05/03/24 05:21 Labs: Abnormal Lab Results - Last 24 Hours (Table) 05/02/24 05/03/24 05/03/24 Range/Units 16:09 00:02 05:21 RBC (4.30-5.90) m/uL Hgb (13.0-17.5) gm/dL Hct (39.0-53.0) % MCV (80.0-100.0) fL MCHC (31.0-37.0) g/dL RDW (11.5-15.5) % Lymphocytes # (1.0-4.8) k/uL Macrocytosis Chloride 108 H (98-107) mmol/L BUN 37 H (9-20) mg/dL Creatinine 2.04 H (0.66-1.25) mg/dL Glucose 154 H (74-99) mg/dL POC Glucose (mg/dL) 122 H 179 H (70-110) mg/dL Calcium 7.4 L (8.4-10.2) mg/dL ALT 67 H (4-49) U/L Total Protein 5.2 L (6.3-8.2) g/dL Albumin 2.6 L (3.5-5.0) g/dL 05/03/24 05/03/24 05/03/24 Range/Units 05:21 06:01 11:44 RBC 2.61 L (4.30-5.90) m/uL Hgb 8.3 L (13.0-17.5) gm/dL Hct 28.7 L (39.0-53.0) % MCV 110.0 H (80.0-100.0) fL MCHC 29.0 L (31.0-37.0) g/dL RDW 25.2 H (11.5-15.5) % Lymphocytes # 0.8 L (1.0-4.8) k/uL Macrocytosis Marked A Chloride (98-107) mmol/L BUN (9-20) mg/dL Creatinine (0.66-1.25) mg/dL Glucose (74-99) mg/dL POC Glucose (mg/dL) 180 H 200 H (70-110) mg/dL Calcium (8.4-10.2) mg/dL ALT (4-49) U/L Total Protein (6.3-8.2) g/dL Albumin (3.5-5.0) g/dL Assessment and Plan Assessment: 1. Acute kidney injury secondary to ATN secondary to acute blood loss anemia. Creatinine peaked at 2.7 this admission and stable at 1.9 - 2.0. No hydronephrosis noted on kidney ultrasound. UA fairly benign. 2. Chronic kidney disease stage IV baseline creatinine 1.8-2.0 secondary to solitary right kidney. History of left nephrectomy. 3. Chronic systolic CHF ejection fraction of 35 to 40% with severe pulmonary hypertension. 4. Diabetes mellitus. 5. Hypernatremia from lack of oral water intake. Improved. 6. Hyperkalemia secondary to acute kidney injury and GI bleed. Resolved. 7. Peripheral vascular disease. 8. Acute blood loss anemia with hemoglobin. No active bleeding. Status post blood transfusions and IV DDAVP. Also on Aranesp. GI following. Plan: continue TPN until PEG tube placement. Repeat labs in a.m.
--- NOTE | 2024-05-03 14:07 | P.PN ---
Subjective Progress Note Date: 05/03/24 CHIEF COMPLAINT: Gastrostomy tube status HISTORY OF PRESENT ILLNESS: The patient is a 63-year-old male who pulled out his feeding tube. No new complaints. He is on TPN for nutrition. Patient denies any abdominal pain. ROS: No reports of nausea and vomiting. No fevers or chills. No new chest pain. Has peripheral vascular occlusive disease. PHYSICAL EXAM: VITAL SIGNS: Reviewed CONSTITUTIONAL: Well developed and in no acute distress. EYES: Conjuctivae without sclera icterus. Extraocular movements grossly intact. HEAD, EARS, NOSE, THROAT: Moist buccal mucosa. Head is atraumatic, normoceph alic. Hears conversational speech. No nasal drainage. RESPIRATORY: Non-labored respirations and equal bilateral excursions. CARDIOVASCULAR: Palpable 2+ radial pulses. ABDOMEN: Obese. No peritonitis. MUSCULOSKELETAL: Amputation of right toes due to peripheral vascular occlusive disease SKIN: Good skin turgor. Well perfused. NEUROLOGIC: Cranial nerves II through XII grossly intact. No focal or lateralizing signs. PSYCH: Appropriate affect. Alert and oriented to person. CLINICAL LABS: Reviewed. WBC normal. ASSESSMENT: 1. Traumatic removal of PEG tube 2. Gastrostomy tube status 3. Dysphagia due to stroke 4. Obesity, BMI 33.23 5. Peripheral vascular occlusive disease PLAN: 1. Feeding tube placement for tomorrow. May continue aspirin 81 mg in the interim. 2. May restart feeding tube within 24 hours after placement. Objective - Vital Signs Vital signs: Vital Signs Temp 97.9 F 05/03/24 11:50 Pulse 124 H 05/03/24 11:50 Resp 18 05/03/24 11:50 BP 131/73 05/03/24 11:50 Pulse Ox 90 L 05/03/24 11:50 FiO2 Intake & Output 05/02/24 05/03/24 05/03/24 18:59 06:59 18:59 Intake Total 10 130.75 20 Output Total 350 Balance -340 130.75 20 Weight 106.9 kg Intake: IV 10 10 20 Invasive Line 5 10 10 10 Invasive Line 7 10 Intake, IV Titration 120.75 Amount Diltiazem 125 mg In 120.75 Sodium Chloride 0.9% 100 ml @ 5 MG/HR 5 mls/hr IV .Q24H [facility] Rx#:[id number] Output: Urine 350 Other: Voiding Method Urinal Urinal Urinal - Labs CBC & Chem 7: 05/03/24 05:21 05/03/24 05:21 Labs: Abnormal Lab Results - Last 24 Hours (Table) 05/02/24 05/03/24 05/03/24 Range/Units 16:09 00:02 05:21 RBC (4.30-5.90) m/uL Hgb (13.0-17.5) gm/dL Hct (39.0-53.0) % MCV (80.0-100.0) fL MCHC (31.0-37.0) g/dL RDW (11.5-15.5) % Lymphocytes # (1.0-4.8) k/uL Macrocytosis Chloride 108 H (98-107) mmol/L BUN 37 H (9-20) mg/dL Creatinine 2.04 H (0.66-1.25) mg/dL Glucose 154 H (74-99) mg/dL POC Glucose (mg/dL) 122 H 179 H (70-110) mg/dL Calcium 7.4 L (8.4-10.2) mg/dL ALT 67 H (4-49) U/L Total Protein 5.2 L (6.3-8.2) g/dL Albumin 2.6 L (3.5-5.0) g/dL 05/03/24 05/03/24 05/03/24 Range/Units 05:21 06:01 11:44 RBC 2.61 L (4.30-5.90) m/uL Hgb 8.3 L (13.0-17.5) gm/dL Hct 28.7 L (39.0-53.0) % MCV 110.0 H (80.0-100.0) fL MCHC 29.0 L (31.0-37.0) g/dL RDW 25.2 H (11.5-15.5) % Lymphocytes # 0.8 L (1.0-4.8) k/uL Macrocytosis Marked A Chloride (98-107) mmol/L BUN (9-20) mg/dL Creatinine (0.66-1.25) mg/dL Glucose (74-99) mg/dL POC Glucose (mg/dL) 180 H 200 H (70-110) mg/dL Calcium (8.4-10.2) mg/dL ALT (4-49) U/L Total Protein (6.3-8.2) g/dL Albumin (3.5-5.0) g/dL
[2024-05-03] MEDS: AMIODARONE 450 MG in DEXTROSE 5% IN WATER 250 ML IV SCH (15:59)
[2024-05-03 16:56] LABS: Glucose,Whole Blood 159 mg/dL (70-110)
[2024-05-03] MEDS: HEPARIN SOD,PORK IN 0.45% NACL 25,000 UNIT in 0.45% NACL 1 250ML.BAG IV SCH (19:00)
[2024-05-03] MEDS: HEPARIN SODIUM 1,000 UN/ML (10ML VL) IV ONE (19:01)
[2024-05-03 19:40] LABS: Anisocytosis Marked; Basophils % (A) 0 %; Eosinophils # (A) 0.2 k/uL (0-0.7); Eosinophils % (A) 3 %; HCT 31.5 % (39.0-53.0); Hypochromasia Marked; Lymphocytes # (A) 0.8 k/uL (1.0-4.8); Lymphocytes % (A) 11 %; MCH 31.6 pg (25.0-35.0); MCHC 28.7 g/dL (31.0-37.0); MCV 110.3 fL (80.0-100.0); Macrocytosis Marked; Monocytes # (A) 0.8 k/uL (0-1.0); Monocytes % (A) 11 %; Neutrophils # (A) 5.1 k/uL (1.3-7.7); Neutrophils % (A) 72 %; Platelet Count 289 k/uL (150-450); Poikilocytosis Moderate; RBC 2.85 m/uL (4.30-5.90); RDW 24.3 % (11.5-15.5)
[2024-05-03 19:42] LABS: INR 1.2 (<1.2); Partial Thromboplastin Time 28.4 sec (22.0-30.0)
[2024-05-03 20:02] LABS: Target Cells Present; Tear Drop Cells Present
[2024-05-03 20:04] LABS: Crenated RBC Present; Polychromasia Present
[2024-05-03 20:08] LABS: Glucose,Whole Blood 130 mg/dL (70-110)
[2024-05-03 23:58] LABS: Glucose,Whole Blood 166 mg/dL (70-110)
[2024-05-04 05:53] LABS: Glucose,Whole Blood 170 mg/dL (70-110)
[2024-05-04 06:41] LABS: INR 1.2 (<1.2)
[2024-05-04 06:43] LABS: Anisocytosis Marked; Basophils % (A) 0 %; Eosinophils # (A) 0.3 k/uL (0-0.7); Eosinophils % (A) 4 %; HCT 30.4 % (39.0-53.0); HGB 8.7 gm/dL (13.0-17.5); Hypochromasia Marked; Lymphocytes # (A) 0.7 k/uL (1.0-4.8); Lymphocytes % (A) 13 %; MCH 31.6 pg (25.0-35.0); MCHC 28.8 g/dL (31.0-37.0); MCV 109.7 fL (80.0-100.0); Macrocytosis Marked; Mean Platelet Volume 9.3; Monocytes # (A) 0.7 k/uL (0-1.0); Monocytes % (A) 11 %; Neutrophils # (A) 4.1 k/uL (1.3-7.7); Neutrophils % (A) 69 %; Platelet Count 271 k/uL (150-450); Poikilocytosis Moderate; RBC 2.77 m/uL (4.30-5.90); RDW 24.3 % (11.5-15.5); WBC 5.9 k/uL (3.8-10.6)
[2024-05-04 06:46] LABS: ALT 57 U/L (4-49); AST 34 U/L (17-59); African American GFR (CKD) 42 (>60 ml/min/1.73 sqM); Albumin 2.7 g/dL (3.5-5.0); Alkaline Phosphatase 66 U/L (38-126); Anion Gap 5 mmol/L; Blood Urea Nitrogen 37 mg/dL (9-20); Calcium 7.5 mg/dL (8.4-10.2); Carbon Dioxide 26 mmol/L (22-30); Chloride 108 mmol/L (98-107); Glucose 141 mg/dL (74-99); Magnesium 2.1 mg/dL (1.6-2.3); Non-African American GFR(CKD) 36 (>60 ml/min/1.73 sqM); Phosphorus 3.5 mg/dL (2.5-4.5); Potassium 4.5 mmol/L (3.5-5.1); Sodium 139 mmol/L (137-145); Total Bilirubin 0.8 mg/dL (0.2-1.3); Total Protein 5.4 g/dL (6.3-8.2)
[2024-05-04] MEDS ORDERED: ePHEDrine 50 MG/ML 1 ML VIAL ONE (07:55)
[2024-05-04] MEDS ORDERED: SUCCINYLCHOLINE CHLORIDE 200 MG/10 ML VIAL IV ONE (07:55)
[2024-05-04] MEDS ORDERED: EPINEPHrine 10 ML SYRINGE (0.1 MG/ML) ONE (07:55)
[2024-05-04] MEDS ORDERED: ROCURONIUM 10 MG/ML (5 ML VIAL) IV ONE (07:55)
[2024-05-04] MEDS ORDERED: PROPOFOL 10 MG/ML 20 ML VIAL IV ONE (07:55)
--- NOTE | 2024-05-04 08:00 | P.PN ---
Subjective Progress Note Date: 05/03/24 Principal diagnosis: Reason for follow-up is right foot wound and cellulitis Patient is a 63-year-old male with a past medical history significant for diabetes mellitus hypertension hyperlipidemia pneumonia CVA TIA COPD patient did have a right big toe amputation done by and was recently admitted to the hospital concerning for pain to the right foot and cold feeling patient has been diagnosed with PAD and is s/p peripheral intervention by interventional cardiology with angioplasty of SFA and right popliteal arteries however unsuccessful angioplasty of the right anterior tibial artery patient presented to hospital with weakness hypoxemia. Patient apparently has pulled out his PEG tube and also developed A-fib with RVR for the patient was transferred to telemetry floor on 04/30/2024 On today's evaluation that is 05/03/2024,the patient remains to be afebrile, patient is on 2 L nasal cannula supplemental oxygen and denies any shortness of breath no chest pain or cough.Patient denies having any nausea or vomiting, no abdominal pain and no diarrhea has been reported. Patient white count 7.0 creatinine is 2.04 Objective - Vital Signs Vital signs: Vital Signs Temp 97.3 F L 05/03/24 15:20 Pulse 116 H 05/03/24 15:20 Resp 18 05/03/24 15:20 BP 126/77 05/03/24 15:20 Pulse Ox 94 L 05/03/24 15:20 FiO2 Intake & Output 05/02/24 05/03/24 05/03/24 18:59 06:59 18:59 Intake Total 10 130.75 20 Output Total 350 Balance -340 130.75 20 Weight 106.9 kg Intake: IV 10 10 20 Invasive Line 5 10 10 10 Invasive Line 7 10 Intake, IV Titration 120.75 Amount Diltiazem 125 mg In 120.75 Sodium Chloride 0.9% 100 ml @ 5 MG/HR 5 mls/hr IV .Q24H [facility] Rx#:[id number] Output: Urine 350 Other: Voiding Method Urinal Urinal Urinal - Exam GENERAL DESCRIPTION: Middle-age male lying in bed in no distress RESPIRATORY SYSTEM: Unlabored breathing , decreased breath sounds at bases HEART: S1 S2 regular rate and rhythm , ABDOMEN: Soft , no tenderness EXTREMITIES: Right foot wound wound is currently dressed - Labs CBC & Chem 7: 05/04/24 06:11 05/04/24 06:11 Labs: Abnormal Lab Results - Last 24 Hours (Table) 05/03/24 05/03/24 05/03/24 Range/Units 00:02 05:21 05:21 RBC 2.61 L (4.30-5.90) m/uL Hgb 8.3 L (13.0-17.5) gm/dL Hct 28.7 L (39.0-53.0) % MCV 110.0 H (80.0-100.0) fL MCHC 29.0 L (31.0-37.0) g/dL RDW 25.2 H (11.5-15.5) % Lymphocytes # 0.8 L (1.0-4.8) k/uL Macrocytosis Marked A Chloride 108 H (98-107) mmol/L BUN 37 H (9-20) mg/dL Creatinine 2.04 H (0.66-1.25) mg/dL Glucose 154 H (74-99) mg/dL POC Glucose (mg/dL) 179 H (70-110) mg/dL Calcium 7.4 L (8.4-10.2) mg/dL ALT 67 H (4-49) U/L Total Protein 5.2 L (6.3-8.2) g/dL Albumin 2.6 L (3.5-5.0) g/dL 05/03/24 05/03/24 05/03/24 Range/Units 06:01 11:44 16:54 RBC (4.30-5.90) m/uL Hgb (13.0-17.5) gm/dL Hct (39.0-53.0) % MCV (80.0-100.0) fL MCHC (31.0-37.0) g/dL RDW (11.5-15.5) % Lymphocytes # (1.0-4.8) k/uL Macrocytosis Chloride (98-107) mmol/L BUN (9-20) mg/dL Creatinine (0.66-1.25) mg/dL Glucose (74-99) mg/dL POC Glucose (mg/dL) 180 H 200 H 159 H (70-110) mg/dL Calcium (8.4-10.2) mg/dL ALT (4-49) U/L Total Protein (6.3-8.2) g/dL Albumin (3.5-5.0) g/dL Assessment and Plan (1) Cellulitis of right foot Current Visit: No Status: Acute Code(s): L03.115 - CELLULITIS OF RIGHT LOWER LIMB SNOMED Code(s): 42386285679355888 (2) Diabetic foot ulcer Current Visit: No Status: Acute Code(s): E11.621 - TYPE 2 DIABETES MELLITUS WITH FOOT ULCER; L97.509 - NON-PRESSURE CHRONIC ULCER OTH PRT UNSP FOOT W UNSP SEVERITY SNOMED Code(s): 775703257 Plan: 1patient presenting to the hospital mostly with generalized weakness low O2 sats possibly underlying cardiac etiology for the patient being managed by cardiology, patient also have a 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 2patient is afebrile white count has been normal, 3-patient is currently waiting for a PEG tube placement to continue with Unasyn along with a local wound care and transition to oral Augmentin once he get his PEG tube and tolerating his tube feed Dictation was produced using [employer] dictation software. please excuse any grammatical, word or spelling errors. Time with Patient: Less than 30
[2024-05-04] MEDS: SODIUM CHLORIDE 0.9% 500 ML 500 ML IV ONE (08:02)
--- NOTE | 2024-05-04 08:18 | P.EN ---
Patient brought from [facility] to endoscopy unit to undergo upper endoscopy with PEG tube placement. Patient had mild sedation and immediately went into cardiopulmonary arrest. Anesthesia staff immediately called stat. I immediately started chest compressions. Patient received rounds of epinephrine. He was intubated. Due to patient's acute event, no future upper endoscopy with gastrostomy tube placement anticipated. Patient to be sent immediately to intensive care unit.
--- NOTE | 2024-05-04 08:21 | P.PN ---
Progress Note - Text Progress Note Date: 05/04/24 Patient's spouse Cherri immediately contacted regarding recent cardiopulmonary arrest with CPR performed. Patient is being transferred to intensive care unit. Patient's spouse notified that he will be sent to the ICU on ventilatory support room [id number]
[2024-05-04] MEDS ORDERED: IPRATROPIUM-ALBUTEROL 3 ML NEB INHALATION PRN (08:58)
[2024-05-04 09:00] LABS: Glucose,Whole Blood 216 mg/dL (70-110)
[2024-05-04] MEDS ORDERED: FAMOTIDINE 20 MG/2 ML VIAL IV SCH (09:00)
[2024-05-04] MEDS: FUROSEMIDE 10 MG/ML 4 ML VIAL IV STA (09:49)
[2024-05-04] MEDS: FUROSEMIDE 10 MG/ML 4 ML VIAL ONE (09:49)
--- NOTE | 2024-05-04 09:52 | XR ---
EXAMINATION TYPE: XR chest 1V portable DATE OF EXAM: 05/04/2024 9:39 AM CLINICAL INDICATION:Male, 63 years old with history of Tube placement; COMPARISON: Chest radiographs from 05/01/2024 TECHNIQUE: XR chest 1V portable Frontal view of the chest. FINDINGS: Lungs/Pleura: There is no evidence of pleural effusion, focal consolidation, or pneumothorax. Pulmonary vascularity: Unremarkable. Heart/mediastinum: Cardiomediastinal silhouette is unremarkable. Musculoskeletal: No acute osseous pathology. Other findings: None Lines/Tubes: Endotracheal tube with distal tip 4.0 cm above the terese. Nasogastric tube with its distal tip and side-port projecting under the diaphragm. Right-sided PICC line with distal tip at the cavoatrial junction. IMPRESSION: Stable support tubes and line with right pleural effusion and atelectasis.
[2024-05-04 09:54] LABS: ABG Base Excess -1.3 mmol/L; ABG HCO3 26 mmol/L (21-25); ABG Oxygen Saturation 90.2 % (94-97); ABG PCO2 58 mmHg (35-45); ABG PH 7.26 (7.35-7.45); ABG PO2 63 mmHg (83-108); ABG TCO2 28 mmol/L (19-24); Allen Test Performed? Yes
[2024-05-04] MEDS: propofoL 100 ML IV ONE (09:59)
[2024-05-04] MEDS: NOREPINEPHRINE 4 MG in SODIUM CHLORIDE 0.9% 250 ML IV SCH (10:53)
[2024-05-04] MEDS: CHLORHEXIDINE GLUCONATE 15 ML CUP MUCOUS MEM SCH (11:03)
[2024-05-04] MEDS: FAMOTIDINE 20 MG/2 ML VIAL IV SCH (11:05)
[2024-05-04] MEDS: LACTATED RINGERS 1,000 ML IV SCH (11:22)
[2024-05-04 11:39] LABS: Glucose,Whole Blood 270 mg/dL (70-110)
--- NOTE | 2024-05-04 13:27 | P.PN ---
Subjective Progress Note Date: 05/04/24 Principal diagnosis: Acute exacerbation of systolic congestive heart failure and acute cellulitis of right foot This is a 63-year-old white male with history of multiple medical problems including coronary artery disease, chronic atrial fibrillation, peripheral vessel occlusive disease, severe pulmonary hypertension, chronic obstructive pulmonary disease, patient normally sees Dr. Dillard on outpatient basis. Patient was never seen by a life sciences teacher. Admitted this time with few days history of increased shortness of breath, and according to the his O2 saturation was down in the 60s. Patient was brought into the ER, chest x-ray showed evidence of pulmonary edema, VQ scan negative for pulmonary embolism, patient was admitted and this consult was initiated. Patient is not a great historian, most of the information was obtained from his , apparently the patient had history of CVA in the past, and he had a previous PEG tube placement Labs on admission showed relatively normal CBC, no leukocytosis, D-dimer was a bit elevated at 2.10 and renal profile was abnormal with BUN of 43 and creatinine 2.01 however BNP level was 12,300 and troponin was 0.043. Since admission, the patient received 1 dose of Lasix, and he is at least 1.5 L negative fluid balance The patient is seen today April 14, 2024 in follow-up on the selective care unit. He is currently sitting up at the bedside. Awake and alert in no acute distress. Breathing a bit easier today compared to yesterday. Currently maintaining good O2 saturations in the upper 90s on 3 L/min per nasal cannula. He is afebrile. Hemodynamically stable. Echocardiogram reveals impaired left ventricular systolic function with an ejection fraction of 35 to 40%. Severe pulmonary hypertension. Moderate to severely dilated left atrium. Right first toe culture is pending. Currently on Unasyn. Glucose 125. Being nourished with Glucerna at 51 MLS per hour via his PEG tube. Anticoagulated with Eliquis. Remains on diuretics. Making adequate urine. The patient is seen today April 15, 2024 in follow-up on the selective care unit. He is awake and alert in no acute distress. Maintaining O2 saturations in the 90s on 3 L/min per nasal cannula. Hemodynamically stable. White count 8.4. Hemoglobin 11.2. Platelets 321. Sodium 143. Potassium 4.9. Bicarb 29. BUN 45. Creatinine 1.99. Glucose 126. He is continued on Unasyn. Anticoagulated with Eliquis. Remains on bronchodilators. Remains on oral diuretics. Continued on Glucerna via his PEG tube. Barium swallow is pending so the patient can continue on tube feedings in the outpatient setting Patient was evaluated today on 04/16/2024, patient is doing well, comfortable, not in any distress, on 3 L nasal cannula with O2 sats of 96%. WBC is 8.5 hemoglobin 10.5 electrolytes are relatively normal with potassium of 5.2 BUN is 48 creatinine 1.94, steadily improving since admission patient had a successful swallow evaluation study that came back unremarkable. Progress note dated May 02, 2024. 63-year-old male who is now been in the hospital for about 3 weeks. Currently, he is on 2 L of oxygen by nasal cannula, getting saline at 75 cc an hour, Cardizem at 5 mg an hour, and TPN at 30 MLS per hour. He is sitting at the side of his bed. No respiratory distress or difficulty. The plan is to replace his PEG tube on Saturday. He apparently accidentally pulled it out. Current labs include sodium 141, potassium 4.9, chlorides 110, CO2 26, anion gap 5, BUN 35, creatinine 1.92. Glucose is 149. Albumin is 2.6. Calcium is 7.6. Chest x-ray from yesterday is consistent with cardiomegaly. Progress note dated May 03, 2024. 63-year-old male seen today in room 353. Currently, the patient is on nasal O2 at 2 L. He is not receiving any IV fluids. The patient continues on IV Unasyn. The patient is supposed to have a reinsertion of the PEG tube, that he accidentally pulled out, tomorrow, May 05. The patient has no specific complaints today. Current labs include a white count 6.4, hemoglobin 8.3, hematocrit 28.7, platelet count 274,000. Sodium 139, potassium 4.6, chlorides 108, CO2 28, BUN 37, creatinine 2.04. Glucose is 180. Albumin is 2.6. Patient was given today on 05/04/2024, patient was in the endoscopy suite to undergo PEG tube placement, apparently patient received mild sedation, and he went on to develop cardiopulmonary arrest. Patient had chest compression, received epinephrine, intubated in the meantime, and was sent back to ICU intubated and make ventilated. Patient is on assist-control rate of 16 tidal volume 500 FiO2 50%, PEEP of 8 ABG showed a pO2 of 62 pCO2 58 pH of 7.26. Hence his rate was increased to 20. And FiO2 was changed from 100% initially to 50%. Patient was not hypotensive requiring norepinephrine, however as soon as a left radial arterial line was placed, noted that her blood pressure was actually elevated, norepinephrine was discontinued. Patient is on amiodarone at 0.5 mg/min, he is receiving TPN, patient is on heparin drip, and his propofol dose is 10 mcg/kg/min. WBC count of 5.9 hemoglobin 8.7 INR is 1.2 chest x-ray postintubation showed evidence of congestive heart failure/interstitial edema and small right-sided pleural effusion patient will receive Lasix. Objective - Vital Signs Vital signs: Vital Signs Temp 97.7 F 05/03/24 20:28 Pulse 119 H 05/04/24 03:12 Resp 18 05/04/24 03:12 BP 117/74 05/04/24 03:12 Pulse Ox 94 L 05/04/24 03:12 FiO2 50 05/04/24 11:15 Intake & Output 05/03/24 05/04/24 05/04/24 18:59 06:59 18:59 Intake Total 1054 1326.423 17.059 Balance 1054 1326.423 17.059 Weight 109 kg 109 kg Intake: IV 20 20 Invasive Line 5 10 10 Invasive Line 7 10 10 Intake, IV Titration 1034 1306.423 17.059 Amount Amiodarone 450 mg In 232.782 Dextrose 5% in Water 250 ml @ 0.5 MG/MIN 16.667 mls/hr IV .Q15H [facility] Rx#: [id number] Heparin Sod,Pork in 0.45% 50.641 0 NaCl 25,000 unit In 0.45 % NaCl 1 250ml.bag @ 9.35 UNITS/KG/HR 9.995 mls/hr IV .Q24H [facility] Rx#: [id number] Mvi, Adult No.4 with Vit 1034 K 10 ml Trace (Conc-1Ml/ Dose) 1 ml Sodium Acetate 18 meq Calcium Gluconate 1 gm Magnesium Sulfate gm 0.5 gm Sodium Phosphate 9 mmol In Amino Acids 5 %/Dextrose 20 % 1,000 ml @ 75 mls/hr IV . BY DURATION [facility] Rx#: [id number] Sodium Acetate 18 meq 1023 Calcium Gluconate 1 gm Magnesium Sulfate gm 0.5 gm Sodium Phosphate 9 mmol In Amino Acids 5 %/ Dextrose 20 % 1,000 ml @ 75 mls/hr IV .BY DURATION [facility] Rx#:[id number] propofoL 1,000 mg In 17.059 Empty Bag 1 bag @ 15 MCG/ KG/MIN 9.81 mls/hr IV . [id number] [facility] Rx#:[id number] Other: Voiding Method Urinal Urinal - Exam GENERAL EXAM: Reveals 63-year-old white male intubated mechanically ventilated sedated HEAD: Normocephalic. EYES: Normal reaction of pupils, equal size. NOSE: Clear with pink turbinates. THROAT: No erythema or exudates. Endotracheal tube and orogastric tube are intact. NECK: No masses, no JVD. CHEST: No chest wall deformity. LUNGS: Crackles at the bases no rhonchi no wheezes CVS: Regular rate and rhythm S1 and S2 normal with no audible murmur ABDOMEN: Soft nontender no megaly no rebound SKIN: No cyanosis CENTRAL NERVOUS SYSTEM: Could not assess patient is sedated and mechanically ventilated EXTREMITIES: Right foot wrapped with sterile dressing - Labs CBC & Chem 7: 05/04/24 06:11 05/04/24 06:11 Labs: Abnormal Lab Results - Last 24 Hours (Table) 05/03/24 05/03/24 05/03/24 Range/Units 16:54 19:13 19:13 RBC 2.85 L (4.30-5.90) m/uL Hgb 9.0 L (13.0-17.5) gm/dL Hct 31.5 L (39.0-53.0) % MCV 110.3 H (80.0-100.0) fL MCHC 28.7 L (31.0-37.0) g/dL RDW 24.3 H (11.5-15.5) % Lymphocytes # 0.8 L (1.0-4.8) k/uL Macrocytosis Marked A PT 13.0 H (10.0-12.5) sec INR 1.2 H (<1.2) ABG pH (7.35-7.45) ABG pCO2 (35-45) mmHg ABG pO2 (83-108) mmHg ABG HCO3 (21-25) mmol/L ABG Total CO2 (19-24) mmol/L ABG O2 Saturation (94-97) % Chloride (98-107) mmol/L BUN (9-20) mg/dL Creatinine (0.66-1.25) mg/dL Glucose (74-99) mg/dL POC Glucose (mg/dL) 159 H (70-110) mg/dL Calcium (8.4-10.2) mg/dL ALT (4-49) U/L Total Protein (6.3-8.2) g/dL Albumin (3.5-5.0) g/dL 05/03/24 05/03/24 05/04/24 Range/Units 20:06 23:57 05:49 RBC (4.30-5.90) m/uL Hgb (13.0-17.5) gm/dL Hct (39.0-53.0) % MCV (80.0-100.0) fL MCHC (31.0-37.0) g/dL RDW (11.5-15.5) % Lymphocytes # (1.0-4.8) k/uL Macrocytosis PT (10.0-12.5) sec INR (<1.2) ABG pH (7.35-7.45) ABG pCO2 (35-45) mmHg ABG pO2 (83-108) mmHg ABG HCO3 (21-25) mmol/L ABG Total CO2 (19-24) mmol/L ABG O2 Saturation (94-97) % Chloride (98-107) mmol/L BUN (9-20) mg/dL Creatinine (0.66-1.25) mg/dL Glucose (74-99) mg/dL POC Glucose (mg/dL) 130 H 166 H 170 H (70-110) mg/dL Calcium (8.4-10.2) mg/dL ALT (4-49) U/L Total Protein (6.3-8.2) g/dL Albumin (3.5-5.0) g/dL 05/04/24 05/04/24 05/04/24 Range/Units 06:11 06:11 06:11 RBC 2.77 L (4.30-5.90) m/uL Hgb 8.7 L (13.0-17.5) gm/dL Hct 30.4 L (39.0-53.0) % MCV 109.7 H (80.0-100.0) fL MCHC 28.8 L (31.0-37.0) g/dL RDW 24.3 H (11.5-15.5) % Lymphocytes # 0.7 L (1.0-4.8) k/uL Macrocytosis Marked A PT 13.0 H (10.0-12.5) sec INR 1.2 H (<1.2) ABG pH (7.35-7.45) ABG pCO2 (35-45) mmHg ABG pO2 (83-108) mmHg ABG HCO3 (21-25) mmol/L ABG Total CO2 (19-24) mmol/L ABG O2 Saturation (94-97) % Chloride 108 H (98-107) mmol/L BUN 37 H (9-20) mg/dL Creatinine 1.94 H (0.66-1.25) mg/dL Glucose 141 H (74-99) mg/dL POC Glucose (mg/dL) (70-110) mg/dL Calcium 7.5 L (8.4-10.2) mg/dL ALT 57 H (4-49) U/L Total Protein 5.4 L (6.3-8.2) g/dL Albumin 2.7 L (3.5-5.0) g/dL 05/04/24 05/04/24 05/04/24 Range/Units 08:58 09:52 11:38 RBC (4.30-5.90) m/uL Hgb (13.0-17.5) gm/dL Hct (39.0-53.0) % MCV (80.0-100.0) fL MCHC (31.0-37.0) g/dL RDW (11.5-15.5) % Lymphocytes # (1.0-4.8) k/uL Macrocytosis PT (10.0-12.5) sec INR (<1.2) ABG pH 7.26 L (7.35-7.45) ABG pCO2 58 H (35-45) mmHg ABG pO2 63 L (83-108) mmHg ABG HCO3 26 H (21-25) mmol/L ABG Total CO2 28 H (19-24) mmol/L ABG O2 Saturation 90.2 L (94-97) % Chloride (98-107) mmol/L BUN (9-20) mg/dL Creatinine (0.66-1.25) mg/dL Glucose (74-99) mg/dL POC Glucose (mg/dL) 216 H 270 H (70-110) mg/dL Calcium (8.4-10.2) mg/dL ALT (4-49) U/L Total Protein (6.3-8.2) g/dL Albumin (3.5-5.0) g/dL Assessment and Plan Assessment: Impression: Cardiac arrest requiring intubation mechanical ventilation 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 Acute on chronic stage IV kidney disease Acute blood loss anemia requiring 5 units of blood transfusion Electrolytes imbalance secondary to acute on chronic kidney disease Peripheral vessel occlusive disease and previous stenting of right SFA and right popliteal artery Severe pulmonary hypertension Paroxysmal atrial fibrillation, on anticoagulation therapy History of CVA with residual dysphagia requiring PEG tube placement Type 2 diabetes Cellulitis of right foot/diabetic foot ulcer Recommendation: Continue ventilatory support, vent settings were addressed accordingly Continue antibiotics as per infectious disease on the case Continue amiodarone as per cardiology on the case Continue nutritional support/TPN at 73 cc/h Hold on PEG tube placement for now since the patient had a cardiac arrest in endoscopy suite Continue heparin/anticoagulation for atrial fibrillation and DVT prophylaxis Continue GI prophylaxis Continue to monitor renal status closely Hemodynamic support if felt necessary/norepinephrine Will continue to follow. While in the ICU Patient is critically ill, Critical care is over 30 minutes, not including the time spent on procedures/arterial line placed Time with Patient: Greater than 30
[2024-05-04] MEDS: IPRATROPIUM-ALBUTEROL 3 ML NEB INHALATION SCH (13:34)
[2024-05-04] MEDS: HEPARIN SODIUM 1,000 UN/ML (10ML VL) IV PRN (14:13)
--- NOTE | 2024-05-04 15:10 | P.PN ---
Subjective Progress Note Date: 05/04/24 Everett Juárez, is a 63-year-old male who presented to [facility] emergency room with a chief complaint of worsening shortness of breath and generalized weakness, patient was recently admitted to [facility] with peripheral vascular disease right foot osteomyelitis and underwent stenting of the right SFA by Dr. Dillard, he has a previous history of right great toe amputation. He was evaluated in the emergency room vital examination on presentation revealed a temperature of 98.9 pulse 110 respiration 18 blood pressure 114/72 pulse ox 96% on room air Laboratory data reveals a white blood count of 8.7 hemoglobin 11.4 platelet count 283 sodium 139 potassium 4.9 chloride 110 CO2 23 BUN 41 creatinine 2.01 D- dimer was elevated at 2.10, troponin level was elevated at 0.043 Testing in the emergency room revealed chest x-ray done in the emergency room revealed cardiomegaly and mild pulmonary vascular congestion suggestive of congestive heart failure, VQ scan showed no evidence for pulmonary embolism, EKG revealed atrial fibrillation with moderate T wave abnormalities suggestive of lateral ischemia. Patient was admitted to medical floor for further evaluation and treatment Past medical history is significant for history of atrial fibrillation, history of peripheral arterial disease with previous history of right great toe amputation, history of COPD, history of diabetes mellitus type 2, history of hyperkalemia, history of chronic kidney disease. On review of systems patient is alert and oriented x 3 in no apparent distress, he is complaining of generalized weakness, complaining of shortness of breath, which is worse with activity, and complaining of right foot pain, otherwise he denies any complaints, there is no fever or chills no headache or dizziness no chest pain, no cough no nausea or vomiting no abdominal pain no diarrhea and no urinary symptoms On 04/14/2024 patient is alert and oriented 3.Patient remains on IV Unasyn and IV Lasix. 2-D echo completed showing an EF of 35-40%. Current vital signs temp 98.3, heart 81, respiratory rate 18, blood pressure 135/67 with a pulse ox of 100% on 3 L. Patient reports improvement with shortness of breath. Patient denies nausea vomiting or diarrhea. Patient denies any urinary burning or frequency On 04/15/2024 Patient is alert and oriented 3. Patient remains on IV Unasyn. Patient has been transitioned to by mouth Lasix.Current vital signs temp 97.1, heart rate 98, respiratory rate 18, blood pressure 121/79 with pulse ox 96% on 3 L. Patient denies chest pain or shortness breath. Patient denies nausea vomiting or diarrhea. Patient denies any urinary burning or frequency. On 04/16/2024 he is alert and oriented x 3 in no apparent distress he reports improvement in his shortness of breath there is no fever or chills no headache or dizziness no chest pain no cough no nausea or vomiting no abdominal pain no diarrhea and no urinary symptoms. On 04/17/2024 patient is alert and oriented x 3. Current vital signs Temp 98.1, heart rate 100, respiratory rate 16, blood pressure 153/81 with a pulse ox of 97% on 2 L. Patient remains on IV Unasyn. Awaiting final antibiotic recommenda tions per ID. Patient denies chest pain or shortness of breath. Patient denies nausea vomiting or diarrhea. Patient denies any urinary burning or frequency. On 04/18/2024 patient was seen and examined on the medical floor he is alert and oriented x 3 in no apparent distress there is no fever or chills no headache or dizziness no chest pain no shortness of breath no cough no nausea or vomiting no abdominal pain no diarrhea no urinary symptoms, he is still maintained on oxygen supplements, patient need to be assessed for need for home oxygen, he is also maintained on tube feeding, casework manager is working on arrangement for tube feeding at home. Otherwise continue with current management will recheck in a.m.. On 04/19/2024 patient is alert and oriented x 3. Patient is maintained on 3 L n roberth cannula. Patient also maintained on IV Unasyn. Awaiting final IV recommendations from infectious disease. Current vital signs Temp 98.2, heart rate 82, blood pressure 116/70 with a pulse ox of 97% on 3 L patient denies chest pain or shortness of breath. Patient denies nausea vomiting or diarrhea. Patient denies any urinary burning or frequency On 04/20/2024 patient was seen and examined on the medical floor he is alert and oriented x 3 in no apparent distress, there is no fever or chills no headache or dizziness no chest pain no shortness of breath no cough no nausea or vomiting no abdominal pain no diarrhea no urinary symptoms, patient is still having difficulty with hyperkalemia, he is maintained on IV fluids and [facility] nephrology are following, will recheck labs in a.m. On 04/21/2024 patient is alert and oriented x 3. Potassium remains elevated at 5.9 awaiting further recommendations from nephrology standpoint. Patient denies chest pain or shortness of breath. Patient denies nausea vomiting or diarrhea. Patient denies any urinary burning or frequency On 04/22/2024 patient is alert and oriented x 3. Patient received 1 unit PRBCs for hemoglobin of 6.8 yesterday. GI services were consulted stool for occult blood ordered. Nephrology service is following for elevated potassium level. At this time patient denies chest pain or shortness of breath. Patient denies nausea vomiting or diarrhea. Patient denies any urinary burning frequency. On 04/23/2024 patient was seen and examined on the medical floor he is alert and oriented x 3 in no apparent distress, his hemoglobin today is again 6.01 unit of red blood cell transfusion was ordered, he was reevaluated by gastroenterology and plans are for EGD and colonoscopy tomorrow, otherwise he denies any complaints there is no fever or chills no headache or dizziness no chest pain no shortness of breath no cough no nausea or vomiting no abdominal pain no diarrhea no urinary symptoms On 04/24/2024 patient is alert and oriented 3. Plans for EGD and colonoscopy today with GI services.Patient had episodes of hypotension throughout night received IV bolus. Continue to transfuse patient for hemoglobin less than 7. Patient remains on IV Unasyn. This time patient denies chest pain or shortness breath. Patient denies nausea vomiting or diarrhea. Patient denies any urinary burning or frequency. On 04/25/2024 patient was seen and examined on the medical floor he is alert and oriented x 3 in no apparent distress there is no fever or chills no headache or dizziness no chest pain no shortness of breath no cough no nausea or vomiting no abdominal pain no diarrhea no urinary symptoms, hemoglobin is down again to 6.7 patient will be given 1 unit of red blood cell transfusion, EGD and colonoscopy results done yesterday were reviewed, at this time will consult Dr. Jackson regarding recurrent pneumonia requiring multiple red blood cell transfusion, continue with tube feeding at this time. On 04/26/2024 patient is alert and oriented x 3. Hemoglobin today 8.0. Awaiting oncology input. Patient denies chest pain or shortness of breath. Patient denies nausea vomiting or diarrhea. Patient denies any urinary burning or frequency. Current vital signs Temp 97.7, heart rate 91, respiratory rate 16, blood pressure 118/60 with pulse ox of 98% on 4 L On 04/27/2024 patient was seen and examined on the medical floor he is alert and oriented x 3 in no apparent distress he is complaining of generalized weakness otherwise he denies any specific complaints there is no fever or chills no headache or dizziness no chest pain no shortness of breath no cough no nausea or vomiting no abdominal pain no diarrhea no urinary symptoms. On 04/28/2024 patient was seen and examined on the medical floor he is alert and oriented x 3 in no apparent distress there is no fever or chills no headache or dizziness no chest pain no shortness of breath no cough no nausea or vomiting no abdominal pain no diarrhea and no urinary symptoms, hemoglobin is stabilizing around 8 will continue to monitor On 04/29/2024 patient is alert and oriented 3.heart rate elevated at 121 this AM. Patient being followed by cardiology services was given by mouth amiodarone awaiting further recommendations from cardiology services. Hemoglobin remained stable at 8.1. Patient denies chest pain or shortness of breath. Patient denies nausea vomiting or diarrhea. Patient denies any urinary burning or frequency On 04/30/2024 patient is alert resting comfortably in bed. Patient pulled out PEG tube yesterday. Patient unable to take pills by mouth. Surgical service is consulted for new PEG tube placement unable to do until Saturday due to patient being on Plavix Plavix currently on hold. Heart rate remains elevated Lopressor IV push has been ordered. Current vital signs temp 97.7, heart rate 127, blood pressure 118/72 with pulse ox 96% on 3 L. Patient denies chest pain or shortness of breath. Patient denies nausea vomiting or diarrhea. Patient denies any urinary burning or frequency on 05/01/2024 patient is resting comfortably in bed. Awaiting PEG tube placement on Saturday.current vital signs temp 98.1, heart rate 107, respiratory rate 18, blood pressure 115/73 with pulse ox 91% on 3 L. Patient denies chest pain or shortness of breath. Patient denies nausea vomiting or diarrhea On 05/02/2024 patient was seen and examined on the medical floor he is alert responsive in no apparent distress, there is no fever or chills no headache or dizziness no chest pain no shortness of breath no cough no nausea or vomiting no abdominal pain no diarrhea and no urinary symptoms, at this time we are awaiting replacement of his PEG tube, Plavix was held in that regard, PICC line was inserted and patient was started on TPN , continue current medications otherwise On 05/03/2024 patient is alert and oriented x 3 currently sitting up in bed. Per nursing staff patient is being switched to IV amiodarone for heart rate control. Patient was also started on TPN through PICC line. Patient to get PEG tube placement tomorrow and hopefully can restart back on p.o. medications for heart rate control. Patient denies chest pain or shortness of breath. Patient denies nausea vomiting or diarrhea. Patient denies any urinary burning or frequency. On 05/04/2024 patient was seen and examined in the ICU, he is currently intubated sedated maintained on mechanical ventilation, earlier this morning patient had cardiac arrest which required resuscitation and intubation and transfer to ICU, currently his vital examination reveals a temperature of 97.8 pulse 85 respiration 20 blood pressure 113/48 pulse ox 96% on mechanical ventilation FiO2 50% white blood count today 5.9 hemoglobin 8.7 platelet count 271 INR 1.2 arterial blood gas pH 7.26 P CO2 58 pO2 63 Objective - Vital Signs Vital signs: Vital Signs Temp 97.7 F 05/03/24 20:28 Pulse 119 H 05/04/24 03:12 Resp 18 05/04/24 03:12 BP 117/74 05/04/24 03:12 Pulse Ox 94 L 05/04/24 03:12 FiO2 50 05/04/24 11:15 Intake & Output 05/03/24 05/04/24 05/04/24 18:59 06:59 18:59 Intake Total 1054 1326.423 17.059 Balance 1054 1326.423 17.059 Weight 109 kg 109 kg Intake: IV 20 20 Invasive Line 5 10 10 Invasive Line 7 10 10 Intake, IV Titration 1034 1306.423 17.059 Amount Amiodarone 450 mg In 232.782 Dextrose 5% in Water 250 ml @ 0.5 MG/MIN 16.667 mls/hr IV .Q15H [facility] Rx#: [id number] Heparin Sod,Pork in 0.45% 50.641 0 NaCl 25,000 unit In 0.45 % NaCl 1 250ml.bag @ 9.35 UNITS/KG/HR 9.995 mls/hr IV .Q24H [facility] Rx#: [id number] Mvi, Adult No.4 with Vit 1034 K 10 ml Trace (Conc-1Ml/ Dose) 1 ml Sodium Acetate 18 meq Calcium Gluconate 1 gm Magnesium Sulfate gm 0.5 gm Sodium Phosphate 9 mmol In Amino Acids 5 %/Dextrose 20 % 1,000 ml @ 75 mls/hr IV . BY DURATION [facility] Rx#: [id number] Sodium Acetate 18 meq 1023 Calcium Gluconate 1 gm Magnesium Sulfate gm 0.5 gm Sodium Phosphate 9 mmol In Amino Acids 5 %/ Dextrose 20 % 1,000 ml @ 75 mls/hr IV .BY DURATION [facility] Rx#:[id number] propofoL 1,000 mg In 17.059 Empty Bag 1 bag @ 15 MCG/ KG/MIN 9.81 mls/hr IV . [id number] [facility] Rx#:[id number] Other: Voiding Method Urinal Urinal - Exam In general patient is alert and oriented x 3 in no distress HEENT head normocephalic and atraumatic Neck is supple no JVD no goiter no lymphadenopathy no carotid bruit Chest examination reveals a scattered crackles in both lung lay[place] no wheezing Cardiac exam reveals irregular heart sounds S1 and S2 no gallops no murmurs Abdomen is soft nontender no organomegaly with normal bowel sounds Extremity exam reveals no edema no cyanosis or clubbing, the right great toe is amputated with a large ulcer at the base of the amputated right great toe with purulent discharge Neurological examination reveals no gross focal deficits - Labs CBC & Chem 7: 05/04/24 06:11 05/04/24 13:17 Labs: Abnormal Lab Results - Last 24 Hours (Table) 05/03/24 05/03/24 05/03/24 Range/Units 16:54 19:13 19:13 RBC 2.85 L (4.30-5.90) m/uL Hgb 9.0 L (13.0-17.5) gm/dL Hct 31.5 L (39.0-53.0) % MCV 110.3 H (80.0-100.0) fL MCHC 28.7 L (31.0-37.0) g/dL RDW 24.3 H (11.5-15.5) % Lymphocytes # 0.8 L (1.0-4.8) k/uL Macrocytosis Marked A PT 13.0 H (10.0-12.5) sec INR 1.2 H (<1.2) ABG pH (7.35-7.45) ABG pCO2 (35-45) mmHg ABG pO2 (83-108) mmHg ABG HCO3 (21-25) mmol/L ABG Total CO2 (19-24) mmol/L ABG O2 Saturation (94-97) % Chloride (98-107) mmol/L BUN (9-20) mg/dL Creatinine (0.66-1.25) mg/dL Glucose (74-99) mg/dL POC Glucose (mg/dL) 159 H (70-110) mg/dL Calcium (8.4-10.2) mg/dL ALT (4-49) U/L Total Protein (6.3-8.2) g/dL Albumin (3.5-5.0) g/dL 05/03/24 05/03/24 05/04/24 Range/Units 20:06 23:57 05:49 RBC (4.30-5.90) m/uL Hgb (13.0-17.5) gm/dL Hct (39.0-53.0) % MCV (80.0-100.0) fL MCHC (31.0-37.0) g/dL RDW (11.5-15.5) % Lymphocytes # (1.0-4.8) k/uL Macrocytosis PT (10.0-12.5) sec INR (<1.2) ABG pH (7.35-7.45) ABG pCO2 (35-45) mmHg ABG pO2 (83-108) mmHg ABG HCO3 (21-25) mmol/L ABG Total CO2 (19-24) mmol/L ABG O2 Saturation (94-97) % Chloride (98-107) mmol/L BUN (9-20) mg/dL Creatinine (0.66-1.25) mg/dL Glucose (74-99) mg/dL POC Glucose (mg/dL) 130 H 166 H 170 H (70-110) mg/dL Calcium (8.4-10.2) mg/dL ALT (4-49) U/L Total Protein (6.3-8.2) g/dL Albumin (3.5-5.0) g/dL 05/04/24 05/04/24 05/04/24 Range/Units 06:11 06:11 06:11 RBC 2.77 L (4.30-5.90) m/uL Hgb 8.7 L (13.0-17.5) gm/dL Hct 30.4 L (39.0-53.0) % MCV 109.7 H (80.0-100.0) fL MCHC 28.8 L (31.0-37.0) g/dL RDW 24.3 H (11.5-15.5) % Lymphocytes # 0.7 L (1.0-4.8) k/uL Macrocytosis Marked A PT 13.0 H (10.0-12.5) sec INR 1.2 H (<1.2) ABG pH (7.35-7.45) ABG pCO2 (35-45) mmHg ABG pO2 (83-108) mmHg ABG HCO3 (21-25) mmol/L ABG Total CO2 (19-24) mmol/L ABG O2 Saturation (94-97) % Chloride 108 H (98-107) mmol/L BUN 37 H (9-20) mg/dL Creatinine 1.94 H (0.66-1.25) mg/dL Glucose 141 H (74-99) mg/dL POC Glucose (mg/dL) (70-110) mg/dL Calcium 7.5 L (8.4-10.2) mg/dL ALT 57 H (4-49) U/L Total Protein 5.4 L (6.3-8.2) g/dL Albumin 2.7 L (3.5-5.0) g/dL 05/04/24 05/04/24 05/04/24 Range/Units 08:58 09:52 11:38 RBC (4.30-5.90) m/uL Hgb (13.0-17.5) gm/dL Hct (39.0-53.0) % MCV (80.0-100.0) fL MCHC (31.0-37.0) g/dL RDW (11.5-15.5) % Lymphocytes # (1.0-4.8) k/uL Macrocytosis PT (10.0-12.5) sec INR (<1.2) ABG pH 7.26 L (7.35-7.45) ABG pCO2 58 H (35-45) mmHg ABG pO2 63 L (83-108) mmHg ABG HCO3 26 H (21-25) mmol/L ABG Total CO2 28 H (19-24) mmol/L ABG O2 Saturation 90.2 L (94-97) % Chloride (98-107) mmol/L BUN (9-20) mg/dL Creatinine (0.66-1.25) mg/dL Glucose (74-99) mg/dL POC Glucose (mg/dL) 216 H 270 H (70-110) mg/dL Calcium (8.4-10.2) mg/dL ALT (4-49) U/L Total Protein (6.3-8.2) g/dL Albumin (3.5-5.0) g/dL Assessment and Plan Plan: Worsening shortness of breath, multifactorial, possibly related to acute congestive heart failure, and underlying COPD Atrial fibrillation, with rapid ventricular response on presentation, heart rate was 110 New onset cardiomyopathy. Anemia status post EGD and colonoscopy on 04/24/2024 Generalized weakness Large ulcer at the base of the right great toe with purulent discharge, patient was maintained on oral Augmentin as outpatient, infectious disease consultation requested Underlying history of peripheral arterial disease, with recent history of angioplasty and stent placement to the right lower extremity on 04/08/2024 Underlying history of diabetes mellitus Underlying history of chronic obstructive pulmonary disease Underlying history of chronic kidney disease Underlying history of hyperkalemia Underlying history of chronic continued tobacco abuse Patient pulled out PEG tube. Surgical surfaces consulted. Plans for PEG tube placement on 05/04/2024 At this time patient is admitted to telemetry floor Home medications reviewed and reordered Consultation for cardiology and pulmonary were requested in the emergency room For DVT prophylaxis, patient is maintained on scds (eliquis on hold due to anemia) Will add infectious disease consultation in regard to base of right great toe ulcer Will follow closely
[2024-05-04] MEDS: PIPERACILLIN-TAZOBACTAM 3.375 GM in SODIUM CHLORIDE 0.9% 100 ML IVPB SCH (16:35)
[2024-05-04 18:05] LABS: Glucose,Whole Blood 178 mg/dL (70-110)
--- NOTE | 2024-05-04 20:23 | OP ---
OPERATIVE REPORT DATE OF SERVICE : PROCEDURE: Placement of a left radial arterial line. PREOPERATIVE DIAGNOSES: Acute hypoxic respiratory failure, cardiac arrest in the process of getting a PEG tube placement. POSTOPERATIVE DIAGNOSES: Acute hypoxic respiratory failure, cardiac arrest in the process of getting a PEG tube placement. ANESTHESIA USED: None deployed. DESCRIPTION OF PROCEDURE: The patient was placed in a supine position, the left wrist was prepared in a sterile fashion. Drapes were applied. The left radial artery was palpated, cannulated easily, and a guidewire was placed. A Cook's catheter was inserted over the guidewire, and the guidewire was removed. Good blood flow, good waveform. No complications. Line was secured using 3.0 silk sutures. MMODL / IJN: [id number] /
[2024-05-04] MEDS: METOPROLOL TARTRATE 25 MG TAB PO SCH (21:25)
[2024-05-05 00:31] LABS: Glucose,Whole Blood 172 mg/dL (70-110)
[2024-05-05 05:08] LABS: Glucose,Whole Blood 184 mg/dL (70-110)
[2024-05-05 05:15] LABS: ABG Base Excess 0.2 mmol/L; ABG HCO3 26 mmol/L (21-25); ABG Oxygen Saturation 100.2 % (94-97); ABG PCO2 47 mmHg (35-45); ABG PH 7.35 (7.35-7.45); ABG PO2 123 mmHg (83-108); ABG TCO2 27 mmol/L (19-24)
[2024-05-05 05:45] LABS: ALT 37 U/L (4-49); AST 32 U/L (17-59); African American GFR (CKD) 44 (>60 ml/min/1.73 sqM); Albumin 2.2 g/dL (3.5-5.0); Alkaline Phosphatase 63 U/L (38-126); Anion Gap 4 mmol/L; Blood Urea Nitrogen 40 mg/dL (9-20); Calcium 7.1 mg/dL (8.4-10.2); Carbon Dioxide 24 mmol/L (22-30); Chloride 107 mmol/L (98-107); Glucose 166 mg/dL (74-99); Non-African American GFR(CKD) 38 (>60 ml/min/1.73 sqM); Phosphorus 3.4 mg/dL (2.5-4.5); Potassium 3.9 mmol/L (3.5-5.1); Sodium 135 mmol/L (137-145); Total Bilirubin 0.8 mg/dL (0.2-1.3); Total Protein 4.6 g/dL (6.3-8.2)
[2024-05-05 05:49] LABS: Allen Test Performed? no
[2024-05-05 05:57] LABS: Anisocytosis Moderate; HCT 26.5 % (39.0-53.0); HGB 7.9 gm/dL (13.0-17.5); Hypochromasia Marked; MCV 106.9 fL (80.0-100.0); Macrocytosis Marked; Mean Platelet Volume 9.8; Poikilocytosis Moderate; RBC 2.48 m/uL (4.30-5.90); RDW 23.7 % (11.5-15.5); WBC 6.5 k/uL (3.8-10.6)
--- NOTE | 2024-05-05 08:01 | XR ---
EXAMINATION TYPE: XR chest 1V portable DATE OF EXAM: 05/05/2024 COMPARISON: 05/04/2024 HISTORY: SOB, Follow Up FINDINGS: Indwelling tubes and catheters are unchanged. Progressive Patchy infiltrates throughout both lung layton right greater than left with pulmonary howard ous congestion bilateral pleural effusions and cardiomegaly. Stable appearance of the cardio-mediastinal structures at this time. IMPRESSION: 1. Progressive features of congestive failure although infiltrates of other etiology are not excluded . Correlate clinically.
[2024-05-05 08:34] LABS: Eosinophils # (M) 0.85 k/uL (0-0.7); Lymphocytes # (M) 0.52 k/uL (1.0-4.8); Neutrophils # (M) 5.01 k/uL (1.3-7.7); Neutrophils % (M) 77 %; Nucleated Red Blood Cells 0 /100 WBC (0-0); Total Cells Counted 200
[2024-05-05 08:54] LABS: Poikilocytosis (M) Present
[2024-05-05 08:57] LABS: Platelet Count 219 k/uL (150-450)
--- NOTE | 2024-05-05 10:13 | P.PN ---
Subjective Progress Note Date: 05/05/24 Everett Juárez, is a 63-year-old male who presented to [facility] emergency room with a chief complaint of worsening shortness of breath and generalized weakness, patient was recently admitted to [facility] with peripheral vascular disease right foot osteomyelitis and underwent stenting of the right SFA by Dr. Dillard, he has a previous history of right great toe amputation. He was evaluated in the emergency room vital examination on presentation revealed a temperature of 98.9 pulse 110 respiration 18 blood pressure 114/72 pulse ox 96% on room air Laboratory data reveals a white blood count of 8.7 hemoglobin 11.4 platelet count 283 sodium 139 potassium 4.9 chloride 110 CO2 23 BUN 41 creatinine 2.01 D- dimer was elevated at 2.10, troponin level was elevated at 0.043 Testing in the emergency room revealed chest x-ray done in the emergency room revealed cardiomegaly and mild pulmonary vascular congestion suggestive of congestive heart failure, VQ scan showed no evidence for pulmonary embolism, EKG revealed atrial fibrillation with moderate T wave abnormalities suggestive of lateral ischemia. Patient was admitted to medical floor for further evaluation and treatment Past medical history is significant for history of atrial fibrillation, history of peripheral arterial disease with previous history of right great toe amputation, history of COPD, history of diabetes mellitus type 2, history of hyperkalemia, history of chronic kidney disease. On review of systems patient is alert and oriented x 3 in no apparent distress, he is complaining of generalized weakness, complaining of shortness of breath, which is worse with activity, and complaining of right foot pain, otherwise he denies any complaints, there is no fever or chills no headache or dizziness no chest pain, no cough no nausea or vomiting no abdominal pain no diarrhea and no urinary symptoms On 04/14/2024 patient is alert and oriented 3.Patient remains on IV Unasyn and IV Lasix. 2-D echo completed showing an EF of 35-40%. Current vital signs temp 98.3, heart 81, respiratory rate 18, blood pressure 135/67 with a pulse ox of 100% on 3 L. Patient reports improvement with shortness of breath. Patient denies nausea vomiting or diarrhea. Patient denies any urinary burning or frequency On 04/15/2024 Patient is alert and oriented 3. Patient remains on IV Unasyn. Patient has been transitioned to by mouth Lasix.Current vital signs temp 97.1, heart rate 98, respiratory rate 18, blood pressure 121/79 with pulse ox 96% on 3 L. Patient denies chest pain or shortness breath. Patient denies nausea vomiting or diarrhea. Patient denies any urinary burning or frequency. On 04/16/2024 he is alert and oriented x 3 in no apparent distress he reports improvement in his shortness of breath there is no fever or chills no headache or dizziness no chest pain no cough no nausea or vomiting no abdominal pain no diarrhea and no urinary symptoms. On 04/17/2024 patient is alert and oriented x 3. Current vital signs Temp 98.1, heart rate 100, respiratory rate 16, blood pressure 153/81 with a pulse ox of 97% on 2 L. Patient remains on IV Unasyn. Awaiting final antibiotic recommenda tions per ID. Patient denies chest pain or shortness of breath. Patient denies nausea vomiting or diarrhea. Patient denies any urinary burning or frequency. On 04/18/2024 patient was seen and examined on the medical floor he is alert and oriented x 3 in no apparent distress there is no fever or chills no headache or dizziness no chest pain no shortness of breath no cough no nausea or vomiting no abdominal pain no diarrhea no urinary symptoms, he is still maintained on oxygen supplements, patient need to be assessed for need for home oxygen, he is also maintained on tube feeding, outpatient case manager is working on arrangement for tube feeding at home. Otherwise continue with current management will recheck in a.m.. On 04/19/2024 patient is alert and oriented x 3. Patient is maintained on 3 L n roberth cannula. Patient also maintained on IV Unasyn. Awaiting final IV recommendations from infectious disease. Current vital signs Temp 98.2, heart rate 82, blood pressure 116/70 with a pulse ox of 97% on 3 L patient denies chest pain or shortness of breath. Patient denies nausea vomiting or diarrhea. Patient denies any urinary burning or frequency On 04/20/2024 patient was seen and examined on the medical floor he is alert and oriented x 3 in no apparent distress, there is no fever or chills no headache or dizziness no chest pain no shortness of breath no cough no nausea or vomiting no abdominal pain no diarrhea no urinary symptoms, patient is still having difficulty with hyperkalemia, he is maintained on IV fluids and [facility] nephrology are following, will recheck labs in a.m. On 04/21/2024 patient is alert and oriented x 3. Potassium remains elevated at 5.9 awaiting further recommendations from nephrology standpoint. Patient denies chest pain or shortness of breath. Patient denies nausea vomiting or diarrhea. Patient denies any urinary burning or frequency On 04/22/2024 patient is alert and oriented x 3. Patient received 1 unit PRBCs for hemoglobin of 6.8 yesterday. GI services were consulted stool for occult blood ordered. Nephrology service is following for elevated potassium level. At this time patient denies chest pain or shortness of breath. Patient denies nausea vomiting or diarrhea. Patient denies any urinary burning frequency. On 04/23/2024 patient was seen and examined on the medical floor he is alert and oriented x 3 in no apparent distress, his hemoglobin today is again 6.01 unit of red blood cell transfusion was ordered, he was reevaluated by gastroenterology and plans are for EGD and colonoscopy tomorrow, otherwise he denies any complaints there is no fever or chills no headache or dizziness no chest pain no shortness of breath no cough no nausea or vomiting no abdominal pain no diarrhea no urinary symptoms On 04/24/2024 patient is alert and oriented 3. Plans for EGD and colonoscopy today with GI services.Patient had episodes of hypotension throughout night received IV bolus. Continue to transfuse patient for hemoglobin less than 7. Patient remains on IV Unasyn. This time patient denies chest pain or shortness breath. Patient denies nausea vomiting or diarrhea. Patient denies any urinary burning or frequency. On 04/25/2024 patient was seen and examined on the medical floor he is alert and oriented x 3 in no apparent distress there is no fever or chills no headache or dizziness no chest pain no shortness of breath no cough no nausea or vomiting no abdominal pain no diarrhea no urinary symptoms, hemoglobin is down again to 6.7 patient will be given 1 unit of red blood cell transfusion, EGD and colonoscopy results done yesterday were reviewed, at this time will consult Dr. Jackson regarding recurrent pneumonia requiring multiple red blood cell transfusion, continue with tube feeding at this time. On 04/26/2024 patient is alert and oriented x 3. Hemoglobin today 8.0. Awaiting oncology input. Patient denies chest pain or shortness of breath. Patient denies nausea vomiting or diarrhea. Patient denies any urinary burning or frequency. Current vital signs Temp 97.7, heart rate 91, respiratory rate 16, blood pressure 118/60 with pulse ox of 98% on 4 L On 04/27/2024 patient was seen and examined on the medical floor he is alert and oriented x 3 in no apparent distress he is complaining of generalized weakness otherwise he denies any specific complaints there is no fever or chills no headache or dizziness no chest pain no shortness of breath no cough no nausea or vomiting no abdominal pain no diarrhea no urinary symptoms. On 04/28/2024 patient was seen and examined on the medical floor he is alert and oriented x 3 in no apparent distress there is no fever or chills no headache or dizziness no chest pain no shortness of breath no cough no nausea or vomiting no abdominal pain no diarrhea and no urinary symptoms, hemoglobin is stabilizing around 8 will continue to monitor On 04/29/2024 patient is alert and oriented 3.heart rate elevated at 121 this AM. Patient being followed by cardiology services was given by mouth amiodarone awaiting further recommendations from cardiology services. Hemoglobin remained stable at 8.1. Patient denies chest pain or shortness of breath. Patient denies nausea vomiting or diarrhea. Patient denies any urinary burning or frequency On 04/30/2024 patient is alert resting comfortably in bed. Patient pulled out PEG tube yesterday. Patient unable to take pills by mouth. Surgical service is consulted for new PEG tube placement unable to do until Saturday due to patient being on Plavix Plavix currently on hold. Heart rate remains elevated Lopressor IV push has been ordered. Current vital signs temp 97.7, heart rate 127, blood pressure 118/72 with pulse ox 96% on 3 L. Patient denies chest pain or shortness of breath. Patient denies nausea vomiting or diarrhea. Patient denies any urinary burning or frequency on 05/01/2024 patient is resting comfortably in bed. Awaiting PEG tube placement on Saturday.current vital signs temp 98.1, heart rate 107, respiratory rate 18, blood pressure 115/73 with pulse ox 91% on 3 L. Patient denies chest pain or shortness of breath. Patient denies nausea vomiting or diarrhea On 05/02/2024 patient was seen and examined on the medical floor he is alert responsive in no apparent distress, there is no fever or chills no headache or dizziness no chest pain no shortness of breath no cough no nausea or vomiting no abdominal pain no diarrhea and no urinary symptoms, at this time we are awaiting replacement of his PEG tube, Plavix was held in that regard, PICC line was inserted and patient was started on TPN , continue current medications otherwise On 05/03/2024 patient is alert and oriented x 3 currently sitting up in bed. Per nursing staff patient is being switched to IV amiodarone for heart rate control. Patient was also started on TPN through PICC line. Patient to get PEG tube placement tomorrow and hopefully can restart back on p.o. medications for heart rate control. Patient denies chest pain or shortness of breath. Patient denies nausea vomiting or diarrhea. Patient denies any urinary burning or frequency. On 05/04/2024 patient was seen and examined in the ICU, he is currently intubated sedated maintained on mechanical ventilation, earlier this morning patient had cardiac arrest which required resuscitation and intubation and transfer to ICU, currently his vital examination reveals a temperature of 97.8 pulse 85 respiration 20 blood pressure 113/48 pulse ox 96% on mechanical ventilation FiO2 50% white blood count today 5.9 hemoglobin 8.7 platelet count 271 INR 1.2 arterial blood gas pH 7.26 P CO2 58 pO2 63 On 05/05/2025 for patient remains in the intensive care unit on mechanical ventilation.patient remains on IV heparin drip IV Lasix and IV Zosyn.current vital signs temp 97.5, heart rate 70, respiratory rate 14, blood pressure 113/63 with a pulse ox of 99% with an FiO2 of 50%. Objective - Vital Signs Vital signs: Vital Signs Temp 97.5 F L 05/05/24 10:00 Pulse 70 05/05/24 10:00 Resp 22 05/05/24 10:00 BP 113/63 05/05/24 10:00 Pulse Ox 99 05/05/24 10:00 FiO2 50 05/05/24 08:00 Intake & Output 05/04/24 05/05/24 05/05/24 18:59 06:59 18:59 Intake Total 788.770 3891.534 294 Output Total 2305 780 250 Balance -1316.468 426.534 44 Weight 109 kg 109.4 kg Intake: IV 30 293 89 0.9 KVO 160 40 Lactated Ringers 1,000 ml 40 @ 20 mls/hr IV .Q24H MARY ANN Rx#:[id number] Piperacillin-Tazobactam 3 100 .375 gm In Sodium Chloride 0.9% 100 ml @ 25 mls/hr IVPB Q8HR MARY ANN Rx# :[id number] pressure bag 30 33 9 Intake, IV Titration 958.532 528.534 100 Amount Ampicillin-Sulbactam 3 gm 100 In Sodium Chloride 0.9% 100 ml @ 200 mls/hr IVPB Q8H MARY ANN Rx#:[id number] Heparin Sod,Pork in 0.45% 37.296 148.965 NaCl 25,000 unit In 0.45 % NaCl 1 250ml.bag @ 9.35 UNITS/KG/HR 9.995 mls/hr IV .Q24H MARY ANN Rx#: [id number] Lactated Ringers 1,000 ml 100 @ 20 mls/hr IV .Q24H MARY ANN Rx#:[id number] Mvi, Adult No.4 with Vit 475 K 10 ml Trace (Conc-1Ml/ Dose) 1 ml Sodium Acetate 18 meq Calcium Gluconate 1 gm Magnesium Sulfate gm 0.5 gm Sodium Phosphate 9 mmol In Amino Acids 5 %/Dextrose 20 % 1,000 ml @ 35 mls/hr IV . Q24H MARY ANN Rx#:[id number] Norepinephrine 4 mg In 46.236 85.829 Sodium Chloride 0.9% 250 ml @ 0.05 MCG/KG/MIN 20. 765 mls/hr IV .[id number] MARY ANN Rx#:[id number] Piperacillin-Tazobactam 3 100 .375 gm In Sodium Chloride 0.9% 100 ml @ 25 mls/hr IVPB Q8HR MARY ANN Rx# :[id number] propofoL 1,000 mg In 100.000 293.74 100 Empty Bag 1 bag @ 15 MCG/ KG/MIN 9.81 mls/hr IV . [id number] MARY ANN Rx#:[id number] TPN/PPN 385 105 Sodium Acetate 18 meq 385 105 Calcium Gluconate 1 gm Magnesium Sulfate gm 0.5 gm Sodium Phosphate 9 mmol In Amino Acids 5 %/ Dextrose 20 % 1,000 ml @ 35 mls/hr IV .BY DURATION MARY ANN Rx#:[id number] Output: Gastric Drainage 150 Urine 2305 630 250 Other: Voiding Method Indwelling Catheter Indwelling Catheter Indwelling Catheter ABP, PAP, CO, CI - Last Documented Arterial Blood Pressure 137/58 - Exam In general patient is alert and oriented x 3 in no distress HEENT head normocephalic and atraumatic Neck is supple no JVD no goiter no lymphadenopathy no carotid bruit Chest examination reveals a scattered crackles in both lung [place] no wheezing Cardiac exam reveals irregular heart sounds S1 and S2 no gallops no murmurs Abdomen is soft nontender no organomegaly with normal bowel sounds Extremity exam reveals no edema no cyanosis or clubbing, the right great toe is amputated with a large ulcer at the base of the amputated right great toe with purulent discharge Neurological examination reveals no gross focal deficits - Labs CBC & Chem 7: 05/05/24 05:07 05/05/24 05:07 Labs: Abnormal Lab Results - Last 24 Hours (Table) 05/04/24 05/04/24 05/04/24 Range/Units 11:38 13:17 18:03 RBC (4.30-5.90) m/uL Hgb (13.0-17.5) gm/dL Hct (39.0-53.0) % MCV (80.0-100.0) fL MCHC (31.0-37.0) g/dL RDW (11.5-15.5) % Lymphocytes # (Manual) (1.0-4.8) k/uL Eosinophils # (Manual) (0-0.7) k/uL Macrocytosis APTT 33.5 H (22.0-30.0) sec ABG pCO2 (35-45) mmHg ABG pO2 (83-108) mmHg ABG HCO3 (21-25) mmol/L ABG Total CO2 (19-24) mmol/L ABG O2 Saturation (94-97) % Sodium (137-145) mmol/L BUN (9-20) mg/dL Creatinine (0.66-1.25) mg/dL Glucose (74-99) mg/dL POC Glucose (mg/dL) 270 H 178 H (70-110) mg/dL Calcium (8.4-10.2) mg/dL Total Protein (6.3-8.2) g/dL Albumin (3.5-5.0) g/dL 05/04/24 05/05/24 05/05/24 Range/Units 18:15 00:29 01:20 RBC (4.30-5.90) m/uL Hgb (13.0-17.5) gm/dL Hct (39.0-53.0) % MCV (80.0-100.0) fL MCHC (31.0-37.0) g/dL RDW (11.5-15.5) % Lymphocytes # (Manual) (1.0-4.8) k/uL Eosinophils # (Manual) (0-0.7) k/uL Macrocytosis APTT 93.3 H 52.5 H (22.0-30.0) sec ABG pCO2 (35-45) mmHg ABG pO2 (83-108) mmHg ABG HCO3 (21-25) mmol/L ABG Total CO2 (19-24) mmol/L ABG O2 Saturation (94-97) % Sodium (137-145) mmol/L BUN (9-20) mg/dL Creatinine (0.66-1.25) mg/dL Glucose (74-99) mg/dL POC Glucose (mg/dL) 172 H (70-110) mg/dL Calcium (8.4-10.2) mg/dL Total Protein (6.3-8.2) g/dL Albumin (3.5-5.0) g/dL 05/05/24 05/05/24 05/05/24 Range/Units 05:05 05:07 05:07 RBC 2.48 L (4.30-5.90) m/uL Hgb 7.9 L (13.0-17.5) gm/dL Hct 26.5 L (39.0-53.0) % MCV 106.9 H (80.0-100.0) fL MCHC 30.0 L (31.0-37.0) g/dL RDW 23.7 H (11.5-15.5) % Lymphocytes # (Manual) 0.52 L (1.0-4.8) k/uL Eosinophils # (Manual) 0.85 H (0-0.7) k/uL Macrocytosis Marked A APTT (22.0-30.0) sec ABG pCO2 (35-45) mmHg ABG pO2 (83-108) mmHg ABG HCO3 (21-25) mmol/L ABG Total CO2 (19-24) mmol/L ABG O2 Saturation (94-97) % Sodium 135 L (137-145) mmol/L BUN 40 H (9-20) mg/dL Creatinine 1.83 H (0.66-1.25) mg/dL Glucose 166 H (74-99) mg/dL POC Glucose (mg/dL) 184 H (70-110) mg/dL Calcium 7.1 L (8.4-10.2) mg/dL Total Protein 4.6 L (6.3-8.2) g/dL Albumin 2.2 L (3.5-5.0) g/dL 05/05/24 05/05/24 Range/Units 05:07 05:12 RBC (4.30-5.90) m/uL Hgb (13.0-17.5) gm/dL Hct (39.0-53.0) % MCV (80.0-100.0) fL MCHC (31.0-37.0) g/dL RDW (11.5-15.5) % Lymphocytes # (Manual) (1.0-4.8) k/uL Eosinophils # (Manual) (0-0.7) k/uL Macrocytosis APTT 51.9 H (22.0-30.0) sec ABG pCO2 47 H (35-45) mmHg ABG pO2 123 H (83-108) mmHg ABG HCO3 26 H (21-25) mmol/L ABG Total CO2 27 H (19-24) mmol/L ABG O2 Saturation 100.2 H (94-97) % Sodium (137-145) mmol/L BUN (9-20) mg/dL Creatinine (0.66-1.25) mg/dL Glucose (74-99) mg/dL POC Glucose (mg/dL) (70-110) mg/dL Calcium (8.4-10.2) mg/dL Total Protein (6.3-8.2) g/dL Albumin (3.5-5.0) g/dL Assessment and Plan Plan: Worsening shortness of breath, multifactorial, possibly related to acute congestive heart failure, and underlying COPD Atrial fibrillation, with rapid ventricular response on presentation, heart rate was 110 status post cardiac arrest requiring intubation and mechanical ventilation New onset cardiomyopathy. Anemia status post EGD and colonoscopy on 04/24/2024 Generalized weakness Large ulcer at the base of the right great toe with purulent discharge, patient was maintained on oral Augmentin as outpatient, infectious disease consultation requested Underlying history of peripheral arterial disease, with recent history of angioplasty and stent placement to the right lower extremity on 04/08/2024 Underlying history of diabetes mellitus Underlying history of chronic obstructive pulmonary disease Underlying history of chronic kidney disease Underlying history of hyperkalemia Underlying history of chronic continued tobacco abuse Patient pulled out PEG tube. Surgical surfaces consulted. Plans for PEG tube placement on 05/04/2024 patient transferred to the intensive care unit Maintained on mechanical ventilation For DVT prophylaxis,heparin drip. GI prophylaxis Pepcid cardiology, infectious disease,critical care, nephrology and surgical service is consulted Will follow closely
[2024-05-05 10:27] VITALS: BMI 34.6
[2024-05-05] MEDS: FUROSEMIDE 10 MG/ML 4 ML VIAL IV SCH (10:38)
[2024-05-05 11:32] LABS: Glucose,Whole Blood 136 mg/dL (70-110)
[2024-05-05] MEDS ORDERED: [UNRECOGNIZED DRUG - REMARK] IV SCH (12:30)
[2024-05-05] MEDS ORDERED: [UNRECOGNIZED DRUG - REMARK] IV SCH (12:30)
--- NOTE | 2024-05-05 13:05 | P.PN ---
Subjective patient is seen for follow-up for acute kidney injury and chronic kidney disease. status post cardiac arrest on 05/04/2024 prior to surgery for PEG tube placement.no major electrolyte abnormalities noted. Renal function is stable with serum creatinine at 1.8 mg/dL. Off of TPN. Started Lasix this morning. UOP at 75 200 mL an hour Objective - Vital Signs Vital signs: Vital Signs Temp 97.5 F L 05/05/24 12:00 Pulse 70 05/05/24 12:00 Resp 22 05/05/24 12:00 BP 113/63 05/05/24 10:00 Pulse Ox 100 05/05/24 12:00 FiO2 45 05/05/24 12:00 Intake & Output 05/04/24 05/05/24 05/05/24 18:59 06:59 18:59 Intake Total 955.450 9291.534 1591.958 Output Total 2305 780 685 Balance -1316.468 426.534 906.958 Weight 109 kg 109.4 kg 109.4 kg Intake: IV 30 293 155 0.9 KVO 160 60 Lactated Ringers 1,000 ml 80 @ 20 mls/hr IV .Q24H [facility] Rx#:[id number] Piperacillin-Tazobactam 3 100 .375 gm In Sodium Chloride 0.9% 100 ml @ 25 mls/hr IVPB Q8HR [facility] Rx# :[id number] pressure bag 30 33 15 Intake, IV Titration 958.532 462.547 1027.958 Amount Ampicillin-Sulbactam 3 gm 100 In Sodium Chloride 0.9% 100 ml @ 200 mls/hr IVPB Q8H [facility] Rx#:[id number] Heparin Sod,Pork in 0.45% 37.296 148.965 NaCl 25,000 unit In 0.45 % NaCl 1 250ml.bag @ 9.35 UNITS/KG/HR 9.995 mls/hr IV .Q24H [facility] Rx#: [id number] Lactated Ringers 1,000 ml 100 @ 20 mls/hr IV .Q24H [facility] Rx#:[id number] Mvi, Adult No.4 with Vit 1034 K 10 ml Trace (Conc-1Ml/ Dose) 1 ml Sodium Acetate 18 meq Calcium Gluconate 1 gm Magnesium Sulfate gm 0.5 gm Sodium Phosphate 9 mmol In Amino Acids 5 %/Dextrose 20 % 1,000 ml @ 35 mls/hr IV . BY DURATION [facility] Rx#: [id number] Mvi, Adult No.4 with Vit 475 K 10 ml Trace (Conc-1Ml/ Dose) 1 ml Sodium Acetate 18 meq Calcium Gluconate 1 gm Magnesium Sulfate gm 0.5 gm Sodium Phosphate 9 mmol In Amino Acids 5 %/Dextrose 20 % 1,000 ml @ 35 mls/hr IV . Q24H [facility] Rx#:[id number] Norepinephrine 4 mg In 46.236 85.829 Sodium Chloride 0.9% 250 ml @ 0.05 MCG/KG/MIN 20. 765 mls/hr IV .[id number] [facility] Rx#:[id number] Piperacillin-Tazobactam 3 100 100 .375 gm In Sodium Chloride 0.9% 100 ml @ 25 mls/hr IVPB Q8HR [facility] Rx# :[id number] propofoL 1,000 mg In 100.000 293.74 147.958 Empty Bag 1 bag @ 15 MCG/ KG/MIN 9.81 mls/hr IV . [id number] [facility] Rx#:[id number] Tube Feeding 20 TPN/PPN 385 105 Sodium Acetate 18 meq 385 105 Calcium Gluconate 1 gm Magnesium Sulfate gm 0.5 gm Sodium Phosphate 9 mmol In Amino Acids 5 %/ Dextrose 20 % 1,000 ml @ 35 mls/hr IV .BY DURATION [facility] Rx#:[id number] Other 30 Output: Gastric Drainage 150 Urine 2305 630 685 Other: Voiding Method Indwelling Catheter Indwelling Catheter Indwelling Catheter ABP, PAP, CO, CI - Last Documented Arterial Blood Pressure 131/53 - Exam patient is on the vent Examination of the heart S1 and S2 Examination lungs bilateral breath sounds are heard Abdomen is soft nontender Examination lower extremities shows no significant edema. - Labs CBC & Chem 7: 05/05/24 05:07 05/05/24 05:07 Labs: Abnormal Lab Results - Last 24 Hours (Table) 05/04/24 05/04/24 05/04/24 Range/Units 13:17 18:03 18:15 RBC (4.30-5.90) m/uL Hgb (13.0-17.5) gm/dL Hct (39.0-53.0) % MCV (80.0-100.0) fL MCHC (31.0-37.0) g/dL RDW (11.5-15.5) % Lymphocytes # (Manual) (1.0-4.8) k/uL Eosinophils # (Manual) (0-0.7) k/uL Macrocytosis APTT 33.5 H 93.3 H (22.0-30.0) sec ABG pCO2 (35-45) mmHg ABG pO2 (83-108) mmHg ABG HCO3 (21-25) mmol/L ABG Total CO2 (19-24) mmol/L ABG O2 Saturation (94-97) % Sodium (137-145) mmol/L BUN (9-20) mg/dL Creatinine (0.66-1.25) mg/dL Glucose (74-99) mg/dL POC Glucose (mg/dL) 178 H (70-110) mg/dL Calcium (8.4-10.2) mg/dL Total Protein (6.3-8.2) g/dL Albumin (3.5-5.0) g/dL 05/05/24 05/05/24 05/05/24 Range/Units 00:29 01:20 05:05 RBC (4.30-5.90) m/uL Hgb (13.0-17.5) gm/dL Hct (39.0-53.0) % MCV (80.0-100.0) fL MCHC (31.0-37.0) g/dL RDW (11.5-15.5) % Lymphocytes # (Manual) (1.0-4.8) k/uL Eosinophils # (Manual) (0-0.7) k/uL Macrocytosis APTT 52.5 H (22.0-30.0) sec ABG pCO2 (35-45) mmHg ABG pO2 (83-108) mmHg ABG HCO3 (21-25) mmol/L ABG Total CO2 (19-24) mmol/L ABG O2 Saturation (94-97) % Sodium (137-145) mmol/L BUN (9-20) mg/dL Creatinine (0.66-1.25) mg/dL Glucose (74-99) mg/dL POC Glucose (mg/dL) 172 H 184 H (70-110) mg/dL Calcium (8.4-10.2) mg/dL Total Protein (6.3-8.2) g/dL Albumin (3.5-5.0) g/dL 05/05/24 05/05/24 05/05/24 Range/Units 05:07 05:07 05:07 RBC 2.48 L (4.30-5.90) m/uL Hgb 7.9 L (13.0-17.5) gm/dL Hct 26.5 L (39.0-53.0) % MCV 106.9 H (80.0-100.0) fL MCHC 30.0 L (31.0-37.0) g/dL RDW 23.7 H (11.5-15.5) % Lymphocytes # (Manual) 0.52 L (1.0-4.8) k/uL Eosinophils # (Manual) 0.85 H (0-0.7) k/uL Macrocytosis Marked A APTT 51.9 H (22.0-30.0) sec ABG pCO2 (35-45) mmHg ABG pO2 (83-108) mmHg ABG HCO3 (21-25) mmol/L ABG Total CO2 (19-24) mmol/L ABG O2 Saturation (94-97) % Sodium 135 L (137-145) mmol/L BUN 40 H (9-20) mg/dL Creatinine 1.83 H (0.66-1.25) mg/dL Glucose 166 H (74-99) mg/dL POC Glucose (mg/dL) (70-110) mg/dL Calcium 7.1 L (8.4-10.2) mg/dL Total Protein 4.6 L (6.3-8.2) g/dL Albumin 2.2 L (3.5-5.0) g/dL 05/05/24 05/05/24 Range/Units 05:12 11:31 RBC (4.30-5.90) m/uL Hgb (13.0-17.5) gm/dL Hct (39.0-53.0) % MCV (80.0-100.0) fL MCHC (31.0-37.0) g/dL RDW (11.5-15.5) % Lymphocytes # (Manual) (1.0-4.8) k/uL Eosinophils # (Manual) (0-0.7) k/uL Macrocytosis APTT (22.0-30.0) sec ABG pCO2 47 H (35-45) mmHg ABG pO2 123 H (83-108) mmHg ABG HCO3 26 H (21-25) mmol/L ABG Total CO2 27 H (19-24) mmol/L ABG O2 Saturation 100.2 H (94-97) % Sodium (137-145) mmol/L BUN (9-20) mg/dL Creatinine (0.66-1.25) mg/dL Glucose (74-99) mg/dL POC Glucose (mg/dL) 136 H (70-110) mg/dL Calcium (8.4-10.2) mg/dL Total Protein (6.3-8.2) g/dL Albumin (3.5-5.0) g/dL Assessment and Plan Assessment: 1. Acute kidney injury secondary to ATN secondary to acute blood loss anemia. Creatinine peaked at 2.7 this admission and stable at 1.9 - 2.0 No hydronephrosis noted on kidney ultrasound. UA fairly benign. 2. Chronic kidney disease stage IV baseline creatinine 1.8-2.0 secondary to solitary right kidney. History of left nephrectomy. 3. Chronic systolic CHF ejection fraction of 35 to 40% with severe pulmonary hypertension. 4. Diabetes mellitus. 5. Hypernatremia from lack of oral water intake. Improved. 6. Hyperkalemia secondary to acute kidney injury and GI bleed. Resolved. 7. Peripheral vascular disease. 8. Acute blood loss anemia with hemoglobin. No active bleeding. Status post blood transfusions and IV DDAVP. Also on Aranesp. GI following. Plan: maintain off of IV fluids. continue with IV Lasix. Chest x-ray does show pulmonary vascular congestion. Repeat labs in a.m.
--- NOTE | 2024-05-05 13:16 | P.PN ---
Subjective Progress Note Date: 05/05/24 Principal diagnosis: Acute exacerbation of systolic congestive heart failure and acute cellulitis of right foot, cardiac arrest This is a 63-year-old white male with history of multiple medical problems including coronary artery disease, chronic atrial fibrillation, peripheral vessel occlusive disease, severe pulmonary hypertension, chronic obstructive pulmonary disease, patient normally sees Dr. Dillard on outpatient basis. 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 Admitted this time with few days history of increased shortness of breath, and according to the his O2 saturation was down in the 60s. Patient was brought into the ER, chest x-ray showed evidence of pulmonary edema, VQ scan negative for pulmonary embolism, patient was admitted and this consult was initiated. Patient is not a great historian, most of the information was obtained from his , apparently the patient had history of CVA in the past, and he had a previous PEG tube placement Labs on admission showed relatively normal CBC, no leukocytosis, D-dimer was a bit elevated at 2.10 and renal profile was abnormal with BUN of 43 and creatinine 2.01 however BNP level was 12,300 and troponin was 0.043. Since admission, the patient received 1 dose of Lasix, and he is at least 1.5 L negative fluid balance The patient is seen today April 14, 2024 in follow-up on the selective care unit. He is currently sitting up at the bedside. Awake and alert in no acute distress. Breathing a bit easier today compared to yesterday. Currently maintaining good O2 saturations in the upper 90s on 3 L/min per nasal cannula. He is afebrile. Hemodynamically stable. Echocardiogram reveals impaired left ventricular systolic function with an ejection fraction of 35 to 40%. Severe pulmonary hypertension. Moderate to severely dilated left atrium. Right first toe culture is pending. Currently on Unasyn. Glucose 125. Being nourished with Glucerna at 51 MLS per hour via his PEG tube. Anticoagulated with Eliquis. Remains on diuretics. Making adequate urine. The patient is seen today April 15, 2024 in follow-up on the selective care unit. He is awake and alert in no acute distress. Maintaining O2 saturations in the 90s on 3 L/min per nasal cannula. Hemodynamically stable. White count 8.4. Hemoglobin 11.2. Platelets 321. Sodium 143. Potassium 4.9. Bicarb 29. BUN 45. Creatinine 1.99. Glucose 126. He is continued on Unasyn. Anticoagulated with Eliquis. Remains on bronchodilators. Remains on oral diuretics. Continued on Glucerna via his PEG tube. Barium swallow is pending so the patient can continue on tube feedings in the outpatient setting Patient was evaluated today on 04/16/2024, patient is doing well, comfortable, not in any distress, on 3 L nasal cannula with O2 sats of 96%. WBC is 8.5 hemoglobin 10.5 electrolytes are relatively normal with potassium of 5.2 BUN is 48 creatinine 1.94, steadily improving since admission patient had a successful swallow evaluation study that came back unremarkable. Progress note dated May 02, 2024. 63-year-old male who is now been in the hospital for about 3 weeks. Currently, he is on 2 L of oxygen by nasal cannula, getting saline at 75 cc an hour, Cardizem at 5 mg an hour, and TPN at 30 MLS per hour. He is sitting at the side of his bed. No respiratory distress or difficulty. The plan is to replace his PEG tube on Saturday. He apparently accidentally pulled it out. Current labs include sodium 141, potassium 4.9, chlorides 110, CO2 26, anion gap 5, BUN 35, creatinine 1.92. Glucose is 149. Albumin is 2.6. Calcium is 7.6. Chest x-ray from yesterday is consistent with cardiomegaly. Progress note dated May 03, 2024. 63-year-old male seen today in room 353. Currently, the patient is on nasal O2 at 2 L. He is not receiving any IV fluids. The patient continues on IV Unasyn. The patient is supposed to have a reinsertion of the PEG tube, that he accidentally pulled out, tomorrow, May 05. The patient has no specific complaints today. Current labs include a white count 6.4, hemoglobin 8.3, hemat ocrit 28.7, platelet count 274,000. Sodium 139, potassium 4.6, chlorides 108, CO2 28, BUN 37, creatinine 2.04. Glucose is 180. Albumin is 2.6. Patient was given today on 05/04/2024, patient was in the endoscopy suite to undergo PEG tube placement, apparently patient received mild sedation, and he went on to develop cardiopulmonary arrest. Patient had chest compression, received epinephrine, intubated in the meantime, and was sent back to ICU intubated and make ventilated. Patient is on assist-control rate of 16 tidal volume 500 FiO2 50%, PEEP of 8 ABG showed a pO2 of 62 pCO2 58 pH of 7.26. Hence his rate was increased to 20. And FiO2 was changed from 100% initially to 50%. Patient was not hypotensive requiring norepinephrine, however as soon as a left radial arterial line was placed, noted that her blood pressure was actually elevated, norepinephrine was discontinued. Patient is on amiodarone at 0.5 mg/min, he is receiving TPN, patient is on heparin drip, and his propofol dose is 10 mcg/kg/min. WBC count of 5.9 hemoglobin 8.7 INR is 1.2 chest x-ray postintubation showed evidence of congestive heart failure/interstitial edema and small right-sided pleural effusion patient will receive Lasix. He was seen again today on , patient is in the ICU, intubated, mechanicall y ventilated, he is on assist-control rate of 20 tidal volume 500 FiO2 50% and PEEP of 8 ABG showed a pO2 of 123 pCO2 47 pH of 7.35. No changes made in the ventilator settings except cutting down FiO2 to 45%. Patient remains on heparin drip, he is on propofol at 40 mcg/kg/min, receiving TPN at 35 cc/h patient is also on Zosyn. Still on Lasix at 40 mg IV push every 12 hours, chest x-ray continues to show evidence of interstitial edema/infiltrates. Patient required norepinephrine yesterday, and this has been off since 5 AM this morning. WBC count is 6.5 hemoglobin 7.9. Basic metabolic profile is normal BUN is 14 creatinine 1.83 slightly better compared to creatinine of 1.94 yesterday. After reviewing chest x-ray, patient was placed on Lasix 40 mg IV push every 12 hours. After reviewing the notes from general surgery were and the surgeon has no plans in the future to consider EGD again or PEG tube placement, recommended GI evaluation for possible PEG tube placement while the patient is intubated mechanically ventilated, and he seems to be definitely more stable now for PEG tube placement than he was prior to intubation. And will likely clear patient for PEG tube placement by cardiology prior to procedure Objective - Vital Signs Vital signs: Vital Signs Temp 97.5 F L 07/30/24 12:00 Pulse 70 05/05/24 12:00 Resp 22 05/05/24 12:00 BP 113/63 05/05/24 10:00 Pulse Ox 100 05/05/24 12:00 FiO2 45 05/05/24 12:00 Intake & Output 05/04/24 05/05/24 05/05/24 18:59 06:59 18:59 Intake Total 649.739 8931.534 1591.958 Output Total 2305 780 685 Balance -1316.468 426.534 906.958 Weight 109 kg 109.4 kg 109.4 kg Intake: IV 30 293 155 0.9 KVO 160 60 Lactated Ringers 1,000 ml 80 @ 20 mls/hr IV .Q24H [facility] Rx#:[id number] Piperacillin-Tazobactam 3 100 .375 gm In Sodium Chloride 0.9% 100 ml @ 25 mls/hr IVPB Q8HR [facility] Rx# :[id number] pressure bag 30 33 15 Intake, IV Titration 958.532 213.525 3173.958 Amount Ampicillin-Sulbactam 3 gm 100 In Sodium Chloride 0.9% 100 ml @ 200 mls/hr IVPB Q8H [facility] Rx#:[id number] Heparin Sod,Pork in 0.45% 37.296 148.965 NaCl 25,000 unit In 0.45 % NaCl 1 250ml.bag @ 9.35 UNITS/KG/HR 9.995 mls/hr IV .Q24H [facility] Rx#: [id number] Lactated Ringers 1,000 ml 100 @ 20 mls/hr IV .Q24H [facility] Rx#:[id number] Mvi, Adult No.4 with Vit 1034 K 10 ml Trace (Conc-1Ml/ Dose) 1 ml Sodium Acetate 18 meq Calcium Gluconate 1 gm Magnesium Sulfate gm 0.5 gm Sodium Phosphate 9 mmol In Amino Acids 5 %/Dextrose 20 % 1,000 ml @ 35 mls/hr IV . BY DURATION [facility] Rx#: [id number] Mvi, Adult No.4 with Vit 475 K 10 ml Trace (Conc-1Ml/ Dose) 1 ml Sodium Acetate 18 meq Calcium Gluconate 1 gm Magnesium Sulfate gm 0.5 gm Sodium Phosphate 9 mmol In Amino Acids 5 %/Dextrose 20 % 1,000 ml @ 35 mls/hr IV . Q24H [facility] Rx#:[id number] Norepinephrine 4 mg In 46.236 85.829 Sodium Chloride 0.9% 250 ml @ 0.05 MCG/KG/MIN 20. 765 mls/hr IV .[id number] [facility] Rx#:[id number] Piperacillin-Tazobactam 3 100 100 .375 gm In Sodium Chloride 0.9% 100 ml @ 25 mls/hr IVPB Q8HR [facility] Rx# :[id number] propofoL 1,000 mg In 100.000 293.74 147.958 Empty Bag 1 bag @ 15 MCG/ KG/MIN 9.81 mls/hr IV . [id number] [facility] Rx#:[id number] Tube Feeding 20 TPN/PPN 385 105 Sodium Acetate 18 meq 385 105 Calcium Gluconate 1 gm Magnesium Sulfate gm 0.5 gm Sodium Phosphate 9 mmol In Amino Acids 5 %/ Dextrose 20 % 1,000 ml @ 35 mls/hr IV .BY DURATION [facility] Rx#:[id number] Other 30 Output: Gastric Drainage 150 Urine 2305 630 685 Other: Voiding Method Indwelling Catheter Indwelling Catheter Indwelling Catheter ABP, PAP, CO, CI - Last Documented Arterial Blood Pressure 131/53 - Exam GENERAL EXAM: Reveals 63-year-old white male intubated mechanically ventilated sedated HEAD: Normocephalic. EYES: Normal reaction of pupils, equal size. NOSE: Clear with pink turbinates. THROAT: No erythema or exudates. Endotracheal tube and orogastric tube are in tact. NECK: No masses, no JVD. CHEST: No chest wall deformity. LUNGS: Crackles at the bases no rhonchi no wheezes CVS: Regular rate and rhythm S1 and S2 normal with no audible murmur ABDOMEN: Soft nontender no megaly no rebound SKIN: No cyanosis CENTRAL NERVOUS SYSTEM: Could not assess patient is sedated and mechanically ventilated EXTREMITIES: Right foot wrapped with sterile dressing - Labs CBC & Chem 7: 05/05/24 05:07 05/05/24 05:07 Labs: Abnormal Lab Results - Last 24 Hours (Table) 05/04/24 05/04/24 05/04/24 Range/Units 13:17 18:03 18:15 RBC (4.30-5.90) m/uL Hgb (13.0-17.5) gm/dL Hct (39.0-53.0) % MCV (80.0-100.0) fL MCHC (31.0-37.0) g/dL RDW (11.5-15.5) % Lymphocytes # (Manual) (1.0-4.8) k/uL Eosinophils # (Manual) (0-0.7) k/uL Macrocytosis APTT 33.5 H 93.3 H (22.0-30.0) sec ABG pCO2 (35-45) mmHg ABG pO2 (83-108) mmHg ABG HCO3 (21-25) mmol/L ABG Total CO2 (19-24) mmol/L ABG O2 Saturation (94-97) % Sodium (137-145) mmol/L BUN (9-20) mg/dL Creatinine (0.66-1.25) mg/dL Glucose (74-99) mg/dL POC Glucose (mg/dL) 178 H (70-110) mg/dL Calcium (8.4-10.2) mg/dL Total Protein (6.3-8.2) g/dL Albumin (3.5-5.0) g/dL 05/05/24 05/05/24 05/05/24 Range/Units 00:29 01:20 05:05 RBC (4.30-5.90) m/uL Hgb (13.0-17.5) gm/dL Hct (39.0-53.0) % MCV (80.0-100.0) fL MCHC (31.0-37.0) g/dL RDW (11.5-15.5) % Lymphocytes # (Manual) (1.0-4.8) k/uL Eosinophils # (Manual) (0-0.7) k/uL Macrocytosis APTT 52.5 H (22.0-30.0) sec ABG pCO2 (35-45) mmHg ABG pO2 (83-108) mmHg ABG HCO3 (21-25) mmol/L ABG Total CO2 (19-24) mmol/L ABG O2 Saturation (94-97) % Sodium (137-145) mmol/L BUN (9-20) mg/dL Creatinine (0.66-1.25) mg/dL Glucose (74-99) mg/dL POC Glucose (mg/dL) 172 H 184 H (70-110) mg/dL Calcium (8.4-10.2) mg/dL Total Protein (6.3-8.2) g/dL Albumin (3.5-5.0) g/dL 05/05/24 05/05/24 05/05/24 Range/Units 05:07 05:07 05:07 RBC 2.48 L (4.30-5.90) m/uL Hgb 7.9 L (13.0-17.5) gm/dL Hct 26.5 L (39.0-53.0) % MCV 106.9 H (80.0-100.0) fL MCHC 30.0 L (31.0-37.0) g/dL RDW 23.7 H (11.5-15.5) % Lymphocytes # (Manual) 0.52 L (1.0-4.8) k/uL Eosinophils # (Manual) 0.85 H (0-0.7) k/uL Macrocytosis Marked A APTT 51.9 H (22.0-30.0) sec ABG pCO2 (35-45) mmHg ABG pO2 (83-108) mmHg ABG HCO3 (21-25) mmol/L ABG Total CO2 (19-24) mmol/L ABG O2 Saturation (94-97) % Sodium 135 L (137-145) mmol/L BUN 40 H (9-20) mg/dL Creatinine 1.83 H (0.66-1.25) mg/dL Glucose 166 H (74-99) mg/dL POC Glucose (mg/dL) (70-110) mg/dL Calcium 7.1 L (8.4-10.2) mg/dL Total Protein 4.6 L (6.3-8.2) g/dL Albumin 2.2 L (3.5-5.0) g/dL 05/05/24 05/05/24 Range/Units 05:12 11:31 RBC (4.30-5.90) m/uL Hgb (13.0-17.5) gm/dL Hct (39.0-53.0) % MCV (80.0-100.0) fL MCHC (31.0-37.0) g/dL RDW (11.5-15.5) % Lymphocytes # (Manual) (1.0-4.8) k/uL Eosinophils # (Manual) (0-0.7) k/uL Macrocytosis APTT (22.0-30.0) sec ABG pCO2 47 H (35-45) mmHg ABG pO2 123 H (83-108) mmHg ABG HCO3 26 H (21-25) mmol/L ABG Total CO2 27 H (19-24) mmol/L ABG O2 Saturation 100.2 H (94-97) % Sodium (137-145) mmol/L BUN (9-20) mg/dL Creatinine (0.66-1.25) mg/dL Glucose (74-99) mg/dL POC Glucose (mg/dL) 136 H (70-110) mg/dL Calcium (8.4-10.2) mg/dL Total Protein (6.3-8.2) g/dL Albumin (3.5-5.0) g/dL Assessment and Plan Assessment: Impression: Cardiac arrest requiring intubation mechanical ventilation patient had cardiac arrest before even having EGD/PEG tube placement according to the notes from clair car[facility]. 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 Acute on chronic stage IV kidney disease Acute blood loss anemia requiring 5 units of blood transfusion Electrolytes imbalance secondary to acute on chronic kidney disease Peripheral vessel occlusive disease and previous stenting of right SFA and right popliteal artery Severe pulmonary hypertension Paroxysmal atrial fibrillation, on anticoagulation therapy History of CVA with residual dysphagia requiring PEG tube placement Type 2 diabetes Cellulitis of right foot/diabetic foot ulcer Recommendation: Continue ventilatory support and address changes based on ABG on a daily basis. Continue antibiotics as per infectious disease on the case Continue amiodarone as per cardiology on the case Continue nutritional support/TPN at 73 cc/h, however since the patient has nasogastric tube in place, could consider enteral feeding for now. Hold on PEG tube placement for now Consult GI to evaluate since surgery has no plans in the near future to consider EGD/PEG tube placement on the note from surgery Continue heparin/anticoagulation for atrial fibrillation and DVT prophylaxis Continue GI prophylaxis Continue diuretics Lasix 40 mg IV push twice daily. Continue to monitor renal status closely Continue to monitor in ICU Patient is critically ill, Critical care is over 30 minutes Time with Patient: Greater than 30
--- NOTE | 2024-05-05 14:56 | P.PN ---
Subjective Progress Note Date: 05/05/24 CHIEF COMPLAINT: Pulled out PEG tube HISTORY OF PRESENT ILLNESS: Patient is currently in the ICU intubated and on mechanical ventilation after cardiopulmonary arrest after mild sedation given for EGD. Patient is currently off of the Levophed. He remains on heparin drip and propofol. He is receiving TPN for nutrition support. They are also giving him IV Lasix for fluid overload. Afebrile. WBC 6.5 Hgb 7.9 platelets 219 PHYSICAL EXAM: VITAL SIGNS: Reviewed. GENERAL: no acute distress. HEENT: No sclera icterus. Extraocular movements grossly intact. Moist buccal mucosa. Head is atraumatic, normocephalic. ABDOMEN: Soft. Nondistended. Nontender. NEUROLOGIC: Patient intubated and sedated ASSESSMENT: 1. Moderate protein calorie malnutrition 2. Dysphagia 3. Acute CHF 4. A-fib 5. Cardiomyopathy 6. Peripheral arterial disease with angioplasty and stent to the right lower extremity earlier in April 7. Diabetes mellitus 8. Anemia PLAN: -Due to patient's acute event, no future upper endoscopy with gastrostomy tube placement anticipated. -Continue ICU management -Continue supportive care Physician Scroll Saw Operator note has been reviewed by physician. Signing provider agrees with the documented findings, assessment, and plan of care. Objective - Vital Signs Vital signs: Vital Signs Temp 97.5 F L 05/05/24 12:00 Pulse 75 05/05/24 14:30 Resp 22 05/05/24 14:30 BP 103/60 05/05/24 14:30 Pulse Ox 99 05/05/24 14:30 FiO2 45 05/05/24 12:00 Intake & Output 05/04/24 05/05/24 05/05/24 18:59 06:59 18:59 Intake Total 426.607 5313.534 1755.019 Output Total 2305 780 985 Balance -1316.468 426.534 770.019 Weight 109 kg 109.4 kg 109.4 kg Intake: IV 30 293 221 0.9 KVO 160 80 Lactated Ringers 1,000 ml 120 @ 20 mls/hr IV .Q24H [facility] Rx#:[id number] Piperacillin-Tazobactam 3 100 .375 gm In Sodium Chloride 0.9% 100 ml @ 25 mls/hr IVPB Q8HR [facility] Rx# :[id number] pressure bag 30 33 21 Intake, IV Titration 958.532 297.402 6312.019 Amount Ampicillin-Sulbactam 3 gm 100 In Sodium Chloride 0.9% 100 ml @ 200 mls/hr IVPB Q8H [facility] Rx#:[id number] Heparin Sod,Pork in 0.45% 37.296 148.965 NaCl 25,000 unit In 0.45 % NaCl 1 250ml.bag @ 9.35 UNITS/KG/HR 9.995 mls/hr IV .Q24H [facility] Rx#: [id number] Lactated Ringers 1,000 ml 100 @ 20 mls/hr IV .Q24H [facility] Rx#:[id number] Mvi, Adult No.4 with Vit 1034 K 10 ml Trace (Conc-1Ml/ Dose) 1 ml Sodium Acetate 18 meq Calcium Gluconate 1 gm Magnesium Sulfate gm 0.5 gm Sodium Phosphate 9 mmol In Amino Acids 5 %/Dextrose 20 % 1,000 ml @ 35 mls/hr IV . BY DURATION [facility] Rx#: [id number] Mvi, Adult No.4 with Vit 475 K 10 ml Trace (Conc-1Ml/ Dose) 1 ml Sodium Acetate 18 meq Calcium Gluconate 1 gm Magnesium Sulfate gm 0.5 gm Sodium Phosphate 9 mmol In Amino Acids 5 %/Dextrose 20 % 1,000 ml @ 35 mls/hr IV . Q24H [facility] Rx#:[id number] Norepinephrine 4 mg In 46.236 85.829 Sodium Chloride 0.9% 250 ml @ 0.05 MCG/KG/MIN 20. 765 mls/hr IV .[id number] [facility] Rx#:[id number] Piperacillin-Tazobactam 3 100 100 .375 gm In Sodium Chloride 0.9% 100 ml @ 25 mls/hr IVPB Q8HR [facility] Rx# :[id number] propofoL 1,000 mg In 100.000 293.74 205.019 Empty Bag 1 bag @ 15 MCG/ KG/MIN 9.81 mls/hr IV . [id number] [facility] Rx#:[id number] Tube Feeding 60 TPN/PPN 385 105 Sodium Acetate 18 meq 385 105 Calcium Gluconate 1 gm Magnesium Sulfate gm 0.5 gm Sodium Phosphate 9 mmol In Amino Acids 5 %/ Dextrose 20 % 1,000 ml @ 35 mls/hr IV .BY DURATION [facility] Rx#:[id number] Other 30 Output: Gastric Drainage 150 Urine 2305 399 165 Other: Voiding Method Indwelling Catheter Indwelling Catheter Indwelling Catheter ABP, PAP, CO, CI - Last Documented Arterial Blood Pressure 114/48 - Labs CBC & Chem 7: 05/05/24 05:07 05/05/24 05:07 Labs: Abnormal Lab Results - Last 24 Hours (Table) 05/04/24 05/04/24 05/05/24 Range/Units 18:03 18:15 00:29 RBC (4.30-5.90) m/uL Hgb (13.0-17.5) gm/dL Hct (39.0-53.0) % MCV (80.0-100.0) fL MCHC (31.0-37.0) g/dL RDW (11.5-15.5) % Lymphocytes # (Manual) (1.0-4.8) k/uL Eosinophils # (Manual) (0-0.7) k/uL Macrocytosis APTT 93.3 H (22.0-30.0) sec ABG pCO2 (35-45) mmHg ABG pO2 (83-108) mmHg ABG HCO3 (21-25) mmol/L ABG Total CO2 (19-24) mmol/L ABG O2 Saturation (94-97) % Sodium (137-145) mmol/L BUN (9-20) mg/dL Creatinine (0.66-1.25) mg/dL Glucose (74-99) mg/dL POC Glucose (mg/dL) 178 H 172 H (70-110) mg/dL Calcium (8.4-10.2) mg/dL Total Protein (6.3-8.2) g/dL Albumin (3.5-5.0) g/dL 05/05/24 05/05/24 05/05/24 Range/Units 01:20 05:05 05:07 RBC (4.30-5.90) m/uL Hgb (13.0-17.5) gm/dL Hct (39.0-53.0) % MCV (80.0-100.0) fL MCHC (31.0-37.0) g/dL RDW (11.5-15.5) % Lymphocytes # (Manual) (1.0-4.8) k/uL Eosinophils # (Manual) (0-0.7) k/uL Macrocytosis APTT 52.5 H (22.0-30.0) sec ABG pCO2 (35-45) mmHg ABG pO2 (83-108) mmHg ABG HCO3 (21-25) mmol/L ABG Total CO2 (19-24) mmol/L ABG O2 Saturation (94-97) % Sodium 135 L (137-145) mmol/L BUN 40 H (9-20) mg/dL Creatinine 1.83 H (0.66-1.25) mg/dL Glucose 166 H (74-99) mg/dL POC Glucose (mg/dL) 184 H (70-110) mg/dL Calcium 7.1 L (8.4-10.2) mg/dL Total Protein 4.6 L (6.3-8.2) g/dL Albumin 2.2 L (3.5-5.0) g/dL 05/05/24 05/05/24 05/05/24 Range/Units 05:07 05:07 05:12 RBC 2.48 L (4.30-5.90) m/uL Hgb 7.9 L (13.0-17.5) gm/dL Hct 26.5 L (39.0-53.0) % MCV 106.9 H (80.0-100.0) fL MCHC 30.0 L (31.0-37.0) g/dL RDW 23.7 H (11.5-15.5) % Lymphocytes # (Manual) 0.52 L (1.0-4.8) k/uL Eosinophils # (Manual) 0.85 H (0-0.7) k/uL Macrocytosis Marked A APTT 51.9 H (22.0-30.0) sec ABG pCO2 47 H (35-45) mmHg ABG pO2 123 H (83-108) mmHg ABG HCO3 26 H (21-25) mmol/L ABG Total CO2 27 H (19-24) mmol/L ABG O2 Saturation 100.2 H (94-97) % Sodium (137-145) mmol/L BUN (9-20) mg/dL Creatinine (0.66-1.25) mg/dL Glucose (74-99) mg/dL POC Glucose (mg/dL) (70-110) mg/dL Calcium (8.4-10.2) mg/dL Total Protein (6.3-8.2) g/dL Albumin (3.5-5.0) g/dL 05/05/24 Range/Units 11:31 RBC (4.30-5.90) m/uL Hgb (13.0-17.5) gm/dL Hct (39.0-53.0) % MCV (80.0-100.0) fL MCHC (31.0-37.0) g/dL RDW (11.5-15.5) % Lymphocytes # (Manual) (1.0-4.8) k/uL Eosinophils # (Manual) (0-0.7) k/uL Macrocytosis APTT (22.0-30.0) sec ABG pCO2 (35-45) mmHg ABG pO2 (83-108) mmHg ABG HCO3 (21-25) mmol/L ABG Total CO2 (19-24) mmol/L ABG O2 Saturation (94-97) % Sodium (137-145) mmol/L BUN (9-20) mg/dL Creatinine (0.66-1.25) mg/dL Glucose (74-99) mg/dL POC Glucose (mg/dL) 136 H (70-110) mg/dL Calcium (8.4-10.2) mg/dL Total Protein (6.3-8.2) g/dL Albumin (3.5-5.0) g/dL
--- NOTE | 2024-05-05 15:16 | P.PN ---
Subjective Progress Note Date: 05/04/24 Principal diagnosis: Reason for follow-up is right foot wound and cellulitis Patient is a 63-year-old male with a past medical history significant for diabetes mellitus hypertension hyperlipidemia pneumonia CVA TIA COPD patient did have a right big toe amputation done by and was recently admitted to the hospital concerning for pain to the right foot and cold feeling patient has been diagnosed with PAD and is s/p peripheral intervention by interventional cardiology with angioplasty of SFA and right popliteal arteries however unsuccessful angioplasty of the right anterior tibial artery patient presented to hospital with weakness hypoxemia. Patient apparently has pulled out his PEG tube and also developed A-fib with RVR for the patient was transferred to telemetry floor on 04/30/2024atient apparently did have a bradycardia arrhythmia/arrest at the time of PEG tube placement which was put on hold patient was intubated and has been transferred to the ICU on 05/04/2024. On today's evaluation that is 05/04/2024, the patient continues to be afebrile, the patient is on ventilator FiO2 is currently at 50% no significant purulent secretions through the ET vomiting diarrhea and the change reported by the nursing staff Patient white count is 5.9 creatinine is 1.94 Objective - Vital Signs Vital signs: Vital Signs Temp 97.7 F 05/03/24 20:28 Pulse 119 H 05/04/24 03:12 Resp 18 05/04/24 03:12 BP 117/74 05/04/24 03:12 Pulse Ox 94 L 05/04/24 03:12 FiO2 50 05/04/24 11:15 Intake & Output 05/03/24 05/04/24 05/04/24 18:59 06:59 18:59 Intake Total 1054 303.423 17.059 Balance 1054 303.423 17.059 Weight 109 kg Intake: IV 20 20 Invasive Line 5 10 10 Invasive Line 7 10 10 Intake, IV Titration 1034 283.423 17.059 Amount Amiodarone 450 mg In 232.782 Dextrose 5% in Water 250 ml @ 0.5 MG/MIN 16.667 mls/hr IV .Q15H [facility] Rx#: [id number] Heparin Sod,Pork in 0.45% 50.641 0 NaCl 25,000 unit In 0.45 % NaCl 1 250ml.bag @ 9.35 UNITS/KG/HR 9.995 mls/hr IV .Q24H [facility] Rx#: [id number] Mvi, Adult No.4 with Vit 1034 K 10 ml Trace (Conc-1Ml/ Dose) 1 ml Sodium Acetate 18 meq Calcium Gluconate 1 gm Magnesium Sulfate gm 0.5 gm Sodium Phosphate 9 mmol In Amino Acids 5 %/Dextrose 20 % 1,000 ml @ 75 mls/hr IV . BY DURATION [facility] Rx#: [id number] propofoL 1,000 mg In 17.059 Empty Bag 1 bag @ 15 MCG/ KG/MIN 9.81 mls/hr IV . [id number] [facility] Rx#:[id number] Other: Voiding Method Urinal Urinal - Exam GENERAL DESCRIPTION: Middle-age male intubated on the vent RESPIRATORY SYSTEM: Unlabored breathing , decreased breath sounds at bases HEART: S1 S2 regular rate and rhythm , ABDOMEN: Soft , no tenderness EXTREMITIES: Right foot wound wound is currently dressed - Labs CBC & Chem 7: 05/05/24 05:07 05/05/24 05:07 Labs: Abnormal Lab Results - Last 24 Hours (Table) 05/03/24 05/03/24 05/03/24 Range/Units 16:54 19:13 19:13 RBC 2.85 L (4.30-5.90) m/uL Hgb 9.0 L (13.0-17.5) gm/dL Hct 31.5 L (39.0-53.0) % MCV 110.3 H (80.0-100.0) fL MCHC 28.7 L (31.0-37.0) g/dL RDW 24.3 H (11.5-15.5) % Lymphocytes # 0.8 L (1.0-4.8) k/uL Macrocytosis Marked A PT 13.0 H (10.0-12.5) sec INR 1.2 H (<1.2) ABG pH (7.35-7.45) ABG pCO2 (35-45) mmHg ABG pO2 (83-108) mmHg ABG HCO3 (21-25) mmol/L ABG Total CO2 (19-24) mmol/L ABG O2 Saturation (94-97) % Chloride (98-107) mmol/L BUN (9-20) mg/dL Creatinine (0.66-1.25) mg/dL Glucose (74-99) mg/dL POC Glucose (mg/dL) 159 H (70-110) mg/dL Calcium (8.4-10.2) mg/dL ALT (4-49) U/L Total Protein (6.3-8.2) g/dL Albumin (3.5-5.0) g/dL 05/03/24 05/03/24 05/04/24 Range/Units 20:06 23:57 05:49 RBC (4.30-5.90) m/uL Hgb (13.0-17.5) gm/dL Hct (39.0-53.0) % MCV (80.0-100.0) fL MCHC (31.0-37.0) g/dL RDW (11.5-15.5) % Lymphocytes # (1.0-4.8) k/uL Macrocytosis PT (10.0-12.5) sec INR (<1.2) ABG pH (7.35-7.45) ABG pCO2 (35-45) mmHg ABG pO2 (83-108) mmHg ABG HCO3 (21-25) mmol/L ABG Total CO2 (19-24) mmol/L ABG O2 Saturation (94-97) % Chloride (98-107) mmol/L BUN (9-20) mg/dL Creatinine (0.66-1.25) mg/dL Glucose (74-99) mg/dL POC Glucose (mg/dL) 130 H 166 H 170 H (70-110) mg/dL Calcium (8.4-10.2) mg/dL ALT (4-49) U/L Total Protein (6.3-8.2) g/dL Albumin (3.5-5.0) g/dL 05/04/24 05/04/24 05/04/24 Range/Units 06:11 06:11 06:11 RBC 2.77 L (4.30-5.90) m/uL Hgb 8.7 L (13.0-17.5) gm/dL Hct 30.4 L (39.0-53.0) % MCV 109.7 H (80.0-100.0) fL MCHC 28.8 L (31.0-37.0) g/dL RDW 24.3 H (11.5-15.5) % Lymphocytes # 0.7 L (1.0-4.8) k/uL Macrocytosis Marked A PT 13.0 H (10.0-12.5) sec INR 1.2 H (<1.2) ABG pH (7.35-7.45) ABG pCO2 (35-45) mmHg ABG pO2 (83-108) mmHg ABG HCO3 (21-25) mmol/L ABG Total CO2 (19-24) mmol/L ABG O2 Saturation (94-97) % Chloride 108 H (98-107) mmol/L BUN 37 H (9-20) mg/dL Creatinine 1.94 H (0.66-1.25) mg/dL Glucose 141 H (74-99) mg/dL POC Glucose (mg/dL) (70-110) mg/dL Calcium 7.5 L (8.4-10.2) mg/dL ALT 57 H (4-49) U/L Total Protein 5.4 L (6.3-8.2) g/dL Albumin 2.7 L (3.5-5.0) g/dL 05/04/24 05/04/24 05/04/24 Range/Units 08:58 09:52 11:38 RBC (4.30-5.90) m/uL Hgb (13.0-17.5) gm/dL Hct (39.0-53.0) % MCV (80.0-100.0) fL MCHC (31.0-37.0) g/dL RDW (11.5-15.5) % Lymphocytes # (1.0-4.8) k/uL Macrocytosis PT (10.0-12.5) sec INR (<1.2) ABG pH 7.26 L (7.35-7.45) ABG pCO2 58 H (35-45) mmHg ABG pO2 63 L (83-108) mmHg ABG HCO3 26 H (21-25) mmol/L ABG Total CO2 28 H (19-24) mmol/L ABG O2 Saturation 90.2 L (94-97) % Chloride (98-107) mmol/L BUN (9-20) mg/dL Creatinine (0.66-1.25) mg/dL Glucose (74-99) mg/dL POC Glucose (mg/dL) 216 H 270 H (70-110) mg/dL Calcium (8.4-10.2) mg/dL ALT (4-49) U/L Total Protein (6.3-8.2) g/dL Albumin (3.5-5.0) g/dL Assessment and Plan (1) Cellulitis of right foot Current Visit: No Status: Acute Code(s): L03.115 - CELLULITIS OF RIGHT LOWER LIMB SNOMED Code(s): 48297131480565031 (2) Diabetic foot ulcer Current Visit: No Status: Acute Code(s): E11.621 - TYPE 2 DIABETES MELLITUS WITH FOOT ULCER; L97.509 - NON-PRESSURE CHRONIC ULCER OTH PRT UNSP FOOT W UNSP SEVERITY SNOMED Code(s): 486242414 Plan: 1patient presenting to the hospital mostly with generalized weakness low O2 sats possibly underlying cardiac etiology for the patient being managed by cardiology, patient also have a 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 2patient is afebrile white count has been normal, 3-patient did have significant change in his clinical condition as he did have a cardiopulmonary arrest requiring intubation has been transferred the ICU sputum culture has been requested we will discontinue this and start the patient on Zosyn Dictation was produced using [employer] dictation software. please excuse any grammatical, word or spelling errors. Time with Patient: Less than 30
--- NOTE | 2024-05-05 15:17 | P.PN ---
Subjective Progress Note Date: 05/05/24 Principal diagnosis: Reason for follow-up is right foot wound and cellulitis Patient is a 63-year-old male with a past medical history significant for diabetes mellitus hypertension hyperlipidemia pneumonia CVA TIA COPD patient did have a right big toe amputation done by and was recently admitted to the hospital concerning for pain to the right foot and cold feeling patient has been diagnosed with PAD and is s/p peripheral intervention by interventional cardiology with angioplasty of SFA and right popliteal arteries however unsuccessful angioplasty of the right anterior tibial artery patient presented to hospital with weakness hypoxemia. Patient apparently has pulled out his PEG tube and also developed A-fib with RVR for the patient was transferred to telemetry floor on 04/30/2024atient apparently did have a bradycardia arrhythmia/arrest at the time of PEG tube placement which was put on hold patient was intubated and has been transferred to the ICU on 05/04/2024. On today's evaluation that is 05/05/2024, Patient is afebrile patient is current ly on on the ventilator FiO2 is down to 45% no significant purulent secretions through the ET or in the change reported by the nursing staff. Patient white count is 6.5 creatinine is 1.83 Objective - Vital Signs Vital signs: Vital Signs Temp 97.5 F L 05/05/24 12:00 Pulse 70 05/05/24 12:00 Resp 22 05/05/24 12:00 BP 113/63 05/05/24 10:00 Pulse Ox 100 05/05/24 12:00 FiO2 45 05/05/24 12:00 Intake & Output 05/04/24 05/05/24 05/05/24 18:59 06:59 18:59 Intake Total 299.188 1252.534 1591.958 Output Total 2305 780 685 Balance -1316.468 426.534 906.958 Weight 109 kg 109.4 kg 109.4 kg Intake: IV 30 293 155 0.9 KVO 160 60 Lactated Ringers 1,000 ml 80 @ 20 mls/hr IV .Q24H [facility] Rx#:[id number] Piperacillin-Tazobactam 3 100 .375 gm In Sodium Chloride 0.9% 100 ml @ 25 mls/hr IVPB Q8HR [facility] Rx# :[id number] pressure bag 30 33 15 Intake, IV Titration 958.532 456.320 4044.958 Amount Ampicillin-Sulbactam 3 gm 100 In Sodium Chloride 0.9% 100 ml @ 200 mls/hr IVPB Q8H [facility] Rx#:[id number] Heparin Sod,Pork in 0.45% 37.296 148.965 NaCl 25,000 unit In 0.45 % NaCl 1 250ml.bag @ 9.35 UNITS/KG/HR 9.995 mls/hr IV .Q24H [facility] Rx#: [id number] Lactated Ringers 1,000 ml 100 @ 20 mls/hr IV .Q24H [facility] Rx#:[id number] Mvi, Adult No.4 with Vit 1034 K 10 ml Trace (Conc-1Ml/ Dose) 1 ml Sodium Acetate 18 meq Calcium Gluconate 1 gm Magnesium Sulfate gm 0.5 gm Sodium Phosphate 9 mmol In Amino Acids 5 %/Dextrose 20 % 1,000 ml @ 35 mls/hr IV . BY DURATION [facility] Rx#: [id number] Mvi, Adult No.4 with Vit 475 K 10 ml Trace (Conc-1Ml/ Dose) 1 ml Sodium Acetate 18 meq Calcium Gluconate 1 gm Magnesium Sulfate gm 0.5 gm Sodium Phosphate 9 mmol In Amino Acids 5 %/Dextrose 20 % 1,000 ml @ 35 mls/hr IV . Q24H [facility] Rx#:[id number] Norepinephrine 4 mg In 46.236 85.829 Sodium Chloride 0.9% 250 ml @ 0.05 MCG/KG/MIN 20. 765 mls/hr IV .[id number] [facility] Rx#:[id number] Piperacillin-Tazobactam 3 100 100 .375 gm In Sodium Chloride 0.9% 100 ml @ 25 mls/hr IVPB Q8HR [facility] Rx# :[id number] propofoL 1,000 mg In 100.000 293.74 147.958 Empty Bag 1 bag @ 15 MCG/ KG/MIN 9.81 mls/hr IV . [id number] [facility] Rx#:[id number] Tube Feeding 20 TPN/PPN 385 105 Sodium Acetate 18 meq 385 105 Calcium Gluconate 1 gm Magnesium Sulfate gm 0.5 gm Sodium Phosphate 9 mmol In Amino Acids 5 %/ Dextrose 20 % 1,000 ml @ 35 mls/hr IV .BY DURATION [facility] Rx#:[id number] Other 30 Output: Gastric Drainage 150 Urine 2305 130 095 Other: Voiding Method Indwelling Catheter Indwelling Catheter Indwelling Catheter ABP, PAP, CO, CI - Last Documented Arterial Blood Pressure 131/53 - Exam GENERAL DESCRIPTION: Middle-age male intubated on the vent RESPIRATORY SYSTEM: Unlabored breathing , decreased breath sounds at bases HEART: S1 S2 regular rate and rhythm , ABDOMEN: Soft , no tenderness EXTREMITIES: Right foot wound wound is currently dressed - Labs CBC & Chem 7: 05/05/24 05:07 05/05/24 05:07 Labs: Abnormal Lab Results - Last 24 Hours (Table) 05/04/24 05/04/24 05/04/24 Range/Units 13:17 18:03 18:15 RBC (4.30-5.90) m/uL Hgb (13.0-17.5) gm/dL Hct (39.0-53.0) % MCV (80.0-100.0) fL MCHC (31.0-37.0) g/dL RDW (11.5-15.5) % Lymphocytes # (Manual) (1.0-4.8) k/uL Eosinophils # (Manual) (0-0.7) k/uL Macrocytosis APTT 33.5 H 93.3 H (22.0-30.0) sec ABG pCO2 (35-45) mmHg ABG pO2 (83-108) mmHg ABG HCO3 (21-25) mmol/L ABG Total CO2 (19-24) mmol/L ABG O2 Saturation (94-97) % Sodium (137-145) mmol/L BUN (9-20) mg/dL Creatinine (0.66-1.25) mg/dL Glucose (74-99) mg/dL POC Glucose (mg/dL) 178 H (70-110) mg/dL Calcium (8.4-10.2) mg/dL Total Protein (6.3-8.2) g/dL Albumin (3.5-5.0) g/dL 05/05/24 05/05/24 05/05/24 Range/Units 00:29 01:20 05:05 RBC (4.30-5.90) m/uL Hgb (13.0-17.5) gm/dL Hct (39.0-53.0) % MCV (80.0-100.0) fL MCHC (31.0-37.0) g/dL RDW (11.5-15.5) % Lymphocytes # (Manual) (1.0-4.8) k/uL Eosinophils # (Manual) (0-0.7) k/uL Macrocytosis APTT 52.5 H (22.0-30.0) sec ABG pCO2 (35-45) mmHg ABG pO2 (83-108) mmHg ABG HCO3 (21-25) mmol/L ABG Total CO2 (19-24) mmol/L ABG O2 Saturation (94-97) % Sodium (137-145) mmol/L BUN (9-20) mg/dL Creatinine (0.66-1.25) mg/dL Glucose (74-99) mg/dL POC Glucose (mg/dL) 172 H 184 H (70-110) mg/dL Calcium (8.4-10.2) mg/dL Total Protein (6.3-8.2) g/dL Albumin (3.5-5.0) g/dL 05/05/24 05/05/24 05/05/24 Range/Units 05:07 05:07 05:07 RBC 2.48 L (4.30-5.90) m/uL Hgb 7.9 L (13.0-17.5) gm/dL Hct 26.5 L (39.0-53.0) % MCV 106.9 H (80.0-100.0) fL MCHC 30.0 L (31.0-37.0) g/dL RDW 23.7 H (11.5-15.5) % Lymphocytes # (Manual) 0.52 L (1.0-4.8) k/uL Eosinophils # (Manual) 0.85 H (0-0.7) k/uL Macrocytosis Marked A APTT 51.9 H (22.0-30.0) sec ABG pCO2 (35-45) mmHg ABG pO2 (83-108) mmHg ABG HCO3 (21-25) mmol/L ABG Total CO2 (19-24) mmol/L ABG O2 Saturation (94-97) % Sodium 135 L (137-145) mmol/L BUN 40 H (9-20) mg/dL Creatinine 1.83 H (0.66-1.25) mg/dL Glucose 166 H (74-99) mg/dL POC Glucose (mg/dL) (70-110) mg/dL Calcium 7.1 L (8.4-10.2) mg/dL Total Protein 4.6 L (6.3-8.2) g/dL Albumin 2.2 L (3.5-5.0) g/dL 05/05/24 05/05/24 Range/Units 05:12 11:31 RBC (4.30-5.90) m/uL Hgb (13.0-17.5) gm/dL Hct (39.0-53.0) % MCV (80.0-100.0) fL MCHC (31.0-37.0) g/dL RDW (11.5-15.5) % Lymphocytes # (Manual) (1.0-4.8) k/uL Eosinophils # (Manual) (0-0.7) k/uL Macrocytosis APTT (22.0-30.0) sec ABG pCO2 47 H (35-45) mmHg ABG pO2 123 H (83-108) mmHg ABG HCO3 26 H (21-25) mmol/L ABG Total CO2 27 H (19-24) mmol/L ABG O2 Saturation 100.2 H (94-97) % Sodium (137-145) mmol/L BUN (9-20) mg/dL Creatinine (0.66-1.25) mg/dL Glucose (74-99) mg/dL POC Glucose (mg/dL) 136 H (70-110) mg/dL Calcium (8.4-10.2) mg/dL Total Protein (6.3-8.2) g/dL Albumin (3.5-5.0) g/dL Assessment and Plan (1) Cellulitis of right foot Current Visit: No Status: Acute Code(s): L03.115 - CELLULITIS OF RIGHT LOWER LIMB SNOMED Code(s): 28008361953357361 (2) Diabetic foot ulcer Current Visit: No Status: Acute Code(s): E11.621 - TYPE 2 DIABETES MELLITUS WITH FOOT ULCER; L97.509 - NON-PRESSURE CHRONIC ULCER OTH PRT UNSP FOOT W UNSP SEVERITY SNOMED Code(s): 878622328 Plan: 1patient presenting to the hospital mostly with generalized weakness low O2 sats possibly underlying cardiac etiology for the patient being managed by cardiology, patient also have a 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 2patient is afebrile white count has been normal, 3-patient did have significant change in his clinical condition as he did have a cardiopulmonary arrest requiring intubation has been admitted to the ICU 4sputum culture requested results will be followed continue with the [employer] Dictation was produced using [employer] dictation software. please excuse any grammatical, word or spelling errors. Time with Patient: Less than 30
[2024-05-05 17:12] LABS: Glucose,Whole Blood 103 mg/dL (70-110)
--- NOTE | 2024-05-05 18:57 | P.PN ---
Subjective Progress Note Date: 05/05/24 Principal diagnosis: Hypoxia, CAMILA Pt remains intubated and sedated. Objective - Vital Signs Vital signs: Vital Signs Temp 97.5 F L 05/05/24 10:00 Pulse 70 05/05/24 10:00 Resp 22 05/05/24 10:00 BP 113/63 05/05/24 10:00 Pulse Ox 99 05/05/24 10:00 FiO2 50 05/05/24 08:00 Intake & Output 05/04/24 05/05/24 05/05/24 18:59 06:59 18:59 Intake Total 094.096 2230.534 325.828 Output Total 2305 780 250 Balance -1316.468 426.534 75.828 Weight 109 kg 109.4 kg Intake: IV 30 293 89 0.9 KVO 160 40 Lactated Ringers 1,000 ml 40 @ 20 mls/hr IV .Q24H [facility] Rx#:[id number] Piperacillin-Tazobactam 3 100 .375 gm In Sodium Chloride 0.9% 100 ml @ 25 mls/hr IVPB Q8HR [facility] Rx# :[id number] pressure bag 30 33 9 Intake, IV Titration 958.532 528.534 131.828 Amount Ampicillin-Sulbactam 3 gm 100 In Sodium Chloride 0.9% 100 ml @ 200 mls/hr IVPB Q8H [facility] Rx#:[id number] Heparin Sod,Pork in 0.45% 37.296 148.965 NaCl 25,000 unit In 0.45 % NaCl 1 250ml.bag @ 9.35 UNITS/KG/HR 9.995 mls/hr IV .Q24H [facility] Rx#: [id number] Lactated Ringers 1,000 ml 100 @ 20 mls/hr IV .Q24H [facility] Rx#:[id number] Mvi, Adult No.4 with Vit 475 K 10 ml Trace (Conc-1Ml/ Dose) 1 ml Sodium Acetate 18 meq Calcium Gluconate 1 gm Magnesium Sulfate gm 0.5 gm Sodium Phosphate 9 mmol In Amino Acids 5 %/Dextrose 20 % 1,000 ml @ 35 mls/hr IV . Q24H [facility] Rx#:[id number] Norepinephrine 4 mg In 46.236 85.829 Sodium Chloride 0.9% 250 ml @ 0.05 MCG/KG/MIN 20. 765 mls/hr IV .[id number] [facility] Rx#:[id number] Piperacillin-Tazobactam 3 100 .375 gm In Sodium Chloride 0.9% 100 ml @ 25 mls/hr IVPB Q8HR [facility] Rx# :[id number] propofoL 1,000 mg In 100.000 293.74 131.828 Empty Bag 1 bag @ 15 MCG/ KG/MIN 9.81 mls/hr IV . [id number] [facility] Rx#:[id number] TPN/PPN 385 105 Sodium Acetate 18 meq 385 105 Calcium Gluconate 1 gm Magnesium Sulfate gm 0.5 gm Sodium Phosphate 9 mmol In Amino Acids 5 %/ Dextrose 20 % 1,000 ml @ 35 mls/hr IV .BY DURATION [facility] Rx#:[id number] Output: Gastric Drainage 150 Urine 2305 630 250 Other: Voiding Method Indwelling Catheter Indwelling Catheter Indwelling Catheter ABP, PAP, CO, CI - Last Documented Arterial Blood Pressure 137/58 - Constitutional General appearance: Present: average body habitus, no acute distress - Respiratory Details: mechanically ventilated - Peripheral edema leg Peripheral Edema: bilateral: None - Psychiatric Psychiatric: Absent: A&O x's 3, appropriate affect, intact judgment & insight - Labs CBC & Chem 7: 05/05/24 05:07 05/05/24 05:07 Labs: Abnormal Lab Results - Last 24 Hours (Table) 05/04/24 05/04/24 05/04/24 Range/Units 11:38 13:17 18:03 RBC (4.30-5.90) m/uL Hgb (13.0-17.5) gm/dL Hct (39.0-53.0) % MCV (80.0-100.0) fL MCHC (31.0-37.0) g/dL RDW (11.5-15.5) % Lymphocytes # (Manual) (1.0-4.8) k/uL Eosinophils # (Manual) (0-0.7) k/uL Macrocytosis APTT 33.5 H (22.0-30.0) sec ABG pCO2 (35-45) mmHg ABG pO2 (83-108) mmHg ABG HCO3 (21-25) mmol/L ABG Total CO2 (19-24) mmol/L ABG O2 Saturation (94-97) % Sodium (137-145) mmol/L BUN (9-20) mg/dL Creatinine (0.66-1.25) mg/dL Glucose (74-99) mg/dL POC Glucose (mg/dL) 270 H 178 H (70-110) mg/dL Calcium (8.4-10.2) mg/dL Total Protein (6.3-8.2) g/dL Albumin (3.5-5.0) g/dL 05/04/24 05/05/24 05/05/24 Range/Units 18:15 00:29 01:20 RBC (4.30-5.90) m/uL Hgb (13.0-17.5) gm/dL Hct (39.0-53.0) % MCV (80.0-100.0) fL MCHC (31.0-37.0) g/dL RDW (11.5-15.5) % Lymphocytes # (Manual) (1.0-4.8) k/uL Eosinophils # (Manual) (0-0.7) k/uL Macrocytosis APTT 93.3 H 52.5 H (22.0-30.0) sec ABG pCO2 (35-45) mmHg ABG pO2 (83-108) mmHg ABG HCO3 (21-25) mmol/L ABG Total CO2 (19-24) mmol/L ABG O2 Saturation (94-97) % Sodium (137-145) mmol/L BUN (9-20) mg/dL Creatinine (0.66-1.25) mg/dL Glucose (74-99) mg/dL POC Glucose (mg/dL) 172 H (70-110) mg/dL Calcium (8.4-10.2) mg/dL Total Protein (6.3-8.2) g/dL Albumin (3.5-5.0) g/dL 05/05/24 05/05/24 05/05/24 Range/Units 05:05 05:07 05:07 RBC 2.48 L (4.30-5.90) m/uL Hgb 7.9 L (13.0-17.5) gm/dL Hct 26.5 L (39.0-53.0) % MCV 106.9 H (80.0-100.0) fL MCHC 30.0 L (31.0-37.0) g/dL RDW 23.7 H (11.5-15.5) % Lymphocytes # (Manual) 0.52 L (1.0-4.8) k/uL Eosinophils # (Manual) 0.85 H (0-0.7) k/uL Macrocytosis Marked A APTT (22.0-30.0) sec ABG pCO2 (35-45) mmHg ABG pO2 (83-108) mmHg ABG HCO3 (21-25) mmol/L ABG Total CO2 (19-24) mmol/L ABG O2 Saturation (94-97) % Sodium 135 L (137-145) mmol/L BUN 40 H (9-20) mg/dL Creatinine 1.83 H (0.66-1.25) mg/dL Glucose 166 H (74-99) mg/dL POC Glucose (mg/dL) 184 H (70-110) mg/dL Calcium 7.1 L (8.4-10.2) mg/dL Total Protein 4.6 L (6.3-8.2) g/dL Albumin 2.2 L (3.5-5.0) g/dL 05/05/24 05/05/24 Range/Units 05:07 05:12 RBC (4.30-5.90) m/uL Hgb (13.0-17.5) gm/dL Hct (39.0-53.0) % MCV (80.0-100.0) fL MCHC (31.0-37.0) g/dL RDW (11.5-15.5) % Lymphocytes # (Manual) (1.0-4.8) k/uL Eosinophils # (Manual) (0-0.7) k/uL Macrocytosis APTT 51.9 H (22.0-30.0) sec ABG pCO2 47 H (35-45) mmHg ABG pO2 123 H (83-108) mmHg ABG HCO3 26 H (21-25) mmol/L ABG Total CO2 27 H (19-24) mmol/L ABG O2 Saturation 100.2 H (94-97) % Sodium (137-145) mmol/L BUN (9-20) mg/dL Creatinine (0.66-1.25) mg/dL Glucose (74-99) mg/dL POC Glucose (mg/dL) (70-110) mg/dL Calcium (8.4-10.2) mg/dL Total Protein (6.3-8.2) g/dL Albumin (3.5-5.0) g/dL Assessment and Plan (1) Anemia Current Visit: Yes Status: Acute Priority: High Code(s): D64.9 - ANEMIA, UNSPECIFIED SNOMED Code(s): 982531576 (2) Hypoxia Current Visit: Yes Status: Acute Priority: High Code(s): R09.02 - HYPOX EMIA SNOMED Code(s): 049332294 Plan: Macrocytic anemia -Acute onset. S/P 5 units PRBCs. Hgb stable today at 7.9 -No gross bleeding reported by Nursing. Workup for hemolysis neg. 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 Bleeding exacerbated by antiplatelet therapy and anticoagulation. Marrow suppression from acute illness also contributing. -Pt on heparin drip currently, Hgb stable -Pt has received IV iron x 3-this was reviewed with ID prior to administration. Started on ADAN by Nephrology -Clinic f/u in 6 weeks to recheck Hgb and iron studies. Additional parenteral iron as indicated Doctor attests: I performed a history and physical examination of this patient, developed impression and plan of care. Discussed with dictator. I agree with dictators note, documented as a scribe.
--- NOTE | 2024-05-05 21:01 | P.PN ---
Subjective Progress Note Date: 05/04/24 This is a 63-year-old gentleman with extensive past medical history consistent of peripheral arterial disease as well as atrial fibrillation likely to be permanent as well as multiple comorbid conditions including recent diagnosis of cardiomyopathy and hypertension and dyslipidemia and diabetes and anemia was admitted to the hospital with shortness of breath. The patient recently had a stroke and apparently he cannot swallow. He has not been taking his oral medication and for that reason he went into A-fib with RVR and he was started on Cardizem IV. Eliquis was on hold because of anemia and also possible having PEG tube this coming Thursday May 02, 2024 The patient was seen and evaluated this morning with he is breathing has improved. His hypoxemia has improved as well. No symptoms of chest pain or chest discomfort. He continues to be in atrial fibrillation with controlled heart rate on the current dose of Cardizem IV. He is not on anticoagulation for the above reason. His mentation has improved significantly as well. He seems to be overall euvolemic on examination as well. Examination is remarkable for irregular rhythm with controlled heart rate and clear breathing sounds bila terally and mild bilateral lower extremities edema May 03, 2024 The patient was seen and evaluated this morning. His mentation has somewhat improved compared to before. His pressure has been marginally low and his creatinine is slightly increased compared to yesterday. Currently he is on Cardizem IV which I am going to stop and start the patient on amiodarone IV. Beside that he is not on any blood pressure medications. Anticoagulation is on hold at this point in the process of having a break tube placed tomorrow. No symptoms of chest pain or chest discomfort. Examination is remarkable for irregular rhythm with overall controlled heart rate and scattered bilateral rhonchi. May 04, 2024 Patient seen and examined at bedside. Patient was scheduled for a PEG tube placement yesterday. Before initiating the procedure patient had a asystole cardiac arrest requiring brief CPR and epinephrine. Patient had atrial fibrillation with uncontrolled rate after achieving ROSC. He is maintained on vent support Examination S1-S2 is audible, mild systolic murmur audible, irregular pulse On vent support, ET tube in place, good air entry in bilateral lung layton, mild crackles 1+ edema bilateral lower extremity Detailed neuroexam was not performed Assessment Asystole cardiac arrest, likely due to excessive amiodarone use. Change in mental status which has improved Hypoxemia which has improved Shortness of breath which has improved Atrial fibrillation with controlled heart rate on the current dose of Cardizem IV History of permanent atrial fibrillation Marginally low blood pressure Acute on chronic renal failure Multiple comorbid conditions including anemia Plan Discontinue amiodarone drip and Cardizem drip. Continue amiodarone 200 mg daily Resume IV heparin drip. Objective - Vital Signs Vital signs: Vital Signs Temp 98.2 F 05/05/24 20:00 Pulse 87 05/05/24 20:53 Resp 18 05/05/24 20:30 BP 110/61 05/05/24 20:30 Pulse Ox 99 05/05/24 20:30 FiO2 45 05/05/24 20:40 Intake & Output 05/05/24 05/05/24 05/06/24 06:59 18:59 06:59 Intake Total 7344.195 3913.019 226 Output Total 780 1735 400 Balance 426.534 362.019 -174 Weight 109.4 kg 109.4 kg Intake: IV 293 353 156 0.9 KVO 160 120 10 Lactated Ringers 1,000 ml 200 40 @ 20 mls/hr IV .Q24H [facility] Rx#:[id number] Piperacillin-Tazobactam 3 100 100 .375 gm In Sodium Chloride 0.9% 100 ml @ 25 mls/hr IVPB Q8HR [facility] Rx# :[id number] pressure bag 33 33 6 Intake, IV Titration 485.995 8575.019 Amount Heparin Sod,Pork in 0.45% 148.965 NaCl 25,000 unit In 0.45 % NaCl 1 250ml.bag @ 9.35 UNITS/KG/HR 9.995 mls/hr IV .Q24H [facility] Rx#: [id number] Mvi, Adult No.4 with Vit 1034 K 10 ml Trace (Conc-1Ml/ Dose) 1 ml Sodium Acetate 18 meq Calcium Gluconate 1 gm Magnesium Sulfate gm 0.5 gm Sodium Phosphate 9 mmol In Amino Acids 5 %/Dextrose 20 % 1,000 ml @ 35 mls/hr IV . BY DURATION [facility] Rx#: [id number] Norepinephrine 4 mg In 85.829 Sodium Chloride 0.9% 250 ml @ 0.05 MCG/KG/MIN 20. 765 mls/hr IV .[id number] [facility] Rx#:[id number] Piperacillin-Tazobactam 3 100 .375 gm In Sodium Chloride 0.9% 100 ml @ 25 mls/hr IVPB Q8HR [facility] Rx# :[id number] propofoL 1,000 mg In 293.74 305.019 Empty Bag 1 bag @ 15 MCG/ KG/MIN 9.81 mls/hr IV . [id number] [facility] Rx#:[id number] Tube Feeding 140 40 TPN/PPN 385 105 Sodium Acetate 18 meq 385 105 Calcium Gluconate 1 gm Magnesium Sulfate gm 0.5 gm Sodium Phosphate 9 mmol In Amino Acids 5 %/ Dextrose 20 % 1,000 ml @ 35 mls/hr IV .BY DURATION [facility] Rx#:[id number] Other 60 30 Output: Gastric Drainage 150 150 Urine 630 1585 400 Other: Voiding Method Indwelling Catheter Indwelling Catheter ABP, PAP, CO, CI - Last Documented Arterial Blood Pressure 126/49 - Labs CBC & Chem 7: 05/05/24 05:07 05/05/24 05:07 Labs: Abnormal Lab Results - Last 24 Hours (Table) 05/05/24 05/05/24 05/05/24 Range/Units 00:29 01:20 05:05 RBC (4.30-5.90) m/uL Hgb (13.0-17.5) gm/dL Hct (39.0-53.0) % MCV (80.0-100.0) fL MCHC (31.0-37.0) g/dL RDW (11.5-15.5) % Lymphocytes # (Manual) (1.0-4.8) k/uL Eosinophils # (Manual) (0-0.7) k/uL Macrocytosis APTT 52.5 H (22.0-30.0) sec ABG pCO2 (35-45) mmHg ABG pO2 (83-108) mmHg ABG HCO3 (21-25) mmol/L ABG Total CO2 (19-24) mmol/L ABG O2 Saturation (94-97) % Sodium (137-145) mmol/L BUN (9-20) mg/dL Creatinine (0.66-1.25) mg/dL Glucose (74-99) mg/dL POC Glucose (mg/dL) 172 H 184 H (70-110) mg/dL Calcium (8.4-10.2) mg/dL Total Protein (6.3-8.2) g/dL Albumin (3.5-5.0) g/dL 05/05/24 05/05/24 05/05/24 Range/Units 05:07 05:07 05:07 RBC 2.48 L (4.30-5.90) m/uL Hgb 7.9 L (13.0-17.5) gm/dL Hct 26.5 L (39.0-53.0) % MCV 106.9 H (80.0-100.0) fL MCHC 30.0 L (31.0-37.0) g/dL RDW 23.7 H (11.5-15.5) % Lymphocytes # (Manual) 0.52 L (1.0-4.8) k/uL Eosinophils # (Manual) 0.85 H (0-0.7) k/uL Macrocytosis Marked A APTT 51.9 H (22.0-30.0) sec ABG pCO2 (35-45) mmHg ABG pO2 (83-108) mmHg ABG HCO3 (21-25) mmol/L ABG Total CO2 (19-24) mmol/L ABG O2 Saturation (94-97) % Sodium 135 L (137-145) mmol/L BUN 40 H (9-20) mg/dL Creatinine 1.83 H (0.66-1.25) mg/dL Glucose 166 H (74-99) mg/dL POC Glucose (mg/dL) (70-110) mg/dL Calcium 7.1 L (8.4-10.2) mg/dL Total Protein 4.6 L (6.3-8.2) g/dL Albumin 2.2 L (3.5-5.0) g/dL 05/05/24 05/05/24 Range/Units 05:12 11:31 RBC (4.30-5.90) m/uL Hgb (13.0-17.5) gm/dL Hct (39.0-53.0) % MCV (80.0-100.0) fL MCHC (31.0-37.0) g/dL RDW (11.5-15.5) % Lymphocytes # (Manual) (1.0-4.8) k/uL Eosinophils # (Manual) (0-0.7) k/uL Macrocytosis APTT (22.0-30.0) sec ABG pCO2 47 H (35-45) mmHg ABG pO2 123 H (83-108) mmHg ABG HCO3 26 H (21-25) mmol/L ABG Total CO2 27 H (19-24) mmol/L ABG O2 Saturation 100.2 H (94-97) % Sodium (137-145) mmol/L BUN (9-20) mg/dL Creatinine (0.66-1.25) mg/dL Glucose (74-99) mg/dL POC Glucose (mg/dL) 136 H (70-110) mg/dL Calcium (8.4-10.2) mg/dL Total Protein (6.3-8.2) g/dL Albumin (3.5-5.0) g/dL
--- NOTE | 2024-05-05 21:05 | P.PN ---
Subjective Progress Note Date: 05/05/24 This is a 63-year-old gentleman with extensive past medical history consistent of peripheral arterial disease as well as atrial fibrillation likely to be permanent as well as multiple comorbid conditions including recent diagnosis of cardiomyopathy and hypertension and dyslipidemia and diabetes and anemia was admitted to the hospital with shortness of breath. The patient recently had a stroke and apparently he cannot swallow. He has not been taking his oral medication and for that reason he went into A-fib with RVR and he was started on Cardizem IV. Eliquis was on hold because of anemia and also possible having PEG tube this coming Thursday May 02, 2024 The patient was seen and evaluated this morning with he is breathing has improved. His hypoxemia has improved as well. No symptoms of chest pain or chest discomfort. He continues to be in atrial fibrillation with controlled heart rate on the current dose of Cardizem IV. He is not on anticoagulation for the above reason. His mentation has improved significantly as well. He seems to be overall euvolemic on examination as well. Examination is remarkable for irregular rhythm with controlled heart rate and clear breathing sounds bila terally and mild bilateral lower extremities edema May 03, 2024 The patient was seen and evaluated this morning. His mentation has somewhat improved compared to before. His pressure has been marginally low and his creatinine is slightly increased compared to yesterday. Currently he is on Cardizem IV which I am going to stop and start the patient on amiodarone IV. Beside that he is not on any blood pressure medications. Anticoagulation is on hold at this point in the process of having a break tube placed tomorrow. No symptoms of chest pain or chest discomfort. Examination is remarkable for irregular rhythm with overall controlled heart rate and scattered bilateral rhonchi. May 04, 2024 Patient seen and examined at bedside. Patient was scheduled for a PEG tube placement yesterday. Before initiating the procedure patient had a asystole cardiac arrest requiring brief CPR and epinephrine. Patient had atrial fibrillation with uncontrolled rate after achieving ROSC. He is maintained on vent support May 05, 2024 Patient is seen and examined at bedside this a.m. He is maintained on vent support. No further concerns of blocks noticed on telemetry. He is maintained in rate control atrial fibrillation. Examination S1-S2 is audible, mild systolic murmur audible, irregular pulse On vent support, ET tube in place, good air entry in bilateral lung layton, mild crackles 1+ edema bilateral lower extremity Detailed neuroexam was not performed Assessment Asystole cardiac arrest, likely due to excessive amiodarone use. Change in mental status which has improved Hypoxemia which has improved Shortness of breath which has improved Atrial fibrillation with controlled heart rate on the current dose of Cardizem IV History of permanent atrial fibrillation Marginally low blood pressure Acute on chronic renal failure Multiple comorbid conditions including anemia Plan Continue amiodarone 200 mg daily Continue metoprolol Avoid using any IV pushes of amiodarone Continue IV heparin drip. Okay to proceed with PEG tube placement if needed. Okay to hold IV heparin 4 hours prior to the procedure. Objective - Vital Signs Vital signs: Vital Signs Temp 98.2 F 05/05/24 20:00 Pulse 87 05/05/24 20:53 Resp 18 05/05/24 20:30 BP 110/61 05/05/24 20:30 Pulse Ox 99 05/05/24 20:30 FiO2 45 05/05/24 20:40 Intake & Output 05/05/24 05/05/24 05/06/24 06:59 18:59 06:59 Intake Total 7714.860 2673.019 226 Output Total 780 1735 400 Balance 426.534 362.019 -174 Weight 109.4 kg 109.4 kg Intake: IV 293 353 156 0.9 KVO 160 120 10 Lactated Ringers 1,000 ml 200 40 @ 20 mls/hr IV .Q24H [facility] Rx#:[id number] Piperacillin-Tazobactam 3 100 100 .375 gm In Sodium Chloride 0.9% 100 ml @ 25 mls/hr IVPB Q8HR [facility] Rx# :[id number] pressure bag 33 33 6 Intake, IV Titration 870.242 1281.019 Amount Heparin Sod,Pork in 0.45% 148.965 NaCl 25,000 unit In 0.45 % NaCl 1 250ml.bag @ 9.35 UNITS/KG/HR 9.995 mls/hr IV .Q24H [facility] Rx#: [id number] Mvi, Adult No.4 with Vit 1034 K 10 ml Trace (Conc-1Ml/ Dose) 1 ml Sodium Acetate 18 meq Calcium Gluconate 1 gm Magnesium Sulfate gm 0.5 gm Sodium Phosphate 9 mmol In Amino Acids 5 %/Dextrose 20 % 1,000 ml @ 35 mls/hr IV . BY DURATION [facility] Rx#: [id number] Norepinephrine 4 mg In 85.829 Sodium Chloride 0.9% 250 ml @ 0.05 MCG/KG/MIN 20. 765 mls/hr IV .[id number] [facility] Rx#:[id number] Piperacillin-Tazobactam 3 100 .375 gm In Sodium Chloride 0.9% 100 ml @ 25 mls/hr IVPB Q8HR [facility] Rx# :[id number] propofoL 1,000 mg In 293.74 305.019 Empty Bag 1 bag @ 15 MCG/ KG/MIN 9.81 mls/hr IV . [id number] [facility] Rx#:[id number] Tube Feeding 140 40 TPN/PPN 385 105 Sodium Acetate 18 meq 385 105 Calcium Gluconate 1 gm Magnesium Sulfate gm 0.5 gm Sodium Phosphate 9 mmol In Amino Acids 5 %/ Dextrose 20 % 1,000 ml @ 35 mls/hr IV .BY DURATION [facility] Rx#:[id number] Other 60 30 Output: Gastric Drainage 150 150 Urine 630 1585 400 Other: Voiding Method Indwelling Catheter Indwelling Catheter ABP, PAP, CO, CI - Last Documented Arterial Blood Pressure 126/49 - Labs CBC & Chem 7: 05/05/24 05:07 05/05/24 05:07 Labs: Abnormal Lab Results - Last 24 Hours (Table) 05/05/24 05/05/24 05/05/24 Range/Units 00:29 01:20 05:05 RBC (4.30-5.90) m/uL Hgb (13.0-17.5) gm/dL Hct (39.0-53.0) % MCV (80.0-100.0) fL MCHC (31.0-37.0) g/dL RDW (11.5-15.5) % Lymphocytes # (Manual) (1.0-4.8) k/uL Eosinophils # (Manual) (0-0.7) k/uL Macrocytosis APTT 52.5 H (22.0-30.0) sec ABG pCO2 (35-45) mmHg ABG pO2 (83-108) mmHg ABG HCO3 (21-25) mmol/L ABG Total CO2 (19-24) mmol/L ABG O2 Saturation (94-97) % Sodium (137-145) mmol/L BUN (9-20) mg/dL Creatinine (0.66-1.25) mg/dL Glucose (74-99) mg/dL POC Glucose (mg/dL) 172 H 184 H (70-110) mg/dL Calcium (8.4-10.2) mg/dL Total Protein (6.3-8.2) g/dL Albumin (3.5-5.0) g/dL 05/05/24 05/05/24 05/05/24 Range/Units 05:07 05:07 05:07 RBC 2.48 L (4.30-5.90) m/uL Hgb 7.9 L (13.0-17.5) gm/dL Hct 26.5 L (39.0-53.0) % MCV 106.9 H (80.0-100.0) fL MCHC 30.0 L (31.0-37.0) g/dL RDW 23.7 H (11.5-15.5) % Lymphocytes # (Manual) 0.52 L (1.0-4.8) k/uL Eosinophils # (Manual) 0.85 H (0-0.7) k/uL Macrocytosis Marked A APTT 51.9 H (22.0-30.0) sec ABG pCO2 (35-45) mmHg ABG pO2 (83-108) mmHg ABG HCO3 (21-25) mmol/L ABG Total CO2 (19-24) mmol/L ABG O2 Saturation (94-97) % Sodium 135 L (137-145) mmol/L BUN 40 H (9-20) mg/dL Creatinine 1.83 H (0.66-1.25) mg/dL Glucose 166 H (74-99) mg/dL POC Glucose (mg/dL) (70-110) mg/dL Calcium 7.1 L (8.4-10.2) mg/dL Total Protein 4.6 L (6.3-8.2) g/dL Albumin 2.2 L (3.5-5.0) g/dL 05/05/24 05/05/24 Range/Units 05:12 11:31 RBC (4.30-5.90) m/uL Hgb (13.0-17.5) gm/dL Hct (39.0-53.0) % MCV (80.0-100.0) fL MCHC (31.0-37.0) g/dL RDW (11.5-15.5) % Lymphocytes # (Manual) (1.0-4.8) k/uL Eosinophils # (Manual) (0-0.7) k/uL Macrocytosis APTT (22.0-30.0) sec ABG pCO2 47 H (35-45) mmHg ABG pO2 123 H (83-108) mmHg ABG HCO3 26 H (21-25) mmol/L ABG Total CO2 27 H (19-24) mmol/L ABG O2 Saturation 100.2 H (94-97) % Sodium (137-145) mmol/L BUN (9-20) mg/dL Creatinine (0.66-1.25) mg/dL Glucose (74-99) mg/dL POC Glucose (mg/dL) 136 H (70-110) mg/dL Calcium (8.4-10.2) mg/dL Total Protein (6.3-8.2) g/dL Albumin (3.5-5.0) g/dL
[2024-05-05 23:32] LABS: Glucose,Whole Blood 84 mg/dL (70-110)
[2024-05-06 01:54] LABS: Glucose,Whole Blood 85 mg/dL (70-110)
[2024-05-06 04:47] LABS: Anisocytosis Moderate; Basophils % (A) 1 %; Eosinophils # (A) 0.9 k/uL (0-0.7); Eosinophils % (A) 14 %; HCT 27.1 % (39.0-53.0); HGB 8.1 gm/dL (13.0-17.5); Hypochromasia Marked; Lymphocytes # (A) 0.6 k/uL (1.0-4.8); Lymphocytes % (A) 9 %; MCH 31.7 pg (25.0-35.0); MCHC 29.8 g/dL (31.0-37.0); MCV 106.5 fL (80.0-100.0); Mean Platelet Volume 10.5; Monocytes # (A) 0.5 k/uL (0-1.0); Monocytes % (A) 8 %; Neutrophils # (A) 4.2 k/uL (1.3-7.7); Neutrophils % (A) 66 %; Platelet Count 188 k/uL (150-450); Poikilocytosis Moderate; RBC 2.55 m/uL (4.30-5.90); RDW 23.7 % (11.5-15.5); WBC 6.4 k/uL (3.8-10.6)
[2024-05-06 05:14] LABS: Macrocytosis Marked
[2024-05-06 05:19] LABS: African American GFR (CKD) 39 (>60 ml/min/1.73 sqM); Anion Gap 6 mmol/L; Blood Urea Nitrogen 43 mg/dL (9-20); Calcium 7.5 mg/dL (8.4-10.2); Carbon Dioxide 25 mmol/L (22-30); Chloride 107 mmol/L (98-107); Glucose 84 mg/dL (74-99); Magnesium 1.9 mg/dL (1.6-2.3); Non-African American GFR(CKD) 34 (>60 ml/min/1.73 sqM); Phosphorus 4.9 mg/dL (2.5-4.5); Potassium 4.2 mmol/L (3.5-5.1); Sodium 138 mmol/L (137-145)
[2024-05-06 05:25] LABS: Glucose,Whole Blood 85 mg/dL (70-110)
[2024-05-06 06:30] LABS: ABG Base Excess 0.6 mmol/L; ABG HCO3 27 mmol/L (21-25); ABG PCO2 52 mmHg (35-45); ABG PH 7.32 (7.35-7.45); ABG PO2 121 mmHg (83-108); ABG TCO2 29 mmol/L (19-24); Allen Test Performed? Yes
[2024-05-06] MEDS ORDERED: Magnesium Replacement Protocol 1 EACH MISC MISCELLANE PRN (06:47)
[2024-05-06] MEDS: MAGNESIUM SULFATE-D5W PMX 1 GM in DEXTROSE/WATER 1 100ML.BAG IVPB ONE (06:52)
--- NOTE | 2024-05-06 07:50 | XR ---
EXAMINATION TYPE: XR chest 1V portable DATE OF EXAM: 05/06/2024 HISTORY: Shortness of breath. COMPARISON: 05/05/2024 TECHNIQUE: Single view of the chest is submitted. FINDINGS: Demonstrated are scattered senescent parenchymal change. Indwelling tubes and catheters remain uncha nged. Continued features of congestive failure with pulmonary venous congestion as well as scattered mixed infiltrates or pleural effusions. Hilar and mediastinal structures are within normal limits. Degenerative changes are seen of the dorsal spine. IMPRESSION: 1. Essentially stable features appear to be congestive failure. Infiltrates of other etiology not ex cluded.
[2024-05-06] MEDS: FUROSEMIDE 10 MG/ML 4 ML VIAL IV SCH (09:02)
--- NOTE | 2024-05-06 10:47 | P.PN ---
Subjective Progress Note Date: 05/06/24 Everett Juárez, is a 63-year-old male who presented to [facility] emergency room with a chief complaint of worsening shortness of breath and generalized weakness, patient was recently admitted to [facility] with peripheral vascular disease right foot osteomyelitis and underwent stenting of the right SFA by Dr. Dillard, he has a previous history of right great toe amputation. He was evaluated in the emergency room vital examination on presentation revealed a temperature of 98.9 pulse 110 respiration 18 blood pressure 114/72 pulse ox 96% on room air Laboratory data reveals a white blood count of 8.7 hemoglobin 11.4 platelet count 283 sodium 139 potassium 4.9 chloride 110 CO2 23 BUN 41 creatinine 2.01 D- dimer was elevated at 2.10, troponin level was elevated at 0.043 Testing in the emergency room revealed chest x-ray done in the emergency room revealed cardiomegaly and mild pulmonary vascular congestion suggestive of congestive heart failure, VQ scan showed no evidence for pulmonary embolism, EKG revealed atrial fibrillation with moderate T wave abnormalities suggestive of lateral ischemia. Patient was admitted to medical floor for further evaluation and treatment Past medical history is significant for history of atrial fibrillation, history of peripheral arterial disease with previous history of right great toe amputation, history of COPD, history of diabetes mellitus type 2, history of hyperkalemia, history of chronic kidney disease. On review of systems patient is alert and oriented x 3 in no apparent distress, he is complaining of generalized weakness, complaining of shortness of breath, which is worse with activity, and complaining of right foot pain, otherwise he denies any complaints, there is no fever or chills no headache or dizziness no chest pain, no cough no nausea or vomiting no abdominal pain no diarrhea and no urinary symptoms On 04/14/2024 patient is alert and oriented 3.Patient remains on IV Unasyn and IV Lasix. 2-D echo completed showing an EF of 35-40%. Current vital signs temp 98.3, heart 81, respiratory rate 18, blood pressure 135/67 with a pulse ox of 100% on 3 L. Patient reports improvement with shortness of breath. Patient denies nausea vomiting or diarrhea. Patient denies any urinary burning or frequency On 04/15/2024 Patient is alert and oriented 3. Patient remains on IV Unasyn. Patient has been transitioned to by mouth Lasix.Current vital signs temp 97.1, heart rate 98, respiratory rate 18, blood pressure 121/79 with pulse ox 96% on 3 L. Patient denies chest pain or shortness breath. Patient denies nausea vomiting or diarrhea. Patient denies any urinary burning or frequency. On 04/16/2024 he is alert and oriented x 3 in no apparent distress he reports improvement in his shortness of breath there is no fever or chills no headache or dizziness no chest pain no cough no nausea or vomiting no abdominal pain no diarrhea and no urinary symptoms. On 04/17/2024 patient is alert and oriented x 3. Current vital signs Temp 98.1, heart rate 100, respiratory rate 16, blood pressure 153/81 with a pulse ox of 97% on 2 L. Patient remains on IV Unasyn. Awaiting final antibiotic recommenda tions per ID. Patient denies chest pain or shortness of breath. Patient denies nausea vomiting or diarrhea. Patient denies any urinary burning or frequency. On 04/18/2024 patient was seen and examined on the medical floor he is alert and oriented x 3 in no apparent distress there is no fever or chills no headache or dizziness no chest pain no shortness of breath no cough no nausea or vomiting no abdominal pain no diarrhea no urinary symptoms, he is still maintained on oxygen supplements, patient need to be assessed for need for home oxygen, he is also maintained on tube feeding, comp field case manager is working on arrangement for tube feeding at home. Otherwise continue with current management will recheck in a.m.. On 04/19/2024 patient is alert and oriented x 3. Patient is maintained on 3 L n roberth cannula. Patient also maintained on IV Unasyn. Awaiting final IV recommendations from infectious disease. Current vital signs Temp 98.2, heart rate 82, blood pressure 116/70 with a pulse ox of 97% on 3 L patient denies chest pain or shortness of breath. Patient denies nausea vomiting or diarrhea. Patient denies any urinary burning or frequency On 04/20/2024 patient was seen and examined on the medical floor he is alert and oriented x 3 in no apparent distress, there is no fever or chills no headache or dizziness no chest pain no shortness of breath no cough no nausea or vomiting no abdominal pain no diarrhea no urinary symptoms, patient is still having difficulty with hyperkalemia, he is maintained on IV fluids and [facility] nephrology are following, will recheck labs in a.m. On 04/21/2024 patient is alert and oriented x 3. Potassium remains elevated at 5.9 awaiting further recommendations from nephrology standpoint. Patient denies chest pain or shortness of breath. Patient denies nausea vomiting or diarrhea. Patient denies any urinary burning or frequency On 04/22/2024 patient is alert and oriented x 3. Patient received 1 unit PRBCs for hemoglobin of 6.8 yesterday. GI services were consulted stool for occult blood ordered. Nephrology service is following for elevated potassium level. At this time patient denies chest pain or shortness of breath. Patient denies nausea vomiting or diarrhea. Patient denies any urinary burning frequency. On 04/23/2024 patient was seen and examined on the medical floor he is alert and oriented x 3 in no apparent distress, his hemoglobin today is again 6.01 unit of red blood cell transfusion was ordered, he was reevaluated by gastroenterology and plans are for EGD and colonoscopy tomorrow, otherwise he denies any complaints there is no fever or chills no headache or dizziness no chest pain no shortness of breath no cough no nausea or vomiting no abdominal pain no diarrhea no urinary symptoms On 04/24/2024 patient is alert and oriented 3. Plans for EGD and colonoscopy today with GI services.Patient had episodes of hypotension throughout night received IV bolus. Continue to transfuse patient for hemoglobin less than 7. Patient remains on IV Unasyn. This time patient denies chest pain or shortness breath. Patient denies nausea vomiting or diarrhea. Patient denies any urinary burning or frequency. On 04/25/2024 patient was seen and examined on the medical floor he is alert and oriented x 3 in no apparent distress there is no fever or chills no headache or dizziness no chest pain no shortness of breath no cough no nausea or vomiting no abdominal pain no diarrhea no urinary symptoms, hemoglobin is down again to 6.7 patient will be given 1 unit of red blood cell transfusion, EGD and colonoscopy results done yesterday were reviewed, at this time will consult Dr. Jackson regarding recurrent pneumonia requiring multiple red blood cell transfusion, continue with tube feeding at this time. On 04/26/2024 patient is alert and oriented x 3. Hemoglobin today 8.0. Awaiting oncology input. Patient denies chest pain or shortness of breath. Patient denies nausea vomiting or diarrhea. Patient denies any urinary burning or frequency. Current vital signs Temp 97.7, heart rate 91, respiratory rate 16, blood pressure 118/60 with pulse ox of 98% on 4 L On 04/27/2024 patient was seen and examined on the medical floor he is alert and oriented x 3 in no apparent distress he is complaining of generalized weakness otherwise he denies any specific complaints there is no fever or chills no headache or dizziness no chest pain no shortness of breath no cough no nausea or vomiting no abdominal pain no diarrhea no urinary symptoms. On 04/28/2024 patient was seen and examined on the medical floor he is alert and oriented x 3 in no apparent distress there is no fever or chills no headache or dizziness no chest pain no shortness of breath no cough no nausea or vomiting no abdominal pain no diarrhea and no urinary symptoms, hemoglobin is stabilizing around 8 will continue to monitor On 04/29/2024 patient is alert and oriented 3.heart rate elevated at 121 this AM. Patient being followed by cardiology services was given by mouth amiodarone awaiting further recommendations from cardiology services. Hemoglobin remained stable at 8.1. Patient denies chest pain or shortness of breath. Patient denies nausea vomiting or diarrhea. Patient denies any urinary burning or frequency On 04/30/2024 patient is alert resting comfortably in bed. Patient pulled out PEG tube yesterday. Patient unable to take pills by mouth. Surgical service is consulted for new PEG tube placement unable to do until Saturday due to patient being on Plavix Plavix currently on hold. Heart rate remains elevated Lopressor IV push has been ordered. Current vital signs temp 97.7, heart rate 127, blood pressure 118/72 with pulse ox 96% on 3 L. Patient denies chest pain or shortness of breath. Patient denies nausea vomiting or diarrhea. Patient denies any urinary burning or frequency on 05/01/2024 patient is resting comfortably in bed. Awaiting PEG tube placement on Saturday.current vital signs temp 98.1, heart rate 107, respiratory rate 18, blood pressure 115/73 with pulse ox 91% on 3 L. Patient denies chest pain or shortness of breath. Patient denies nausea vomiting or diarrhea On 05/02/2024 patient was seen and examined on the medical floor he is alert responsive in no apparent distress, there is no fever or chills no headache or dizziness no chest pain no shortness of breath no cough no nausea or vomiting no abdominal pain no diarrhea and no urinary symptoms, at this time we are awaiting replacement of his PEG tube, Plavix was held in that regard, PICC line was inserted and patient was started on TPN , continue current medications otherwise On 05/03/2024 patient is alert and oriented x 3 currently sitting up in bed. Per nursing staff patient is being switched to IV amiodarone for heart rate control. Patient was also started on TPN through PICC line. Patient to get PEG tube placement tomorrow and hopefully can restart back on p.o. medications for heart rate control. Patient denies chest pain or shortness of breath. Patient denies nausea vomiting or diarrhea. Patient denies any urinary burning or frequency. On 05/04/2024 patient was seen and examined in the ICU, he is currently intubated sedated maintained on mechanical ventilation, earlier this morning patient had cardiac arrest which required resuscitation and intubation and transfer to ICU, currently his vital examination reveals a temperature of 97.8 pulse 85 respiration 20 blood pressure 113/48 pulse ox 96% on mechanical ventilation FiO2 50% white blood count today 5.9 hemoglobin 8.7 platelet count 271 INR 1.2 arterial blood gas pH 7.26 P CO2 58 pO2 63 On 05/05/2025 for patient remains in the intensive care unit on mechanical ventilation.patient remains on IV heparin drip IV Lasix and IV Zosyn.current vital signs temp 97.5, heart rate 70, respiratory rate 14, blood pressure 113/63 with a pulse ox of 99% with an FiO2 of 50%. On 05/06/2024 patient remains in the intensive care unit on mechanical ventilation. Discussed with nursing staff to consult GI services for possible PEG tube placement prior to extubation.current vital signs temp 98.6, heart [id number],blood pressure 104/55 with pulse ox of 96% on an FiO2 of 40%. Patient remains on heparin drip. Patient remains on IV sedation of propofol Objective - Vital Signs Vital signs: Vital Signs Temp 97.2 F L 05/06/24 08:00 Pulse 103 H 05/06/24 10:00 Resp 18 05/06/24 10:00 BP 91/54 05/06/24 10:00 Pulse Ox 100 05/06/24 10:00 FiO2 40 05/06/24 09:18 Intake & Output 05/05/24 05/06/24 05/06/24 18:59 06:59 18:59 Intake Total 2097.019 1479 179 Output Total 1735 2225 330 Balance 362.019 -746 -151 Weight 109.4 kg Intake: IV 353 669 89 0.9 KVO 120 70 30 Lactated Ringers 1,000 ml 200 260 40 @ 20 mls/hr IV .Q24H [facility] Rx#:[id number] Magnesium Sulfate-D5w Pmx 100 1 gm In Dextrose/Water 1 100ml.bag @ 100 mls/hr IVPB ONCE ONE Rx#: [id number] Piperacillin-Tazobactam 3 200 10 .375 gm In Sodium Chloride 0.9% 100 ml @ 25 mls/hr IVPB Q8HR [facility] Rx# :[id number] pressure bag 33 39 9 Intake, IV Titration 1439.019 450 Amount Heparin Sod,Pork in 0.45% 250 NaCl 25,000 unit In 0.45 % NaCl 1 250ml.bag @ 9.35 UNITS/KG/HR 9.995 mls/hr IV .Q24H [facility] Rx#: [id number] Mvi, Adult No.4 with Vit 1034 K 10 ml Trace (Conc-1Ml/ Dose) 1 ml Sodium Acetate 18 meq Calcium Gluconate 1 gm Magnesium Sulfate gm 0.5 gm Sodium Phosphate 9 mmol In Amino Acids 5 %/Dextrose 20 % 1,000 ml @ 35 mls/hr IV . BY DURATION [facility] Rx#: [id number] Piperacillin-Tazobactam 3 100 .375 gm In Sodium Chloride 0.9% 100 ml @ 25 mls/hr IVPB Q8HR [facility] Rx# :[id number] propofoL 1,000 mg In 305.019 200 Empty Bag 1 bag @ 15 MCG/ KG/MIN 9.81 mls/hr IV . [id number] [facility] Rx#:[id number] Tube Feeding 140 240 60 TPN/PPN 105 Sodium Acetate 18 meq 105 Calcium Gluconate 1 gm Magnesium Sulfate gm 0.5 gm Sodium Phosphate 9 mmol In Amino Acids 5 %/ Dextrose 20 % 1,000 ml @ 35 mls/hr IV .BY DURATION [facility] Rx#:[id number] Other 60 120 30 Output: Gastric Drainage 150 Urine 1585 2225 330 Other: Voiding Method Indwelling Catheter Indwelling Catheter ABP, PAP, CO, CI - Last Documented Arterial Blood Pressure 89/53 - Exam In general patient is alert and oriented x 3 in no distress HEENT head normocephalic and atraumatic Neck is supple no JVD no goiter no lymphadenopathy no carotid bruit Chest examination reveals a scattered crackles in both lung [place] no wheezing Cardiac exam reveals irregular heart sounds S1 and S2 no gallops no murmurs Abdomen is soft nontender no organomegaly with normal bowel sounds Extremity exam reveals no edema no cyanosis or clubbing, the right great toe is amputated with a large ulcer at the base of the amputated right great toe with purulent discharge Neurological examination reveals no gross focal deficits - Labs CBC & Chem 7: 05/06/24 04:35 05/06/24 04:35 Labs: Abnormal Lab Results - Last 24 Hours (Table) 05/05/24 05/06/24 05/06/24 Range/Units 11:31 04:35 04:35 RBC 2.55 L (4.30-5.90) m/uL Hgb 8.1 L (13.0-17.5) gm/dL Hct 27.1 L (39.0-53.0) % MCV 106.5 H (80.0-100.0) fL MCHC 29.8 L (31.0-37.0) g/dL RDW 23.7 H (11.5-15.5) % Lymphocytes # 0.6 L (1.0-4.8) k/uL Eosinophils # 0.9 H (0-0.7) k/uL Macrocytosis Marked A APTT (22.0-30.0) sec ABG pH (7.35-7.45) ABG pCO2 (35-45) mmHg ABG pO2 (83-108) mmHg ABG HCO3 (21-25) mmol/L ABG Total CO2 (19-24) mmol/L ABG O2 Saturation (94-97) % BUN 43 H (9-20) mg/dL Creatinine 2.04 H (0.66-1.25) mg/dL POC Glucose (mg/dL) 136 H (70-110) mg/dL Calcium 7.5 L (8.4-10.2) mg/dL Phosphorus 4.9 H (2.5-4.5) mg/dL 05/06/24 05/06/24 Range/Units 04:35 06:26 RBC (4.30-5.90) m/uL Hgb (13.0-17.5) gm/dL Hct (39.0-53.0) % MCV (80.0-100.0) fL MCHC (31.0-37.0) g/dL RDW (11.5-15.5) % Lymphocytes # (1.0-4.8) k/uL Eosinophils # (0-0.7) k/uL Macrocytosis APTT 46.5 H (22.0-30.0) sec ABG pH 7.32 L (7.35-7.45) ABG pCO2 52 H (35-45) mmHg ABG pO2 121 H (83-108) mmHg ABG HCO3 27 H (21-25) mmol/L ABG Total CO2 29 H (19-24) mmol/L ABG O2 Saturation 100.0 H (94-97) % BUN (9-20) mg/dL Creatinine (0.66-1.25) mg/dL POC Glucose (mg/dL) (70-110) mg/dL Calcium (8.4-10.2) mg/dL Phosphorus (2.5-4.5) mg/dL Assessment and Plan Plan: Worsening shortness of breath, multifactorial, possibly related to acute congestive heart failure, and underlying COPD Atrial fibrillation, with rapid ventricular response on presentation, heart rate was 110 status post cardiac arrest requiring intubation and mechanical ventilation New onset cardiomyopathy. Anemia status post EGD and colonoscopy on 04/24/2024 Generalized weakness Large ulcer at the base of the right great toe with purulent discharge, patient was maintained on oral Augmentin as outpatient, infectious disease consultation requested Underlying history of peripheral arterial disease, with recent history of angioplasty and stent placement to the right lower extremity on 04/08/2024 Underlying history of diabetes mellitus Underlying history of chronic obstructive pulmonary disease Underlying history of chronic kidney disease Underlying history of hyperkalemia Underlying history of chronic continued tobacco abuse Patient pulled out PEG tube. Surgical surfaces consulted. Plans for PEG tube placement on 05/04/2024 patient transferred to the intensive care unit Maintained on mechanical ventilation For DVT prophylaxis,heparin drip. GI prophylaxis Pepcid cardiology, infectious disease,critical care, nephrology and surgical service is consulted Will follow closely
[2024-05-06 11:43] LABS: Glucose,Whole Blood 96 mg/dL (70-110)
--- NOTE | 2024-05-06 11:48 | P.PN ---
Subjective patient is seen for follow-up for acute kidney injury and chronic kidney disease. status post cardiac arrest on 05/04/2024 prior to surgery for PEG tube placement.no major electrolyte abnormalities noted. Renal function is stable with serum creatinine at 1.8 - 2.0 mg/dL. maintained on IV Lasix, dose increased to every 8 hours today as chest x-ray has worsened. UOP at 75 - 100 mL an hour Objective - Vital Signs Vital signs: Vital Signs Temp 97.2 F L 05/06/24 08:00 Pulse 80 05/06/24 11:00 Resp 22 05/06/24 11:00 BP 86/54 05/06/24 11:00 Pulse Ox 100 05/06/24 11:00 FiO2 40 05/06/24 09:18 Intake & Output 05/05/24 05/06/24 05/06/24 18:59 06:59 18:59 Intake Total 2097.019 1479 315.924 Output Total 1735 2225 555 Balance 362.019 -746 -239.076 Weight 109.4 kg Intake: IV 353 669 102 0.9 KVO 120 70 40 Lactated Ringers 1,000 ml 200 260 40 @ 20 mls/hr IV .Q24H [facility] Rx#:[id number] Magnesium Sulfate-D5w Pmx 100 1 gm In Dextrose/Water 1 100ml.bag @ 100 mls/hr IVPB ONCE ONE Rx#: [id number] Piperacillin-Tazobactam 3 200 10 .375 gm In Sodium Chloride 0.9% 100 ml @ 25 mls/hr IVPB Q8HR [facility] Rx# :[id number] pressure bag 33 39 12 Intake, IV Titration 1439.019 450 103.924 Amount Heparin Sod,Pork in 0.45% 250 NaCl 25,000 unit In 0.45 % NaCl 1 250ml.bag @ 9.35 UNITS/KG/HR 9.995 mls/hr IV .Q24H [facility] Rx#: [id number] Mvi, Adult No.4 with Vit 1034 K 10 ml Trace (Conc-1Ml/ Dose) 1 ml Sodium Acetate 18 meq Calcium Gluconate 1 gm Magnesium Sulfate gm 0.5 gm Sodium Phosphate 9 mmol In Amino Acids 5 %/Dextrose 20 % 1,000 ml @ 35 mls/hr IV . BY DURATION [facility] Rx#: [id number] Norepinephrine 4 mg In 0 Sodium Chloride 0.9% 250 ml @ 0.05 MCG/KG/MIN 20. 765 mls/hr IV .[id number] [facility] Rx#:[id number] Piperacillin-Tazobactam 3 100 .375 gm In Sodium Chloride 0.9% 100 ml @ 25 mls/hr IVPB Q8HR [facility] Rx# :[id number] propofoL 1,000 mg In 305.019 200 103.924 Empty Bag 1 bag @ 15 MCG/ KG/MIN 9.81 mls/hr IV . [id number] [facility] Rx#:[id number] Tube Feeding 140 240 80 TPN/PPN 105 Sodium Acetate 18 meq 105 Calcium Gluconate 1 gm Magnesium Sulfate gm 0.5 gm Sodium Phosphate 9 mmol In Amino Acids 5 %/ Dextrose 20 % 1,000 ml @ 35 mls/hr IV .BY DURATION [facility] Rx#:[id number] Other 60 120 30 Output: Gastric Drainage 150 Urine 1585 2225 555 Other: Voiding Method Indwelling Catheter Indwelling Catheter Indwelling Catheter ABP, PAP, CO, CI - Last Documented Arterial Blood Pressure 99/49 - Exam patient is on the vent Examination of the heart S1 and S2 Examination lungs bilateral breath sounds are heard Abdomen is soft nontender Examination lower extremities shows no significant edema. - Labs CBC & Chem 7: 05/06/24 04:35 05/06/24 04:35 Labs: Abnormal Lab Results - Last 24 Hours (Table) 05/06/24 05/06/24 05/06/24 Range/Units 04:35 04:35 04:35 RBC 2.55 L (4.30-5.90) m/uL Hgb 8.1 L (13.0-17.5) gm/dL Hct 27.1 L (39.0-53.0) % MCV 106.5 H (80.0-100.0) fL MCHC 29.8 L (31.0-37.0) g/dL RDW 23.7 H (11.5-15.5) % Lymphocytes # 0.6 L (1.0-4.8) k/uL Eosinophils # 0.9 H (0-0.7) k/uL Macrocytosis Marked A APTT 46.5 H (22.0-30.0) sec ABG pH (7.35-7.45) ABG pCO2 (35-45) mmHg ABG pO2 (83-108) mmHg ABG HCO3 (21-25) mmol/L ABG Total CO2 (19-24) mmol/L ABG O2 Saturation (94-97) % BUN 43 H (9-20) mg/dL Creatinine 2.04 H (0.66-1.25) mg/dL Calcium 7.5 L (8.4-10.2) mg/dL Phosphorus 4.9 H (2.5-4.5) mg/dL 05/06/24 Range/Units 06:26 RBC (4.30-5.90) m/uL Hgb (13.0-17.5) gm/dL Hct (39.0-53.0) % MCV (80.0-100.0) fL MCHC (31.0-37.0) g/dL RDW (11.5-15.5) % Lymphocytes # (1.0-4.8) k/uL Eosinophils # (0-0.7) k/uL Macrocytosis APTT (22.0-30.0) sec ABG pH 7.32 L (7.35-7.45) ABG pCO2 52 H (35-45) mmHg ABG pO2 121 H (83-108) mmHg ABG HCO3 27 H (21-25) mmol/L ABG Total CO2 29 H (19-24) mmol/L ABG O2 Saturation 100.0 H (94-97) % BUN (9-20) mg/dL Creatinine (0.66-1.25) mg/dL Calcium (8.4-10.2) mg/dL Phosphorus (2.5-4.5) mg/dL Assessment and Plan Assessment: 1. Acute kidney injury secondary to ATN secondary to acute blood loss anemia. Creatinine peaked at 2.7 this admission and stable at 1.9 - 2.0 No hydronephrosis noted on kidney ultrasound. UA fairly benign. Currently being diuresed. 2. Chronic kidney disease stage IV baseline creatinine 1.8-2.0 secondary to solitary right kidney. History of left nephrectomy. 3. Chronic systolic CHF ejection fraction of 35 to 40% with severe pulmonary hypertension. 4. Diabetes mellitus. 5. Hypernatremia from lack of oral water intake. Improved. 6. Hyperkalemia secondary to acute kidney injury and GI bleed. Resolved. 7. Peripheral vascular disease. 8. Acute blood loss anemia. No active bleeding. Status post blood transfusions and IV DDAVP. Also on Aranesp. GI following. Plan: maintain off of IV fluids. continue with IV Lasix. Chest x-ray does continue to show pulmonary vascular congestion. Repeat labs in a.m.
--- NOTE | 2024-05-06 11:53 | P.PN ---
Subjective Progress Note Date: 05/06/24 Principal diagnosis: Acute exacerbation of systolic congestive heart failure and acute cellulitis of right foot, cardiac arrest This is a 63-year-old white male with history of multiple medical problems including coronary artery disease, chronic atrial fibrillation, peripheral vessel occlusive disease, severe pulmonary hypertension, chronic obstructive pulmonary disease, patient normally sees Dr. Dillard on outpatient basis. Patient was never seen by a rheumatologist. Admitted this time with few days history of increased shortness of breath, and according to the his O2 saturation was down in the 60s. Patient was brought into the ER, chest x-ray showed evidence of pulmonary edema, VQ scan negative for pulmonary embolism, patient was admitted and this consult was initiated. Patient is not a great historian, most of the information was obtained from his , apparently the patient had history of CVA in the past, and he had a previous PEG tube placement Labs on admission showed relatively normal CBC, no leukocytosis, D-dimer was a bit elevated at 2.10 and renal profile was abnormal with BUN of 43 and creatinine 2.01 however BNP level was 12,300 and troponin was 0.043. Since admission, the patient received 1 dose of Lasix, and he is at least 1.5 L negative fluid balance The patient is seen today April 14, 2024 in follow-up on the selective care unit. He is currently sitting up at the bedside. Awake and alert in no acute distress. Breathing a bit easier today compared to yesterday. Currently maintaining good O2 saturations in the upper 90s on 3 L/min per nasal cannula. He is afebrile. Hemodynamically stable. Echocardiogram reveals impaired left ventricular systolic function with an ejection fraction of 35 to 40%. Severe pulmonary hypertension. Moderate to severely dilated left atrium. Right first toe culture is pending. Currently on Unasyn. Glucose 125. Being nourished with Glucerna at 51 MLS per hour via his PEG tube. Anticoagulated with Eliquis. Remains on diuretics. Making adequate urine. The patient is seen today April 15, 2024 in follow-up on the selective care unit. He is awake and alert in no acute distress. Maintaining O2 saturations in the 90s on 3 L/min per nasal cannula. Hemodynamically stable. White count 8.4. Hemoglobin 11.2. Platelets 321. Sodium 143. Potassium 4.9. Bicarb 29. BUN 45. Creatinine 1.99. Glucose 126. He is continued on Unasyn. Anticoagulated with Eliquis. Remains on bronchodilators. Remains on oral diuretics. Continued on Glucerna via his PEG tube. Barium swallow is pending so the patient can continue on tube feedings in the outpatient setting Patient was evaluated today on 04/16/2024, patient is doing well, comfortable, not in any distress, on 3 L nasal cannula with O2 sats of 96%. WBC is 8.5 hemoglobin 10.5 electrolytes are relatively normal with potassium of 5.2 BUN is 48 creatinine 1.94, steadily improving since admission patient had a successful swallow evaluation study that came back unremarkable. Progress note dated May 02, 2024. 63-year-old male who is now been in the hospital for about 3 weeks. Currently, he is on 2 L of oxygen by nasal cannula, getting saline at 75 cc an hour, Cardizem at 5 mg an hour, and TPN at 30 MLS per hour. He is sitting at the side of his bed. No respiratory distress or difficulty. The plan is to replace his PEG tube on Saturday. He apparently accidentally pulled it out. Current labs include sodium 141, potassium 4.9, chlorides 110, CO2 26, anion gap 5, BUN 35, creatinine 1.92. Glucose is 149. Albumin is 2.6. Calcium is 7.6. Chest x-ray from yesterday is consistent with cardiomegaly. Progress note dated May 03, 2024. 63-year-old male seen today in room 353. Currently, the patient is on nasal O2 at 2 L. He is not receiving any IV fluids. The patient continues on IV Unasyn. The patient is supposed to have a reinsertion of the PEG tube, that he accidentally pulled out, tomorrow, May 05. The patient has no specific complaints today. Current labs include a white count 6.4, hemoglobin 8.3, hemat ocrit 28.7, platelet count 274,000. Sodium 139, potassium 4.6, chlorides 108, CO2 28, BUN 37, creatinine 2.04. Glucose is 180. Albumin is 2.6. Patient was given today on 05/04/2024, patient was in the endoscopy suite to undergo PEG tube placement, apparently patient received mild sedation, and he went on to develop cardiopulmonary arrest. Patient had chest compression, received epinephrine, intubated in the meantime, and was sent back to ICU intubated and make ventilated. Patient is on assist-control rate of 16 tidal volume 500 FiO2 50%, PEEP of 8 ABG showed a pO2 of 62 pCO2 58 pH of 7.26. Hence his rate was increased to 20. And FiO2 was changed from 100% initially to 50%. Patient was not hypotensive requiring norepinephrine, however as soon as a left radial arterial line was placed, noted that her blood pressure was actually elevated, norepinephrine was discontinued. Patient is on amiodarone at 0.5 mg/min, he is receiving TPN, patient is on heparin drip, and his propofol dose is 10 mcg/kg/min. WBC count of 5.9 hemoglobin 8.7 INR is 1.2 chest x-ray postintubation showed evidence of congestive heart failure/interstitial edema and small right-sided pleural effusion patient will receive Lasix. He was seen again today on , patient is in the ICU, intubated, mechanicall y ventilated, he is on assist-control rate of 20 tidal volume 500 FiO2 50% and PEEP of 8 ABG showed a pO2 of 123 pCO2 47 pH of 7.35. No changes made in the ventilator settings except cutting down FiO2 to 45%. Patient remains on heparin drip, he is on propofol at 40 mcg/kg/min, receiving TPN at 35 cc/h patient is also on Zosyn. Still on Lasix at 40 mg IV push every 12 hours, chest x-ray continues to show evidence of interstitial edema/infiltrates. Patient required norepinephrine yesterday, and this has been off since 5 AM this morning. WBC count is 6.5 hemoglobin 7.9. Basic metabolic profile is normal BUN is 14 creatinine 1.83 slightly better compared to creatinine of 1.94 yesterday. After reviewing chest x-ray, patient was placed on Lasix 40 mg IV push every 12 hours. After reviewing the notes from general surgery were and the surgeon has no plans in the future to consider EGD again or PEG tube placement, recommended GI evaluation for possible PEG tube placement while the patient is intubated mechanically ventilated, and he seems to be definitely more stable now for PEG tube placement than he was prior to intubation. And will likely clear patient for PEG tube placement by cardiology prior to procedure Patient was today on 05/06/24, remains in the ICU, intubated and mechanically ventilated. Patient is on assist-control rate of 22 tidal volume 500 FiO2 45% PEEP of 8 ABG showed a pO2 of 121 pCO2 52 pH of 7.32 hence FiO2 was cut down to 40%. Chest x-ray is showing evidence of congestive heart failure however patient is improving with Lasix, and he is on Lasix now 40 mg IV push 3 times daily. Excellent urine output, remains on Zosyn. Remains on IV fluid at KVO, and propofol at 40 mcg/kg/min. Patient is sedated, however the patient will have sedation interruption today, and will be given a weaning trial although I have a feeling is not weanable yet. But at least patient will get a sedation interruption or sedation holiday today, and will be able to address hopefully his mental status sepsis. His x-ray is consistent with congestive heart failure, underlying infiltrates is not entirely ruled out. WBC count is 6.4 hemoglobin 8.1 PTT is 46.5 remains on heparin, basic metabolic profile is normal BUN is 43 creatinine 2.04 Objective - Vital Signs Vital signs: Vital Signs Temp 97.2 F L 05/06/24 08:00 Pulse 80 05/06/24 11:00 Resp 22 05/06/24 11:00 BP 86/54 05/06/24 11:00 Pulse Ox 100 05/06/24 11:00 FiO2 40 05/06/24 09:18 Intake & Output 05/05/24 05/06/24 05/06/24 18:59 06:59 18:59 Intake Total 2097.019 1479 315.924 Output Total 1735 2225 555 Balance 362.019 -746 -239.076 Weight 109.4 kg Intake: IV 353 669 102 0.9 KVO 120 70 40 Lactated Ringers 1,000 ml 200 260 40 @ 20 mls/hr IV .Q24H MARY ANN Rx#:[id number] Magnesium Sulfate-D5w Pmx 100 1 gm In Dextrose/Water 1 100ml.bag @ 100 mls/hr IVPB ONCE ONE Rx#: [id number] Piperacillin-Tazobactam 3 200 10 .375 gm In Sodium Chloride 0.9% 100 ml @ 25 mls/hr IVPB Q8HR MARY ANN Rx# :[id number] pressure bag 33 39 12 Intake, IV Titration 1439.019 450 103.924 Amount Heparin Sod,Pork in 0.45% 250 NaCl 25,000 unit In 0.45 % NaCl 1 250ml.bag @ 9.35 UNITS/KG/HR 9.995 mls/hr IV .Q24H MARY ANN Rx#: [id number] Mvi, Adult No.4 with Vit 1034 K 10 ml Trace (Conc-1Ml/ Dose) 1 ml Sodium Acetate 18 meq Calcium Gluconate 1 gm Magnesium Sulfate gm 0.5 gm Sodium Phosphate 9 mmol In Amino Acids 5 %/Dextrose 20 % 1,000 ml @ 35 mls/hr IV . BY DURATION MARY ANN Rx#: [id number] Norepinephrine 4 mg In 0 Sodium Chloride 0.9% 250 ml @ 0.05 MCG/KG/MIN 20. 765 mls/hr IV .[id number] MARY ANN Rx#:[id number] Piperacillin-Tazobactam 3 100 .375 gm In Sodium Chloride 0.9% 100 ml @ 25 mls/hr IVPB Q8HR MARY ANN Rx# :[id number] propofoL 1,000 mg In 305.019 200 103.924 Empty Bag 1 bag @ 15 MCG/ KG/MIN 9.81 mls/hr IV . [id number] MARY ANN Rx#:[id number] Tube Feeding 140 240 80 TPN/PPN 105 Sodium Acetate 18 meq 105 Calcium Gluconate 1 gm Magnesium Sulfate gm 0.5 gm Sodium Phosphate 9 mmol In Amino Acids 5 %/ Dextrose 20 % 1,000 ml @ 35 mls/hr IV .BY DURATION MARY ANN Rx#:[id number] Other 60 120 30 Output: Gastric Drainage 150 Urine 1585 2225 555 Other: Voiding Method Indwelling Catheter Indwelling Catheter Indwelling Catheter ABP, PAP, CO, CI - Last Documented Arterial Blood Pressure 99/49 - Exam GENERAL EXAM: Reveals 63-year-old white male intubated mechanically ventilated sedated HEAD: Normocephalic. EYES: Normal reaction of pupils, equal size. NOSE: Clear with pink turbinates. THROAT: No erythema or exudates. Endotracheal tube and orogastric tube are intact. NECK: No masses, no JVD. CHEST: No chest wall deformity. LUNGS: Crackles at the bases no rhonchi no wheezes CVS: Regular rate and rhythm S1 and S2 normal with no audible murmur ABDOMEN: Soft nontender no megaly no rebound SKIN: No cyanosis CENTRAL NERVOUS SYSTEM: Could not assess patient is sedated and mechanically ventilated EXTREMITIES: Right foot wrapped with sterile dressing - Labs CBC & Chem 7: 05/06/24 04:35 05/06/24 04:35 Labs: Abnormal Lab Results - Last 24 Hours (Table) 05/06/24 05/06/24 05/06/24 Range/Units 04:35 04:35 04:35 RBC 2.55 L (4.30-5.90) m/uL Hgb 8.1 L (13.0-17.5) gm/dL Hct 27.1 L (39.0-53.0) % MCV 106.5 H (80.0-100.0) fL MCHC 29.8 L (31.0-37.0) g/dL RDW 23.7 H (11.5-15.5) % Lymphocytes # 0.6 L (1.0-4.8) k/uL Eosinophils # 0.9 H (0-0.7) k/uL Macrocytosis Marked A APTT 46.5 H (22.0-30.0) sec ABG pH (7.35-7.45) ABG pCO2 (35-45) mmHg ABG pO2 (83-108) mmHg ABG HCO3 (21-25) mmol/L ABG Total CO2 (19-24) mmol/L ABG O2 Saturation (94-97) % BUN 43 H (9-20) mg/dL Creatinine 2.04 H (0.66-1.25) mg/dL Calcium 7.5 L (8.4-10.2) mg/dL Phosphorus 4.9 H (2.5-4.5) mg/dL 05/06/24 Range/Units 06:26 RBC (4.30-5.90) m/uL Hgb (13.0-17.5) gm/dL Hct (39.0-53.0) % MCV (80.0-100.0) fL MCHC (31.0-37.0) g/dL RDW (11.5-15.5) % Lymphocytes # (1.0-4.8) k/uL Eosinophils # (0-0.7) k/uL Macrocytosis APTT (22.0-30.0) sec ABG pH 7.32 L (7.35-7.45) ABG pCO2 52 H (35-45) mmHg ABG pO2 121 H (83-108) mmHg ABG HCO3 27 H (21-25) mmol/L ABG Total CO2 29 H (19-24) mmol/L ABG O2 Saturation 100.0 H (94-97) % BUN (9-20) mg/dL Creatinine (0.66-1.25) mg/dL Calcium (8.4-10.2) mg/dL Phosphorus (2.5-4.5) mg/dL Assessment and Plan Assessment: Impression: Cardiac arrest requiring intubation mechanical ventilation patient had cardiac arrest before even having EGD/PEG tube placement according to the notes from surgery. 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 Acute on chronic stage IV kidney disease Acute blood loss anemia requiring 5 units of blood transfusion Electrolytes imbalance secondary to acute on chronic kidney disease Peripheral vessel occlusive disease and previous stenting of right SFA and right popliteal artery Severe pulmonary hypertension Paroxysmal atrial fibrillation, on anticoagulation therapy History of CVA with residual dysphagia requiring PEG tube placement Type 2 diabetes Cellulitis of right foot/diabetic foot ulcer Recommendation: Continue ventilatory support however the patient will be given a sedation holiday/interruption, and hopefully assess mental status and even proceed to weaning parameters if possible Continue antibiotics as per infectious disease on the case Continue amiodarone as per cardiology on the case, patient remains on heparin for now Continue nutritional support/TPN Hold on PEG tube placement for now, eventually the patient will need a PEG tube placement, however this will be addressed in the next few days, and the patient will need to have a cardiac clearance prior to PEG tube placement Continue heparin/anticoagulation for atrial fibrillation and DVT prophylaxis Continue GI prophylaxis Continue diuretics Lasix 40 mg IV push 3 times daily. Continue to monitor renal status closely Continue to monitor in ICU Patient is critically ill, Critical care is over 30 minutes Time with Patient: Greater than 30
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
--- NOTE | 2024-05-06 14:58 | P.PN ---
Subjective Progress Note Date: 05/06/24 CHIEF COMPLAINT: Pulled out PEG tube HISTORY OF PRESENT ILLNESS: Patient is currently in the ICU intubated and on mechanical ventilation after cardiopulmonary arrest after mild sedation given for EGD. Patient scheduled for sedation holiday today. Afebrile. Mildly tachycardic. Hypotension improved PHYSICAL EXAM: VITAL SIGNS: Reviewed. GENERAL: no acute distress. ABDOMEN: Soft. Nondistended. Nontender. NEUROLOGIC: Patient intubated and sedated ASSESSMENT: 1. Moderate protein calorie malnutrition 2. Dysphagia 3. Acute CHF 4. A-fib 5. Cardiomyopathy 6. Peripheral arterial disease with angioplasty and stent to the right lower extremity earlier in April 7. Diabetes mellitus 8. Anemia PLAN: -Recommend assessment for possible tracheostomy and PEG tube placement depending on patient's completion of his sedation holiday -Continue supportive care Physician Rest Room Maid note has been reviewed by physician. Signing provider agrees with the documented findings, assessment, and plan of care. Objective - Vital Signs Vital signs: Vital Signs Temp 96.8 F L 05/06/24 12:00 Pulse 105 H 05/06/24 14:30 Resp 22 05/06/24 14:30 BP 86/54 05/06/24 12:00 Pulse Ox 100 05/06/24 14:30 FiO2 40 05/06/24 12:00 Intake & Output 05/05/24 05/06/24 05/06/24 18:59 06:59 18:59 Intake Total 2097.019 1479 481.997 Output Total 1735 2225 1230 Balance 362.019 -746 -748.003 Weight 109.4 kg Intake: IV 353 669 128 0.9 KVO 120 70 60 Lactated Ringers 1,000 ml 200 260 40 @ 20 mls/hr IV .Q24H [facility] Rx#:[id number] Magnesium Sulfate-D5w Pmx 100 1 gm In Dextrose/Water 1 100ml.bag @ 100 mls/hr IVPB ONCE ONE Rx#: [id number] Piperacillin-Tazobactam 3 200 10 .375 gm In Sodium Chloride 0.9% 100 ml @ 25 mls/hr IVPB Q8HR [facility] Rx# :[id number] pressure bag 33 39 18 Intake, IV Titration 1439.019 450 173.997 Amount Heparin Sod,Pork in 0.45% 250 NaCl 25,000 unit In 0.45 % NaCl 1 250ml.bag @ 9.35 UNITS/KG/HR 9.995 mls/hr IV .Q24H [facility] Rx#: [id number] Mvi, Adult No.4 with Vit 1034 K 10 ml Trace (Conc-1Ml/ Dose) 1 ml Sodium Acetate 18 meq Calcium Gluconate 1 gm Magnesium Sulfate gm 0.5 gm Sodium Phosphate 9 mmol In Amino Acids 5 %/Dextrose 20 % 1,000 ml @ 35 mls/hr IV . BY DURATION [facility] Rx#: [id number] Norepinephrine 4 mg In 21.458 Sodium Chloride 0.9% 250 ml @ 0.05 MCG/KG/MIN 20. 765 mls/hr IV .[id number] [facility] Rx#:[id number] Piperacillin-Tazobactam 3 100 .375 gm In Sodium Chloride 0.9% 100 ml @ 25 mls/hr IVPB Q8HR [facility] Rx# :[id number] propofoL 1,000 mg In 305.019 200 152.539 Empty Bag 1 bag @ 15 MCG/ KG/MIN 9.81 mls/hr IV . [id number] [facility] Rx#:[id number] Tube Feeding 140 240 120 TPN/PPN 105 Sodium Acetate 18 meq 105 Calcium Gluconate 1 gm Magnesium Sulfate gm 0.5 gm Sodium Phosphate 9 mmol In Amino Acids 5 %/ Dextrose 20 % 1,000 ml @ 35 mls/hr IV .BY DURATION [facility] Rx#:[id number] Other 60 120 60 Output: Gastric Drainage 150 Urine 1585 2225 1230 Other: Voiding Method Indwelling Catheter Indwelling Catheter Indwelling Catheter ABP, PAP, CO, CI - Last Documented Arterial Blood Pressure 118/55 - Labs CBC & Chem 7: 05/06/24 04:35 05/06/24 04:35 Labs: Abnormal Lab Results - Last 24 Hours (Table) 05/06/24 05/06/24 05/06/24 Range/Units 04:35 04:35 04:35 RBC 2.55 L (4.30-5.90) m/uL Hgb 8.1 L (13.0-17.5) gm/dL Hct 27.1 L (39.0-53.0) % MCV 106.5 H (80.0-100.0) fL MCHC 29.8 L (31.0-37.0) g/dL RDW 23.7 H (11.5-15.5) % Lymphocytes # 0.6 L (1.0-4.8) k/uL Eosinophils # 0.9 H (0-0.7) k/uL Macrocytosis Marked A APTT 46.5 H (22.0-30.0) sec ABG pH (7.35-7.45) ABG pCO2 (35-45) mmHg ABG pO2 (83-108) mmHg ABG HCO3 (21-25) mmol/L ABG Total CO2 (19-24) mmol/L ABG O2 Saturation (94-97) % BUN 43 H (9-20) mg/dL Creatinine 2.04 H (0.66-1.25) mg/dL Calcium 7.5 L (8.4-10.2) mg/dL Phosphorus 4.9 H (2.5-4.5) mg/dL 05/06/24 Range/Units 06:26 RBC (4.30-5.90) m/uL Hgb (13.0-17.5) gm/dL Hct (39.0-53.0) % MCV (80.0-100.0) fL MCHC (31.0-37.0) g/dL RDW (11.5-15.5) % Lymphocytes # (1.0-4.8) k/uL Eosinophils # (0-0.7) k/uL Macrocytosis APTT (22.0-30.0) sec ABG pH 7.32 L (7.35-7.45) ABG pCO2 52 H (35-45) mmHg ABG pO2 121 H (83-108) mmHg ABG HCO3 27 H (21-25) mmol/L ABG Total CO2 29 H (19-24) mmol/L ABG O2 Saturation 100.0 H (94-97) % BUN (9-20) mg/dL Creatinine (0.66-1.25) mg/dL Calcium (8.4-10.2) mg/dL Phosphorus (2.5-4.5) mg/dL
[2024-05-06] MEDS: LACTATED RINGERS 1,000 ML IV SCH (17:22)
[2024-05-06 17:46] LABS: Glucose,Whole Blood 84 mg/dL (70-110)
--- NOTE | 2024-05-06 18:36 | P.PN ---
Subjective Progress Note Date: 05/06/24 This is a 63-year-old gentleman with extensive past medical history consistent of peripheral arterial disease as well as atrial fibrillation likely to be permanent as well as multiple comorbid conditions including recent diagnosis of cardiomyopathy and hypertension and dyslipidemia and diabetes and anemia was admitted to the hospital with shortness of breath. The patient recently had a stroke and apparently he cannot swallow. He has not been taking his oral medication and for that reason he went into A-fib with RVR and he was started on Cardizem IV. Eliquis was on hold because of anemia and also possible having PEG tube this coming Thursday May 02, 2024 The patient was seen and evaluated this morning with he is breathing has improved. His hypoxemia has improved as well. No symptoms of chest pain or chest discomfort. He continues to be in atrial fibrillation with controlled heart rate on the current dose of Cardizem IV. He is not on anticoagulation for the above reason. His mentation has improved significantly as well. He seems to be overall euvolemic on examination as well. Examination is remarkable for irregular rhythm with controlled heart rate and clear breathing sounds bila terally and mild bilateral lower extremities edema May 03, 2024 The patient was seen and evaluated this morning. His mentation has somewhat improved compared to before. His pressure has been marginally low and his creatinine is slightly increased compared to yesterday. Currently he is on Cardizem IV which I am going to stop and start the patient on amiodarone IV. Beside that he is not on any blood pressure medications. Anticoagulation is on hold at this point in the process of having a break tube placed tomorrow. No symptoms of chest pain or chest discomfort. Examination is remarkable for irregular rhythm with overall controlled heart rate and scattered bilateral rhonchi. May 04, 2024 Patient seen and examined at bedside. Patient was scheduled for a PEG tube placement yesterday. Before initiating the procedure patient had a asystole cardiac arrest requiring brief CPR and epinephrine. Patient had atrial fibrillation with uncontrolled rate after achieving ROSC. He is maintained on vent support May 05, 2024 Patient is seen and examined at bedside this a.m. He is maintained on vent support. No further concerns of blocks noticed on telemetry. He is maintained in rate control atrial fibrillation. May 06, 2024 Patient is seen and examined at bedside this a.m. He is maintained on ventilator support. He has been planned to undergo PEG tube placement tomorrow. Examination S1-S2 is audible, mild systolic murmur audible, irregular pulse On vent support, ET tube in place, good air entry in bilateral lung [place], mild crackles 1+ edema bilateral lower extremity Detailed neuroexam was not performed Assessment Asystole cardiac arrest, likely due to excessive amiodarone use. Change in mental status which has improved Hypoxemia which has improved Shortness of breath which has improved Atrial fibrillation with controlled heart rate on the current dose of Cardizem IV History of permanent atrial fibrillation Marginally low blood pressure Acute on chronic renal failure Multiple comorbid conditions including anemia Plan Continue amiodarone 200 mg daily Continue aspirin 81 mg, atorvastatin 40 mg daily. Continue metoprolol 25 mg twice daily. He is currently on Lasix 40 mg every 8 hours. He is still having significant congestion in bilateral lungs, will continue. Monitor renal function and electrolytes. Avoid using midodrine. Avoid using any IV pushes of amiodarone Continue IV heparin drip. Okay to proceed with PEG tube placement if needed. Okay to hold IV heparin 4 hours prior to the procedure. Objective - Vital Signs Vital signs: Vital Signs Temp 97.8 F 05/06/24 17:00 Pulse 106 H 05/06/24 17:00 Resp 22 05/06/24 17:00 BP 86/54 05/06/24 12:00 Pulse Ox 100 05/06/24 17:00 FiO2 40 05/06/24 17:36 Intake & Output 05/05/24 05/06/24 05/06/24 18:59 06:59 18:59 Intake Total 2097.019 1479 613.919 Output Total 1735 2225 1955 Balance 362.019 -746 -1341.081 Weight 109.4 kg Intake: IV 353 669 167 0.9 KVO 120 70 90 Lactated Ringers 1,000 ml 200 260 40 @ 20 mls/hr IV .Q24H [facility] Rx#:[id number] Magnesium Sulfate-D5w Pmx 100 1 gm In Dextrose/Water 1 100ml.bag @ 100 mls/hr IVPB ONCE ONE Rx#: [id number] Piperacillin-Tazobactam 3 200 10 .375 gm In Sodium Chloride 0.9% 100 ml @ 25 mls/hr IVPB Q8HR [facility] Rx# :[id number] pressure bag 33 39 27 Intake, IV Titration 1439.019 450 266.919 Amount Heparin Sod,Pork in 0.45% 250 NaCl 25,000 unit In 0.45 % NaCl 1 250ml.bag @ 9.35 UNITS/KG/HR 9.995 mls/hr IV .Q24H [facility] Rx#: [id number] Mvi, Adult No.4 with Vit 1034 K 10 ml Trace (Conc-1Ml/ Dose) 1 ml Sodium Acetate 18 meq Calcium Gluconate 1 gm Magnesium Sulfate gm 0.5 gm Sodium Phosphate 9 mmol In Amino Acids 5 %/Dextrose 20 % 1,000 ml @ 35 mls/hr IV . BY DURATION [facility] Rx#: [id number] Norepinephrine 4 mg In 21.458 Sodium Chloride 0.9% 250 ml @ 0.05 MCG/KG/MIN 20. 765 mls/hr IV .[id number] [facility] Rx#:[id number] Piperacillin-Tazobactam 3 100 .375 gm In Sodium Chloride 0.9% 100 ml @ 25 mls/hr IVPB Q8HR [facility] Rx# :[id number] propofoL 1,000 mg In 305.019 200 245.461 Empty Bag 1 bag @ 15 MCG/ KG/MIN 9.81 mls/hr IV . [id number] [facility] Rx#:[id number] Tube Feeding 140 240 120 TPN/PPN 105 Sodium Acetate 18 meq 105 Calcium Gluconate 1 gm Magnesium Sulfate gm 0.5 gm Sodium Phosphate 9 mmol In Amino Acids 5 %/ Dextrose 20 % 1,000 ml @ 35 mls/hr IV .BY DURATION [facility] Rx#:[id number] Other 60 120 60 Output: Gastric Drainage 150 Urine 1585 2225 1955 Other: Voiding Method Indwelling Catheter Indwelling Catheter Indwelling Catheter ABP, PAP, CO, CI - Last Documented Arterial Blood Pressure 110/56 - Labs CBC & Chem 7: 05/06/24 04:35 05/06/24 04:35 Labs: Abnormal Lab Results - Last 24 Hours (Table) 05/06/24 05/06/24 05/06/24 Range/Units 04:35 04:35 04:35 RBC 2.55 L (4.30-5.90) m/uL Hgb 8.1 L (13.0-17.5) gm/dL Hct 27.1 L (39.0-53.0) % MCV 106.5 H (80.0-100.0) fL MCHC 29.8 L (31.0-37.0) g/dL RDW 23.7 H (11.5-15.5) % Lymphocytes # 0.6 L (1.0-4.8) k/uL Eosinophils # 0.9 H (0-0.7) k/uL Macrocytosis Marked A APTT 46.5 H (22.0-30.0) sec ABG pH (7.35-7.45) ABG pCO2 (35-45) mmHg ABG pO2 (83-108) mmHg ABG HCO3 (21-25) mmol/L ABG Total CO2 (19-24) mmol/L ABG O2 Saturation (94-97) % BUN 43 H (9-20) mg/dL Creatinine 2.04 H (0.66-1.25) mg/dL Calcium 7.5 L (8.4-10.2) mg/dL Phosphorus 4.9 H (2.5-4.5) mg/dL 05/06/24 Range/Units 06:26 RBC (4.30-5.90) m/uL Hgb (13.0-17.5) gm/dL Hct (39.0-53.0) % MCV (80.0-100.0) fL MCHC (31.0-37.0) g/dL RDW (11.5-15.5) % Lymphocytes # (1.0-4.8) k/uL Eosinophils # (0-0.7) k/uL Macrocytosis APTT (22.0-30.0) sec ABG pH 7.32 L (7.35-7.45) ABG pCO2 52 H (35-45) mmHg ABG pO2 121 H (83-108) mmHg ABG HCO3 27 H (21-25) mmol/L ABG Total CO2 29 H (19-24) mmol/L ABG O2 Saturation 100.0 H (94-97) % BUN (9-20) mg/dL Creatinine (0.66-1.25) mg/dL Calcium (8.4-10.2) mg/dL Phosphorus (2.5-4.5) mg/dL
--- NOTE | 2024-05-06 21:06 | XR ---
EXAMINATION TYPE: XR chest 1V portable DATE OF EXAM: 05/06/2024 7:56 PM CLINICAL INDICATION:Male, 63 years old with history of confirm ETT placement; [facility] COMPARISON: Chest radiographs from TECHNIQUE: XR chest 1V portable Frontal view of the chest. FINDINGS: Stable support tubes. Similar findings of enlarged cardiac silhouette with pulmonary vascular congest ion as well as bilateral interstitial opacities. There is blunting of the costophrenic sulcus bilater ally. No acute osseous abnormalities. No discrete pneumothorax appreciated. IMPRESSION: Stable support tubes with relatively unchanged appearance of congestive heart failure and bilateral p leural effusions.
[2024-05-06 23:06] LABS: Glucose,Whole Blood 90 mg/dL (70-110)
[2024-05-07 04:05] LABS: Anisocytosis Marked; Basophils % (A) 1 %; Eosinophils # (A) 0.8 k/uL (0-0.7); Eosinophils % (A) 14 %; HCT 28.2 % (39.0-53.0); HGB 8.4 gm/dL (13.0-17.5); Hypochromasia Marked; Lymphocytes # (A) 0.7 k/uL (1.0-4.8); Lymphocytes % (A) 11 %; MCHC 29.7 g/dL (31.0-37.0); Macrocytosis Marked; Mean Platelet Volume 10.4; Monocytes # (A) 0.5 k/uL (0-1.0); Monocytes % (A) 8 %; Neutrophils # (A) 3.9 k/uL (1.3-7.7); Neutrophils % (A) 64 %; Platelet Count 169 k/uL (150-450); Poikilocytosis Moderate; RBC 2.62 m/uL (4.30-5.90); RDW 24.2 % (11.5-15.5); WBC 6.2 k/uL (3.8-10.6)
[2024-05-07 04:06] LABS: MCV 107.7 fL (80.0-100.0)
[2024-05-07 04:50] LABS: African American GFR (CKD) 35 (>60 ml/min/1.73 sqM); Anion Gap 8 mmol/L; Blood Urea Nitrogen 46 mg/dL (9-20); Calcium 7.6 mg/dL (8.4-10.2); Carbon Dioxide 25 mmol/L (22-30); Chloride 107 mmol/L (98-107); Glucose 79 mg/dL (74-99); Non-African American GFR(CKD) 30 (>60 ml/min/1.73 sqM); Potassium 4.4 mmol/L (3.5-5.1); Sodium 140 mmol/L (137-145)
[2024-05-07 05:46] LABS: Glucose,Whole Blood 91 mg/dL (70-110)
[2024-05-07 06:38] LABS: ABG HCO3 28 mmol/L (21-25); ABG Oxygen Saturation 99.9 % (94-97); ABG PCO2 45 mmHg (35-45); ABG PO2 115 mmHg (83-108); ABG TCO2 30 mmol/L (19-24); Allen Test Performed? Yes
--- NOTE | 2024-05-07 08:07 | XR ---
EXAMINATION TYPE: XR chest 1V portable DATE OF EXAM: 05/07/2024 COMPARISON: 05/06/2024 HISTORY: SOB, Follow Up FINDINGS: Indwelling tubes and catheters are unchanged. No change in the appearance of the chest compatible with congestive failure. Stable appearance of the cardio-mediastinal structures at this time. Pleural effusion unchanged. IMPRESSION: 1. Stable portable chest. Clinical correlation and follow up until resolution is recommended.
[2024-05-07 11:46] LABS: Glucose,Whole Blood 95 mg/dL (70-110)
--- NOTE | 2024-05-07 12:49 | P.PN ---
Subjective Patient is seen for follow-up for acute kidney injury and chronic kidney disease. status post cardiac arrest on 05/04/2024 prior to surgery for PEG tube placement.no major electrolyte abnormalities noted. Renal function is stable with serum creatinine - 2.0 mg/dL. maintained on IV Lasix, UOP at 75 - 100 mL an hour Objective - Vital Signs Vital signs: Vital Signs Temp 99.0 F 05/07/24 12:00 Pulse 101 H 05/07/24 12:26 Resp 22 05/07/24 12:00 BP 110/65 05/07/24 07:00 Pulse Ox 100 05/07/24 12:00 FiO2 35 05/07/24 12:19 Intake & Output 05/06/24 05/07/24 05/07/24 18:59 06:59 18:59 Intake Total 013.165 0204.032 476.503 Output Total 2155 2080 1110 Balance -1475.081 -1053.968 -633.497 Intake: IV 193 356 298 0.9 KVO 110 120 60 Lactated Ringers 1,000 ml 40 200 120 @ 20 mls/hr IV .Q24H [facility] Rx#:[id number] Piperacillin-Tazobactam 3 10 100 .375 gm In Sodium Chloride 0.9% 100 ml @ 25 mls/hr IVPB Q8HR [facility] Rx# :[id number] pressure bag 33 36 18 Intake, IV Titration 266.919 570.032 118.503 Amount Heparin Sod,Pork in 0.45% 250 45.178 NaCl 25,000 unit In 0.45 % NaCl 1 250ml.bag @ 9.35 UNITS/KG/HR 9.995 mls/hr IV .Q24H [facility] Rx#: [id number] Norepinephrine 4 mg In 21.458 26.510 37.791 Sodium Chloride 0.9% 250 ml @ 0.05 MCG/KG/MIN 20. 765 mls/hr IV .[id number] [facility] Rx#:[id number] Piperacillin-Tazobactam 3 100 .375 gm In Sodium Chloride 0.9% 100 ml @ 25 mls/hr IVPB Q8HR [facility] Rx# :[id number] propofoL 1,000 mg In 245.461 193.522 35.534 Empty Bag 1 bag @ 15 MCG/ KG/MIN 9.81 mls/hr IV . [id number] [facility] Rx#:[id number] Oral 60 Tube Feeding 160 100 Other 60 Output: Urine 2155 2080 1110 Stool 0 Other: Voiding Method Indwelling Catheter Indwelling Catheter Indwelling Catheter ABP, PAP, CO, CI - Last Documented Arterial Blood Pressure 94/49 - Exam patient is on the vent Examination of the heart S1 and S2 Examination lungs bilateral breath sounds are heard Abdomen is soft nontender Examination lower extremities shows no significant edema. - Labs CBC & Chem 7: 05/07/24 03:50 05/07/24 03:50 Labs: Abnormal Lab Results - Last 24 Hours (Table) 05/07/24 05/07/24 05/07/24 Range/Units 03:50 03:50 06:34 RBC 2.62 L (4.30-5.90) m/uL Hgb 8.4 L (13.0-17.5) gm/dL Hct 28.2 L (39.0-53.0) % MCV 107.7 H (80.0-100.0) fL MCHC 29.7 L (31.0-37.0) g/dL RDW 24.2 H (11.5-15.5) % Lymphocytes # 0.7 L (1.0-4.8) k/uL Eosinophils # 0.8 H (0-0.7) k/uL Macrocytosis Marked A ABG pO2 115 H (83-108) mmHg ABG HCO3 28 H (21-25) mmol/L ABG Total CO2 30 H (19-24) mmol/L ABG O2 Saturation 99.9 H (94-97) % BUN 46 H (9-20) mg/dL Creatinine 2.24 H (0.66-1.25) mg/dL Calcium 7.6 L (8.4-10.2) mg/dL Microbiology - Last 24 Hours (Table) 05/06/24 12:11 Gram Stain - Preliminary Sputum Sputum Culture - Preliminary Gram Neg Bacilli Assessment and Plan Assessment: 1. Acute kidney injury secondary to ATN secondary to acute blood loss anemia. Creatinine peaked at 2.7 this admission and stable at 1.9 - 2.0 No hydronephrosis noted on kidney ultrasound. UA fairly benign. Currently being diuresed. 2. Chronic kidney disease stage IV baseline creatinine 1.8-2.0 secondary to solitary right kidney. History of left nephrectomy. 3. Chronic systolic CHF ejection fraction of 35 to 40% with severe pulmonary hypertension. 4. Diabetes mellitus. 5. Hypernatremia from lack of oral water intake. Improved. 6. Hyperkalemia secondary to acute kidney injury and GI bleed. Resolved. 7. Peripheral vascular disease. 8. Acute blood loss anemia. No active bleeding. Status post blood transfusions and IV DDAVP. Also on Aranesp. GI following. Plan: maintain off of IV fluids. continue with IV Lasix. Chest x-ray does continue to show pulmonary vascular congestion. Repeat labs in a.m.
--- NOTE | 2024-05-07 12:50 | P.PN ---
Subjective Progress Note Date: 05/07/24 Principal diagnosis: Acute exacerbation of systolic congestive heart failure and acute cellulitis of right foot, cardiac arrest This is a 63-year-old white male with history of multiple medical problems including coronary artery disease, chronic atrial fibrillation, peripheral vessel occlusive disease, severe pulmonary hypertension, chronic obstructive pulmonary disease, patient normally sees Dr. Dillard on outpatient basis. Patient was never seen by a [employer]. Admitted this time with few days history of increased shortness of breath, and according to the his O2 saturation was down in the 60s. Patient was brought into the ER, chest x-ray showed evidence of pulmonary edema, VQ scan negative for pulmonary embolism, patient was admitted and this consult was initiated. Patient is not a great historian, most of the information was obtained from his , apparently the patient had history of CVA in the past, and he had a previous PEG tube placement Labs on admission showed relatively normal CBC, no leukocytosis, D-dimer was a bit elevated at 2.10 and renal profile was abnormal with BUN of 43 and creatinine 2.01 however BNP level was 12,300 and troponin was 0.043. Since admission, the patient received 1 dose of Lasix, and he is at least 1.5 L negative fluid balance The patient is seen today April 14, 2024 in follow-up on the selective care unit. He is currently sitting up at the bedside. Awake and alert in no acute distress. Breathing a bit easier today compared to yesterday. Currently maintaining good O2 saturations in the upper 90s on 3 L/min per nasal cannula. He is afebrile. Hemodynamically stable. Echocardiogram reveals impaired left ventricular systolic function with an ejection fraction of 35 to 40%. Severe pulmonary hypertension. Moderate to severely dilated left atrium. Right first toe culture is pending. Currently on Unasyn. Glucose 125. Being nourished with Glucerna at 51 MLS per hour via his PEG tube. Anticoagulated with Eliquis. Remains on diuretics. Making adequate urine. The patient is seen today April 15, 2024 in follow-up on the selective care unit. He is awake and alert in no acute distress. Maintaining O2 saturations in the 90s on 3 L/min per nasal cannula. Hemodynamically stable. White count 8.4. Hemoglobin 11.2. Platelets 321. Sodium 143. Potassium 4.9. Bicarb 29. BUN 45. Creatinine 1.99. Glucose 126. He is continued on Unasyn. Anticoagulated with Eliquis. Remains on bronchodilators. Remains on oral diuretics. Continued on Glucerna via his PEG tube. Barium swallow is pending so the patient can continue on tube feedings in the outpatient setting Patient was evaluated today on 04/16/2024, patient is doing well, comfortable, not in any distress, on 3 L nasal cannula with O2 sats of 96%. WBC is 8.5 hemoglobin 10.5 electrolytes are relatively normal with potassium of 5.2 BUN is 48 creatinine 1.94, steadily improving since admission patient had a successful swallow evaluation study that came back unremarkable. Progress note dated May 02, 2024. 63-year-old male who is now been in the hospital for about 3 weeks. Currently, he is on 2 L of oxygen by nasal cannula, getting saline at 75 cc an hour, Cardizem at 5 mg an hour, and TPN at 30 MLS per hour. He is sitting at the side of his bed. No respiratory distress or difficulty. The plan is to replace his PEG tube on Saturday. He apparently accidentally pulled it out. Current labs include sodium 141, potassium 4.9, chlorides 110, CO2 26, anion gap 5, BUN 35, creatinine 1.92. Glucose is 149. Albumin is 2.6. Calcium is 7.6. Chest x-ray from yesterday is consistent with cardiomegaly. Progress note dated May 03, 2024. 63-year-old male seen today in room 353. Currently, the patient is on nasal O2 at 2 L. He is not receiving any IV fluids. The patient continues on IV Unasyn. The patient is supposed to have a reinsertion of the PEG tube, that he accidentally pulled out, tomorrow, May 05. The patient has no specific complaints today. Current labs include a white count 6.4, hemoglobin 8.3, hemat ocrit 28.7, platelet count 274,000. Sodium 139, potassium 4.6, chlorides 108, CO2 28, BUN 37, creatinine 2.04. Glucose is 180. Albumin is 2.6. Patient was given today on 05/04/2024, patient was in the endoscopy suite to undergo PEG tube placement, apparently patient received mild sedation, and he went on to develop cardiopulmonary arrest. Patient had chest compression, received epinephrine, intubated in the meantime, and was sent back to ICU intubated and make ventilated. Patient is on assist-control rate of 16 tidal volume 500 FiO2 50%, PEEP of 8 ABG showed a pO2 of 62 pCO2 58 pH of 7.26. Hence his rate was increased to 20. And FiO2 was changed from 100% initially to 50%. Patient was not hypotensive requiring norepinephrine, however as soon as a left radial arterial line was placed, noted that her blood pressure was actually elevated, norepinephrine was discontinued. Patient is on amiodarone at 0.5 mg/min, he is receiving TPN, patient is on heparin drip, and his propofol dose is 10 mcg/kg/min. WBC count of 5.9 hemoglobin 8.7 INR is 1.2 chest x-ray postintubation showed evidence of congestive heart failure/interstitial edema and small right-sided pleural effusion patient will receive Lasix. He was seen again today on , patient is in the ICU, intubated, mechanicall y ventilated, he is on assist-control rate of 20 tidal volume 500 FiO2 50% and PEEP of 8 ABG showed a pO2 of 123 pCO2 47 pH of 7.35. No changes made in the ventilator settings except cutting down FiO2 to 45%. Patient remains on heparin drip, he is on propofol at 40 mcg/kg/min, receiving TPN at 35 cc/h patient is also on Zosyn. Still on Lasix at 40 mg IV push every 12 hours, chest x-ray continues to show evidence of interstitial edema/infiltrates. Patient required norepinephrine yesterday, and this has been off since 5 AM this morning. WBC count is 6.5 hemoglobin 7.9. Basic metabolic profile is normal BUN is 14 creatinine 1.83 slightly better compared to creatinine of 1.94 yesterday. After reviewing chest x-ray, patient was placed on Lasix 40 mg IV push every 12 hours. After reviewing the notes from general surgery were and the surgeon has no plans in the future to consider EGD again or PEG tube placement, recommended GI evaluation for possible PEG tube placement while the patient is intubated mechanically ventilated, and he seems to be definitely more stable now for PEG tube placement than he was prior to intubation. And will likely clear patient for PEG tube placement by cardiology prior to procedure Patient was today on 05/06/24, remains in the ICU, intubated and mechanically ventilated. Patient is on assist-control rate of 22 tidal volume 500 FiO2 45% PEEP of 8 ABG showed a pO2 of 121 pCO2 52 pH of 7.32 hence FiO2 was cut down to 40%. Chest x-ray is showing evidence of congestive heart failure however patient is improving with Lasix, and he is on Lasix now 40 mg IV push 3 times daily. Excellent urine output, remains on Zosyn. Remains on IV fluid at KVO, and propofol at 40 mcg/kg/min. Patient is sedated, however the patient will have sedation interruption today, and will be given a weaning trial although I have a feeling is not weanable yet. But at least patient will get a sedation interruption or sedation holiday today, and will be able to address hopefully his mental status sepsis. His x-ray is consistent with congestive heart failure, underlying infiltrates is not entirely ruled out. WBC count is 6.4 hemoglobin 8.1 PTT is 46.5 remains on heparin, basic metabolic profile is normal BUN is 43 creatinine 2.04 Patient was evaluated today on 05/07/24, remains in the ICU, remains intubated and mechanically ventilated, he is on assist-control rate of 22 tidal volume 500 FiO2 40% and PEEP of 8 ABG showed a pO2 of 115 pCO2 45 pH of 7.40 chest x-ray is showing slight improvement in his pulmonary edema continues to have some right lower lobe atelectasis and possibly pleural effusion patient is making over 150 cc of urine per hour. He is on propofol at 20 mcg/kg/min requiring a bit of norepinephrine at 0.02 mcg/kg/min and he remains on Zosyn as well as Lasix twice daily. Patient is arousable, opens eyes and closes eyes, but does not follow any other instruction he does close eyes upon instructions. Patient was supposed to have a PEG tube placement today, apparently gastroenterologic requesting cardiac and anesthesia clearance. Hence I have a strong feeling that the patient may have to eventually be transferred to a different institution after extubation for PEG tube placement meantime I plan to continue present supportive care measures and will eventually wean and extubate the patient hopefully in the next couple of days ideally patient is better off having his EGD and PEG tube placement while intubated and mechanically ventilated. She is extubated, it would be more risky to perform EGD and PEG tube placement labs showed WBC count of 6.2 hemoglobin 8.4 platelets are 169 basic metabolic profile is normal BUN is 46 creatinine 2.24 close to his baseline Objective - Vital Signs Vital signs: Vital Signs Temp 99.0 F 05/07/24 12:00 Pulse 101 H 05/07/24 12:26 Resp 22 05/07/24 12:00 BP 110/65 05/07/24 07:00 Pulse Ox 100 05/07/24 12:00 FiO2 35 05/07/24 12:19 Intake & Output 05/06/24 05/07/24 05/07/24 18:59 06:59 18:59 Intake Total 831.974 3248.032 476.503 Output Total 2155 2080 1110 Balance -1475.081 -1053.968 -633.497 Intake: IV 193 356 298 0.9 KVO 110 120 60 Lactated Ringers 1,000 ml 40 200 120 @ 20 mls/hr IV .Q24H [facility] Rx#:[id number] Piperacillin-Tazobactam 3 10 100 .375 gm In Sodium Chloride 0.9% 100 ml @ 25 mls/hr IVPB Q8HR [facility] Rx# :[id number] pressure bag 33 36 18 Intake, IV Titration 266.919 570.032 118.503 Amount Heparin Sod,Pork in 0.45% 250 45.178 NaCl 25,000 unit In 0.45 % NaCl 1 250ml.bag @ 9.35 UNITS/KG/HR 9.995 mls/hr IV .Q24H [facility] Rx#: [id number] Norepinephrine 4 mg In 21.458 26.510 37.791 Sodium Chloride 0.9% 250 ml @ 0.05 MCG/KG/MIN 20. 765 mls/hr IV .[id number] [facility] Rx#:[id number] Piperacillin-Tazobactam 3 100 .375 gm In Sodium Chloride 0.9% 100 ml @ 25 mls/hr IVPB Q8HR [facility] Rx# :[id number] propofoL 1,000 mg In 245.461 193.522 35.534 Empty Bag 1 bag @ 15 MCG/ KG/MIN 9.81 mls/hr IV . [id number] [facility] Rx#:[id number] Oral 60 Tube Feeding 160 100 Other 60 Output: Urine 215 2080 1110 Stool 0 Other: Voiding Method Indwelling Catheter Indwelling Catheter Indwelling Catheter ABP, PAP, CO, CI - Last Documented Arterial Blood Pressure 94/49 - Exam GENERAL EXAM: Reveals 63-year-old white male intubated mechanically ventilated sedated however the patient opens eyes and closes eyes upon instructions HEAD: Normocephalic. EYES: Normal reaction of pupils, equal size. NOSE: Clear with pink turbinates. THROAT: No erythema or exudates. Endotracheal tube and orogastric tube are intact. NECK: No masses, no JVD. CHEST: No chest wall deformity. LUNGS: Crackles at the bases no rhonchi no wheezes CVS: Regular rate and rhythm S1 and S2 normal with no audible murmur ABDOMEN: Soft nontender no megaly no rebound SKIN: No cyanosis CENTRAL NERVOUS SYSTEM: Could not fully assess, patient follows only simple instructions like closing eyes and opening eyes only EXTREMITIES: Right foot wrapped with sterile dressing - Labs CBC & Chem 7: 05/07/24 03:50 05/07/24 03:50 Labs: Abnormal Lab Results - Last 24 Hours (Table) 05/07/24 05/07/24 05/07/24 Range/Units 03:50 03:50 06:34 RBC 2.62 L (4.30-5.90) m/uL Hgb 8.4 L (13.0-17.5) gm/dL Hct 28.2 L (39.0-53.0) % MCV 107.7 H (80.0-100.0) fL MCHC 29.7 L (31.0-37.0) g/dL RDW 24.2 H (11.5-15.5) % Lymphocytes # 0.7 L (1.0-4.8) k/uL Eosinophils # 0.8 H (0-0.7) k/uL Macrocytosis Marked A ABG pO2 115 H (83-108) mmHg ABG HCO3 28 H (21-25) mmol/L ABG Total CO2 30 H (19-24) mmol/L ABG O2 Saturation 99.9 H (94-97) % BUN 46 H (9-20) mg/dL Creatinine 2.24 H (0.66-1.25) mg/dL Calcium 7.6 L (8.4-10.2) mg/dL Microbiology - Last 24 Hours (Table) 05/06/24 12:11 Gram Stain - Preliminary Sputum Sputum Culture - Preliminary Gram Neg Bacilli Assessment and Plan Assessment: Impression: Cardiac arrest requiring intubation mechanical ventilation patient had cardiac arrest before even having EGD/PEG tube placement according to the notes from surgery. 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 Acute on chronic stage IV kidney disease Acute blood loss anemia requiring 5 units of blood transfusion Electrolytes imbalance secondary to acute on chronic kidney disease Peripheral vessel occlusive disease and previous stenting of right SFA and right popliteal artery Severe pulmonary hypertension Paroxysmal atrial fibrillation, on anticoagulation therapy History of CVA with residual dysphagia requiring PEG tube placement Type 2 diabetes Cellulitis of right foot/diabetic foot ulcer Recommendation: Continue ventilatory support Taper down propofol and give the patient possibly today a trial of pressure support and CPAP and see if tolerated Continue antibiotics Continue amiodarone Continue nutritional support/TPN, patient is receiving nutritional support via orogastric tube. Continue anticoagulation therapy for his A-fib Continue GI prophylaxis Continue diuretics Lasix 40 mg IV push every 8 hour Continue to monitor renal status closely Continue to monitor in ICU Remains critically ill The patient is extubated, I would likely recommend transferring the patient to another institution for PEG tube placement Critical care is over 30 minutes Time with Patient: Greater than 30
--- NOTE | 2024-05-07 14:44 | P.PN ---
Subjective Progress Note Date: 05/06/24 Principal diagnosis: Reason for follow-up is right foot wound and cellulitis Patient is a 63-year-old male with a past medical history significant for diabetes mellitus hypertension hyperlipidemia pneumonia CVA TIA COPD patient did have a right big toe amputation done by and was recently admitted to the hospital concerning for pain to the right foot and cold feeling patient has been diagnosed with PAD and is s/p peripheral intervention by interventional cardiology with angioplasty of SFA and right popliteal arteries however unsuccessful angioplasty of the right anterior tibial artery patient presented to hospital with weakness hypoxemia. Patient apparently has pulled out his PEG tube and also developed A-fib with RVR for the patient was transferred to telemetry floor on 04/30/2024atient apparently did have a bradycardia arrhythmia/arrest at the time of PEG tube placement which was put on hold patient was intubated and has been transferred to the ICU on 05/04/2024. On today's evaluation that is 05/06/2024, patient has been afebrile, patient is intubated on the vent FiO2 is currently stable at 35% no significant purulent secretions through the ET diarrhea or any changes reported by nursing staff. Patient white count is 6.4 creatinine is 2.04 Objective - Vital Signs Vital signs: Vital Signs Temp 96.8 F L 05/06/24 12:00 Pulse 106 H 05/06/24 13:00 Resp 20 05/06/24 13:00 BP 86/54 05/06/24 12:00 Pulse Ox 100 05/06/24 13:00 FiO2 40 05/06/24 12:00 Intake & Output 05/05/24 05/06/24 05/06/24 18:59 06:59 18:59 Intake Total 2097.019 1479 423.654 Output Total 1735 2225 955 Balance 362.019 -746 -531.346 Weight 109.4 kg Intake: IV 353 669 115 0.9 KVO 120 70 50 Lactated Ringers 1,000 ml 200 260 40 @ 20 mls/hr IV .Q24H [facility] Rx#:[id number] Magnesium Sulfate-D5w Pmx 100 1 gm In Dextrose/Water 1 100ml.bag @ 100 mls/hr IVPB ONCE ONE Rx#: [id number] Piperacillin-Tazobactam 3 200 10 .375 gm In Sodium Chloride 0.9% 100 ml @ 25 mls/hr IVPB Q8HR [facility] Rx# :[id number] pressure bag 33 39 15 Intake, IV Titration 1439.019 450 148.654 Amount Heparin Sod,Pork in 0.45% 250 NaCl 25,000 unit In 0.45 % NaCl 1 250ml.bag @ 9.35 UNITS/KG/HR 9.995 mls/hr IV .Q24H [facility] Rx#: [id number] Mvi, Adult No.4 with Vit 1034 K 10 ml Trace (Conc-1Ml/ Dose) 1 ml Sodium Acetate 18 meq Calcium Gluconate 1 gm Magnesium Sulfate gm 0.5 gm Sodium Phosphate 9 mmol In Amino Acids 5 %/Dextrose 20 % 1,000 ml @ 35 mls/hr IV . BY DURATION [facility] Rx#: [id number] Norepinephrine 4 mg In 21.458 Sodium Chloride 0.9% 250 ml @ 0.05 MCG/KG/MIN 20. 765 mls/hr IV .[id number] [facility] Rx#:[id number] Piperacillin-Tazobactam 3 100 .375 gm In Sodium Chloride 0.9% 100 ml @ 25 mls/hr IVPB Q8HR [facility] Rx# :[id number] propofoL 1,000 mg In 305.019 200 127.196 Empty Bag 1 bag @ 15 MCG/ KG/MIN 9.81 mls/hr IV . [id number] [facility] Rx#:[id number] Tube Feeding 140 240 100 TPN/PPN 105 Sodium Acetate 18 meq 105 Calcium Gluconate 1 gm Magnesium Sulfate gm 0.5 gm Sodium Phosphate 9 mmol In Amino Acids 5 %/ Dextrose 20 % 1,000 ml @ 35 mls/hr IV .BY DURATION [facility] Rx#:[id number] Other 60 120 60 Output: Gastric Drainage 150 Urine 1585 2225 955 Other: Voiding Method Indwelling Catheter Indwelling Catheter Indwelling Catheter ABP, PAP, CO, CI - Last Documented Arterial Blood Pressure 111/51 - Exam GENERAL DESCRIPTION: Middle-age male intubated on the vent RESPIRATORY SYSTEM: Unlabored breathing , decreased breath sounds at bases HEART: S1 S2 regular rate and rhythm , ABDOMEN: Soft , no tenderness EXTREMITIES: Right foot wound wound is currently dressed - Labs CBC & Chem 7: 05/07/24 03:50 05/07/24 03:50 Labs: Abnormal Lab Results - Last 24 Hours (Table) 05/06/24 05/06/24 05/06/24 Range/Units 04:35 04:35 04:35 RBC 2.55 L (4.30-5.90) m/uL Hgb 8.1 L (13.0-17.5) gm/dL Hct 27.1 L (39.0-53.0) % MCV 106.5 H (80.0-100.0) fL MCHC 29.8 L (31.0-37.0) g/dL RDW 23.7 H (11.5-15.5) % Lymphocytes # 0.6 L (1.0-4.8) k/uL Eosinophils # 0.9 H (0-0.7) k/uL Macrocytosis Marked A APTT 46.5 H (22.0-30.0) sec ABG pH (7.35-7.45) ABG pCO2 (35-45) mmHg ABG pO2 (83-108) mmHg ABG HCO3 (21-25) mmol/L ABG Total CO2 (19-24) mmol/L ABG O2 Saturation (94-97) % BUN 43 H (9-20) mg/dL Creatinine 2.04 H (0.66-1.25) mg/dL Calcium 7.5 L (8.4-10.2) mg/dL Phosphorus 4.9 H (2.5-4.5) mg/dL 05/06/24 Range/Units 06:26 RBC (4.30-5.90) m/uL Hgb (13.0-17.5) gm/dL Hct (39.0-53.0) % MCV (80.0-100.0) fL MCHC (31.0-37.0) g/dL RDW (11.5-15.5) % Lymphocytes # (1.0-4.8) k/uL Eosinophils # (0-0.7) k/uL Macrocytosis APTT (22.0-30.0) sec ABG pH 7.32 L (7.35-7.45) ABG pCO2 52 H (35-45) mmHg ABG pO2 121 H (83-108) mmHg ABG HCO3 27 H (21-25) mmol/L ABG Total CO2 29 H (19-24) mmol/L ABG O2 Saturation 100.0 H (94-97) % BUN (9-20) mg/dL Creatinine (0.66-1.25) mg/dL Calcium (8.4-10.2) mg/dL Phosphorus (2.5-4.5) mg/dL Assessment and Plan (1) Cellulitis of right foot Current Visit: No Status: Acute Code(s): L03.115 - CELLULITIS OF RIGHT LOWER LIMB SNOMED Code(s): 53925204430782718 (2) Diabetic foot ulcer Current Visit: No Status: Acute Code(s): E11.621 - TYPE 2 DIABETES MELLITUS WITH FOOT ULCER; L97.509 - NON-PRESSURE CHRONIC ULCER OTH PRT UNSP FOOT W UNSP SEVERITY SNOMED Code(s): 091968906 Plan: 1patient presenting to the hospital mostly with generalized weakness low O2 sats possibly underlying cardiac etiology for the patient being managed by cardiology, patient also have a 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 2patient did have significant change in his clinical condition as he did have a cardiopulmonary arrest requiring intubation has been admitted to the ICU, sputum has been requested and there was concern for possible aspiration which is currently growing Jenae more likely colonizer continue with the Zosyn and monitor clinical course closely Dictation was produced using [employer] dictation software. please excuse any grammatical, word or spelling errors. Time with Patient: Less than 30
--- NOTE | 2024-05-07 14:45 | P.PN ---
Subjective Progress Note Date: 05/07/24 Principal diagnosis: Reason for follow-up is right foot wound and cellulitis Patient is a 63-year-old male with a past medical history significant for diabetes mellitus hypertension hyperlipidemia pneumonia CVA TIA COPD patient did have a right big toe amputation done by and was recently admitted to the hospital concerning for pain to the right foot and cold feeling patient has been diagnosed with PAD and is s/p peripheral intervention by interventional cardiology with angioplasty of SFA and right popliteal arteries however unsuccessful angioplasty of the right anterior tibial artery patient presented to hospital with weakness hypoxemia. Patient apparently has pulled out his PEG tube and also developed A-fib with RVR for the patient was transferred to telemetry floor on 04/30/2024atient apparently did have a bradycardia arrhythmia/arrest at the time of PEG tube placement which was put on hold patient was intubated and has been transferred to the ICU on 05/04/2024. On today's evaluation that is 05/07/2024, Patient is afebrile this morning patie nt remains to be on the ventilator FiO2 is at 35% no significant purulent secretions through the ET patient did have some drop in the blood pressure this morning has been started on Levophed as reported by nursing staff is currently waiting for PEG tube placement this afternoon no diarrhea has been reported. The patient white count is 6.2, creatinine is 2.24 Objective - Vital Signs Vital signs: Vital Signs Temp 99.0 F 05/07/24 12:00 Pulse 106 H 05/07/24 14:00 Resp 23 05/07/24 14:00 BP 110/65 05/07/24 07:00 Pulse Ox 98 05/07/24 14:00 FiO2 35 05/07/24 14:24 Intake & Output 05/06/24 05/07/24 05/07/24 18:59 06:59 18:59 Intake Total 599.627 7689.032 622.287 Output Total 2155 2080 1230 Balance -1475.081 -1053.968 -607.713 Intake: IV 193 356 364 0.9 KVO 110 120 80 Lactated Ringers 1,000 ml 40 200 120 @ 20 mls/hr IV .Q24H [facility] Rx#:[id number] Lactated Ringers 1,000 ml 40 @ 20 mls/hr IV .Q24H [facility] Rx#:[id number] Piperacillin-Tazobactam 3 10 100 .375 gm In Sodium Chloride 0.9% 100 ml @ 25 mls/hr IVPB Q8HR [facility] Rx# :[id number] pressure bag 33 36 24 Intake, IV Titration 266.919 570.032 138.287 Amount Heparin Sod,Pork in 0.45% 250 45.178 NaCl 25,000 unit In 0.45 % NaCl 1 250ml.bag @ 9.35 UNITS/KG/HR 9.995 mls/hr IV .Q24H [facility] Rx#: [id number] Norepinephrine 4 mg In 21.458 26.510 37.791 Sodium Chloride 0.9% 250 ml @ 0.05 MCG/KG/MIN 20. 765 mls/hr IV .[id number] [facility] Rx#:[id number] Piperacillin-Tazobactam 3 100 .375 gm In Sodium Chloride 0.9% 100 ml @ 25 mls/hr IVPB Q8HR [facility] Rx# :[id number] propofoL 1,000 mg In 245.461 193.522 55.318 Empty Bag 1 bag @ 15 MCG/ KG/MIN 9.81 mls/hr IV . [id number] [facility] Rx#:[id number] Oral 120 Tube Feeding 160 100 Other 60 Output: Urine 2155 2080 1230 Stool 0 Other: Voiding Method Indwelling Catheter Indwelling Catheter Indwelling Catheter ABP, PAP, CO, CI - Last Documented Arterial Blood Pressure 103/52 - Exam GENERAL DESCRIPTION: Middle-age male intubated on the vent RESPIRATORY SYSTEM: Unlabored breathing , decreased breath sounds at bases HEART: S1 S2 regular rate and rhythm , ABDOMEN: Soft , no tenderness EXTREMITIES: Right foot wound wound is currently dressed - Labs CBC & Chem 7: 05/07/24 03:50 05/07/24 03:50 Labs: Abnormal Lab Results - Last 24 Hours (Table) 05/07/24 05/07/24 05/07/24 Range/Units 03:50 03:50 06:34 RBC 2.62 L (4.30-5.90) m/uL Hgb 8.4 L (13.0-17.5) gm/dL Hct 28.2 L (39.0-53.0) % MCV 107.7 H (80.0-100.0) fL MCHC 29.7 L (31.0-37.0) g/dL RDW 24.2 H (11.5-15.5) % Lymphocytes # 0.7 L (1.0-4.8) k/uL Eosinophils # 0.8 H (0-0.7) k/uL Macrocytosis Marked A ABG pO2 115 H (83-108) mmHg ABG HCO3 28 H (21-25) mmol/L ABG Total CO2 30 H (19-24) mmol/L ABG O2 Saturation 99.9 H (94-97) % BUN 46 H (9-20) mg/dL Creatinine 2.24 H (0.66-1.25) mg/dL Calcium 7.6 L (8.4-10.2) mg/dL Microbiology - Last 24 Hours (Table) 05/06/24 12:11 Gram Stain - Preliminary Sputum Sputum Culture - Preliminary Gram Neg Bacilli Assessment and Plan (1) Cellulitis of right foot Current Visit: No Status: Acute Code(s): L03.115 - CELLULITIS OF RIGHT LOWER LIMB SNOMED Code(s): 12832594136218155 (2) Diabetic foot ulcer Current Visit: No Status: Acute Code(s): E11.621 - TYPE 2 DIABETES MELLITUS WITH FOOT ULCER; L97.509 - NON-PRESSURE CHRONIC ULCER OTH PRT UNSP FOOT W UNSP SEVERITY SNOMED Code(s): 783262528 Plan: 1patient presenting to the hospital mostly with generalized weakness low O2 sats possibly underlying cardiac etiology for the patient being managed by cardiology, patient also have a 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 2patient did have significant change in his clinical condition as he did have a cardiopulmonary arrest requiring intubation has been admitted to the ICU, sputum has been requested and there was concern for possible aspiration which is currently growing Jenae more likely colonizer continue with the Zosyn 3local wound care to the right foot wound with the Medihoney followed by moist dressing change daily discussed with the nursing staff Dictation was produced using [employer] dictation software. please excuse any grammatical, word or spelling errors. Time with Patient: Less than 30
--- NOTE | 2024-05-07 15:29 | P.PN ---
Subjective Progress Note Date: 05/07/24 Principal diagnosis: Anemia This is a pleasant 63-year-old male admitted 04/12/24 with complaints of dyspnea and weakness. He was admitted prior to that for limb ischemia and ce llulitis and has a history of right great toe amputation and wound which was debrided during this hospitalization. During that time he underwent stenting with Dr. Gonzalez on 04/08/2024. He has been on aspirin 81 mg daily, Plavix 75 mg daily and Eliquis 2.5 mg twice daily. Past medical history includes atrial fibrillation on Eliquis, chronic kidney disease, coronary artery disease status post recent stenting, COPD, CVA, diabetes mellitus, hyperlipidemia, hypertension, peripheral vascular disease, and PEG tube due to dysphagia following stroke. During this hospitalization patient had drop in hemoglobin requiring blood transfusion. Gastroenterology consulted for low hemoglobin and had performed EGD and colonoscopy on 04/24/2024. Upper endoscopy revealed no evidence of peptic ulcer disease or esophagitis. No active bleeding with an intact internal bumper of the PEG tube. Colonoscopy revealed small sigmoid colon polyp measuring between 3 to 4 mm in size which were not removed and the rest of the colon appeared normal. No active bleeding noted. Patient is still here since the initial hospitalization. Apparently during this hospitalization the patient had pulled out his PEG tube during this admission. Last PEG tube was placed by Dr. Zacarias in July 2022. All nutrition is received through his PEG tube feedings. General surgeon Dr. Looeny was consulted for PEG tube replacement. Patient was scheduled to undergo PEG tube placement on 05/04/2024 and apparently patient was given mild sedation and immediate only went into cardiopulmonary arrest. Chest compressions were started and patient was intubated. Procedure was canceled and patient was sent to the intensive care unit. Gastroenterology was consulted for PEG tube placement. Patient remains sedated and intubated in the ICU. Trying a sedation holiday today and patient is getting ready for extubation. However today he did have run of atrial fibrillation with hypotension and was started on Levophed. Cardiology has seen patient and states patient is cleared to undergo upper endoscopy with PEG tube placement, he is currently on a heparin drip. This may be discontinued prior to procedure according to cardiology note. 05/07/2024 Patient seen and examined today as a follow-up. He remains in the ICU sedated and intubated. He has been on Levophed throughout the night. Blood pressures 80s over 40s. Heparin drip was discontinued at 7 AM and tube feedings were held at midnight. Objective - Vital Signs Vital signs: Vital Signs Temp 98.0 F 05/07/24 08:00 Pulse 98 05/07/24 09:45 Resp 22 05/07/24 09:45 BP 110/65 05/07/24 07:00 Pulse Ox 100 05/07/24 09:45 FiO2 35 05/07/24 09:10 Intake & Output 05/06/24 05/07/24 05/07/24 18:59 06:59 18:59 Intake Total 506.201 4194.032 396.383 Output Total 2155 2080 810 Balance -1475.081 -1053.968 -413.617 Intake: IV 193 356 232 0.9 KVO 110 120 40 Lactated Ringers 1,000 ml 40 200 80 @ 20 mls/hr IV .Q24H [facility] Rx#:[id number] Piperacillin-Tazobactam 3 10 100 .375 gm In Sodium Chloride 0.9% 100 ml @ 25 mls/hr IVPB Q8HR [facility] Rx# :[id number] pressure bag 33 36 12 Intake, IV Titration 266.919 570.032 104.383 Amount Heparin Sod,Pork in 0.45% 250 45.178 NaCl 25,000 unit In 0.45 % NaCl 1 250ml.bag @ 9.35 UNITS/KG/HR 9.995 mls/hr IV .Q24H [facility] Rx#: [id number] Norepinephrine 4 mg In 21.458 26.510 23.671 Sodium Chloride 0.9% 250 ml @ 0.05 MCG/KG/MIN 20. 765 mls/hr IV .[id number] [facility] Rx#:[id number] Piperacillin-Tazobactam 3 100 .375 gm In Sodium Chloride 0.9% 100 ml @ 25 mls/hr IVPB Q8HR [facility] Rx# :[id number] propofoL 1,000 mg In 245.461 193.522 35.534 Empty Bag 1 bag @ 15 MCG/ KG/MIN 9.81 mls/hr IV . [id number] [facility] Rx#:[id number] Oral 60 Tube Feeding 160 100 Other 60 Output: Urine 2155 2080 810 Stool 0 Other: Voiding Method Indwelling Catheter Indwelling Catheter Indwelling Catheter ABP, PAP, CO, CI - Last Documented Arterial Blood Pressure 98/50 - Exam General appearance: The patient is alert, oriented, appears in no acute distress. HET: Head is normocephalic and atraumatic. Conjunctiva pink. Sclera anicteric. Neck: Supple without lymphadenopathy. Abdomen: Soft, nontender, nondistended. PEG tube in place. Extremities: Normal skin color and turgor. No pedal edema Skin: No rashes, no jaundice Neurological: No focal deficits. Alert and oriented. - Labs CBC & Chem 7: 05/07/24 03:50 05/07/24 03:50 Labs: Abnormal Lab Results - Last 24 Hours (Table) 05/07/24 05/07/24 05/07/24 Range/Units 03:50 03:50 06:34 RBC 2.62 L (4.30-5.90) m/uL Hgb 8.4 L (13.0-17.5) gm/dL Hct 28.2 L (39.0-53.0) % MCV 107.7 H (80.0-100.0) fL MCHC 29.7 L (31.0-37.0) g/dL RDW 24.2 H (11.5-15.5) % Lymphocytes # 0.7 L (1.0-4.8) k/uL Eosinophils # 0.8 H (0-0.7) k/uL Macrocytosis Marked A ABG pO2 115 H (83-108) mmHg ABG HCO3 28 H (21-25) mmol/L ABG Total CO2 30 H (19-24) mmol/L ABG O2 Saturation 99.9 H (94-97) % BUN 46 H (9-20) mg/dL Creatinine 2.24 H (0.66-1.25) mg/dL Calcium 7.6 L (8.4-10.2) mg/dL Microbiology - Last 24 Hours (Table) 05/06/24 12:11 Gram Stain - Preliminary Sputum Assessment and Plan (1) Presence of externally removable percutaneous endoscopic gastrostomy (PEG) tube Narrative/Plan: 63-year-old male with multiple comorbidities with history of CVA with dysphagia requiring PEG tube where he gets all of his nutrition which was placed many years ago last 1 placed in 2021. During this hospitalization patient has had some confusion and he pulled out his PEG tube. General surgery recently tried to replace PEG tube however patient had gone into cardiopulmonary arrest with anesthesia prior to procedure. Procedure was canceled, patient has stabilized and remains intubated with cardiology clearance to proceed with PEG tube placement. Plan for placement tomorrow. Keep patient intubated until procedure is completed. EGD and PEG tube canceled due to anesthesia's recommendation as patient is felt not to be stable for procedure. Current Visit: Yes Status: Acute Code(s): Z93.1 - GASTROSTOMY STATUS SNOMED Code(s): 119018313 (2) Anemia Current Visit: Yes Status: Acute Priority: High Code(s): D64.9 - ANEMIA, UNSPECIFIED SNOMED Code(s): 550840829 (3) Diabetes Current Visit: Yes Status: Acute Code(s): E11.9 - TYPE 2 DIABETES MELLITUS WITHOUT COMPLICATIONS SNOMED Code(s): 45782680 (4) Coronary artery disease Narrative/Plan: Recent cardiac stent within the last 1 month. Patient continues on aspirin, hold Plavix. Current Visit: Yes Status: Acute Code(s): I25.10 - ATHSCL HEART DISEASE OF [place] CORONARY ARTERY W/O ANG PCTRS SNOMED Code(s): 14424286 (5) Atrial fibrillation Narrative/Plan: On Eliquis, currently on hold Current Visit: Yes Status: Acute Priority: High Code(s): I48.91 - UNSPECIFIED ATRIAL FIBRILLATION SNOMED Code(s): 38358287 (6) Chronic kidney disease Current Visit: Yes Status: Acute Code(s): N18.9 - CHRONIC KIDNEY DISEASE, UNSPECIFIED SNOMED Code(s): 725398149 (7) Generalized weakness Current Visit: Yes Status: Acute Code(s): R53.1 - WEAKNESS SNOMED Code(s): 78475280 (8) Peripheral vascular disease Current Visit: No Status: Acute Code(s): I73.9 - PERIPHERAL VASCULAR DISEASE, UNSPECIFIED SNOMED Code(s): 235323682 (9) Dysphagia due to old cerebrovascular accident Current Visit: Yes Status: Acute Code(s): I69.391 - DYSPHAGIA FOLLOWING CEREBRAL INFARCTION SNOMED Code(s): 196898137 (10) Hypotension Current Visit: Yes Status: Acute Code(s): I95.9 - HYPOTENSION, UNSPECIFIED SNOMED Code(s): 27033988 (11) Cardiac arrest Current Visit: Yes Status: Acute Code(s): I46.9 - CARDIAC ARREST, CAUSE UNSPECIFIED SNOMED Code(s): 040020686 Plan: 1. Continue symptomatic and supportive care 2. Consult to anesthesia for clearance for upper endoscopy and PEG tube placem ent 3. 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 You may resume heparin drip 5. May resume tube feedings 6. Will reevaluate tomorrow, further recommendations forthcoming based on clinical course Thank you for this consultation, we will continue to follow. Dr. Nandini Villa I agree with the dictator's note, documented as a scribe by Fariba Carlson.
--- NOTE | 2024-05-07 15:29 | P.PN ---
Subjective Progress Note Date: 05/07/24 CHIEF COMPLAINT: Pulled out PEG tube HISTORY OF PRESENT ILLNESS: Patient is currently in the ICU intubated and on mechanical ventilation after cardiopulmonary arrest after mild sedation given for EGD. Patient is undergoing a trial of CPAP this afternoon. Peg tube placement that was with GI service was canceled for today. Patient was not cleared by anesthesia for PEG tube placement. PHYSICAL EXAM: VITAL SIGNS: Reviewed. GENERAL: no acute distress. ABDOMEN: Soft. Nondistended. Nontender. NEUROLOGIC: Patient intubated ASSESSMENT: 1. Moderate protein calorie malnutrition 2. Dysphagia 3. Acute CHF 4. A-fib 5. Cardiomyopathy 6. Peripheral arterial disease with angioplasty and stent to the right lower extremity earlier in April 7. Diabetes mellitus 8. Anemia PLAN: -No plans for PEG tube placement from surgical standpoint -Surgical service will sign off. Please call with any questions or concerns Physician [employer] Judge note has been reviewed by physician. Signing provider agrees with the documented findings, assessment, and plan of care. Objective - Vital Signs Vital signs: Vital Signs Temp 99.0 F 05/07/24 12:00 Pulse 103 H 05/07/24 15:00 Resp 22 05/07/24 15:00 BP 110/65 05/07/24 07:00 Pulse Ox 98 05/07/24 15:00 FiO2 35 05/07/24 14:24 Intake & Output 05/06/24 05/07/24 05/07/24 18:59 06:59 18:59 Intake Total 708.115 0311.032 675.287 Output Total 2155 2080 1380 Balance -1475.081 -1053.968 -704.713 Intake: IV 193 356 397 0.9 KVO 110 120 90 Lactated Ringers 1,000 ml 40 200 120 @ 20 mls/hr IV .Q24H [facility] Rx#:[id number] Lactated Ringers 1,000 ml 60 @ 20 mls/hr IV .Q24H [facility] Rx#:[id number] Piperacillin-Tazobactam 3 10 100 .375 gm In Sodium Chloride 0.9% 100 ml @ 25 mls/hr IVPB Q8HR [facility] Rx# :[id number] pressure bag 33 36 27 Intake, IV Titration 266.919 570.032 138.287 Amount Heparin Sod,Pork in 0.45% 250 45.178 NaCl 25,000 unit In 0.45 % NaCl 1 250ml.bag @ 9.35 UNITS/KG/HR 9.995 mls/hr IV .Q24H [facility] Rx#: [id number] Norepinephrine 4 mg In 21.458 26.510 37.791 Sodium Chloride 0.9% 250 ml @ 0.05 MCG/KG/MIN 20. 765 mls/hr IV .[id number] [facility] Rx#:[id number] Piperacillin-Tazobactam 3 100 .375 gm In Sodium Chloride 0.9% 100 ml @ 25 mls/hr IVPB Q8HR [facility] Rx# :[id number] propofoL 1,000 mg In 245.461 193.522 55.318 Empty Bag 1 bag @ 15 MCG/ KG/MIN 9.81 mls/hr IV . [id number] [facility] Rx#:[id number] Oral 120 Tube Feeding 160 100 20 Other 60 Output: Urine 2155 2080 1380 Stool 0 Other: Voiding Method Indwelling Catheter Indwelling Catheter Indwelling Catheter ABP, PAP, CO, CI - Last Documented Arterial Blood Pressure 107/52 - Labs CBC & Chem 7: 05/07/24 03:50 05/07/24 03:50 Labs: Abnormal Lab Results - Last 24 Hours (Table) 05/07/24 05/07/24 05/07/24 Range/Units 03:50 03:50 06:34 RBC 2.62 L (4.30-5.90) m/uL Hgb 8.4 L (13.0-17.5) gm/dL Hct 28.2 L (39.0-53.0) % MCV 107.7 H (80.0-100.0) fL MCHC 29.7 L (31.0-37.0) g/dL RDW 24.2 H (11.5-15.5) % Lymphocytes # 0.7 L (1.0-4.8) k/uL Eosinophils # 0.8 H (0-0.7) k/uL Macrocytosis Marked A ABG pO2 115 H (83-108) mmHg ABG HCO3 28 H (21-25) mmol/L ABG Total CO2 30 H (19-24) mmol/L ABG O2 Saturation 99.9 H (94-97) % BUN 46 H (9-20) mg/dL Creatinine 2.24 H (0.66-1.25) mg/dL Calcium 7.6 L (8.4-10.2) mg/dL Microbiology - Last 24 Hours (Table) 05/06/24 12:11 Gram Stain - Preliminary Sputum Sputum Culture - Preliminary Gram Neg Bacilli
[2024-05-07 15:49] LABS: ABG Base Excess 4.1 mmol/L; ABG HCO3 29 mmol/L (21-25); ABG Oxygen Saturation 94.5 % (94-97); ABG PCO2 44 mmHg (35-45); ABG PH 7.43 (7.35-7.45); ABG PO2 69 mmHg (83-108); ABG TCO2 30 mmol/L (19-24); Allen Test Performed? Yes
[2024-05-07 18:03] LABS: Glucose,Whole Blood 93 mg/dL (70-110)
--- NOTE | 2024-05-07 19:00 | P.PN ---
Subjective Progress Note Date: 05/07/24 Eveertt Juárez, is a 63-year-old male who presented to [facility] emergency room with a chief complaint of worsening shortness of breath and generalized weakness, patient was recently admitted to [facility] with peripheral vascular disease right foot osteomyelitis and underwent stenting of the right SFA by Dr. Dillard, he has a previous history of right great toe amputation. He was evaluated in the emergency room vital examination on presentation revealed a temperature of 98.9 pulse 110 respiration 18 blood pressure 114/72 pulse ox 96% on room air Laboratory data reveals a white blood count of 8.7 hemoglobin 11.4 platelet count 283 sodium 139 potassium 4.9 chloride 110 CO2 23 BUN 41 creatinine 2.01 D- dimer was elevated at 2.10, troponin level was elevated at 0.043 Testing in the emergency room revealed chest x-ray done in the emergency room revealed cardiomegaly and mild pulmonary vascular congestion suggestive of congestive heart failure, VQ scan showed no evidence for pulmonary embolism, EKG revealed atrial fibrillation with moderate T wave abnormalities suggestive of lateral ischemia. Patient was admitted to medical floor for further evaluation and treatment Past medical history is significant for history of atrial fibrillation, history of peripheral arterial disease with previous history of right great toe amputation, history of COPD, history of diabetes mellitus type 2, history of hyperkalemia, history of chronic kidney disease. On review of systems patient is alert and oriented x 3 in no apparent distress, he is complaining of generalized weakness, complaining of shortness of breath, which is worse with activity, and complaining of right foot pain, otherwise he denies any complaints, there is no fever or chills no headache or dizziness no chest pain, no cough no nausea or vomiting no abdominal pain no diarrhea and no urinary symptoms On 04/14/2024 patient is alert and oriented 3.Patient remains on IV Unasyn and IV Lasix. 2-D echo completed showing an EF of 35-40%. Current vital signs temp 98.3, heart 81, respiratory rate 18, blood pressure 135/67 with a pulse ox of 100% on 3 L. Patient reports improvement with shortness of breath. Patient denies nausea vomiting or diarrhea. Patient denies any urinary burning or frequency On 04/15/2024 Patient is alert and oriented 3. Patient remains on IV Unasyn. Patient has been transitioned to by mouth Lasix.Current vital signs temp 97.1, heart rate 98, respiratory rate 18, blood pressure 121/79 with pulse ox 96% on 3 L. Patient denies chest pain or shortness breath. Patient denies nausea vomiting or diarrhea. Patient denies any urinary burning or frequency. On 04/16/2024 he is alert and oriented x 3 in no apparent distress he reports improvement in his shortness of breath there is no fever or chills no headache or dizziness no chest pain no cough no nausea or vomiting no abdominal pain no diarrhea and no urinary symptoms. On 04/17/2024 patient is alert and oriented x 3. Current vital signs Temp 98.1, heart rate 100, respiratory rate 16, blood pressure 153/81 with a pulse ox of 97% on 2 L. Patient remains on IV Unasyn. Awaiting final antibiotic recommenda tions per ID. Patient denies chest pain or shortness of breath. Patient denies nausea vomiting or diarrhea. Patient denies any urinary burning or frequency. 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 Otherwise continue with current management will recheck in a.m.. On 04/19/2024 patient is alert and oriented x 3. Patient is maintained on 3 L n roberth cannula. Patient also maintained on IV Unasyn. Awaiting final IV recommendations from infectious disease. Current vital signs Temp 98.2, heart rate 82, blood pressure 116/70 with a pulse ox of 97% on 3 L patient denies chest pain or shortness of breath. Patient denies nausea vomiting or diarrhea. Patient denies any urinary burning or frequency On 04/20/2024 patient was seen and examined on the medical floor he is alert and oriented x 3 in no apparent distress, there is no fever or chills no headache or dizziness no chest pain no shortness of breath no cough no nausea or vomiting no abdominal pain no diarrhea no urinary symptoms, patient is still having difficulty with hyperkalemia, he is maintained on IV fluids and [facility] nephrology are following, will recheck labs in a.m. On 04/21/2024 patient is alert and oriented x 3. Potassium remains elevated at 5.9 awaiting further recommendations from nephrology standpoint. Patient denies chest pain or shortness of breath. Patient denies nausea vomiting or diarrhea. Patient denies any urinary burning or frequency On 04/22/2024 patient is alert and oriented x 3. Patient received 1 unit PRBCs for hemoglobin of 6.8 yesterday. GI services were consulted stool for occult blood ordered. Nephrology service is following for elevated potassium level. At this time patient denies chest pain or shortness of breath. Patient denies nausea vomiting or diarrhea. Patient denies any urinary burning frequency. On 04/23/2024 patient was seen and examined on the medical floor he is alert and oriented x 3 in no apparent distress, his hemoglobin today is again 6.01 unit of red blood cell transfusion was ordered, he was reevaluated by gastroenterology and plans are for EGD and colonoscopy tomorrow, otherwise he denies any complaints there is no fever or chills no headache or dizziness no chest pain no shortness of breath no cough no nausea or vomiting no abdominal pain no diarrhea no urinary symptoms On 04/24/2024 patient is alert and oriented 3. Plans for EGD and colonoscopy today with GI services.Patient had episodes of hypotension throughout night received IV bolus. Continue to transfuse patient for hemoglobin less than 7. Patient remains on IV Unasyn. This time patient denies chest pain or shortness breath. Patient denies nausea vomiting or diarrhea. Patient denies any urinary burning or frequency. On 04/25/2024 patient was seen and examined on the medical floor he is alert and oriented x 3 in no apparent distress there is no fever or chills no headache or dizziness no chest pain no shortness of breath no cough no nausea or vomiting no abdominal pain no diarrhea no urinary symptoms, hemoglobin is down again to 6.7 patient will be given 1 unit of red blood cell transfusion, EGD and colonoscopy results done yesterday were reviewed, at this time will consult Dr. Jackson regarding recurrent pneumonia requiring multiple red blood cell transfusion, continue with tube feeding at this time. On 04/26/2024 patient is alert and oriented x 3. Hemoglobin today 8.0. Awaiting oncology input. Patient denies chest pain or shortness of breath. Patient denies nausea vomiting or diarrhea. Patient denies any urinary burning or frequency. Current vital signs Temp 97.7, heart rate 91, respiratory rate 16, blood pressure 118/60 with pulse ox of 98% on 4 L On 04/27/2024 patient was seen and examined on the medical floor he is alert and oriented x 3 in no apparent distress he is complaining of generalized weakness otherwise he denies any specific complaints there is no fever or chills no headache or dizziness no chest pain no shortness of breath no cough no nausea or vomiting no abdominal pain no diarrhea no urinary symptoms. On 04/28/2024 patient was seen and examined on the medical floor he is alert and oriented x 3 in no apparent distress there is no fever or chills no headache or dizziness no chest pain no shortness of breath no cough no nausea or vomiting no abdominal pain no diarrhea and no urinary symptoms, hemoglobin is stabilizing around 8 will continue to monitor On 04/29/2024 patient is alert and oriented 3.heart rate elevated at 121 this AM. Patient being followed by cardiology services was given by mouth amiodarone awaiting further recommendations from cardiology services. Hemoglobin remained stable at 8.1. Patient denies chest pain or shortness of breath. Patient denies nausea vomiting or diarrhea. Patient denies any urinary burning or frequency On 04/30/2024 patient is alert resting comfortably in bed. Patient pulled out PEG tube yesterday. Patient unable to take pills by mouth. Surgical service is consulted for new PEG tube placement unable to do until Saturday due to patient being on Plavix Plavix currently on hold. Heart rate remains elevated Lopressor IV push has been ordered. Current vital signs temp 97.7, heart rate 127, blood pressure 118/72 with pulse ox 96% on 3 L. Patient denies chest pain or shortness of breath. Patient denies nausea vomiting or diarrhea. Patient denies any urinary burning or frequency on 05/01/2024 patient is resting comfortably in bed. Awaiting PEG tube placement on Saturday.current vital signs temp 98.1, heart rate 107, respiratory rate 18, blood pressure 115/73 with pulse ox 91% on 3 L. Patient denies chest pain or shortness of breath. Patient denies nausea vomiting or diarrhea On 05/02/2024 patient was seen and examined on the medical floor he is alert responsive in no apparent distress, there is no fever or chills no headache or dizziness no chest pain no shortness of breath no cough no nausea or vomiting no abdominal pain no diarrhea and no urinary symptoms, at this time we are awaiting replacement of his PEG tube, Plavix was held in that regard, PICC line was inserted and patient was started on TPN , continue current medications otherwise On 05/03/2024 patient is alert and oriented x 3 currently sitting up in bed. Per nursing staff patient is being switched to IV amiodarone for heart rate control. Patient was also started on TPN through PICC line. Patient to get PEG tube placement tomorrow and hopefully can restart back on p.o. medications for heart rate control. Patient denies chest pain or shortness of breath. Patient denies nausea vomiting or diarrhea. Patient denies any urinary burning or frequency. On 05/04/2024 patient was seen and examined in the ICU, he is currently intubated sedated maintained on mechanical ventilation, earlier this morning patient had cardiac arrest which required resuscitation and intubation and transfer to ICU, currently his vital examination reveals a temperature of 97.8 pulse 85 respiration 20 blood pressure 113/48 pulse ox 96% on mechanical ventilation FiO2 50% white blood count today 5.9 hemoglobin 8.7 platelet count 271 INR 1.2 arterial blood gas pH 7.26 P CO2 58 pO2 63 On 05/05/2025 for patient remains in the intensive care unit on mechanical ventilation.patient remains on IV heparin drip IV Lasix and IV Zosyn.current vital signs temp 97.5, heart rate 70, respiratory rate 14, blood pressure 113/63 with a pulse ox of 99% with an FiO2 of 50%. On 05/06/2024 patient remains in the intensive care unit on mechanical ventilation. Discussed with nursing staff to consult GI services for possible PEG tube placement prior to extubation.current vital signs temp 98.6, heart [id number],blood pressure 104/55 with pulse ox of 96% on an FiO2 of 40%. Patient remains on heparin drip. Patient remains on IV sedation of propofol On 05/07/2024 patient was seen and examined in the ICU he is intubated sedated maintained on mechanical ventilation, he has NG tube for feeding, awaiting replacement of his PEG tube, vital examination reveals a temperature of 98.2 pulse 112 respiration 21 blood pressure 105/50 pulse ox 97% on mechanical ventilation FiO2 35% white blood count is 6.2 hemoglobin 8.4 platelet count 169 BUN 46 creatinine 2.24 Objective - Vital Signs Vital signs: Vital Signs Temp 98.0 F 05/07/24 08:00 Pulse 92 05/07/24 08:00 Resp 22 05/07/24 08:00 BP 110/65 05/07/24 07:00 Pulse Ox 100 05/07/24 08:00 FiO2 40 05/07/24 08:00 Intake & Output 05/06/24 05/07/24 05/07/24 18:59 06:59 18:59 Intake Total 917.508 3517.032 120.106 Output Total 21540 335 Balance -1475.081 -1053.968 -214.894 Intake: IV 193 356 66 0.9 KVO 110 120 20 Lactated Ringers 1,000 ml 40 200 40 @ 20 mls/hr IV .Q24H MARY ANN Rx#:[id number] Piperacillin-Tazobactam 3 10 .375 gm In Sodium Chloride 0.9% 100 ml @ 25 mls/hr IVPB Q8HR MARY ANN Rx# :[id number] pressure bag 33 36 6 Intake, IV Titration 266.919 570.032 54.106 Amount Heparin Sod,Pork in 0.45% 250 45.178 NaCl 25,000 unit In 0.45 % NaCl 1 250ml.bag @ 9.35 UNITS/KG/HR 9.995 mls/hr IV .Q24H MARY ANN Rx#: [id number] Norepinephrine 4 mg In 21.458 26.510 8.928 Sodium Chloride 0.9% 250 ml @ 0.05 MCG/KG/MIN 20. 765 mls/hr IV .[id number] MARY ANN Rx#:[id number] Piperacillin-Tazobactam 3 100 .375 gm In Sodium Chloride 0.9% 100 ml @ 25 mls/hr IVPB Q8HR MARY ANN Rx# :[id number] propofoL 1,000 mg In 245.461 193.522 Empty Bag 1 bag @ 15 MCG/ KG/MIN 9.81 mls/hr IV . [id number] MARY ANN Rx#:[id number] Tube Feeding 160 100 Other 60 Output: Urine 2154 2079 335 Stool 0 Other: Voiding Method Indwelling Catheter Indwelling Catheter Indwelling Catheter ABP, PAP, CO, CI - Last Documented Arterial Blood Pressure 98/49 - Exam In general patient is alert and oriented x 3 in no distress HEENT head normocephalic and atraumatic Neck is supple no JVD no goiter no lymphadenopathy no carotid bruit Chest examination reveals a scattered crackles in both lung [place] no wheezing Cardiac exam reveals irregular heart sounds S1 and S2 no gallops no murmurs Abdomen is soft nontender no organomegaly with normal bowel sounds Extremity exam reveals no edema no cyanosis or clubbing, the right great toe is amputated with a large ulcer at the base of the amputated right great toe with purulent discharge Neurological examination reveals no gross focal deficits - Labs CBC & Chem 7: 05/07/24 03:50 05/07/24 03:50 Labs: Abnormal Lab Results - Last 24 Hours (Table) 05/07/24 05/07/24 05/07/24 Range/Units 03:50 03:50 06:34 RBC 2.62 L (4.30-5.90) m/uL Hgb 8.4 L (13.0-17.5) gm/dL Hct 28.2 L (39.0-53.0) % MCV 107.7 H (80.0-100.0) fL MCHC 29.7 L (31.0-37.0) g/dL RDW 24.2 H (11.5-15.5) % Lymphocytes # 0.7 L (1.0-4.8) k/uL Eosinophils # 0.8 H (0-0.7) k/uL Macrocytosis Marked A ABG pO2 115 H (83-108) mmHg ABG HCO3 28 H (21-25) mmol/L ABG Total CO2 30 H (19-24) mmol/L ABG O2 Saturation 99.9 H (94-97) % BUN 46 H (9-20) mg/dL Creatinine 2.24 H (0.66-1.25) mg/dL Calcium 7.6 L (8.4-10.2) mg/dL Microbiology - Last 24 Hours (Table) 05/06/24 12:11 Gram Stain - Preliminary Sputum Assessment and Plan Plan: Worsening shortness of breath, multifactorial, possibly related to acute congestive heart failure, and underlying COPD Atrial fibrillation, with rapid ventricular response on presentation, heart rate was 110 status post cardiac arrest requiring intubation and mechanical ventilation New onset cardiomyopathy. Anemia status post EGD and colonoscopy on 04/24/2024 Generalized weakness Large ulcer at the base of the right great toe with purulent discharge, patient was maintained on oral Augmentin as outpatient, infectious disease consultation requested Underlying history of peripheral arterial disease, with recent history of angioplasty and stent placement to the right lower extremity on 04/08/2024 Underlying history of diabetes mellitus Underlying history of chronic obstructive pulmonary disease Underlying history of chronic kidney disease Underlying history of hyperkalemia Underlying history of chronic continued tobacco abuse Patient pulled out PEG tube. Surgical surfaces consulted. Plans for PEG tube placement on 05/04/2024 patient transferred to the intensive care unit Maintained on mechanical ventilation For DVT prophylaxis,heparin drip. GI prophylaxis Pepcid cardiology, infectious disease,critical care, nephrology and surgical service is consulted Will follow closely
--- NOTE | 2024-05-07 19:21 | XR ---
EXAMINATION TYPE: XR chest 1V DATE OF EXAM: 05/07/2024 6:50 PM CLINICAL INDICATION:Male, 63 years old with history of Verify NG tube placement; [facility] COMPARISON: Chest radiograph from earlier this morning, 4:51 AM TECHNIQUE: XR chest 1V Frontal view of the chest. FINDINGS: Lungs/Pleura: Moderately large right pleural effusion is present. Small left pleural effusion. Mild c ardiomegaly. Pulmonary venous congestion. Musculoskeletal: No acute osseous pathology. Other findings: None Lines/Tubes: ET tube is gone. A right-sided PICC line remains. IMPRESSION: Small pleural effusions and mild cardiomegaly. Correlate with serum BNP
--- NOTE | 2024-05-07 21:48 | P.PN ---
Subjective Progress Note Date: 05/07/24 This is a 63-year-old gentleman with extensive past medical history consistent of peripheral arterial disease as well as atrial fibrillation likely to be permanent as well as multiple comorbid conditions including recent diagnosis of cardiomyopathy and hypertension and dyslipidemia and diabetes and anemia was admitted to the hospital with shortness of breath. The patient recently had a stroke and apparently he cannot swallow. He has not been taking his oral medication and for that reason he went into A-fib with RVR and he was started on Cardizem IV. Eliquis was on hold because of anemia and also possible having PEG tube this coming Thursday May 02, 2024 The patient was seen and evaluated this morning with he is breathing has improved. His hypoxemia has improved as well. No symptoms of chest pain or chest discomfort. He continues to be in atrial fibrillation with controlled heart rate on the current dose of Cardizem IV. He is not on anticoagulation for the above reason. His mentation has improved significantly as well. He seems to be overall euvolemic on examination as well. Examination is remarkable for irregular rhythm with controlled heart rate and clear breathing sounds bila terally and mild bilateral lower extremities edema May 03, 2024 The patient was seen and evaluated this morning. His mentation has somewhat improved compared to before. His pressure has been marginally low and his creatinine is slightly increased compared to yesterday. Currently he is on Cardizem IV which I am going to stop and start the patient on amiodarone IV. Beside that he is not on any blood pressure medications. Anticoagulation is on hold at this point in the process of having a break tube placed tomorrow. No symptoms of chest pain or chest discomfort. Examination is remarkable for irregular rhythm with overall controlled heart rate and scattered bilateral rhonchi. May 04, 2024 Patient seen and examined at bedside. Patient was scheduled for a PEG tube placement yesterday. Before initiating the procedure patient had a asystole cardiac arrest requiring brief CPR and epinephrine. Patient had atrial fibrillation with uncontrolled rate after achieving ROSC. He is maintained on vent support May 05, 2024 Patient is seen and examined at bedside this a.m. He is maintained on vent support. No further concerns of blocks noticed on telemetry. He is maintained in rate control atrial fibrillation. May 06, 2024 Patient is seen and examined at bedside this a.m. He is maintained on ventilator support. He has been planned to undergo PEG tube placement tomorrow. May 07, 2024 Patient seen and examined at bedside this a.m. He continues to be on ventilator support. Today his systolic blood pressure is running a bit low therefore he is requiring low-dose of norepinephrine to supplement his blood pressure. Examination S1-S2 is audible, mild systolic murmur audible, irregular pulse On vent support, ET tube in place, good air entry in bilateral lung layton, mild crackles 1+ edema bilateral lower extremity Detailed neuroexam was not performed Assessment Asystole cardiac arrest, likely due to excessive amiodarone use. Change in mental status which has improved Hypoxemia which has improved Shortness of breath which has improved Atrial fibrillation with controlled heart rate on the current dose of Cardizem IV History of permanent atrial fibrillation Marginally low blood pressure Acute on chronic renal failure Multiple comorbid conditions including anemia Plan Continue amiodarone 200 mg daily Continue aspirin 81 mg, atorvastatin 40 mg daily. Continue metoprolol 25 mg twice daily. Reduce Lasix to 40 mg twice daily from tomorrow, continue TID today He is still having significant congestion in bilateral lungs, will continue. Monitor renal function and electrolytes. Avoid using midodrine. Avoid using any IV pushes of amiodarone Continue IV heparin drip. Plan for breathing trial tomorrow. Objective - Vital Signs Vital signs: Vital Signs Temp 97.7 F 05/07/24 20:00 Pulse 103 H 05/07/24 21:15 Resp 24 05/07/24 21:15 BP 110/65 05/07/24 21:15 Pulse Ox 99 05/07/24 21:15 FiO2 40 05/07/24 20:00 Intake & Output 05/07/24 05/07/24 05/08/24 06:59 18:59 06:59 Intake Total 1026.032 924.287 399.566 Output Total 2080 2490 800 Balance -1053.968 -1565.713 -400.434 Weight 109.4 kg Intake: IV 356 562 166 0.9 KVO 120 140 20 Lactated Ringers 1,000 ml 200 120 @ 20 mls/hr IV .Q24H [facility] Rx#:[id number] Lactated Ringers 1,000 ml 160 40 @ 20 mls/hr IV .Q24H [facility]ARY ANN Rx#:[id number] Piperacillin-Tazobactam 3 100 100 .375 gm In Sodium Chloride 0.9% 100 ml @ 25 mls/hr IVPB Q8HR [facility] Rx# :[id number] pressure bag 36 42 6 Intake, IV Titration 570.032 138.287 165.566 Amount Heparin Sod,Pork in 0.45% 250 45.178 NaCl 25,000 unit In 0.45 % NaCl 1 250ml.bag @ 9.35 UNITS/KG/HR 9.995 mls/hr IV .Q24H [facility] Rx#: [id number] Norepinephrine 4 mg In 26.510 37.791 165.566 Sodium Chloride 0.9% 250 ml @ 0.05 MCG/KG/MIN 20. 765 mls/hr IV .[id number] [facility] Rx#:[id number] Piperacillin-Tazobactam 3 100 .375 gm In Sodium Chloride 0.9% 100 ml @ 25 mls/hr IVPB Q8HR [facility] Rx# :[id number] propofoL 1,000 mg In 193.522 55.318 Empty Bag 1 bag @ 15 MCG/ KG/MIN 9.81 mls/hr IV . [id number] [facility] Rx#:[id number] Oral 120 Tube Feeding 100 74 68 Other 30 Output: Urine 2080 2490 800 Stool 0 Other: Voiding Method Indwelling Catheter Indwelling Catheter Indwelling Catheter ABP, PAP, CO, CI - Last Documented Arterial Blood Pressure 102/55 - Labs CBC & Chem 7: 05/07/24 03:50 05/07/24 03:50 Labs: Abnormal Lab Results - Last 24 Hours (Table) 05/07/24 05/07/24 05/07/24 Range/Units 03:50 03:50 06:34 RBC 2.62 L (4.30-5.90) m/uL Hgb 8.4 L (13.0-17.5) gm/dL Hct 28.2 L (39.0-53.0) % MCV 107.7 H (80.0-100.0) fL MCHC 29.7 L (31.0-37.0) g/dL RDW 24.2 H (11.5-15.5) % Lymphocytes # 0.7 L (1.0-4.8) k/uL Eosinophils # 0.8 H (0-0.7) k/uL Macrocytosis Marked A APTT (22.0-30.0) sec ABG pO2 115 H (83-108) mmHg ABG HCO3 28 H (21-25) mmol/L ABG Total CO2 30 H (19-24) mmol/L ABG O2 Saturation 99.9 H (94-97) % BUN 46 H (9-20) mg/dL Creatinine 2.24 H (0.66-1.25) mg/dL Calcium 7.6 L (8.4-10.2) mg/dL 05/07/24 05/07/24 Range/Units 15:48 20:45 RBC (4.30-5.90) m/uL Hgb (13.0-17.5) gm/dL Hct (39.0-53.0) % MCV (80.0-100.0) fL MCHC (31.0-37.0) g/dL RDW (11.5-15.5) % Lymphocytes # (1.0-4.8) k/uL Eosinophils # (0-0.7) k/uL Macrocytosis APTT 45.0 H (22.0-30.0) sec ABG pO2 69 L (83-108) mmHg ABG HCO3 29 H (21-25) mmol/L ABG Total CO2 30 H (19-24) mmol/L ABG O2 Saturation (94-97) % BUN (9-20) mg/dL Creatinine (0.66-1.25) mg/dL Calcium (8.4-10.2) mg/dL Microbiology - Last 24 Hours (Table) 05/06/24 12:11 Gram Stain - Preliminary Sputum Sputum Culture - Preliminary Gram Neg Bacilli
[2024-05-07 23:49] LABS: Glucose,Whole Blood 105 mg/dL (70-110)
[2024-05-08 02:27] LABS: Anisocytosis Moderate; Basophils % (A) 1 %; Eosinophils # (A) 0.6 k/uL (0-0.7); Eosinophils % (A) 9 %; HCT 28.3 % (39.0-53.0); HGB 8.5 gm/dL (13.0-17.5); Hypochromasia Marked; Lymphocytes # (A) 0.8 k/uL (1.0-4.8); Lymphocytes % (A) 11 %; MCH 31.6 pg (25.0-35.0); MCHC 30.2 g/dL (31.0-37.0); MCV 104.5 fL (80.0-100.0); Mean Platelet Volume 9.3; Monocytes # (A) 0.5 k/uL (0-1.0); Monocytes % (A) 8 %; Neutrophils # (A) 4.6 k/uL (1.3-7.7); Neutrophils % (A) 69 %; Platelet Count 202 k/uL (150-450); Poikilocytosis Moderate; RDW 22.7 % (11.5-15.5); WBC 6.7 k/uL (3.8-10.6)
[2024-05-08 03:04] LABS: Macrocytosis Marked
[2024-05-08 03:10] LABS: Sodium 139 mmol/L (137-145)
[2024-05-08 03:44] LABS: ALT 38 U/L (4-49); AST 91 U/L (17-59); African American GFR (CKD) 31 (>60 ml/min/1.73 sqM); Albumin 2.7 g/dL (3.5-5.0); Alkaline Phosphatase 83 U/L (38-126); Anion Gap 7 mmol/L; Blood Urea Nitrogen 47 mg/dL (9-20); Calcium 7.8 mg/dL (8.4-10.2); Carbon Dioxide 27 mmol/L (22-30); Chloride 105 mmol/L (98-107); Glucose 109 mg/dL (74-99); Non-African American GFR(CKD) 26 (>60 ml/min/1.73 sqM); Total Bilirubin 0.8 mg/dL (0.2-1.3); Total Protein 5.4 g/dL (6.3-8.2)
[2024-05-08 05:44] LABS: Glucose,Whole Blood 118 mg/dL (70-110)
--- NOTE | 2024-05-08 08:06 | XR ---
EXAMINATION TYPE: XR chest 1V DATE OF EXAM: 05/08/2024 HISTORY: Shortness of breath. COMPARISON: 05/07/2024 TECHNIQUE: Single view of the chest is submitted. FINDINGS: Demonstrated are scattered senescent parenchymal change. Continued cardiomegaly with pulmonary venous congestion and scattered infiltrates and effusions felt to reflect congestive failure. NG tube is seen coursing into the stomach. Right-sided PICC line in pl gordon. Hilar and mediastinal structures are within normal limits. Degenerative changes are seen of the dorsal spine. IMPRESSION: 1. Continued cardiomegaly with pulmonary venous congestion and scattered infiltrates and effusions f elt to reflect congestive failure. NG tube is seen coursing into the stomach. Right-sided PICC line i n place.
[2024-05-08] MEDS: FAMOTIDINE 20 MG/2 ML VIAL IV SCH (08:36)
[2024-05-08] MEDS: IPRATROPIUM-ALBUTEROL 3 ML NEB INHALATION SCH (09:00)
--- NOTE | 2024-05-08 09:02 | US ---
EXAMINATION TYPE: US chest DATE OF EXAM: 05/08/2024 COMPARISON: NONE CLINICAL INDICATION: Male, 63 years old with history of Markings for thoracentesis by pulmonary staff ; Plueral effusion TECHNIQUE: Targeted ultrasound of the posterior lower right hemithorax EXAM MEASUREMENTS: Right Pleural Effusion pocket size: 7.9 cm Right skin surface to fluid distance: 2.7 cm lung tissue visualized 3.7 cm in fluid pocket. Right side marked for possible thoracentesis outside the dept. Pulmonologists are able to review the images in the patient?s EMR. IMPRESSIONS: As above
--- NOTE | 2024-05-08 10:17 | P.PN ---
Subjective Progress Note Date: 05/08/24 Everett Juárez, is a 63-year-old male who presented to [facility] emergency room with a chief complaint of worsening shortness of breath and generalized weakness, patient was recently admitted to [facility] with peripheral vascular disease right foot osteomyelitis and underwent stenting of the right SFA by Dr. Dillard, he has a previous history of right great toe amputation. He was evaluated in the emergency room vital examination on presentation revealed a temperature of 98.9 pulse 110 respiration 18 blood pressure 114/72 pulse ox 96% on room air Laboratory data reveals a white blood count of 8.7 hemoglobin 11.4 platelet count 283 sodium 139 potassium 4.9 chloride 110 CO2 23 BUN 41 creatinine 2.01 D- dimer was elevated at 2.10, troponin level was elevated at 0.043 Testing in the emergency room revealed chest x-ray done in the emergency room revealed cardiomegaly and mild pulmonary vascular congestion suggestive of congestive heart failure, VQ scan showed no evidence for pulmonary embolism, EKG revealed atrial fibrillation with moderate T wave abnormalities suggestive of lateral ischemia. Patient was admitted to medical floor for further evaluation and treatment Past medical history is significant for history of atrial fibrillation, history of peripheral arterial disease with previous history of right great toe amputation, history of COPD, history of diabetes mellitus type 2, history of hyperkalemia, history of chronic kidney disease. On review of systems patient is alert and oriented x 3 in no apparent distress, he is complaining of generalized weakness, complaining of shortness of breath, which is worse with activity, and complaining of right foot pain, otherwise he denies any complaints, there is no fever or chills no headache or dizziness no chest pain, no cough no nausea or vomiting no abdominal pain no diarrhea and no urinary symptoms On 04/14/2024 patient is alert and oriented 3.Patient remains on IV Unasyn and IV Lasix. 2-D echo completed showing an EF of 35-40%. Current vital signs temp 98.3, heart 81, respiratory rate 18, blood pressure 135/67 with a pulse ox of 100% on 3 L. Patient reports improvement with shortness of breath. Patient denies nausea vomiting or diarrhea. Patient denies any urinary burning or frequency On 04/15/2024 Patient is alert and oriented 3. Patient remains on IV Unasyn. Patient has been transitioned to by mouth Lasix.Current vital signs temp 97.1, heart rate 98, respiratory rate 18, blood pressure 121/79 with pulse ox 96% on 3 L. Patient denies chest pain or shortness breath. Patient denies nausea vomiting or diarrhea. Patient denies any urinary burning or frequency. On 04/16/2024 he is alert and oriented x 3 in no apparent distress he reports improvement in his shortness of breath there is no fever or chills no headache or dizziness no chest pain no cough no nausea or vomiting no abdominal pain no diarrhea and no urinary symptoms. On 04/17/2024 patient is alert and oriented x 3. Current vital signs Temp 98.1, heart rate 100, respiratory rate 16, blood pressure 153/81 with a pulse ox of 97% on 2 L. Patient remains on IV Unasyn. Awaiting final antibiotic recommenda tions per ID. Patient denies chest pain or shortness of breath. Patient denies nausea vomiting or diarrhea. Patient denies any urinary burning or frequency. On 04/18/2024 patient was seen and examined on the medical floor he is alert and oriented x 3 in no apparent distress there is no fever or chills no headache or dizziness no chest pain no shortness of breath no cough no nausea or vomiting no abdominal pain no diarrhea no urinary symptoms, he is still maintained on oxygen supplements, patient need to be assessed for need for home oxygen, he is also maintained on tube feeding, egg caser is working on arrangement for tube feeding at home. Otherwise continue with current management will recheck in a.m.. On 04/19/2024 patient is alert and oriented x 3. Patient is maintained on 3 L n roberth cannula. Patient also maintained on IV Unasyn. Awaiting final IV recommendations from infectious disease. Current vital signs Temp 98.2, heart rate 82, blood pressure 116/70 with a pulse ox of 97% on 3 L patient denies chest pain or shortness of breath. Patient denies nausea vomiting or diarrhea. Patient denies any urinary burning or frequency On 04/20/2024 patient was seen and examined on the medical floor he is alert and oriented x 3 in no apparent distress, there is no fever or chills no headache or dizziness no chest pain no shortness of breath no cough no nausea or vomiting no abdominal pain no diarrhea no urinary symptoms, patient is still having difficulty with hyperkalemia, he is maintained on IV fluids and [facility] nephrology are following, will recheck labs in a.m. On 04/21/2024 patient is alert and oriented x 3. Potassium remains elevated at 5.9 awaiting further recommendations from nephrology standpoint. Patient denies chest pain or shortness of breath. Patient denies nausea vomiting or diarrhea. Patient denies any urinary burning or frequency On 04/22/2024 patient is alert and oriented x 3. Patient received 1 unit PRBCs for hemoglobin of 6.8 yesterday. GI services were consulted stool for occult blood ordered. Nephrology service is following for elevated potassium level. At this time patient denies chest pain or shortness of breath. Patient denies nausea vomiting or diarrhea. Patient denies any urinary burning frequency. On 04/23/2024 patient was seen and examined on the medical floor he is alert and oriented x 3 in no apparent distress, his hemoglobin today is again 6.01 unit of red blood cell transfusion was ordered, he was reevaluated by gastroenterology and plans are for EGD and colonoscopy tomorrow, otherwise he denies any complaints there is no fever or chills no headache or dizziness no chest pain no shortness of breath no cough no nausea or vomiting no abdominal pain no diarrhea no urinary symptoms On 04/24/2024 patient is alert and oriented 3. Plans for EGD and colonoscopy today with GI services.Patient had episodes of hypotension throughout night received IV bolus. Continue to transfuse patient for hemoglobin less than 7. Patient remains on IV Unasyn. This time patient denies chest pain or shortness breath. Patient denies nausea vomiting or diarrhea. Patient denies any urinary burning or frequency. On 04/25/2024 patient was seen and examined on the medical floor he is alert and oriented x 3 in no apparent distress there is no fever or chills no headache or dizziness no chest pain no shortness of breath no cough no nausea or vomiting no abdominal pain no diarrhea no urinary symptoms, hemoglobin is down again to 6.7 patient will be given 1 unit of red blood cell transfusion, EGD and colonoscopy results done yesterday were reviewed, at this time will consult Dr. Jackson regarding recurrent pneumonia requiring multiple red blood cell transfusion, continue with tube feeding at this time. On 04/26/2024 patient is alert and oriented x 3. Hemoglobin today 8.0. Awaiting oncology input. Patient denies chest pain or shortness of breath. Patient denies nausea vomiting or diarrhea. Patient denies any urinary burning or frequency. Current vital signs Temp 97.7, heart rate 91, respiratory rate 16, blood pressure 118/60 with pulse ox of 98% on 4 L On 04/27/2024 patient was seen and examined on the medical floor he is alert and oriented x 3 in no apparent distress he is complaining of generalized weakness otherwise he denies any specific complaints there is no fever or chills no headache or dizziness no chest pain no shortness of breath no cough no nausea or vomiting no abdominal pain no diarrhea no urinary symptoms. On 04/28/2024 patient was seen and examined on the medical floor he is alert and oriented x 3 in no apparent distress there is no fever or chills no headache or dizziness no chest pain no shortness of breath no cough no nausea or vomiting no abdominal pain no diarrhea and no urinary symptoms, hemoglobin is stabilizing around 8 will continue to monitor On 04/29/2024 patient is alert and oriented 3.heart rate elevated at 121 this AM. Patient being followed by cardiology services was given by mouth amiodarone awaiting further recommendations from cardiology services. Hemoglobin remained stable at 8.1. Patient denies chest pain or shortness of breath. Patient denies nausea vomiting or diarrhea. Patient denies any urinary burning or frequency On 04/30/2024 patient is alert resting comfortably in bed. Patient pulled out PEG tube yesterday. Patient unable to take pills by mouth. Surgical service is consulted for new PEG tube placement unable to do until Saturday due to patient being on Plavix Plavix currently on hold. Heart rate remains elevated Lopressor IV push has been ordered. Current vital signs temp 97.7, heart rate 127, blood pressure 118/72 with pulse ox 96% on 3 L. Patient denies chest pain or shortness of breath. Patient denies nausea vomiting or diarrhea. Patient denies any urinary burning or frequency on 05/01/2024 patient is resting comfortably in bed. Awaiting PEG tube placement on Saturday.current vital signs temp 98.1, heart rate 107, respiratory rate 18, blood pressure 115/73 with pulse ox 91% on 3 L. Patient denies chest pain or shortness of breath. Patient denies nausea vomiting or diarrhea On 05/02/2024 patient was seen and examined on the medical floor he is alert responsive in no apparent distress, there is no fever or chills no headache or dizziness no chest pain no shortness of breath no cough no nausea or vomiting no abdominal pain no diarrhea and no urinary symptoms, at this time we are awaiting replacement of his PEG tube, Plavix was held in that regard, PICC line was inserted and patient was started on TPN , continue current medications otherwise On 05/03/2024 patient is alert and oriented x 3 currently sitting up in bed. Per nursing staff patient is being switched to IV amiodarone for heart rate control. Patient was also started on TPN through PICC line. Patient to get PEG tube placement tomorrow and hopefully can restart back on p.o. medications for heart rate control. Patient denies chest pain or shortness of breath. Patient denies nausea vomiting or diarrhea. Patient denies any urinary burning or frequency. On 05/04/2024 patient was seen and examined in the ICU, he is currently intubated sedated maintained on mechanical ventilation, earlier this morning patient had cardiac arrest which required resuscitation and intubation and transfer to ICU, currently his vital examination reveals a temperature of 97.8 pulse 85 respiration 20 blood pressure 113/48 pulse ox 96% on mechanical ventilation FiO2 50% white blood count today 5.9 hemoglobin 8.7 platelet count 271 INR 1.2 arterial blood gas pH 7.26 P CO2 58 pO2 63 On 05/05/2025 for patient remains in the intensive care unit on mechanical ventilation.patient remains on IV heparin drip IV Lasix and IV Zosyn.current vital signs temp 97.5, heart rate 70, respiratory rate 14, blood pressure 113/63 with a pulse ox of 99% with an FiO2 of 50%. On 05/06/2024 patient remains in the intensive care unit on mechanical ventilation. Discussed with nursing staff to consult GI services for possible PEG tube placement prior to extubation.current vital signs temp 98.6, heart [id number],blood pressure 104/55 with pulse ox of 96% on an FiO2 of 40%. Patient remains on heparin drip. Patient remains on IV sedation of propofol On 05/07/2024 patient was seen and examined in the ICU he is intubated sedated maintained on mechanical ventilation, he has NG tube for feeding, awaiting replacement of his PEG tube, vital examination reveals a temperature of 98.2 pulse 112 respiration 21 blood pressure 105/50 pulse ox 97% on mechanical ventilation FiO2 35% white blood count is 6.2 hemoglobin 8.4 platelet count 169 BUN 46 creatinine 2.24 on 05/08/2024 patient was extubated yesterday patient currently on 4 L nasal cannula. Discussed case with GI services patient be reevaluated by GI services on Saturday for possible PEG tube placement. Creatinine 2.50 bun 47. Patient remains on IV Lasix. Patient currently on heparin drip. Patient was also started on Levophed for pressure support. Objective - Vital Signs Vital signs: Vital Signs Temp 98.1 F 05/08/24 08:00 Pulse 103 H 05/08/24 09:15 Resp 11 L 05/08/24 09:15 BP 99/64 05/08/24 07:00 Pulse Ox 92 L 05/08/24 09:15 FiO2 4 05/08/24 04:00 Intake & Output 05/07/24 05/08/24 05/08/24 18:59 06:59 18:59 Intake Total 180.344 4773.919 301.183 Output Total 2490 2540 620 Balance -1565.713 -992.081 -318.817 Weight 109.4 kg 109.4 kg Intake: IV 562 463 89 0.9 KVO 140 110 20 Lactated Ringers 1,000 ml 120 @ 20 mls/hr IV .Q24H MARY ANN Rx#:[id number] Lactated Ringers 1,000 ml 160 220 60 @ 20 mls/hr IV .Q24H MARY ANN Rx#:[id number] Piperacillin-Tazobactam 3 100 100 .375 gm In Sodium Chloride 0.9% 100 ml @ 25 mls/hr IVPB Q8HR MARY ANN Rx# :[id number] pressure bag 42 33 9 Intake, IV Titration 138.287 380.919 50.183 Amount Heparin Sod,Pork in 0.45% 45.178 145.676 47.76 NaCl 25,000 unit In 0.45 % NaCl 1 250ml.bag @ 9.35 UNITS/KG/HR 9.995 mls/hr IV .Q24H MARY ANN Rx#: [id number] Norepinephrine 4 mg In 37.791 235.243 2.423 Sodium Chloride 0.9% 250 ml @ 0.05 MCG/KG/MIN 20. 765 mls/hr IV .[id number] MARY ANN Rx#:[id number] propofoL 1,000 mg In 55.318 Empty Bag 1 bag @ 15 MCG/ KG/MIN 9.81 mls/hr IV . [id number] MARY ANN Rx#:[id number] Oral 120 Tube Feeding 74 374 102 Other 30 330 60 Output: Urine 2490 2540 620 Other: Voiding Method Indwelling Catheter Indwelling Catheter ABP, PAP, CO, CI - Last Documented Arterial Blood Pressure 100/54 - Exam In general patient is alert and oriented x 3 in no distress HEENT head normocephalic and atraumatic Neck is supple no JVD no goiter no lymphadenopathy no carotid bruit Chest examination reveals a scattered crackles in both lung [place] no wheezing Cardiac exam reveals irregular heart sounds S1 and S2 no gallops no murmurs Abdomen is soft nontender no organomegaly with normal bowel sounds Extremity exam reveals no edema no cyanosis or clubbing, the right great toe is amputated with a large ulcer at the base of the amputated right great toe with purulent discharge Neurological examination reveals no gross focal deficits - Labs CBC & Chem 7: 05/08/24 02:00 05/08/24 02:00 Labs: Abnormal Lab Results - Last 24 Hours (Table) 05/07/24 05/07/24 05/08/24 Range/Units 15:48 20:45 02:00 RBC 2.70 L (4.30-5.90) m/uL Hgb 8.5 L (13.0-17.5) gm/dL Hct 28.3 L (39.0-53.0) % MCV 104.5 H (80.0-100.0) fL MCHC 30.2 L (31.0-37.0) g/dL RDW 22.7 H (11.5-15.5) % Lymphocytes # 0.8 L (1.0-4.8) k/uL Macrocytosis Marked A APTT 45.0 H (22.0-30.0) sec ABG pO2 69 L (83-108) mmHg ABG HCO3 29 H (21-25) mmol/L ABG Total CO2 30 H (19-24) mmol/L BUN (9-20) mg/dL Creatinine (0.66-1.25) mg/dL Glucose (74-99) mg/dL POC Glucose (mg/dL) (70-110) mg/dL Calcium (8.4-10.2) mg/dL AST (17-59) U/L Total Protein (6.3-8.2) g/dL Albumin (3.5-5.0) g/dL 05/08/24 05/08/24 05/08/24 Range/Units 02:00 05:42 06:00 RBC (4.30-5.90) m/uL Hgb (13.0-17.5) gm/dL Hct (39.0-53.0) % MCV (80.0-100.0) fL MCHC (31.0-37.0) g/dL RDW (11.5-15.5) % Lymphocytes # (1.0-4.8) k/uL Macrocytosis APTT 41.2 H (22.0-30.0) sec ABG pO2 (83-108) mmHg ABG HCO3 (21-25) mmol/L ABG Total CO2 (19-24) mmol/L BUN 47 H (9-20) mg/dL Creatinine 2.50 H (0.66-1.25) mg/dL Glucose 109 H (74-99) mg/dL POC Glucose (mg/dL) 118 H (70-110) mg/dL Calcium 7.8 L (8.4-10.2) mg/dL AST 91 H (17-59) U/L Total Protein 5.4 L (6.3-8.2) g/dL Albumin 2.7 L (3.5-5.0) g/dL Microbiology - Last 24 Hours (Table) 05/06/24 12:11 Gram Stain - Preliminary Sputum Sputum Culture - Preliminary Escherichia coli Assessment and Plan Plan: Worsening shortness of breath, multifactorial, possibly related to acute congestive heart failure, and underlying COPD Atrial fibrillation, with rapid ventricular response on presentation, heart rate was 110 status post cardiac arrest requiring intubation and mechanical ventilation. Patient extubated 05/07/2024 New onset cardiomyopathy. Anemia status post EGD and colonoscopy on 04/24/2024 Generalized weakness Large ulcer at the base of the right great toe with purulent discharge, patient was maintained on oral Augmentin as outpatient, infectious disease consultation requested Underlying history of peripheral arterial disease, with recent history of angioplasty and stent placement to the right lower extremity on 04/08/2024 Underlying history of diabetes mellitus Underlying history of chronic obstructive pulmonary disease Underlying history of chronic kidney disease Underlying history of hyperkalemia Underlying history of chronic continued tobacco abuse Patient pulled out PEG tube. Surgical surfaces consulted. patient transferred to the intensive care unit patient extubated 05/07/2025 for For DVT prophylaxis,heparin drip. GI prophylaxis Pepcid cardiology, infectious disease,critical care, nephrology and surgical service is consulted Will follow closely
--- NOTE | 2024-05-08 11:39 | P.PN ---
Subjective Patient is seen for follow-up for acute kidney injury and chronic kidney disease. Status post cardiac arrest on 05/04/2024 prior to surgery for PEG tube placement. Patient was extubated yesterday. He is currently being diuresed for volume overload. Renal function is stable with serum creatinine - 2.0 mg/dL. It increased to 2.5 today. Lasix dose has been decreased to 40 mg IV every 12 hours. UOP at 200 - 300 mL an hour Objective - Vital Signs Vital signs: Vital Signs Temp 98.1 F 05/08/24 08:00 Pulse 109 H 05/08/24 11:30 Resp 16 05/08/24 11:30 BP 99/64 05/08/24 07:00 Pulse Ox 90 L 05/08/24 11:30 FiO2 4 05/08/24 04:00 Intake & Output 05/07/24 05/08/24 05/08/24 18:59 06:59 18:59 Intake Total 174.099 8239.919 367.183 Output Total 2490 2540 1245 Balance -1565.713 -992.081 -877.817 Weight 109.4 kg 109.4 kg Intake: IV 562 463 155 0.9 KVO 140 110 40 Lactated Ringers 1,000 ml 120 @ 20 mls/hr IV .Q24H MARY ANN Rx#:[id number] Lactated Ringers 1,000 ml 160 220 100 @ 20 mls/hr IV .Q24H [facility] ANN Rx#:[id number] Piperacillin-Tazobactam 3 100 100 .375 gm In Sodium Chloride 0.9% 100 ml @ 25 mls/hr IVPB Q8HR [facility] Rx# :[id number] pressure bag 42 33 15 Intake, IV Titration 138.287 380.919 50.183 Amount Heparin Sod,Pork in 0.45% 45.178 145.676 47.76 NaCl 25,000 unit In 0.45 % NaCl 1 250ml.bag @ 9.35 UNITS/KG/HR 9.995 mls/hr IV .Q24H [facility]ARY ANN Rx#: [id number] Norepinephrine 4 mg In 37.791 235.243 2.423 Sodium Chloride 0.9% 250 ml @ 0.05 MCG/KG/MIN 20. 765 mls/hr IV .[id number] [facility] Rx#:[id number] propofoL 1,000 mg In 55.318 Empty Bag 1 bag @ 15 MCG/ KG/MIN 9.81 mls/hr IV . [id number] [facility] Rx#:[id number] Oral 120 Tube Feeding 74 374 102 Other 30 330 60 Output: Urine 2490 2540 1245 Other: Voiding Method Indwelling Catheter Indwelling Catheter Indwelling Catheter ABP, PAP, CO, CI - Last Documented Arterial Blood Pressure 120/59 - Exam patient is awake, comfortable, following commands Examination of the heart S1 and S2 Examination lungs bilateral breath sounds are heard, decreased breath sounds at the bases Abdomen is soft nontender Examination lower extremities shows no significant edema. - Labs CBC & Chem 7: 05/08/24 02:00 05/08/24 02:00 Labs: Abnormal Lab Results - Last 24 Hours (Table) 05/07/24 05/07/24 05/08/24 Range/Units 15:48 20:45 02:00 RBC 2.70 L (4.30-5.90) m/uL Hgb 8.5 L (13.0-17.5) gm/dL Hct 28.3 L (39.0-53.0) % MCV 104.5 H (80.0-100.0) fL MCHC 30.2 L (31.0-37.0) g/dL RDW 22.7 H (11.5-15.5) % Lymphocytes # 0.8 L (1.0-4.8) k/uL Macrocytosis Marked A APTT 45.0 H (22.0-30.0) sec ABG pO2 69 L (83-108) mmHg ABG HCO3 29 H (21-25) mmol/L ABG Total CO2 30 H (19-24) mmol/L BUN (9-20) mg/dL Creatinine (0.66-1.25) mg/dL Glucose (74-99) mg/dL POC Glucose (mg/dL) (70-110) mg/dL Calcium (8.4-10.2) mg/dL AST (17-59) U/L Total Protein (6.3-8.2) g/dL Albumin (3.5-5.0) g/dL 05/08/24 05/08/24 05/08/24 Range/Units 02:00 05:42 06:00 RBC (4.30-5.90) m/uL Hgb (13.0-17.5) gm/dL Hct (39.0-53.0) % MCV (80.0-100.0) fL MCHC (31.0-37.0) g/dL RDW (11.5-15.5) % Lymphocytes # (1.0-4.8) k/uL Macrocytosis APTT 41.2 H (22.0-30.0) sec ABG pO2 (83-108) mmHg ABG HCO3 (21-25) mmol/L ABG Total CO2 (19-24) mmol/L BUN 47 H (9-20) mg/dL Creatinine 2.50 H (0.66-1.25) mg/dL Glucose 109 H (74-99) mg/dL POC Glucose (mg/dL) 118 H (70-110) mg/dL Calcium 7.8 L (8.4-10.2) mg/dL AST 91 H (17-59) U/L Total Protein 5.4 L (6.3-8.2) g/dL Albumin 2.7 L (3.5-5.0) g/dL Microbiology - Last 24 Hours (Table) 05/06/24 12:11 Gram Stain - Preliminary Sputum Sputum Culture - Preliminary Escherichia coli Assessment and Plan Assessment: 1. Acute kidney injury secondary to ATN secondary to acute blood loss anemia. serum creatinine staying around- 2.0 milligrams per deciliter. No hydronephrosis noted on kidney ultrasound. UA fairly benign. Currently being diuresed. 2. Chronic kidney disease stage IV baseline creatinine 1.8-2.0 secondary to solitary right kidney. History of left nephrectomy. 3. Chronic systolic CHF ejection fraction of 35 to 40% with severe pulmonary hypertension. 4. Diabetes mellitus. 5. Hypernatremia from lack of oral water intake. Improved. 6. Hyperkalemia secondary to acute kidney injury and GI bleed. Resolved. 7. Peripheral vascular disease. 8. Acute blood loss anemia. No active bleeding. Status post blood transfusions and IV DDAVP. Also on Aranesp. GI following. Plan: agree with decreasing Lasix. Repeat labs in a.m.
[2024-05-08 11:43] LABS: Glucose,Whole Blood 122 mg/dL (70-110)
--- NOTE | 2024-05-08 12:45 | P.PN ---
Subjective Progress Note Date: 05/08/24 Principal diagnosis: Acute exacerbation of systolic congestive heart failure and acute cellulitis of right foot, cardiac arrest This is a 63-year-old white male with history of multiple medical problems including coronary artery disease, chronic atrial fibrillation, peripheral vessel occlusive disease, severe pulmonary hypertension, chronic obstructive pulmonary disease, patient normally sees Dr. Dillard on outpatient basis. Patient was never seen by a parachute supervisor. Admitted this time with few days history of increased shortness of breath, and according to the his O2 saturation was down in the 60s. Patient was brought into the ER, chest x-ray showed evidence of pulmonary edema, VQ scan negative for pulmonary embolism, patient was admitted and this consult was initiated. Patient is not a great historian, most of the information was obtained from his , apparently the patient had history of CVA in the past, and he had a previous PEG tube placement Labs on admission showed relatively normal CBC, no leukocytosis, D-dimer was a bit elevated at 2.10 and renal profile was abnormal with BUN of 43 and creatinine 2.01 however BNP level was 12,300 and troponin was 0.043. Since admission, the patient received 1 dose of Lasix, and he is at least 1.5 L negative fluid balance The patient is seen today April 14, 2024 in follow-up on the selective care unit. He is currently sitting up at the bedside. Awake and alert in no acute distress. Breathing a bit easier today compared to yesterday. Currently maintaining good O2 saturations in the upper 90s on 3 L/min per nasal cannula. He is afebrile. Hemodynamically stable. Echocardiogram reveals impaired left ventricular systolic function with an ejection fraction of 35 to 40%. Severe pulmonary hypertension. Moderate to severely dilated left atrium. Right first toe culture is pending. Currently on Unasyn. Glucose 125. Being nourished with Glucerna at 51 MLS per hour via his PEG tube. Anticoagulated with Eliquis. Remains on diuretics. Making adequate urine. The patient is seen today April 15, 2024 in follow-up on the selective care unit. He is awake and alert in no acute distress. Maintaining O2 saturations in the 90s on 3 L/min per nasal cannula. Hemodynamically stable. White count 8.4. Hemoglobin 11.2. Platelets 321. Sodium 143. Potassium 4.9. Bicarb 29. BUN 45. Creatinine 1.99. Glucose 126. He is continued on Unasyn. Anticoagulated with Eliquis. Remains on bronchodilators. Remains on oral diuretics. Continued on Glucerna via his PEG tube. Barium swallow is pending so the patient can continue on tube feedings in the outpatient setting Patient was evaluated today on 04/16/2024, patient is doing well, comfortable, not in any distress, on 3 L nasal cannula with O2 sats of 96%. WBC is 8.5 hemoglobin 10.5 electrolytes are relatively normal with potassium of 5.2 BUN is 48 creatinine 1.94, steadily improving since admission patient had a successful swallow evaluation study that came back unremarkable. Progress note dated May 02, 2024. 63-year-old male who is now been in the hospital for about 3 weeks. Currently, he is on 2 L of oxygen by nasal cannula, getting saline at 75 cc an hour, Cardizem at 5 mg an hour, and TPN at 30 MLS per hour. He is sitting at the side of his bed. No respiratory distress or difficulty. The plan is to replace his PEG tube on Saturday. He apparently accidentally pulled it out. Current labs include sodium 141, potassium 4.9, chlorides 110, CO2 26, anion gap 5, BUN 35, creatinine 1.92. Glucose is 149. Albumin is 2.6. Calcium is 7.6. Chest x-ray from yesterday is consistent with cardiomegaly. Progress note dated May 03, 2024. 63-year-old male seen today in room 353. Currently, the patient is on nasal O2 at 2 L. He is not receiving any IV fluids. The patient continues on IV Unasyn. The patient is supposed to have a reinsertion of the PEG tube, that he accidentally pulled out, tomorrow, May 05. The patient has no specific complaints today. Current labs include a white count 6.4, hemoglobin 8.3, hemat ocrit 28.7, platelet count 274,000. Sodium 139, potassium 4.6, chlorides 108, CO2 28, BUN 37, creatinine 2.04. Glucose is 180. Albumin is 2.6. Patient was given today on 05/04/2024, patient was in the endoscopy suite to undergo PEG tube placement, apparently patient received mild sedation, and he went on to develop cardiopulmonary arrest. Patient had chest compression, received epinephrine, intubated in the meantime, and was sent back to ICU intubated and make ventilated. Patient is on assist-control rate of 16 tidal volume 500 FiO2 50%, PEEP of 8 ABG showed a pO2 of 62 pCO2 58 pH of 7.26. Hence his rate was increased to 20. And FiO2 was changed from 100% initially to 50%. Patient was not hypotensive requiring norepinephrine, however as soon as a left radial arterial line was placed, noted that her blood pressure was actually elevated, norepinephrine was discontinued. Patient is on amiodarone at 0.5 mg/min, he is receiving TPN, patient is on heparin drip, and his propofol dose is 10 mcg/kg/min. WBC count of 5.9 hemoglobin 8.7 INR is 1.2 chest x-ray postintubation showed evidence of congestive heart failure/interstitial edema and small right-sided pleural effusion patient will receive Lasix. He was seen again today on , patient is in the ICU, intubated, mechanicall y ventilated, he is on assist-control rate of 20 tidal volume 500 FiO2 50% and PEEP of 8 ABG showed a pO2 of 123 pCO2 47 pH of 7.35. No changes made in the ventilator settings except cutting down FiO2 to 45%. Patient remains on heparin drip, he is on propofol at 40 mcg/kg/min, receiving TPN at 35 cc/h patient is also on Zosyn. Still on Lasix at 40 mg IV push every 12 hours, chest x-ray continues to show evidence of interstitial edema/infiltrates. Patient required norepinephrine yesterday, and this has been off since 5 AM this morning. WBC count is 6.5 hemoglobin 7.9. Basic metabolic profile is normal BUN is 14 creatinine 1.83 slightly better compared to creatinine of 1.94 yesterday. After reviewing chest x-ray, patient was placed on Lasix 40 mg IV push every 12 hours. After reviewing the notes from general surgery were and the surgeon has no plans in the future to consider EGD again or PEG tube placement, recommended GI evaluation for possible PEG tube placement while the patient is intubated mechanically ventilated, and he seems to be definitely more stable now for PEG tube placement than he was prior to intubation. And will likely clear patient for PEG tube placement by cardiology prior to procedure Patient was today on 05/06/24, remains in the ICU, intubated and mechanically ventilated. Patient is on assist-control rate of 22 tidal volume 500 FiO2 45% PEEP of 8 ABG showed a pO2 of 121 pCO2 52 pH of 7.32 hence FiO2 was cut down to 40%. Chest x-ray is showing evidence of congestive heart failure however patient is improving with Lasix, and he is on Lasix now 40 mg IV push 3 times daily. Excellent urine output, remains on Zosyn. Remains on IV fluid at KVO, and propofol at 40 mcg/kg/min. Patient is sedated, however the patient will have sedation interruption today, and will be given a weaning trial although I have a feeling is not weanable yet. But at least patient will get a sedation interruption or sedation holiday today, and will be able to address hopefully his mental status sepsis. His x-ray is consistent with congestive heart failure, underlying infiltrates is not entirely ruled out. WBC count is 6.4 hemoglobin 8.1 PTT is 46.5 remains on heparin, basic metabolic profile is normal BUN is 43 creatinine 2.04 Patient was evaluated today on 05/07/24, remains in the ICU, remains intubated and mechanically ventilated, he is on assist-control rate of 22 tidal volume 500 FiO2 40% and PEEP of 8 ABG showed a pO2 of 115 pCO2 45 pH of 7.40 chest x-ray is showing slight improvement in his pulmonary edema continues to have some right lower lobe atelectasis and possibly pleural effusion patient is making over 150 cc of urine per hour. He is on propofol at 20 mcg/kg/min requiring a bit of norepinephrine at 0.02 mcg/kg/min and he remains on Zosyn as well as Lasix twice daily. Patient is arousable, opens eyes and closes eyes, but does not follow any other instruction he does close eyes upon instructions. Patient was supposed to have a PEG tube placement today, apparently gastroenterologic requesting cardiac and anesthesia clearance. Hence I have a strong feeling that the patient may have to eventually be transferred to a different institution after extubation for PEG tube placement meantime I plan to continue present supportive care measures and will eventually wean and extubate the patient hopefully in the next couple of days ideally patient is better off having his EGD and PEG tube placement while intubated and mechanically ventilated. She is extubated, it would be more risky to perform EGD and PEG tube placement labs showed WBC count of 6.2 hemoglobin 8.4 platelets are 169 basic metabolic profile is normal BUN is 46 creatinine 2.24 close to his baseline Patient was evaluated today on 05/08/24, main issue, patient was extubated yesterday after a good weaning trial. Tolerated the extubation well over the last 24 hours. Patient had an ultrasound of the chest today, there is a 7.9 cm pocket in the right pleural space, not considered large enough to consider thoracentesis at this point not to mention the patient is diuresing significantly with Lasix at 40 mg IV push every 8 hours, he is negative almost 8 L in the last few days. Hence I will hold on thoracentesis for now, not planning to do 1 at this point in time. Patient is requiring minimal dose of norepinephrine 0.01 mcg/kg/min he is on IV fluid at KVO, and he is still on Zosyn. Sputum cultures have been positive for E. coli and for Jenae's x-ray is showing improvement in his pulmonary edema, and he does have a small right- sided pleural effusion WBC count is 6.7 hemoglobin 8.5 PTT 41.2 basic metabolic profile is normal BUN is 47 creatinine 2.50 patient continues to have nasogastric tube in place for enteral feeding, from my understanding that dif ferent consultants for placement of a PEG tube have declined doing wound at this point considering he had a cardiac arrest. This may have to be considered early next week, and if 1 could not be placed by any of the consultants we have on board, may have to consider transferring the patient to another hospital for PEG tube placement Objective - Vital Signs Vital signs: Vital Signs Temp 98.1 F 05/08/24 08:00 Pulse 87 05/08/24 12:04 Resp 16 05/08/24 11:30 BP 99/64 05/08/24 07:00 Pulse Ox 90 L 05/08/24 11:30 FiO2 4 05/08/24 04:00 Intake & Output 05/07/24 05/08/24 05/08/24 18:59 06:59 18:59 Intake Total 244.528 1407.919 376.250 Output Total 2490 1390 1245 Balance -1565.713 -992.081 -868.750 Weight 109.4 kg 109.4 kg Intake: IV 562 463 155 0.9 KVO 140 110 40 Lactated Ringers 1,000 ml 120 @ 20 mls/hr IV .Q24H [facility] Rx#:[id number] Lactated Ringers 1,000 ml 160 220 100 @ 20 mls/hr IV .Q24H [facility] Rx#:[id number] Piperacillin-Tazobactam 3 100 100 .375 gm In Sodium Chloride 0.9% 100 ml @ 25 mls/hr IVPB Q8HR [facility] Rx# :[id number] pressure bag 42 33 15 Intake, IV Titration 138.287 380.919 59.250 Amount Heparin Sod,Pork in 0.45% 45.178 145.676 47.76 NaCl 25,000 unit In 0.45 % NaCl 1 250ml.bag @ 9.35 UNITS/KG/HR 9.995 mls/hr IV .Q24H [facility] Rx#: [id number] Norepinephrine 4 mg In 37.791 235.243 11.490 Sodium Chloride 0.9% 250 ml @ 0.05 MCG/KG/MIN 20. 765 mls/hr IV .[id number] [facility] Rx#:[id number] propofoL 1,000 mg In 55.318 Empty Bag 1 bag @ 15 MCG/ KG/MIN 9.81 mls/hr IV . [id number] [facility] Rx#:[id number] Oral 120 Tube Feeding 74 374 102 Other 30 330 60 Output: Urine 2490 2540 1245 Other: Voiding Method Indwelling Catheter Indwelling Catheter Indwelling Catheter ABP, PAP, CO, CI - Last Documented Arterial Blood Pressure 120/59 - Exam GENERAL EXAM: Reveals 63-year-old white male off mechanical ventilation, awake, follows all simple instructions . seems to be a bit slow HEAD: Normocephalic. EYES: Normal reaction of pupils, equal size. NOSE: Clear with pink turbinates. Nasogastric tube in place THROAT: No erythema or exudates. NECK: No masses, no JVD. CHEST: No chest wall deformity. LUNGS: Diminished breath sounds at the bases no crackles rhonchi or wheezes CVS: Regular rate and rhythm S1 and S2 normal with no audible murmur ABDOMEN: Soft nontender no megaly no rebound SKIN: No cyanosis CENTRAL NERVOUS SYSTEM: Awake, alert and oriented x 3, seems to be a bit slow EXTREMITIES: Right foot wrapped with sterile dressing - Labs CBC & Chem 7: 05/08/24 02:00 05/08/24 02:00 Labs: Abnormal Lab Results - Last 24 Hours (Table) 05/07/24 05/07/24 05/08/24 Range/Units 15:48 20:45 02:00 RBC 2.70 L (4.30-5.90) m/uL Hgb 8.5 L (13.0-17.5) gm/dL Hct 28.3 L (39.0-53.0) % MCV 104.5 H (80.0-100.0) fL MCHC 30.2 L (31.0-37.0) g/dL RDW 22.7 H (11.5-15.5) % Lymphocytes # 0.8 L (1.0-4.8) k/uL Macrocytosis Marked A APTT 45.0 H (22.0-30.0) sec ABG pO2 69 L (83-108) mmHg ABG HCO3 29 H (21-25) mmol/L ABG Total CO2 30 H (19-24) mmol/L BUN (9-20) mg/dL Creatinine (0.66-1.25) mg/dL Glucose (74-99) mg/dL POC Glucose (mg/dL) (70-110) mg/dL Calcium (8.4-10.2) mg/dL AST (17-59) U/L Total Protein (6.3-8.2) g/dL Albumin (3.5-5.0) g/dL 05/08/24 05/08/24 05/08/24 Range/Units 02:00 05:42 06:00 RBC (4.30-5.90) m/uL Hgb (13.0-17.5) gm/dL Hct (39.0-53.0) % MCV (80.0-100.0) fL MCHC (31.0-37.0) g/dL RDW (11.5-15.5) % Lymphocytes # (1.0-4.8) k/uL Macrocytosis APTT 41.2 H (22.0-30.0) sec ABG pO2 (83-108) mmHg ABG HCO3 (21-25) mmol/L ABG Total CO2 (19-24) mmol/L BUN 47 H (9-20) mg/dL Creatinine 2.50 H (0.66-1.25) mg/dL Glucose 109 H (74-99) mg/dL POC Glucose (mg/dL) 118 H (70-110) mg/dL Calcium 7.8 L (8.4-10.2) mg/dL AST 91 H (17-59) U/L Total Protein 5.4 L (6.3-8.2) g/dL Albumin 2.7 L (3.5-5.0) g/dL 05/08/24 Range/Units 11:41 RBC (4.30-5.90) m/uL Hgb (13.0-17.5) gm/dL Hct (39.0-53.0) % MCV (80.0-100.0) fL MCHC (31.0-37.0) g/dL RDW (11.5-15.5) % Lymphocytes # (1.0-4.8) k/uL Macrocytosis APTT (22.0-30.0) sec ABG pO2 (83-108) mmHg ABG HCO3 (21-25) mmol/L ABG Total CO2 (19-24) mmol/L BUN (9-20) mg/dL Creatinine (0.66-1.25) mg/dL Glucose (74-99) mg/dL POC Glucose (mg/dL) 122 H (70-110) mg/dL Calcium (8.4-10.2) mg/dL AST (17-59) U/L Total Protein (6.3-8.2) g/dL Albumin (3.5-5.0) g/dL Microbiology - Last 24 Hours (Table) 05/06/24 12:11 Gram Stain - Preliminary Sputum Sputum Culture - Preliminary Escherichia coli Assessment and Plan Assessment: Impression: Cardiac arrest requiring intubation mechanical ventilation patient had cardiac arrest before even having EGD/PEG tube placement according to the notes from surgery. 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 Acute on chronic stage IV kidney disease Acute blood loss anemia requiring 5 units of blood transfusion Electrolytes imbalance secondary to acute on chronic kidney disease Peripheral vessel occlusive disease and previous stenting of right SFA and right popliteal artery Severe pulmonary hypertension Paroxysmal atrial fibrillation, on anticoagulation therapy History of CVA with residual dysphagia requiring PEG tube placement Type 2 diabetes Cellulitis of right foot/diabetic foot ulcer Recommendation: Continue to monitor in the ICU Continue antibiotics Continue nutritional support/TPN, patient is receiving nutritional support via nasogastric tube, eventually the patient will require a PEG tube, he has history of chronic aspiration and difficulty swallowing Continue anticoagulation therapy for his A-fib, remains on heparin continue on heparin until a final decision is made regarding PEG tube placement Continue GI prophylaxis Cut down Lasix to 40 mg IV push every 12 hours Continue to monitor renal status closely Continue to monitor in ICU Taper and discontinue norepinephrine Critical care time over 30 minutes Remains critically ill, will continue to follow Time with Patient: Greater than 30
[2024-05-08] MEDS: APIXABAN 2.5 MG TABLET PO SCH (13:06)
--- NOTE | 2024-05-08 15:38 | P.PN ---
Subjective Progress Note Date: 05/08/24 Principal diagnosis: Anemia Patient is seen and examined today as a follow-up. He remains in the ICU. Patient was extubated yesterday. He remains confused. He has top off with enteral tube feeds. Blood pressures are still soft, But not requiring any pressors. Yesterday patient was additively scheduled for PEG tube replacement however that was canceled by anesthesia. Objective - Vital Signs Vital signs: Vital Signs Temp 97 F L 05/08/24 04:00 Pulse 110 H 05/08/24 07:00 Resp 21 05/08/24 07:00 BP 99/64 05/08/24 07:00 Pulse Ox 97 05/08/24 07:00 FiO2 4 05/08/24 04:00 Intake & Output 05/07/24 05/08/24 05/08/24 18:59 06:59 18:59 Intake Total 008.154 1502.919 147.183 Output Total 2490 2540 300 Balance -1565.713 -992.081 -152.817 Weight 109.4 kg Intake: IV 562 463 33 0.9 KVO 140 110 10 Lactated Ringers 1,000 ml 120 @ 20 mls/hr IV .Q24H [facility] Rx#:[id number] Lactated Ringers 1,000 ml 160 220 20 @ 20 mls/hr IV .Q24H [facility] Rx#:[id number] Piperacillin-Tazobactam 3 100 100 .375 gm In Sodium Chloride 0.9% 100 ml @ 25 mls/hr IVPB Q8HR [facility] Rx# :[id number] pressure bag 42 33 3 Intake, IV Titration 138.287 380.919 50.183 Amount Heparin Sod,Pork in 0.45% 45.178 145.676 47.76 NaCl 25,000 unit In 0.45 % NaCl 1 250ml.bag @ 9.35 UNITS/KG/HR 9.995 mls/hr IV .Q24H [facility] Rx#: [id number] Norepinephrine 4 mg In 37.791 235.243 2.423 Sodium Chloride 0.9% 250 ml @ 0.05 MCG/KG/MIN 20. 765 mls/hr IV .[id number] [facility] Rx#:[id number] propofoL 1,000 mg In 55.318 Empty Bag 1 bag @ 15 MCG/ KG/MIN 9.81 mls/hr IV . [id number] [facility] Rx#:[id number] Oral 120 Tube Feeding 74 374 34 Other 30 330 30 Output: Urine 2490 2540 300 Other: Voiding Method Indwelling Catheter Indwelling Catheter ABP, PAP, CO, CI - Last Documented Arterial Blood Pressure 101/52 - Exam General appearance: The patient is alert, confused, appears in no acute distress. HET: Head is normocephalic and atraumatic. Conjunctiva pink. Sclera anicteric. Dobbhoff tube in place with tube feeding. Neck: Supple without lymphadenopathy. Abdomen: Soft, nontender, nondistended. Extremities: Normal skin color and turgor. No pedal edema Skin: No rashes, no jaundice Neurological: No focal deficits. Alert to self but otherwise confused - Labs CBC & Chem 7: 05/08/24 02:00 05/08/24 02:00 Labs: Abnormal Lab Results - Last 24 Hours (Table) 05/07/24 05/07/24 05/08/24 Range/Units 15:48 20:45 02:00 RBC 2.70 L (4.30-5.90) m/uL Hgb 8.5 L (13.0-17.5) gm/dL Hct 28.3 L (39.0-53.0) % MCV 104.5 H (80.0-100.0) fL MCHC 30.2 L (31.0-37.0) g/dL RDW 22.7 H (11.5-15.5) % Lymphocytes # 0.8 L (1.0-4.8) k/uL Macrocytosis Marked A APTT 45.0 H (22.0-30.0) sec ABG pO2 69 L (83-108) mmHg ABG HCO3 29 H (21-25) mmol/L ABG Total CO2 30 H (19-24) mmol/L BUN (9-20) mg/dL Creatinine (0.66-1.25) mg/dL Glucose (74-99) mg/dL POC Glucose (mg/dL) (70-110) mg/dL Calcium (8.4-10.2) mg/dL AST (17-59) U/L Total Protein (6.3-8.2) g/dL Albumin (3.5-5.0) g/dL 05/08/24 05/08/24 05/08/24 Range/Units 02:00 05:42 06:00 RBC (4.30-5.90) m/uL Hgb (13.0-17.5) gm/dL Hct (39.0-53.0) % MCV (80.0-100.0) fL MCHC (31.0-37.0) g/dL RDW (11.5-15.5) % Lymphocytes # (1.0-4.8) k/uL Macrocytosis APTT 41.2 H (22.0-30.0) sec ABG pO2 (83-108) mmHg ABG HCO3 (21-25) mmol/L ABG Total CO2 (19-24) mmol/L BUN 47 H (9-20) mg/dL Creatinine 2.50 H (0.66-1.25) mg/dL Glucose 109 H (74-99) mg/dL POC Glucose (mg/dL) 118 H (70-110) mg/dL Calcium 7.8 L (8.4-10.2) mg/dL AST 91 H (17-59) U/L Total Protein 5.4 L (6.3-8.2) g/dL Albumin 2.7 L (3.5-5.0) g/dL Microbiology - Last 24 Hours (Table) 05/06/24 12:11 Gram Stain - Preliminary Sputum Sputum Culture - Preliminary Gram Neg Bacilli Assessment and Plan (1) Presence of externally removable percutaneous endoscopic gastrostomy (PEG) tube Narrative/Plan: 63-year-old male with multiple comorbidities with history of CVA with dysphagia requiring PEG tube where he gets all of his nutrition which was placed many years ago last 1 placed in 2021. During this hospitalization patient has had some confusion and he pulled out his PEG tube. General surgery recently tried to replace PEG tube however patient had gone into cardiopulmonary arrest with anesthesia prior to procedure. Procedure was canceled, patient has stabilized and remains intubated with cardiology clearance to proceed with PEG tube placement. Plan for placement tomorrow. Keep patient intubated until procedure is completed. EGD and PEG tube canceled due to anesthesia's recommendation as patient is felt not to be stable for procedure. Will reevaluate next week. Current Visit: Yes Status: Acute Code(s): Z93.1 - GASTROSTOMY STATUS SNOMED Code(s): 616091759 (2) Anemia Current Visit: Yes Status: Acute Priority: High Code(s): D64.9 - ANEMIA, UNSPECIFIED SNOMED Code(s): 482606333 (3) Diabetes Current Visit: Yes Status: Acute Code(s): E11.9 - TYPE 2 DIABETES MELLITUS W ITHOUT COMPLICATIONS SNOMED Code(s): 56385308 (4) Coronary artery disease Current Visit: Yes Status: Acute Code(s): I25.10 - ATHSCL HEART DISEASE OF [place] CORONARY ARTERY W/O ANG PCTRS SNOMED Code(s): 56097615 (5) Atrial fibrillation Current Visit: Yes Status: Acute Priority: High Code(s): I48.91 - UNSPECIFIED ATRIAL FIBRILLATION SNOMED Code(s): 44536890 (6) Chronic kidney disease Current Visit: Yes Status: Acute Code(s): N18.9 - CHRONIC KIDNEY DISEASE, UNSPECIFIED SNOMED Code(s): 339853056 (7) Generalized weakness Current Visit: Yes Status: Acute Code(s): R53.1 - WEAKNESS SNOMED Code(s): 37170238 (8) Peripheral vascular disease Current Visit: No Status: Acute Code(s): I73.9 - PERIPHERAL VASCULAR DISEASE, UNSPECIFIED SNOMED Code(s): 339851796 (9) Dysphagia due to old cerebrovascular accident Current Visit: Yes Status: Acute Code(s): I69.391 - DYSPHAGIA FOLLOWING CEREBRAL INFARCTION SNOMED Code(s): 142679965 (10) Hypotension Current Visit: Yes Status: Acute Code(s): I95.9 - HYPOTENSION, UNSPECIFIED SNOMED Code(s): 96416928 (11) Cardiac arrest Current Visit: Yes Status: Acute Code(s): I46.9 - CARDIAC ARREST, CAUSE UNSPECIFIED SNOMED Code(s): 428835154 Plan: 1. Continue symptomatic and supportive care 2. Continue with ICU management/recommendations 3. Medical management per primary medical team and field recorder 4. You may resume heparin drip 5. May resume tube feedings 6. No plans on EGD or PEG tube placement today. Can reassess Saturday when GI services return otherwise consult to general surgery Thank you for allowing us to participate in the care of the patient, gastroenterology will not be available at the hospital this weekend. We will resume coverage 05/11/2024 Dr. Nandini Villa I agree with the dictator's note, documented as a scribe by Fariba Carlson.
--- NOTE | 2024-05-08 16:44 | P.PN ---
Subjective Progress Note Date: 05/08/24 Principal diagnosis: Reason for follow-up is right foot wound and cellulitis Patient is a 63-year-old male with a past medical history significant for diabetes mellitus hypertension hyperlipidemia pneumonia CVA TIA COPD patient did have a right big toe amputation done by and was recently admitted to the hospital concerning for pain to the right foot and cold feeling patient has been diagnosed with PAD and is s/p peripheral intervention by interventional cardiology with angioplasty of SFA and right popliteal arteries however unsuccessful angioplasty of the right anterior tibial artery patient presented to hospital with weakness hypoxemia. Patient apparently has pulled out his PEG tube and also developed A-fib with RVR for the patient was transferred to telemetry floor on 04/30/2024atient apparently did have a bradycardia arrhythmia/arrest at the time of PEG tube placement which was put on hold patient was intubated and has been transferred to the ICU on 05/04/2024. On today's evaluation that is 05/08/2024,the patient has been extubated and is c urrently breathing comfortably on 4 L of cannula oxygen patient denies any fever or chills no chest pain no vomiting or diarrhea has been reported. Patient white count 6.7 creatinine is 2.50 sputum and blood growing E. coli Objective - Vital Signs Vital signs: Vital Signs Temp 98.4 F 05/08/24 12:00 Pulse 93 05/08/24 15:52 Resp 15 05/08/24 15:00 BP 99/64 05/08/24 07:00 Pulse Ox 99 05/08/24 15:40 FiO2 4 05/08/24 04:00 Intake & Output 05/07/24 05/08/24 05/08/24 18:59 06:59 18:59 Intake Total 079.994 5390.919 766.250 Output Total 2490 8820 1845 Balance -1565.713 -992.081 -1078.750 Weight 109.4 kg 109.4 kg Intake: IV 562 463 287 0.9 KVO 140 110 80 Lactated Ringers 1,000 ml 120 @ 20 mls/hr IV .Q24H [facility] Rx#:[id number] Lactated Ringers 1,000 ml 160 220 180 @ 20 mls/hr IV .Q24H [facility] Rx#:[id number] Piperacillin-Tazobactam 3 100 100 .375 gm In Sodium Chloride 0.9% 100 ml @ 25 mls/hr IVPB Q8HR [facility] Rx# :[id number] pressure bag 42 33 27 Intake, IV Titration 138.287 380.919 59.250 Amount Heparin Sod,Pork in 0.45% 45.178 145.676 47.76 NaCl 25,000 unit In 0.45 % NaCl 1 250ml.bag @ 9.35 UNITS/KG/HR 9.995 mls/hr IV .Q24H [facility] Rx#: [id number] Norepinephrine 4 mg In 37.791 235.243 11.490 Sodium Chloride 0.9% 250 ml @ 0.05 MCG/KG/MIN 20. 765 mls/hr IV .[id number] [facility] Rx#:[id number] propofoL 1,000 mg In 55.318 Empty Bag 1 bag @ 15 MCG/ KG/MIN 9.81 mls/hr IV . [id number] [facility] Rx#:[id number] Oral 120 Tube Feeding 74 374 330 Other 30 330 90 Output: Urine 2490 2540 1845 Other: Voiding Method Indwelling Catheter Indwelling Catheter Indwelling Catheter ABP, PAP, CO, CI - Last Documented Arterial Blood Pressure 133/62 - Exam GENERAL DESCRIPTION: Middle-age male lying in bed in no distress RESPIRATORY SYSTEM: Unlabored breathing , decreased breath sounds at bases HEART: S1 S2 regular rate and rhythm , ABDOMEN: Soft , no tenderness EXTREMITIES: Right foot wound wound is currently dressed - Labs CBC & Chem 7: 05/08/24 02:00 05/08/24 02:00 Labs: Abnormal Lab Results - Last 24 Hours (Table) 05/07/24 05/08/24 05/08/24 Range/Units 20:45 02:00 02:00 RBC 2.70 L (4.30-5.90) m/uL Hgb 8.5 L (13.0-17.5) gm/dL Hct 28.3 L (39.0-53.0) % MCV 104.5 H (80.0-100.0) fL MCHC 30.2 L (31.0-37.0) g/dL RDW 22.7 H (11.5-15.5) % Lymphocytes # 0.8 L (1.0-4.8) k/uL Macrocytosis Marked A APTT 45.0 H (22.0-30.0) sec BUN 47 H (9-20) mg/dL Creatinine 2.50 H (0.66-1.25) mg/dL Glucose 109 H (74-99) mg/dL POC Glucose (mg/dL) (70-110) mg/dL Calcium 7.8 L (8.4-10.2) mg/dL AST 91 H (17-59) U/L Total Protein 5.4 L (6.3-8.2) g/dL Albumin 2.7 L (3.5-5.0) g/dL 05/08/24 05/08/24 05/08/24 Range/Units 05:42 06:00 11:41 RBC (4.30-5.90) m/uL Hgb (13.0-17.5) gm/dL Hct (39.0-53.0) % MCV (80.0-100.0) fL MCHC (31.0-37.0) g/dL RDW (11.5-15.5) % Lymphocytes # (1.0-4.8) k/uL Macrocytosis APTT 41.2 H (22.0-30.0) sec BUN (9-20) mg/dL Creatinine (0.66-1.25) mg/dL Glucose (74-99) mg/dL POC Glucose (mg/dL) 118 H 122 H (70-110) mg/dL Calcium (8.4-10.2) mg/dL AST (17-59) U/L Total Protein (6.3-8.2) g/dL Albumin (3.5-5.0) g/dL Microbiology - Last 24 Hours (Table) 05/06/24 12:11 Gram Stain - Preliminary Sputum Sputum Culture - Preliminary Escherichia coli Assessment and Plan (1) Cellulitis of right foot Current Visit: No Status: Acute Code(s): L03.115 - CELLULITIS OF RIGHT LOWER LIMB SNOMED Code(s): 55566997827931372 (2) Diabetic foot ulcer Current Visit: No Status: Acute Code(s): E11.621 - TYPE 2 DIABETES MELLITUS WITH FOOT ULCER; L97.509 - NON-PRESSURE CHRONIC ULCER OTH PRT UNSP FOOT W UNSP SEVERITY SNOMED Code(s): 696952557 Plan: 1patient presenting to the hospital mostly with generalized weakness low O2 sats possibly underlying cardiac etiology for the patient being managed by ca rdiology, patient also have a 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 2patient did have significant change in his clinical condition as he did have a cardiopulmonary arrest requiring intubation has been admitted to the ICU, sputum has been requested and there was concern for possible aspiration which is currently growing E. coli with sensitivities pending [facility] waiting for the culture to finalize 3local wound care to the right foot wound with the Medihoney followed by moist dressing change daily Dictation was produced using [employer] dictation software. please excuse any grammatical, word or spelling errors. Time with Patient: Less than 30
[2024-05-08] MEDS: METOPROLOL TARTRATE 25 MG TAB PO ONE (20:22)
[2024-05-08] MEDS ORDERED: FUROSEMIDE 10 MG/ML 4 ML VIAL IV SCH (21:00)
--- NOTE | 2024-05-08 21:20 | P.PN ---
Subjective Progress Note Date: 05/08/24 This is a 63-year-old gentleman with extensive past medical history consistent of peripheral arterial disease as well as atrial fibrillation likely to be permanent as well as multiple comorbid conditions including recent diagnosis of cardiomyopathy and hypertension and dyslipidemia and diabetes and anemia was admitted to the hospital with shortness of breath. The patient recently had a stroke and apparently he cannot swallow. He has not been taking his oral medication and for that reason he went into A-fib with RVR and he was started on Cardizem IV. Eliquis was on hold because of anemia and also possible having PEG tube this coming Thursday May 02, 2024 The patient was seen and evaluated this morning with he is breathing has improved. His hypoxemia has improved as well. No symptoms of chest pain or chest discomfort. He continues to be in atrial fibrillation with controlled heart rate on the current dose of Cardizem IV. He is not on anticoagulation for the above reason. His mentation has improved significantly as well. He seems to be overall euvolemic on examination as well. Examination is remarkable for irregular rhythm with controlled heart rate and clear breathing sounds bila terally and mild bilateral lower extremities edema May 03, 2024 The patient was seen and evaluated this morning. His mentation has somewhat improved compared to before. His pressure has been marginally low and his creatinine is slightly increased compared to yesterday. Currently he is on Cardizem IV which I am going to stop and start the patient on amiodarone IV. Beside that he is not on any blood pressure medications. Anticoagulation is on hold at this point in the process of having a break tube placed tomorrow. No symptoms of chest pain or chest discomfort. Examination is remarkable for irregular rhythm with overall controlled heart rate and scattered bilateral rhonchi. May 04, 2024 Patient seen and examined at bedside. Patient was scheduled for a PEG tube placement yesterday. Before initiating the procedure patient had a asystole cardiac arrest requiring brief CPR and epinephrine. Patient had atrial fibrillation with uncontrolled rate after achieving ROSC. He is maintained on vent support May 05, 2024 Patient is seen and examined at bedside this a.m. He is maintained on vent support. No further concerns of blocks noticed on telemetry. He is maintained in rate control atrial fibrillation. May 06, 2024 Patient is seen and examined at bedside this a.m. He is maintained on ventilator support. He has been planned to undergo PEG tube placement tomorrow. May 07, 2024 Patient seen and examined at bedside this a.m. He continues to be on ventilator support. Today his systolic blood pressure is running a bit low therefore he is requiring low-dose of norepinephrine to supplement his blood pressure. May 08, 2024 Seen and examined with his exam. Will successfully extubated today. Continues to be in atrial fibrillation rate controlled. Blood pressure is better controlled. Examination S1-S2 is audible, mild systolic murmur audible, irregular pulse Poor inspiratory effort, rhonchi and crackles audible in bilateral lung layton 1+ edema bilateral lower extremity Detailed neuroexam was not performed Assessment Asystole cardiac arrest, likely due to excessive amiodarone use. Change in mental status which has improved Hypoxemia which has improved Shortness of breath which has improved Atrial fibrillation with controlled heart rate on the current dose of Cardizem IV History of permanent atrial fibrillation Marginally low blood pressure Acute on chronic renal failure Multiple comorbid conditions including anemia Plan Continue amiodarone 200 mg daily Continue aspirin 81 mg, atorvastatin 40 mg daily. Continue metoprolol 25 mg twice daily. Will reduce diuretics Once okay to swallow, consider stopping IV heparin drip and starting Eliquis Avoid using midodrine. Objective - Vital Signs Vital signs: Vital Signs Temp 97.9 F 05/08/24 19:30 Pulse 98 05/08/24 21:00 Resp 13 05/08/24 21:00 BP 99/64 05/08/24 21:00 Pulse Ox 97 05/08/24 21:00 FiO2 4 05/08/24 04:00 Intake & Output 05/08/24 05/08/24 05/09/24 06:59 18:59 06:59 Intake Total 6712.793 9278.250 255 Output Total 2540 2370 350 Balance -992.081 -1348.750 -95 Weight 109.4 kg Intake: IV 463 386 99 0.9 KVO 110 110 30 Lactated Ringers 1,000 ml 220 240 60 @ 20 mls/hr IV .Q24H [facility] Rx#:[id number] Piperacillin-Tazobactam 3 100 .375 gm In Sodium Chloride 0.9% 100 ml @ 25 mls/hr IVPB Q8HR [facility] Rx# :[id number] pressure bag 33 36 9 Intake, IV Titration 380.919 59.250 Amount Heparin Sod,Pork in 0.45% 145.676 47.76 NaCl 25,000 unit In 0.45 % NaCl 1 250ml.bag @ 9.35 UNITS/KG/HR 9.995 mls/hr IV .Q24H [facility] Rx#: [id number] Norepinephrine 4 mg In 235.243 11.490 Sodium Chloride 0.9% 250 ml @ 0.05 MCG/KG/MIN 20. 765 mls/hr IV .[id number] [facility] Rx#:[id number] Tube Feeding 374 456 126 Other 330 120 30 Output: Urine 2540 2370 350 Other: Voiding Method Indwelling Catheter Indwelling Catheter ABP, PAP, CO, CI - Last Documented Arterial Blood Pressure 132/57 - Labs CBC & Chem 7: 05/08/24 02:00 05/08/24 02:00 Labs: Abnormal Lab Results - Last 24 Hours (Table) 05/08/24 05/08/24 05/08/24 Range/Units 02:00 02:00 05:42 RBC 2.70 L (4.30-5.90) m/uL Hgb 8.5 L (13.0-17.5) gm/dL Hct 28.3 L (39.0-53.0) % MCV 104.5 H (80.0-100.0) fL MCHC 30.2 L (31.0-37.0) g/dL RDW 22.7 H (11.5-15.5) % Lymphocytes # 0.8 L (1.0-4.8) k/uL Macrocytosis Marked A APTT (22.0-30.0) sec BUN 47 H (9-20) mg/dL Creatinine 2.50 H (0.66-1.25) mg/dL Glucose 109 H (74-99) mg/dL POC Glucose (mg/dL) 118 H (70-110) mg/dL Calcium 7.8 L (8.4-10.2) mg/dL AST 91 H (17-59) U/L Total Protein 5.4 L (6.3-8.2) g/dL Albumin 2.7 L (3.5-5.0) g/dL 05/08/24 05/08/24 Range/Units 06:00 11:41 RBC (4.30-5.90) m/uL Hgb (13.0-17.5) gm/dL Hct (39.0-53.0) % MCV (80.0-100.0) fL MCHC (31.0-37.0) g/dL RDW (11.5-15.5) % Lymphocytes # (1.0-4.8) k/uL Macrocytosis APTT 41.2 H (22.0-30.0) sec BUN (9-20) mg/dL Creatinine (0.66-1.25) mg/dL Glucose (74-99) mg/dL POC Glucose (mg/dL) 122 H (70-110) mg/dL Calcium (8.4-10.2) mg/dL AST (17-59) U/L Total Protein (6.3-8.2) g/dL Albumin (3.5-5.0) g/dL Microbiology - Last 24 Hours (Table) 05/06/24 12:11 Gram Stain - Preliminary Sputum Sputum Culture - Preliminary Escherichia coli
[2024-05-08 23:37] LABS: Glucose,Whole Blood 92 mg/dL (70-110)
[2024-05-09 05:15] LABS: African American GFR (CKD) 31 (>60 ml/min/1.73 sqM); Anion Gap 5 mmol/L; Blood Urea Nitrogen 48 mg/dL (9-20); Calcium 8.1 mg/dL (8.4-10.2); Carbon Dioxide 31 mmol/L (22-30); Chloride 104 mmol/L (98-107); Glucose 115 mg/dL (74-99); Non-African American GFR(CKD) 27 (>60 ml/min/1.73 sqM); Potassium 3.8 mmol/L (3.5-5.1); Sodium 140 mmol/L (137-145)
[2024-05-09 05:20] LABS: Anisocytosis Moderate; Basophils % (A) 0 %; Eosinophils # (A) 0.5 k/uL (0-0.7); Eosinophils % (A) 8 %; HCT 27.6 % (39.0-53.0); Hypochromasia Marked; Lymphocytes # (A) 0.6 k/uL (1.0-4.8); Lymphocytes % (A) 10 %; MCH 30.4 pg (25.0-35.0); MCHC 29.1 g/dL (31.0-37.0); MCV 104.5 fL (80.0-100.0); Macrocytosis Marked; Mean Platelet Volume 10.2; Monocytes # (A) 0.7 k/uL (0-1.0); Monocytes % (A) 10 %; Neutrophils # (A) 4.6 k/uL (1.3-7.7); Neutrophils % (A) 69 %; Platelet Count 163 k/uL (150-450); Poikilocytosis Moderate; RBC 2.64 m/uL (4.30-5.90); RDW 22.4 % (11.5-15.5); WBC 6.6 k/uL (3.8-10.6)
[2024-05-09] MEDS ORDERED: Potassium Replacement Protocol 1 EACH MISC MISCELLANE PRN (05:48)
[2024-05-09] MEDS: POTASSIUM BICARBONATE/CIT AC 20 MEQ TABLET.EFF NG-TUBE SCH (06:00)
[2024-05-09] MEDS: FUROSEMIDE 10 MG/ML 4 ML VIAL IV SCH (08:19)
--- NOTE | 2024-05-09 10:52 | P.PN ---
Subjective Progress Note Date: 05/09/24 Principal diagnosis: Acute exacerbation of systolic congestive heart failure and acute cellulitis of right foot, cardiac arrest This is a 63-year-old white male with history of multiple medical problems including coronary artery disease, chronic atrial fibrillation, peripheral vessel occlusive disease, severe pulmonary hypertension, chronic obstructive pulmonary disease, patient normally sees Dr. Dillard on outpatient basis. Patient was never seen by a retail loan originator assistant. Admitted this time with few days history of increased shortness of breath, and according to the his O2 saturation was down in the 60s. Patient was brought into the ER, chest x-ray showed evidence of pulmonary edema, VQ scan negative for pulmonary embolism, patient was admitted and this consult was initiated. Patient is not a great historian, most of the information was obtained from his , apparently the patient had history of CVA in the past, and he had a previous PEG tube placement Labs on admission showed relatively normal CBC, no leukocytosis, D-dimer was a bit elevated at 2.10 and renal profile was abnormal with BUN of 43 and creatinine 2.01 however BNP level was 12,300 and troponin was 0.043. Since admission, the patient received 1 dose of Lasix, and he is at least 1.5 L negative fluid balance The patient is seen today April 14, 2024 in follow-up on the selective care unit. He is currently sitting up at the bedside. Awake and alert in no acute distress. Breathing a bit easier today compared to yesterday. Currently maintaining good O2 saturations in the upper 90s on 3 L/min per nasal cannula. He is afebrile. Hemodynamically stable. Echocardiogram reveals impaired left ventricular systolic function with an ejection fraction of 35 to 40%. Severe pulmonary hypertension. Moderate to severely dilated left atrium. Right first toe culture is pending. Currently on Unasyn. Glucose 125. Being nourished with Glucerna at 51 MLS per hour via his PEG tube. Anticoagulated with Eliquis. Remains on diuretics. Making adequate urine. The patient is seen today April 15, 2024 in follow-up on the selective care unit. He is awake and alert in no acute distress. Maintaining O2 saturations in the 90s on 3 L/min per nasal cannula. Hemodynamically stable. White count 8.4. Hemoglobin 11.2. Platelets 321. Sodium 143. Potassium 4.9. Bicarb 29. BUN 45. Creatinine 1.99. Glucose 126. He is continued on Unasyn. Anticoagulated with Eliquis. Remains on bronchodilators. Remains on oral diuretics. Continued on Glucerna via his PEG tube. Barium swallow is pending so the patient can continue on tube feedings in the outpatient setting Patient was evaluated today on 04/16/2024, patient is doing well, comfortable, not in any distress, on 3 L nasal cannula with O2 sats of 96%. WBC is 8.5 hemoglobin 10.5 electrolytes are relatively normal with potassium of 5.2 BUN is 48 creatinine 1.94, steadily improving since admission patient had a successful swallow evaluation study that came back unremarkable. Progress note dated May 02, 2024. 63-year-old male who is now been in the hospital for about 3 weeks. Currently, he is on 2 L of oxygen by nasal cannula, getting saline at 75 cc an hour, Cardizem at 5 mg an hour, and TPN at 30 MLS per hour. He is sitting at the side of his bed. No respiratory distress or difficulty. The plan is to replace his PEG tube on Saturday. He apparently accidentally pulled it out. Current labs include sodium 141, potassium 4.9, chlorides 110, CO2 26, anion gap 5, BUN 35, creatinine 1.92. Glucose is 149. Albumin is 2.6. Calcium is 7.6. Chest x-ray from yesterday is consistent with cardiomegaly. Progress note dated May 03, 2024. 63-year-old male seen today in room 353. Currently, the patient is on nasal O2 at 2 L. He is not receiving any IV fluids. The patient continues on IV Unasyn. The patient is supposed to have a reinsertion of the PEG tube, that he accidentally pulled out, tomorrow, May 05. The patient has no specific complaints today. Current labs include a white count 6.4, hemoglobin 8.3, hemat ocrit 28.7, platelet count 274,000. Sodium 139, potassium 4.6, chlorides 108, CO2 28, BUN 37, creatinine 2.04. Glucose is 180. Albumin is 2.6. Patient was given today on 05/04/2024, patient was in the endoscopy suite to undergo PEG tube placement, apparently patient received mild sedation, and he went on to develop cardiopulmonary arrest. Patient had chest compression, received epinephrine, intubated in the meantime, and was sent back to ICU intubated and make ventilated. Patient is on assist-control rate of 16 tidal volume 500 FiO2 50%, PEEP of 8 ABG showed a pO2 of 62 pCO2 58 pH of 7.26. Hence his rate was increased to 20. And FiO2 was changed from 100% initially to 50%. Patient was not hypotensive requiring norepinephrine, however as soon as a left radial arterial line was placed, noted that her blood pressure was actually elevated, norepinephrine was discontinued. Patient is on amiodarone at 0.5 mg/min, he is receiving TPN, patient is on heparin drip, and his propofol dose is 10 mcg/kg/min. WBC count of 5.9 hemoglobin 8.7 INR is 1.2 chest x-ray postintubation showed evidence of congestive heart failure/interstitial edema and small right-sided pleural effusion patient will receive Lasix. He was seen again today on , patient is in the ICU, intubated, mechanicall y ventilated, he is on assist-control rate of 20 tidal volume 500 FiO2 50% and PEEP of 8 ABG showed a pO2 of 123 pCO2 47 pH of 7.35. No changes made in the ventilator settings except cutting down FiO2 to 45%. Patient remains on heparin drip, he is on propofol at 40 mcg/kg/min, receiving TPN at 35 cc/h patient is also on Zosyn. Still on Lasix at 40 mg IV push every 12 hours, chest x-ray continues to show evidence of interstitial edema/infiltrates. Patient required norepinephrine yesterday, and this has been off since 5 AM this morning. WBC count is 6.5 hemoglobin 7.9. Basic metabolic profile is normal BUN is 14 creatinine 1.83 slightly better compared to creatinine of 1.94 yesterday. After reviewing chest x-ray, patient was placed on Lasix 40 mg IV push every 12 hours. After reviewing the notes from general surgery were and the surgeon has no plans in the future to consider EGD again or PEG tube placement, recommended GI evaluation for possible PEG tube placement while the patient is intubated mechanically ventilated, and he seems to be definitely more stable now for PEG tube placement than he was prior to intubation. And will likely clear patient for PEG tube placement by cardiology prior to procedure Patient was today on 05/06/24, remains in the ICU, intubated and mechanically ventilated. Patient is on assist-control rate of 22 tidal volume 500 FiO2 45% PEEP of 8 ABG showed a pO2 of 121 pCO2 52 pH of 7.32 hence FiO2 was cut down to 40%. Chest x-ray is showing evidence of congestive heart failure however patient is improving with Lasix, and he is on Lasix now 40 mg IV push 3 times daily. Excellent urine output, remains on Zosyn. Remains on IV fluid at KVO, and propofol at 40 mcg/kg/min. Patient is sedated, however the patient will have sedation interruption today, and will be given a weaning trial although I have a feeling is not weanable yet. But at least patient will get a sedation interruption or sedation holiday today, and will be able to address hopefully his mental status sepsis. His x-ray is consistent with congestive heart failure, underlying infiltrates is not entirely ruled out. WBC count is 6.4 hemoglobin 8.1 PTT is 46.5 remains on heparin, basic metabolic profile is normal BUN is 43 creatinine 2.04 Patient was evaluated today on 05/07/24, remains in the ICU, remains intubated and mechanically ventilated, he is on assist-control rate of 22 tidal volume 500 FiO2 40% and PEEP of 8 ABG showed a pO2 of 115 pCO2 45 pH of 7.40 chest x-ray is showing slight improvement in his pulmonary edema continues to have some right lower lobe atelectasis and possibly pleural effusion patient is making over 150 cc of urine per hour. He is on propofol at 20 mcg/kg/min requiring a bit of norepinephrine at 0.02 mcg/kg/min and he remains on Zosyn as well as Lasix twice daily. Patient is arousable, opens eyes and closes eyes, but does not follow any other instruction he does close eyes upon instructions. Patient was supposed to have a PEG tube placement today, apparently gastroenterologic requesting cardiac and anesthesia clearance. Hence I have a strong feeling that the patient may have to eventually be transferred to a different institution after extubation for PEG tube placement meantime I plan to continue present supportive care measures and will eventually wean and extubate the patient hopefully in the next couple of days ideally patient is better off having his EGD and PEG tube placement while intubated and mechanically ventilated. She is extubated, it would be more risky to perform EGD and PEG tube placement labs showed WBC count of 6.2 hemoglobin 8.4 platelets are 169 basic metabolic profile is normal BUN is 46 creatinine 2.24 close to his baseline Patient was evaluated today on 05/08/24, main issue, patient was extubated yesterday after a good weaning trial. Tolerated the extubation well over the last 24 hours. Patient had an ultrasound of the chest today, there is a 7.9 cm pocket in the right pleural space, not considered large enough to consider thoracentesis at this point not to mention the patient is diuresing significantly with Lasix at 40 mg IV push every 8 hours, he is negative almost 8 L in the last few days. Hence I will hold on thoracentesis for now, not planning to do 1 at this point in time. Patient is requiring minimal dose of norepinephrine 0.01 mcg/kg/min he is on IV fluid at KVO, and he is still on Zosyn. Sputum cultures have been positive for E. coli and for Jenae's x-ray is showing improvement in his pulmonary edema, and he does have a small right- sided pleural effusion WBC count is 6.7 hemoglobin 8.5 PTT 41.2 basic metabolic profile is normal BUN is 47 creatinine 2.50 patient continues to have nasogastric tube in place for enteral feeding, from my understanding that [facility] consultants for placement of a PEG tube have declined doing wound at this point considering he had a cardiac arrest. This may have to be considered early next week, and if 1 could not be placed by any of the consultants we have on board, may have to consider transferring the patient to another hospital for PEG tube placement Patient seen and examined today on 05/09/2024, patient continues to tolerate the extubation from 2 days ago. Remains on 4 is nasal cannula, seems to be comfortable, his Lasix was discontinued however his chest x-ray is worsening and his pulmonary status is marginal and I am recommending that he goes back on Lasix 40 mg IV push twice daily and will address the Lasix dose on a daily basis. For now he definitely needs the Lasix and he needs close monitoring of his renal status, pulmonary status, daily x-rays of the chest, try to avoid reintubation on this patient as much as we can. Decision regarding his PEG tube is yet to be made next week, and if no one plans to place a PEG tube in this patient, we may have to consider transferring the patient to [facility] for PEG tube placement, apparently different consultants on the case declined PEG tube placement mostly because the patient had a cardiac arrest prior to his PEG tube placement last week. And he required intubation and mechanical ventilation. Definitely cleared the patient for PEG tube placement, and I am certain cardiology will clear him for PEG tube placementLabs today show WBC of 6.6 hemoglobin is 8 electrolytes are normal BUN 48 creatinine 2.46, baseline creatinine is in the range of 2.0 up to 2.5I's and O's were noted, patient remains in negative fluid balance for now. Objective - Vital Signs Vital signs: Vital Signs Temp 98.3 F 05/09/24 04:00 Pulse 100 05/09/24 09:27 Resp 13 05/09/24 07:00 BP 99/64 05/09/24 07:00 Pulse Ox 97 05/09/24 07:00 FiO2 4 05/08/24 04:00 Intake & Output 05/08/24 05/09/24 05/09/24 18:59 06:59 18:59 Intake Total 1021.250 990.415 180 Output Total 2370 780 105 Balance -1348.750 210.415 75 Weight 109.4 kg Intake: IV 386 396 66 0.9 KVO 110 120 20 Lactated Ringers 1,000 ml 240 240 40 @ 20 mls/hr IV .Q24H MARY ANN Rx#:[id number] pressure bag 36 36 6 Intake, IV Titration 59.250 0.415 Amount Heparin Sod,Pork in 0.45% 47.76 NaCl 25,000 unit In 0.45 % NaCl 1 250ml.bag @ 9.35 UNITS/KG/HR 9.995 mls/hr IV .Q24H MARY ANN Rx#: [id number] Norepinephrine 4 mg In 11.490 0.415 Sodium Chloride 0.9% 250 ml @ 0.05 MCG/KG/MIN 20. 765 mls/hr IV .[id number] MARY ANN Rx#:[id number] Tube Feeding 456 504 84 Other 120 90 30 Output: Urine 2370 780 105 Stool 0 Other: Voiding Method Indwelling Catheter Indwelling Catheter ABP, PAP, CO, CI - Last Documented Arterial Blood Pressure 110/50 - Exam GENERAL EXAM: Reveals 63-year-old white male on 4 L nasal cannula, not in distress. HEAD: Normocephalic. EYES: Normal reaction of pupils, equal size. NOSE: Clear with pink turbinates. Nasogastric tube in place THROAT: No erythema or exudates. NECK: No masses, no JVD. CHEST: No chest wall deformity. LUNGS: Crackles at the bases no rhonchi no wheezes CVS: Regular rate and rhythm S1 and S2 normal with no audible murmur ABDOMEN: Soft nontender no megaly no rebound SKIN: No cyanosis CENTRAL NERVOUS SYSTEM: Awake, alert and oriented x 3, seems to be a bit slow EXTREMITIES: Right foot wrapped with sterile dressing - Labs CBC & Chem 7: 05/09/24 04:47 05/09/24 04:47 Labs: Abnormal Lab Results - Last 24 Hours (Table) 05/08/24 05/09/24 05/09/24 Range/Units 11:41 04:47 04:47 RBC 2.64 L (4.30-5.90) m/uL Hgb 8.0 L (13.0-17.5) gm/dL Hct 27.6 L (39.0-53.0) % MCV 104.5 H (80.0-100.0) fL MCHC 29.1 L (31.0-37.0) g/dL RDW 22.4 H (11.5-15.5) % Lymphocytes # 0.6 L (1.0-4.8) k/uL Macrocytosis Marked A Carbon Dioxide 31 H (22-30) mmol/L BUN 48 H (9-20) mg/dL Creatinine 2.46 H (0.66-1.25) mg/dL Glucose 115 H (74-99) mg/dL POC Glucose (mg/dL) 122 H (70-110) mg/dL Calcium 8.1 L (8.4-10.2) mg/dL Microbiology - Last 24 Hours (Table) 05/06/24 12:11 Gram Stain - Final Sputum Sputum Culture - Final Escherichia coli Assessment and Plan Assessment: Impression: Cardiac arrest requiring intubation mechanical ventilation patient had cardiac arrest before even having EGD/PEG tube placement according to the notes from surgery. 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, being addressed by infectious disease on the case, remains on Zosyn Acute on chronic stage IV kidney disease Acute blood loss anemia requiring 5 units of blood transfusion Electrolytes imbalance secondary to acute on chronic kidney disease Peripheral vessel occlusive disease and previous stenting of right SFA and right popliteal artery Severe pulmonary hypertension Paroxysmal atrial fibrillation, on anticoagulation therapy History of CVA with residual dysphagia requiring PEG tube placement Type 2 diabetes Cellulitis of right foot/diabetic foot ulcer Recommendation: Continue to monitor in the ICU Continue antibiotics as per infectious disease on the case Continue nutritional support/TPN, patient is receiving nutritional support via nasogastric tube, eventually the patient will require a PEG tube, he has history of chronic aspiration and difficulty swallowing, may have to consider transfer to another hospital for PEG tube placement since multiple consultants are reluctant to place a PEG tube in this patient Continue anticoagulation therapy for his A-fib, remains on heparin continue on heparin until a final decision is made regarding PEG tube placement Continue GI prophylaxis Keep Lasix at 40 mg IV push twice daily may cut it down tomorrow to once daily not to stop it yet. Continue to monitor renal status closely Continue to monitor in ICU Will continue to Time with Patient: Less than 30
--- NOTE | 2024-05-09 11:02 | P.PN ---
Subjective Patient is seen for follow-up for acute kidney injury and chronic kidney disease. Status post cardiac arrest on 05/04/2024 prior to surgery for PEG tube placement. Patient has been extubated and doing well. He is currently being diuresed for volume overload. Renal function has been fairly stable with some fluctuation related to diuresis.. UOP at 40-70 mL an hour Objective - Vital Signs Vital signs: Vital Signs Temp 98.3 F 05/09/24 04:00 Pulse 100 05/09/24 09:27 Resp 13 05/09/24 07:00 BP 99/64 05/09/24 07:00 Pulse Ox 97 05/09/24 07:00 FiO2 4 05/08/24 04:00 Intake & Output 05/08/24 05/09/24 05/09/24 18:59 06:59 18:59 Intake Total 1021.250 990.415 180 Output Total 2370 780 105 Balance -1348.750 210.415 75 Weight 109.4 kg Intake: IV 386 396 66 0.9 KVO 110 120 20 Lactated Ringers 1,000 ml 240 240 40 @ 20 mls/hr IV .Q24H MARY ANN Rx#:[id number] pressure bag 36 36 6 Intake, IV Titration 59.250 0.415 Amount Heparin Sod,Pork in 0.45% 47.76 NaCl 25,000 unit In 0.45 % NaCl 1 250ml.bag @ 9.35 UNITS/KG/HR 9.995 mls/hr IV .Q24H MARY ANN Rx#: [id number] Norepinephrine 4 mg In 11.490 0.415 Sodium Chloride 0.9% 250 ml @ 0.05 MCG/KG/MIN 20. 765 mls/hr IV .[id number] MARY ANN Rx#:[id number] Tube Feeding 456 504 84 Other 120 90 30 Output: Urine 2370 780 105 Stool 0 Other: Voiding Method Indwelling Catheter Indwelling Catheter ABP, PAP, CO, CI - Last Documented Arterial Blood Pressure 110/50 - Exam patient is awake, comfortable, following commands Examination of the heart S1 and S2 Examination lungs bilateral breath sounds are heard, decreased breath sounds at the bases Abdomen is soft nontender Examination lower extremities shows no significant edema, right foot is wrapped - Labs CBC & Chem 7: 05/09/24 04:47 05/09/24 04:47 Labs: Abnormal Lab Results - Last 24 Hours (Table) 05/08/24 05/09/24 05/09/24 Range/Units 11:41 04:47 04:47 RBC 2.64 L (4.30-5.90) m/uL Hgb 8.0 L (13.0-17.5) gm/dL Hct 27.6 L (39.0-53.0) % MCV 104.5 H (80.0-100.0) fL MCHC 29.1 L (31.0-37.0) g/dL RDW 22.4 H (11.5-15.5) % Lymphocytes # 0.6 L (1.0-4.8) k/uL Macrocytosis Marked A Carbon Dioxide 31 H (22-30) mmol/L BUN 48 H (9-20) mg/dL Creatinine 2.46 H (0.66-1.25) mg/dL Glucose 115 H (74-99) mg/dL POC Glucose (mg/dL) 122 H (70-110) mg/dL Calcium 8.1 L (8.4-10.2) mg/dL Microbiology - Last 24 Hours (Table) 05/06/24 12:11 Gram Stain - Final Sputum Sputum Culture - Final Escherichia coli Assessment and Plan Assessment: 1. Acute kidney injury secondary to ATN secondary to acute blood loss anemia. serum creatinine staying around- 2.0 mg/dL. No hydronephrosis noted on kidney ultrasound. UA fairly benign. Currently being diuresed. 2. Chronic kidney disease stage IV baseline creatinine 1.8-2.0 secondary to s olitary right kidney. History of left nephrectomy. 3. Chronic systolic CHF ejection fraction of 35 to 40% with severe pulmonary hypertension. 4. Diabetes mellitus. 5. Hypernatremia from lack of oral water intake. Improved. 6. Hyperkalemia secondary to acute kidney injury and GI bleed. Resolved. 7. Peripheral vascular disease. 8. Acute blood loss anemia. No active bleeding. Status post blood transfusions and IV DDAVP. Also on Aranesp. GI following. Plan: continue with current dose of Lasix. Repeat labs in a.m.
--- NOTE | 2024-05-09 11:12 | XR ---
EXAM: XR chest 1V portable CLINICAL INDICATION:Male, 63 years old with history of pleural effusion; PH COMPARISON: 05/08/2024 TECHNIQUE: Chest single view. FINDINGS: Lines/tubes/devices: Stable right arm PICC terminating over the RA. NG tube again extends into the ab domen with its tip beyond the field of view. Cardiomediastinum: Cardiac silhouette appears enlarged and stable. Stable mediastinal silhouette. Vasculature: Pulmonary vascular congestion similar to before. Lungs/pleura: Diffuse increased interstitial markings and mild bilateral perihilar infiltrates stable, likely relat ed to edema with superimposed infection not completely excluded. Similar-appearing small to moderate pleural effusions with bibasilar opacities, likely atelectasis. There is no pneumothorax evident. Bones/soft tissues: Bony thorax appears grossly unchanged as seen. Regional soft tissues appear unremarkable. IMPRESSION: Overall similar findings likely related to CHF.
[2024-05-09 11:43] LABS: Glucose,Whole Blood 135 mg/dL (70-110)
--- NOTE | 2024-05-09 14:15 | P.PN ---
Subjective Progress Note Date: 05/09/24 Everett Juárez, is a 63-year-old male who presented to [facility] emergency room with a chief complaint of worsening shortness of breath and generalized weakness, patient was recently admitted to [facility] with peripheral vascular disease right foot osteomyelitis and underwent stenting of the right SFA by Dr. Dillard, he has a previous history of right great toe amputation. He was evaluated in the emergency room vital examination on presentation revealed a temperature of 98.9 pulse 110 respiration 18 blood pressure 114/72 pulse ox 96% on room air Laboratory data reveals a white blood count of 8.7 hemoglobin 11.4 platelet count 283 sodium 139 potassium 4.9 chloride 110 CO2 23 BUN 41 creatinine 2.01 D- dimer was elevated at 2.10, troponin level was elevated at 0.043 Testing in the emergency room revealed chest x-ray done in the emergency room revealed cardiomegaly and mild pulmonary vascular congestion suggestive of congestive heart failure, VQ scan showed no evidence for pulmonary embolism, EKG revealed atrial fibrillation with moderate T wave abnormalities suggestive of lateral ischemia. Patient was admitted to medical floor for further evaluation and treatment Past medical history is significant for history of atrial fibrillation, history of peripheral arterial disease with previous history of right great toe amputation, history of COPD, history of diabetes mellitus type 2, history of hyperkalemia, history of chronic kidney disease. On review of systems patient is alert and oriented x 3 in no apparent distress, he is complaining of generalized weakness, complaining of shortness of breath, which is worse with activity, and complaining of right foot pain, otherwise he denies any complaints, there is no fever or chills no headache or dizziness no chest pain, no cough no nausea or vomiting no abdominal pain no diarrhea and no urinary symptoms On 04/14/2024 patient is alert and oriented 3.Patient remains on IV Unasyn and IV Lasix. 2-D echo completed showing an EF of 35-40%. Current vital signs temp 98.3, heart 81, respiratory rate 18, blood pressure 135/67 with a pulse ox of 100% on 3 L. Patient reports improvement with shortness of breath. Patient denies nausea vomiting or diarrhea. Patient denies any urinary burning or frequency On 04/15/2024 Patient is alert and oriented 3. Patient remains on IV Unasyn. Patient has been transitioned to by mouth Lasix.Current vital signs temp 97.1, heart rate 98, respiratory rate 18, blood pressure 121/79 with pulse ox 96% on 3 L. Patient denies chest pain or shortness breath. Patient denies nausea vomiting or diarrhea. Patient denies any urinary burning or frequency. On 04/16/2024 he is alert and oriented x 3 in no apparent distress he reports improvement in his shortness of breath there is no fever or chills no headache or dizziness no chest pain no cough no nausea or vomiting no abdominal pain no diarrhea and no urinary symptoms. On 04/17/2024 patient is alert and oriented x 3. Current vital signs Temp 98.1, heart rate 100, respiratory rate 16, blood pressure 153/81 with a pulse ox of 97% on 2 L. Patient remains on IV Unasyn. Awaiting final antibiotic recommenda tions per ID. Patient denies chest pain or shortness of breath. Patient denies nausea vomiting or diarrhea. Patient denies any urinary burning or frequency. 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 Otherwise continue with current management will recheck in a.m.. On 04/19/2024 patient is alert and oriented x 3. Patient is maintained on 3 L n roberth cannula. Patient also maintained on IV Unasyn. Awaiting final IV recommendations from infectious disease. Current vital signs Temp 98.2, heart rate 82, blood pressure 116/70 with a pulse ox of 97% on 3 L patient denies chest pain or shortness of breath. Patient denies nausea vomiting or diarrhea. Patient denies any urinary burning or frequency On 04/20/2024 patient was seen and examined on the medical floor he is alert and oriented x 3 in no apparent distress, there is no fever or chills no headache or dizziness no chest pain no shortness of breath no cough no nausea or vomiting no abdominal pain no diarrhea no urinary symptoms, patient is still having difficulty with hyperkalemia, he is maintained on IV fluids and [facility] nephrology are following, will recheck labs in a.m. On 04/21/2024 patient is alert and oriented x 3. Potassium remains elevated at 5.9 awaiting further recommendations from nephrology standpoint. Patient denies chest pain or shortness of breath. Patient denies nausea vomiting or diarrhea. Patient denies any urinary burning or frequency On 04/22/2024 patient is alert and oriented x 3. Patient received 1 unit PRBCs for hemoglobin of 6.8 yesterday. GI services were consulted stool for occult blood ordered. Nephrology service is following for elevated potassium level. At this time patient denies chest pain or shortness of breath. Patient denies nausea vomiting or diarrhea. Patient denies any urinary burning frequency. On 04/23/2024 patient was seen and examined on the medical floor he is alert and oriented x 3 in no apparent distress, his hemoglobin today is again 6.01 unit of red blood cell transfusion was ordered, he was reevaluated by gastroenterology and plans are for EGD and colonoscopy tomorrow, otherwise he denies any complaints there is no fever or chills no headache or dizziness no chest pain no shortness of breath no cough no nausea or vomiting no abdominal pain no diarrhea no urinary symptoms On 04/24/2024 patient is alert and oriented 3. Plans for EGD and colonoscopy today with GI services.Patient had episodes of hypotension throughout night received IV bolus. Continue to transfuse patient for hemoglobin less than 7. Patient remains on IV Unasyn. This time patient denies chest pain or shortness breath. Patient denies nausea vomiting or diarrhea. Patient denies any urinary burning or frequency. On 04/25/2024 patient was seen and examined on the medical floor he is alert and oriented x 3 in no apparent distress there is no fever or chills no headache or dizziness no chest pain no shortness of breath no cough no nausea or vomiting no abdominal pain no diarrhea no urinary symptoms, hemoglobin is down again to 6.7 patient will be given 1 unit of red blood cell transfusion, EGD and colonoscopy results done yesterday were reviewed, at this time will consult Dr. Jackson regarding recurrent pneumonia requiring multiple red blood cell transfusion, continue with tube feeding at this time. On 04/26/2024 patient is alert and oriented x 3. Hemoglobin today 8.0. Awaiting oncology input. Patient denies chest pain or shortness of breath. Patient denies nausea vomiting or diarrhea. Patient denies any urinary burning or frequency. Current vital signs Temp 97.7, heart rate 91, respiratory rate 16, blood pressure 118/60 with pulse ox of 98% on 4 L On 04/27/2024 patient was seen and examined on the medical floor he is alert and oriented x 3 in no apparent distress he is complaining of generalized weakness otherwise he denies any specific complaints there is no fever or chills no headache or dizziness no chest pain no shortness of breath no cough no nausea or vomiting no abdominal pain no diarrhea no urinary symptoms. On 04/28/2024 patient was seen and examined on the medical floor he is alert and oriented x 3 in no apparent distress there is no fever or chills no headache or dizziness no chest pain no shortness of breath no cough no nausea or vomiting no abdominal pain no diarrhea and no urinary symptoms, hemoglobin is stabilizing around 8 will continue to monitor On 04/29/2024 patient is alert and oriented 3.heart rate elevated at 121 this AM. Patient being followed by cardiology services was given by mouth amiodarone awaiting further recommendations from cardiology services. Hemoglobin remained stable at 8.1. Patient denies chest pain or shortness of breath. Patient denies nausea vomiting or diarrhea. Patient denies any urinary burning or frequency On 04/30/2024 patient is alert resting comfortably in bed. Patient pulled out PEG tube yesterday. Patient unable to take pills by mouth. Surgical service is consulted for new PEG tube placement unable to do until Saturday due to patient being on Plavix Plavix currently on hold. Heart rate remains elevated Lopressor IV push has been ordered. Current vital signs temp 97.7, heart rate 127, blood pressure 118/72 with pulse ox 96% on 3 L. Patient denies chest pain or shortness of breath. Patient denies nausea vomiting or diarrhea. Patient denies any urinary burning or frequency on 05/01/2024 patient is resting comfortably in bed. Awaiting PEG tube placement on Saturday.current vital signs temp 98.1, heart rate 107, respiratory rate 18, blood pressure 115/73 with pulse ox 91% on 3 L. Patient denies chest pain or shortness of breath. Patient denies nausea vomiting or diarrhea On 05/02/2024 patient was seen and examined on the medical floor he is alert responsive in no apparent distress, there is no fever or chills no headache or dizziness no chest pain no shortness of breath no cough no nausea or vomiting no abdominal pain no diarrhea and no urinary symptoms, at this time we are awaiting replacement of his PEG tube, Plavix was held in that regard, PICC line was inserted and patient was started on TPN , continue current medications otherwise On 05/03/2024 patient is alert and oriented x 3 currently sitting up in bed. Per nursing staff patient is being switched to IV amiodarone for heart rate control. Patient was also started on TPN through PICC line. Patient to get PEG tube placement tomorrow and hopefully can restart back on p.o. medications for heart rate control. Patient denies chest pain or shortness of breath. Patient denies nausea vomiting or diarrhea. Patient denies any urinary burning or frequency. On 05/04/2024 patient was seen and examined in the ICU, he is currently intubated sedated maintained on mechanical ventilation, earlier this morning patient had cardiac arrest which required resuscitation and intubation and transfer to ICU, currently his vital examination reveals a temperature of 97.8 pulse 85 respiration 20 blood pressure 113/48 pulse ox 96% on mechanical ventilation FiO2 50% white blood count today 5.9 hemoglobin 8.7 platelet count 271 INR 1.2 arterial blood gas pH 7.26 P CO2 58 pO2 63 On 05/05/2025 for patient remains in the intensive care unit on mechanical ventilation.patient remains on IV heparin drip IV Lasix and IV Zosyn.current vital signs temp 97.5, heart rate 70, respiratory rate 14, blood pressure 113/63 with a pulse ox of 99% with an FiO2 of 50%. On 05/06/2024 patient remains in the intensive care unit on mechanical ventilation. Discussed with nursing staff to consult GI services for possible PEG tube placement prior to extubation.current vital signs temp 98.6, heart [id number],blood pressure 104/55 with pulse ox of 96% on an FiO2 of 40%. Patient remains on heparin drip. Patient remains on IV sedation of propofol On 05/07/2024 patient was seen and examined in the ICU he is intubated sedated maintained on mechanical ventilation, he has NG tube for feeding, awaiting replacement of his PEG tube, vital examination reveals a temperature of 98.2 pulse 112 respiration 21 blood pressure 105/50 pulse ox 97% on mechanical ventilation FiO2 35% white blood count is 6.2 hemoglobin 8.4 platelet count 169 BUN 46 creatinine 2.24 on 05/08/2024 patient was extubated yesterday patient currently on 4 L nasal cannula. Discussed case with GI services patient be reevaluated by GI services on Saturday for possible PEG tube placement. Creatinine 2.50 bun 47. Patient remains on IV Lasix. Patient currently on heparin drip. Patient was also started on Levophed for pressure support. On 05/09/2024 patient was seen and examined in the ICU he is alert and oriented x 3 in no apparent distress there is no fever or chills no headache or dizziness no chest pain no shortness of breath no cough no nausea or vomiting no abdominal pain no diarrhea no urinary symptoms. At this time we are awaiting decision in regard to PEG tube placement, will continue to follow closely. Objective - Vital Signs Vital signs: Vital Signs Temp 98.0 F 05/09/24 12:30 Pulse 106 H 05/09/24 13:00 Resp 20 05/09/24 13:00 BP 99/64 05/09/24 07:00 Pulse Ox 94 L 05/09/24 13:00 FiO2 4 05/08/24 04:00 Intake & Output 05/08/24 05/09/24 05/09/24 18:59 06:59 18:59 Intake Total 1021.250 990.415 272 Output Total 2370 780 830 Balance -1348.750 210.415 -558 Weight 109.4 kg Intake: IV 386 396 158 0.9 KVO 110 120 60 Lactated Ringers 1,000 ml 240 240 80 @ 20 mls/hr IV .Q24H [facility] Rx#:[id number] pressure bag 36 36 18 Intake, IV Titration 59.250 0.415 Amount Heparin Sod,Pork in 0.45% 47.76 NaCl 25,000 unit In 0.45 % NaCl 1 250ml.bag @ 9.35 UNITS/KG/HR 9.995 mls/hr IV .Q24H [facility] Rx#: [id number] Norepinephrine 4 mg In 11.490 0.415 Sodium Chloride 0.9% 250 ml @ 0.05 MCG/KG/MIN 20. 765 mls/hr IV .[id number] [facility] Rx#:[id number] Tube Feeding 456 504 84 Other 120 90 30 Output: Urine 2370 780 830 Stool 0 Other: Voiding Method Indwelling Catheter Indwelling Catheter Indwelling Catheter ABP, PAP, CO, CI - Last Documented Arterial Blood Pressure 122/53 - Exam In general patient is alert and oriented x 3 in no distress HEENT head normocephalic and atraumatic Neck is supple no JVD no goiter no lymphadenopathy no carotid bruit Chest examination reveals a scattered crackles in both lung [place] no wheezing Cardiac exam reveals irregular heart sounds S1 and S2 no gallops no murmurs Abdomen is soft nontender no organomegaly with normal bowel sounds Extremity exam reveals no edema no cyanosis or clubbing, the right great toe is amputated with a large ulcer at the base of the amputated right great toe with purulent discharge Neurological examination reveals no gross focal deficits - Labs CBC & Chem 7: 05/09/24 04:47 05/09/24 12:27 Labs: Abnormal Lab Results - Last 24 Hours (Table) 05/09/24 05/09/24 05/09/24 Range/Units 04:47 04:47 11:42 RBC 2.64 L (4.30-5.90) m/uL Hgb 8.0 L (13.0-17.5) gm/dL Hct 27.6 L (39.0-53.0) % MCV 104.5 H (80.0-100.0) fL MCHC 29.1 L (31.0-37.0) g/dL RDW 22.4 H (11.5-15.5) % Lymphocytes # 0.6 L (1.0-4.8) k/uL Macrocytosis Marked A Carbon Dioxide 31 H (22-30) mmol/L BUN 48 H (9-20) mg/dL Creatinine 2.46 H (0.66-1.25) mg/dL Glucose 115 H (74-99) mg/dL POC Glucose (mg/dL) 135 H (70-110) mg/dL Calcium 8.1 L (8.4-10.2) mg/dL Microbiology - Last 24 Hours (Table) 05/06/24 12:11 Gram Stain - Final Sputum Sputum Culture - Final Escherichia coli Assessment and Plan Plan: Worsening shortness of breath, multifactorial, possibly related to acute congestive heart failure, and underlying COPD Atrial fibrillation, with rapid ventricular response on presentation, heart rate was 110 status post cardiac arrest requiring intubation and mechanical ventilation. Patient extubated 05/07/2024 New onset cardiomyopathy. Anemia status post EGD and colonoscopy on 04/24/2024 Generalized weakness Large ulcer at the base of the right great toe with purulent discharge, patient was maintained on oral Augmentin as outpatient, infectious disease consultation requested Underlying history of peripheral arterial disease, with recent history of angioplasty and stent placement to the right lower extremity on 04/08/2024 Underlying history of diabetes mellitus Underlying history of chronic obstructive pulmonary disease Underlying history of chronic kidney disease Underlying history of hyperkalemia Underlying history of chronic continued tobacco abuse Patient pulled out PEG tube. Surgical surfaces consulted. patient transferred to the intensive care unit patient extubated 05/07/2025 for For DVT prophylaxis,heparin drip. GI prophylaxis Pepcid cardiology, infectious disease,critical care, nephrology and surgical service is consulted Will follow closely
--- NOTE | 2024-05-09 16:44 | P.PN ---
Subjective Progress Note Date: 05/09/24 Principal diagnosis: Reason for follow-up is right foot wound and cellulitis Patient is a 63-year-old male with a past medical history significant for diabetes mellitus hypertension hyperlipidemia pneumonia CVA TIA COPD patient did have a right big toe amputation done by and was recently admitted to the hospital concerning for pain to the right foot and cold feeling patient has been diagnosed with PAD and is s/p peripheral intervention by interventional cardiology with angioplasty of SFA and right popliteal arteries however unsuccessful angioplasty of the right anterior tibial artery patient presented to hospital with weakness hypoxemia. Patient apparently has pulled out his PEG tube and also developed A-fib with RVR for the patient was transferred to telemetry floor on 04/30/2024atient apparently did have a bradycardia arrhythmia/arrest at the time of PEG tube placement which was put on hold patient was intubated and has been transferred to the ICU on 05/04/2024. On today's evaluation that is 05/09/2024,the patient remains to be afebrile, pat ient is on 4 L nasal cannula supplemental oxygen and denies any shortness of breath no chest pain or any worsening cough.Patient denies having any nausea or vomiting, no abdominal pain and no diarrhea has been reported Patient white count 6.6, creatinine 0.46 sputum finalized with an E. coli resistant to Unasyn sensitive to Zosyn. Objective - Vital Signs Vital signs: Vital Signs Temp 98.4 F 05/09/24 16:00 Pulse 100 05/09/24 16:00 Resp 12 05/09/24 16:00 BP 99/64 05/09/24 07:00 Pulse Ox 95 05/09/24 16:00 FiO2 4 05/08/24 04:00 Intake & Output 05/08/24 05/09/24 05/09/24 18:59 06:59 18:59 Intake Total 1021.250 990.415 760 Output Total 2370 780 1280 Balance -1348.750 210.415 -520 Weight 109.4 kg Intake: IV 386 396 250 0.9 KVO 110 120 100 Lactated Ringers 1,000 ml 240 240 120 @ 20 mls/hr IV .Q24H [facility] Rx#:[id number] pressure bag 36 36 30 Intake, IV Titration 59.250 0.415 Amount Heparin Sod,Pork in 0.45% 47.76 NaCl 25,000 unit In 0.45 % NaCl 1 250ml.bag @ 9.35 UNITS/KG/HR 9.995 mls/hr IV .Q24H [facility] Rx#: [id number] Norepinephrine 4 mg In 11.490 0.415 Sodium Chloride 0.9% 250 ml @ 0.05 MCG/KG/MIN 20. 765 mls/hr IV .[id number] [facility] Rx#:[id number] Tube Feeding 456 504 420 Other 120 90 90 Output: Urine 2370 780 1280 Stool 0 Other: Voiding Method Indwelling Catheter Indwelling Catheter Indwelling Catheter ABP, PAP, CO, CI - Last Documented Arterial Blood Pressure 129/55 - Exam GENERAL DESCRIPTION: Middle-age male lying in bed in no distress RESPIRATORY SYSTEM: Unlabored breathing , decreased breath sounds at bases HEART: S1 S2 regular rate and rhythm , ABDOMEN: Soft , no tenderness EXTREMITIES: Right foot wound wound is currently dressed - Labs CBC & Chem 7: 05/09/24 04:47 05/09/24 12:27 Labs: Abnormal Lab Results - Last 24 Hours (Table) 05/09/24 05/09/24 05/09/24 Range/Units 04:47 04:47 11:42 RBC 2.64 L (4.30-5.90) m/uL Hgb 8.0 L (13.0-17.5) gm/dL Hct 27.6 L (39.0-53.0) % MCV 104.5 H (80.0-100.0) fL MCHC 29.1 L (31.0-37.0) g/dL RDW 22.4 H (11.5-15.5) % Lymphocytes # 0.6 L (1.0-4.8) k/uL Macrocytosis Marked A Carbon Dioxide 31 H (22-30) mmol/L BUN 48 H (9-20) mg/dL Creatinine 2.46 H (0.66-1.25) mg/dL Glucose 115 H (74-99) mg/dL POC Glucose (mg/dL) 135 H (70-110) mg/dL Calcium 8.1 L (8.4-10.2) mg/dL Microbiology - Last 24 Hours (Table) 05/06/24 12:11 Gram Stain - Final Sputum Sputum Culture - Final Escherichia coli Assessment and Plan (1) Cellulitis of right foot Current Visit: No Status: Acute Code(s): L03.115 - CELLULITIS OF RIGHT LOWER LIMB SNOMED Code(s): 40074416223614498 (2) Diabetic foot ulcer Current Visit: No Status: Acute Code(s): E11.621 - TYPE 2 DIABETES MELLITUS WITH FOOT ULCER; L97.509 - NON-PRESSURE CHRONIC ULCER OTH PRT UNSP FOOT W UNSP SEVERITY SNOMED Code(s): 290243155 Plan: 1patient presenting to the hospital mostly with generalized weakness low O2 sats possibly underlying cardiac etiology for the patient being managed by cardiology, patient also have a nonhealing wound to the right big toe amputation site with recent peripheral intervention and angioplasty overall wound base with minimal slough tissue no significant surrounding redness or foul-smelling drainage clinic suspicion is low for any worsening cellulitis or wound infect ion. 2patient did have significant change in his clinical condition as he did have a cardiopulmonary arrest requiring intubation has been admitted to the ICU, sputum has been requested and there was concern for possible aspiration which is currently growing E. coli that is sensitive to Zosyn but resistant to Unasyn we will keep the patient on Zosyn and monitor clinical course closely 3local wound care to the right foot wound with the Medihoney followed by moist dressing change daily Dictation was produced using [employer] dictation software. please excuse any grammatical, word or spelling errors. Time with Patient: Less than 30
--- NOTE | 2024-05-09 18:25 | P.PN ---
Subjective Progress Note Date: 05/09/24 This is a 63-year-old gentleman with extensive past medical history consistent of peripheral arterial disease as well as atrial fibrillation likely to be permanent as well as multiple comorbid conditions including recent diagnosis of cardiomyopathy and hypertension and dyslipidemia and diabetes and anemia was admitted to the hospital with shortness of breath. The patient recently had a stroke and apparently he cannot swallow. He has not been taking his oral medication and for that reason he went into A-fib with RVR and he was started on Cardizem IV. Eliquis was on hold because of anemia and also possible having PEG tube this coming Thursday May 02, 2024 The patient was seen and evaluated this morning with he is breathing has improved. His hypoxemia has improved as well. No symptoms of chest pain or chest discomfort. He continues to be in atrial fibrillation with controlled heart rate on the current dose of Cardizem IV. He is not on anticoagulation for the above reason. His mentation has improved significantly as well. He seems to be overall euvolemic on examination as well. Examination is remarkable for irregular rhythm with controlled heart rate and clear breathing sounds bila terally and mild bilateral lower extremities edema May 03, 2024 The patient was seen and evaluated this morning. His mentation has somewhat improved compared to before. His pressure has been marginally low and his creatinine is slightly increased compared to yesterday. Currently he is on Cardizem IV which I am going to stop and start the patient on amiodarone IV. Beside that he is not on any blood pressure medications. Anticoagulation is on hold at this point in the process of having a break tube placed tomorrow. No symptoms of chest pain or chest discomfort. Examination is remarkable for irregular rhythm with overall controlled heart rate and scattered bilateral rhonchi. May 04, 2024 Patient seen and examined at bedside. Patient was scheduled for a PEG tube placement yesterday. Before initiating the procedure patient had a asystole cardiac arrest requiring brief CPR and epinephrine. Patient had atrial fibrillation with uncontrolled rate after achieving ROSC. He is maintained on vent support May 05, 2024 Patient is seen and examined at bedside this a.m. He is maintained on vent support. No further concerns of blocks noticed on telemetry. He is maintained in rate control atrial fibrillation. May 06, 2024 Patient is seen and examined at bedside this a.m. He is maintained on ventilator support. He has been planned to undergo PEG tube placement tomorrow. May 07, 2024 Patient seen and examined at bedside this a.m. He continues to be on ventilator support. Today his systolic blood pressure is running a bit low therefore he is requiring low-dose of norepinephrine to supplement his blood pressure. May 08, 2024 Seen and examined with his exam. Will successfully extubated today. Continues to be in atrial fibrillation rate controlled. Blood pressure is better controlled. May 08, 2024 Seen and examined at bedside this a.m. Continues to be in rate controlled atrial fibrillation. Appears euvolemic. Renal function is stable. Creatinine 2.4 Examination S1-S2 is audible, mild systolic murmur audible, irregular pulse Poor inspiratory effort, rhonchi and crackles audible in bilateral lung layton 1+ edema bilateral lower extremity Detailed neuroexam was not performed Assessment Asystole cardiac arrest, likely due to excessive amiodarone use. Change in mental status which has improved Hypoxemia which has improved Shortness of breath which has improved Atrial fibrillation with controlled heart rate on the current dose of Cardizem IV History of permanent atrial fibrillation Marginally low blood pressure Acute on chronic renal failure Multiple comorbid conditions including anemia Plan Continue amiodarone 200 mg daily Continue aspirin 81 mg, atorvastatin 40 mg daily. Continue metoprolol 25 mg twice daily. Hold diuretics Eliquis 2.5 mg twice daily At this time cardiology team will sign off. Please reconsult us in case of any question Objective - Vital Signs Vital signs: Vital Signs Temp 98.4 F 05/09/24 16:00 Pulse 112 H 05/09/24 17:00 Resp 13 05/09/24 17:00 BP 99/64 05/09/24 07:00 Pulse Ox 97 05/09/24 17:00 FiO2 4 05/08/24 04:00 Intake & Output 05/08/24 05/09/24 05/09/24 18:59 06:59 18:59 Intake Total 1021.250 990.415 760 Output Total 2370 780 1280 Balance -1348.750 210.415 -520 Weight 109.4 kg Intake: IV 386 396 250 0.9 KVO 110 120 100 Lactated Ringers 1,000 ml 240 240 120 @ 20 mls/hr IV .Q24H [facility], [facility]–1983 Rx#:[id number] pressure bag 36 36 30 Intake, IV Titration 59.250 0.415 Amount Heparin Sod,Pork in 0.45% 47.76 NaCl 25,000 unit In 0.45 % NaCl 1 250ml.bag @ 9.35 UNITS/KG/HR 9.995 mls/hr IV .Q24H [facility] Rx#: [id number] Norepinephrine 4 mg In 11.490 0.415 Sodium Chloride 0.9% 250 ml @ 0.05 MCG/KG/MIN 20. 765 mls/hr IV .[id number] [facility] Rx#:[id number] Tube Feeding 456 504 420 Other 120 90 90 Output: Urine 2370 780 1280 Stool 0 Other: Voiding Method Indwelling Catheter Indwelling Catheter Indwelling Catheter ABP, PAP, CO, CI - Last Documented Arterial Blood Pressure 144/66 - Labs CBC & Chem 7: 05/09/24 04:47 05/09/24 12:27 Labs: Abnormal Lab Results - Last 24 Hours (Table) 05/09/24 05/09/24 05/09/24 Range/Units 04:47 04:47 11:42 RBC 2.64 L (4.30-5.90) m/uL Hgb 8.0 L (13.0-17.5) gm/dL Hct 27.6 L (39.0-53.0) % MCV 104.5 H (80.0-100.0) fL MCHC 29.1 L (31.0-37.0) g/dL RDW 22.4 H (11.5-15.5) % Lymphocytes # 0.6 L (1.0-4.8) k/uL Macrocytosis Marked A Carbon Dioxide 31 H (22-30) mmol/L BUN 48 H (9-20) mg/dL Creatinine 2.46 H (0.66-1.25) mg/dL Glucose 115 H (74-99) mg/dL POC Glucose (mg/dL) 135 H (70-110) mg/dL Calcium 8.1 L (8.4-10.2) mg/dL Microbiology - Last 24 Hours (Table) 05/06/24 12:11 Gram Stain - Final Sputum Sputum Culture - Final Escherichia coli
[2024-05-09 19:16] LABS: Glucose,Whole Blood 112 mg/dL (70-110)
[2024-05-09 23:48] LABS: Glucose,Whole Blood 128 mg/dL (70-110)
[2024-05-10 04:48] LABS: Anisocytosis Moderate; Basophils % (A) 1 %; Eosinophils # (A) 0.7 k/uL (0-0.7); Eosinophils % (A) 9 %; HCT 27.4 % (39.0-53.0); HGB 8.1 gm/dL (13.0-17.5); Hypochromasia Marked; Lymphocytes # (A) 0.7 k/uL (1.0-4.8); Lymphocytes % (A) 9 %; MCH 30.9 pg (25.0-35.0); MCHC 29.7 g/dL (31.0-37.0); MCV 103.9 fL (80.0-100.0); Monocytes # (A) 0.7 k/uL (0-1.0); Monocytes % (A) 9 %; Neutrophils # (A) 5.4 k/uL (1.3-7.7); Neutrophils % (A) 70 %; Platelet Count 157 k/uL (150-450); Poikilocytosis Moderate; RBC 2.63 m/uL (4.30-5.90); WBC 7.7 k/uL (3.8-10.6)
[2024-05-10 05:02] LABS: Macrocytosis Marked
[2024-05-10 05:10] LABS: ALT 36 U/L (4-49); AST 75 U/L (17-59); African American GFR (CKD) 34 (>60 ml/min/1.73 sqM); Albumin 2.8 g/dL (3.5-5.0); Alkaline Phosphatase 71 U/L (38-126); Anion Gap 4 mmol/L; Blood Urea Nitrogen 52 mg/dL (9-20); Calcium 8.3 mg/dL (8.4-10.2); Carbon Dioxide 32 mmol/L (22-30); Chloride 105 mmol/L (98-107); Glucose 115 mg/dL (74-99); Non-African American GFR(CKD) 29 (>60 ml/min/1.73 sqM); Sodium 141 mmol/L (137-145); Total Bilirubin 0.6 mg/dL (0.2-1.3); Total Protein 5.5 g/dL (6.3-8.2)
[2024-05-10 05:23] LABS: Glucose,Whole Blood 113 mg/dL (70-110)
--- NOTE | 2024-05-10 10:20 | P.PN ---
Subjective Progress Note Date: 05/10/24 Everett Juárez, is a 63-year-old male who presented to [facility] emergency room with a chief complaint of worsening shortness of breath and generalized weakness, patient was recently admitted to [facility] with peripheral vascular disease right foot osteomyelitis and underwent stenting of the right SFA by Dr. Dillard, he has a previous history of right great toe amputation. He was evaluated in the emergency room vital examination on presentation revealed a temperature of 98.9 pulse 110 respiration 18 blood pressure 114/72 pulse ox 96% on room air Laboratory data reveals a white blood count of 8.7 hemoglobin 11.4 platelet count 283 sodium 139 potassium 4.9 chloride 110 CO2 23 BUN 41 creatinine 2.01 D- dimer was elevated at 2.10, troponin level was elevated at 0.043 Testing in the emergency room revealed chest x-ray done in the emergency room revealed cardiomegaly and mild pulmonary vascular congestion suggestive of congestive heart failure, VQ scan showed no evidence for pulmonary embolism, EKG revealed atrial fibrillation with moderate T wave abnormalities suggestive of lateral ischemia. Patient was admitted to medical floor for further evaluation and treatment Past medical history is significant for history of atrial fibrillation, history of peripheral arterial disease with previous history of right great toe amputation, history of COPD, history of diabetes mellitus type 2, history of hyperkalemia, history of chronic kidney disease. On review of systems patient is alert and oriented x 3 in no apparent distress, he is complaining of generalized weakness, complaining of shortness of breath, which is worse with activity, and complaining of right foot pain, otherwise he denies any complaints, there is no fever or chills no headache or dizziness no chest pain, no cough no nausea or vomiting no abdominal pain no diarrhea and no urinary symptoms On 04/14/2024 patient is alert and oriented 3.Patient remains on IV Unasyn and IV Lasix. 2-D echo completed showing an EF of 35-40%. Current vital signs temp 98.3, heart 81, respiratory rate 18, blood pressure 135/67 with a pulse ox of 100% on 3 L. Patient reports improvement with shortness of breath. Patient denies nausea vomiting or diarrhea. Patient denies any urinary burning or frequency On 04/15/2024 Patient is alert and oriented 3. Patient remains on IV Unasyn. Patient has been transitioned to by mouth Lasix.Current vital signs temp 97.1, heart rate 98, respiratory rate 18, blood pressure 121/79 with pulse ox 96% on 3 L. Patient denies chest pain or shortness breath. Patient denies nausea vomiting or diarrhea. Patient denies any urinary burning or frequency. On 04/16/2024 he is alert and oriented x 3 in no apparent distress he reports improvement in his shortness of breath there is no fever or chills no headache or dizziness no chest pain no cough no nausea or vomiting no abdominal pain no diarrhea and no urinary symptoms. On 04/17/2024 patient is alert and oriented x 3. Current vital signs Temp 98.1, heart rate 100, respiratory rate 16, blood pressure 153/81 with a pulse ox of 97% on 2 L. Patient remains on IV Unasyn. Awaiting final antibiotic recommenda tions per ID. Patient denies chest pain or shortness of breath. Patient denies nausea vomiting or diarrhea. Patient denies any urinary burning or frequency. On 04/18/2024 patient was seen and examined on the medical floor he is alert and oriented x 3 in no apparent distress there is no fever or chills no headache or dizziness no chest pain no shortness of breath no cough no nausea or vomiting no abdominal pain no diarrhea no urinary symptoms, he is still maintained on oxygen supplements, patient need to be assessed for need for home oxygen, he is also maintained on tube feeding, field nurse case manager is working on arrangement for tube feeding at home. Otherwise continue with current management will recheck in a.m.. On 04/19/2024 patient is alert and oriented x 3. Patient is maintained on 3 L n roberth cannula. Patient also maintained on IV Unasyn. Awaiting final IV recommendations from infectious disease. Current vital signs Temp 98.2, heart rate 82, blood pressure 116/70 with a pulse ox of 97% on 3 L patient denies chest pain or shortness of breath. Patient denies nausea vomiting or diarrhea. Patient denies any urinary burning or frequency On 04/20/2024 patient was seen and examined on the medical floor he is alert and oriented x 3 in no apparent distress, there is no fever or chills no headache or dizziness no chest pain no shortness of breath no cough no nausea or vomiting no abdominal pain no diarrhea no urinary symptoms, patient is still having difficulty with hyperkalemia, he is maintained on IV fluids and [facility] nephrology are following, will recheck labs in a.m. On 04/21/2024 patient is alert and oriented x 3. Potassium remains elevated at 5.9 awaiting further recommendations from nephrology standpoint. Patient denies chest pain or shortness of breath. Patient denies nausea vomiting or diarrhea. Patient denies any urinary burning or frequency On 04/22/2024 patient is alert and oriented x 3. Patient received 1 unit PRBCs for hemoglobin of 6.8 yesterday. GI services were consulted stool for occult blood ordered. Nephrology service is following for elevated potassium level. At this time patient denies chest pain or shortness of breath. Patient denies nausea vomiting or diarrhea. Patient denies any urinary burning frequency. On 04/23/2024 patient was seen and examined on the medical floor he is alert and oriented x 3 in no apparent distress, his hemoglobin today is again 6.01 unit of red blood cell transfusion was ordered, he was reevaluated by gastroenterology and plans are for EGD and colonoscopy tomorrow, otherwise he denies any complaints there is no fever or chills no headache or dizziness no chest pain no shortness of breath no cough no nausea or vomiting no abdominal pain no diarrhea no urinary symptoms On 04/24/2024 patient is alert and oriented 3. Plans for EGD and colonoscopy today with GI services.Patient had episodes of hypotension throughout night received IV bolus. Continue to transfuse patient for hemoglobin less than 7. Patient remains on IV Unasyn. This time patient denies chest pain or shortness breath. Patient denies nausea vomiting or diarrhea. Patient denies any urinary burning or frequency. On 04/25/2024 patient was seen and examined on the medical floor he is alert and oriented x 3 in no apparent distress there is no fever or chills no headache or dizziness no chest pain no shortness of breath no cough no nausea or vomiting no abdominal pain no diarrhea no urinary symptoms, hemoglobin is down again to 6.7 patient will be given 1 unit of red blood cell transfusion, EGD and colonoscopy results done yesterday were reviewed, at this time will consult Dr. Jackson regarding recurrent pneumonia requiring multiple red blood cell transfusion, continue with tube feeding at this time. On 04/26/2024 patient is alert and oriented x 3. Hemoglobin today 8.0. Awaiting oncology input. Patient denies chest pain or shortness of breath. Patient denies nausea vomiting or diarrhea. Patient denies any urinary burning or frequency. Current vital signs Temp 97.7, heart rate 91, respiratory rate 16, blood pressure 118/60 with pulse ox of 98% on 4 L On 04/27/2024 patient was seen and examined on the medical floor he is alert and oriented x 3 in no apparent distress he is complaining of generalized weakness otherwise he denies any specific complaints there is no fever or chills no headache or dizziness no chest pain no shortness of breath no cough no nausea or vomiting no abdominal pain no diarrhea no urinary symptoms. On 04/28/2024 patient was seen and examined on the medical floor he is alert and oriented x 3 in no apparent distress there is no fever or chills no headache or dizziness no chest pain no shortness of breath no cough no nausea or vomiting no abdominal pain no diarrhea and no urinary symptoms, hemoglobin is stabilizing around 8 will continue to monitor On 04/29/2024 patient is alert and oriented 3.heart rate elevated at 121 this AM. Patient being followed by cardiology services was given by mouth amiodarone awaiting further recommendations from cardiology services. Hemoglobin remained stable at 8.1. Patient denies chest pain or shortness of breath. Patient denies nausea vomiting or diarrhea. Patient denies any urinary burning or frequency On 04/30/2024 patient is alert resting comfortably in bed. Patient pulled out PEG tube yesterday. Patient unable to take pills by mouth. Surgical service is consulted for new PEG tube placement unable to do until Saturday due to patient being on Plavix Plavix currently on hold. Heart rate remains elevated Lopressor IV push has been ordered. Current vital signs temp 97.7, heart rate 127, blood pressure 118/72 with pulse ox 96% on 3 L. Patient denies chest pain or shortness of breath. Patient denies nausea vomiting or diarrhea. Patient denies any urinary burning or frequency on 05/01/2024 patient is resting comfortably in bed. Awaiting PEG tube placement on Saturday.current vital signs temp 98.1, heart rate 107, respiratory rate 18, blood pressure 115/73 with pulse ox 91% on 3 L. Patient denies chest pain or shortness of breath. Patient denies nausea vomiting or diarrhea On 05/02/2024 patient was seen and examined on the medical floor he is alert responsive in no apparent distress, there is no fever or chills no headache or dizziness no chest pain no shortness of breath no cough no nausea or vomiting no abdominal pain no diarrhea and no urinary symptoms, at this time we are awaiting replacement of his PEG tube, Plavix was held in that regard, PICC line was inserted and patient was started on TPN , continue current medications otherwise On 05/03/2024 patient is alert and oriented x 3 currently sitting up in bed. Per nursing staff patient is being switched to IV amiodarone for heart rate control. Patient was also started on TPN through PICC line. Patient to get PEG tube placement tomorrow and hopefully can restart back on p.o. medications for heart rate control. Patient denies chest pain or shortness of breath. Patient denies nausea vomiting or diarrhea. Patient denies any urinary burning or frequency. On 05/04/2024 patient was seen and examined in the ICU, he is currently intubated sedated maintained on mechanical ventilation, earlier this morning patient had cardiac arrest which required resuscitation and intubation and transfer to ICU, currently his vital examination reveals a temperature of 97.8 pulse 85 respiration 20 blood pressure 113/48 pulse ox 96% on mechanical ventilation FiO2 50% white blood count today 5.9 hemoglobin 8.7 platelet count 271 INR 1.2 arterial blood gas pH 7.26 P CO2 58 pO2 63 On 05/05/2025 for patient remains in the intensive care unit on mechanical ventilation.patient remains on IV heparin drip IV Lasix and IV Zosyn.current vital signs temp 97.5, heart rate 70, respiratory rate 14, blood pressure 113/63 with a pulse ox of 99% with an FiO2 of 50%. On 05/06/2024 patient remains in the intensive care unit on mechanical ventilation. Discussed with nursing staff to consult GI services for possible PEG tube placement prior to extubation.current vital signs temp 98.6, heart [id number],blood pressure 104/55 with pulse ox of 96% on an FiO2 of 40%. Patient remains on heparin drip. Patient remains on IV sedation of propofol On 05/07/2024 patient was seen and examined in the ICU he is intubated sedated maintained on mechanical ventilation, he has NG tube for feeding, awaiting replacement of his PEG tube, vital examination reveals a temperature of 98.2 pulse 112 respiration 21 blood pressure 105/50 pulse ox 97% on mechanical ventilation FiO2 35% white blood count is 6.2 hemoglobin 8.4 platelet count 169 BUN 46 creatinine 2.24 on 05/08/2024 patient was extubated yesterday patient currently on 4 L nasal cannula. Discussed case with GI services patient be reevaluated by GI services on Saturday for possible PEG tube placement. Creatinine 2.50 bun 47. Patient remains on IV Lasix. Patient currently on heparin drip. Patient was also started on Levophed for pressure support. On 05/09/2024 patient was seen and examined in the ICU he is alert and oriented x 3 in no apparent distress there is no fever or chills no headache or dizziness no chest pain no shortness of breath no cough no nausea or vomiting no abdominal pain no diarrhea no urinary symptoms. At this time we are awaiting decision in regard to PEG tube placement, will continue to follow closely. On 05/10/2024 for patient remains in the intensive care unit. Patient remains on IV Lasix and IV Zosyn. tube feedings through NG tube awaiting decision in regards to PEG tube. patient denies chest pain or shortness of breath. Patient denies nausea vomiting or diarrhea. Denies any urinary burning or frequency Objective - Vital Signs Vital signs: Vital Signs Temp 98.6 F 05/10/24 08:00 Pulse 101 H 05/10/24 10:00 Resp 14 05/10/24 10:00 BP 99/64 05/10/24 07:00 Pulse Ox 96 05/10/24 10:00 FiO2 4 05/08/24 04:00 Intake & Output 05/09/24 05/10/24 05/10/24 18:59 06:59 18:59 Intake Total 890 960 111 Output Total 1430 1260 215 Balance -540 -300 -104 Intake: IV 296 336 69 0.9 KVO 120 120 30 Lactated Ringers 1,000 ml 140 80 30 @ 20 mls/hr IV .Q24H [facility] Rx#:[id number] Piperacillin-Tazobactam 3 100 .375 gm In Sodium Chloride 0.9% 100 ml @ 25 mls/hr IVPB Q8HR [facility] Rx# :[id number] pressure bag 36 36 9 Tube Feeding 504 504 42 Other 90 120 Output: Urine 1430 1260 215 Other: Voiding Method Indwelling Catheter Indwelling Catheter ABP, PAP, CO, CI - Last Documented Arterial Blood Pressure 110/54 - Exam In general patient is alert and oriented x 3 in no distress HEENT head normocephalic and atraumatic Neck is supple no JVD no goiter no lymphadenopathy no carotid bruit Chest examination reveals a scattered crackles in both lung layton no wheezing Cardiac exam reveals irregular heart sounds S1 and S2 no gallops no murmurs Abdomen is soft nontender no organomegaly with normal bowel sounds Extremity exam reveals no edema no cyanosis or clubbing, the right great toe is amputated with a large ulcer at the base of the amputated right great toe with purulent discharge Neurological examination reveals no gross focal deficits - Labs CBC & Chem 7: 05/10/24 04:30 05/10/24 04:30 Labs: Abnormal Lab Results - Last 24 Hours (Table) 05/09/24 05/09/24 05/09/24 Range/Units 11:42 19:14 23:46 RBC (4.30-5.90) m/uL Hgb (13.0-17.5) gm/dL Hct (39.0-53.0) % MCV (80.0-100.0) fL MCHC (31.0-37.0) g/dL RDW (11.5-15.5) % Lymphocytes # (1.0-4.8) k/uL Macrocytosis Carbon Dioxide (22-30) mmol/L BUN (9-20) mg/dL Creatinine (0.66-1.25) mg/dL Glucose (74-99) mg/dL POC Glucose (mg/dL) 135 H 112 H 128 H (70-110) mg/dL Calcium (8.4-10.2) mg/dL AST (17-59) U/L Total Protein (6.3-8.2) g/dL Albumin (3.5-5.0) g/dL 05/10/24 05/10/24 05/10/24 Range/Units 04:30 04:30 05:21 RBC 2.63 L (4.30-5.90) m/uL Hgb 8.1 L (13.0-17.5) gm/dL Hct 27.4 L (39.0-53.0) % MCV 103.9 H (80.0-100.0) fL MCHC 29.7 L (31.0-37.0) g/dL RDW 22.0 H (11.5-15.5) % Lymphocytes # 0.7 L (1.0-4.8) k/uL Macrocytosis Marked A Carbon Dioxide 32 H (22-30) mmol/L BUN 52 H (9-20) mg/dL Creatinine 2.29 H (0.66-1.25) mg/dL Glucose 115 H (74-99) mg/dL POC Glucose (mg/dL) 113 H (70-110) mg/dL Calcium 8.3 L (8.4-10.2) mg/dL AST 75 H (17-59) U/L Total Protein 5.5 L (6.3-8.2) g/dL Albumin 2.8 L (3.5-5.0) g/dL Microbiology - Last 24 Hours (Table) 05/06/24 12:11 Gram Stain - Final Sputum Sputum Culture - Final Escherichia coli Assessment and Plan Plan: Worsening shortness of breath, multifactorial, possibly related to acute congestive heart failure, and underlying COPD Atrial fibrillation, with rapid ventricular response on presentation, heart rate was 110 status post cardiac arrest requiring intubation and mechanical ventilation. Patient extubated 05/07/2024 New onset cardiomyopathy. Anemia status post EGD and colonoscopy on 04/24/2024 Generalized weakness Large ulcer at the base of the right great toe with purulent discharge, patient was maintained on oral Augmentin as outpatient, infectious disease consultation requested Underlying history of peripheral arterial disease, with recent history of angioplasty and stent placement to the right lower extremity on 04/08/2024 Underlying history of diabetes mellitus Underlying history of chronic obstructive pulmonary disease Underlying history of chronic kidney disease Underlying history of hyperkalemia Underlying history of chronic continued tobacco abuse Patient pulled out PEG tube. Surgical surfaces consulted. patient transferred to the intensive care unit patient extubated 05/07/2024 For DVT prophylaxis,heparin drip. GI prophylaxis Pepcid cardiology, infectious disease,critical care, nephrology and surgical service is consulted Will follow closely
--- NOTE | 2024-05-10 10:31 | P.PN ---
Subjective Progress Note Date: 05/10/24 Principal diagnosis: Acute exacerbation of systolic congestive heart failure and acute cellulitis of right foot, cardiac arrest This is a 63-year-old white male with history of multiple medical problems including coronary artery disease, chronic atrial fibrillation, peripheral vessel occlusive disease, severe pulmonary hypertension, chronic obstructive pulmonary disease, patient normally sees Dr. Dillard on outpatient basis. Patient was never seen by a peer counselor. Admitted this time with few days history of increased shortness of breath, and according to the his O2 saturation was down in the 60s. Patient was brought into the ER, chest x-ray showed evidence of pulmonary edema, VQ scan negative for pulmonary embolism, patient was admitted and this consult was initiated. Patient is not a great historian, most of the information was obtained from his , apparently the patient had history of CVA in the past, and he had a previous PEG tube placement Labs on admission showed relatively normal CBC, no leukocytosis, D-dimer was a bit elevated at 2.10 and renal profile was abnormal with BUN of 43 and creatinine 2.01 however BNP level was 12,300 and troponin was 0.043. Since admission, the patient received 1 dose of Lasix, and he is at least 1.5 L negative fluid balance The patient is seen today April 14, 2024 in follow-up on the selective care unit. He is currently sitting up at the bedside. Awake and alert in no acute distress. Breathing a bit easier today compared to yesterday. Currently maintaining good O2 saturations in the upper 90s on 3 L/min per nasal cannula. He is afebrile. Hemodynamically stable. Echocardiogram reveals impaired left ventricular systolic function with an ejection fraction of 35 to 40%. Severe pulmonary hypertension. Moderate to severely dilated left atrium. Right first toe culture is pending. Currently on Unasyn. Glucose 125. Being nourished with Glucerna at 51 MLS per hour via his PEG tube. Anticoagulated with Eliquis. Remains on diuretics. Making adequate urine. The patient is seen today April 15, 2024 in follow-up on the selective care unit. He is awake and alert in no acute distress. Maintaining O2 saturations in the 90s on 3 L/min per nasal cannula. Hemodynamically stable. White count 8.4. Hemoglobin 11.2. Platelets 321. Sodium 143. Potassium 4.9. Bicarb 29. BUN 45. Creatinine 1.99. Glucose 126. He is continued on Unasyn. Anticoagulated with Eliquis. Remains on bronchodilators. Remains on oral diuretics. Continued on Glucerna via his PEG tube. Barium swallow is pending so the patient can continue on tube feedings in the outpatient setting Patient was evaluated today on 04/16/2024, patient is doing well, comfortable, not in any distress, on 3 L nasal cannula with O2 sats of 96%. WBC is 8.5 hemoglobin 10.5 electrolytes are relatively normal with potassium of 5.2 BUN is 48 creatinine 1.94, steadily improving since admission patient had a successful swallow evaluation study that came back unremarkable. Progress note dated May 02, 2024. 63-year-old male who is now been in the hospital for about 3 weeks. Currently, he is on 2 L of oxygen by nasal cannula, getting saline at 75 cc an hour, Cardizem at 5 mg an hour, and TPN at 30 MLS per hour. He is sitting at the side of his bed. No respiratory distress or difficulty. The plan is to replace his PEG tube on Saturday. He apparently accidentally pulled it out. Current labs include sodium 141, potassium 4.9, chlorides 110, CO2 26, anion gap 5, BUN 35, creatinine 1.92. Glucose is 149. Albumin is 2.6. Calcium is 7.6. Chest x-ray from yesterday is consistent with cardiomegaly. Progress note dated May 03, 2024. 63-year-old male seen today in room 353. Currently, the patient is on nasal O2 at 2 L. He is not receiving any IV fluids. The patient continues on IV Unasyn. The patient is supposed to have a reinsertion of the PEG tube, that he accidentally pulled out, tomorrow, May 05. The patient has no specific complaints today. Current labs include a white count 6.4, hemoglobin 8.3, hemat ocrit 28.7, platelet count 274,000. Sodium 139, potassium 4.6, chlorides 108, CO2 28, BUN 37, creatinine 2.04. Glucose is 180. Albumin is 2.6. Patient was given today on 05/04/2024, patient was in the endoscopy suite to undergo PEG tube placement, apparently patient received mild sedation, and he went on to develop cardiopulmonary arrest. Patient had chest compression, received epinephrine, intubated in the meantime, and was sent back to ICU intubated and make ventilated. Patient is on assist-control rate of 16 tidal volume 500 FiO2 50%, PEEP of 8 ABG showed a pO2 of 62 pCO2 58 pH of 7.26. Hence his rate was increased to 20. And FiO2 was changed from 100% initially to 50%. Patient was not hypotensive requiring norepinephrine, however as soon as a left radial arterial line was placed, noted that her blood pressure was actually elevated, norepinephrine was discontinued. Patient is on amiodarone at 0.5 mg/min, he is receiving TPN, patient is on heparin drip, and his propofol dose is 10 mcg/kg/min. WBC count of 5.9 hemoglobin 8.7 INR is 1.2 chest x-ray postintubation showed evidence of congestive heart failure/interstitial edema and small right-sided pleural effusion patient will receive Lasix. He was seen again today on , patient is in the ICU, intubated, mechanicall y ventilated, he is on assist-control rate of 20 tidal volume 500 FiO2 50% and PEEP of 8 ABG showed a pO2 of 123 pCO2 47 pH of 7.35. No changes made in the ventilator settings except cutting down FiO2 to 45%. Patient remains on heparin drip, he is on propofol at 40 mcg/kg/min, receiving TPN at 35 cc/h patient is also on Zosyn. Still on Lasix at 40 mg IV push every 12 hours, chest x-ray continues to show evidence of interstitial edema/infiltrates. Patient required norepinephrine yesterday, and this has been off since 5 AM this morning. WBC count is 6.5 hemoglobin 7.9. Basic metabolic profile is normal BUN is 14 creatinine 1.83 slightly better compared to creatinine of 1.94 yesterday. After reviewing chest x-ray, patient was placed on Lasix 40 mg IV push every 12 hours. After reviewing the notes from general surgery were and the surgeon has no plans in the future to consider EGD again or PEG tube placement, recommended GI evaluation for possible PEG tube placement while the patient is intubated mechanically ventilated, and he seems to be definitely more stable now for PEG tube placement than he was prior to intubation. And will likely clear patient for PEG tube placement by cardiology prior to procedure Patient was today on 05/06/24, remains in the ICU, intubated and mechanically ventilated. Patient is on assist-control rate of 22 tidal volume 500 FiO2 45% PEEP of 8 ABG showed a pO2 of 121 pCO2 52 pH of 7.32 hence FiO2 was cut down to 40%. Chest x-ray is showing evidence of congestive heart failure however patient is improving with Lasix, and he is on Lasix now 40 mg IV push 3 times daily. Excellent urine output, remains on Zosyn. Remains on IV fluid at KVO, and propofol at 40 mcg/kg/min. Patient is sedated, however the patient will have sedation interruption today, and will be given a weaning trial although I have a feeling is not weanable yet. But at least patient will get a sedation interruption or sedation holiday today, and will be able to address hopefully his mental status sepsis. His x-ray is consistent with congestive heart failure, underlying infiltrates is not entirely ruled out. WBC count is 6.4 hemoglobin 8.1 PTT is 46.5 remains on heparin, basic metabolic profile is normal BUN is 43 creatinine 2.04 Patient was evaluated today on 05/07/24, remains in the ICU, remains intubated and mechanically ventilated, he is on assist-control rate of 22 tidal volume 500 FiO2 40% and PEEP of 8 ABG showed a pO2 of 115 pCO2 45 pH of 7.40 chest x-ray is showing slight improvement in his pulmonary edema continues to have some right lower lobe atelectasis and possibly pleural effusion patient is making over 150 cc of urine per hour. He is on propofol at 20 mcg/kg/min requiring a bit of norepinephrine at 0.02 mcg/kg/min and he remains on Zosyn as well as Lasix twice daily. Patient is arousable, opens eyes and closes eyes, but does not follow any other instruction he does close eyes upon instructions. Patient was supposed to have a PEG tube placement today, apparently gastroenterologic requesting cardiac and anesthesia clearance. Hence I have a strong feeling that the patient may have to eventually be transferred to a different institution after extubation for PEG tube placement meantime I plan to continue present supportive care measures and will eventually wean and extubate the patient hopefully in the next couple of days ideally patient is better off having his EGD and PEG tube placement while intubated and mechanically ventilated. She is extubated, it would be more risky to perform EGD and PEG tube placement labs showed WBC count of 6.2 hemoglobin 8.4 platelets are 169 basic metabolic profile is normal BUN is 46 creatinine 2.24 close to his baseline Patient was evaluated today on 05/08/24, main issue, patient was extubated yesterday after a good weaning trial. Tolerated the extubation well over the last 24 hours. Patient had an ultrasound of the chest today, there is a 7.9 cm pocket in the right pleural space, not considered large enough to consider thoracentesis at this point not to mention the patient is diuresing significantly with Lasix at 40 mg IV push every 8 hours, he is negative almost 8 L in the last few days. Hence I will hold on thoracentesis for now, not planning to do 1 at this point in time. Patient is requiring minimal dose of norepinephrine 0.01 mcg/kg/min he is on IV fluid at KVO, and he is still on Zosyn. Sputum cultures have been positive for E. coli and for Jenae's x-ray is showing improvement in his pulmonary edema, and he does have a small right- sided pleural effusion WBC count is 6.7 hemoglobin 8.5 PTT 41.2 basic metabolic profile is normal BUN is 47 creatinine 2.50 patient continues to have nasogastric tube in place for enteral feeding, from my understanding that [facility] consultants for placement of a PEG tube have declined doing wound at this point considering he had a cardiac arrest. This may have to be considered early next week, and if 1 could not be placed by any of the consultants we have on board, may have to consider transferring the patient to another hospital for PEG tube placement Patient seen and examined today on 05/09/2024, patient continues to tolerate the extubation from 2 days ago. Remains on 4 is nasal cannula, seems to be comfortable, his Lasix was discontinued however his chest x-ray is worsening and his pulmonary status is marginal and I am recommending that he goes back on Lasix 40 mg IV push twice daily and will address the Lasix dose on a daily basis. For now he definitely needs the Lasix and he needs close monitoring of his renal status, pulmonary status, daily x-rays of the chest, try to avoid reintubation on this patient as much as we can. Decision regarding his PEG tube is yet to be made next week, and if no one plans to place a PEG tube in this patient, we may have to consider transferring the patient to [facility] for PEG tube placement, apparently different consultants on the case declined PEG tube placement mostly because the patient had a cardiac arrest prior to his PEG tube placement last week. And he required intubation and mechanical ventilation. Definitely cleared the patient for PEG tube placement, and I am certain cardiology will clear him for PEG tube placementLabs today show WBC of 6.6 hemoglobin is 8 electrolytes are normal BUN 48 creatinine 2.46, baseline creatinine is in the range of 2.0 up to 2.5I's and O's were noted, patient remains in negative fluid balance for now. It was evaluated today on 05/10/2024, patient remains in the ICU, tolerated extubation for the last 3 days, doing quite well. Patient is hemodynamically stable, in no distress, on 2 L nasal cannula. Chest x-ray was done today, but his last chest x-ray showed improvement of his pulmonary edema with diuretics. WBC count is 7.7 hemoglobin 8.1 electrolytes are normal BUN is 52 creatinine 2.29, steadily improving over the last 3 days. Patient continues to have nasogastric tube in place receiving enteral feeding however the patient will eventually need a PEG tube and will try to get a cardiac clearance for PEG tube placement hopefully next week assuming gastroenterology or general surgery is willing to do that otherwise the patient may require transfer for PEG tube placement Objective - Vital Signs Vital signs: Vital Signs Temp 98.6 F 05/10/24 08:00 Pulse 101 H 05/10/24 10:00 Resp 14 05/10/24 10:00 BP 99/64 05/10/24 07:00 Pulse Ox 96 05/10/24 10:00 FiO2 4 05/08/24 04:00 Intake & Output 05/09/24 05/10/24 05/10/24 18:59 06:59 18:59 Intake Total 890 960 111 Output Total 1430 1260 215 Balance -540 -300 -104 Intake: IV 296 336 69 0.9 KVO 120 120 30 Lactated Ringers 1,000 ml 140 80 30 @ 20 mls/hr IV .Q24H MARY ANN Rx#:[id number] Piperacillin-Tazobactam 3 100 .375 gm In Sodium Chloride 0.9% 100 ml @ 25 mls/hr IVPB Q8HR MARY ANN Rx# :[id number] pressure bag 36 36 9 Tube Feeding 504 504 42 Other 90 120 Output: Urine 1430 1260 215 Other: Voiding Method Indwelling Catheter Indwelling Catheter ABP, PAP, CO, CI - Last Documented Arterial Blood Pressure 110/54 - Exam GENERAL EXAM: Reveals 63-year-old white male on 2 L nasal cannula, not in distress. HEAD: Normocephalic. EYES: Normal reaction of pupils, equal size. NOSE: Clear with pink turbinates. Nasogastric tube in place THROAT: No erythema or exudates. NECK: No masses, no JVD. CHEST: No chest wall deformity. LUNGS: Diminished breath sounds at the bases no crackles rhonchi or wheezes CVS: Regular rate and rhythm S1 and S2 normal with no audible murmur ABDOMEN: Soft nontender no megaly no rebound SKIN: No cyanosis CENTRAL NERVOUS SYSTEM: Awake, alert and oriented x 3, seems to be a bit slow EXTREMITIES: Right foot wrapped with sterile dressing - Labs CBC & Chem 7: 05/10/24 04:30 05/10/24 04:30 Labs: Abnormal Lab Results - Last 24 Hours (Table) 05/09/24 05/09/24 05/09/24 Range/Units 11:42 19:14 23:46 RBC (4.30-5.90) m/uL Hgb (13.0-17.5) gm/dL Hct (39.0-53.0) % MCV (80.0-100.0) fL MCHC (31.0-37.0) g/dL RDW (11.5-15.5) % Lymphocytes # (1.0-4.8) k/uL Macrocytosis Carbon Dioxide (22-30) mmol/L BUN (9-20) mg/dL Creatinine (0.66-1.25) mg/dL Glucose (74-99) mg/dL POC Glucose (mg/dL) 135 H 112 H 128 H (70-110) mg/dL Calcium (8.4-10.2) mg/dL AST (17-59) U/L Total Protein (6.3-8.2) g/dL Albumin (3.5-5.0) g/dL 05/10/24 05/10/24 05/10/24 Range/Units 04:30 04:30 05:21 RBC 2.63 L (4.30-5.90) m/uL Hgb 8.1 L (13.0-17.5) gm/dL Hct 27.4 L (39.0-53.0) % MCV 103.9 H (80.0-100.0) fL MCHC 29.7 L (31.0-37.0) g/dL RDW 22.0 H (11.5-15.5) % Lymphocytes # 0.7 L (1.0-4.8) k/uL Macrocytosis Marked A Carbon Dioxide 32 H (22-30) mmol/L BUN 52 H (9-20) mg/dL Creatinine 2.29 H (0.66-1.25) mg/dL Glucose 115 H (74-99) mg/dL POC Glucose (mg/dL) 113 H (70-110) mg/dL Calcium 8.3 L (8.4-10.2) mg/dL AST 75 H (17-59) U/L Total Protein 5.5 L (6.3-8.2) g/dL Albumin 2.8 L (3.5-5.0) g/dL Microbiology - Last 24 Hours (Table) 05/06/24 12:11 Gram Stain - Final Sputum Sputum Culture - Final Escherichia coli Assessment and Plan Assessment: Impression: Cardiac arrest requiring intubation mechanical ventilation patient had cardiac arrest before even having EGD/PEG tube placement according to the notes from surgery. 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, being addressed by infectious disease on the case, remains on Zosyn Acute on chronic stage IV kidney disease Acute blood loss anemia requiring 5 units of blood transfusion Electrolytes imbalance secondary to acute on chronic kidney disease Peripheral vessel occlusive disease and previous stenting of right SFA and right popliteal artery Severe pulmonary hypertension Paroxysmal atrial fibrillation, on anticoagulation therapy History of CVA with residual dysphagia requiring PEG tube placement Type 2 diabetes Cellulitis of right foot/diabetic foot ulcer Recommendation: Transfer patient to a monitored bed and selective Continue antibiotics as per infectious disease on the case Continue nutritional enteral feeding via nasogastric tube, will eventually need PEG tube placement and I have cleared him for a PEG tube placement, needs cardiac clearance, and then will reconsult gastroenterology for PEG tube placement Continue anticoagulation therapy for his A-fib, remains on heparin continue on heparin until a final decision is made regarding PEG tube placement Continue GI prophylaxis Continue Lasix 40 mg IV push twice daily Continue to monitor renal status closely Will continue to follow Time with Patient: Less than 30
--- NOTE | 2024-05-10 12:20 | P.PN ---
Subjective Patient is seen for follow-up for acute kidney injury and chronic kidney disease. Status post cardiac arrest on 05/04/2024 prior to surgery for PEG tube placement. Patient has been extubated and doing well. He is currently being diuresed for volume overload. Renal function has been fairly stable with some fluctuation related to diuresis.. UOP at 50-100 mL an hour Objective - Vital Signs Vital signs: Vital Signs Temp 98.6 F 05/10/24 08:00 Pulse 95 05/10/24 11:38 Resp 14 05/10/24 10:00 BP 99/64 05/10/24 07:00 Pulse Ox 96 05/10/24 10:00 FiO2 4 05/08/24 04:00 Intake & Output 05/09/24 05/10/24 05/10/24 18:59 06:59 18:59 Intake Total 890 960 111 Output Total 1430 1260 565 Balance -540 -300 -454 Intake: IV 296 336 69 0.9 KVO 120 120 30 Lactated Ringers 1,000 ml 140 80 30 @ 20 mls/hr IV .Q24H [facility] ANN Rx#:[id number] Piperacillin-Tazobactam 3 100 .375 gm In Sodium Chloride 0.9% 100 ml @ 25 mls/hr IVPB Q8HR MARY ANN Rx# :[id number] pressure bag 36 36 9 Tube Feeding 504 504 42 Other 90 120 Output: Urine 1430 1260 565 Other: Voiding Method Indwelling Catheter Indwelling Catheter Indwelling Catheter ABP, PAP, CO, CI - Last Documented Arterial Blood Pressure 110/54 - Exam patient is awake, comfortable, following commands Examination of the heart S1 and S2 Examination lungs bilateral breath sounds are heard, decreased breath sounds at the bases Abdomen is soft nontender Examination lower extremities shows no significant edema, right foot is wrapped - Labs CBC & Chem 7: 05/10/24 04:30 05/10/24 04:30 Labs: Abnormal Lab Results - Last 24 Hours (Table) 05/09/24 05/09/24 05/10/24 Range/Units 19:14 23:46 04:30 RBC 2.63 L (4.30-5.90) m/uL Hgb 8.1 L (13.0-17.5) gm/dL Hct 27.4 L (39.0-53.0) % MCV 103.9 H (80.0-100.0) fL MCHC 29.7 L (31.0-37.0) g/dL RDW 22.0 H (11.5-15.5) % Lymphocytes # 0.7 L (1.0-4.8) k/uL Macrocytosis Marked A Carbon Dioxide (22-30) mmol/L BUN (9-20) mg/dL Creatinine (0.66-1.25) mg/dL Glucose (74-99) mg/dL POC Glucose (mg/dL) 112 H 128 H (70-110) mg/dL Calcium (8.4-10.2) mg/dL AST (17-59) U/L Total Protein (6.3-8.2) g/dL Albumin (3.5-5.0) g/dL 05/10/24 05/10/24 Range/Units 04:30 05:21 RBC (4.30-5.90) m/uL Hgb (13.0-17.5) gm/dL Hct (39.0-53.0) % MCV (80.0-100.0) fL MCHC (31.0-37.0) g/dL RDW (11.5-15.5) % Lymphocytes # (1.0-4.8) k/uL Macrocytosis Carbon Dioxide 32 H (22-30) mmol/L BUN 52 H (9-20) mg/dL Creatinine 2.29 H (0.66-1.25) mg/dL Glucose 115 H (74-99) mg/dL POC Glucose (mg/dL) 113 H (70-110) mg/dL Calcium 8.3 L (8.4-10.2) mg/dL AST 75 H (17-59) U/L Total Protein 5.5 L (6.3-8.2) g/dL Albumin 2.8 L (3.5-5.0) g/dL Microbiology - Last 24 Hours (Table) 05/06/24 12:11 Gram Stain - Final Sputum Sputum Culture - Final Escherichia coli Assessment and Plan Assessment: 1. Acute kidney injury secondary to ATN secondary to acute blood loss anemia. serum creatinine staying around- 2.0 mg/dL. No hydronephrosis noted on kidney ultrasound. UA fairly benign. Currently being diuresed. 2. Chronic kidney disease stage IV baseline creatinine 1.8-2.0 secondary to solitary right kidney. History of left nephrectomy. 3. Chronic systolic CHF ejection fraction of 35 to 40% with severe pulmonary hypertension. 4. Diabetes mellitus. 5. Hypernatremia from lack of oral water intake. Improved. 6. Hyperkalemia secondary to acute kidney injury and GI bleed. Resolved. 7. Peripheral vascular disease. 8. Acute blood loss anemia. No active bleeding. Status post blood transfusions and IV DDAVP. Also on Aranesp. GI following. Plan: continue with current dose of Lasix. Repeat labs in a.m.
[2024-05-10 12:39] LABS: Glucose,Whole Blood 138 mg/dL (70-110)
--- NOTE | 2024-05-10 16:00 | P.PN ---
Subjective Progress Note Date: 05/10/24 Principal diagnosis: Reason for follow-up is right foot wound and cellulitis Patient is a 63-year-old male with a past medical history significant for diabetes mellitus hypertension hyperlipidemia pneumonia CVA TIA COPD patient did have a right big toe amputation done by and was recently admitted to the hospital concerning for pain to the right foot and cold feeling patient has been diagnosed with PAD and is s/p peripheral intervention by interventional cardiology with angioplasty of SFA and right popliteal arteries however unsuccessful angioplasty of the right anterior tibial artery patient presented to hospital with weakness hypoxemia. Patient apparently has pulled out his PEG tube and also developed A-fib with RVR for the patient was transferred to telemetry floor on 04/30/2024atient apparently did have a bradycardia arrhythmia/arrest at the time of PEG tube placement which was put on hold patient was intubated and has been transferred to the ICU on 05/04/2024. On today's evaluation that is 05/10/2024, the patient continues to be afebrile, the patient is on 3 L current oxygen and breathing comfortably, the Pt denies having any chest pain or cough, the patient denies having any abdominal pain no vomiting or any diarrhea has been reported by the nursing staff White count 7.7, creatinine is 2.29 Objective - Vital Signs Vital signs: Vital Signs Temp 98.6 F 05/10/24 08:00 Pulse 93 05/10/24 15:35 Resp 14 05/10/24 10:00 BP 99/64 05/10/24 07:00 Pulse Ox 96 05/10/24 10:00 FiO2 4 05/08/24 04:00 Intake & Output 05/09/24 05/10/24 05/10/24 18:59 06:59 18:59 Intake Total 890 960 111 Output Total 1430 1260 565 Balance -870 -300 -396 Intake: IV 296 336 69 0.9 KVO 120 120 30 Lactated Ringers 1,000 ml 140 80 30 @ 20 mls/hr IV .Q24H MARY ANN Rx#:[id number] Piperacillin-Tazobactam 3 100 .375 gm In Sodium Chloride 0.9% 100 ml @ 25 mls/hr IVPB Q8HR MARY ANN Rx# :[id number] pressure bag 36 36 9 Tube Feeding 504 504 42 Other 90 120 Output: Urine 1430 1260 565 Other: Voiding Method Indwelling Catheter Indwelling Catheter Indwelling Catheter ABP, PAP, CO, CI - Last Documented Arterial Blood Pressure 110/54 - Exam GENERAL DESCRIPTION: Middle-age male lying in bed in no distress RESPIRATORY SYSTEM: Unlabored breathing , decreased breath sounds at bases HEART: S1 S2 regular rate and rhythm , ABDOMEN: Soft , no tenderness EXTREMITIES: Right foot wound wound is currently dressed - Labs CBC & Chem 7: 05/10/24 04:30 05/10/24 04:30 Labs: Abnormal Lab Results - Last 24 Hours (Table) 05/09/24 05/09/24 05/10/24 Range/Units 19:14 23:46 04:30 RBC 2.63 L (4.30-5.90) m/uL Hgb 8.1 L (13.0-17.5) gm/dL Hct 27.4 L (39.0-53.0) % MCV 103.9 H (80.0-100.0) fL MCHC 29.7 L (31.0-37.0) g/dL RDW 22.0 H (11.5-15.5) % Lymphocytes # 0.7 L (1.0-4.8) k/uL Macrocytosis Marked A Carbon Dioxide (22-30) mmol/L BUN (9-20) mg/dL Creatinine (0.66-1.25) mg/dL Glucose (74-99) mg/dL POC Glucose (mg/dL) 112 H 128 H (70-110) mg/dL Calcium (8.4-10.2) mg/dL AST (17-59) U/L Total Protein (6.3-8.2) g/dL Albumin (3.5-5.0) g/dL 05/10/24 05/10/24 05/10/24 Range/Units 04:30 05:21 12:38 RBC (4.30-5.90) m/uL Hgb (13.0-17.5) gm/dL Hct (39.0-53.0) % MCV (80.0-100.0) fL MCHC (31.0-37.0) g/dL RDW (11.5-15.5) % Lymphocytes # (1.0-4.8) k/uL Macrocytosis Carbon Dioxide 32 H (22-30) mmol/L BUN 52 H (9-20) mg/dL Creatinine 2.29 H (0.66-1.25) mg/dL Glucose 115 H (74-99) mg/dL POC Glucose (mg/dL) 113 H 138 H (70-110) mg/dL Calcium 8.3 L (8.4-10.2) mg/dL AST 75 H (17-59) U/L Total Protein 5.5 L (6.3-8.2) g/dL Albumin 2.8 L (3.5-5.0) g/dL Assessment and Plan (1) Cellulitis of right foot Current Visit: No Status: Acute Code(s): L03.115 - CELLULITIS OF RIGHT LOWER LIMB SNOMED Code(s): 82933432409991379 (2) Diabetic foot ulcer Current Visit: No Status: Acute Code(s): E11.621 - TYPE 2 DIABETES MELLITUS WITH FOOT ULCER; L97.509 - NON-PRESSURE CHRONIC ULCER OTH PRT UNSP FOOT W UNSP SEVERITY SNOMED Code(s): 261087379 Plan: 1patient presenting to the hospital mostly with generalized weakness low O2 sats possibly underlying cardiac etiology for the patient being managed by cardiology, patient also have a 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 2Local wound care to the right foot wound with the Medihoney followed by moist dressing change daily 3-patient did have significant change in his clinical condition as he did have a cardiopulmonary arrest requiring intubation has been admitted to the ICU, sputum has been requested and there was concern for possible aspiration which is c urrently growing E. coli that is sensitive to Zosyn but resistant to Unasyn we will keep the patient on Zosyn and monitor clinical course closely Dictation was produced using [employer] dictation software. please excuse any grammatical, word or spelling errors. Time with Patient: Less than 30
[2024-05-10 18:09] LABS: Glucose,Whole Blood 131 mg/dL (70-110)
[2024-05-10 23:20] LABS: Glucose,Whole Blood 119 mg/dL (70-110)
[2024-05-11 05:53] VITALS: BP 104/79; PULSE 101; RESP 17; TEMP 98.4
[2024-05-11 06:53] LABS: Glucose,Whole Blood 123 mg/dL (70-110)
[2024-05-11 06:57] LABS: Anisocytosis Moderate; Basophils % (A) 1 %; Eosinophils # (A) 0.8 k/uL (0-0.7); Eosinophils % (A) 11 %; HCT 25.9 % (39.0-53.0); HGB 7.7 gm/dL (13.0-17.5); Hypochromasia Marked; Lymphocytes # (A) 0.8 k/uL (1.0-4.8); Lymphocytes % (A) 11 %; MCH 31.3 pg (25.0-35.0); MCHC 29.7 g/dL (31.0-37.0); MCV 105.6 fL (80.0-100.0); Macrocytosis Marked; Mean Platelet Volume 9.1; Monocytes # (A) 0.6 k/uL (0-1.0); Monocytes % (A) 8 %; Neutrophils # (A) 4.9 k/uL (1.3-7.7); Platelet Count 162 k/uL (150-450); Poikilocytosis Slight; RBC 2.46 m/uL (4.30-5.90); RDW 21.7 % (11.5-15.5); WBC 7.3 k/uL (3.8-10.6)
[2024-05-11 07:16] LABS: ALT 30 U/L (4-49); AST 43 U/L (17-59); African American GFR (CKD) 31 (>60 ml/min/1.73 sqM); Albumin 2.7 g/dL (3.5-5.0); Alkaline Phosphatase 65 U/L (38-126); Blood Urea Nitrogen 56 mg/dL (9-20); Calcium 8.3 mg/dL (8.4-10.2); Chloride 102 mmol/L (98-107); Glucose 112 mg/dL (74-99); Non-African American GFR(CKD) 27 (>60 ml/min/1.73 sqM); Potassium 3.8 mmol/L (3.5-5.1); Sodium 143 mmol/L (137-145); Total Bilirubin 0.6 mg/dL (0.2-1.3); Total Protein 5.5 g/dL (6.3-8.2)
[2024-05-11 07:43] LABS: Anion Gap 4 mmol/L; Carbon Dioxide 37 mmol/L (22-30)
[2024-05-11 11:58] LABS: Glucose,Whole Blood 130 mg/dL (70-110)
[2024-05-11 17:43] LABS: Glucose,Whole Blood 122 mg/dL (70-110)
[2024-05-11 23:36] LABS: Glucose,Whole Blood 122 mg/dL (70-110)
[2024-05-12] MEDS ORDERED: bisacodyL 10 MG SUPP RECTAL ONE (10:38)
[2024-05-12 11:55] LABS: Glucose,Whole Blood 94 mg/dL (70-110)
[2024-05-12 17:51] LABS: Glucose,Whole Blood 118 mg/dL (70-110)
[2024-05-13 00:06] LABS: Glucose,Whole Blood 111 mg/dL (70-110)
[2024-05-13 06:05] LABS: Glucose,Whole Blood 104 mg/dL (70-110)
[2024-05-13 11:59] LABS: Glucose,Whole Blood 95 mg/dL (70-110)
[2024-05-13] MEDS ORDERED: ETOMIDATE 2 MG/ML 10 ML VIAL ONE (14:20)
[2024-05-13 17:25] LABS: Glucose,Whole Blood 102 mg/dL (70-110)
[2024-05-13 23:42] LABS: Glucose,Whole Blood 85 mg/dL (70-110)
[2024-05-14 05:56] LABS: Glucose,Whole Blood 72 mg/dL (70-110)
[2024-05-14 12:09] LABS: Glucose,Whole Blood 127 mg/dL (70-110)
[2024-05-14 17:34] LABS: Glucose,Whole Blood 148 mg/dL (70-110)
[2024-05-14 23:11] LABS: Glucose,Whole Blood 110 mg/dL (70-110)
[2024-05-18] MEDS ORDERED: PANTOPRAZOLE 40 MG/10 ML VIAL ONE (08:23)
--- NOTE | 2024-06-03 08:38 | XR ---
EXAMINATION TYPE: XR chest 1V portable DATE OF EXAM: 06/03/2024 8:33 AM CLINICAL INDICATION: Male, 64 years old with history of SOB; [facility] COMPARISON: Chest radiographs from 05/08/2024 TECHNIQUE: XR chest 1V portable Frontal view of the chest. FINDINGS: Lungs/Pleura: No evidence of focal consolidation or pneumothorax. Blunting of the costophrenic angles is present. Pulmonary vascularity: Pulmonary vascular congestion. Heart/mediastinum: Cardiomediastinal silhouette is enlarged. Musculoskeletal: No acute osseous pathology. Other findings: None IMPRESSION: Cardiomegaly and mild pulmonary vascular congestion. Correlate with BNP for congestive heart failure.
--- NOTE | 2024-06-10 16:20 | CDI ---
Documentation Clarification Form Date: 06/10/2024 04:09:47 PM From: Marcela Ramirez Phone: Admit Date: 04/12/2024 06:42:00 PM Patient Name: Everett Juárez Visit Number: [id number] Discharge Date: 05/14/2024 08:24:00 PM ATTENTION: The Clinical Documentation Specialists (CDI) and [facility] Coding Staff appreciate your assistance in clarifying documentation. Please respond to the clarification below the line at the bottom and electronically sign. The CDI & [facility] Coding staff will review the response and follow-up if needed. Please note: Queries are made part of the Legal Health Record. If you have any questions, please contact the author of this message via ITS. Doctor/Provider: Artur Schilling There is documentation of right great toe is amputated with a largeulcerat the base of the amputated right great toeper Progress Notes. Additional specificity regarding the etiology and severity of the wound is requested. Patient history/risk factors: 68yo M, AHRF, NSTEMI II, DMII w CKD IV, cellulitis & PAD sp stenting, acute PHTN, HTN, HLD, ATN, ACSHF, ABLA, perm A Fib on anticoag/plat, Hx CVA w residuals, smoker Clinical Indicators: Largeulcerat the base of the right great toe with purulent discharge Treatment: maintained on oral Augmentin as outpatient, infectious disease consultation requested Please clarify the etiology and severity of the wound: Etiology: [ xxx] Non-pressure chronic ulcer due to diabetes [ ] Non-pressure chronic ulcer due to arterial insufficiency [ ] Non-pressure chronic ulcer due to non-healing amputation [ ] Other, Please specify [ ] Unable to determine Severity: [ xxx ] Limited to breakdown of skin [ ] With fat layer exposed [ ] Other, Please specify [ ] Unable to determine (Template Last Revised: December 2020) MTDD
== END 2024-05-14 20:24 | disposition expired ==
LOC: EC 15:55 → 4SSUR 18:42 → 3SCARD 19:17 → 4SSUR 04-17 21:53 → 3SCARD 04-29 15:56 → 2SICU 05-04 08:19
PROVIDERS: ADMIT Internal Medicine; ATTEND Internal Medicine
PROC: 3E0G76Z Introduction of Nutritional Substance into Upper GI, Via Natural or Artificial Opening (ICD-10-PCS; 2024-04-14)
PROC: 30233N1 Transfusion of Nonautologous Red Blood Cells into Peripheral Vein, Percutaneous Approach (ICD-10-PCS; 2024-04-21)
PROC: 0DJD8ZZ Inspection of Lower Intestinal Tract, Via Natural or Artificial Opening Endoscopic (ICD-10-PCS; 2024-04-24)
PROC: 0DJ08ZZ Inspection of Upper Intestinal Tract, Via Natural or Artificial Opening Endoscopic (ICD-10-PCS; 2024-04-24 15:50)
PROC: 02HV33Z Insertion of Infusion Device into Superior Vena Cava, Percutaneous Approach (ICD-10-PCS; 2024-05-01)
PROC: 5A12012 Performance of Cardiac Output, Single, Manual (ICD-10-PCS; 2024-05-04)
PROC: 3E033XZ Introduction of Vasopressor into Peripheral Vein, Percutaneous Approach (ICD-10-PCS; 2024-05-04)
PROC: 0BH18EZ Insertion of Endotracheal Airway into Trachea, Via Natural or Artificial Opening Endoscopic (ICD-10-PCS; 2024-05-04)
PROC: 03HY32Z Insertion of Monitoring Device into Upper Artery, Percutaneous Approach (ICD-10-PCS; 2024-05-04)
PROC: 4A133B1 Monitoring of Arterial Pressure, Peripheral, Percutaneous Approach (ICD-10-PCS; 2024-05-04)
PROC: 4A133J1 Monitoring of Arterial Pulse, Peripheral, Percutaneous Approach (ICD-10-PCS; 2024-05-04)
PROC: 5A1945Z Respiratory Ventilation, 24-96 Consecutive Hours (ICD-10-PCS; principal; 2024-05-04 07:50)
PROC: 3E0G76Z Introduction of Nutritional Substance into Upper GI, Via Natural or Artificial Opening (ICD-10-PCS; 2024-05-07)
PROC: 0DH63UZ Insertion of Feeding Device into Stomach, Percutaneous Approach (ICD-10-PCS; 2024-05-13)
PROC: 5A12012 Performance of Cardiac Output, Single, Manual (ICD-10-PCS; 2024-05-14)
DX: I13.0 Hypertensive heart and chronic kidney disease with heart failure and stage 1 through stage 4 chronic kidney disease, or unspecified chronic kidney disease (principal); I50.23 Acute on chronic systolic (congestive) heart failure; I21.A1 Myocardial infarction type 2; J96.01 Acute respiratory failure with hypoxia; N17.0 Acute kidney failure with tubular necrosis; J69.0 Pneumonitis due to inhalation of food and vomit; K55.21 Angiodysplasia of colon with hemorrhage; T85.528A Displacement of other gastrointestinal prosthetic devices, implants and grafts, initial encounter; E44.0 Moderate protein-calorie malnutrition; Z66 Do not resuscitate; D68.32 Hemorrhagic disorder due to extrinsic circulating anticoagulants; I48.21 Permanent atrial fibrillation; E87.0 Hyperosmolality and hypernatremia; L03.115 Cellulitis of right lower limb; D62 Acute posthemorrhagic anemia; I47.19 Other supraventricular tachycardia; Z16.39 Resistance to other specified antimicrobial drug; N18.4 Chronic kidney disease, stage 4 (severe); E11.621 Type 2 diabetes mellitus with foot ulcer; I42.9 Cardiomyopathy, unspecified; I46.8 Cardiac arrest due to other underlying condition; Z53.8 Procedure and treatment not carried out for other reasons; I27.20 Pulmonary hypertension, unspecified; E11.51 Type 2 diabetes mellitus with diabetic peripheral angiopathy without gangrene; J44.9 Chronic obstructive pulmonary disease, unspecified; L97.511 Non-pressure chronic ulcer of other part of right foot limited to breakdown of skin; G83.11 Monoplegia of lower limb affecting right dominant side; E11.22 Type 2 diabetes mellitus with diabetic chronic kidney disease; E11.69 Type 2 diabetes mellitus with other specified complication; Z89.421 Acquired absence of other right toe(s); Z89.411 Acquired absence of right great toe; D63.1 Anemia in chronic kidney disease; I95.9 Hypotension, unspecified; E66.9 Obesity, unspecified; I69.391 Dysphagia following cerebral infarction; K21.9 Gastro-esophageal reflux disease without esophagitis; B96.20 Unspecified Escherichia coli [E. coli] as the cause of diseases classified elsewhere; K63.5 Polyp of colon; I25.10 Atherosclerotic heart disease of native coronary artery without angina pectoris; E78.5 Hyperlipidemia, unspecified; F17.210 Nicotine dependence, cigarettes, uncomplicated; E87.5 Hyperkalemia; H54.61 Unqualified visual loss, right eye, normal vision left eye; T45.515A Adverse effect of anticoagulants, initial encounter; T45.525A Adverse effect of antithrombotic drugs, initial encounter; Z79.01 Long term (current) use of anticoagulants; Y73.1 Therapeutic (nonsurgical) and rehabilitative gastroenterology and urology devices associated with adverse incidents; Z95.820 Peripheral vascular angioplasty status with implants and grafts; Z68.33 Body mass index [BMI] 33.0-33.9, adult; I69.398 Other sequelae of cerebral infarction; Z90.5 Acquired absence of kidney; Z95.5 Presence of coronary angioplasty implant and graft; Z79.02 Long term (current) use of antithrombotics/antiplatelets; Z79.899 Other long term (current) drug therapy; Z86.14 Personal history of Methicillin resistant Staphylococcus aureus infection; Z87.39 Personal history of other diseases of the musculoskeletal system and connective tissue
CPT/HCPCS: 36415; 36573; 36600; 43235; 45378; 71045; 71046; 74230; 76604; 76770; 78582; 80048; 80053; 81003; 82272; 82330; 82607; 82728; 82746; 82805; 83010; 83540; 83550; 83605; 83735; 83880; 84100; 84132; 84478; 84484; 85025; 85045; 85379; 85610; 85730; 86850; 86900; 86901; 86920; 87070; 87075; 87077; 87186; 87205; 93005; 93306; 94003; 94640; 94660; 94760; 96374; 99285